=== PATIENT | female | born 1990 | race Caucasian/White ===

== ENCOUNTER 2018-06-21 13:10 | Emergency (ER) | payer SELFPAY ==
[2018-06-21 13:10] VITALS: BP 113/72; PULSE 82; RESP 14; TEMP 36.6; O2SAT 97; BMI 22.8
--- NOTE | 2018-06-21 13:47 | CT_ITS ---
STUDY: CT ABDOMEN AND PELVIS WITH CONTRAST REASON FOR EXAM: Female, 28 years old. Right lower quadrant pain, nausea, and vomiting x1 day RADIATION DOSAGE (If Supplied By Facility): CTDIvol = ( 9.68 ) mGy, DLP = ( 457.50 ) mGycm TECHNIQUE: Transaxial images were obtained from the dome of the diaphragm to the symphysis pubis with oral contrast. 100mL ml of Isovue 300 contrast was administered. Sagittal and coronal images were reconstructed. Individualized dose optimization techniques were used for this CT. COMPARISON: None. FINDINGS: The visualized lung bases are unremarkable. The visualized portions of the heart are within normal limits. There is a subcentimeter low-attenuation focus of the left hepatic lobe most likely representing a cyst. Normal gallbladder and extrahepatic biliary system. Normal spleen. Normal pancreas. Normal bilateral adrenal glands. Normal right kidney. Normal left kidney. Normal visualized stomach. Normal small intestine. Normal colon. The appendix is visualized and appears normal. Normal abdominal aorta. Normal inferior vena cava. Normal retroperitoneum. Normal urinary bladder. There are bilateral ovarian follicular cysts. There is a tiny amount of free fluid in the deep right pelvis. There is a small umbilical hernia containing fat. Normal osseous structures. CT/Abdomen/Pelvis WITH Contrast IMPRESSION: 1. The appendix is normal. 2. There is a tiny amount of free fluid in the deep right pelvis. 3. There is a small fat-containing umbilical hernia. 4. There is a subcentimeter low-attenuation focus of the left hepatic lobe most slightly representing a cyst. Electronically Signed: Claudio Stubbs MD at 16:36 EDT , Service support ,
[2018-06-21] MEDS: 0.9% Normal Saline 1,000 ML 1000 ML IV (14:09)
[2018-06-21 14:14] LABS: Absolute Lymphocyte Count 2.14 X10^3/ul (0.83-4.51); Absolute Neutrophil Count 4.2 X10^3/uL (2.0-7.7); Basophil# 0.02 X10^3/uL; Basophil% 0.3 % (0-1); Eosinophil# 0.05 X10^3/uL; Eosinophils% 0.7 % (0-5); Hematocrit 42.1 % (37-47); Hemoglobin 14.2 g/dl (12.0-15.0); Lymphocyte # 2.14 X10^3/ul (4.0); Lymphocyte % 30.7 % (19-41); Mean Corp Hgb Conc 33.7 g/gl (32-36); Mean Corpuscular Hgb 29.5 pg (27.0-32.0); Mean Corpuscular Volume 87.5 fL (81-99); Mean Platelet Vol. 10.2 fl (6.2-12.0); Monocyte# 0.56 X10^3/uL; Neutrophil # 4.18 X10^3/uL (2.7-7.7); Neutrophil % 60.2 % (47-70); POSITIVE COUNT NO; POSITIVE DIFFERENTIAL NO; POSITIVE MORPHOLOGY NO; Platelet Count 211 K/mm3 (150-450); RBC Distribution Width CV 12.5 % (11.6-14.6); RBC Distribution Width SD 40.5 fl (35.1-43.9); Red Blood Count 4.81 M/mm3 (4.2-5.4)
[2018-06-21 14:24] LABS: Anion Gap 5 (5-15); BUN 10 mg/dL (7-18); BUN/Creat Ratio 14.2 RATIO (10-20); Chloride 106 mmol/L (98-107); EST Glomerular Filtration Rate 106 mL/min (>60); Est Glom Filt Rate - Afr Amer 128 mL/min (>60); Glucose 85 mg/dL (74-106); Potassium 3.9 mmol/L (3.5-5.1); Sodium Level 139 mmol/L (136-145)
[2018-06-21 14:29] LABS: Pregnancy, Serum, hCG Quali. NEGATIVE Negative (0-9 Nonpreg)
[2018-06-21 14:40] LABS: Bacteria 0 SEEN /hpf (None Seen); Red Blood Cells-Urine 0 SEEN /hpf (0-5); White Blood Cells 0 SEEN /hpf (0-5)
[2018-06-21 14:41] LABS: Color, Urine Yellow (Yellow); Glucose, Dipstick Normal (Normal); Ketone-Dipstick Negative (Negative); Leukocyte Esterase-Dipstick Negative /ul (Negative); Nitrite-Dipstick Negative (Negative); Occult Blood-Urine Negative /ul (Negative); Protein-Dipstick Negative (Negative); Specific Gravity, Urine 1.005 (1.002-1.030); Urine Bilirubin Dipstick Negative (Negative); Urine Clarity Clear (Clear); Urine Urobilinogen Normal (Normal)
[2018-06-21 14:46] LABS: Mucous, Urine RARE /hpf (<or=2+); Squamous Epithelial Cells - UA 0-5 SEEN /hpf (5-10)
--- NOTE | 2018-06-21 15:28 | ED.VISSUMM ---
- ER Visit Summary Date of Service: 06/21/18 Chief Complaint: Abdominal pain History of Present Illness: The patient is a [address] [facility] She reports that she has right lower quadrant abdominal pain that began yesterday. It is a sharp pain that is gradually gotten worse. It is 7 out of 10 at worst and 3 out of 10 currently. Is worsened by movement, laying on her stomach, or by position. Is relieved by pushing on it. She has had nausea without vomiting. No diarrhea. Her last bowel was today. No melena or hematochezia. No dysuria or frequency. Last menstrual period was June 01. No vaginal bleeding or discharge. Physical Examination: Vitals: Stable. Afebrile. General: Well-nourished and well-developed. Head: Normocephalic atraumatic. Neck: Supple, no lymphadenopathy. No JVD. Nontender. Cardiovascular: Regular rate and rhythm. No murmurs. Respiratory: No respiratory distress. Clear to auscultation bilaterally. Abdominal: Soft, moderate right lower quadrant tenderness to palpation, nondistended, normal bowel sounds. No guarding, rebound, or peritoneal signs. Back: Nontender. Extremities: Nontender, no edema. Skin: Normal color, no rash. Neurologic: Alert and oriented ?3. Cranial nerves II through XII are intact. Normal strength and sensation. Psych: Normal affect. Test Results: CBC is normal. Chem-7 is normal. UA is negative. test is negative. CT abdomen pelvis with p.o. and IV contrast shows normal appendix. There is a tiny amount of free fluid in the pelvis. Emergency Department Course and Treatment: Patient refused pain or nausea medications. She is resting comfortably. Treatment Plan: Patient will be discharged instructions follow-up her primary care physician 1-2 days if not improving. Return to the emergency department for any worsening symptoms. Disposition: To home in improved and stable condition. Impression: 1. Abdominal pain, uncertain cause. This note was generated with [employer] dictation software. It may contain incorrect words, spelling, and punctuation that were not noted in review of the chart prior to signing ED Disposition - Plan for ED Patient: Chief Complaint: Abd Pain Instructions: ED Abdominal Pain Unkn Cause Referrals: Chuckie Oropeza MD [Primary Care Provider] - 1-2 Days if not improving
[2018-06-21 17:03] VITALS: BP 124/80; PULSE 63; RESP 18; O2SAT 99
== END 2018-06-21 17:04 | disposition home or self-care (01) ==
PROVIDERS: Emergency Provider Emergency Medicine; Family Provider Family Medicine; PCP Family Medicine
DX: R10.31 Right lower quadrant pain (principal); R11.0 Nausea
CPT/HCPCS: 74177; 80048; 81001; 84703; 85025; 99283; J7030; Q9967; A4216

== ENCOUNTER 2018-07-29 17:06 | Emergency (ER) | payer SELFPAY ==
[2018-07-29 17:07] VITALS: BP 119/76; PULSE 92; RESP 14; TEMP 37; O2SAT 99; BMI 22.2
[2018-07-29 18:50] VITALS: PULSE 98; RESP 14
[2018-07-29] MEDS: Ipratropium/Albuterol Sulfate 3 ML AMPUL.NEB INHALATION (18:50)
--- NOTE | 2018-07-29 19:23 | ED.DCSUM_ITS ---
- ER Visit Summary Date of Service: 07/29/18 Chief Complaint: Sore throat and cough History of Present Illness: The patient is a [address] Oropeza. She reports she has sore throat and cough began 5 days ago. Cough is productive yellow sputum without blood. She has had subjective fever and chills. She reports her sore throat is mild now. She has right ear pain. She reports she has substernal chest pain with coughing and deep breaths that is 5 out of 10 now on 410 currently. She reports she has mild shortness of breath, but has not been wheezing. Reports she has had similar symptoms previously bronchitis. She reports the chest pain associated with that then was relieved by an inhaler and that she was not wheezing then either Physical Examination: Vitals: Stable. Afebrile. General: Well-nourished and well-developed. Head: Normocephalic atraumatic. HEENT: Serous effusion on the right. Left TM is normal. Posterior oropharyngeal erythema. No tonsillar enlargement or exudate. No peritonsillar abscess Neck: Supple, no lymphadenopathy. No JVD. Nontender. Cardiovascular: Regular rate and rhythm. No murmurs. Respiratory: No respiratory distress. Clear to auscultation bilaterally. Abdominal: Soft, nontender, nondistended, normal bowel sounds. No guarding, rebound, or peritoneal signs. Back: Nontender. Extremities: Nontender, no edema. Skin: Normal color, no rash. Neurologic: Alert and oriented ?3. Cranial nerves II through XII are intact. Normal strength and sensation. Psych: Normal affect. Test Results: Chest x-ray is normal Emergency Department Course and Treatment: Patient was treated albuterol and Atrovent aerosol. She has had significant relief from this. She states that her chest pain is much better. Treatment Plan: Patient will be discharged on albuterol MDI. Instructed follow- up Dr. Oropeza in 1 week if not improving. Return to the emergency department for any worsening symptoms. Disposition: To home in improved and stable condition. Impression: 1. URI. This note was generated with [employer] dictation software. It may contain incorrect words, spelling, and punctuation that were not noted in review of the chart prior to signing ED Disposition - Plan for ED Patient: Disposition: Home or Assisted Living Chief Complaint: Cough Instructions: ED Upper Resp Infec No Abx Tx Prescriptions: Albuterol Inhaler [Ventolin Hfa] 2 puff INHALATION Q4H PRN PRN #1 inhaler PRN Reason: Wheezing Referrals: Chuckie Oropeza MD [Primary Care Provider] - 1 Week if not improving
[2018-07-29 19:45] VITALS: BP 122/75; PULSE 90; RESP 14; O2SAT 98
== END 2018-07-29 19:55 | disposition home or self-care (01) ==
PROVIDERS: Emergency Provider Emergency Medicine; Family Provider Family Medicine; PCP Family Medicine
DX: J06.9 Acute upper respiratory infection, unspecified (principal); H92.01 Otalgia, right ear
CPT/HCPCS: 71046; 94640; 99282

== ENCOUNTER 2022-12-06 12:07 | Emergency (ER) | payer MEDICAID, SELFPAY ==
[2022-12-06 12:08] VITALS: BP 128/79; PULSE 101; RESP 16; TEMP 36.3; O2SAT 95; BMI 26.5
--- NOTE | 2022-12-06 12:32 | EDS_ITS ---
HPI History of Present Illness Chief Complaint: Dental Detail of Chief Complaint: Dental pain yesterday difficulty opening her mouth today Informant: patient Onset/Context/Timing Onset: Today and Yesterday Context: Sudden Onset Timing: Continuous Quality: Pain, jaw left side Location: Jaw left side Current Severity: Mild (Pain is mild to minimal. Now complains of swelling.) Maximum Severity: Moderate Worsened by: Denies sensitivity to cold or hot liquids Relieved by: NSAIDs and Topicals Associated Symptoms Assocated Symptom - Dental: jaw swelling, face swelling and other; Negative for fever, cold sensitivity or hot sensitivity Narrative Narrative: Patient is a 32-year-old woman with a [id number] and 4-month-old at home. She presents because of dental pain that started yesterday. She localizes pain to the left side of her jaw. She presents today because of difficulty speaking, swallowing and opening and closing her mouth. She complains of pain that she localizes submandibular region. She has not had drooling. She denies throat pain. She denies anterior posterior neck pain. There is no history of medic fever, heart murmur, mitral prolapse or being on immunosuppressive meds. She drove her self to the hospital. She has not noted a rash. Prior similar symptoms: No Recent Illness/Hospitalization: No PFSH PFSH Medical History no medical history no medical history Home Medications albuterol sulfate 90 mcg/actuation aerosol inhaler (Ventolin HFA) 2 puff inhalation Q4H PRN PRN Wheezing ##1 07/29/18 [Rx Last Taken Unknown] ibuprofen 600 mg tablet 600 mg PO Q6H PRN PRN pain #20 TABLETS 12/06/22 [Rx Last Taken Unknown] penicillin V potassium 250 mg tablet 500 mg PO 4X/DAY #28 tabs 12/06/22 [Rx Last Taken Unknown] Allergy/AdvReac Type Severity Reaction Status Date / Time No Known Allergies Allergy Verified 12/06/22 12:10 Social History (Updated 12/06/22 @ 12:[address] Mynor Rivers MD) household members: children Smoking Status: Never smoker substance use type: does not use ROS ROS ED Constitutional Constitutional ED: Denies chills, fever(s), subjective, sweats or weight loss Eyes Eyes: Denies blurry vision or change in vision ENT ENT ED: Reports other Details: Per HPI narrative ; Denies ear pain, rhinorrhea or sore throat Cardiovascular Cardiovascular: Denies chest pain or palpitations Respiratory/Chest Respiratory/Chest: Denies cough, dyspnea or dyspnea on exertion Gastrointestinal Gastrointestinal: Denies nausea or vomiting Musculoskeletal Musculoskeletal: Denies arthralgias, back pain, myalgias or neck pain Integumentary Denies abscess or rash Neurologic Neurologic: Denies headache(s) or paresthesias Hematologic/Lymphatic Hematologic/Lymphatic: Denies easy bleeding or easy bruising EXAM Physical Exam Const Vital Signs: 12/06/22 12:08 Temperature 97.3 F L Temperature Source Temporal Pulse Rate 101 H Respiratory Rate 16 Blood Pressure 128/79 H Blood Pressure Mean 95 Pulse Ox 95 Oxygen Delivery Method Room Air Positive well nourished and well developed General Appearance ED: well developed and NAD HEENT HEENT Narrative: Head is atraumatic normocephalic. Ears normal. Nares patent. Patient has evidence of dental caries. There is trismus. Unable to place my index finger between her incisors. There is tenderness over the left TMJ. There is a submandibular lymph node noted on the left. There is no drooling. The portion of the posterior pharynx that was visualized is normal. Face and Sinus: Negative for sinuses nontender Mouth ED: Yes lips normal, Yes tongue normal, Yes salivary gland normal, No mouth trauma and Yes oral and palatal mucosa abnormal Mouth: lips normal, tongue normal, salivary gland normal, No mouth trauma and oral and palatal mucosa abnormal Teeth and Gingiva: abnormal tooth and associated gingiva and caries; Negative for gingiva abnormal or teeth discoloration Eyes PERRL and EOMs intact bilaterally Eyes Narrative: There is no pain with movement of eyes. General Eye ED: Negative for pale conjunctiva or scleral icterus Neck no lymphadenopathy, supple and no JVD MDM MDM MDM Narrative Medical decision making narrative: Patient has trismus due to dental infection. There is no drooling. There is no inspiratory stridor. There is no concern clinically for Ludewig's angina. White count was obtained is unremarkable. Patient declined opiate analgesics. She was treated with IV Toradol and Unasyn. Patient is able to open her mouth much more than she was. She was reassessed at 1310. This was shortly after she got the pain medicine. She was reassessed at 1321. She states the pain is subsided but still present. She is able to open her mouth slightly more. She was reassessed at 1345. Patient is able to open her mouth and I am able to place 2 fingers between her incisors. Since there is no drooling there is no stridor there is no firmness submental area or floor the mouth we will discharged home with antibiotics and pain medicine. She was given dental sheet for follow-up. She also has did charge with prescription for clindamycin and NSAIDs and she has no contraindication. She is not presently breast-feeding. Lab Data Labs: Laboratory Results - last 24 hr 12/06/22 12:33 WBC 8.7 RBC 5.14 Hgb 14.7 Hct 44.6 MCV 86.8 MCH 28.6 MCHC 33.0 RDW Std Deviation 41.2 RDW Coeff of Lance 13.1 Plt Count 324 MPV 9.9 Immature Gran % (Auto) 0.600 Neut % (Auto) 74.7 H Lymph % (Auto) 18.6 L [place] % (Auto) 5.7 Eos % (Auto) 0.3 Baso % (Auto) 0.1 Absolute Neuts (auto) 6.5 Absolute Lymphs (auto) 1.62 Nucleated RBC % 0 Discharge Plan Triage Chief Complaint: Dental ED Provider: Mynor Rivers Dx/Rx/DC Orders Clinical Impression: Abscess, dental, Trismus, Dental caries extending into dentine Instructions: Dental Abscess Prescriptions: New ibuprofen 600 mg tablet 600 mg PO Q6H PRN PRN (Reason: pain) Qty: 20 0RF penicillin V potassium 250 mg tablet 500 mg PO 4X/DAY Qty: 28 0RF No Action albuterol sulfate [Ventolin HFA] 1 INHALER inhaler 2 puff inhalation Q4H PRN PRN (Reason: Wheezing) Qty: 1 0RF Primary Care Provider: Chuckie Oropeza Referrals: Chuckie Oropeza MD [Primary Care Provider] - Dentist,Your [STAFF PHYSICIAN] - 3-5 Days Activity Restrictions/Additional Instructions: If you have drooling, difficulty breathing return to the emergency department immediately Disposition Disposition: Home, Self Care
[2022-12-06] MEDS: Ketorolac 15 MG/ML Vial IV (12:39)
[2022-12-06 12:42] LABS: Absolute Lymphocyte Count 1.62 X10^3/uL (0.83-4.51); Absolute Neutrophil Count 6.5 X10^3/uL (2.0-7.7); Basophil# 0.01 X10^3/uL; Basophil% 0.1 % (0-1); Eosinophil# 0.03 X10^3/uL; Eosinophils% 0.3 % (0-5); Hematocrit 44.6 % (37-47); Hemoglobin 14.7 g/dL (12.0-15.0); Lymphocyte # 1.62 X10^3/ul (0.83-4.51); Lymphocyte % 18.6 % (19-41); Mean Corpuscular Hgb 28.6 pg (27.0-32.0); Mean Corpuscular Volume 86.8 fL (81-99); Mean Platelet Vol. 9.9 fl (6.2-12.0); Monocyte% 5.7 % (0-10); NRBC Flagged by Analyzer 0 % (0-5); Neutrophil # 6.52 X10^3/uL (2.7-7.7); Neutrophil % 74.7 % (47-70); Platelet Count 324 K/mm3 (150-450); RBC Distribution Width CV 13.1 % (11.6-14.6); RBC Distribution Width SD 41.2 fl (35.1-43.9); Red Blood Count 5.14 M/mm3 (4.2-5.4); White Blood Count 8.7 K/mm3 (4.4-11.0)
[2022-12-06 14:18] VITALS: RESP 14
== END 2022-12-06 14:18 | disposition home or self-care (01) ==
PROVIDERS: Emergency Provider Emergency Medicine; PCP Family Medicine; Visit Provider Emergency Medicine
DX: K04.7 Periapical abscess without sinus (principal); K02.9 Dental caries, unspecified; R68.84 Jaw pain; R47.9 Unspecified speech disturbances; R21 Rash and other nonspecific skin eruption; R25.2 Cramp and spasm
CPT/HCPCS: 85025; 96365; 96375; 99283; A4216; J0295

== ENCOUNTER 2025-03-10 06:12 | Emergency (ER) | payer MEDICAID, SELFPAY ==
[2025-03-10 06:13] VITALS: BP 121/76; PULSE 77; RESP 17; TEMP 36.6; O2SAT 99; BMI 32.0
[2025-03-10 06:33] LABS: Hematocrit 41.3 % (37-47); Mean Corp Hgb Conc 33.9 g/dL (32-36); Mean Corpuscular Hgb 29.7 pg (27.0-32.0); Mean Corpuscular Volume 87.5 fL (81-99); Mean Platelet Vol. 9.8 fl (6.2-12.0); POSITIVE COUNT YES; POSITIVE MORPHOLOGY YES; Platelet Count 299 K/mm3 (150-450); RBC Distribution Width CV 13.3 % (11.6-14.6); RBC Distribution Width SD 42.8 fl (35.1-43.9); Red Blood Count 4.72 M/mm3 (4.2-5.4); White Blood Count 11.2 K/mm3 (4.4-11.0)
[2025-03-10 06:34] LABS: Differential Indicated MANUAL DIFF
[2025-03-10] MEDS: Ketorolac 15 MG/ML Vial IV (06:40)
[2025-03-10 06:49] LABS: Anion Gap 11 (5-15); BUN 16 mg/dL (4-19); BUN/Creat Ratio 17.6 RATIO (10-20); CPK Total, Creatine Kinase 127 U/L (24-195); Calcium,Total 8.4 mg/dL (7.6-11.0); Carbon Dioxide 24.6 mmol/L (21.0-32.0); Chloride 103 mmol/L (98-108); EST Glomerular Filtration Rate 86 (>60); Estimated Creatinine Clearance 92.74 ml/min (50-250); Glucose 114 mg/dL (70-99); Magnesium 2.4 mg/dL (1.5-2.2); Potassium 3.5 mmol/L (3.3-5.1); Sodium Level 139 mmol/L (133-145)
--- NOTE | 2025-03-10 06:53 | EDS_ITS ---
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 Patient states she woke up and was having severe pain in her bilateral legs. She woke up at 3 AM. She states she could not walk and fell because the pain was so bad. She was the left leg is worse than the right. She denies any trauma or injury. She describes the pain as severe and crushing. She states it seems to start in her mid thighs bilaterally and work its way down. She is not sure if she has any swelling of her legs. She denies associated numbness. Denies any bowel or bladder incontinence. She denies any fever or chills. She states she moved to [place] yesterday the family. She is never any like this before. Did not take anything for symptoms prior arrival. No other complaints or concerns at this time. [facility] Medical History Bipolar disorder Gestational diabetes delivery delivered Breast abscess Home Medications ?Medication ?Instructions ?Recorded ?Last Taken ?Type albuterol sulfate 90 mcg/actuation 2 puff inhalation Q 4H PRN PRN 07/29/18 Unknown Rx aerosol inhaler (Ventolin HFA) Wheezing ##1 clonazepam 1 mg tablet 1 mg PO DAILY PRN anxiety Unknown History epinephrine 0.3 mg/0.3 mL ml IM 03/10/25 Unknown Histo ry injection, auto-injector escitalopram oxalate 20 mg tablet 20 mg PO DAILY 03/10 Unknown History famotidine 20 mg tablet 20 mg PO BID 03/10/25 Unknow n History lamotrigine 200 mg tablet 200 mg PO DAILY 03/10/25 Unk nown History risperidone 0.5 mg tablet 0.5 mg PO QHS 03/10/25 Unkno wn History Allergy/AdvReac Type Severity Reaction Status Date / Time cephalexin AdvReac Rash Verified 03/10/25 06:15 clindamycin AdvReac Rash Verified 03/10/25 06:15 doxycycline AdvReac Rash Verified 03/10/25 06:15 vancomycin AdvReac Rash Verified 03/10/25 06:15 Social History household members: children Smoking Status: Never smoker substance use type: does not use ROS ROS ED Constitutional Constitutional ED: Denies chills or fever(s) Respiratory/Chest Respiratory/Chest: Denies cough or dyspnea Gastrointestinal Gastrointestinal: Denies nausea or vomiting Musculoskeletal Musculoskeletal: Reports myalgias and other Details: Bilateral lower leg pain Integumentary Denies rash Neurologic Neurologic: Denies paresthesias or weakness Hematologic/Lymphatic Hematologic/Lymphatic: Denies easy bleeding or easy bruising EXAM Physical Exam Const Vital Signs: 03/10/25 06:13 Temperature 98 F Temperature Source Temporal Pulse Rate 77 Respiratory Rate 17 Blood Pressure 121/76 H Blood Pressure Mean 91 Pulse Ox 99 Oxygen Delivery Method Room Air Positive well nourished and well developed General Appearance ED: well developed and NAD HEENT Reports moist mucous membranes HEENT Narrative: No facial swelling present normocephalic and atraumatic Neck supple Chest Wall inspection of chest normal Resp normal respiratory effort and clear to auscultation bilaterally Cardio regular rate and regular rhythm GI non-tender and non-distended Extremity normal to inspection Extremity Narrative: Patient is no obvious deformity of the extremities. No swelling. 2+ DP pulses present. Able to wiggle her toes. Has difficulty with movement of the legs but states is because it is too painful. No rash appreciated. No palpable cords. No edema. Neuro oriented x3, moves all extremities and no sensory deficits noted Sensorium / Orientation: alert Deep Tendon Reflexes: Rt Patellar (L4): 2+ and Lt Patellar (L4): 1+ Deep Tendon Reflexes Back: Rt Patellar (L4): 2+ and Lt Patellar (L4): 1+ Plantar Reflex: Downgoing: bilateral Psych mental status grossly normal Mood & Affect: anxious Skin no wounds Skin Narrative: Multiple bruises on the upper arms consistent with prior IVs MDM MDM MDM Narrative Medical decision making narrative: Patient evaluated for severe lower extremity pain without any trauma. Her physical exam is relatively benign. She has had multiple frequent ER visits and hospitalizations at [facility] however they have been for allergic reactions (at this point it seems that there is suspicion that this is more chronic idiopathic urticaria and not true allergic reactions). Differential includes muscle skeletal pain, DVT, Electrolyte abnormality, rhabdomyolysis. Patient is given Toradol for pain as she has not take anything prior to arrival. Compartments are soft suspicion for compartment syndrome. She has good distal pulses and suspicion for acute vascular abnormality. She does not claim any associate abdominal pain or back pain. No cauda equina syndromes. She does not have any numbness or weakness low suspicion for Gullian [place] syndrome. On repeat evaluation patient states she still having pain but she does seem a bit more comfortable and is moving her legs more freely after the Toradol. Will give Tylenol. Given that she does not have an obvious cause of her pain I do not think opioids are indicated at this time. Will obtain venous duplex. Anticipate this is normal will ambulation trial the patient to be discharged home. Patiently signed out to oncoming physician pending ultrasound results and final disposition. Lab Data Attestation: I reviewed the patient's lab results. Labs: Laboratory Results - last 24 hr 03/10/25 06:20 WBC 11.2 H RBC 4.72 Hgb 14.0 Hct 41.3 MCV 87.5 MCH 29.7 MCHC 33.9 RDW Std Deviation 42.8 RDW Coeff of Lance 13.3 Plt Count 299 MPV 9.8 Neut % (Auto) Not Reportable Absolute Neuts (auto) 6.4 Absolute Lymphs (auto) 3.92 Total Counted 100 Neutrophils % (Manual) 54 Band Neutrophils % 3 Lymphocytes % (Manual) 35 Monocytes % (Manual) 6 Eosinophils % (Manual) 2 Platelet Estimate ADEQUATE RBC Morphology NORM C+C Sodium 139 Potassium 3.5 Chloride 103 Carbon Dioxide 24.6 Anion Gap 11 BUN 16 Creatinine 0.90 Estim Creat Clear Calc 92.74 Est GFR (MDRD) Non-Af 86 BUN/Creatinine Ratio 17.6 Glucose 114 H Calcium 8.4 Magnesium 2.4 H Total Creatine Kinase 127 Discharge Plan Triage Chief Complaint: Lower Extremity Injury ED Provider: Araseli Pruett Dx/Rx/DC Orders Clinical Impression: Bilateral lower extremity pain Prescriptions: No Action albuterol sulfate [Ventolin HFA] 1 INHALER inhaler 2 puff inhalation Q4H PRN PRN (Reason: Wheezing) Qty: 1 0RF lamotrigine 200 mg tablet 200 mg PO DAILY clonazepam 1 mg tablet 1 mg PO DAILY PRN (Reason: anxiety) famotidine 20 mg tablet 20 mg PO BID epinephrine 0.3 mg/0.3 mL auto-injector IM risperidone 0.5 mg tablet 0.5 mg PO QHS escitalopram oxalate 20 mg tablet 20 mg PO DAILY Primary Care Provider: Care Physician,No Primary Referrals: Care Physician,No Primary [Primary Care Provider] - Print Language: Thai
--- NOTE | 2025-03-10 07:02 | VDLE_ITS ---
Reason For Study Reason For Study: Bilateral leg pain RIGHT LEFT GSV is normal. GSV is normal. CFV is compressible, spontaneous, phasic, competent CFV is compressible, spontaneous, phasic, competent, and demonstrates normal augmentation. and demonstrates normal augmentation. FV is compressible, spontaneous, phasic, competent FV is compressible, spontaneous, phasic, competent and demonstrates normal augmentation. and demonstrates normal augmentation. POP V is compressible, spontaneous, phasic, competent POP V is compressible, spontaneous, phasic, competent and demonstrates normal augmentation. and demonstrates normal augmentation. T/P Trunk is compressible. T/P Trunk is compressible. PTV is compressible. PTV is compressible. RT PerV is compressible. LT PerV is compressible. Procedure This is a venous duplex using B-mode, color flow and spectral Doppler. Exam performed portable in ED. A preliminary report was called and/or faxed to Marisela BRADLEY. VL/Venous Duplex US - Ammon Extrem Interpretation Summary Deep veins of the lower extremities are bilaterally patent and compressible seg mentally. There is no evidence of deep vein thrombosis on either side. Valvular competence appears intact within the p roximal deep venous systems bilaterally. The great saphenous veins appear bilaterally patent and compressible segmentall y. Ordering Physician: Araseli Pruett Performed By: Korina Jain RVT
[2025-03-10 07:10] LABS: Eosinophil 2 % (0-5); Lymphocyte 35 % (19-41); Monocyte 6 % (0-10); Neutrophil-Band 3 % (0-5); Neutrophil-Segmented 54 % (47-70); Total Cells Counted 100 (MANUAL DIFF)
[2025-03-10 07:11] LABS: Absolute Neutrophil Count 6.4 X10^3/uL (2.0-7.7); Platelet Estimate ADEQUATE (ADEQ); Red Cell Morphology NORM C+C NORMAL (NORM C&C)
[2025-03-10 07:12] LABS: Absolute Lymphocyte Count 3.92 X10^3/uL (0.83-4.51)
[2025-03-10] MEDS: Acetaminophen 325 MG Tablet 650 MG PO (07:16)
[2025-03-10 08:13] VITALS: BP 100/50; PULSE 86; RESP 18; O2SAT 99
[2025-03-10 08:14] LABS: Erythrocyte Sedimentation Rate 8 mm/hr (0-30)
[2025-03-10 09:14] LABS: CRP 5.98 mg/L (0.0-3.0)
[2025-03-10 09:31] VITALS: BP 112/64; PULSE 75; RESP 16; TEMP 36.7; O2SAT 98
== END 2025-03-10 09:42 | disposition home or self-care (01) ==
PROVIDERS: Emergency Medicine; Emergency Provider Emergency Medicine; Visit Provider Emergency Medicine
DX: M79.661 Pain in right lower leg (principal); F31.9 Bipolar disorder, unspecified; M79.662 Pain in left lower leg; F41.9 Anxiety disorder, unspecified; Z79.899 Other long term (current) drug therapy
CPT/HCPCS: 80048; 82550; 83735; 85025; 85652; 86140; 93970; 96374; 99282; A4216

== ENCOUNTER 2025-09-27 05:18 | Emergency (ER) | payer MEDICAID, SELFPAY ==
[2025-09-27 05:19] VITALS: BP 137/79; PULSE 79; RESP 18; TEMP 36.4; O2SAT 98; BMI 37.6
--- NOTE | 2025-09-27 05:38 | EX.ED.DYSGE1 ---
HPI History of Present Illness Chief Complaint: Edema Informant: patient Narrative Narrative: Patient is a 35-year-old female with past medical history of bipolar disorder. She states that she went to bed feeling normal and then awoke a few hours prior to arrival with right lower jaw swelling and pain. She denies any recent trauma. She denies any fevers or chills. She denies any change in voice or difficulty with secretions. However with the quick onset of swelling and pain she is concerned for potential infection or progression to closure of her airway so she presents for evaluation [facility] Medical History Bipolar disorder Gestational diabetes delivery delivered Breast abscess Home Medications ?Medication ?Instructions ?Recorded ?Last Taken ?Type epinephrine 0.3 mg/0.3 mL 0.3 ml IM PRN anaphylaxis 03/10/25 Unknown History injection, auto-injector escitalopram oxalate 20 mg tablet 20 mg PO DAILY 03/10/25 Unknown History lamotrigine 200 mg tablet 200 mg PO DAILY 03/10/25 Unknown History risperidone 0.5 mg tablet 0.5 mg PO QHS 03/10/25 Unknown History amoxicillin 875 mg-potassium 1 tab PO BID 7 days #14 tabs 09/27/25 Unknown Rx clavulanate 125 mg tablet divalproex 500 mg tablet,extended 2,000 mg PO QPM 09/27/25 Unknown History release 24 hr oxycodone-acetaminophen 5 mg-325 1 tab PO Q6H PRN pain 3 days #12 09/27/25 Unknown Rx mg tablet (Percocet) tabs Allergy/AdvReac Type Severity Reaction Status Date / Time cephalexin AdvReac Rash Verified 09/27/25 05:23 clindamycin AdvReac Rash Verified 09/27/25 05:23 doxycycline AdvReac Rash Verified 09/27/25 05:23 vancomycin AdvReac Rash Verified 09/27/25 05:23 Social History household members: children Smoking Status: Never smoker substance use type: does not use ROS ROS ED Constitutional Constitutional ED: Denies chills or fever(s) ENT ENT ED: Reports other Details: Positive right sided facial swelling and pain ; Denies sore throat Cardiovascular Cardiovascular: Denies chest pain Respiratory/Chest Respiratory/Chest: Denies cough or dyspnea Gastrointestinal Gastrointestinal: Denies abdominal pain, diarrhea, nausea or vomiting Musculoskeletal Musculoskeletal: Denies myalgias or neck pain Integumentary Denies rash Neurologic Neurologic: Denies headache(s) Psychiatric Psychiatric: Reports anxiety Hematologic/Lymphatic Hematologic/Lymphatic: Denies easy bleeding or easy bruising Allergic/Immunologic Allergic/Immunologic ED: Denies mouth swelling or tongue swelling EXAM Physical Exam Const Vital Signs: 09/27/25 05:19 09/27/25 05:23 09/27/25 05:49 Temperature 97.6 F L 97.8 F Temperature Source Oral Pulse Rate 79 72 Respiratory Rate 18 16 Respiratory Effort Normal Respiratory Pattern Normal Blood Pressure 137/79 H 115/71 Blood Pressure Mean 98 85 Pulse Ox 98 97 Oxygen Delivery Method Room Air Positive well nourished and well developed General Appearance ED: well developed; Negative for pallor HEENT HEENT Narrative: Normocephalic atraumatic There is soft tissue swelling along the right anterior lateral lower jaw near the salivary gland. There is pain with palpation at the site. No overlying erythema or warmth. No active discharge or lymphangitic streaking No tongue or lip swelling noted No trismus change in voice or difficulty with secretions No obvious dental abscess present No signs of ANUG Posterior pharynx reveals no secondary findings to suggest infection Eyes PERRL and EOMs intact bilaterally Neck supple Resp normal respiratory effort and clear to auscultation bilaterally Cardio regular rate and regular rhythm Extremity normal to inspection Neuro oriented x3, CN's II-XII intact bilaterally and no sensory deficits noted Sensorium / Orientation: alert Motor Exam: strength 5/5 throughout Psych mental status grossly normal Skin Skin Narrative: Soft tissue swelling in the right jaw/salivary gland region as documented above General Skin Exam: Negative for jaundice or pallor MDM MDM MDM Narrative Medical decision making narrative: Patient arrived to ER with stable vitals. She reported facial swelling and physical exam localizes it to the right lower jaw which could indicate potential developing abscess or sialoadenitis. She does not have tongue or lip swelling to suggest anaphylaxis or angioedema. Internal oral cavity exam reveals no signs of dental abscess there is no sign of posterior pharynx infection such as peritonsillar abscess or strep throat. She can swallow secretions without difficulty and has no change in voice and I have low concern for epiglottitis. At this time I feel she most likely has developing sialoadenitis there could be potential dental infection as well as she does have scant dental caries. I feel the safest option is to place her on Augmentin as this will cover both infectious sialoadenitis and early dental abscess. She will also be advised to suck on sour tart candies because if there is a stone causing obstruction of Stensen's duct this would cause the inflammation and salivary gland as well and will help resolve this. At this time over as there is no obvious signs of airway compromise or edema I do not feel she warrants a CT of the neck or laboratory studies and is otherwise safe for discharge History & Record Review Discussion w/independent historian: Patient Discharge Plan Triage Chief Complaint: Edema ED Provider: Kam Em Dx/Rx/DC Orders Clinical Impression: Acute sialoadenitis, Bipolar disorder Instructions: ED Salivary Gland Infection, ED Salivary Gland Stones Prescriptions: New amoxicillin-pot clavulanate 875-125 mg tablet 1 tab PO BID 7 Days Qty: 14 0RF oxycodone-acetaminophen [Percocet] 5-325 mg tablet 1 tab PO Q6H PRN (Reason: pain) 3 Days Qty: 12 0RF No Action lamotrigine 200 mg tablet 200 mg PO DAILY epinephrine 0.3 mg/0.3 mL auto-injector 0.3 ml IM PRN (Reason: anaphylaxis) risperidone 0.5 mg tablet 0.5 mg PO QHS escitalopram oxalate 20 mg tablet 20 mg PO DAILY divalproex 500 mg tablet extended release 24 hr 2,000 mg PO QPM Primary Care Provider: Care Physician,No Primary Referrals: Luis Lara MD [Med Staff - Active Staff, Family Practice] Care Physician,No Primary [Primary Care Provider, Medical] Activity Restrictions/Additional Instructions: Your history and exam indicate that your pain and swelling is due to either an infected or blocked salivary gland. Take the prescribed antibiotic as directed to help resolve any potential infection as the cause of your symptoms. Suck on tart sour candies to help remove/dislodge any potential stone causing your symptoms. Use the prescribed pain medication as directed for pain relief. Return to the ER should you have any further concerns or worsening of symptoms Print Language: Yi Disposition Disposition: Home, Self Care Discharge Date/Time: 09/27/25 05:52
[2025-09-27 05:49] VITALS: BP 115/71; PULSE 72; RESP 16; TEMP 36.6; O2SAT 97
== END 2025-09-27 05:52 | disposition home or self-care (01) ==
PROVIDERS: Emergency Provider Emergency Medicine; Visit Provider Emergency Medicine
DX: K11.21 Acute sialoadenitis (principal); F31.9 Bipolar disorder, unspecified; K02.9 Dental caries, unspecified; Z79.899 Other long term (current) drug therapy
CPT/HCPCS: 99283

== ENCOUNTER 2025-10-03 17:59 | Emergency (ER) | payer MEDICAID, SELFPAY ==
[2025-10-03 18:00] VITALS: BP 123/78; PULSE 105; RESP 16; TEMP 36.6; O2SAT 100; BMI 36.6
[2025-10-03 19:33] VITALS: BP 115/80; PULSE 93; RESP 16; TEMP 36.8; O2SAT 98
--- NOTE | 2025-10-03 19:33 | ED.VIS.DENTA ---
HPI History of Present Illness Chief Complaint: Dental Detail of Chief Complaint: Dental pain Informant: patient Narrative Narrative: Patient presents with right lower dental pain that she has had for several days. She was seen in the emergency department recently and started on Augmentin and something for pain. Initially she got better over the 2 days and then ran out of her pain medicine. The swelling that she felt in the back of her mouth returned. She also had vomiting and diarrhea for a couple of days and fever up to 102 at home. Patient has not followed up with a dentist. [facility] Medical History Bipolar disorder Gestational diabetes delivery delivered Breast abscess Home Medications Medication Instructions Recorded Last Taken Type epinephrine 0.3 mg/0.3 mL 0.3 ml IM PRN anaphylaxis 03/10/25 Unknown History injection, auto-injector escitalopram oxalate 20 mg tablet 20 mg PO DAILY 03/10/25 Unknown History lamotrigine 200 mg tablet 200 mg PO DAILY 03/10/25 Unknown History risperidone 0.5 mg tablet 0.5 mg PO QHS 03/10/25 Unknown History amoxicillin 875 mg-potassium 1 tab PO BID 7 days #14 tabs 09/27/25 Unknown Rx clavulanate 125 mg tablet divalproex 500 mg tablet,extended 2,000 mg PO QPM 09/27/25 Unknown History release 24 hr oxycodone-acetaminophen 5 mg-325 1 tab PO Q6H PRN pain 3 days #12 09/27/25 Unknown Rx mg tablet (Percocet) tabs hydrocodone-acetaminophen 5-325mg 1 tab PO Q4H PRN PRN Pain 2 days 10/03/25 Unknown Rx 5mg-325mg #14 TABLETS Allergy/AdvReac Type Severity Reaction Status Date / Time cephalexin AdvReac Rash Verified 10/03/25 18:01 clindamycin AdvReac Rash Verified 10/03/25 18:01 doxycycline AdvReac Rash Verified 10/03/25 18:01 vancomycin AdvReac Rash Verified 10/03/25 18:01 Social History household members: children Smoking Status: Never smoker substance use type: does not use ROS ROS ED Review of Systems ROS Unobtainable: other Constitutional Constitutional ED: Reports lethargy; Denies chills, fever(s), sweats or weight loss Eyes Eyes: Denies blurry vision, change in vision or diplopia ENT ENT ED: Reports other Details: Dental pain ; Denies rhinorrhea or sore throat Cardiovascular Cardiovascular: Denies chest pain, orthopnea or racing heartbeat Respiratory/Chest Respiratory/Chest: Denies cough, dyspnea, dyspnea on exertion, orthopnea or sputum Gastrointestinal Gastrointestinal: Denies abdominal pain, diarrhea, nausea or vomiting Genitourinary Genitourinary ED: Denies dysuria, hematuria or urinary frequency Musculoskeletal Musculoskeletal: Denies arthralgias, back pain, myalgias or neck pain Integumentary Denies abscess, Abrasions or rash Neurologic Neurologic: Denies headache(s) or weakness Psychiatric Psychiatric: Denies anxiety, depression or suicidal thoughts Endocrine Endocrinology: Denies polydipsia, polyphagia or polyuria Hematologic/Lymphatic Hematologic/Lymphatic: Denies easy bleeding, easy bruising or lymphadenopathy Allergic/Immunologic Allergic/Immunologic ED: Denies mouth swelling, tongue swelling or urticaria EXAM Physical Exam Const Vital Signs: 10/03/25 18:00 Temperature 97.8 F Temperature Source Oral Pulse Rate 105 H Respiratory Rate 16 Blood Pressure 123/78 H Blood Pressure Mean 93 Pulse Ox 100 Positive well nourished and well developed General Appearance ED: well developed and NAD HEENT Reports TM's clear and moist mucous membranes HEENT Narrative: Dentition-patient has tenderness palpation to tooth #36. Just beyond the molar there was some soft tissue swelling/inflammation between the upper and lower gingiva. This is not fluctuant and it is somewhat firm to palpation and irritated. I do not think this is an abscess but rather irritated mucosal tissue. No other dental abscess noted. She does have some tenderness to tooth #36. She has no facial cellulitis or trismus normocephalic and atraumatic; Negative for trauma or tenderness Tympanic Membrane ED: Yes TM's clear Eyes PERRL and EOMs intact bilaterally General Eye ED: Negative for pale conjunctiva or scleral icterus Neck no lymphadenopathy, supple and no JVD General: Negative for tenderness Chest Wall inspection of chest normal and palpation of chest normal Chest: Negative for tenderness Resp normal respiratory effort and clear to auscultation bilaterally Effort and Inspection: Negative for respiratory distress or pain with movement Auscultation: Negative for rhonchi, wheezes or diminished lung sounds Cardio regular rate, regular rhythm, S1 normal heart sound, S2 normal heart sound and no murmurs Peripheral Pulses: pulses 2+ throughout GI normal to inspection, nondistended, normoactive bowel sounds, soft to palpation, non-tender, non-distended and no masses Back/Spine no CVA tenderness and no thoracic nor lumbar tenderness Extremity normal to inspection General Extremety ED: Negative for edema General Extremity: Negative for edema Neuro oriented x3, CN's II-XII intact bilaterally, no sensory deficits noted and gait normal Sensorium / Orientation: awake, alert, oriented to person, oriented to place and oriented to time Motor Exam: strength 5/5 throughout and strength abnormal Psych mental status grossly normal Skin no rashes or lesions noted and no wounds MDM MDM MDM Narrative Medical decision making narrative: Patient presents with dental pain. Was concerned about an abscess. I do not appreciate 1 on exam. I recommend she continue with the antibiotic and I will write her prescription for [place] for pain. Advised her to follow-up with dentist for repeat evaluation within next 3 to 5 days. Discharge Plan Triage Chief Complaint: Dental ED Provider: Tamir Leon Dx/Rx/DC Orders Clinical Impression: Pain, dental Instructions: ED Dental Pain Prescriptions: New hydrocodone-acetaminophen 5-325 mg tablet 1 tab PO Q4H PRN PRN (Reason: Pain) 2 Days Qty: 14 0RF No Action lamotrigine 200 mg tablet 200 mg PO DAILY epinephrine 0.3 mg/0.3 mL auto-injector 0.3 ml IM PRN (Reason: anaphylaxis) risperidone 0.5 mg tablet 0.5 mg PO QHS escitalopram oxalate 20 mg tablet 20 mg PO DAILY divalproex 500 mg tablet extended release 24 hr 2,000 mg PO QPM amoxicillin-pot clavulanate 875-125 mg tablet 1 tab PO BID 7 Days Qty: 14 0RF oxycodone-acetaminophen [Percocet] 5-325 mg tablet 1 tab PO Q6H PRN (Reason: pain) 3 Days Qty: 12 0RF Primary Care Provider: Care Physician,No Primary Referrals: Care Physician,No Primary [Primary Care Provider, Medical] Activity Restrictions/Additional Instructions: Follow-up with a dentist within the next 3 to 5 days. Print Language: Telugu Disposition Disposition: Home, Self Care
[2025-10-03 19:43] VITALS: BP 115/80; PULSE 93; RESP 16; TEMP 36.8; O2SAT 98
[2025-10-03] MEDS: HYDROcodone Bitartrate/Apap 5/325 Tablet PO (19:46)
--- OUTSIDE RECORDS SUMMARY | 2025-10-03 19:47 | XMS RPT_ITS | CCD ---
Author Organization [facility] Care Team Providers Care Space Buyer Name Role Phone Required, No Pcp Unavailable Unavailable Rojelio Dao Unavailable Unavailable Primary Care Provider Unavailabl e Unavailable Primary Care Provider Unavailabl e Unavailable Primary Care Provider Unavailabl e Unavailable Primary Care Provider Unavailabl e Maile Beaver MD A Primary Care Provider Unavailable Primary Care Provider Unavailabl e Unavailable Primary Care Provider Unavailabl e Maile Beaver MD A Primary Care Provider [phone] Unavailable Primary Care Provider Unavailabl e Care Physician, No Primary Primary Care Provider Unavailable Dr. Araseli Babb DO Emergency Provider [phone] HANNAH THOMPSONRIA Referring Unavailable LUCAS, YAJAIRA Admitting Unavailable LUCAS, YAJAIRA Attending Unavailable PAVEL VAZQUEZINO Referring Unavailable GWENDOLYN MOHANNAD Admitting Unavailable ABBEY, DURAN Consulting Unavailable DELMI ROSENTHAL Attending Unavailable LEBRON GUDINO Referring Unavailable SIXTO KAPADIA Admitting Unavailable SUAD ANGLIN Attending Unavailable JAMEE, K Consulting Unavailable ADELFO VAZQUEZ Attending Unavailable ADELFO VAZQUEZ Attending Unavailable TRINITY KUMAR Attending Unavailable LOLITA DE DIOS Admitting Unavailable KLEB, CERISE A Primary Care Unavailable SELF Referring Unavailable KLEB, CERISE A Primary Care Unavailable KLEB, CERISE A Primary Care Unavailable DAKOTA GUZMAN Referring Unavailable JAJA MOSS Attending Unavailable KLEB, CERISE A Primary Care Unavailable KLEB, CERISE A Primary Care Unavailable ERICK SMITHIN Admitting Unavailable CRISTEL DOBBINS Attending Unavailabl e EDWARD, YO K Attending Unavailable ARASELI BABB Attending Unavailable CHUCKIE WATT Attending Unavailable SABINA SKINNER Attending UnavailDAKOTA Martinez Referring Unavailable JAJA MOSS Attending Unavailable JOSIE MEADOWS Attending Unavailable ADELFO VAZQUEZ Attending Unavailable SISSY FELTON Attending Unavailable STACY, TRINITY BROWN Referring Unavailable KLEB, CERISE A Primary Care Unavailable KLEB, CERISE A Primary Care Unavailable SELF Referring Unavailable TERENCE JOHNSON Attending Unavailable JOSIE JACK Attending Unavailable KLEB, CERISE A Primary Care Unavailable DAKOTA GUZMAN Referring Unavailable FROIMSON, JAJA Attending Unavailable KLEB, CERISE A Primary Care Unavailable SELF Referring Unavailable FROIMSON, JAJA Referring Unavailable SALAZAR MOSSHER Attending Unavailable TESSA GUERRERO Attending Unavailable EDWARD YO K Referring Unavailable EVERETT CRUZ Attending Unavailable LEON, YO K Referring Unavailable Care Physician, No Primary Primary Care Unava ilable Araseli Babb Attending Unavailable Kam Em Attending Unavailable Care Physician, No Primary Primary Care Unava ilable HERBERTH MONTANA Admitting Unavailable RUBÉNHERBERTH Attending Unavailable RUBÉN, KEVIN Consulting Unavailable Allergies Allergy Classification Reported Allergen(s) Allergy Type Date of Onset Reaction(s) Facility Adhesive Tape (2 sources) Adhesive Tape Substance Allergy 12-28-19 19 Itching, Rash [facility] Work Phone: Caffeine (1 source) Caffeine Drug Allergy 08-26-20 21 Rash [facility] Cetirizine (2 sources) Cetirizine Drug Allergy 02-17-20 19 Mental Status Change [facility] Work Phone: Chocolate (1 source) Chocolate Food Allergy 11-08-20 13 Rash [facility] Work Phone: Melatonin (1 source) Melatonin Drug Allergy 04-05-20 20 SOB [facility] Work Phone: Onion extract (1 source) Onion extract Drug Allergy 05-25-20 22 GI Upset [facility] Promethazine (2 sources) Promethazine Drug Allergy 05-15-20 18 GI Upset [facility] Work Phone: (20 sources) Adhesive Tape; Translations: [ADHESIVE TAPE (ROSINS)] Propensity to adverse reactions to substance 12-28-19 19 Rash, Itching [facility] Work Phone: (20 sources) Caffeine Drug Allergy 09-17-20 20 Rash [facility] (20 sources) Cetirizine; Translations: [CETIRIZINE HCL] Drug Allergy 02-17-20 19 Other: See Comments, Mental Status Change, Hives [facility] Work Phone: (20 sources) Chocolate Food Allergy 11-08-20 13 Rash [facility] Work Phone: [phone] (20 sources) Melatonin Drug Allergy 04-05-20 20 Shortness of Breath, SOB [facility] (20 sources) Promethazine; Translations: [PROMETHAZINE HCL] Drug Allergy 05-15-20 18 GI Upset [facility] Work Phone: (20 sources) Mosquitos; Translations: [MOSQUITOS] Allergy to substance 02-05-20 06 Swelling [facility] Work Phone: (20 sources) Sunscreen; Translations: [SUNSCREEN] Drug Allergy 11-13-20 15 Rash [facility] Work Phone: (20 sources) Onion extract; Translations: [ONION] Drug Allergy 05-25-20 22 GI Upset [facility] (20 sources) Adhesive Tape Propensity to adverse reactions to drug 12-28-19 19 Itching, Rash [facility] Work Phone: (20 sources) Adhesive Tapes Propensity to adverse reactions to drug 12-28-19 19 Itching, Rash [facility] Work Phone: (20 sources) Clindamycin; Translations: [CLINDAMYCIN] Drug Allergy 01-05-20 25 Hives, Rash [facility] Work Phone: (20 sources) Doxycycline; Translations: [DOXYCYCLINE] Drug Allergy 01-06-20 25 Hives, Rash [facility] (20 sources) Fluconazole; Translations: [FLUCONAZOLE] Drug Allergy 01-08-20 25 [facility] (20 sources) Vancomycin; Translations: [VANCOMYCIN] Drug Allergy 01-02-20 25 Itching, Rash [facility] (20 sources) Cephalexin; Translations: [CEPHALEXIN] Drug Allergy 02-28-20 Anaphylaxis, Rash [facility] Work Phone: (20 sources) Sulfamethoxazole / Trimethoprim; Translations: [SULFAMETHOXAZOLE-T RIMETHOPRIM] Drug Allergy 02-29-20 Hives [facility] (11 sources) Promethazine; Translations: [PROMETHAZINE] Drug Allergy 05-15-20 Unknown [facility] (20 sources) DAPTOmycin; Translations: [DAPTOMYCIN] Drug Allergy 05-15-20 Anaphylaxis [facility] Work Phone: (20 sources) meropenem; Translations: [MEROPENEM] Drug Allergy 05-16-20 Rash, Hives, Swelling, Itching, Angioedema [facility] (1 source) Cephalexin Drug Allergy 09-27-20 [facility] (1 source) Clindamycin Drug Allergy 09-27-20 [facility] (1 source) Doxycycline Drug Allergy 09-27-20 [facility] (1 source) Vancomycin Drug Allergy 09-27-20 [facility] Medications Current Medications Medication Drug Class(es) Dates Sig (Normalized) Sig (Original) acetaminophen 500 mg oral tablet (20 sources) Start: 11-09-2024 take 2 tablets by mouth every six hours as needed acetaminophen (TYLENOL) 500 mg tablet Take 2 tablets by mouth four times a day as needed for pain or fever (specify temp.). Do not exceed 8 tablets (4 grams) in a 24 hour period 50 tablet 11/09/2024 Suspended Start: 07-24-2022 End: 04-08-2025 acetaminophen (TYLENOL) 500 mg tablet 07/24/2022 Active Start: 07-24-2022 End: 10-28-2022 take 2 tablets by mouth every six hours as needed acetaminophen (TYLENOL) 500 mg tablet Take 2 tablets by mouth every 6 hours as needed for pain. 30 tablet 0 07/24/2022 10/28/2022 Discontinued End: 11-09-2024 take 2 tablets by mouth every six hours as needed acetaminophen (TYLENOL) 325 mg tablet Take 650 mg by mouth every 6 hours as needed. 11/09/2024 Discontinued (Course of therapy completed) Comment on above: Take 2 tablets by mo [facility] every 6 hours as needed for pain. [id number] actuat albuterol 0.09 mg/actuat metered dose inhaler (2 sources) beta2-Adrenergic Agonist Start: 07-29-2018 Albuterol Sulfate (Ventolin Hfa) 1 INHALER inhaler Active 2 NMA INHALATION EVERY 4 HOURS NEEDED as needed for Wheezing July 29, 2018 12:00am Start: 07-29-2018 take 1 puff(s) by in halation every four hours as needed Albuterol Sulfate (Ventolin Hfa) 1 INHALER inhaler Active 2 PUFF INHALATION EVERY 4 HOURS NEEDED July 28, 2018 11:00pm amoxicillin 875 mg / clavulanate 125 mg oral tablet (2 sources) Penicillin-class Antibacterial Start: 08-11-2024 End: 08-16-2024 take 1 tablet by mouth twice daily amoxicillin-clavulanate potassium (AUGMENTIN) 875-125 mg per tablet Take 1 tablet by mouth two times a day for 5 days. 10 tablet 08/11/2024 08/16/2024 Active Start: 07-01-2023 End: 07-11-2023 take 1 tablet by mouth twice daily amoxicillin-clavulanic acid (AUGMENTIN) 875-125 mg per tablet Indications: Bacterial sinusitis Take 1 tablet by mouth twice daily for 10 days. 20 tablet 0 07/01/2023 07/11/2023 Active Comment on above: Take 1 tablet by [place] twice daily for 10 days. benzoyl peroxide 0.05 mg/mg topical gel (20 sources) Start: 01-14-2025 End: 02-13-2025 benzoyl peroxide 5 % gel Apply to affected area once daily. Patient should start on January 14, 2025. 85 g 01/14/2025 Active Start: 01-13-2025 ACNE MEDICATIO N 5 % 01/13/2025 Active onabotulinumtoxina 200 unt injection (20 sources) Acetylcholine Release Inhibitor Start: 04-04-2024 onabotulinum toxin type A 200 Units injection (BOTOX) Start: 04-03-2024 onabotulinumto xinA (BOTOX) 200 unit solr injection Inject 200 Units into the skin Every 12 Weeks 04/03/2024 Active Start: 01-06-2024 End: 01-06-2024 onabotulinum toxin type A 20 0 Units injection (BOTOX) Start: 10-14-2023 End: 10-14-2023 onabotulinum toxin type A 20 0 Units injection (BOTOX) Start: 07-15-2023 End: 07-15-2023 onabotulinum toxin type A 20 0 Units injection (BOTOX) Comment on above: Inject 200 Units int o the skin Every 12 Weeks clonazePAM 1 mg oral tablet (20 sources) Benzodiazepine Start: End: take 1 tablet by mouth once daily as needed for anxiety clonazePAM (KLONOPIN) 1 mg tablet Indications: Panic attack , Generalized anxiety disorder with panic attacks Take 1 Tablet by mouth once daily as needed for anxiety 30 Tablet 02/20/2025 04/24/2025 Discontinued (Ineffective therapy) Comment on above: Take 1 Tablet by khalida th once daily as needed for anxiety cyproheptadine hydrochloride 4 mg oral tablet (9 sources) Start: take 1 tablet by mouth twice daily as needed cyproheptadine (PERIACTIN) 4 mg tablet Indications: Chronic migraine without aura, intractable, without status migrainosus Take 1 tablet by mouth two times a day as needed (migraine). 30 tablet 2 03/29/2025 Active doxylamine succinate 25 mg oral tablet (1 source) Start: End: take 1 tablet by mouth once daily at bedtime doxylamine (UNISOM, DOXYLAMINE,) 25 mg tab Take 1 tablet by mouth daily at bedtime. 30 tablet 2 12/31/2021 03/31/2022 Active Comment on above: Take 1 tablet by khalida th daily at bedtime. [id number] 0.3 ml EPINEPHrine 1 mg/ml auto-injector (20 sources) alpha-Adrenergic Agonist, beta-Adrenergic Agonist, Catecholamine Start: Epinephrine 0.3 mg/0.3 mL auto-injector Active mL IM March 10, 2025 12:00am Start: 03-03-2025 EPINEPHrine (E PIPEN 2-RICK) 0.3 mg/0.3 mL auto-injector Inject 0.3 mL intramuscularly as needed. 2 each 03/06/2025 Active Start: 2025 EPINEPHrine (E PIPEN) 0.3 mg/0.3 mL pen injector Inject 0.3 mg into the muscle 2025 Active Start: 2025 EPINEPHrine (E PIPEN) 0.3 mg/0.3 mL auto-injector Inject 0.3 mL intramuscularly as needed (for analphylactic reaction). 2 Each 2025 12:05 PM EST 2025 Active Comment on above: Inject 0.3 mg into t he muscle fluconazole 150 mg oral tablet (4 sources) Azole Antifungal Start: 10-24-2024 End: 10-24-2024 fluconazole (DIFLUCAN) 150 mg tablet Indications: Vaginal discharge Take 1 tablet by mouth one time only for 1 dose. Repeat dose in 72 hours if symptoms still exist 2 tablet 10/24/2024 10/24/2024 Active Start: 09-07-2024 End: 09-08-2024 take 1 tablet by mouth once fluconazole (DIFLUCAN) 150 mg tablet Indications: Candidal vaginitis Take 1 tablet by mouth one time only for 1 dose. 1 tablet 09/08/2024 09/08/2024 Active Start: 08-19-2024 End: 08-19-2024 take 1 tablet by mouth once fluconazole (DIFLUCAN) 150 mg tablet Indications: Itching in the vaginal area Take 1 tablet by mouth one time only for 1 dose. 1 tablet 08/19/2024 08/19/2024 Active fluticasone propionate 0.05 mg/actuat metered dose nasal spray (1 source) Corticosteroid Start: 01-06-2023 End: 01-16-2023 take 2 spray(s) nasal route once daily at bedtime fluticasone (FLONASE ALLERGY RELIEF) 50 mcg/actuation nasal spray Indications: Tinnitus of right ear , Hearing difficulty, bilateral , Fluid level behind tympanic membrane of both ears Use 2 Sprays in each nostril daily at bedtime for 10 days. 1 Each 0 01/06/2023 01/16/2023 Active Comment on above: Use 2 Sprays in each nostril daily at bedtime for 10 days. hydrocortisone 10 mg/ml / neomycin 3.5 mg/ml / polymyxin [id number] unt/ml otic suspension (3 sources) Aminoglycoside Antibacterial, Polymyxin-class Antibacterial, Corticosteroid Start: 09-29-2023 End: 10-09-2023 neomycin-polymyxin -HC (CORTISPORIN) 3.5-10,000-1 mg/mL-unit/mL-% otic suspension Place 3 Drops in ear(s) 3 (three) times a day 0 09/29/2023 10/09/2023 Active Comment on above: Use 3 Drops in the r ight ear three times a day for [address] 3 Drops in ear (s) 3 (three) times a day ibuprofen 800 mg oral tablet (20 sources) Nonsteroidal Anti-inflammatory Drug Start: 2025 take 1 tablet by mouth every eight hours as needed ibuprofen (MOTRIN) 800 mg tablet Take 1 tablet by mouth every 8 hours as needed for pain. 10 tablet 2025 12:05 PM EST 2025 Active Start: 09-20-2024 End: 09-20-2024 ibuprofen 600 mg tab(s) (MOT RIN) Start: 09-20-2024 End: 09-20-2024 take 1 dose by mouth once 600 mg, ORAL, ONCE, 1 dose, On Thu09/20/24 at 1600 Start: 12-28-2023 End: 07-04-2024 take 1 tablet by mouth every eight hours as needed ibuprofen (MOTRIN) 800 mg tablet Take 1 tablet by mouth every 8 hours as needed for pain. 10 tablet 2025 12:05 PM EST 2025 Active Start: 12-06-2022 End: 03-10-2025 take 1 tablet by mouth every six hours as needed for pain Ibuprofen 600 mg tablet Discontinued 600 mg PO EVERY 6 HOURS NEEDED as needed for pain December 06, 2022 1:00am March 10, 2025 6:23am Start: 07-24-2022 End: 10-28-2022 take 1 tablet by mouth every six hours as needed ibuprofen (MOTRIN) 600 mg tablet Take 1 tablet by mouth every 6 hours as needed for pain. 30 tablet 0 07/24/2022 10/28/2022 Discontinued Comment on above: Take 1 tablet by khalida th every 6 hours as needed for pain. Take 600 mg by mouth every 6 (six) hours as needed for pain Take 1 tablet by khalida th every 8 hours as needed for pain. Take 800 mg by mouth every 8 (eight) hours as needed ketorolac tromethamine 10 mg oral tablet (2 sources) Nonsteroidal Anti-inflammatory Drug, Cyclooxygenase Inhibitor Start: 06-09-20 End: 06-14-20 take 1 tablet by mouth four times daily at mealtime keTORolac (TORADOL) 10 mg tablet Take 1 tablet by mouth four times daily for 5 days. Take with food 20 tablet 0 06/09/2023 06/14/2023 Active Start: 10-28-2022 End: 11-02-2022 take 1 tablet by mouth four times daily at mealtime keTORolac (TORADOL) 10 mg tablet Take 1 tablet by mouth four times daily for 5 days. Take with food 20 tablet 0 10/28/2022 11/02/2022 Active Comment on above: Take 1 tablet by khalida th four times daily for 5 days. Take with food LORazepam 0.5 mg oral tablet (20 sources) Benzodiazepine Start: take 0.5 mg by mouth once daily as needed for anxiety LORazepam (ATIVAN) 1 mg tablet Indications: Generalized anxiety disorder Take 1 Tablet by mouth 1 (one) time as needed for anxiety for up to 10 doses After 10 doses, resume lorazepam 0.5mg daily as needed for anxiety 10 Tablet 01/09/2025 Active Start: 02-22-2024 take 1 tablet by khalida th every twenty-four hours as needed LORazepam (ATIVAN) 1 mg tablet Take 1 mg by mouth at bedtime as needed (anxiety/panick attacks). 02/22/2024 Active Start: 02-22-2024 take 1 tablet by khalida th once daily as needed for anxiety LORazepam (ATIVAN) 0.5 mg Take 1 Tablet by mouth once daily as needed for anxiety 30 tablet 01/13/2025 Active Comment on above: Take 1 Tablet by khalida th once daily as needed for anxiety Take 1 Tablet by khalida th 1 (one) time as needed for anxiety for up to 10 doses After 10 doses, resume lorazepam 0.5mg daily as needed for anxiety methylPREDNISolone (1 source) Corticosteroid Start: 2023 End: 2023 methylPREDNISolone (MEDROL, RICK,) 4 mg Dose-Pack Take as instructed per package. 21 tablet 08/11/2024 08/17/2024 Active naproxen 500 mg oral tablet (1 source) Nonsteroidal Anti-inflammatory Drug Start: 2023 End: 2024 take 1 tablet by mouth every twelve hours as needed naproxen (NAPROSYN) 500 mg tablet Take 1 tablet by mouth two times a day as needed for pain for up to 14 days. Take with food. 28 tablet 11/09/2024 11/23/2024 Active nitrofurantoin, macrocrystals 25 mg / nitrofurantoin, monohydrate 75 mg oral capsule (8 sources) Nitrofuran Antibacterial Start: 2024 End: 2024 take 1 capsule by mouth twice daily nitrofurantoin, macrocrystal-monohydrat e, (MACROBID) 100 mg capsule Take 100 mg by mouth 2 (two) times daily. 03/28/2025 04/24/2025 Active Start: 09-29-2023 End: 10-04-2023 take 1 capsule by mouth twice daily nitrofurantoin monohydrate and macrocrystal (MACROBID) 100 mg capsule Indications: Recurrent UTI Take 1 capsule by mouth two times a day for 5 days. 10 capsule 0 09/29/2023 10/04/2023 Active Start: 07-14-2023 End: 07-19-2023 take 1 capsule by mouth twice daily nitrofurantoin monohydrate and macrocrystal (MACROBID) 100 mg capsule Indications: Dysuria Take 1 capsule by mouth twice daily for 5 days. 10 capsule 0 07/14/2023 07/19/2023 Active Start: 09-09-2022 End: 09-14-2022 take 1 capsule by mouth twice daily nitrofurantoin monohydrate and macrocrystal (MACROBID) 100 mg capsule Indications: UTI symptoms Take 1 capsule by mouth twice daily for 5 days. 10 capsule 0 09/09/2022 09/14/2022 Active Start: 05-25-2022 End: 06-01-2022 take 1 capsule by mouth twice daily nitrofurantoin monohydrate and macrocrystal (MACROBID) 100 mg capsule Take 1 capsule by mouth twice daily for 7 days. 14 capsule 0 05/25/2022 06/01/2022 Active Comment on above: Take [address] [facility] twice daily for 7 days. Take 1 capsule by mo [facility] twice daily for 5 days. Take 1 capsule by mo [facility] two times a day for 5 days. Take 100 mg by mouth 2 (two) times daily. ofloxacin 3 mg/ml otic solution (1 source) Quinolone Antimicrobial Start: 09-14-2023 End: 09-21-2023 ofloxacin (FLOXIN) 0.3 % otic solution Indications: Acute otitis externa of both ears, unspecified type Use 10 Drops in the right ear once daily for 7 days. 5 mL 0 09/14/2023 09/21/2023 Active Comment on above: Use 10 Drops in the right ear once daily for 7 days. perflutren lipid microspheres 1.3 mL in NaCl (PF) 0.9% 10 mL injection (DEFINITY) (5 sources) Start: 01-01-2021 End: 04-02-2022 perflutren lipid microspheres 1.3 mL in NaCl (PF) 0.9% 10 mL injection (DEFINITY) VITAMIN 27 mg iron- 0.8 mg tab (13 sources) Start: 12-03-2021 End: 04-27-2023 VITAMIN 27 mg iron- 0.8 mg tab Start: 12-03-2021 VITAM IN 27 mg iron- 0.8 mg tab prochlorperazine 10 mg oral tablet (11 sources) Phenothiazine Start: 03-03-2025 take 1 tablet by mouth every six hours as needed prochlorperazine (COMPAZINE) 10 mg tablet Take 1 tablet by mouth every 6 hours as needed for nausea/vomiting. 30 tablet 03/03/2025 12:08 PM EDT 03/03/2025 Active 125 ml sodium chloride 9 mg/ml prefilled syringe (5 sources) Start: 01-01-2021 End: 04-02-2022 sodium chloride 0.9 % (flush) 10 mL (BD POSIFLUSH) sulfamethoxazole 800 mg / trimethoprim 160 mg oral tablet (4 sources) Dihydrofolate Reductase Inhibitor Antibacterial, Sulfonamide Antimicrobial Start: 2025 End: 01-15-2025 take 1 tablet by mouth every twelve hours sulfamethoxazole-tri methoprim (BACTRIM DS) 800-160 mg per tablet Take 1 tablet by mouth every 12 hours for 8 days. 16 tablet 2025 12:05 PM EST 2025 01/15/2025 Active Start: 12-31-2024 End: 01-05-2025 take 1 tablet by mouth twice daily sulfamethoxazole-trimethoprim (BACTRIM D S) 800-160 mg per tablet Take 1 tablet by mouth two times a day for 5 days. 10 tablet 12/31/2024 01/05/2025 Active Start: 09-21-2021 End: 12-31-2021 take 1 tablet by mouth twice daily Bactrim DS 800 mg-160 mg oral tablet ; 1 60 milligram(s) orally 2 times a day Quantity: 20 Refills: 0 Ordered: 21-Sep-2021 Rojelio Dao Start: 21-Sep-2021 End: 31-Dec-2021 Generic Substitution Allowed Comments: Avoid prolonged or excessive exposure to direct and/or artificial sunlight while taking this medication.Finish all this medication unless otherwise directed by prescriber.Medication should be taken with plenty of water. Comment on above: Avoid prolonged or e xcessive exposure to direct and/or artificial sunlight while taking this medication.Finish all this medication unless otherwise directed by prescriber.Medication should be taken with plenty of water. terconazole 8 mg/ml vaginal cream (2 sources) Azole Antifungal Start: End: terconazole vaginal cream (TERAZOL) 0.8 % vaginal cream Indications: Acute vaginitis Use 1 applicator vaginally daily at bedtime for 3 days. 20 g 04/19/2025 04/22/2025 Active vitamin b6 50 mg oral tablet (1 source) Start: End: take 1 tablet by mouth once daily pyridoxine, vitamin B6, (VITAMIN B-6) 50 mg tablet Take 1 tablet by mouth once daily. 30 tablet 2 12/31/2021 03/31/2022 Active Comment on above: Take 1 tablet by khalida once daily. Completed/Discontinued Medications Medication Drug Class(es) Dates Sig (Normalized) Sig (Original) 120 actuat albuterol 0.1 mg/actuat / ipratropium bromide 0.02 mg/actuat inhalation spray (2 sources) Anticholinergic, beta2-Adrenergic Agonist Start: 11-09-2024 End: 12-20-2024 take 20-100 ug by inhalation every six hours as needed ipratropium 20 mcg-albuterol 100 mcg (COMBIVENT RESPIMAT) 20-100 mcg/actuation inhaler Inhale 1 Puff as instructed every 6 hours as needed for wheezing/shortness of breath. 1 Each 11/09/2024 12/20/2024 Discontinued amoxicillin 875 mg oral tablet (20 sources) Penicillin-class Antibacterial Start: 01-03-2023 End: 01-10-2023 take 1 tablet by mouth twice daily amoxicillin (AMOXIL) 875 mg tablet TAKE 1 TABLET BY MOUTH TWICE DAILY FOR 7 DAYS 01/03/2023 Active Comment on above: Take 1 tablet by khalida th twice daily for 7 days. TAKE 1 TABLET BY KHALIDA TH TWICE DAILY FOR 7 DAYS busPIRone hydrochloride 10 mg oral tablet (20 sources) Start: 04-27-2023 End: 11-30-2023 take 1 tablet by mouth twice daily busPIRone (BUSPAR) 10 mg tablet Indications: Generalized anxiety disorder Take 1 Tablet by mouth 2 (two) times daily 60 Tablet 1 08/24/2023 11/30/2023 Discontinued (Therapy completed/Not needed) Start: 04-17-2023 End: 10-14-2023 take 1 tablet by mouth every twelve hours busPIRone (BUSPAR) 5 mg tablet Take 1 tablet by mouth every 12 hours 6am/6pm. 0 04/17/2023 10/14/2023 Discontinued Start: 03-23-2023 End: 04-27-2023 take 1 tablet by mouth twice daily busPIRone (BUSPAR) 5 mg tablet Indications: Generalized anxiety disorder Take 1 Tablet by mouth twice a day 60 Tablet 1 04/27/2023 04/27/2023 Discontinued (Error) Start: 12-15-2022 End: 01-05-2023 take 1 tablet by mouth twice daily busPIRone (BUSPAR) 10 mg tablet Indications: Generalized anxiety disorder Take 1 Tablet by mouth 2 (two) times daily After completing 5 mg tabs 60 Tablet 0 12/15/2022 01/05/2023 Discontinued (Patient preference) Comment on above: Take 1 Tablet by khalida th 2 (two) times daily After completing 5 mg tabs Take 1 Tablet by khalida th twice a day Take 1 Tablet by khalida th 2 (two) times daily Take 1 tablet by khalida th every 12 hours 6am/6pm. cephalexin 500 mg oral capsule (2 sources) Cephalosporin Antibacterial Start: 02-15-20 End: 02-25-20 take 1 capsule by mouth four times daily cephalexin (KEFLEX) 500 mg capsule Take 500 mg by mouth 4 (four) times a day 02/14/2025 02/24/2025 Comment on above: Take 500 mg by mouth 4 (four) times a day cranberry fruit concentrate (CRAN-MAX ORAL) (10 sources) End: 01-01-20 take 2800 mg by mouth once daily cranberry fruit concentrate (CRAN-MAX ORAL) Take 2,800 mg by mouth once daily. 0 01/01/2024 Discontinued (Course of therapy completed) take 2800 mg by mouth once daily cranberry fruit concentrate (CRAN-MAX ORAL) Take 2,800 mg by mouth once daily. 0 Active Comment on above: Take 2,800 mg by khalida once daily. diphenhydrAMINE hydrochloride 50 mg oral capsule (11 sources) Histamine-1 Receptor Antagonist Start: 025 End: take 1 capsule by mouth every six hours as needed diphenhydrAMINE (BENADRYL) 50 mg capsule Take 1 capsule by mouth every 6 hours as needed for itching/rash. 03/06/2025 07/04/2025 Discontinued (Course of therapy completed) docusate sodium 100 mg oral capsule (10 sources) Start: End: take 2 capsules by mouth once daily at bedtime docusate sodium (COLACE) 100 mg capsule Take 2 capsules by mouth daily at bedtime. 30 capsule 0 07/24/2022 09/09/2022 Discontinued Start: 02-04-2022 End: 05-05-2022 take 1 capsule by mouth twice daily docusate sodium (COLACE) 100 mg capsule Take 1 capsule by mouth twice daily. 60 capsule 2 02/04/2022 05/05/2022 Active Comment on above: Take 1 capsule by mo [facility] twice daily. Take 2 capsules by m outh daily at bedtime. escitalopram 20 mg oral tablet (20 sources) Serotonin Reuptake Inhibitor Start: End: take 1 tablet by mouth once daily escitalopram (LEXAPRO) 20 mg tablet Indications: Obsessive-compulsive disorder, unspecified type , Generalized anxiety disorder with panic attacks Take 1 Tablet by mouth once daily. 30 Tablet 1 08/20/2025 Active Start: 01-30-2025 End: 02-27-2025 take 1.5 tablets by mouth once daily escitalopram (LEXAPRO) 10 mg tablet Indications: Generalized anxiety disorder with panic attacks Take 1.5 Tablets by mouth once daily 45 Tablet 1 01/30/2025 02/27/2025 Discontinued (Quantity/Dosage and/or Sig change) Start: 08-17-2024 End: 01-30-2025 take 1 tablet by mouth once daily escitalopram oxalate (LEXAPRO) 10 mg tablet Take 10 mg by mouth once daily. 08/17/2024 Active Start: 08-17-2024 End: 12-05-2024 take 1 tablet by mouth once daily escitalopram oxalate (LEXAPRO) 5 mg tablet Take 1 tablet by mouth once daily. 08/17/2024 Active Start: 08-02-2024 End: 08-19-2024 take 0.5 tablet by mouth once daily escitalopram oxalate (LEXAPRO) 5 mg tablet Take 0.5 tablets by mouth once daily. 08/02/2024 08/19/2024 Discontinued (Changing Therapy/Dosage Form) Start: 06-13-2024 take 0.5 tablet by m outh once daily escitalopram oxalate (LEXAPRO) 5 mg tablet Indications: Generalized anxiety disorder , Mixed obsessional thoughts and acts 1/2 tab po daily 30 Tablet 1 06/13/2024 Active Start: 06-02-2024 End: 06-13-2024 take 1 tablet by mouth once daily escitalopram (LEXAPRO) 10 mg tablet Indications: Generalized anxiety disorder Take 1 Tablet by mouth once daily 30 Tablet 06/02/2024 06/13/2024 Discontinued (Quantity/Dosage and/or Sig change) Start: 04-07-2024 take 1 tablet by khalida th once daily escitalopram oxalate (LEXAPRO) 10 mg tablet Indications: Generalized anxiety disorder Take 1 Tablet by mouth once daily 30 Tablet 1 04/07/2024 Active Start: 03-21-2024 take 1 tablet by khalida th once daily escitalopram oxalate (LEXAPRO) 5 mg tablet Indications: Generalized anxiety disorder Take 1 Tablet by mouth once daily 30 Tablet 1 03/21/2024 Active Comment on above: Take 1 Tablet by khalida th once daily 1/2 tab po daily 1 tab po daily Take 1 Tablet by khalida th once daily Start after taking 7.5 mg lexapro daily x 7 days. Take 1.5 Tablets by mouth once daily Take 1 Tablet by khalida th once daily. famotidine 20 mg oral tablet (12 sources) Histamine-2 Receptor Antagonist Start: 05-17-2025 End: 05-22-2025 take 1 tablet by mouth every twelve hours as needed famotidine (PEPCID) 20 mg tablet Take 1 tablet by mouth two times a day as needed (itching and rash) for up to 5 days. 10 tablet 05/17/2025 05/22/2025 Suspended Start: 03-03-2025 End: 04-19-2025 take 1 tablet by mouth twice daily famotidine (PEPCID) 20 mg tablet Take 1 tablet by mouth two times a day. 03/03/2025 04/19/2025 Discontinued (Course of therapy completed) Start: 2025 End: 01-30-2025 take 1 tablet by mouth twice daily famotidine (PEPCID) 20 mg tablet Take 20 mg by mouth twice a day 2025 01/30/2025 Comment on above: Take 20 mg by mouth twice a day fexofenadine hydrochloride 180 mg oral tablet (6 sources) Histamine-1 Receptor Antagonist Start: End: take 2 tablets by mouth twice daily fexofenadine (ARTHUR) 180 mg tablet Take 2 tablets by mouth two times a day. 03/03/2025 04/19/2025 Discontinued (Course of therapy completed) Start: 01-13-2025 End: 01-27-2025 take 2 tablets by mouth twice daily fexofenadine (ARTHUR) 180 mg tablet Take 2 tablets by mouth two times a day for 14 days. 56 tablet 01/13/2025 01/27/2025 Active hydrocortisone 25 mg/ml topical cream (20 sources) Corticosteroid Start: 01-13-2025 End: 02-12-2025 hydrocortisone 2.5 % cream 01/13/2025 Active hydrOXYzine hydrochloride 25 mg oral tablet (20 sources) Antihistamine Start: 04-24-2025 End: 06-19-2025 take 1 tablet by mouth three times daily as needed for anxiety hydrOXYzine HCL (ATARAX) 25 mg tablet Indications: Generalized anxiety disorder with panic attacks Take 1 Tablet by mouth 3 (three) times daily as needed for anxiety. 90 Tablet 06/19/2025 Active Start: 01-17-2025 End: 03-20-2025 take 1 tablet by mouth three times daily as needed for anxiety hydrOXYzine HCL (ATARAX) 25 mg tablet Indications: Generalized anxiety disorder Take 1 Tablet by mouth 3 (three) times daily as needed for anxiety 90 Tablet 01/17/2025 03/20/2025 Discontinued (Therapy completed/Not needed) Comment on above: Take 1 Tablet by khalida th 3 (three) times daily as needed for anxiety Take 1 Tablet by khalida th 3 (three) times daily as needed for anxiety. isopropyl alcohol 0.7 ml/ml medicated pad (19 sources) Start: 05-13-2022 alcohol swabs Use five times daily as per protocol by [facility] 150 Each 3 05/13/2022 Active Comment on above: Use five times daily as per protocol by [facility] lamoTRIgine 100 mg oral tablet (20 sources) Mood Stabilizer, Anti-epileptic Agent Start: 05-29-2025 End: 06-19-2025 take 0.5 tablet by mouth once daily lamoTRIgine (LAMICTAL) 100 mg tablet Indications: Bipolar disorder, rapid cycling (CMS & HHS-HCC) Take 0.5 Tablets by mouth once daily. 30 Tablet 05/29/2025 06/19/2025 Discontinued (Patient Stopped Taking) Start: 05-01-2025 End: 05-29-2025 take 1 tablet by mouth once daily lamoTRIgine (LAMICTAL) 100 mg tablet Indications: Bipolar disorder, rapid cycling (CMS & HHS-HCC) Take 1 Tablet by mouth once daily. 30 Tablet 05/01/2025 05/29/2025 Discontinued (Reorder (E-Cancel Not Sent)) Start: 03-07-2025 End: 05-01-2025 take 1 tablet by mouth once daily lamoTRIgine (LAMICTAL) 200 mg tablet Indications: Bipolar disorder in full remission, most recent episode unspecified type (HCC-CMS) Take 1 Tablet by mouth once daily. 30 Tablet 1 04/24/2025 05/01/2025 Discontinued (Quantity/Dosage and/or Sig change) Start: 02-14-2025 End: 02-27-2025 take 1 tablet by mouth once daily lamoTRIgine (LAMICTAL) 200 mg tablet Indications: Bipolar disorder in full remission, most recent episode unspecified type (HCC-CMS) Take 1 Tablet by mouth once daily 30 Tablet 02/14/2025 02/27/2025 Discontinued (Reorder (E-Cancel Not Sent)) Start: 02-14-2025 take 1 tablet by khalida th once daily lamoTRIgine (LAMICTAL) 200 mg tablet Indications: Bipolar disorder in full remission, most recent episode unspecified type (HCC-CMS) Take 1 Tablet by mouth once daily 30 Tablet 02/14/2025 Active Start: 02-14-2025 take 1 tablet by khalida th once daily lamoTRIgine (LAMICTAL) 200 mg tablet Indications: Bipolar disorder in full remission, most recent episode unspecified type (HCC-CMS) Take 1 Tablet by mouth once daily 30 Tablet 02/14/2025 Active Start: 02-14-2025 take 1 tablet by khalida th once daily lamoTRIgine (LAMICTAL) 200 mg tablet Indications: Bipolar disorder in full remission, most recent episode unspecified type (HCC-CMS) Take 1 Tablet by mouth once daily 30 Tablet 02/14/2025 Active Start: 02-14-2025 take 1 tablet by khalida th once daily lamoTRIgine (LAMICTAL) 200 mg tablet Indications: Bipolar disorder in full remission, most recent episode unspecified type (HCC-CMS) Take 1 Tablet by mouth once daily 30 Tablet 02/14/2025 Active Start: 08-02-2024 End: 01-30-2025 take 1 tablet by mouth once daily lamoTRIgine (LAMICTAL) 200 mg tablet Take 1 tablet by mouth once daily. 08/02/2024 Active Start: 04-21-2024 End: 06-13-2024 take 1 tablet by mouth once daily lamoTRIgine (LAMICTAL) 200 mg tablet Indications: Bipolar disorder in partial remission, most recent episode unspecified type (HCC-CMS) Take 1 Tablet by mouth once daily 30 Tablet 1 06/13/2024 Active Start: 03-19-2024 End: 03-21-2024 take 1 tablet by mouth once daily lamoTRIgine (LAMICTAL) 200 mg tablet Indications: Bipolar disorder in partial remission, most recent episode unspecified type (HCC-CMS) Take 1 Tablet by mouth once daily 30 Tablet 1 03/21/2024 Active Start: 03-19-2024 take 1 tablet by khalida th once daily lamoTRIgine (LAMICTAL) 200 mg tablet Indications: Bipolar disorder in partial remission, most recent episode unspecified type (HCC-CMS) Take 1 Tablet by mouth once daily 30 Tablet 03/19/2024 Active Start: 03-19-2024 take 1 tablet by khalida th once daily lamoTRIgine (LAMICTAL) 200 mg tablet Indications: Bipolar disorder in partial remission, most recent episode unspecified type (HCC-CMS) Take 1 Tablet by mouth once daily 30 Tablet 03/19/2024 Active Start: 03-19-2024 take 1 tablet by khalida th once daily lamoTRIgine (LAMICTAL) 200 mg tablet Indications: Bipolar disorder in partial remission, most recent episode unspecified type (HCC-CMS) Take 1 Tablet by mouth once daily 30 Tablet 03/19/2024 Active Start: 03-19-2024 take 1 tablet by khalida th once daily lamoTRIgine (LAMICTAL) 200 mg tablet Indications: Bipolar disorder in partial remission, most recent episode unspecified type (HCC-CMS) Take 1 Tablet by mouth once daily 30 Tablet 03/19/2024 Active Start: 02-17-2024 End: 02-22-2024 take 1 tablet by mouth once daily lamoTRIgine (LAMICTAL) 200 mg tablet Indications: Bipolar disorder in partial remission, most recent episode unspecified type (HCC-CMS) Take 1 Tablet by mouth once daily 30 Tablet 02/17/2024 02/22/2024 Discontinued (Reorder) Start: 12-07-2023 take 1 tablet by khalida th once daily lamoTRIgine (LAMICTAL) 200 mg tablet Indications: Bipolar disorder in partial remission, most recent episode unspecified type (HCC-CMS) Take 1 Tablet by mouth once daily 30 Tablet 1 12/07/2023 Active Start: 09-28-2023 End: 11-30-2023 take 1 tablet by mouth once daily lamoTRIgine (LAMICTAL) 200 mg tablet Indications: Bipolar disorder in partial remission, most recent episode unspecified type ([facility]-CMS) Take 1 Tablet by mouth once daily 30 Tablet 1 09/28/2023 11/30/2023 Discontinued (Reorder) Start: 07-24-2022 End: 08-19-2024 take 1 tablet by mouth once daily lamoTRIgine (LAMICTAL) 150 mg tablet Take 1 tablet by mouth once daily. 30 tablet 07/24/2022 08/19/2024 Discontinued (Changing Therapy/Dosage Form) Start: 04-25-2022 take 1 tablet by khalida th once daily lamoTRIgine (LAMICTAL) 150 mg tablet Take 150 mg by mouth once daily. 0 04/25/2022 Active Start: 05-07-2021 End: 06-03-2022 lamoTRIgine (LAMICTAL) 25 mg tablet Take 150 mg by mouth daily at bedtime. 0 05/07/2021 06/03/2022 Discontinued (Course of therapy completed) Comment on above: Take 150 mg by mouth daily at bedtime. Take 150 mg by mouth once daily. Take 1 tablet by khalida th once daily. Take 1 Tablet by khalida th once daily Take 0.5 Tablets by mouth once daily. levonorgestrel 0.256851 mg/hr intrauterine system (1 source) Progestin, Progestin-containing Intrauterine Device Start: 09-05-2022 End: 09-05-2022 levonorgestrel 20 mcg/24 hours (8 yrs) 52 mg 1 Each intrauterine device (MIRENA) Start: 09-05-2022 End: 09-05-2022 levonorgestrel 20 mcg/24 fred rs (8 yrs) 52 mg 1 Each intrauterine device (MIRENA) Lidocaine (1 source) Antiarrhythmic, Amide Local Anesthetic Start: 07-16-2022 End: 07-16-2022 lidocaine 10 mg/mL (1 %) 200 mg injection (XYLOCAINE) lithium carbonate 300 mg oral capsule (1 source) take 1 capsule by mouth twice daily lithium carbonate (ESKALITH) 300 mg capsule Take 300 mg by mouth twice daily. Stopped for 4 days 0 Active Comment on above: Take 300 mg by mouth twice daily. Stopped for 4 days lurasidone hydrochloride 40 mg oral tablet (1 source) Atypical Antipsychotic lurasidone (LATUDA) 40 mg tablet Take 40 mg by mouth. 0 Active Comment on above: Take 40 mg by mouth. methylcellulose 500 mg oral tablet (20 sources) Start: 01-27-2023 take 2 tablets by mouth every eight hours as needed methylcellulose, laxative, (CITRUCEL) 500 mg tab tab Take 1,000 mg by mouth every 8 (eight) hours as needed 01/27/2023 Active Start: 01-27-2023 End: 07-15-2023 take 2 tablets by mouth every eight hours as needed for constipation and constipation Methylcellulose, Laxative, (CITRUCEL) 500 mg tab Indications: Constipation, unspecified constipation type Take 2 tablets by mouth three times daily as needed. 100 tablet 2 01/27/2023 07/15/2023 Discontinued Comment on above: Take 2 tablets by mo [facility] three times daily as needed. Take 1,000 mg by khalida th every 8 (eight) hours as needed metroNIDAZOLE 500 mg oral tablet (10 sources) Nitroimidazole Antimicrobial Start: 04-20-20 End: 05-01-20 take 1 tablet by mouth twice daily metroNIDAZOLE (FLAGYL) 500 mg tablet Take 500 mg by mouth twice a day. 04/20/2025 05/01/2025 Start: 09-08-2024 End: 09-15-2024 take 1 tablet by mouth twice daily metroNIDAZOLE (FLAGYL) 500 mg tablet Indications: BV (bacterial vaginosis) Take 1 tablet by mouth two times a day for 7 days. Take after finished Flagyl. 14 tablet 09/08/2024 09/15/2024 Active Start: 05-27-2022 End: 06-01-2022 metroNIDAZOLE (METROGEL VAGI NAL) 0.75 % Vaginal Gel Use 1 Applicator vaginally daily at bedtime for 5 days. 70 g 0 05/27/2022 06/01/2022 Active Start: 04-17-2022 take 1 tablet by khalida th twice daily metroNIDAZOLE (FLAGYL) 500 mg tablet Take 1 tablet by mouth twice daily. for vaginosis. Do not drink alcohol while taking this medication 14 tablet 0 04/17/2022 Active Comment on above: Take 1 tablet by khalida th twice daily. for vaginosis. Do not drink alcohol while taking this medication Use 1 Applicator vag inally daily at bedtime for 5 days. Take 500 mg by mouth twice a day. omeprazole 20 mg delayed release oral capsule (20 sources) Proton Pump Inhibitor Start: 01-28-20 End: 06-13-20 take 1 capsule by mouth once daily omeprazole (PRILOSEC) [address] capsule Take 20 mg by mouth once daily 01/27/2023 06/13/2024 Discontinued (Therapy completed/Not needed) Comment on above: Take 1 capsule by mo [facility] once daily. Take 20 mg by mouth once daily ondansetron 4 mg disintegrating oral tablet (20 sources) Serotonin-3 Receptor Antagonist Start: 03-28-20 End: 04-04-20 take 1 tablet by mouth every six hours as needed for nausea and vomiting ondansetron ODT (ZOFRAN-ODT) 4 mg disintegrating tablet TAKE 1 TABLET BY MOUTH EVERY 6 HOURS NEEDED FOR NAUSEA AND VOMITING FOR UP TO 7 DAYS 03/28/2025 Active Start: 01-20-2025 End: 02-27-2025 take 1 tablet by mouth every six hours as needed for nausea and vomiting ondansetron ODT (ZOFRAN-ODT) 4 mg disintegrating tablet TAKE 1 TABLET BY MOUTH EVERY 6 HOURS NEEDED FOR NAUSEA AND VOMITING FOR UP TO 7 DAYS 01/20/2025 02/27/2025 Discontinued (Therapy completed/Not needed) Start: 01-15-2025 End: 02-27-2025 ondansetron HCL (ZOFRAN) 4 m g tablet 01/15/2025 02/27/2025 Discontinued (Therapy completed/Not needed) Start: 02-11-2024 End: 02-18-2024 take 1 tablet by mouth every six hours as needed ondansetron orally disintegrating (ZOFRAN ODT) 4 mg disintegrating tablet Take 1 tablet by mouth every 6 hours as needed for nausea/vomiting for up to 7 days. 12 tablet 0 02/11/2024 02/18/2024 Active Comment on above: Take 1 tablet by khalida every 6 hours as needed for nausea/vomiting for up to 7 days. TAKE 1 TABLET BY KHALIDA TH EVERY 6 HOURS NEEDED FOR NAUSEA AND VOMITING FOR UP TO 7 DAYS oxyCODONE hydrochloride 5 mg oral tablet (2 sources) Opioid Agonist Start: 05-17-20 End: 05-18-20 take 1 tablet by mouth every twelve hours oxyCODONE IR (ROXICODONE) 5 mg immediate release tablet Indications: Mastitis without abscess , Mastitis Take 1 tablet by mouth every 12 hours for 1 day. 2 tablet 05/17/2025 05/18/2025 Suspended penicillin v potassium 250 mg oral tablet (20 sources) Start: 12-06-19 End: 03-10-20 penicillin V potassium (VEETID) 250 mg tablet Take 500 mg by mouth 4 (four) times daily 12/06/2022 06/13/2024 Discontinued (Therapy completed/Not needed) Start: 12-06-2022 take 500 mg by mouth four times daily Penicillin V Potassium Active 500 MG PO 4 TIMES DAILY December 06, 2022 12:00am Comment on above: Take 500 mg by mouth 4 (four) times daily phenazopyridine hydrochloride 100 mg oral tablet (4 sources) Start: 05-25-20 End: 06-03-20 take 2 tablets by mouth every twelve hours as needed phenazopyridine (PYRIDIUM) 100 mg tablet Take 2 tablets by mouth twice daily as needed. 6 tablet 0 05/25/2022 06/03/2022 Discontinued (Course of therapy completed) Comment on above: Take [address] [facility] twice daily as needed. polyethylene glycol 3350 93078 mg powder for oral solution (2 sources) Osmotic Laxative Start: 05-18-20 End: 05-21-20 polyethylene glycol 3350 17 gram packet Take 1 packet by mouth once daily for 3 days. Dissolve dose in 4 - 8 ounces of liquid and take as directed. 3 packet 05/18/2025 05/21/2025 Suspended predniSONE 50 mg oral tablet (2 sources) Start: 03-04-20 End: 03-08-20 take 1 tablet by mouth once daily predniSONE (DELTASONE) 50 mg Take 1 tablet by mouth once daily for 4 doses. Patient should start on March 04, 2025. 4 tablet 03/03/2025 12:08 PM EDT 03/04/2025 03/08/2025 Suspended Start: 01-06-2023 End: 01-11-2023 take 2 tablets by mouth once daily predniSONE (DELTASONE) 20 mg tablet Indications: Tinnitus of right ear , Hearing difficulty, bilateral , Fluid level behind tympanic membrane of both ears Take 2 tablets by mouth once daily for 5 days. 10 tablet 0 01/06/2023 01/11/2023 Active Comment on above: Take 2 tablets by mo ut once daily for 5 days. [id number]-Fe- FA tab (20 sources) Start: 12-03-2021 End: 09-09-2022 take 1 tablet by mouth once daily Tfnhbjov-Qe-Rqi-Fe-FA tab Take 1 tablet by mouth once daily. 30 tablet 11 12/03/2021 09/09/2022 Discontinued Start: 12-03-2021 End: 12-03-2022 take 1 tablet by mouth once daily Jlreghyp-Mw-Lcq-Fe-FA tab Take 1 tablet by mouth once daily. 30 tablet 11 12/03/2021 12/03/2022 Active Comment on above: Take 1 tablet by khalida once daily. rimegepant 75 mg disintegrating oral tablet (20 sources) Start: 10-28-20 End: 09-27-20 24 rimegepant (NURTEC ODT) 75 mg TbDi Take 75 mg by mouth 10/28/2022 Active Comment on above: Take 1 tablet by khalida once daily as needed (migraine). Take 75 mg by mouth risperiDONE 3 mg oral tablet (20 sources) Atypical Antipsychotic Start: 05-22-20 End: 08-20-20 25 take 1 tablet by mouth once daily at bedtime risperiDONE (RISPERDAL) 3 mg tablet Indications: Obsessive-compulsiv e disorder, unspecified type Take 1 Tablet by mouth nightly at bedtime. 30 Tablet 1 08/20/2025 Active Start: 04-24-2025 End: 06-19-2025 take 1 tablet by mouth once daily as needed risperiDONE (RISPERDAL) 0.5 mg tablet Indications: Bipolar disorder, in partial remission, most recent episode hypomanic Take 1 Tablet by mouth once daily as needed for other reason (agitation). 30 Tablet 06/19/2025 Active Start: 03-20-2025 End: 05-29-2025 take 1 tablet by mouth twice daily risperiDONE (RISPERDAL) 3 mg tablet Indications: Bipolar disorder in full remission, most recent episode unspecified type (CMS & HHS-HCC) , Obsessive-compulsive disorder, unspecified type Take 1 Tablet by mouth 2 (two) times daily. 30 Tablet 1 04/24/2025 05/29/2025 Discontinued (Reorder (E-Cancel Not Sent)) Start: 03-07-2025 End: 03-20-2025 take 1 tablet by mouth once daily as needed risperiDONE (RISPERDAL) 0.5 mg tablet Indications: Bipolar disorder in full remission, most recent episode unspecified type (HCC-CMS) Take 1 Tablet by mouth once daily as needed for other reason (hypomanic symptoms) 30 Tablet 03/07/2025 03/20/2025 Discontinued (Therapy completed/Not needed) Start: 02-14-2025 End: 02-27-2025 take 1 tablet by mouth once daily as needed risperiDONE (RISPERDAL) 0.5 mg tablet Indications: Bipolar disorder in full remission, most recent episode unspecified type (HCC-CMS) Take 1 Tablet by mouth once daily as needed for other reason (hypomanic symptoms) 30 Tablet 02/14/2025 02/27/2025 Discontinued (Reorder (E-Cancel Not Sent)) Start: 02-14-2025 take 1 tablet by khalida th once daily as needed risperiDONE (RISPERDAL) 0.5 mg tablet Indications: Bipolar disorder in full remission, most recent episode unspecified type (HCC-CMS) Take 1 Tablet by mouth once daily as needed for other reason (hypomanic symptoms) 30 Tablet 02/14/2025 Active Start: 02-14-2025 take 1 tablet by khalida th once daily as needed risperiDONE (RISPERDAL) 0.5 mg tablet Indications: Bipolar disorder in full remission, most recent episode unspecified type (HCC-CMS) Take 1 Tablet by mouth once daily as needed for other reason (hypomanic symptoms) 30 Tablet 02/14/2025 Active Start: 02-14-2025 take 1 tablet by khalida th once daily as needed risperiDONE (RISPERDAL) 0.5 mg tablet Indications: Bipolar disorder in full remission, most recent episode unspecified type (HCC-CMS) Take 1 Tablet by mouth once daily as needed for other reason (hypomanic symptoms) 30 Tablet 02/14/2025 Active Start: 02-14-2025 take 1 tablet by khalida th once daily as needed risperiDONE (RISPERDAL) 0.5 mg tablet Indications: Bipolar disorder in full remission, most recent episode unspecified type (HCC-CMS) Take 1 Tablet by mouth once daily as needed for other reason (hypomanic symptoms) 30 Tablet 02/14/2025 Active Start: 08-02-2024 End: 05-22-2025 take 1 tablet by mouth once daily at bedtime risperiDONE (RISPERDAL) 0.5 mg tablet Take 0.5 mg by mouth daily at bedtime. 08/02/2024 05/22/2025 Discontinued Start: 04-21-2024 End: 05-22-2025 take 1 tablet by mouth once daily at bedtime risperiDONE (RISPERDAL) 2 mg tablet Take 2 mg by mouth daily at bedtime. 06/01/2024 05/22/2025 Discontinued Start: 04-21-2024 End: 06-13-2024 take 1 tablet by mouth once daily as needed risperiDONE (RISPERDAL) 0.5 mg tablet Indications: Bipolar disorder in partial remission, most recent episode unspecified type (HCC-CMS) Take 1 Tablet by mouth once daily as needed for other reason (hypomanic symptoms) 30 Tablet 1 06/13/2024 Active Start: 03-19-2024 take 1 tablet by khalida th once daily at bedtime risperiDONE (RISPERDAL) 2 mg tablet Indications: Bipolar disorder in partial remission, most recent episode unspecified type (HCC-CMS) Take 1 Tablet by mouth nightly at bedtime 30 Tablet 03/19/2024 Active Start: 03-19-2024 take 1 tablet by khalida th once daily at bedtime risperiDONE (RISPERDAL) 2 mg tablet Indications: Bipolar disorder in partial remission, most recent episode unspecified type (HCC-CMS) Take 1 Tablet by mouth nightly at bedtime 30 Tablet 03/19/2024 Active Start: 03-19-2024 take 1 tablet by khalida th once daily at bedtime risperiDONE (RISPERDAL) 2 mg tablet Indications: Bipolar disorder in partial remission, most recent episode unspecified type (HCC-CMS) Take 1 Tablet by mouth nightly at bedtime 30 Tablet 03/19/2024 Active Start: 03-19-2024 End: 03-21-2024 take 1 tablet by mouth once daily at bedtime risperiDONE (RISPERDAL) 0.5 mg tablet Indications: Bipolar disorder in partial remission, most recent episode unspecified type (HCC-CMS) Take 1 Tablet by mouth nightly at bedtime With 2 mg for total 2.5 mg dosage 30 Tablet 1 03/21/2024 Active Start: 03-19-2024 take 1 tablet by khalida th once daily at bedtime risperiDONE (RISPERDAL) 0.5 mg tablet Indications: Bipolar disorder in partial remission, most recent episode unspecified type (HCC-CMS) Take 1 Tablet by mouth nightly at bedtime With 2 mg for total 2.5 mg dosage 30 Tablet 03/19/2024 Active Start: 03-19-2024 take 1 tablet by khalida th once daily at bedtime risperiDONE (RISPERDAL) 0.5 mg tablet Indications: Bipolar disorder in partial remission, most recent episode unspecified type (HCC-CMS) Take 1 Tablet by mouth nightly at bedtime With 2 mg for total 2.5 mg dosage 30 Tablet 03/19/2024 Active Start: 03-19-2024 take 1 tablet by khalida th once daily at bedtime risperiDONE (RISPERDAL) 0.5 mg tablet Indications: Bipolar disorder in partial remission, most recent episode unspecified type (HCC-CMS) Take 1 Tablet by mouth nightly at bedtime With 2 mg for total 2.5 mg dosage 30 Tablet 03/19/2024 Active Start: 03-19-2024 take 1 tablet by khalida th once daily at bedtime risperiDONE (RISPERDAL) 0.5 mg tablet Indications: Bipolar disorder in partial remission, most recent episode unspecified type (HCC-CMS) Take 1 Tablet by mouth nightly at bedtime With 2 mg for total 2.5 mg dosage 30 Tablet 03/19/2024 Active Start: 03-19-2024 End: 03-21-2024 take 1 tablet by mouth once daily at bedtime risperiDONE (RISPERDAL) 2 mg tablet Indications: Bipolar disorder in partial remission, most recent episode unspecified type (HCC-CMS) Take 1 Tablet by mouth nightly at bedtime 30 Tablet 1 03/21/2024 Active Start: 03-19-2024 take 1 tablet by khalida th once daily at bedtime risperiDONE (RISPERDAL) 2 mg tablet Indications: Bipolar disorder in partial remission, most recent episode unspecified type (HCC-CMS) Take 1 Tablet by mouth nightly at bedtime 30 Tablet 03/19/2024 Active Start: 02-17-2024 End: 02-22-2024 take 1 tablet by mouth once daily at bedtime risperiDONE (RISPERDAL) 0.5 mg tablet Indications: Bipolar disorder in partial remission, most recent episode unspecified type (HCC-CMS) Take 1 Tablet by mouth nightly at bedtime With 2 mg for total 2.5 mg dosage 30 Tablet 02/17/2024 02/22/2024 Discontinued (Reorder) Start: 02-17-2024 End: 02-22-2024 take 1 tablet by mouth once daily at bedtime risperiDONE (RISPERDAL) 2 mg tablet Indications: Bipolar disorder in partial remission, most recent episode unspecified type (HCC-CMS) Take 1 Tablet by mouth nightly at bedtime 30 Tablet 02/17/2024 02/22/2024 Discontinued (Reorder) Start: 01-01-2024 take 1 tablet by khalida th once daily at bedtime risperiDONE (RISPERDAL) 0.5 mg tablet Indications: Bipolar disorder in partial remission, most recent episode unspecified type (HCC-CMS) Take 1 Tablet by mouth nightly at bedtime With 2 mg for total 2.5 mg dosage 30 Tablet 1 01/01/2024 Active Start: 12-07-2023 take 1 tablet by khalida th once daily at bedtime risperiDONE (RISPERDAL) 2 mg tablet Indications: Bipolar disorder in partial remission, most recent episode unspecified type (HCC-CMS) Take 1 Tablet by mouth nightly at bedtime 30 Tablet 1 12/07/2023 Active Start: 08-24-2023 End: 11-30-2023 take 1 tablet by mouth once daily at bedtime risperiDONE (RISPERDAL) 2 mg tablet Indications: Bipolar disorder in partial remission, most recent episode unspecified type (HCC-CMS) Take 1 Tablet by mouth nightly at bedtime 30 Tablet 1 09/28/2023 11/30/2023 Discontinued (Reorder) Start: 12-08-2022 End: 08-24-2023 take 1 tablet by mouth once daily at bedtime risperiDONE (RISPERDAL) 0.5 mg tablet Indications: Bipolar disorder in partial remission, most recent episode unspecified type (HCC-CMS) Take 1 Tablet by mouth nightly at bedtime 30 Tablet 1 07/06/2023 08/24/2023 Discontinued (Quantity/Dosage and/or Sig change) Start: 07-24-2022 End: 08-19-2024 take 1 tablet by mouth once daily at bedtime risperiDONE (RISPERDAL) 1 mg tablet Take 1 tablet by mouth daily at bedtime. 30 tablet 07/24/2022 08/19/2024 Discontinued (Changing Therapy/Dosage Form) Start: 01-20-2022 take 1 tablet by khalida th once daily at bedtime risperiDONE (RISPERDAL) 1 mg tablet Take 1 tablet by mouth daily at bedtime. 0 01/20/2022 Active Comment on above: Take 1 tablet by khalida th daily at bedtime. Take 1 Tablet by khalida th nightly at bedtime With a 0.5 mg tablet for total of 1.5 mg daily dose Take 1 Tablet by khalida th every evening Take 1 Tablet by khalida th every evening With 1 mg tablet for total 1.5 mg dose Take 1 Tablet by khalida th nightly at bedtime Take 1 Tablet by khalida th nightly at bedtime With 2 mg for total 2.5 mg dosage Take 1 Tablet by khalida th nightly at bedtime Take together with 0.5 mg for total 2.5 mg daily dosage Take 1 Tablet by khalida th once daily as needed for other reason (hypomanic symptoms) Take 1 Tablet by khalida th 2 (two) times daily Take 1 Tablet by khalida th once daily as needed for other reason (agitation). Take 1 Tablet by khalida th 2 (two) times daily. Take 1 Tablet by khalida th nightly at bedtime. rizatriptan 10 mg oral tablet (9 sources) Serotonin-1b and Serotonin-1d Receptor Agonist Start: 06-21-2025 rizatriptan (MAXALT) 10 mg tablet Take 10 mg by mouth. 06/21/2025 Active Comment on above: Take 10 mg by mouth. sennosides, nursing home 17.2 mg oral tablet (20 sources) Start: 04-17-2022 take 1 tablet by mouth once daily Sennosides (SENOKOT EXTRA STRENGTH) 17.2 mg tab Take 1 tablet by mouth once daily. 20 tablet 3 04/17/2022 Active Comment on above: Take 1 tablet by khalida th once daily. ubrogepant 100 mg oral tablet (20 sources) Start: 09-27-2024 ubrogepant (UBRELVY) 100 mg tab Take 100 mg by mouth 09/27/2024 Active Comment on above: Take 100 mg by mouth 24 hr divalproex sodium 500 mg extended release oral tablet (20 sources) Mood Stabilizer, Anti-epileptic Agent Start: 05-01-2025 End: 08-20-2025 take 3 tablets by mouth once daily in the evening divalproex (DEPAKOTE ER) 500 mg 24 hr tablet Indications: Bipolar disorder, in partial remission, most recent episode hypomanic Take 3 Tablets by mouth every evening. 90 Tablet 1 08/20/2025 Active Comment on above: Take 1 Tablet by khalida th once daily. Take 2 Tablets by mo uth every evening. Take 3 Tablets by mo uth every evening. Problems Active Problems Problem Classification Problem Date Documented Da te Episodic/Chronic Adjustment disorders (20 sources) Adjustment disorder with mixed anxiety and depressed mood; Translations: [Adjustment disorder with mixed anxiety and depressed mood] Onset: 04-29-2021 05-28-2021 Chronic Alcohol-related disorders (1 source) Current drinker; Translations: [Alcohol use] 08-20-2025 Chronic Anxiety disorders (20 sources) Panic disorder without agoraphobia; Translations: [Panic disorder [episodic paroxysmal anxiety]] Onset: 05-28-2021 05-28-2021 Chronic Diseases of mouth; excluding dental (1 source) Acute sialoadenitis; Translations: [Acute sialoadenitis] Onset: 09-27-2025 Episodic Disorders of teeth and jaw (4 sources) Dental caries extending into dentin; Translations: [Dental caries on smooth surface penetrating into dentin] 12-14-2022 Episodic Fracture of upper limb (11 sources) Closed fracture of shaft of fifth metacarpal bone; Translations: [Nondisplaced fracture of shaft of fifth metacarpal bone, left hand, initial encounter for closed fracture] 12-28-2023 Episodic Headache; including migraine (20 sources) Migraine without aura, not refractory ; Translations: [Migraine without aura, not intractable, without status migrainosus] Onset: 07-18-2019 04-16-2021 Chronic Inflammatory diseases of female pelvic organs (3 sources) Bacterial vaginosis; Translations: [Acute vaginitis] Onset: 04-19-2025 09-08-2024 Episodic Miscellaneous mental health disorders (1 source) Globus sensation; Translations: [Globus sensation] Onset: 03-08-2025 Chronic Mood disorders (20 sources) Mild mixed bipolar I disorder; Translations: [Bipolar disorder, current episode mixed, mild] Onset: 08-27-2015 04-16-2021 Chronic Mycoses (1 source) Candidiasis of vagina; Translations: [Candidal vaginitis] 09-08-2024 Episodic Nonspecific chest pain (1 source) Atypical chest pain; Translations: [Other chest pain] Episodic Open wounds of head; neck; and trunk (1 source) Puncture wound without foreign body of unspecified breast, initial encounter; Translations: [Infected pierced nipple] Onset: 05-11-2025 Episodic Other aftercare (4 sources) H/O: high risk medication; Translations: [Other mcc (current) drug therapy] 06-13-2024 Episodic Other and unspecified benign neoplasm (1 source) Benign neoplasm of soft tissue; Translations: [Melanocytic nevi, unspecified] Episodic Other complications of ; puerperium affecting management of mother (1 source) Suspected disorder; Translations: [Maternal care for (suspected) abnormality and damage, unspecified, fetus 1] Episodic Other complications of (1 source) Maternal drug exposure; Translations: [Supervision of other high risk pregnancies, first trimester] Episodic Other connective tissue disease (2 sources) Trismus; Translations: [Cramp and spasm] 12-14-2022 Episodic Other connective tissue disease (2 sources) Pain in left foot; Translations: [Pain in left foot] 04-01-2024 Episodic Other connective tissue disease (1 source) Pain in lower limb; Translations: [Pain in right leg] 03-10-2025 Episodic Other ear and sense organ disorders (1 source) Hearing difficulty; Translations: [Unspecified hearing loss, bilateral] Chronic Other ear and sense organ disorders (1 source) Tinnitus of right ear; Translations: [Tinnitus, right ear] Episodic Other ear and sense organ disorders (1 source) Acute otitis externa of bilateral ears; Translations: [Unspecified acute noninfective otitis externa, bilateral] 09-14-2023 Episodic Other ear and sense organ disorders (1 source) Acute otitis externa of right ear; Translations: [Unspecified acute noninfective otitis externa, right ear] 09-29-2023 Episodic Other ear and sense organ disorders (1 source) Otalgia, left ear; Translations: [Otalgia, unspecified] 07-31-2024 Episodic Other female genital disorders (1 source) Vaginal irritation; Translations: [Other specified noninflammatory disorders of vagina] 09-07-2024 Episodic Other female genital disorders (1 source) Pruritus of vagina; Translations: [Other specified noninflammatory disorders of vagina] 08-19-2024 Episodic Other female genital disorders (1 source) Vaginal discharge; Translations: [Other specified noninflammatory disorders of vagina] 10-24-2024 Episodic Other gastrointestinal disorders (1 source) Constipation; Translations: [Constipation, unspecified] Episodic Other injuries and conditions due to external causes (2 sources) Injury of left hand; Translations: [Unspecified injury of left wrist, hand and finger(s), initial encounter] 12-28-2023 Episodic Other liver diseases (3 sources) Steatosis of liver; Translations: [Fatty (change of) liver, not elsewhere classified] Onset: 05-19-2025 05-19-2025 Chronic Other liver diseases (5 sources) Enzyme level - finding; Translations: [Transaminitis] Onset: 05-12-2025 05-12-2025 Episodic Other nutritional; endocrine; and metabolic disorders (20 sources) Obese class I; Translations: [Obesity, Class I, BMI 30-34.9] Onset: 01-10-2025 01-13-2025 Chronic Other screening for suspected conditions (not mental disorders or infectious disease) (11 sources) Patient encounter status; Translations: [Encounter for other screening follow-up] Onset: 03-06-2025 Episodic Other skin disorders (20 sources) Eruption; Translations: [Rash and other nonspecific skin eruption] Onset: 02-16-2019 Resolved: 09-17-2020 Episodic Other skin disorders (6 sources) Lip swelling; Translations: [Localized swelling, mass and lump, head] Onset: 03-04-2025 03-04-2025 Episodic Other upper respiratory infections (1 source) Bacterial sinusitis; Translations: [Chronic sinusitis, unspecified] 07-01-2023 Chronic Other upper respiratory infections (1 source) Acute maxillary sinusitis; Translations: [Acute maxillary sinusitis, unspecified] 08-11-2024 Episodic Otitis media and related conditions (3 sources) Acute right otitis media; Translations: [Otitis media, unspecified, right ear] Episodic Personality disorders (18 sources) Borderline personality disorder; Translations: [Borderline personality disorder] Onset: 05-24-2025 05-24-2025 Chronic Residual codes; unclassified (1 source) Gestation period, 19 weeks; Translations: [19 weeks gestation of ] Episodic Residual codes; unclassified (1 source) Gestation period, 20 weeks; Translations: [20 weeks gestation of ] Episodic Residual codes; unclassified (1 source) Gestation period, 25 weeks; Translations: [25 weeks gestation of ] Episodic Residual codes; unclassified (1 source) Gestation period, 32 weeks; Translations: [32 weeks gestation of ] Episodic Residual codes; unclassified (1 source) Gestation period, 35 weeks; Translations: [35 weeks gestation of ] Episodic Residual codes; unclassified (1 source) Gestation period, 37 weeks; Translations: [37 weeks gestation of ] Episodic Residual codes; unclassified (1 source) Gestation period, 38 weeks; Translations: [38 weeks gestation of ] Episodic Residual codes; unclassified (2 sources) Pain; Translations: [Pain, unspecified] 01-01-2024 Episodic Residual codes; unclassified (1 source) Family history of breast cancer; Translations: [Family history of malignant neoplasm of breast] 02-01-2025 Episodic Residual codes; unclassified (1 source) Family history of malignant neoplasm of ovary; Translations: [Family history of malignant neoplasm of ovary] 02-01-2025 Episodic Residual codes; unclassified (1 source) Other specified health status; Translations: [Nonsmoker] Onset: 07-04-2025 Episodic Septicemia (except in labor) (1 source) Sepsis, unspecified organism; Translations: [Sepsis, due to unspecified organism, unspecified whether acute organ dysfunction present (HCC)] Onset: 05-18-2025 Episodic Skin and subcutaneous tissue infections (8 sources) Abscess; Translations: [Cellulitis and abscess of unspecified sites] Onset: 05-19-2025 Resolved: 05-22-2025 09-21-2021 Episodic Sprains and strains (4 sources) Sprain of left ankle; Translations: [Sprain of unspecified ligament of left ankle, initial encounter] 03-22-2024 Episodic Substance-related disorders (20 sources) History of drug abuse; Translations: [History of drug use] Onset: 09-17-2020 04-16-2021 Chronic Unclassified (2 sources) WAS JUST SEEN AT ANOTHER ER, MASS ON BUTTOCKS, PAINFUL AND WARM 09-21-2021 Comment on above: WAS JUST SEEN AT [facility] ER, MASS ON BUTTOCKS, PAINFUL AND WARM Unclassified (1 source) Transaminitis; Translations: [Transaminitis] Onset: 05-12-2025 Unclassified (1 source) History of drug use; Translations: [History of drug use] Onset: 04-16-2021 Unclassified (1 source) Right ear pain,chest pain Onset: 11-09-2024 Past or Other Problems Problem Classification Problem Date Documented Da te Episodic/Chronic Allergic reactions (20 sources) Allergy to drug; Translations: [Allergy status to other antibiotic agents status] Onset: 02-16-2019 Resolved: 05-22-2025 2025 Episodic Bacterial infection; unspecified site (18 sources) Microbiologic culture positive; Translations: [Bacteremia] Onset: 01-05-2025 2025 Episodic Conditions associated with dizziness or vertigo (20 sources) Lightheadedness; Translations: [Dizziness and giddiness] Onset: 07-18-2019 Resolved: 09-17-2020 Episodic Diabetes or abnormal glucose tolerance complicating ; childbirth; or the puerperium (20 sources) Gestational diabetes mellitus, class A>1<; Translations: [Gestational diabetes mellitus in , diet controlled] Onset: 05-25-2022 Episodic Diseases of white blood cells (20 sources) Band neutrophil count above reference range; Translations: [Bandemia] Onset: 01-03-2025 Resolved: 01-05-2025 01-05-2025 Chronic E Codes: Adverse effects of medical drugs (17 sources) Anti-infectives adverse reaction; Translations: [Adverse effect of unspecified systemic antibiotic, initial encounter] Onset: 01-09-2025 01-09-2025 Episodic Endometriosis (20 sources) Endometriosis (clinical); Translations: [Endometriosis, unspecified] Onset: 10-26-2014 Resolved: 10-16-2020 10-16-2020 Chronic Fever of unknown origin (20 sources) Fever; Translations: [Fever, unspecified] Onset: 01-03-2025 Resolved: 01-05-2025 01-05-2025 Episodic Genitourinary symptoms and ill-defined conditions (5 sources) Urinary symptoms ; Translations: [Unspecified symptoms and signs involving the genitourinary system] Onset: 03-28-2025 Episodic Headache; including migraine (20 sources) Primary exertional headache; Translations: [Headache] Onset: 12-16-2021 Episodic Immunizations and screening for infectious disease (20 sources) Antibody studies abnormal; Translations: [Other specified abnormal immunological findings in serum] Onset: 02-16-2019 Resolved: 09-17-2020 09-17-2020 Episodic Malposition; malpresentation (20 sources) Breech presentation with problem; Translations: [Maternal care for breech presentation, not applicable or unspecified] Onset: 06-25-2022 Episodic Nausea and vomiting (4 sources) Nausea and vomiting; Translations: [Nausea with vomiting, unspecified] Onset: 01-20-2025 Episodic Nonmalignant breast conditions (20 sources) Cellulitis of breast; Translations: [Mastitis without abscess] Onset: 12-31-2024 Resolved: 05-22-2025 2025 Episodic Nutritional deficiencies (20 sources) Deficiency of macronutrients; Translations: [Unspecified protein-calorie malnutrition] Onset: 04-06-2006 Resolved: 09-17-2020 09-17-2020 Chronic Other complications of ; puerperium affecting management of mother (20 sources) ultrasound scan abnormal; Translations: [Maternal care for other (suspected) abnormality and damage, not applicable or unspecified] Onset: 06-03-2022 Episodic Other complications of (20 sources) Urinary tract infection in ; Translations: [Unspecified infection of urinary tract in , third trimester] Onset: 05-25-2022 05-25-2022 Episodic Other complications of (20 sources) Pain in female pelvis; Translations: [Other specified related conditions, unspecified trimester] Onset: 06-25-2022 Resolved: 09-05-2022 Episodic Other complications of (20 sources) Rubella non-immune; Translations: [Supervision of other high risk pregnancies, unspecified trimester] Onset: 10-16-2020 Resolved: 05-07-2021 05-07-2021 Episodic Other connective tissue disease (1 source) Pain in left hand; Translations: [Left hand pain] Onset: 09-20-2024 Episodic Other disorders of stomach and duodenum (20 sources) Persistent vomiting; Translations: [Cyclical vomiting syndrome unrelated to migraine] Onset: 02-16-2019 Resolved: 09-17-2020 09-17-2020 Episodic Other female genital disorders (11 sources) History of endometriosis; Translations: [Personal history of other diseases of the female genital tract] Onset: 03-04-2025 03-04-2025 Episodic Other gastrointestinal disorders (1 source) Dysphagia, unspecified; Translations: [Dysphagia, unspecified type] Onset: 03-04-2025 Episodic Other inflammatory condition of skin (20 sources) Itching ; Translations: [Pruritus, unspecified] Onset: 02-16-2019 Resolved: 09-17-2020 09-17-2020 Episodic Other inflammatory condition of skin (1 source) Pruritus, unspecified; Translations: [Pruritus] Onset: 02-27-2025 Episodic Other injuries and conditions due to external causes (11 sources) Angioedema; Translations: [Angioneurotic edema, initial encounter] Onset: 03-02-2025 Resolved: 03-03-2025 03-03-2025 Episodic Other injuries and conditions due to external causes (1 source) Angioneurotic edema, subsequent encounter; Translations: [Angioedema, subsequent encounter] Onset: 03-04-2025 Episodic Other injuries and conditions due to external causes (1 source) Angioneurotic edema, initial encounter; Translations: [Angioedema, initial encounter] Onset: 03-03-2025 Episodic Other injuries and conditions due to external causes (1 source) Unspecified injury of unspecified lower leg, initial encounter; Translations: [Unspecified injury of unspecified lower leg, initial encounter] Onset: 03-15-2025 Episodic Other lower respiratory disease (20 sources) Dyspnea on exertion; Translations: [Other forms of dyspnea] Onset: 12-16-2021 12-16-2021 Episodic Other nervous system disorders (3 sources) Metabolic encephalopathy; Translations: [Metabolic encephalopathy] Onset: 05-19-2025 Resolved: 05-22-2025 05-22-2025 Chronic Other and delivery including normal (20 sources) care status; Translations: [Encounter for supervision of normal , unspecified, second trimester] Onset: 09-17-2020 Resolved: 05-07-2021 Episodic Other skin disorders (16 sources) Acute folliculitis; Translations: [Follicular disorder, unspecified] Onset: 01-10-2025 01-13-2025 Episodic Other skin disorders (3 sources) Rash and other nonspecific skin eruption; Translations: [Rash] Onset: 01-20-2025 Episodic Other skin disorders (1 source) Localized swelling, mass and lump, head; Translations: [Lip swelling] Onset: 03-04-2025 Episodic Other skin disorders (1 source) Localized swelling, mass and lump, left upper limb; Translations: [Localized swelling on left hand] Onset: 09-20-2024 Episodic Ovarian cyst (20 sources) Cyst of right ovary; Translations: [Unspecified ovarian cyst, right side] Onset: 12-16-2021 12-16-2021 Episodic Polyhydramnios and other problems of amniotic cavity (20 sources) Premature rupture of membranes; Translations: [Full-term premature rupture of membranes, unspecified as to length of time between rupture and onset of labor] Onset: 04-16-2021 Resolved: 05-07-2021 05-07-2021 Episodic Residual codes; unclassified (20 sources) History of drug abuse; Translations: [Personal history of other specified conditions] Onset: 09-17-2020 04-16-2021 Episodic Residual codes; unclassified (20 sources) Admission statuses; Translations: [Other specified health status] Onset: 04-16-2021 Resolved: 05-07-2021 05-07-2021 Episodic Residual codes; unclassified (12 sources) Other specified personal risk factors, not elsewhere classified; Translations: [Other specified personal history presenting hazards to health] Onset: 03-07-2025 03-07-2025 Episodic Residual codes; unclassified (1 source) Procedure and treatment not carried out because of patient's decision for other reasons; Translations: [Left against medical advice] Onset: 03-20-2025 Episodic Spondylosis; intervertebral disc disorders; other back problems (20 sources) Cervico-occipital neuralgia; Translations: [Occipital neuralgia] Onset: 12-16-2021 Episodic Superficial injury; contusion (1 source) Contusion of right hand, initial encounter; Translations: [Contusion of right hand, initial encounter] Onset: 09-20-2024 Episodic Urinary tract infections (2 sources) Recurrent urinary tract infection; Translations: [Urinary tract infection, site not specified] Onset: 03-28-2025 09-29-2023 Episodic Results Test Name Value Interpretation Reference Range Facility Emergency Department Summary on 09-27-2025 Emergency Department Summary [facility] Medical Records Department [address] [place] [address] Emergency Department Summary 09/27/25 MR#: [id number] Acct: [id number] Name: ROSALVA HUANG Rep #: [id number] : 1990 35 From: Kam Em DO PCP: Care Physician,No Primary Status:DEP ER Location: ED HPI History of Present Illness Chief Complaint: Edema Informant: patient Narrative Narrative: Patient is a 35-year-old female with past medical history of bipolar disorder. She states that she went to bed feeling normal and then awoke a few hours prior to arrival with right lower jaw swelling and pain. She denies any recent trauma. She denies any fevers or chills. She denies any change in voice or difficulty with secretions. However with the quick onset of swelling and pain she is concerned for potential infection or progression to closure of her airway so she presents for evaluation [facility] Medical History Bipolar disorder Gestational diabetes delivery delivered Breast abscess Home Medications ???Medication ???Instructions ???Recorded ???Last Taken ???Type epinephrine 0.3 mg/0.3 mL 0.3 ml IM PRN anaphylaxis 03/10/25 Unknown History injection, auto-injector escitalopram oxalate 20 mg tablet 20 mg PO DAILY 03/10/25 Unknown H istory lamotrigine 200 mg tablet 200 mg PO DAILY 03/10/25 Unknown H istory risperidone 0.5 mg tablet 0.5 mg PO QHS 03/10/25 Unknown His tory amoxicillin 875 mg-potassium 1 tab PO BID 7 days #14 tabs 09/27 Unknown Rx clavulanate 125 mg tablet divalproex 500 mg tablet,extended 2,000 mg PO QPM 09/27/25 Unknown History release 24 hr oxycodone-acetaminophen 5 mg-325 1 tab PO Q6H PRN pain 3 days #12 1 11/27/24 Unknown Rx mg tablet (Percocet) tabs Allergy/AdvReac Type Severity Reaction Status Date / Time cephalexin AdvReac Rash Verified 09/27/25 05:23 clindamycin AdvReac Rash Verified 09/27/25 05:23 doxycycline AdvReac Rash Verified 09/27/25 05:23 vancomycin AdvReac Rash Verified 09/27/25 05:23 Social History household members: children Smoking Status: Never smoker substance use type: does not use ROS ROS ED Constitutional Constitutional ED: Denies chills or fever(s) ENT ENT ED: Reports other Details: Positive right sided facial swelling and pain ; Denies sore throat Cardiovascular Cardiovascular: Denies chest pain Respiratory/Chest Respiratory/Chest: Denies cough or dyspnea Gastrointestinal Gastrointestinal: Denies abdominal pain, diarrhea, nausea or vomiting Musculoskeletal Musculoskeletal: Denies myalgias or neck pain Integumentary Denies rash Neurologic Neurologic: Denies headache(s) Psychiatric Psychiatric: Reports anxiety Hematologic/Lymphatic Hematologic/Lymphatic: Denies easy bleeding or easy bruising Allergic/Immunologic Allergic/Immunologic ED: Denies mouth swelling or tongue swelling EXAM Physical Exam Const Vital Signs: 09/27/25 05:19 09/27/25 05:23 09/27/25 05:49 Temperature 97.6 F L 97.8 F Temperature Source Oral Pulse Rate 79 72 Respiratory Rate 18 16 Respiratory Effort Normal Respiratory Pattern Normal Blood Pressure 137/79 H 115/71 Blood Pressure Mean 98 85 Pulse Ox 98 97 Oxygen Delivery Method Room Air Positive well nourished and well developed General Appearance ED: well developed; Negative for pallor HEENT HEENT Narrative: Normocephalic atraumatic There is soft tissue swelling along the right anterior lateral lower jaw near the salivary gland. There is pain with palpation at the site. No overlying erythema or warmth. No active discharge or lymphangitic streaking No tongue or lip swelling noted No trismus change in voice or difficulty with secretions No obvious dental abscess present No signs of ANUG Posterior pharynx reveals no secondary findings to suggest infection Eyes PERRL and EOMs intact bilaterally Neck supple Resp normal respiratory effort and clear to auscultation bilaterally Cardio regular rate and regular rhythm Extremity normal to inspection Neuro oriented x3, CN's II-XII intact bilaterally and no sensory deficits noted Sensorium / Orientation: alert Motor Exam: strength 5/5 throughout Psych mental status grossly normal Skin Skin Narrative: Soft tissue swelling in the right jaw/salivary gland region as documented above General Skin Exam: Negative for jaundice or pallor MDM MDM MDM Narrative Medical decision making narrative: Patient arrived to ER with stable vitals. She reported facial swelling and physical exam localizes it to the right lower jaw which could indicate potential developing abscess or sialoadenitis. She does (more content not included)... Normal [facility] BETA HCG, QUANTITATIVE FOR E Don 07-04-2025 HCG.beta subunit Qn m[IU]/mL Normal <5.0 [facility] Comment on above: Order Comment: Speci men Type: BLOOD SPECIMENOrdering Facility: [facility] Address: [address] [place] [address] Result Comment: Nega tive Performed By: #### H CGED ####[facility] LWIA [id number] [place] [address] [place] CBC W Auto Differential pane l (Bld)on 07-04-2025 Basophils (Bld) [#/Vol] 0.04 10*3/uL Normal <0.11 [facility] Comment on above: Order Comment: Speci alejandra Type: BLOOD SPECIMENOrdering Facility: [facility] Address: [address] [place] [address] Performed By: #### 5 7021-8 ####[facility] LWCLIA [id number] [place] [address] [place] Basophils/100 WBC (Bld) 0.6 % Normal [facility] Comment on above: Order Comment: Darvini alejandra Type: BLOOD SPECIMENOrdering Facility: [facility] Address: [address] [place] [address] Performed By: #### 5 7021-8 ####[facility] LWCLIA [id number] [address] [place] Differential cell count method Nom (Bld) Auto Normal [facility] Comment on above: Order Comment: Speci men Type: BLOOD SPECIMENOrdering Facility: [facility] Address: [address] [place] [address] Performed By: #### 5 7021-8 ####[facility] LWCLIA [id number] [place] [address] [place] Eosinophils (Bld) [#/Vol] 0.09 10*3/uL Normal <0.46 [facility] Comment on above: Order Comment: Speci men Type: BLOOD SPECIMENOrdering Facility: [facility] Address: [address] [place] [address] Performed By: #### 5 7021-8 ####[facility] LWCLIA [id number] [address] STATES OF [facility] Eosinophils/100 WBC (Bld) 1.3 % Normal [facility] Comment on above: Order Comment: Speci men Type: BLOOD SPECIMENOrdering Facility: [facility] Address: [address] [place] [address] Performed By: #### 5 7021-8 ####[facility] LWCLIA [id number] [address] [facility] Erythrocyte distribution width (RBC) [Ratio] 13.3 % Normal 11.5-15.0 [facility] Comment on above: Order Comment: Speci men Type: BLOOD SPECIMENOrdering Facility: [facility] Address: [address] [place] [address] Performed By: #### 5 7021-8 ####[facility] LWCLIA [id number] [place] [id number] [facility] [place] Hematocrit (Bld) [Volume fraction] 43.4 % Normal 36.0-46.0 [facility] Comment on above: Order Comment: Speci men Type: BLOOD SPECIMENOrdering Facility: [facility] Address: [address] [place] [address] Performed By: #### 5 7021-8 ####[facility] LWCLIA [id number] [place] [id number] [place] Hemoglobin (Bld) [Mass/Vol] 14.3 g/dL Normal 11.5-15.5 [facility] Comment on above: Order Comment: Speci men Type: BLOOD SPECIMENOrdering Facility: [facility] Address: [address] [place] [address] Performed By: #### 5 7021-8 ####[facility] LWCLIA [id number] [place] [id number] [place] Immature granulocytes (Bld) [#/Vol] 0.06 10*3/uL Normal <0.10 [facility] Comment on above: Order Comment: Speci men Type: BLOOD SPECIMENOrdering Facility: [facility] Address: [address] [place] [address] Performed By: #### 5 7021-8 ####[facility] LWIA [id number] [place] [address] [place] Immature granulocytes/100 WBC (Bld) 0.8 % Normal [facility] Comment on above: Order Comment: Speci men Type: BLOOD SPECIMENOrdering Facility: [facility] Address: [address] [place] [address] Performed By: #### 5 7021-8 ####[facility] LWIA [id number] [place] [id number] [place] Lymphocytes (Bld) [#/Vol] 2.10 10*3/uL Normal 1.00-4.00 [facility] Comment on above: Order Comment: Speci men Type: BLOOD SPECIMENOrdering Facility: [facility] Address: [address] [place] [address] Performed By: #### 5 7021-8 ####[facility] LWCLIA [id number] [place] [id number] [place] Lymphocytes/100 WBC (Bld) 29.4 % Normal [facility] Comment on above: Order Comment: Speci men Type: BLOOD SPECIMENOrdering Facility: [facility] Address: [address] [place] [address] Performed By: #### 5 7021-8 ####[facility] LWCLIA [id number] [place] [address] [place] MCH (RBC) [Entitic mass] 30.0 pg Normal 26.0-34.0 [facility] Comment on above: Order Comment: Speci men Type: BLOOD SPECIMENOrdering Facility: [facility] Address: [address] [place] [address] Performed By: #### 5 7021-8 ####[facility] LWIA [id number] [place] [address] [place] MCHC (RBC) [Mass/Vol] 32.9 g/dL Normal 30.5-36.0 [facility] Comment on above: Order Comment: Speci men Type: BLOOD SPECIMENOrdering Facility: [facility] Address: [address] [place] [address] Performed By: #### 5 7021-8 ####[facility] LWIA [id number] [place] [address] [place] MCV (RBC) [Entitic vol] 91.0 fL Normal 80.0-100.0 [facility] Comment on above: Order Comment: Speci men Type: BLOOD SPECIMENOrdering Facility: [facility] Address: [address] [place] [address] Performed By: #### 5 7021-8 ####[facility] LWIA [id number] [place] [address] [place] Monocytes (Bld) [#/Vol] 0.57 10*3/uL Normal <0.87 [facility] Comment on above: Order Comment: Speci men Type: BLOOD SPECIMENOrdering Facility: [facility] Address: [address] [place] [address] Performed By: #### 5 7021-8 ####[facility] LWCLIA [id number] [place] [address] [place] Monocytes/100 WBC (Bld) 8.0 % Normal [facility] Comment on above: Order Comment: Speci men Type: BLOOD SPECIMENOrdering Facility: [facility] Address: [address] [place] [address] Performed By: #### 5 7021-8 ####[facility] LWCLIA [id number] [place] [id number] [place] Neutrophils (Bld) [#/Vol] 4.29 10*3/uL Normal 1.45-7.50 [facility] Comment on above: Order Comment: Speci men Type: BLOOD SPECIMENOrdering Facility: [facility] Address: [address] [place] [address] Performed By: #### 5 7021-8 ####[facility] LWCLIA [id number] [place] [id number] [place] Neutrophils/100 WBC (Bld) 59.9 % Normal [facility] Comment on above: Order Comment: Speci men Type: BLOOD SPECIMENOrdering Facility: [facility] Address: [address] [place] [address] Performed By: #### 5 7021-8 ####[facility] LWCLIA [id number] [place] [id number] [place] Nucleated RBC (Bld) [#/Vol] 10*3/uL Normal <0.01 [facility] Comment on above: Order Comment: Speci men Type: BLOOD SPECIMENOrdering Facility: [facility] Address: [address] [place] [address] Performed By: #### 5 7021-8 ####[facility] LWCLIA [id number] [place] [id number] [place] Nucleated RBC/100 WBC (Bld) [Ratio] 0.0 /100 WBC Normal [facility] Comment on above: Order Comment: Speci men Type: BLOOD SPECIMENOrdering Facility: [facility] Address: [address] [place] [address] Performed By: #### 5 7021-8 ####[facility] LWCLIA [id number] [place] [address] [place] Platelet mean volume (Bld) [Entitic vol] 9.9 fL Normal 9.0-12.7 [facility] Comment on above: Order Comment: Speci men Type: BLOOD SPECIMENOrdering Facility: [facility] Address: [address] [place] [address] Performed By: #### 5 7021-8 ####[facility] LWIA [id number] [place] [id number] [place] Platelets (Bld) [#/Vol] 267 10*3/uL Normal 150-400 [facility] Comment on above: Order Comment: Speci men Type: BLOOD SPECIMENOrdering Facility: [facility] Address: [address] [place] [address] Performed By: #### 5 7021-8 ####[facility] LWCLIA [id number] [place] [id number] [place] RBC (Bld) [#/Vol] 4.77 10*6/uL Normal 3.90-5.20 [facility] Comment on above: Order Comment: Speci men Type: BLOOD SPECIMENOrdering Facility: [facility] Address: [address] [place] [address] Performed By: #### 5 7021-8 ####[facility] LWCLIA [id number] [place] [id number] [place] WBC (Bld) [#/Vol] 7.15 10*3/uL Normal 3.70-11.00 [facility] Comment on above: Order Comment: Speci men Type: BLOOD SPECIMENOrdering Facility: [facility] Address: [address] [place] [address] Performed By: #### 5 7021-8 ####[facility] LWCLIA [id number] [place] [address] [place] Comprehensive metabolic 2000 panelon 07-04-2025 Albumin [Mass/Vol] 4.6 g/dL Normal 3.9-4.[address] [facility] Comment on above: Order Comment: Speci men Type: BLOOD SPECIMENOrdering Facility: [facility] Address: [address] [place] [address] Performed By: #### 1 9123-9, 80261-6 ####[facility] LWCLIA [id number] [place] [address] [place] ALP [Catalytic activity/Vol] 106 U/L Normal 34-123 [facility] Comment on above: Order Comment: Speci men Type: BLOOD SPECIMENOrdering Facility: [facility] Address: [address] [place] [address] Performed By: #### 1 9123-9, 74403-6 ####[facility] LWCLIA [id number] [place] [id number] [place] ALT [Catalytic activity/Vol] 41 U/L High 7-38 [facility] Comment on above: Order Comment: Speci men Type: BLOOD SPECIMENOrdering Facility: [facility] Address: [address] [place] [address] Performed By: #### 1 9123-9, ####[facility] LWCLIA [id number] [place] [id number] [place] Anion gap [Moles/Vol] 14 mmol/L Normal 8-15 [facility] Comment on above: Order Comment: Speci men Type: BLOOD SPECIMENOrdering Facility: [facility] Address: [address] [place] [address] Performed By: #### 1 9123-9, 72988-0 ####[facility] LWCLIA [id number] [place] [id number] [place] AST [Catalytic activity/Vol] 30 U/L Normal 13-35 [facility] Comment on above: Order Comment: Speci men Type: BLOOD SPECIMENOrdering Facility: [facility] Address: [address] [place] [address] Performed By: #### 1 9123-9, ####[facility] LWCLIA [id number] [place] [address] [place] Bilirubin [Mass/Vol] 0.3 mg/dL Normal 0.2-1.3 [facility] Comment on above: Order Comment: Speci men Type: BLOOD SPECIMENOrdering Facility: [facility] Address: [address] [place] [address] Performed By: #### 1 9123-9, ####[facility] LWCLIA [id number] [place] [address] [place] Calcium [Mass/Vol] 9.1 mg/dL Normal 8.5-10.[address] [facility] Comment on above: Order Comment: Speci men Type: BLOOD SPECIMENOrdering Facility: [facility] Address: [address] [place] [address] Performed By: #### 1 9123-9, ####[facility] LWCLIA [id number] [place] [id number] [place] Chloride [Moles/Vol] 103 mmol/L Normal 98-107 [facility] Comment on above: Order Comment: Speci men Type: BLOOD SPECIMENOrdering Facility: [facility] Address: [address] [place], [place] [address] Performed By: #### 1 9123-9, ####[facility] LWCLIA [id number] [place] [id number] [place] CO2 [Moles/Vol] 24 mmol/L Normal 22-30 [facility] Comment on above: Order Comment: Speci men Type: BLOOD SPECIMENOrdering Facility: [facility] Address: [address] [place] [address] Performed By: #### 1 9123-9, 54861-3 ####[facility] LWCLIA [id number] [place] [id number] [place] Creatinine [Mass/Vol] 0.71 mg/dL Normal 0.58-0.96 [facility] Comment on above: Order Comment: Mookie roberts Type: BLOOD SPECIMENOrdering Facility: [facility] Address: [address] [place] [address] Performed By: #### 1 9123-9, 41003-3 ####[facility] LWCLIA [id number] [place] [id number] [place] eGFRcr SerPlBld CKD-EPI 2020 115 mL/min/1.73m??? Normal >=60 [facility] Comment on above: Order Comment: Mookie roberts Type: BLOOD SPECIMENOrdering Facility: [facility] Address: [address] [place] [address] Result Comment: Anne-Marie mated Glomerular Filtration Rate (eGFR) is calculated using the 2020 CKD-EPI creatinine equation. This equation utilizes serum creatinine, sex, and age as parameters. The creatinine assay has traceable calibration to isotope dilution-mass spectrometry. Refer to KDIGO guidelines for clinical interpretation. In patients with unstable renal function, e.g. those with acute kidney injury, the eGFR may not accurately reflect actual GFR. Performed By: #### 1 9123-9, 08669-1 ####[facility] LWCLIA [id number] [place] [id number] [place] Glucose [Mass/Vol] 107 mg/dL High 74-[address] [facility] Comment on above: Order Comment: Mookie roberts Type: BLOOD SPECIMENOrdering Facility: [facility] Address: [address] [place] [address] Result Comment: The [place] [employer] (ADA) provides guidance for cutoff values for fasting glucose and random glucose. The ADA defines fasting as no caloric intake for at least 8 hours. Fasting plasma glucose results between 100 to 125 mg/dL indicate increased risk for diabetes (prediabetes).Fasting plasma glucose results greater than or equal to 126 mg/dL meet the criteria for diagnosis of diabetes. In the absence of unequivocal hyperglycemia, results should be confirmed by repeat testing. In a patient with classic symptoms of hyperglycemia or hyperglycemic crisis, random plasma glucose results greater than or equal to 200 mg/dL meet the criteria for diagnosis of diabetes.Reference: Standards of Medical Care in Diabetes 2016, [place] [employer]. Diabetes Care. 2016.39(Suppl 1). Performed By: #### 1 9123-9, ####[facility] LWCLIA [id number] [place] [id number] [place] Potassium [Moles/Vol] 3.9 mmol/L Normal 3.7-5.1 [facility] Comment on above: Order Comment: Speci men Type: BLOOD SPECIMENOrdering Facility: [facility] Address: [address] [place] [address] Performed By: #### 1 9123-9, ####[facility] LWCLIA [id number] [place] [id number] [place] Protein [Mass/Vol] 7.3 g/dL Normal 6.3-8.[address] [facility] Comment on above: Order Comment: Speci men Type: BLOOD SPECIMENOrdering Facility: [facility] Address: [address] [place] [address] Performed By: #### 1 9123-9, ####[facility] LWCLIA [id number] [place] [id number] [place] Sodium [Moles/Vol] 141 mmol/L Normal 136-[address] [facility] Comment on above: Order Comment: Speci men Type: BLOOD SPECIMENOrdering Facility: [facility] Address: [address] [place] [address] Performed By: #### 1 9123-9, 45406-8 ####[facility] LWCLIA [id number] [place] [address] [place] Urea nitrogen [Mass/Vol] 21 mg/dL Normal 7-21 [facility] Comment on above: Order Comment: Speci men Type: BLOOD SPECIMENOrdering Facility: [facility] Address: [address] [place] [address] Performed By: #### 1 9123-9, 07948-8 ####[facility] LWCLIA [id number] [place] [address] [facility] [place] ED NOTEon 07-04-2025 ED NOTE Normal [facility] ED PROV NOTEon 07-04-2025 ED PROV NOTE Normal [facility] Magnesium SerPl-mCncon 07-04 Magnesium [Mass/Vol] 2.1 mg/dL Normal 1.7-2.3 [facility] Comment on above: Order Comment: Speci men Type: BLOOD SPECIMENOrdering Facility: [facility] Address: [address] [place], [place] [address] Performed By: #### 1 9123-9, 71465-4 ####[facility] LWCLIA [id number] [place] [id number] [place] US CHEST WALL/SOFT TISSUEon 07-04-2025 US CHEST WALL/SOFT TISSUE Normal [facility] COMPREHENSIVE METABOLIC PANE L Routineon 06-24-2025 Albumin [Mass/Vol] 4.6 g/dL 3.9 - 4.9 g/dL Si gncount includes the [facility] Work Phone: ALP [Catalytic activity/Vol] 116 U/L 44 - 121 IU/L [facility] [employer] Work Phone: ALT [Catalytic activity/Vol] 43 U/L High 0 - 32 IU/L [facility] [employer] Work Phone: AST [Catalytic activity/Vol] 25 U/L 0 - 40 IU/L [facility] [employer] Work Phone: Bilirubin [Mass/Vol] 0.3 mg/dL 0.0 - 1 .2 mg/dL [facility] [employer] Work Phone: Calcium [Mass/Vol] 9.4 mg/dL 8.7 - 10. 2 mg/dL [facility] [employer] Work Phone: Chloride [Moles/Vol] 102 mmol/L 96 - 10 6 mmol/L [facility] Work Phone: CO2 [Moles/Vol] 18 mmol/L Low 20 - 29 mmol/L [facility] Work Phone: Creatinine [Mass/Vol] 0.82 mg/dL 0.57 - 1.00 mg/dL [facility] Work Phone: GFR/1.73 sq M.predicted among non-blacks MDRD (S/P/Bld) [Vol rate/Area] 96 mL/min/{1.73_m2} >59 mL/min/1.73 [facility] Work Phone: Globulin (S) [Mass/Vol] 2.6 g/dL 1.5 - 4.5 g/dL [facility] Work Phone: Glucose [Mass/Vol] 148 mg/dL High 70 - 99 mg/dL [facility] Work Phone: Potassium [Moles/Vol] 4.1 mmol/L 3.5 - 5.2 mmol/L [facility] Work Phone: Protein [Mass/Vol] 7.2 g/dL 6.0 - 8.5 g/dL [facility] Work Phone: Sodium [Moles/Vol] 140 mmol/L 134 - 144 mmol/L [facility] Work Phone: Urea nitrogen [Mass/Vol] 10 mg/dL 6 - 20 mg/dL [facility] Work Phone: Urea nitrogen/Creatinine [Mass ratio] 12 mg/mg 9 - 23 [facility] Work Phone: DRUG ASSAY VALPROIC DIPROPYL ACETIC ACID TOTAL Routineon 06-24-2025 Valproate [Mass/Vol] 74 ug/mL 50 - 100 ug/mL [facility] Work Phone: CNOVon 06-21-2025 CNOV Normal [facility] CBC panel Auto (Bld)on 05-22 Erythrocyte distribution width (RBC) [Ratio] 13.1 % Normal 11.5-15.0 [facility] Comment on above: Order Comment: Speci men Type: BLOOD SPECIMENOrdering Facility: [facility] Address: [address] [place] [address] Performed By: #### 5 8410-2 ####[facility]ATORYCLIA [id number] [address] [place] Hematocrit (Bld) [Volume fraction] 39.3 % Normal 36.0-46.0 [facility] Comment on above: Order Comment: Speci men Type: BLOOD SPECIMENOrdering Facility: [facility] Address: [address] [place] [address] Performed By: #### 5 8410-2 ####[facility] LABORATORYCLIA [id number] [place] [address] [place] Hemoglobin (Bld) [Mass/Vol] 13.4 g/dL Normal 11.5-15.5 [facility] Comment on above: Order Comment: Speci men Type: BLOOD SPECIMENOrdering Facility: [facility] Address: [address] [place] [address] Performed By: #### 5 8410-2 ####[facility] LABORATORYCLIA [id number] [address] [place] MCH (RBC) [Entitic mass] 29.6 pg Normal 26.0-34.0 [facility] Comment on above: Order Comment: Speci men Type: BLOOD SPECIMENOrdering Facility: [facility] Address: [address] [place] [address] Performed By: #### 5 8410-2 ####[facility] LABORATORYCLIA [id number] [place] [address] [place] MCHC (RBC) [Mass/Vol] 34.1 g/dL Normal 30.5-36.0 [facility] Comment on above: Order Comment: Speci men Type: BLOOD SPECIMENOrdering Facility: [facility] Address: [address] [place] [address] Performed By: #### 5 8410-2 ####DAVI LABORATORYCLIA [id number] [place] [address] [place] MCV (RBC) [Entitic vol] 86.9 fL Normal 80.0-100.0 [facility] Comment on above: Order Comment: Speci men Type: BLOOD SPECIMENOrdering Facility: [facility] Address: [address] [place] [address] Performed By: #### 5 8410-2 ####[facility] LABORATORYCLIA [id number] [place] [id number] [place] Nucleated RBC (Bld) [#/Vol] 10*3/uL Normal <0.01 [facility] Comment on above: Order Comment: Speci men Type: BLOOD SPECIMENOrdering Facility: [facility] Address: [address] [place] [address] Performed By: #### 5 8410-2 ####[facility] LABORATORYCLIA [id number] [address] [place] Platelet mean volume (Bld) [Entitic vol] 9.6 fL Normal 9.0-12.7 [facility] Comment on above: Order Comment: Speci men Type: BLOOD SPECIMENOrdering Facility: [facility] Address: [address] [place] [address] Performed By: #### 5 8410-2 ####DAVI LABORATORYCLIA [id number] [address] [place] Platelets (Bld) [#/Vol] 263 10*3/uL Normal 150-400 [facility] Comment on above: Order Comment: Speci men Type: BLOOD SPECIMENOrdering Facility: [facility] Address: [address] [place] [address] Performed By: #### 5 8410-2 ####[facility] LABORATORYCLIA [id number] [place] [id number] [place] RBC (Bld) [#/Vol] 4.52 10*6/uL Normal 3.90-5.20 [facility] Comment on above: Order Comment: Speci men Type: BLOOD SPECIMENOrdering Facility: [facility] Address: [address] [place] [address] Performed By: #### 5 8410-2 ####DAVI LABORATORYCLIA [id number] [place] [address] [place] WBC (Bld) [#/Vol] 7.58 10*3/uL Normal 3.70-11.00 [facility] Comment on above: Order Comment: Speci men Type: BLOOD SPECIMENOrdering Facility: [facility] Address: [address] [place] [address] Performed By: #### 5 8410-2 ####D[facility] LABORATORYCLIA [id number] [place] [id number] [place] CNDSon 05-22-2025 CNDS HNO ID: [id number] Author: DELMI ROSENTHAL MD Service: Hospital Medicine Author Type: Physician Type: Discharge Summary Filed: 05/23/2025 15:01 Note Text: DISCHARGE SUMMARY PATIENT NAME: Rosalva Huang ADMISSION DATE: 05/18/2025 DISCHARGE DATE: 05/22/2025 ATTENDING PHYSICIAN: Delmi Rosenthal MD Code Status: Full Code PCP: No primary care provider on file. Highest Readmission Risk Score: 61 The 30 day readmissions risk score is derived from an internally validated risk model which evaluates patient level characteristics, utilization history, medication orders and lab results up until the day of discharge. Patients with a score of 39 or above are considered highest risk for readmission. Specific patient level drivers will be listed at the bottom of the summary. TRANSITIONS OF CARE CRITICAL ISSUES: GUIDO MEDICATION CHANGES: NA LAB MONITORING NEEDED: Test HFP When 1 week FOLLOW UP APPOINTMENTS: needs to scheduled Appointments for Next 60 Days Date Time Provider Location Dept Phone 05/30/2025 2:20 PM ARMEN KENNEDYJULIANE [place] [facility] [phone] 06/21/2025 11:00 AM JAJA MOSSralph [facility] [phone] REASON FOR HOSPITALIZATION/FINAL DIAGNOSIS: Right breast pain and discharge HOSPITAL PROBLEMS: Active Hospital Problems Diagnosis POA Hepatic steatosis Yes Obsessive-compulsive disorder, unspecified Yes At risk for allergic reaction to medication Yes Generalized anxiety disorder with panic attacks Yes Migraine without aura and without status migrainosus, not intractable Yes 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HCC) Yes Resolved Hospital Problems Diagnosis POA Acute mastitis Yes Cellulitis of chest wall Yes Metabolic encephalopathy No Urticaria Yes Exogenous Class 1 Obesity HOSPITAL COURSE: Rosalva Huang is a35 year old female with past medical history of bipolar disorder, multiple antibiotic allergies, who presented to the ED with left nipple discharge in setting of mastitis post nipple piercing. Patient given vancomycin with Benadryl and had mild allergic/itching reaction to it. Hx of anaphylactic allergy to cephalosporin-Keflex, other allergies include clindamycin, doxycycline, Bactrim and severe red man syndrome for vancomycin. Left breast US with no abscess noted. On 05/15 patient have a anaphylactic reaction post daptomycin on day 4, with angioedema and difficulty swelling with lip and throat with difficulty swelling. ON 05/16: patient developed reaction to meropenem as well, she kept on insisting to complete, switched to vancomycin to complete 7 days. On 05/17: patient had a reaction of vancomycin with the prep at the initiation she received solumedrol, Pepcid and Benadryl as well. Dr. Kern, seen the patient, completed her antibiotic course and she was cleared for discharge. The hospitalization complicated by elevated prolactin thought to be in the setting of respridal vs breast inflammation, MRI sella completed and free. Additionally, elevated liver chemistries with negative hepatitis panel, for out patient follow up. OPERATIONS/PROCEDURE DURING THIS HOSPITALIZATION: * No surgery found * None MRI CONSULTS DURING HOSPITALIZATION: Treatment Team: Attending Provider: Delmi Rosenthal MD Consulting: Duran Kern MD Primary Service: 3, [facility] PATIENT CONDITION AT DISCHARGE: Stable DISCHARGE DISPOSITION: Home with Self Care Discharge Physical Exam: VITAL SIGNS: BP 112/72 Pulse 88 Temp 36.7 ?C (98.1 ?F) Resp 17 Ht 162.6 cm (5' 4") Wt 85.7 kg (189 lb) LMP (LMP Unknown) SpO2 98% BMI 32.44 kg/m? Physical Exam Constitutional: General: She is not in acute distress. Appearance: She is not ill-appearing. HENT: Head: Normocephalic and atraumatic. Nose: No congestion. Eyes: Extraocular Movements: Extraocular movements intact. Pupils: Pupils are equal, round, and reactive to light. Cardiovascular: Rate and Rhythm: Normal rate and regular rhythm. Heart sounds: No murmur heard. Pulmonary: Effort: Pulmonary effort is normal. Breath sounds: Normal breath sounds. Abdominal: Palpations: Abdomen is soft. Tenderness: There is no abdominal tenderness. Musculoskeletal: General: Normal range of motion. Cervical back: Normal range of motion and neck supple. Skin: General: Skin is warm. Capillary Refill: Capillary refill takes less than 2 seconds. Comments: No breast redness, mild right breast tenderness. Neurological: General: No focal deficit present. Mental Status: She is oriented to person, place, and time. WOUND/SURGICAL SITE CARE: None SUPPLIES OR EQUIPMENT: None DIET: Resume your pre-hospital diet ACTIVITY AND EXERCISE: Resume pre-hospital activity FOLLOW UP APPOINTMENTS: Future Appointments Date Time Provider Department Center 05/30/2025 2:20 PM [facility] 11:00 AM Jaja Moss APRN.CAGER OPERATOR IADBEC [facility] ALLERGIES Allergen Re (more content not included)... Normal [facility] CONSULTon 05-22-2025 CONSULT HNO ID: [id number] Author: DURAN KERN MD Service: Infectious Disease Author Type: Physician Type: Consults Filed: 05/25/2025 20:55 Note Text: INFECTIOUS DISEASE CONSULT PROGRESS NOTES PATIENT NAME: Rosalva Huang SERVICE DATE: 05/22/2025 ASSESSMENT AND PLAN: Unresolved bilateral mastitis.--POA Unresolved left bilateral nipple infection due to piercing, rings have been removed. ---POA IV vancomycin ---slow infusions over 2 hrs and 50 mg of IV Benadryl with each dose. ( The patient cannot tolerate any other antibiotics unfortunately.) tolerating Methicillin-resistant Staphylococcus aureus screen was negative. HYPERPROLACTENEMIA --PROLACTIN--110.9 ordered mri brain to look for pit adenoma will need endocrinology cons inpt vs outpt . Multiple drug allergies including clindamycin, doxycycline, Keflex, Bactrim, vanco, and meropenem. d/w pt to go to [facility] after d/s for desensitization for pcn atleast pt agrees Bipolar disorder. . Transaminitis. Recent right upper quadrant ultrasound revealed hepatic steatosis and hepatitis screen was negative. . Obsessive-compulsive disorder. d/w pt and n staff interval hpi----breast cellulitis/ mastitis resolved MRI brain neg for pit microadenoma -continues with nipples discharge. prolactin level-110.9 d/w pt , nipple d/s is not infected fluid but is galactorrhea pt will need to follow with psych for meds rev/ change and will need endocrinology cons inpt vs outpt pt is tolerating slow Vancor infusion . (over 2 hrs) with benadryl mastitis has much resolved ok to d/s when otherwise ready . dc iv Vanco on d/s planning today . Multiple drug allergies including clindamycin, doxycycline, Keflex, Bactrim, vanco, and meropenem. d/w pt to go to [facility] after d/s for desensitization for pcn atleast pt agrees MEDICATIONS: Current Facility-Administered Medications Medication Dose Route Frequency clonazePAM 1 mg tab(s) (KlonoPIN) 1 mg ORAL DAILY PRN divalproex ER 1,000 mg tab(s) (DEPAKOTE ER) 1,000 mg ORAL AT BEDTIME escitalopram oxalate 20 mg tab(s) (LEXAPRO) 20 mg ORAL AT BEDTIME lamoTRIgine 100 mg tab(s) (LaMICtal) 100 mg ORAL AT BEDTIME risperiDONE (RisperDAL) tab(s) 3 mg 3 mg ORAL AT BEDTIME NaCl 0.9% iv flush bag 20 mL INTRAVENOUS PRN vancomycin iv piggyback 1.25 g in D5W 250 mL (VANCOCIN) 0.015 g/kg/dose INTRAVENOUS q 12 HR vancomycin dosing and monitoring per pharmacy OTHER As Directed diphenhydrAMINE 50 mg injection (BENADRYL) 50 mg INTRAVENOUS q 6 H PRN polyethylene glycol 3350 17 g packet 17 g ORAL DAILY senna-docusate 8.6-50 mg 1 tablet (SENNA-S) 1 tablet ORAL BID bisacodyl 10 mg suppository (DULCOLAX) 10 mg RECTAL DAILY PRN acetaminophen 1,000 mg tab(s) (TYLENOL) 1,000 mg ORAL q 6 H ibuprofen 600 mg tab(s) (MOTRIN) 600 mg ORAL q 6 H PRN OBJECTIVE PHYSICAL EXAM: BP 117/72 Pulse 95 Temp (Src) 98.1 (Oral) Resp 16 Ht 5' 4" (1.63m) Wt 189 lb (85.7kg) SpO2 97% BMI 32.43 kg/(m2). O2 Therapy: Room Air Skin: There is no evident rash. Neck: Supple. Oropharynx clear. No evidence of thrush. No cervical lymphadenopathy. Chest: Decreased air entry, bilateral bases. Few rales heard. Bilateral breast scratch mun[place] are present. Some cellulitic changes present. No nipple discharge at present. No significant tenderness on palpation of the breast. Abdomen: Soft, nontender. No organomegaly. Bowel sounds present. Extremities: Edema is present. The patient is moving all 4 extremities. Diagnostic tests reviewed for today's visit: Most recent labs and compared Most recent micro/ EKG Most recent imaging and compared Recent Labs 05/22/25 0733 05/21/25 0621 05/20/25 0453 WBC 7.58 6.55 6.95 HB 13.4 12.8 12.9 HCT 39.3 38.6 38.2 PLT 263 248 248 NA 139 140 140 K 4.4 4.2 4.3 CHLOR 105 106 103 CO2 21* 22 23 BUN 13 16 13 CREAT 0.66 0.70 0.75 GLUC 82 124* 89 CA 9.4 8.7 8.5 CRP <0.3 05/19/2025 Duran Kern MD 05/22/2025 4:07 PM Normal [facility] Comprehensive metabolic 2000 panelon 05-22-2025 Albumin [Mass/Vol] 3.9 g/dL Normal 3.9-4.9 [facility] Comment on above: Order Comment: Speci men Type: BLOOD SPECIMENOrdering Facility: [facility] Address: [address] [place] [address] Performed By: #### 2 4323-8 ####D[facility] LABORATORYCLIA [id number] [place] [id number] [place] ALP [Catalytic activity/Vol] 103 U/L Normal 34-123 [facility] Comment on above: Order Comment: Speci men Type: BLOOD SPECIMENOrdering Facility: [facility] Address: [facility] [place] [address] Performed By: #### 2 4323-8 ####DEDHAM LABORATORYCLIA [id number] [place] [id number] [place] ALT [Catalytic activity/Vol] 50 U/L High 7-38 [facility] Comment on above: Order Comment: Speci men Type: BLOOD SPECIMENOrdering Facility: [facility] Address: [address] [place] [address] Performed By: #### 2 4323-8 ####[facility] LABORATORYCLIA [id number] [place] [id number] [place] Anion gap [Moles/Vol] 13 mmol/L Normal 8-15 [facility] Comment on above: Order Comment: Speci men Type: BLOOD SPECIMENOrdering Facility: [facility] Address: [address] [place] [address] Performed By: #### 2 4323-8 ####[facility] LABORATORYCLIA [id number] [place] [address] [place] AST [Catalytic activity/Vol] 20 U/L Normal 13-35 [facility] Comment on above: Order Comment: Speci men Type: BLOOD SPECIMENOrdering Facility: [facility] Address: [address] [place] [address] Performed By: #### 2 4323-8 ####DEDHAM LABORATORYCLIA [id number] [place] [address] [place] Bilirubin [Mass/Vol] 0.3 mg/dL Normal 0.2-1.3 [facility] Comment on above: Order Comment: Speci men Type: BLOOD SPECIMENOrdering Facility: [facility] Address: [address] [place] [address] Performed By: #### 2 4323-8 ####[facility] LABORATORYCLIA [id number] [place] [id number] [place] Calcium [Mass/Vol] 9.4 mg/dL Normal 8.5-10.2 [facility] Comment on above: Order Comment: Speci men Type: BLOOD SPECIMENOrdering Facility: [facility] Address: [address] [place] [address] Performed By: #### 2 4323-8 ####[facility] LABORATORYCLIA [id number] [place] [id number] [place] Chloride [Moles/Vol] 105 mmol/L Normal 98-107 [facility] Comment on above: Order Comment: Speci men Type: BLOOD SPECIMENOrdering Facility: [facility] Address: [address] [place] [address] Performed By: #### 2 4323-8 ####DEDHAM LABORATORYCLIA [id number] [place] [id number] [place] CO2 [Moles/Vol] 21 mmol/L Low 22-30 [facility] Comment on above: Order Comment: Speci men Type: BLOOD SPECIMENOrdering Facility: [facility] Address: [address] [place] [address] Performed By: #### 2 4323-8 ####[facility] LABORATORYCLIA [id number] [place] [id number] [place] Creatinine [Mass/Vol] 0.66 mg/dL Normal 0.58-0.96 [facility] Comment on above: Order Comment: Speci men Type: BLOOD SPECIMENOrdering Facility: [facility] Address: [address] [place] [address] Performed By: #### 2 4323-8 ####DEDHAM LABORATORYCLIA [id number] [address] Creatinine and Glomerular filtration rate.predicted panel (S/P/Bld) 118 mL/min/1.73m??? Normal >=60 [facility] Comment on above: Order Comment: Speci men Type: BLOOD SPECIMENOrdering Facility: [facility] Address: [address] [place] [address] Result Comment: Anne-Marie mated Glomerular Filtration Rate (eGFR) is calculated using the 2020 CKD-EPI creatinine equation. This equation utilizes serum creatinine, sex, and age as parameters. The creatinine assay has traceable calibration to isotope dilution-mass spectrometry. Refer to KDIGO guidelines for clinical interpretation. In patients with unstable renal function, e.g. those with acute kidney injury, the eGFR may not accurately reflect actual GFR. Performed By: #### 2 4323-8 ####[facility] LABORATORYCLIA [id number] [place] [id number] [place] Glucose [Mass/Vol] 82 mg/dL Normal 74-99 [facility] Comment on above: Order Comment: Speci men Type: BLOOD SPECIMENOrdering Facility: [facility] Address: [address] [place] [address] Result Comment: The [place] Diabetes Association (ADA) provides guidance for cutoff values for fasting glucose and random glucose. The ADA defines fasting as no caloric intake for at least 8 hours. Fasting plasma glucose results between 100 to 125 mg/dL indicate increased risk for diabetes (prediabetes). Fasting plasma glucose results greater than or equal to 126 mg/dL meet the criteria for diagnosis of diabetes. In the absence of unequivocal hyperglycemia, results should be confirmed by repeat testing. In a patient with classic symptoms of hyperglycemia or hyperglycemic crisis, random plasma glucose results greater than or equal to 200 mg/dL meet the criteria for diagnosis of diabetes. Reference: Standards of Medical Care in Diabetes 2016, [place] Diabetes Association. Diabetes Care. 2016.39(Suppl 1). Performed By: #### 2 4323-8 ####DAVI LABORATORYCLIA [id number] [place] [address] [place] Potassium [Moles/Vol] 4.4 mmol/L Normal 3.7-5.1 [facility] Comment on above: Order Comment: Darvini alejandra Type: BLOOD SPECIMENOrdering Facility: [facility] Address: [address] [place] [address] Performed By: #### 2 4323-8 ####[facility] LABORATORYCLIA [id number] [place] [id number] [place] Protein [Mass/Vol] 6.6 g/dL Normal 6.3-8.0 [facility] Comment on above: Order Comment: Speci men Type: BLOOD SPECIMENOrdering Facility: [facility] Address: [address] [place] [address] Performed By: #### 2 4323-8 ####[facility] LABORATORYCLIA [id number] [place] [id number] [place] Sodium [Moles/Vol] 139 mmol/L Normal 136-144 [facility] Comment on above: Order Comment: Speci men Type: BLOOD SPECIMENOrdering Facility: [facility] Address: [address] [place] [id number] Performed By: #### 2 4323-8 ####DEDHAM LABORATORYCLIA [id number] [place] [id number] [place] Urea nitrogen [Mass/Vol] 13 mg/dL Normal 7-21 [facility] Comment on above: Order Comment: Speci men Type: BLOOD SPECIMENOrdering Facility: [facility] Address: [address] [place] [address] Performed By: #### 2 4323-8 ####DEDHAM LABORATORYCLIA [id number] [place] [id number] [facility] [place] ALLIED HEALTHon 05-21-2025 ALLIED HEALTH HNO ID: [id number] Author: FREDIS PAULINO RT(Natacha) Service: Radiology Author Type: Technologist Type: Allied Health Filed: 05/21/2025 15:04 Note Text: Radiology Service Progress Note PATIENT NAME: Rosalva Huang DATE OF SERVICE: May 21, 2025 TIME: 3:04 PM PATIENT IDENTITY VERIFICATION COMPLETED USING TWO (2) IDENTIFIERS: Name and Date of confirmed by patient verbally and Name and Date of confirmed by identification band. FALL SCREENING: Has the patient had 2 falls in the last year or 1 fall with injury or currently using an Ambulatory Assistive Device (Walker, Cane, Wheelchair, Crutches, etc.)? Inpatient: Screened on floor PATIENT GENDER DATA: Assigned female at . status: : No status: NO. PATIENT RELEVANT IMPLANT DATA REVIEWED: Yes PATIENT PRESENTS WITH AN IMPLANTABLE OR ATTACHED RECREATIONAL LEADER: No RADIOLOGY DEPARTMENT: MR; Exam(s) Completed: Head: Routine Brain. Aromatherapy Administered: No PERIPHERAL IV DATA: Not applicable SIGNED BY: RT Bubba(R) May 21, 2025 3:04 PM Normal [facility] CBC panel Auto (Bld)on 05-21 Erythrocyte distribution width (RBC) [Ratio] 13.0 % Normal 11.5-15.0 [facility] Comment on above: Order Comment: Speci men Type: BLOOD SPECIMEN [facility] Address: [address] [place] [address] Performed By: #### 4 091-5 #### [facility] CLIA [id number] [address] [place] [address] [place] Hematocrit (Bld) [Volume fraction] 38.6 % Normal 36.0-46.0 [facility] Comment on above: Order Comment: Speci men Type: BLOOD SPECIMEN [facility] Address: [address] [place] [address] Performed By: #### 4 091-5 #### [facility] CLIA [id number] [address] [place] [address] [place] Hemoglobin (Bld) [Mass/Vol] 12.8 g/dL Normal 11.5-15.5 [facility] Comment on above: Order Comment: Speci men Type: BLOOD SPECIMEN [facility] Address: [address] [place] [address] Performed By: #### 4 091-5 #### [facility] CLIA [id number] [address] [place] [address] [place] MCH (RBC) [Entitic mass] 29.2 pg Normal 26.0-34.0 [facility] Comment on above: Order Comment: Speci men Type: BLOOD SPECIMEN [facility] Address: [address] [place] [address] Performed By: #### 4 091-5 #### [facility] CLIA [id number] [address] [place] [address] [place] MCHC (RBC) [Mass/Vol] 33.2 g/dL Normal 30.5-36.0 [facility] Comment on above: Order Comment: Speci men Type: BLOOD SPECIMEN [facility] Address: [address] [place] [address] Performed By: #### 4 091-5 #### [facility] CLIA [id number] [address] [place] [address] MCV (RBC) [Entitic vol] 88.1 fL Normal 80.0-100.0 [facility] Comment on above: Order Comment: Speci men Type: BLOOD SPECIMEN [facility] Address: [address] [place] [address] Performed By: #### 4 091-5 #### [facility] CLIA [id number] [address] [place] [address] [place] Nucleated RBC (Bld) [#/Vol] 10*3/uL Normal <0.01 [facility] Comment on above: Order Comment: Speci men Type: BLOOD SPECIMEN [facility] Address: [address] [place] [address] Performed By: #### 4 091-5 #### [facility] CLIA [id number] [address] [place] [address] [place] Platelet mean volume (Bld) [Entitic vol] 9.7 fL Normal 9.0-12.7 [facility] Comment on above: Order Comment: Speci men Type: BLOOD SPECIMEN [facility] Address: [address] [place] [address] Performed By: #### 4 091-5 #### [facility] CLIA [id number] [address] [place] [address] [place] Platelets (Bld) [#/Vol] 248 10*3/uL Normal 150-400 [facility] Comment on above: Order Comment: Speci men Type: BLOOD SPECIMEN [facility] Address: [address] [place] [address] Performed By: #### 4 091-5 #### [facility] CLIA [id number] [address] [place] [address] [place] RBC (Bld) [#/Vol] 4.38 10*6/uL Normal 3.90-5.20 [facility] Comment on above: Order Comment: Speci men Type: BLOOD SPECIMEN [facility] Address: [address] [place] [address] Performed By: #### 4 091-5 #### [facility] CLIA [id number] [address] [place] [address] [place] WBC (Bld) [#/Vol] 6.55 10*3/uL Normal 3.70-11.00 [facility] Comment on above: Order Comment: Speci men Type: BLOOD SPECIMEN [facility] Address: [address], [place] [address] Performed By: #### 4 091-5 #### [facility] CLIA [id number] [address] [place] [address] [place] CONSULT PROGon 05-21-2025 CONSULT PROG HNO ID: [id number] Author: DURAN KERN MD Service: Infectious Disease Author Type: Physician Type: Consult Progress Note Filed: 05/22/2025 02:06 Note Text: INFECTIOUS DISEASE CONSULT PROGRESS NOTES PATIENT NAME: Rosalva Huang SERVICE DATE: 05/21/2025 ASSESSMENT AND PLAN: Unresolved bilateral mastitis.--POA Unresolved left bilateral nipple infection due to piercing, rings have been removed. ---POA IV vancomycin ---SLOW INFUSION over 2 hrs and 50 mg of IV Benadryl with each dose. ( The patient cannot tolerate any other antibiotics unfortunately.) tolerating Methicillin-resistant Staphylococcus aureus screen was negative. HYPERPROLACTENEMIA --PROLACTIN--110.9 ordered mri brain to look for pit adenoma will need endocrinology cons inpt vs outpt . Multiple drug allergies including clindamycin, doxycycline, Keflex, Bactrim, vanco, and meropenem. d/w pt to go to [facility] after d/s for desensitization for pcn atleast pt agrees Bipolar disorder. . Transaminitis. Recent right upper quadrant ultrasound revealed hepatic steatosis and hepatitis screen was negative. . Obsessive-compulsive disorder. d/w pt and n staff interval hpi--MRI brain neg for pit microadenoma -continues with nipples discharge. prolactin level-110.9 d/w pt , nipple d/s is not infected fluid but is galactorrhea pt will need to follow with psych for meds rev/ change and will need endocrinology cons inpt vs outpt pt is tolerating slow Vancor infusion . (over 2 hrs) with benadryl mastitis has much resolved ok to d/s when otherwise ready . dc iv Vanco on d/s planning .when pt agrees ( pt returned the very next day after last d/s) . Multiple drug allergies including clindamycin, doxycycline, Keflex, Bactrim, vanco, and meropenem. d/w pt to go to [facility] after d/s for desensitization for pcn atleast pt agrees MEDICATIONS: Current Facility-Administered Medications Medication Dose Route Frequency clonazePAM 1 mg tab(s) (KlonoPIN) 1 mg ORAL DAILY PRN divalproex ER 1,000 mg tab(s) (DEPAKOTE ER) 1,000 mg ORAL AT BEDTIME escitalopram oxalate 20 mg tab(s) (LEXAPRO) 20 mg ORAL AT BEDTIME lamoTRIgine 100 mg tab(s) (LaMICtal) 100 mg ORAL AT BEDTIME risperiDONE (RisperDAL) tab(s) 3 mg 3 mg ORAL AT BEDTIME NaCl 0.9% iv flush bag 20 mL INTRAVENOUS PRN vancomycin iv piggyback 1.25 g in D5W 250 mL (VANCOCIN) 0.015 g/kg/dose INTRAVENOUS q 12 HR vancomycin dosing and monitoring per pharmacy OTHER As Directed diphenhydrAMINE 50 mg injection (BENADRYL) 50 mg INTRAVENOUS q 6 H PRN polyethylene glycol 3350 17 g packet 17 g ORAL DAILY senna-docusate 8.6-50 mg 1 tablet (SENNA-S) 1 tablet ORAL BID bisacodyl 10 mg suppository (DULCOLAX) 10 mg RECTAL DAILY PRN acetaminophen 1,000 mg tab(s) (TYLENOL) 1,000 mg ORAL q 6 H OBJECTIVE PHYSICAL EXAM: BP 112/67 Pulse 94 Temp (Src) 98.1 (Oral) Resp 16 Ht 5' 4" (1.63m) Wt 189 lb (85.7kg) SpO2 95% BMI 32.43 kg/(m2). O2 Therapy: Room Air Skin: There is no evident rash. Neck: Supple. Oropharynx clear. No evidence of thrush. No cervical lymphadenopathy. Chest: Decreased air entry, bilateral bases. Few rales heard. Bilateral breast scratch munroe are present. Some cellulitic changes present. No nipple discharge at present. No significant tenderness on palpation of the breast. Abdomen: Soft, nontender. No organomegaly. Bowel sounds present. Extremities: Edema is present. The patient is moving all 4 extremities. Diagnostic tests reviewed for today's visit: Most recent labs and compared Most recent micro/ EKG Most recent imaging and compared Recent Labs 05/21/25 0621 05/20/25 0453 05/19/25 0555 WBC 6.55 6.95 8.73 HB 12.8 12.9 13.0 HCT 38.6 38.2 38.7 PLT 248 248 244 NA 140 140 142 K 4.2 4.3 3.9 CHLOR 106 103 106 CO2 22 23 23 BUN 16 13 16 CREAT 0.70 0.75 0.68 GLUC 124* 89 88 CA 8.7 8.5 8.7 CRP <0.3 05/19/2025 Duran Kern MD 05/21/2025 8:56 PM Normal [facility] Comprehensive metabolic 2000 panelon 05-21-2025 Albumin [Mass/Vol] 3.7 g/dL Low 3.9-4.9 [facility] Comment on above: Order Comment: Speci men Type: BLOOD SPECIMEN Ordering Facility: [facility] Address: [address] [place] [address] Performed By: #### 4 091-5 #### [facility] CLIA [id number] [address] [place] [address] [place] ALP [Catalytic activity/Vol] 99 U/L Normal 34-123 [facility] Comment on above: Order Comment: Speci men Type: BLOOD SPECIMEN Ordering Facility: [facility] Address: [address] [place] [address] Performed By: #### 4 091-5 #### [facility] CLIA [id number] [address] [place] [address] [place] ALT [Catalytic activity/Vol] 52 U/L High 7-38 [facility] Comment on above: Order Comment: Speci men Type: BLOOD SPECIMEN Ordering Facility: [facility] Address: [address] [place] [address] Performed By: #### 4 091-5 #### [facility] CLIA [id number] [address] [place] [address] [place] Anion gap [Moles/Vol] 12 mmol/L Normal 8-15 [facility] Comment on above: Order Comment: Speci men Type: BLOOD SPECIMEN Ordering Facility: [facility] Address: [address] [place] [address] Performed By: #### 4 091-5 #### [facility] CLIA [id number] [address] [place] [address] [place] AST [Catalytic activity/Vol] 21 U/L Normal 13-35 [facility] Comment on above: Order Comment: Speci men Type: BLOOD SPECIMEN Ordering Facility: [facility] Address: [address] [place] [address] Performed By: #### 4 091-5 #### [facility] CLIA [id number] [address] [place] [address] [place] Bilirubin [Mass/Vol] 0.2 mg/dL Normal 0.2-1.3 [facility] Comment on above: Order Comment: Speci men Type: BLOOD SPECIMEN Ordering Facility: [facility] Address: [address] [place] [address] Performed By: #### 4 091-5 #### [facility] CLIA [id number] [address] [place] [address] [place] Calcium [Mass/Vol] 8.7 mg/dL Normal 8.5-10.2 [facility] Comment on above: Order Comment: Speci men Type: BLOOD SPECIMEN Ordering Facility: [facility] Address: [address] [place] [address] Performed By: #### 4 091-5 #### [facility] CLIA [id number] [address] [place] [address] [place] Chloride [Moles/Vol] 106 mmol/L Normal 98-107 [facility] Comment on above: Order Comment: Speci men Type: BLOOD SPECIMEN Ordering Facility: [facility] Address: [address] [place] [address] Performed By: #### 4 091-5 #### [facility] CLIA [id number] [address] [place] [address] [place] CO2 [Moles/Vol] 22 mmol/L Normal 22-30 [facility] Comment on above: Order Comment: Speci men Type: BLOOD SPECIMEN Ordering Facility: [facility] Address: [address] [place] [address] Performed By: #### 4 091-5 #### [facility] CLIA [id number] [address] [place] [address] [place] Creatinine [Mass/Vol] 0.70 mg/dL Normal 0.58-0.96 [facility] Comment on above: Order Comment: Mookie roberts Type: BLOOD SPECIMEN Ordering Facility: [facility] Address: [address] [place] [address] Performed By: #### 4 091-5 #### [facility] CLIA [id number] [place] [address] [place] Creatinine and Glomerular filtration rate.predicted panel (S/P/Bld) 117 mL/min/1.73m??? Normal >=60 [facility] Comment on above: Order Comment: Darvin alejandra Type: BLOOD SPECIMEN Ordering Facility: [facility] Address: [address] [place] [address] Result Comment: Anne-Marie mated Glomerular Filtration Rate (eGFR) is calculated using the 2020 CKD-EPI creatinine equation. This equation utilizes serum creatinine, sex, and age as parameters. The creatinine assay has traceable calibration to isotope dilution-mass spectrometry. Refer to KDIGO guidelines for clinical interpretation. In patients with unstable renal function, e.g. those with acute kidney injury, the eGFR may not accurately reflect actual GFR. Performed By: #### 4 091-5 #### [facility] CLIA [id number] [address] [place] [address] [place] Glucose [Mass/Vol] 124 mg/dL High 74-99 [facility] Comment on above: Order Comment: Mookie roberts Type: BLOOD SPECIMEN Ordering Facility: [facility] Address: [address] [place] [address] Result Comment: The [place] Diabetes Association (ADA) provides guidance for cutoff values for fasting glucose and random glucose. The ADA defines fasting as no caloric intake for at least 8 hours. Fasting plasma glucose results between 100 to 125 mg/dL indicate increased risk for diabetes (prediabetes). Fasting plasma glucose results greater than or equal to 126 mg/dL meet the criteria for diagnosis of diabetes. In the absence of unequivocal hyperglycemia, results should be confirmed by repeat testing. In a patient with classic symptoms of hyperglycemia or hyperglycemic crisis, random plasma glucose results greater than or equal to 200 mg/dL meet the criteria for diagnosis of diabetes. Reference: Standards of Medical Care in Diabetes 2016, [place] [employer] Association. Diabetes Care. 2016.39(Suppl 1). Performed By: #### 4 091-5 #### [facility] CLIA [id number] [address] [place] [address] [place] Potassium [Moles/Vol] 4.2 mmol/L Normal 3.7-5.1 [facility] Comment on above: Order Comment: Speci men Type: BLOOD SPECIMEN Ordering Facility: [facility] Address: [address] [place] [address] Performed By: #### 4 091-5 #### [facility] CLIA [id number] [address] [place] [address] [place] Protein [Mass/Vol] 5.9 g/dL Low 6.3-8.0 [facility] Comment on above: Order Comment: Speci men Type: BLOOD SPECIMEN Ordering Facility: [facility] Address: [address] [place] [address] Performed By: #### 4 091-5 #### [facility] CLIA [id number] [address] [place] [address] [place] Sodium [Moles/Vol] 140 mmol/L Normal 136-144 [facility] Comment on above: Order Comment: Speci men Type: BLOOD SPECIMEN Ordering Facility: [facility] Address: [address] [place] [address] Performed By: #### 4 091-5 #### [facility] CLIA [id number] [address] [place] [address] [place] Urea nitrogen [Mass/Vol] 16 mg/dL Normal 7-21 [facility] Comment on above: Order Comment: Speci men Type: BLOOD SPECIMEN Ordering Facility: [facility] Address: [address] [place] [address] Performed By: #### 4 091-5 #### [facility] CLIA [id number] [address] [place] [address] [place] MRI BRAIN WO IVCONon 025 MRI BRAIN WO IVCON * * *Final Report* * * DATE OF EXAM: May 21 2025 3:36PM [facility]VM 0294 - MRI BRAIN WO IVCON / PROCEDURE REASON: Headache, papilledema * * * * Physician Interpretation * * * * EXAMINATION: MRI BRAIN WO IVCON HISTORY: Headache, papilledema TECHNIQUE: MRI brain routine protocol without contrast. M: [id number] COMPARISON: MRI/MRA brain 01/22/2021 RESULT: Acute Change: No evidence of an acute intracranial process. Hemorrhage: No evidence of prior parenchymal hemorrhage on the susceptibility weighted sequences. Mass Lesion/ Mass Effect: No evidence of an intracranial mass, extra-axial fluid collection, or significant localized mass effect. Chronic Change: The white matter is within normal limits of signal intensity for age. Parenchyma: No significant parenchymal volume loss for age. Ventricles: Normal caliber and morphology. Skull Base: Hypothalamic and pituitary region are grossly normal. Craniocervical junction is normal. No significant marrow replacement process. Vasculature: Major intracranial arteries and dural venous sinuses demonstrate typical flow voids, suggesting patency by spin echo criteria. Other: Symmetric normal caliber of each optic nerve sheath without evidence of optic disc cupping. The paranasal sinuses and mastoid air cells are clear. The extracranial soft tissues are unremarkable. IMPRESSION: Age-appropriate unremarkable brain without acute findings or findings to explain the reported symptoms. [employer] In[employer]: ZACHARY Transcribe Date/Time: May 21 2025 3:38P Dictated by : DWAYNE WALDROP MD This examination was interpreted and the report reviewed and electronically signed by: DWAYNE WALDROP MD on May 21 2025 3:39PM EST [id number] Normal [facility] CBC panel Auto (Bld)on 05-20 Erythrocyte distribution width (RBC) [Ratio] 13.3 % Normal 11.5-15.0 [facility] Comment on above: Order Comment: Speci men Type: BLOOD SPECIMENOrdering Facility: [facility] Address: [address] [place] [address] Performed By: #### 5 8410-2 ####[facility] [id number] [place] [address] [place] Hematocrit (Bld) [Volume fraction] 38.2 % Normal 36.0-46.0 [facility] Comment on above: Order Comment: Speci men Type: BLOOD SPECIMENOrdering Facility: [facility] Address: [address] [place] [address] Performed By: #### 5 8410-2 ####[facility] [id number] [address] [place] Hemoglobin (Bld) [Mass/Vol] 12.9 g/dL Normal 11.5-15.5 [facility] Comment on above: Order Comment: Speci men Type: BLOOD SPECIMENOrdering Facility: [facility] Address: [address] [place] [address] Performed By: #### 5 8410-2 ####[facility]ORYCLIA [id number] [place] [address] [place] MCH (RBC) [Entitic mass] 30.1 pg Normal 26.0-34.0 [facility] Comment on above: Order Comment: Speci men Type: BLOOD SPECIMENOrdering Facility: [facility] Address: [address] [place] [address] Performed By: #### 5 8410-2 ####[facility] [id number] [place] [address] [place] MCHC (RBC) [Mass/Vol] 33.8 g/dL Normal 30.5-36.0 [facility] Comment on above: Order Comment: Speci men Type: BLOOD SPECIMENOrdering Facility: [facility] Address: [address] [place] [address] Performed By: #### 5 8410-2 ####[facility] [id number] [place] [address] [place] MCV (RBC) [Entitic vol] 89.0 fL Normal 80.0-100.0 [facility] Comment on above: Order Comment: Speci men Type: BLOOD SPECIMENOrdering Facility: [facility] Address: [address] [place] [address] Performed By: #### 5 8410-2 ####[facility] [id number] [place] [id number] [place] Nucleated RBC (Bld) [#/Vol] 10*3/uL Normal <0.01 [facility] Comment on above: Order Comment: Speci men Type: BLOOD SPECIMENOrdering Facility: [facility] Address: [address] [place] [address] Performed By: #### 5 8410-2 ####[facility]ORYCLIA [id number] [place] [address] [place] Platelet mean volume (Bld) [Entitic vol] 9.9 fL Normal 9.0-12.7 [facility] Comment on above: Order Comment: Speci men Type: BLOOD SPECIMENOrdering Facility: [facility] Address: [address] [place] [address] Performed By: #### 5 8410-2 ####[facility]ORYCLIA [id number] [place] [id number] [place] Platelets (Bld) [#/Vol] 248 10*3/uL Normal 150-400 [facility] Comment on above: Order Comment: Speci men Type: BLOOD SPECIMENOrdering Facility: [facility] Address: [address] [place] [address] Performed By: #### 5 8410-2 ####[facility] [id number] [place] [address] [place] RBC (Bld) [#/Vol] 4.29 10*6/uL Normal 3.90-5.20 [facility] Comment on above: Order Comment: Speci men Type: BLOOD SPECIMENOrdering Facility: [facility] Address: [address] [place] [address] Performed By: #### 5 8410-2 ####[facility]ORYCLIA [id number] [place] [id number] [place] WBC (Bld) [#/Vol] 6.95 10*3/uL Normal 3.70-11.00 [facility] Comment on above: Order Comment: Speci men Type: BLOOD SPECIMENOrdering Facility: [facility] Address: [address] [place] [address] Performed By: #### 5 8410-2 ####[facility] [id number] [place] [address] [place] CONSULT PROGon 05-20-2025 CONSULT PROG HNO ID: [id number] Author: DURAN KERN MD Service: Infectious Disease Author Type: Physician Type: Consult Progress Note Filed: 05/21/2025 05:53 Note Text: INFECTIOUS DISEASE CONSULT PROGRESS NOTES PATIENT NAME: Rosalva Huang SERVICE DATE: 05/20/2025 ASSESSMENT AND PLAN: Unresolved bilateral mastitis.--POA Unresolved left bilateral nipple infection due to piercing, rings have been removed. ---POA IV vancomycin ---SLOW INFUSION over 2 hrs and 50 mg of IV Benadryl with each dose. The patient cannot tolerate any other antibiotics unfortunately. tolerating Methicillin-resistant Staphylococcus aureus screen was negative. HYPERPROLACTENEMIA --PROLACTIN--110.9 ordered mri brain to look for pit adenoma will need endocrinology cons inpt vs outpt . Multiple drug allergies including clindamycin, doxycycline, Keflex, Bactrim, vanco, and meropenem. d/[facility] after d/s for desensitization for pcn atleast pt agrees Bipolar disorder. . Transaminitis. Recent right upper quadrant ultrasound revealed hepatic steatosis and hepatitis screen was negative. . Obsessive-compulsive disorder. d/w pt and n staff interval hpi---continues with nipples discharged. prolactin level-110.9 ordered mri brain to look for pit adenoma will need endocrinology cons inpt vs outpt pt is tolerating slow Vancor infusion . (over 2 hrs) with benadryl continue . Multiple drug allergies including clindamycin, doxycycline, Keflex, Bactrim, vanco, and meropenem. d/w pt to go to alergist after d/s for desensitization for pcn atleast pt agrees MEDICATIONS: Current Facility-Administered Medications Medication Dose Route Frequency clonazePAM 1 mg tab(s) (KlonoPIN) 1 mg ORAL DAILY PRN divalproex ER 1,000 mg tab(s) (DEPAKOTE ER) 1,000 mg ORAL AT BEDTIME escitalopram oxalate 20 mg tab(s) (LEXAPRO) 20 mg ORAL AT BEDTIME lamoTRIgine 100 mg tab(s) (LaMICtal) 100 mg ORAL AT BEDTIME risperiDONE (RisperDAL) tab(s) 3 mg 3 mg ORAL AT BEDTIME NaCl 0.9% iv flush bag 20 mL INTRAVENOUS PRN vancomycin iv piggyback 1.25 g in D5W 250 mL (VANCOCIN) 0.015 g/kg/dose INTRAVENOUS q 12 HR vancomycin dosing and monitoring per pharmacy OTHER As Directed diphenhydrAMINE 50 mg injection (BENADRYL) 50 mg INTRAVENOUS q 6 H PRN polyethylene glycol 3350 17 g packet 17 g ORAL DAILY senna-docusate 8.6-50 mg 1 tablet (SENNA-S) 1 tablet ORAL BID bisacodyl 10 mg suppository (DULCOLAX) 10 mg RECTAL DAILY PRN oxyCODONE IR 5 mg tab(s) (ROXICODONE) 5 mg ORAL q 6 H PRN keTORolac 15 mg injection (Toradol) 15 mg INTRAVENOUS q 6 H PRN acetaminophen 1,000 mg tab(s) (TYLENOL) 1,000 mg ORAL q 6 H OBJECTIVE PHYSICAL EXAM: BP 116/76 Pulse 77 Temp (Src) 97.7 (Oral) Resp 16 Ht 5' 4" (1.63m) Wt 189 lb (85.7kg) SpO2 95% BMI 32.43 kg/(m2). O2 Therapy: Room Air Skin: There is no evident rash. Neck: Supple. Oropharynx clear. No evidence of thrush. No cervical lymphadenopathy. Chest: Decreased air entry, bilateral bases. Few rales heard. Bilateral breast scratch munroe are present. Some cellulitic changes present. No nipple discharge at present. No significant tenderness on palpation of the breast. Abdomen: Soft, nontender. No organomegaly. Bowel sounds present. Extremities: Edema is present. The patient is moving all 4 extremities. Diagnostic tests reviewed for today's visit: Most recent labs and compared Most recent micro/ EKG Most recent imaging and compared Recent Labs 05/20/25 0453 05/19/25 0555 05/18/25 1540 WBC 6.95 8.73 11.65* HB 12.9 13.0 14.4 HCT 38.2 38.7 43.7 PLT 248 244 261 NA 140 142 140 K 4.3 3.9 3.8 CHLOR 103 106 104 CO2 23 23 24 BUN 13 16 18 CREAT 0.75 0.68 0.74 GLUC 89 88 76 CA 8.5 8.7 9.2 CRP <0.3 05/19/2025 Duran Kern MD 05/20/2025 8:47 PM [facility] CONSULT PROG HNO ID: [id number] Author: LIZETH TIWARI RPh Service: Pharmacy Author Type: Pharmacist Type: Consult Progress Note Filed: 05/20/2025 16:43 Note Text: PHARMACY VANCOMYCIN DOSING NOTE Patient Name: Rosalva Huang Admission Date: 05/18/2025 Date of Consult: 05/20/2025 Time of Consult: 4:42 PM Indication: Skin/soft tissue infection Goal Range: 10-20 mcg/mL RECOMMENDATIONS/PLAN: Pharmacy consulted for vancomycin dosing for Rosalva Huang, a 35 year old female. 1. Patient is currently ordered Vancomycin 1.25 g IV q12h. Today is day 3 of therapy. 2. The most recent vancomycin level was 12.1 mcg/mL drawn at 16:05 on 05/20/2025. This is a 10.5 hour level on the 3rd day of therapy. 3. The present dose of vancomycin is the recommended dosage for this patient at this time. Continue therapy as prescribed. 4. The next vancomycin level will be ordered for 05/23 unless clinically indicated sooner. (Pharmacy will order) We will follow patient renal function, vancomycin levels and doses with you during the course of therapy. Additional recommendations will appear in follow up notes. If you have any questions, [place] [phone]. Age: [age] year old Allergies: ALLERGIES Allergen Reactions Meropenem Rash, Hives, Swelling, Itching, Angioedema Clindamycin Hives Diffuse hives and angioedema of upper lip within 30 minutes of receiving 1st dose. Daptomycin Anaphylaxis Doxycycline Hives Diffuse hives 30 minutes after 1st dose. Diffuse hives and x1 episode of emesis 30 minutes after 2nd dose. Fluconazole Rash Required IV diphenhydramine 01/06/2025 Keflex [Cephalexin] Anaphylaxis 03/13/2025 Tolerated graded dose amoxicillin challenge Diffuse rash with upper lip and tongue swelling 15 minutes after first dose. Onion GI Upset Sulfamethoxazole-Tr* Hives Vancomycin Itching Flushing and pruritus consistent with vancomycin infusion reaction. Please refer to Allergy note from 01/05/2025 for details. Adhesive Tape (Rita* Rash, Itching Patient reports unable to tolerate band-aids after a procedure. She noted redness and itching at site of band aid. Mosquitos Swelling Promethazine Unknown Other Reaction(s): GI Upset Sunscreen Rash Tingle tanning lotion Zyrtec [Cetirizine * Hives, Other: See Comments Hives and palpitations within 30 minutes of 1st dose. Tolerates Benadryl without issue. No contraindication to trying other antihistamines such as Arthur or Claritin. Last 3 Encounter Wt Readings: Date: Wt: 05/18/2025 85.7 kg (189 lb) 05/18/2025 86.1 kg (189 lb 13.1 oz) 05/11/2025 88.5 kg (195 lb) Last 1 Encounter Ht Readings: Date: Ht: 05/18/2025 162.6 cm (5' 4") CrCl: 112 mL/min Temp (24hrs), Av.6 ?C (97.9 ?F), Min:36.5 ?C (97.7 ?F), Max:36.7 ?C (98.1 ?F) - Current Temp: 36.7 ?C (98.1 ?F) Labs BUN (mg/dL) Date Value 05/20/2025 13 05/19/2025 16 05/18/2025 18 Creatinine (mg/dL) Date Value 05/20/2025 0.75 05/19/2025 0.68 05/18/2025 0.74 WBC (k/uL) Date Value 05/20/2025 6.95 05/19/2025 8.73 05/18/2025 11.65 (H) Vancomycin Levels: Vancomycin (ug/mL) Date/Time Value 05/20/2025 1602 12.1 Lizeth Tiwari [facility] Normal [facility] Comprehensive metabolic 2000 panelon 05-20-2025 Albumin [Mass/Vol] 3.6 g/dL Low 3.9-4.9 [facility] Comment on above: Order Comment: Speci men Type: BLOOD SPECIMENOrdering Facility: [facility] Address: [address] [place] [address] Performed By: #### 2 4323-8 ####[facility]ORATORYCLIA [id number] [place] [id number] [place] ALP [Catalytic activity/Vol] 104 U/L Normal 34-123 [facility] Comment on above: Order Comment: Speci men Type: BLOOD SPECIMENOrdering Facility: [facility] Address: [address] [place] [address] Performed By: #### 2 4323-8 ####[facility]ORYCLIA [id number] [place] [id number] [place] ALT [Catalytic activity/Vol] 64 U/L High 7-38 [facility] Comment on above: Order Comment: Speci men Type: BLOOD SPECIMENOrdering Facility: [facility] Address: [address] [place] [address] Performed By: #### 2 4323-8 ####[facility]ATORYCLIA [id number] [place] [address] [place] Anion gap [Moles/Vol] 14 mmol/L Normal 8-15 [facility] Comment on above: Order Comment: Speci men Type: BLOOD SPECIMENOrdering Facility: [facility] Address: [address] [place] [address] Performed By: #### 2 4323-8 ####[facility] LABORATORYCLIA [id number] [place] [address] [place] AST [Catalytic activity/Vol] 32 U/L Normal 13-35 [facility] Comment on above: Order Comment: Speci men Type: BLOOD SPECIMENOrdering Facility: [facility] Address: [address] [place] [address] Performed By: #### 2 4323-8 ####[facility] LABORATORYCLIA [id number] [place] [id number] [place] Bilirubin [Mass/Vol] 0.4 mg/dL Normal 0.2-1.3 [facility] Comment on above: Order Comment: Speci men Type: BLOOD SPECIMENOrdering Facility: [facility] Address: [address] [place] [address] Performed By: #### 2 4323-8 ####[facility] LABORATORYCLIA [id number] [place] [address] [place] Calcium [Mass/Vol] 8.5 mg/dL Normal 8.5-10.2 [facility] Comment on above: Order Comment: Speci men Type: BLOOD SPECIMENOrdering Facility: [facility] Address: [address] [place] [address] Performed By: #### 2 4323-8 ####[facility] LABORATORYCLIA [id number] [place] [id number] [place] Chloride [Moles/Vol] 103 mmol/L Normal 98-107 [facility] Comment on above: Order Comment: Speci men Type: BLOOD SPECIMENOrdering Facility: [facility] Address: [address] [place] [address] Performed By: #### 2 4323-8 ####[facility] LABORATORYCLIA [id number] [place] [id number] [place] CO2 [Moles/Vol] 23 mmol/L Normal 22-30 [facility] Comment on above: Order Comment: Speci men Type: BLOOD SPECIMENOrdering Facility: [facility] Address: [address] [place] [address] Performed By: #### 2 4323-8 ####[facility] LABORATORYCLIA [id number] [place] [id number] [place] Creatinine [Mass/Vol] 0.75 mg/dL Normal 0.58-0.96 [facility] Comment on above: Order Comment: Speci men Type: BLOOD SPECIMENOrdering Facility: [facility] Address: [address] [place] [address] Performed By: #### 2 4323-8 ####[facility] LABORATORYCLIA [id number] [place] [id number] [place] Creatinine and Glomerular filtration rate.predicted panel (S/P/Bld) 107 mL/min/1.73m??? Normal >=60 [facility] Comment on above: Order Comment: Mookie roberts Type: BLOOD SPECIMENOrdering Facility: [facility] Address: [address] [place] [address] Result Comment: Anne-Marie mated Glomerular Filtration Rate (eGFR) is calculated using the 2020 CKD-EPI creatinine equation. This equation utilizes serum creatinine, sex, and age as parameters. The creatinine assay has traceable calibration to isotope dilution-mass spectrometry. Refer to KDIGO guidelines for clinical interpretation. In patients with unstable renal function, e.g. those with acute kidney injury, the eGFR may not accurately reflect actual GFR. Performed By: #### 2 4323-8 ####[facility] LABORATORYCLIA [id number] [place] [id number] [place] Glucose [Mass/Vol] 89 mg/dL Normal 74-99 [facility] Comment on above: Order Comment: Mookie roberts Type: BLOOD SPECIMENOrdering Facility: [facility] Address: [address] [place] [address] Result Comment: The [place] Diabetes Association (ADA) provides guidance for cutoff values for fasting glucose and random glucose. The ADA defines fasting as no caloric intake for at least 8 hours. Fasting plasma glucose results between 100 to 125 mg/dL indicate increased risk for diabetes (prediabetes). Fasting plasma glucose results greater than or equal to 126 mg/dL meet the criteria for diagnosis of diabetes. In the absence of unequivocal hyperglycemia, results should be confirmed by repeat testing. In a patient with classic symptoms of hyperglycemia or hyperglycemic crisis, random plasma glucose results greater than or equal to 200 mg/dL meet the criteria for diagnosis of diabetes. Reference: Standards of Medical Care in Diabetes 2016, [place] Diabetes Association. Diabetes Care. 2016.39(Suppl 1). Performed By: #### 2 4323-8 ####[facility] LABORATORYCLIA [id number] [place] [id number] [place] Potassium [Moles/Vol] 4.3 mmol/L Normal 3.7-5.1 [facility] Comment on above: Order Comment: Mookie roberts Type: BLOOD SPECIMENOrdering Facility: [facility] Address: [address] [place] [address] Performed By: #### 2 4323-8 ####[facility] LABORATORYCLIA [id number] [place] [id number] [place] Protein [Mass/Vol] 6.0 g/dL Low 6.3-8.0 [facility] Comment on above: Order Comment: Speci men Type: BLOOD SPECIMENOrdering Facility: [facility] Address: [address] [place] [address] Performed By: #### 2 4323-8 ####[facility] LABORATORYCLIA [id number] [place] [id number] [place] Sodium [Moles/Vol] 140 mmol/L Normal 136-144 [facility] Comment on above: Order Comment: Speci men Type: BLOOD SPECIMENOrdering Facility: [facility] Address: [address] [place] [address] Performed By: #### 2 4323-8 ####[facility] LABORATORYCLIA [id number] [place] [id number] [place] Urea nitrogen [Mass/Vol] 13 mg/dL Normal 7-21 [facility] Comment on above: Order Comment: Speci men Type: BLOOD SPECIMENOrdering Facility: [facility] Address: [address] [place] [address] Performed By: #### 2 4323-8 ####[facility] LABORATORYCLIA [id number] [place] [id number] [place] HCG Preg Ur Qlon 05-20-2025 HCG ( test) Ql (U) Negative Normal Negative [facility] Comment on above: Order Comment: Speci men Type: URINE SPECIMEN [facility] Address: [address] [place] [address] Result Comment: This test is intended to aid in the early detection of . Very dilute urine samples, as indicated by a low specific gravity, may not contain community health program representative levels of hCG. This test detects intact hCG only. This test does not reliably detect hCG degradation products, including free-beta subunit and beta-core fragment. Therefore, this test may show reduced reactivity in urine after 8 weeks gestation. A number of conditions other than , including trophoblastic disease and certain non-trophoblastic neoplasms cause elevated levels of hCG. As with any assay employing mouse antibodies, the possibility exists for interference by human anti-mouse antibodies (HAMA) in the specimen. The test provides a presumptive diagnosis for . Performed By: #### 2 106-3 #### [facility] CLIA [id number] [place] NURSING PROGon 05-20-2025 NURSING PROG HNO ID: [id number] Author: BETSEY MCKEE, RN Service: PICC Team Author Type: Registered Nurse Type: Nursing Progress Note Filed: 05/20/2025 17:43 Note Text: Called to room by bedside RN for difficult IV access. Placed 22g and 1in catheter in right forearm Pt tolerated well. Brisk blood return and flushed with 10cc of normal saline. RN made aware. Normal [facility] Prolactin SerPl-mCncon 05-20 Prolactin [Mass/Vol] 110.9 ng/mL High 4.4-33.8 [facility] Comment on above: Order Comment: Speci men Type: BLOOD SPECIMEN [facility] Address: [address] [place] [address] Result Comment: Prol actin test is performed using the [employer] Electrochemiluminescence Immunoassay method. Results obtained with different methods or kits cannot be used interchangeably. Performed By: #### 2 842-3 #### [facility] CLIA [id number] [address] [place] [address] [place] Vancomycin Oklee SerPl-mCncon 05-20-2025 Vancomycin random [Mass/Vol] 12.1 ug/mL Normal 10.0-20.0 [facility] Comment on above: Order Comment: Speci men Type: BLOOD SPECIMEN [facility] Address: [address] [place] [address] Result Comment: Refe rence ranges and high/low indicator flags are provided as general guidelines only. The treating physician must determine appropriate target levels/dosing based on the specific clinical situation. Performed By: #### 4 091-5 #### [facility] CLIA [id number] [address] [place] [address] [place] CASE MGT INIT ASSESon 2024 CASE MGT INIT KENISHA HNO ID: [id number] Author: ANABELLE LE, ? Service: Care Management Author Type: Assistive Technology Trainer Type: Care Mgt Initial Assessment Filed: 05/19/2025 11:29 Note Text: CARE MANAGEMENT: ASSESSMENT AND DISCHARGE PLAN SERVICE DATE: May 19, 2025 SERVICE TIME: 11:14 AM PCP: No primary care provider on file. Primary Contact: Extended Emergency Contact Information Primary Emergency Contact: Adri Osorio Mobile Relation: Significant other Secondary Emergency Contact: Zeynep Manzanares Mobile Relation: Aunt Admission Status: Inpatient Insurance Provider: [employer] Discharge Planning requested by: Per Department Practice Potential Transition Plans Home Care, Home Care Pharmacy, To Be Determined Advance Directives Current Advance Directive: Health Care Power of Forestry Contractor In Chart: Yes Up To Date and Valid: Yes Current Living Arrangements and Support Lives with: Family members, Children Type of Residence: Private Residence (House) Does the patient have to climb stairs at home?: Yes, stairs outside the home, stairs within the home Support: Family members, Spouse/significant other How do you manage to accomplish the following: Independent: Ambulation, Bathe/Shower, Dress, Meals/Meal Prep, Going to the bathroom, Medication Management, Transportation to appointments/community Current Services/Equipment Current Post-Acute Service(s): None Discharge Planning Patient Goal(s): General wellness, Be able to go home, Other: See Comment Patient's Other Post-Acute Care Goal(s): Plan to treat infection and medical clearance [place] of Choice Explained: [place] of Choice Given: No Reason Not Given: No placements necessary, Unable to complete with this assessment - revisit Are you interested in bedside delivery of your medications? No Discharge Planning Participant(s): Patient Transport at Discharge: Transportation Arrangements: Car Needs Prior to Discharge: Needs Prior to Discharge: To Be Determined, Discharge Prescriptions, Home Care Order, Facility or Agency Choices, IV Antibiotics Post-Acute Discharge Plan: Pt is a 32-leon-mxg-female, with PMHx bipolar disorder, hepatic steatosis, extensive allergies to multiple antibiotics, NIKKIE, and OCD. She presents with fever and right breast pain, and is admitted with mastitis. Pt readmitted after DC on 05/17/25, reports feeling "better" at this time. Pt displays flat affect, denies feeling depressed, reports that she is "just tired." Pt lives with her aunt, Zeynep, and two minor children, Zeynep is providing care to Pt's children while she is hospitalized. Pt has instructions to follow-up with new PCP upon DC on AVS, and Pt endorsed understanding of this. Pt drives, is not currently employed. Pt uses no DME at baseline and is independent with all ADL's and IADL's. Pt states that she does not anticipate any needs a time of DC. CM will continue to follow, available as needed. SIGNATURE: Anabelle Le PATIENT NAME: Rosalva Huang DATE: May 19, 2025 TIME: 11:14 AM Normal [facility] CBC panel Auto (Bld)on 05-19 Erythrocyte distribution width (RBC) [Ratio] 13.4 % Normal 11.5-15.0 [facility] Comment on above: Order Comment: Speci alejandra Type: BLOOD SPECIMENOrdering Facility: [facility] Address: [address] [place] [address] Performed By: #### 5 8410-2 ####[facility] LABORATORYCLIA [id number] [place] [address] [place] Hematocrit (Bld) [Volume fraction] 38.7 % Normal 36.0-46.0 [facility] Comment on above: Order Comment: Mookie roberts Type: BLOOD SPECIMENOrdering Facility: [facility] Address: [address] [place] [address] Performed By: #### 5 8410-2 ####[facility] LABORATORYCLIA [id number] [place] [id number] [place] Hemoglobin (Bld) [Mass/Vol] 13.0 g/dL Normal 11.5-15.5 [facility] Comment on above: Order Comment: Mookie roberts Type: BLOOD SPECIMENOrdering Facility: [facility] Address: [address] [place] [address] Performed By: #### 5 8410-2 ####[facility] LABORATORYCLIA [id number] [address] [place] MCH (RBC) [Entitic mass] 29.5 pg Normal 26.0-34.0 [facility] Comment on above: Order Comment: Speci men Type: BLOOD SPECIMENOrdering Facility: [facility] Address: [address] [place] [address] Performed By: #### 5 8410-2 ####[facility] LABORATORYCLIA [id number] [address] [facility] MCHC (RBC) [Mass/Vol] 33.6 g/dL Normal 30.5-36.0 [facility] Comment on above: Order Comment: Speci men Type: BLOOD SPECIMENOrdering Facility: [facility] Address: [address] [place] [address] Performed By: #### 5 8410-2 ####[facility] LABORATORYCLIA [id number] [address] [place] MCV (RBC) [Entitic vol] 88.0 fL Normal 80.0-100.0 [facility] Comment on above: Order Comment: Speci men Type: BLOOD SPECIMENOrdering Facility: [facility] Address: [address] [place] [address] Performed By: #### 5 8410-2 ####[facility] LABORATORYCLIA [id number] [address] [place] Nucleated RBC (Bld) [#/Vol] 10*3/uL Normal <0.01 [facility] Comment on above: Order Comment: Speci men Type: BLOOD SPECIMENOrdering Facility: [facility] Address: [address] [place] [address] Performed By: #### 5 8410-2 ####[facility] LABORATORYCLIA [id number] [address] Platelet mean volume (Bld) [Entitic vol] 9.9 fL Normal 9.0-12.7 [facility] Comment on above: Order Comment: Speci men Type: BLOOD SPECIMENOrdering Facility: [facility] Address: [address] [place] [address] Performed By: #### 5 8410-2 ####[facility] LABORATORYCLIA [id number] [place] [id number] [place] Platelets (Bld) [#/Vol] 244 10*3/uL Normal 150-400 [facility] Comment on above: Order Comment: Speci men Type: BLOOD SPECIMENOrdering Facility: [facility] Address: [address] [place] [address] Performed By: #### 5 8410-2 ####[facility] LABORATORYCLIA [id number] [place] [id number] [place] RBC (Bld) [#/Vol] 4.40 10*6/uL Normal 3.90-5.20 [facility] Comment on above: Order Comment: Speci men Type: BLOOD SPECIMENOrdering Facility: [facility] Address: [address] [place] [address] Performed By: #### 5 8410-2 ####[facility] LABORATORYCLIA [id number] [place] [id number] [place] WBC (Bld) [#/Vol] 8.73 10*3/uL Normal 3.70-11.00 [facility] Comment on above: Order Comment: Speci men Type: BLOOD SPECIMENOrdering Facility: [facility] Address: [address] [place] [address] Performed By: #### 5 8410-2 ####[facility] LABORATORYCLIA [id number] [place] [id number] [facility] [place] CONSULT PROGon 05-19-2025 CONSULT PROG HNO ID: [id number] Author: DURAN KERN MD Service: Infectious Disease Author Type: Physician Type: Consult Progress Note Filed: 05/20/2025 03:54 Note Text: INFECTIOUS DISEASE CONSULT PROGRESS NOTES PATIENT NAME: Rosalva Huang SERVICE DATE: 05/19/2025 ASSESSMENT AND PLAN: Unresolved bilateral mastitis.--POA Unresolved left bilateral nipple infection due to piercing, rings have been removed. ---POA IV vancomycin ---SLOW INFUSION over 2 hrs and 50 mg of IV Benadryl with each dose. The patient cannot tolerate any other antibiotics unfortunately. tolerating today Methicillin-resistant Staphylococcus aureus screen was negative. . Multiple drug allergies including clindamycin, doxycycline, Keflex, Bactrim, vanco, and meropenem. d/w pt to go to [facility] after d/s for desensitization for pcn atleast pt agrees Bipolar disorder. . Transaminitis. Recent right upper quadrant ultrasound revealed hepatic steatosis and hepatitis screen was negative. . Obsessive-compulsive disorder. d/w pt and n staff interval hpi---- pt is tolerating slow Vancor infusion . (over 2 hrs) with benadryl continue claims has nipple d/s from rt breast ,. nothing present now to take culture . also check prolactin . Multiple drug allergies including clindamycin, doxycycline, Keflex, Bactrim, vanco, and meropenem. d/w pt to go to [facility] after d/s for desensitization for pcn atleast pt agrees MEDICATIONS: Current Facility-Administered Medications Medication Dose Route Frequency clonazePAM 1 mg tab(s) (KlonoPIN) 1 mg ORAL DAILY PRN divalproex ER 1,000 mg tab(s) (DEPAKOTE ER) 1,000 mg ORAL AT BEDTIME escitalopram oxalate 20 mg tab(s) (LEXAPRO) 20 mg ORAL AT BEDTIME lamoTRIgine 100 mg tab(s) (LaMICtal) 100 mg ORAL AT BEDTIME risperiDONE (RisperDAL) tab(s) 3 mg 3 mg ORAL AT BEDTIME NaCl 0.9% iv flush bag 20 mL INTRAVENOUS PRN vancomycin iv piggyback 1.25 g in D5W 250 mL (VANCOCIN) 0.015 g/kg/dose INTRAVENOUS q 12 HR vancomycin dosing and monitoring per pharmacy OTHER As Directed diphenhydrAMINE 50 mg injection (BENADRYL) 50 mg INTRAVENOUS q 6 H PRN morphine 2 mg injection 2 mg INTRAVENOUS q 4 H PRN oxyCODONE IR 5-10 mg tab(s) (ROXICODONE) 5-10 mg ORAL q 4 H PRN acetaminophen 325-650 mg tab(s) (TYLENOL) 325-650 mg ORAL q 4 H PRN OBJECTIVE PHYSICAL EXAM: BP 126/84 Pulse 67 Temp (Src) 98.1 (Oral) Resp 18 Ht 5' 4" (1.63m) Wt 189 lb (85.7kg) SpO2 99% BMI 32.43 kg/(m2). O2 Therapy: Room Air Skin: There is no evident rash. Neck: Supple. Oropharynx clear. No evidence of thrush. No cervical lymphadenopathy. Chest: Decreased air entry, bilateral bases. Few rales heard. Bilateral breast scratch mun[place] are present. Some cellulitic changes present. No nipple discharge at present. No significant tenderness on palpation of the breast. Abdomen: Soft, nontender. No organomegaly. Bowel sounds present. Extremities: Edema is present. The patient is moving all 4 extremities. Diagnostic tests reviewed for today's visit: Most recent labs and compared Most recent micro/ EKG Most recent imaging and compared Recent Labs 05/19/25 0555 05/18/25 1540 05/17/25 0904 WBC 8.73 11.65* 8.30 HB 13.0 14.4 14.2 HCT 38.7 43.7 41.9 PLT 244 261 270 NA 142 140 137 K 3.9 3.8 4.7 CHLOR 106 104 105 CO2 23 24 19* BUN 16 18 13 CREAT 0.68 0.74 0.52* GLUC 88 76 131* CA 8.7 9.2 9.1 CRP 0.8 03/04/2025 Duran Kern MD 05/19/2025 8:58 PM Normal [facility] CRP SerPl-mCncon 05-19-2025 CRP [Mass/Vol] mg/L Normal <0.9 [facility] Comment on above: Order Comment: Mookie roberts Type: BLOOD SPECIMEN [facility] Address: [address] [place] [address] Performed By: #### 2 4323-8, 1988-03 #### [facility] CLIA [id number] [address] [place] [address] [place] Comprehensive metabolic 2000 panelon 05-19-2025 Albumin [Mass/Vol] 3.8 g/dL Low 3.9-4.9 [facility] Comment on above: Order Comment: Mookie roberts Type: BLOOD SPECIMEN [facility] Address: [address] [place] [address] Performed By: #### 2 4323-06, 1988-03 #### [facility] CLIA [id number] [place] [address] [place] ALP [Catalytic activity/Vol] 100 U/L Normal 34-123 [facility] Comment on above: Order Comment: Speci men Type: BLOOD SPECIMEN [facility] Address: [address] [place] [address] Performed By: #### 2 4323-06, 1988-03 #### [facility] CLIA [id number] [address] [place] [address] [place] ALT [Catalytic activity/Vol] 58 U/L High 7-38 [facility] Comment on above: Order Comment: Speci men Type: BLOOD SPECIMEN [facility] Address: [address] [place] [address] Performed By: #### 2 4323-06, 1988-03 #### [facility] CLIA [id number] [address] [place] [address] [place] Anion gap [Moles/Vol] 13 mmol/L Normal 8-15 [facility] Comment on above: Order Comment: Speci men Type: BLOOD SPECIMEN [facility] Address: [address] [place] [address] Performed By: #### 2 4323-06, 1988-03 #### [facility] CLIA [id number] [address] [place] [address] [place] AST [Catalytic activity/Vol] 27 U/L Normal 13-35 [facility] Comment on above: Order Comment: Speci men Type: BLOOD SPECIMEN [facility] Address: [address] [place] [address] Performed By: #### 2 4323-06, 1988-03 #### [facility] CLIA [id number] [address] [place] [address] [place] Bilirubin [Mass/Vol] 0.3 mg/dL Normal 0.2-1.3 [facility] Comment on above: Order Comment: Speci men Type: BLOOD SPECIMEN [facility] Address: [address] [place] [address], [place] [address] Performed By: #### 2 4323-06, 1988-03 #### [facility] CLIA [id number] [address] [place] [address] [place] Calcium [Mass/Vol] 8.7 mg/dL Normal 8.5-10.2 [facility] Comment on above: Order Comment: Speci men Type: BLOOD SPECIMEN [facility] Address: [address] [facility] [place] [address] Performed By: #### 2 4323-06, 1988-03 #### [facility] CLIA [id number] [address] [place] [address] [place] Chloride [Moles/Vol] 106 mmol/L Normal 98-107 [facility] Comment on above: Order Comment: Speci men Type: BLOOD SPECIMEN [facility] Address: [facility] [place] [address] Performed By: #### 2 4323-06, 1988-03 #### [facility] CLIA [id number] [address] [place] [address] [place] CO2 [Moles/Vol] 23 mmol/L Normal 22-30 [facility] Comment on above: Order Comment: Speci men Type: BLOOD SPECIMEN [facility] Address: [address] [place] [address] Performed By: #### 2 4323-06, 1988-03 #### [facility] CLIA [id number] [address] [place] [address] [place] Creatinine [Mass/Vol] 0.68 mg/dL Normal 0.58-0.96 [facility] Comment on above: Order Comment: Speci men Type: BLOOD SPECIMEN [facility] Address: [address] [place] [id number] Performed By: #### 2 4323-06, 1988-03 #### [facility] CLIA [id number] [address] [place] [address] [place] Creatinine and Glomerular filtration rate.predicted panel (S/P/Bld) 117 mL/min/1.73m??? Normal >=60 [facility] Comment on above: Order Comment: Mookie roberts Type: BLOOD SPECIMEN [facility] Address: [address] [place] [address] Result Comment: Anne-Marie mated Glomerular Filtration Rate (eGFR) is calculated using the 2020 CKD-EPI creatinine equation. This equation utilizes serum creatinine, sex, and age as parameters. The creatinine assay has traceable calibration to isotope dilution-mass spectrometry. Refer to KDIGO guidelines for clinical interpretation. In patients with unstable renal function, e.g. those with acute kidney injury, the eGFR may not accurately reflect actual GFR. Performed By: #### 2 4323-8, 1988-03 #### [facility] CLIA [id number] [place], [place] [address] [place] Glucose [Mass/Vol] 88 mg/dL Normal 74-99 [facility] Comment on above: Order Comment: Mookie roberts Type: BLOOD SPECIMEN [facility] Address: [address] [place] [address] Result Comment: The [place] Diabetes Association (ADA) provides guidance for cutoff values for fasting glucose and random glucose. The ADA defines fasting as no caloric intake for at least 8 hours. Fasting plasma glucose results between 100 to 125 mg/dL indicate increased risk for diabetes (prediabetes). Fasting plasma glucose results greater than or equal to 126 mg/dL meet the criteria for diagnosis of diabetes. In the absence of unequivocal hyperglycemia, results should be confirmed by repeat testing. In a patient with classic symptoms of hyperglycemia or hyperglycemic crisis, random plasma glucose results greater than or equal to 200 mg/dL meet the criteria for diagnosis of diabetes. Reference: Standards of Medical Care in Diabetes 2016, [place] [employer]. Diabetes Care. 2016.39(Suppl 1). Performed By: #### 2 4323-8, 1988-03 #### [facility] CLIA [id number] [address] [place] [id number] [place] Potassium [Moles/Vol] 3.9 mmol/L Normal 3.7-5.1 [facility] Comment on above: Order Comment: Mookie roberts Type: BLOOD SPECIMEN Ordering Facility: [facility] Address: [address] [place] [address] Performed By: #### 2 4328, 1988-03 #### [facility] CLIA [id number] [address] [place] [address] [place] Protein [Mass/Vol] 6.2 g/dL Low 6.3-8.0 [facility] Comment on above: Order Comment: Speci men Type: BLOOD SPECIMEN Ordering Facility: [facility] Address: [address] [place] [address] Performed By: #### 2 4328, 1988-03 #### [facility] CLIA [id number] [address] [place] [address] [place] Sodium [Moles/Vol] 142 mmol/L Normal 136-144 [facility] Comment on above: Order Comment: Speci men Type: BLOOD SPECIMEN Ordering Facility: [facility] Address: [address] [place] [address] Performed By: #### 2 4328, 1988-03 #### [facility] CLIA [id number] [address] [place] [address] [place] Urea nitrogen [Mass/Vol] 16 mg/dL Normal 7-21 [facility] Comment on above: Order Comment: Speci men Type: BLOOD SPECIMEN Ordering Facility: [facility] Address: [address] [place] [address] Performed By: #### 2 4328, 1988-03 #### [facility] CLIA [id number] [address] [place] [address] [place] Gas and Carbon monoxide pane l (BldV)on 05-19-2025 Base excess Calc (BldV) [Moles/Vol] 1 mmol/L Normal 0-2 [facility] Comment on above: Order Comment: Speci men Type: BLOOD SPECIMEN Ordering Facility: [facility] Address: [address] [place] [address] Performed By: #### 4 09-5 #### [facility] CLIA [id number] [address] [place] [address] [place] Body temperature 97.88 [degF] Normal [facility] Comment on above: Order Comment: Speci men Type: BLOOD SPECIMEN Ordering Facility: [facility] Address: [address] [place] [address] Performed By: #### 4 091-5 #### [facility] CLIA [id number] [address] [place] [address] [place] Calcium.ionized (Bld) [Mass/Vol] 1.15 mmol/L Normal 1.08-1.30 [facility] Comment on above: Order Comment: Speci men Type: BLOOD SPECIMEN Ordering Facility: [facility] Address: [address] [place] [address] Performed By: #### 4 091-5 #### [facility] CLIA [id number] [address] [place] [address] [place] Calcium.ionized adjusted to pH 7.4 (BldA) [Moles/Vol] 1.16 mmol/L Normal 1.08-1.30 [facility] Comment on above: Order Comment: Speci men Type: BLOOD SPECIMEN Ordering Facility: [facility] Address: [address] [place] [address] Performed By: #### 4 091-5 #### [facility] CLIA [id number] [address] [place] [address] [place] Carboxyhemoglobin (BldV) [Mass fraction] 1.8 % Normal 0.0-2.0 [facility] Comment on above: Order Comment: Speci men Type: BLOOD SPECIMEN Ordering Facility: [facility] Address: [address] [place] [address] Result Comment: Carb oxyhemoglobin Reference Range for Smokers: 2.0-8.0% Performed By: #### 4 091-5 #### [facility] CLIA [id number] [address] [place] [address] [place] Chloride [Moles/Vol] 108 mmol/L High 97-105 [facility] Comment on above: Order Comment: Speci men Type: BLOOD SPECIMEN Ordering Facility: [facility] Address: [address] [place] [address] Performed By: #### 4 091-5 #### [facility] CLIA [id number] [address] [place], [place] [address] [place] CO2 (BldV) [Partial pressure] 40 mm[Hg] Low 42-55 [facility] Comment on above: Order Comment: Speci men Type: BLOOD SPECIMEN Ordering Facility: [facility] Address: [address] [place] [address] Performed By: #### 4 091-5 #### [facility] CLIA [id number] [address] [place] [address] [place] CO2 adjusted to patient's actual temperature (BldV) [Partial pressure] Normal [facility] Comment on above: Order Comment: Speci men Type: BLOOD SPECIMEN Ordering Facility: [facility] Address: [address] [place] [address] Performed By: #### 4 091-5 #### [facility] CLIA [id number] [address] [place] [address] [place] Glucose [Mass/Vol] 82 mg/dL Normal 60-105 [facility] Comment on above: Order Comment: Speci men Type: BLOOD SPECIMEN Ordering Facility: [facility] Address: [address] [place] [address] Performed By: #### 4 091-5 #### [facility] CLIA [id number] [address] [place] [address] [place] HCO3 (Bld) [Moles/Vol] 25 mmol/L Normal 24-28 [facility] Comment on above: Order Comment: Speci men Type: BLOOD SPECIMEN Ordering Facility: [facility] Address: [address] [place] [address] Performed By: #### 4 091-5 #### [facility] CLIA [id number] [address] [place] [address] [place] Hematocrit (Bld) [Volume fraction] 39.7 % Normal 36.0-46.0 [facility] Comment on above: Order Comment: Speci men Type: BLOOD SPECIMEN Ordering Facility: [facility] Address: [address] [place] [address] Performed By: #### 4 091-5 #### [facility] CLIA [id number] [address] [place], [place] [address] [place] Hemoglobin (Bld) [Mass/Vol] 12.9 g/dL Normal 11.5-15.5 [facility] Comment on above: Order Comment: Speci men Type: BLOOD SPECIMEN Ordering Facility: [facility] Address: [address] [place] [address] Performed By: #### 4 091-5 #### [facility] CLIA [id number] [address] [place] [address] [place] Lactate [Moles/Vol] 1.0 mmol/L Normal 0.5-2.2 [facility] Comment on above: Order Comment: Speci men Type: BLOOD SPECIMEN Ordering Facility: [facility] Address: [address] [place] [address] Performed By: #### 4 091-5 #### [facility] CLIA [id number] [address] [place] [address] [place] Methemoglobin (Bld) [Mass fraction] 0.6 % Normal 0.0-1.5 [facility] Comment on above: Order Comment: Speci men Type: BLOOD SPECIMEN Ordering Facility: [facility] Address: [address] [place] [address] Performed By: #### 4 091-5 #### [facility] CLIA [id number] [address] [place] [address] [place] O2 THERAPY RA=Room Air Normal [facility] Comment on above: Order Comment: Speci men Type: BLOOD SPECIMEN Ordering Facility: [facility] Address: [address] [place] [address] Performed By: #### 4 091-5 #### [facility] CLIA [id number] [address] [place] [address] [place] Oxygen (BldV) [Partial pressure] 193 mm[Hg] High 35-45 [facility] Comment on above: Order Comment: Speci men Type: BLOOD SPECIMEN Ordering Facility: [facility] Address: [address] [place] [address] Performed By: #### 4 091-5 #### [facility] CLIA [id number] [address] [place] [address] [place] Oxygen adjusted to patient's actual temperature (BldV) [Partial pressure] Normal [facility] Comment on above: Order Comment: Speci men Type: BLOOD SPECIMEN Ordering Facility: [facility] Address: [address] [place] [address] Performed By: #### 4 091-5 #### [facility] CLIA [id number] [address] [place] [address] [place] Oxygen saturation in Venous blood 100 % High 60-85 [facility] Comment on above: Order Comment: Speci men Type: BLOOD SPECIMEN Ordering Facility: [facility] Address: [address] [place] [address] Performed By: #### 4 091-5 #### [facility] CLIA [id number] [address] [place] [address] [place] Oxyhemoglobin (BldV) [Mass fraction] 97 % High 60-85 [facility] Comment on above: Order Comment: Speci men Type: BLOOD SPECIMEN Ordering Facility: [facility] Address: [address] [place] [address] Performed By: #### 4 091-5 #### [facility] CLIA [id number] [address] [place] [address] [place] pH (BldV) 7.42 [pH] Normal 7.32-7.42 [facility] Comment on above: Order Comment: Speci men Type: BLOOD SPECIMEN Ordering Facility: [facility] Address: [address] [place] [address] Performed By: #### 4 091-5 #### [facility] CLIA [id number] [address] [place] [address] [place] pH adjusted to patient's actual temperature (BldV) Normal [facility] Comment on above: Order Comment: Speci men Type: BLOOD SPECIMEN Ordering Facility: [facility] Address: [address] [place] [address] Performed By: #### 4 091-5 #### [facility] CLIA [id number] [address] [place] [address] [place] Potassium [Moles/Vol] 3.9 mmol/L Normal 3.5-5.0 [facility] Comment on above: Order Comment: Speci men Type: BLOOD SPECIMEN Ordering Facility: [facility] Address: [address] [place] [address] Performed By: #### 4 091-5 #### [facility] CLIA [id number] [place] [address] [place] Sodium [Moles/Vol] 140 mmol/L Normal 136-144 [facility] Comment on above: Order Comment: Speci men Type: BLOOD SPECIMEN Ordering Facility: [facility] Address: [address] [place] [address] Performed By: #### 4 091-5 #### [facility] CLIA [id number] [address] [place] [address] [place] STAPHYLOCOCCUS AUREUS AND MR SA SCREEN, PCR, NASALon 05-19-2025 S. aureus and MRSA panel LAURA+probe (Nose) Not detected Normal Not Detected [facility] Comment on above: Order Comment: Speci men Type: SWAB Ordering Facility: [facility] Address: [address] [place] [address] Performed By: #### S APCR #### [facility] CLIA [id number] [address] [place], [place] [address] [place] [address] [place] Bacteria Bld Culton 05-18-20 25 Bacteria identified Cx Nom (Bld) CULTURE, BLOOD: No growth 5 days Normal [facility] Comment on above: Performed By: #### 6 00-7 ####[facility] [id number] [facility] [place] [address] [place] CBC W Auto Differential pane l (Bld)on 05-18-2025 Basophils (Bld) [#/Vol] 0.06 10*3/uL Normal <0.11 [facility] Comment on above: Order Comment: Speci men Type: BLOOD SPECIMENOrdering Facility: [facility] Address: [address] [place] [address] Performed By: #### 5 7021-8 ####[facility] LWCLIA [id number] [place] [id number] [place] Basophils/100 WBC (Bld) 0.5 % Normal [facility] Comment on above: Order Comment: Speci men Type: BLOOD SPECIMENOrdering Facility: [facility] Address: [address] [place] [address] Performed By: #### 5 7021-8 ####[facility] LWIA [id number] [place] [id number] [place] Differential cell count method Nom (Bld) Auto Normal [facility] Comment on above: Order Comment: Speci men Type: BLOOD SPECIMENOrdering Facility: [facility] Address: [address] [place] [address] Performed By: #### 5 7021-8 ####[facility] LWCLIA [id number] [place] [address] [place] Eosinophils (Bld) [#/Vol] 0.06 10*3/uL Normal <0.46 [facility] Comment on above: Order Comment: Speci men Type: BLOOD SPECIMENOrdering Facility: [facility] Address: [address] [place] [address] Performed By: #### 5 7021-8 ####[facility] LWCLIA [id number] [place] [id number] [facility] Eosinophils/100 WBC (Bld) 0.5 % Normal [facility] Comment on above: Order Comment: Speci men Type: BLOOD SPECIMENOrdering Facility: [facility] Address: [address] [place] [address] Performed By: #### 5 7021-8 ####[facility] LWCLIA [id number] [place] [id number] [place] Erythrocyte distribution width (RBC) [Ratio] 13.6 % Normal 11.5-15.0 [facility] Comment on above: Order Comment: Speci men Type: BLOOD SPECIMENOrdering Facility: [facility] Address: [address] [place] [address] Performed By: #### 5 7021-8 ####[facility] LWCLIA [id number] [address] Hematocrit (Bld) [Volume fraction] 43.7 % Normal 36.0-46.0 [facility] Comment on above: Order Comment: Speci men Type: BLOOD SPECIMENOrdering Facility: [facility] Address: [address] [place] [address] Performed By: #### 5 7021-8 ####[facility] LWIA [id number] [place] [address] [place] Hemoglobin (Bld) [Mass/Vol] 14.4 g/dL Normal 11.5-15.5 [facility] Comment on above: Order Comment: Speci men Type: BLOOD SPECIMENOrdering Facility: [facility] Address: [address] [place] [address] Performed By: #### 5 7021-8 ####[facility] LWIA [id number] [place] [address] [place] Immature granulocytes (Bld) [#/Vol] 0.24 10*3/uL High <0.10 [facility] Comment on above: Order Comment: Speci men Type: BLOOD SPECIMENOrdering Facility: [facility] Address: [address] [place] [address] Performed By: #### 5 7021-8 ####[facility] LWCLIA [id number] [address] [place] Immature granulocytes/100 WBC (Bld) 2.1 % Normal [facility] Comment on above: Order Comment: Speci men Type: BLOOD SPECIMENOrdering Facility: [facility] Address: [address] [place] [address] Performed By: #### 5 7021-8 ####[facility] LWIA [id number] [place] [address] [place] Lymphocytes (Bld) [#/Vol] 4.45 10*3/uL High 1.00-4.00 [facility] Comment on above: Order Comment: Speci men Type: BLOOD SPECIMENOrdering Facility: [facility] Address: [address] [place] [address] Performed By: #### 5 7021-8 ####[facility] LWCLIA [id number] [address] [place] Lymphocytes/100 WBC (Bld) 38.2 % Normal [facility] Comment on above: Order Comment: Speci men Type: BLOOD SPECIMENOrdering Facility: [facility] Address: [address] [place] [address] Performed By: #### 5 7021-8 ####[facility] LWCLIA [id number] [address] [place] MCH (RBC) [Entitic mass] 29.9 pg Normal 26.0-34.0 [facility] Comment on above: Order Comment: Speci men Type: BLOOD SPECIMENOrdering Facility: [facility] Address: [address] [place] [address] Performed By: #### 5 7021-8 ####[facility] LWCLIA [id number] [address] [place] MCHC (RBC) [Mass/Vol] 33.0 g/dL Normal 30.5-36.0 [facility] Comment on above: Order Comment: Speci men Type: BLOOD SPECIMENOrdering Facility: [facility] Address: [address] [place] [address] Performed By: #### 5 7021-8 ####[facility] LWCLIA [id number] [address] MCV (RBC) [Entitic vol] 90.9 fL Normal 80.0-100.0 [facility] Comment on above: Order Comment: Speci men Type: BLOOD SPECIMENOrdering Facility: [facility] Address: [address] [place] [address] Performed By: #### 5 7021-8 ####[facility] LWCLIA [id number] [place] [id number] [place] Monocytes (Bld) [#/Vol] 0.91 10*3/uL High <0.87 [facility] Comment on above: Order Comment: Speci men Type: BLOOD SPECIMENOrdering Facility: [facility] Address: [address] [place] [address] Performed By: #### 5 7021-8 ####[facility] LWCLIA [id number] [place] [address] [place] Monocytes/100 WBC (Bld) 7.8 % Normal [facility] Comment on above: Order Comment: Speci men Type: BLOOD SPECIMENOrdering Facility: [facility] Address: [address] [place] [address] Performed By: #### 5 7021-8 ####[facility] LWCLIA [id number] [place] [address] [place] Neutrophils (Bld) [#/Vol] 5.93 10*3/uL Normal 1.45-7.50 [facility] Comment on above: Order Comment: Speci men Type: BLOOD SPECIMENOrdering Facility: [facility] Address: [address] [place] [address] Performed By: #### 5 7021-8 ####[facility] LWCLIA [id number] [place] [id number] [place] Neutrophils/100 WBC (Bld) 50.9 % Normal [facility] Comment on above: Order Comment: Speci men Type: BLOOD SPECIMENOrdering Facility: [facility] Address: [address] [place] [address] Performed By: #### 5 7021-8 ####[facility] LWCLIA [id number] [place] [id number] [place] Nucleated RBC (Bld) [#/Vol] 10*3/uL Normal <0.01 [facility] Comment on above: Order Comment: Speci men Type: BLOOD SPECIMENOrdering Facility: [facility] Address: [address] [place] [address] Performed By: #### 5 7021-8 ####[facility] LWCLIA [id number] [place] [id number] [place] Nucleated RBC/100 WBC (Bld) [Ratio] 0.0 /100 WBC Normal [facility] Comment on above: Order Comment: Speci men Type: BLOOD SPECIMENOrdering Facility: [facility] Address: [address] [place] [address] Performed By: #### 5 7021-8 ####[facility] LWCLIA [id number] [place] [address] [place] Platelet mean volume (Bld) [Entitic vol] 9.8 fL Normal 9.0-12.7 [facility] Comment on above: Order Comment: Speci men Type: BLOOD SPECIMENOrdering Facility: [facility] Address: [address] [place] [address] Performed By: #### 5 7021-8 ####[facility] LWCLIA [id number] [place] [id number] [place] Platelets (Bld) [#/Vol] 261 10*3/uL Normal 150-400 [facility] Comment on above: Order Comment: Speci men Type: BLOOD SPECIMENOrdering Facility: [facility] Address: [address] [place] [address] Performed By: #### 5 7021-8 ####[facility] LWCLIA [id number] [place] [id number] [place] RBC (Bld) [#/Vol] 4.81 10*6/uL Normal 3.90-5.20 [facility] Comment on above: Order Comment: Speci men Type: BLOOD SPECIMENOrdering Facility: [facility] Address: [address] [place] [address] Performed By: #### 5 7021-8 ####[facility] LWCLIA [id number] [place] [id number] [place] WBC (Bld) [#/Vol] 11.65 10*3/uL High 3.70-11.00 [facility] Comment on above: Order Comment: Speci men Type: BLOOD SPECIMENOrdering Facility: [facility] Address: [address] [place] [address] Performed By: #### 5 7021-8 ####[facility] LWCLIA [id number] [place] [id number] [facility] CNPDesirae 05-18-2025 CNPN Telephone (FVPRAD) ----- ROSALVA HUANG ([id number]) 1990 F [facility] Date Time Provider Department 05/18/25 BETHANY LEE During your visit today, we recorded the following information about you: Bethany Lee MD 05/18/2025 4:12 PM Signed 35 yo F with PMH NIKKIE, PTSD, OCD, Bipolar I and multiple allergies who presented to the ER with breast concern, per their workup and exam there is concern for mastitis. Being tx for further workup and management. Bethany Lee MD Allergies As of Date: 05/18/2025 Noted Allergy Reaction MEROPENEM 05/16/2025 2 - Rash 4 - Hives 7 - Swelling 9 - Itching 18 - Angioedema CLINDAMYCIN 01/05/2025 4 - Hives Comments: Diffuse hives and angioedema of upper lip within 30 minutes of receiving 1st dose. DAPTOMYCIN 05/15/2025 10 - Anaphylaxis DOXYCYCLINE 01/06/2025 4 - Hives Comments: Diffuse hives 30 minutes after 1st dose. Diffuse hives and x1 episode of emesis 30 minutes after 2nd dose. FLUCONAZOLE 01/08/2025 2 - Rash Comments: Required IV diphenhydramine 01/06/2025 KEFLEX (CEPHALEXIN) 02/27/2025 10 - Anaphylaxis Comments: 03/13/2025 Tolerated graded dose amoxicillin challenge Diffuse rash with upper lip and tongue swelling 15 minutes after first dose. ONION 05/25/2022 8 - GI Upset SULFAMETHOXAZOLE-TRIMETHO PRIM 02/28/2025 4 - Hives VANCOMYCIN 01/02/2025 9 - Itching Comments: Flushing and pruritus consistent with vancomycin infusion reaction. Please refer to Allergy note from 01/05/2025 for details. ADHESIVE TAPE (ROSINS) 12/28/2018 2 - Rash 9 - Itching Comments: Patient reports unable to tolerate band-aids after a procedure. She noted redness and itching at site of band aid. MOSQUITOS 02/04/2006 7 - Swelling PROMETHAZINE 05/15/2018 16 - Unknown Comments: Other Reaction(s): GI Upset SUNSCREEN 11/13/2015 2 - Rash Comments: Tingle tanning lotion ZYRTEC (CETIRIZINE HCL) 02/16/2019 4 - Hives 14 - Other: See Comments Comments: Hives and palpitations within 30 minutes of 1st dose. Tolerates Benadryl without issue. No contraindication to trying other antihistamines such as Arthur or Claritin. Date Reviewed: 05/17/2025 Reviewed by: Loreta Parkinson RN - Fully Assessed Reason for Visit: Hospital To Hospital [[id number]] Prescriptions as of 05/18/2025 - polyethylene glycol 3350 17 gram packet Take 1 packet by mouth once daily for 3 days. Dissolve dose in 4 - 8 ounces of liquid and take as directed. - famotidine (PEPCID) 20 mg tablet Take 1 tablet by mouth two times a day as needed (itching and rash) for up to 5 days. - oxyCODONE IR (ROXICODONE) 5 mg immediate release tablet Take 1 tablet by mouth every 12 hours for 1 day. - divalproex ER (DEPAKOTE ER) 500 mg 24 hr tablet Take 1,000 mg by mouth every evening. - cyproheptadine (PERIACTIN) 4 mg tablet Take 1 tablet by mouth two times a day as needed (migraine). - diphenhydrAMINE (BENADRYL) 50 mg capsule Take 1 capsule by mouth every 6 hours as needed for itching/rash. - EPINEPHrine (EPIPEN 2-RICK) 0.3 mg/0.3 mL auto-injector Inject 0.3 mL intramuscularly as needed. - prochlorperazine (COMPAZINE) 10 mg tablet Take 1 tablet by mouth every 6 hours as needed for nausea/vomiting. - EPINEPHrine (EPIPEN) 0.3 mg/0.3 mL auto-injector Inject 0.3 mL intramuscularly as needed (for analphylactic reaction). - escitalopram oxalate (LEXAPRO) 20 mg tablet Take 20 mg by mouth once daily. - clonazePAM (KLONOPIN) 1 mg tablet Take 1 mg by mouth once daily as needed for anxiety. - lamoTRIgine (LAMICTAL) 200 mg tablet Take 1 tablet by mouth once daily. - risperiDONE (RISPERDAL) 2 mg tablet Take 2 mg by mouth daily at bedtime. - risperiDONE (RISPERDAL) 0.5 mg tablet Take 0.5 mg by mouth daily at bedtime. Facility-Administered Medications as of 05/18/2025 - lactated ringers 1,000 mL iv bolus - vancomycin 1.25 g in D5W 250 mL (VANCOCIN) - diphenhydrAMINE 25 mg injection (BENADRYL) - NaCl 0.9% iv flush bag - onabotulinum toxin type A 200 Units injection (BOTOX) Problem List As Of Date 05/18/2025 Noted Resolved Other protein-calorie malnutrition [E46] 04/06/2006 09/17/2020 Routine gynecological examination [Z01.419] 10/26/2014 09/17/2020 Endometriosis [N80.9] 10/26/2014 10/16/2020 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HCC) [F31.61] 08/27/2015 Centromere antibody positive [R76.8] 02/16/2019 09/17/2020 CHATO positive [R76.8] 02/16/2019 09/17/2020 Itching [L29.9] 02/16/2019 09/17/2020 Drug eruption [L27.0] 02/16/2019 01/13/2025 Vomiting, persistent, in adult [R11.15] 02/16/2019 09/17/2020 Migraine without aura and without status migrai*07/18/2019 Peripheral vertigo [H81.399] 07/18/2019 09/17/2020 Encounter for supervision of normal first pregn*09/17/2020 05/07/2021 History of drug use [F19.91] 09/17/2020 Rubella non-immune status, antepartum [O09.899,*10/16/2020 05/07/2021 Admitted to labor and del (more content not included)... Normal [facility] CONSULTon 05-18-2025 CONSULT HNO ID: [id number] Author: DURAN KERN MD Service: Infectious Disease Author Type: Physician Type: Consults Filed: 05/20/2025 00:58 Note Text: [facility] - Consultation ROSALVA HUANG : 1990 AGE: 35 SEX: F [id number] LOCATION: [facility] ATTENDING PHYSICIAN: DENA SNOW DATE OF SERVICE: 05/18/2025 TIME OF SERVICE: 11:18 PM CONSULTING PHYSICIAN: Duran Kern M.D. REASON FOR CONSULTATION: To evaluate for unresolved infection of bilateral breast with nipple discharge. HISTORY OF PRESENT ILLNESS: This is a 35-year-old female with multiple antibiotic allergies. The patient also has a history of bipolar disorder, hepatic steatosis, OCD. She was recently in hospital from 05/11 until 05/17 when she was treated with IV antibiotics for bilateral mastitis. The patient had anaphylactic like reaction to daptomycin, meropenem, vancomycin therefore, these antibiotics were tried one-by-one, but were discontinued on 05/17. Patient's breast cellulitis and mastitis had significantly improved. Unfortunately, there were no oral antibiotics for discharge. The patient was discharged per primary team. The patient reports she returned back to hospital as she was having fever, chills this morning and started to have some mixed drainage from her right nipple. She has removed the ring from her bilateral nipple. She also suffers from anxiety and does scratch her bilateral breast and does manipulate her nipples to bring out the discharge and reports the pain in the right nipple is more than the left, which she rates as 4/10, localized, no radiation, worse with movement, better with the pain medication and rest in the hospital. The patient had ultrasound of the chest wall is negative for any abscess. Her lactate in ED was 3.4, white cell count of 11.6. COMPLETE REVIEW OF SYSTEMS: No headache. No sinus congestion. No neck pain. No thyroid enlargement. No cervical lymph node. No chest pain. No palpitations. No abdominal pain. No dysuria. No focal motor neurological symptoms. 10 systems reviewed were otherwise negative PAST MEDICAL HISTORY Diagnosis Date Endometriosis 10/26/2014 never had diagnostic lap to confirm, patient did not want surgery NIKKIE (generalized anxiety disorder) Gestational diabetes mellitus (GDM) affecting second (HCC) 05/25/2022 Hepatic steatosis 05/19/2025 Infertility, female Migraine without aura and without status migrainosus, not intractable 07/18/2019 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HCC) 08/27/2015 Panic disorder without agoraphobia PMH - PAST MEDICAL HISTORY OF vascular disease 01/2002 PMH - PAST MEDICAL HISTORY OF wearing glasses and broke ankle at age 3, wrist fracture depression PAST SURGICAL HISTORY Procedure Laterality Date 2D ECHO COMPLETE INP 01/03/2015 EF=67%, WNL SNGL 07/22/2022 Current Facility-Administered Medications Medication Dose Route Frequency Provider Last Rate Last Admin polyethylene glycol 3350 17 g packet 17 g ORAL DAILY Marisa, Cherie Chao MD 17 g at 05/19/25 103 senna-docusate 8.6-50 mg 1 tablet (SENNA-S) 1 tablet ORAL BID Marisa, Cherie Chao MD 1 tablet at 05/19/252044 bisacodyl 10 mg suppository (DULCOLAX) 10 mg RECTAL DAILY PRN Marisa, Cherie Chao MD 10 mg at 05/19/25 1035 oxyCODONE IR 5 mg tab(s) (ROXICODONE) 5 mg ORAL q 6 H PRN Marisa, Cherie Chao MD 5 mg at 05/20/25 0031 keTORolac 15 mg injection (Toradol) 15 mg INTRAVENOUS q 6 H PRN Marisa, Cherie Chao MD 15 mg at 05/19/25 204 acetaminophen 1,000 mg tab(s) (TYLENOL) 1,000 mg ORAL q 6 H Christopher Taylor MD clonazePAM 1 mg tab(s) (KlonoPIN) 1 mg ORAL DAILY PRN Dena Snow MD divalproex ER 1,000 mg tab(s) (DEPAKOTE ER) 1,000 mg ORAL AT BEDTIME Dena Snow MD 1,000 mg at 05/19/252044 escitalopram oxalate 20 mg tab(s) (LEXAPRO) 20 mg ORAL AT BEDTIME Dena Snow MD 20 mg at 05/19/252044 lamoTRIgine 100 mg tab(s) (LaMICtal) 100 mg ORAL AT BEDTIME Dena Snow MD 100 mg at 05/19/252044 risperiDONE (RisperDAL) tab(s) 3 mg 3 mg ORAL AT BEDTIME Dena Snow MD 3 mg at 05/19/252044 NaCl 0.9% iv flush bag 20 mL INTRAVENOUS PRN Dena Snow MD vancomycin iv piggyback 1.25 g in D5W 250 mL (VANCOCIN) 0.015 g/kg/dose INTRAVENOUS q 12 HR Duran Kern MD Stopped at 05/19/25 1849 vancomycin dosing and monitoring per pharmacy OTHER As Directed Duran Kern MD diphenhydrAMINE 50 mg injection (BENADRYL) 50 mg INTRAVENOUS q 6 H PRN Duran Kern MD 50 mg at 05/19/25 1628 Allergies: Meropenem Rash, Hives, Swelling, Itching, Angioedema Clindamycin Hives Comment:Diffuse hives and angioedema of upper lip within 30 minutes of receiving 1st dose. Daptomycin Anaphylaxis Doxycycline Hives Comment:Diffuse hives 30 minutes after 1st dose. Diffuse hives and x1 episode of emesis 30 minutes after 2nd dose. Fluconazole Rash Comment:Required IV diph (more content not included)... Normal [facility] CONSULT PROGon 05-18-2025 CONSULT PROG HNO ID: [id number] Author: TORREY LEMUS RPh Service: Pharmacy Author Type: Pharmacist Type: Consult Progress Note Filed: 05/18/2025 23:32 Note Text: PHARMACY VANCOMYCIN DOSING NOTE Patient Name: Rosalva Huang Admission Date: 05/18/2025 Date of Consult: 05/18/2025 Time of Consult: 11:31 PM Indication: Skin/soft tissue infection Goal Range: 10-20 mcg/mL RECOMMENDATIONS/PLAN: Pharmacy consulted for vancomycin dosing for Rosalva Huang, a 35 year old female. 1. Patient is currently ordered Vancomycin 1.25 g IV q12h. Today is day 1 of therapy. Received initial dose @1600 05/18 from [place] [facility] 2. No vancomycin level has been drawn for this dosing regimen. 3. The present dose of vancomycin is the recommended dosage for this patient at this time. Continue therapy as prescribed. 4. The next vancomycin level will be ordered for 05/20 unless clinically indicated sooner. (Pharmacy will order) We will follow patient renal function, vancomycin levels and doses with you during the course of therapy. Additional recommendations will appear in follow up notes. If you have any questions[place] [phone]. Age: [age] year old Allergies: ALLERGIES Allergen Reactions Meropenem Rash, Hives, Swelling, Itching, Angioedema Clindamycin Hives Diffuse hives and angioedema of upper lip within 30 minutes of receiving 1st dose. Daptomycin Anaphylaxis Doxycycline Hives Diffuse hives 30 minutes after 1st dose. Diffuse hives and x1 episode of emesis 30 minutes after 2nd dose. Fluconazole Rash Required IV diphenhydramine 01/06/2025 Keflex [Cephalexin] Anaphylaxis 03/13/2025 Tolerated graded dose amoxicillin challenge Diffuse rash with upper lip and tongue swelling 15 minutes after first dose. Onion GI Upset Sulfamethoxazole-Tr* Hives Vancomycin Itching Flushing and pruritus consistent with vancomycin infusion reaction. Please refer to Allergy note from 01/05/2025 for details. Adhesive Tape (Rita* Rash, Itching Patient reports unable to tolerate band-aids after a procedure. She noted redness and itching at site of band aid. Mosquitos Swelling Promethazine Unknown Other Reaction(s): GI Upset Sunscreen Rash Tingle tanning lotion Zyrtec [Cetirizine * Hives, Other: See Comments Hives and palpitations within 30 minutes of 1st dose. Tolerates Benadryl without issue. No contraindication to trying other antihistamines such as Arthur or Claritin. Last 3 Encounter Wt Readings: Date: Wt: 05/18/2025 85.7 kg (189 lb) 05/18/2025 86.1 kg (189 lb 13.1 oz) 05/11/2025 88.5 kg (195 lb) Last 1 Encounter Ht Readings: Date: Ht: 05/18/2025 162.6 cm (5' 4") Estimated Creatinine Clearance: 113.5 mL/min (based on SCr of 0.74 mg/dL). Temp (24hrs), Av.7 ?C (98.1 ?F), Min:36.7 ?C (98.1 ?F), Max:36.7 ?C (98.1 ?F) - Current Temp: 36.7 ?C (98.1 ?F) Labs BUN (mg/dL) Date Value 05/18/2025 18 05/17/2025 13 05/16/2025 13 Creatinine (mg/dL) Date Value 05/18/2025 0.74 05/17/2025 0.52 (L) 05/16/2025 0.54 (L) WBC (k/uL) Date Value 05/18/2025 11.65 (H) 05/17/2025 8.30 05/16/2025 9.43 Vancomycin Levels: No results found for: MARY KAY [facility] CONSULT PROG HNO ID: [id number] Author: DURAN KERN MD Service: Infectious Disease Author Type: Physician Type: Consult Progress Note Filed: 05/19/2025 01:53 Note Text: chart reviewed pt known to me. unresolved infection b/al mastitis nipple infection plan-- iv Vancor with benadryl Duran Kern MD 05/18/2025 ph:[phone] [facility] Comprehensive metabolic 2000 panelon 05-18-2025 Albumin [Mass/Vol] 4.4 g/dL Normal 3.9-4.[address] [facility] Comment on above: Order Comment: Speci men Type: BLOOD SPECIMENOrdering Facility: [facility] Address: [address] [place] [address] Performed By: #### 2 4323-8 ####[facility] LWCLIA [id number] [place] [address] [place] ALP [Catalytic activity/Vol] 111 U/L Normal 34-123 [facility] Comment on above: Order Comment: Speci men Type: BLOOD SPECIMENOrdering Facility: [facility] Address: [address] [place] [address] Performed By: #### 2 4323-8 ####[facility] LWCLIA [id number] [place] [address] [place] ALT [Catalytic activity/Vol] 68 U/L High 7-38 [facility] Comment on above: Order Comment: Speci men Type: BLOOD SPECIMENOrdering Facility: [facility] Address: [address] [place] [address] Performed By: #### 2 4323-8 ####[facility] LWCLIA [id number] [place] [address] [place] Anion gap [Moles/Vol] 12 mmol/L Normal 8-15 [facility] Comment on above: Order Comment: Speci men Type: BLOOD SPECIMENOrdering Facility: [facility] Address: [address] [place] [address] Performed By: #### 2 4323-8 ####[facility] LWCLIA [id number] [place] [address] [place] AST [Catalytic activity/Vol] 29 U/L Normal 13-35 [facility] Comment on above: Order Comment: Speci men Type: BLOOD SPECIMENOrdering Facility: [facility] Address: [address] [place] [address] Performed By: #### 2 4323-8 ####[facility] LWCLIA [id number] [place] [id number] [place] Bilirubin [Mass/Vol] 0.2 mg/dL Normal 0.2-1.3 [facility] Comment on above: Order Comment: Speci men Type: BLOOD SPECIMENOrdering Facility: [facility] Address: [address] [place] [address] Performed By: #### 2 4323-8 ####[facility] LWCLIA [id number] [place] [id number] [place] Calcium [Mass/Vol] 9.2 mg/dL Normal 8.5-10.[address] [facility] Comment on above: Order Comment: Speci men Type: BLOOD SPECIMENOrdering Facility: [facility] Address: [address] [place] [address] Performed By: #### 2 4323-8 ####[facility] LWCLIA [id number] [place] [id number] [place] Chloride [Moles/Vol] 104 mmol/L Normal 98-107 [facility] Comment on above: Order Comment: Speci men Type: BLOOD SPECIMENOrdering Facility: [facility] Address: [address] [place] [address] Performed By: #### 2 4323-8 ####[facility] LWCLIA [id number] [place] [id number] [place] CO2 [Moles/Vol] 24 mmol/L Normal 22-30 [facility] Comment on above: Order Comment: Speci men Type: BLOOD SPECIMENOrdering Facility: [facility] Address: [address] [place] [address] Performed By: #### 2 4323-8 ####[facility] LWCLIA [id number] [place] [id number] [place] Creatinine [Mass/Vol] 0.74 mg/dL Normal 0.58-0.96 [facility] Comment on above: Order Comment: Speci men Type: BLOOD SPECIMENOrdering Facility: [facility] Address: [address] [place] [address] Performed By: #### 2 4323-8 ####[facility] LWCLIA [id number] [place] [id number] [facility] Creatinine and Glomerular filtration rate.predicted panel (S/P/Bld) 109 mL/min/1.73m??? Normal >=60 [facility] Comment on above: Order Comment: Speci men Type: BLOOD SPECIMENOrdering Facility: [facility] Address: [address] [place] [address] Result Comment: Anne-Marie mated Glomerular Filtration Rate (eGFR) is calculated using the 2020 CKD-EPI creatinine equation. This equation utilizes serum creatinine, sex, and age as parameters. The creatinine assay has traceable calibration to isotope dilution-mass spectrometry. Refer to KDIGO guidelines for clinical interpretation. In patients with unstable renal function, e.g. those with acute kidney injury, the eGFR may not accurately reflect actual GFR. Performed By: #### 2 4323-8 ####[facility] LWIA [id number] [place] [address] [place] Glucose [Mass/Vol] 76 mg/dL Normal 74-[address] [facility] Comment on above: Order Comment: Mookie roberts Type: BLOOD SPECIMENOrdering Facility: [facility] Address: [address] [place] [address] Result Comment: The [place] Diabetes Association (ADA) provides guidance for cutoff values for fasting glucose and random glucose. The ADA defines fasting as no caloric intake for at least 8 hours. Fasting plasma glucose results between 100 to 125 mg/dL indicate increased risk for diabetes (prediabetes).Fasting plasma glucose results greater than or equal to 126 mg/dL meet the criteria for diagnosis of diabetes. In the absence of unequivocal hyperglycemia, results should be confirmed by repeat testing. In a patient with classic symptoms of hyperglycemia or hyperglycemic crisis, random plasma glucose results greater than or equal to 200 mg/dL meet the criteria for diagnosis of diabetes.Reference: Standards of Medical Care in Diabetes 2016, [place] [employer] Association. Diabetes Care. 2016.39(Suppl 1). Performed By: #### 2 4323-8 ####[facility] LWCLIA [id number] [place] [id number] [place] Potassium [Moles/Vol] 3.8 mmol/L Normal 3.7-5.1 [facility] Comment on above: Order Comment: Mookie roberts Type: BLOOD SPECIMENOrdering Facility: [facility] Address: [address] [place] [address] Performed By: #### 2 4323-8 ####[facility] LWIA [id number] [place] [address] [place] Protein [Mass/Vol] 7.2 g/dL Normal 6.3-8.[address] [facility] Comment on above: Order Comment: Speci men Type: BLOOD SPECIMENOrdering Facility: [facility] Address: [address] [place] [address] Performed By: #### 2 4323-8 ####[facility] LWCLIA [id number] [place] [id number] [place] Sodium [Moles/Vol] 140 mmol/L Normal 136-[address] [facility] Comment on above: Order Comment: Speci men Type: BLOOD SPECIMENOrdering Facility: [facility] Address: [address] [place] [address] Performed By: #### 2 4323-8 ####[facility] LWCLIA [id number] [place] [id number] [place] Urea nitrogen [Mass/Vol] 18 mg/dL Normal 7-21 [facility] Comment on above: Order Comment: Speci men Type: BLOOD SPECIMENOrdering Facility: [facility] Address: [address] [place] [address] Performed By: #### 2 4323-8 ####[facility] LWCLIA [id number] [place] [address] [place] ED NOTEon 05-18-2025 ED NOTE HNO ID: [id number] Author: CHITRA SOLORIO RN Service: Emergency Medicine Author Type: Registered Nurse Type: ED Notes Filed: 05/18/2025 20:44 Note Text: Report given MMT Normal [facility] ED NOTE HNO ID: [id number] Author: CHITRA SOLORIO RN Service: Emergency Medicine Author Type: Registered Nurse Type: ED Notes Filed: 05/18/2025 20:35 Note Text: Report given to MIRNA Cordova [facility] PK1A Normal [facility] ED NOTE HNO ID: [id number] Author: CHITRA SOLORIO RN Service: Emergency Medicine Author Type: Registered Nurse Type: ED Notes Filed: 05/18/2025 20:10 Note Text: Attempted Report to [facility]- PK1A : No answer. Will try again Normal [facility] ED NOTE Normal [facility] ED PROV NOTEon 05-18-2025 ED PROV NOTE Normal [facility] HISTORY PHYSICALon HISTORY PHYSICAL HNO ID: [id number] Author: DENA SNOW MD Service: Hospital Medicine Author Type: Physician Type: H&P Filed: 05/19/2025 00:31 Note Text: DEPARTMENT OF HOSPITAL MEDICINE HISTORY AND PHYSICAL EXAM SERVICE DATE: 05/18/2025 SERVICE TIME: 10:50 PM Primary Care Physician: No primary care provider on file. NIGHT AND WEEKEND COVERAGE: [facility] COVERAGE:Page [phone] Subjective CHIEF COMPLAINT: fever and right breast pain HPI: This is a 89-afe[age]-x[age]-female patient, PMHx bipolar disorder, hepatic steatosis, extensive allergies to multiple antibiotics, NIKKIE, and OCD. She presents with fever and right breast pain. The patient was just here at [facility] from 05/11 till 05/17, meaning she was discharged 1 night ago. She was here in the hospital with bilateral mastitis following nipple piercing. Her stay was complicated by developing allergies against daptomycin "anaphylactic reaction" and meropenem. She also had suspected "red man" syndrome with vancomycin. Her blood cultures remain negative throughout hospitalization, and wound cultures grew only rare gram-positive cocci consistent with a skin nia. Infectious disease were involved in patient's care, and eventually the patient was discharged without oral antibiotics given that she finished 5 days of IV antibiosis. After discharge, the same night, the patient continued to have chills along with episodes of feeling of hotness, maximum documented fever was of 104 F. Today in the morning, the patient noticed that she is getting confused along with generalized weakness. She did feel nauseated and vomited with these symptoms, but denies abdominal pain. The patient also states that today she noticed that her right breast is getting red and painful but without swelling. She also noticed that her right nipple is now draining yellowish material mixed with blood. In regard to the left breast, it's better than before but still has some drainage of pus from the left nipple. The patient is a non-smoker. She also denies drinking alcohol and illicit substance use. ED Course: BP 125/77, HR 85, temperature 36.7 C, and O2 Sat 97% on RA Lactate 2.2 then 3.4, rising CBC remarkable for WBCs 11.65 with lymphocytosis CMP only remarkable for AST 68 (down-trending) Blood cultures collected US of the chest wall: negative for breat abscess formation. 1 L of LR was given. Vancomycin was also given after pre-medicating with diphenhydramine. The patient was then transferred to [facility] and and admitted to [facility] for further evaluation and management. On arrival to [facility], the patient is hemodynamically stable, afebrile, and maintaining O2 Sat at target on RA. She continues to have generalized itching, no difficulty breathing or hoarseness of voice. She's also c/o pain at the upper inner quadrant of the right breast. PAST MEDICAL HISTORY Diagnosis Date Endometriosis 10/26/2014 never had diagnostic lap to confirm, patient did not want surgery NIKKIE (generalized anxiety disorder) Gestational diabetes mellitus (GDM) affecting second ([facility]) 05/25/2022 Infertility, female Migraine without aura and without status migrainosus, not intractable 07/18/2019 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[facility]) 08/27/2015 Panic disorder without agoraphobia PMH - PAST MEDICAL HISTORY OF vascular disease 01/2002 PMH - PAST MEDICAL HISTORY OF wearing glasses and broke ankle at age 3, wrist fracture depression PAST SURGICAL HISTORY Procedure Laterality Date 2D ECHO COMPLETE INP 01/03/2015 EF=67%, WNL SNGL 07/22/2022 FAMILY HISTORY Problem Relation Age of Onset Asthma Mother Psychiatry Mother Bi-Polar Hypertension Maternal Grandmother Heart Maternal Grandfather triple by pass heart diagnosed in Stroke Paternal Grandmother Cancer Paternal Grandmother Breast Cancer Paternal Grandmother Heart Paternal Grandfather heart attack. . Emphysema Paternal Grandfather Diabetes Other maternal side Ovarian cancer Paternal cousin Prostate Cancer Maternal Uncle Social History Tobacco Use Smoking status: Never Passive exposure: Never Smokeless tobacco: Never Tobacco comments: Pt denies Vaping Use Vaping status: Never Used Substance Use Topics Alcohol use: Yes Comment: rare Drug use: No Comment: Pt denies PRIOR TO ADMISSION MEDICATIONS: Prior to Admission Medications Prescriptions Last Dose Informant Patient Reported? Taking? EPINEPHrine (EPIPEN 2-RICK) 0.3 mg/0.3 mL auto-injector No No Sig: Inject 0.3 mL intramuscularly as needed. EPINEPHrine (EPIPEN) 0.3 mg/0.3 mL auto-injector No No Sig: Inject 0.3 mL intramuscularly as needed (for analphylactic reaction). clonazePAM (KLONOPIN) 1 mg tablet 05/17/2025 Yes Yes Sig: Take 1 mg by mouth once daily as needed for anxiety. cyproheptadine (PERIACTIN) 4 mg tablet No No Sig: Take 1 tablet by mouth two times a day a (more content not included)... Normal [facility] SEPSIS LACTATE W/ REFLEX (IN ITIAL)on 05-18-2025 Lactate [Moles/Vol] 2.2 mmol/L High <=2.0 [facility] Comment on above: Order Comment: Speci men Type: BLOOD SPECIMENOrdering Facility: [facility] Address: [address] [place] [address] Performed By: #### S LACTR ####[facility] LWCLIA [id number] [place] [id number] [place] SEPSIS LACTATE W/ REFLEX (SE COND)on 05-18-2025 Lactate [Moles/Vol] 3.4 mmol/L High <=2.0 [facility] Comment on above: Order Comment: Speci men Type: BLOOD SPECIMENOrdering Facility: [facility] Address: [address] [place] [address] Performed By: #### S LACT2 ####[facility] LWCLIA [id number] [place] [id number] [place] US CHEST WALL/SOFT TISSUEon 05-18-2025 US CHEST WALL/SOFT TISSUE Normal [facility] CBC panel Auto (Bld)on 05-17 Erythrocyte distribution width (RBC) [Ratio] 13.2 % Normal 11.5-15.0 [facility] Comment on above: Order Comment: Speci men Type: BLOOD SPECIMEN [facility] Address: [address] [place] [address] Performed By: #### 5 8410-2 #### [facility] CLIA [id number] [address] [place] [address] [place] Hematocrit (Bld) [Volume fraction] 41.9 % Normal 36.0-46.0 [facility] Comment on above: Order Comment: Speci men Type: BLOOD SPECIMEN [facility] Address: [address] [place] [address] Performed By: #### 5 8410-2 #### [facility] CLIA [id number] [address] [place] [address] [place] Hemoglobin (Bld) [Mass/Vol] 14.2 g/dL Normal 11.5-15.5 [facility] Comment on above: Order Comment: Speci men Type: BLOOD SPECIMEN [facility] Address: [address] [place] [address] Performed By: #### 5 8410-2 #### [facility] CLIA [id number] [address] [place] [address] [place] MCH (RBC) [Entitic mass] 29.5 pg Normal 26.0-34.0 [facility] Comment on above: Order Comment: Speci men Type: BLOOD SPECIMEN Ordering Facility: [facility] Address: [address] [place] [address] Performed By: #### 5 8410-2 #### [facility] CLIA [id number] [address] [place] [address] [place] MCHC (RBC) [Mass/Vol] 33.9 g/dL Normal 30.5-36.0 [facility] Comment on above: Order Comment: Speci men Type: BLOOD SPECIMEN Ordering Facility: [facility] Address: [address] [place] [address] Performed By: #### 5 8410-2 #### [facility] CLIA [id number] [address] [place] [address] [place] MCV (RBC) [Entitic vol] 87.1 fL Normal 80.0-100.0 [facility] Comment on above: Order Comment: Speci men Type: BLOOD SPECIMEN Ordering Facility: [facility] Address: [address] [place] [address] Performed By: #### 5 8410-2 #### [facility] CLIA [id number] [address] [place] [address] [place] Nucleated RBC (Bld) [#/Vol] 10*3/uL Normal <0.01 [facility] Comment on above: Order Comment: Speci men Type: BLOOD SPECIMEN Ordering Facility: [facility] Address: [address] [place] [address] Performed By: #### 5 8410-2 #### [facility] CLIA [id number] [address] [place] [address] [place] Platelet mean volume (Bld) [Entitic vol] 9.7 fL Normal 9.0-12.7 [facility] Comment on above: Order Comment: Speci men Type: BLOOD SPECIMEN Ordering Facility: [facility] Address: [address] [place] [address] Performed By: #### 5 8410-2 #### [facility] CLIA [id number] [address] [place] [address] [place] Platelets (Bld) [#/Vol] 270 10*3/uL Normal 150-400 [facility] Comment on above: Order Comment: Speci men Type: BLOOD SPECIMEN Ordering Facility: [facility] Address: [address] [place] [address] Performed By: #### 5 8410-2 #### [facility] CLIA [id number] [address] [place] [address] [place] RBC (Bld) [#/Vol] 4.81 10*6/uL Normal 3.90-5.20 [facility] Comment on above: Order Comment: Speci men Type: BLOOD SPECIMEN Ordering Facility: [facility] Address: [address] [place] [address] Performed By: #### 5 8410-2 #### [facility] CLIA [id number] [address] [place] [address] [place] WBC (Bld) [#/Vol] 8.30 10*3/uL Normal 3.70-11.00 [facility] Comment on above: Order Comment: Mookie roberts Type: BLOOD SPECIMEN Ordering Facility: [facility] Address: [address] [id number] Performed By: #### 5 8410-2 #### [facility] [place] [id number] OF [facility] CONNORDSlucila 05-17-2025 CNDS HNO ID: [id number] Author: SUAD ANGLIN MD Service: Hospital Medicine Author Type: Resident Type: Discharge Summary Filed: 05/18/2025 05:27 Note Text: ----- Attestation signed by Suad Anglin MD at 05/18/2025 5:27 AM Attending Note I evaluated the patient and personally participated in the guido components. I agree with the resident's findings and plan as documented and have discussed the case and management of the patient's care with the resident. Plan of care discussed with resident, RN AND patient. I performed [id number] and all relevant services for > 30 mins. Signature: Suad Anglin MD Staff Physician, [facility] Date: 05/18/2025 Time: 5:26 AM ----- DISCHARGE SUMMARY PATIENT NAME: Rosalva Huang ADMISSION DATE: 05/11/2025 DISCHARGE DATE: 05/17/2025 ATTENDING PHYSICIAN: Suad Anglin MD Code Status: Full Code PCP: No primary care provider on file. Highest Readmission Risk Score: 58 The 30 day readmissions risk score is derived from an internally validated risk model which evaluates patient level characteristics, utilization history, medication orders and lab results up until the day of discharge. Patients with a score of 39 or above are considered highest risk for readmission. Specific patient level drivers will be listed at the bottom of the summary. TRANSITIONS OF CARE CRITICAL ISSUES: GUIDO MEDICATION CHANGES: N/A Follow-Up Appointments: Primary Care Physician - within 1 week Allergy/Immunology - outpatient referral Psychiatry - resume follow-up as scheduled REASON FOR HOSPITALIZATION/FINAL DIAGNOSIS: B/L Mastitis with purulent drainage HOSPITAL PROBLEMS: Active Hospital Problems Diagnosis POA Mastitis Yes Transaminitis Unknown Resolved Hospital Problems No resolved problems to display. HOSPITAL COURSE: Ms Rosalva Huang is a 35-year-old female with a history of bipolar disorder and extensive antibiotic allergies who presented to the ED with left-sided nipple discharge in the setting of mastitis following a nipple piercing. She was noted to have bilateral breast warmth, erythema, proximal streaking, and nipple discharge. Initial ultrasound of the left breast showed no evidence of abscess. Due to the patient?s extensive antibiotic allergy history, antimicrobial selection was challenging. She was initially started on vancomycin, but developed mild pruritus and itching, suspected to be early red man syndrome. Despite pre-medication, vancomycin was discontinued. She was subsequently transitioned to daptomycin, but on hospital day 4 (05/15), she experienced an anaphylactic reaction with angioedema, lip and throat swelling, and difficulty swallowing, requiring emergent management. She was later trialed on meropenem, to which she also developed a hypersensitivity reaction on 05/16. Despite this, the patient insisted on continuing therapy. Ultimately, vancomycin was cautiously restarted with pre-medications (solumedrol, famotidine, and diphenhydramine), but she again experienced symptoms consistent with red man syndrome on 05/17. Blood cultures remained negative throughout hospitalization. Wound cultures grew rare gram-positive cocci consistent with skin nia and no organisms of concern. Infectious Disease was closely involved in management and determined the patient had completed 5 full days of IV antibiotics, which was deemed an acceptable duration given clinical improvement and the absence of systemic signs of infection or abscess. Pain was managed symptomatically during hospitalization, and her symptoms were improving at the time of discharge. OPERATIONS/PROCEDURE DURING THIS HOSPITALIZATION: * No surgery found * CONSULTS DURING HOSPITALIZATION: Treatment Team: Attending Provider: Suad Anglin MD Consulting: Duran Kern MD Primary Service: 3, Fv PATIENT CONDITION AT DISCHARGE: Stable DISCHARGE DISPOSITION: Home with Self Care Discharge Physical Exam: VITAL SIGNS: BP 112/71 Pulse 79 Temp 36.6 ?C (97.9 ?F) (Oral) Resp 16 Ht 162.6 cm (5' 4") Wt 88.5 kg (195 lb) LMP (LMP Unknown) SpO2 95% BMI 33.47 kg/m? GENERAL: Alert, no distress, cooperative SKIN: Skin color, texture, turgor normal. No rashes or lesions. EYES: PERRLA, EOMI OROPHARYNX: Lips, mucosa, and tongue normal. Teeth and gums normal. Oropharynx normal. BACK: Back symmetric, Normal curvature, ROM normal, No CVAT. LUNGS: Lungs clear to auscultation, Good diaphragmatic excursion CARDIAC: Normal S1 and S2; no rubs, murmurs, or gallops ABDOMEN: Abdomen soft, non-tender, BS normal, No masses or organomegaly EXTREMITIES: Extremities normal, no deformities, edema, clubbing or skin discoloration. Good capillary refill., No ulcers NEURO: Gait normal. Reflexes normal and symmetric (more content not included)... Normal [facility] CONSULT PROGon 05-17-2025 CONSULT PROG HNO ID: [id number] Author: DURAN KERN MD Service: Infectious Disease Author Type: Physician Type: Consult Progress Note Filed: 05/21/2025 04:08 Note Text: INFECTIOUS DISEASE CONSULT PROGRESS NOTES PATIENT NAME: Rosalva Huang SERVICE DATE: 05/17/2025 ASSESSMENT AND PLAN: Left nipple infection due to piercing, has ring in place. Advised TO patient- may need ring removal. 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 IV meropenem, and daptomycin-- 05/15---dcd dapto , developed anaphylactic reaction 05/16--developed reaction to meropenem as well . dcd pt WAS very adamant to complete ab course 05/17-- however developed severe reaction to Vancor also clinically MASTITIS has improved d/w prim team--dc all ab . mrsa screen-neg . Left mastitis and cellulitis. iv meropenem Bipolar disorder. Transaminitis. right upper quadrant ultrasound.---hepatic steatosis 05/13--hepatitis screen.----reviewed/ neg . bipolar disorder on meds d/w pt and n staff interval hpi-----PT -developed reaction to meropenem and was dcd also developed severe reaction to Vancor as well d/w prim team- dc all ab ok to d/s advised pt to see immunology/ statistical geneticist for desensitization atleast to pcn . pt agrees . Transaminitis. likely due to ---hepatic steatosis hepatitis screen.---reviewed-neg MEDICATIONS: Current Facility-Administered Medications Medication Dose Route Frequency NaCl 0.9% iv flush bag 20 mL INTRAVENOUS PRN ondansetron 4 mg tab(s) (ZOFRAN) 4 mg ORAL q 6 H PRN Or ondansetron (PF) 4 mg injection (ZOFRAN) 4 mg INTRAVENOUS q 6 H PRN clonazePAM 1 mg tab(s) (KlonoPIN) 1 mg ORAL DAILY PRN divalproex ER 1,000 mg tab(s) (DEPAKOTE ER) 1,000 mg ORAL DAILY escitalopram oxalate 20 mg tab(s) (LEXAPRO) 20 mg ORAL DAILY lamoTRIgine 100 mg tab(s) (LaMICtal) 100 mg ORAL AT BEDTIME risperiDONE (RisperDAL) tab(s) 3 mg 3 mg ORAL AT BEDTIME acetaminophen 650 mg tab(s) (TYLENOL) 650 mg ORAL q 6 H PRN oxyCODONE IR 5 mg tab(s) (ROXICODONE) 5 mg ORAL q 6 H PRN enoxaparin 40 mg injection (LOVENOX) 40 mg SUBCUTANEOUS q 24 HR senna-docusate 8.6-50 mg 1 tablet (SENNA-S) 1 tablet ORAL BID polyethylene glycol 3350 17 g packet 17 g ORAL DAILY PRN famotidine 10 mg injection (PEPCID) 10 mg INTRAVENOUS BID vancomycin dosing and monitoring per pharmacy OTHER As Directed diphenhydrAMINE 50 mg injection (BENADRYL) 50 mg INTRAVENOUS q 6 H PRN diphenhydrAMINE 50 mg injection (BENADRYL) 50 mg INTRAVENOUS q 12 H And vancomycin iv piggyback 1.25 g in D5W 250 mL (VANCOCIN) 0.015 g/kg/dose INTRAVENOUS q 12 HR OBJECTIVE PHYSICAL EXAM: BP 128/64 Pulse 71 Temp (Src) 97.9 (Oral) Resp 16 Ht 5' 4" (1.63m) Wt 195 lb (88.5kg) SpO2 95% BMI 33.46 kg/(m2). Skin: There is no evident rash. Neck: Supple. Oropharynx clear. No evidence of thrush. No cervical lymphadenopathy. Chest: Decreased air entry, bilateral bases. Few rales heard. Cardiovascular: S1, S2 normal. No murmur, no gallop heard. Abdomen: Soft, nontender. No organomegaly. Bilateral Breasts: The patient has rings in bilateral nipples. Left nipple is tender. Drainage is present. Culture has been obtained. The patient has erythema on the left breast, tender consistent with mastitis. No breast fold rash. No fungal rash. Abdomen: Soft, nontender. No organomegaly. Bowel sounds present. Extremities: Trace edema is present. The patient is moving all 4 extremitie Diagnostic tests reviewed for today's visit: Most recent labs and compared Most recent micro/ EKG Most recent imaging and compared Recent Labs 05/17/25 0904 05/16/25 0637 05/15/25 0342 WBC 8.30 9.43 6.35 HB 14.2 13.4 12.5 HCT 41.9 39.7 38.3 PLT 270 265 235 NA 137 136 140 K 4.7 -- 4.4 CHLOR 105 104 103 CO2 19* 19* 26 BUN 13 13 14 CREAT 0.52* 0.54* 0.78 GLUC 131* 120* 99 CA 9.1 9.0 8.8 CRP 0.8 03/04/2025 Duran Kern MD 05/17/2025 5:01 PM [facility] CONSULT PROG HNO ID: [id number] Author: RENEE UGALDE [facility] Service: Pharmacy Author Type: Pharmacist Type: Consult Progress Note Filed: 05/17/2025 10:42 Note Text: PHARMACY VANCOMYCIN DOSING NOTE Patient Name: Rosalva Huang Admission Date: 05/11/2025 Date of Consult: 05/17/2025 Time of Consult: 10:41 AM RECOMMENDATIONS/PLAN: Pharmacy consulted for vancomycin dosing for Rosalva Huang, a 35 year old female. Vancomycin therapy has been discontinued. Vancomycin level(s) have been discontinued: Not Applicable. The pharmacy vancomycin dosing service will sign off. Thank you for allowing us to participate in this patient's care. Please contact pharmacy if there are questions. Renee Ugalde RPh Normal [facility] CONSULT PROG HNO ID: [id number] Author: MICHELLE MARES RPh Service: Pharmacy Author Type: Pharmacist Type: Consult Progress Note Filed: 05/17/2025 03:19 Note Text: PHARMACY VANCOMYCIN DOSING NOTE Patient Name: Rosalva Huang Admission Date: 05/11/2025 Date of Consult: 05/17/2025 Time of Consult: 3:16 AM Indication: Skin/soft tissue infection Goal Range: 10-20 mcg/mL RECOMMENDATIONS/PLAN: Pharmacy consulted for vancomycin dosing for Rosalva Huang, a 35 year old female. 1. Patient is currently ordered Vancomycin 1.25 g IV q12h. Today is day 1 of therapy. 2. No vancomycin level has been drawn for this dosing regimen. 3. The present dose of vancomycin is the recommended dosage for this patient at this time. Continue therapy as prescribed. 4. Based on anticipated duration of therapy and/or clinical course no additional levels are planned to be drawn. We will follow patient renal function, vancomycin levels and doses with you during the course of therapy. Additional recommendations will appear in follow up notes. If you have any questions, please contact Michelle Mares RPh at or [facility] at [phone]. Age: [age] year old Allergies: ALLERGIES Allergen Reactions Meropenem Rash, Hives, Swelling, Itching, Angioedema Clindamycin Hives Diffuse hives and angioedema of upper lip within 30 minutes of receiving 1st dose. Daptomycin Anaphylaxis Doxycycline Hives Diffuse hives 30 minutes after 1st dose. Diffuse hives and x1 episode of emesis 30 minutes after 2nd dose. Fluconazole Rash Required IV diphenhydramine 01/06/2025 Keflex [Cephalexin] Anaphylaxis 03/13/2025 Tolerated graded dose amoxicillin challenge Diffuse rash with upper lip and tongue swelling 15 minutes after first dose. Onion GI Upset Sulfamethoxazole-Tr* Hives Vancomycin Itching Flushing and pruritus consistent with vancomycin infusion reaction. Please refer to Allergy note from 01/05/2025 for details. Adhesive Tape (Rita* Rash, Itching Patient reports unable to tolerate band-aids after a procedure. She noted redness and itching at site of band aid. Mosquitos Swelling Promethazine Unknown Other Reaction(s): GI Upset Sunscreen Rash Tingle tanning lotion Zyrtec [Cetirizine * Hives, Other: See Comments Hives and palpitations within 30 minutes of 1st dose. Tolerates Benadryl without issue. No contraindication to trying other antihistamines such as Arthur or Claritin. Last 3 Encounter Wt Readings: Date: Wt: 05/11/2025 88.5 kg (195 lb) 05/11/2025 85.3 kg (188 lb 0.8 oz) 04/19/2025 86.5 kg (190 lb 11.2 oz) Last 1 Encounter Ht Readings: Date: Ht: 05/11/2025 162.6 cm (5' 4") CrCl: 158 mL/min Temp (24hrs), Av.6 ?C (97.9 ?F), Min:36.4 ?C (97.5 ?F), Max:36.9 ?C (98.4 ?F) - Current Temp: 36.4 ?C (97.5 ?F) Labs BUN (mg/dL) Date Value 05/16/2025 13 05/15/2025 14 05/14/2025 11 Creatinine (mg/dL) Date Value 05/16/2025 0.54 (L) 05/15/2025 0.78 05/14/2025 0.83 WBC (k/uL) Date Value 05/16/2025 9.43 05/15/2025 6.35 05/14/2025 6.94 Vancomycin Levels: No results found for: MARY KAY Mares [facility] Normal [facility] Comprehensive metabolic 2000 panelon 05-17-2025 Albumin [Mass/Vol] 4.2 g/dL Normal 3.9-4.9 [facility] Comment on above: Order Comment: Speci men Type: BLOOD SPECIMEN Ordering Facility: [facility] Address: [address] [place] [address] Performed By: #### 4 091-5 #### [facility] CLIA [id number] [address] [place] [address] [place] ALP [Catalytic activity/Vol] 112 U/L Normal 34-123 [facility] Comment on above: Order Comment: Speci men Type: BLOOD SPECIMEN Ordering Facility: [facility] Address: [address] [place] [address] Performed By: #### 4 091-5 #### [facility] CLIA [id number] [place] [address] [place] ALT [Catalytic activity/Vol] 76 U/L High 7-38 [facility] Comment on above: Order Comment: Speci men Type: BLOOD SPECIMEN Ordering Facility: [facility] Address: [address] [place] [address] Performed By: #### 4 091-5 #### [facility] CLIA [id number] [address] [place] [address] [place] Anion gap [Moles/Vol] 13 mmol/L Normal 8-15 [facility] Comment on above: Order Comment: Speci men Type: BLOOD SPECIMEN Ordering Facility: [facility] Address: [address] [place] [address] Performed By: #### 4 091-5 #### [facility] CLIA [id number] [address] [place] [address] [place] AST [Catalytic activity/Vol] 38 U/L High 13-35 [facility] Comment on above: Order Comment: Speci men Type: BLOOD SPECIMEN Ordering Facility: [facility] Address: [address] [place] [address] Performed By: #### 4 091-5 #### [facility] CLIA [id number] [address] [place] [address] [place] Bilirubin [Mass/Vol] 0.2 mg/dL Normal 0.2-1.3 [facility] Comment on above: Order Comment: Speci men Type: BLOOD SPECIMEN Ordering Facility: [facility] Address: [address] [place] [address] Performed By: #### 4 091-5 #### [facility] CLIA [id number] [address] [place] [address] [place] Calcium [Mass/Vol] 9.1 mg/dL Normal 8.5-10.2 [facility] Comment on above: Order Comment: Speci men Type: BLOOD SPECIMEN Ordering Facility: [facility] Address: [address] [place] [address] Performed By: #### 4 091-5 #### [facility] CLIA [id number] [address] [place] [address] [place] Chloride [Moles/Vol] 105 mmol/L Normal 98-107 [facility] Comment on above: Order Comment: Speci men Type: BLOOD SPECIMEN Ordering Facility: [facility] Address: [address] [place] [address] Performed By: #### 4 091-5 #### [facility] CLIA [id number] [address] [place] [address] [place] CO2 [Moles/Vol] 19 mmol/L Low 22-30 [facility] Comment on above: Order Comment: Speci men Type: BLOOD SPECIMEN Ordering Facility: [facility] Address: [address] [place] [address] Performed By: #### 4 091-5 #### [facility] CLIA [id number] [address] [place] [address] [place] Creatinine [Mass/Vol] 0.52 mg/dL Low 0.58-0.96 [facility] Comment on above: Order Comment: Speci men Type: BLOOD SPECIMEN Ordering Facility: [facility] Address: [address] [place] [address] Performed By: #### 4 091-5 #### [facility] CLIA [id number] [address] [place] [address] [place] Creatinine and Glomerular filtration rate.predicted panel (S/P/Bld) 125 mL/min/1.73m??? Normal >=60 [facility] Comment on above: Order Comment: Speci men Type: BLOOD SPECIMEN Ordering Facility: [facility] Address: [address] [place] [address] Result Comment: Anne-Marie mated Glomerular Filtration Rate (eGFR) is calculated using the 2020 CKD-EPI creatinine equation. This equation utilizes serum creatinine, sex, and age as parameters. The creatinine assay has traceable calibration to isotope dilution-mass spectrometry. Refer to KDIGO guidelines for clinical interpretation. In patients with unstable renal function, e.g. those with acute kidney injury, the eGFR may not accurately reflect actual GFR. Performed By: #### 4 091-5 #### [facility] CLIA [id number] [address] [place] [address] [place] Glucose [Mass/Vol] 131 mg/dL High 74-99 [facility] Comment on above: Order Comment: Mookie roberts Type: BLOOD SPECIMEN Ordering Facility: [facility] Address: [address] [place] [address] Result Comment: The [place] Diabetes Association (ADA) provides guidance for cutoff values for fasting glucose and random glucose. The ADA defines fasting as no caloric intake for at least 8 hours. Fasting plasma glucose results between 100 to 125 mg/dL indicate increased risk for diabetes (prediabetes). Fasting plasma glucose results greater than or equal to 126 mg/dL meet the criteria for diagnosis of diabetes. In the absence of unequivocal hyperglycemia, results should be confirmed by repeat testing. In a patient with classic symptoms of hyperglycemia or hyperglycemic crisis, random plasma glucose results greater than or equal to 200 mg/dL meet the criteria for diagnosis of diabetes. Reference: Standards of Medical Care in Diabetes 2016, [place] Diabetes Association. Diabetes Care. 2016.39(Suppl 1). Performed By: #### 4 091-5 #### [facility] CLIA [id number] [address] [place] [address] [place] Potassium [Moles/Vol] 4.7 mmol/L Normal 3.7-5.1 [facility] Comment on above: Order Comment: Mookie roberts Type: BLOOD SPECIMEN Ordering Facility: [facility] Address: [address] [place] [address] Performed By: #### 4 091-5 #### [facility] CLIA [id number] [address] [place] [address] [place] Protein [Mass/Vol] 7.1 g/dL Normal 6.3-8.0 [facility] Comment on above: Order Comment: Mookie roberts Type: BLOOD SPECIMEN Ordering Facility: [facility] Address: [address] [place] [address] Performed By: #### 4 091-5 #### [facility] CLIA [id number] [address] [place] [address] [place] Sodium [Moles/Vol] 137 mmol/L Normal 136-144 [facility] Comment on above: Order Comment: Speci men Type: BLOOD SPECIMEN Ordering Facility: [facility] Address: [address] [place] [address] Performed By: #### 4 091-5 #### [facility] CLIA [id number] [address] [place] [address] [place] Urea nitrogen [Mass/Vol] 13 mg/dL Normal 7-21 [facility] Comment on above: Order Comment: Speci men Type: BLOOD SPECIMEN Ordering Facility: [facility] Address: [address] [place] [address] Performed By: #### 4 091-5 #### [facility] CLIA [id number] [address] [place] [address] OF [facility] MEDICAL EMERon 05-17-2025 MEDICAL RAQUEL HNO ID: [id number] Author: JOSE FERRERA MD Service: Critical Care Author Type: Resident Type: Chg in Clinical Condition Filed: 05/17/2025 16:38 Note Text: CHANGE IN CLINICAL CONDITION SERVICE DATE: 05/17/2025 ADMISSION DATE: 05/11/2025 SERVICE TIME: 11:04 AM Code Status: Code Status: Full Code CHANGE DETAILS REASON for Call: Allergic reaction AMET / Rapid Response Called: Yes Assessment and Plan: 35-year-old female with a past medical history of bipolar disorder, multiple antibiotic allergies who presented to on 05/11 with concerns for mastitis AMET called for concerns of allergic reaction. On my arrival to bedside, patient resting comfortably on RA saturating 96%, no work of breathing, no stridor on exam. Lung sounds clear bilaterally. Mild angioedema noted around lips. Per RN, patient had just completed her vancomycin infusion when she started to report itching and mild difficulty swallowing but denied chest tightness, shortness of breath. IV solumedrol administered, IV benadryl already administered per primary team prior to AMET call. Vitals remained stable throughout AMET. Given patient is able to protect her own airway with no concern for anaphylaxis, decision was made to call off AMET and closely observe patient over the next hour to ensure no changes. AMET called off, patient in stable condition. PHYSICAL EXAM: BP 115/69 Pulse 90 Temp 36.4 ?C (97.5 ?F) (Oral) Resp 16 Ht 162.6 cm (5' 4") Wt 88.5 kg (195 lb) LMP (LMP Unknown) SpO2 93% BMI 33.47 kg/m? SIGNATURE: Jose Ferrera MD PATIENT NAME: Rosalva Huang DATE: May 17, 2025 TIME: 4:35 PM Normal [facility] NURSING PROGon 05-17-2025 NURSING PROG HNO ID: [id number] Author: LORETA PARKINSON RN Service: Nursing Author Type: Registered Nurse Type: Nursing Progress Note Filed: 05/17/2025 17:20 Note Text: Other: 1032 Checked on pt since this was her first dose of Vancomycin today. She stated "I'm red all over". Slight redness noted on back with some pinpoint rash areas. Small area on chest red. Some redness noted on neck as well. states that it feels difficult to swallow. No resp distress at this time. Dr. Cunningham happened to come into the room at this time and was made aware. He will order solumedrol, benadryl, and pepcid. 1043 Benadryl 50mg IV given. 1046 solumedrol IV given. 1049 Pepcid IV given. 1100 Redness on chest and neck gone.Still c/o throat feeling like it's hard to swallow. Pt requested Klonopin d/t feeling anxious. Medicated with Klonopin. 1105 Amet called d/t pt c/o that her throat felt tight and h/o one called before because of reaction to daptomycin a few days ago and because of reaction yesterday to meropenem. No resp distress. 1111 Examined by team. Amet called off. She will be re-evaluated by them in approximately 1/2hr. 1120 States that the tightness in her throat is decreasing. No resp distress. 1125 States that the tightness is still there but still decreased but also states that it feels hard to swallow her own saliva. No resp distress. 1135 Status unchanged. No resp distress. When asked how she is feeling she stated "I'm fine." 1225 Upon checking up on pt, she stated that "I just don't feel good." She stated that she still feels itchy, that her throat is unchanged and having chills. Will update the medical team. 1230 Dr. Cunningham given update of how pt is feeling. 1245 Checked on pt and she stated that her breasts were red. Upon examination, light redness noted in both breasts in the upper region closer to the chest. 1300 Pt requesting that the physician be asked to come see her. Dr. Cunningham texted paged and updated. 1351 IV Pepcid given per order. Dr. Cunningham will be up to see pt. 1400 Dr. Cunningham here. Pt's breast redness did spread from being mainly by the upper breast/chest area to down the front of both breasts. 1655 Discharge instructions given with good understanding. IV removed-no complications noted at site. Pt trying to arrange for an Uber. 1705 Upon entering pt's room she was not in there. Her discharge papers found on the bedside table. Also found a charging block and a pair of black leggings. These were sent to [facility] in a bag with her name on it. The discharge papers will be sent to her home. [facility] NURSING PROG HNO ID: [id number] Author: PERRI GROVES RN Service: Nursing Author Type: Registered Nurse Type: Nursing Progress Note Filed: 05/17/2025 01:35 Note Text: Other: Nursing Intervention Note 0: Meropenem antibiotic started 2244: Patient called at 5 with complaints of rash and itching. 2246: Primary nurse LS assessed patient at bedside and noted rash around patient's neck, left side lip angioedema, scalp redness, and hives on bilateral arms. Patient complained of severe itching on her scalp. Vitals at 2254 - Temp: 98.2, 102 HR, 16 RR, 111/60, 97% on RA. Provider was paged at 2250. 2259: Provider (Christopher Taylor MD) arrived at bedside to assess patient. 2309: Provider ordered IV solumedrol and given at 2316. 2330: Patient still complaining of itching despite solumedrol. Provider paged. 0000: IV Benadryl ordered by provider and administered at 0011. 0030: Left lip angioedema appears to lessening in swelling and patient reports decrease itching following IV steroid and Benadryl. Rash is significantly reduced on patient's neck. Normal [facility] CBC W Auto Differential pane l (Bld)on 05-16-2025 Basophils (Bld) [#/Vol] 10*3/uL Normal <0.11 [facility] Comment on above: Order Comment: Speci men Type: BLOOD SPECIMEN Ordering Facility: [facility] Address: [address] [place] [address] Performed By: #### 5 7021-8 #### [facility] CLIA [id number] [address] [place] [address] [place] Basophils/100 WBC (Bld) 0.2 % Normal [facility] Comment on above: Order Comment: Speci men Type: BLOOD SPECIMEN Ordering Facility: [facility] Address: [address] [place] [address] Performed By: #### 5 7021-8 #### [facility] CLIA [id number] [address] [place] [address] [place] Differential cell count method Nom (Bld) Auto Normal [facility] Comment on above: Order Comment: Speci men Type: BLOOD SPECIMEN Ordering Facility: [facility] Address: [address] [place] [address] Performed By: #### 5 7021-8 #### [facility] CLIA [id number] [address] [place] [address] [place] Eosinophils (Bld) [#/Vol] 10*3/uL Normal <0.46 [facility] Comment on above: Order Comment: Speci men Type: BLOOD SPECIMEN Ordering Facility: [facility] Address: [address] [place] [address] Performed By: #### 5 7021-8 #### [facility] CLIA [id number] [address] [place] [address] [place] Eosinophils/100 WBC (Bld) 0.0 % Normal [facility] Comment on above: Order Comment: Speci men Type: BLOOD SPECIMEN Ordering Facility: [facility] Address: [address] [place] [address] Performed By: #### 5 7021-8 #### [facility] CLIA [id number] [address] [place] [address] [place] Erythrocyte distribution width (RBC) [Ratio] 13.2 % Normal 11.5-15.0 [facility] Comment on above: Order Comment: Speci men Type: BLOOD SPECIMEN Ordering Facility: [facility] Address: [address] [place] [address] Performed By: #### 5 7021-8 #### [facility] CLIA [id number] [address] [place] [address] [place] Hematocrit (Bld) [Volume fraction] 39.7 % Normal 36.0-46.0 [facility] Comment on above: Order Comment: Speci men Type: BLOOD SPECIMEN Ordering Facility: [facility] Address: [address] [place] [address] Performed By: #### 5 7021-8 #### [facility] CLIA [id number] [address] [place] [address] [place] Hemoglobin (Bld) [Mass/Vol] 13.4 g/dL Normal 11.5-15.5 [facility] Comment on above: Order Comment: Speci men Type: BLOOD SPECIMEN Ordering Facility: [facility] Address: [address] [place] [address] Performed By: #### 5 7021-8 #### [facility] CLIA [id number] [address] [place] [address] [place] Immature granulocytes (Bld) [#/Vol] 0.18 10*3/uL High <0.10 [facility] Comment on above: Order Comment: Speci men Type: BLOOD SPECIMEN Ordering Facility: [facility] Address: [address] [place] [address] Performed By: #### 5 7021-8 #### [facility] CLIA [id number] [address] [place] [address] [place] Immature granulocytes/100 WBC (Bld) 1.9 % Normal [facility] Comment on above: Order Comment: Speci men Type: BLOOD SPECIMEN Ordering Facility: [facility] Address: [address] [place] [address] Performed By: #### 5 7021-8 #### [facility] CLIA [id number] [address] [place] [address] [place] Lymphocytes (Bld) [#/Vol] 1.18 10*3/uL Normal 1.00-4.00 [facility] Comment on above: Order Comment: Speci men Type: BLOOD SPECIMEN Ordering Facility: [facility] Address: [address] [place] [address] Performed By: #### 5 7021-8 #### [facility] CLIA [id number] [address] [place] [address] [place] Lymphocytes/100 WBC (Bld) 12.5 % Normal [facility] Comment on above: Order Comment: Speci men Type: BLOOD SPECIMEN Ordering Facility: [facility] Address: [address] [place] [address] Performed By: #### 5 7021-8 #### [facility] CLIA [id number] [address] [place] [address] [place] MCH (RBC) [Entitic mass] 29.5 pg Normal 26.0-34.0 [facility] Comment on above: Order Comment: Speci men Type: BLOOD SPECIMEN Ordering Facility: [facility] Address: [address] [place] [address] Performed By: #### 5 7021-8 #### [facility] CLIA [id number] [address] [place] [address] [place] MCHC (RBC) [Mass/Vol] 33.8 g/dL Normal 30.5-36.0 [facility] Comment on above: Order Comment: Speci men Type: BLOOD SPECIMEN Ordering Facility: [facility] Address: [address] [place] [address] Performed By: #### 5 7021-8 #### [facility] CLIA [id number] [address] [place] [address] [place] MCV (RBC) [Entitic vol] 87.4 fL Normal 80.0-100.0 [facility] Comment on above: Order Comment: Speci men Type: BLOOD SPECIMEN Ordering Facility: [facility] Address: [address] [place] [address] Performed By: #### 5 7021-8 #### [facility] CLIA [id number] [address] [place] [address] [place] Monocytes (Bld) [#/Vol] 0.72 10*3/uL Normal <0.87 [facility] Comment on above: Order Comment: Speci men Type: BLOOD SPECIMEN Ordering Facility: [facility] Address: [address] [place] [address] Performed By: #### 5 7021-8 #### [facility] CLIA [id number] [address] [place] [address] [place] Monocytes/100 WBC (Bld) 7.6 % Normal [facility] Comment on above: Order Comment: Speci men Type: BLOOD SPECIMEN Ordering Facility: [facility] Address: [address] [place] [address] Performed By: #### 5 7021-8 #### [facility] CLIA [id number] [address] [place] [address] [place] Neutrophils (Bld) [#/Vol] 7.33 10*3/uL Normal 1.45-7.50 [facility] Comment on above: Order Comment: Speci men Type: BLOOD SPECIMEN Ordering Facility: [facility] Address: [address] [place] [address] Performed By: #### 5 7021-8 #### [facility] CLIA [id number] [address] [place] [address] [place] Neutrophils/100 WBC (Bld) 77.8 % Normal [facility] Comment on above: Order Comment: Speci men Type: BLOOD SPECIMEN Ordering Facility: [facility] Address: [address] [place] [address] Performed By: #### 5 7021-8 #### [facility] CLIA [id number] [address] [place] [address] [place] Nucleated RBC (Bld) [#/Vol] 10*3/uL Normal <0.01 [facility] Comment on above: Order Comment: Speci men Type: BLOOD SPECIMEN Ordering Facility: [facility] Address: [address] [place] [address] Performed By: #### 5 7021-8 #### [facility] CLIA [id number] [address] [place] [address] [place] Nucleated RBC/100 WBC (Bld) [Ratio] 0.0 /100 WBC Normal [facility] Comment on above: Order Comment: Speci men Type: BLOOD SPECIMEN Ordering Facility: [facility] Address: [address] [place] [address] Performed By: #### 5 7021-8 #### [facility] CLIA [id number] [address] [place] [address] [place] Platelet mean volume (Bld) [Entitic vol] 9.6 fL Normal 9.0-12.7 [facility] Comment on above: Order Comment: Speci men Type: BLOOD SPECIMEN Ordering Facility: [facility] Address: [address] [place] [address] Performed By: #### 5 7021-8 #### [facility] CLIA [id number] [address] [place] [address] [place] Platelets (Bld) [#/Vol] 265 10*3/uL Normal 150-400 [facility] Comment on above: Order Comment: Speci men Type: BLOOD SPECIMEN Ordering Facility: [facility] Address: [address] [place] [address] Performed By: #### 5 7021-8 #### [facility] CLIA [id number] [address] [place] [address] [place] RBC (Bld) [#/Vol] 4.54 10*6/uL Normal 3.90-5.20 [facility] Comment on above: Order Comment: Speci men Type: BLOOD SPECIMEN Ordering Facility: [facility] Address: [address] [facility] [place] [id number] Performed By: #### 5 7021-8 #### [facility] CLIA [id number] [address] [place] [address] [place] WBC (Bld) [#/Vol] 9.43 10*3/uL Normal 3.70-11.00 [facility] Comment on above: Order Comment: Speci men Type: BLOOD SPECIMEN Ordering Facility: [facility] Address: [address] [place] [address] Performed By: #### 5 7021-8 #### [facility] CLIA [id number] [address] [place] [id number] [facility] [place] CONSULT PROGon 05-16-2025 CONSULT PROG HNO ID: [id number] Author: DURAN KERN MD Service: Infectious Disease Author Type: Physician Type: Consult Progress Note Filed: 05/17/2025 03:04 Note Text: INFECTIOUS DISEASE CONSULT PROGRESS NOTES PATIENT NAME: Rosalva Huang SERVICE DATE: 05/16/2025 ASSESSMENT AND PLAN: Left nipple infection due to piercing, has ring in place. Advised TO patient- may need ring removal. 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 IV meropenem, and daptomycin-- 05/15---dcd dapto , developed anaphylactic reaction 05/16--developed reaction to meropenem as well . dcd pt very adamant to complete 7 days of ab mrsa screen-neg . Left mastitis and cellulitis. iv meropenem Bipolar disorder. Transaminitis. right upper quadrant ultrasound.---hepatic steatosis 05/13--hepatitis screen.----reviewed/ neg . bipolar disorder on meds d/w pt and n staff interval hpi-----PT -developed reaction to meropenem as well . dcd received benadryl and iv solumedrol from prim team pt very adamant to complete 7 days of ab wants to take iv Vanco with 50mgs of iv benadryl x 2 days and then home reports lt breast is improving .pt has removed rings from both nipples -dcd dapto 05/15 after-,pt developed anaphylactic reaction advised pt to see immunology/ statistical geneticist for desensitization atleast to n . pt agrees . Transaminitis. likely due to ---hepatic steatosis hepatitis screen.---reviewed-neg MEDICATIONS: Current Facility-Administered Medications Medication Dose Route Frequency NaCl 0.9% iv flush bag 20 mL INTRAVENOUS PRN ondansetron 4 mg tab(s) (ZOFRAN) 4 mg ORAL q 6 H PRN Or ondansetron (PF) 4 mg injection (ZOFRAN) 4 mg INTRAVENOUS q 6 H PRN clonazePAM 1 mg tab(s) (KlonoPIN) 1 mg ORAL DAILY PRN divalproex ER 1,000 mg tab(s) (DEPAKOTE ER) 1,000 mg ORAL DAILY escitalopram oxalate 20 mg tab(s) (LEXAPRO) 20 mg ORAL DAILY lamoTRIgine 100 mg tab(s) (LaMICtal) 100 mg ORAL AT BEDTIME meropenem 1 g in NaCl 0.9% 100 mL Vial-Bag (MERREM) 1 g INTRAVENOUS q 8 H risperiDONE (RisperDAL) tab(s) 3 mg 3 mg ORAL AT BEDTIME acetaminophen 650 mg tab(s) (TYLENOL) 650 mg ORAL q 6 H PRN oxyCODONE IR 5 mg tab(s) (ROXICODONE) 5 mg ORAL q 6 H PRN enoxaparin 40 mg injection (LOVENOX) 40 mg SUBCUTANEOUS q 24 HR diphenhydrAMINE 50 mg injection (BENADRYL) 50 mg INTRAVENOUS q 6 H PRN OBJECTIVE PHYSICAL EXAM: BP 115/75 Pulse 81 Temp (Src) 97.5 (Oral) Resp 18 Ht 5' 4" (1.63m) Wt 195 lb (88.5kg) SpO2 94% BMI 33.46 kg/(m2). O2 Therapy: Room Air Skin: There is no evident rash. Neck: Supple. Oropharynx clear. No evidence of thrush. No cervical lymphadenopathy. Chest: Decreased air entry, bilateral bases. Few rales heard. Cardiovascular: S1, S2 normal. No murmur, no gallop heard. Abdomen: Soft, nontender. No organomegaly. Bilateral Breasts: The patient has rings in bilateral nipples. Left nipple is tender. Drainage is present. Culture has been obtained. The patient has erythema on the left breast, tender consistent with mastitis. No breast fold rash. No fungal rash. Abdomen: Soft, nontender. No organomegaly. Bowel sounds present. Extremities: Trace edema is present. The patient is moving all 4 extremities. Diagnostic tests reviewed for today's visit: Most recent labs and compared Most recent micro/ EKG Most recent imaging and compared Recent Labs 05/16/25 0637 05/15/25 0342 05/14/25 0510 WBC 9.43 6.35 6.94 HB 13.4 12.5 13.1 HCT 39.7 38.3 38.7 PLT 265 235 231 NA 136 140 140 K -- 4.4 4.0 CHLOR 104 103 104 CO2 19* 26 24 BUN 13 14 11 CREAT 0.54* 0.78 0.83 GLUC 120* 99 92 CA 9.0 8.8 8.7 CRP 0.8 03/04/2025 Duran Kern MD 05/16/2025 10:49 PM Normal [facility] Comprehensive metabolic 2000 panelon 05-16-2025 Albumin [Mass/Vol] 4.0 g/dL Normal 3.9-4.9 [facility] Comment on above: Order Comment: Speci men Type: SWAB Ordering Facility: [facility] Address: [address] [place] [address] Performed By: #### S APCR #### [facility] CLIA [id number] [address] [place] [address] [place] ALP [Catalytic activity/Vol] Normal [facility] Comment on above: Order Comment: Speci men Type: SWAB Ordering Facility: [facility] Address: [address] [place] [address] Result Comment: Unab le to assay due to interference from hemolysis. Suggest reorder as clinically indicated. Performed By: #### S APCR #### [facility] CLIA [id number] [address] [place] [address] [place] ALT [Catalytic activity/Vol] Normal [facility] Comment on above: Order Comment: Speci men Type: SWAB Ordering Facility: [facility] Address: [address] [place] [address] Result Comment: Unab le to assay due to interference from hemolysis. Suggest reorder as clinically indicated. Performed By: #### S APCR #### [facility] CLIA [id number] [address] [place] [address] [place] Anion gap [Moles/Vol] 13 mmol/L Normal 8-15 [facility] Comment on above: Order Comment: Speci men Type: SWAB Ordering Facility: [facility] Address: [address] [place] [address] Performed By: #### S APCR #### [facility] CLIA [id number] [address] [place] [address] [place] AST [Catalytic activity/Vol] Normal [facility] Comment on above: Order Comment: Speci men Type: SWAB Ordering Facility: [facility] Address: [address] [place] [address] Result Comment: Unab le to assay due to interference from hemolysis. Suggest reorder as clinically indicated. Performed By: #### S APCR #### [facility] CLIA [id number] [address] [place] [address] [place] Bilirubin [Mass/Vol] 0.2 mg/dL Normal 0.2-1.3 [facility] Comment on above: Order Comment: Speci men Type: SWAB Ordering Facility: [facility] Address: [address] [place] [address] Performed By: #### S APCR #### [facility] CLIA [id number] [address] [place] [address] [place] Calcium [Mass/Vol] 9.0 mg/dL Normal 8.5-10.2 [facility] Comment on above: Order Comment: Speci men Type: SWAB Ordering Facility: [facility] Address: [address] [place] [address] Performed By: #### S APCR #### [facility] CLIA [id number] [address] [place] [address] [place] Chloride [Moles/Vol] 104 mmol/L Normal 98-107 [facility] Comment on above: Order Comment: Speci men Type: SWAB Ordering Facility: [facility] Address: [address] [place] [address] Performed By: #### S APCR #### [facility] CLIA [id number] [address] [place] [address] [place] CO2 [Moles/Vol] 19 mmol/L Low 22-30 [facility] Comment on above: Order Comment: Speci men Type: SWAB Ordering Facility: [facility] Address: [address] [place] [address] Performed By: #### S APCR #### [facility] CLIA [id number] [address] [place] [address] [place] Creatinine [Mass/Vol] 0.54 mg/dL Low 0.58-0.96 [facility] Comment on above: Order Comment: Speci men Type: SWAB Ordering Facility: [facility] Address: [address] [place] [address] Performed By: #### S APCR #### [facility] CLIA [id number] [address] [place] [address] [place] Creatinine and Glomerular filtration rate.predicted panel (S/P/Bld) 124 mL/min/1.73m??? Normal >=60 [facility] Comment on above: Order Comment: Speci men Type: SWAB Ordering Facility: [facility] Address: [address] [place] [address] Result Comment: Anne-Marie mated Glomerular Filtration Rate (eGFR) is calculated using the 2020 CKD-EPI creatinine equation. This equation utilizes serum creatinine, sex, and age as parameters. The creatinine assay has traceable calibration to isotope dilution-mass spectrometry. Refer to KDIGO guidelines for clinical interpretation. In patients with unstable renal function, e.g. those with acute kidney injury, the eGFR may not accurately reflect actual GFR. Performed By: #### S APCR #### [facility] CLIA [id number] [address] [place] [address] [place] Glucose [Mass/Vol] 120 mg/dL High 74-99 [facility] Comment on above: Order Comment: Speci men Type: SWAB Ordering Facility: [facility] Address: [address] [place] [address] Result Comment: The [place] Diabetes Association (ADA) provides guidance for cutoff values for fasting glucose and random glucose. The ADA defines fasting as no caloric intake for at least 8 hours. Fasting plasma glucose results between 100 to 125 mg/dL indicate increased risk for diabetes (prediabetes). Fasting plasma glucose results greater than or equal to 126 mg/dL meet the criteria for diagnosis of diabetes. In the absence of unequivocal hyperglycemia, results should be confirmed by repeat testing. In a patient with classic symptoms of hyperglycemia or hyperglycemic crisis, random plasma glucose results greater than or equal to 200 mg/dL meet the criteria for diagnosis of diabetes. Reference: Standards of Medical Care in Diabetes 2016, [place] [employer] Association. Diabetes Care. 2016.39(Suppl 1). Performed By: #### S APCR #### [facility] CLIA [id number] [address] [place] [address] [place] Potassium [Moles/Vol] Normal [facility] Comment on above: Order Comment: Speci men Type: SWAB Ordering Facility: [facility] Address: [address] [place] [address] Result Comment: Unab le to assay due to interference from hemolysis. Suggest reorder as clinically indicated. Performed By: #### S APCR #### [facility] CLIA [id number] [address] [place] [address] [place] Protein [Mass/Vol] 6.9 g/dL Normal 6.3-8.0 [facility] Comment on above: Order Comment: Speci men Type: SWAB Ordering Facility: [facility] Address: [address] [place] [address] Performed By: #### S APCR #### [facility] CLIA [id number] [address] [place] [address] [place] Sodium [Moles/Vol] 136 mmol/L Normal 136-144 [facility] Comment on above: Order Comment: Speci men Type: SWAB Ordering Facility: [facility] Address: [address] [place] [address] Performed By: #### S APCR #### [facility] CLIA [id number] [address] [place] [address] [place] Urea nitrogen [Mass/Vol] 13 mg/dL Normal 7-21 [facility] Comment on above: Order Comment: Speci men Type: SWAB Ordering Facility: [facility] Address: [address] [place] [address] Performed By: #### S APCR #### [facility] CLIA [id number] [address] [place] [address] [place] NURSING PROGon 05-16-2025 NURSING PROG HNO ID: [id number] Author: LORETA PARKINSON, RN Service: Nursing Author Type: Registered Nurse Type: Nursing Progress Note Filed: 05/16/2025 16:08 Note Text: Other: 1445 Upon entering room to check on pt, she stated that her head was itching. I checked her over and found that she had a fine pinpoint red rash on her back and her scalp was red.The left side of her mouth was slightly swollen as well. Dr. Anglin messaged with this information. 1452 Pt c/o increased itching in her head and her lips on the left side increased in swelling as well. 1500 Dr Anglin made aware and Benadryl ordered. [address] Monterrosoema up to see pt. Head itching much improved and scalp is no longer red. Pinpoint rash much improved on her back. 1517 IV Pepcid given per order. 1530 Pt remains the same. Lips still swollen on the left side but slightly improved. Normal [facility] CBC panel Auto (Bld)on 05-15 Erythrocyte distribution width (RBC) [Ratio] 13.4 % Normal 11.5-15.0 [facility] Comment on above: Order Comment: Speci men Type: SWAB Ordering Facility: [facility] Address: [address] [place] [address] Performed By: #### S APCR #### [facility] CLIA [id number] [address] [place] [address] [place] Hematocrit (Bld) [Volume fraction] 38.3 % Normal 36.0-46.0 [facility] Comment on above: Order Comment: Speci men Type: SWAB Ordering Facility: [facility] Address: [address] [place] [address] Performed By: #### S APCR #### [facility] CLIA [id number] [address] [place] [address] [place] Hemoglobin (Bld) [Mass/Vol] 12.5 g/dL Normal 11.5-15.5 [facility] Comment on above: Order Comment: Speci men Type: SWAB Ordering Facility: [facility] Address: [address] [place] [address] Performed By: #### S APCR #### [facility] CLIA [id number] [address] [place] [address] [place] MCH (RBC) [Entitic mass] 29.3 pg Normal 26.0-34.0 [facility] Comment on above: Order Comment: Speci men Type: SWAB Ordering Facility: [facility] Address: [address] [place] [address] Performed By: #### S APCR #### [facility] CLIA [id number] [address] [place] [address] [place] MCHC (RBC) [Mass/Vol] 32.6 g/dL Normal 30.5-36.0 [facility] Comment on above: Order Comment: Speci men Type: SWAB Ordering Facility: [facility] Address: [address] [place] [address] Performed By: #### S APCR #### [facility] CLIA [id number] [address] [place] [address] [place] MCV (RBC) [Entitic vol] 89.7 fL Normal 80.0-100.0 [facility] Comment on above: Order Comment: Speci men Type: SWAB Ordering Facility: [facility] Address: [address] [place] [address] Performed By: #### S APCR #### [facility] CLIA [id number] [address] [place] [address] [place] Nucleated RBC (Bld) [#/Vol] 10*3/uL Normal <0.01 [facility] Comment on above: Order Comment: Speci men Type: SWAB Ordering Facility: [facility] Address: [address] [place] [address] Performed By: #### S APCR #### [facility] CLIA [id number] [address] [place] [address] [place] Platelet mean volume (Bld) [Entitic vol] 10.1 fL Normal 9.0-12.7 [facility] Comment on above: Order Comment: Speci men Type: SWAB Ordering Facility: [facility] Address: [address] [place] [address] Performed By: #### S APCR #### [facility] CLIA [id number] [address] [place] [address] [place] Platelets (Bld) [#/Vol] 235 10*3/uL Normal 150-400 [facility] Comment on above: Order Comment: Speci men Type: SWAB Ordering Facility: [facility] Address: [address] [place] [address] Performed By: #### S APCR #### [facility] CLIA [id number] [address] [place] [address] [place] RBC (Bld) [#/Vol] 4.27 10*6/uL Normal 3.90-5.20 [facility] Comment on above: Order Comment: Speci men Type: SWAB Ordering Facility: [facility] Address: [address] [place] [address] Performed By: #### S APCR #### [facility] CLIA [id number] [address] [place] [address] [place] WBC (Bld) [#/Vol] 6.35 10*3/uL Normal 3.70-11.00 [facility] Comment on above: Order Comment: Speci men Type: SWAB Ordering Facility: [facility] Address: [address] [place] [address] Performed By: #### S APCR #### [facility] CLIA [id number] [address] [place] [address] [place] CONSULT PROGon 05-15-2025 CONSULT PROG HNO ID: [id number] Author: DURAN KERN MD Service: Infectious Disease Author Type: Physician Type: Consult Progress Note Filed: 05/16/2025 03:33 Note Text: INFECTIOUS DISEASE CONSULT PROGRESS NOTES PATIENT NAME: Rosalva Huang ASSESSMENT AND PLAN: Left nipple infection due to piercing, has ring in place. Advised TO patient- may need ring removal. 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 IV meropenem, and daptomycin-- 05/15---dcd dapto , developed anaphylactic reaction tolerating merop with benadryl mrsa screen-neg . Left mastitis and cellulitis. iv meropenem Bipolar disorder. Transaminitis. right upper quadrant ultrasound.---hepatic steatosis 05/13--hepatitis screen.----reviewed/ neg . bipolar disorder on meds d/w pt and n staff interval hpi----- reports lt breast is still hurting, pt has removed rings from both nipples -dcd dapto today after-,pt developed anaphylactic reaction tolerating merop with benadryl OK to d/s after completing 7 days of meropenem advised pt to see immunology/ statistical geneticist for desensitization atleast to [facility] . pt agrees . Transaminitis. likely due to ---hepatic steatosis hepatitis screen.---reviewed-neg MEDICATIONS: Current Facility-Administered Medications Medication Dose Route Frequency NaCl 0.9% iv flush bag 20 mL INTRAVENOUS PRN ondansetron 4 mg tab(s) (ZOFRAN) 4 mg ORAL q 6 H PRN Or ondansetron (PF) 4 mg injection (ZOFRAN) 4 mg INTRAVENOUS q 6 H PRN clonazePAM 1 mg tab(s) (KlonoPIN) 1 mg ORAL DAILY PRN divalproex ER 1,000 mg tab(s) (DEPAKOTE ER) 1,000 mg ORAL DAILY escitalopram oxalate 20 mg tab(s) (LEXAPRO) 20 mg ORAL DAILY lamoTRIgine 100 mg tab(s) (LaMICtal) 100 mg ORAL AT BEDTIME meropenem 1 g in NaCl 0.9% 100 mL Vial-Bag (MERREM) 1 g INTRAVENOUS q 8 H risperiDONE (RisperDAL) tab(s) 3 mg 3 mg ORAL AT BEDTIME diphenhydrAMINE 50 mg injection (BENADRYL) 50 mg INTRAVENOUS q 6 H PRN DAPTOmycin 400 mg in NaCl 0.9% 50 mL (CUBICIN) 6 mg/kg/dose (Adjusted) INTRAVENOUS q 24 HR acetaminophen 650 mg tab(s) (TYLENOL) 650 mg ORAL q 6 H PRN oxyCODONE IR 5 mg tab(s) (ROXICODONE) 5 mg ORAL q 6 H PRN enoxaparin 40 mg injection (LOVENOX) 40 mg SUBCUTANEOUS q 24 HR OBJECTIVE PHYSICAL EXAM: BP 100/56 Pulse 77 Temp (Src) 98.1 (Oral) Resp 16 Ht 5' 4" (1.63m) Wt 195 lb (88.5kg) SpO2 93% BMI 33.46 kg/(m2). Skin: There is no evident rash. Neck: Supple. Oropharynx clear. No evidence of thrush. No cervical lymphadenopathy. Chest: Decreased air entry, bilateral bases. Few rales heard. Cardiovascular: S1, S2 normal. No murmur, no gallop heard. Abdomen: Soft, nontender. No organomegaly. Bilateral Breasts: The patient has rings in bilateral nipples. Left nipple is tender. Drainage is present. Culture has been obtained. The patient has erythema on the left breast, tender consistent with mastitis. No breast fold rash. No fungal rash. Abdomen: Soft, nontender. No organomegaly. Bowel sounds present. Extremities: Trace edema is present. The patient is moving all 4 extremities. Diagnostic tests reviewed for today's visit: Most recent labs and compared Most recent micro/ EKG Most recent imaging and compared Recent Labs 05/15/25 0342 05/14/25 0510 05/13/25 0543 WBC 6.35 6.94 8.55 HB 12.5 13.1 12.8 HCT 38.3 38.7 38.1 PLT 235 231 241 NA 140 140 141 K 4.4 4.0 4.7 CHLOR 103 104 109* CO2 26 24 22 BUN 14 11 16 CREAT 0.78 0.83 0.85 GLUC 99 92 84 CA 8.8 8.7 8.6 CRP 0.8 03/04/2025 Duran Kern MD 05/15/2025 8:46 PM Normal [facility] Comprehensive metabolic 2000 panelon 05-15-2025 Albumin [Mass/Vol] 3.7 g/dL Low 3.9-4.9 [facility] Comment on above: Order Comment: Speci men Type: BLOOD SPECIMEN Ordering Facility: [facility] Address: [address] [place] [address] Performed By: #### 4 091-5 #### [facility] CLIA [id number] [address] [place] [address] [place] ALP [Catalytic activity/Vol] 95 U/L Normal 34-123 [facility] Comment on above: Order Comment: Speci men Type: BLOOD SPECIMEN Ordering Facility: [facility] Address: [address] [place] [address] Performed By: #### 4 091-5 #### [facility] CLIA [id number] [address] [place] [address] [place] ALT [Catalytic activity/Vol] 39 U/L High 7-38 [facility] Comment on above: Order Comment: Speci men Type: BLOOD SPECIMEN Ordering Facility: [facility] Address: [address] [place] [address] Performed By: #### 4 091-5 #### [facility] CLIA [id number] [address] [place], [place] [address] [place] Anion gap [Moles/Vol] 11 mmol/L Normal 8-15 [facility] Comment on above: Order Comment: Speci men Type: BLOOD SPECIMEN Ordering Facility: [facility] Address: [address] [place] [address] Performed By: #### 4 091-5 #### [facility] CLIA [id number] [address] [place] [address] [place] AST [Catalytic activity/Vol] 21 U/L Normal 13-35 [facility] Comment on above: Order Comment: Speci men Type: BLOOD SPECIMEN Ordering Facility: [facility] Address: [address] [place] [address] Performed By: #### 4 091-5 #### [facility] CLIA [id number] [address] [place] [address] [place] Bilirubin [Mass/Vol] 0.3 mg/dL Normal 0.2-1.3 [facility] Comment on above: Order Comment: Speci men Type: BLOOD SPECIMEN Ordering Facility: [facility] Address: [address] [place] [address] Performed By: #### 4 091-5 #### [facility] CLIA [id number] [address] [place] [address] [place] Calcium [Mass/Vol] 8.8 mg/dL Normal 8.5-10.2 [facility] Comment on above: Order Comment: Speci men Type: BLOOD SPECIMEN Ordering Facility: [facility] Address: [address] [place] [address] Performed By: #### 4 091-5 #### [facility] CLIA [id number] [address] [place] [address] [place] Chloride [Moles/Vol] 103 mmol/L Normal 98-107 [facility] Comment on above: Order Comment: Speci men Type: BLOOD SPECIMEN Ordering Facility: [facility] Address: [address] [place] [address] Performed By: #### 4 091-5 #### [facility] CLIA [id number] [address] [place], [place] [address] [place] CO2 [Moles/Vol] 26 mmol/L Normal 22-30 [facility] Comment on above: Order Comment: Mookie roberts Type: BLOOD SPECIMEN Ordering Facility: [facility] Address: [address] [place] [address] Performed By: #### 4 091-5 #### [facility] CLIA [id number] [address] [place] [address] [place] Creatinine [Mass/Vol] 0.78 mg/dL Normal 0.58-0.96 [facility] Comment on above: Order Comment: Mookie men Type: BLOOD SPECIMEN Ordering Facility: [facility] Address: [address] [place] [address] Performed By: #### 4 091-5 #### [facility] CLIA [id number] [address] [place] [address] [place] Creatinine and Glomerular filtration rate.predicted panel (S/P/Bld) 102 mL/min/1.73m??? Normal >=60 [facility] Comment on above: Order Comment: Mookie roberts Type: BLOOD SPECIMEN Ordering Facility: [facility] Address: [address] [place] [address] Result Comment: Anne-Marie mated Glomerular Filtration Rate (eGFR) is calculated using the 2020 CKD-EPI creatinine equation. This equation utilizes serum creatinine, sex, and age as parameters. The creatinine assay has traceable calibration to isotope dilution-mass spectrometry. Refer to KDIGO guidelines for clinical interpretation. In patients with unstable renal function, e.g. those with acute kidney injury, the eGFR may not accurately reflect actual GFR. Performed By: #### 4 091-5 #### [facility] CLIA [id number] [address] [place] [address] [place] Glucose [Mass/Vol] 99 mg/dL Normal 74-99 [facility] Comment on above: Order Comment: Mookie alejandra Type: BLOOD SPECIMEN Ordering Facility: [facility] Address: [address] [place] [address] Result Comment: The [place] Diabetes Association (ADA) provides guidance for cutoff values for fasting glucose and random glucose. The ADA defines fasting as no caloric intake for at least 8 hours. Fasting plasma glucose results between 100 to 125 mg/dL indicate increased risk for diabetes (prediabetes). Fasting plasma glucose results greater than or equal to 126 mg/dL meet the criteria for diagnosis of diabetes. In the absence of unequivocal hyperglycemia, results should be confirmed by repeat testing. In a patient with classic symptoms of hyperglycemia or hyperglycemic crisis, random plasma glucose results greater than or equal to 200 mg/dL meet the criteria for diagnosis of diabetes. Reference: Standards of Medical Care in Diabetes 2016, [place] [employer] Association. Diabetes Care. 2016.39(Suppl 1). Performed By: #### 4 091-5 #### [facility] CLIA [id number] [address] [place] [address] [place] Potassium [Moles/Vol] 4.4 mmol/L Normal 3.7-5.1 [facility] Comment on above: Order Comment: Mookie roberts Type: BLOOD SPECIMEN Ordering Facility: [facility] Address: [address] [place] [address] Performed By: #### 4 091-5 #### [facility] CLIA [id number] [address] [place] [address] [place] Protein [Mass/Vol] 6.0 g/dL Low 6.3-8.0 [facility] Comment on above: Order Comment: Mookie roberts Type: BLOOD SPECIMEN Ordering Facility: [facility] Address: [address] [place] [address] Performed By: #### 4 091-5 #### [facility] CLIA [id number] [address] [place] [address] [place] Sodium [Moles/Vol] 140 mmol/L Normal 136-144 [facility] Comment on above: Order Comment: Darvini men Type: BLOOD SPECIMEN Ordering Facility: [facility] Address: [address] [place] [address] Performed By: #### 4 091-5 #### [facility] CLIA [id number] [address] [place] [address] [place] Urea nitrogen [Mass/Vol] 14 mg/dL Normal 7-21 [facility] Comment on above: Order Comment: Speci men Type: BLOOD SPECIMEN Ordering Facility: [facility] Address: [address] [place] [address] Performed By: #### 4 091-5 #### [facility] CLIA [id number] OF [facility] MEDICAL EMERon 05-15-2025 MEDICAL RAQEUL HNO ID: [id number] Author: JOSE FERRERA MD Service: Critical Care Author Type: Resident Type: Chg in Clinical Condition Filed: 05/15/2025 13:59 Note Text: CHANGE IN CLINICAL CONDITION SERVICE DATE: 05/15/2025 ADMISSION DATE: 05/11/2025 SERVICE TIME: 13:20 Code Status: Code Status: Full Code CHANGE DETAILS REASON for Call: Allergic reaction AMET / Rapid Response Called: Yes Assessment and Plan: 35-year-old female with a past medical history of bipolar disorder, multiple antibiotic allergies who presented to on 05/11 with concerns for mastitis AMET called for concerns of allergic reaction. On my arrival to bedside, patient resting comfortably on RA saturating 96%, no work of breathing, no stridor on exam. Lung sounds clear bilaterally. Mild angioedema noted around lips and tongue. Primary team present at bedside. Per RN, patient had just completed her daptomycin infusion when she started to report hives and itching. She also endorsed mild difficulty swallowing but denied chest tightness, shortness of breath. IV solumedrol administered, IV bendaryl, and IM epinephrine. Vitals remained stable throughout her course, mild angioedema noted around her lips and tongue. Discussed with MICU technician terminal and repeater regarding potential transfer to MICU for airway watch who recommended re-assessing the patient in 1 hour to determine need for MICU admission. Primary team updated with plan, RN updated. AMET called off, patient in stable condition. Will re-evaluate the patient in 1 hour to determine need for MICU admission. PHYSICAL EXAM: BP 120/66 Pulse 103 Temp 36.8 ?C (98.2 ?F) (Oral) Resp 16 Ht 162.6 cm (5' 4") Wt 88.5 kg (195 lb) LMP (LMP Unknown) SpO2 95% BMI 33.47 kg/m? SIGNATURE: Jose Ferrera MD PATIENT NAME: Rosalva Huang DATE: May 15, 2025 TIME: 1:53 PM Normal [facility] NURSING PROGon 05-15-2025 NURSING PROG HNO ID: [id number] Author: TAYLOR MONTANA, RN Service: Nursing Author Type: Registered Nurse Type: Nursing Progress Note Filed: 05/15/2025 14:36 Note Text: Event(s) / Intervention Note: PATIENT NAME: Rosalva Huang Patient Location: [place] [address] Room: [place] [address] The patient was observed having the following problems: edema in lips and face, itching arms and chest , rash arms and chest, and throat tightness. The time of the event occurred at: 1305. The following intervention(s) were initiated: Dr. Anglin and Jeremie Cunningham notified and Dr. Anglin coming to bedside. Requested orders for reaction treatment such as pepcid and IV steroid. Pt states these have been successful treatments of her reactions in the past. After the initiated interventions, the following observation(s) were made: p Sx began after daptomycin infusion was near completion. AMET initiated at [address] Anglin at bedside. See AMET documentation. At completion VSS, pt remaining on unit with close monitoring. 1435 VSS and pt expresses resolution of sx. No itching, no difficult swallowing, no feeling of tightness in throat. 96% on room air. Normal [facility] Basic metabolic 2000 panelon 05-14-2025 Anion gap [Moles/Vol] 12 mmol/L Normal 8-15 [facility] Comment on above: Order Comment: Speci men Type: BLOOD SPECIMEN Ordering Facility: [facility] Address: [address] [place] [address] Performed By: #### 4 091-5 #### [facility] CLIA [id number] [address] [place] [address] [place] Calcium [Mass/Vol] 8.7 mg/dL Normal 8.5-10.2 [facility] Comment on above: Order Comment: Speci men Type: BLOOD SPECIMEN Ordering Facility: [facility] Address: [address] [place] [address] Performed By: #### 4 091-5 #### [facility] CLIA [id number] [address] [place] [address] [place] Chloride [Moles/Vol] 104 mmol/L Normal 98-107 [facility] Comment on above: Order Comment: Speci men Type: BLOOD SPECIMEN Ordering Facility: [facility] Address: [address] [place] [address] Performed By: #### 4 091-5 #### [facility] CLIA [id number] [address] [place] [address] [place] CO2 [Moles/Vol] 24 mmol/L Normal 22-30 [facility] Comment on above: Order Comment: Speci men Type: BLOOD SPECIMEN Ordering Facility: [facility] Address: [address] [place] [address] Performed By: #### 4 091-5 #### [facility] CLIA [id number] [address] [place] [address] [place] Creatinine [Mass/Vol] 0.83 mg/dL Normal 0.58-0.96 [facility] Comment on above: Order Comment: Speci men Type: BLOOD SPECIMEN Ordering Facility: [facility] Address: [address] [place] [address] Performed By: #### 4 091-5 #### [facility] CLIA [id number] [address] [place] [address] [place] Creatinine and Glomerular filtration rate.predicted panel (S/P/Bld) 95 mL/min/1.73m??? Normal >=60 [facility] Comment on above: Order Comment: Speci men Type: BLOOD SPECIMEN Ordering Facility: [facility] Address: [address] [place] [address] Result Comment: Anne-Marie mated Glomerular Filtration Rate (eGFR) is calculated using the 2020 CKD-EPI creatinine equation. This equation utilizes serum creatinine, sex, and age as parameters. The creatinine assay has traceable calibration to isotope dilution-mass spectrometry. Refer to KDIGO guidelines for clinical interpretation. In patients with unstable renal function, e.g. those with acute kidney injury, the eGFR may not accurately reflect actual GFR. Performed By: #### 4 091-5 #### [facility] CLIA [id number] [address] [place] [address] [place] Glucose [Mass/Vol] 92 mg/dL Normal 74-99 [facility] Comment on above: Order Comment: Mookie roberts Type: BLOOD SPECIMEN Ordering Facility: [facility] Address: [address] [place] [address] Result Comment: The [place] Diabetes Association (ADA) provides guidance for cutoff values for fasting glucose and random glucose. The ADA defines fasting as no caloric intake for at least 8 hours. Fasting plasma glucose results between 100 to 125 mg/dL indicate increased risk for diabetes (prediabetes). Fasting plasma glucose results greater than or equal to 126 mg/dL meet the criteria for diagnosis of diabetes. In the absence of unequivocal hyperglycemia, results should be confirmed by repeat testing. In a patient with classic symptoms of hyperglycemia or hyperglycemic crisis, random plasma glucose results greater than or equal to 200 mg/dL meet the criteria for diagnosis of diabetes. Reference: Standards of Medical Care in Diabetes 2016, [place] [employer]. Diabetes Care. 2016.39(Suppl 1). Performed By: #### 4 091-5 #### [facility] CLIA [id number] [address] [place] [address] [place] Potassium [Moles/Vol] 4.0 mmol/L Normal 3.7-5.1 [facility] Comment on above: Order Comment: Mookie roberts Type: BLOOD SPECIMEN Ordering Facility: [facility] Address: [address] [place] [address] Performed By: #### 4 091-5 #### [facility] CLIA [id number] [address] [place] [address] [place] Sodium [Moles/Vol] 140 mmol/L Normal 136-144 [facility] Comment on above: Order Comment: Mookie roberts Type: BLOOD SPECIMEN Ordering Facility: [facility] Address: [address] [place] [address] Performed By: #### 4 091-5 #### [facility] CLIA [id number] [address] [place] [address] [place] Urea nitrogen [Mass/Vol] 11 mg/dL Normal 7-21 [facility] Comment on above: Order Comment: Speci men Type: BLOOD SPECIMEN Ordering Facility: [facility] Address: [address] [place] [address] Performed By: #### 4 091-5 #### [facility] CLIA [id number] [address] [place] [address] [place] CBC panel Auto (Bld)on 05-14 Erythrocyte distribution width (RBC) [Ratio] 13.4 % Normal 11.5-15.0 [facility] Comment on above: Order Comment: Speci men Type: SWAB Ordering Facility: [facility] Address: [address] [place] [address] Performed By: #### S APCR #### [facility] CLIA [id number] [address] [place] [address] [place] Hematocrit (Bld) [Volume fraction] 38.7 % Normal 36.0-46.0 [facility] Comment on above: Order Comment: Speci men Type: SWAB Ordering Facility: [facility] Address: [address] [place] [address] Performed By: #### S APCR #### [facility] CLIA [id number] [address] [place] [address] [place] Hemoglobin (Bld) [Mass/Vol] 13.1 g/dL Normal 11.5-15.5 [facility] Comment on above: Order Comment: Speci men Type: SWAB Ordering Facility: [facility] Address: [address] [place] [address] Performed By: #### S APCR #### [facility] CLIA [id number] [address] [place] [address] [place] MCH (RBC) [Entitic mass] 29.8 pg Normal 26.0-34.0 [facility] Comment on above: Order Comment: Speci men Type: SWAB [facility]ing Facility: [facility] Address: [address] [place] [address] Performed By: #### S APCR #### [facility] CLIA [id number] [address] [place] [address] [place] MCHC (RBC) [Mass/Vol] 33.9 g/dL Normal 30.5-36.0 [facility] Comment on above: Order Comment: Speci men Type: SWAB Ordering Facility: [facility] Address: [address] [place] [address] Performed By: #### S APCR #### [facility] CLIA [id number] [address] [place] [address] [place] MCV (RBC) [Entitic vol] 88.2 fL Normal 80.0-100.0 [facility] Comment on above: Order Comment: Speci men Type: SWAB Ordering Facility: [facility] Address: [address] [place] [address] Performed By: #### S APCR #### [facility] CLIA [id number] [address] [place] [address] [place] Nucleated RBC (Bld) [#/Vol] 10*3/uL Normal <0.01 [facility] Comment on above: Order Comment: Speci men Type: SWAB Ordering Facility: [facility] Address: [address] [place] [address] Performed By: #### S APCR #### [facility] CLIA [id number] [address] [place] [address] [place] Platelet mean volume (Bld) [Entitic vol] 9.8 fL Normal 9.0-12.7 [facility] Comment on above: Order Comment: Speci men Type: SWAB Ordering Facility: [facility] Address: [address] [place] [address] Performed By: #### S APCR #### [facility] CLIA [id number] [address] [place] [address] [place] Platelets (Bld) [#/Vol] 231 10*3/uL Normal 150-400 [facility] Comment on above: Order Comment: Speci men Type: SWAB Ordering Facility: [facility] Address: [address] [place] [address] Performed By: #### S APCR #### [facility] CLIA [id number] [address] [place] [address] [place] RBC (Bld) [#/Vol] 4.39 10*6/uL Normal 3.90-5.20 [facility] Comment on above: Order Comment: Speci men Type: SWAB [facility]ing Facility: [facility] Address: [address] [place] [address] Performed By: #### S APCR #### [facility] CLIA [id number] [address] [place] [address] [place] WBC (Bld) [#/Vol] 6.94 10*3/uL Normal 3.70-11.00 [facility] Comment on above: Order Comment: Speci men Type: SWAB Ordering Facility: [facility] Address: [address] [place] [address] Performed By: #### S APCR #### [facility] CLIA [id number] [address] [place] [address] OF [facility] CONSULT PROGon 05-14-2025 CONSULT PROG HNO ID: [id number] Author: DURAN KERN MD Service: Infectious Disease Author Type: Physician Type: Consult Progress Note Filed: 05/15/2025 02:17 Note Text: INFECTIOUS DISEASE CONSULT PROGRESS NOTES PATIENT NAME: Rosalva Huang SERVICE DATE: 05/14/2025 ASSESSMENT AND PLAN: Left nipple infection due to piercing, has ring in place. Advised TO patient- may need ring removal. 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 IV meropenem, and daptomycin--- tolerating so far improving dc iv ab after 5 total days on 05/16 mrsa screen-neg . Left mastitis and cellulitis. IV daptomycin and iv meropenem Bipolar disorder. Transaminitis. right upper quadrant ultrasound.---hepatic steatosis 05/13--hepatitis screen.----reviewed/ neg . bipolar disorder on meds d/w pt and n staff interval hpi---slowly improving afebrile, report left breast is still hurting and cannot take any po antibiotics lt breast cellulitis is improving, mastitis present no abscess by us rec--complete iv ab for 5 days and dc Transaminitis. likely due to ---hepatic steatosis hepatitis screen.---reviewed-neg MEDICATIONS: Current Facility-Administered Medications Medication Dose Route Frequency NaCl 0.9% iv flush bag 20 mL INTRAVENOUS PRN ondansetron 4 mg tab(s) (ZOFRAN) 4 mg ORAL q 6 H PRN Or ondansetron (PF) 4 mg injection (ZOFRAN) 4 mg INTRAVENOUS q 6 H PRN clonazePAM 1 mg tab(s) (KlonoPIN) 1 mg ORAL DAILY PRN divalproex ER 1,000 mg tab(s) (DEPAKOTE ER) 1,000 mg ORAL DAILY escitalopram oxalate 20 mg tab(s) (LEXAPRO) 20 mg ORAL DAILY lamoTRIgine 100 mg tab(s) (LaMICtal) 100 mg ORAL AT BEDTIME meropenem 1 g in NaCl 0.9% 100 mL Vial-Bag (MERREM) 1 g INTRAVENOUS q 8 H risperiDONE (RisperDAL) tab(s) 3 mg 3 mg ORAL AT BEDTIME diphenhydrAMINE 50 mg injection (BENADRYL) 50 mg INTRAVENOUS q 6 H PRN DAPTOmycin 400 mg in NaCl 0.9% 50 mL (CUBICIN) 6 mg/kg/dose (Adjusted) INTRAVENOUS q 24 HR oxyCODONE IR 5 mg tab(s) (ROXICODONE) 5 mg ORAL q 6 H PRN acetaminophen 650 mg tab(s) (TYLENOL) 650 mg ORAL q 6 H PRN oxyCODONE IR 10 mg tab(s) (ROXICODONE) 10 mg ORAL q 6 H PRN metoclopramide HCl 5 mg (REGLAN) 5 mg ORAL q 8 H PRN OBJECTIVE PHYSICAL EXAM: BP 116/60 Pulse 77 Temp (Src) 98.1 (Oral) Resp 16 Ht 5' 4" (1.63m) Wt 195 lb (88.5kg) SpO2 94% BMI 33.46 kg/(m2). O2 Therapy: Room Air Skin: There is no evident rash. Neck: Supple. Oropharynx clear. No evidence of thrush. No cervical lymphadenopathy. Chest: Decreased air entry, bilateral bases. Few rales heard. Cardiovascular: S1, S2 normal. No murmur, no gallop heard. Abdomen: Soft, nontender. No organomegaly. Bilateral Breasts: The patient has rings in bilateral nipples. Left nipple is tender. Drainage is present. Culture has been obtained. The patient has erythema on the left breast, tender consistent with mastitis. No breast fold rash. No fungal rash. Abdomen: Soft, nontender. No organomegaly. Bowel sounds present. Extremities: Trace edema is present. The patient is moving all 4 extremities. Diagnostic tests reviewed for today's visit: Most recent labs and compared Most recent micro/ EKG Most recent imaging and compared CRP 0.8 03/04/2025 Duran Kern MD 05/14/2025 8:55 PM Normal [facility] ECG COMPLETEon 05-14-2025 ECG COMPLETE Ventricular Rate : 7 1 BPM Atrial Rate : 71 BPM P-R Interval : 144 ms QRS Duration : 79 ms Q-T Interval : 385 ms QTC Calculation(Bazett) : 419 ms Calculated P Farwell : 1 degrees Calculated R Farwell : 31 degrees Calculated T Farwell : 35 degrees Sinus rhythm Normal ECG Confirmed by JANESSA STRICKLAND MD ([id number]) on 05/15/2025 11:43:38 AM NAME : ROSALVA HUANG PID : [id number] : 1990 Gender : Female Race : ORD : [id number] Procedure Date : May 14 2025 01:15:33 Edit Date : May 15 2025 11:43:39 Diagnosis: Sinus rhythm Normal ECG Confirmed by JANESSA STRICKLAND MD ([id number]) on 05/15/2025 11:43:38 AM Test Reason : Check QT Location : 400 : FVEKG PK1B Overread By : JANESSA STRICKLAND MD Edited By : JANESSA STRICKLAND MD Referred By : LEBRON GUDINO Acquired by : [id number], Normal [facility] Basic metabolic 2000 panelon 05-13-2025 Anion gap [Moles/Vol] 10 mmol/L Normal 8-15 [facility] Comment on above: Order Comment: Speci men Type: BLOOD SPECIMENOrdering Facility: [facility] Address: [address] [place] [address] Performed By: #### 2 4321-2 ####[facility] [id number] [place] [id number] [place] Calcium [Mass/Vol] 8.6 mg/dL Normal 8.5-10.2 [facility] Comment on above: Order Comment: Speci men Type: BLOOD SPECIMENOrdering Facility: [facility] Address: [address] [place] [address] Performed By: #### 2 4321-2 ####[facility]ORYCLIA [id number] [place] [id number] [place] Chloride [Moles/Vol] 109 mmol/L High 98-107 [facility] Comment on above: Order Comment: Speci men Type: BLOOD SPECIMENOrdering Facility: [facility] Address: [address] [place] [address] Performed By: #### 2 4321-2 ####[facility]ORYCLIA [id number] [place] [id number] [place] CO2 [Moles/Vol] 22 mmol/L Normal 22-30 [facility] Comment on above: Order Comment: Speci men Type: BLOOD SPECIMENOrdering Facility: [facility] Address: [address] [place] [address] Performed By: #### 2 4321-2 ####[facility]ORYCLIA [id number] [place] [id number] [place] Creatinine [Mass/Vol] 0.85 mg/dL Normal 0.58-0.96 [facility] Comment on above: Order Comment: Speci men Type: BLOOD SPECIMENOrdering Facility: [facility] Address: [address] [place] [address] Performed By: #### 2 4321-2 ####[facility] [id number] [place] [id number] [place] Creatinine and Glomerular filtration rate.predicted panel (S/P/Bld) 92 mL/min/1.73m??? Normal >=60 [facility] Comment on above: Order Comment: Mookie roberts Type: BLOOD SPECIMENOrdering Facility: [facility] Address: [address] [place] [address] Result Comment: Anne-Marie mated Glomerular Filtration Rate (eGFR) is calculated using the 2020 CKD-EPI creatinine equation. This equation utilizes serum creatinine, sex, and age as parameters. The creatinine assay has traceable calibration to isotope dilution-mass spectrometry. Refer to KDIGO guidelines for clinical interpretation. In patients with unstable renal function, e.g. those with acute kidney injury, the eGFR may not accurately reflect actual GFR. Performed By: #### 2 4321-2 ####[facility]ORYCLIA [id number] [place] [address] [place] Glucose [Mass/Vol] 84 mg/dL Normal 74-99 [facility] Comment on above: Order Comment: Mookie roberts Type: BLOOD SPECIMENOrdering Facility: [facility] Address: [address] [place] [address] Result Comment: The [place] Diabetes Association (ADA) provides guidance for cutoff values for fasting glucose and random glucose. The ADA defines fasting as no caloric intake for at least 8 hours. Fasting plasma glucose results between 100 to 125 mg/dL indicate increased risk for diabetes (prediabetes). Fasting plasma glucose results greater than or equal to 126 mg/dL meet the criteria for diagnosis of diabetes. In the absence of unequivocal hyperglycemia, results should be confirmed by repeat testing. In a patient with classic symptoms of hyperglycemia or hyperglycemic crisis, random plasma glucose results greater than or equal to 200 mg/dL meet the criteria for diagnosis of diabetes. Reference: Standards of Medical Care in Diabetes 2016, [place] [employer] Association. Diabetes Care. 2016.39(Suppl 1). Performed By: #### 2 4321-2 ####[facility]ORYCLIA [id number] [place] [id number] [place] Potassium [Moles/Vol] 4.7 mmol/L Normal 3.7-5.1 [facility] Comment on above: Order Comment: Mookie roberts Type: BLOOD SPECIMENOrdering Facility: [facility] Address: [address] [place] [address] Performed By: #### 2 4321-2 ####[facility]ATORYCLIA [id number] [place] [id number] [place] Sodium [Moles/Vol] 141 mmol/L Normal 136-144 [facility] Comment on above: Order Comment: Speci men Type: BLOOD SPECIMENOrdering Facility: [facility] Address: [address] [place] [address] Performed By: #### 2 4321-2 ####[facility]ATORYCLIA [id number] [place] [id number] [place] Urea nitrogen [Mass/Vol] 16 mg/dL Normal 7-21 [facility] Comment on above: Order Comment: Speci men Type: BLOOD SPECIMENOrdering Facility: [facility] Address: [address] [place] [address] Performed By: #### 2 4321-2 ####[facility]ORYCLIA [id number] [place] [id number] [place] CBC panel Auto (Bld)on 05-13 Erythrocyte distribution width (RBC) [Ratio] 13.7 % Normal 11.5-15.0 [facility] Comment on above: Order Comment: Speci men Type: BLOOD SPECIMENOrdering Facility: [facility] Address: [address] [place] [address] Performed By: #### 5 8410-2 ####[facility]ORYCLIA [id number] [address] [place] Hematocrit (Bld) [Volume fraction] 38.1 % Normal 36.0-46.0 [facility] Comment on above: Order Comment: Speci men Type: BLOOD SPECIMENOrdering Facility: [facility] Address: [address] [place] [address] Performed By: #### 5 8410-2 ####[facility]ATORYCLIA [id number] [place] [address] [place] Hemoglobin (Bld) [Mass/Vol] 12.8 g/dL Normal 11.5-15.5 [facility] Comment on above: Order Comment: Speci men Type: BLOOD SPECIMENOrdering Facility: [facility] Address: [address] [place] [address] Performed By: #### 5 8410-2 ####[facility]ORYCLIA [id number] [address] MCH (RBC) [Entitic mass] 30.3 pg Normal 26.0-34.0 [facility] Comment on above: Order Comment: Speci men Type: BLOOD SPECIMENOrdering Facility: [facility] Address: [address] [place] [address] Performed By: #### 5 8410-2 ####[facility]ORYCLIA [id number] [address] MCHC (RBC) [Mass/Vol] 33.6 g/dL Normal 30.5-36.0 [facility] Comment on above: Order Comment: Speci men Type: BLOOD SPECIMENOrdering Facility: [facility] Address: [address] [place] [address] Performed By: #### 5 8410-2 ####[facility]ORYCLIA [id number] [address] [place] MCV (RBC) [Entitic vol] 90.1 fL Normal 80.0-100.0 [facility] Comment on above: Order Comment: Speci men Type: BLOOD SPECIMENOrdering Facility: [facility] Address: [address] [place] [address] Performed By: #### 5 8410-2 ####[facility]ORYCLIA [id number] [address] [place] Nucleated RBC (Bld) [#/Vol] 10*3/uL Normal <0.01 [facility] Comment on above: Order Comment: Speci men Type: BLOOD SPECIMENOrdering Facility: [facility] Address: [address] [place] [address] Performed By: #### 5 8410-2 ####[facility]ORYCLIA [id number] [address] [place] Platelet mean volume (Bld) [Entitic vol] 10.4 fL Normal 9.0-12.7 [facility] Comment on above: Order Comment: Speci men Type: BLOOD SPECIMENOrdering Facility: [facility] Address: [address] [place] [address] Performed By: #### 5 8410-2 ####[facility]ORYCLIA [id number] [place] [address] [place] Platelets (Bld) [#/Vol] 241 10*3/uL Normal 150-400 [facility] Comment on above: Order Comment: Speci men Type: BLOOD SPECIMENOrdering Facility: [facility] Address: [address] [place] [address] Performed By: #### 5 8410-2 ####[facility]ORYCLIA [id number] [place] [address] [place] RBC (Bld) [#/Vol] 4.23 10*6/uL Normal 3.90-5.20 [facility] Comment on above: Order Comment: Speci men Type: BLOOD SPECIMENOrdering Facility: [facility] Address: [address] [place] [address] Performed By: #### 5 8410-2 ####[facility]ORYCLIA [id number] [place] [address] [place] WBC (Bld) [#/Vol] 8.55 10*3/uL Normal 3.70-11.00 [facility] Comment on above: Order Comment: Speci men Type: BLOOD SPECIMENOrdering Facility: [facility] Address: [address] [place] [address] Performed By: #### 5 8410-2 ####[facility]ATORYCLIA [id number] [address] CONSULT PROGon 05-13-2025 CONSULT PROG HNO ID: [id number] Author: DURAN KERN MD Service: Infectious Disease Author Type: Physician Type: Consult Progress Note Filed: 05/14/2025 03:51 Note Text: INFECTIOUS DISEASE CONSULT PROGRESS NOTES PATIENT NAME: Rosalva Huang SERVICE DATE: 05/13/2025 ASSESSMENT AND PLAN: Left nipple infection due to piercing, has ring in place. Advised TO patient- may need ring removal. 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 IV meropenem, and daptomycin--- tolerating so far mrsa screen-neg . Left mastitis and cellulitis. IV daptomycin and iv meropenem Bipolar disorder. Transaminitis. right upper quadrant ultrasound.---hepatic steatosis 05/13--hepatitis screen.----reviewed/ neg . bipolar disorder on meds d/w pt and n staff interval hpi---afebrile, report breast is still hurting and cannot take any po antibiotics, follow tomorrow nipple d/s cx- lt breast cellulitis is improving, mastitis present no abscess by us Transaminitis. likely due to ---hepatic steatosis hepatitis screen.---reviewed-neg MEDICATIONS: Current Facility-Administered Medications Medication Dose Route Frequency NaCl 0.9% iv flush bag 20 mL INTRAVENOUS PRN ondansetron 4 mg tab(s) (ZOFRAN) 4 mg ORAL q 6 H PRN Or ondansetron (PF) 4 mg injection (ZOFRAN) 4 mg INTRAVENOUS q 6 H PRN clonazePAM 1 mg tab(s) (KlonoPIN) 1 mg ORAL DAILY PRN divalproex ER 1,000 mg tab(s) (DEPAKOTE ER) 1,000 mg ORAL DAILY escitalopram oxalate 20 mg tab(s) (LEXAPRO) 20 mg ORAL DAILY lamoTRIgine 100 mg tab(s) (LaMICtal) 100 mg ORAL AT BEDTIME meropenem 1 g in NaCl 0.9% 100 mL Vial-Bag (MERREM) 1 g INTRAVENOUS q 8 H risperiDONE (RisperDAL) tab(s) 3 mg 3 mg ORAL AT BEDTIME diphenhydrAMINE 50 mg injection (BENADRYL) 50 mg INTRAVENOUS q 6 H PRN DAPTOmycin 400 mg in NaCl 0.9% 50 mL (CUBICIN) 6 mg/kg/dose (Adjusted) INTRAVENOUS q 24 HR oxyCODONE IR 5 mg tab(s) (ROXICODONE) 5 mg ORAL q 6 H PRN acetaminophen 650 mg tab(s) (TYLENOL) 650 mg ORAL q 6 H PRN oxyCODONE IR 10 mg tab(s) (ROXICODONE) 10 mg ORAL q 6 H PRN OBJECTIVE PHYSICAL EXAM: BP 116/69 Pulse 81 Temp (Src) 97.8 (Oral) Resp 18 Ht 5' 4" (1.63m) Wt 195 lb (88.5kg) SpO2 97% BMI 33.46 kg/(m2). O2 Therapy: Room Air Skin: There is no evident rash. Neck: Supple. Oropharynx clear. No evidence of thrush. No cervical lymphadenopathy. Chest: Decreased air entry, bilateral bases. Few rales heard. Cardiovascular: S1, S2 normal. No murmur, no gallop heard. Abdomen: Soft, nontender. No organomegaly. Bilateral Breasts: The patient has rings in bilateral nipples. Left nipple is tender. Drainage is present. Culture has been obtained. The patient has erythema on the left breast, tender consistent with mastitis. No breast fold rash. No fungal rash. Abdomen: Soft, nontender. No organomegaly. Bowel sounds present. Extremities: Trace edema is present. The patient is moving all 4 extremities. Diagnostic tests reviewed for today's visit: Most recent labs and compared Most recent micro/ EKG Most recent imaging and compared Recent Labs 05/13/25 0543 05/12/25 0431 05/11/25 1606 WBC 8.55 5.90 7.53 HB 12.8 13.9 14.7 HCT 38.1 41.0 44.4 PLT 241 263 281 NA 141 140 137 K 4.7 4.4 3.9 CHLOR 109* 109* 100 CO2 22 20* 24 BUN 16 15 20 CREAT 0.85 0.62 0.80 GLUC 84 170* 90 CA 8.6 8.9 9.2 MG -- -- 2.4* CRP 0.8 03/04/2025 Duran Kern MD 05/13/2025 8:44 PM Normal [facility] NURSING PROGon 05-13-2025 NURSING PROG HNO ID: [id number] Author: CHEVY NUÑEZ RN Service: PICC Team Author Type: Registered Nurse Type: Nursing Progress Note Filed: 05/13/2025 13:07 Note Text: PICC/VASCULAR ACCESS PROGRESS NOTE SERVICE DATE: 05/13/2025 SERVICE TIME: [address] PIV after unsuccessful RN attempt. #22 gauge, 1 inch IV started right forearm on first attempt by MIRNA Alston using ultrasound guidance. Brisk blood return and flushed with 10 ml normal saline. No signs of complication. SIGNATURE: Chevy Nuñez RN PATIENT NAME: Rosalva Huang DATE: May 13, 2025 TIME: 1:06 PM PAGER/CONTACT #: [phone] [facility] 05-12-2025 [facility] HNO ID: [id number] Author: CLYDE ALANIS RT(R) Service: ? Author Type: Benefits Analyst Type: [facility] Filed: 05/12/2025 12:17 Note Text: Radiology Service Progress Note PATIENT NAME: Rosalva Huang DATE OF SERVICE: May 12, 2025 TIME: 12:16 PM PATIENT IDENTITY VERIFICATION COMPLETED USING TWO (2) IDENTIFIERS: Name and Date of confirmed by patient verbally and Name and Date of confirmed by identification band. FALL SCREENING: Has the patient had 2 falls in the last year or 1 fall with injury or currently using an Ambulatory Assistive Device (Walker, Cane, Wheelchair, Crutches, etc.)? Inpatient: Screened on floor PATIENT GENDER DATA: Assigned female at . status: : No status: NO. PATIENT RELEVANT IMPLANT DATA REVIEWED: Not Applicable PATIENT PRESENTS WITH AN IMPLANTABLE OR ATTACHED RECREATIONAL LEADER: No RADIOLOGY DEPARTMENT: Ultrasound PERIPHERAL IV DATA: Not applicable SIGNED BY: RT Nissa(R) May 12, 2025 12:16 PM [facility] HNO ID: [id number] Author: CRISTOPHER AGUIAR RDMS Service: ? Author Type: Technologist Type: [facility] Filed: 05/12/2025 12:09 Note Text: Radiology Service Progress Note PATIENT NAME: Rosalva Huang DATE OF SERVICE: May 12, 2025 TIME: 12:09 PM PATIENT IDENTITY VERIFICATION COMPLETED USING TWO (2) IDENTIFIERS: Name and Date of confirmed by patient verbally and Name and Date of confirmed by identification band. FALL SCREENING: Has the patient had 2 falls in the last year or 1 fall with injury or currently using an Ambulatory Assistive Device (Walker, Cane, Wheelchair, Crutches, etc.)? Inpatient: Screened on floor PATIENT GENDER DATA: Assigned female at . status: : No status: NO. PATIENT RELEVANT IMPLANT DATA REVIEWED: Not Applicable PATIENT PRESENTS WITH AN IMPLANTABLE OR ATTACHED RECREATIONAL LEADER: No RADIOLOGY DEPARTMENT: Ultrasound PERIPHERAL IV DATA: Not applicable SIGNED BY: CRISTOPHER AGUIAR RDMS May 12, 2025 12:09 PM Normal [facility] Bacteria Wnd Culton 05-12-20 25 Bacteria identified Cx Nom (Wound) ORGANISM ID: 1 Rare skin nia GRAM STAIN: No organisms seen No Polymorphonuclear Leukocytes Normal [facility] Comment on above: Performed By: #### 6 462-6 ####[facility] LAB[facility]IA [id number] [place] [address] [place] Basic metabolic 2000 panelon 05-12-2025 Anion gap [Moles/Vol] 11 mmol/L Normal 8-15 [facility] Comment on above: Order Comment: Speci men Type: SWAB [facility] Address: [address] [place] [address] Performed By: #### S APCR #### [facility] CLIA [id number] [address] [place] [address] [place] Calcium [Mass/Vol] 8.9 mg/dL Normal 8.5-10.2 [facility] Comment on above: Order Comment: Speci men Type: SWAB [facility] Address: [address] [place] [address] Performed By: #### S APCR #### [facility] CLIA [id number] [address] [place] [address] [place] Chloride [Moles/Vol] 109 mmol/L High 98-107 [facility] Comment on above: Order Comment: Speci men Type: SWAB [facility] Address: [address] [place] [address] Performed By: #### S APCR #### [facility] CLIA [id number] [address] [place] [address] [place] CO2 [Moles/Vol] 20 mmol/L Low 22-30 [facility] Comment on above: Order Comment: Speci men Type: SWAB [facility] Address: [address] [place] [address] Performed By: #### S APCR #### [facility] CLIA [id number] [address] [place] [address] [place] Creatinine [Mass/Vol] 0.62 mg/dL Normal 0.58-0.96 [facility] Comment on above: Order Comment: Speci men Type: SWAB [facility] Address: [address] [place] [address] Performed By: #### S APCR #### [facility] CLIA [id number] [address] [place] [address] [place] Creatinine and Glomerular filtration rate.predicted panel (S/P/Bld) 120 mL/min/1.73m??? Normal >=60 [facility] Comment on above: Order Comment: Speci men Type: SWAB [facility] [facility] Address: [address] [place] [address] Result Comment: Anne-Marie mated Glomerular Filtration Rate (eGFR) is calculated using the 2020 CKD-EPI creatinine equation. This equation utilizes serum creatinine, sex, and age as parameters. The creatinine assay has traceable calibration to isotope dilution-mass spectrometry. Refer to KDIGO guidelines for clinical interpretation. In patients with unstable renal function, e.g. those with acute kidney injury, the eGFR may not accurately reflect actual GFR. Performed By: #### S APCR #### [facility] CLIA [id number] [address] [place] [address] [place] Glucose [Mass/Vol] 170 mg/dL High 74-99 [facility] Comment on above: Order Comment: Speci men Type: SWAB [facility]ing [facility]: [facility] Address: [address] [place] [address] Result Comment: The [place] Diabetes Association (ADA) provides guidance for cutoff values for fasting glucose and random glucose. The ADA defines fasting as no caloric intake for at least 8 hours. Fasting plasma glucose results between 100 to 125 mg/dL indicate increased risk for diabetes (prediabetes). Fasting plasma glucose results greater than or equal to 126 mg/dL meet the criteria for diagnosis of diabetes. In the absence of unequivocal hyperglycemia, results should be confirmed by repeat testing. In a patient with classic symptoms of hyperglycemia or hyperglycemic crisis, random plasma glucose results greater than or equal to 200 mg/dL meet the criteria for diagnosis of diabetes. Reference: Standards of Medical Care in Diabetes 2016, [place] [employer] Association. Diabetes Care. 2016.39(Suppl 1). Performed By: #### S APCR #### [facility] CLIA [id number] [address] [place] [address] [place] Potassium [Moles/Vol] 4.4 mmol/L Normal 3.7-5.1 [facility] Comment on above: Order Comment: Speci men Type: SWAB [facility]ing Facility: [facility] Address: [address] [place] [address] Performed By: #### S APCR #### [facility] CLIA [id number] [address] [place] [address] [place] Sodium [Moles/Vol] 140 mmol/L Normal 136-144 [facility] Comment on above: Order Comment: Speci men Type: SWAB [facility]ing Facility: [facility] Address: [address] [place] [address] Performed By: #### S APCR #### [facility] CLIA [id number] [address] [place] [address] [place] Urea nitrogen [Mass/Vol] 15 mg/dL Normal 7-21 [facility] Comment on above: Order Comment: Speci men Type: SWAB [facility]ing [facility] Address: [address] [place] [address] Performed By: #### S APCR #### [facility] CLIA [id number] [address] [place] [address] [place] CBC panel Auto (Bld)on 05-12 Erythrocyte distribution width (RBC) [Ratio] 13.2 % Normal 11.5-15.0 [facility] Comment on above: Order Comment: Speci men Type: SWAB [facility]ing Facility: [facility] Address: [address] [place] [address] Performed By: #### S APCR #### [facility] CLIA [id number] [address] [place] [address] [place] Hematocrit (Bld) [Volume fraction] 41.0 % Normal 36.0-46.0 [facility] Comment on above: Order Comment: Speci men Type: SWAB [facility]ing Facility: [facility] Address: [address] [place] [address] Performed By: #### S APCR #### [facility] CLIA [id number] [address] [place] [address] [place] Hemoglobin (Bld) [Mass/Vol] 13.9 g/dL Normal 11.5-15.5 [facility] Comment on above: Order Comment: Speci men Type: SWAB [facility]ing Facility: [facility] Address: [address] [place] [address] Performed By: #### S APCR #### [facility] CLIA [id number] [address] [place] [address] [place] MCH (RBC) [Entitic mass] 29.5 pg Normal 26.0-34.0 [facility] Comment on above: Order Comment: Speci men Type: SWAB [facility]ing [facility]: [facility] Address: [address] [place] [address] Performed By: #### S APCR #### [facility] CLIA [id number] [address] [place] [address] [place] MCHC (RBC) [Mass/Vol] 33.9 g/dL Normal 30.5-36.0 [facility] Comment on above: Order Comment: Speci men Type: SWAB [facility]ing Facility: [facility] Address: [address] [place] [address] Performed By: #### S APCR #### [facility] CLIA [id number] [address] [place] [address] [place] MCV (RBC) [Entitic vol] 87.0 fL Normal 80.0-100.0 [facility] Comment on above: Order Comment: Speci men Type: SWAB [facility]ing [facility]: [facility] Address: [address] [place] [address] Performed By: #### S APCR #### [facility] CLIA [id number] [address] [place] [address] [place] Nucleated RBC (Bld) [#/Vol] 10*3/uL Normal <0.01 [facility] Comment on above: Order Comment: Speci men Type: SWAB [facility]ing Facility: [facility] Address: [address] [place] [address] Performed By: #### S APCR #### [facility] CLIA [id number] [address] [place] [address] [place] Platelet mean volume (Bld) [Entitic vol] 9.7 fL Normal 9.0-12.7 [facility] Comment on above: Order Comment: Speci men Type: SWAB [facility]ing Facility: [facility] Address: [address] [place] [address] Performed By: #### S APCR #### [facility] CLIA [id number] [address] [place] [address] [place] Platelets (Bld) [#/Vol] 263 10*3/uL Normal 150-400 [facility] Comment on above: Order Comment: Speci men Type: SWAB [facility]ing [facility] Address: [address] [place] [address] Performed By: #### S APCR #### [facility] CLIA [id number] [address] [place] [address] [place] RBC (Bld) [#/Vol] 4.71 10*6/uL Normal 3.90-5.20 [facility] Comment on above: Order Comment: Speci men Type: SWAB [facility]ing [facility]: [facility] Address: [address] [place] [address] Performed By: #### S APCR #### [facility] CLIA [id number] [address] [place] [address] [place] WBC (Bld) [#/Vol] 5.90 10*3/uL Normal 3.70-11.00 [facility] Comment on above: Order Comment: Speci men Type: SWAB [facility]ing [facility]: [facility] Address: [address] [place] [address] Performed By: #### S APCR #### [facility] CLIA [id number] [address] [place] [address] [place] CK SerPl-cCncon 05-12-2025 CK [Catalytic activity/Vol] 106 U/L Normal 42-196 [facility] Comment on above: Order Comment: Speci men Type: SWAB [facility]ing [facility]: [facility] Address: [address] [place] [address] Performed By: #### S APCR #### [facility] CLIA [id number] [address] [place] [address] [place] CONSULT PROGon 05-12-2025 CONSULT PROG HNO ID: [id number] Author: DURAN KERN MD Service: Infectious Disease Author Type: Physician Type: Consult Progress Note Filed: 05/13/2025 04:03 Note Text: INFECTIOUS DISEASE CONSULT PROGRESS NOTES PATIENT NAME: Rosalva Huang SERVICE DATE: 05/12/2025 ASSESSMENT AND PLAN: Left nipple infection due to piercing, has ring in place. Advised TO patient- may need ring removal. Discharge is purulent yellow, 05/12--CULTURE---culture-- in progress The patient has multiple drug allergies including severe red man syndrome with vancomycin. IV meropenem, and daptomycin--- tolerating so far mrsa screen-neg . Left mastitis and cellulitis. IV daptomycin and iv meropenem Bipolar disorder. Transaminitis. right upper quadrant ultrasound.---hepatic steatosis hepatitis screen.----in progress . bipolar disorder on meds d/w pt and n staff interval hpi----pt is tolerating present ab nipple d/s cx--in progress lt breast cellulitis is improving, mastitis present no abscess by us today Transaminitis. likely due to ---hepatic steatosis hepatitis screen.----in progress MEDICATIONS: Current Facility-Administered Medications Medication Dose Route Frequency NaCl 0.9% iv flush bag 20 mL INTRAVENOUS PRN ondansetron 4 mg tab(s) (ZOFRAN) 4 mg ORAL q 6 H PRN Or ondansetron (PF) 4 mg injection (ZOFRAN) 4 mg INTRAVENOUS q 6 H PRN acetaminophen 650 mg tab(s) (TYLENOL) 650 mg ORAL q 6 H PRN clonazePAM 1 mg tab(s) (KlonoPIN) 1 mg ORAL DAILY PRN divalproex ER 1,000 mg tab(s) (DEPAKOTE ER) 1,000 mg ORAL DAILY escitalopram oxalate 20 mg tab(s) (LEXAPRO) 20 mg ORAL DAILY lamoTRIgine 100 mg tab(s) (LaMICtal) 100 mg ORAL AT BEDTIME meropenem 1 g in NaCl 0.9% 100 mL Vial-Bag (MERREM) 1 g INTRAVENOUS q 8 H risperiDONE (RisperDAL) tab(s) 3 mg 3 mg ORAL AT BEDTIME diphenhydrAMINE 50 mg injection (BENADRYL) 50 mg INTRAVENOUS q 6 H PRN DAPTOmycin 400 mg in NaCl 0.9% 50 mL (CUBICIN) 6 mg/kg/dose (Adjusted) INTRAVENOUS q 24 HR OBJECTIVE PHYSICAL EXAM: BP 116/66 Pulse 72 Temp (Src) 97.7 (Oral) Resp 17 Ht 5' 4" (1.63m) Wt 195 lb (88.5kg) SpO2 95% BMI 33.46 kg/(m2). O2 Therapy: Room Air Skin: There is no evident rash. Neck: Supple. Oropharynx clear. No evidence of thrush. No cervical lymphadenopathy. Chest: Decreased air entry, bilateral bases. Few rales heard. Cardiovascular: S1, S2 normal. No murmur, no gallop heard. Abdomen: Soft, nontender. No organomegaly. Bilateral Breasts: The patient has rings in bilateral nipples. Left nipple is tender. Drainage is present. Culture has been obtained. The patient has erythema on the left breast, tender consistent with mastitis. No breast fold rash. No fungal rash. Abdomen: Soft, nontender. No organomegaly. Bowel sounds present. Extremities: Trace edema is present. The patient is moving all 4 extremities. Diagnostic tests reviewed for today's visit: Most recent labs and compared Most recent micro/ EKG Most recent imaging and compared Recent Labs 05/12/25 0431 05/11/25 1606 WBC 5.90 7.53 HB 13.9 14.7 HCT 41.0 44.4 PLT 263 281 NA 140 137 K 4.4 3.9 CHLOR 109* 100 CO2 20* 24 BUN 15 20 CREAT 0.62 0.80 GLUC 170* 90 CA 8.9 9.2 MG -- 2.4* CRP 0.8 03/04/2025 Duran Kern MD 05/12/2025 8:45 PM Normal [facility] HAV IgM Ser Qlon 05-12-2025 HAV IgM Ql (S) Negative Normal Negative [facility] Comment on above: Order Comment: Speci men Type: SWAB [facility] Address: [address] [place] [address] Result Comment: No e vidence of recent infection with Hepatitis A virus. Performed By: #### S APCR #### [facility] CLIA [id number] [address] [place] [address] [place] HBV core IgM Ser Qlon 2024 HBV core IgM Ql (S) Negative Normal Negative [facility] Comment on above: Order Comment: Speci men Type: SWAB Ordering [facility]: [facility] Address: [address] [place] [address] Result Comment: No e vidence of recent infection with Hepatitis B virus. Should recent infection be suspected, repeat testing may be considered 3-4 weeks after this draw. Performed By: #### S APCR #### [facility] CLIA [id number] [address] [place] [address] [place] HBV surface Ag Ser Qlon 06-2 HBV surface Ag Ql (S) Negative Normal Negative [facility] Comment on above: Order Comment: Speci men Type: BLOOD SPECIMENOrdering Facility: [facility] Address: [address] [place] [address] Performed By: #### 5 195-3 ####[facility] [id number] [place] [address] [place] HCV RNA LAURA+probe Qnon 05-12 HCV RNA LAURA+probe Ql Not detected Normal Not detected [facility] Comment on above: Order Comment: Speci men Type: BLOOD SPECIMENOrdering Facility: [facility] Address: [address] [place] [address] Performed By: #### 1 1011-4 ####[facility] [id number] [place] [address] [place] Hepatic function 2000 panelo 05-12-2025 Albumin [Mass/Vol] 4.4 g/dL Normal 3.9-4.9 [facility] Comment on above: Order Comment: Speci men Type: SWAB [facility] Address: [address] [place] [address] Performed By: #### S APCR #### [facility] CLIA [id number] [address] [place] [address] [place] ALP [Catalytic activity/Vol] 109 U/L Normal 34-123 [facility] Comment on above: Order Comment: Speci men Type: SWAB [facility] Address: [address] [place] [address] Performed By: #### S APCR #### [facility] CLIA [id number] [address] [place] [address] [place] ALT [Catalytic activity/Vol] 44 U/L High 7-38 [facility] Comment on above: Order Comment: Speci men Type: SWAB [facility] Address: [address] [place] [address] Performed By: #### S APCR #### [facility] CLIA [id number] [address] [place] [address] [place] AST [Catalytic activity/Vol] 31 U/L Normal 13-35 [facility] Comment on above: Order Comment: Speci men Type: SWAB [facility] Address: [address] [place] [address] Performed By: #### S APCR #### [facility] CLIA [id number] [address] [place] [address] [place] Bilirubin [Mass/Vol] 0.3 mg/dL Normal 0.2-1.3 [facility] Comment on above: Order Comment: Speci men Type: SWAB [facility] Address: [address] [place] [address] Performed By: #### S APCR #### [facility] CLIA [id number] [address] [place] [address] [place] Bilirubin.conjugated [Mass/Vol] 0.1 mg/dL Normal <0.3 [facility] Comment on above: Order Comment: Speci men Type: SWAB [facility] Address: [address] [place] [address] Performed By: #### S APCR #### [facility] CLIA [id number] [address] [place] [address] [place] Protein [Mass/Vol] 7.1 g/dL Normal 6.3-8.0 [facility] Comment on above: Order Comment: Speci men Type: SWAB [facility] Address: [address] [place] [address] Performed By: #### S APCR #### [facility] CLIA [id number] [address] [place] [address] [place] STAPHYLOCOCCUS AUREUS AND MR SA SCREEN, PCR, NASALon 05-12-2025 S. aureus and MRSA panel LAURA+probe (Nose) Not detected Normal Not Detected [facility] Comment on above: Order Comment: Speci men Type: BLOOD SPECIMEN [facility] Address: [facility] [place] [address] Performed By: #### 4 091-5 #### [facility] CLIA [id number] [address] [place] [address] [place] US ABD RIGHT UPPER QUADRANTo n 05-12-2025 US ABD RIGHT UPPER QUADRANT * * *Final Report* * * DATE OF EXAM: May 12 2025 12:09PM FVU 1032 - US ABD RIGHT UPPER QUADRANT / PROCEDURE REASON: Abn liver function tests (LFTs) * * * * Physician Interpretation * * * * EXAMINATION: RIGHT UPPER QUADRANT ULTRASOUND CLINICAL HISTORY: Abnormal liver function tests TECHNIQUE: Sonography of the right upper quadrant was performed. Images were obtained and stored in a permanent archive. MQ: [id number] COMPARISON: CT 03/28/2025 RESULT: Pancreas: Normal sonographic appearance. Portions obscured: tail Liver: Echotexture: Normal, homogeneous. Echogenicity: Increased Surface contour: Smooth Lesions: None. Biliary: No intrahepatic biliary duct dilation. CBD: 0.4 cm at the hilum. Gallbladder: Normal caliber -Contents: No cholelithiasis -Wall: Normal -Other: No pericholecystic fluid. Negative sonographic Skinner sign Right Kidney: No hydronephrosis. Ascites: None. IMPRESSION: Hepatic steatosis. No other acute process [employer] Instructor: ZACHARY Transcribe Date/Time: May 12 2025 12:20P Dictated by : CATRACHITA SCHWARTZ MD This examination was interpreted and the report reviewed and electronically signed by: CATRACHITA SCHWARTZ MD on May 12 2025 12:25PM EST [id number] Normal [facility] US CHEST WALL/SOFT TISSUEon 05-12-2025 US CHEST WALL/SOFT TISSUE * * *Final Report* * * DATE OF EXAM: May 12 2025 12:13PM FVU 1047 - US CHEST WALL/SOFT TISSUE / PROCEDURE REASON: Soft tissue mass, chest, superficial * * * * Physician Interpretation * * * * EXAMINATION: US CHEST WALL/SOFT TISSUE CLINICAL HISTORY: Soft tissue mass, chest, superficial Technique: US CHEST WALL/SOFT TISSUE Comparison: Ultrasound 02/14/2025 RESULT: Images obtained in the area of interest of the left breast. No masses or fluid collections visualized. There is mild ductal ectasia in this region which was seen on prior ultrasound. IMPRESSION: 1. No masses or fluid collections in the area of interest in the left breast. 2. There is mild ductal ectasia which was present on prior ultrasound. Nonspecific. Beauty [employer] Instructor: PSCB Transcribe Date/Time: May 12 2025 12:25P Dictated by : CATRACHITA SCHWARTZ MD This examination was interpreted and the report reviewed and electronically signed by: CATRACHITA SCHWARTZ MD on May 12 2025 12:29PM EST [id number] Normal [facility] Bacteria Bld Culton 05-11-20 25 Bacteria identified Cx Nom (Bld) CULTURE, BLOOD: No growth 5 days Normal [facility] Comment on above: Performed By: #### 6 00-7 ####[facility] [id number] [address] [place] Bacteria identified Cx Nom (Bld) CULTURE, BLOOD: No growth 5 days Normal [facility] Comment on above: Performed By: #### 6 00-7 ####[facility] [id number] [place] [id number] [place] Bacteria Wnd Culton 05-11-20 25 Bacteria identified Cx Nom (Wound) ORGANISM ID: 1 Few skin nia GRAM STAIN: Rare Gram positive cocci Rare Polymorphonuclear leukocytes Abnormal [facility] Comment on above: Performed By: #### 6 462-6 ####[facility] [id number] [place] [id number] [place] CBC W Auto Differential pane l (Bld)on 05-11-2025 Basophils (Bld) [#/Vol] 0.05 10*3/uL Normal <0.11 [facility] Comment on above: Order Comment: Speci men Type: BLOOD SPECIMENOrdering Facility: [facility] Address: [address] [place] [address] Performed By: #### 5 7021-8 ####[facility] LWCLIA [id number] [place] [id number] [place] Basophils/100 WBC (Bld) 0.7 % Normal [facility] Comment on above: Order Comment: Speci men Type: BLOOD SPECIMENOrdering Facility: [facility] Address: [address] [place] [address] Performed By: #### 5 7021-8 ####[facility] LWCLIA [id number] [place] [address] [place] Differential cell count method Nom (Bld) Auto Normal [facility] Comment on above: Order Comment: Speci men Type: BLOOD SPECIMENOrdering Facility: [facility] Address: [address] [place] [address] Performed By: #### 5 7021-8 ####[facility] LWCLIA [id number] [place] [address] [place] Eosinophils (Bld) [#/Vol] 0.07 10*3/uL Normal <0.46 [facility] Comment on above: Order Comment: Speci men Type: BLOOD SPECIMENOrdering Facility: [facility] Address: [address] [place] [address] Performed By: #### 5 7021-8 ####[facility] LWCLIA [id number] [place] [id number] [place] Eosinophils/100 WBC (Bld) 0.9 % Normal [facility] Comment on above: Order Comment: Speci men Type: BLOOD SPECIMENOrdering Facility: [facility] Address: [address] [place] [address] Performed By: #### 5 7021-8 ####[facility] LWCLIA [id number] [place] [id number] [place] Erythrocyte distribution width (RBC) [Ratio] 13.5 % Normal 11.5-15.0 [facility] Comment on above: Order Comment: Speci men Type: BLOOD SPECIMENOrdering Facility: [facility] Address: [address] [place] [address] Performed By: #### 5 7021-8 ####[facility] LWCLIA [id number] [place] [id number] [place] Hematocrit (Bld) [Volume fraction] 44.4 % Normal 36.0-46.0 [facility] Comment on above: Order Comment: Speci men Type: BLOOD SPECIMENOrdering Facility: [facility] Address: [address] [place] [address] Performed By: #### 5 7021-8 ####[facility] LWIA [id number] [place] [address] [place] Hemoglobin (Bld) [Mass/Vol] 14.7 g/dL Normal 11.5-15.5 [facility] Comment on above: Order Comment: Speci men Type: BLOOD SPECIMENOrdering Facility: [facility] Address: [address] [place] [address] Performed By: #### 5 7021-8 ####[facility] LWCLIA [id number] [place] [id number] [place] Immature granulocytes (Bld) [#/Vol] 0.08 10*3/uL Normal <0.10 [facility] Comment on above: Order Comment: Speci men Type: BLOOD SPECIMENOrdering Facility: [facility] Address: [address] [place] [address] Performed By: #### 5 7021-8 ####[facility] LWCLIA [id number] [place] [id number] [place] Immature granulocytes/100 WBC (Bld) 1.1 % Normal [facility] Comment on above: Order Comment: Speci men Type: BLOOD SPECIMENOrdering Facility: [facility] Address: [address] [place] [address] Performed By: #### 5 7021-8 ####[facility] LWCLIA [id number] [place] [address] [place] Lymphocytes (Bld) [#/Vol] 2.37 10*3/uL Normal 1.00-4.00 [facility] Comment on above: Order Comment: Speci men Type: BLOOD SPECIMENOrdering Facility: [facility] Address: [address] [place] [address] Performed By: #### 5 7021-8 ####[facility] LWIA [id number] [address] [place] Lymphocytes/100 WBC (Bld) 31.5 % Normal [facility] Comment on above: Order Comment: Speci men Type: BLOOD SPECIMENOrdering Facility: [facility] Address: [address] [place] [address] Performed By: #### 5 7021-8 ####[facility] LWIA [id number] [place] [address] [place] MCH (RBC) [Entitic mass] 29.6 pg Normal 26.0-34.0 [facility] Comment on above: Order Comment: Speci men Type: BLOOD SPECIMENOrdering Facility: [facility] Address: [address] [place] [address] Performed By: #### 5 7021-8 ####[facility] LWCLIA [id number] [place] [id number] [place] MCHC (RBC) [Mass/Vol] 33.1 g/dL Normal 30.5-36.0 [facility] Comment on above: Order Comment: Speci men Type: BLOOD SPECIMENOrdering Facility: [facility] Address: [address] [place] [address] Performed By: #### 5 7021-8 ####[facility] LWCLIA [id number] [place] [id number] [place] MCV (RBC) [Entitic vol] 89.5 fL Normal 80.0-100.0 [facility] Comment on above: Order Comment: Speci men Type: BLOOD SPECIMENOrdering Facility: [facility] Address: [address] [place] [address] Performed By: #### 5 7021-8 ####[facility] LWCLIA [id number] [place] [id number] [place] Monocytes (Bld) [#/Vol] 0.49 10*3/uL Normal <0.87 [facility] Comment on above: Order Comment: Speci men Type: BLOOD SPECIMENOrdering Facility: [facility] Address: [address] [place] [address] Performed By: #### 5 7021-8 ####[facility] LWCLIA [id number] [address] [facility] Monocytes/100 WBC (Bld) 6.5 % Normal [facility] Comment on above: Order Comment: Speci men Type: BLOOD SPECIMENOrdering Facility: [facility] Address: [address] [place] [address] Performed By: #### 5 7021-8 ####[facility] LWCLIA [id number] [place] [address] [place] Neutrophils (Bld) [#/Vol] 4.47 10*3/uL Normal 1.45-7.50 [facility] Comment on above: Order Comment: Speci men Type: BLOOD SPECIMENOrdering Facility: [facility] Address: [address] [place] [address] Performed By: #### 5 7021-8 ####[facility] LWCLIA [id number] [place] [address] [place] Neutrophils/100 WBC (Bld) 59.3 % Normal [facility] Comment on above: Order Comment: Speci men Type: BLOOD SPECIMENOrdering Facility: [facility] Address: [address] [place] [address] Performed By: #### 5 7021-8 ####[facility] LWCLIA [id number] [place] [id number] [place] Nucleated RBC (Bld) [#/Vol] 10*3/uL Normal <0.01 [facility] Comment on above: Order Comment: Speci men Type: BLOOD SPECIMENOrdering Facility: [facility] Address: [address] [place] [address] Performed By: #### 5 7021-8 ####[facility] LWCLIA [id number] [place] [id number] [place] Nucleated RBC/100 WBC (Bld) [Ratio] 0.0 /100 WBC Normal [facility] Comment on above: Order Comment: Speci men Type: BLOOD SPECIMENOrdering Facility: [facility] Address: [address] [place] [address] Performed By: #### 5 7021-8 ####[facility] LWCLIA [id number] [place] [address] [place] Platelet mean volume (Bld) [Entitic vol] 10.1 fL Normal 9.0-12.7 [facility] Comment on above: Order Comment: Speci men Type: BLOOD SPECIMENOrdering Facility: [facility] Address: [address] [place] [address] Performed By: #### 5 7021-8 ####[facility] LWCLIA [id number] [place] [id number] [place] Platelets (Bld) [#/Vol] 281 10*3/uL Normal 150-400 [facility] Comment on above: Order Comment: Speci men Type: BLOOD SPECIMENOrdering Facility: [facility] Address: [address] [place] [address] Performed By: #### 5 7021-8 ####[facility] LWCLIA [id number] [place] [id number] [place] RBC (Bld) [#/Vol] 4.96 10*6/uL Normal 3.90-5.20 [facility] Comment on above: Order Comment: Speci men Type: BLOOD SPECIMENOrdering Facility: [facility] Address: [address] [place], [place] [address], [place] [address] Performed By: #### 5 7021-8 ####[facility] LWCLIA [id number] [place] [id number] [place] WBC (Bld) [#/Vol] 7.53 10*3/uL Normal 3.70-11.00 [facility] Comment on above: Order Comment: Speci men Type: BLOOD SPECIMENOrdering Facility: [facility] Address: [address] [place] [address] Performed By: #### 5 7021-8 ####[facility] LWCLIA [id number] [place] [id number] [facility] CNPNon 05-11-2025 CNPN Telephone (FVPRAD) ----- ROSALVA HUANG ([id number]) 1990 F [facility] Date Time Provider Department 05/11/25 KENDELL RING During your visit today, we recorded the following information about you: Kendell Ring MD 05/11/2025 6:44 PM Signed 35 year-old female with history of significant multiple allergies to many antibiotics presenting to ED with infected breast due to infected nipple piercing. Similar prior admission, now presenting with breast erythma, pain, and fever. Patient had tolerated IV vancomycin with benadryl previously. Admitted for IV antibiotics given extensive list of allergies and for ID consult after arrival. Kendell Ring MD 05/11/2025 6:44 PM Allergies As of Date: 05/11/2025 Noted Allergy Reaction CLINDAMYCIN 01/05/2025 4 - Hives Comments: Diffuse hives and angioedema of upper lip within 30 minutes of receiving 1st dose. DOXYCYCLINE 01/06/2025 4 - Hives Comments: Diffuse hives 30 minutes after 1st dose. Diffuse hives and x1 episode of emesis 30 minutes after 2nd dose. FLUCONAZOLE 01/08/2025 2 - Rash Comments: Required IV diphenhydramine 01/06/2025 KEFLEX (CEPHALEXIN) 02/27/2025 10 - Anaphylaxis Comments: 03/13/2025 Tolerated graded dose amoxicillin challenge Diffuse rash with upper lip and tongue swelling 15 minutes after first dose. ONION 05/25/2022 8 - GI Upset SULFAMETHOXAZOLE-TRIMETHO PRIM 02/28/2025 4 - Hives VANCOMYCIN 01/02/2025 9 - Itching Comments: Flushing and pruritus consistent with vancomycin infusion reaction. Please refer to Allergy note from 01/05/2025 for details. ADHESIVE TAPE (ROSINS) 12/28/2018 2 - Rash 9 - Itching Comments: Patient reports unable to tolerate band-aids after a procedure. She noted redness and itching at site of band aid. MOSQUITOS 02/04/2006 7 - Swelling PROMETHAZINE 05/15/2018 16 - Unknown Comments: Other Reaction(s): GI Upset SUNSCREEN 11/13/2015 2 - Rash Comments: Tingle tanning lotion ZYRTEC (CETIRIZINE HCL) 02/16/2019 4 - Hives 14 - Other: See Comments Comments: Hives and palpitations within 30 minutes of 1st dose. Tolerates Benadryl without issue. No contraindication to trying other antihistamines such as Arthur or Claritin. Date Reviewed: 05/11/2025 Reviewed by: Winnie Ocampo RN - Fully Assessed Prescriptions as of 05/11/2025 - divalproex ER (DEPAKOTE ER) 500 mg 24 hr tablet Take 1,000 mg by mouth every evening. - cyproheptadine (PERIACTIN) 4 mg tablet Take 1 tablet by mouth two times a day as needed (migraine). - diphenhydrAMINE (BENADRYL) 50 mg capsule Take 1 capsule by mouth every 6 hours as needed for itching/rash. - EPINEPHrine (EPIPEN 2-RICK) 0.3 mg/0.3 mL auto-injector Inject 0.3 mL intramuscularly as needed. - prochlorperazine (COMPAZINE) 10 mg tablet Take 1 tablet by mouth every 6 hours as needed for nausea/vomiting. - EPINEPHrine (EPIPEN) 0.3 mg/0.3 mL auto-injector Inject 0.3 mL intramuscularly as needed (for analphylactic reaction). - escitalopram oxalate (LEXAPRO) 20 mg tablet Take 20 mg by mouth once daily. - clonazePAM (KLONOPIN) 1 mg tablet Take 1 mg by mouth once daily as needed for anxiety. - lamoTRIgine (LAMICTAL) 200 mg tablet Take 1 tablet by mouth once daily. - risperiDONE (RISPERDAL) 2 mg tablet Take 2 mg by mouth daily at bedtime. - risperiDONE (RISPERDAL) 0.5 mg tablet Take 0.5 mg by mouth daily at bedtime. Facility-Administered Medications as of 05/11/2025 - vancomycin 1.25 g in D5W 250 mL (VANCOCIN) - NaCl 0.9% iv flush bag - onabotulinum toxin type A 200 Units injection (BOTOX) Problem List As Of Date 05/11/2025 Noted Resolved Other protein-calorie malnutrition [E46] 04/06/2006 09/17/2020 Routine gynecological examination [Z01.419] 10/26/2014 09/17/2020 Endometriosis [N80.9] 10/26/2014 10/16/2020 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HCC) [F31.61] 08/27/2015 Centromere antibody positive [R76.8] 02/16/2019 09/17/2020 CHATO positive [R76.8] 02/16/2019 09/17/2020 Itching [L29.9] 02/16/2019 09/17/2020 Drug eruption [L27.0] 02/16/2019 01/13/2025 Vomiting, persistent, in adult [R11.15] 02/16/2019 09/17/2020 Migraine without aura and without status migrai*07/18/2019 Peripheral vertigo [H81.399] 07/18/2019 09/17/2020 Encounter for supervision of normal first pregn*09/17/2020 05/07/2021 History of drug use [F19.91] 09/17/2020 Rubella non-immune status, antepartum [O09.899,*10/16/2020 05/07/2021 Admitted to labor and delivery [Z78.9] 04/16/2021 05/07/2021 Full-term premature rupture of membranes [O42.9*04/16/2021 05/07/2021 (spontaneous vaginal delivery) [O80] 04/17/2021 05/07/2021 Panic disorder without agoraphobia [F41.0] 05/28/2021 Anxiety state [F41.1] 05/28/2021 Adjustment disorder with mixed anxiety and depr*04/29/2021 UTI (urinary tract infection) during ,*05/25/2022 Gestational diabetes mellitus (more content not included)... Normal [facility] CONSULTon 05-11-2025 CONSULT HNO ID: [id number] Author: DURAN KERN MD Service: Infectious Disease Author Type: Physician Type: Consults Filed: 05/12/2025 04:31 Note Text: [facility] - Consultation REINAROSALVA : 1990 AGE: 35 SEX: F CSN: [id number] [facility] SVC: Medical LOCATION: [facility] ATTENDING PHYSICIAN: GABRIELA BOOTHE DATE OF SERVICE: 05/11/2025 TIME OF SERVICE: 11:22 PM CONSULTING PHYSICIAN: Duran Kern M.D. REASON FOR CONSULTATION: To evaluate for left side acute mastitis.and nipple drainage HISTORY OF PRESENT ILLNESS: This is a 35-year-old female with a history significant for bipolar disorder, multiple antibiotic allergies including clinda, doxy, Keflex, Bactrim, vanco. The patient had her nipple pierced in 09/2024, and report it got complicated with infection in 12/2024 when the ring was removed and she was treated with a course of IV antibiotic in hospital. The patient was sent home with Keflex, but then she developed severe reaction within 15 minutes of dose. The patient reported in January when her previous infection resolved, she had piercings again in the left nipple in 01/2025. She now presents with discharge from nipple on the left side and diffuse cellulitis of the left breast and is tender. The patient reports pain, tenderness of the left breast is 4/10, localized, worse with pressure, better with the pain medication and rest in the hospital. The patient received vancomycin in ED with Benadryl 25 mg, but the itching of the scalp persisted consistent with red man syndrome. The patient is afraid to take vancomycin now. She has a leukocytosis and the patient is admitted. The patient denies any fever or chills. Her discharge from nipple is some yellowish colored drainage. Culture was sent. The patient denies any fever or chills at present. Denies any nausea. No diarrhea. Nipple drainage from 05/11 is showing rare gram-positive cocci. COMPLETE REVIEW OF SYSTEMS: No headache. No sinus congestion. No neck pain. No thyroid enlargement. No cervical lymph node. No chest pain. No palpitations. No deep abdominal pain. No dysuria. No focal motor neurological symptoms. Ten systems reviewed, otherwise were negative. PAST MEDICAL HISTORY Diagnosis Date Endometriosis 10/26/2014 never had diagnostic lap to confirm, patient did not want surgery NIKKIE (generalized anxiety disorder) Gestational diabetes mellitus (GDM) affecting second ([facility]) 05/25/2022 Infertility, female Migraine without aura and without status migrainosus, not intractable 07/18/2019 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[facility]) 08/27/2015 Panic disorder without agoraphobia PMH - PAST MEDICAL HISTORY OF vascular disease 01/2002 PMH - PAST MEDICAL HISTORY OF wearing glasses and broke ankle at age 3, wrist fracture depression PAST SURGICAL HISTORY Procedure Laterality Date 2D ECHO COMPLETE INP 01/03/2015 EF=67%, WNL SNGL 07/22/2022 Current Facility-Administered Medications Medication Dose Route Frequency Provider Last Rate Last Admin DAPTOmycin 400 mg in NaCl 0.9% 50 mL (CUBICIN) 6 mg/kg/dose (Adjusted) INTRAVENOUS q 24 HR Duran Kern MD NaCl 0.9% iv flush bag 20 mL INTRAVENOUS PRN Sixto Kapadia MD ondansetron 4 mg tab(s) (ZOFRAN) 4 mg ORAL q 6 H PRN Sixto Kapadia MD Or ondansetron (PF) 4 mg injection (ZOFRAN) 4 mg INTRAVENOUS q 6 H PRN Sixto Kapadia MD acetaminophen 650 mg tab(s) (TYLENOL) 650 mg ORAL q 6 H PRN Sixto Kapadia MD clonazePAM 1 mg tab(s) (KlonoPIN) 1 mg ORAL DAILY PRN Sixto Kapadia MD divalproex ER 1,000 mg tab(s) (DEPAKOTE ER) 1,000 mg ORAL DAILY Sixto Kapadia MD 1,000 mg at 05/12/2539 escitalopram oxalate 20 mg tab(s) (LEXAPRO) 20 mg ORAL DAILY Sixto Kapadia MD 20 mg at 05/12/2539 lamoTRIgine 100 mg tab(s) (LaMICtal) 100 mg ORAL AT BEDTIME Sixto Kapadia MD 100 mg at 05/12/25118 meropenem 1 g in NaCl 0.9% 100 mL Vial-Bag (MERREM) 1 g INTRAVENOUS q 8 H Duran Kern MD Stopped at 05/12/25109 risperiDONE (RisperDAL) tab(s) 3 mg 3 mg ORAL AT BEDTIME Sixto Kapadia MD 3 mg at 05/12/2539 diphenhydrAMINE 50 mg injection (BENADRYL) 50 mg INTRAVENOUS q 6 H PRN Duran Kern MD 50 mg at 05/12/2539 ALLERGIES: Reviewed. SOCIAL HISTORY: The patient has exposure to passive smoking. Does not smoke herself. No active smoking. Rarely drinks alcohol. Denies any history of drug use. FAMILY HISTORY: Mother has asthma and bipolar disorder. Maternal grandfather with CABG x3. Paternal grandmother with breast cancer. PHYSICAL EXAMINATION: General: The patient is conscious, oriented, lying in bed, in no apparent distress at present. Vital Signs: Temperature of 97.7, pulse of 72, respiratory rate 17, blood pressure 116/66, 95% on room air. Weight is 88.5 kg, height is 5 feet 4 inches, BMI of 33.4. Skin: There is no evident rash. Neck: Supple. Oropharynx clear. No evidence of t (more content not included)... Normal [facility] CONSULT PROGon 05-11-2025 CONSULT PROG HNO ID: [id number] Author: DURAN KERN MD Service: Infectious Disease Author Type: Physician Type: Consult Progress Note Filed: 05/12/2025 02:59 Note Text: chart reviewed/ plan of care h/o nipple piercing done in September which was complicated by infection in December for which she was treated with multiple antibiotics. recurrence of the infection after she put her piercings back in January. multiple allergies reviewed plan -iv meropenem. ist dose with benadryl iv dapto in am x 1 mrsa screen.and follow cultures cul obtained Duran Kern MD 05/11/2025 ph:[phone] Normal [facility] metabolic 2000 panelon 05-11-2025 Albumin [Mass/Vol] 4.7 g/dL Normal 3.9-4.[address] [facility] Comment on above: Order Comment: Speci men Type: BLOOD SPECIMENOrdering Facility: [facility] Address: [address] [place] [address] Performed By: #### 2 432-8, ####[facility] LWIA [id number] [place] [address] [place] ALP [Catalytic activity/Vol] 120 U/L Normal 34-123 [facility] Comment on above: Order Comment: Speci men Type: BLOOD SPECIMENOrdering Facility: [facility] Address: [address] [place] [address] Performed By: #### 2 432-8, ####[facility] LWIA [id number] [place] [address] [place] ALT [Catalytic activity/Vol] 53 U/L High 7-38 [facility] Comment on above: Order Comment: Speci men Type: BLOOD SPECIMENOrdering Facility: [facility] Address: [address] [place] [address] Performed By: #### 2 432-8, ####[facility] LWCLIA [id number] [place] [id number] [place] Anion gap [Moles/Vol] 13 mmol/L Normal 8-15 [facility] Comment on above: Order Comment: Speci men Type: BLOOD SPECIMENOrdering Facility: [facility] Address: [address] [place] [address] Performed By: #### 2 4328, ####[facility] LWCLIA [id number] [place] [address] [place] AST [Catalytic activity/Vol] 37 U/L High 13-35 [facility] Comment on above: Order Comment: Speci men Type: BLOOD SPECIMENOrdering Facility: [facility] Address: [address] [place] [address] Performed By: #### 2 4323-8, ####[facility] LWCLIA [id number] [place] [id number] [place] Bilirubin [Mass/Vol] 0.3 mg/dL Normal 0.2-1.3 [facility] Comment on above: Order Comment: Speci men Type: BLOOD SPECIMENOrdering Facility: [facility] Address: [address] [place] [address] Performed By: #### 2 4323-8, ####[facility] LWCLIA [id number] [place] [id number] [place] Calcium [Mass/Vol] 9.2 mg/dL Normal 8.5-10.[address] [facility] Comment on above: Order Comment: Speci men Type: BLOOD SPECIMENOrdering Facility: [facility] Address: [address] [place] [address] Performed By: #### 2 4323-8, ####[facility] LWCLIA [id number] [place] [id number] [place] Chloride [Moles/Vol] 100 mmol/L Normal 98-107 [facility] Comment on above: Order Comment: Speci men Type: BLOOD SPECIMENOrdering Facility: [facility] Address: [address] [place] [address] Performed By: #### 2 4323-8, ####[facility] LWCLIA [id number] [place] [id number] [place] CO2 [Moles/Vol] 24 mmol/L Normal 22-30 [facility] Comment on above: Order Comment: Speci men Type: BLOOD SPECIMENOrdering Facility: [facility] Address: [address] [place] [address] Performed By: #### 2 4323-8, ####[facility] LWCLIA [id number] [place] [id number] [place] Creatinine [Mass/Vol] 0.80 mg/dL Normal 0.58-0.96 [facility] Comment on above: Order Comment: Speci men Type: BLOOD SPECIMENOrdering Facility: [facility] Address: [address] [place] [address] Performed By: #### 2 4323-8, ####[facility] LWCLIA [id number] [address] [place] Creatinine and Glomerular filtration rate.predicted panel (S/P/Bld) 99 mL/min/1.73m??? Normal >=60 [facility] Comment on above: Order Comment: Speci men Type: BLOOD SPECIMENOrdering Facility: [facility] Address: [address] [place] [address] Result Comment: Anne-Marie mated Glomerular Filtration Rate (eGFR) is calculated using the 2020 CKD-EPI creatinine equation. This equation utilizes serum creatinine, sex, and age as parameters. The creatinine assay has traceable calibration to isotope dilution-mass spectrometry. Refer to KDIGO guidelines for clinical interpretation. In patients with unstable renal function, e.g. those with acute kidney injury, the eGFR may not accurately reflect actual GFR. Performed By: #### 2 4323-8, ####[facility] LWCLIA [id number] [place] [id number] [place] Glucose [Mass/Vol] 90 mg/dL Normal 74-[address] [facility] Comment on above: Order Comment: Speci men Type: BLOOD SPECIMENOrdering Facility: [facility] Address: [address] [place] [address] Result Comment: The [place] Diabetes Association (ADA) provides guidance for cutoff values for fasting glucose and random glucose. The ADA defines fasting as no caloric intake for at least 8 hours. Fasting plasma glucose results between 100 to 125 mg/dL indicate increased risk for diabetes (prediabetes).Fasting plasma glucose results greater than or equal to 126 mg/dL meet the criteria for diagnosis of diabetes. In the absence of unequivocal hyperglycemia, results should be confirmed by repeat testing. In a patient with classic symptoms of hyperglycemia or hyperglycemic crisis, random plasma glucose results greater than or equal to 200 mg/dL meet the criteria for diagnosis of diabetes.Reference: Standards of Medical Care in Diabetes 2016, [place] [employer]. Diabetes Care. 2016.39(Suppl 1). Performed By: #### 2 4323-8, ####[facility] LWCLIA [id number] [place] [id number] [place] Potassium [Moles/Vol] 3.9 mmol/L Normal 3.7-5.1 [facility] Comment on above: Order Comment: Speci men Type: BLOOD SPECIMENOrdering Facility: [facility] Address: [address] [place] [address] Performed By: #### 2 43201-28, ####[facility] LWCLIA [id number] [place] [id number] [place] Protein [Mass/Vol] 7.6 g/dL Normal 6.3-8.[address] [facility] Comment on above: Order Comment: Speci men Type: BLOOD SPECIMENOrdering Facility: [facility] Address: [address] [place] [address] Performed By: #### 2 43201-28, ####[facility] LWCLIA [id number] [place] [address] [place] Sodium [Moles/Vol] 137 mmol/L Normal 136-[address] [facility] Comment on above: Order Comment: Speci men Type: BLOOD SPECIMENOrdering Facility: [facility] Address: [address] [place] [address] Performed By: #### 2 43238, ####[facility] LWCLIA [id number] [place] [address] [place] Urea nitrogen [Mass/Vol] 20 mg/dL Normal 7-21 [facility] Comment on above: Order Comment: Speci men Type: BLOOD SPECIMENOrdering Facility: [facility] Address: [address] [place] [address] Performed By: #### 2 4323-8, 36487-9 ####[facility] LWCLIA [id number] [place] [id number] [facility] ED NOTEon 05-11-2025 ED NOTE HNO ID: [id number] Author: JAJA NOE RN Service: ? Author Type: Registered Nurse Type: ED Notes Filed: 05/11/2025 21:58 Note Text: Report to MMT at bedside, pt transferred to [facility] with belongings in stable condition. Normal [facility] ED NOTE HNO ID: [id number] Author: JAJA NOE RN Service: ? Author Type: Registered Nurse Type: ED Notes Filed: 05/11/2025 21:31 Note Text: Report taken from Lebron BRADLEY. Pt waiting for transport. Normal [facility] ED NOTE HNO ID: [id number] Author: ABE ALCALA RN Service: Nursing Author Type: Registered Nurse Type: ED Notes Filed: 05/11/2025 21:17 Note Text: Report given to Brandon BRADLEY at [facility]. Pt awaiting MMT. Normal [facility] ED NOTE HNO ID: [id number] Author: ABE ALCALA RN Service: Nursing Author Type: Registered Nurse Type: ED Notes Filed: 05/11/2025 20:53 Note Text: Pt called staff to notify of red rash now on right breast. Normal [facility] ED NOTE Normal [facility] ED NOTE HNO ID: [id number] Author: ABE ALCALA RN Service: Nursing Author Type: Registered Nurse Type: ED Notes Filed: 05/11/2025 19:25 Note Text: Pt reports "slight itching to head." Provider notified. Normal [facility] ED PROV NOTEon 05-11-2025 ED PROV NOTE Normal [facility] HISTORY PHYSICALon 5 HISTORY PHYSICAL HNO ID: [id number] Author: SIXTO KAPADIA MD Service: Hospital Medicine Author Type: Physician Type: H&P Filed: 05/11/2025 23:22 Note Text: HOSPITAL MEDICINE HISTORY AND PHYSICAL EXAM PATIENT NAME: Rosalva Huang SERVICE DATE: 05/11/2025 SERVICE TIME: 11:16 PM Primary Care Physician: No primary care provider on file. NIGHT COVERAGE [id number] ASSESSMENT AND PLAN This is a 35 year old female with past medical history of bipolar disorder, multiple antibiotic allergies, who presented to the ED with left nipple discharge. Acute mastitis: Patient given vancomycin with Benadryl and had mild allergic/itching reaction to it. Patient has anaphylactic allergy to cephalosporin-Keflex, other allergies include clindamycin, doxycycline, Bactrim. Plan Will hold off antibiotics until ID consultation Follow-up on ultrasound left breast to rule out any underlying abscess Transaminitis: Mild could be due to fatty liver disease Patient denies any history of alcohol use Follow-up on ultrasound right upper quadrant Bipolar depression-continue with home educations including Depakote, Lexapro, Lamictal and risperidone. Active Hospital Problems Diagnosis Mastitis SUBJECTIVE CHIEF COMPLAINT: Mastitis HPI: This is a 35 year old female with past medical history of bipolar disorder, multiple antibiotic allergies, who presented to the ED with left nipple discharge. Patient symptoms started about 3 days ago when she noticed some yellowish discharge from the left nipple, yesterday she started having red streaking over the upper part of the breast. She had nipple piercing done in September which was complicated by infection in December for which she was treated with multiple antibiotics. After resolution of the infection patient again put her piercings back in January. She denies any associated fever, chills, nausea, vomiting or diarrhea. She is allergic to multiple antibiotics as listed above, she received IV vancomycin with Benadryl, but she had some mild itching on her scalp but no evidence of "red man" syndrome. She has no leukocytosis on labs. Mild transaminitis noted otherwise lab work is unremarkable. PAST MEDICAL HISTORY: PAST MEDICAL HISTORY Diagnosis Date Endometriosis 10/26/2014 never had diagnostic lap to confirm, patient did not want surgery NIKKIE (generalized anxiety disorder) Gestational diabetes mellitus (GDM) affecting second (HCC) 05/25/2022 Infertility, female Migraine without aura and without status migrainosus, not intractable 07/18/2019 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[facility]) 08/27/2015 Panic disorder without agoraphobia PMH - PAST MEDICAL HISTORY OF vascular disease 01/2002 PMH - PAST MEDICAL HISTORY OF wearing glasses and broke ankle at age 3, wrist fracture depression PAST SURGICAL HISTORY: PAST SURGICAL HISTORY Procedure Laterality Date 2D ECHO COMPLETE INP 01/03/2015 EF=67%, WNL SNGL 07/22/2022 FAMILY HISTORY: FAMILY HISTORY Problem Relation Age of Onset Asthma Mother Psychiatry Mother Bi-Polar Hypertension Maternal Grandmother Heart Maternal Grandfather triple by pass heart diagnosed in Stroke Paternal Grandmother Cancer Paternal Grandmother Breast Cancer Paternal Grandmother Heart Paternal Grandfather heart attack. . Emphysema Paternal Grandfather Diabetes Other maternal side Ovarian cancer Paternal cousin Prostate Cancer Maternal Uncle SOCIAL HISTORY: Social History Tobacco Use Smoking status: Never Passive exposure: Never Smokeless tobacco: Never Tobacco comments: Pt denies Vaping Use Vaping status: Never Used Substance Use Topics Alcohol use: Yes Comment: rare Drug use: No Comment: Pt denies MEDICATIONS: Reviewed ALLERGIES: ALLERGIES Allergen Reactions Clindamycin Hives Diffuse hives and angioedema of upper lip within 30 minutes of receiving 1st dose. Doxycycline Hives Diffuse hives 30 minutes after 1st dose. Diffuse hives and x1 episode of emesis 30 minutes after 2nd dose. Fluconazole Rash Required IV diphenhydramine 01/06/2025 Keflex [Cephalexin] Anaphylaxis 03/13/2025 Tolerated graded dose amoxicillin challenge Diffuse rash with upper lip and tongue swelling 15 minutes after first dose. Onion GI Upset Sulfamethoxazole-Tr* Hives Vancomycin Itching Flushing and pruritus consistent with vancomycin infusion reaction. Please refer to Allergy note from 01/05/2025 for details. Adhesive Tape (Rita* Rash, Itching Patient reports unable to tolerate band-aids after a procedure. She noted redness and itching at site of band aid. Mosquitos Swelling Promethazine Unknown Other Reaction(s): GI Upset Sunscreen Rash Tingle tanning lotion Zyrtec [Cetirizine * Hives, Other: See Comments Hives and palpitations within 30 minutes of 1st dose. Tolerates Benadryl without issue. No contraindication to trying other a (more content not included)... Normal [facility] Magnesium SerPl-mCncon 05-11 Magnesium [Mass/Vol] 2.4 mg/dL High 1.7-2.3 [facility] Comment on above: Order Comment: Speci men Type: BLOOD SPECIMENOrdering Facility: [facility] Address: [address] [place] [address] Performed By: #### 2 4323-8, 90944-7 ####FRENCH CREEKHENRY [facility] [id number] [place] [address] [place] SEPSIS LACTATE W/ REFLEX (IN ITIAL)on 05-11-2025 Lactate [Moles/Vol] 0.9 mmol/L Normal <=2.0 [facility] Comment on above: Order Comment: Speci men Type: BLOOD SPECIMENOrdering Facility: [facility] Address: [address] [place] [address] Performed By: #### S LACTR ####[facility] [id number] [place] [address] [place] TRYPTASE BLOODon 05-11-2025 Tryptase [Mass/Vol] 3.0 ug/L Normal <8.4 [facility] Comment on above: Order Comment: Speci men Type: BLOOD SPECIMENOrdering Facility: [facility] Address: [address] [place] [address] Performed By: #### T RYPT ####[facility] LABCLIA [id number] [place] [address] [place] BACTERIAL VAGINOSIS NAATon 0 04-19-2025 Lactobacillus crispatus+gasseri+analia senii + Gardnerella vaginalis + Atopobium vaginae rRNA LAURA+probe Ql (Vag fld) Detected Abnormal Not detected [facility] Comment on above: Order Comment: Speci men Type: SWABOrdering Facility: [facility] Address: [address] [place] [address] Performed By: #### B VAMP, CVTV ####[facility] LABCLIA [id number] [place] [address] [place] Bacteria Ur Culton Bacteria identified Cx Nom (U) Abnormal [facility] Comment on above: Performed By: #### 6 30-4 ####[facility] LABCLIA [id number] [place] [address] [place] ALESSANDRA/TRICHOMONAS NAATon 0 04-19-2025 C. glabrata RNA LAURA+probe Ql (Vag fld) Not detected Normal Not detected [facility] Comment on above: Order Comment: Speci men Type: SWABOrdering Facility: [facility] Address: [address] [place] [address] Performed By: #### B VAMP, CVTV ####[facility] LABCLIA [id number] [address] [place] Alessandra sp DNA LAURA+probe Ql (Vag fld) Detected Abnormal Not detected [facility] Comment on above: Order Comment: Speci men Type: SWABOrdering Facility: [facility] Address: [address] [place] [address] Result Comment: The Alessandra species group target includes C. albicans, C. tropicalis, C. parapsilosis, and C. dubliniensis. Performed By: #### B VAMP, CVTV ####[facility] LABCLIA [id number] [address] [place] T. vaginalis DNA LAURA+probe Ql (Unsp spec) Not detected Normal Not detected [facility] Comment on above: Order Comment: Speci men Type: SWABOrdering Facility: [facility] Address: [address] [place] [address] Performed By: #### B VAMP, CVTV ####[facility] LABCLIA [id number] [facility] [place] [address] [place] CNOVon 04-19-2025 CNOV Normal [facility] UA DIP, URINE (POC)on 2024 BILIRUBIN UA (POCT) Negative Negative [facility] CLARITY UA (POCT) Slightly Cloudy Cl [facility] COLOR UA (POCT) Yellow [facility] GLUCOSE UA (POCT) Negative Negative mg/dL [facility] Hemoglobin Ql (U) Trace-lysed Abnormal Negative [facility] Interpretation and review of laboratory results Abnormal [facility] KETONE UA (POCT) Negative Negative mg/dL [facility] LEUKOCYTES UA (POCT) Large Abnormal Negative [facility] NITRITE UA (POCT) Negative Negative [facility] PH UA (POCT) 6 4.5 - 8.0 [facility] Protein Ql (U) Negative Negative mg/dL [facility] SPECIFIC GRAVITY UA (POCT) 1.02 1.005 - 1.030 [facility] UROBILINOGEN UA (POCT) 0.2 Normal E.U./dL [facility] Location:[place], [facility] [place], [address] [facility] POINT [facility] CARE [facility] CNOVon 03-29-2025 CNOV Normal [facility] Bacteria Ur Culton Bacteria identified Cx Nom (U) Normal [facility] Comment on above: Performed By: #### 2 4356-8 ####[facility] LWCLIA [id number] [place] [address] [place]#### 630-4 ####[facility] LABCLIA [id number] [address] [place] CBC W Auto Differential pane l (Bld)on 03-28-2025 Basophils (Bld) [#/Vol] 0.04 10*3/uL Normal <0.11 [facility] Comment on above: Order Comment: Speci men Type: BLOOD SPECIMENOrdering Facility: [facility] Address: [address] [place] [address] Performed By: #### 5 7021-8 ####[facility] LWCLIA [id number] [address] [place] Basophils/100 WBC (Bld) 0.4 % Normal [facility] Comment on above: Order Comment: Speci men Type: BLOOD SPECIMENOrdering Facility: [facility] Address: [address] [place] [address] Performed By: #### 5 7021-8 ####[facility] LWCLIA [id number] [place] [address] [place] Differential cell count method Nom (Bld) Auto Normal [facility] Comment on above: Order Comment: Speci men Type: BLOOD SPECIMENOrdering Facility: [facility] Address: [address] [place] [address] Performed By: #### 5 7021-8 ####[facility] LWCLIA [id number] [place] [address] [place] Eosinophils (Bld) [#/Vol] 0.25 10*3/uL Normal <0.46 [facility] Comment on above: Order Comment: Speci men Type: BLOOD SPECIMENOrdering Facility: [facility] Address: [address] [place] [address] Performed By: #### 5 7021-8 ####[facility] LWCLIA [id number] [address] STATES OF [facility] Eosinophils/100 WBC (Bld) 2.8 % Normal [facility] Comment on above: Order Comment: Speci men Type: BLOOD SPECIMENOrdering Facility: [facility] Address: [address] [place] [address] Performed By: #### 5 7021-8 ####[facility] LWCLIA [id number] [place] [address] [place] Erythrocyte distribution width (RBC) [Ratio] 13.8 % Normal 11.5-15.0 [facility] Comment on above: Order Comment: Speci men Type: BLOOD SPECIMENOrdering Facility: [facility] Address: [address] [place] [address] Performed By: #### 5 7021-8 ####[facility] LWCLIA [id number] [place] [id number] [place] Hematocrit (Bld) [Volume fraction] 42.9 % Normal 36.0-46.0 [facility] Comment on above: Order Comment: Speci men Type: BLOOD SPECIMENOrdering Facility: [facility] Address: [address] [place] [address] Performed By: #### 5 7021-8 ####[facility] LWCLIA [id number] [place] [address] [place] Hemoglobin (Bld) [Mass/Vol] 14.1 g/dL Normal 11.5-15.5 [facility] Comment on above: Order Comment: Speci men Type: BLOOD SPECIMENOrdering Facility: [facility] Address: [address] [place] [address] Performed By: #### 5 7021-8 ####[facility] LWCLIA [id number] [place] [address] [place] Immature granulocytes (Bld) [#/Vol] 0.15 10*3/uL High <0.10 [facility] Comment on above: Order Comment: Speci men Type: BLOOD SPECIMENOrdering Facility: [facility] Address: [address] [place] [address] Performed By: #### 5 7021-8 ####[facility] LWCLIA [id number] [place] [id number] [place] Immature granulocytes/100 WBC (Bld) 1.7 % Normal [facility] Comment on above: Order Comment: Speci men Type: BLOOD SPECIMENOrdering Facility: [facility] Address: [address] [place] [address] Performed By: #### 5 7021-8 ####[facility] LWCLIA [id number] [place] [id number] [place] Lymphocytes (Bld) [#/Vol] 2.55 10*3/uL Normal 1.00-4.00 [facility] Comment on above: Order Comment: Speci men Type: BLOOD SPECIMENOrdering Facility: [facility] Address: [address] [place] [address] Performed By: #### 5 7021-8 ####[facility] LWCLIA [id number] [address] [facility] Lymphocytes/100 WBC (Bld) 28.1 % Normal [facility] Comment on above: Order Comment: Speci men Type: BLOOD SPECIMENOrdering Facility: [facility] Address: [address] [place] [address] Performed By: #### 5 7021-8 ####[facility] LWIA [id number] [place] [address] [place] MCH (RBC) [Entitic mass] 29.6 pg Normal 26.0-34.0 [facility] Comment on above: Order Comment: Speci men Type: BLOOD SPECIMENOrdering Facility: [facility] Address: [address] [place] [address] Performed By: #### 5 7021-8 ####[facility] LWCLIA [id number] [place] [address] [place] MCHC (RBC) [Mass/Vol] 32.9 g/dL Normal 30.5-36.0 [facility] Comment on above: Order Comment: Speci men Type: BLOOD SPECIMENOrdering Facility: [facility] Address: [address] [place] [address] Performed By: #### 5 7021-8 ####[facility] LWCLIA [id number] [place] [id number] [place] MCV (RBC) [Entitic vol] 90.1 fL Normal 80.0-100.0 [facility] Comment on above: Order Comment: Speci men Type: BLOOD SPECIMENOrdering Facility: [facility] Address: [address] [place] [address] Performed By: #### 5 7021-8 ####[facility] LWCLIA [id number] [place] [id number] [place] Monocytes (Bld) [#/Vol] 0.76 10*3/uL Normal <0.87 [facility] Comment on above: Order Comment: Speci men Type: BLOOD SPECIMENOrdering Facility: [facility] Address: [address] [place] [address] Performed By: #### 5 7021-8 ####[facility] LWCLIA [id number] [place] [id number] [place] Monocytes/100 WBC (Bld) 8.4 % Normal [facility] Comment on above: Order Comment: Speci men Type: BLOOD SPECIMENOrdering Facility: [facility] Address: [address] [place] [address] Performed By: #### 5 7021-8 ####[facility] LWCLIA [id number] [place] [address] [place] Neutrophils (Bld) [#/Vol] 5.31 10*3/uL Normal 1.45-7.50 [facility] Comment on above: Order Comment: Speci men Type: BLOOD SPECIMENOrdering Facility: [facility] Address: [address] [place] [address] Performed By: #### 5 7021-8 ####[facility] LWCLIA [id number] [place] [id number] [place] Neutrophils/100 WBC (Bld) 58.6 % Normal [facility] Comment on above: Order Comment: Speci men Type: BLOOD SPECIMENOrdering Facility: [facility] Address: [address] [place] [address] Performed By: #### 5 7021-8 ####[facility] LWCLIA [id number] [place] [id number] [place] Nucleated RBC (Bld) [#/Vol] 10*3/uL Normal <0.01 [facility] Comment on above: Order Comment: Speci men Type: BLOOD SPECIMENOrdering Facility: [facility] Address: [address] [place] [address] Performed By: #### 5 7021-8 ####[facility] LWCLIA [id number] [place] [id number] [facility] Nucleated RBC/100 WBC (Bld) [Ratio] 0.0 /100 WBC Normal [facility] Comment on above: Order Comment: Speci men Type: BLOOD SPECIMENOrdering Facility: [facility] Address: [address] [place] [address] Performed By: #### 5 7021-8 ####[facility] LWCLIA [id number] [place] [address] [place] Platelet mean volume (Bld) [Entitic vol] 9.9 fL Normal 9.0-12.7 [facility] Comment on above: Order Comment: Speci men Type: BLOOD SPECIMENOrdering Facility: [facility] Address: [address] [place] [address] Performed By: #### 5 7021-8 ####[facility] LWCLIA [id number] [place] [address] [place] Platelets (Bld) [#/Vol] 273 10*3/uL Normal 150-400 [facility] Comment on above: Order Comment: Speci men Type: BLOOD SPECIMENOrdering Facility: [facility] Address: [address] [place] [address] Performed By: #### 5 7021-8 ####[facility] LWCLIA [id number] [place] [id number] [place] RBC (Bld) [#/Vol] 4.76 10*6/uL Normal 3.90-5.20 [facility] Comment on above: Order Comment: Speci men Type: BLOOD SPECIMENOrdering Facility: [facility] Address: [address] [place] [address] Performed By: #### 5 7021-8 ####[facility] LWCLIA [id number] [place] [address] [place] WBC (Bld) [#/Vol] 9.06 10*3/uL Normal 3.70-11.00 [facility] Comment on above: Order Comment: Speci men Type: BLOOD SPECIMENOrdering Facility: [facility] Address: [address] [place] [address] Performed By: #### 5 7021-8 ####[facility] LWCLIA [id number] [place] [address] [place] CT ABD/PEL W IVCONon 025 CT ABD/PEL W IVCON Normal [facility] Comprehensive metabolic 2000 panelon 03-28-2025 Albumin [Mass/Vol] 4.5 g/dL Normal 3.9-4.[address] [facility] Comment on above: Order Comment: Speci men Type: BLOOD SPECIMENOrdering Facility: [facility] Address: [address] [place] [address] Performed By: #### 2 4323-8, ####[facility] LWCLIA [id number] [place] [id number] [place] [facility] ALP [Catalytic activity/Vol] 127 U/L High 34-123 [facility] Comment on above: Order Comment: Speci men Type: BLOOD SPECIMENOrdering Facility: [facility] Address: [address] [place] [address] Performed By: #### 2 4323-8, ####[facility] LWCLIA [id number] [place] [id number] [place] ALT [Catalytic activity/Vol] 49 U/L High 7-38 [facility] Comment on above: Order Comment: Speci men Type: BLOOD SPECIMENOrdering Facility: [facility] Address: [address] [place] [address] Performed By: #### 2 4323-8, ####[facility] LWCLIA [id number] [place] [address] [place] Anion gap [Moles/Vol] 11 mmol/L Normal 8-15 [facility] Comment on above: Order Comment: Speci men Type: BLOOD SPECIMENOrdering Facility: [facility] Address: [address] [place] [address] Performed By: #### 2 4323-8, ####[facility] LWCLIA [id number] [place] [id number] [place] AST [Catalytic activity/Vol] 27 U/L Normal 13-35 [facility] Comment on above: Order Comment: Speci men Type: BLOOD SPECIMENOrdering Facility: [facility] Address: [address] [place] [address] Performed By: #### 2 432-8, ####[facility] LWCLIA [id number] [place] [address] [place] Bilirubin [Mass/Vol] 0.4 mg/dL Normal 0.2-1.3 [facility] Comment on above: Order Comment: Speci men Type: BLOOD SPECIMENOrdering Facility: [facility] Address: [address] [place] [address] Performed By: #### 2 4323-8, ####[facility] LWCLIA [id number] [place] [address] [place] Calcium [Mass/Vol] 9.0 mg/dL Normal 8.5-10.[address] [facility] Comment on above: Order Comment: Speci men Type: BLOOD SPECIMENOrdering Facility: [facility] Address: [address] [place] [address] Performed By: #### 2 4323-8, ####FRENCH CREEKHENRY [facility] LWCLIA [id number] [place] [id number] [place] Chloride [Moles/Vol] 102 mmol/L Normal 98-107 [facility] Comment on above: Order Comment: Speci men Type: BLOOD SPECIMENOrdering Facility: [facility] Address: [address] [place], [place] [address] Performed By: #### 2 4323-8, ####[facility] LWCLIA [id number] [place] [id number] [place] CO2 [Moles/Vol] 26 mmol/L Normal 22-30 [facility] Comment on above: Order Comment: Speci men Type: BLOOD SPECIMENOrdering Facility: [facility] Address: [address] [place] [address] Performed By: #### 2 4323-8, ####[facility] LWCLIA [id number] [place] [id number] [place] Creatinine [Mass/Vol] 0.84 mg/dL Normal 0.58-0.96 [facility] Comment on above: Order Comment: Speci men Type: BLOOD SPECIMENOrdering Facility: [facility] Address: [address] [place] [address] Performed By: #### 2 4323-8, ####[facility] LWCLIA [id number] [place] [id number] [place] Creatinine and Glomerular filtration rate.predicted panel (S/P/Bld) 94 mL/min/1.73m??? Normal >=60 [facility] Comment on above: Order Comment: Speci men Type: BLOOD SPECIMENOrdering Facility: [facility] Address: [address] [place] [address] Result Comment: Anne-Marie mated Glomerular Filtration Rate (eGFR) is calculated using the 2020 CKD-EPI creatinine equation. This equation utilizes serum creatinine, sex, and age as parameters. The creatinine assay has traceable calibration to isotope dilution-mass spectrometry. Refer to KDIGO guidelines for clinical interpretation. In patients with unstable renal function, e.g. those with acute kidney injury, the eGFR may not accurately reflect actual GFR. Performed By: #### 2 4323-8, ####[facility] LWCLIA [id number] [place] [id number] [place] Glucose [Mass/Vol] 89 mg/dL Normal 74-[address] [facility] Comment on above: Order Comment: Speci men Type: BLOOD SPECIMENOrdering Facility: [facility] Address: [address] [place], [place] [id number] Result Comment: The [place] Diabetes [employer] (ADA) provides guidance for cutoff values for fasting glucose and random glucose. The ADA defines fasting as no caloric intake for at least 8 hours. Fasting plasma glucose results between 100 to 125 mg/dL indicate increased risk for diabetes (prediabetes).Fasting plasma glucose results greater than or equal to 126 mg/dL meet the criteria for diagnosis of diabetes. In the absence of unequivocal hyperglycemia, results should be confirmed by repeat testing. In a patient with classic symptoms of hyperglycemia or hyperglycemic crisis, random plasma glucose results greater than or equal to 200 mg/dL meet the criteria for diagnosis of diabetes.Reference: Standards of Medical Care in Diabetes 2016, [place] [employer]. Diabetes Care. 2016.39(Suppl 1). Performed By: #### 2 4323-8, ####[facility] LWCLIA [id number] [place] [id number] [place] Potassium [Moles/Vol] 4.0 mmol/L Normal 3.7-5.1 [facility] Comment on above: Order Comment: Darvini men Type: BLOOD SPECIMENOrdering Facility: [facility] Address: [address] [place] [address] Performed By: #### 2 4323-8, ####[facility] LWCLIA [id number] [place] [id number] [place] Protein [Mass/Vol] 7.2 g/dL Normal 6.3-8.[address] [facility] Comment on above: Order Comment: Speci men Type: BLOOD SPECIMENOrdering Facility: [facility] Address: [address] [place] [address] Performed By: #### 2 4323-8, ####[facility] LWCLIA [id number] [place] [address] [place] Sodium [Moles/Vol] 139 mmol/L Normal 136-[address] [facility] Comment on above: Order Comment: Speci men Type: BLOOD SPECIMENOrdering Facility: [facility] Address: [address] [place] [address] Performed By: #### 2 4323-8, ####[facility] LWCLIA [id number] [place] [id number] [place] [facility] Urea nitrogen [Mass/Vol] 14 mg/dL Normal 7-21 [facility] Comment on above: Order Comment: Speci men Type: BLOOD SPECIMENOrdering Facility: [facility] Address: [address] [place] [address] Performed By: #### 2 4323-8, ####[facility] LWCLIA [id number] [address] OF [facility] ED NOTEon 03-28-2025 ED NOTE Normal [facility] ED NOTE HNO ID: [id number] Author: AINSLEY ROBERTS RN Service: Nursing Author Type: Registered Nurse Type: ED Notes Filed: 03/28/2025 16:03 Note Text: Patient requesting IV Aant jade NP and Dr. Skinner aware. Normal [facility] ED PROV NOTEon 03-28-2025 ED PROV NOTE Normal [facility] Magnesium SerPl-mCncon 03-28 Magnesium [Mass/Vol] 2.3 mg/dL Normal 1.7-2.3 [facility] Comment on above: Order Comment: Speci men Type: BLOOD SPECIMENOrdering Facility: [facility] Address: [address] [place] [address] Performed By: #### 2 4323-8, ####[facility] LWCLIA [id number] [place] [id number] [facility] Urinalysis complete panel (U )on 03-28-2025 Bacteria LM.HPF (Urine sed) [#/Area] Moderate Abnormal None Seen [facility] Comment on above: Order Comment: Speci men Type: URINE SPECIMENOrdering Facility: [facility] Address: [address] [place] [address] Performed By: #### 2 4356-8 ####[facility] LWCLIA [id number] [place] [address] [place]#### 630-4 ####[facility] LABCLIA [id number] [place] [address] [place] Bilirubin Ql (U) Negative Normal Negative [facility] Comment on above: Order Comment: Speci men Type: URINE SPECIMENOrdering Facility: [facility] Address: [address] [place] [address] Performed By: #### 2 4356-8 ####[facility] LWCLIA [id number] [place] [address] [place]#### 630-4 ####[facility] LABCLIA [id number] [place] [address] [place] Clarity (Unsp spec) Cloudy Abnormal Clear [facility] Comment on above: Order Comment: Speci men Type: URINE SPECIMENOrdering Facility: [facility] Address: [address] [place] [address] Performed By: #### 2 4356-8 ####[facility] LWCLIA [id number] [place] [address] [place]#### 630-4 ####[facility] LABCLIA [id number] [place] [address] [place] Color (U) Yellow Normal Yellow [facility] Comment on above: Order Comment: Speci men Type: URINE SPECIMENOrdering Facility: [facility] Address: [address] [place] [address] Performed By: #### 2 4356-8 ####[facility] LWCLIA [id number] [place] [address] [place]#### 630-4 ####[facility] LABCLIA [id number] [place] [address] [place] Epithelial cells LM.HPF (Urine sed) [#/Area] Few Normal [facility] Comment on above: Order Comment: Speci men Type: URINE SPECIMENOrdering Facility: [facility] Address: [address] [place] [address] Performed By: #### 2 4356-8 ####[facility] LWCLIA [id number] [place] [address] [place]#### 630-4 ####[facility] LABCLIA [id number] [place] [address] [place] Glucose Test strip (U) [Mass/Vol] Negative Normal Negative [facility] Comment on above: Order Comment: Speci men Type: URINE SPECIMENOrdering Facility: [facility] Address: [address] [place] [address] Performed By: #### 2 4356-8 ####[facility] LWCLIA [id number] [place] [address] [place]#### 630-4 ####[facility] LABCLIA [id number] [place] [address] [place] Hemoglobin Ql (U) 3+ Abnormal Negative [facility] Comment on above: Order Comment: Speci men Type: URINE SPECIMENOrdering Facility: [facility] Address: [address] [place] [address] Performed By: #### 2 4356-8 ####[facility] LWCLIA [id number] [place] [address] [place]#### 630-4 ####[facility] LABCLIA [id number] [place] [id number] [place] Ketones Ql (U) Negative Normal Negative [facility] Comment on above: Order Comment: Speci men Type: URINE SPECIMENOrdering Facility: [facility] Address: [address] [place] [address] Performed By: #### 2 4356-8 ####[facility] LWCLIA [id number] [place] [address] [place] [facility]#### 630-4 ####[facility] LABCLIA [id number] [address] [place] Leukocyte esterase Test strip Ql (U) 1+ Abnormal Negative [facility] Comment on above: Order Comment: Speci men Type: URINE SPECIMENOrdering Facility: [facility] Address: [address] [place] [address] Performed By: #### 2 4356-8 ####[facility] LWCLIA [id number] [place] [address] [place] [facility]#### 630-4 ####[facility] LABCLIA [id number] [address] [place] Nitrite Ql (U) Negative Normal Negative [facility] Comment on above: Order Comment: Speci men Type: URINE SPECIMENOrdering Facility: [facility] Address: [address] [place] [address] Performed By: #### 2 4356-8 ####[facility] LWCLIA [id number] [place] [address] [place]#### 630-4 ####[facility] LABCLIA [id number] [place] [id number] [place] pH (U) 6.0 [pH] Normal 5.0-8.0 [facility] Comment on above: Order Comment: Speci men Type: URINE SPECIMENOrdering Facility: [facility] Address: [address] [place] [address] Performed By: #### 2 4356-8 ####[facility] LWCLIA [id number] [place] [address] [place]#### 630-4 ####[facility] LABCLIA [id number] [place] [address] [place] Protein (U) [Mass/Vol] 2+ Abnormal Negative [facility] Comment on above: Order Comment: Speci men Type: URINE SPECIMENOrdering Facility: [facility] Address: [address] [place] [address] Performed By: #### 2 4356-8 ####[facility] LWCLIA [id number] [place] [address] [place]#### 630-4 ####[facility] LABCLIA [id number] [place] [address] [place] RBC LM.HPF (Urine sed) [#/Area] /[HPF] Abnormal 0-3 /HPF [facility] Comment on above: Order Comment: Speci men Type: URINE SPECIMENOrdering Facility: [facility] Address: [address] [place] [address] Performed By: #### 2 4356-8 ####[facility] LWCLIA [id number] [place] [address] [place]#### 630-4 ####[facility] LABCLIA [id number] [place] [address] [place] Specific gravity (U) [Rel density] 1.025 Normal 1.005-1.030 [facility] Comment on above: Order Comment: Speci men Type: URINE SPECIMENOrdering Facility: [facility] Address: [address] [place] [address] Performed By: #### 2 4356-8 ####[facility] LWCLIA [id number] [place] [address] [place]#### 630-4 ####[facility] LABCLIA [id number] [place] [address] [place] Urobilinogen Ql (U) 0.2 EU/dL Normal 0.2-1.0 EU/dL Cl [facility] Comment on above: Order Comment: Speci men Type: URINE SPECIMENOrdering Facility: [facility] Address: [address] [place] [address] Performed By: #### 2 4356-8 ####[facility] LWIA [id number] [place] [address] [place]#### 630-4 ####[facility] LABCLIA [id number] [place] [address] [place] WBC LM.HPF (Urine sed) [#/Area] /[HPF] Abnormal 0-5 /HPF [facility] Comment on above: Order Comment: Speci men Type: URINE SPECIMENOrdering Facility: [facility] Address: [address] [place] [address] Performed By: #### 2 4356-8 ####[facility] LWCLIA [id number] [place] [address] [place]#### 630-4 ####[facility] LABCLIA [id number] [address] [place] ED NOTEon 03-20-2025 ED NOTE HNO ID: [id number] Author: JAJA NOE RN Service: ? Author Type: Registered Nurse Type: ED Notes Filed: 03/20/2025 20:20 Note Text: Normal [facility] ED NOTE Normal [facility] ED NOTE HNO ID: [id number] Author: JAJA NOE RN Service: ? Author Type: Registered Nurse Type: ED Notes Filed: 03/20/2025 20:18 Note Text: Normal [facility] ED NOTE Normal [facility] ED NOTE Normal [facility] ED PROV NOTEon 03-20-2025 ED PROV NOTE Normal [facility] CNPNon 03-17-2025 CNPN Telephone ([facility]) ----- ROSALVA HUANG ([id number]) 1990 F [facility] Date Time Provider Department 03/17/25 JÚNIOR PRICE During your visit today, we recorded the following information about you: Rosa Issa 03/17/2025 11:32 AM Signed [email or web address] No-Show Documentation Rosalva A Reina no showed for an appointment on 03/17/2025 with Júnior Price MD. at 10:00. The patient was was scheduled for a [facility] follow up. I called and spoke with the patient regarding missed appointment. Yes The patient stated the reason that they missed the appointment was because forgot about appointment . Resources discussed/offered to patient: Yes No show determined to be fault of patient: Yes This is the patients first no show in the last 12 months. Patient was rescheduled for 03/23/2025. Letter mailed regular mail AND certified : No regular mail only Is this the Third or Fourth "No Show"? Ledy Issa March 17, 2025 11:31 AM Allergies As of Date: 03/17/2025 Noted Allergy Reaction CLINDAMYCIN 01/05/2025 4 - Hives Comments: Diffuse hives and angioedema of upper lip within 30 minutes of receiving 1st dose. DOXYCYCLINE 01/06/2025 4 - Hives Comments: Diffuse hives 30 minutes after 1st dose. Diffuse hives and x1 episode of emesis 30 minutes after 2nd dose. FLUCONAZOLE 01/08/2025 2 - Rash Comments: Required IV diphenhydramine 01/06/2025 KEFLEX (CEPHALEXIN) 02/27/2025 10 - Anaphylaxis Comments: 03/13/2025 Tolerated graded dose amoxicillin challenge Diffuse rash with upper lip and tongue swelling 15 minutes after first dose. ONION 05/25/2022 8 - GI Upset SULFAMETHOXAZOLE-TRIMETHO PRIM 02/28/2025 4 - Hives VANCOMYCIN 01/02/2025 9 - Itching Comments: Flushing and pruritus consistent with vancomycin infusion reaction. Please refer to Allergy note from 01/05/2025 for details. ADHESIVE TAPE (ROSINS) 12/28/2018 2 - Rash 9 - Itching Comments: Patient reports unable to tolerate band-aids after a procedure. She noted redness and itching at site of band aid. MOSQUITOS 02/04/2006 7 - Swelling SUNSCREEN 11/13/2015 2 - Rash Comments: Tingle tanning lotion ZYRTEC (CETIRIZINE HCL) 02/16/2019 4 - Hives 14 - Other: See Comments Comments: Hives and palpitations within 30 minutes of 1st dose. Tolerates Benadryl without issue. No contraindication to trying other antihistamines such as Arthur or Claritin. Date Reviewed: 03/13/2025 Reviewed by: Sissy Felton APRN.[employer] - Fully Assessed Prescriptions as of 03/17/2025 - acetaminophen (TYLENOL) 500 mg tablet Take 1 tablet by mouth every 6 hours as needed for pain. - diphenhydrAMINE (BENADRYL) 50 mg capsule Take 1 capsule by mouth every 6 hours as needed for itching/rash. - EPINEPHrine (EPIPEN 2-RICK) 0.3 mg/0.3 mL auto-injector Inject 0.3 mL intramuscularly as needed. - famotidine (PEPCID) 20 mg tablet Take 1 tablet by mouth two times a day. - fexofenadine (ARTHUR) 180 mg tablet Take 2 tablets by mouth two times a day. - prochlorperazine (COMPAZINE) 10 mg tablet Take 1 tablet by mouth every 6 hours as needed for nausea/vomiting. - EPINEPHrine (EPIPEN) 0.3 mg/0.3 mL auto-injector Inject 0.3 mL intramuscularly as needed (for analphylactic reaction). - escitalopram oxalate (LEXAPRO) 20 mg tablet Take 20 mg by mouth once daily. - clonazePAM (KLONOPIN) 1 mg tablet Take 1 mg by mouth once daily as needed for anxiety. - lamoTRIgine (LAMICTAL) 200 mg tablet Take 1 tablet by mouth once daily. - risperiDONE (RISPERDAL) 2 mg tablet Take 2 mg by mouth daily at bedtime. - risperiDONE (RISPERDAL) 0.5 mg tablet Take 0.5 mg by mouth daily at bedtime. Facility-Administered Medications as of 03/17/2025 - onabotulinum toxin type A 200 Units injection (BOTOX) Problem List As Of Date 03/17/2025 Noted Resolved Other protein-calorie malnutrition [E46] 04/06/2006 09/17/2020 Routine gynecological examination [Z01.419] 10/26/2014 09/17/2020 Endometriosis [N80.9] 10/26/2014 10/16/2020 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HCC) [F31.61] 08/27/2015 Centromere antibody positive [R76.8] 02/16/2019 09/17/2020 CHATO positive [R76.8] 02/16/2019 09/17/2020 Itching [L29.9] 02/16/2019 09/17/2020 Drug eruption [L27.0] 02/16/2019 01/13/2025 Vomiting, persistent, in adult [R11.15] 02/16/2019 09/17/2020 Migraine without aura and without status migrai*07/18/2019 Peripheral vertigo [H81.399] 07/18/2019 09/17/2020 Encounter for supervision of normal first pregn*09/17/2020 05/07/2021 History of drug use [F19.91] 09/17/2020 Rubella non-immune status, antepartum [O09.899,*10/16/2020 05/07/2021 Admitted to labor and delivery [Z78.9] 04/16/2021 05/07/2021 Full-term premature rupture of membranes [O42.9*04/16/2021 05/07/2021 (spontaneous vaginal delivery) [O80] 04/17/2021 05/07/2021 Panic disorder without agoraphobia [F41.0] 05/28/2021 Anxiety state [F41.1] 05/28/2021 Adjustment disorder with (more content not included)... Normal [facility] CNOVon 03-13-2025 CNOV Normal [facility] Absolute neutrophil countOrd ered By: Araseli Babb on 03-10-2025 Neutrophils (Bld) [#/Vol] 6.4 10*3/uL 2.0-7.7 [facility] Anion gap in Serum or Plasma Ordered By: Araseli Babb on 03-10-2025 Anion gap [Moles/Vol] 11 mmol/L 5- [facility] BUN/creatinine ratioOrdered By: Araseli Babb on 03-10-2025 Urea nitrogen/Creatinine [Mass ratio] 17.6 mg/mg - [facility] Basic Metabolic Profile (BMP )on 03-10-2025 BUN/CRE 17.6 RATIO Normal - [facility] Comment on above: Performed By: #### L 500.2500, L100.0100, L501.5200, L501.3620 #### [facility] [address] [place], [address] Calcium [Mass/Vol] 8.4 mg/dL Normal 7.6-11.0 [facility] Comment on above: Performed By: #### L 500.2500, L100.0100, L501.5200, L501.3620 #### [facility] [address] [place], [address] Chloride [Moles/Vol] 103 mmol/L Normal 98-108 [facility] Comment on above: Performed By: #### L 500.2500, L100.0100, L501.5200, L501.3620 #### [facility] [address] [place], [address] CO2 [Moles/Vol] 24.6 mmol/L Normal 21.0-32.0 [facility] Comment on above: Performed By: #### L 500.2500, L100.0100, L501.5200, L501.3620 #### [facility] [address] [place], [address] Creatinine [Mass/Vol] 0.90 mg/dL Normal 0.70-1.20 [facility] Comment on above: Performed By: #### L 500.2500, L100.0100, L501.5200, L501.3620 #### [facility] [address] [place], [address] ECRCL 92.74 ml/min Normal 50-250 [facility] Comment on above: Performed By: #### L 500.2500, L100.0100, L501.5200, L501.3620 #### [facility] [address] [place], [address] GAP 11 Normal 5-15 [facility] Comment on above: Performed By: #### L 500.2500, L100.0100, L501.5200, L501.3620 #### [facility] [address] [place], [address] GFR/1.73 sq M.predicted among non-blacks MDRD (S/P/Bld) [Vol rate/Area] 86 mL/min/{1.73_m2} Normal >60 [facility] Comment on above: Result Comment: mL/m in/1.73m2 CKD-EPI Creatinine Equation (2020) Performed By: #### L 500.2500, L100.0100, L501.5200, L501.3620 #### [facility] [address] [place], [address] Glucose [Mass/Vol] 114 mg/dL High 70-99 [facility] Comment on above: Performed By: #### L 500.2500, L100.0100, L501.5200, L501.3620 #### [facility] [address] [place], [address] Potassium [Moles/Vol] 3.5 mmol/L Normal 3.3-5.1 [facility] Comment on above: Performed By: #### L 500.2500, L100.0100, L501.5200, L501.3620 #### [facility] [address] [place], [address] Sodium [Moles/Vol] 139 mmol/L Normal 133-145 [facility] Comment on above: Performed By: #### L 500.2500, L100.0100, L501.5200, L501.3620 #### [facility] [address] [place], [address] Urea nitrogen [Mass/Vol] 16 mg/dL Normal 4-19 [facility] Comment on above: Performed By: #### L 500.2500, L100.0100, L501.5200, L501.3620 #### [facility] [address] [place], [address] Blood band neutrophil count as percentage of total leukocytesOrdered By: Araseli Babb on 03-10-2025 Band form neutrophils/100 WBC (Bld) 3 % 0-5 [facility] Blood eosinophils/100 leukoc ytesOrdered By: Araseli Babb on 03-10-2025 Eosinophils/100 WBC (Bld) 2 % 0-5 [facility] Blood lymphocytes/100 leukoc ytesOrdered By: Araseli Babb on 03-10-2025 Lymphocytes/100 WBC (Bld) 35 % 19-41 [facility] Blood monocytes/100 leukocyt esOrdered By: Araseli Babb on 03-10-2025 Monocytes/100 WBC (Bld) 6 % 0-10 [facility] CBC W/Diff, Automatedon 02-21 Absolute Lymph 3.92 X10 3/uL Normal 0.83-4.51 [facility] Comment on above: Performed By: #### L 500.2500, L100.0100, L501.5200, L501.3620 #### [facility] [address] [place], [address] Absolute Neut 6.4 X10 3/uL Normal 2.0-7.7 [facility] Comment on above: Performed By: #### L 500.2500, L100.0100, L501.5200, L501.3620 #### [facility] [address] [place], [address] PLT EST ADEQUATE Normal ADEQ [facility] Comment on above: Performed By: #### L 500.2500, L100.0100, L501.5200, L501.3620 #### [facility] [address] [place], [address] RED CELL MORPH NORM C+C Normal NORM C C [facility] Comment on above: Performed By: #### L 500.2500, L100.0100, L501.5200, L501.3620 #### [facility] [address] [place], [address] BAND 3 Normal 0-5 [facility] Comment on above: Performed By: #### L 500.2500, L100.0100, L501.5200, L501.3620 #### [facility] [address] [place], [address] Eosinophils/100 WBC (Bld) 2 % Normal 0-5 [facility] Comment on above: Performed By: #### L 500.2500, L100.0100, L501.5200, L501.3620 #### [facility] [address] [place], [address] Lymphocytes (Bld) [#/Vol] 35 10*3/uL Normal 19-41 [facility] Comment on above: Performed By: #### L 500.2500, L100.0100, L501.5200, L501.3620 #### [facility] [address] [place], [address] MONOCYTE 6 Normal 0-10 [facility] Comment on above: Performed By: #### L 500.2500, L100.0100, L501.5200, L501.3620 #### [facility] [address] [place], [address] SEGS 54 Normal 47-70 [facility] Comment on above: Performed By: #### L 500.2500, L100.0100, L501.5200, L501.3620 #### [facility] [address] [place], [address] TOTAL CELLS 100 Normal MANUAL DIFF [facility] Comment on above: Performed By: #### L 500.2500, L100.0100, L501.5200, L501.3620 #### [facility] [address] [place], [address] CPK Total, Creatine Kinaseon 03-10-2025 CPK TOTAL 127 U/L Normal 24-195 [facility] Comment on above: Performed By: #### L 500.2500, L100.0100, L501.5200, L501.3620 #### [facility] [address] [place], [address] CRPon 03-10-2025 C-REACTIVE PROT 5.98 mg/L High 0.0-3.0 [facility] Comment on above: Performed By: #### L 501.6710, L101.9900 #### [facility] [address] [place], [address] CRP [Mass/Vol]Ordered By: Stephen Zuniga on 03-10-2025 C-Reactive Protein Extended Range 5.98 mg/L High 0.0-3.0 [facility] Carbon dioxide, total [Moles /volume] in Central venous bloodOrdered By: Araseli Babb on 03-10-2025 CO2 [Moles/Vol] 24.6 mmol/L 21.0-32.0 [facility] Cells counted Molgen (Bld/Ti ss) [#]Ordered By: Araseli Babb on 03-10-2025 Differential Total Cells Counted 100 MANUAL DIFF [facility] Chloride assayOrdered By: Eamon Babb on 03-10-2025 Chloride [Moles/Vol] 103 mmol/L 98-108 [facility] Emergency Department Summary on 03-10-2025 Emergency Department Summary [facility] Medical Records Department [address] [place] [address] Emergency Department Summary 03/10/25 MR#: [id number] Acct: [id number] Name: ROSALVA HUANG Rep #: [id number] : 1990 35 From: Araseli Babb DO PCP: Care Physician,No Primary Status:REG ER Location: ED HPI History of Present Illness Chief Complaint: Lower Extremity Injury Informant: patient Narrative Narrative: Patient is a 35-year-old female with 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 Patient states she woke up and was having severe pain in her bilateral legs. She woke up at 3 AM. She states she could not walk and fell because the pain was so bad. She was the left leg is worse than the right. She denies any trauma or injury. She describes the pain as severe and crushing. She states it seems to start in her mid thighs bilaterally and work its way down. She is not sure if she has any swelling of her legs. She denies associated numbness. Denies any bowel or bladder incontinence. She denies any fever or chills. She states she moved to [place] yesterday the family. She is never any like this before. Did not take anything for symptoms prior arrival. No other complaints or concerns at this time. [facility] Medical History Bipolar disorder Gestational diabetes delivery delivered Breast abscess Home Medications ???Medication ???Instructions ???Recorded ???Last Taken ???Type albuterol sulfate 90 mcg/actuation 2 puff inhalation Q4H PRN PRN Unknown Rx aerosol inhaler (Ventolin HFA) Wheezing ##1 clonazepam 1 mg tablet 1 mg PO DAILY PRN anxiety 03/10/25 Unknown History epinephrine 0.3 mg/0.3 mL ml IM 03/10/25 Unknown History injection, auto-injector escitalopram oxalate 20 mg tablet 20 mg PO DAILY 03/10/25 Unknown H istory famotidine 20 mg tablet 20 mg PO BID 03/10/25 Unknown Hist ory lamotrigine 200 mg tablet 200 mg PO DAILY 04/18/25 Unknown H istory risperidone 0.5 mg tablet 0.5 mg PO QHS 03/10/25 Unknown His tory Allergy/AdvReac Type Severity Reaction Status Date / Time cephalexin AdvReac Rash Verified 03/10/25 06:15 clindamycin AdvReac Rash Verified 03/10/25 06:15 doxycycline AdvReac Rash Verified 03/10/25 06:15 vancomycin AdvReac Rash Verified 03/10/25 06:15 Social History household members: children Smoking Status: Never smoker substance use type: does not use ROS ROS ED Constitutional Constitutional ED: Denies chills or fever(s) Respiratory/Chest Respiratory/Chest: Denies cough or dyspnea Gastrointestinal Gastrointestinal: Denies nausea or vomiting Musculoskeletal Musculoskeletal: Reports myalgias and other Details: Bilateral lower leg pain Integumentary Denies rash Neurologic Neurologic: Denies paresthesias or weakness Hematologic/Lymphatic Hematologic/Lymphatic: Denies easy bleeding or easy bruising EXAM Physical Exam Const Vital Signs: 03/10/25 06:13 Temperature 98 F Temperature Source Temporal Pulse Rate 77 Respiratory Rate 17 Blood Pressure 121/76 H Blood Pressure Mean 91 Pulse Ox 99 Oxygen Delivery Method Room Air Positive well nourished and well developed General Appearance ED: well developed and NAD HEENT Reports moist mucous membranes HEENT Narrative: No facial swelling present normocephalic and atraumatic Neck supple Chest Wall inspection of chest normal Resp normal respiratory effort and clear to auscultation bilaterally Cardio regular rate and regular rhythm GI non-tender and non-distended Extremity normal to inspection Extremity Narrative: Patient is no obvious deformity of the extremities. No swelling. 2+ DP pulses present. Able to wiggle her toes. Has difficulty with movement of the legs but states is because it is too painful. No rash appreciated. No palpable cords. No edema. Neuro oriented x3, moves all extremities and no sensory deficits noted Sensorium / Orientation: alert Deep Tendon Reflexes: Rt Patellar (L4): 2+ and Lt Patellar (L4): 1+ Deep Tendon Reflexes Back: Rt Patellar (L4): 2+ and Lt Patellar (L4): 1+ Plantar Reflex: Downgoing: bilateral Psych mental status grossly normal Mood Affect: anxious Skin no wounds Skin Narrative: Multiple bruises on the upper arms consistent with prior IVs MDM MDM MDM Narrative Medical decision making narrative: Patient evaluated for severe lower extremity pain without any trauma. Her physical exam is relatively benign. She has had multiple frequent ER visits and hospitalizations at [facility] however they have been for allergi (more content not included)... Normal [facility] Erythrocyte Sed Rateon 03-10 SED RATE 8 mm/hr Normal 0-30 [facility] Comment on above: Performed By: #### L 501.6710, L101.9900 #### [facility] [address] [place], [address] Erythrocyte distribution wid th (RBC) [Ratio]Ordered By: Araseli Babb on 03-10-2025 Erythrocyte distribution width (RBC) [Entitic vol] 42.8 fL 35.1-43.9 [facility] Erythrocyte distribution wid th ratioOrdered By: Araseli Babb on 03-10-2025 Erythrocyte distribution width (RBC) [Ratio] 13.3 % 11.6-14.6 [facility] Erythrocyte sedimentation ra teOrdered By: Delano Zuniga on 03-10-2025 ESR (Bld) [Velocity] 8 mm/h 0-30 [facility] Estimation of creatinine tavo aranceOrdered By: Araseli Babb on 03-10-2025 Estimated Creatinine Clearance Calc 92.74 ml/min 50-250 [facility] GFR/1.73 sq M.predicted boyd g non-blacks MDRD (S/P/Bld) [Vol rate/Area]Ordered By: Araseli Babb on 03-10-2025 Estimated GFR (MDRD) Non-Af Amer 86 >60 [facility] Comment on above: mL/min/1.73m2 CKD-EP I Creatinine Equation (2020) Hematocrit Auto (Bld) [Volum e fraction]Ordered By: Araseli Babb on 03-10-2025 Hematocrit (Bld) [Volume fraction] 41.3 % 37-47 [facility] Hemoglobin measurementOrdere d By: Araseli Babb on 03-10-2025 Hemoglobin (Bld) [Mass/Vol] 14.0 g/dL 12.0-15.0 [facility] Lymphocytes Auto (Unsp spec) [#/Vol]Ordered By: Araseli Babb on 03-10-2025 Lymphocytes (Bld) [#/Vol] 3.92 10*3/uL 0.83-4.51 [facility] MCV (mean corpuscular volume ) determinationOrdered By: Araseli Babb on 03-10-2025 MCV (RBC) [Entitic vol] 87.5 fL 81-99 [facility] Magnesiumon 03-10-2025 Magnesium [Mass/Vol] 2.4 mg/dL High 1.5-2.2 [facility] Comment on above: Performed By: #### L 500.2500, L100.0100, L501.5200, L501.3620 #### [facility] [address] [place], [address] Magnesium (Unsp spec) [Mass/ Vol]Ordered By: Araseli Babb on 03-10-2025 Magnesium [Mass/Vol] 2.4 mg/dL High 1.5-2.2 [facility] Mean corpuscular hemoglobin (MCH) determinationOrdered By: Araseli Babb on 03-10-2025 MCH (RBC) [Entitic mass] 29.7 pg 27.0-32.0 [facility] Mean corpuscular hemoglobin concentration (MCHC) determinationOrdered By: Araseli Babb on 03-10-2025 MCHC (RBC) [Mass/Vol] 33.9 g/dL 32-36 [facility] Mean platelet volume determi nationOrdered By: Araseli Babb on 03-10-2025 Platelet mean volume (Bld) [Entitic vol] 9.8 fL 6.2-12.0 [facility] Neutrophil percentageOrdered By: Araseli Babb on 03-10-2025 Neutrophils (%) (Auto) Not Reportable [facility] Platelet countOrdered By: Eamon Babb on 03-10-2025 Platelets (Bld) [#/Vol] 299 10*3/uL 150-450 [facility] Platelets LM Ql (Bld)Ordered By: Araseli Babb on 03-10-2025 Platelet Estimate ADEQUATE ADEQ [facility] Potassium (Unsp spec) [Mass/ Vol]Ordered By: Araseli Babb on 03-10-2025 Potassium [Moles/Vol] 3.5 mmol/L 3.3-5.1 [facility] RBC Auto (Bld) [#/Vol]Ordere d By: Araseli Babb on 03-10-2025 RBC (Bld) [#/Vol] 4.72 10*6/uL 4.2-5.4 [facility] RBC morphology finding Nom ( Bld)Ordered By: Araseli Babb on 03-10-2025 Red Blood Cell Morphology NORM C+C NORMAL NORM C&C [facility] Segmented neutrophils/100 WB C (Bld)Ordered By: Araseli Babb on 03-10-2025 Neutrophils/100 WBC (Bld) 54 % 47-70 [facility] Serum creatinine measurement (mass/volume)Ordered By: Araseli Babb on 03-10-2025 Creatinine [Mass/Vol] 0.90 mg/dL 0.70-1.20 [facility] Serum glucose measurement (m ass/volume)Ordered By: Araseli Babb on 03-10-2025 Glucose [Mass/Vol] 114 mg/dL High 70-99 [facility] Serum or plasma calcium donte urement (mass/volume)Ordered By: Araseli Babb on 03-10-2025 Calcium [Mass/Vol] 8.4 mg/dL 7.6-11.0 [facility] Serum or plasma creatine kin ase activityOrdered By: Araseli Babb 03-10-2025 CK [Catalytic activity/Vol] 127 U/L 24-195 [facility] Serum or plasma urea nitroge n measurement (mass/volume)Ordered By: Araseli Babb on 03-10-2025 Urea nitrogen [Mass/Vol] 16 mg/dL 4-19 [facility] Sodium levelOrdered By: Zaire Babb on 03-10-2025 Sodium [Moles/Vol] 139 mmol/L 133-145 [facility] Venous Duplex US - Ammon Extre mon 03-10-2025 Venous Duplex US - Ammon Extrem [facility] [address] [place] [address] Venous Duplex US - Ammon Extrem 03/10/25 0808 MR#: [id number] Acct: [id number] Name: ROSALVA HUANG Rep #: [id number] : 1990 35 From: Melvin Ruiz MD Attending Dr: Status: DEP ER Ordering Dr: Araseli Babb DO Date: 03/10/25 Location: ED Sex: F C Admitted: Reason For Study Reason For Study: Bilateral leg pain RIGHT LEFT GSV is normal. GSV is normal. CFV is compressible, spontaneous, phasic, competent CFV is compressible, spontaneous, phasic, competent, and demonstrates normal augmentation. and demonstrates normal augmentation. FV is compressible, spontaneous, phasic, competent FV is compressible, spontaneous, phasic, competent and demonstrates normal augmentation. and demonstrates normal augmentation. POP V is compressible, spontaneous, phasic, competent POP V is compressible, spontaneous, phasic, competent and demonstrates normal augmentation. and demonstrates normal augmentation. T/P Trunk is compressible. T/P Trunk is compressible. PTV is compressible. PTV is compressible. RT PerV is compressible. LT PerV is compressible. Procedure This is a venous duplex using B-mode, color flow and spectral Doppler. Exam performed portable in ED. A preliminary report was called and/or faxed to Marisela BRADLEY. VL/Venous Duplex US - Ammon Extrem Interpretation Summary Deep veins of the lower extremities are bilaterally patent and compressible segmentally. There is no evidence of deep vein thrombosis on either side. Valvular competence appears intact within the proximal deep venous systems bilaterally. The great saphenous veins appear bilaterally patent and compressible segmentally. ___ Ordering Physician: Araseil Babb Performed By: Korina Jain RVT 03/10/252009 Date Melvin Ruiz MD CC: Dr. Araseli Babb, DO; No Primary Care Physician Date Dictated: 03/10/25807 Date Transcribed: 03/10/252009 [employer] Instructor: Signed Normal [facility] White blood cell (WBC) count Ordered By: rAaseli Babb on 03-10-2025 WBC (Bld) [#/Vol] 11.2 10*3/uL High 4.4-11.0 [facility] ED PROV NOTEon 03-09-2025 ED PROV NOTE Normal [facility] ED PROV NOTE Normal [facility] CNDSon 03-08-2025 CNDS HNO ID: [id number] Author: ANTONY SALTER MD Service: Hospital Medicine Author Type: Resident Type: Discharge Summary Filed: 03/08/2025 15:07 Note Text: ----- Attestation signed by Yajaira Mcclain MD at 03/08/2025 8:43 PM Patient was seen and examined, labs vitals were reviewed. I agree with the resident's findings and plan as documented and have discussed the case and management of the patient's care with the resident. Portions of this note including HPI, ROS, Assessment/plan and examination may been copied forward as to provide important historical information essential in contributing to medical decision making of today. Documentation has been reviewed and edited to support clinical decision making of today's encounter. I have performed the [id number] and relevant services for a total of < 30 minutes. Yajaira Mcclain MD ----- DISCHARGE SUMMARY PATIENT NAME: Rosalva Huang ADMISSION DATE: 03/07/2025 DISCHARGE DATE: 03/08/2025 ATTENDING PHYSICIAN: Yajaira Mcclain MD Code Status: Full Code PCP: No primary care provider on file. Highest Readmission Risk Score: 55 The 30 day readmissions risk score is derived from an internally validated risk model which evaluates patient level characteristics, utilization history, medication orders and lab results up until the day of discharge. Patients with a score of 39 or above are considered highest risk for readmission. Specific patient level drivers will be listed at the bottom of the summary. TRANSITIONS OF CARE CRITICAL ISSUES: GUIDO MEDICATION CHANGES: Prednisone for 3 more days and PRN Benadryl (home regimen) FOLLOW UP APPOINTMENTS: PCP and Allergy/immunology REASON FOR HOSPITALIZATION/PRINCIPAL DIAGNOSES: Allergic reaction HOSPITAL PROBLEMS: Principal Problem: At risk for allergic reaction to medication (POA: Yes) Resolved Problems: * No resolved hospital problems. * HOSPITAL COURSE: 35 years old female patient with past medical history of endometriosis, migraine headaches and anxiety who presents with concerns for allergic skin reaction after taking Keflex. Patient was given pepcid, started on Prednisone and PRN PO benadryl. Today, patient was doing well, symptoms improved. She was discharged back home on prednisone, pepcid and benadryl OPERATIONS/PROCEDURE DURING THIS HOSPITALIZATION: * No surgery found * None EKG CONSULTS DURING HOSPITALIZATION: Treatment Team: Attending Provider: Yajaira Mcclain MD Primary Service: 4, [facility] PATIENT CONDITION AT DISCHARGE: Stable DISCHARGE DISPOSITION: Home with Self Care Discharge Physical Exam: VITAL SIGNS: BP 139/83 Pulse 71 Temp 36.7 ?C (98.1 ?F) (Oral) Resp 16 Ht 162.6 cm (5' 4") Wt 81.7 kg (180 lb 1.9 oz) LMP (LMP Unknown) SpO2 96% BMI 30.92 kg/m? GENERAL: Alert, no distress, cooperative LUNGS: Lungs clear to auscultation, Good diaphragmatic excursion CARDIAC: Normal S1 and S2; no rubs, murmurs, or gallops ABDOMEN: Soft, nontender EXTREMITIES: Extremities normal, no deformities, edema, clubbing or skin discoloration. Good capillary refill., No ulcers NEURO: Grossly normal cognition, motor function, and cranial nerves III-XII PULSES: 2+ radial, 2+ carotid WOUND/SURGICAL SITE CARE: None SUPPLIES OR EQUIPMENT: None DIET: Resume pre-hospital diet ACTIVITY AND EXERCISE: Resume pre-hospital activity FOLLOW UP APPOINTMENTS: Future Appointments Date Time Provider Department Center 03/13/2025 10:00 AM Sissy Felton APRN.[employer] 7 [employer] TEACHER [facility] [place] [facility] 03/17/2025 10:00 AM Júnior Price MD [facility] J 03/17/2025 2:30 PM Jaja Moss APRN.CAGER OPERATOR [facility] ALLERGIES Allergen Reactions Clindamycin Hives Diffuse hives and angioedema of upper lip within 30 minutes of receiving 1st dose. Doxycycline Hives Diffuse hives 30 minutes after 1st dose. Diffuse hives and x1 episode of emesis 30 minutes after 2nd dose. Fluconazole Rash Required IV diphenhydramine 01/06/2025 Keflex [Cephalexin] Anaphylaxis Diffuse rash with upper lip and tongue swelling 15 minutes after first dose. Onion GI Upset Sulfamethoxazole-Tr* Hives Vancomycin Itching Flushing and pruritus consistent with vancomycin infusion reaction. Please refer to Allergy note from 01/05/2025 for details. Adhesive Tape (Rita* Rash, Itching Patient reports unable to tolerate band-aids after a procedure. She noted redness and itching at site of band aid. Mosquitos Swelling Sunscreen Rash Tingle tanning lotion Zyrtec [Cetirizine * Hives, Other: See Comments Hives and palpitations within 30 minutes of 1st dose. Tolerates Benadryl without issue. No contraindication to trying other antihistamines such as Arthur or Claritin. DISCHARGE MEDICATION: Medication List CONTINUE taking these medications (more content not included)... Normal [facility] ED NOTEon 03-08-2025 ED NOTE HNO ID: [id number] Author: KIM ESCOBAR CT Service: ? Author Type: Clinical Benefits Analyst Type: ED Notes Filed: 03/08/2025 21:40 Note Text: Pt declined updating vs Normal [facility] ED NOTE Normal [facility] ED NOTE Normal [facility] ED NOTE HNO ID: [id number] Author: SEUN WAITE RN Service: ? Author Type: Registered Nurse Type: ED Notes Filed: 03/08/2025 17:57 Note Text: AAOx3. Equal/Even resp rate.AMA Discharge instructions hi-lighted and reviewed with pt. Pt verbalized understanding. LIP Dr. Vazquez spoke with pt and educated pt on risks and reasoning for the care plan proposed. Will follow-up with physician as instructed. No questions/concerns at time of discharge. Ambulated at discharge without difficulty. Normal [facility] ED NOTE HNO ID: [id number] Author: JOSSELIN OSORIO RN Service: ? Author Type: Registered Nurse Type: ED Notes Filed: 03/08/2025 17:37 Note Text: Bed: 23-ED Expected date: Expected time: Means of arrival: [facility] (42) Comments: 35F allergic reaction Benadryl 50 mcg given 116/72, 102, 96% Normal [facility] ED PROV NOTEon 03-08-2025 ED PROV NOTE HNO ID: [id number] Author: ADELFO VAZQUEZ MD Service: ? Author Type: Physician Type: ED Provider Notes Filed: 03/08/2025 22:42 Note Text: Patient brought in by EMS ED Provider Note Patient Name: Rosalva Huang : 1990 SERVICE DATE: 03/08/25 History Patient presents with: Allergic Reaction: Pt recently admitted for allergic rx to keflex, was d/c today , was given steroid cream. Rash and itching on arm, 50 benadryl in squad. Epi pen around 1700. Patient brought in by EMS for concerns of an allergic reaction. No identifiable trigger. States that she throughout the recent offending Keflex prescription. Triage documentation states that she gave an EpiPen around 1700. EMS reportedly gave the patient 50 of IM Benadryl, as an IV cannot be obtained. On arrival, the patient is in no acute distress. She has the same erythematous rash over her chest and left arm that I appreciated during her last ER visit. No urticarial lesions. She is breathing comfortably on room air. Her lungs are clear to auscultation bilaterally. There is no obvious facial swelling. There is no obvious tongue swelling. There is no obvious edema in the posterior pharynx based on the limited view the patient will give me of her posterior oropharynx. Her clinical picture looks identical to when I saw her in the emergency department the other day. Patient notes a discomfort in her throat. She states that she still able to breathe comfortably. She also notes the rash. She essentially tells me that this has not gone away. Confirms that she did not take any Keflex today. I was very upfront with the patient told her that I would not be giving her any IV Benadryl. She asked if there is another provider present or if she can leave the emergency department. History provided by: Patient and EMS personnel park interpreter used: No PAST MEDICAL HISTORY Diagnosis Date Endometriosis 10/26/2014 never had diagnostic lap to confirm, patient did not want surgery NIKKIE (generalized anxiety disorder) Gestational diabetes mellitus (GDM) affecting second ([facility]) 05/25/2022 Infertility, female Migraine without aura and without status migrainosus, not intractable 07/18/2019 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HCC) 08/27/2015 Panic disorder without agoraphobia PMH - PAST MEDICAL HISTORY OF vascular disease 01/2002 PMH - PAST MEDICAL HISTORY OF wearing glasses and broke ankle at age 3, wrist fracture depression PAST SURGICAL HISTORY Procedure Laterality Date 2D ECHO COMPLETE INP 01/03/2015 EF=67%, WNL SNGL 07/22/2022 FAMILY HISTORY Problem Relation Age of Onset Asthma Mother Psychiatry Mother Bi-Polar Hypertension Maternal Grandmother Heart Maternal Grandfather triple by pass heart diagnosed in Stroke Paternal Grandmother Cancer Paternal Grandmother Breast Cancer Paternal Grandmother Heart Paternal Grandfather heart attack. . Emphysema Paternal Grandfather Diabetes Other maternal side Ovarian cancer Paternal cousin Prostate Cancer Maternal Uncle Social History Tobacco Use Smoking status: Never Passive exposure: Never Smokeless tobacco: Never Tobacco comments: Pt denies Vaping Use Vaping status: Never Used Substance and Sexual Activity Alcohol use: Yes Comment: rare Drug use: No Comment: Pt denies Sexual activity: Not Currently Partners: Male control/protection: Not used ALLERGIES Allergen Reactions Clindamycin Hives Diffuse hives and angioedema of upper lip within 30 minutes of receiving 1st dose. Doxycycline Hives Diffuse hives 30 minutes after 1st dose. Diffuse hives and x1 episode of emesis 30 minutes after 2nd dose. Fluconazole Rash Required IV diphenhydramine 01/06/2025 Keflex [Cephalexin] Anaphylaxis Diffuse rash with upper lip and tongue swelling 15 minutes after first dose. Onion GI Upset Sulfamethoxazole-Tr* Hives Vancomycin Itching Flushing and pruritus consistent with vancomycin infusion reaction. Please refer to Allergy note from 01/05/2025 for details. Adhesive Tape (Rita* Rash, Itching Patient reports unable to tolerate band-aids after a procedure. She noted redness and itching at site of band aid. Mosquitos Swelling Sunscreen Rash Tingle tanning lotion Zyrtec [Cetirizine * Hives, Other: See Comments Hives and palpitations within 30 minutes of 1st dose. Tolerates Benadryl without issue. No contraindication to trying other antihistamines such as Arthur or Claritin. Review of Systems Physical Exam Vitals [03/08/25 1738] BP Pulse Temp Temp src Resp SpO2 Weight Height 136/74 (!) 94 36.6 ?C (97.8 ?F) Oral 18 96 % 81.6 kg (180 lb) -- Physical Exam Vitals and nursing note reviewed. HENT: Head: Atraumatic. Mouth/Throat: Mouth: Mucous membranes are moist. Comments: Lips are maybe mildly edematous, and appear unchanged when I saw her sever (more content not included)... Normal [facility] ED Triage Noteon 03-08-2025 ED Triage Note Normal [facility] CBC panel Auto (Bld)on 03-07 Erythrocyte distribution width (RBC) [Ratio] 13.6 % Normal 11.5-15.0 [facility] Comment on above: Order Comment: Mookie roberts Type: BLOOD SPECIMEN Ordering Facility: [facility] Address: [address] [place] [address] Performed By: #### 4 091-5 #### [facility] CLIA [id number] [place] [address] [place] Hematocrit (Bld) [Volume fraction] 44.3 % Normal 36.0-46.0 [facility] Comment on above: Order Comment: Mookie roberts Type: BLOOD SPECIMEN Ordering Facility: [facility] Address: [address] [place] [address] Performed By: #### 4 091-5 #### [facility] CLIA [id number] [address] [place] [address] [place] Hemoglobin (Bld) [Mass/Vol] 14.8 g/dL Normal 11.5-15.5 [facility] Comment on above: Order Comment: Speci men Type: BLOOD SPECIMEN Ordering Facility: [facility] Address: [address] [place] [address] Performed By: #### 4 091-5 #### [facility] CLIA [id number] [address] [place] [address] [place] MCH (RBC) [Entitic mass] 29.2 pg Normal 26.0-34.0 [facility] Comment on above: Order Comment: Speci men Type: BLOOD SPECIMEN Ordering Facility: [facility] Address: [address] [place] [address] Performed By: #### 4 091-5 #### [facility] CLIA [id number] [address] [place] [address] [place] MCHC (RBC) [Mass/Vol] 33.4 g/dL Normal 30.5-36.0 [facility] Comment on above: Order Comment: Speci men Type: BLOOD SPECIMEN Ordering Facility: [facility] Address: [address] [place] [address] Performed By: #### 4 091-5 #### [facility] CLIA [id number] [address] [place] [address] [place] MCV (RBC) [Entitic vol] 87.4 fL Normal 80.0-100.0 [facility] Comment on above: Order Comment: Speci men Type: BLOOD SPECIMEN Ordering Facility: [facility] Address: [address] [place] [address] Performed By: #### 4 091-5 #### [facility] CLIA [id number] [address] [place] [address] [place] Nucleated RBC (Bld) [#/Vol] 10*3/uL Normal <0.01 [facility] Comment on above: Order Comment: Speci men Type: BLOOD SPECIMEN Ordering Facility: [facility] Address: [address] [place] [address] Performed By: #### 4 091-5 #### [facility] CLIA [id number] [address] [place] [address] [place] Platelet mean volume (Bld) [Entitic vol] 9.9 fL Normal 9.0-12.7 [facility] Comment on above: Order Comment: Speci men Type: BLOOD SPECIMEN Ordering Facility: [facility] Address: [address] [place] [address] Performed By: #### 4 091-5 #### [facility] CLIA [id number] [place] [address] [place] Platelets (Bld) [#/Vol] 346 10*3/uL Normal 150-400 [facility] Comment on above: Order Comment: Speci men Type: BLOOD SPECIMEN Ordering Facility: [facility] Address: [address] [place] [address] Performed By: #### 4 091-5 #### [facility] CLIA [id number] [address] [place] [address] [place] RBC (Bld) [#/Vol] 5.07 10*6/uL Normal 3.90-5.20 [facility] Comment on above: Order Comment: Speci men Type: BLOOD SPECIMEN Ordering Facility: [facility] Address: [address] [place] [address] Performed By: #### 4 091-5 #### [facility] CLIA [id number] [address] [place] [address] [place] WBC (Bld) [#/Vol] 14.01 10*3/uL High 3.70-11.00 [facility] Comment on above: Order Comment: Speci men Type: BLOOD SPECIMEN Ordering Facility: [facility] Address: [address] [place] [address] Performed By: #### 4 091-5 #### [facility] CLIA [id number] [place] [address] [place] Negin 03-07-2025 TIKI Telephone (FVPRAD) ----- REINAROSALVA ([id number]) 1990 F Date Time Provider Department 03/07/25 SHELLY ROTH FVPRACathie During your visit today, we recorded the following information about you: Shelly Roth 03/07/2025 7:30 AM Signed Accepted transfer from [place] ED to [facility]: Briefly, 35 years old female with prior Hx of anaphylaxis with recurrent angioedema (recent admission at [facility]) who presented to [place] ED for evaluation of an allergic reaction concerning for anaphylaxis after taking Keflex (Hx of allergy) at home by mistake per patient. She was seen earlier at [facility] and received EpiPen and Pepcid. However, she left AMA after she was not given IV Benadryl. She then presented to [place] ED for evaluation of similar symptoms including rash, lip swelling and oropharyngeal discomfort. Patient was assessed by ED provider and had no concerns for airway compromise or hemodynamic instability. She was given EpiPen, antihistamines and steroids with some improvement. Given recent admission and concerns for allergic reaction, ED provider requested admission to [facility] for observation. Case was discussed with CDU and they deferred the transfer to hospital medicine service. Patient has been accepted to [facility] for observation and further management. Per ED provider, there is also a concern for secondary gain and falsifying symptoms as patient is making frequent requests for IV Benadryl. Please see hands of section for further signout. Shelly Roth MD [facility] Medicine Allergies As of Date: 03/07/2025 Noted Allergy Reaction CLINDAMYCIN 01/05/2025 4 - Hives Comments: Diffuse hives and angioedema of upper lip within 30 minutes of receiving 1st dose. DOXYCYCLINE 01/06/2025 4 - Hives Comments: Diffuse hives 30 minutes after 1st dose. Diffuse hives and x1 episode of emesis 30 minutes after 2nd dose. FLUCONAZOLE 01/08/2025 2 - Rash Comments: Required IV diphenhydramine 01/06/2025 KEFLEX (CEPHALEXIN) 02/27/2025 10 - Anaphylaxis Comments: Diffuse rash with upper lip and tongue swelling 15 minutes after first dose. ONION 05/25/2022 8 - GI Upset SULFAMETHOXAZOLE-TRIMETHO PRIM 02/28/2025 4 - Hives VANCOMYCIN 01/02/2025 9 - Itching Comments: Flushing and pruritus consistent with vancomycin infusion reaction. Please refer to Allergy note from 01/05/2025 for details. ADHESIVE TAPE (ROSINS) 12/28/2018 2 - Rash 9 - Itching Comments: Patient reports unable to tolerate band-aids after a procedure. She noted redness and itching at site of band aid. MOSQUITOS 02/04/2006 7 - Swelling PHENERGAN (PROMETHAZINE HCL) 05/15/2018 8 - GI Upset SUNSCREEN 11/13/2015 2 - Rash Comments: Tingle tanning lotion ZYRTEC (CETIRIZINE HCL) 02/16/2019 4 - Hives 14 - Other: See Comments Comments: Hives and palpitations within 30 minutes of 1st dose. Tolerates Benadryl without issue. No contraindication to trying other antihistamines such as Arthur or Claritin. Date Reviewed: 03/07/2025 Reviewed by: Lisa Preciado, MIRNA - Fully Assessed Prescriptions as of 03/07/2025 - diphenhydrAMINE (BENADRYL) 50 mg capsule Take 1 capsule by mouth every 6 hours as needed for itching/rash. - EPINEPHrine (EPIPEN 2-RICK) 0.3 mg/0.3 mL auto-injector Inject 0.3 mL intramuscularly as needed. - famotidine (PEPCID) 20 mg tablet Take 1 tablet by mouth two times a day. - fexofenadine (ARTHUR) 180 mg tablet Take 2 tablets by mouth two times a day. - predniSONE (DELTASONE) 50 mg Take 1 tablet by mouth once daily for 4 doses. Patient should start on March 04, 2025. - prochlorperazine (COMPAZINE) 10 mg tablet Take 1 tablet by mouth every 6 hours as needed for nausea/vomiting. - EPINEPHrine (EPIPEN) 0.3 mg/0.3 mL auto-injector Inject 0.3 mL intramuscularly as needed (for analphylactic reaction). - escitalopram oxalate (LEXAPRO) 20 mg tablet Take 20 mg by mouth once daily. - clonazePAM (KLONOPIN) 1 mg tablet Take 1 mg by mouth once daily as needed for anxiety. - acetaminophen (TYLENOL) 500 mg tablet Take 2 tablets by mouth four times a day as needed for pain or fever (specify temp.). Do not exceed 8 tablets (4 grams) in a 24 hour period - lamoTRIgine (LAMICTAL) 200 mg tablet Take 1 tablet by mouth once daily. - risperiDONE (RISPERDAL) 2 mg tablet Take 2 mg by mouth daily at bedtime. - risperiDONE (RISPERDAL) 0.5 mg tablet Take 0.5 mg by mouth at bedtime as needed. Facility-Administered Medications as of 03/07/2025 - NaCl 0.9% iv flush bag - onabotulinum toxin type A 200 Units injection (BOTOX) Problem List As Of Date 03/07/2025 Noted Resolved Other protein-calorie malnutrition [E46] 04/06/2006 09/17/2020 Routine gynecological examination [Z01.419] 10/26/2014 09/17/2020 Endometriosis [N80.9] 10/26/2014 10/16/2020 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HCC) [F31.61] (more content not included)... Normal [facility] Comprehensive metabolic 2000 panelon 03-07-2025 Albumin [Mass/Vol] 4.6 g/dL Normal 3.9-4.9 [facility] Comment on above: Order Comment: Speci men Type: SWAB Ordering Facility: [facility] Address: [address] [place] [address] Performed By: #### S APCR #### [facility] CLIA [id number] [address] [place] [address] [place] ALP [Catalytic activity/Vol] 146 U/L High 34-123 [facility] Comment on above: Order Comment: Speci men Type: SWAB Ordering Facility: [facility] Address: [address] [place] [address] Performed By: #### S APCR #### [facility] CLIA [id number] [address] [id number] [address] [place] ALT [Catalytic activity/Vol] 43 U/L High 7-38 [facility] Comment on above: Order Comment: Speci men Type: SWAB Ordering Facility: [facility] Address: [address] [place] [address] Performed By: #### S APCR #### [facility] CLIA [id number] [address] [place] [address] [place] Anion gap [Moles/Vol] 12 mmol/L Normal 8-15 [facility] Comment on above: Order Comment: Speci men Type: SWAB Ordering Facility: [facility] Address: [address] [place] [address] Performed By: #### S APCR #### [facility] CLIA [id number] [address] [place] [address] [place] AST [Catalytic activity/Vol] 18 U/L Normal 13-35 [facility] Comment on above: Order Comment: Speci men Type: SWAB Ordering Facility: [facility] Address: [address] [place] [address] Performed By: #### S APCR #### [facility] CLIA [id number] [address] [place] [address] [place] Bilirubin [Mass/Vol] 0.3 mg/dL Normal 0.2-1.3 [facility] Comment on above: Order Comment: Speci men Type: SWAB Ordering Facility: [facility] Address: [address] [place] [address] Performed By: #### S APCR #### [facility] CLIA [id number] [address] [place] [address] [place] Calcium [Mass/Vol] 9.2 mg/dL Normal 8.5-10.2 [facility] Comment on above: Order Comment: Speci men Type: SWAB Ordering Facility: [facility] Address: [address] [place] [address] Performed By: #### S APCR #### [facility] CLIA [id number] [address] [place] [address] [place] Chloride [Moles/Vol] 104 mmol/L Normal 98-107 [facility] Comment on above: Order Comment: Speci men Type: SWAB Ordering Facility: [facility] Address: [address] [place] [address] Performed By: #### S APCR #### [facility] CLIA [id number] [address] [place] [address] [place] CO2 [Moles/Vol] 22 mmol/L Normal 22-30 [facility] Comment on above: Order Comment: Speci men Type: SWAB Ordering Facility: [facility] Address: [address] [place] [address] Performed By: #### S APCR #### [facility] CLIA [id number] [address] [place] [address] [place] Creatinine [Mass/Vol] 0.57 mg/dL Low 0.58-0.96 [facility] Comment on above: Order Comment: Speci men Type: SWAB Ordering Facility: [facility] Address: [address] [place] [address] Performed By: #### S APCR #### [facility] CLIA [id number] [address] [place] [address] [place] Creatinine and Glomerular filtration rate.predicted panel (S/P/Bld) 122 mL/min/1.73m??? Normal >=60 [facility] Comment on above: Order Comment: Speci men Type: SWAB Ordering Facility: [facility] Address: [address] [place] [address] Result Comment: Anne-Marie mated Glomerular Filtration Rate (eGFR) is calculated using the 2020 CKD-EPI creatinine equation. This equation utilizes serum creatinine, sex, and age as parameters. The creatinine assay has traceable calibration to isotope dilution-mass spectrometry. Refer to KDIGO guidelines for clinical interpretation. In patients with unstable renal function, e.g. those with acute kidney injury, the eGFR may not accurately reflect actual GFR. Performed By: #### S APCR #### [facility] CLIA [id number] [address] [place] [address] [place] Glucose [Mass/Vol] 94 mg/dL Normal 74-99 [facility] Comment on above: Order Comment: Speci men Type: SWAB Ordering Facility: [facility] Address: [address] [place] [address] Result Comment: The [place] Diabetes Association (ADA) provides guidance for cutoff values for fasting glucose and random glucose. The ADA defines fasting as no caloric intake for at least 8 hours. Fasting plasma glucose results between 100 to 125 mg/dL indicate increased risk for diabetes (prediabetes). Fasting plasma glucose results greater than or equal to 126 mg/dL meet the criteria for diagnosis of diabetes. In the absence of unequivocal hyperglycemia, results should be confirmed by repeat testing. In a patient with classic symptoms of hyperglycemia or hyperglycemic crisis, random plasma glucose results greater than or equal to 200 mg/dL meet the criteria for diagnosis of diabetes. Reference: Standards of Medical Care in Diabetes 2016, [place] Diabetes Association. Diabetes Care. 2016.39(Suppl 1). Performed By: #### S APCR #### [facility] CLIA [id number] [address] [place] [address] [place] Potassium [Moles/Vol] 4.1 mmol/L Normal 3.7-5.1 [facility] Comment on above: Order Comment: Speci men Type: SWAB Ordering Facility: [facility] Address: [address] [place] [address] Performed By: #### S APCR #### [facility] CLIA [id number] [address] [place] [address] [place] Protein [Mass/Vol] 8.0 g/dL Normal 6.3-8.0 [facility] Comment on above: Order Comment: Speci men Type: SWAB Ordering Facility: [facility] Address: [address] [place] [address] Performed By: #### S APCR #### [facility] CLIA [id number] [address] [place] [address] [place] Sodium [Moles/Vol] 138 mmol/L Normal 136-144 [facility] Comment on above: Order Comment: Speci men Type: SWAB Ordering Facility: [facility] Address: [address] [place] [address] Performed By: #### S APCR #### [facility] CLIA [id number] [address] [place] [address] [place] Urea nitrogen [Mass/Vol] 13 mg/dL Normal 7-21 [facility] Comment on above: Order Comment: Speci men Type: SWAB Ordering Facility: [facility] Address: [address] [place] [address] Performed By: #### S APCR #### [facility] CLIA [id number] [address] [place] [address] [place] ECG COMPLETEon 03-07-2025 ECG COMPLETE Ventricular Rate : 7 5 BPM Atrial Rate : 75 BPM P-R Interval : 143 ms QRS Duration : 78 ms Q-T Interval : 379 ms QTC Calculation(Bazett) : 424 ms Calculated P Farwell : 3 degrees Calculated R Farwell : 29 degrees Calculated T Farwell : 3 degrees Sinus rhythm Normal ECG Confirmed by LARISSA HUNG MD ([id number]) on 03/08/2025 12:59:32 PM NAME : ROSALVA HUANG PID : [id number] : 1990 Gender : Female Race : ORD : [id number] Procedure Date : Mar 07 2025 13:24:33 Edit Date : Mar 08 2025 12:59:32 Diagnosis: Sinus rhythm Normal ECG Confirmed by LARISSA HUNG MD ([id number]) on 03/08/2025 12:59:32 PM Test Reason : Chest Pain Location : 400 : FVEKG 0508 Overread By : LARISSA HUNG MD Edited By : LARISSA HUNG MD Referred By : EM THOMPSON Acquired by : MICHELLE LOZADA [facility] ED NOTEon 03-07-2025 ED NOTE Normal [facility] ED NOTE Normal [facility] ED NOTE HNO ID: [id number] Author: RICHARD MATAMOROS RN Service: Nursing Author Type: Registered Nurse Type: ED Notes Filed: 03/07/2025 08:12 Note Text: Pt report received from MIRNA Dennison. PT is in stable condition. Pt assessed. No s/s distress. Normal [facility] ED NOTE HNO ID: [id number] Author: TINO BARBOSA RN Service: ? Author Type: Registered Nurse Type: ED Notes Filed: 03/07/2025 03:38 Note Text: LIP at bedside Normal [facility] ED NOTE Normal [facility] ED PROV NOTEon 03-07-2025 ED PROV NOTE Normal [facility] ED PROV NOTE Normal [facility] HISTORY PHYSICALon HISTORY PHYSICAL HNO ID: [id number] Author: YAJAIRA MCCLAIN MD Service: Hospital Medicine Author Type: Resident Type: H&P Filed: 03/07/2025 17:01 Note Text: ----- Attestation with edits by Yajaira Mcclain MD at 03/07/2025 5:01 PM Patient was seen and examined, labs vitals were reviewed. I agree with the resident's findings and plan as documented and have discussed the case and management of the patient's care with the resident. Portions of this note including HPI, ROS, Assessment/plan and examination may been copied forward as to provide important historical information essential in contributing to medical decision making of today. Documentation has been reviewed and edited to support clinical decision making of today's encounter. Yajaira Mcclain MD ----- [facility] MEDICINE HISTORY AND PHYSICAL EXAM SERVICE DATE: 03/07/2025 SERVICE TIME: 2:45 PM Primary Care Physician: No primary care provider on file. NIGHT AND WEEKEND COVERAGE: [facility]:TEAM 4-7: Days [phone] please secure chat or page Antony Salter MD for patient issues. Nights [phone] please page [phone]. Subjective Rosalva Huang is a 35 year old female with past medical history significant for endometriosis, migraine headaches, bipolar disorder and anxiety who presented initially to [place] emergency department for concerns of allergic reaction. Patient has a known allergy to Keflex that causes " diffuse rash and lip swelling". She has been on it previously for breast infection. Patient states that yesterday, she accidentally took Keflex instead of Clonazepam (as both pills have the same color). She then started to feel uncomfortable and has some itching thus she went to the emergency department for evaluation Patient was recently admitted to [facility] on 03/04/2025 to 03/06/2025 for concerns of allergic reaction and angioedema. Patient was given 2 doses of epinephrine prophylaxis does, a dose of Solu-Medrol IV, Pepcid and frequent doses of Benadryl in addition to a liter of fluids. She had a flexible fiberoptic laryngoscopy done that showed no masses, lesions or bleeding sources. No pooling of secretions or edema were noted. Patient had no signs of angioedema on examination. She was admitted under internal medicine for further management and work up. Dermatology were consulted at that time and recommended to optimize antihistamine regimen and outpatient follow-up with allergy/immunology. Patient was discharged on stable conditions with PCP and allergy follow-up appointments. Following discharge yesterday, patient went to the emergency department again for urticarial rash on her chest. Patient was given Pepcid and IM epinephrine, but stated that these medications may not work and she needs IV Benadryl but was discharged home. As per notes, patient was found previously by nursing staff placing suction from a bottle around her lips to induce swelling. Prior ED notes were reviewed as well and patient was repeatedly asking for IV Benadryl. This morning patient went to [place] ED for the same concern. As per ED notes, patient was found scratching herself to create the appearance of her edema and asked for more Benadryl. Patient was offered p.o. Benadryl and Atarax on multiple occasion however she declined. Patient was given multiple doses of epinephrine. ED staff mention that there is a concern for secondary gain at this point given multiple admissions and requesting IV Benadryl. Patient was then transferred to [facility] for further evaluation. Upon transfer, patient was vitally stable, A and O x 3. She was noted to have some itching in her upper extremities and upper chest. Patient was given prednisone, Pepcid and offered as needed p.o. Benadryl however she refused and stated that she wants IV Benadryl instead. Hospital medicine staff met with the patient at bedside and explained that there is no superior benefit for IV over PO Benadryl. Lab tests and telemetry were ordered however patient refused before she takes IV Benadryl. PAST MEDICAL HISTORY: PAST MEDICAL HISTORY Diagnosis Date Endometriosis 10/26/2014 never had diagnostic lap to confirm, patient did not want surgery NIKKIE (generalized anxiety disorder) Gestational diabetes mellitus (GDM) affecting second (HCC) 05/25/2022 Infertility, female Migraine without aura and without status migrainosus, not intractable 07/18/2019 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HCC) 08/27/2015 Panic disorder without agoraphobia PMH - PAST MEDICAL HISTORY OF vascular disease 01/2002 PMH - PAST MEDICAL HISTORY OF wearing glasses and broke ankle at age 3, wrist fracture depression PAST SURGICAL HISTORY: PAST SURGICAL HISTORY Procedure Laterality Date 2D ECHO COMPLETE INP (more content not included)... Normal [facility] Normal [facility] CNDSon 03-06-2025 CNDS Normal [facility] ED NOTEon 03-06-2025 ED NOTE Normal [facility] ED NOTE HNO ID: [id number] Author: JOSIE PERAZA RN Service: ? Author Type: Registered Nurse Type: ED Notes Filed: 03/06/2025 21:58 Note Text: Pt disputed the recommendation to receive PO benadryl. Pt requesting IV benadryl. When educated on reasons for PO benadryl as opposed to IV, pt became angry and requested to leave AMA. Pt stated "I'm going to leave and go to a hospital that will actually treat me and give me what I want." Pt signed AMA form prior to discharge. Risks of leaving AMA provided to patient. Patient understands risks. IV removed prior to departure. Pt left with steady gait. Normal [facility] ED NOTE HNO ID: [id number] Author: JOSSELIN OSORIO RN Service: ? Author Type: Registered Nurse Type: ED Notes Filed: 03/06/2025 19:51 Note Text: Bed: 15-ED Expected date: Expected time: Means of arrival: [facility] (34) Comments: 35F allergic reaction Seen at [facility] 2 days ago for same Used own epi pen +hives to chest Benadryl 50 mcg given by ems 124/82, 104, 24, 100%, BGL 151 Normal [facility] ED PROV NOTEon 03-06-2025 ED PROV NOTE HNO ID: [id number] Author: ADELFO VAZQUEZ MD Service: ? Author Type: Physician Type: ED Provider Notes Filed: 03/06/2025 22:22 Note Text: ED Provider Note Patient Name: Rosalva Huang : 1990 SERVICE DATE: 03/06/25 History Patient presents with: Allergic Reaction: Pt arrives via EMS after allergic reaction to antibiotic, pt used epi pen at home and received 50 mg IV benadryl prior to arrival, pt c/o chest tightness, difficulty swallowing, hives to chest, redness and rash to bilateral arms, +itchiness, no fever/chills Past medical history significant for endometriosis, migraines, bipolar disorder, anxiety, with recent admissions for concerns for allergic reactions presents with concerns for an allergic reaction. Per chart review, she was discharge from [facility] today for possible allergic reaction. States she went home and took what she thought was her home Klonopin, but was instead the antibiotic that caused her to have an allergic reaction. When I ask her what antibiotic she took, she states "the blue one." States that she took her EpiPen at home. For EMS, she was given 50 mg of IV Benadryl. EMS reports that she had "urticarial rash" on her chest that reportedly improved. On my evaluation, patient states she feels a throat tightness sensation. She states that the rash is persisting. States she feels no better after IV epinephrine. She is requesting more IV Benadryl. She is in no acute distress. She is tolerating her secretions. No wheezes on auscultation. No classic urticarial rash on the chest, arms, back, or legs. There is some erythema over the chest that blanches with palpation. Told the patient that we would proceed with IV Pepcid as well as IM epinephrine. She states that these medications may not work and that she needs Benadryl. History provided by: Patient park interpreter used: No PAST MEDICAL HISTORY Diagnosis Date Endometriosis 10/26/2014 never had diagnostic lap to confirm, patient did not want surgery NIKKIE (generalized anxiety disorder) Gestational diabetes mellitus (GDM) affecting second 05/25/2022 Infertility, female Migraine without aura and without status migrainosus, not intractable 07/18/2019 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HCC) 08/27/2015 Panic disorder without agoraphobia PMH - PAST MEDICAL HISTORY OF vascular disease 01/2002 PMH - PAST MEDICAL HISTORY OF wearing glasses and broke ankle at age 3, wrist fracture depression PAST SURGICAL HISTORY Procedure Laterality Date 2D ECHO COMPLETE INP 01/03/2015 EF=67%, WNL SNGL 07/22/2022 FAMILY HISTORY Problem Relation Age of Onset Asthma Mother Psychiatry Mother Bi-Polar Hypertension Maternal Grandmother Heart Maternal Grandfather triple by pass heart diagnosed in Stroke Paternal Grandmother Cancer Paternal Grandmother Breast Cancer Paternal Grandmother Heart Paternal Grandfather heart attack. . Emphysema Paternal Grandfather Diabetes Other maternal side Ovarian cancer Paternal cousin Prostate Cancer Maternal Uncle Social History Tobacco Use Smoking status: Never Passive exposure: Never Smokeless tobacco: Never Tobacco comments: Pt denies Vaping Use Vaping status: Never Used Substance and Sexual Activity Alcohol use: Yes Comment: rare Drug use: No Comment: Pt denies Sexual activity: Not Currently Partners: Male control/protection: Not used ALLERGIES Allergen Reactions Clindamycin Hives Diffuse hives and angioedema of upper lip within 30 minutes of receiving 1st dose. Doxycycline Hives Diffuse hives 30 minutes after 1st dose. Diffuse hives and x1 episode of emesis 30 minutes after 2nd dose. Fluconazole Rash Required IV diphenhydramine 01/06/2025 Keflex [Cephalexin] Anaphylaxis Diffuse rash with upper lip and tongue swelling 15 minutes after first dose. Onion GI Upset Sulfamethoxazole-Tr* Hives Vancomycin Itching Flushing and pruritus consistent with vancomycin infusion reaction. Please refer to Allergy note from 01/05/2025 for details. Adhesive Tape (Rita* Rash, Itching Patient reports unable to tolerate band-aids after a procedure. She noted redness and itching at site of band aid. Mosquitos Swelling Phenergan [Prometha* GI Upset Sunscreen Rash Tingle tanning lotion Zyrtec [Cetirizine * Hives, Other: See Comments Hives and palpitations within 30 minutes of 1st dose. Tolerates Benadryl without issue. No contraindication to trying other antihistamines such as Arthru or Claritin. Review of Systems Physical Exam Vitals [03/06/252002] BP Pulse Temp Temp src Resp SpO2 Weight Height 126/76 (!) 103 36.3 ?C (97.4 ?F) Oral 19 95 % 82.6 kg (182 lb) 1.626 m (5' 4") Physical Exam Vitals and nursing note reviewed. HENT: Head: Atraumatic. Mouth/Throat: Mouth: Mucous membranes are moist. Comments: No obvious ezio (more content not included)... Normal [facility] EKGon 03-06-2025 Electrocardiogram Ventricular Rate : 1 00 BPM Atrial Rate : 100 BPM P-R Interval : 140 ms QRS Duration : 72 ms Q-T Interval : 320 ms QTC Calculation(Bazett) : 413 ms Calculated P Farwell : 23 degrees Calculated R Farwell : 88 degrees Calculated T Farwell : -1 degrees Sinus tachycardia Low voltage, precordial leads Borderline T abnormalities, anterior leads No Stemi Confirmed by ADELFO VAZQUEZ MD ([id number]) on 03/06/2025 8:48:33 PM NAME : ROSALVA HUANG PID : [id number] : 1990 Gender : Female Race : ORD : Procedure Date : Mar 06 2025 20:46:04 Edit Date : Mar 06 2025 20:48:34 Diagnosis: Sinus tachycardia Low voltage, precordial leads Borderline T abnormalities, anterior leads No Stemi Confirmed by ADELFO VAZQUEZ MD ([id number]) on 03/06/2025 8:48:33 PM Test Reason : Location : 402 : FVED fved15 Overread By : ADELFO VAZQUEZ MD Edited By : ADELFO VAZQUEZ MD Referred By : , Acquired by : [id number], Normal [facility] Electrocardiogram Ventricular Rate : 1 01 BPM Atrial Rate : 101 BPM P-R Interval : 135 ms QRS Duration : 71 ms Q-T Interval : 350 ms QTC Calculation(Bazett) : 454 ms Calculated P Farwell : 27 degrees Calculated R Farwell : 90 degrees Calculated T Farwell : -9 degrees Sinus tachycardia Borderline right axis deviation Borderline T abnormalities, diffuse leads No Stemi Confirmed by ADELFO VAZQUEZ MD ([id number]) on 03/06/2025 8:27:08 PM NAME : ROSALVA HUANG PID : [id number] : 1990 Gender : Female Race : ORD : Procedure Date : Mar 06 2025 20:05:57 Edit Date : Mar 06 2025 20:27:10 Diagnosis: Sinus tachycardia Borderline right axis deviation Borderline T abnormalities, diffuse leads No Stemi Confirmed by ADELFO VAZQUEZ MD ([id number]) on 03/06/2025 8:27:08 PM Test Reason : Location : 402 : FVED fved15 Overread By : ADELFO VAZQUEZ MD Edited By : ADELFO VAZQUEZ MD Referred By : , Acquired by : [id number], Normal [facility] NUTRITIONon 03-06-2025 NUTRITION Normal [facility] US ARM VEIN DVT [facility]MON VAS LABo n 03-06-2025 US ARM VEIN DVT [facility] Normal [facility] B-HCG SerPl-aCncon 5 HCG.beta subunit Qn m[IU]/mL Normal <5.0 [facility] Comment on above: Order Comment: Speci men Type: BLOOD SPECIMENOrdering Facility: [facility] Address: [address] [place] [address] Result Comment: Nega tive Performed By: #### 2 1198-7 ####[facility] LABCLIA [id number] [place] [address] [place] CBC W Auto Differential pane l (Bld)on 03-05-2025 Basophils (Bld) [#/Vol] 0.04 10*3/uL Normal <0.11 [facility] Comment on above: Order Comment: Speci men Type: BLOOD SPECIMENOrdering Facility: [facility] Address: [address] [place] [address] Performed By: #### 5 7021-8, 4536-7 ####[facility] LABCLIA [id number] [place] [address] [place] Basophils/100 WBC (Bld) 0.3 % Normal [facility] Comment on above: Order Comment: Speci men Type: BLOOD SPECIMENOrdering Facility: [facility] Address: [address] [place] [address] Performed By: #### 5 7021-8, 4536-7 ####[facility] LABCLIA [id number] [place] [address] [place] Differential cell count method Nom (Bld) Auto Normal [facility] Comment on above: Order Comment: Speci men Type: BLOOD SPECIMENOrdering Facility: [facility] Address: [address] [place] [address] Performed By: #### 5 7021-8, 7 ####[facility] LABCLIA [id number] [place] [address] [place] Eosinophils (Bld) [#/Vol] 10*3/uL Normal <0.46 [facility] Comment on above: Order Comment: Speci men Type: BLOOD SPECIMENOrdering Facility: [facility] Address: [address] [place] [address] Performed By: #### 5 7021-8, 7 ####[facility] LABCLIA [id number] [place] [id number] [place] Eosinophils/100 WBC (Bld) 0.0 % Normal [facility] Comment on above: Order Comment: Speci men Type: BLOOD SPECIMENOrdering Facility: [facility] Address: [address] [place] [address] Performed By: #### 5 7021-8, 4536-7 ####[facility] LABCLIA [id number] [place] [address] [place] Erythrocyte distribution width (RBC) [Ratio] 13.5 % Normal 11.5-15.0 [facility] Comment on above: Order Comment: Speci men Type: BLOOD SPECIMENOrdering Facility: [facility] Address: [address] [place] [address] Performed By: #### 5 7021-8, 7-7 ####[facility] LABIA [id number] [place] [address] [place] Hematocrit (Bld) [Volume fraction] 41.3 % Normal 36.0-46.0 [facility] Comment on above: Order Comment: Speci men Type: BLOOD SPECIMENOrdering Facility: [facility] Address: [address] [place] [address] Performed By: #### 5 7021-8, 4536-7 ####[facility] LABIA [id number] [place] [address] [place] Hemoglobin (Bld) [Mass/Vol] 13.4 g/dL Normal 11.5-15.5 [facility] Comment on above: Order Comment: Speci men Type: BLOOD SPECIMENOrdering Facility: [facility] Address: [address] [place] [address] Performed By: #### 5 7021-8, 7-7 ####[facility] LABIA [id number] [place] [address] [place] Immature granulocytes (Bld) [#/Vol] 0.42 10*3/uL High <0.10 [facility] Comment on above: Order Comment: Speci men Type: BLOOD SPECIMENOrdering Facility: [facility] Address: [address] [place] [address] Performed By: #### 5 7021-8, 7-7 ####[facility] LABIA [id number] [place] [address] [place] Immature granulocytes/100 WBC (Bld) 2.8 % Normal [facility] Comment on above: Order Comment: Speci men Type: BLOOD SPECIMENOrdering Facility: [facility] Address: [address] [place] [address] Performed By: #### 5 7021-8, 4536-7 ####[facility] LABCLIA [id number] [place] [address] [place] Lymphocytes (Bld) [#/Vol] 1.27 10*3/uL Normal 1.00-4.00 [facility] Comment on above: Order Comment: Speci men Type: BLOOD SPECIMENOrdering Facility: [facility] Address: [address] [place] [address] Performed By: #### 5 7021-8, 7 ####[facility] LABCLIA [id number] [place] [address] [place] Lymphocytes/100 WBC (Bld) 8.5 % Normal [facility] Comment on above: Order Comment: Speci men Type: BLOOD SPECIMENOrdering Facility: [facility] Address: [address] [place] [address] Performed By: #### 5 7021-8, 7 ####[facility] LABCLIA [id number] [place] [address] [place] MCH (RBC) [Entitic mass] 29.2 pg Normal 26.0-34.0 [facility] Comment on above: Order Comment: Speci men Type: BLOOD SPECIMENOrdering Facility: [facility] Address: [address] [place] [address] Performed By: #### 5 7021-8, 7 ####[facility] LABCLIA [id number] [place] [address] [place] MCHC (RBC) [Mass/Vol] 32.4 g/dL Normal 30.5-36.0 [facility] Comment on above: Order Comment: Speci men Type: BLOOD SPECIMENOrdering Facility: [facility] Address: [address] [place] [address] Performed By: #### 5 7021-8, 4536-7 ####[facility] LABCLIA [id number] [place] [address] [place] MCV (RBC) [Entitic vol] 90.0 fL Normal 80.0-100.0 [facility] Comment on above: Order Comment: Speci men Type: BLOOD SPECIMENOrdering Facility: [facility] Address: [address] [place] [address] Performed By: #### 5 7021-8, 4536-7 ####[facility] LABCLIA [id number] [place] [address] [place] Monocytes (Bld) [#/Vol] 0.24 10*3/uL Normal <0.87 [facility] Comment on above: Order Comment: Speci men Type: BLOOD SPECIMENOrdering Facility: [facility] Address: [address] [place] [address] Performed By: #### 5 7021-8, 4536-7 ####[facility] LABCLIA [id number] [place] [address] [place] Monocytes/100 WBC (Bld) 1.6 % Normal [facility] Comment on above: Order Comment: Speci men Type: BLOOD SPECIMENOrdering Facility: [facility] Address: [address] [place] [address] Performed By: #### 5 7021-8, 4536-7 ####[facility] LABCLIA [id number] [place] [address] [place] Neutrophils (Bld) [#/Vol] 13.04 10*3/uL High 1.45-7.50 [facility] Comment on above: Order Comment: Speci men Type: BLOOD SPECIMENOrdering Facility: [facility] Address: [address] [place] [address] Performed By: #### 5 7021-8, 7-7 ####[facility] LABCLIA [id number] [address] [place] Neutrophils/100 WBC (Bld) 86.8 % Normal [facility] Comment on above: Order Comment: Speci men Type: BLOOD SPECIMENOrdering Facility: [facility] Address: [address] [place] [address] Performed By: #### 5 7021-8, 4536-7 ####[facility] LABCLIA [id number] [place] [address] [place] Nucleated RBC (Bld) [#/Vol] 10*3/uL Normal <0.01 [facility] Comment on above: Order Comment: Speci men Type: BLOOD SPECIMENOrdering Facility: [facility] Address: [address] [place] [address] Performed By: #### 5 7021-8, 4536-7 ####[facility] LABCLIA [id number] [place] [address] [place] Nucleated RBC/100 WBC (Bld) [Ratio] 0.0 /100 WBC Normal [facility] Comment on above: Order Comment: Speci men Type: BLOOD SPECIMENOrdering Facility: [facility] Address: [address] [place] [address] Performed By: #### 5 7021-8, 4536-7 ####[facility] LABCLIA [id number] [place] [address] [place] Platelet mean volume (Bld) [Entitic vol] 9.9 fL Normal 9.0-12.7 [facility] Comment on above: Order Comment: Speci men Type: BLOOD SPECIMENOrdering Facility: [facility] Address: [address] [place] [address] Performed By: #### 5 7021-8, 7-7 ####[facility] LABCLIA [id number] [place] [id number] [place] Platelets (Bld) [#/Vol] 302 10*3/uL Normal 150-400 [facility] Comment on above: Order Comment: Speci men Type: BLOOD SPECIMENOrdering Facility: [facility] Address: [address] [place] [address] Performed By: #### 5 7021-8, 4537-7 ####[facility] LABIA [id number] [place] [id number] [place] RBC (Bld) [#/Vol] 4.59 10*6/uL Normal 3.90-5.20 [facility] Comment on above: Order Comment: Speci men Type: BLOOD SPECIMENOrdering Facility: [facility] Address: [address] [place] [address] Performed By: #### 5 7021-8, 4537-7 ####[facility] [id number] [place] [address] [place] WBC (Bld) [#/Vol] 15.01 10*3/uL High 3.70-11.00 [facility] Comment on above: Order Comment: Speci men Type: BLOOD SPECIMENOrdering Facility: [facility] Address: [address] [place] [address] Performed By: #### 5 7021-8, 4537-7 ####[facility] LABIA [id number] [place] [id number] [place] CONSULTon 03-05-2025 CONSULT Normal [facility] ESR Westergren method (Bld) [Velocity]on 03-05-2025 ESR (Bld) [Velocity] 8 mm/h Normal 0-20 [facility] Comment on above: Order Comment: Speci men Type: BLOOD SPECIMENOrdering Facility: [facility] Address: [address] [place] [address] Performed By: #### 5 7021-8, 4537-7 ####[facility] [id number] [place] [address] [place] HCG Preg Ur Qlon 03-05-2025 HCG ( test) Ql (U) Negative Normal Negative [facility] Comment on above: Order Comment: Speci men Type: URINE SPECIMENOrdering Facility: [facility] Address: [address] [place] [address] Result Comment: This test is intended to aid in the early detection of . Very dilute urine samples, as indicated by a low specific gravity, may not contain community health program representative levels of hCG. This test detects intact hCG only. This test does not reliably detect hCG degradation products, including free-beta subunit and beta-core fragment. Therefore, this test may show reduced reactivity in urine after 8 weeks gestation. A number of conditions other than , including trophoblastic disease and certain non-trophoblastic neoplasms cause elevated levels of hCG. As with any assay employing mouse antibodies, the possibility exists for interference by human anti-mouse antibodies (HAMA) in the specimen. The test provides a presumptive diagnosis for . Performed By: #### 2 106-3 ####[facility] [id number] [place] [address] [place] Heteroph Ab Ser Ql LAon 02-21 Heterophile Ab LA Ql (S) Negative Normal Negative [facility] Comment on above: Order Comment: Speci men Type: BLOOD SPECIMENOrdering Facility: [facility] Address: [address] [place] [address] Result Comment: Infe ctious Mononucleosis rapid test is used as an aid in diagnosis of acute infection with Miriam-Oro virus (EBV). The antibody levels may occasionally remain elevated up to several months after a primary EBV infection. Final interpretation should be done in conjunction with EBV-specific serology and clinical correlation. False positive results may occasionally be seen with other infectious agents such as Cytomegalovirus, Toxoplasma, and HIV among others as well as non-infectious conditions such as lymphoma. Clinical correlation is required. Performed By: #### 5 213-4 ####[facility] LABIA [id number] [address] [place] NURSING PROGon 03-05-2025 NURSING PROG Normal [facility] Resp path 12b Pnl Spec LAURA+p robeon 03-05-2025 Respiratory pathogens DNA and RNA 12b panel LAURA+probe (Unsp spec) Normal [facility] Comment on above: Performed By: #### 6 0566-7 ####[facility] LABCLIA [id number] [place] [id number] [place] C4 SerPl-mCncon 03-04-2025 Complement C4 [Mass/Vol] 17 mg/dL Normal 13-46 [facility] Comment on above: Order Comment: Speci men Type: BLOOD SPECIMENOrdering Facility: [facility] Address: [address] [place] [address] Performed By: #### 2 4362-6, 4498-2, 2157-6, 1987-5, 31431-2 ####[facility] LABCLIA [id number] [place] [address] [place] CBC Pnl Bld Autoon Erythrocyte distribution width (RBC) [Ratio] 13.3 % Normal 11.5-15.0 [facility] Comment on above: Order Comment: Speci men Type: BLOOD SPECIMENOrdering Facility: [facility] Address: [address] [place] [address] Performed By: #### 5 8410-2, 61313-3 ####[facility] LABCLIA [id number] [address] [place] Hematocrit (Bld) [Volume fraction] 40.0 % Normal 36.0-46.0 [facility] Comment on above: Order Comment: Speci men Type: BLOOD SPECIMENOrdering Facility: [facility] Address: [address] [place] [address] Performed By: #### 5 8410-2, 88117-3 ####[facility] LABCLIA [id number] [place] [id number] [place] Hemoglobin (Bld) [Mass/Vol] 13.6 g/dL Normal 11.5-15.5 [facility] Comment on above: Order Comment: Speci men Type: BLOOD SPECIMENOrdering Facility: [facility] Address: [address] [place] [address] Performed By: #### 5 8410-2, 92086-7 ####[facility] LABIA [id number] [place] [address] [place] MCH (RBC) [Entitic mass] 29.4 pg Normal 26.0-34.0 [facility] Comment on above: Order Comment: Speci men Type: BLOOD SPECIMENOrdering Facility: [facility] Address: [address] [place] [address] Performed By: #### 5 8410-2, 68589-5 ####[facility] LABIA [id number] [address] [place] MCHC (RBC) [Mass/Vol] 34.0 g/dL Normal 30.5-36.0 [facility] Comment on above: Order Comment: Speci men Type: BLOOD SPECIMENOrdering Facility: [facility] Address: [address] [place] [address] Performed By: #### 5 8410-2, 24279-2 ####[facility] [id number] [place] [address] [place] MCV (RBC) [Entitic vol] 86.6 fL Normal 80.0-100.0 [facility] Comment on above: Order Comment: Speci men Type: BLOOD SPECIMENOrdering Facility: [facility] Address: [address] [place] [address] Performed By: #### 5 8410-2, 40945-6 ####[facility] LABIA [id number] [place] [address] [place] Nucleated RBC (Bld) [#/Vol] 10*3/uL Normal <0.01 [facility] Comment on above: Order Comment: Speci men Type: BLOOD SPECIMENOrdering Facility: [facility] Address: [address] [place] [address] Performed By: #### 5 8410-2, 44876-2 ####[facility] LABCLIA [id number] [address] [address] [place] Platelet mean volume (Bld) [Entitic vol] 9.9 fL Normal 9.0-12.7 [facility] Comment on above: Order Comment: Speci men Type: BLOOD SPECIMENOrdering Facility: [facility] Address: [address] [place] [address] Performed By: #### 5 8410-2, 03646-8 ####[facility] LABCLIA [id number] [place] [address] [place] Platelets (Bld) [#/Vol] 310 10*3/uL Normal 150-400 [facility] Comment on above: Order Comment: Speci men Type: BLOOD SPECIMENOrdering Facility: [facility] Address: [address] [place] [address] Performed By: #### 5 8410-2, 55188-9 ####[facility] LABIA [id number] [place] [address] [place] RBC (Bld) [#/Vol] 4.62 10*6/uL Normal 3.90-5.20 [facility] Comment on above: Order Comment: Speci men Type: BLOOD SPECIMENOrdering Facility: [facility] Address: [address] [place] [address] Performed By: #### 5 8410-2, 48599-7 ####[facility] LABCLIA [id number] [address] [address] [place] WBC (Bld) [#/Vol] 16.93 10*3/uL High 3.70-11.00 [facility] Comment on above: Order Comment: Speci men Type: BLOOD SPECIMENOrdering Facility: [facility] Address: [address] [place] [address] Performed By: #### 5 8410-2, 31755-7 ####[facility] LABCLIA [id number] [place] [address] [place] CBC W Auto Differential pane l (Bld)on 03-04-2025 Basophils (Bld) [#/Vol] 0.06 10*3/uL Normal <0.11 [facility] Comment on above: Order Comment: Speci men Type: BLOOD SPECIMENOrdering Facility: [facility] Address: [address] [place] [address] Performed By: #### 5 8410-2, 43280-3 ####[facility] LABCLIA [id number] [place] [address] [place] Basophils/100 WBC (Bld) 0.3 % Normal [facility] Comment on above: Order Comment: Speci men Type: BLOOD SPECIMENOrdering Facility: [facility] Address: [address] [place] [address] Performed By: #### 5 8410-2, 95008-4 ####[facility] LABCLIA [id number] [place] [address] [place] Differential cell count method Nom (Bld) Auto Normal [facility] Comment on above: Order Comment: Speci men Type: BLOOD SPECIMENOrdering Facility: [facility] Address: [address] [place] [address] Performed By: #### 5 8410-2, 69822-1 ####[facility] LABCLIA [id number] [place] [address] [place] Eosinophils (Bld) [#/Vol] 0.12 10*3/uL Normal <0.46 [facility] Comment on above: Order Comment: Speci men Type: BLOOD SPECIMENOrdering Facility: [facility] Address: [address] [place] [address] Performed By: #### 5 8410-2, 19242-4 ####[facility] LABCLIA [id number] [place] [address] [place] Eosinophils/100 WBC (Bld) 0.7 % Normal [facility] Comment on above: Order Comment: Speci men Type: BLOOD SPECIMENOrdering Facility: [facility] Address: [address] [place] [address] Performed By: #### 5 8410-2, 50518-9 ####[facility] LABCLIA [id number] [place] [address] [place] Immature granulocytes (Bld) [#/Vol] 0.45 10*3/uL High <0.10 [facility] Comment on above: Order Comment: Speci men Type: BLOOD SPECIMENOrdering Facility: [facility] Address: [address] [place] [address] Performed By: #### 5 8410-2, 11037-7 ####[facility] LABIA [id number] [place] [address] [place] Immature granulocytes/100 WBC (Bld) 2.6 % Normal [facility] Comment on above: Order Comment: Speci men Type: BLOOD SPECIMENOrdering Facility: [facility] Address: [address] [place] [address] Performed By: #### 5 8410-2, 94260-5 ####[facility] LABCLIA [id number] [place] [address] [place] Lymphocytes (Bld) [#/Vol] 3.44 10*3/uL Normal 1.00-4.00 [facility] Comment on above: Order Comment: Speci men Type: BLOOD SPECIMENOrdering Facility: [facility] Address: [address] [place] [address] Performed By: #### 5 8410-2, 19436-0 ####[facility] LABCLIA [id number] [address] [place] [address] [place] Lymphocytes/100 WBC (Bld) 19.9 % Normal [facility] Comment on above: Order Comment: Speci men Type: BLOOD SPECIMENOrdering Facility: [facility] Address: [address] [place] [address] Performed By: #### 5 8410-2, 06555-4 ####[facility] LABCLIA [id number] [address], [facility]95 [place] Monocytes (Bld) [#/Vol] 1.16 10*3/uL High <0.87 [facility] Comment on above: Order Comment: Speci men Type: BLOOD SPECIMENOrdering Facility: [facility] Address: [address] [place] [address] Performed By: #### 5 8410-2, 94976-6 ####[facility] LABCLIA [id number] [place] [address] [place] Monocytes/100 WBC (Bld) 6.7 % Normal [facility] Comment on above: Order Comment: Speci men Type: BLOOD SPECIMENOrdering Facility: [facility] Address: [address] [place] [address] Performed By: #### 5 8410-2, 95779-5 ####[facility] LABCLIA [id number] [place] [address] [place] Neutrophils (Bld) [#/Vol] 12.04 10*3/uL High 1.45-7.50 [facility] Comment on above: Order Comment: Speci men Type: BLOOD SPECIMENOrdering Facility: [facility] Address: [address] [place] [address] Performed By: #### 5 8410-2, 31574-3 ####[facility] LABCLIA [id number] [address], [facility]95 [place] Neutrophils/100 WBC (Bld) 69.8 % Normal [facility] Comment on above: Order Comment: Speci men Type: BLOOD SPECIMENOrdering Facility: [facility] Address: [address] [place] [address] Performed By: #### 5 8410-2, 09340-5 ####[facility] LABCLIA [id number] [place] [address] [place] Nucleated RBC/100 WBC (Bld) [Ratio] 0.0 /100 WBC Normal [facility] Comment on above: Order Comment: Speci men Type: BLOOD SPECIMENOrdering Facility: [facility] Address: [address] [place] [address] Performed By: #### 5 8410-2, 55579-3 ####[facility] LABCLIA [id number] [place] [address] [place] CK SerPl-cCncon 03-04-2025 CK [Catalytic activity/Vol] 103 U/L Normal 42-196 [facility] Comment on above: Order Comment: Speci men Type: BLOOD SPECIMENOrdering Facility: [facility] Address: [address] [place] [address] Performed By: #### 2 4362-6, 8-2, 2157-04, 1988-03, ####[facility] LABCLIA [id number] [place] [address] [place] CONSULTon 03-04-2025 CONSULT Normal [facility] CRP SerPl-mCncon 03-04-2025 CRP [Mass/Vol] 0.8 mg/dL Normal <0.9 [facility] Comment on above: Order Comment: Speci men Type: BLOOD SPECIMENOrdering Facility: [facility] Address: [address] [place] [address] Performed By: #### 2 4362-6, 4498-2, 6, 1988-03, ####[facility] LABCLIA [id number] [address] [address] [place] ED NOTEon 03-04-2025 ED NOTE Normal [facility] ED NOTE HNO ID: [id number] Author: JAILENE MCKEON RN Service: Emergency Medicine Author Type: Registered Nurse Type: ED Notes Filed: 03/04/2025 19:09 Note Text: Assumed care of pt at this time Normal [facility] ED PROV NOTEon 03-04-2025 ED PROV NOTE Normal [facility] ED PROV NOTE Normal [facility] HISTORY PHYSICALon HISTORY PHYSICAL Normal [facility] IgE SerPl-aCncon 03-04-2025 IgE Qn 4.9 kU/l Normal <114.0 [facility] Comment on above: Order Comment: Speci men Type: BLOOD SPECIMENOrdering Facility: [facility] Address: [address] [place], [place] [address] Performed By: #### 2 4362-6, 4498-2, 2157-04, 1988-03, 10917-7 ####[facility] LABIA [id number] [address] [address] [place] Renal function 2000 panelon 03-04-2025 Albumin [Mass/Vol] 4.4 g/dL Normal 3.9-4.[address] [facility] Comment on above: Order Comment: Speci men Type: BLOOD SPECIMENOrdering Facility: [facility] Address: [address] [place], [place] [address] Performed By: #### 2 4362-6, 4498-2, 2157-04, 1988-03, ####[facility] LABIA [id number] [address] [address] [place] Anion gap [Moles/Vol] 12 mmol/L Normal 8-15 [facility] Comment on above: Order Comment: Speci men Type: BLOOD SPECIMENOrdering Facility: [facility] Address: [address] [place], [place] [address] Performed By: #### 2 4362-6, 4497-2, 2157-04, 1988-03, ####[facility] LABCLIA [id number] [address] [address] [place] Calcium [Mass/Vol] 9.2 mg/dL Normal 8.5-10.[address] [facility] Comment on above: Order Comment: Speci men Type: BLOOD SPECIMENOrdering Facility: [facility] Address: [address] [place] [address] Performed By: #### 2 4362-6, 4498-2, 2157-04, 1988-03, ####[facility] LABIA [id number] [address] [address] [place] Chloride [Moles/Vol] 104 mmol/L Normal 98-107 [facility] Comment on above: Order Comment: Speci men Type: BLOOD SPECIMENOrdering Facility: [facility] Address: [address] [place], [place] [address] Performed By: #### 2 4362-6, 4498-2, 2157-04, 1988-03, ####[facility] [id number] [address] [address] [place] CO2 [Moles/Vol] 23 mmol/L Normal 22-30 [facility] Comment on above: Order Comment: Speci men Type: BLOOD SPECIMENOrdering Facility: [facility] Address: [address] [place], [place] [address] Performed By: #### 2 4362-6, 4498-2, 2157-04, 1988-03, ####[facility] LABIA [id number] [address] [address] [place] Creatinine [Mass/Vol] 0.70 mg/dL Normal 0.58-0.96 [facility] Comment on above: Order Comment: Speci men Type: BLOOD SPECIMENOrdering Facility: [facility] Address: [address] [place], [place] [address] Performed By: #### 2 4362-6, 4498-2, 2156-6, 1988-03, 45723-8 ####[facility] LABIA [id number] [place] [address] [place] Creatinine and Glomerular filtration rate.predicted panel (S/P/Bld) 117 mL/min/1.73m??? Normal >=60 [facility] Comment on above: Order Comment: Mookie roberts Type: BLOOD SPECIMENOrdering Facility: [facility] Address: [address] [place] [address] Result Comment: Anne-Marie mated Glomerular Filtration Rate (eGFR) is calculated using the 2020 CKD-EPI creatinine equation. This equation utilizes serum creatinine, sex, and age as parameters. The creatinine assay has traceable calibration to isotope dilution-mass spectrometry. Refer to KDIGO guidelines for clinical interpretation. In patients with unstable renal function, e.g. those with acute kidney injury, the eGFR may not accurately reflect actual GFR. Performed By: #### 2 4362-6, 4498-2, 2157-04, 1988-03, 64887-3 ####[facility] LABIA [id number] [place] [address] [place] Glucose [Mass/Vol] 117 mg/dL High 74-[address] [facility] Comment on above: Order Comment: Mookie roberts Type: BLOOD SPECIMENOrdering Facility: [facility] Address: [address] [place] [address] Result Comment: The [place] [employer] (ADA) provides guidance for cutoff values for fasting glucose and random glucose. The ADA defines fasting as no caloric intake for at least 8 hours. Fasting plasma glucose results between 100 to 125 mg/dL indicate increased risk for diabetes (prediabetes).Fasting plasma glucose results greater than or equal to 126 mg/dL meet the criteria for diagnosis of diabetes. In the absence of unequivocal hyperglycemia, results should be confirmed by repeat testing. In a patient with classic symptoms of hyperglycemia or hyperglycemic crisis, random plasma glucose results greater than or equal to 200 mg/dL meet the criteria for diagnosis of diabetes.Reference: Standards of Medical Care in Diabetes 2016, [place] [employer]. Diabetes Care. 2016.39(Suppl 1). Performed By: #### 2 4362-6, 4498-2, 2157-04, 1988-03, ####[facility] LABCLIA [id number] [facility] [address] [place] [address] [place] Phosphate [Mass/Vol] 2.9 mg/dL Normal 2.7-4.8 [facility] Comment on above: Order Comment: Speci men Type: BLOOD SPECIMENOrdering Facility: [facility] Address: [address] [place] [address] Performed By: #### 2 4362-6, 4498-2, 2157-04, 1988-03, ####[facility] LABCLIA [id number] [address] [place] [address] [place] Potassium [Moles/Vol] 3.8 mmol/L Normal 3.7-5.1 [facility] Comment on above: Order Comment: Speci men Type: BLOOD SPECIMENOrdering Facility: [facility] Address: [address] [place] [address] Performed By: #### 2 4362-6, 4498-2, 2157-04, 1988-03, ####[facility] LABIA [id number] [address] [place] [address] [place] Sodium [Moles/Vol] 139 mmol/L Normal 136-[address] [facility] Comment on above: Order Comment: Speci men Type: BLOOD SPECIMENOrdering Facility: [facility] Address: [address] [place] [address] Performed By: #### 2 4362-6, 4498-2, 2157-04, 1988-03, ####[facility] LABCLIA [id number] [address] [place] [address] [place] Urea nitrogen [Mass/Vol] 16 mg/dL Normal 7-21 [facility] Comment on above: Order Comment: Speci men Type: BLOOD SPECIMENOrdering Facility: [facility] Address: [address] [place] [address] Performed By: #### 2 4362-6, 4498-2, 2157-6, 1987-5, 24620-2 ####[facility] LABCLIA [id number] [place] [address] [place] S pyo DNA Throat Ql ALURA+prob eloise 03-04-2025 S. pyogenes DNA LAURA+probe Ql (Throat) Not detected Normal Not detected [facility] Comment on above: Order Comment: Speci men Type: SWABOrdering Facility: [facility] Address: [address] [place] [address] Performed By: #### 6 0489-2 ####[facility] LABCLIA [id number] [place] [address] [place] TOXICOLOGY SCREEN, ROUTINE U RINEon 03-04-2025 Amphetamines Confirm (U) [Mass/Vol] Negative Normal Negative [facility] Comment on above: Order Comment: Speci men Type: URINE SPECIMENOrdering Facility: [facility] Address: [address] [place] [address] Result Comment: Cuto ff threshold at 1000 ng/mL. Performed By: #### U TOX2 ####[facility] LABCLIA [id number] [place] [address] [place] BARBITURATES, URINE Negative Normal Negative [facility] Comment on above: Order Comment: Speci men Type: URINE SPECIMENOrdering Facility: [facility] Address: [address] [place] [address] Result Comment: Cuto ff threshold at 200 ng/mL. Performed By: #### U TOX2 ####[facility] LABCLIA [id number] [place] [id number] [place] BENZODIAZEPINES, UR Positive Abnormal Negative [facility] Comment on above: Order Comment: Speci men Type: URINE SPECIMENOrdering Facility: [facility] Address: [address] [place] [address] Result Comment: Cuto ff threshold at 200 ng/mL. Performed By: #### U TOX2 ####[facility] LABCLIA [id number] [place] [address] [place] Cannabinoids Screen Ql (U) Negative Normal Negative [facility] Comment on above: Order Comment: Speci men Type: URINE SPECIMENOrdering Facility: [facility] Address: [address] [place] [address] Result Comment: Cuto ff threshold at 50 ng/mL. Performed By: #### U TOX2 ####[facility] LABIA [id number] [place] [address] [place] Cocaine Ql (U) Negative Normal Negative [facility] Comment on above: Order Comment: Speci men Type: URINE SPECIMENOrdering Facility: [facility] Address: [address] [place] [address] Result Comment: Cuto ff threshold at 300 ng/mL. Performed By: #### U TOX2 ####[facility] LABIA [id number] [place] [address] [place] Ethanol (U) [Mass/Vol] <11 Normal <11 [facility] Comment on above: Order Comment: Speci men Type: URINE SPECIMENOrdering Facility: [facility] Address: [address] [place] [address] Performed By: #### U TOX2 ####[facility] LABCLIA [id number] [place] [address] [place] Opiates Screen Ql (U) Negative Normal Negative [facility] Comment on above: Order Comment: Speci men Type: URINE SPECIMENOrdering Facility: [facility] Address: [address] [place] [address] Result Comment: Cuto ff threshold at 300 ng/mL. Performed By: #### U TOX2 ####[facility] LABCLIA [id number] [place] [address] [place] oxyCODONE cutoff Screen (U) [Mass/Vol] Negative Normal Negative [facility] Comment on above: Order Comment: Speci men Type: URINE SPECIMENOrdering Facility: [facility] Address: [address] [place] [address] Result Comment: Cuto ff threshold at 100 ng/mL. Performed By: #### U TOX2 ####[facility] [id number] [place] [address] [place] Phencyclidine Ql (U) Negative Normal Negative [facility] Comment on above: Order Comment: Speci men Type: URINE SPECIMENOrdering Facility: [facility] Address: [address] [place] [address] Result Comment: Cuto ff threshold at 25 ng/mL. Performed By: #### U TOX2 ####[facility] [id number] [place] [address] [place] TRYPTASE BLOODon 03-04-2025 Tryptase [Mass/Vol] 2.5 ug/L Normal <8.4 [facility] Comment on above: Order Comment: Speci men Type: BLOOD SPECIMENOrdering Facility: [facility] Address: [address] [place] [address] Performed By: #### T RYPT ####[facility] [id number] [place] [address] [place] CNDSon 03-03-2025 CNDS Normal [facility] CASE MANAGEMon 03-02-2025 CASE MANAGEM Normal [facility] CONSULTon 03-02-2025 CONSULT Normal [facility] CHATO BY IFA WITH REFLEXon Nuclear Ab pattern (S) [Interp] Nuclear homogeneous Normal [facility] Comment on above: Order Comment: Speci men Type: BLOOD SPECIMENOrdering Facility: [facility] Address: [address] [place] [address] Performed By: #### A ELSI, 77799-6, 05081-7, 53076-2, 11456-1, 11047-6, 49908-1, 84942-8, 10170-4, 17221-9 ####[facility] LABCLIA [id number] [place] [id number] [place] Nuclear Ab Ql (S) Positive Abnormal Negative [facility] Comment on above: Order Comment: Speci men Type: BLOOD SPECIMENOrdering Facility: [facility] Address: [address] [place] [address] Result Comment: Anti -nuclear antibody test is used as an aid in diagnosis of systemic autoimmune diseases. Where positive and clinically warranted, follow-up using disease-specific testing is recommended. Low positive titers are not uncommon with advanced age, certain chronic infections, and malignancies among others.Test methodology: Indirect fluorescence immunoassay (IFA) using HEp-2 cells.1:80 Performed By: #### A NAIFR, 49641-4, 13018-4, 88022-5, 64914-3, 71881-4, 32777-0, 76544-0, 21470-9, 13510-4 ####[facility] LABCLIA [id number] [place] [address] [place] CASE MGT INIT ASSESon 2024 CASE MGT INIT ASSES Normal [facility] CONSULT PROGon 03-01-2025 CONSULT PROG Normal [facility] Centromere Ab IF Ql (S)on Centromere Ab Qn (S) 0.7 AI Normal <1.0 [facility] Comment on above: Order Comment: Speci men Type: BLOOD SPECIMENOrdering Facility: [facility] Address: [address] [place] [address] Result Comment: Anti -centromere antibody is used as in aid in diagnosis of systemic sclerosis. Clinical correlation is required.Test Methodology: Multiplex flow immunoassay. Performed By: #### A NAIFR, 75645-7, 89251-1, 57249-5, 14805-2, 66501-3, 18154-5, 06853-9, 24189-4, 64142-2 ####[facility] LABCLIA [id number] [place] [address] [place] CENTROMERE AB QUAL Negative Normal Negative [facility] Comment on above: Order Comment: Speci men Type: BLOOD SPECIMENOrdering Facility: [facility] Address: [address] [place] [address] Performed By: #### A NAIFR, 19060-1, 39241-4, 57512-6, 99162-9, 26570-5, 06980-5, 59131-5, 38429-4, 70792-2 ####[facility] LABCLIA [id number] [place] [address] [place] Chromatin Ab Qnon 03-01-2025 CHROMATIN AB QUAL Negative Normal Negative [facility] Comment on above: Order Comment: Speci men Type: BLOOD SPECIMENOrdering Facility: [facility] Address: [address] [place] [address] Performed By: #### A NAIFR, 15015-9, 57759-6, 36921-4, 09617-6, 57844-4, 34101-1, 72019-5, 70734-1, 43349-4 ####[facility] LABCLIA [id number] [place] [address] [place] Chromatin Ab SerPl-aCncon Chromatin Ab Qn 0.3 AI Normal <1.0 [facility] Comment on above: Order Comment: Speci men Type: BLOOD SPECIMENOrdering Facility: [facility] Address: [address] [place] [address] Result Comment: Test Methodology: Multiplex flow immunoassay. Performed By: #### A NAIFR, 63094-6, 55036-8, 55401-4, 46662-1, 44358-3, 37831-9, 75475-7, 68342-1, 88068-6 ####[facility] LABCLIA [id number] [place] [address] [place] DNA double strand Ab IA Qn ( S)on 03-01-2025 DNA ANTIBODY 5 IU/mL Normal <=200 [facility] Comment on above: Order Comment: Speci men Type: BLOOD SPECIMENOrdering Facility: [facility] Address: [address] [place] [address] Result Comment: Nega tive: <200 IU/mLEquivocal: 201-300 IU/mLModerate Positive: 301-800 IU/mLStrong Positive: >801 IU/mL Performed By: #### A NAIFR, 86166-5, 93131-6, 57864-9, 23152-4, 44282-0, 02601-3, 21491-0, 45293-0, 84288-8 ####[facility] LABCLIA [id number] [place] [address] [place] DNA ANTIBODY QUALITATIVE INTERPRETATION Negative Normal Negative [facility] Comment on above: Order Comment: Speci men Type: BLOOD SPECIMENOrdering Facility: [facility] Address: [address] [place] [address] Performed By: #### A NAIFR, 97510-1, 01223-3, 43518-9, 78017-9, 21771-3, 93532-9, 81159-5, 45691-7, 57435-9 ####[facility] LABCLIA [id number] [place] [address] [place] JUICE Jo1 Ab Ser-aCncon 2024 Marisela-1 extractable nuclear Ab Qn (S) <0.2 Normal <1.0 [facility] Comment on above: Order Comment: Speci men Type: BLOOD SPECIMENOrdering Facility: [facility] Address: [address] [place] [address] Performed By: #### A NAIFR, 56452-2, 54790-1, 18375-0, 37335-3, 36459-5, 50120-7, 45508-3, 15972-7, 90980-5 ####[facility] LABIA [id number] [address] [place] JUICE RADIAL DRILL PRESS SET UP OPERATOR Ab Ser-aCncon 2024 Ribonucleoprotein extractable nuclear Ab Qn (S) <0.2 Normal <1.0 [facility] Comment on above: Order Comment: Speci men Type: BLOOD SPECIMENOrdering Facility: [facility] Address: [address] [place] [address] Performed By: #### A NAIFR, 24206-3, 47315-3, 95938-6, 36168-1, 60231-0, 72544-3, 40299-4, 23207-8, 79095-8 ####[facility] [id number] [address] [place] JUICE SM IgG Ser-aCncon 2024 Hawthorne extractable nuclear IgG Qn (S) <0.2 Normal <1.0 [facility] Comment on above: Order Comment: Speci men Type: BLOOD SPECIMENOrdering Facility: [facility] Address: [address] [place] [address] Performed By: #### A NAIFR, 90845-3, 53173-9, 84184-3, 02944-3, 61321-7, 97350-8, 38480-3, 92146-2, 91373-1 ####[facility] [id number] [place] [address] [place] JUICE SS-A Ab Ser-aCncon 03-01 Sjogrens syndrome-A extractable nuclear Ab Qn (S) <0.2 Normal <1.0 [facility] Comment on above: Order Comment: Speci men Type: BLOOD SPECIMENOrdering Facility: [facility] Address: [address] [place] [address] Result Comment: Test Methodology: Multiplex flow immunoassay. Performed By: #### A NAIFR, 60948-8, 95564-4, 48636-5, 99955-3, 35861-8, 87018-4, 79646-3, 06390-9, 56472-6 ####[facility] LABCLIA [id number] [place] [address] [place] JUICE SS-B Ab Ser-aCncon 03-01 Sjogrens syndrome-B extractable nuclear Ab Qn (S) <0.2 Normal <1.0 [facility] Comment on above: Order Comment: Speci men Type: BLOOD SPECIMENOrdering Facility: [facility] Address: [address] [place] [address] Result Comment: Anti -SSB (anti-La) antibody is used as an aid in diagnosis of a variety of systemic autoimmune diseases, especially for Sjogren's syndrome and systemic lupus erythematosus. Clinical correlation is required.Test Methodology: Multiplex flow immunoassay. Performed By: #### A NAIFR, 98979-2, 95534-1, 76626-3, 98332-2, 09864-6, 69833-6, 53922-3, 29345-8, 85134-5 ####[facility] [id number] [place] [address] [place] Marisela-1 extractable nuclear Ab Qn (S)on 03-01-2025 MARISELA 1 ANTIBODY QUAL Negative Normal Negative [facility] Comment on above: Order Comment: Speci men Type: BLOOD SPECIMENOrdering Facility: [facility] Address: [address] [place] [address] Result Comment: Anti -MARISELA-1 antibody is used as an aid in diagnosis of polymyositis and dermatomyositis especially with pulmonary involvement. A negative result cannot rule out polymyositis or dermatomyositis. Clinical correlation is required.Test Methodology: Multiplex flow immunoassay. Performed By: #### A NAIFR, 86414-1, 68896-5, 40138-6, 18445-3, 70647-7, 21083-4, 96967-0, 84592-8, 30702-8 ####[facility] LABCLIA [id number] [address] [address] [place] JUDITH US BREAST LTD RTon 03-01 JUDITH US BREAST LTD RT Normal [facility] MEDICAL EMERon 03-01-2025 MEDICAL RAQUEL Normal [facility] NURSING PROGon 03-01-2025 NURSING PROG Normal [facility] Ribonucleoprotein extractabl e nuclear Ab Qn (S)on 03-01-2025 ANTI-RADIAL DRILL PRESS SET UP OPERATOR QUAL Negative Normal Negative [facility] Comment on above: Order Comment: Speci men Type: BLOOD SPECIMENOrdering Facility: [facility] Address: [address] [place] [address] Performed By: #### A NAIFR, 46996-8, 39317-4, 30953-7, 71035-5, 80647-7, 95612-0, 57666-7, 83577-0, 18434-1 ####[facility] LABCLIA [id number] [place] [address] [place] RIBOSOMAL RADIAL DRILL PRESS SET UP OPERATOR QUAL Negative Normal Negative [facility] Comment on above: Order Comment: Speci men Type: BLOOD SPECIMENOrdering Facility: [facility] Address: [address] [place] [address] Result Comment: Anti -Ribosomal RNA (Ribosomal P) antibody is used as an aid in diagnosis of systemic autoimmune diseases especially systemic lupus erythematosus and mixed connective tissue disease. Cross-reactivity with Anti-hawthorne antibody is not uncommon. Clinical correlation is required.Test Methodology: Multiplex flow immunoassay. Performed By: #### A NAIFR, 33759-1, 21625-2, 56979-6, 92781-3, 02789-6, 35945-4, 18693-0, 55254-1, 82184-1 ####[facility] LABCLIA [id number] [place] [address] [place] SCL-70 extractable nuclear I gG IA Qn (S)on 03-01-2025 SCLERODERMA AB QUAL Negative Normal Negative [facility] Comment on above: Order Comment: Speci men Type: BLOOD SPECIMENOrdering Facility: [facility] Address: [address] [place] [address] Performed By: #### A NAIFR, 77513-6, 58429-8, 13444-7, 83742-9, 38019-0, 47533-3, 42268-4, 47301-3, 90655-9 ####[facility] LABCLIA [id number] [address] [address] [place] SCLERODERMA IGG AB <0.2 Normal <1.[address] [facility] Comment on above: Order Comment: Speci men Type: BLOOD SPECIMENOrdering Facility: [facility] Address: [address] [place] [address] Result Comment: Scl- 70/Scleroderma antibody test is used as an aid in diagnosis of systemic sclerosis especially the diffuse cutaneous form. A negative result cannot rule out systemic sclerosis. The final interpretation should consider clinical picture and other test results such as anti-centromere antibody. Test Methodology: Multiplex flow immunoassay. Performed By: #### A NAIFR, 13677-4, 72861-9, 74760-6, 50607-4, 28008-0, 00613-8, 02923-7, 66509-3, 78745-4 ####[facility] LABIA [id number] [address] [address] [place] Sjogrens syndrome-A extracta ble nuclear Ab Qn (S)on 03-01-2025 SSA ANTIBODY QUAL Negative Normal Negative [facility] Comment on above: Order Comment: Speci men Type: BLOOD SPECIMENOrdering Facility: [facility] Address: [address] [place] [address] Performed By: #### A NAIFR, 04316-0, 94883-5, 51137-7, 63850-3, 20886-6, 18809-4, 13194-3, 19886-7, 14098-2 ####[facility] LABIA [id number] [address] [address] [place] Sjogrens syndrome-B extracta ble nuclear Ab Qn (S)on 03-01-2025 SSB ANTIBODY QUAL Negative Normal Negative [facility] Comment on above: Order Comment: Speci men Type: BLOOD SPECIMENOrdering Facility: [facility] Address: [address] [place] [address] Performed By: #### A NAIFR, 12618-7, 96225-0, 89824-2, 83236-0, 74739-8, 63791-3, 22430-0, 23700-6, 24399-5 ####[facility] LABCLIA [id number] [place] [address] [place] Hawthorne extractable nuclear Ig G Qn (S)on 03-01-2025 SM ANTIBODY QUAL Negative Normal Negative [facility] Comment on above: Order Comment: Speci men Type: BLOOD SPECIMENOrdering Facility: [facility] Address: [address] [place] [address] Result Comment: Anti -Sm (Hawthorne) antibody is used as an aid in diagnosis of systemic lupus erythematosus and its presence is associated with renal disease. A negative result cannot rule out systemic lupus erythematosus. Clinical correlation is required.Test Methodology: Multiplex flow immunoassay. Performed By: #### A NAIFR, 23470-1, 72345-8, 35715-1, 05865-4, 29173-0, 44432-9, 52105-0, 19015-2, 19488-1 ####[facility] LABIA [id number] [place] [address] [place] TRYPTASE BLOODon 03-01-2025 Tryptase [Mass/Vol] 2.3 ug/L Normal <8.4 [facility] Comment on above: Order Comment: Speci men Type: BLOOD SPECIMENOrdering Facility: [facility] Address: [address] [place] [address] Performed By: #### T RYPT ####[facility] LABCLIA [id number] [address] [address] [place] Tryptase [Mass/Vol] 2.1 ug/L Normal <8.4 [facility] Comment on above: Order Comment: Speci men Type: BLOOD SPECIMENOrdering Facility: [facility] Address: [address] [place] [address] Performed By: #### T RYPT ####[facility] LABCLIA [id number] [facility] [address] [address] [place] CONSULTon 02-28-2025 CONSULT Normal [facility] CONSULT Normal [facility] Basic metabolic 2000 panelon 02-27-2025 Anion gap [Moles/Vol] 12 mmol/L Normal 8-15 [facility] Comment on above: Order Comment: Speci men Type: BLOOD SPECIMENOrdering Facility: [facility] Address: [address] [place] [address] Performed By: #### 2 4321-2 ####[facility] LABCLIA [id number] [place] [id number] [place] Calcium [Mass/Vol] 8.8 mg/dL Normal 8.5-10.[address] [facility] Comment on above: Order Comment: Speci men Type: BLOOD SPECIMENOrdering Facility: [facility] Address: [address] [place] [address] Performed By: #### 2 4321-2 ####[facility] LABCLIA [id number] [place] [address] [place] Chloride [Moles/Vol] 105 mmol/L Normal 98-107 [facility] Comment on above: Order Comment: Speci men Type: BLOOD SPECIMENOrdering Facility: [facility] Address: [address] [place], [place] [address] Performed By: #### 2 4321-2 ####[facility] LABCLIA [id number] [place] [id number] [place] CO2 [Moles/Vol] 22 mmol/L Normal 22-30 [facility] Comment on above: Order Comment: Speci men Type: BLOOD SPECIMENOrdering Facility: [facility] Address: [address] [place] [address] Performed By: #### 2 4321-2 ####[facility] LABIA [id number] [place] [id number] [place] [facility] Creatinine [Mass/Vol] 0.72 mg/dL Normal 0.58-0.96 [facility] Comment on above: Order Comment: Speci men Type: BLOOD SPECIMENOrdering Facility: [facility] Address: [address] [place] [address] Performed By: #### 2 4321-2 ####[facility] LABIA [id number] [address] OF [facility] Creatinine and Glomerular filtration rate.predicted panel (S/P/Bld) 113 mL/min/1.73m??? Normal >=60 [facility] Comment on above: Order Comment: Speci men Type: BLOOD SPECIMENOrdering Facility: [facility] Address: [address] [place] [address] Result Comment: Anne-Marie mated Glomerular Filtration Rate (eGFR) is calculated using the 2020 CKD-EPI creatinine equation. This equation utilizes serum creatinine, sex, and age as parameters. The creatinine assay has traceable calibration to isotope dilution-mass spectrometry. Refer to KDIGO guidelines for clinical interpretation. In patients with unstable renal function, e.g. those with acute kidney injury, the eGFR may not accurately reflect actual GFR. Performed By: #### 2 4321-2 ####[facility] LABIA [id number] [place] [address] [place] Glucose [Mass/Vol] 115 mg/dL High 74-[address] [facility] Comment on above: Order Comment: Speci men Type: BLOOD SPECIMENOrdering Facility: [facility] Address: [address] [place] [address] Result Comment: The [place] Diabetes [employer] (ADA) provides guidance for cutoff values for fasting glucose and random glucose. The ADA defines fasting as no caloric intake for at least 8 hours. Fasting plasma glucose results between 100 to 125 mg/dL indicate increased risk for diabetes (prediabetes).Fasting plasma glucose results greater than or equal to 126 mg/dL meet the criteria for diagnosis of diabetes. In the absence of unequivocal hyperglycemia, results should be confirmed by repeat testing. In a patient with classic symptoms of hyperglycemia or hyperglycemic crisis, random plasma glucose results greater than or equal to 200 mg/dL meet the criteria for diagnosis of diabetes.Reference: Standards of Medical Care in Diabetes 2016, [place] [employer]. Diabetes Care. 2016.39(Suppl 1). Performed By: #### 2 4321-2 ####[facility] LABIA [id number] [place] [address] [place] Potassium [Moles/Vol] 3.6 mmol/L Low 3.7-5.1 [facility] Comment on above: Order Comment: Speci men Type: BLOOD SPECIMENOrdering Facility: [facility] Address: [address] [place] [address] Performed By: #### 2 4321-2 ####[facility] [id number] [place] [address] [place] Sodium [Moles/Vol] 139 mmol/L Normal 136-[address] [facility] Comment on above: Order Comment: Darvini men Type: BLOOD SPECIMENOrdering Facility: [facility] Address: [address] [place] [address] Performed By: #### 2 4321-2 ####[facility] [id number] [place] [address] [place] Urea nitrogen [Mass/Vol] 11 mg/dL Normal 7-21 [facility] Comment on above: Order Comment: Speci men Type: BLOOD SPECIMENOrdering Facility: [facility] Address: [address] [place] [address] Performed By: #### 2 4321-2 ####[facility] [id number] [place] [address] [place] CBC W Auto Differential pane l (Bld)on 02-27-2025 Basophils (Bld) [#/Vol] 0.03 10*3/uL Normal <0.11 [facility] Comment on above: Order Comment: Speci men Type: BLOOD SPECIMENOrdering Facility: [facility] Address: [address] [place] [address] Performed By: #### 5 7021-8 ####[facility] LABCLIA [id number] [address] [place] [address] [place] Basophils/100 WBC (Bld) 0.4 % Normal [facility] Comment on above: Order Comment: Speci men Type: BLOOD SPECIMENOrdering Facility: [facility] Address: [address] [place] [address] Performed By: #### 5 7021-8 ####[facility] LABCLIA [id number] [address], [place] [address] [place] Differential cell count method Nom (Bld) Auto Normal [facility] Comment on above: Order Comment: Speci men Type: BLOOD SPECIMENOrdering Facility: [facility] Address: [address] [place] [address] Performed By: #### 5 7021-8 ####[facility] LABCLIA [id number] [address], [facility]95 [place] Eosinophils (Bld) [#/Vol] 0.13 10*3/uL Normal <0.46 [facility] Comment on above: Order Comment: Speci men Type: BLOOD SPECIMENOrdering Facility: [facility] Address: [address] [place] [address] Performed By: #### 5 7021-8 ####[facility] LABCLIA [id number] [address], [facility]95 [place] Eosinophils/100 WBC (Bld) 1.7 % Normal [facility] Comment on above: Order Comment: Speci men Type: BLOOD SPECIMENOrdering Facility: [facility] Address: [address] [place] [address] Performed By: #### 5 7021-8 ####[facility] LABCLIA [id number] [place] [address] [place] Erythrocyte distribution width (RBC) [Ratio] 13.6 % Normal 11.5-15.0 [facility] Comment on above: Order Comment: Speci men Type: BLOOD SPECIMENOrdering Facility: [facility] Address: [address] [place] [address] Performed By: #### 5 7021-8 ####[facility] LABCLIA [id number] [place] [address] [place] Hematocrit (Bld) [Volume fraction] 38.5 % Normal 36.0-46.0 [facility] Comment on above: Order Comment: Speci men Type: BLOOD SPECIMENOrdering Facility: [facility] Address: [address] [place] [address] Performed By: #### 5 7021-8 ####[facility] LABIA [id number] [place] [address] [place] Hemoglobin (Bld) [Mass/Vol] 12.9 g/dL Normal 11.5-15.5 [facility] Comment on above: Order Comment: Speci men Type: BLOOD SPECIMENOrdering Facility: [facility] Address: [address] [place] [address] Performed By: #### 5 7021-8 ####[facility] LABIA [id number] [place] [address] [place] Immature granulocytes (Bld) [#/Vol] 0.07 10*3/uL Normal <0.10 [facility] Comment on above: Order Comment: Speci men Type: BLOOD SPECIMENOrdering Facility: [facility] Address: [address] [place] [address] Performed By: #### 5 7021-8 ####[facility] LABIA [id number] [place] [address] [place] Immature granulocytes/100 WBC (Bld) 0.9 % Normal [facility] Comment on above: Order Comment: Speci men Type: BLOOD SPECIMENOrdering Facility: [facility] Address: [address] [place] [address] Performed By: #### 5 7021-8 ####[facility] LABCLIA [id number] [place] [address] [place] Lymphocytes (Bld) [#/Vol] 2.34 10*3/uL Normal 1.00-4.00 [facility] Comment on above: Order Comment: Speci men Type: BLOOD SPECIMENOrdering Facility: [facility] Address: [address] [place] [address] Performed By: #### 5 7021-8 ####[facility] LABCLIA [id number] [place] [address] [place] Lymphocytes/100 WBC (Bld) 30.1 % Normal [facility] Comment on above: Order Comment: Speci men Type: BLOOD SPECIMENOrdering Facility: [facility] Address: [address] [place] [address] Performed By: #### 5 7021-8 ####[facility] LABCLIA [id number] [place] [address] [place] MCH (RBC) [Entitic mass] 29.1 pg Normal 26.0-34.0 [facility] Comment on above: Order Comment: Speci men Type: BLOOD SPECIMENOrdering Facility: [facility] Address: [address] [place] [address] Performed By: #### 5 7021-8 ####[facility] LABCLIA [id number] [place] [address] [place] MCHC (RBC) [Mass/Vol] 33.5 g/dL Normal 30.5-36.0 [facility] Comment on above: Order Comment: Speci men Type: BLOOD SPECIMENOrdering Facility: [facility] Address: [address] [place] [address] Performed By: #### 5 7021-8 ####[facility] LABCLIA [id number] [place] [address] [place] MCV (RBC) [Entitic vol] 86.7 fL Normal 80.0-100.0 [facility] Comment on above: Order Comment: Speci men Type: BLOOD SPECIMENOrdering Facility: [facility] Address: [address] [place] [address] Performed By: #### 5 7021-8 ####[facility] LABCLIA [id number] [place] [address] [place] Monocytes (Bld) [#/Vol] 0.37 10*3/uL Normal <0.87 [facility] Comment on above: Order Comment: Speci men Type: BLOOD SPECIMENOrdering Facility: [facility] Address: [address] [place] [address] Performed By: #### 5 7021-8 ####[facility] LABIA [id number] [place] [address] [place] Monocytes/100 WBC (Bld) 4.8 % Normal [facility] Comment on above: Order Comment: Speci men Type: BLOOD SPECIMENOrdering Facility: [facility] Address: [address] [place] [address] Performed By: #### 5 7021-8 ####[facility] LABCLIA [id number] [place] [address] [place] Neutrophils (Bld) [#/Vol] 4.83 10*3/uL Normal 1.45-7.50 [facility] Comment on above: Order Comment: Speci men Type: BLOOD SPECIMENOrdering Facility: [facility] Address: [address] [place] [address] Performed By: #### 5 7021-8 ####[facility] LABIA [id number] [place] [address] [place] Neutrophils/100 WBC (Bld) 62.1 % Normal [facility] Comment on above: Order Comment: Speci men Type: BLOOD SPECIMENOrdering Facility: [facility] Address: [address] [place] [address] Performed By: #### 5 7021-8 ####[facility] LABCLIA [id number] [facility] [address], [facility] [place] Nucleated RBC (Bld) [#/Vol] 10*3/uL Normal <0.01 [facility] Comment on above: Order Comment: Speci men Type: BLOOD SPECIMENOrdering Facility: [facility] Address: [address] [place] [address] Performed By: #### 5 7021-8 ####[facility] LABCLIA [id number] [facility] [address], [place] [address] [place] Nucleated RBC/100 WBC (Bld) [Ratio] 0.0 /100 WBC Normal [facility] Comment on above: Order Comment: Speci men Type: BLOOD SPECIMENOrdering Facility: [facility] Address: [address] [place] [address] Performed By: #### 5 7021-8 ####[facility] LABCLIA [id number] [address], [place] [address] [place] Platelet mean volume (Bld) [Entitic vol] 9.9 fL Normal 9.0-12.7 [facility] Comment on above: Order Comment: Speci men Type: BLOOD SPECIMENOrdering Facility: [facility] Address: [address] [place] [address] Performed By: #### 5 7021-8 ####[facility] LABCLIA [id number] [place] [id number] [place] Platelets (Bld) [#/Vol] 259 10*3/uL Normal 150-400 [facility] Comment on above: Order Comment: Speci men Type: BLOOD SPECIMENOrdering Facility: [facility] Address: [address] [place] [address] Performed By: #### 5 7021-8 ####[facility] LABCLIA [id number] [place] [address] [place] RBC (Bld) [#/Vol] 4.44 10*6/uL Normal 3.90-5.20 [facility] Comment on above: Order Comment: Speci men Type: BLOOD SPECIMENOrdering Facility: [facility] Address: [address] [place] [address] Performed By: #### 5 7021-8 ####[facility] LABCLIA [id number] [place] [address] [place] WBC (Bld) [#/Vol] 7.77 10*3/uL Normal 3.70-11.00 [facility] Comment on above: Order Comment: Speci men Type: BLOOD SPECIMENOrdering Facility: [facility] Address: [address] [place] [address] Performed By: #### 5 7021-8 ####[facility] LABIA [id number] [place] [address] [place] CONSULTon 02-27-2025 CONSULT Normal [facility] ED NOTEon 02-27-2025 ED NOTE HNO ID: [id number] Author: CARMEN DARDEN RN Service: ? Author Type: Registered Nurse Type: ED Notes Filed: 02/27/2025 16:44 Note Text: Bed: E18-11 Expected date: Expected time: Means of arrival: Comments: ems Normal [facility] ED PROV NOTEon 02-27-2025 ED PROV NOTE Normal [facility] ED Triage Noteon 02-27-2025 ED Triage Note Normal [facility] HISTORY PHYSICALon HISTORY PHYSICAL Normal [facility] CNPNon 02-15-2025 CNPN Normal [facility] Bacteria Bld Culton 02-15-20 Bacteria identified Cx Nom (Bld) CULTURE, BLOOD: No growth 5 days Normal [facility] Comment on above: Performed By: #### 6 00-7 ####[facility] LABCLIA [id number] [address] [place] [address] [place] Bacteria identified Cx Nom (Bld) CULTURE, BLOOD: No growth 5 days Normal [facility] Comment on above: Performed By: #### 6 00-7 ####[facility] LABCLIA [id number] [address] [address] [place] Bacteria Wnd Culton 02-15-20 Bacteria identified Cx Nom (Wound) CULTURE, WOUND: No growth GRAM STAIN: No organisms seen No Polymorphonuclear Leukocytes Normal [facility] Comment on above: Performed By: #### 6 462-6 ####[facility] LABCLIA [id number] [address], [place] [address] [place] CBC W Auto Differential pane l (Bld)on 02-14-2025 Basophils (Bld) [#/Vol] 0.04 10*3/uL Normal <0.11 [facility] Comment on above: Order Comment: Speci men Type: BLOOD SPECIMENOrdering Facility: [facility] Address: [address] [place] [address] Performed By: #### 5 7021-8 ####[facility] LWCLIA [id number] [place] [address] [place] Basophils/100 WBC (Bld) 0.4 % Normal [facility] Comment on above: Order Comment: Speci men Type: BLOOD SPECIMENOrdering Facility: [facility] Address: [address] [place] [address] Performed By: #### 5 7021-8 ####[facility] LWCLIA [id number] [place] [address] [place] Differential cell count method Nom (Bld) Auto Normal [facility] Comment on above: Order Comment: Speci men Type: BLOOD SPECIMENOrdering Facility: [facility] Address: [address] [place] [address] Performed By: #### 5 7021-8 ####[facility] LWCLIA [id number] [place] [id number] [place] Eosinophils (Bld) [#/Vol] 0.14 10*3/uL Normal <0.46 [facility] Comment on above: Order Comment: Speci men Type: BLOOD SPECIMENOrdering Facility: [facility] Address: [address] [place] [address] Performed By: #### 5 7021-8 ####[facility] LWCLIA [id number] [place] [address] [place] Eosinophils/100 WBC (Bld) 1.6 % Normal [facility] Comment on above: Order Comment: Speci men Type: BLOOD SPECIMENOrdering Facility: [facility] Address: [address] [place] [address] Performed By: #### 5 7021-8 ####[facility] LWCLIA [id number] [place] [address] [place] Erythrocyte distribution width (RBC) [Ratio] 13.4 % Normal 11.5-15.0 [facility] Comment on above: Order Comment: Speci men Type: BLOOD SPECIMENOrdering Facility: [facility] Address: [address] [place] [address] Performed By: #### 5 7021-8 ####[facility] LWCLIA [id number] [place] [id number] [place] Hematocrit (Bld) [Volume fraction] 42.3 % Normal 36.0-46.0 [facility] Comment on above: Order Comment: Speci men Type: BLOOD SPECIMENOrdering Facility: [facility] Address: [address] [place] [address] Performed By: #### 5 7021-8 ####[facility] LWCLIA [id number] [place] [id number] [place] Hemoglobin (Bld) [Mass/Vol] 14.1 g/dL Normal 11.5-15.5 [facility] Comment on above: Order Comment: Speci men Type: BLOOD SPECIMENOrdering Facility: [facility] Address: [address] [place] [address] Performed By: #### 5 7021-8 ####[facility] LWCLIA [id number] [place] [id number] [place] Immature granulocytes (Bld) [#/Vol] 0.10 10*3/uL High <0.10 [facility] Comment on above: Order Comment: Speci men Type: BLOOD SPECIMENOrdering Facility: [facility] Address: [address] [place] [address] Performed By: #### 5 7021-8 ####[facility] LWCLIA [id number] [place] [address] [place] Immature granulocytes/100 WBC (Bld) 1.1 % Normal [facility] Comment on above: Order Comment: Speci men Type: BLOOD SPECIMENOrdering Facility: [facility] Address: [address] [place] [address] Performed By: #### 5 7021-8 ####[facility] LWCLIA [id number] [place] [address] [place] Lymphocytes (Bld) [#/Vol] 3.63 10*3/uL Normal 1.00-4.00 [facility] Comment on above: Order Comment: Speci men Type: BLOOD SPECIMENOrdering Facility: [facility] Address: [address] [place] [address] Performed By: #### 5 7021-8 ####[facility] LWCLIA [id number] [place] [id number] [place] Lymphocytes/100 WBC (Bld) 40.2 % Normal [facility] Comment on above: Order Comment: Speci men Type: BLOOD SPECIMENOrdering Facility: [facility] Address: [address] [place] [address] Performed By: #### 5 7021-8 ####[facility] LWCLIA [id number] [address] MCH (RBC) [Entitic mass] 29.3 pg Normal 26.0-34.0 [facility] Comment on above: Order Comment: Speci men Type: BLOOD SPECIMENOrdering Facility: [facility] Address: [address] [place] [address] Performed By: #### 5 7021-8 ####[facility] LWIA [id number] [address] MCHC (RBC) [Mass/Vol] 33.3 g/dL Normal 30.5-36.0 [facility] Comment on above: Order Comment: Speci men Type: BLOOD SPECIMENOrdering Facility: [facility] Address: [address] [place] [address] Performed By: #### 5 7021-8 ####[id number] [address] MCV (RBC) [Entitic vol] 87.8 fL Normal 80.0-100.0 [facility] Comment on above: Order Comment: Speci men Type: BLOOD SPECIMENOrdering Facility: [facility] Address: [address] [place] [address] Performed By: #### 5 7021-8 ####[facility] LWCLIA [id number] [address] [place] Monocytes (Bld) [#/Vol] 0.57 10*3/uL Normal <0.87 [facility] Comment on above: Order Comment: Speci men Type: BLOOD SPECIMENOrdering Facility: [facility] Address: [address] [place] [address] Performed By: #### 5 7021-8 ####[facility] LWIA [id number] [place] [id number] [facility] Monocytes/100 WBC (Bld) 6.3 % Normal [facility] Comment on above: Order Comment: Speci men Type: BLOOD SPECIMENOrdering Facility: [facility] Address: [address] [place] [address] Performed By: #### 5 7021-8 ####[facility] LWCLIA [id number] [place] [id number] [facility] [place] Neutrophils (Bld) [#/Vol] 4.55 10*3/uL Normal 1.45-7.50 [facility] Comment on above: Order Comment: Speci men Type: BLOOD SPECIMENOrdering Facility: [facility] Address: [address] [place] [address] Performed By: #### 5 7021-8 ####[facility] LWCLIA [id number] [place] [id number] [facility] Neutrophils/100 WBC (Bld) 50.4 % Normal [facility] Comment on above: Order Comment: Speci men Type: BLOOD SPECIMENOrdering Facility: [facility] Address: [address] [place] [address] Performed By: #### 5 7021-8 ####[facility] LWCLIA [id number] [place] [address] [place] Nucleated RBC (Bld) [#/Vol] 10*3/uL Normal <0.01 [facility] Comment on above: Order Comment: Speci men Type: BLOOD SPECIMENOrdering Facility: [facility] Address: [address] [place] [address] Performed By: #### 5 7021-8 ####[facility] LWCLIA [id number] [place] [id number] [facility] Nucleated RBC/100 WBC (Bld) [Ratio] 0.0 /100 WBC Normal [facility] Comment on above: Order Comment: Speci men Type: BLOOD SPECIMENOrdering Facility: [facility] Address: [address] [place] [address] Performed By: #### 5 7021-8 ####[facility] LWCLIA [id number] [place] [id number] [place] Platelet mean volume (Bld) [Entitic vol] 10.1 fL Normal 9.0-12.7 [facility] Comment on above: Order Comment: Speci men Type: BLOOD SPECIMENOrdering Facility: [facility] Address: [address] [place] [address] Performed By: #### 5 7021-8 ####[facility] LWCLIA [id number] [place] [id number] [place] Platelets (Bld) [#/Vol] 299 10*3/uL Normal 150-400 [facility] Comment on above: Order Comment: Speci men Type: BLOOD SPECIMENOrdering Facility: [facility] Address: [address] [place] [address] Performed By: #### 5 7021-8 ####[facility] LWCLIA [id number] [place] [id number] [place] RBC (Bld) [#/Vol] 4.82 10*6/uL Normal 3.90-5.20 [facility] Comment on above: Order Comment: Speci men Type: BLOOD SPECIMENOrdering Facility: [facility] Address: [address] [place] [address] Performed By: #### 5 7021-8 ####[facility] LWCLIA [id number] [place] [id number] [place] WBC (Bld) [#/Vol] 9.03 10*3/uL Normal 3.70-11.00 [facility] Comment on above: Order Comment: Speci men Type: BLOOD SPECIMENOrdering Facility: [facility] Address: [address] [place] [address] Performed By: #### 5 7021-8 ####[facility] LWCLIA [id number] [place] [id number] [place] CNPNon 02-14-2025 CNPN Normal [facility] Comprehensive metabolic 2000 panelon 02-14-2025 Albumin [Mass/Vol] 4.7 g/dL Normal 3.9-4.[address] [facility] Comment on above: Order Comment: Speci men Type: BLOOD SPECIMENOrdering Facility: [facility] Address: [address] [place] [address] Performed By: #### 2 4323-8 ####[facility] LWCLIA [id number] [place] [address] [place] ALP [Catalytic activity/Vol] 133 U/L High 34-123 [facility] Comment on above: Order Comment: Speci men Type: BLOOD SPECIMENOrdering Facility: [facility] Address: [address] [place] [address] Performed By: #### 2 4323-8 ####[facility] LWCLIA [id number] [place] [address] [place] ALT [Catalytic activity/Vol] 40 U/L High 7-38 [facility] Comment on above: Order Comment: Speci men Type: BLOOD SPECIMENOrdering Facility: [facility] Address: [address] [place] [address] Performed By: #### 2 4323-8 ####[facility] LWCLIA [id number] [place] [address] [place] Anion gap [Moles/Vol] 12 mmol/L Normal 8-15 [facility] Comment on above: Order Comment: Speci men Type: BLOOD SPECIMENOrdering Facility: [facility] Address: [address] [place] [address] Performed By: #### 2 4323-8 ####[facility] LWCLIA [id number] [place] [id number] [place] AST [Catalytic activity/Vol] 22 U/L Normal 13-35 [facility] Comment on above: Order Comment: Speci men Type: BLOOD SPECIMENOrdering Facility: [facility] Address: [address] [place] [address] Performed By: #### 2 4323-8 ####[facility] LWCLIA [id number] [place] [address] [place] Bilirubin [Mass/Vol] 0.2 mg/dL Normal 0.2-1.3 [facility] Comment on above: Order Comment: Speci men Type: BLOOD SPECIMENOrdering Facility: [facility] Address: [address] [place] [address] Performed By: #### 2 4323-8 ####[facility] LWCLIA [id number] [place] [id number] [place] Calcium [Mass/Vol] 9.5 mg/dL Normal 8.5-10.[address] [facility] Comment on above: Order Comment: Speci men Type: BLOOD SPECIMENOrdering Facility: [facility] Address: [address] [place] [address] Performed By: #### 2 4323-8 ####[facility] LWCLIA [id number] [place] [address] [place] Chloride [Moles/Vol] 102 mmol/L Normal 98-107 [facility] Comment on above: Order Comment: Speci men Type: BLOOD SPECIMENOrdering Facility: [facility] Address: [address] [place] [address] Performed By: #### 2 4323-8 ####[facility] LWCLIA [id number] [place] [address] [place] CO2 [Moles/Vol] 26 mmol/L Normal 22-30 [facility] Comment on above: Order Comment: Speci men Type: BLOOD SPECIMENOrdering Facility: [facility] Address: [address] [place] [address] Performed By: #### 2 4323-8 ####[facility] LWCLIA [id number] [place] [address] [place] Creatinine [Mass/Vol] 0.75 mg/dL Normal 0.58-0.96 [facility] Comment on above: Order Comment: Speci men Type: BLOOD SPECIMENOrdering Facility: [facility] Address: [address] [place] [address] Performed By: #### 2 4323-8 ####[facility] LWCLIA [id number] [address] Creatinine and Glomerular filtration rate.predicted panel (S/P/Bld) 107 mL/min/1.73m??? Normal >=60 [facility] Comment on above: Order Comment: Mookie roberts Type: BLOOD SPECIMENOrdering Facility: [facility] Address: [address] [place] [address] Result Comment: Anne-Marie mated Glomerular Filtration Rate (eGFR) is calculated using the 2020 CKD-EPI creatinine equation. This equation utilizes serum creatinine, sex, and age as parameters. The creatinine assay has traceable calibration to isotope dilution-mass spectrometry. Refer to KDIGO guidelines for clinical interpretation. In patients with unstable renal function, e.g. those with acute kidney injury, the eGFR may not accurately reflect actual GFR. Performed By: #### 2 4323-8 ####[facility] LWCLIA [id number] [place] [address] [place] Glucose [Mass/Vol] 92 mg/dL Normal 74-[address] [facility] Comment on above: Order Comment: Mookie roberts Type: BLOOD SPECIMENOrdering Facility: [facility] Address: [address] [place] [address] Result Comment: The [place] [employer] (ADA) provides guidance for cutoff values for fasting glucose and random glucose. The ADA defines fasting as no caloric intake for at least 8 hours. Fasting plasma glucose results between 100 to 125 mg/dL indicate increased risk for diabetes (prediabetes).Fasting plasma glucose results greater than or equal to 126 mg/dL meet the criteria for diagnosis of diabetes. In the absence of unequivocal hyperglycemia, results should be confirmed by repeat testing. In a patient with classic symptoms of hyperglycemia or hyperglycemic crisis, random plasma glucose results greater than or equal to 200 mg/dL meet the criteria for diagnosis of diabetes.Reference: Standards of Medical Care in Diabetes 2016, [place] [employer]. Diabetes Care. 2016.39(Suppl 1). Performed By: #### 2 4323-8 ####[facility] LWCLIA [id number] [place] [id number] [place] Potassium [Moles/Vol] 4.0 mmol/L Normal 3.7-5.1 [facility] Comment on above: Order Comment: Speci men Type: BLOOD SPECIMENOrdering Facility: [facility] Address: [address] [place] [address] Performed By: #### 2 4323-8 ####[facility] LWCLIA [id number] [place] [id number] [place] Protein [Mass/Vol] 7.3 g/dL Normal 6.3-8.[address] [facility] Comment on above: Order Comment: Speci men Type: BLOOD SPECIMENOrdering Facility: [facility] Address: [address] [place] [address] Performed By: #### 2 4323-8 ####[facility] LWCLIA [id number] [place] [id number] [place] Sodium [Moles/Vol] 140 mmol/L Normal 136-[address] [facility] Comment on above: Order Comment: Speci men Type: BLOOD SPECIMENOrdering Facility: [facility] Address: [address] [place] [address] Performed By: #### 2 4323-8 ####[facility] LWCLIA [id number] [place] [id number] [place] Urea nitrogen [Mass/Vol] 15 mg/dL Normal 7-21 [facility] Comment on above: Order Comment: Speci men Type: BLOOD SPECIMENOrdering Facility: [facility] Address: [address] [place] [address] Performed By: #### 2 4323-8 ####[facility] LWCLIA [id number] [place] [id number] [place] ED NOTEon 02-14-2025 ED NOTE Normal [facility] ED NOTE Normal [facility] ED NOTE HNO ID: [id number] Author: TINO BARBOSA RN Service: ? Author Type: Registered Nurse Type: ED Notes Filed: 02/14/2025 20:54 Note Text: US at bedside Normal [facility] ED NOTE Normal [facility] ED PROV NOTEon 02-14-2025 ED PROV NOTE Normal [facility] ED Triage Noteon 02-14-2025 ED Triage Note Normal [facility] US CHEST WALL/SOFT TISSUEon 02-14-2025 US CHEST WALL/SOFT TISSUE Invalid Interpretation Code [facility] CNOVon 02-01-2025 CNOV Normal [facility] DBT Breast - bilateral diagn ostic for implanton 02-01-2025 IMPRESSION: Finding 1: Mass in the left breast at 8 o'clock, 3 cm from the nipple is benign. This is consistent with an oil cyst. Finding 2: Duct ectasias in both breasts are benign. Finding 3: Masses in the left breast at 9 o'clock are benign. This is consistent with multiple oil cysts. There is no suspicious imaging finding to correspond with the area of clinical concern. Clinical correlation and follow-up is recommended. BI-RADS Category 2: Benign RISK: Based on the Tyrer-Cuzick (TC) risk assessment model, this patient has a 20.3% lifetime risk of developing breast cancer, meaning they are at high risk for developing breast cancer. However, this is only an estimate based on available history provided on the patient's questionnaire. Because patients with a lifetime risk of 20% or greater may benefit from additional supplemental screening, we encourage a full breast clinical evaluation and comprehensive breast cancer risk assessment to guide further decision making. For more information regarding the management of high-risk patients, the following is a link to the [facility] care path [email or web address] m/dotNet/documents/?docid =87066. Additionally, a referral to the [facility] is also appropriate. Interpreting Radiologist: James Daniel M.D. Resident/Fellow: Ken Sandoval D.O. Electronically signed on: 02/01/2025 Beauty School Instructor: MILLA Transcribe Date/Time: Feb 01 2025 10:58A Dictated by : KEN SANDOVAL, DO This examination was interpreted and the report reviewed and electronically signed by: JAMES DANIEL MD on Feb 01 2025 12:40PM [facility] DIVISION OF RADIOLOGY * * *Final Report* * * Comments: FINDINGS/RESULT: Targeted ultrasound of medial left breast mul Diagnosis: Breast lesion [facility] - Page: 1 Name: ROSALVA HUANG MR#: [id number] Printed: 02/01/2025 12:45:34 * * *Final Report* * * DATE OF EXAM: Feb 01 2025 11:29AM W 0627 - JUDITH DIAG W TORIN AMMON / PROCEDURE REASON: Breast lesion * * * * Physician Interpretation * * * * RESULT: [address] [place] [address] #[id number] - JUDITH DIAG W TORIN AMMON #[id number] - [facility] [employer] BREAST LTD RT #[id number] - [facility] BREAST LTD LT HISTORY: 35 year-old patient seen for diagnostic evaluation of non-bloody discharge in both breasts and the finding(s) described on prior ultrasound in the left breast. Patient states no personal history of breast cancer. The patient has a family history of breast cancer. COMPARISON STUDIES: This is a baseline study. MAMMOGRAM TECHNIQUE: The study was acquired using full field digital technology and interpreted from soft copy. Digital Breast Tomosynthesis (DBT) images were obtained and used to assist in the interpretation of this examination. Computer-aided detection was utilized by the radiologist in the interpretation of this examination. MAMMOGRAM FINDINGS: The breasts are heterogeneously dense, which may obscure small masses. Finding 1: There is a fat-containing round asymmetry in the lower inner quadrant of the left breast, anterior depth. Round asymmetry correlates to the area of palpable concern in the left breast. Finding 2: There are duct ectasias in both breasts. Findings correlate to the non-bloody nipple discharge in both breasts. Finding 3: There are two fat-containing masses in the upper outer quadrant of the left breast, middle depth. ULTRASOUND TECHNIQUE: Targeted ultrasound of the indicated area was performed. Goodman scale images were saved. ULTRASOUND FINDINGS: Finding 1: Ultrasound demonstrates a round mass with circumscribed margins measuring 1.1 cm in the left breast at 8 o'clock, 3 cm from the nipple. Finding correlates to the area of palpable concern in the left breast. This is consistent with an oil cyst. Finding 3: Ultrasound demonstrates multiple oval masses in the left breast at 9 o'clock. This is consistent with multiple oil cysts. In the right breast, there is no evidence of any solid mass or other abnormality. DIVISION OF RADIOLOGY [facility]/01/[facility]25 * * *Final Report* * * Comments: FINDINGS/RESULT: Targeted ultrasound of medial left breast mul Diagnosis: Breast lesion [facility] Page: 1 Name: ROSALVA HUANG MR#: [id number] Printed: 02/01/2025 12:45:34 * * *Final Report* * * DATE OF EXAM: Feb 01 2025 11:29AM W 0627 - JUDITH DIAG W TORIN AMMON / PROCEDURE REASON: Breast lesion * * * * Physician Interpretation * * * * RESULT: [address] [place] [address] #[id number] - JUDITH DIAG W TORIN AMMON #[id number] - [employer] US BREAST LTD RT #[id number] - [facility] US BREAST LTD LT HISTORY: 35 year-old patient seen for diagnostic evaluation of non-bloody discharge in both breasts and the finding(s) described on prior ultrasound in the left breast. Patient states no personal history of breast cancer. The patient has a family history of breast cancer. COMPARISON STUDIES: This is a baseline study. MAMMOGRAM TECHNIQUE: The study was acquired using full field digital technology and interpreted from soft copy. Digital Breast Tomosynthesis (DBT) images were obtained and used to assist in the interpretation of this examination. Computer-aided detection was utilized by the radiologist in the interpretation of this examination. MAMMOGRAM FINDINGS: The breasts are heterogeneously dense, which may obscure small masses. Finding 1: There is a fat-containing round asymmetry in the lower inner quadrant of the left breast, anterior depth. Round asymmetry correlates to the area of palpable concern in the left breast. Finding 2: There are duct ectasias in both breasts. Findings correlate to the non-bloody nipple discharge in both breasts. Finding 3: There are two fat-containing masses in the upper outer quadrant of the left breast, middle depth. ULTRASOUND TECHNIQUE: Targeted ultrasound of the indicated area was performed. Goodman scale images were saved. ULTRASOUND FINDINGS: Finding 1: Ultrasound demonstrates a round mass with circumscribed margins measuring 1.1 cm in the left breast at 8 o'clock, 3 cm from the nipple. Finding correlates to the area of palpable concern in the left breast. This is consistent with an oil cyst. Finding 3: Ultrasound demonstrates multiple oval masses in the left breast at 9 o'clock. This is consistent with multiple oil cysts. In the right breast, there is no evidence of any solid mass or other abnormality. IMPRESSION IMPRESSION: Finding 1: Mass in the left breast at 8 o'clock, 3 cm from the nipple is benign. This is consistent with an oil cyst. Finding 2: Duct ectasias in both breasts are benign. Finding 3: Masses in the left breast at 9 o'clock are benign. This is consistent with multiple oil cysts. There is no suspicious imaging finding to correspond with the area of clinical concern. Clinical correlation and follow-up is recommended. BI-RADS Category 2: Benign RISK: Based on the Tyrer-Cuzick (TC) risk assessment model, this patient has a 20.3% lifetime risk of developing breast cancer, meaning they are at high risk for developing breast cancer. However, this is only an estimate based on available history provided on the patient's questionnaire. Because patients with a lifetime risk of 20% or greater may benefit from additional supplemental screening, we encourage a full breast clinical evaluation and comprehensive breast cancer risk assessment to guide further decision making. For more information regarding the management of high-risk patients, the following is a link to the [facility] care path [email or web address]/documents/?docid =55004. Additionally, a referral to the [facility] is also appropriate. Interpreting Radiologist: James Daniel M.D. Resident/Fellow: Ken Sandoval D.O. Electronically signed on: 02/01/2025 Beauty School Instructor: MILLA Transcrierich Date/Time: Feb 01 2025 10:58A Dictated by : KEN SANDOVAL, DO This examination was interpreted and the report reviewed and electronically signed by: JAMES DANIEL MD on Feb 01 2025 12:40PM [facility] [place] 2024 JUDITH DIAG W TORIN AMMON Normal [facility] JUDITH US BREAST LTD LTon 02-01 JUDITH US BREAST LTD LT Normal [facility] JUDITH US BREAST LTD RTon 02-01 JUDITH US BREAST LTD RT Normal [facility] No Panel InformationOrdered By: [facility] Provider on 02-01-2025 [facility] No Panel Informationon 02-01 Radiology Study observation (narrative) [facility] US Breast - left limitedon 0 02-01-2025 IMPRESSION: Finding 1: Mass in the left breast at 8 o'clock, 3 cm from the nipple is benign. This is consistent with an oil cyst. Finding 2: Duct ectasias in both breasts are benign. Finding 3: Masses in the left breast at 9 o'clock are benign. This is consistent with multiple oil cysts. There is no suspicious imaging finding to correspond with the area of clinical concern. Clinical correlation and follow-up is recommended. BI-RADS Category 2: Benign RISK: Based on the Tyrer-Cuzick (TC) risk assessment model, this patient has a 20.3% lifetime risk of developing breast cancer, meaning they are at high risk for developing breast cancer. However, this is only an estimate based on available history provided on the patient's questionnaire. Because patients with a lifetime risk of 20% or greater may benefit from additional supplemental screening, we encourage a full breast clinical evaluation and comprehensive breast cancer risk assessment to guide further decision making. For more information regarding the management of high-risk patients, the following is a link to the [facility] care path [email or web address]/[email or web address]/documents/?docid =72309. Additionally, a referral to the [facility] is also appropriate. Interpreting Radiologist: James Daniel M.D. Resident/Fellow: Ken Sandoval D.O. Electronically signed on: 02/01/2025 Beauty School Instructor: MILLA Khanrierich Date/Time: Feb 01 2025 12:03P Dictated by : KEN SANDOVAL, DO This examination was interpreted and the report reviewed and electronically signed by: JAMES DANIEL MD on Feb 01 2025 12:40PM [facility] DIVISION OF RADIOLOGY * * *Final Report* * * DATE OF EXAM: Feb 01 2025 12:06PM [facility] [id number] - [facility] US BREAST LTD LT / PROCEDURE REASON: Breast lesion * * * * Physician Interpretation * * * * RESULT: [address] [place] [id number] #[id number] - [facility] [place] [facility] AMMON #[id number] - [facility] US BREAST LTD RT #[id number] - [facility] US BREAST LTD LT HISTORY: 35 year-old patient seen for diagnostic evaluation of non-bloody discharge in both breasts and the finding(s) described on prior ultrasound in the left breast. Patient states no personal history of breast cancer. The patient has a family history of breast cancer. COMPARISON STUDIES: This is a baseline study. MAMMOGRAM TECHNIQUE: The study was acquired using full field digital technology and interpreted from soft copy. Digital Breast Tomosynthesis (DBT) images were obtained and used to assist in the interpretation of this examination. Computer-aided detection was utilized by the radiologist in the interpretation of this examination. MAMMOGRAM FINDINGS: The breasts are heterogeneously dense, which may obscure small masses. Finding 1: There is a fat-containing round asymmetry in the lower inner quadrant of the left breast, anterior depth. Round asymmetry correlates to the area of palpable concern in the left breast. Finding 2: There are duct ectasias in both breasts. Findings correlate to the non-bloody nipple discharge in both breasts. Finding 3: There are two fat-containing masses in the upper outer quadrant of the left breast, middle depth. ULTRASOUND TECHNIQUE: Targeted ultrasound of the indicated area was performed. Goodman scale images were saved. ULTRASOUND FINDINGS: Finding 1: Ultrasound demonstrates a round mass with circumscribed margins measuring 1.1 cm in the left breast at 8 o'clock, 3 cm from the nipple. Finding correlates to the area of palpable concern in the left breast. This is consistent with an oil cyst. Finding 3: Ultrasound demonstrates multiple oval masses in the left breast at 9 o'clock. This is consistent with multiple oil cysts. In the right breast, there is no evidence of any solid mass or other abnormality. DIVISION OF RADIOLOGY [facility]01/[facility]25 * * *Final Report* * * DATE OF EXAM: Feb 01 2025 12:06PM W 0593 - [facility] US BREAST LTD LT / PROCEDURE REASON: Breast lesion * * * * Physician Interpretation * * * * RESULT: [address] [place] [address] #[id number] - [facility] LAMONT HARKINS AMMON #[id number] - [facility] US BREAST LTD RT #[id number] - [facility] US BREAST LTD LT HISTORY: 35 year-old patient seen for diagnostic evaluation of non-bloody discharge in both breasts and the finding(s) described on prior ultrasound in the left breast. Patient states no personal history of breast cancer. The patient has a family history of breast cancer. COMPARISON STUDIES: This is a baseline study. MAMMOGRAM TECHNIQUE: The study was acquired using full field digital technology and interpreted from soft copy. Digital Breast Tomosynthesis (DBT) images were obtained and used to assist in the interpretation of this examination. Computer-aided detection was utilized by the radiologist in the interpretation of this examination. MAMMOGRAM FINDINGS: The breasts are heterogeneously dense, which may obscure small masses. Finding 1: There is a fat-containing round asymmetry in the lower inner quadrant of the left breast, anterior depth. Round asymmetry correlates to the area of palpable concern in the left breast. Finding 2: There are duct ectasias in both breasts. Findings correlate to the non-bloody nipple discharge in both breasts. Finding 3: There are two fat-containing masses in the upper outer quadrant of the left breast, middle depth. ULTRASOUND TECHNIQUE: Targeted ultrasound of the indicated area was performed. Goodman scale images were saved. ULTRASOUND FINDINGS: Finding 1: Ultrasound demonstrates a round mass with circumscribed margins measuring 1.1 cm in the left breast at 8 o'clock, 3 cm from the nipple. Finding correlates to the area of palpable concern in the left breast. This is consistent with an oil cyst. Finding 3: Ultrasound demonstrates multiple oval masses in the left breast at 9 o'clock. This is consistent with multiple oil cysts. In the right breast, there is no evidence of any solid mass or other abnormality. IMPRESSION IMPRESSION: Finding 1: Mass in the left breast at 8 o'clock, 3 cm from the nipple is benign. This is consistent with an oil cyst. Finding 2: Duct ectasias in both breasts are benign. Finding 3: Masses in the left breast at 9 o'clock are benign. This is consistent with multiple oil cysts. There is no suspicious imaging finding to correspond with the area of clinical concern. Clinical correlation and follow-up is recommended. BI-RADS Category 2: Benign RISK: Based on the Tyrer-Cuzick (TC) risk assessment model, this patient has a 20.3% lifetime risk of developing breast cancer, meaning they are at high risk for developing breast cancer. However, this is only an estimate based on available history provided on the patient's questionnaire. Because patients with a lifetime risk of 20% or greater may benefit from additional supplemental screening, we encourage a full breast clinical evaluation and comprehensive breast cancer risk assessment to guide further decision making. For more information regarding the management of high-risk patients, the following is a link to the [facility] care path [email or web address]/documents/?docid =28786. Additionally, a referral to the [facility] Breast Clinic is also appropriate. Interpreting Radiologist: James Daniel M.D. Resident/Fellow: Ken Sandoval D.O. Electronically signed on: 02/01/2025 Beauty School Instructor: MILLA Transcribe Date/Time: Feb 01 2025 12:03P Dictated by : KEN SANDOVAL DO This examination was interpreted and the report reviewed and electronically signed by: JAMES DANIEL MD on Feb 01 2025 12:40PM EST [facility] US Breast - right limitedon 02-01-2025 IMPRESSION: Finding 1: Mass in the left breast at 8 o'clock, 3 cm from the nipple is benign. This is consistent with an oil cyst. Finding 2: Duct ectasias in both breasts are benign. Finding 3: Masses in the left breast at 9 o'clock are benign. This is consistent with multiple oil cysts. There is no suspicious imaging finding to correspond with the area of clinical concern. Clinical correlation and follow-up is recommended. BI-RADS Category 2: Benign RISK: Based on the Tyrer-Cuzick (TC) risk assessment model, this patient has a 20.3% lifetime risk of developing breast cancer, meaning they are at high risk for developing breast cancer. However, this is only an estimate based on available history provided on the patient's questionnaire. Because patients with a lifetime risk of 20% or greater may benefit from additional supplemental screening, we encourage a full breast clinical evaluation and comprehensive breast cancer risk assessment to guide further decision making. For more information regarding the management of high-risk patients, the following is a link to the [facility] care path [email or web address]/documents/?docid =83054. Additionally, a referral to the [facility] Breast Clinic is also appropriate. Interpreting Radiologist: James Daniel M.D. Resident/Fellow: Ken Sandoval D.O. Electronically signed on: 02/01/2025 Beauty School Instructor: MILLA Transcribe Date/Time: Feb 01 2025 12:06P Dictated by : KEN SANDOVAL DO This examination was interpreted and the report reviewed and electronically signed by: JAMES DANIEL MD on Feb 01 2025 12:40PM [facility] DIVISION OF RADIOLOGY * * *Final Report* * * DATE OF EXAM: Feb 01 2025 12:06PM [facility] 0594 - [facility] [employer] BREAST LTD RT / PROCEDURE REASON: Breast lesion * * * * Physician Interpretation * * * * RESULT: [place] [address] #[id number] - JUDITH LAMONT HARKINS AMMON #[id number] - [facility] US BREAST LTD RT #[id number] - [facility] US BREAST LTD LT HISTORY: 35 year-old patient seen for diagnostic evaluation of non-bloody discharge in both breasts and the finding(s) described on prior ultrasound in the left breast. Patient states no personal history of breast cancer. The patient has a family history of breast cancer. COMPARISON STUDIES: This is a baseline study. MAMMOGRAM TECHNIQUE: The study was acquired using full field digital technology and interpreted from soft copy. Digital Breast Tomosynthesis (DBT) images were obtained and used to assist in the interpretation of this examination. Computer-aided detection was utilized by the radiologist in the interpretation of this examination. MAMMOGRAM FINDINGS: The breasts are heterogeneously dense, which may obscure small masses. Finding 1: There is a fat-containing round asymmetry in the lower inner quadrant of the left breast, anterior depth. Round asymmetry correlates to the area of palpable concern in the left breast. Finding 2: There are duct ectasias in both breasts. Findings correlate to the non-bloody nipple discharge in both breasts. Finding 3: There are two fat-containing masses in the upper outer quadrant of the left breast, middle depth. ULTRASOUND TECHNIQUE: Targeted ultrasound of the indicated area was performed. Goodman scale images were saved. ULTRASOUND FINDINGS: Finding 1: Ultrasound demonstrates a round mass with circumscribed margins measuring 1.1 cm in the left breast at 8 o'clock, 3 cm from the nipple. Finding correlates to the area of palpable concern in the left breast. This is consistent with an oil cyst. Finding 3: Ultrasound demonstrates multiple oval masses in the left breast at 9 o'clock. This is consistent with multiple oil cysts. In the right breast, there is no evidence of any solid mass or other abnormality. DIVISION OF RADIOLOGY Provider, [facility] - 02/01/2025 * * *Final Report* * * DATE OF EXAM: Feb 01 2025 12:06PM [facility] 0594 - [facility] [employer] BREAST ZipZap RT / PROCEDURE REASON: Breast lesion * * * * Physician Interpretation * * * * RESULT: [place] [address] #[id number] - [facility] LAMONT HARKINS AMMON #[id number] - [facility] [employer] BREAST ZipZap RT #[id number] - [facility] [employer] BREAST LTD LT HISTORY: 35 year-old patient seen for diagnostic evaluation of non-bloody discharge in both breasts and the finding(s) described on prior ultrasound in the left breast. Patient states no personal history of breast cancer. The patient has a family history of breast cancer. COMPARISON STUDIES: This is a baseline study. MAMMOGRAM TECHNIQUE: The study was acquired using full field digital technology and interpreted from soft copy. Digital Breast Tomosynthesis (DBT) images were obtained and used to assist in the interpretation of this examination. Computer-aided detection was utilized by the radiologist in the interpretation of this examination. MAMMOGRAM FINDINGS: The breasts are heterogeneously dense, which may obscure small masses. Finding 1: There is a fat-containing round asymmetry in the lower inner quadrant of the left breast, anterior depth. Round asymmetry correlates to the area of palpable concern in the left breast. Finding 2: There are duct ectasias in both breasts. Findings correlate to the non-bloody nipple discharge in both breasts. Finding 3: There are two fat-containing masses in the upper outer quadrant of the left breast, middle depth. ULTRASOUND TECHNIQUE: Targeted ultrasound of the indicated area was performed. Goodman scale images were saved. ULTRASOUND FINDINGS: Finding 1: Ultrasound demonstrates a round mass with circumscribed margins measuring 1.1 cm in the left breast at 8 o'clock, 3 cm from the nipple. Finding correlates to the area of palpable concern in the left breast. This is consistent with an oil cyst. Finding 3: Ultrasound demonstrates multiple oval masses in the left breast at 9 o'clock. This is consistent with multiple oil cysts. In the right breast, there is no evidence of any solid mass or other abnormality. IMPRESSION IMPRESSION: Finding 1: Mass in the left breast at 8 o'clock, 3 cm from the nipple is benign. This is consistent with an oil cyst. Finding 2: Duct ectasias in both breasts are benign. Finding 3: Masses in the left breast at 9 o'clock are benign. This is consistent with multiple oil cysts. There is no suspicious imaging finding to correspond with the area of clinical concern. Clinical correlation and follow-up is recommended. BI-RADS Category 2: Benign RISK: Based on the Tyrer-Cuzick (TC) risk assessment model, this patient has a 20.3% lifetime risk of developing breast cancer, meaning they are at high risk for developing breast cancer. However, this is only an estimate based on available history provided on the patient's questionnaire. Because patients with a lifetime risk of 20% or greater may benefit from additional supplemental screening, we encourage a full breast clinical evaluation and comprehensive breast cancer risk assessment to guide further decision making. For more information regarding the management of high-risk patients, the following is a link to the [facility] care path [email or web address]/dotNet/documents/?docid =18399. Additionally, a referral to the [facility] Clinic is also appropriate. Interpreting Radiologist: James Daniel M.D. Resident/Fellow: Ken Sandoval D.O. Electronically signed on: 02/01/2025 Beauty School Instructor: MILLA Transcribe Date/Time: Feb 01 2025 12:06P Dictated by : KEN SANDOVAL DO This examination was interpreted and the report reviewed and electronically signed by: JAMES DANIEL MD on Feb 01 2025 12:40PM EST [facility] Radiology Study observation (narrative) [facility] Basic metabolic 2000 panelon 01-20-2025 Anion gap [Moles/Vol] 11 mmol/L Normal 8-15 [facility] Comment on above: Order Comment: Speci men Type: BLOOD SPECIMENOrdering Facility: [facility] Address: [address] [place] [address] Performed By: #### 2 4320-2, ####[facility] LWCLIA [id number] [place] [id number] [place] Calcium [Mass/Vol] 9.2 mg/dL Normal 8.5-10.[address] [facility] Comment on above: Order Comment: Speci men Type: BLOOD SPECIMENOrdering Facility: [facility] Address: [address] [place] [address] Performed By: #### 2 4320-12, ####[facility] LWCLIA [id number] [place] [address] [place] Chloride [Moles/Vol] 106 mmol/L Normal 98-107 [facility] Comment on above: Order Comment: Speci men Type: BLOOD SPECIMENOrdering Facility: [facility] Address: [address] [place] [address] Performed By: #### 2 4320-12, ####[facility] LWCLIA [id number] [place] [id number] [place] CO2 [Moles/Vol] 23 mmol/L Normal 22-30 [facility] Comment on above: Order Comment: Speci men Type: BLOOD SPECIMENOrdering Facility: [facility] Address: [address] [place] [address] Performed By: #### 2 2, ####[facility] LWCLIA [id number] [address] [place] Creatinine [Mass/Vol] 0.76 mg/dL Normal 0.58-0.96 [facility] Comment on above: Order Comment: Mookie roberts Type: BLOOD SPECIMENOrdering Facility: [facility] Address: [address] [place] [address] Performed By: #### 2 4321-2, ####[facility] LWCLIA [id number] [place] [id number] [place] Creatinine and Glomerular filtration rate.predicted panel (S/P/Bld) 106 mL/min/1.73m??? Normal >=60 [facility] Comment on above: Order Comment: Mookie roberts Type: BLOOD SPECIMENOrdering Facility: [facility] Address: [address] [place] [address] Result Comment: Anne-Marie mated Glomerular Filtration Rate (eGFR) is calculated using the 2020 CKD-EPI creatinine equation. This equation utilizes serum creatinine, sex, and age as parameters. The creatinine assay has traceable calibration to isotope dilution-mass spectrometry. Refer to KDIGO guidelines for clinical interpretation. In patients with unstable renal function, e.g. those with acute kidney injury, the eGFR may not accurately reflect actual GFR. Performed By: #### 2 4321-2, ####[facility] LWCLIA [id number] [place] [id number] [place] Glucose [Mass/Vol] 100 mg/dL High 74-[address] [facility] Comment on above: Order Comment: Mookie roberts Type: BLOOD SPECIMENOrdering Facility: [facility] Address: [address] [place] [address] Result Comment: The [place] Diabetes Association (ADA) provides guidance for cutoff values for fasting glucose and random glucose. The ADA defines fasting as no caloric intake for at least 8 hours. Fasting plasma glucose results between 100 to 125 mg/dL indicate increased risk for diabetes (prediabetes).Fasting plasma glucose results greater than or equal to 126 mg/dL meet the criteria for diagnosis of diabetes. In the absence of unequivocal hyperglycemia, results should be confirmed by repeat testing. In a patient with classic symptoms of hyperglycemia or hyperglycemic crisis, random plasma glucose results greater than or equal to 200 mg/dL meet the criteria for diagnosis of diabetes.Reference: Standards of Medical Care in Diabetes 2016, [place] [employer] Association. Diabetes Care. 2016.39(Suppl 1). Performed By: #### 2 432-2, ####[facility] LWCLIA [id number] [place] [address] [place] Potassium [Moles/Vol] 4.2 mmol/L Normal 3.7-5.1 [facility] Comment on above: Order Comment: Speci men Type: BLOOD SPECIMENOrdering Facility: [facility] Address: [address] [place] [address] Performed By: #### 2 43211-24, ####[facility] LWCLIA [id number] [place] [id number] [place] Sodium [Moles/Vol] 140 mmol/L Normal 136-[address] [facility] Comment on above: Order Comment: Speci men Type: BLOOD SPECIMENOrdering Facility: [facility] Address: [address] [place] [address] Performed By: #### 2 4320-12, ####[facility] LWCLIA [id number] [place] [id number] [place] Urea nitrogen [Mass/Vol] 11 mg/dL Normal 7-21 [facility] Comment on above: Order Comment: Speci men Type: BLOOD SPECIMENOrdering Facility: [facility] Address: [address] [place] [address] Performed By: #### 2 4320-12, ####[facility] LWCLIA [id number] [place] [id number] [place] CBC W Auto Differential pane l (Bld)on 01-20-2025 Basophils (Bld) [#/Vol] 0.05 10*3/uL Normal <0.11 [facility] Comment on above: Order Comment: Speci men Type: BLOOD SPECIMENOrdering Facility: [facility] Address: [address] [place] [address] Performed By: #### 5 7021-8 ####[facility] LWCLIA [id number] [place] [id number] [place] Basophils/100 WBC (Bld) 0.5 % Normal [facility] Comment on above: Order Comment: Speci men Type: BLOOD SPECIMENOrdering Facility: [facility] Address: [address] [place] [address] Performed By: #### 5 7021-8 ####[facility] LWCLIA [id number] [place] [address] [place] Differential cell count method Nom (Bld) Auto Normal [facility] Comment on above: Order Comment: Speci men Type: BLOOD SPECIMENOrdering Facility: [facility] Address: [address] [place] [address] Performed By: #### 5 7021-8 ####[facility] LWCLIA [id number] [place] [address] [place] Eosinophils (Bld) [#/Vol] 0.17 10*3/uL Normal <0.46 [facility] Comment on above: Order Comment: Speci men Type: BLOOD SPECIMENOrdering Facility: [facility] Address: [address] [place] [address] Performed By: #### 5 7021-8 ####[facility] LWCLIA [id number] [place] [id number] [facility] Eosinophils/100 WBC (Bld) 1.9 % Normal [facility] Comment on above: Order Comment: Speci men Type: BLOOD SPECIMENOrdering Facility: [facility] Address: [address] [place] [address] Performed By: #### 5 7021-8 ####[facility] LWCLIA [id number] [place] [id number] [place] Erythrocyte distribution width (RBC) [Ratio] 13.5 % Normal 11.5-15.0 [facility] Comment on above: Order Comment: Speci men Type: BLOOD SPECIMENOrdering Facility: [facility] Address: [address] [place] [address] Performed By: #### 5 7021-8 ####[facility] LWCLIA [id number] [place] [id number] [place] Hematocrit (Bld) [Volume fraction] 39.7 % Normal 36.0-46.0 [facility] Comment on above: Order Comment: Speci men Type: BLOOD SPECIMENOrdering Facility: [facility] Address: [address] [place] [address] Performed By: #### 5 7021-8 ####[facility] [id number] [place] [address] [place] Hemoglobin (Bld) [Mass/Vol] 13.0 g/dL Normal 11.5-15.5 [facility] Comment on above: Order Comment: Speci men Type: BLOOD SPECIMENOrdering Facility: [facility] Address: [address] [place] [address] Performed By: #### 5 7021-8 ####[facility] LWCLIA [id number] [place] [address] [place] Immature granulocytes (Bld) [#/Vol] 0.20 10*3/uL High <0.10 [facility] Comment on above: Order Comment: Speci men Type: BLOOD SPECIMENOrdering Facility: [facility] Address: [address] [place] [address] Performed By: #### 5 7021-8 ####[facility] LWCLIA [id number] [place] [id number] [facility] [place] Immature granulocytes/100 WBC (Bld) 2.2 % Normal [facility] Comment on above: Order Comment: Speci men Type: BLOOD SPECIMENOrdering Facility: [facility] Address: [address] [place] [address] Performed By: #### 5 7021-8 ####[facility] LWCLIA [id number] [place] [id number] [place] Lymphocytes (Bld) [#/Vol] 2.68 10*3/uL Normal 1.00-4.00 [facility] Comment on above: Order Comment: Speci men Type: BLOOD SPECIMENOrdering Facility: [facility] Address: [address] [place] [address] Performed By: #### 5 7021-8 ####[facility] LWIA [id number] [place] [id number] [place] Lymphocytes/100 WBC (Bld) 29.2 % Normal [facility] Comment on above: Order Comment: Speci men Type: BLOOD SPECIMENOrdering Facility: [facility] Address: [address] [place] [address] Performed By: #### 5 7021-8 ####[facility] LWIA [id number] [place] [address] [place] MCH (RBC) [Entitic mass] 29.1 pg Normal 26.0-34.0 [facility] Comment on above: Order Comment: Speci men Type: BLOOD SPECIMENOrdering Facility: [facility] Address: [address] [place] [address] Performed By: #### 5 7021-8 ####[facility] LWCLIA [id number] [place] [id number] [place] MCHC (RBC) [Mass/Vol] 32.7 g/dL Normal 30.5-36.0 [facility] Comment on above: Order Comment: Speci men Type: BLOOD SPECIMENOrdering Facility: [facility] Address: [address] [place] [address] Performed By: #### 5 7021-8 ####[facility] LWCLIA [id number] [place] [id number] [place] [facility] (RBC) [Entitic vol] 88.8 fL Normal 80.0-100.0 [facility] Comment on above: Order Comment: Speci men Type: BLOOD SPECIMENOrdering Facility: [facility] Address: [address] [place] [address] Performed By: #### 5 7021-8 ####[facility] LWCLIA [id number] [place] [address] [place] Monocytes (Bld) [#/Vol] 0.52 10*3/uL Normal <0.87 [facility] Comment on above: Order Comment: Speci men Type: BLOOD SPECIMENOrdering Facility: [facility] Address: [address] [place] [address] Performed By: #### 5 7021-8 ####[facility] LWCLIA [id number] [place] [address] [place] Monocytes/100 WBC (Bld) 5.7 % Normal [facility] Comment on above: Order Comment: Speci men Type: BLOOD SPECIMENOrdering Facility: [facility] Address: [address] [place] [address] Performed By: #### 5 7021-8 ####[facility] LWCLIA [id number] [place] [address] [place] Neutrophils (Bld) [#/Vol] 5.55 10*3/uL Normal 1.45-7.50 [facility] Comment on above: Order Comment: Speci men Type: BLOOD SPECIMENOrdering Facility: [facility] Address: [address] [place] [address] Performed By: #### 5 7021-8 ####[facility] LWCLIA [id number] [place] [id number] [place] Neutrophils/100 WBC (Bld) 60.5 % Normal [facility] Comment on above: Order Comment: Speci men Type: BLOOD SPECIMENOrdering Facility: [facility] Address: [address] [place] [address] Performed By: #### 5 7021-8 ####[facility] LWCLIA [id number] [place] [address] [place] Nucleated RBC (Bld) [#/Vol] 10*3/uL Normal <0.01 [facility] Comment on above: Order Comment: Speci men Type: BLOOD SPECIMENOrdering Facility: [facility] Address: [address] [place] [address] Performed By: #### 5 7021-8 ####[facility] LWCLIA [id number] [place] [id number] [place] Nucleated RBC/100 WBC (Bld) [Ratio] 0.0 /100 WBC Normal [facility] Comment on above: Order Comment: Speci men Type: BLOOD SPECIMENOrdering Facility: [facility] Address: [address] [place] [address] Performed By: #### 5 7021-8 ####[facility] LWCLIA [id number] [place] [address] [place] Platelet mean volume (Bld) [Entitic vol] 9.8 fL Normal 9.0-12.7 [facility] Comment on above: Order Comment: Speci men Type: BLOOD SPECIMENOrdering Facility: [facility] Address: [address] [place] [address] Performed By: #### 5 7021-8 ####[facility] LWCLIA [id number] [place] [id number] [place] Platelets (Bld) [#/Vol] 289 10*3/uL Normal 150-400 [facility] Comment on above: Order Comment: Speci men Type: BLOOD SPECIMENOrdering Facility: [facility] Address: [address] [place] [address] Performed By: #### 5 7021-8 ####[facility] LWCLIA [id number] [place] [id number] [place] RBC (Bld) [#/Vol] 4.47 10*6/uL Normal 3.90-5.20 [facility] Comment on above: Order Comment: Speci men Type: BLOOD SPECIMENOrdering Facility: [facility] Address: [address] [place], [place] [address] Performed By: #### 5 7021-8 ####[facility] LWCLIA [id number] [place] [id number] [facility] WBC (Bld) [#/Vol] 9.17 10*3/uL Normal 3.70-11.00 [facility] Comment on above: Order Comment: Speci men Type: BLOOD SPECIMENOrdering Facility: [facility] Address: [address] [place] [address] Performed By: #### 5 7021-8 ####[facility] LWCLIA [id number] [place] [id number] [facility] ED NOTEon 01-20-2025 ED NOTE Normal [facility] ED NOTE HNO ID: [id number] Author: RICHELLE RANGEL RN Service: Nursing Author Type: Registered Nurse Type: ED Notes Filed: 01/20/2025 14:46 Note Text: Patient able to tolerate oral challenge. IV fluids almost done. Normal [facility] ED NOTE HNO ID: [id number] Author: RICHELLE RANGEL RN Service: Nursing Author Type: Registered Nurse Type: ED Notes Filed: 01/20/2025 14:19 Note Text: Oral challenge for patient. Apple juice and pretzels provided. Normal [facility] ED NOTE Normal [facility] ED NOTE Normal [facility] ED PROV NOTEon 01-20-2025 ED PROV NOTE Normal [facility] Magnesium SerPl-mCncon 01-20 Magnesium [Mass/Vol] 2.1 mg/dL Normal 1.7-2.3 [facility] Comment on above: Order Comment: Speci men Type: BLOOD SPECIMENOrdering Facility: [facility] Address: [address] [place] [address] Performed By: #### 2 4321-2, 93807-1 ####[facility] LWCLIA [id number] [place] [id number] [facility] ALLIED HEALTHon 01-13-2025 ALLIED HEALTH Normal [facility] Basic metabolic 2000 panelon 01-13-2025 Anion gap [Moles/Vol] 14 mmol/L Normal 8-15 [facility] Comment on above: Order Comment: Speci men Type: BLOOD SPECIMENOrdering Facility: [facility] Address: [address] [place] [address] Performed By: #### 2 4321-2 ####[facility] LABCLIA [id number] [place] [address] [place] Calcium [Mass/Vol] 9.2 mg/dL Normal 8.5-10.[address] [facility] Comment on above: Order Comment: Speci men Type: BLOOD SPECIMENOrdering Facility: [facility] Address: [address] [place] [address] Performed By: #### 2 4321-2 ####[facility] LABCLIA [id number] [place] [address] [place] Chloride [Moles/Vol] 106 mmol/L Normal 98-107 [facility] Comment on above: Order Comment: Speci men Type: BLOOD SPECIMENOrdering Facility: [facility] Address: [address] [place] [address] Performed By: #### 2 4321-2 ####[facility] LABCLIA [id number] [place] [address] [place] CO2 [Moles/Vol] 21 mmol/L Low 22-30 [facility] Comment on above: Order Comment: Speci men Type: BLOOD SPECIMENOrdering Facility: [facility] Address: [address] [place], [place] [address] Performed By: #### 2 4321-2 ####[facility] LABCLIA [id number] [place] [address] [place] Creatinine [Mass/Vol] 0.71 mg/dL Normal 0.58-0.96 [facility] Comment on above: Order Comment: Speci men Type: BLOOD SPECIMENOrdering Facility: [facility] Address: [address] [place] [address] Performed By: #### 2 4321-2 ####[facility] LABIA [id number] [place] [address] [place] Creatinine and Glomerular filtration rate.predicted panel (S/P/Bld) 115 mL/min/1.73m??? Normal >=60 [facility] Comment on above: Order Comment: Mookie roberts Type: BLOOD SPECIMENOrdering Facility: [facility] Address: [address] [place] [address] Result Comment: Anne-Marie mated Glomerular Filtration Rate (eGFR) is calculated using the 2020 CKD-EPI creatinine equation. This equation utilizes serum creatinine, sex, and age as parameters. The creatinine assay has traceable calibration to isotope dilution-mass spectrometry. Refer to KDIGO guidelines for clinical interpretation. In patients with unstable renal function, e.g. those with acute kidney injury, the eGFR may not accurately reflect actual GFR. Performed By: #### 2 4321-2 ####[facility] LABIA [id number] [place] [address] [place] Glucose [Mass/Vol] 98 mg/dL Normal 74-[address] [facility] Comment on above: Order Comment: Mookie alejandra Type: BLOOD SPECIMENOrdering Facility: [facility] Address: [address] [place] [address] Result Comment: The [place] [employer] (ADA) provides guidance for cutoff values for fasting glucose and random glucose. The ADA defines fasting as no caloric intake for at least 8 hours. Fasting plasma glucose results between 100 to 125 mg/dL indicate increased risk for diabetes (prediabetes).Fasting plasma glucose results greater than or equal to 126 mg/dL meet the criteria for diagnosis of diabetes. In the absence of unequivocal hyperglycemia, results should be confirmed by repeat testing. In a patient with classic symptoms of hyperglycemia or hyperglycemic crisis, random plasma glucose results greater than or equal to 200 mg/dL meet the criteria for diagnosis of diabetes.Reference: Standards of Medical Care in Diabetes 2016, [place] [employer]. Diabetes Care. 2016.39(Suppl 1). Performed By: #### 2 4321-2 ####[facility] LABCLIA [id number] [place] [address] [place] Potassium [Moles/Vol] 4.6 mmol/L Normal 3.7-5.1 [facility] Comment on above: Order Comment: Speci men Type: BLOOD SPECIMENOrdering Facility: [facility] Address: [address] [place] [address] Performed By: #### 2 4321-2 ####[facility] LABIA [id number] [place] [address] [place] Sodium [Moles/Vol] 141 mmol/L Normal 136-[address] [facility] Comment on above: Order Comment: Speci men Type: BLOOD SPECIMENOrdering Facility: [facility] Address: [address] [place] [address] Performed By: #### 2 4321-2 ####[facility] LABIA [id number] [place] [address] [place] Urea nitrogen [Mass/Vol] 19 mg/dL Normal 7-21 [facility] Comment on above: Order Comment: Speci men Type: BLOOD SPECIMENOrdering Facility: [facility] Address: [address] [place] [address] Performed By: #### 2 4321-2 ####[facility] LABIA [id number] [place] [id number] [place] CNDSon 01-13-2025 CNDS Normal [facility] CONSULT PROGon 01-13-2025 CONSULT PROG Normal [facility] CONSULT PROG Normal [facility] Basic metabolic 2000 panelon 01-12-2025 Anion gap [Moles/Vol] 10 mmol/L Normal 8-15 [facility] Comment on above: Order Comment: Speci men Type: BLOOD SPECIMENOrdering Facility: [facility] Address: [address] [place] [address] Performed By: #### 2 4321-2 ####[facility] LABCLIA [id number] [address] [address] [place] Calcium [Mass/Vol] 9.1 mg/dL Normal 8.5-10.[address] [facility] Comment on above: Order Comment: Speci men Type: BLOOD SPECIMENOrdering Facility: [facility] Address: [address] [place] [address] Performed By: #### 2 4321-2 ####[facility] LABCLIA [id number] [place] [address] [place] Chloride [Moles/Vol] 106 mmol/L Normal 98-107 [facility] Comment on above: Order Comment: Speci men Type: BLOOD SPECIMENOrdering Facility: [facility] Address: [address] [place] [address] Performed By: #### 2 4321-2 ####[facility] LABCLIA [id number] [place] [address] [place] CO2 [Moles/Vol] 24 mmol/L Normal 22-30 [facility] Comment on above: Order Comment: Speci men Type: BLOOD SPECIMENOrdering Facility: [facility] Address: [address] [place] [address] Performed By: #### 2 4321-2 ####[facility] LABCLIA [id number] [place] [address] [place] Creatinine [Mass/Vol] 0.76 mg/dL Normal 0.58-0.96 [facility] Comment on above: Order Comment: Speci men Type: BLOOD SPECIMENOrdering Facility: [facility] Address: [address] [place] [address] Performed By: #### 2 4321-2 ####[facility] LABCLIA [id number] [place] [address] [place] Creatinine and Glomerular filtration rate.predicted panel (S/P/Bld) 106 mL/min/1.73m??? Normal >=60 [facility] Comment on above: Order Comment: Mookie roberts Type: BLOOD SPECIMENOrdering Facility: [facility] Address: [address] [place] [address] Result Comment: Anne-Marie mated Glomerular Filtration Rate (eGFR) is calculated using the 2020 CKD-EPI creatinine equation. This equation utilizes serum creatinine, sex, and age as parameters. The creatinine assay has traceable calibration to isotope dilution-mass spectrometry. Refer to KDIGO guidelines for clinical interpretation. In patients with unstable renal function, e.g. those with acute kidney injury, the eGFR may not accurately reflect actual GFR. Performed By: #### 2 4321-2 ####[facility] [id number] [place] [address] [place] Glucose [Mass/Vol] 91 mg/dL Normal 74-[address] [facility] Comment on above: Order Comment: Mookie roberts Type: BLOOD SPECIMENOrdering Facility: [facility] Address: [address] [place] [address] Result Comment: The [place] Diabetes Association (ADA) provides guidance for cutoff values for fasting glucose and random glucose. The ADA defines fasting as no caloric intake for at least 8 hours. Fasting plasma glucose results between 100 to 125 mg/dL indicate increased risk for diabetes (prediabetes).Fasting plasma glucose results greater than or equal to 126 mg/dL meet the criteria for diagnosis of diabetes. In the absence of unequivocal hyperglycemia, results should be confirmed by repeat testing. In a patient with classic symptoms of hyperglycemia or hyperglycemic crisis, random plasma glucose results greater than or equal to 200 mg/dL meet the criteria for diagnosis of diabetes.Reference: Standards of Medical Care in Diabetes 2016, [place] [employer]. Diabetes Care. 2016.39(Suppl 1). Performed By: #### 2 4321-2 ####[facility] [id number] [place] [address] [place] Potassium [Moles/Vol] 4.1 mmol/L Normal 3.7-5.1 [facility] Comment on above: Order Comment: Mookie roberts Type: BLOOD SPECIMENOrdering Facility: [facility] Address: [address] [place] [address] Performed By: #### 2 4321-2 ####[facility] LABCLIA [id number] [place] [address] [place] Sodium [Moles/Vol] 140 mmol/L Normal 136-[address] [facility] Comment on above: Order Comment: Speci men Type: BLOOD SPECIMENOrdering Facility: [facility] Address: [address] [place] [address] Performed By: #### 2 4321-2 ####[facility] LABCLIA [id number] [place] [address] [place] Urea nitrogen [Mass/Vol] 20 mg/dL Normal 7-21 [facility] Comment on above: Order Comment: Speci men Type: BLOOD SPECIMENOrdering Facility: [facility] Address: [address] [place] [address] Performed By: #### 2 4321-2 ####[facility] LABCLIA [id number] [place] [address] [place] CONSULT PROGon 01-12-2025 CONSULT PROG Normal [facility] Basic metabolic 2000 panelon 01-11-2025 Anion gap [Moles/Vol] 3 mmol/L Low 8-15 [facility] Comment on above: Order Comment: Speci men Type: BLOOD SPECIMENOrdering Facility: [facility] Address: [address] [place] [address] Result Comment: Siddharth ected result: Previously reported as 8 mmol/L on 01/11/2025 at 9:38 AM EST. Performed By: #### 2 4321-2 ####[facility] LABCLIA [id number] [place] [address] [place] Calcium [Mass/Vol] 8.4 mg/dL Low 8.5-10.[address] [facility] Comment on above: Order Comment: Speci men Type: BLOOD SPECIMENOrdering Facility: [facility] Address: [address] [place] [address] Performed By: #### 2 4321-2 ####[facility] LABCLIA [id number] [place] [address] [place] Chloride [Moles/Vol] 109 mmol/L High 98-107 [facility] Comment on above: Order Comment: Speci men Type: BLOOD SPECIMENOrdering Facility: [facility] Address: [address] [place] [address] Performed By: #### 2 4321-2 ####[facility] LABCLIA [id number] [place] [address] [place] CO2 [Moles/Vol] 28 mmol/L Normal 22-30 [facility] Comment on above: Order Comment: Speci men Type: BLOOD SPECIMENOrdering Facility: [facility] Address: [address] [place] [address] Performed By: #### 2 4321-2 ####[facility] LABCLIA [id number] [place] [address] [place] Creatinine [Mass/Vol] 0.90 mg/dL Normal 0.58-0.96 [facility] Comment on above: Order Comment: Speci men Type: BLOOD SPECIMENOrdering Facility: [facility] Address: [address] [place] [address] Performed By: #### 2 4321-2 ####[facility] LABIA [id number] [place] [address] [place] Creatinine and Glomerular filtration rate.predicted panel (S/P/Bld) 86 mL/min/1.73m??? Normal >=60 [facility] Comment on above: Order Comment: Speci men Type: BLOOD SPECIMENOrdering Facility: [facility] Address: [address] [place] [address] Result Comment: Anne-Marie mated Glomerular Filtration Rate (eGFR) is calculated using the 2020 CKD-EPI creatinine equation. This equation utilizes serum creatinine, sex, and age as parameters. The creatinine assay has traceable calibration to isotope dilution-mass spectrometry. Refer to KDIGO guidelines for clinical interpretation. In patients with unstable renal function, e.g. those with acute kidney injury, the eGFR may not accurately reflect actual GFR. Performed By: #### 2 4321-2 ####[facility] LABCLIA [id number] [place] [address] [place] Glucose [Mass/Vol] 80 mg/dL Normal 74-[address] [facility] Comment on above: Order Comment: Speci men Type: BLOOD SPECIMENOrdering Facility: [facility] Address: [address] [place] [address] Result Comment: The [place] Diabetes [employer] (ADA) provides guidance for cutoff values for fasting glucose and random glucose. The ADA defines fasting as no caloric intake for at least 8 hours. Fasting plasma glucose results between 100 to 125 mg/dL indicate increased risk for diabetes (prediabetes).Fasting plasma glucose results greater than or equal to 126 mg/dL meet the criteria for diagnosis of diabetes. In the absence of unequivocal hyperglycemia, results should be confirmed by repeat testing. In a patient with classic symptoms of hyperglycemia or hyperglycemic crisis, random plasma glucose results greater than or equal to 200 mg/dL meet the criteria for diagnosis of diabetes.Reference: Standards of Medical Care in Diabetes 2016, [place] [employer]. Diabetes Care. 2016.39(Suppl 1). Performed By: #### 2 4321-2 ####[facility] LABCLIA [id number] [place] [id number] [place] Potassium [Moles/Vol] 4.5 mmol/L Normal 3.7-5.1 [facility] Comment on above: Order Comment: Mookie roberts Type: BLOOD SPECIMENOrdering Facility: [facility] Address: [address] [place] [address] Performed By: #### 2 4321-2 ####[facility] LABCLIA [id number] [facility] [address] [address] [place] Sodium [Moles/Vol] 140 mmol/L Normal 136-[address] [facility] Comment on above: Order Comment: Speci men Type: BLOOD SPECIMENOrdering Facility: [facility] Address: [address] [place] [address] Result Comment: Siddharth ected result: Previously reported as 145 mmol/L on 01/11/2025 at 9:38 AM EST. Performed By: #### 2 4321-2 ####[facility] LABCLIA [id number] [place] [address] [place] Urea nitrogen [Mass/Vol] 21 mg/dL Normal 7-21 [facility] Comment on above: Order Comment: Speci men Type: BLOOD SPECIMENOrdering Facility: [facility] Address: [address] [place] [address] Performed By: #### 2 4321-2 ####[facility] LABCLIA [id number] [place] [address] [place] CASE MANAGEMon 01-11-2025 CASE MANAGEM Normal [facility] CASE MGT INIT ASSESon 2024 CASE MGT INIT ASSES Normal [facility] CBC panel Auto (Bld)on 01-11 Erythrocyte distribution width (RBC) [Ratio] 14.0 % Normal 11.5-15.0 [facility] Comment on above: Order Comment: Speci men Type: BLOOD SPECIMENOrdering Facility: [facility] Address: [address] [place] [address] Performed By: #### 5 8410-2 ####[facility] LABCLIA [id number] [address] [place] Hematocrit (Bld) [Volume fraction] 40.7 % Normal 36.0-46.0 [facility] Comment on above: Order Comment: Speci men Type: BLOOD SPECIMENOrdering Facility: [facility] Address: [address] [place] [address] Performed By: #### 5 8410-2 ####[facility] LABCLIA [id number] [address] [place] Hemoglobin (Bld) [Mass/Vol] 13.2 g/dL Normal 11.5-15.5 [facility] Comment on above: Order Comment: Speci men Type: BLOOD SPECIMENOrdering Facility: [facility] Address: [address] [place] [address] Performed By: #### 5 8410-2 ####[facility] LABCLIA [id number] [place] [address] [place] MCH (RBC) [Entitic mass] 29.2 pg Normal 26.0-34.0 [facility] Comment on above: Order Comment: Speci men Type: BLOOD SPECIMENOrdering Facility: [facility] Address: [address] [place] [address] Performed By: #### 5 8410-2 ####[facility] LABIA [id number] [address] [place] MCHC (RBC) [Mass/Vol] 32.4 g/dL Normal 30.5-36.0 [facility] Comment on above: Order Comment: Speci men Type: BLOOD SPECIMENOrdering Facility: [facility] Address: [address] [place] [address] Performed By: #### 5 8410-2 ####[facility] LABIA [id number] [place] [address] [place] MCV (RBC) [Entitic vol] 90.0 fL Normal 80.0-100.0 [facility] Comment on above: Order Comment: Speci men Type: BLOOD SPECIMENOrdering Facility: [facility] Address: [address] [place] [address] Performed By: #### 5 8410-2 ####[facility] LABIA [id number] [place] [address] [place] Nucleated RBC (Bld) [#/Vol] 10*3/uL Normal <0.01 [facility] Comment on above: Order Comment: Speci men Type: BLOOD SPECIMENOrdering Facility: [facility] Address: [address] [place] [address] Performed By: #### 5 8410-2 ####[facility] LABCLIA [id number] [place] [address] [place] Platelet mean volume (Bld) [Entitic vol] 9.6 fL Normal 9.0-12.7 [facility] Comment on above: Order Comment: Speci men Type: BLOOD SPECIMENOrdering Facility: [facility] Address: [address] [place] [address] Performed By: #### 5 8410-2 ####[facility] LABIA [id number] [place] [address] [place] Platelets (Bld) [#/Vol] 281 10*3/uL Normal 150-400 [facility] Comment on above: Order Comment: Speci men Type: BLOOD SPECIMENOrdering Facility: [facility] Address: [address] [place] [address] Performed By: #### 5 8410-2 ####[facility] [facility] [id number] [place] [address] [place] RBC (Bld) [#/Vol] 4.52 10*6/uL Normal 3.90-5.20 [facility] Comment on above: Order Comment: Speci men Type: BLOOD SPECIMENOrdering Facility: [facility] Address: [address] [place] [address] Performed By: #### 5 8410-2 ####[facility] LABCLIA [id number] [place] [address] [place] WBC (Bld) [#/Vol] 9.09 10*3/uL Normal 3.70-11.00 [facility] Comment on above: Order Comment: Speci men Type: BLOOD SPECIMENOrdering Facility: [facility] Address: [address] [place] [address] Performed By: #### 5 8410-2 ####[facility] LABCLIA [id number] [address] [address] [place] CONSULT PROGon 01-11-2025 CONSULT PROG Normal [facility] NURSING PROGon 01-11-2025 NURSING PROG Normal [facility] PT EDon 01-11-2025 PT ED Normal [facility] Basic metabolic 2000 panelon 01-10-2025 Anion gap [Moles/Vol] 11 mmol/L Normal 8-15 [facility] Comment on above: Order Comment: Speci men Type: BLOOD SPECIMENOrdering Facility: [facility] Address: [address] [place] [address] Performed By: #### 2 4321-2 ####[facility] LABIA [id number] [place] [address] [place] Calcium [Mass/Vol] 9.3 mg/dL Normal 8.5-10.[address] [facility] Comment on above: Order Comment: Speci men Type: BLOOD SPECIMENOrdering Facility: [facility] Address: [address] [place], [place] [address] Performed By: #### 2 4321-2 ####[facility] LABIA [id number] [place] [address] [place] Chloride [Moles/Vol] 102 mmol/L Normal 98-107 [facility] Comment on above: Order Comment: Speci men Type: BLOOD SPECIMENOrdering Facility: [facility] Address: [address] [place] [address] Performed By: #### 2 4321-2 ####[facility] LABIA [id number] [place] [address] [place] CO2 [Moles/Vol] 23 mmol/L Normal 22-30 [facility] Comment on above: Order Comment: Speci men Type: BLOOD SPECIMENOrdering Facility: [facility] Address: [address] [place] [address] Performed By: #### 2 4321-2 ####[facility] LABCLIA [id number] [place] [address] [place] Creatinine [Mass/Vol] 0.59 mg/dL Normal 0.58-0.96 [facility] Comment on above: Order Comment: Speci men Type: BLOOD SPECIMENOrdering Facility: [facility] Address: [address] [place] [address] Performed By: #### 2 4321-2 ####[facility] LABIA [id number] [place] [address] [place] Creatinine and Glomerular filtration rate.predicted panel (S/P/Bld) 121 mL/min/1.73m??? Normal >=60 [facility] Comment on above: Order Comment: Speci men Type: BLOOD SPECIMENOrdering Facility: [facility] Address: [address] [place] [address] Result Comment: Anne-Marie mated Glomerular Filtration Rate (eGFR) is calculated using the 2020 CKD-EPI creatinine equation. This equation utilizes serum creatinine, sex, and age as parameters. The creatinine assay has traceable calibration to isotope dilution-mass spectrometry. Refer to KDIGO guidelines for clinical interpretation. In patients with unstable renal function, e.g. those with acute kidney injury, the eGFR may not accurately reflect actual GFR. Performed By: #### 2 4321-2 ####[facility] LABIA [id number] [place] [address] [place] Glucose [Mass/Vol] 143 mg/dL High 74-[address] [facility] Comment on above: Order Comment: Speci men Type: BLOOD SPECIMENOrdering Facility: [facility] Address: [address] [place] [address] Result Comment: The [place] [employer] (ADA) provides guidance for cutoff values for fasting glucose and random glucose. The ADA defines fasting as no caloric intake for at least 8 hours. Fasting plasma glucose results between 100 to 125 mg/dL indicate increased risk for diabetes (prediabetes).Fasting plasma glucose results greater than or equal to 126 mg/dL meet the criteria for diagnosis of diabetes. In the absence of unequivocal hyperglycemia, results should be confirmed by repeat testing. In a patient with classic symptoms of hyperglycemia or hyperglycemic crisis, random plasma glucose results greater than or equal to 200 mg/dL meet the criteria for diagnosis of diabetes.Reference: Standards of Medical Care in Diabetes 2016, [place] [employer]. Diabetes Care. 2016.39(Suppl 1). Performed By: #### 2 4321-2 ####[facility] LABCLIA [id number] [place] [address] [place] Potassium [Moles/Vol] 4.4 mmol/L Normal 3.7-5.1 [facility] Comment on above: Order Comment: Mookie roberts Type: BLOOD SPECIMENOrdering Facility: [facility] Address: [address] [place] [address] Performed By: #### 2 4321-2 ####[facility] LABIA [id number] [place] [address] [place] Sodium [Moles/Vol] 136 mmol/L Normal 136-[address] [facility] Comment on above: Order Comment: Mookie roberts Type: BLOOD SPECIMENOrdering Facility: [facility] Address: [address] [place] [address] Performed By: #### 2 4321-2 ####[facility] LABIA [id number] [place] [address] [place] Urea nitrogen [Mass/Vol] 11 mg/dL Normal 7-21 [facility] Comment on above: Order Comment: Speci men Type: BLOOD SPECIMENOrdering Facility: [facility] Address: [address] [place] [address] Performed By: #### 2 4321-2 ####[facility] LABIA [id number] [place] [address] [place] CBC panel Auto (Bld)on 01-10 Erythrocyte distribution width (RBC) [Ratio] 13.6 % Normal 11.5-15.0 [facility] Comment on above: Order Comment: Speci men Type: BLOOD SPECIMENOrdering Facility: [facility] Address: [address] [place] [address] Performed By: #### 5 8410-2 ####[facility] LABIA [id number] [place] [address] [place] Hematocrit (Bld) [Volume fraction] 38.9 % Normal 36.0-46.0 [facility] Comment on above: Order Comment: Speci men Type: BLOOD SPECIMENOrdering Facility: [facility] Address: [address] [place] [address] Performed By: #### 5 8410-2 ####[facility] LABIA [id number] [place] [address] [place] Hemoglobin (Bld) [Mass/Vol] 13.1 g/dL Normal 11.5-15.5 [facility] Comment on above: Order Comment: Speci men Type: BLOOD SPECIMENOrdering Facility: [facility] Address: [address] [place] [address] Performed By: #### 5 8410-2 ####[facility] LABIA [id number] [place] [address] [place] MCH (RBC) [Entitic mass] 29.0 pg Normal 26.0-34.0 [facility] Comment on above: Order Comment: Speci men Type: BLOOD SPECIMENOrdering Facility: [facility] Address: [address] [place] [address] Performed By: #### 5 8410-2 ####[facility] LABIA [id number] [place] [address] [place] MCHC (RBC) [Mass/Vol] 33.7 g/dL Normal 30.5-36.0 [facility] Comment on above: Order Comment: Speci men Type: BLOOD SPECIMENOrdering Facility: [facility] Address: [address] [place] [address] Performed By: #### 5 8410-2 ####[facility] LABIA [id number] [place] [address] [place] MCV (RBC) [Entitic vol] 86.1 fL Normal 80.0-100.0 [facility] Comment on above: Order Comment: Speci men Type: BLOOD SPECIMENOrdering Facility: [facility] Address: [address] [place] [address] Performed By: #### 5 8410-2 ####[facility] LABIA [id number] [place] [address] [place] Nucleated RBC (Bld) [#/Vol] 10*3/uL Normal <0.01 [facility] Comment on above: Order Comment: Speci men Type: BLOOD SPECIMENOrdering Facility: [facility] Address: [address] [place] [address] Performed By: #### 5 8410-2 ####[facility] LABIA [id number] [place] [address] [place] Platelet mean volume (Bld) [Entitic vol] 9.6 fL Normal 9.0-12.7 [facility] Comment on above: Order Comment: Speci men Type: BLOOD SPECIMENOrdering Facility: [facility] Address: [address] [place] [address] Performed By: #### 5 8410-2 ####[facility] LABIA [id number] [place] [address] [place] Platelets (Bld) [#/Vol] 306 10*3/uL Normal 150-400 [facility] Comment on above: Order Comment: Speci men Type: BLOOD SPECIMENOrdering Facility: [facility] Address: [address] [place] [address] Performed By: #### 5 8410-2 ####[facility] LABIA [id number] [address] [place] [address] [place] RBC (Bld) [#/Vol] 4.52 10*6/uL Normal 3.90-5.20 [facility] Comment on above: Order Comment: Speci men Type: BLOOD SPECIMENOrdering Facility: [facility] Address: [address] [place] [address] Performed By: #### 5 8410-2 ####[facility] LABCLIA [id number] [place] [address] [place] WBC (Bld) [#/Vol] 10.68 10*3/uL Normal 3.70-11.00 [facility] Comment on above: Order Comment: Speci men Type: BLOOD SPECIMENOrdering Facility: [facility] Address: [address] [place] [address] Performed By: #### 5 8410-2 ####[facility] LABCLIA [id number] [place] [address] [place] CONSULTon 01-10-2025 CONSULT Normal [facility] CONSULT Normal [facility] CONSULT PROGon 01-10-2025 CONSULT PROG Normal [facility] HISTORY PHYSICALon HISTORY PHYSICAL Normal [facility] Bacteria Bld Culton 01-09-20 25 Bacteria identified Cx Nom (Bld) CULTURE, BLOOD: No growth 5 days Normal [facility] Comment on above: Performed By: #### 6 00-7 ####[facility] LABCLIA [id number] [place] [address] [place] Bacteria identified Cx Nom (Bld) CULTURE, BLOOD: No growth 5 days Normal [facility] Comment on above: Performed By: #### 6 00-7 ####[facility] LABCLIA [id number] [place] [address] [place] Basic metabolic 2000 panelon 01-09-2025 Anion gap [Moles/Vol] 12 mmol/L Normal 8-15 [facility] Comment on above: Order Comment: Speci men Type: BLOOD SPECIMENOrdering Facility: [facility] Address: [address] [place] [address] Performed By: #### 2 4320-12, 1988-03 ####[facility] LABCLIA [id number] [address] [address] [place] Calcium [Mass/Vol] 8.9 mg/dL Normal 8.5-10.[address] [facility] Comment on above: Order Comment: Speci men Type: BLOOD SPECIMENOrdering Facility: [facility] Address: [address] [place], [place] [address] Performed By: #### 2 4320-12, 1988-03 ####[facility] LABCLIA [id number] [place] [id number] [place] Chloride [Moles/Vol] 105 mmol/L Normal 98-107 [facility] Comment on above: Order Comment: Speci men Type: BLOOD SPECIMENOrdering Facility: [facility] Address: [address] [place], [place] [address] Performed By: #### 2 4320-12, 1988-03 ####[facility] LABCLIA [id number] [place] [address] [place] CO2 [Moles/Vol] 23 mmol/L Normal 22-30 [facility] Comment on above: Order Comment: Speci men Type: BLOOD SPECIMENOrdering Facility: [facility] Address: [address] [place], [place] [address] Performed By: #### 2 4320-12, 1988-03 ####[facility] LABCLIA [id number] [place] [id number] [place] Creatinine [Mass/Vol] 0.78 mg/dL Normal 0.58-0.96 [facility] Comment on above: Order Comment: Speci men Type: BLOOD SPECIMENOrdering Facility: [facility] Address: [address] [place] [address] Performed By: #### 2 1988-03 ####[facility] LABCLIA [id number] [place] [address] [place] Creatinine and Glomerular filtration rate.predicted panel (S/P/Bld) 102 mL/min/1.73m??? Normal >=60 [facility] Comment on above: Order Comment: Mookie roberts Type: BLOOD SPECIMENOrdering Facility: [facility] Address: [address] [place] [address] Result Comment: Anne-Marie mated Glomerular Filtration Rate (eGFR) is calculated using the 2020 CKD-EPI creatinine equation. This equation utilizes serum creatinine, sex, and age as parameters. The creatinine assay has traceable calibration to isotope dilution-mass spectrometry. Refer to KDIGO guidelines for clinical interpretation. In patients with unstable renal function, e.g. those with acute kidney injury, the eGFR may not accurately reflect actual GFR. Performed By: #### 2 4320-12, 1988-03 ####[facility] LABIA [id number] [place] [address] [place] Glucose [Mass/Vol] 104 mg/dL High 74-[address] [facility] Comment on above: Order Comment: Mokoie roberts Type: BLOOD SPECIMENOrdering Facility: [facility] Address: [address] [place] [address] Result Comment: The [place] Diabetes [employer] (ADA) provides guidance for cutoff values for fasting glucose and random glucose. The ADA defines fasting as no caloric intake for at least 8 hours. Fasting plasma glucose results between 100 to 125 mg/dL indicate increased risk for diabetes (prediabetes).Fasting plasma glucose results greater than or equal to 126 mg/dL meet the criteria for diagnosis of diabetes. In the absence of unequivocal hyperglycemia, results should be confirmed by repeat testing. In a patient with classic symptoms of hyperglycemia or hyperglycemic crisis, random plasma glucose results greater than or equal to 200 mg/dL meet the criteria for diagnosis of diabetes.Reference: Standards of Medical Care in Diabetes 2016, [place] [employer]. Diabetes Care. 2016.39(Suppl 1). Performed By: #### 2 4320-12, 1988-03 ####[facility] LABCLIA [id number] [place] [address] [place] Potassium [Moles/Vol] 4.5 mmol/L Normal 3.7-5.1 [facility] Comment on above: Order Comment: Speci men Type: BLOOD SPECIMENOrdering Facility: [facility] Address: [address] [place] [address] Performed By: #### 2 43211-24, 1988-03 ####[facility] LABCLIA [id number] [place] [address] [place] Sodium [Moles/Vol] 140 mmol/L Normal 136-[address] [facility] Comment on above: Order Comment: Speci men Type: BLOOD SPECIMENOrdering Facility: [facility] Address: [address] [place] [address] Performed By: #### 2 43211-24, 1988-03 ####[facility] LABCLIA [id number] [place] [address] [place] Urea nitrogen [Mass/Vol] 17 mg/dL Normal 7-21 [facility] Comment on above: Order Comment: Speci men Type: BLOOD SPECIMENOrdering Facility: [facility] Address: [address] [place] [address] Performed By: #### 2 43211-24, 1988-03 ####[facility] LABIA [id number] [place] [address] [place] CBC W Auto Differential pane l (Bld)on 01-09-2025 Basophils (Bld) [#/Vol] 0.08 10*3/uL Normal <0.11 [facility] Comment on above: Order Comment: Speci men Type: BLOOD SPECIMENOrdering Facility: [facility] Address: [address] [place] [address] Performed By: #### 5 7021-8, 4537-7 ####[facility] LABCLIA [id number] [place] [address] [place] Basophils/100 WBC (Bld) 0.8 % Normal [facility] Comment on above: Order Comment: Speci men Type: BLOOD SPECIMENOrdering Facility: [facility] Address: [facility] [place] [address] Performed By: #### 5 7021-8, 7-7 ####[facility] LABCLIA [id number] [place] [address] [place] Differential cell count method Nom (Bld) Auto Normal [facility] Comment on above: Order Comment: Speci men Type: BLOOD SPECIMENOrdering Facility: [facility] Address: [address] [place] [address] Performed By: #### 5 7021-8, 4536-7 ####[facility] LABCLIA [id number] [place] [address] [place] Eosinophils (Bld) [#/Vol] 0.13 10*3/uL Normal <0.46 [facility] Comment on above: Order Comment: Speci men Type: BLOOD SPECIMENOrdering Facility: [facility] Address: [address] [place] [address] Performed By: #### 5 7021-8, 4536-7 ####[facility] LABCLIA [id number] [place] [address] [place] Eosinophils/100 WBC (Bld) 1.2 % Normal [facility] Comment on above: Order Comment: Speci men Type: BLOOD SPECIMENOrdering Facility: [facility] Address: [address] [place] [address] Performed By: #### 5 7021-8, 4536-7 ####[facility] LABCLIA [id number] [place] [address] [place] Erythrocyte distribution width (RBC) [Ratio] 13.6 % Normal 11.5-15.0 [facility] Comment on above: Order Comment: Speci men Type: BLOOD SPECIMENOrdering Facility: [facility] Address: [address] [place] [address] Performed By: #### 5 7021-8, 4536-7 ####[facility] LABIA [id number] [place] [address] [place] Hematocrit (Bld) [Volume fraction] 41.6 % Normal 36.0-46.0 [facility] Comment on above: Order Comment: Speci men Type: BLOOD SPECIMENOrdering Facility: [facility] Address: [address] [place] [address] Performed By: #### 5 7021-8, 4536-7 ####[facility] [id number] [place] [address] [place] Hemoglobin (Bld) [Mass/Vol] 13.9 g/dL Normal 11.5-15.5 [facility] Comment on above: Order Comment: Speci men Type: BLOOD SPECIMENOrdering Facility: [facility] Address: [address] [place] [address] Performed By: #### 5 7021-8, 4536-7 ####[facility] [id number] [place] [address] [place] Immature granulocytes (Bld) [#/Vol] 0.31 10*3/uL High <0.10 [facility] Comment on above: Order Comment: Speci men Type: BLOOD SPECIMENOrdering Facility: [facility] Address: [address] [place] [address] Performed By: #### 5 7021-8, 7 ####[facility] LABIA [id number] [place] [address] [place] Immature granulocytes/100 WBC (Bld) 3.0 % Normal [facility] Comment on above: Order Comment: Speci men Type: BLOOD SPECIMENOrdering Facility: [facility] Address: [address] [place] [address] Performed By: #### 5 7021-8, 4536-7 ####[facility] LABCLIA [id number] [place] [address] [place] Lymphocytes (Bld) [#/Vol] 3.66 10*3/uL Normal 1.00-4.00 [facility] Comment on above: Order Comment: Speci men Type: BLOOD SPECIMENOrdering Facility: [facility] Address: [address] [place] [address] Performed By: #### 5 7021-8, 4537-7 ####[facility] LABCLIA [id number] [place] [address] [place] Lymphocytes/100 WBC (Bld) 35.1 % Normal [facility] Comment on above: Order Comment: Speci men Type: BLOOD SPECIMENOrdering Facility: [facility] Address: [address] [place] [address] Performed By: #### 5 7021-8, 4537-7 ####[facility] LABIA [id number] [place] [address] [place] MCH (RBC) [Entitic mass] 28.8 pg Normal 26.0-34.0 [facility] Comment on above: Order Comment: Speci men Type: BLOOD SPECIMENOrdering Facility: [facility] Address: [address] [place] [address] Performed By: #### 5 7021-8, 4537-7 ####[facility] LABIA [id number] [place] [address] [place] MCHC (RBC) [Mass/Vol] 33.4 g/dL Normal 30.5-36.0 [facility] Comment on above: Order Comment: Speci men Type: BLOOD SPECIMENOrdering Facility: [facility] Address: [address] [place] [address] Performed By: #### 5 7021-8, 4537-7 ####[facility] LABCLIA [id number] [place] [address] [place] MCV (RBC) [Entitic vol] 86.3 fL Normal 80.0-100.0 [facility] Comment on above: Order Comment: Speci men Type: BLOOD SPECIMENOrdering Facility: [facility] Address: [address] [place] [address] Performed By: #### 5 7021-8, 4536-7 ####[facility] LABCLIA [id number] [place] [address] [place] Monocytes (Bld) [#/Vol] 0.70 10*3/uL Normal <0.87 [facility] Comment on above: Order Comment: Speci men Type: BLOOD SPECIMENOrdering Facility: [facility] Address: [address] [place] [address] Performed By: #### 5 7021-8, 4536-7 ####[facility] LABCLIA [id number] [place] [address] [place] Monocytes/100 WBC (Bld) 6.7 % Normal [facility] Comment on above: Order Comment: Speci men Type: BLOOD SPECIMENOrdering Facility: [facility] Address: [address] [place] [address] Performed By: #### 5 7021-8, 7 ####[facility] LABCLIA [id number] [place] [address] [place] Neutrophils (Bld) [#/Vol] 5.56 10*3/uL Normal 1.45-7.50 [facility] Comment on above: Order Comment: Speci men Type: BLOOD SPECIMENOrdering Facility: [facility] Address: [address] [place] [address] Performed By: #### 5 7021-8, 4536-7 ####[facility] LABCLIA [id number] [place] [address] [place] Neutrophils/100 WBC (Bld) 53.2 % Normal [facility] Comment on above: Order Comment: Speci men Type: BLOOD SPECIMENOrdering Facility: [facility] Address: [address] [place] [address] Performed By: #### 5 7021-8, 4537-7 ####[facility] LABIA [id number] [place] [address] [place] Nucleated RBC (Bld) [#/Vol] 10*3/uL Normal <0.01 [facility] Comment on above: Order Comment: Speci men Type: BLOOD SPECIMENOrdering Facility: [facility] Address: [address] [place] [address] Performed By: #### 5 7021-8, 4537-7 ####[facility] LABIA [id number] [place] [address] [place] Nucleated RBC/100 WBC (Bld) [Ratio] 0.0 /100 WBC Normal [facility] Comment on above: Order Comment: Speci men Type: BLOOD SPECIMENOrdering Facility: [facility] Address: [address] [place] [address] Performed By: #### 5 7021-8, 7-7 ####[facility] LABIA [id number] [place] [address] [place] Platelet mean volume (Bld) [Entitic vol] 9.6 fL Normal 9.0-12.7 [facility] Comment on above: Order Comment: Speci men Type: BLOOD SPECIMENOrdering Facility: [facility] Address: [address] [place] [address] Performed By: #### 5 7021-8, 4537-7 ####[facility] LABIA [id number] [place] [address] [place] Platelets (Bld) [#/Vol] 331 10*3/uL Normal 150-400 [facility] Comment on above: Order Comment: Speci men Type: BLOOD SPECIMENOrdering Facility: [facility] Address: [address] [place], [place] [id number] Performed By: #### 5 7021-8, 4537-7 ####[facility] LABCLIA [id number] [place] [id number] [place] RBC (Bld) [#/Vol] 4.82 10*6/uL Normal 3.90-5.20 [facility] Comment on above: Order Comment: Speci men Type: BLOOD SPECIMENOrdering Facility: [facility] Address: [address] [place] [address] Performed By: #### 5 7021-8, 4537-7 ####[facility] LABCLIA [id number] [place] [address] [place] WBC (Bld) [#/Vol] 10.44 10*3/uL Normal 3.70-11.00 [facility] Comment on above: Order Comment: Speci men Type: BLOOD SPECIMENOrdering Facility: [facility] Address: [address] [place] [address] Performed By: #### 5 7021-8, 4537-7 ####[facility] LABCLIA [id number] [place] [address] [place] CRP SerPl-mCncon 01-09-2025 CRP [Mass/Vol] 0.4 mg/dL Normal <0.9 [facility] Comment on above: Order Comment: Speci men Type: BLOOD SPECIMENOrdering Facility: [facility] Address: [address] [place] [address] Performed By: #### 2 4321-2, 1988-03 ####[facility] LABCLIA [id number] [place] [id number] [place] ED NOTEon 01-09-2025 ED NOTE Normal [facility] ED PROV NOTEon 01-09-2025 ED PROV NOTE Normal [facility] ED Triage Noteon 01-09-2025 ED Triage Note Normal [facility] ESR Westergren method (Bld) [Velocity]on 01-09-2025 ESR (Bld) [Velocity] 12 mm/h Normal 0-20 [facility] Comment on above: Order Comment: Speci men Type: BLOOD SPECIMENOrdering Facility: [facility] Address: [address] [place] [address] Performed By: #### 5 7021-8, 4537-7 ####[facility] LABCLIA [id number] [place] [address] [place] NURSING PROGon 01-09-2025 NURSING PROG Normal [facility] CNDSon 2025 CNDS Normal [facility] CONSULT PROGon 2025 CONSULT PROG Normal [facility] NURSING PROGon 2025 NURSING PROG Normal [facility] Basic metabolic 2000 panelon 01-06-2025 Anion gap [Moles/Vol] 10 mmol/L Normal 8-15 [facility] Comment on above: Order Comment: Speci men Type: BLOOD SPECIMENOrdering Facility: [facility] Address: [address] [place] [address] Performed By: #### 2 4321-2 ####[facility] LABIA [id number] [place] [address] [place] Calcium [Mass/Vol] 9.0 mg/dL Normal 8.5-10.[address] [facility] Comment on above: Order Comment: Speci men Type: BLOOD SPECIMENOrdering Facility: [facility] Address: [address] [place] [address] Performed By: #### 2 4321-2 ####[facility] LABCLIA [id number] [place] [address] [place] Chloride [Moles/Vol] 107 mmol/L Normal 98-107 [facility] Comment on above: Order Comment: Speci men Type: BLOOD SPECIMENOrdering Facility: [facility] Address: [address] [place] [address] Performed By: #### 2 4321-2 ####[facility] LABCLIA [id number] [place] [address] [place] CO2 [Moles/Vol] 24 mmol/L Normal 22-30 [facility] Comment on above: Order Comment: Speci men Type: BLOOD SPECIMENOrdering Facility: [facility] Address: [address] [place] [address] Performed By: #### 2 4321-2 ####[facility] LABIA [id number] [place] [address] [place] Creatinine [Mass/Vol] 0.66 mg/dL Normal 0.58-0.96 [facility] Comment on above: Order Comment: Speci men Type: BLOOD SPECIMENOrdering Facility: [facility] Address: [address] [place] [address] Performed By: #### 2 4321-2 ####[facility] LABIA [id number] [place] [address] [place] Creatinine and Glomerular filtration rate.predicted panel (S/P/Bld) 119 mL/min/1.73m??? Normal >=60 [facility] Comment on above: Order Comment: Speci men Type: BLOOD SPECIMENOrdering Facility: [facility] Address: [address] [place] [address] Result Comment: Anne-Marie mated Glomerular Filtration Rate (eGFR) is calculated using the 2020 CKD-EPI creatinine equation. This equation utilizes serum creatinine, sex, and age as parameters. The creatinine assay has traceable calibration to isotope dilution-mass spectrometry. Refer to KDIGO guidelines for clinical interpretation. In patients with unstable renal function, e.g. those with acute kidney injury, the eGFR may not accurately reflect actual GFR. Performed By: #### 2 4321-2 ####[facility] LABCLIA [id number] [place] [address] [place] Glucose [Mass/Vol] 98 mg/dL Normal 74-[address] [facility] Comment on above: Order Comment: Speci men Type: BLOOD SPECIMENOrdering Facility: [facility] Address: [address] [place] [id number] Result Comment: The [place] [employer] (ADA) provides guidance for cutoff values for fasting glucose and random glucose. The ADA defines fasting as no caloric intake for at least 8 hours. Fasting plasma glucose results between 100 to 125 mg/dL indicate increased risk for diabetes (prediabetes).Fasting plasma glucose results greater than or equal to 126 mg/dL meet the criteria for diagnosis of diabetes. In the absence of unequivocal hyperglycemia, results should be confirmed by repeat testing. In a patient with classic symptoms of hyperglycemia or hyperglycemic crisis, random plasma glucose results greater than or equal to 200 mg/dL meet the criteria for diagnosis of diabetes.Reference: Standards of Medical Care in Diabetes 2016, [place] [employer]. Diabetes Care. 2016.39(Suppl 1). Performed By: #### 2 4321-2 ####[facility] LABCLIA [id number] [place] [address] [place] Potassium [Moles/Vol] 4.3 mmol/L Normal 3.7-5.1 [facility] Comment on above: Order Comment: Darvini men Type: BLOOD SPECIMENOrdering Facility: [facility] Address: [address] [place], [place] [address] Performed By: #### 2 4321-2 ####[facility] LABCLIA [id number] [place] [address] [place] Sodium [Moles/Vol] 141 mmol/L Normal 136-[address] [facility] Comment on above: Order Comment: Speci men Type: BLOOD SPECIMENOrdering Facility: [facility] Address: [address] [place] [address] Performed By: #### 2 4321-2 ####[facility] LABCLIA [id number] [place] [address] [place] Urea nitrogen [Mass/Vol] 14 mg/dL Normal 7-21 [facility] Comment on above: Order Comment: Speci men Type: BLOOD SPECIMENOrdering Facility: [facility] Address: [address] [place] [address] Performed By: #### 2 4321-2 ####[facility] LABCLIA [id number] [place] [address] [place] CBC W Auto Differential pane l (Bld)on 01-06-2025 Basophils (Bld) [#/Vol] 0.06 10*3/uL Normal <0.11 [facility] Comment on above: Order Comment: Speci men Type: BLOOD SPECIMENOrdering Facility: [facility] Address: [address] [place] [address] Performed By: #### 5 7021-8 ####[facility] LABCLIA [id number] [place] [address] [place] Basophils/100 WBC (Bld) 0.4 % Normal [facility] Comment on above: Order Comment: Speci men Type: BLOOD SPECIMENOrdering Facility: [facility] Address: [address] [place] [address] Performed By: #### 5 7021-8 ####[facility] LABCLIA [id number] [place] [address] [place] Differential cell count method Nom (Bld) Auto Normal [facility] Comment on above: Order Comment: Speci men Type: BLOOD SPECIMENOrdering Facility: [facility] Address: [address] [place] [address] Performed By: #### 5 7021-8 ####[facility] LABCLIA [id number] [place] [address] [place] Eosinophils (Bld) [#/Vol] 10*3/uL Normal <0.46 [facility] Comment on above: Order Comment: Speci men Type: BLOOD SPECIMENOrdering Facility: [facility] Address: [address] [place] [address] Performed By: #### 5 7021-8 ####[facility] LABCLIA [id number] [place] [address] [place] Eosinophils/100 WBC (Bld) 0.0 % Normal [facility] Comment on above: Order Comment: Speci men Type: BLOOD SPECIMENOrdering Facility: [facility] Address: [address] [place] [address] Performed By: #### 5 7021-8 ####[facility] LABCLIA [id number] [place] [address] [place] Erythrocyte distribution width (RBC) [Ratio] 13.5 % Normal 11.5-15.0 [facility] Comment on above: Order Comment: Speci men Type: BLOOD SPECIMENOrdering Facility: [facility] Address: [address] [place] [address] Performed By: #### 5 7021-8 ####[facility] LABCLIA [id number] [place] [address] [place] Hematocrit (Bld) [Volume fraction] 39.3 % Normal 36.0-46.0 [facility] Comment on above: Order Comment: Speci men Type: BLOOD SPECIMENOrdering Facility: [facility] Address: [address] [place] [address] Performed By: #### 5 7021-8 ####[facility] LABCLIA [id number] [place] [address] [place] Hemoglobin (Bld) [Mass/Vol] 12.7 g/dL Normal 11.5-15.5 [facility] Comment on above: Order Comment: Speci men Type: BLOOD SPECIMENOrdering Facility: [facility] Address: [address] [place] [address] Performed By: #### 5 7021-8 ####[facility] LABCLIA [id number] [place] [address] [place] Immature granulocytes (Bld) [#/Vol] 0.44 10*3/uL High <0.10 [facility] Comment on above: Order Comment: Speci men Type: BLOOD SPECIMENOrdering Facility: [facility] Address: [address] [place] [address] Performed By: #### 5 7021-8 ####[facility] LABCLIA [id number] [place] [address] [place] Immature granulocytes/100 WBC (Bld) 3.2 % Normal [facility] Comment on above: Order Comment: Speci men Type: BLOOD SPECIMENOrdering Facility: [facility] Address: [address] [place] [address] Performed By: #### 5 7021-8 ####[facility] LABCLIA [id number] [place] [address] [place] Lymphocytes (Bld) [#/Vol] 1.87 10*3/uL Normal 1.00-4.00 [facility] Comment on above: Order Comment: Speci men Type: BLOOD SPECIMENOrdering Facility: [facility] Address: [address] [place] [address] Performed By: #### 5 7021-8 ####[facility] LABCLIA [id number] [place] [address] [place] Lymphocytes/100 WBC (Bld) 13.5 % Normal [facility] Comment on above: Order Comment: Speci men Type: BLOOD SPECIMENOrdering Facility: [facility] Address: [address] [place] [address] Performed By: #### 5 7021-8 ####[facility] LABCLIA [id number] [place] [address] [place] MCH (RBC) [Entitic mass] 28.6 pg Normal 26.0-34.0 [facility] Comment on above: Order Comment: Speci men Type: BLOOD SPECIMENOrdering Facility: [facility] Address: [address] [place] [address] Performed By: #### 5 7021-8 ####[facility] LABCLIA [id number] [place] [address] [place] MCHC (RBC) [Mass/Vol] 32.3 g/dL Normal 30.5-36.0 [facility] Comment on above: Order Comment: Speci men Type: BLOOD SPECIMENOrdering Facility: [facility] Address: [address] [place] [address] Performed By: #### 5 7021-8 ####[facility] LABCLIA [id number] [place] [address] [place] MCV (RBC) [Entitic vol] 88.5 fL Normal 80.0-100.0 [facility] Comment on above: Order Comment: Speci men Type: BLOOD SPECIMENOrdering Facility: [facility] Address: [address] [place] [address] Performed By: #### 5 7021-8 ####[facility] LABCLIA [id number] [place] [address] [place] Monocytes (Bld) [#/Vol] 0.45 10*3/uL Normal <0.87 [facility] Comment on above: Order Comment: Speci men Type: BLOOD SPECIMENOrdering Facility: [facility] Address: [address] [place] [address] Performed By: #### 5 7021-8 ####[facility] LABCLIA [id number] [place] [address] [place] Monocytes/100 WBC (Bld) 3.3 % Normal [facility] Comment on above: Order Comment: Speci men Type: BLOOD SPECIMENOrdering Facility: [facility] Address: [address] [place] [address] Performed By: #### 5 7021-8 ####[facility] LABCLIA [id number] [place] [address] [place] Neutrophils (Bld) [#/Vol] 11.02 10*3/uL High 1.45-7.50 [facility] Comment on above: Order Comment: Speci men Type: BLOOD SPECIMENOrdering Facility: [facility] Address: [address] [place] [address] Performed By: #### 5 7021-8 ####[facility] LABCLIA [id number] [place] [address] [place] Neutrophils/100 WBC (Bld) 79.6 % Normal [facility] Comment on above: Order Comment: Speci men Type: BLOOD SPECIMENOrdering Facility: [facility] Address: [address] [place] [address] Performed By: #### 5 7021-8 ####[facility] LABCLIA [id number] [place] [address] [place] Nucleated RBC (Bld) [#/Vol] 10*3/uL Normal <0.01 [facility] Comment on above: Order Comment: Speci men Type: BLOOD SPECIMENOrdering Facility: [facility] Address: [address] [place] [address] Performed By: #### 5 7021-8 ####[facility] LABCLIA [id number] [place] [address] [place] Nucleated RBC/100 WBC (Bld) [Ratio] 0.0 /100 WBC Normal [facility] Comment on above: Order Comment: Speci men Type: BLOOD SPECIMENOrdering Facility: [facility] Address: [address] [place] [address] Performed By: #### 5 7021-8 ####[facility] LABCLIA [id number] [place] [address] [place] Platelet mean volume (Bld) [Entitic vol] 10.0 fL Normal 9.0-12.7 [facility] Comment on above: Order Comment: Speci men Type: BLOOD SPECIMENOrdering Facility: [facility] Address: [address] [place] [address] Performed By: #### 5 7021-8 ####[facility] LABCLIA [id number] [address] [address] [place] Platelets (Bld) [#/Vol] 302 10*3/uL Normal 150-400 [facility] Comment on above: Order Comment: Speci men Type: BLOOD SPECIMENOrdering Facility: [facility] Address: [address] [place] [address] Performed By: #### 5 7021-8 ####[facility] [id number] [place] [address] [place] RBC (Bld) [#/Vol] 4.44 10*6/uL Normal 3.90-5.20 [facility] Comment on above: Order Comment: Speci men Type: BLOOD SPECIMENOrdering Facility: [facility] Address: [address] [place] [address] Performed By: #### 5 7021-8 ####[facility] [id number] [place] [address] [place] WBC (Bld) [#/Vol] 13.84 10*3/uL High 3.70-11.00 [facility] Comment on above: Order Comment: Speci men Type: BLOOD SPECIMENOrdering Facility: [facility] Address: [address] [place] [address] Performed By: #### 5 7021-8 ####[facility] [id number] [place] [address] [place] CONSULT PROGon 01-06-2025 CONSULT PROG Normal [facility] CONSULT PROG Normal [facility] NURSING PROGon 01-06-2025 NURSING PROG Normal [facility] Basic metabolic 2000 panelon 01-05-2025 Anion gap [Moles/Vol] 15 mmol/L Normal 8-15 [facility] Comment on above: Order Comment: Speci men Type: BLOOD SPECIMENOrdering Facility: [facility] Address: [address] [place] [address] Performed By: #### 2 4321-2 ####[facility] LABCLIA [id number] [place] [address] [place] Calcium [Mass/Vol] 9.1 mg/dL Normal 8.5-10.[address] [facility] Comment on above: Order Comment: Speci men Type: BLOOD SPECIMENOrdering Facility: [facility] Address: [address] [place] [address] Performed By: #### 2 4321-2 ####[facility] LABCLIA [id number] [place] [address] [place] Chloride [Moles/Vol] 105 mmol/L Normal 98-107 [facility] Comment on above: Order Comment: Speci men Type: BLOOD SPECIMENOrdering Facility: [facility] Address: [address] [place] [address] Performed By: #### 2 4321-2 ####[facility] LABCLIA [id number] [place] [address] [place] CO2 [Moles/Vol] 20 mmol/L Low 22-30 [facility] Comment on above: Order Comment: Speci men Type: BLOOD SPECIMENOrdering Facility: [facility] Address: [address] [place] [address] Performed By: #### 2 4321-2 ####[facility] LABCLIA [id number] [place] [address] [place] Creatinine [Mass/Vol] 0.81 mg/dL Normal 0.58-0.96 [facility] Comment on above: Order Comment: Speci men Type: BLOOD SPECIMENOrdering Facility: [facility] Address: [address] [place] [address] Performed By: #### 2 4321-2 ####[facility] LABCLIA [id number] [place] [address] [place] Creatinine and Glomerular filtration rate.predicted panel (S/P/Bld) 98 mL/min/1.73m??? Normal >=60 [facility] Comment on above: Order Comment: Mookie roberts Type: BLOOD SPECIMENOrdering Facility: [facility] Address: [address] [place] [address] Result Comment: Anne-Marie mated Glomerular Filtration Rate (eGFR) is calculated using the 2020 CKD-EPI creatinine equation. This equation utilizes serum creatinine, sex, and age as parameters. The creatinine assay has traceable calibration to isotope dilution-mass spectrometry. Refer to KDIGO guidelines for clinical interpretation. In patients with unstable renal function, e.g. those with acute kidney injury, the eGFR may not accurately reflect actual GFR. Performed By: #### 2 4321-2 ####[facility] LABIA [id number] [place] [address] [place] Glucose [Mass/Vol] 117 mg/dL High 74-[address] [facility] Comment on above: Order Comment: Mookie roberts Type: BLOOD SPECIMENOrdering Facility: [facility] Address: [address] [place] [address] Result Comment: The [place] Diabetes [employer] (ADA) provides guidance for cutoff values for fasting glucose and random glucose. The ADA defines fasting as no caloric intake for at least 8 hours. Fasting plasma glucose results between 100 to 125 mg/dL indicate increased risk for diabetes (prediabetes).Fasting plasma glucose results greater than or equal to 126 mg/dL meet the criteria for diagnosis of diabetes. In the absence of unequivocal hyperglycemia, results should be confirmed by repeat testing. In a patient with classic symptoms of hyperglycemia or hyperglycemic crisis, random plasma glucose results greater than or equal to 200 mg/dL meet the criteria for diagnosis of diabetes.Reference: Standards of Medical Care in Diabetes 2016, [place] [employer]. Diabetes Care. 2016.39(Suppl 1). Performed By: #### 2 4321-2 ####[facility] LABIA [id number] [place] [address] [place] Potassium [Moles/Vol] 4.1 mmol/L Normal 3.7-5.1 [facility] Comment on above: Order Comment: Speci men Type: BLOOD SPECIMENOrdering Facility: [facility] Address: [address] [place] [address] Performed By: #### 2 4321-2 ####[facility] LABCLIA [id number] [place] [id number] [place] Sodium [Moles/Vol] 140 mmol/L Normal 136-[address] [facility] Comment on above: Order Comment: Speci men Type: BLOOD SPECIMENOrdering Facility: [facility] Address: [address] [place] [address] Performed By: #### 2 4321-2 ####[facility] LABIA [id number] [place] [address] [place] Urea nitrogen [Mass/Vol] 15 mg/dL Normal 7-21 [facility] Comment on above: Order Comment: Speci men Type: BLOOD SPECIMENOrdering Facility: [facility] Address: [address] [place] [address] Performed By: #### 2 4321-2 ####[facility] LABIA [id number] [place] [address] [place] CASE MANAGEMon 01-05-2025 CASE MANAGEM Normal [facility] CBC W Auto Differential pane l (Bld)on 01-05-2025 Basophils (Bld) [#/Vol] 0.04 10*3/uL Normal <0.11 [facility] Comment on above: Order Comment: Speci men Type: BLOOD SPECIMENOrdering Facility: [facility] Address: [address] [place] [address] Performed By: #### 5 7021-8 ####[facility] LABIA [id number] [place] [address] [place] Basophils/100 WBC (Bld) 0.3 % Normal [facility] Comment on above: Order Comment: Speci men Type: BLOOD SPECIMENOrdering Facility: [facility] Address: [address] [place] [address] Performed By: #### 5 7021-8 ####[facility] LABCLIA [id number] [place] [address] [place] Differential cell count method Nom (Bld) Auto Normal [facility] Comment on above: Order Comment: Speci men Type: BLOOD SPECIMENOrdering Facility: [facility] Address: [address] [place] [address] Performed By: #### 5 7021-8 ####[facility] LABCLIA [id number] [place] [address] [place] Eosinophils (Bld) [#/Vol] 10*3/uL Normal <0.46 [facility] Comment on above: Order Comment: Speci men Type: BLOOD SPECIMENOrdering Facility: [facility] Address: [address] [place] [address] Performed By: #### 5 7021-8 ####[facility] LABCLIA [id number] [place] [address] [place] Eosinophils/100 WBC (Bld) 0.2 % Normal [facility] Comment on above: Order Comment: Speci men Type: BLOOD SPECIMENOrdering Facility: [facility] Address: [address] [place] [address] Performed By: #### 5 7021-8 ####[facility] LABCLIA [id number] [place] [address] [place] Erythrocyte distribution width (RBC) [Ratio] 13.2 % Normal 11.5-15.0 [facility] Comment on above: Order Comment: Speci men Type: BLOOD SPECIMENOrdering Facility: [facility] Address: [address] [place] [address] Performed By: #### 5 7021-8 ####[facility] LABCLIA [id number] [place] [address] [place] Hematocrit (Bld) [Volume fraction] 38.7 % Normal 36.0-46.0 [facility] Comment on above: Order Comment: Speci men Type: BLOOD SPECIMENOrdering Facility: [facility] Address: [address] [place] [address] Performed By: #### 5 7021-8 ####[facility] LABCLIA [id number] [place] [address] [place] Hemoglobin (Bld) [Mass/Vol] 13.0 g/dL Normal 11.5-15.5 [facility] Comment on above: Order Comment: Speci men Type: BLOOD SPECIMENOrdering Facility: [facility] Address: [address] [place] [address] Performed By: #### 5 7021-8 ####[facility] LABCLIA [id number] [place] [address] [place] Immature granulocytes (Bld) [#/Vol] 0.25 10*3/uL High <0.10 [facility] Comment on above: Order Comment: Speci men Type: BLOOD SPECIMENOrdering Facility: [facility] Address: [address] [place] [address] Performed By: #### 5 7021-8 ####[facility] LABCLIA [id number] [place] [address] [place] Immature granulocytes/100 WBC (Bld) 2.1 % Normal [facility] Comment on above: Order Comment: Speci men Type: BLOOD SPECIMENOrdering Facility: [facility] Address: [address] [place] [address] Performed By: #### 5 7021-8 ####[facility] LABCLIA [id number] [place] [address] [place] Lymphocytes (Bld) [#/Vol] 1.44 10*3/uL Normal 1.00-4.00 [facility] Comment on above: Order Comment: Speci men Type: BLOOD SPECIMENOrdering Facility: [facility] Address: [address] [place] [address] Performed By: #### 5 7021-8 ####[facility] LABCLIA [id number] [place] [address] [place] Lymphocytes/100 WBC (Bld) 12.2 % Normal [facility] Comment on above: Order Comment: Speci men Type: BLOOD SPECIMENOrdering Facility: [facility] Address: [address] [place] [address] Performed By: #### 5 7021-8 ####[facility] LABIA [id number] [place] [address] [place] MCH (RBC) [Entitic mass] 29.3 pg Normal 26.0-34.0 [facility] Comment on above: Order Comment: Speci men Type: BLOOD SPECIMENOrdering Facility: [facility] Address: [address] [place] [address] Performed By: #### 5 7021-8 ####[facility] LABIA [id number] [place] [address] [place] MCHC (RBC) [Mass/Vol] 33.6 g/dL Normal 30.5-36.0 [facility] Comment on above: Order Comment: Speci men Type: BLOOD SPECIMENOrdering Facility: [facility] Address: [address] [place] [address] Performed By: #### 5 7021-8 ####[facility] LABIA [id number] [place] [address] [place] MCV (RBC) [Entitic vol] 87.2 fL Normal 80.0-100.0 [facility] Comment on above: Order Comment: Speci men Type: BLOOD SPECIMENOrdering Facility: [facility] Address: [address] [place] [address] Performed By: #### 5 7021-8 ####[facility] LABIA [id number] [place] [address] [place] Monocytes (Bld) [#/Vol] 0.66 10*3/uL Normal <0.87 [facility] Comment on above: Order Comment: Speci men Type: BLOOD SPECIMENOrdering Facility: [facility] Address: [address] [place] [address] Performed By: #### 5 7021-8 ####[facility] LABCLIA [id number] [place] [address] [place] Monocytes/100 WBC (Bld) 5.6 % Normal [facility] Comment on above: Order Comment: Speci men Type: BLOOD SPECIMENOrdering Facility: [facility] Address: [address] [place] [address] Performed By: #### 5 7021-8 ####[facility] LABCLIA [id number] [place] [address] [place] Neutrophils (Bld) [#/Vol] 9.36 10*3/uL High 1.45-7.50 [facility] Comment on above: Order Comment: Speci men Type: BLOOD SPECIMENOrdering Facility: [facility] Address: [address] [place] [address] Performed By: #### 5 7021-8 ####[facility] LABCLIA [id number] [place] [address] [place] Neutrophils/100 WBC (Bld) 79.6 % Normal [facility] Comment on above: Order Comment: Speci men Type: BLOOD SPECIMENOrdering Facility: [facility] Address: [address] [place] [address] Performed By: #### 5 7021-8 ####[facility] LABCLIA [id number] [place] [address] [place] Nucleated RBC (Bld) [#/Vol] 10*3/uL Normal <0.01 [facility] Comment on above: Order Comment: Speci men Type: BLOOD SPECIMENOrdering Facility: [facility] Address: [address] [place] [address] Performed By: #### 5 7021-8 ####[facility] LABCLIA [id number] [place] [address] [place] Nucleated RBC/100 WBC (Bld) [Ratio] 0.0 /100 WBC Normal [facility] Comment on above: Order Comment: Speci men Type: BLOOD SPECIMENOrdering Facility: [facility] Address: [address] [place] [address] Performed By: #### 5 7021-8 ####[facility] LABCLIA [id number] [place] [address] [place] Platelet mean volume (Bld) [Entitic vol] 10.3 fL Normal 9.0-12.7 [facility] Comment on above: Order Comment: Speci men Type: BLOOD SPECIMENOrdering Facility: [facility] Address: [address] [place] [address] Performed By: #### 5 7021-8 ####[facility] LABIA [id number] [place] [address] [place] Platelets (Bld) [#/Vol] 322 10*3/uL Normal 150-400 [facility] Comment on above: Order Comment: Speci men Type: BLOOD SPECIMENOrdering Facility: [facility] Address: [address] [place] [address] Performed By: #### 5 7021-8 ####[facility] LABCLIA [id number] [place] [address] [place] RBC (Bld) [#/Vol] 4.44 10*6/uL Normal 3.90-5.20 [facility] Comment on above: Order Comment: Speci men Type: BLOOD SPECIMENOrdering Facility: [facility] Address: [address] [place] [address] Performed By: #### 5 7021-8 ####[facility] LABIA [id number] [place] [address] [place] WBC (Bld) [#/Vol] 11.77 10*3/uL High 3.70-11.00 [facility] Comment on above: Order Comment: Speci men Type: BLOOD SPECIMENOrdering Facility: [facility] Address: [address] [place] [address] Performed By: #### 5 7021-8 ####[facility] LABCLIA [id number] [place] [address] [place] CONSULTon 01-05-2025 CONSULT Normal [facility] CONSULT PROGon 01-05-2025 CONSULT PROG Normal [facility] CONSULT PROG Normal [facility] MEDICAL EMERon 01-05-2025 MEDICAL RAQUEL Normal [facility] NURSING PROGon 01-05-2025 NURSING PROG Normal [facility] TRYPTASE BLOODon 01-05-2025 Tryptase [Mass/Vol] 3.6 ug/L Normal <8.4 [facility] Comment on above: Order Comment: Speci men Type: BLOOD SPECIMENOrdering Facility: [facility] Address: [address] [place] [address] Performed By: #### T RYPT ####[facility] LABIA [id number] [place] [address] [place] Basic metabolic 2000 panelon 01-04-2025 Anion gap [Moles/Vol] 12 mmol/L Normal 8-15 [facility] Comment on above: Order Comment: Speci men Type: BLOOD SPECIMENOrdering Facility: [facility] Address: [address] [place] [address] Performed By: #### 2 4321-2, 1988-03 ####[facility] LABCLIA [id number] [place] [address] [place] Calcium [Mass/Vol] 9.0 mg/dL Normal 8.5-10.[address] [facility] Comment on above: Order Comment: Speci men Type: BLOOD SPECIMENOrdering Facility: [facility] Address: [address] [place] [id number] Performed By: #### 2 4320-12, 1988-03 ####[facility] LABCLIA [id number] [address] [address] [place] Chloride [Moles/Vol] 104 mmol/L Normal 98-107 [facility] Comment on above: Order Comment: Speci men Type: BLOOD SPECIMENOrdering Facility: [facility] Address: [address] [place] [address] Performed By: #### 2 4320-12, 1988-03 ####[facility] LABCLIA [id number] [place] [address] [place] CO2 [Moles/Vol] 23 mmol/L Normal 22-30 [facility] Comment on above: Order Comment: Speci men Type: BLOOD SPECIMENOrdering Facility: [facility] Address: [address] [place] [address] Performed By: #### 2 4320-12, 1988-03 ####[facility] LABCLIA [id number] [place] [address] [place] Creatinine [Mass/Vol] 0.80 mg/dL Normal 0.58-0.96 [facility] Comment on above: Order Comment: Speci men Type: BLOOD SPECIMENOrdering Facility: [facility] Address: [address] [place] [address] Performed By: #### 2 4320-12, 1988-03 ####[facility] LABCLIA [id number] [place] [id number] [place] Creatinine and Glomerular filtration rate.predicted panel (S/P/Bld) 100 mL/min/1.73m??? Normal >=60 [facility] Comment on above: Order Comment: Speci men Type: BLOOD SPECIMENOrdering Facility: [facility] Address: [address] [place] [address] Result Comment: Anne-Marie mated Glomerular Filtration Rate (eGFR) is calculated using the 2020 CKD-EPI creatinine equation. This equation utilizes serum creatinine, sex, and age as parameters. The creatinine assay has traceable calibration to isotope dilution-mass spectrometry. Refer to KDIGO guidelines for clinical interpretation. In patients with unstable renal function, e.g. those with acute kidney injury, the eGFR may not accurately reflect actual GFR. Performed By: #### 2 4320-12, 1988-03 ####[facility] LABCLIA [id number] [place] [address] [place] Glucose [Mass/Vol] 84 mg/dL Normal 74-[address] [facility] Comment on above: Order Comment: Speci men Type: BLOOD SPECIMENOrdering Facility: [facility] Address: [address] [place] [address] Result Comment: The [place] [employer] (ADA) provides guidance for cutoff values for fasting glucose and random glucose. The ADA defines fasting as no caloric intake for at least 8 hours. Fasting plasma glucose results between 100 to 125 mg/dL indicate increased risk for diabetes (prediabetes).Fasting plasma glucose results greater than or equal to 126 mg/dL meet the criteria for diagnosis of diabetes. In the absence of unequivocal hyperglycemia, results should be confirmed by repeat testing. In a patient with classic symptoms of hyperglycemia or hyperglycemic crisis, random plasma glucose results greater than or equal to 200 mg/dL meet the criteria for diagnosis of diabetes.Reference: Standards of Medical Care in Diabetes 2016, [place] [employer]. Diabetes Care. 2016.39(Suppl 1). Performed By: #### 2 4320-12, 1988-03 ####[facility] LABIA [id number] [place] [id number] [place] Potassium [Moles/Vol] 4.5 mmol/L Normal 3.7-5.1 [facility] Comment on above: Order Comment: Speci men Type: BLOOD SPECIMENOrdering Facility: [facility] Address: [address] [place] [address] Performed By: #### 2 4320-12, 1988-03 ####[facility] LABIA [id number] [place] [id number] [place] Sodium [Moles/Vol] 139 mmol/L Normal 136-[address] [facility] Comment on above: Order Comment: Speci men Type: BLOOD SPECIMENOrdering Facility: [facility] Address: [address] [place] [address] Performed By: #### 2 43211-24, 1988-03 ####[facility] LABCLIA [id number] [place] [address] [place] Urea nitrogen [Mass/Vol] 16 mg/dL Normal 7-21 [facility] Comment on above: Order Comment: Speci men Type: BLOOD SPECIMENOrdering Facility: [facility] Address: [address] [place] [address] Performed By: #### 2 43211-24, 1988-03 ####[facility] LABCLIA [id number] [place] [address] [place] CBC W Auto Differential pane l (Bld)on 01-04-2025 Basophils (Bld) [#/Vol] 0.05 10*3/uL Normal <0.11 [facility] Comment on above: Order Comment: Speci men Type: BLOOD SPECIMENOrdering Facility: [facility] Address: [address] [place] [address] Performed By: #### 5 7021-8 ####[facility] LABCLIA [id number] [place] [address] [place] Basophils/100 WBC (Bld) 0.7 % Normal [facility] Comment on above: Order Comment: Speci men Type: BLOOD SPECIMENOrdering Facility: [facility] Address: [address] [place] [address] Performed By: #### 5 7021-8 ####[facility] LABCLIA [id number] [place] [address] [place] Differential cell count method Nom (Bld) Auto Normal [facility] Comment on above: Order Comment: Speci men Type: BLOOD SPECIMENOrdering Facility: [facility] Address: [address] [place] [address] Performed By: #### 5 7021-8 ####[facility] LABCLIA [id number] [place] [address] [place] Eosinophils (Bld) [#/Vol] 0.15 10*3/uL Normal <0.46 [facility] Comment on above: Order Comment: Speci men Type: BLOOD SPECIMENOrdering Facility: [facility] Address: [address] [place] [address] Performed By: #### 5 7021-8 ####[facility] LABCLIA [id number] [place] [address] [place] Eosinophils/100 WBC (Bld) 2.1 % Normal [facility] Comment on above: Order Comment: Speci men Type: BLOOD SPECIMENOrdering Facility: [facility] Address: [address] [place] [address] Performed By: #### 5 7021-8 ####[facility] LABCLIA [id number] [place] [address] [place] Erythrocyte distribution width (RBC) [Ratio] 13.3 % Normal 11.5-15.0 [facility] Comment on above: Order Comment: Speci men Type: BLOOD SPECIMENOrdering Facility: [facility] Address: [address] [place] [address] Performed By: #### 5 7021-8 ####[facility] LABCLIA [id number] [place] [address] [place] Hematocrit (Bld) [Volume fraction] 38.3 % Normal 36.0-46.0 [facility] Comment on above: Order Comment: Speci men Type: BLOOD SPECIMENOrdering Facility: [facility] Address: [address] [place] [address] Performed By: #### 5 7021-8 ####[facility] LABCLIA [id number] [place] [address] [place] Hemoglobin (Bld) [Mass/Vol] 12.7 g/dL Normal 11.5-15.5 [facility] Comment on above: Order Comment: Speci men Type: BLOOD SPECIMENOrdering Facility: [facility] Address: [address] [place] [address] Performed By: #### 5 7021-8 ####[facility] LABCLIA [id number] [place] [address] [place] Immature granulocytes (Bld) [#/Vol] 0.15 10*3/uL High <0.10 [facility] Comment on above: Order Comment: Speci men Type: BLOOD SPECIMENOrdering Facility: [facility] Address: [address] [place] [address] Performed By: #### 5 7021-8 ####[facility] LABCLIA [id number] [place] [address] [place] Immature granulocytes/100 WBC (Bld) 2.1 % Normal [facility] Comment on above: Order Comment: Speci men Type: BLOOD SPECIMENOrdering Facility: [facility] Address: [address] [place] [address] Performed By: #### 5 7021-8 ####[facility] LABCLIA [id number] [place] [address] [place] Lymphocytes (Bld) [#/Vol] 3.70 10*3/uL Normal 1.00-4.00 [facility] Comment on above: Order Comment: Speci men Type: BLOOD SPECIMENOrdering Facility: [facility] Address: [address] [place] [address] Performed By: #### 5 7021-8 ####[facility] LABCLIA [id number] [place] [address] [place] Lymphocytes/100 WBC (Bld) 52.9 % Normal [facility] Comment on above: Order Comment: Speci men Type: BLOOD SPECIMENOrdering Facility: [facility] Address: [address] [place] [address] Performed By: #### 5 7021-8 ####[facility] [id number] [place] [address] [place] MCH (RBC) [Entitic mass] 29.4 pg Normal 26.0-34.0 [facility] Comment on above: Order Comment: Speci men Type: BLOOD SPECIMENOrdering Facility: [facility] Address: [address] [place] [address] Performed By: #### 5 7021-8 ####[facility] [id number] [place] [address] [place] MCHC (RBC) [Mass/Vol] 33.2 g/dL Normal 30.5-36.0 [facility] Comment on above: Order Comment: Speci men Type: BLOOD SPECIMENOrdering Facility: [facility] Address: [address] [place] [address] Performed By: #### 5 7021-8 ####[facility] [id number] [place] [address] [place] MCV (RBC) [Entitic vol] 88.7 fL Normal 80.0-100.0 [facility] Comment on above: Order Comment: Speci men Type: BLOOD SPECIMENOrdering Facility: [facility] Address: [address] [place] [address] Performed By: #### 5 7021-8 ####[facility] [id number] [place] [address] [place] Monocytes (Bld) [#/Vol] 0.48 10*3/uL Normal <0.87 [facility] Comment on above: Order Comment: Speci men Type: BLOOD SPECIMENOrdering Facility: [facility] Address: [address] [place] [address] Performed By: #### 5 7021-8 ####[facility] LABCLIA [id number] [place] [address] [place] Monocytes/100 WBC (Bld) 6.9 % Normal [facility] Comment on above: Order Comment: Speci men Type: BLOOD SPECIMENOrdering Facility: [facility] Address: [address] [place] [address] Performed By: #### 5 7021-8 ####[facility] LABCLIA [id number] [place] [address] [place] Neutrophils (Bld) [#/Vol] 2.47 10*3/uL Normal 1.45-7.50 [facility] Comment on above: Order Comment: Speci men Type: BLOOD SPECIMENOrdering Facility: [facility] Address: [address] [place] [address] Performed By: #### 5 7021-8 ####[facility] LABCLIA [id number] [place] [address] [place] Neutrophils/100 WBC (Bld) 35.3 % Normal [facility] Comment on above: Order Comment: Speci men Type: BLOOD SPECIMENOrdering Facility: [facility] Address: [address] [place] [address] Performed By: #### 5 7021-8 ####[facility] LABCLIA [id number] [place] [address] [place] Nucleated RBC (Bld) [#/Vol] 10*3/uL Normal <0.01 [facility] Comment on above: Order Comment: Speci men Type: BLOOD SPECIMENOrdering Facility: [facility] Address: [address] [place] [address] Performed By: #### 5 7021-8 ####[facility] LABCLIA [id number] [place] [address] [place] Nucleated RBC/100 WBC (Bld) [Ratio] 0.0 /100 WBC Normal [facility] Comment on above: Order Comment: Speci men Type: BLOOD SPECIMENOrdering Facility: [facility] Address: [address] [place] [address] Performed By: #### 5 7021-8 ####[facility] LABCLIA [id number] [place] [address] [place] Platelet mean volume (Bld) [Entitic vol] 9.8 fL Normal 9.0-12.7 [facility] Comment on above: Order Comment: Speci men Type: BLOOD SPECIMENOrdering Facility: [facility] Address: [address] [place] [address] Performed By: #### 5 7021-8 ####[facility] LABIA [id number] [place] [address] [place] Platelets (Bld) [#/Vol] 260 10*3/uL Normal 150-400 [facility] Comment on above: Order Comment: Speci men Type: BLOOD SPECIMENOrdering Facility: [facility] Address: [address] [place] [address] Performed By: #### 5 7021-8 ####[facility] LABIA [id number] [place] [address] [place] RBC (Bld) [#/Vol] 4.32 10*6/uL Normal 3.90-5.20 [facility] Comment on above: Order Comment: Speci men Type: BLOOD SPECIMENOrdering Facility: [facility] Address: [address] [place] [address] Performed By: #### 5 7021-8 ####[facility] LABIA [id number] [place] [address] [place] WBC (Bld) [#/Vol] 7.00 10*3/uL Normal 3.70-11.00 [facility] Comment on above: Order Comment: Speci men Type: BLOOD SPECIMENOrdering Facility: [facility] Address: [address] [place] [address] Performed By: #### 5 7021-8 ####[facility] LABCLIA [id number] [place] [id number] [place] CONSULTon 01-04-2025 CONSULT Normal [facility] CONSULT PROGon 01-04-2025 CONSULT PROG Normal [facility] CONSULT PROG Normal [facility] CRP SerPl-mCncon 01-04-2025 CRP [Mass/Vol] 1.3 mg/dL High <0.9 [facility] Comment on above: Order Comment: Speci men Type: BLOOD SPECIMENOrdering Facility: [facility] Address: [address] [place] [address] Performed By: #### 2 4321-2, 1988-03 ####[facility] LABCLIA [id number] [place] [id number] [place] [id number] 01-04-2025 ECG01 Normal [facility] Basic metabolic 2000 panelon 01-03-2025 Anion gap [Moles/Vol] 9 mmol/L Normal 8-15 [facility] Comment on above: Order Comment: Speci men Type: BLOOD SPECIMENOrdering Facility: [facility] Address: [address] [place] [address] Performed By: #### 1 988-5, 34798-6 ####[facility] LABCLIA [id number] [place] [id number] [place] Calcium [Mass/Vol] 9.3 mg/dL Normal 8.5-10.[address] [facility] Comment on above: Order Comment: Speci men Type: BLOOD SPECIMENOrdering Facility: [facility] Address: [address] [place] [address] Performed By: #### 1 988-5, 70240-6 ####[facility] LABCLIA [id number] [place] [id number] [place] Chloride [Moles/Vol] 106 mmol/L Normal 98-107 [facility] Comment on above: Order Comment: Speci men Type: BLOOD SPECIMENOrdering Facility: [facility] Address: [address] [place] [address] Performed By: #### 1 988-5, 57982-9 ####[facility] LABIA [id number] [place] [id number] [place] CO2 [Moles/Vol] 27 mmol/L Normal 22-30 [facility] Comment on above: Order Comment: Speci men Type: BLOOD SPECIMENOrdering Facility: [facility] Address: [address] [place] [address] Performed By: #### 1 988-5, ####[facility] LABIA [id number] [place] [address] [place] Creatinine [Mass/Vol] 0.88 mg/dL Normal 0.58-0.96 [facility] Comment on above: Order Comment: Speci men Type: BLOOD SPECIMENOrdering Facility: [facility] Address: [address] [place] [address] Performed By: #### 1 988-5, ####[facility] LABIA [id number] [address] [place] Creatinine and Glomerular filtration rate.predicted panel (S/P/Bld) 89 mL/min/1.73m??? Normal >=60 [facility] Comment on above: Order Comment: Speci men Type: BLOOD SPECIMENOrdering Facility: [facility] Address: [address] [place] [address] Result Comment: Anne-Marie mated Glomerular Filtration Rate (eGFR) is calculated using the 2020 CKD-EPI creatinine equation. This equation utilizes serum creatinine, sex, and age as parameters. The creatinine assay has traceable calibration to isotope dilution-mass spectrometry. Refer to KDIGO guidelines for clinical interpretation. In patients with unstable renal function, e.g. those with acute kidney injury, the eGFR may not accurately reflect actual GFR. Performed By: #### 1 988-5, ####[facility] LABCLIA [id number] [place] [address] [place] Glucose [Mass/Vol] 96 mg/dL Normal 74-[address] [facility] Comment on above: Order Comment: Speci men Type: BLOOD SPECIMENOrdering Facility: [facility] Address: [address] [place] [address] Result Comment: The [place] [employer] (ADA) provides guidance for cutoff values for fasting glucose and random glucose. The ADA defines fasting as no caloric intake for at least 8 hours. Fasting plasma glucose results between 100 to 125 mg/dL indicate increased risk for diabetes (prediabetes).Fasting plasma glucose results greater than or equal to 126 mg/dL meet the criteria for diagnosis of diabetes. In the absence of unequivocal hyperglycemia, results should be confirmed by repeat testing. In a patient with classic symptoms of hyperglycemia or hyperglycemic crisis, random plasma glucose results greater than or equal to 200 mg/dL meet the criteria for diagnosis of diabetes.Reference: Standards of Medical Care in Diabetes 2016, [place] [employer]. Diabetes Care. 2016.39(Suppl 1). Performed By: #### 1 988-5, ####[facility]IA [id number] [place] [address] [place] Potassium [Moles/Vol] 4.0 mmol/L Normal 3.7-5.1 [facility] Comment on above: Order Comment: Speci men Type: BLOOD SPECIMENOrdering Facility: [facility] Address: [address] [place] [address] Performed By: #### 1 988-5, ####[facility] LABIA [id number] [place] [address] [place] Sodium [Moles/Vol] 142 mmol/L Normal 136-[address] [facility] Comment on above: Order Comment: Speci men Type: BLOOD SPECIMENOrdering Facility: [facility] Address: [address] [place] [address] Performed By: #### 1 988-5, 05855-8 ####[facility] LABCLIA [id number] [place] [address] [place] Urea nitrogen [Mass/Vol] 19 mg/dL Normal 7-21 [facility] Comment on above: Order Comment: Speci men Type: BLOOD SPECIMENOrdering Facility: [facility] Address: [address] [place] [address] Performed By: #### 1 988-5, 01719-1 ####[facility] LABCLIA [id number] [place] [address] [place] CASE MGT INIT ASSESon 2024 CASE MGT INIT ASSES Normal [facility] CBC W Auto Differential pane l (Bld)on 01-03-2025 Basophils (Bld) [#/Vol] 0.04 10*3/uL Normal <0.11 [facility] Comment on above: Order Comment: Speci men Type: BLOOD SPECIMENOrdering Facility: [facility] Address: [address] [place] [address] Performed By: #### 5 7021-8 ####[facility] LABCLIA [id number] [place] [address] [place] Basophils/100 WBC (Bld) 0.6 % Normal [facility] Comment on above: Order Comment: Speci men Type: BLOOD SPECIMENOrdering Facility: [facility] Address: [address] [place] [address] Performed By: #### 5 7021-8 ####[facility] LABCLIA [id number] [place] [address] [place] Differential cell count method Nom (Bld) Auto Normal [facility] Comment on above: Order Comment: Speci men Type: BLOOD SPECIMENOrdering Facility: [facility] Address: [address] [place] [address] Performed By: #### 5 7021-8 ####[facility] LABCLIA [id number] [place] [address] [place] Eosinophils (Bld) [#/Vol] 0.13 10*3/uL Normal <0.46 [facility] Comment on above: Order Comment: Speci men Type: BLOOD SPECIMENOrdering Facility: [facility] Address: [address] [place] [address] Performed By: #### 5 7021-8 ####[facility] LABCLIA [id number] [place] [address] [place] Eosinophils/100 WBC (Bld) 2.0 % Normal [facility] Comment on above: Order Comment: Speci men Type: BLOOD SPECIMENOrdering Facility: [facility] Address: [address] [place] [address] Performed By: #### 5 7021-8 ####[facility] LABCLIA [id number] [place] [address] [place] Erythrocyte distribution width (RBC) [Ratio] 13.6 % Normal 11.5-15.0 [facility] Comment on above: Order Comment: Speci men Type: BLOOD SPECIMENOrdering Facility: [facility] Address: [address] [place] [address] Performed By: #### 5 7021-8 ####[facility] LABCLIA [id number] [place] [address] [place] Hematocrit (Bld) [Volume fraction] 39.0 % Normal 36.0-46.0 [facility] Comment on above: Order Comment: Speci men Type: BLOOD SPECIMENOrdering Facility: [facility] Address: [address] [place] [address] Performed By: #### 5 7021-8 ####[facility] LABCLIA [id number] [place] [address] [place] Hemoglobin (Bld) [Mass/Vol] 12.6 g/dL Normal 11.5-15.5 [facility] Comment on above: Order Comment: Speci men Type: BLOOD SPECIMENOrdering Facility: [facility] Address: [address] [place] [address] Performed By: #### 5 7021-8 ####[facility] LABCLIA [id number] [place] [address] [place] Immature granulocytes (Bld) [#/Vol] 0.08 10*3/uL Normal <0.10 [facility] Comment on above: Order Comment: Speci men Type: BLOOD SPECIMENOrdering Facility: [facility] Address: [address] [place] [address] Performed By: #### 5 7021-8 ####[facility] LABCLIA [id number] [place] [address] [place] Immature granulocytes/100 WBC (Bld) 1.3 % Normal [facility] Comment on above: Order Comment: Speci men Type: BLOOD SPECIMENOrdering Facility: [facility] Address: [address] [place] [address] Performed By: #### 5 7021-8 ####[facility] LABCLIA [id number] [place] [address] [place] Lymphocytes (Bld) [#/Vol] 3.30 10*3/uL Normal 1.00-4.00 [facility] Comment on above: Order Comment: Speci men Type: BLOOD SPECIMENOrdering Facility: [facility] Address: [address] [place] [address] Performed By: #### 5 7021-8 ####[facility] LABCLIA [id number] [place] [address] [place] Lymphocytes/100 WBC (Bld) 51.9 % Normal [facility] Comment on above: Order Comment: Speci men Type: BLOOD SPECIMENOrdering Facility: [facility] Address: [address] [place] [address] Performed By: #### 5 7021-8 ####[facility] LABCLIA [id number] [place] [address] [place] MCH (RBC) [Entitic mass] 29.2 pg Normal 26.0-34.0 [facility] Comment on above: Order Comment: Speci men Type: BLOOD SPECIMENOrdering Facility: [facility] Address: [address] [place] [address] Performed By: #### 5 7021-8 ####[facility] LABIA [id number] [place] [address] [place] MCHC (RBC) [Mass/Vol] 32.3 g/dL Normal 30.5-36.0 [facility] Comment on above: Order Comment: Speci men Type: BLOOD SPECIMENOrdering Facility: [facility] Address: [address] [place] [address] Performed By: #### 5 7021-8 ####[facility]IA [id number] [place] [address] [place] MCV (RBC) [Entitic vol] 90.5 fL Normal 80.0-100.0 [facility] Comment on above: Order Comment: Speci men Type: BLOOD SPECIMENOrdering Facility: [facility] Address: [address] [place] [address] Performed By: #### 5 7021-8 ####[facility] [id number] [place] [address] [place] Monocytes (Bld) [#/Vol] 0.46 10*3/uL Normal <0.87 [facility] Comment on above: Order Comment: Speci men Type: BLOOD SPECIMENOrdering Facility: [facility] Address: [address] [place] [address] Performed By: #### 5 7021-8 ####[facility] LABIA [id number] [place] [address] [place] Monocytes/100 WBC (Bld) 7.2 % Normal [facility] Comment on above: Order Comment: Speci men Type: BLOOD SPECIMENOrdering Facility: [facility] Address: [address] [place] [address] Performed By: #### 5 7021-8 ####[facility] LABCLIA [id number] [place] [address] [place] Neutrophils (Bld) [#/Vol] 2.35 10*3/uL Normal 1.45-7.50 [facility] Comment on above: Order Comment: Speci men Type: BLOOD SPECIMENOrdering Facility: [facility] Address: [address] [place] [address] Performed By: #### 5 7021-8 ####[facility] LABCLIA [id number] [place] [address] [place] Neutrophils/100 WBC (Bld) 37.0 % Normal [facility] Comment on above: Order Comment: Speci men Type: BLOOD SPECIMENOrdering Facility: [facility] Address: [address] [place] [address] Performed By: #### 5 7021-8 ####[facility] LABCLIA [id number] [place] [address] [place] Nucleated RBC (Bld) [#/Vol] 10*3/uL Normal <0.01 [facility] Comment on above: Order Comment: Speci men Type: BLOOD SPECIMENOrdering Facility: [facility] Address: [address] [place] [address] Performed By: #### 5 7021-8 ####[facility] LABCLIA [id number] [place] [address] [place] Nucleated RBC/100 WBC (Bld) [Ratio] 0.0 /100 WBC Normal [facility] Comment on above: Order Comment: Speci men Type: BLOOD SPECIMENOrdering Facility: [facility] Address: [address] [place] [address] Performed By: #### 5 7021-8 ####[facility] LABCLIA [id number] [address] [address] [place] Platelet mean volume (Bld) [Entitic vol] 10.3 fL Normal 9.0-12.7 [facility] Comment on above: Order Comment: Speci men Type: BLOOD SPECIMENOrdering Facility: [facility] Address: [address] [place] [address] Performed By: #### 5 7021-8 ####[facility] LABCLIA [id number] [place] [address] [place] Platelets (Bld) [#/Vol] 273 10*3/uL Normal 150-400 [facility] Comment on above: Order Comment: Speci men Type: BLOOD SPECIMENOrdering Facility: [facility] Address: [address] [place] [address] Performed By: #### 5 7021-8 ####[facility]IA [id number] [place] [address] [place] RBC (Bld) [#/Vol] 4.31 10*6/uL Normal 3.90-5.20 [facility] Comment on above: Order Comment: Speci men Type: BLOOD SPECIMENOrdering Facility: [facility] Address: [address] [place] [address] Performed By: #### 5 7021-8 ####[facility]IA [id number] [place] [address] [place] WBC (Bld) [#/Vol] 6.36 10*3/uL Normal 3.70-11.00 [facility] Comment on above: Order Comment: Speci men Type: BLOOD SPECIMENOrdering Facility: [facility] Address: [address] [place] [address] Performed By: #### 5 7021-8 ####[facility] [id number] [place] [address] [place] CONSULT PROGon 01-03-2025 CONSULT PROG Normal [facility] CRP SerPl-mCncon 01-03-2025 CRP [Mass/Vol] 2.5 mg/dL High <0.9 [facility] Comment on above: Order Comment: Speci men Type: BLOOD SPECIMENOrdering Facility: [facility] Address: [address] [place] [address] Performed By: #### 1 988-5, 03534-1 ####[facility] LABCLIA [id number] [place] [address] [place] Bacteria Bld Culton 01-02-20 25 Bacteria identified Cx Nom (Bld) CULTURE, BLOOD: No growth 5 days Normal [facility] Comment on above: Performed By: #### 6 00-7 ####[facility] LABCLIA [id number] [place] [address] [place] Bacteria identified Cx Nom (Bld) Normal [facility] Comment on above: Performed By: #### I DBCGP, 600-7 ####[facility] LABCLIA [id number] [place] [address] [place] Bacteria Wnd Culton 01-02-20 25 Bacteria identified Cx Nom (Wound) Abnormal [facility] Comment on above: Performed By: #### 6 462-6 ####[facility] LABCLIA [id number] [place] [address] [place] CONSULTon 01-02-2025 CONSULT Normal [facility] CONSULT PROGon 01-02-2025 CONSULT PROG Normal [facility] CT CHEST W IVCONon CT CHEST W IVCON Invalid Interpretation Code [facility] ED NOTEon 01-02-2025 ED NOTE HNO ID: [id number] Author: KILLIAN RUIZ,, RN Service: Nursing Author Type: Registered Nurse Type: ED Notes Filed: 01/02/2025 12:42 Note Text: Infectious disease consult MD at bedside. Obtaining culture from L breast. Normal [facility] ED NOTE Normal [facility] ED NOTE Normal [facility] ED NOTE Normal [facility] GRAM POSITIVE ORGANISM ID BY MICROARRAY (VERIGENE)on 01-02-2025 GRAM POSITIVE ORGANISM ID BY MICROARRAY (VERIGENE) Abnormal [facility] Comment on above: Performed By: #### I DBCGP, 600-7 ####[facility] LABCLIA [id number] [place] [address] [place] HISTORY PHYSICALon HISTORY PHYSICAL Normal [facility] STAPHYLOCOCCUS AUREUS AND MR SA SCREEN, PCR, NASALon 01-02-2025 S. aureus and MRSA panel LAURA+probe (Nose) Not detected Normal Not Detected [facility] Comment on above: Order Comment: Speci men Type: SWABOrdering Facility: [facility] Address: [address] [place] [address] Performed By: #### S APCR ####[facility] LABCLIA [id number] [place] [address] [place] CBC W Auto Differential pane l (Bld)on 01-01-2025 Basophils (Bld) [#/Vol] 0.05 10*3/uL Normal <0.11 [facility] Comment on above: Order Comment: Speci men Type: BLOOD SPECIMENOrdering Facility: [facility] Address: [address] [place] [address] Performed By: #### 5 7021-8, 4537-7 ####[facility] LABCLIA [id number] [place] [address] [place] Basophils/100 WBC (Bld) 0.6 % Normal [facility] Comment on above: Order Comment: Speci men Type: BLOOD SPECIMENOrdering Facility: [facility] Address: [address] [place] [address] Performed By: #### 5 7021-8, 4537-7 ####[facility] LABCLIA [id number] [place] [address] [place] Differential cell count method Nom (Bld) Auto Normal [facility] Comment on above: Order Comment: Speci men Type: BLOOD SPECIMENOrdering Facility: [facility] Address: [address] [place] [address] Performed By: #### 5 7021-8, 7-7 ####[facility] LABCLIA [id number] [place] [address] [place] Eosinophils (Bld) [#/Vol] 0.14 10*3/uL Normal <0.46 [facility] Comment on above: Order Comment: Speci men Type: BLOOD SPECIMENOrdering Facility: [facility] Address: [address] [place] [address] Performed By: #### 5 7021-8, 7-7 ####[facility] LABCLIA [id number] [place] [address] [place] Eosinophils/100 WBC (Bld) 1.7 % Normal [facility] Comment on above: Order Comment: Speci men Type: BLOOD SPECIMENOrdering Facility: [facility] Address: [address] [place] [address] Performed By: #### 5 7021-8, 4536-7 ####[facility] LABCLIA [id number] [place] [address] [place] Erythrocyte distribution width (RBC) [Ratio] 13.6 % Normal 11.5-15.0 [facility] Comment on above: Order Comment: Speci men Type: BLOOD SPECIMENOrdering Facility: [facility] Address: [address] [place] [address] Performed By: #### 5 7021-8, 4536-7 ####[facility] LABCLIA [id number] [place] [address] [place] Hematocrit (Bld) [Volume fraction] 38.0 % Normal 36.0-46.0 [facility] Comment on above: Order Comment: Speci men Type: BLOOD SPECIMENOrdering Facility: [facility] Address: [address] [place] [address] Performed By: #### 5 7021-8, 4537-7 ####[facility] LABCLIA [id number] [place] [address] [place] Hemoglobin (Bld) [Mass/Vol] 13.1 g/dL Normal 11.5-15.5 [facility] Comment on above: Order Comment: Speci men Type: BLOOD SPECIMENOrdering Facility: [facility] Address: [address] [place] [address] Performed By: #### 5 7021-8, 453-7 ####[facility] LABCLIA [id number] [place] [address] [place] Immature granulocytes (Bld) [#/Vol] 0.07 10*3/uL Normal <0.10 [facility] Comment on above: Order Comment: Speci men Type: BLOOD SPECIMENOrdering Facility: [facility] Address: [address] [place] [address] Performed By: #### 5 7021-8, 4536-7 ####[facility] LABCLIA [id number] [place] [address] [place] Immature granulocytes/100 WBC (Bld) 0.8 % Normal [facility] Comment on above: Order Comment: Speci men Type: BLOOD SPECIMENOrdering Facility: [facility] Address: [address] [place] [address] Performed By: #### 5 7021-8, 4536-7 ####[facility] LABCLIA [id number] [place] [address] [place] Lymphocytes (Bld) [#/Vol] 3.25 10*3/uL Normal 1.00-4.00 [facility] Comment on above: Order Comment: Speci men Type: BLOOD SPECIMENOrdering Facility: [facility] Address: [address] [place] [address] Performed By: #### 5 7021-8, 4536-7 ####[facility]IA [id number] [place] [address] [place] Lymphocytes/100 WBC (Bld) 38.3 % Normal [facility] Comment on above: Order Comment: Speci men Type: BLOOD SPECIMENOrdering Facility: [facility] Address: [address] [place] [address] Performed By: #### 5 7021-8, 7 ####[facility] LABIA [id number] [place] [address] [place] MCH (RBC) [Entitic mass] 29.6 pg Normal 26.0-34.0 [facility] Comment on above: Order Comment: Speci men Type: BLOOD SPECIMENOrdering Facility: [facility] Address: [address] [place] [address] Performed By: #### 5 7021-8, 7 ####[facility]IA [id number] [place] [address] [place] MCHC (RBC) [Mass/Vol] 34.5 g/dL Normal 30.5-36.0 [facility] Comment on above: Order Comment: Speci men Type: BLOOD SPECIMENOrdering Facility: [facility] Address: [address] [place] [address] Performed By: #### 5 7021-8, 7 ####[facility] [id number] [place] [address] [place] MCV (RBC) [Entitic vol] 86.0 fL Normal 80.0-100.0 [facility] Comment on above: Order Comment: Speci men Type: BLOOD SPECIMENOrdering Facility: [facility] Address: [address] [place] [address] Performed By: #### 5 7021-8, 4537-05 ####[facility] LABCLIA [id number] [place] [address] [place] Monocytes (Bld) [#/Vol] 0.55 10*3/uL Normal <0.87 [facility] Comment on above: Order Comment: Speci men Type: BLOOD SPECIMENOrdering Facility: [facility] Address: [address] [place] [address] Performed By: #### 5 7021-8, 4537-05 ####[facility] LABCLIA [id number] [place] [address] [place] Monocytes/100 WBC (Bld) 6.5 % Normal [facility] Comment on above: Order Comment: Speci men Type: BLOOD SPECIMENOrdering Facility: [facility] Address: [address] [place] [address] Performed By: #### 5 7021-8, 4537-05 ####[facility] [id number] [place] [address] [place] Neutrophils (Bld) [#/Vol] 4.42 10*3/uL Normal 1.45-7.50 [facility] Comment on above: Order Comment: Speci men Type: BLOOD SPECIMENOrdering Facility: [facility] Address: [address] [place] [address] Performed By: #### 5 7021-8, 4537-05 ####[facility] LABCLIA [id number] [place] [address] [place] Neutrophils/100 WBC (Bld) 52.1 % Normal [facility] Comment on above: Order Comment: Speci men Type: BLOOD SPECIMENOrdering Facility: [facility] Address: [address] [place] [address] Performed By: #### 5 7021-8, 4536-7 ####[facility] LABCLIA [id number] [place] [id number] [address] [place] Nucleated RBC (Bld) [#/Vol] 10*3/uL Normal <0.01 [facility] Comment on above: Order Comment: Speci men Type: BLOOD SPECIMENOrdering Facility: [facility] Address: [address] [place] [address] Performed By: #### 5 7021-8, 4536-7 ####[facility] LABCLIA [id number] [place] [address] [place] Nucleated RBC/100 WBC (Bld) [Ratio] 0.0 /100 WBC Normal [facility] Comment on above: Order Comment: Speci men Type: BLOOD SPECIMENOrdering Facility: [facility] Address: [address] [place] [address] Performed By: #### 5 7021-8, 4536-7 ####[facility] LABCLIA [id number] [place] [address] [place] Platelet mean volume (Bld) [Entitic vol] 10.0 fL Normal 9.0-12.7 [facility] Comment on above: Order Comment: Speci men Type: BLOOD SPECIMENOrdering Facility: [facility] Address: [address] [place] [address] Performed By: #### 5 7021-8, 4536-7 ####[facility] [id number] [place] [address] [place] Platelets (Bld) [#/Vol] 252 10*3/uL Normal 150-400 [facility] Comment on above: Order Comment: Speci men Type: BLOOD SPECIMENOrdering Facility: [facility] Address: [address] [place] [address] Performed By: #### 5 7021-8, 4536-7 ####[facility] LABCLIA [id number] [facility] [place] [address] [place] RBC (Bld) [#/Vol] 4.42 10*6/uL Normal 3.90-5.20 [facility] Comment on above: Order Comment: Speci men Type: BLOOD SPECIMENOrdering Facility: [facility] Address: [address] [place] [address] Performed By: #### 5 7021-8, 4537-7 ####[facility] LABCLIA [id number] [place] [address] [place] WBC (Bld) [#/Vol] 8.48 10*3/uL Normal 3.70-11.00 [facility] Comment on above: Order Comment: Speci men Type: BLOOD SPECIMENOrdering Facility: [facility] Address: [address] [place] [address] Performed By: #### 5 7021-8, 4537-7 ####[facility] LABCLIA [id number] [place] [address] [place] CONSULT PROGon 01-01-2025 CONSULT PROG Normal [facility] CRP SerPl-mCncon 01-01-2025 CRP [Mass/Vol] 5.9 mg/dL High <0.9 [facility] Comment on above: Order Comment: Speci men Type: BLOOD SPECIMENOrdering Facility: [facility] Address: [address] [place] [address] Performed By: #### 2 4323-8, 1988-03, , 52164-0 ####[facility] LABCLIA [id number] [place] [address] [place] Comprehensive metabolic 2000 panelon 01-01-2025 Albumin [Mass/Vol] 4.3 g/dL Normal 3.9-4.[address] [facility] Comment on above: Order Comment: Speci men Type: BLOOD SPECIMENOrdering Facility: [facility] Address: [address] [place] [address] Performed By: #### 2 4323-8, 1988-03, , 95948-3 ####[facility] LABCLIA [id number] [place] [address] [place] ALP [Catalytic activity/Vol] 129 U/L High 34-123 [facility] Comment on above: Order Comment: Speci men Type: BLOOD SPECIMENOrdering Facility: [facility] Address: [address] [place] [address] Performed By: #### 2 4323-8, 1988-03, , ####[facility] LABCLIA [id number] [place] [address] [place] ALT [Catalytic activity/Vol] 28 U/L Normal 7-38 [facility] Comment on above: Order Comment: Speci men Type: BLOOD SPECIMENOrdering Facility: [facility] Address: [address] [place] [address] Performed By: #### 2 4323-8, 1988-03, , ####[facility] LABCLIA [id number] [place] [address] [place] Anion gap [Moles/Vol] 13 mmol/L Normal 8-15 [facility] Comment on above: Order Comment: Speci men Type: BLOOD SPECIMENOrdering Facility: [facility] Address: [address] [place] [address] Performed By: #### 2 4323-8, 1988-03, , ####[facility] LABCLIA [id number] [place] [address] [place] AST [Catalytic activity/Vol] 21 U/L Normal 13-35 [facility] Comment on above: Order Comment: Speci men Type: BLOOD SPECIMENOrdering Facility: [facility] Address: [address] [place] [address] Performed By: #### 2 4323-8, 1988-03, , ####[facility] LABCLIA [id number] [place] [id number] [place] Bilirubin [Mass/Vol] 0.3 mg/dL Normal 0.2-1.3 [facility] Comment on above: Order Comment: Speci men Type: BLOOD SPECIMENOrdering Facility: [facility] Address: [address] [place] [address] Performed By: #### 2 4323-8, 1988-03, , ####[facility] LABCLIA [id number] [place] [address] [place] Calcium [Mass/Vol] 9.4 mg/dL Normal 8.5-10.[address] [facility] Comment on above: Order Comment: Speci men Type: BLOOD SPECIMENOrdering Facility: [facility] Address: [address] [place] [address] Performed By: #### 2 4323-8, 1988-03, , ####[facility] LABCLIA [id number] [place] [address] [place] Chloride [Moles/Vol] 105 mmol/L Normal 98-107 [facility] Comment on above: Order Comment: Speci men Type: BLOOD SPECIMENOrdering Facility: [facility] Address: [address] [place] [address] Performed By: #### 2 4323-8, 1988-03, , ####[facility] LABCLIA [id number] [place] [id number] [place] CO2 [Moles/Vol] 22 mmol/L Normal 22-30 [facility] Comment on above: Order Comment: Speci men Type: BLOOD SPECIMENOrdering Facility: [facility] Address: [address] [place] [address] Performed By: #### 2 4323-8, 1988-03, , ####[facility] LABCLIA [id number] [facility] [place] [id number] [place] Creatinine [Mass/Vol] 0.82 mg/dL Normal 0.58-0.96 [facility] Comment on above: Order Comment: Mookie roberts Type: BLOOD SPECIMENOrdering Facility: [facility] Address: [address] [place] [id number] Performed By: #### 2 4323-8, 1988-03, , ####[facility] LABCLIA [id number] [place] [phone] [place] [facility] Creatinine and Glomerular filtration rate.predicted panel (S/P/Bld) 97 mL/min/1.73m??? Normal >=60 [facility] Comment on above: Order Comment: Mookie roberts Type: BLOOD SPECIMENOrdering Facility: [facility] Address: [address] [place] [address] Result Comment: Anne-Marie mated Glomerular Filtration Rate (eGFR) is calculated using the 2020 CKD-EPI creatinine equation. This equation utilizes serum creatinine, sex, and age as parameters. The creatinine assay has traceable calibration to isotope dilution-mass spectrometry. Refer to KDIGO guidelines for clinical interpretation. In patients with unstable renal function, e.g. those with acute kidney injury, the eGFR may not accurately reflect actual GFR. Performed By: #### 2 4323-8, 1988-03, , ####[facility] LABCLIA [id number] [place] [id number] [place] Glucose [Mass/Vol] 94 mg/dL Normal 74-[address] [facility] Comment on above: Order Comment: Mookie roberts Type: BLOOD SPECIMENOrdering Facility: [facility] Address: [address] [place] [address] Result Comment: The [place] Diabetes Association (ADA) provides guidance for cutoff values for fasting glucose and random glucose. The ADA defines fasting as no caloric intake for at least 8 hours. Fasting plasma glucose results between 100 to 125 mg/dL indicate increased risk for diabetes (prediabetes).Fasting plasma glucose results greater than or equal to 126 mg/dL meet the criteria for diagnosis of diabetes. In the absence of unequivocal hyperglycemia, results should be confirmed by repeat testing. In a patient with classic symptoms of hyperglycemia or hyperglycemic crisis, random plasma glucose results greater than or equal to 200 mg/dL meet the criteria for diagnosis of diabetes.Reference: Standards of Medical Care in Diabetes 2016, [place] [employer]. Diabetes Care. 2016.39(Suppl 1). Performed By: #### 2 4328, 1988-03, , ####[facility] LABCLIA [id number] [address] [address] [place] Potassium [Moles/Vol] 3.8 mmol/L Normal 3.7-5.1 [facility] Comment on above: Order Comment: Speci men Type: BLOOD SPECIMENOrdering Facility: [facility] Address: [address] [place] [address] Performed By: #### 2 4328, , ####[facility] LABIA [id number] [place] [id number] [place] Protein [Mass/Vol] 6.9 g/dL Normal 6.3-8.[address] [facility] Comment on above: Order Comment: Speci men Type: BLOOD SPECIMENOrdering Facility: [facility] Address: [address] [place] [address] Performed By: #### 2 4328, , ####[facility] LABIA [id number] [place] [phone] [place] Sodium [Moles/Vol] 140 mmol/L Normal 136-[address] [facility] Comment on above: Order Comment: Speci men Type: BLOOD SPECIMENOrdering Facility: [facility] Address: [address] [place] [address] Performed By: #### 2 4328, , ####[facility] LABCLIA [id number] [address] [address] [place] Urea nitrogen [Mass/Vol] 11 mg/dL Normal 7-21 [facility] Comment on above: Order Comment: Speci men Type: BLOOD SPECIMENOrdering Facility: [facility] Address: [address] [place], [place] [address] Performed By: #### 2 4323-8, 1988-03, , ####[facility] LABCLIA [id number] [place] [phone] [place] ED NOTEon 01-01-2025 ED NOTE HNO ID: [id number] Author: KIM ESCOBAR CT Service: Emergency Medicine Author Type: Clinical Benefits Analyst Type: ED Notes Filed: 01/01/2025 21:49 Note Text: Taking pt vs allergy band placed on pt wrist Normal [facility] ED PROV NOTEon 01-01-2025 ED PROV NOTE Normal [facility] ED Triage Noteon 01-01-2025 ED Triage Note Normal [facility] ESR Westergren method (Bld) [Velocity]on 01-01-2025 ESR (Bld) [Velocity] 25 mm/h High 0-20 [facility] Comment on above: Order Comment: Speci men Type: BLOOD SPECIMENOrdering Facility: [facility] Address: [address] [place] [address] Performed By: #### 5 7021-8, 4537-7 ####[facility] LABCLIA [id number] [place] [id number] [place] Magnesium SerPl-mCncon 01-01 Magnesium [Mass/Vol] 2.3 mg/dL Normal 1.7-2.3 [facility] Comment on above: Order Comment: Speci men Type: BLOOD SPECIMENOrdering Facility: [facility] Address: [address] [place] [address] Performed By: #### 2 4323-8, 1988-03, , 01951-0 ####[facility] LABCLIA [id number] [place] [id number] [place] Procalcitonin SerPl-mCncon 0 01-01-2025 Procalcitonin [Mass/Vol] ng/mL Normal <0.09 [facility] Comment on above: Order Comment: Speci men Type: BLOOD SPECIMENOrdering Facility: [facility] Address: [address] [place] [address] Result Comment: For a guided interpretation of test results, please visit the Change in Procalcitonin Calculator, [email or web address]. Performed By: #### 2 4323-8, 1987-5, 38025-8, 47013-8 ####[facility] LABCLIA [id number] [place] [address] [place] SEPSIS LACTATE W/ REFLEX (IN ITIAL)on 01-01-2025 Lactate [Moles/Vol] 1.0 mmol/L Normal <=2.0 [facility] Comment on above: Order Comment: Speci men Type: BLOOD SPECIMENOrdering Facility: [facility] Address: [address] [place] [address] Performed By: #### S LACTR ####[facility] LABCLIA [id number] [place] [address] [place] CBC W Auto Differential pane l (Bld)on 12-31-2024 Basophils (Bld) [#/Vol] 0.03 10*3/uL Normal <0.11 [facility] Comment on above: Order Comment: Speci men Type: BLOOD SPECIMENOrdering Facility: [facility] Address: [address] [place] [address] Performed By: #### 5 7021-8 ####[facility] LWCLIA [id number] [place] [address] [place] Basophils/100 WBC (Bld) 0.2 % Normal [facility] Comment on above: Order Comment: Speci men Type: BLOOD SPECIMENOrdering Facility: [facility] Address: [address] [place] [address] Performed By: #### 5 7021-8 ####[facility] LWCLIA [id number] [place] [id number] [place] [facility] Differential cell count method Nom (Bld) Auto Normal [facility] Comment on above: Order Comment: Speci men Type: BLOOD SPECIMENOrdering Facility: [facility] Address: [address] [place] [address] Performed By: #### 5 7021-8 ####[facility] LWCLIA [id number] [place] [address] [place] Eosinophils (Bld) [#/Vol] 0.07 10*3/uL Normal <0.46 [facility] Comment on above: Order Comment: Speci men Type: BLOOD SPECIMENOrdering Facility: [facility] Address: [address] [place] [address] Performed By: #### 5 7021-8 ####[facility] LWCLIA [id number] [address] Eosinophils/100 WBC (Bld) 0.5 % Normal [facility] Comment on above: Order Comment: Speci men Type: BLOOD SPECIMENOrdering Facility: [facility] Address: [address] [place] [address] Performed By: #### 5 7021-8 ####[facility] LWCLIA [id number] [address] Erythrocyte distribution width (RBC) [Ratio] 13.8 % Normal 11.5-15.0 [facility] Comment on above: Order Comment: Speci men Type: BLOOD SPECIMENOrdering Facility: [facility] Address: [address] [place] [address] Performed By: #### 5 7021-8 ####[facility] LWCLIA [id number] [place] [id number] [place] Hematocrit (Bld) [Volume fraction] 39.6 % Normal 36.0-46.0 [facility] Comment on above: Order Comment: Speci men Type: BLOOD SPECIMENOrdering Facility: [facility] Address: [address] [place] [address] Performed By: #### 5 7021-8 ####[facility] LWCLIA [id number] [place] [phone] [place] Hemoglobin (Bld) [Mass/Vol] 13.3 g/dL Normal 11.5-15.5 [facility] Comment on above: Order Comment: Speci men Type: BLOOD SPECIMENOrdering Facility: [facility] Address: [address] [place] [address] Performed By: #### 5 7021-8 ####[facility] LWCLIA [id number] [place] [address] [place] Immature granulocytes (Bld) [#/Vol] 0.09 10*3/uL Normal <0.10 [facility] Comment on above: Order Comment: Speci men Type: BLOOD SPECIMENOrdering Facility: [facility] Address: [address] [place] [address] Performed By: #### 5 7021-8 ####[facility] LWCLIA [id number] [place] [id number] [place] Immature granulocytes/100 WBC (Bld) 0.7 % Normal [facility] Comment on above: Order Comment: Speci men Type: BLOOD SPECIMENOrdering Facility: [facility] Address: [address] [place] [address] Performed By: #### 5 7021-8 ####[facility] LWCLIA [id number] [place] [id number] [place] Lymphocytes (Bld) [#/Vol] 3.17 10*3/uL Normal 1.00-4.00 [facility] Comment on above: Order Comment: Speci men Type: BLOOD SPECIMENOrdering Facility: [facility] Address: [address] [place] [address] Performed By: #### 5 7021-8 ####[facility] LWIA [id number] [address] [place] Lymphocytes/100 WBC (Bld) 24.7 % Normal [facility] Comment on above: Order Comment: Speci men Type: BLOOD SPECIMENOrdering Facility: [facility] Address: [address] [place] [address] Performed By: #### 5 7021-8 ####[facility] LWCLIA [id number] [place] [address] [facility] MCH (RBC) [Entitic mass] 29.8 pg Normal 26.0-34.0 [facility] Comment on above: Order Comment: Speci men Type: BLOOD SPECIMENOrdering Facility: [facility] Address: [address] [place] [address] Performed By: #### 5 7021-8 ####[facility] LWCLIA [id number] [address] [facility] MCHC (RBC) [Mass/Vol] 33.6 g/dL Normal 30.5-36.0 [facility] Comment on above: Order Comment: Speci men Type: BLOOD SPECIMENOrdering Facility: [facility] Address: [address] [place] [address] Performed By: #### 5 7021-8 ####[facility] LWCLIA [id number] [place] [address] [place] MCV (RBC) [Entitic vol] 88.6 fL Normal 80.0-100.0 [facility] Comment on above: Order Comment: Speci men Type: BLOOD SPECIMENOrdering Facility: [facility] Address: [address] [place], [place] [address] Performed By: #### 5 7021-8 ####[facility] LWCLIA [id number] [place] [id number] [facility] Monocytes (Bld) [#/Vol] 0.76 10*3/uL Normal <0.87 [facility] Comment on above: Order Comment: Speci men Type: BLOOD SPECIMENOrdering Facility: [facility] Address: [address] [place] [address] Performed By: #### 5 7021-8 ####[facility] LWCLIA [id number] [place] [id number] [place] Monocytes/100 WBC (Bld) 5.9 % Normal [facility] Comment on above: Order Comment: Speci men Type: BLOOD SPECIMENOrdering Facility: [facility] Address: [address] [place] [address] Performed By: #### 5 7021-8 ####[facility] LWCLIA [id number] [place] [address] [place] Neutrophils (Bld) [#/Vol] 8.72 10*3/uL High 1.45-7.50 [facility] Comment on above: Order Comment: Speci men Type: BLOOD SPECIMENOrdering Facility: [facility] Address: [address] [place] [address] Performed By: #### 5 7021-8 ####[facility] LWCLIA [id number] [place] [id number] [place] Neutrophils/100 WBC (Bld) 68.0 % Normal [facility] Comment on above: Order Comment: Speci men Type: BLOOD SPECIMENOrdering Facility: [facility] Address: [address] [place] [address] Performed By: #### 5 7021-8 ####[facility] LWCLIA [id number] [place] [id number] [place] Nucleated RBC (Bld) [#/Vol] 10*3/uL Normal <0.01 [facility] Comment on above: Order Comment: Speci men Type: BLOOD SPECIMENOrdering Facility: [facility] Address: [address] [place] [address] Performed By: #### 5 7021-8 ####[facility] LWCLIA [id number] [place] [phone] [place] Nucleated RBC/100 WBC (Bld) [Ratio] 0.0 /100 WBC Normal [facility] Comment on above: Order Comment: Speci men Type: BLOOD SPECIMENOrdering Facility: [facility] Address: [address] [place] [address] Performed By: #### 5 7021-8 ####[facility] LWCLIA [id number] [place] [id number] [place] Platelet mean volume (Bld) [Entitic vol] 9.7 fL Normal 9.0-12.7 [facility] Comment on above: Order Comment: Speci men Type: BLOOD SPECIMENOrdering Facility: [facility] Address: [address] [place] [address] Performed By: #### 5 7021-8 ####[facility] LWCLIA [id number] [place] [address] [place] Platelets (Bld) [#/Vol] 259 10*3/uL Normal 150-400 [facility] Comment on above: Order Comment: Speci men Type: BLOOD SPECIMENOrdering Facility: [facility] Address: [address] [place] [address] Performed By: #### 5 7021-8 ####[facility] LWCLIA [id number] [place] [id number] [place] RBC (Bld) [#/Vol] 4.47 10*6/uL Normal 3.90-5.20 [facility] Comment on above: Order Comment: Speci men Type: BLOOD SPECIMENOrdering Facility: [facility] Address: [address] [place] [address] Performed By: #### 5 7021-8 ####[facility] LWCLIA [id number] [place] [id number] [place] WBC (Bld) [#/Vol] 12.84 10*3/uL High 3.70-11.00 [facility] Comment on above: Order Comment: Speci men Type: BLOOD SPECIMENOrdering Facility: [facility] Address: [address] [id number] Performed By: #### 5 7021-8 ####[facility] LWCLIA [id number] [place] [address] [place] [facility] Comprehensive metabolic 2000 panelon 12-31-2024 Albumin [Mass/Vol] 4.4 g/dL Normal 3.9-4.[address] [facility] Comment on above: Order Comment: Speci men Type: BLOOD SPECIMENOrdering Facility: [facility] Address: [address] [place] [address] Performed By: #### 2 4323-8, ####[facility] LWCLIA [id number] [place] [address] [place] ALP [Catalytic activity/Vol] 145 U/L High 34-123 [facility] Comment on above: Order Comment: Speci men Type: BLOOD SPECIMENOrdering Facility: [facility] Address: [address] [place] [address] Performed By: #### 2 4323-8, ####[facility] LWCLIA [id number] [place] [phone] [place] ALT [Catalytic activity/Vol] 27 U/L Normal 7-38 [facility] Comment on above: Order Comment: Speci men Type: BLOOD SPECIMENOrdering Facility: [facility] Address: [address] [place] [address] Performed By: #### 2 4323-8, ####[facility] LWCLIA [id number] [place] [address] [place] Anion gap [Moles/Vol] 13 mmol/L Normal 8-15 [facility] Comment on above: Order Comment: Speci men Type: BLOOD SPECIMENOrdering Facility: [facility] Address: [address] [place], [place] [address] Performed By: #### 2 4323-8, ####[facility] LWCLIA [id number] [place] [address] [place] AST [Catalytic activity/Vol] 18 U/L Normal 13-35 [facility] Comment on above: Order Comment: Speci men Type: BLOOD SPECIMENOrdering Facility: [facility] Address: [address] [place] [address] Performed By: #### 2 4323-8, ####[facility] LWCLIA [id number] [place] [id number] [place] Bilirubin [Mass/Vol] 0.5 mg/dL Normal 0.2-1.3 [facility] Comment on above: Order Comment: Speci men Type: BLOOD SPECIMENOrdering Facility: [facility] Address: [address] [place] [address] Performed By: #### 2 4323-8, ####[facility] LWCLIA [id number] [place] [phone] [place] Calcium [Mass/Vol] 9.2 mg/dL Normal 8.5-10.[address] [facility] Comment on above: Order Comment: Speci men Type: BLOOD SPECIMENOrdering Facility: [facility] Address: [address] [place] [address] Performed By: #### 2 4323-8, ####[facility] LWCLIA [id number] [place] [phone] [place] Chloride [Moles/Vol] 99 mmol/L Normal 98-107 [facility] Comment on above: Order Comment: Speci men Type: BLOOD SPECIMENOrdering Facility: [facility] Address: [address] [place] [address] Performed By: #### 2 4323-8, ####[facility] LWCLIA [id number] [place] [phone] [place] CO2 [Moles/Vol] 26 mmol/L Normal 22-30 [facility] Comment on above: Order Comment: Speci men Type: BLOOD SPECIMENOrdering Facility: [facility] Address: [address] [place] [address] Performed By: #### 2 4323-8, ####[facility] LWCLIA [id number] [place] [id number] [place] [facility] Creatinine [Mass/Vol] 0.86 mg/dL Normal 0.58-0.96 [facility] Comment on above: Order Comment: Speci men Type: BLOOD SPECIMENOrdering Facility: [facility] Address: [address] [place] [address] Performed By: #### 2 4323-8, ####[facility] LWCLIA [id number] [address] Creatinine and Glomerular filtration rate.predicted panel (S/P/Bld) 92 mL/min/1.73m??? Normal >=60 [facility] Comment on above: Order Comment: Speci men Type: BLOOD SPECIMENOrdering Facility: [facility] Address: [address] [place] [address] Result Comment: Anne-Marie mated Glomerular Filtration Rate (eGFR) is calculated using the 2020 CKD-EPI creatinine equation. This equation utilizes serum creatinine, sex, and age as parameters. The creatinine assay has traceable calibration to isotope dilution-mass spectrometry. Refer to KDIGO guidelines for clinical interpretation. In patients with unstable renal function, e.g. those with acute kidney injury, the eGFR may not accurately reflect actual GFR. Performed By: #### 2 4323-8, ####[facility] LWCLIA [id number] [place] [id number] [place] Glucose [Mass/Vol] 116 mg/dL High 74-[address] [facility] Comment on above: Order Comment: Speci men Type: BLOOD SPECIMENOrdering Facility: [facility] Address: [address] [place] [address] Result Comment: The [place] Diabetes Association (ADA) provides guidance for cutoff values for fasting glucose and random glucose. The ADA defines fasting as no caloric intake for at least 8 hours. Fasting plasma glucose results between 100 to 125 mg/dL indicate increased risk for diabetes (prediabetes).Fasting plasma glucose results greater than or equal to 126 mg/dL meet the criteria for diagnosis of diabetes. In the absence of unequivocal hyperglycemia, results should be confirmed by repeat testing. In a patient with classic symptoms of hyperglycemia or hyperglycemic crisis, random plasma glucose results greater than or equal to 200 mg/dL meet the criteria for diagnosis of diabetes.Reference: Standards of Medical Care in Diabetes 2016, [place] [employer] Association. Diabetes Care. 2016.39(Suppl 1). Performed By: #### 2 432-8, ####[facility] LWCLIA [id number] [place] [address] [place] Potassium [Moles/Vol] 3.8 mmol/L Normal 3.7-5.1 [facility] Comment on above: Order Comment: Speci men Type: BLOOD SPECIMENOrdering Facility: [facility] Address: [address] [place] [address] Performed By: #### 2 43201-28, ####[facility] LWCLIA [id number] [place] [id number] [place] Protein [Mass/Vol] 7.2 g/dL Normal 6.3-8.[address] [facility] Comment on above: Order Comment: Speci men Type: BLOOD SPECIMENOrdering Facility: [facility] Address: [address] [place] [address] Performed By: #### 2 4323-06, ####[facility] LWCLIA [id number] [place] [address] [place] Sodium [Moles/Vol] 138 mmol/L Normal 136-[address] [facility] Comment on above: Order Comment: Speci men Type: BLOOD SPECIMENOrdering Facility: [facility] Address: [address] [place] [address] Performed By: #### 2 43238, ####[facility] LWCLIA [id number] [place] [address] [place] Urea nitrogen [Mass/Vol] 10 mg/dL Normal 7-21 [facility] Comment on above: Order Comment: Speci men Type: BLOOD SPECIMENOrdering Facility: [facility] Address: [address] [place] [address] Performed By: #### 2 4323-8, ####[facility] LWCLIA [id number] [place] [address] [facility] ED NOTEon 12-31-2024 ED NOTE HNO ID: [id number] Author: PILO FREGOSO, RN Service: Emergency Medicine Author Type: Registered Nurse Type: ED Notes Filed: 12/31/2024 19:45 Note Text: Ultrasound at bedside. Normal [facility] ED PROV NOTEon 12-31-2024 ED PROV NOTE Normal [facility] Magnesium SerPl-mCncon 12-31 Magnesium [Mass/Vol] 2.3 mg/dL Normal 1.7-2.3 [facility] Comment on above: Order Comment: Speci men Type: BLOOD SPECIMENOrdering Facility: [facility] Address: [address] [place] [address] Performed By: #### 2 4323-8, ####[facility] LWCLIA [id number] [place] [address] [facility] US CHEST WALL/SOFT TISSUEon 12-31-2024 US CHEST WALL/SOFT TISSUE Invalid Interpretation Code [facility] CNOVon 12-20-2024 CNOV Normal [facility] ED NOTEon 11-30-2024 ED NOTE Normal [facility] ED Triage Noteon 11-30-2024 ED Triage Note Normal [facility] CBC W Auto Differential pane l (Bld)on 11-09-2024 Basophils (Bld) [#/Vol] 0.03 10*3/uL Normal <0.11 [facility] Comment on above: Order Comment: Speci men Type: BLOOD SPECIMENOrdering Facility: [facility] Address: [address] [place] [address] Performed By: #### 5 7021-8 ####[facility] LWCLIA [id number] [place] [id number] [place] Basophils/100 WBC (Bld) 0.4 % Normal [facility] Comment on above: Order Comment: Speci men Type: BLOOD SPECIMENOrdering Facility: [facility] Address: [address] [place] [address] Performed By: #### 5 7021-8 ####[facility] LWCLIA [id number] [place] [id number] [place] Differential cell count method Nom (Bld) Auto Normal [facility] Comment on above: Order Comment: Speci men Type: BLOOD SPECIMENOrdering Facility: [facility] Address: [address] [place] [address] Performed By: #### 5 7021-8 ####[facility] LWCLIA [id number] [place] [address] [place] Eosinophils (Bld) [#/Vol] 0.11 10*3/uL Normal <0.46 [facility] Comment on above: Order Comment: Speci men Type: BLOOD SPECIMENOrdering Facility: [facility] Address: [address] [place] [address] Performed By: #### 5 7021-8 ####[facility] LWCLIA [id number] [place] [id number] [place] Eosinophils/100 WBC (Bld) 1.6 % Normal [facility] Comment on above: Order Comment: Speci men Type: BLOOD SPECIMENOrdering Facility: [facility] Address: [address] [place] [address] Performed By: #### 5 7021-8 ####[facility] LWCLIA [id number] [place] [id number] [place] Erythrocyte distribution width (RBC) [Ratio] 13.3 % Normal 11.5-15.0 [facility] Comment on above: Order Comment: Speci men Type: BLOOD SPECIMENOrdering Facility: [facility] Address: [address] [place] [address] Performed By: #### 5 7021-8 ####[facility] LWIA [id number] [place] [id number] [facility] Hematocrit (Bld) [Volume fraction] 42.5 % Normal 36.0-46.0 [facility] Comment on above: Order Comment: Speci men Type: BLOOD SPECIMENOrdering Facility: [facility] Address: [address] [place] [address] Performed By: #### 5 7021-8 ####[facility] LWIA [id number] [address] [place] Hemoglobin (Bld) [Mass/Vol] 14.1 g/dL Normal 11.5-15.5 [facility] Comment on above: Order Comment: Speci men Type: BLOOD SPECIMENOrdering Facility: [facility] Address: [address] [place] [address] Performed By: #### 5 7021-8 ####[facility] LWIA [id number] [address] Immature granulocytes (Bld) [#/Vol] 0.05 10*3/uL Normal <0.10 [facility] Comment on above: Order Comment: Speci men Type: BLOOD SPECIMENOrdering Facility: [facility] Address: [address] [place] [address] Performed By: #### 5 7021-8 ####[facility] LWCLIA [id number] [address] Immature granulocytes/100 WBC (Bld) 0.7 % Normal [facility] Comment on above: Order Comment: Speci men Type: BLOOD SPECIMENOrdering Facility: [facility] Address: [address] [place] [address] Performed By: #### 5 7021-8 ####[facility] LWCLIA [id number] [place] [id number] [place] [facility] Lymphocytes (Bld) [#/Vol] 2.61 10*3/uL Normal 1.00-4.00 [facility] Comment on above: Order Comment: Speci men Type: BLOOD SPECIMENOrdering Facility: [facility] Address: [address] [place] [address] Performed By: #### 5 7021-8 ####[facility] LWCLIA [id number] [place] [address] [place] Lymphocytes/100 WBC (Bld) 37.3 % Normal [facility] Comment on above: Order Comment: Speci men Type: BLOOD SPECIMENOrdering Facility: [facility] Address: [address] [place] [address] Performed By: #### 5 7021-8 ####[facility] LWCLIA [id number] [address] [place] MCH (RBC) [Entitic mass] 28.7 pg Normal 26.0-34.0 [facility] Comment on above: Order Comment: Speci men Type: BLOOD SPECIMENOrdering Facility: [facility] Address: [address] [place] [address] Performed By: #### 5 7021-8 ####[facility] LWCLIA [id number] [address] [place] MCHC (RBC) [Mass/Vol] 33.2 g/dL Normal 30.5-36.0 [facility] Comment on above: Order Comment: Speci men Type: BLOOD SPECIMENOrdering Facility: [facility] Address: [address] [place] [address] Performed By: #### 5 7021-8 ####[facility] LWIA [id number] [address] [facility] MCV (RBC) [Entitic vol] 86.6 fL Normal 80.0-100.0 [facility] Comment on above: Order Comment: Speci men Type: BLOOD SPECIMENOrdering Facility: [facility] Address: [address] [place] [address] Performed By: #### 5 7021-8 ####[facility] LWCLIA [id number] [place] [id number] [place] Monocytes (Bld) [#/Vol] 0.58 10*3/uL Normal <0.87 [facility] Comment on above: Order Comment: Speci men Type: BLOOD SPECIMENOrdering Facility: [facility] Address: [address] [place] [address] Performed By: #### 5 7021-8 ####[facility] LWIA [id number] [place] [address] [place] Monocytes/100 WBC (Bld) 8.3 % Normal [facility] Comment on above: Order Comment: Speci men Type: BLOOD SPECIMENOrdering Facility: [facility] Address: [address] [place] [address] Performed By: #### 5 7021-8 ####[facility] LWCLIA [id number] [place] [address] [place] Neutrophils (Bld) [#/Vol] 3.62 10*3/uL Normal 1.45-7.50 [facility] Comment on above: Order Comment: Speci men Type: BLOOD SPECIMENOrdering Facility: [facility] Address: [address] [place] [address] Performed By: #### 5 7021-8 ####[facility] LWCLIA [id number] [place] [id number] [place] Neutrophils/100 WBC (Bld) 51.7 % Normal [facility] Comment on above: Order Comment: Speci men Type: BLOOD SPECIMENOrdering Facility: [facility] Address: [address] [place] [address] Performed By: #### 5 7021-8 ####[facility] LWCLIA [id number] [place] [id number] [place] Nucleated RBC (Bld) [#/Vol] 10*3/uL Normal <0.01 [facility] Comment on above: Order Comment: Speci men Type: BLOOD SPECIMENOrdering Facility: [facility] Address: [address] [place] [address] Performed By: #### 5 7021-8 ####[facility] LWCLIA [id number] [place] [id number] [place] Nucleated RBC/100 WBC (Bld) [Ratio] 0.0 /100 WBC Normal [facility] Comment on above: Order Comment: Speci men Type: BLOOD SPECIMENOrdering Facility: [facility] Address: [address] [place] [address] Performed By: #### 5 7021-8 ####[facility] LWCLIA [id number] [place] [address] [place] Platelet mean volume (Bld) [Entitic vol] 9.9 fL Normal 9.0-12.7 [facility] Comment on above: Order Comment: Speci men Type: BLOOD SPECIMENOrdering Facility: [facility] Address: [address] [place] [address] Performed By: #### 5 7021-8 ####[facility] LWCLIA [id number] [place] [id number] [place] Platelets (Bld) [#/Vol] 257 10*3/uL Normal 150-400 [facility] Comment on above: Order Comment: Speci men Type: BLOOD SPECIMENOrdering Facility: [facility] Address: [address] [place] [address] Performed By: #### 5 7021-8 ####[facility] LWCLIA [id number] [place] [id number] [place] RBC (Bld) [#/Vol] 4.91 10*6/uL Normal 3.90-5.20 [facility] Comment on above: Order Comment: Speci men Type: BLOOD SPECIMENOrdering Facility: [facility] Address: [address] [place] [address] Performed By: #### 5 7021-8 ####[facility] LWCLIA [id number] [place] [id number] [facility] [place] WBC (Bld) [#/Vol] 7.00 10*3/uL Normal 3.70-11.00 [facility] Comment on above: Order Comment: Speci men Type: BLOOD SPECIMENOrdering Facility: [facility] Address: [address] [place] [address] Performed By: #### 5 7021-8 ####[facility] LWCLIA [id number] [place] [address] [place] [facility] Comprehensive metabolic 2000 panelon 11-09-2024 Albumin [Mass/Vol] 4.4 g/dL Normal 3.9-4.[address] [facility] Comment on above: Order Comment: Speci men Type: BLOOD SPECIMENOrdering Facility: [facility] Address: [address] [place] [address] Performed By: #### L [id number], , ####[facility] LWCLIA [id number] [place] [address] [place] ALP [Catalytic activity/Vol] 132 U/L High 34-123 [facility] Comment on above: Order Comment: Speci men Type: BLOOD SPECIMENOrdering Facility: [facility] Address: [address] [place] [address] Performed By: #### L [id number], , ####[facility] LWCLIA [id number] [place] [id number] [facility] ALT [Catalytic activity/Vol] 34 U/L Normal 7-38 [facility] Comment on above: Order Comment: Speci men Type: BLOOD SPECIMENOrdering Facility: [facility] Address: [address] [place] [address] Performed By: #### L [id number], , ####[facility] LWCLIA [id number] [place] [address] [place] Anion gap [Moles/Vol] 11 mmol/L Normal 8-15 [facility] Comment on above: Order Comment: Speci men Type: BLOOD SPECIMENOrdering Facility: [facility] Address: [address] [place] [address] Performed By: #### L [id number], , ####[facility] LWCLIA [id number] [place] [address] [place] AST [Catalytic activity/Vol] 21 U/L Normal 13-35 [facility] Comment on above: Order Comment: Speci men Type: BLOOD SPECIMENOrdering Facility: [facility] Address: [address] [place] [address] Performed By: #### L [id number], , ####[facility] LWCLIA [id number] [place] [address] [place] Bilirubin [Mass/Vol] 0.3 mg/dL Normal 0.2-1.3 [facility] Comment on above: Order Comment: Speci men Type: BLOOD SPECIMENOrdering Facility: [facility] Address: [address] [place] [address] Performed By: #### L [id number], , ####[facility] LWCLIA [id number] [place] [id number] [place] Calcium [Mass/Vol] 9.5 mg/dL Normal 8.5-10.[address] [facility] Comment on above: Order Comment: Speci men Type: BLOOD SPECIMENOrdering Facility: [facility] Address: [address] [place] [address] Performed By: #### L [id number], , ####[facility] LWCLIA [id number] [place] [id number] [place] Chloride [Moles/Vol] 106 mmol/L Normal 98-107 [facility] Comment on above: Order Comment: Speci men Type: BLOOD SPECIMENOrdering Facility: [facility] Address: [address] [place] [address] Performed By: #### L [id number], , ####[facility] LWCLIA [id number] [place] [id number] [place] CO2 [Moles/Vol] 22 mmol/L Normal 22-30 [facility] Comment on above: Order Comment: Speci men Type: BLOOD SPECIMENOrdering Facility: [facility] Address: [address] [place] [address] Performed By: #### L [id number], , ####[facility] LWCLIA [id number] [address] [place] [facility] Creatinine [Mass/Vol] 0.64 mg/dL Normal 0.58-0.96 [facility] Comment on above: Order Comment: Speci men Type: BLOOD SPECIMENOrdering Facility: [facility] Address: [address] [place] [address] Performed By: #### L [id number], , ####[facility] LWCLIA [id number] [address] Creatinine and Glomerular filtration rate.predicted panel (S/P/Bld) 120 mL/min/1.73m??? Normal >=60 [facility] Comment on above: Order Comment: Speci men Type: BLOOD SPECIMENOrdering Facility: [facility] Address: [address] [place] [address] Result Comment: Anne-Marie mated Glomerular Filtration Rate (eGFR) is calculated using the 2020 CKD-EPI creatinine equation. This equation utilizes serum creatinine, sex, and age as parameters. The creatinine assay has traceable calibration to isotope dilution-mass spectrometry. Refer to KDIGO guidelines for clinical interpretation. In patients with unstable renal function, e.g. those with acute kidney injury, the eGFR may not accurately reflect actual GFR. Performed By: #### L [id number], 07528-9, ####[facility] LWCLIA [id number] [place] [id number] [place] Glucose [Mass/Vol] 87 mg/dL Normal 74-[address] [facility] Comment on above: Order Comment: Speci men Type: BLOOD SPECIMENOrdering Facility: [facility] Address: [address] [place] [address] Result Comment: The [place] Diabetes [employer] (ADA) provides guidance for cutoff values for fasting glucose and random glucose. The ADA defines fasting as no caloric intake for at least 8 hours. Fasting plasma glucose results between 100 to 125 mg/dL indicate increased risk for diabetes (prediabetes).Fasting plasma glucose results greater than or equal to 126 mg/dL meet the criteria for diagnosis of diabetes. In the absence of unequivocal hyperglycemia, results should be confirmed by repeat testing. In a patient with classic symptoms of hyperglycemia or hyperglycemic crisis, random plasma glucose results greater than or equal to 200 mg/dL meet the criteria for diagnosis of diabetes.Reference: Standards of Medical Care in Diabetes 2016, [place] [employer]. Diabetes Care. 2016.39(Suppl 1). Performed By: #### L [id number], 51262-1, ####[facility] LWCLIA [id number] [place] [id number] [place] Potassium [Moles/Vol] 4.2 mmol/L Normal 3.7-5.1 [facility] Comment on above: Order Comment: Speci men Type: BLOOD SPECIMENOrdering Facility: [facility] Address: [address] [place] [address] Performed By: #### L [id number], 31517-5, ####[facility] LWCLIA [id number] [place] [id number] [place] Protein [Mass/Vol] 7.5 g/dL Normal 6.3-8.[address] [facility] Comment on above: Order Comment: Speci men Type: BLOOD SPECIMENOrdering Facility: [facility] Address: [address] [place] [address] Performed By: #### L [id number], , ####[facility] LWCLIA [id number] [place] [id number] [place] Sodium [Moles/Vol] 139 mmol/L Normal 136-[address] [facility] Comment on above: Order Comment: Speci men Type: BLOOD SPECIMENOrdering Facility: [facility] Address: [address] [place] [address] Performed By: #### L [id number], , ####[facility] LWCLIA [id number] [place] [address] [place] Urea nitrogen [Mass/Vol] 10 mg/dL Normal 7-21 [facility] Comment on above: Order Comment: Speci men Type: BLOOD SPECIMENOrdering Facility: [facility] Address: [address] [place] [address] Performed By: #### L [id number], , ####[facility] LWCLIA [id number] [place] [id number] [place] [id number] 11-09-2024 ECG01 Normal [facility] ED NOTEon 11-09-2024 ED NOTE Normal [facility] ED NOTE HNO ID: [id number] Author: RICHARD MATAMOROS RN Service: Nursing Author Type: Registered Nurse Type: ED Notes Filed: 11/09/2024 13:43 Note Text: Normal [facility] ED NOTE Normal [facility] ED PROV NOTEon 11-09-2024 ED PROV NOTE Normal [facility] HIGH SENSITIVITY TROPONIN T (INITIAL)on 11-09-2024 Troponin T.cardiac High sensitivity method [Mass/Vol] <6 Normal <12 [facility] Comment on above: Order Comment: Speci men Type: BLOOD SPECIMENOrdering Facility: [facility] Address: [address] [place] [address] Performed By: #### L [id number], , ####[facility] LWCLIA [id number] [place] [id number] [place] HIGH SENSITIVITY TROPONIN T (SECOND)on 11-09-2024 Troponin T.cardiac High sensitivity method [Mass/Vol] <6 Normal <12 [facility] Comment on above: Order Comment: Speci men Type: BLOOD SPECIMENOrdering Facility: [facility] Address: [address] [place] [address] Performed By: #### L [id number] ####[facility] [id number] [place] [id number] [place] Magnesium SerPl-mCncon 11-09 Magnesium [Mass/Vol] 2.2 mg/dL Normal 1.7-2.3 [facility] Comment on above: Order Comment: Speci men Type: BLOOD SPECIMENOrdering Facility: [facility] Address: [address] [place] [address] Performed By: #### L [id number], 61064-7, 60182-2 ####[facility] [id number] [place] [address] [place] XR CHEST 1V FRONTAL PORTon 1 01-10-2024 XR CHEST 1V FRONTAL PORT Normal [facility] BACTERIAL VAGINOSIS NAATon 1 12-25-2023 Lactobacillus crispatus+gasseri+analia senii + Gardnerella vaginalis + Atopobium vaginae rRNA LAURA+probe Ql (Vag fld) Not detected Normal Not detected [facility] Comment on above: Order Comment: Speci men Type: SWABOrdering Facility: [facility] Address: [address] [place] [address] Performed By: #### B VAMP, 24643-8 ####[facility] LABIA [id number] [place] [address] [place] C. trachomatis+N. gonorrhoea e DNA LAURA+probe Ql (Unsp spec)on 10-24-2024 C. trachomatis rRNA LAURA+probe Ql (Unsp spec) Not detected Normal Not detected [facility] Comment on above: Order Comment: Speci men Type: SWABOrdering Facility: [facility] Address: [address] [place] [address] Performed By: #### B VAMP, 22231-4 ####[facility] LABCLIA [id number] [place] [address] [place] N. gonorrhoeae rRNA LAURA+probe Ql (Unsp spec) Not detected Normal Not detected [facility] Comment on above: Order Comment: Speci men Type: SWABOrdering Facility: [facility] Address: [address] [place] [address] Performed By: #### B VAMP, 25878-4 ####[facility] LABCLIA [id number] [place] [address] [place] ALESSANDRA/TRICHOMONAS NAATon 1 12-25-2023 C. glabrata RNA LAURA+probe Ql (Vag fld) Not detected Normal Not detected [facility] Comment on above: Order Comment: Speci men Type: SWABOrdering Facility: [facility] Address: [address] [place] [address] Performed By: #### C VTV ####[facility] LABCLIA [id number] [place] [address] [place] Alessandra sp DNA LAURA+probe Ql (Vag fld) Detected Abnormal Not detected [facility] Comment on above: Order Comment: Speci men Type: SWABOrdering Facility: [facility] Address: [address] [place] [address] Result Comment: The Alessandra species group target includes C. albicans, C. tropicalis, C. parapsilosis, and C. dubliniensis. Performed By: #### C VTV ####[facility] LABCLIA [id number] [place] [address] [place] T. vaginalis DNA LAURA+probe Ql (Unsp spec) Not detected Normal Not detected [facility] Comment on above: Order Comment: Speci men Type: SWABOrdering Facility: [facility] Address: [address] [place] [address] Performed By: #### C VTV ####[facility] LABIA [id number] [place] [address] [place] CNOVon 10-24-2024 CNOV Normal [facility] CNPNon 10-03-2024 CNPN Normal [facility] CNOVon 09-27-2024 CNOV Normal [facility] CNOVon 09-20-2024 CNOV Normal [facility] ED NOTEon 09-20-2024 ED NOTE Normal [facility] ED NOTE Normal [facility] ED PROV NOTEon 09-20-2024 ED PROV NOTE Normal [facility] XR HAND 3V PA/LAT/OBL LTon 1 XR HAND 3V PA/LAT/OBL LT Normal [facility] XR WRIST 4V PA/LAT/OBL/SCAPH LTon 09-20-2024 XR WRIST 4V PA/LAT/OBL/SCAPH LT Normal [facility] CNPNon 09-08-2024 CNPN Normal [facility] BACTERIAL VAGINOSIS NAATon 1 Lactobacillus crispatus+gasseri+analia senii + Gardnerella vaginalis + Atopobium vaginae rRNA LAURA+probe Ql (Vag fld) Positive Abnormal Negative for bacterial vaginosis [facility] Comment on above: Order Comment: Speci men Type: SWABOrdering Facility: [facility] Address: [address] [place] [address] Performed By: #### C VTV, BVAMP ####[facility] LABIA [id number] [place] [address] [place] ALESSANDRA/TRICHOMONAS NAATon 1 C. glabrata RNA LAURA+probe Ql (Vag fld) Negative Normal Negative for Alessandra glabrata [facility] Comment on above: Order Comment: Speci men Type: SWABOrdering Facility: [facility] Address: [address] [place] [address] Performed By: #### C VTV, BVAMP ####[facility] LABCLIA [id number] [place] [address] [place] Alessandra sp DNA LAURA+probe Ql (Vag fld) Positive Abnormal Negative for Alessandra species [facility] Comment on above: Order Comment: Speci men Type: SWABOrdering Facility: [facility] Address: [address] [place] [address] Performed By: #### C VTV, BVAMP ####[facility] LABCLIA [id number] [place] [address] [place] T. vaginalis DNA LAURA+probe Ql (Unsp spec) Negative Normal Negative for Trichomonas vaginalis by amplification [facility] Comment on above: Order Comment: Speci men Type: SWABOrdering Facility: [facility] Address: [address] [place] [address] Performed By: #### C VTV, BVAMP ####[facility] LABCLIA [id number] [place] [address] [place] CNOVon 09-07-2024 CNOV Normal [facility] CNOVon 08-19-2024 CNOV Normal [facility] CNOVon 08-11-2024 CNOV Normal [facility] CNOVon 07-31-2024 CNOV Normal [facility] HEMOGLOBIN GLYCOSYLATED A1Co n 06-14-2024 HbA1c (Bld) [Mass fraction] 5.4 % 4.8 - 5.6 % [facility] Work Phone: LIPID PANEL WITH REFLEXon Cholesterol [Mass/Vol] 207 mg/dL High 100 - 199 mg/dL [facility] Work Phone: Cholesterol in HDL [Mass/Vol] 48 mg/dL >39 mg/dL [facility] Work Phone: Cholesterol in LDL [Mass/Vol] 135 mg/dL High 0 - 99 mg/dL [facility] Work Phone: Cholesterol in VLDL [Mass/Vol] 24 mg/dL 5 - 40 mg/dL [facility] Work Phone: Triglyceride [Mass/Vol] 135 mg/dL 0 - 149 mg/dL [facility] [employer] Work Phone: XR Ankle - left AP and Later al and obliqueon 04-08-2024 IMPRESSION: No acute fractures seen [employer] Instructor: ZACHARY Transcribe Date/Time: Apr 08 2024 10:00A Dictated by : KINSEY CAVANAUGH MD This examination was interpreted and the report reviewed and electronically signed by: KINSEY CAVANAUGH MD on Apr 08 2024 10:01AM [facility] DIVISION OF RADIOLOGY * * *Final Report* * * DATE OF EXAM: Apr 04 2024 12:56PM [id number] - XR ANKLE 3V AP/LAT/OBL LT / PROCEDURE REASON: Sprain of left ankle, unspecified ligament, initial encounter * * * * Physician Interpretation * * * * XR ANKLE 3V AP/LAT/OBL LT PROVIDED HISTORY: Sprain of left ankle, unspecified ligament, initial encounter COMPARISON: 03/21/2024 TECHNIQUE: 3 views left ankle RESULT: Lateral soft tissue swelling. Bony mineralization appears within normal limits. Osseous alignment appears intact. No acute fractures seen. No radiopaque foreign bodies are visualized. DIVISION OF RADIOLOGY Provider, [facility] - 04/08/2024 * * *Final Report* * * DATE OF EXAM: Apr 04 2024 12:56PM [id number] - XR ANKLE 3V AP/LAT/OBL LT / PROCEDURE REASON: Sprain of left ankle, unspecified ligament, initial encounter * * * * Physician Interpretation * * * * XR ANKLE 3V AP/LAT/OBL LT PROVIDED HISTORY: Sprain of left ankle, unspecified ligament, initial encounter COMPARISON: 03/21/2024 TECHNIQUE: 3 views left ankle RESULT: Lateral soft tissue swelling. Bony mineralization appears within normal limits. Osseous alignment appears intact. No acute fractures seen. No radiopaque foreign bodies are visualized. IMPRESSION IMPRESSION: No acute fractures seen [employer] Instructor: ZACHARY Transcribe Date/Time: Apr 08 2024 10:00A Dictated by : KINSEY CAVANAUGH MD This examination was interpreted and the report reviewed and electronically signed by: KINSEY CAVANAUGH MD on Apr 08 2024 10:01AM [facility] XR Ankle - left AP and Later al and obliqueOrdered By: Ccf Provider on 04-08-2024 [facility] XR Foot - left AP and Latera l and obliqueon 04-08-2024 IMPRESSION: No acute fractures seen [employer] Instructor: ZACHARY Transcribe Date/Time: Apr 08 2024 10:03A Dictated by : KINSEY CAVANAUGH MD This examination was interpreted and the report reviewed and electronically signed by: KINSEY CAVANAUGH MD on Apr 08 2024 10:03AM EST DIVISION OF RADIOLOGY * * *Final Report* * * DATE OF EXAM: Apr 04 2024 12:56PM [id number] - XR FOOT 3V AP/LAT/OBL LT / PROCEDURE REASON: Pain in left foot * * * * Physician Interpretation * * * * XR FOOT 3V AP/LAT/OBL LT PROVIDED HISTORY: Pain in left foot COMPARISON: 09/14/2018 TECHNIQUE: 3 views of left foot RESULT: Bony mineralization within normal limits. Mild interphalangeal degenerative change. Osseous alignment appears intact. No acute fractures seen. DIVISION OF RADIOLOGY Provider, [facility] - 04/08/2024 * * *Final Report* * * DATE OF EXAM: Apr 04 2024 12:56PM [id number] - XR FOOT 3V AP/LAT/OBL LT / PROCEDURE REASON: Pain in left foot * * * * Physician Interpretation * * * * XR FOOT 3V AP/LAT/OBL LT PROVIDED HISTORY: Pain in left foot COMPARISON: 09/14/2018 TECHNIQUE: 3 views of left foot RESULT: Bony mineralization within normal limits. Mild interphalangeal degenerative change. Osseous alignment appears intact. No acute fractures seen. IMPRESSION IMPRESSION: No acute fractures seen [employer] Instructor: ZACHARY Transcribe Date/Time: Apr 08 2024 10:03A Dictated by : KINSEY CAVANAUGH MD This examination was interpreted and the report reviewed and electronically signed by: KINSEY CAVANAUGH MD on Apr 08 2024 10:03AM EST [facility] No Panel Informationon 04-04 Radiology Study observation (narrative) [facility] XR Hand - left PA and Latera l and Obliqueon 02-08-2024 Radiology Study observation (narrative) [facility] IMPRESSION: Healing small finger metacarpal fracture with unchanged alignment. [employer] Instructor: ZACHARY Transcribe Date/Time: Feb 08 2024 12:58P Dictated by : YOSELIN WOODARD MD This examination was interpreted and the report reviewed and electronically signed by: YOSELIN WOODARD MD on Feb 08 2024 12:58PM [facility] DIVISION OF RADIOLOGY * * *Final Report* * * DATE OF EXAM: Feb 08 2024 12:57PM [id number] - XR HAND 3V PA/LAT/OBL LT / PROCEDURE REASON: Closed nondisplaced fracture of shaft of fifth metacarpal bone of left hand with * * * * Physician Interpretation * * * * EXAMINATION / TECHNIQUE: XR HAND 3V PA/LAT/OBL LT HISTORY: F/U FX Closed nondisplaced fracture of shaft of fifth metacarpal bone of left hand with routine healing, subsequent encounter COMPARISON: 01/28/2024. FINDINGS: There is a healing small finger metacarpal fracture with unchanged alignment. No new acute bony abnormality is identified. DIVISION OF RADIOLOGY Provider, [facility] - 02/08/2024 * * *Final Report* * * DATE OF EXAM: Feb 08 2024 12:57PM [id number] - XR HAND 3V PA/LAT/OBL LT / PROCEDURE REASON: Closed nondisplaced fracture of shaft of fifth metacarpal bone of left hand with * * * * Physician Interpretation * * * * EXAMINATION / TECHNIQUE: XR HAND 3V PA/LAT/OBL LT HISTORY: F/U FX Closed nondisplaced fracture of shaft of fifth metacarpal bone of left hand with routine healing, subsequent encounter COMPARISON: 01/28/2024. FINDINGS: There is a healing small finger metacarpal fracture with unchanged alignment. No new acute bony abnormality is identified. IMPRESSION IMPRESSION: Healing small finger metacarpal fracture with unchanged alignment. Beauty [employer] Instructor: ZACHARY Transcribe Date/Time: Feb 08 2024 12:58P Dictated by : YOSELIN WOODARD MD This examination was interpreted and the report reviewed and electronically signed by: YOSELIN WOODARD MD on Feb 08 2024 12:58PM EST [facility] XR Hand - left PA and Latera l and ObliqueOrdered By: Ccf Provider on 02-08-2024 [facility] XR Hand - left PA and Latera l and Obliqueon 01-28-2024 [facility] XR Hand - left PA and Latera l and Obliqueon 01-01-2024 [facility] No Panel Informationon 12-28 [facility] URINE CULTUREon 09-30-2023 Bacteria identified Cx Nom (U) 10,000 -<50,000 CFU/ml Normal urogenital nia [facility] UA DIP, URINE (POC)on 2022 BILIRUBIN UA (POCT) Negative Negative [facility] CLARITY UA (POCT) Cloudy [facility] COLOR UA (POCT) Yellow [facility] GLUCOSE UA (POCT) Negative Negative mg/dL [facility] Hemoglobin Ql (U) Negative Negative [facility] KETONE UA (POCT) Negative Negative mg/dL [facility] LEUKOCYTES UA (POCT) Moderate Abnormal Negative [facility] NITRITE UA (POCT) Negative Negative [facility] PH UA (POCT) 6.5 4.5 - 8.0 [facility] Protein Ql (U) Negative Negative mg/dL [facility] SPECIFIC GRAVITY UA (POCT) 1.015 1.005 - 1.030 [facility] UROBILINOGEN UA (POCT) 0.2 E.U./dL Normal E.U./dL [facility] UA DIP, URINE (POC)on 2022 BILIRUBIN UA (POCT) Negative Negative [facility] CLARITY UA (POCT) Clear [facility] COLOR UA (POCT) Yellow [facility] GLUCOSE UA (POCT) Negative Negative mg/dL [facility] Hemoglobin Ql (U) Moderate Abnormal Negative [facility] KETONE UA (POCT) Negative Negative mg/dL [facility] LEUKOCYTES UA (POCT) Small Abnormal Negative [facility] NITRITE UA (POCT) Negative Negative [facility] PH UA (POCT) 7.0 4.5 - 8.0 [facility] Protein Ql (U) Negative Negative mg/dL [facility] SPECIFIC GRAVITY UA (POCT) 1.010 1.005 - 1.030 [facility] UROBILINOGEN UA (POCT) 0.2 E.U./dL Normal E.U./dL [facility] Absolute lymphocyte counton 12-06-2022 Lymphocytes Auto (Unsp spec) [#/Vol] 1.62 10*3/uL 0.83-4.51 [facility] Work Phone: Basophil percentageon 2022 Basophils/100 WBC (Bld) 0.1 % 0-1 [facility] Work Phone: Eosinophils/100 WBC (Bld) 0.3 % 0-5 [facility] Work Phone: Neutrophils (Bld) [#/Vol] 6.5 10*3/uL 2.0-7.7 [facility] Work Phone: Neutrophils/100 WBC (Bld) 74.7 % 47-70 [facility] Work Phone: WBC (Bld) [#/Vol] 8.7 10*3/uL 4.4-11.0 [facility] Work Phone: Blood erythrocytes count (nu mber/volume)on 12-06-2022 RBC (Bld) [#/Vol] 5.14 10*6/uL 4.2-5.4 [facility] Work Phone: Blood hemoglobin measurement (mass/volume)on 12-06-2022 Hemoglobin (Bld) [Mass/Vol] 14.7 g/dL 12.0-15.0 [facility] Work Phone: Blood lymphocytes/100 leukoc yteson 12-06-2022 Lymphocytes/100 WBC (Bld) 18.6 % 19-41 [facility] Work Phone: Blood monocytes/100 leukocyt eson 12-06-2022 Monocytes/100 WBC (Bld) 5.7 % 0-10 [facility] Work Phone: Blood platelet mean volumeon 12-06-2022 Platelet mean volume (Bld) [Entitic vol] 9.9 fL 6.2-12.0 [facility] Work Phone: [phone] Determination of erythrocyte mean corpuscular volume (MCV)on 12-06-2022 MCV (RBC) [Entitic vol] 86.8 fL 81-99 [facility] Work Phone: Hematocrit Auto (Bld) [Volum e fraction]on 12-06-2022 Hematocrit (Bld) [Volume fraction] 44.6 % 37-47 [facility] Work Phone: [phone] Laboratory - Hematology and Cell countson 12-06-2022 Erythrocyte distribution width (RBC) [Entitic vol] 41.2 fL 35.1-43.9 [facility] Work Phone: [phone] Erythrocyte distribution width (RBC) [Ratio] 13.1 % 11.6-14.6 [facility] Work Phone: [phone] Immature granulocytes/100 WBC (Bld) 0.600 % 0.0-0.9 [facility] Work Phone: Comment on above: IG% - Immature Granu locytes (promyelocytes, myelocytes and metamyelocytes) > 1% indicates that a LEFT SHIFT is Present. MCH (RBC) [Entitic mass] 28.6 pg 27.0-32.0 [facility] Work Phone: [phone] Nucleated RBC/100 WBC (Bld) [Ratio] 0 % 0-5 [facility] Work Phone: [phone] MCHC Auto (RBC) [Mass/Vol]on 12-06-2022 MCHC (RBC) [Mass/Vol] 33.0 g/dL 32-36 [facility] Work Phone: Platelets bldon 12-06-2022 Platelets (Bld) [#/Vol] 324 10*3/uL 150-450 [facility] Work Phone: UA DIP, URINE (POC)on 2021 BILIRUBIN UA (POCT) Negative Negative [facility] CLARITY UA (POCT) Clear [facility] COLOR UA (POCT) Yellow [facility] GLUCOSE UA (POCT) Negative Negative mg/dL [facility] HEMOGLOBIN/BLOOD UA (POCT) Large Abnormal Negative [facility] KETONE UA (POCT) Negative Negative mg/dL [facility] LEUKOCYTES UA (POCT) Small Abnormal Negative [facility] NITRITE UA (POCT) Negative Negative [facility] PH UA (POCT) 6.0 4.5 - 8.0 [facility] Protein Ql (U) 30 mg/dL Abnormal Negative mg/dL [facility] SPECIFIC GRAVITY UA (POCT) >=1.030 1.005 - 1.030 [facility] UROBILINOGEN UA (POCT) 0.2 E.U./dL Normal E.U./dL [facility] URINE OB DIP B/Oon 2 Glucose Ql (U) Negative Neg mg/dL [facility] Protein.monoclonal (U) [Mass/Vol] trace Neg mg/dL [facility] OBSTETRIC ULTRASOUND WHIon 0 06-24-2022 [facility] HEMOGLOBIN A1C (POC)on 06-03 HbA1c (Bld) [Mass fraction] 5.2 % 4.2 - 5.6 % [facility] URINE OB DIP B/Oon 2 Glucose Ql (U) 100 mg/dL Neg mg/dL [facility] Protein.monoclonal (U) [Mass/Vol] trace Neg mg/dL [facility] GC + CHLAMYDIA BY AMPLIFIED DETECTIONon 04-22-2022 CHLAMYDIA TRACH.,AMPLIFIED Negative Normal Negative [facility] Comment on above: Result Comment: The APTIMA Combo 2 assay is FDA-approved for Chlamydia trachomatis and Neisseria gonorrhoeae testing on female endocervical and vaginal swabs, ThinPrep liquid pap samples, male urine samples and urethral swabs. Performance characteristics for Chlamydia trachomatis and Neisseria gonorrhoeae testing on specific swj-RPB-uugjzhue sample types (female urine samples) have been validated by [facility]. This laboratory is certified by CLIA to perform high complexity testing. Samples from all other sites are not validated for this method. Performed By: #### G [facility] #### [facility] [id number] [place] [address] N.GONORRHEA,AMPLIFIED Negative Normal Negative [facility] Comment on above: Result Comment: The APTIMA Combo 2 assay is FDA-approved for Chlamydia trachomatis and Neisseria gonorrhoeae testing on female endocervical and vaginal swabs, ThinPrep liquid pap samples, male urine samples and urethral swabs. Performance characteristics for Chlamydia trachomatis and Neisseria gonorrhoeae testing on specific fwf-KXF-qabeetet sample types (female urine samples) have been validated by [facility]. This laboratory is certified by CLIA to perform high complexity testing. Samples from all other sites are not validated for this method. Performed By: #### G CCHA #### [facility] [id number] [place] [address] TRICHOMONAS,NUCLEIC ACID DET ECTIONon 04-22-2022 TRICHOMONAS VAGINALIS Negative Normal Negative [facility] Comment on above: Result Comment: The APTIMA Trichomonas vaginalis assay is FDA-approved for testing on female endocervical swabs, vaginal swabs, and ThinPrep liquid pap samples. Performance characteristics for Trichomonas vaginalis on specific ivo-HDD-aycadgbh sample types (female and male urine and male urethral swabs) have been validated by [facility]. This laboratory is certified by CLIA to perform high complexity testing. Samples from all other sites are not validated for this method. Performance characteristics for Trichomonas Vaginalis testing on urine samples has been validated by [facility]. Testing on this sample type is not FDA-approved, but such approval is not necessary. This laboratory is certified by CLIA to perform high complexity testing. Performed By: #### T SURYA #### [facility] [address] [place] [address] Daily Progress Note - OB-Tri ageon 04-21-2022 Daily Progress Note - OB-Triage Current Stage: Stage: Triage Subjective Data: Antepartum: Vaginal Bleeding: No Contractions/Abdominal Pain: No Discharge/Loss of Fluid: No Movement: Good Fevers/Chills: No Preeclampsia Symptoms: No Antepartum: Patient presents with a two days history of burning with urination, compounded by hesitancy today. Patient is a at 26 weeks. No history of PTL. No vaginal bleeding or contractions noted. Objective Information: Objective Information: T PRBPMAPSpO2 [id number]% Date/Time04/21 16: 16: 16: 16: 16:56 Range (82 - 85 ) (17 - 17 ) (116 - 116 )/ (67 - 67 ) (86 - 86 ) (93% - 95% ) Pain reported at 04/21 16:56: 3 = Mild; burning with urination T PRBPMAPSpO2 [id number]/258878% Date/Time04/21 16: 17: 16: 17: 17: 17:37 Range(36.8C - 36.8C ) (82 - 85 ) (17 - 17 ) (103 - 116 )/ (65 - 67 ) (77 - 86 ) (93% - 95% ) Physical Exam: Constitutional: alert, oriented Respiratory/Thorax: normal effort Cardiovascular: normal rate Genitourinary: no CVAT, no suprapubic tenderness Extremities: no calf tenderness, reflexes 2+ Psychological: appropriate affect Recent Lab Results: Results: I have reviewed these laboratory results: Urinalysis 21-Apr-2022 17:02:00 ResultValue Color, Urine YELLOW Reference Range: STRAW,YELLOW Appearance, Urine HAZY Specific Spencer, Urine 1.019 pH, Urine 7.0 Protein, Urine NEGATIVE Glucose, Urine 50(TRACE) A Blood, Urine SMALL(1+) A Ketones, Urine NEGATIVE Bilirubin, Urine NEGATIVE Urobilinogen, Urine <2.0 Nitrite, Urine NEGATIVE Leukocyte Esterase, Urine MODERATE(2+) A Urinalysis, Microscopic 21-Apr-2022 17:02:00 ResultValue White Cells 21-50 A Red Blood Cells 21-50 A Epithelial Cells, Squamous 3 Assessment and Plan: Impression 1: UTI Plan for Impression 1: Keflex given PTL precautions given F/U with her OB next week Electronic Signatures: Jaya Kaur) (Signed 21-Apr-2022 17:54) Authored: Current Stage, Subjective Data, Objective Data, Assessment and Plan, Note Completion Last Updated: 21-Apr-2022 17:54 by Jaya Kaur) Normal [facility] Discharge [id number] Discharge Profile2 Discharge Orders: DNAR: Code Status at Discharge: Full Code Antepartum: Activity: Return to normal activity as tolerated. Pelvic Rest: DO NOT place anything in vagina until cleared by OB Provider. Assess movements daily. Call Provider If: New onset of vaginal bleeding.. Temperature greater than 100.4 degrees Fahrenheit. Signs of Depression. Examples include: 1. Persistent sadness 2. Frequent crying 3. Sleep problems 4. Excessive worrying 5. Feeling unable to cope. Any noticeable change in baby kicks or movement. Any leakage of fluid. Diet: Regular. Follow-Up - OB Provider: Call to Schedule in1 week Provider FINAL REVIEW of Orders: Final Review: Final Review of Medication Reconciliation and Orders Completedby Physician Reviewing ProviderSderrell Kaur MD at 21-Apr-2022 17:03:57 Electronic Signatures: Jaya Kaur) (Signed 21-Apr-2022 17:03) Authored: Discharge Orders, Antepartum, Provider FINAL REVIEW of Orders, Gold Form - Vamp Stitcher Summary Last Updated: 21-Apr-2022 17:03 by Jaya Kaur) Normal [facility] Order Reconciliationon 04-21 Order Reconciliation Page 1 Discharge Reconciliation Document Reconciliation Type: Discharge requested on behalf of Jaya Kaur (Physician) done by Jaya Kaur () Discharge - Reconciliation: 21-Apr-2022 17:01 by: Jaya Kaur) Home Medications EnteredHOME MEDICATIONS AT DISCHARGE DateReconciliation Comment/ Additional Information Bactrim DS 800 mg-160 mg oral tablet 160 milligram(s) orally 2 times a day 21-Sep-2021 16:59 Discontinued; Discontinue from ORM Bactrim DS 800 mg-160 mg oral tablet is not required Colace 50 mg oral capsule 1 cap(s) orally 2 times a day 21-Apr-2022 16:54 Colace 50 mg oral capsule 1 cap(s) orally 2 times a day 21-Apr-2022 16:54 Colace 50 mg oral capsule is continued as Colace 50 mg oral capsule LaMICtal 150 mg oral tablet 150 milligram(s) orally once a day 17-Mar-2022 13:54 LaMICtal 150 mg oral tablet 150 milligram(s) orally once a day 17-Mar-2022 13:54 LaMICtal 150 mg oral tablet is continued as LaMICtal 150 mg oral tablet lamoTRIgine 150 mg oral tablet 1 tab(s) orally once (at bedtime) 21-Apr-2022 16:55 Discontinued; Discontinue from ORM lamoTRIgine 150 mg oral tablet is not required metroNIDAZOLE 500 mg oral tablet 1 tab(s) orally 2 times a day 21-Apr-2022 16:54 metroNIDAZOLE 500 mg oral tablet 1 tab(s) orally 2 times a day 21-Apr-2022 16:54 metroNIDAZOLE 500 mg oral tablet is continued as metroNIDAZOLE 500 mg oral tablet RisperDAL 1 mg oral tablet 1 milligram(s) orally once a day 17-Mar-2022 13:53 RisperDAL 1 mg oral tablet 1 milligram(s) orally once a day 17-Mar-2022 13:53 RisperDAL 1 mg oral tablet is continued as RisperDAL 1 mg oral tablet Current OrdersDateHOME MEDICATIONS AT DISCHARGE DateReconciliation Comment/ Additional Information Cephalexin Capsule (KEFLEX)DOSE = 500 mg Oral Every 12 Hours 21-Apr-2022 17:01 cephalexin 500 mg oral capsule 1 cap(s) orally every 12 hours 21-Apr-2022 17:01 Prescription is created for cephalexin 500 mg oral capsule hydrALAZINE (APRESOLINE) Injectable DOSE = 5 mg IntraVenous Push Once, PRN Acute-onset, severe HTN w/out known, suspected CADClinician Notes: Consult provider prior to administration. Push over more than 2 minutes. Systolic greater than or equal to 16 21-Apr-2022 17:01 hydrALAZINE (APRESOLINE) Injectable is not required Labetalol Injectable (TRANDATE)DOSE = 20 mg IntraVenous Push Once, PRN Acute-onset, sev HTN w/o active asthma/ carlos<60Clinician Notes: Consult provider prior to administration. Push over more than 2 minutes. Systolic greater than or equal to 160 OR 21-Apr-2022 17:01 Labetalol Injectable is not required NIFEdipine (PROCARDIA) Immediate Release CapsuleDOSE = 10 mg Oral Once, PRN Acute-onset, severe HTN w/out IV access/ pref oralClinician Notes: Consult provider prior to administration. Systolic greater than or equal to 160 OR Diastolic greater than or 21-Apr-2022 17:01 NIFEdipine (PROCARDIA) Immediate Release is not required All Active Home Medications at time of Discharge Reconciliation: 21-Apr-2022 17:01 cephalexin 500 mg oral capsule 1 cap(s) orally every 12 hours Colace 50 mg oral capsule 1 cap(s) orally 2 times a day LaMICtal 150 mg oral tablet 150 milligram(s) orally once a day metroNIDAZOLE 500 mg oral tablet 1 tab(s) orally 2 times a day RisperDAL 1 mg oral tablet 1 milligram(s) orally once a day Normal [facility] Risk Screen - OB Triageon Risk Screen - OB Triage Allergies: Allergies: Allergies: Zyrtec: Anaphylaxis Phenergan: Rash melatonin: Rash Caffeine: Rash Intolerances: Zyrtec: Unknown Phenergan: Unknown Patient Verification: Patient Verification: New W ID Band Applied in my Departmentyes Patient Identity Verified Bypatient ID Band FULL Name, include Middle, spelling matches patient's ID used for verificationyes ID Band Matches Patient ID used for Verficationyes ID Band MRN Matches EMR MRNyes Travel History: Travel History: COVID-19 Screening Completedno exposure or symptoms Travel or Exposure Past 30 DaysNO travel to International locations in the past 30 days Advance Directives: Advance Directive: Advance Directive/DNRno Advance Directive Information Givenpatient/family declined Falls Risk: Evans Fall Screen: History of falling (immediate or previous)no (0) Secondary Diagnosisno (0) Intravenous Therapy/ Heparin/Saline Lockno (0) Gait/Transferringnormal/b edrest/wheelchair (0) Ambulatory Aidsnone/bedrest/nurse assist (0) Mental Statusoriented to own ability (0) Score: Low risk (<25). Moderate risk (25-44). High risk (>44).0 Evans InterventionsLOW INTERVENTIONS: *patient oriented to surroundings and call system, * patient/family falls education completed and documented, *patients fall status communicated during bedside handoff, *whiteboard updated, *mode of toileting discussed with patient, *bed in low position with brakes locked, *call light in reach, * non-skid footwear Learning Assessment (Patient): Learning Assessment (Patient): Patient is Able to be Assessed for Learningyes Factors Influencing Readiness to Learnmotivation to learn Factors that Impact Ability to Learnnone Devices/Methods Used to Communicatenone Learning Preferencesverbal instruction Cultural Considerationsnone Developmental Considerationsnone Spiritism Considerationsnone Learning Assessment (Other Learner): Other learner availableno Depression/Suicide: Depression Screen: During the past month, have you often been bothered by feeling down, depressed or hopelessno During the past month, have you often had little interest or pleasure in doing thingsno Have you had any thoughts of harming anyone elseno [place] Suicide: Risk Screen Not Applicable/Able to Answerable to be screened In the Past Month: Have you wished you were or could go to sleep and not wake upno In the Past Month: Have you had any actual thoughts of killing yourselfno Lifetime: Have you ever done, started to do, or prepared to do anything to end your lifeno [place] Suicide Risknegative Family Violence: Abuse Screen: Are you or have you been threatened or abused physically, emotionally, or sexually by anyoneno Do you feel UNSAFE going back to the place where you are livingno Clinical assessment: Are there any apparent signs of injuries/behaviors that could be related to abuse/neglectno Electronic Signatures: Johana Murphy (RN) (Signed 21-Apr-2022 16:47) Authored: Allergies, Patient Verification, Travel History, Advance Directives, Evans Fall Screen, Learning Assessment (Patient), Learning Assessment (Other Learner), Depression/Suicide, Family Violence Last Updated: 21-Apr-2022 16:47 by Johana Murphy (MIRNA) Normal [facility] TRICHOMONAS,NUCLEIC ACID DET ECTIONon 04-21-2022 Lab Specimen Source Urine Normal [facility] Comment on above: Performed By: #### T SURYA #### [facility] [address] [place] [id number] Performed By: #### G CCHA #### [facility] [address] [place] [address] Triage Note - OB v4on 2021 Triage Note - OB v4 Triage: General Info: Time of Arrival on [id number] 16:35 [facility] Acuity Level3 Time Acuity Level [id number] 16:48 Modified Acuity Level5 Time Modified Acuity Level [id number] 16:55 Chief Complaintpain on urination Spoken Language PreferredEnglish (1) Source of Informationpatient Weight in kg70 kilogram(s) Weight in bxa930.3 pound(s) Weight Methodactual (measured) Scale Typestanding Height in feet5 feet Height in inches3.98 inch(es) Height in cm162.5 centimeter(s) Height Methodstated BMI (kg/m2)26.508 square meter Blood Avoidance/Restrictionsnon e(1) Previous Transfusion Reactionno(1) Patient Belongingsremains with patient Patient Belongings Remaining with Patientcell phone/electronics; clothing Home Meds have been Reviewed and Verified with Patient/Familyno Info: Gravida2 Term Deliveries1 Deliveries0 Abortions0 Living Children1 Patient stated [id number] Calculation of EGA based on patient stated EDD26 Substance: Smoking Statusnever smoker Alcohol Usedenies Drug Usedenies Drug 2 Usedenies Disposition/Disch: Dispositiondischarged from facility, home with own care Discharge/Transfer Summary NotePatient d/c with self care. Orders to follow up with provider and to take antibiotics as prescribed for uti. No questions at this time. Patient Meets Criteria for Home Blood Pressure Monitorno Admission/Observation/Dis charge/Transfer Date/[id number] 17:45 Discharge Modeambulatory Transportation Methodprivate car Travel History: Travel or ExposureNO travel to International locations in the past 30 days Additional Information: Information Review: Allergies have been Reviewed and Verified with Patient/Familyyes Allergy, Intolerance, Adverse Event: Allergies: Zyrtec: Drug, Anaphylaxis, Active Phenergan: Drug, Rash, Active melatonin: Drug, Rash, Active Caffeine: Drug, Rash, Active Intolerances: Zyrtec: Drug, Unknown, Active Phenergan: Drug, Unknown, Active Electronic Signatures: Johana Murphy (MIRNA) (Signed 21-Apr-2022 17:46) Authored: General Info, Info, Substance, Disposition/Disch, Travel History, Additional Information Last Updated: 21-Apr-2022 17:46 by Johana Murphy (MIRNA) References: 1. Data Referenced From Triage Note - OB v4 17-Mar-2022 13:39 Normal [facility] UA MICROSCOPICon 04-21-2022 RBC 21-50 Abnormal 0-5 [facility] Comment on above: Performed By: #### U AMIC #### [address] [place] [address] SQUAMOUS EPITH. CELLS 3 /HPF Normal [facility] Comment on above: Performed By: #### U AMIC #### [address] [place] [address] WBC 21-50 Abnormal 0-5 [facility] Comment on above: Performed By: #### U AMIC #### [address] [place] [address] URINALYSISon 04-21-2022 Appearance (U) HAZY Normal CLEAR [facility] Comment on above: Performed By: #### U A #### [address] [place] [address] Bilirubin Ql (U) Negative Normal NEGATIVE [facility] Comment on above: Performed By: #### U A #### [address] [place] [address] Color (U) YELLOW Normal STRAW,YELLOW [facility] Comment on above: Performed By: #### U A #### [address] [place] [address] Glucose Ql (U) 50(TRACE) Abnormal NEGATIVE [facility] Comment on above: Performed By: #### U A #### [address] [place] [address] Hemoglobin Ql (U) SMALL(1+) Abnormal NEGATIVE [facility] Comment on above: Performed By: #### U A #### [address] [place] [address] Ketones Ql (U) Negative Normal NEGATIVE [facility] Comment on above: Performed By: #### U A #### [address] [place] [address] Leukocyte esterase Test strip Ql (U) MODERATE(2+) Abnormal NEGATIVE [facility] Comment on above: Performed By: #### U A #### [address] [place] [address] Nitrite Ql (U) Negative Normal NEGATIVE [facility] Comment on above: Performed By: #### U A #### [address] [address] pH (U) 7.0 [pH] Normal 5.0 - 8.0 [facility] Comment on above: Performed By: #### U A #### [address] [place] [address] Protein Ql (U) Negative Normal NEGATIVE [facility] Comment on above: Performed By: #### U A #### [place] [id number] [place] [address] Specific gravity (U) [Rel density] 1.019 Normal 1.005 - 1.035 [facility] Comment on above: Performed By: #### U A #### [place] [id number] [place] [address] Urobilinogen (U) [Mass/Vol] mg/dL Normal 0.0 - 1.9 [facility] Comment on above: Performed By: #### U A #### [address] [place] [address] URINE OB DIP B/Oon 2 Glucose Ql (U) 250 mg/dL Neg mg/dL [facility] Protein.monoclonal (U) [Mass/Vol] Negative Neg mg/dL [facility] OBSTETRIC ULTRASOUND WHIon 0 03-11-2022 [facility] URINE OB DIP B/Oon 2 Glucose Ql (U) Negative Neg mg/dL [facility] Protein.monoclonal (U) [Mass/Vol] Negative Neg mg/dL [facility] Provider Note - ED v2on 10-3 Provider Note - ED v2 Provider Note - ED v2: Chart Review: ED NOTES ED NOTES: Patient is a 31-year-old female presents the emergency department via private vehicle with chief complaint of pain and swelling in her left gluteus. Patient states for the past 3 days, she has had a painful spot located on her left lower gluteus. States that she attempted to drain it herself and did get some purulent discharge drained yesterday. The area of induration and swelling increased in size today and the patient became worried. Patient states she came to the emergency department after reading on [employer] that this could be a severe infection. Patient is denying any fevers, chills, chest pain, shortness of breath. She does admit to occasional lightheadedness which is not uncommon for her. She has been nauseous, no episodes of emesis. Past medical history: Bipolar disorder Surgical history: Denies Social history: Denies alcohol, tobacco and drug ROS: All systems reviewed and are negative except as noted or marked PE: vital Signs reviewed and noted to be within normal limits. the patient is not hypoxic. General: Alert, no acute distress, patient resting comfortably Skin: warm, intact. There is 0.5 cm area of induration with surrounding erythema approximately 4 cm in diameter. No active draining at this time. This is located on the left lower gluteus. It is not perirectal. Head: Normocephalic, atraumatic Eye: Normal conjunctiva Cardiac: Normal peripheral perfusion Respiratory: No acute distress Musculoskeletal: No deformity, full ROM. Neurological: alert and oriented, normal sensory and motor observed. Psychiatric: Cooperative MDM: Patient is seen and examined. Nurse to [facility] is present as a maintenance team leader. Appears to be an abscess, however no fluctuance is appreciated. Bedside ultrasound was performed and there is no drainable fluid collection. Patient is denying fevers. She states that she is anxious being in the emergency department is slightly tachycardic. Patient is given a dose of Bactrim. She will be discharged with prescription for Bactrim and advised to utilize warm compresses. Patient is advised to follow-up with her primary care physician. She is given return precautions. Patient understands and agrees with discharge plan HISTORY OF PRESENTING ILLNESS ROSALVA is a 31 year old Female and was seen by me at 21-Sep-2021 16:35 for a chief complaint of wound check (Left buttock) . Triage Information: Most recent Vital Sign Value Date Temp (F): 98.7 09-21-2021 16:21 Temp (C): 37.1 09-21-2021 16:21 Heart Rate (beats/min): 112 09-21-2021 16:21 Respirations (breaths/min): 18 09-21-2021 16:21 SpO2 (%): 98 09-21-2021 16:21 BP Systolic (mm Hg): 110 09-21-2021 16:21 BP Diastolic (mm Hg): 66 09-21-2021 16:21 PAST MEDICAL HISTORY ATTESTATION: I have reviewed and confirmed nurse's/medic's notes for patient's medications, allergies, and medical, surgical, family and social history ALLERGIES/INTOLERANCES: Intolerance Allergen: Zyrtec Type: Drug Reaction: Unknown Allergen: Phenergan Type: Drug Reaction: Unknown HEALTH HISTORY: No documented data. OUTPATIENT MEDICATIONS: Home Medications Review Status for Reconciliation: N/A Med Status: N/A No documented data. SIGNIFICANT EVENTS: No documented data. HAND HEEL SEAT FITTER: Is : no(1) Is : no(1) CLINICAL IMPRESSION Diagnosis/Annotation: ED Dx Name:Abscess Code:L02.91 Name:Cellulitis Code:L03.90 Disposition: discharged ATTESTATION Comments/Additional Findings: Did you see this patient with a resident ( x ) No ( ) Yes. I personally saw and examined the patient. I have reviewed and agree with the residents findings, including all diagnostic interpretations and treatment plans as written unless documented otherwise in my personal note. I was present for the guido portions of any procedures performed and the inclusive time noted for any critical care statement. CRITICAL CARE TIME Is this a critically ill patient: no Electronic Signatures: Rojelio Dao () (Signed 21-Sep-2021 16:58) Authored: ED Notes, HPI, PMH, Clinical Impression, Attestation, Chart Review, Scores Last Updated: 21-Sep-2021 16:58 by Rojelio Dao () References: 1. Data Referenced From "Triage - ED" 21-Sep-2021 16:21 Normal [facility] Risk Screen - Adult Emergenc yon 09-21-2021 Risk Screen - Adult Emergency Preferred Language: Preferred Language: Preferred Language for Discussing Health Care (patient/designee)Citizen Of [place] Advanced Directives: Advance Directive/DNRno Family Violence Adult: Abuse Screen: Are you or have you been threatened or abused physically, emotionally, or sexually by anyoneno Learning Assessment (Patient): Learning Assessment (Patient): Patient is Able to be Assessed for Learningyes Factors Influencing Readiness to Learnacuteness of illness Factors that Impact Ability to Learnnone Devices/Methods Used to Communicatenone Learning Preferencesindividual instruction Cultural Considerationsnone Developmental Considerationsnone Spiritism Considerationsnone Learning Assessment (Other Learner): Learning Assessment (Other Learner): Other learner availableno Pressure Injury/TB/Substance: Pressure Injury: Do you have a coughno Smoking Statusnever smoker Admission Risk Screen: Significant IndicatorsComplete CAGE: CAGE: Is this an injured patient at a Trauma Center ([facility]/[place]/ [place]): no Electronic Signatures: Sharda Celeste (RN) (Signed 21-Sep-2021 16:35) Authored: Preferred Language, Advanced Directives, Family Violence Adult, Learning Assessment (Patient), Learning Assessment (Other Learner), Pressure Injury/TB/Substance, Pressure Injury, CAGE Last Updated: 21-Sep-2021 16:35 by Sharda Celeste (MIRNA) Normal [facility] Triage - EDon 09-21-2021 Triage - ED Quick Triage: Are You no Have You Given In The Last 6 Weeksno Are You Currently Breastfeedingno Chart Review: PRIMARY ASSESSMENT REINA CASTRO's primary assessment is Within Defined Limits. The airway is open and patent. Breathing spontaneous and unlabored with clear breath sounds bilaterally. Circulation is normal with good peripheral pulses. Skin is warm and dry and color is normal for race. 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 Triage Date/Time: 21-Sep-2021 16:21 ANISH: 3 Vital Signs: Temperature: 98.7F ( 37.1C) taken temporal Blood Pressure: 110/66 Mean: Heart Rate: 112 Respiratory Rate: 18 Pulse Oximetry: 98% on room air, no respiratory support. Height: 5 feet 2.00 inches. 157.4 CM Weight: 133.1 pounds. Calculated 60.4 kg. Calculated BMI (kg/m2): 24.379 Calculated BSA (m2) 1.63 Siobhan Coma Scale: Best Eye Response: (E4) spontaneous Best Motor Response: (M6) obeys commands Best Verbal Response: (V5) oriented [place] Score: 15 Cough lasting greater than 3 weeks: no Allergies: yes Mask applied: yes Patient has homicidal thoughts: no Symptom Notes: . Symptoms Are POSITIVE For: pain (describe), rash and redness. Risk Screens Suicide Risk Screen In the Past Month: Have you wished you were or wished you could go to sleep and not wake up no In the Past Month: Have you had any actual thoughts of killing yourself no In Your Lifetime: Have you ever done anything, started to do anything, or prepared to do anything to end your life no Evans Fall Scale Screening Has the patient fallen before (or is the patient in the ED as a result of a fall) has not had a fall Does the patient have an impaired gait does not have impaired gait Is the patient cognitively impaired not cognitively impaired Interventions: Evans Fall Interventions: LOW INTERVENTIONS: *patient oriented to surroundings and call system, * patient/family falls education completed and documented, *patients fall status communicated during bedside handoff, *whiteboard updated, *mode of toileting discussed with patient, *bed in low position with brakes locked, *call light in reach, * non-skid footwear TRAVEL HISTORY Travel History Coronavirus Screening: no exposure or symptoms Travel Exposure History: NO travel to International locations in the past 30 days PAIN Pain Scale Used: DEEPAK Past Medical History: Past Medical History Reviewedyes Electronic Signatures: Richard Melgoza (RN) (Signed 21-Sep-2021 16:25) Entered: Risk Screens, Pain, Arrival, ABCD, Travel History, Chart Review, Scores, Past Medical History Authored: Quick Triage, Risk Screens, Pain, Arrival, ABCD, Travel History, Chart Review, Scores, Past Medical History Last Updated: 21-Sep-2021 16:25 by Richard Melgoza (RN) Normal [facility] ED NOTEon 04-24-2021 ED NOTE HNO ID: [id number] Author: Salma Hager RN Service: ? Author Type: Registered Nurse Type: ED Notes Filed: 04/24/2021 4:27 PM Note Text: Patient is being sent in by OBGYN for c/o post depression. She delivered a week ago and called the office crying uncontrollably stating she was having horrible thoughts and was going to drop the baby. She is also off her bipolar medications. [facility] APTTon 11-03-2020 aPTT Coag (Bld) [Time] 24.5 s Normal 23.0-32.4 [facility] Comment on above: Result Comment: Unfr actionated Heparin Therapeutic Ranges: Standard Heparin Nomogram: 53 to 78 seconds (anti-Xa level of 0.3 to 0.7 U/ml) Low Dose/ACS Nomogram: 49 to 67 seconds (anti-Xa level of 0.2 to 0.5 U/ml) Stroke Treatment Nomogram: 49 to 67 seconds (anti-Xa level of 0.2 to 0.5 U/ml) Note: The APTT therapeutic range has been determined for the current lot of laboratory APTT reagent in use throughout the [facility]. Performed By: #### P T, PTT, LIPA, CMP, MG1, CBCDIF #### [facility] [address] [place] [address] CBC and Differentialon 11-03 Abs Baso 0.03 k/uL Normal <0.11 [facility] Comment on above: Performed By: #### P T, PTT, LIPA, CMP, MG1, CBCDIF #### [facility] [address] [place] [address] Abs Vilas 0.55 k/uL Normal <0.87 [facility] Comment on above: Performed By: #### P T, PTT, LIPA, CMP, MG1, CBCDIF #### [facility] [address] [place] [address] Abs Neut 9.67 k/uL High 1.45-7.50 [facility] Comment on above: Performed By: #### P T, PTT, LIPA, CMP, MG1, CBCDIF #### [facility] [address] [place] [address] Absolute nRBC <0.01 Normal <0.01 [facility] Comment on above: Performed By: #### P T, PTT, LIPA, CMP, MG1, CBCDIF #### [facility] [address] [place] [address] Basophils/100 WBC (Bld) 0.3 % Normal [facility] Comment on above: Performed By: #### P T, PTT, LIPA, CMP, MG1, CBCDIF #### [facility] [address] [place] [address] DTYPE Auto Diff Normal [facility] Comment on above: Performed By: #### P T, PTT, LIPA, CMP, MG1, CBCDIF #### [facility] [address] [place] [address] Eosinophils (Bld) [#/Vol] 10*3/uL Normal <0.46 [facility] Comment on above: Performed By: #### P T, PTT, LIPA, CMP, MG1, CBCDIF #### [facility] [address] [facility] [phone] Eosinophils/100 WBC (Bld) 0.2 % Normal [facility] Comment on above: Performed By: #### P T, PTT, LIPA, CMP, MG1, CBCDIF #### [facility] [address] [place], [place] [id number] Erythrocyte distribution width (RBC) [Ratio] 12.7 % Normal 11.5-15.0 [facility] Comment on above: Performed By: #### P T, PTT, LIPA, CMP, MG1, CBCDIF #### [facility] [address] [place] [address] Hematocrit (Bld) [Volume fraction] 39.9 % Normal 36.0-46.0 [facility] Comment on above: Performed By: #### P T, PTT, LIPA, CMP, MG1, CBCDIF #### [facility] [address] [place], [place] [address] Hemoglobin (Bld) [Mass/Vol] 13.4 g/dL Normal 11.5-15.5 [facility] Comment on above: Performed By: #### P T, PTT, LIPA, CMP, MG1, CBCDIF #### [facility] [address] [place], [place] [address] Lymphocytes (Bld) [#/Vol] 1.56 10*3/uL Normal 1.00-4.00 [facility] Comment on above: Performed By: #### P T, PTT, LIPA, CMP, MG1, CBCDIF #### [facility] [address] [place], [place] [address] Lymphocytes/100 WBC (Bld) 13.2 % Normal [facility] Comment on above: Performed By: #### P T, PTT, LIPA, CMP, MG1, CBCDIF #### [facility] [address] [place], [place] [id number] MCH (RBC) [Entitic mass] 29.7 pG Normal 26.0-34.0 [facility] Comment on above: Performed By: #### P T, PTT, LIPA, CMP, MG1, CBCDIF #### [facility] [address] MCHC (RBC) [Mass/Vol] 33.6 g/dL Normal 30.5-36.0 [facility] Comment on above: Performed By: #### P T, PTT, LIPA, CMP, MG1, CBCDIF #### [facility] [address] [place] [address] MCV (RBC) [Entitic vol] 88.5 fL Normal 80.0-100.0 [facility] Comment on above: Performed By: #### P T, PTT, LIPA, CMP, MG1, CBCDIF #### [facility] [address] [place] [address] Monocytes/100 WBC (Bld) 4.6 % Normal [facility] Comment on above: Performed By: #### P T, PTT, LIPA, CMP, MG1, CBCDIF #### [facility] [address] [place], [place] [id number] Neutrophils/100 WBC (Bld) 81.7 % Normal [facility] Comment on above: Performed By: #### P T, PTT, LIPA, CMP, MG1, CBCDIF #### [facility] [address] [place] [address] NRBCs 0.0 /100 WBC Normal 0 [facility] Comment on above: Performed By: #### P T, PTT, LIPA, CMP, MG1, CBCDIF #### [facility] [address] [place], [place] [address] Platelet mean volume (Bld) [Entitic vol] 10.6 fL Normal 9.0-12.7 [facility] Comment on above: Performed By: #### P T, PTT, LIPA, CMP, MG1, CBCDIF #### [facility] [address] [place], [place] [phone] Platelets (Bld) [#/Vol] 223 10*3/uL Normal 150-400 [facility] Comment on above: Performed By: #### P T, PTT, LIPA, CMP, MG1, CBCDIF #### [facility] [address] [address] RBC (Bld) [#/Vol] 4.51 10*6/uL Normal 3.90-5.20 [facility] Comment on above: Performed By: #### P T, PTT, LIPA, CMP, MG1, CBCDIF #### [facility] [address] [address] WBC (Bld) [#/Vol] 11.83 10*3/uL High 3.70-11.00 [facility] Comment on above: Performed By: #### P T, PTT, LIPA, CMP, MG1, CBCDIF #### [facility] [address] [address] Comp Metabolic Panelon 11-03 Albumin [Mass/Vol] 4.0 g/dL Normal 3.9-4.9 [facility] Comment on above: Performed By: #### P T, PTT, LIPA, CMP, MG1, CBCDIF #### [facility] [address] [place] [address] ALP [Catalytic activity/Vol] 66 U/L Normal 34-123 [facility] Comment on above: Performed By: #### P T, PTT, LIPA, CMP, MG1, CBCDIF #### [facility] [address] [place] [address] ALT [Catalytic activity/Vol] 27 U/L Normal 7-38 [facility] Comment on above: Performed By: #### P T, PTT, LIPA, CMP, MG1, CBCDIF #### [facility] [address] [place] [address] Anion gap [Moles/Vol] 10 mmol/L Normal 9-18 [facility] Comment on above: Performed By: #### P T, PTT, LIPA, CMP, MG1, CBCDIF #### [facility] [address] [place] [address] AST [Catalytic activity/Vol] 23 U/L Normal 13-35 [facility] Comment on above: Performed By: #### P T, PTT, LIPA, CMP, MG1, CBCDIF #### [facility] [address] [phone] Bilirubin [Mass/Vol] 0.3 mg/dL Normal 0.2-1.3 [facility] Comment on above: Performed By: #### P T, PTT, LIPA, CMP, MG1, CBCDIF #### [facility] [address] [facility] [phone] Calcium [Mass/Vol] 9.0 mg/dL Normal 8.5-10.2 [facility] Comment on above: Performed By: #### P T, PTT, LIPA, CMP, MG1, CBCDIF #### [facility] [address] [phone] Chloride [Moles/Vol] 103 mmol/L Normal 97-105 [facility] Comment on above: Performed By: #### P T, PTT, LIPA, CMP, MG1, CBCDIF #### [facility] [address] [facility] [phone] CO2 [Moles/Vol] 23 mmol/L Normal 22-30 [facility] Comment on above: Performed By: #### P T, PTT, LIPA, CMP, MG1, CBCDIF #### [facility] [address] [facility] [phone] Creatinine [Mass/Vol] 0.53 mg/dL Low 0.58-0.96 [facility] Comment on above: Performed By: #### P T, PTT, LIPA, CMP, MG1, CBCDIF #### [facility] [address] [phone] eGFR- Amer. >60 Normal [facility] Comment on above: Performed By: #### P T, PTT, LIPA, CMP, MG1, CBCDIF #### [facility] [address] [facility] [phone] GFR/1.73 sq M predicted among non-blacks MDRD (S/P/Bld) [Vol rate/Area] mL/min/{1.73_m2} Normal [facility] Comment on above: Result Comment: eGFR (Estimated GFR) Units of measure: mL/min/1.73 meters squared eGFR is derived from the reexpressed MDRD Study equation using the following parameters: serum creatinine, age, gender and race. The creatinine assay has been calibrated to be traceable to IDMS. An eGFR <60 mL/min/1.73m2 for >3 months is consistent with chronic kidney disease. Refer to KDOQI guidelines for clinical interpretation. In patients with unstable renal function, e.g. those with acute kidney injury, the eGFR may not accurately reflect actual GFR. Performed By: #### P T, PTT, LIPA, CMP, MG1, CBCDIF #### [facility] [address] [facility] [phone] Glucose [Mass/Vol] 81 mg/dL Normal 74-99 [facility] Comment on above: Result Comment: The [place] [employer] (ADA) provides guidance for cutoff values for fasting glucose and random glucose. The ADA defines fasting as no caloric intake for at least 8 hours. Fasting plasma glucose results between 100 to 125 mg/dL indicate increased risk for diabetes (prediabetes). Fasting plasma glucose results greater than or equal to 126 mg/dL meet the criteria for diagnosis of diabetes. In the absence of unequivocal hyperglycemia, results should be confirmed by repeat testing. In a patient with classic symptoms of hyperglycemia or hyperglycemic crisis, random plasma glucose results greater than or equal to 200 mg/dL meet the criteria for diagnosis of diabetes. Reference: Standards of Medical Care in Diabetes 2016, [place] [employer]. Diabetes Care. 2016.39(Suppl 1). Performed By: #### P T, PTT, LIPA, CMP, MG1, CBCDIF #### [facility] [address] [place] [address] Potassium [Moles/Vol] 4.4 mmol/L Normal 3.7-5.1 [facility] Comment on above: Performed By: #### P T, PTT, LIPA, CMP, MG1, CBCDIF #### [facility] [address] [facility] [phone] Protein [Mass/Vol] 7.0 g/dL Normal 6.3-8.0 [facility] Comment on above: Performed By: #### P T, PTT, LIPA, CMP, MG1, CBCDIF #### [facility] [address] [facility] [phone] Sodium [Moles/Vol] 136 mmol/L Normal 136-144 [facility] Comment on above: Performed By: #### P T, PTT, LIPA, CMP, MG1, CBCDIF #### [facility] [address] [facility] [phone] Urea nitrogen [Mass/Vol] 7 mg/dL Normal 7-21 [facility] Comment on above: Performed By: #### P T, PTT, LIPA, CMP, MG1, CBCDIF #### [facility] [address] [facility] [phone] ED NOTEon 11-03-2020 ED NOTE HNO ID: [id number] Author: Ainsley GaytanRn) MIRNA Asif Service: ? Author Type: Registered Nurse Type: ED Notes Filed: 11/03/2020 5:33 PM Note Text: Discharge instructions reviewed with patient via teachback. Pt awake and alert, respirations regular and unlabored. Pt verbalizes understanding. No further questions for this RN. [facility] ED NOTE HNO ID: [id number] Author: Ainsley GaytanRn) MIRNA Asif Service: ? Author Type: Registered Nurse Type: ED Notes Filed: 11/03/2020 3:56 PM Note Text: Dr. Asif at bedside to speak with pt. Pt states she does not like how she feels after the IV benadryl and she does not want the Reglan. [facility] ED NOTE HNO ID: [id number] Author: Essence GaytanRn) MIRNA Talbert Service: Nursing Author Type: Registered Nurse Type: ED Notes Filed: 11/03/2020 3:14 PM Note Text: Pt presents to ED with c/o syncopal episode and vomiting. Pt states she was with her aunt and passed out. She woke up and has been constantly vomiting. States she doesn't feel well. She is 15-16 weeks [facility] ED PROV NOTEon 11-03-2020 ED PROV NOTE HNO ID: [id number] Author: Claudio Asif MD Service: ? Author Type: Physician Type: ED Provider Notes Filed: 11/03/2020 5:28 PM Note Text: ED Provider Note Patient Name: Rosalva Huang SERVICE DATE: 11/03/20 History Patient presents with: Syncope Vomiting HPI Ms. Huang is a 30 yo F @ 15 wk 4 d by first semester ultrasound, has had issues with near syncope and even syncope at times before during vagal stimulations, such as getting bladder being with her dog at the [facility], over the years, somewhat more lightheaded in the context of nausea with her , now presenting after she actually passed out. She was a little lightheaded before. She has not had any focal chest pain, though her nipples and breasts are starting to become more sensitive and bothering her a bit during the . She has had the sensation that her stomach is becoming bigger, but no focal abdominal discomfort. She has not had new dysuria or urinary frequency or hematuria. No new vaginal bleeding or discharge. She has not had high fevers or chills or cough. She has not had chest pain or trouble breathing. She is following with Dr. Josselin Culver out of [facility]. 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 . - Emphysema Paternal Grandfather - Diabetes Other maternal side Social History Tobacco Use - Smoking status: Never Smoker - Smokeless tobacco: Never Used - Tobacco comment: Pt denies Substance and Sexual Activity - Alcohol use: No - Drug use: No Comment: Pt denies - Sexual activity: Yes Partners: Male control/protection: None ALLERGIES Allergen Reactions - Chocolate Rash - Caffeine Rash - Melatonin Shortness of Breath - Adhesive Tape (Rita* Rash, Itching Patient reports unable to tolerate band-aids after a procedure. She noted redness and itching at site of band aid. - Mosquitos Swelling - Phenergan [Prometha* GI Upset - Sunscreen Rash Tingle tanning lotion - Zyrtec [Cetirizine * Other: See Comments Made her very drowsy, Review of Systems Constitutional: Positive for fatigue. Negative for chills and fever. HENT: Negative for ear pain, rhinorrhea and sore throat. Respiratory: Negative for cough and shortness of breath. Cardiovascular: Negative for chest pain and leg swelling. Gastrointestinal: Positive for nausea and vomiting. Negative for abdominal pain and diarrhea. Genitourinary: Negative for dysuria, flank pain, frequency, hematuria, vaginal bleeding and vaginal discharge. Musculoskeletal: Negative for back pain. Skin: Negative for rash. Neurological: Positive for syncope and light-headedness. Negative for speech difficulty, weakness, numbness and headaches. Psychiatric/Behavioral: Negative for hallucinations and suicidal ideas. Physical Exam BP 110/64 Pulse 79 Temp (Src) 98.7 (Oral) Resp 24 Wt 124 lb 8 oz (56.5kg) SpO2 100% LMP 07/19/2020 O2 Therapy: Room Air Physical Exam Vitals and nursing note reviewed. Constitutional: General: She is not in acute distress. Appearance: She is well-developed. HENT: Head: Normocephalic and atraumatic. Eyes: Pupils: Pupils are equal, round, and reactive to light. Neck: Trachea: No tracheal deviation. Cardiovascular: Rate and Rhythm: Normal rate. Heart sounds: No murmur. No friction rub. No gallop. Pulmonary: Effort: Pulmonary effort is normal. No respiratory distress. Breath sounds: Normal breath sounds. No wheezing or rales. Abdominal: General: Bowel sounds are normal. There is no distension. Palpations: Abdomen is soft. Tenderness: There is no abdominal tenderness. There is no guarding or rebound. Comments: No focal tenderness, gravid w/ uterus below umbilicus Musculoskeletal: General: Normal range of motion. Cervical back: Normal range of motion and neck supple. Lymphadenopathy: Cervical: No cervical adenopathy. Skin: General: Skin is warm and dry. Findings: No erythema. Neurological: Mental Status: She is alert and oriented to person, place, and time. Cranial Nerves: No cranial nerve deficit. Motor: No abnormal muscle tone. Comments: AANDOx4, CN intact, VF's intact, no dysmetria upper extremities, gait intact, no unilateral weakness/numbness/aphasia /dysarthria Psychiatric: Behavior: Behavior normal. Thought Content: Thought content normal. Judgment: Judgment normal. Diagnostic Testing ED Labs Ordered and Reviewed COMP METABOLIC PANEL MAGNESIUM BLD LIPASE BLD CBC + DIFF PROTHROMBIN TIME/PT ACTIVATED PTT TROPONIN T NT PRO BNP URINALYSIS Procedures ED Course / Clinical Impression ED Course as of Nov 03 1727 Claudio Asif's Documentation Sat Nov 03, 2020 1521 ECG NSR @ 75 bpm no STEMI Clinical Impressions as of Nov 03 1727 , excessive vomiting Dehydration Syncope and collapse MDM / Disposition / Plan MDM Course: Vital signs were reviewed. Triage records were reviewed. Medical records were reviewed. Nursing notes were reviewed and incorporated. Intravenous fluids were given. The following medications were administered: Benadryl (declined Reglan) Patient placed on monitor ECG reviewed and interpreted as above - also no WPW or Brugada or long QT. Labs reviewed and interpreted as below. Medical Decision Making: Differential diagnosis: Vasovagal or hypovolemic syncope, clinically unlikely PE with 100% room air oxygen saturation and lack of focal chest discomfort or trouble breathing or respiratory focal symptoms, clinically less likely dissection, clinically unlikely subarachnoid hemorrhage, clinically unlikely dissection, possible UTI, though unlikely, checking given , electrolyte disarray, anemia, certainly having some nausea with her , does not sound like outside of the appropriate/usual range. Assessment and plan: Ms. Huang is a 30-year-old female at 15 weeks and 4 days now presenting with syncope and ongoing nausea. We will give fluids and do a brief work-up and likely ask her to follow-up closely with Dr. Culver. UA 3+ ketonuria, WBC 11.8 likely physiologic in , otherwise reassuring. She feels great at this point, would like to go home. I think reasonable, asked her to return if worse, f/u eva otherwise. The attending who evaluated and managed this patient was Claudio Asif . Plan: The patient was discharged home with verbal and written instructions. They were instructed to return as needed for persistent or worsening symptoms or any new concerns. Consent: A procedure or transfusion was performed - No Claudio Asif MD SIGNATURE: MD Claudio Shah MD 11/03/20 1728 Normal [facility] Lipaseon 11-03-2020 Lipase [Catalytic activity/Vol] 29 U/L Normal 16-61 [facility] Comment on above: Performed By: #### P T, PTT, LIPA, CMP, MG1, CBCDIF #### [facility] [address] [phone] Magnesiumon 11-03-2020 Magnesium [Mass/Vol] 2.0 mg/dL Normal 1.7-2.3 [facility] Comment on above: Performed By: #### P T, PTT, LIPA, CMP, MG1, CBCDIF #### [facility] [address] NT Pro BNPon 11-03-2020 PRO B Natr Peptide 39 pg/mL Normal <125 [facility] Comment on above: Performed By: #### N TBNP ####[facility] [address] [place], [place] [phone] Protimeon 11-03-2020 PT Coag (PPP) [Time] 10.1 s Normal 9.7-13.0 [facility] Comment on above: Performed By: #### P T, PTT, LIPA, CMP, MG1, CBCDIF #### [facility] [address] [place] [phone] PT Coag (PPP) [Time] 1.0 s Normal 0.9-1.3 [facility] Comment on above: Result Comment: Em min K Antagonist (VKA) Therapeutic Range: INR 2 to 3 (Target INR of 2.5) Note: For patients treated with VKA drugs, such as warfarin, the [place] [employer] 2012 Guideline recommends a therapeutic INR range of 2 to 3 (target INR of 2.5). This recommendation includes high-risk patients with antiphospholipid syndrome with previous arterial or venous thromboembolism, current-generation mechanical or bioprosthetic aortic heart valve replacement. Note: Patients with mechanical aortic valve replacement and additional risk factors for thromboembolic events (atrial fibrillation, previous thromboembolism, LV dysfunction, hypercoagulable conditions) or an older generation mechanical AVR (i.e., ball in-Cage) or any mechanical MVR should have a INR therapeutic range of 2.5 to 3.5 (target INR of 3). Anthony GH, et al. Chest 2012, 141:7S-47S Tomer RA, et al. [facility] 2017, 70: 252-289 Performed By: #### P T, PTT, LIPA, CMP, MG1, CBCDIF #### [facility] [address] [address] Troponin Ton 11-03-2020 Troponin T.cardiac [Mass/Vol] ug/L Normal 0.000-0.029 [facility] Comment on above: Performed By: #### T NT #### [facility] [address] [address] Urinalysison 11-03-2020 Bilirubin, Urine Negative Normal Negative [facility] Comment on above: Performed By: #### U A #### [facility] [address] [address] Clarity (U) Clear Normal Clear [facility] Comment on above: Performed By: #### U A #### [facility] [address] [place] [address] Color (U) Yellow Normal Yellow [facility] Comment on above: Performed By: #### U A #### [facility] [address] [place] [address] Glucose Ql (U) Negative Normal Negative [facility] Comment on above: Performed By: #### U A #### [facility] [address] [place] [address] Hemoglobin/Blood,Ur Negative Normal Negative [facility] Comment on above: Performed By: #### U A #### [facility] [address] [place] [address] Ketones Ql (U) 3+ Critically abnormal Negative [facility] Comment on above: Performed By: #### U A #### [facility] [address] [place] [address] Leukest Negative Normal Negative [facility] Comment on above: Performed By: #### U A #### [facility] [address] [place] [address] Nitrite Ql (U) Negative Normal Negative [facility] Comment on above: Performed By: #### U A #### [facility] [address] [place] [address] pH (Bld) 6.0 Normal 5.0-8.0 [facility] Comment on above: Performed By: #### U A #### [facility] [address] [place] [address] Protein (U) [Mass/Vol] Negative Normal Negative [facility] Comment on above: Performed By: #### U A #### [facility] [address] [facility] [phone] Specific Spencer, Ur 1.020 Normal 1.005-1.030 [facility] Comment on above: Performed By: #### U A #### [facility] [address] [facility] [phone] Urobilinogen Qn (U) 0.2 E.U./dL Normal 0.2-1.0 [facility] Comment on above: Performed By: #### U A #### [facility] [address] [facility] [phone] C URINEon 06-12-2020 C URINE [facility] [address] [place] [phone] Name: ROSALVA HUANG : 1990 Admitting Provider: Gender: Female [facility] [id number] Number: Location: [facility]; IN06; 1 Admit 06/10/2020 Date: Discharge 06/10/2020 Date: Microbiology PROCEDURE: C URINE SOURCE: CLEAN CATCH BODY SITE: COLLECTED DATE/TIME: 06/10/2020 17:22 EDT RECEIVED DATE/TIME: 06/11/2020 07:12 EDT START DATE/TIME: 06/11/2020 07:12 EDT FREE TEXT SOURCE: ORDERING PHYSICIAN: DEVONTE CROWLEY MD FINAL REPORTS Final Report [] Verified Date/Time: 06/12/2020 09:05 EDT No growth after 24 hours. L=Low, H= High, *= Abnormal, C=Critical, f=Footnote, c=Corrected, i=Interp Data Name: ROSALVA HUANG Print Date06/12/2020 09:05 EDT Time: Normal [facility] Comment on above: Performed By: #### 1 [id number] #### [facility] [address] [place] [address] [employer] Head: Zach Jung MD GP CHLAMon 06-11-2020 Genprobe Chlamydia Negative Normal [facility] Comment on above: Result Comment: This Chlamydia assay is being performed via a second generation NAAT that utilizes target capture, workshop manager mediated amplification and dual kenetic assay technologies. Performed By: #### 1 [id number] #### [facility] [address] [place] [address] [employer] Head: Zach Jung MD GP GCon 06-11-2020 Genprobe GC Negative Normal [facility] Comment on above: Result Comment: This Gonorrhoea assay is being performed via a second generation NAAT that utilizes target capture, workshop manager mediated amplification and dual kenetic assay technologies. Performed By: #### 1 [id number], [id number] #### [facility] [address] [place] [address] [employer] Head: Zach Jung MD ED Physician Reporton 2019 ED Physician Report Patient: JAKE HUANG Age: 30 years Sex: Female : 1990 Associated Diagnoses: Vaginal discharge; Dysuria; Acute UTI Author: DEVONTE CROWLEY MD Basic Information History source: Patient. Arrival mode: Per nursing note. Time Seen: DEVONTE CROWLEY MD / 06/10/2020 17:54 History of Present Illness . Patient is a 30-year-old female with no reported medical history who presents the emergency department with chief complaint of dysuria. Patient reports she has been experiencing painful urination for the last week. She reports that she saw her operations research group manager at the onset of her symptoms and had a normal pelvic exam. She reports that she was started on an unknown clear antibiotic for 3 days without improvement. She was notified that she tested negative for gonorrhea and chlamydia, but was positive for bacterial vaginosis for which she was started on Flagyl gel. Patient reports that her symptoms have persisted and she saw in emergency department 2 days ago where she was started on ketorolac. Patient reports persistent symptoms so she seeks reevaluation. Patient is reporting a fever T-max 102 at home. Patient is also reporting some clear discharge from the vagina. No vaginal bleeding.. Review of Systems Constitutional symptoms: Negative except as documented in HPI. Skin symptoms: Negative except as documented in HPI. Eye symptoms: Negative except as documented in HPI. ENMT symptoms: Negative except as documented in HPI. Respiratory symptoms: Negative except as documented in HPI. Cardiovascular symptoms: Negative except as documented in HPI. Gastrointestinal symptoms: Negative except as documented in HPI. Genitourinary symptoms: Negative except as documented in HPI. Musculoskeletal symptoms: Negative except as documented in HPI. Neurologic symptoms Negative except as documented in HPI. Additional review of systems information: 09/05 Review of Systems completed and is negative except as stated in HPI.. Health Status Allergies: Allergic Reactions (All) No Known Allergies. Medications: Per nurse's notes. Immunizations: Per nurse's notes. Nursing Note: I have reviewed the relevant nursing notes that were available at the time of this entry. Portions of the Family and Social history, as well as medications and allergies, may have been entered into my documentation by nursing or other ancillary staff; I have confirmed and may have supplemented that information to the best of my ability at the time the note was reviewed. There are some disagreements between the nursing notes and my evaluation at times. Some of the above referenced nursing documentation appears in my note after completion of my review. Past Medical/ Family/ Social History Medical history: No active or resolved past medical history items have been selected or recorded.. Surgical history: No active procedure history items have been selected or recorded.. Family history: No family history items have been selected or recorded.. Social history: Alcohol use, Tobacco use, Drug use. Problem list: Active Problems (1) Bacterial vaginosis . Physical Examination Vital Signs Genitourinary: RN nelson Pickett present throughout exam, External genitalia: Normal, Speculum exam: Discharge white, no tenderness, Bimanual exam: Normal. Physical Exam: General/Const General/Const Awake, Alert, No acute distress, Not toxic appearing Eyes Eyes PERRL, EOMI MS Neck Neck Full range of motion, Non-tender Resp/Chest Respiratory/Chest Breath sounds NL, Breath sounds = bilat, No respiratory distress Cardiovascular Cardiovascular Heart rate NL, Regular rhythm, Heart sounds NL, Peripheral circulation NL Abdomen/GI Abdomen/GI Non-tender, Soft, No guarding, No rebound MS Back Back Inspection NL, No CVA tenderness MS Lower Extrem Lower Ext/Pelvis/MS No swelling, Non-tender Skin Skin Warm, Dry Neurologic Neurologic Oriented X3, Speech NL, No focal motor or sensory deficit, CN II-XII grossly intact Peripheral Pulse Rate: 105 bpm High (06/10/20 16:38:00) Respiratory Rate: 16 br/min (06/10/20 16:38:00) Systolic Blood Pressure: 118 mmHg (06/10/20 16:38:00) Diastolic Blood Pressure: 73 mmHg (06/10/20 16:38:00) Medical Decision Making Electrocardiogram: Last 24 Hours Urine Analysis Color, U Yasmin 06/10/20 Appearance, U Clear 06/10/20 Specific Spencer, U 1.026 06/10/20 pH, U 5.0 06/10/20 Protein, U 30 mg/dl 06/10/20 Glucose Qual, U Negative 06/10/20 Ketones, U Trace 06/10/20 Bilirubin, U Negative 06/10/20 Blood, U Negative 06/10/20 Urobilinogen Qual, U 4.0 mg/dl 06/10/20 Nitrite, U Positive 06/10/20 Leukocyte Esterase, U Negative 06/10/20 RBC/HPF, U 6 #/HPF 06/10/20 WBC/HPF, U 11 #/HPF 06/10/20 Squamous Epithelial Cells, U 1 #/HPF 06/10/20 Bacteria, U Few 06/10/20 Mucous, U Many 06/10/20 Test, U Negative 06/10/20 No qualifying data available. MDM- Previously healthy 30-year-old female presenting with dysuria and vaginal discharge over the last week. Patient has to date completed a antibiotic course for UTI prescribed by her operations research group manager and is applying metronidazole gel for bacterial vaginosis. She was prescribed Pyridium and ketorolac from an outside emergency department as well but reports persistent symptoms. Patient with moderate white discharge on pelvic exam. Offered empiric sexually-transmitted disease treatment given her persistent symptoms despite multiple treatments and she agrees. She was ordered IM Rocephin, p.o. azithromycin, and p.o. Flagyl. UA demonstrates findings consistent with persistent UTI. Will discharge with prescription for Bactrim. Patient is advised to follow-up with her operations research group manager to ensure resolution. She is advised to return to the emergency department if she develops any new or worsening symptoms. She agrees with this plan. Reexamination/ Reevaluation Course: improving. Notes: The patient was reassesed prior to dispostion and is stable. . Impression and Plan Diagnosis Vaginal discharge (IQZ70-EK N89.8, Working, Medical) Dysuria (YLS97-EK R30.0, Working, Medical) Acute UTI (LQV54-VQ N39.0, Working, Medical) Plan Condition: Improved, Stable. Disposition: Discharged: Time 06/10/2020 19:14:00, to home. Prescriptions: Launch prescriptions Pharmacy: [facility] 800 mg-160 mg oral tablet (Prescribe): 1 tabs, ORAL, [id number], for 10 days, Dosage expressed as trimethoprim, 20 tabs, 0 Refill(s). Patient was given the following educational materials: Urinary Tract Infection, Adult, Urinary Tract Infection, Adult. Follow up with: ; Your SPECIAL EDUCATION COORDINATOR Within 3 to 5 days. Counseled: Patient, Family, Regarding diagnosis, Regarding diagnostic results, Regarding treatment plan, Regarding prescription, Patient/family understood. Addendum Scribe Attestation- In the case in which a scribe was involved with the documentation of this case, I personally performed the services described in that documentation, I reviewed and edited the documentation which was dictated to the scribe in my presence, and it accurately records my words and actions. Normal [facility] ED Progress Noteon 0 ED Progress Note Pt to ED c/o worseni ng symptoms of painful urination, fever, chills, and clear vaginal discharge. Pt sts she was treated for bacterial vaginosis a few days ago, but it is not getting any better, but instead sts it is getting worse. 2019 Discharge instructions and prescriptions reviewed with pt. NO questions or concerns noted at this time. Pt discharged Normal [facility] U TESTon 0 Test, U Negative Normal [facility] Comment on above: Performed By: #### 1 [id number] #### [facility] [address] [place] [id number] [employer] Head: Zach Jung MD U Preg Internal QC Present Normal [facility] Comment on above: Performed By: #### 1 [id number] #### [facility] [address] [place] [address] 47793 [employer] Head: Zach Jung MD UAon 06-10-2020 U MICRO Indicated Normal [facility] Comment on above: Performed By: #### 1 [id number] #### [facility] [address] [place] [address] 10163 [employer] Head: Zach Jung MD Appearance, U Clear Normal [facility] Comment on above: Performed By: #### 1 [id number] #### [facility] [address] [place] [address] 19720 [employer] Head: Zach Jung MD Bacteria, U Few Normal [facility] Comment on above: Performed By: #### 1 [id number] #### [facility] [address] [place] [address] 25969 [employer] Head: Zach Jung MD Bilirubin, U Negative Normal Negative [facility] Comment on above: Performed By: #### 1 [id number] #### [facility] [address] [place] [address] 31395 [employer] Head: Zach Jung MD Blood, U Negative Normal Negative [facility] Comment on above: Performed By: #### 1 [id number] #### [facility] [address] [place] [address] 65243 [employer] Head: Zach Jung MD Color, U Yasmin Normal [facility] Comment on above: Performed By: #### 1 [id number] #### [facility] [address] [place] [address] 21295 [employer] Head: Zach Jung MD Glucose Qual, U Negative Normal Negative [facility] Comment on above: Performed By: #### 1 [id number] #### [facility] [address] [place] [address] 64881 [employer] Head: Zach Jung MD Ketones, U Trace Abnormal Negative [facility] Comment on above: Performed By: #### 1 [id number] #### [facility] [address] [place] [address] 16593 [employer] Head: Zach Jung MD Leukocyte Esterase, U Negative Normal Negative [facility] Comment on above: Performed By: #### 1 [id number] #### [facility] [address] [place] [address] 38485 [employer] Head: Zach Jung MD Mucous, U Many Normal [facility] Comment on above: Performed By: #### 1 [id number] #### [facility] [address] [place] [address] 71361 [employer] Head: Zach Jung MD Nitrite, U Positive Abnormal Negative [facility] Comment on above: Performed By: #### 1 [id number] #### [facility] [address] [place] [address] 84874 [employer] Head: Zach Jung MD pH, U 5.0 Normal 4.5-8.0 [facility] Comment on above: Performed By: #### 1 [id number] #### [facility] [address] [place] [address] 34778 [employer] Head: Zach Jung MD Protein, U 30 mg/dl Abnormal Negative [facility] Comment on above: Performed By: #### 1 [id number] #### [facility] [address] [place] [address] 32211 [employer] Head: Zach Jung MD RBC/HPF, U 6 #/HPF High 0-3 [facility] Comment on above: Performed By: #### 1 59165 #### [facility] [address] [place] [address] 44881 [employer] Head: Zach Jung MD Specific Spencer, U 1.026 Normal 1.001-1.035 [facility] Comment on above: Performed By: #### 1 04877 #### [facility] [address] [place] [address] 72441 [employer] Head: Zach Jung MD Squamous Epithelial Cells, U 1 #/HPF Normal [facility] Comment on above: Performed By: #### 1 51512 #### [facility] [address] [place] [address] 58873 [employer] Head: Zach Jung MD Urobilinogen Qual, U 4.0 mg/dl Abnormal <2.0 mg/dl [facility] Comment on above: Result Comment: EU/d l and mg/dl are equivalent units. Performed By: #### 1 [id number] #### [facility] [address] [place] [address] 36369 [employer] Head: Zach Jung MD WBC/HPF, U 11 #/HPF High 0-5 [facility] Comment on above: Performed By: #### 1 [id number] #### [facility] [address] [place] [address] 60746 [employer] Head: Zach Jung MD [facility] 06-08-2020 [facility] HNO ID: [id number] Author: Sophie Juares (Rt) Service: Radiology Author Type: Benefits Analyst Type: Allied Health Filed: 06/08/2020 3:34 PM Note Text: Radiology Service Progress Note PATIENT NAME: Rosalva Huang DATE OF SERVICE: June 08, 2020 TIME: 3:33 PM PATIENT IDENTITY VERIFICATION COMPLETED USING TWO (2) IDENTIFIERS: Name and Date of confirmed by patient verbally. FALL SCREENING: Has the patient had 2 falls in the last year or 1 fall with injury or currently using an Ambulatory Assistive Device (Walker, Cane, Wheelchair, Crutches, etc.)? Inpatient: Screened on floor PATIENT GENDER DATA: Female. status: : No status: NO. PATIENT RELEVANT IMPLANT DATA REVIEWED: Not Applicable RADIOLOGY DEPARTMENT: Ultrasound PERIPHERAL IV DATA: Not applicable SIGNED BY: Sophie Juares RDMS June 08, 2020 3:33 PM Normal [facility] CBC and Differentialon 06-08 Abs Baso <0.03 Normal <0.11 [facility] Comment on above: Performed By: #### C BCDIF, CMP #### [place] [address] Abs Vilas 0.58 k/uL Normal <0.87 [facility] Comment on above: Performed By: #### C BCDIF, CMP #### [place] [address] Abs Neut 2.61 k/uL Normal 1.45-7.50 [facility] Comment on above: Performed By: #### C BCDIF, CMP #### [place] [address] Absolute nRBC <0.01 Normal <0.01 [facility] Comment on above: Performed By: #### C BCDIF, CMP #### [place] [address] Basophils/100 WBC (Bld) 0.5 % [facility] Comment on above: Performed By: #### C BCDIF, CMP #### [place] [address] DTYPE Auto Diff [facility] Comment on above: Performed By: #### C BCDIF, CMP #### [place] [address] Eosinophils (Bld) [#/Vol] 10*3/uL Normal <0.46 [facility] Comment on above: Performed By: #### C BCDIF, CMP #### [place] [address] Eosinophils/100 WBC (Bld) 0.5 % [facility] Comment on above: Performed By: #### C BCDIF, CMP #### [place] [address] Erythrocyte distribution width (RBC) [Ratio] 12.9 % Normal 11.5-15.0 [facility] Comment on above: Performed By: #### C PATTI CMP #### [place] [address] Hematocrit (Bld) [Volume fraction] 44.5 % Normal 36.0-46.0 [facility] Comment on above: Performed By: #### C PATTI, CMP #### [place] [address] Hemoglobin (Bld) [Mass/Vol] 14.8 g/dL Normal 11.5-15.5 [facility] Comment on above: Performed By: #### C PTATI, CMP #### [place] [address] Lymphocytes (Bld) [#/Vol] 1.07 10*3/uL Normal 1.00-4.00 [facility] Comment on above: Performed By: #### C BCSTEPHANIE, CMP #### [place] [address] Lymphocytes/100 WBC (Bld) 24.8 % Normal [facility] Comment on above: Performed By: #### C PATTI, CMP #### [place] [address] MCH (RBC) [Entitic mass] 30.3 pG Normal 26.0-34.0 [facility] Comment on above: Performed By: #### C BCSTEPHANIE, CMP #### [place] [address] MCHC (RBC) [Mass/Vol] 33.3 g/dL Normal 30.5-36.0 [facility] Comment on above: Performed By: #### C BCSTEPHANIE, CMP #### [place] [address] MCV (RBC) [Entitic vol] 91.0 fL Normal 80.0-100.0 [facility] Comment on above: Performed By: #### C BCSTEPHANIE, CMP #### [place] [address] Monocytes/100 WBC (Bld) 13.4 % Normal [facility] Comment on above: Performed By: #### C BCMARY ANNEF, CMP #### [place] [address] Neutrophils/100 WBC (Bld) 60.8 % Normal [facility] Comment on above: Performed By: #### C BCMARY ANNEF, CMP #### [place] [address] NRBCs 0.0 /100 WBC Normal 0 [facility] Comment on above: Performed By: #### C BCSTEPHANIE, CMP #### [place] [address] Platelet mean volume (Bld) [Entitic vol] 10.4 fL Normal 9.0-12.7 [facility] Comment on above: Performed By: #### C BCMARY ANNEF, CMP #### [place] [address] Platelets (Bld) [#/Vol] 219 10*3/uL Normal 150-400 [facility] Comment on above: Performed By: #### C BCMARY ANNEF, CMP #### [place] [address] RBC (Bld) [#/Vol] 4.89 10*6/uL Normal 3.90-5.20 [facility] Comment on above: Performed By: #### C BCDIF, CMP #### [place] [address] WBC (Bld) [#/Vol] 4.32 10*3/uL Normal 3.70-11.00 [facility] Comment on above: Performed By: #### C BCDIF, CMP #### [place] [address] Comp Metabolic Panelon 06-08 Albumin [Mass/Vol] 4.5 g/dL Normal 3.9-4.9 [facility] Comment on above: Performed By: #### C BCDIF, CMP #### [place] [address] ALP [Catalytic activity/Vol] 73 U/L Normal 34-123 [facility] Comment on above: Performed By: #### C BCDIF, CMP #### [place] [address] ALT [Catalytic activity/Vol] 19 U/L Normal 7-38 [facility] Comment on above: Performed By: #### C BCDIF, CMP #### [place] [address] Anion gap [Moles/Vol] 11 mmol/L Normal 9-18 [facility] Comment on above: Performed By: #### C BCDIF, CMP #### [place] [address] AST [Catalytic activity/Vol] 24 U/L Normal 13-35 [facility] Comment on above: Performed By: #### C BCDIF, CMP #### [place] [address] Bilirubin [Mass/Vol] 0.2 mg/dL Normal 0.2-1.3 [facility] Comment on above: Performed By: #### C BCDIF, CMP #### [place] [address] Calcium [Mass/Vol] 9.1 mg/dL Normal 8.5-10.2 [facility] Comment on above: Performed By: #### C BCDIF, CMP #### [place] [address] Chloride [Moles/Vol] 102 mmol/L Normal 97-105 [facility] Comment on above: Performed By: #### C BCDIF, CMP #### [place] [address] CO2 [Moles/Vol] 23 mmol/L Normal 22-30 [facility] Comment on above: Performed By: #### C BCDIF, CMP #### [place] [address] Creatinine [Mass/Vol] 0.98 mg/dL High 0.58-0.96 [facility] Comment on above: Performed By: #### C BCDIF, CMP #### [place] [address] eGFR- Amer. >60 Normal >60 [facility] Comment on above: Performed By: #### C BCDIF, CMP #### [place] [address] GFR/1.73 sq M predicted among non-blacks MDRD (S/P/Bld) [Vol rate/Area] mL/min/{1.73_m2} Normal >60 [facility] Comment on above: Result Comment: eGFR (Estimated GFR) Units of measure: mL/min/1.73 meters squared eGFR is derived from the reexpressed MDRD Study equation using the following parameters: serum creatinine, age, gender and race. The creatinine assay has been calibrated to be traceable to IDMS. An eGFR <60 mL/min/1.73m2 for >3 months is consistent with chronic kidney disease. Refer to KDOQI guidelines for clinical interpretation. In patients with unstable renal function, e.g. those with acute kidney injury, the eGFR may not accurately reflect actual GFR. Performed By: #### C BCDIF, CMP #### [place] [address] Glucose [Mass/Vol] 85 mg/dL Normal 74-99 [facility] Comment on above: Performed By: #### C BCDIF, CMP #### [place] [address] Potassium [Moles/Vol] 3.8 mmol/L Normal 3.7-5.1 [facility] Comment on above: Performed By: #### C BCDIF, CMP #### [place] [address] Protein [Mass/Vol] 7.4 g/dL Normal 6.3-8.0 [facility] Comment on above: Performed By: #### C BCDIF, CMP #### [place] [address] Sodium [Moles/Vol] 136 mmol/L Normal 136-144 [facility] Comment on above: Performed By: #### C BCDIF, CMP #### [place] [address] Urea nitrogen [Mass/Vol] 12 mg/dL Normal 7-21 [facility] Comment on above: Performed By: #### C BCDIF, CMP #### [place] [address] ED NOTEon 06-08-2020 ED NOTE HNO ID: [id number] Author: Cassi GaytanRn) MIRNA Nguyen Service: Nursing Author Type: Registered Nurse Type: ED Notes Filed: 06/08/2020 4:18 PM Note Text: Reviewed all discharge instructions with patient including medications and the need for follow up. Pt verbalized understanding. [facility] ED NOTE HNO ID: [id number] Author: Wong GaytanRn) MIRNA Mendez Service: ? Author Type: Registered Nurse Type: ED Notes Filed: 06/08/2020 3:31 PM Note Text: Patient resting in bed, rise and fall of chest observed. Safety maintained and will continue to monitor [facility] ED NOTE HNO ID: [id number] Author: Dallas GaytanRn) MIRNA Engle Service: ? Author Type: Registered Nurse Type: ED Notes Filed: 06/08/2020 1:30 PM Note Text: Pt to ED for c/o Urinary issues. Pt states she was seen at her PCP on June 06 for same issue. Pt was tested for STD's and UA. Pt was prescribed Antibiotics for UTI and a Cream for BV. Pt states she is completing her ATB today, but feels worse. [facility] ED PROV NOTEon 06-08-2020 ED PROV NOTE HNO ID: [id number] Author: Josie Rossi MD Service: Emergency Medicine Author Type: Physician Type: ED Provider Notes Filed: 06/08/2020 3:57 PM Note Text: ED Provider Note Patient Name: Rosalva Huang SERVICE DATE: 06/08/20 History No chief complaint on file. HPI Pt is 30 year old female presenting to the emergency department with complaint of dysuria, lower abdominal and back discomfort. Symptoms have been present for 4 days. Patient complains of pelvic discomfort that is fairly severe, worse with attempting to urinate. She states she is not able to urinate because of the discomfort. She saw her HAND HEEL SEAT FITTER physician on 06/06, tested negative for GC/chlamydia, urine culture was ultimately negative. She did test positive for BV at that visit. Has been taking Bactrim with no improvement. Was just called and topical treatment for her BV today but came to the ED because she states she is feeling worse. 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 . - Emphysema Paternal Grandfather - Diabetes Other maternal side Social History Tobacco Use - Smoking status: Never Smoker - Smokeless tobacco: Never Used - Tobacco comment: Pt denies Substance and Sexual Activity - Alcohol use: No - Drug use: No Comment: Pt denies - Sexual activity: Yes Partners: Male control/protection: None ALLERGIES Allergen Reactions - Chocolate Rash - Melatonin Shortness of Breath - Adhesive Tape (Rita* Rash, Itching Patient reports unable to tolerate band-aids after a procedure. She noted redness and itching at site of band aid. - Mosquitos Swelling - Phenergan [Prometha* GI Upset - Sunscreen Rash Tingle tanning lotion - Zyrtec [Cetirizine * Other: See Comments Made her very drowsy, Review of Systems Constitutional: Negative. HENT: Negative. Eyes: Negative. Respiratory: Negative. Cardiovascular: Negative. Gastrointestinal: Negative. Genitourinary: See hpi Musculoskeletal: Negative. Skin: Negative. Neurological: Negative. Psychiatric/Behavioral: Negative. Physical Exam BP 125/82 Pulse 101 Temp (Src) 97.9 (Oral) Resp 18 SpO2 97% LMP 03/18/2020 O2 Therapy: Room Air Physical Exam Vitals signs and nursing note reviewed. Constitutional: Appearance: She is well-developed. HENT: Head: Normocephalic and atraumatic. Eyes: Pupils: Pupils are equal, round, and reactive to light. Neck: Musculoskeletal: Normal range of motion and neck supple. Cardiovascular: Rate and Rhythm: Normal rate and regular rhythm. Pulmonary: Effort: No respiratory distress. Breath sounds: No wheezing or rales. Abdominal: General: There is no distension. Palpations: Abdomen is soft. Tenderness: There is abdominal tenderness (mild, suprapubic). Musculoskeletal: General: No tenderness. Skin: General: Skin is warm and dry. Neurological: Mental Status: She is alert and oriented to person, place, and time. Cranial Nerves: No cranial nerve deficit. Motor: No abnormal muscle tone. Psychiatric: Behavior: Behavior normal. Diagnostic Testing ED Labs Ordered and Reviewed URINALYSIS WITH MICROSCOPIC (AK,AV,EU,FV,HL,MONSE,MM,SP) - Abnormal; Notable for the following components: Result Value Ref Range Bilirubin, Urine 1+ (*) Negative Hemoglobin/Blood,Ur Trace (*) Negative Protein, Urine Trace (*) Negative RBC, Urine 3-5 (*) 0 - 3 /HPF All other components within normal limits COMPREHENSIVE METABOLIC PANEL (AK,AV,EU,FV,HL,MONSE,MM,SP) - Abnormal; Notable for the following components: Creatinine 0.98 (*) 0.58 - 0.96 mg/dL All other components within normal limits HCG QUALITATIVE URINE (AK,AV,EU,FV,HL,MONSE,MM,SP) CBC + AUTO DIFF (AK,AV,EU,FV,HL,MONSE,MM,SP) US FEMALE PELVIS TRANSABD LTD Final Result IMPRESSION: No findings to indicate ovarian torsion. Benign 2.3 cm unilocular right ovarian cyst. Small amount of fluid in the endocervical canal. Beauty School Instructor: [facility] Transcribe Date/Time: Jun 08 2020 3:35P Dictated by : Diana STEARNS MD This examination was interpreted and the report reviewed and electronically signed by: Diana STEARNS MD on Jun 08 2020 3:46PM EST US FEMALE PELVIS TRANSVAG Final Result IMPRESSION: No findings to indicate ovarian torsion. Benign 2.3 cm unilocular right ovarian cyst. Small amount of fluid in the endocervical canal. Beauty School Instructor: [facility] Transcribe Date/Time: Jun 08 2020 3:35P Dictated by : Diana STEARNS MD This examination was interpreted and the report reviewed and electronically signed by: Diana STEARNS MD on Jun 08 2020 3:46PM EST US DOPPLER COMPLETE Final Result IMPRESSION: No findings to indicate ovarian torsion. Benign 2.3 cm unilocular right ovarian cyst. Small amount of fluid in the endocervical canal. Beauty School Instructor: [facility] Transcribe Date/Time: Jun 08 2020 3:35P Dictated by : Diana STEARNS MD This examination was interpreted and the report reviewed and electronically signed by: Diana STEARNS MD on Jun 08 2020 3:46PM EST Medications ketorolac 15 mg injection (TORADOL) (15 mg INTRAVENOUS Not Given 06/08/20 1430) NaCl 0.9% 1,000 mL iv bolus (1,000 mL INTRAVENOUS New Bag/Syringe/Bottle 06/08/20 1418) Procedures ED Course / Clinical Impression Clinical Impressions as of Jun 08 155 Cyst of right ovary Bacterial vaginosis MDM / Disposition / Plan MDM 30 year old female presenting to the emergency department with dysuria and back pain She is completing her course of Bactrim that was given empirically, urine culture negative She did test positive for Gardnerella, has prescription for topical metronidazole waiting for her at the pharmacy ED workup as above, she does have a 2.3 cm ovarian cyst on the right, with her history of endometriosis as may be contributing to her pain Rx Toradol, Pyridium Follow-up with HAND HEEL SEAT FITTER SIGNATURE: MD Josie Bautista MD 06/08/20 4997 Normal [facility] HCG Qual, Urineon 06-08-2020 Beta HCG ( test) Ql (U) Negative Normal Negative [facility] Comment on above: Performed By: #### U HCG, UAWMIC #### [facility] [address] [id number] US DOPPLER COMPLETEon 2019 US DOPPLER COMPLETE * * *Final Report* * * DATE OF EXAM: Jun 08 2020 3:32PM SUZETTE 1033 - US DOPPLER COMPLETE / PROCEDURE REASON: Torsion of ovary and ovarian pedicle * * * * Physician Interpretation * * * * EXAMINATION: TRANSVAGINAL AND LIMITED TRANSABDOMINAL PELVIC ULTRASOUND CLINICAL HISTORY: Torsion of ovary and ovarian pedicle. LMP 05/24/2020. TECHNIQUE: Sonography of the pelvis was performed by transvaginal and transabdominal (limited) techniques. Images were obtained and stored in a permanent archive. MQ: UFP_1 COMPARISON: 11/09/2013 RESULT: Uterus size: 8.3 x 3.3 x 4.1 cm -Orientation: Anteverted -Myometrium: Normal sonographic appearance. -Endometrial echo complex: 0.8 cm trilaminar -Cervix: Small amount of anechoic fluid in the endocervical canal Right ovary: 3.4 x 2.6 x 3.0 cm 2.3 cm unilocular cyst. Arterial and venous flow is present throughout the ovary on color Doppler imaging with normal spectral waveforms. Left ovary: 3.8 x 2.0 x 2.4 cm Normal sonographic appearance with physiologic follicles. Arterial and venous flow is present throughout the left ovary on color Doppler imaging with normal spectral waveforms. Pelvis free fluid: None. IMPRESSION: No findings to indicate ovarian torsion. Benign 2.3 cm unilocular right ovarian cyst. Small amount of fluid in the endocervical canal. Beauty School Instructor: PSCB Transcribe Date/Time: Jun 08 2020 3:35P Dictated by : Diana STEARNS MD This examination was interpreted and the report reviewed and electronically signed by: Diana STEARNS MD on Jun 08 2020 3:46PM EST [id number] [facility] US FEMALE PELVIS TRANSABD LT Don 06-08-2020 US FEMALE PELVIS TRANSABD LTD * * *Final Report* * * DATE OF EXAM: Jun 08 2020 3:32PM SUZETTE 1059 - US FEMALE PELVIS TRANSABD LTD / PROCEDURE REASON: Torsion of ovary and ovarian pedicle * * * * Physician Interpretation * * * * EXAMINATION: TRANSVAGINAL AND LIMITED TRANSABDOMINAL PELVIC ULTRASOUND CLINICAL HISTORY: Torsion of ovary and ovarian pedicle. LMP 05/24/2020. TECHNIQUE: Sonography of the pelvis was performed by transvaginal and transabdominal (limited) techniques. Images were obtained and stored in a permanent archive. MQ: UFP_1 COMPARISON: 11/09/2013 RESULT: Uterus size: 8.3 x 3.3 x 4.1 cm -Orientation: Anteverted -Myometrium: Normal sonographic appearance. -Endometrial echo complex: 0.8 cm trilaminar -Cervix: Small amount of anechoic fluid in the endocervical canal Right ovary: 3.4 x 2.6 x 3.0 cm 2.3 cm unilocular cyst. Arterial and venous flow is present throughout the ovary on color Doppler imaging with normal spectral waveforms. Left ovary: 3.8 x 2.0 x 2.4 cm Normal sonographic appearance with physiologic follicles. Arterial and venous flow is present throughout the left ovary on color Doppler imaging with normal spectral waveforms. Pelvis free fluid: None. IMPRESSION: No findings to indicate ovarian torsion. Benign 2.3 cm unilocular right ovarian cyst. Small amount of fluid in the endocervical canal. Beauty School Instructor: PSCB Transcribe Date/Time: Jun 08 2020 3:35P Dictated by : Diana STEARNS MD This examination was interpreted and the report reviewed and electronically signed by: Diana STEARNS MD on Jun 08 2020 3:46PM EST [id number] [facility] US FEMALE PELVIS TRANSVAGon 06-08-2020 US FEMALE PELVIS TRANSVAG * * *Final Report* * * DATE OF EXAM: Jun 08 2020 3:32PM SUZETTE 1060 - US FEMALE PELVIS TRANSVAG / PROCEDURE REASON: Torsion of ovary and ovarian pedicle * * * * Physician Interpretation * * * * EXAMINATION: TRANSVAGINAL AND LIMITED TRANSABDOMINAL PELVIC ULTRASOUND CLINICAL HISTORY: Torsion of ovary and ovarian pedicle. LMP 05/24/2020. TECHNIQUE: Sonography of the pelvis was performed by transvaginal and transabdominal (limited) techniques. Images were obtained and stored in a permanent archive. MQ: UFP_1 COMPARISON: 11/09/2013 RESULT: Uterus size: 8.3 x 3.3 x 4.1 cm -Orientation: Anteverted -Myometrium: Normal sonographic appearance. -Endometrial echo complex: 0.8 cm trilaminar -Cervix: Small amount of anechoic fluid in the endocervical canal Right ovary: 3.4 x 2.6 x 3.0 cm 2.3 cm unilocular cyst. Arterial and venous flow is present throughout the ovary on color Doppler imaging with normal spectral waveforms. Left ovary: 3.8 x 2.0 x 2.4 cm Normal sonographic appearance with physiologic follicles. Arterial and venous flow is present throughout the left ovary on color Doppler imaging with normal spectral waveforms. Pelvis free fluid: None. IMPRESSION: No findings to indicate ovarian torsion. Benign 2.3 cm unilocular right ovarian cyst. Small amount of fluid in the endocervical canal. Beauty School Instructor: ZACHARY Transcribe Date/Time: Jun 08 2020 3:35P Dictated by : Diana STEARNS MD This examination was interpreted and the report reviewed and electronically signed by: Diana STEARNS MD on Jun 08 2020 3:46PM EST [id number] Normal [facility] Urinalysis with Microscopico n 06-08-2020 Bilirubin, Urine 1+ Critically abnormal Negative [facility] Comment on above: Result Comment: Sugg est correlation with clinical findings and serum bilirubin if clinically indicated. Performed By: #### U HCG, UAWMIC #### [place] [address] Cast SEE COMMENT Normal 0 [facility] Comment on above: Result Comment: 0 Performed By: #### U HCG, UAWMIC #### [place] [address] Clarity (U) Clear Normal Clear [facility] Comment on above: Performed By: #### U HCG, UAWMIC #### [place] [address] Color (U) Yellow Normal Yellow [facility] Comment on above: Performed By: #### U HCG, UAWMIC #### [place] [address] Epithelial cells LM.HPF (Urine sed) [#/Area] SEE COMMENT Normal [facility] Comment on above: Result Comment: 5-10 Squamous Performed By: #### U HCG, UAWMIC #### [place] [address] Glucose Ql (U) Negative Normal Negative [facility] Comment on above: Performed By: #### U HCG, UAWMIC #### [place] [address] Hemoglobin/Blood,Ur Trace Critically abnormal Negative [facility] Comment on above: Performed By: #### U HCG, UAWMIC #### [place] [address] Ketones Ql (U) Negative Normal [facility] Comment on above: Performed By: #### U HCG, UAWMIC #### [place] [address] Leukest Negative Normal [facility] Comment on above: Performed By: #### U HCG, UAWMIC #### [place] [address] Nitrite Ql (U) Negative Normal [facility] Comment on above: Performed By: #### U HCG, UAWMIC #### [place] [address] pH (Bld) 6.0 Normal 5.0-8.0 [facility] Comment on above: Performed By: #### U HCG, UAWMIC #### [place] [address] Protein (U) [Mass/Vol] Trace Critically abnormal Negative [facility] Comment on above: Performed By: #### U HCG, UAWMIC #### [place] [address] RBC (U) [#/Vol] 3-5 Critically abnormal 0-3 [facility] Comment on above: Performed By: #### U HCG, UAWMIC #### [place] [address] Specific Spencer, Ur >=1.030 Normal 1.005-1.030 [facility] Comment on above: Performed By: #### U HCG, UAWMIC #### [address] [address] Urobilinogen Qn (U) 0.2 E.U./dL Normal 0.2-1.0 [facility] Comment on above: Performed By: #### U HCG, UAWMIC #### [address] [address] WBC (Bld) [#/Vol] 0-5 Normal 0-5 [facility] Comment on above: Performed By: #### U HCG, UAWMIC #### [address] [address] ED NOTEon 09-30-2019 ED NOTE HNO ID: [id number] Author: Sara GaytanRn) MIRNA Barney Service: Emergency Medicine Author Type: Registered Nurse Type: ED Notes Filed: 09/30/2019 2:29 AM Note Text: Pt here with R eye pain burning, and pressure x 1 day. Pt put refresh eye gtts in with no relief. Normal [facility] ED PROV NOTEon 09-30-2019 ED PROV NOTE HNO ID: [id number] Author: Albert Dailge MD Service: Emergency Medicine Author Type: Physician Type: ED Provider Notes Filed: 09/30/2019 3:21 AM Note Text: ED Provider Note Patient Name: Rosalva Huang SERVICE DATE: 09/30/19 History Patient presents with: Eye Complaint The patient is a 29 year old female with a significant past medical history of dry eyes, who presents to the ED for evaluation of right eye pain for the past day. The patient describes the pain as pressure and burning. Associated symptoms include clear discharge. The patient tried her eye drops without significant improvement. The patient does not wear contact lenses. Significant other had viral conjunctivitis 1 week ago. The patient denies fever, chills, nausea, vomiting, chest pain, dyspnea, foreign body sensation, or additional complaints. PAST MEDICAL HISTORY Diagnosis Date - Panic disorder without agoraphobia - PMH - PAST MEDICAL HISTORY OF color vision normal - PMH - PAST MEDICAL HISTORY OF vascular disease 01/2002 - PMH - PAST MEDICAL HISTORY OF wearing glasses and broke ankle at age 3, wrist fracture PAST SURGICAL HISTORY Procedure Laterality Date - 2D ECHO COMPLETE INP 01/03/2015 EF=67%, WNL - NONE FAMILY HISTORY Problem Relation Age of Onset - Asthma Mother - Psychiatry Mother Bi-Polar - Hypertension Maternal Grandmother - Heart Maternal Grandfather triple by pass heart diagnosed in 30's - Stroke Paternal Grandmother - Cancer Paternal Grandmother - Heart Paternal Grandfather heart attack. . - Emphysema Paternal Grandfather - Diabetes Other maternal side Social History Tobacco Use - Smoking status: Never Smoker - Smokeless tobacco: Never Used - Tobacco comment: Pt denies Substance and Sexual Activity - Alcohol use: No - Drug use: No Comment: Pt denies - Sexual activity: Yes Partners: Male control/protection: None ALLERGIES Allergen Reactions - Chocolate Rash - Adhesive Tape (Rita* Rash, Itching Patient reports unable to tolerate band-aids after a procedure. She noted redness and itching at site of band aid. - Mosquitos Swelling - Phenergan [Prometha* GI Upset - Sunscreen Rash Tingle tanning lotion - Zyrtec [Cetirizine * Other: See Comments Made her very drowsy, Review of Systems Constitutional: Negative for chills and fever. Eyes: Positive for pain and discharge. Respiratory: Negative for cough and shortness of breath. Cardiovascular: Negative for chest pain. Gastrointestinal: Negative for abdominal pain, diarrhea, nausea and vomiting. Musculoskeletal: Negative for neck pain and neck stiffness. Skin: Negative for rash and wound. Neurological: Negative for dizziness, facial asymmetry, weakness, light-headedness, numbness and headaches. Physical Exam BP 123/71 Pulse 99 Temp (Src) 98.4 (Temporal) Resp 16 Ht 5' 1" (1.55m) Wt 135 lb (61.2kg) SpO2 99% BMI 25.52 kg/(m2). O2 Therapy: Room Air Physical Exam Constitutional: She is oriented to person, place, and time. She appears well-developed and well-nourished. No distress. HENT: Head: Normocephalic and atraumatic. Right Ear: External ear normal. Left Ear: External ear normal. Eyes: Pupils are equal, round, and reactive to light. EOM are normal. Minimal right-sided conjunctival injection, minimal swelling to the right upper eyelid, no significant pain with extraocular movements Neck: Normal range of motion. Cardiovascular: Normal rate, regular rhythm and normal heart sounds. Pulmonary/Chest: Effort normal and breath sounds normal. No respiratory distress. She has no wheezes. She has no rales. Abdominal: Soft. Bowel sounds are normal. She exhibits no distension. There is no tenderness. There is no guarding. Musculoskeletal: Normal range of motion. She exhibits no edema, tenderness or deformity. Neurological: She is alert and oriented to person, place, and time. No cranial nerve deficit. Skin: Skin is warm and dry. No rash noted. She is not diaphoretic. No erythema. No pallor. Nursing note and vitals reviewed. Diagnostic Testing ED Labs Ordered and Reviewed - No data to display Procedures ED Course / Clinical Impression Clinical Impressions as of Sep 30 316 Preseptal cellulitis of right upper eyelid MDM / Disposition / Plan The patient is a 29 year old female with a significant past medical history of dry eyes, who presents to the ED for evaluation of right eye pain for the past day. The patient presents hemodynamically stable but tachycardic secondary to pain. The patient appears to be uncomfortable but nontoxic. Physical exam consistent with early preseptal cellulitis versus conjunctivitis versus corneal abrasion. The patient does not appear toxic nor does she has significant pain with extraocular movements concerning for an orbital cellulitis. The patient does not have ciliary injection concerning for iritis. History is not concerning for a retinal attachment. I do not believe the patient requires laboratory studies or imaging at this time. The patient was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 97.3 [degF] Tia Bowen MACHINE WOODWORKING SANDER.CAGER OPERATOR Work Phone: [facility] 12-28-2023 18:53-0500 Diastolic blood pressure 53 mm[Hg] Tia Bowen MACHINE WOODWORKING SANDER.CAGER OPERATOR Work Phone: [facility] 12-28-2023 18:53-0500 Heart rate 72 /min Tia Bowen MACHINE WOODWORKING SANDER.CAGER OPERATOR Work Phone: [facility] 12-28-2023 18:53-0500 Respiratory rate 18 /min Tia Bowen MACHINE WOODWORKING SANDER.CAGER OPERATOR Work Phone: [facility] 12-28-2023 18:53-0500 SaO2% (BldA) [Mass fraction] 98 % Tia Bowen MACHINE WOODWORKING SANDER.CAGER OPERATOR Work Phone: [facility] 12-28-2023 18:53-0500 Systolic blood pressure 105 mm[Hg] Tia Bowen MACHINE WOODWORKING SANDER.CAGER OPERATOR Work Phone: [facility] 10-14-2023 10:50-0500 Diastolic blood pressure 60 mm[Hg] Jaja Froimson MACHINE WOODWORKING SANDER.CAGER OPERATOR Work Phone: [facility] 10-14-2023 10:50-0500 Heart rate 87 /min Jaja Fromaxwellon MACHINE WOODWORKING SANDER.CAGER OPERATOR Work Phone: [facility] 10-14-2023 10:50-0500 Systolic blood pressure 108 mm[Hg] Jaja Froimson MACHINE WOODWORKING SANDER.CAGER OPERATOR Work Phone: [facility] 09-29-2023 18:42-0500 Body temperature 98.2 [degF] Robert Lord PA-C Work Phone: [facility] 09-29-2023 18:42-0500 Body weight 77.56 kg Robert Lord PA-C Work Phone: [facility] 09-29-2023 18:42-0500 Diastolic blood pressure 66 mm[Hg] Robert Lord PA-C Work Phone: [facility] 09-29-2023 18:42-0500 Heart rate 78 /min Robert Lord PA-C Work Phone: [facility] 09-29-2023 18:42-0500 Respiratory rate 18 /min Robert Lord PA-C Work Phone: [facility] 09-29-2023 18:42-0500 SaO2% (BldA) [Mass fraction] 99 % Robert Lord PA-C Work Phone: [facility] 09-29-2023 18:42-0500 Systolic blood pressure 114 mm[Hg] Robert Lord PA-C Work Phone: [facility] 09-14-2023 16:45-0400 Body temperature 97.59 [degF] Janay Anglin MACHINE WOODWORKING SANDER.CAGER OPERATOR Work Phone: [facility] 09-14-2023 16:45-0400 Body weight 76.3 kg Janay Anglin MACHINE WOODWORKING SANDER.CAGER OPERATOR Work Phone: [facility] 09-14-2023 16:45-0400 Diastolic blood pressure 64 mm[Hg] Janay Anglin MACHINE WOODWORKING SANDER.CAGER OPERATOR Work Phone: [facility] 09-14-2023 16:45-0400 Heart rate 88 /min Janay Anglin MACHINE WOODWORKING SANDER.CAGER OPERATOR Work Phone: [facility] 09-14-2023 16:45-0400 Respiratory rate 18 /min Janay Anglin MACHINE WOODWORKING SANDER.CAGER OPERATOR Work Phone: [facility] 09-14-2023 16:45-0400 SaO2% (BldA) [Mass fraction] 96 % Janay Anglin MACHINE WOODWORKING SANDER.CAGER OPERATOR Work Phone: [facility] 09-14-2023 16:45-0400 Systolic blood pressure 116 mm[Hg] Janay Anglin MACHINE WOODWORKING SANDER.CAGER OPERATOR Work Phone: [facility] 07-15-2023 13:35-0400 Diastolic blood pressure 61 mm[Hg] Jaja Moss MACHINE WOODWORKING SANDER.CAGER OPERATOR Work Phone: [facility] 07-15-2023 13:35-0400 Heart rate 79 /min Jaja Froimson MACHINE WOODWORKING SANDER.CAGER OPERATOR Work Phone: [facility] 07-15-2023 13:35-0400 Systolic blood pressure 100 mm[Hg] Jaja Froimson MACHINE WOODWORKING SANDER.CAGER OPERATOR Work Phone: [facility] 07-14-2023 10:18-0400 Body temperature 97.11 [degF] Huan Schwanger MACHINE WOODWORKING SANDER.CAGER OPERATOR Work Phone: [facility] 07-14-2023 10:18-0400 Diastolic blood pressure 78 mm[Hg] Huan Schwanger MACHINE WOODWORKING SANDER.CAGER OPERATOR Work Phone: [facility] 07-14-2023 10:18-0400 Heart rate 86 /min Huan Schwanger MACHINE WOODWORKING SANDER.CAGER OPERATOR Work Phone: [facility] 07-14-2023 10:18-0400 Respiratory rate 18 /min Huan Schwanger MACHINE WOODWORKING SANDER.CAGER OPERATOR Work Phone: [facility] 07-14-2023 10:18-0400 SaO2% (BldA) [Mass fraction] 95 % Huan Schwanger MACHINE WOODWORKING SANDER.CAGER OPERATOR Work Phone: [facility] 07-14-2023 10:18-0400 Systolic blood pressure 128 mm[Hg] Huan Schwanger MACHINE WOODWORKING SANDER.CAGER OPERATOR Work Phone: [facility] 06-09-2023 12:50-0400 Body temperature 96.8 [degF] Jaja Froimson MACHINE WOODWORKING SANDER.CAGER OPERATOR Work Phone: [facility] 06-09-2023 12:50-0400 Diastolic blood pressure 70 mm[Hg] Jaja Froimson MACHINE WOODWORKING SANDER.CAGER OPERATOR Work Phone: [facility] 06-09-2023 12:50-0400 Heart rate 73 /min Jaja Froimson MACHINE WOODWORKING SANDER.CAGER OPERATOR Work Phone: [facility] 06-09-2023 12:50-0400 Systolic blood pressure 117 mm[Hg] Jaja Froimson MACHINE WOODWORKING SANDER.CAGER OPERATOR Work Phone: [facility] 01-27-2023 13:06-0500 Body weight 70.31 kg Maile Beaver MD Work Phone: [facility] 01-27-2023 13:06-0500 Diastolic blood pressure 63 mm[Hg] Maile Beaver MD Work Phone: [facility] 01-27-2023 13:06-0500 Heart rate 72 /min Maile Beaver MD Work Phone: [facility] 01-27-2023 13:06-0500 Respiratory rate 18 /min Maile Beaver MD Work Phone: [facility] 01-27-2023 13:06-0500 SaO2% (BldA) [Mass fraction] 96 % Maile Beaver MD Work Phone: [facility] 01-27-2023 13:06-0500 Systolic blood pressure 102 mm[Hg] Maile Beaver MD Work Phone: [facility] 01-06-2023 14:36-0500 Body temperature 98.1 [degF] Korina Kus MACHINE WOODWORKING SANDER.CAGER OPERATOR Work Phone: [facility] 01-06-2023 14:36-0500 Body weight 69.85 kg Korina Kus MACHINE WOODWORKING SANDER.CAGER OPERATOR Work Phone: [facility] 01-06-2023 14:36-0500 Diastolic blood pressure 58 mm[Hg] Korina Kus MACHINE WOODWORKING SANDER.CAGER OPERATOR Work Phone: [facility] 01-06-2023 14:36-0500 Heart rate 69 /min Korina Kus MACHINE WOODWORKING SANDER.CAGER OPERATOR Work Phone: [facility] 01-06-2023 14:36-0500 Respiratory rate 16 /min Korina Kus MACHINE WOODWORKING SANDER.CAGER OPERATOR Work Phone: [facility] 01-06-2023 14:36-0500 SaO2% (BldA) [Mass fraction] 98 % Korina Kus MACHINE WOODWORKING SANDER.CAGER OPERATOR Work Phone: [facility] 01-06-2023 14:36-0500 Systolic blood pressure 97 mm[Hg] Korina Nina CAGER OPERATOR Work Phone: [facility] 01-03-2023 12:20-0500 Body temperature 97.5 [degF] Angelic Torsney PA-C Work Phone: [facility] 01-03-2023 12:20-0500 Body weight 68.04 kg Angelic Torsney PA-C Work Phone: [facility] 01-03-2023 12:20-0500 Diastolic blood pressure 53 mm[Hg] Angelic Torsney PA-C Work Phone: [facility] 01-03-2023 12:20-0500 Heart rate 82 /min Angelic Torsney PA-C Work Phone: [facility] 01-03-2023 12:20-0500 Respiratory rate 18 /min Angelic Torsney PA-C Work Phone: [facility] 01-03-2023 12:20-0500 SaO2% (BldA) [Mass fraction] 98 % Angelic Torsney PA-C Work Phone: [facility] 01-03-2023 12:20-0500 Systolic blood pressure 114 mm[Hg] Angelic Torsney PA-C Work Phone: [facility] 12-06-2022 14:18-0500 Respiratory rate 14 /min [facility] Work Phone: 12-06-2022 12:08-0500 Body height 157.48 cm [facility] Work Phone: 12-06-2022 12:08-0500 Body mass index (BMI) [Ratio] 26.5 kg/m2 [facility] Work Phone: 12-06-2022 12:08-0500 Body temperature 97.3 [degF] [facility] Work Phone: 12-06-2022 12:08-0500 Body weight 65.77 kg [facility] Work Phone: 12-06-2022 12:08-0500 Diastolic blood pressure 79 mm[Hg] [facility] Work Phone: 12-06-2022 12:08-0500 Heart rate 101 /min [facility] Work Phone: 12-06-2022 12:08-0500 SaO2% (BldA) [Mass fraction] 95 % [facility] Work Phone: 12-06-2022 12:08-0500 Systolic blood pressure 128 mm[Hg] [facility] Work Phone: 10-28-2022 14:28-0500 Body height 157.5 cm Jaja Froimson MACHINE WOODWORKING SANDER.CAGER OPERATOR Work Phone: [facility] 10-28-2022 14:28-0500 Body weight 70.17 kg Jaja Froimson MACHINE WOODWORKING SANDER.CAGER OPERATOR Work Phone: [facility] 10-28-2022 14:28-0500 Diastolic blood pressure 66 mm[Hg] Jaja Froimson MACHINE WOODWORKING SANDER.CAGER OPERATOR Work Phone: [facility] 10-28-2022 14:28-0500 Heart rate 75 /min Jaja Fromaxwellon MACHINE WOODWORKING SANDER.CAGER OPERATOR Work Phone: [facility] 10-28-2022 14:28-0500 Systolic blood pressure 104 mm[Hg] Jaja Froimson MACHINE WOODWORKING SANDER.CAGER OPERATOR Work Phone: [facility] 09-09-2022 15:45-0400 Body temperature 98.01 [degF] Chuckie Hall MACHINE WOODWORKING SANDER.CAGER OPERATOR Work Phone: [facility] 09-09-2022 15:45-0400 Diastolic blood pressure 74 mm[Hg] Chuckie Hall MACHINE WOODWORKING SANDER.CAGER OPERATOR Work Phone: [facility] 09-09-2022 15:45-0400 Heart rate 81 /min Chuckie Hall MACHINE WOODWORKING SANDER.CAGER OPERATOR Work Phone: [facility] 09-09-2022 15:45-0400 Respiratory rate 20 /min Chuckie Hall MACHINE WOODWORKING SANDER.CAGER OPERATOR Work Phone: [facility] 09-09-2022 15:45-0400 SaO2% (BldA) [Mass fraction] 98 % Chuckie Hall MACHINE WOODWORKING SANDER.CAGER OPERATOR Work Phone: [facility] 09-09-2022 15:45-0400 Systolic blood pressure 110 mm[Hg] Chuckie Hall MACHINE WOODWORKING SANDER.CAGER OPERATOR Work Phone: [facility] 09-05-2022 15:28-0400 Body height 157.5 cm Shalonda Krause MACHINE WOODWORKING SANDER.CNM Work Phone: [facility] 09-05-2022 15:28-0400 Body weight 65.32 kg Shalonda Krause MACHINE WOODWORKING SANDER.CNM Work Phone: [facility] 09-05-2022 15:28-0400 Diastolic blood pressure 66 mm[Hg] Shalonda Krause MACHINE WOODWORKING SANDER.CNM Work Phone: [facility] 09-05-2022 15:28-0400 Systolic blood pressure 104 mm[Hg] Shalonda Krause MACHINE WOODWORKING SANDER.CNM Work Phone: [facility] 07-16-2022 12:56-0400 Body height 157.5 cm Jaja Froimson MACHINE WOODWORKING SANDER.CAGER OPERATOR Work Phone: [facility] 07-16-2022 12:56-0400 Body weight 72.58 kg Jaja Froimson MACHINE WOODWORKING SANDER.CAGER OPERATOR Work Phone: [facility] 07-16-2022 12:56-0400 Diastolic blood pressure 74 mm[Hg] Jaja Froimson MACHINE WOODWORKING SANDER.CAGER OPERATOR Work Phone: [facility] 07-16-2022 12:56-0400 Heart rate 97 /min Jaja Froimson MACHINE WOODWORKING SANDER.CAGER OPERATOR Work Phone: [facility] 07-16-2022 12:56-0400 Respiratory rate 22 /min Jaja Froimson MACHINE WOODWORKING SANDER.CAGER OPERATOR Work Phone: [facility] 07-16-2022 12:56-0400 Systolic blood pressure 121 mm[Hg] Jaja Moss MACHINE WOODWORKING SANDER.CAGER OPERATOR Work Phone: [facility] 07-10-2022 11:48-0400 Body weight 71.67 kg Shalonda Krause MACHINE WOODWORKING SANDER.CNM Work Phone: [facility] 07-10-2022 11:48-0400 Diastolic blood pressure 60 mm[Hg] Shalonda Krause MACHINE WOODWORKING SANDER.CNM Work Phone: [facility] 07-10-2022 11:48-0400 Heart rate 88 /min Shalonda Krause MACHINE WOODWORKING SANDER.CNM Work Phone: [facility] 07-10-2022 11:48-0400 Systolic blood pressure 100 mm[Hg] Shalonda Krause MACHINE WOODWORKING SANDER.CNM Work Phone: [facility] 06-25-2022 13:23-0400 Body weight 72.69 kg Shalonda Krause MACHINE WOODWORKING SANDER.CNM Work Phone: [facility] 06-25-2022 13:23-0400 Diastolic blood pressure 60 mm[Hg] Shalonda Krause MACHINE WOODWORKING SANDER.CNM Work Phone: [facility] 06-25-2022 13:23-0400 Systolic blood pressure 100 mm[Hg] Shalonda Krause MACHINE WOODWORKING SANDER.CNM Work Phone: [facility] 06-24-2022 13:53-0400 Body weight 72.12 kg Gregorio Connelly MD Work Phone: [facility] 06-24-2022 13:53-0400 Diastolic blood pressure 60 mm[Hg] Gregorio Connelly MD Work Phone: [facility] 06-24-2022 13:53-0400 Systolic blood pressure 104 mm[Hg] Gregorio Connelly MD Work Phone: [facility] 06-03-2022 14:43-0400 Body weight 69.97 kg Shalonda Krause MACHINE WOODWORKING SANDER.CNM Work Phone: [facility] 06-03-2022 14:43-0400 Diastolic blood pressure 60 mm[Hg] Shalonda Krause MACHINE WOODWORKING SANDER.CNM Work Phone: [facility] 06-03-2022 14:43-0400 Heart rate 92 /min Shalonda Krause MACHINE WOODWORKING SANDER.CNM Work Phone: [facility] 06-03-2022 14:43-0400 Systolic blood pressure 100 mm[Hg] Shalonda Krause MACHINE WOODWORKING SANDER.CNM Work Phone: [facility] 06-03-2022 09:53-0400 Body weight 69.81 kg Vincent Terrence DO Work Phone: [facility] 06-03-2022 09:53-0400 Diastolic blood pressure 67 mm[Hg] Vincent Terrence DO Work Phone: [facility] 06-03-2022 09:53-0400 Heart rate 91 /min Vincent Terrence DO Work Phone: [facility] 06-03-2022 09:53-0400 Systolic blood pressure 100 mm[Hg] Vincent Terrence DO Work Phone: [facility] 05-06-2022 14:33-0400 Body height 160 cm Shalonda Krause MACHINE WOODWORKING SANDER.CNM Work Phone: [facility] 05-06-2022 14:33-0400 Body weight 70.76 kg Shalonda Krause MACHINE WOODWORKING SANDER.CNM Work Phone: [facility] 05-06-2022 14:33-0400 Diastolic blood pressure 58 mm[Hg] Shalonda Krause MACHINE WOODWORKING SANDER.CNM Work Phone: [facility] 05-06-2022 14:33-0400 Systolic blood pressure 94 mm[Hg] Shalonda Krause MACHINE WOODWORKING SANDER.CNM Work Phone: [facility] 04-17-2022 18:11-0400 Body weight 69.17 kg Shalonda Krause MACHINE WOODWORKING SANDER.CNM Work Phone: [facility] 05-26-2022 18:11-0400 Diastolic blood pressure 62 mm[Hg] Shalonda Krause MACHINE WOODWORKING SANDER.CNM Work Phone: [facility] 04-17-2022 18:11-0400 Heart rate 76 /min Shalonda Krause MACHINE WOODWORKING SANDER.CNM Work Phone: [facility] 04-17-2022 18:11-0400 Systolic blood pressure 102 mm[Hg] Shalonda Krause MACHINE WOODWORKING SANDER.CNM Work Phone: [facility] 03-06-2022 10:09-0400 Body weight 64.52 kg Shalonda Krause MACHINE WOODWORKING SANDER.CNM Work Phone: [facility] 03-06-2022 10:09-0400 Diastolic blood pressure 60 mm[Hg] Shalonda Krause MACHINE WOODWORKING SANDER.CNM Work Phone: [facility] 03-06-2022 10:09-0400 Heart rate 88 /min Shalonda Krause MACHINE WOODWORKING SANDER.CNM Work Phone: [facility] 03-06-2022 10:09-0400 Systolic blood pressure 104 mm[Hg] Shalonda Krause MACHINE WOODWORKING SANDER.CNM Work Phone: [facility] 09-21-2021 18:21-0400 Body height 157.4 cm No Pcp Required [facility] 09-21-2021 18:21-0400 Body temperature 98.78 [degF] No Pcp Required [facility] 09-21-2021 18:21-0400 Body weight 60.4 kg No Pcp Required [facility] 09-21-2021 18:21-0400 Diastolic blood pressure 66 mm[Hg] No [place]cp [place] [facility] [place]21-2021 18:21-0400 Heart rate 112 /min No Pcp Required [facility] 09-21-2021 18:21-0400 Respiratory rate 18 /min No Pcp Required [facility] 09-21-2021 18:21-0400 SaO2% (BldA) [Mass fraction] 98 % No Pcp [place] [facility] 09-21-2021 18:21-0400 Systolic blood pressure 110 mm[Hg] No Pcp [place] [facility] En[place] Encounter Date Encounter Type Care Provider Facility Start: 09-27-2025 End: 09-27-2025 Emergency department patient visit [place] [facility] Facility:[facility] Start: 09-14-2025 End: 09-14-2025 Telephone encounter Angela OVALLE Work Phone: [facility] Start: 08-21-2025 End: 08-21-2025 ambulatory Sivakumar Diaz [facility] Work Phone: [facility] Start: 08-21-2025 End: 08-21-2025 Chart abstracting Sivakumar Diaz [facility] Work Phone: [facility] Start: 08-14-2025 End: 08-14-2025 Office outpatient visit 25 minutes Herberth Montana DO Work Phone: [facility] Start: 07-10-2025 End: 07-10-2025 ambulatory Tessa Dill RN Work Phone: [facility] Start: 07-10-2025 End: 07-10-2025 Chart abstracting Tessa Dill RN Work Phone: [facility] Start: 07-04-2025 End: 07-04-2025 Emergency department patient visit CHUCKIE ALYSA Facility:[facility] Start: 07-04-2025 End: 07-04-2025 ambulatory Angela OVALLE Work Phone: [facility] Comment on above: Radiology US Start: 07-04-2025 End: 07-04-2025 Chart abstracting Angela Allegra VASQUEZ Work Phone: [facility] Start: 07-04-2025 End: 07-04-2025 Patient encounter procedure Kathy Perdomo RDMS Radiology Start: 06-21-2025 End: 06-21-2025 Patient encounter procedure Jaja Moss MACHINE WOODWORKING SANDER.CAGER OPERATOR Work Phone: Neurology Comment on above: Chronic migraine wit hout aura, intractable, without status migrainosus (Primary Dx) Start: 06-21-2025 End: 06-21-2025 ambulatory JAJA MOSS Facility:[facility] Start: 06-19-2025 End: 06-19-2025 Office outpatient visit 25 minutes Kevin Rubén DO Work Phone: [facility] Start: 05-29-2025 End: 05-29-2025 Office outpatient visit 25 minutes Kevin Rubén DO Work Phone: [facility] Comment on above: Arrived Start: 05-18-2025 End: 05-22-2025 Evaluation and management of inpatient ADELFOBROOKE VAZQUEZ Facility:[facility] Start: 05-18-2025 End: 05-18-2025 [facility] Start: 05-18-2025 End: 05-18-2025 ambulatory Kathy Parchem RDMS Radiology Comment on above: Radiology US Start: 05-18-2025 End: 05-18-2025 Patient encounter procedure Kathy Parchem RDMS Radiology Start: 05-18-2025 End: 05-18-2025 Telephone encounter Bethany Lee MD Work Phone: Provider Adult Comment on above: Hospital To Hospital Start: 05-17-2025 End: 05-18-2025 Telephone encounter Sivakumar Diaz [facility] Work Phone: [facility] Start: 05-15-2025 End: 05-15-2025 ambulatory Tessa Dill RN Work Phone: [facility] Start: 05-15-2025 End: 05-15-2025 Chart abstracting Tessa Dill RN Work Phone: [facility] Start: 05-11-2025 End: 05-17-2025 Evaluation and management of inpatient LEBRON GUDINO Facility:[facility] Start: 05-11-2025 End: 05-11-2025 Emergency department patient visit JOSIE MEADOWS Facility:[facility] Start: 05-11-2025 End: 05-11-2025 Telephone encounter Kendell Ring MD Work Phone: [facility] Provider Adult Start: 05-11-2025 End: 05-11-2025 Patient encounter procedure Tessa Dill RN Work Phone: [facility] Comment on above: Bipolar disorder, ra pid cycling (HCC-CMS) (Primary Dx) Bipolar disorder, ra pid cycling (HCC-CMS) (Primary Dx); Long-term use of high-risk medication; Therapeutic drug monitoring Start: 05-02-2025 End: 05-02-2025 Telephone encounter Angela OVALLE Work Phone: [facility] Start: 05-01-2025 End: 05-01-2025 Office outpatient visit 25 minutes Kevin Rubén DO Work Phone: [facility] Start: 04-24-2025 End: 04-24-2025 Office outpatient visit 25 minutes Kevin Rubén DO Work Phone: [facility] Comment on above: Generalized anxiety disorder with panic attacks (Primary Dx); Bipolar disorder in full remission, most recent episode unspecified type (HCC-CMS); Therapeutic drug monitoring; Screening for endocrine, metabolic and immunity disorder; Long-term use of high-risk medication; Obsessive-compulsive disorder, unspecified type; Encounter for observation for other suspected diseases and conditions ruled out Start: 04-24-2025 End: 12-04-2025 ambulatory [facility] Start: 04-20-2025 End: 04-20-2025 Follow-up encounter Hollie Islas PA-C Work Phone: [facility] Comment on above: Results Start: 04-19-2025 End: 04-19-2025 Office outpatient visit 25 minutes Tessa Guerrero MACHINE WOODWORKING SANDER.CAGER OPERATOR Work Phone: [facility] Comment on above: Dysuria (Primary Dx) ; Acute vaginitis Start: 04-19-2025 End: 04-19-2025 ambulatory TESSA GUERRERO Facility:[facility] Start: 04-06-2025 End: 05-18-2025 Telephone encounter Sivakumar Diaz [facility]/CMS Work Phone: [facility] Start: 03-29-2025 End: 03-29-2025 Patient encounter procedure Jaja Patylucila MACHINE WOODWORKING SANDER.CAGER OPERATOR Work Phone: Neurology Comment on above: Chronic migraine wit hout aura, intractable, without status migrainosus (Primary Dx) Start: 03-29-2025 End: 05-29-2025 Follow-up encounter [facility] Start: 03-29-2025 End: 03-29-2025 ambulatory DAKOTA GUZMAN Facility:[facility] Start: 03-28-2025 End: 03-28-2025 Emergency department patient visit SABINA SKINNER Facility:[facility] Start: 03-20-2025 End: 03-20-2025 Emergency department patient visit TRINITY STACY Facility:[facility] Start: 03-20-2025 End: 03-20-2025 ambulatory Speedy White RN NURSE TRUST CLERK Comment on above: Difficulty Swallowin g Start: 03-20-2025 End: 03-20-2025 Office outpatient visit 25 minutes Herberth Montana DO Work Phone: [facility] Comment on above: Generalized anxiety disorder with panic attacks (Primary Dx); Bipolar disorder in full remission, most recent episode unspecified type ([facility]-CMS); Obsessive-compulsive disorder, unspecified type Start: 03-13-2025 End: 03-13-2025 Chart abstracting Tessa Dill RN Work Phone: [facility] Start: 03-13-2025 End: 03-13-2025 ambulatory Tessa Dill RN Work Phone: [facility] Start: 03-10-2025 End: 03-10-2025 Emergency department patient visit No Primary Care Physician -Emergency Department Work Phone: Start: 03-08-2025 End: 03-09-2025 Emergency department patient visit JOSIE JACK Facility:[facility] Start: 03-08-2025 End: 03-08-2025 Emergency department patient visit ADELFO VAZQUEZ Facility:[facility] Start: 03-07-2025 End: 05-18-2025 Telephone encounter Shelly Roth Work Phone: Provider Adult Start: 03-07-2025 End: 03-08-2025 ambulatory EM THOMPSON Facility:[facility] Start: 03-07-2025 End: 03-07-2025 Emergency department patient visit TERENCE JOHNSON Facility:[facility] Start: 03-06-2025 End: 03-07-2025 Emergency department patient visit TRINITY KUMAR Facility:[facility] Start: 03-06-2025 End: 03-06-2025 Emergency department patient visit ADELFO VAZQUEZ Facility:[facility] Start: 03-04-2025 End: 03-06-2025 Evaluation and management of inpatient VINCENT SMITH Facility:[facility] Start: 03-03-2025 End: 03-03-2025 BH/MH Visits Sivakumar Diaz [facility] Work Phone: [facility] Comment on above: Generalized anxiety disorder with panic attacks (Primary Dx) Start: 02-27-2025 End: 03-03-2025 Evaluation and management of inpatient TRINITY KUMAR Facility:[facility] Start: 02-27-2025 End: 02-27-2025 Office outpatient visit 25 minutes Kevin Rubén DO Work Phone: [facility] Comment on above: Bipolar disorder in full remission, most recent episode unspecified type (HCC-CMS) (Primary Dx); Generalized anxiety disorder with panic attacks Start: 02-20-2025 End: 02-20-2025 Office outpatient visit 25 minutes Kevin Rubén DO Work Phone: [facility] Comment on above: Bipolar disorder in full remission, most recent episode unspecified type (HCC-CMS) (Primary Dx); Panic attack; Generalized anxiety disorder with panic attacks; Mixed obsessional thoughts and acts Start: 02-15-2025 End: 02-15-2025 Telephone encounter Danica Lou RN Work Phone: [facility] Comment on above: Student Support Counselor - O ther Start: 02-14-2025 End: 02-14-2025 Emergency department patient visit ARASELI BABB Facility:[facility] Start: 02-14-2025 End: 02-14-2025 Emergency department patient visit TRINITY KUMAR Facility:[facility] Start: 02-14-2025 End: 02-14-2025 ambulatory Kathy Parchem RDMS Radiology Comment on above: Radiology US Start: 02-14-2025 End: 02-14-2025 Patient encounter procedure Kathy Parchem RDMS Radiology Start: 02-14-2025 End: 02-14-2025 Telephone encounter Everett Cruz MD Work Phone: [facility] Comment on above: Breast Problem Start: 02-13-2025 End: 02-13-2025 ambulatory Tessa Dill RN Work Phone: [facility] Start: 02-13-2025 End: 02-13-2025 Chart abstracting Tessa Dill RN Work Phone: [facility] Start: 02-08-2025 End: 02-11-2025 BH/ Visits Sivakumar Diaz [facility]/CMS Work Phone: [facility] Comment on above: Bipolar disorder in full remission, most recent episode unspecified type (HCC-CMS) (Primary Dx) Start: 02-01-2025 End: 02-01-2025 Orders Only Everett Cruz MD Work Phone: [facility] Comment on above: Nipple discharge (Pr imary Dx); Family history of breast cancer; Family history of ovarian cancer Cellulitis of breast (Primary Dx) Breast lesion [N64.9 ] Start: 01-31-2025 End: 01-31-2025 Orders Only Everett Cruz MD Work Phone: Hematology/Oncology Comment on above: Breast lesion (Prima ry Dx); Breast abscess Breast lesion (Prima ry Dx) Start: 01-30-2025 End: 01-30-2025 Office outpatient visit 25 minutes Kevinjaylyn Shethir DO Work Phone: [facility] Comment on above: Bipolar disorder in full remission, most recent episode unspecified type (HCC-CMS) (Primary Dx); Generalized anxiety disorder with panic attacks Start: 01-26-2025 End: 01-26-2025 ambulatory Sivakumar Emily [facility] Work Phone: [facility] Start: 01-26-2025 End: 01-26-2025 Chart abstracting Sivakumar Azullucio [facility] Work Phone: [place] Start: 01-22-2025 End: 01-22-2025 ambulatory Bekah Aguilera RN NURSE TRUST CLERK Comment on above: Breast Problem Start: 01-20-2025 End: 01-20-2025 Emergency department patient visit TRINITY KUMAR Facility:[facility] Start: 01-15-2025 End: 01-15-2025 Orders Only Bere Roque MD Work Phone: Infectious Disease Comment on above: Nausea Start: 01-09-2025 Emergency department patient visit TRINITY KUMAR Facility:[facility] Start: 01-09-2025 End: 01-09-2025 ambulatory Katie Powell RN NURSE TRUST CLERK Comment on above: Breast Problem Start: 01-08-2025 End: 01-08-2025 ambulatory Lulu Omalley RN NURSE TRUST CLERK Comment on above: Rash Start: 01-01-2025 Emergency department patient visit TRINITY KUMAR Facility:[facility] Start: 01-01-2025 End: 01-01-2025 ambulatory Nicole Santiago RN NURSE TRUST CLERK Comment on above: Cellulitis Start: 12-31-2024 End: 12-31-2024 Emergency department patient visit YO LEON Facility:[facility] Start: 12-31-2024 End: 12-31-2024 ambulatory Gabriella Batres RN NURSE TRUST CLERK Comment on above: Mass Breast Problem Start: 12-30-2024 End: 12-30-2024 Office outpatient visit 5 minutes Tessa Dill RN Work Phone: [facility] Comment on above: Bipolar disorder in full remission, most recent episode unspecified type ([facility]) (Primary Dx) Start: 12-20-2024 End: 12-20-2024 ambulatory DAKOTA GUZMAN Facility:[facility] Start: 12-20-2024 End: 12-20-2024 Patient encounter procedure Jaja Patylucila ERIC.CAGER OPERATOR Work Phone: Neurology Comment on above: Chronic migraine wit hout aura, intractable, without status migrainosus (Primary Dx) Start: 12-05-2024 End: 12-05-2024 Office outpatient visit 25 minutes Herberth Montana DO Work Phone: [facility] Comment on above: Bipolar disorder in full remission, most recent episode unspecified type ([facility]-CMS) (Primary Dx); Generalized anxiety disorder; Other obsessive-compulsive disorders Start: 11-28-2024 End: 11-28-2024 ambulatory Tessa Dill RN Work Phone: [facility] Start: 11-28-2024 End: 11-28-2024 Chart abstracting Tessa Dill RN Work Phone: [facility] Start: 11-11-2024 End: 11-11-2024 ambulatory Janneth Barrientos RN NURSE TRUST CLERK Start: 11-11-2024 End: 11-11-2024 Follow-up encounter Janneth Barrientos RN NURSE TRUST CLERK Comment on above: ED Follow-up Start: 11-09-2024 End: 11-09-2024 ambulatory Josie Stokes RT(R) Radiology Comment on above: Radiology XR Start: 11-09-2024 End: 11-09-2024 Patient encounter procedure Josie Stokes RT(R) Radiology Start: 11-09-2024 Emergency department patient visit CERISE A KLEB Facility:[facility] Start: 10-24-2024 End: 10-24-2024 ambulatory CERISE A KLEB Facility:[facility] Start: 10-24-2024 End: 10-24-2024 Patient encounter procedure Chuckie Hall MACHINE WOODWORKING SANDER.CAGER OPERATOR Work Phone: [facility] Comment on above: Vaginal discharge (P rimary Dx) Start: 10-11-2024 End: 10-11-2024 Telephone encounter Angela OVALLE Work Phone: [facility] Start: 10-06-2024 End: 10-06-2024 Telephone encounter Angela OVALLE Work Phone: [facility] Start: 10-03-2024 End: 10-03-2024 Telephone encounter Mecca Harris [facility] Comment on above: Insurance Authorizat ion (Ubrelvy 100MG tablets); Ubrelvy 100MG tablets Start: 10-03-2024 End: 10-03-2024 Office outpatient visit 25 minutes Herberth Montana DO Work Phone: [facility] Comment on above: Bipolar disorder in partial remission, most recent episode unspecified type ([facility]) (Primary Dx); Generalized anxiety disorder Start: 09-27-2024 End: 09-27-2024 ambulatory CERISE A KLEB Facility:[facility] Start: 09-27-2024 End: 09-27-2024 Patient encounter procedure Jaja Moss APRN.CAGER OPERATOR Work Phone: Neurology Comment on above: Chronic migraine wit hout aura, intractable, without status migrainosus (Primary Dx) Start: 09-26-2024 End: 09-26-2024 ambulatory Tessa Dill RN Work Phone: [facility] Start: 09-26-2024 End: 09-26-2024 Chart abstracting Tessa Dill RN Work Phone: [facility] Start: 09-20-2024 End: 09-20-2024 Emergency department patient visit CERISE A KLEB Facility:[facility] Start: 09-20-2024 End: 09-20-2024 [facility] Start: 09-20-2024 End: 09-20-2024 Patient encounter procedure Alize Alonso APRN.CAGER OPERATOR Work Phone: [facility] Comment on above: Hand injury, left, i nitial encounter (Primary Dx) Start: 09-08-2024 End: 09-08-2024 Telephone encounter Sol Santos APRN.CAGER OPERATOR Work Phone: [facility] Comment on above: Results Start: 09-07-2024 End: 09-07-2024 ambulatory CERISE A KLEB Facility:[facility] Start: 09-07-2024 End: 09-07-2024 Office outpatient visit 25 minutes Sirisha Bulat MACHINE WOODWORKING SANDER.CAGER OPERATOR Work Phone: [facility] Comment on above: Vaginal irritation ( Primary Dx) Start: 08-19-2024 End: 08-19-2024 ambulatory CERISE A KLEB Facility:[facility] Start: 08-19-2024 End: 08-19-2024 Patient encounter procedure Sol Santos MACHINE WOODWORKING SANDER.CAGER OPERATOR Work Phone: [facility] Comment on above: Itching in the vagin al area (Primary Dx) Start: 08-11-2024 End: 08-11-2024 ambulatory SELF Facility:[facility] Start: 08-11-2024 End: 08-11-2024 Office outpatient visit 15 minutes Sirisha Bulat MACHINE WOODWORKING SANDER.CAGER OPERATOR Work Phone: [facility] Comment on above: Acute maxillary sinu sitis, recurrence not specified (Primary Dx) Start: 07-31-2024 End: 07-31-2024 ambulatory CERISE A KLEB Facility:[facility] Start: 07-31-2024 End: 07-31-2024 Patient encounter procedure Kiara Ibarra MACHINE WOODWORKING SANDER.CAGER OPERATOR Work Phone: [facility] Comment on above: Migraine without aur a and without status migrainosus, not intractable (Primary Dx); Left ear pain; Eustachian tube disorder, left Start: 07-04-2024 End: 07-04-2024 Patient encounter procedure Jaja Moss MACHINE WOODWORKING SANDER.CAGER OPERATOR Work Phone: Neurology Comment on above: Chronic migraine wit hout aura, intractable, without status migrainosus (Primary Dx) Start: 06-21-2024 End: 06-21-2024 Telephone encounter Angela OVALLE Work Phone: [facility] Start: 06-13-2024 End: 06-13-2024 Office outpatient visit 25 minutes Herberth Montana DO Work Phone: [facility] Comment on above: Bipolar disorder in partial remission, most recent episode unspecified type (HCC-CMS) (Primary Dx); Generalized anxiety disorder; Mixed obsessional thoughts and acts; Long-term use of high-risk medication; Screening for endocrine, metabolic and immunity disorder Start: 06-01-2024 End: 06-01-2024 Telephone encounter Angela OVALLE Work Phone: [facility] Start: 05-18-2024 ambulatory No Pcp MACHINE WOODWORKING SANDER [facility] Start: 05-18-2024 Patient encounter procedure No Pcp MACHINE WOODWORKING SANDER Appointment Center Start: 04-22-2024 End: 04-22-2024 Office outpatient visit 5 minutes Tessa Dill RN Work Phone: [facility] Comment on above: Bipolar disorder, in partial remission, most recent episode depressed (HCC-CMS) (Primary Dx); Generalized anxiety disorder Start: 04-07-2024 End: 04-07-2024 Office outpatient visit 5 minutes Tessa Dill RN Work Phone: [facility] Comment on above: Bipolar disorder, in partial remission, most recent episode depressed (HCC-CMS) (Primary Dx); Generalized anxiety disorder Start: 04-04-2024 ambulatory Chitra Anthony RT(R) R adiology Comment on above: Radiology XR Start: 04-04-2024 End: 04-04-2024 Patient encounter procedure Dakota Guzman MACHINE WOODWORKING SANDER.CAGER OPERATOR Work Phone: Neurology Comment on above: Chronic migraine wit hout aura, intractable, without status migrainosus (Primary Dx) Start: 04-04-2024 Telephone encounter Dakota Dowling MACHINE WOODWORKING SANDER.CAGER OPERATOR Work Phone: Neurology Comment on above: Referral Request Start: 04-04-2024 End: 04-04-2024 Office outpatient visit 15 minutes Serene Higginbotham MD Work Phone: Orthopaedics Comment on above: Sprain of left ankle , unspecified ligament, subsequent encounter (Primary Dx) Start: 04-04-2024 End: 04-04-2024 Subsequent hospital visit by physician Xr [facility] Work Phone: Radiology Comment on above: Sprain of left ankle , unspecified ligament, initial encounter [S93.402A] Start: 04-01-2024 E-mail encounter fro m caregiver Serene Higginbotham MD Work Phone: Orthopaedics Start: 04-01-2024 Patient encounter procedure Serene Higginbotham MD Work Phone: Orthopaedics Comment on above: appointment 04/04/24 Sprain of left ankle , unspecified ligament, initial encounter (Primary Dx); Pain in left foot Start: 03-22-2024 End: 03-22-2024 Office outpatient new 30 minutes Serene Higginbotham MD Work Phone: Orthopaedics Comment on above: Sprain of left ankle , unspecified ligament, initial encounter (Primary Dx) Start: 03-21-2024 End: 03-21-2024 Office outpatient visit [address] [employer] Work Phone: [facility] Comment on above: Bipolar disorder, in partial remission, most recent episode depressed (HCC-CMS) (Primary Dx); Generalized anxiety disorder; Bipolar disorder in partial remission, most recent episode unspecified type (HCC-CMS) Start: 03-16-2024 End: 03-16-2024 ambulatory Tessa Dill RN Work Phone: [facility] Start: 03-16-2024 End: 03-16-2024 Chart abstracting Tessa Dill RN Work Phone: [facility] Start: 03-11-2024 End: 03-11-2024 Office outpatient visit 5 minutes Tessa Dill RN Work Phone: [facility] Comment on above: Bipolar disorder, in partial remission, most recent episode depressed (HCC-CMS) (Primary Dx) Start: 02-22-2024 End: 02-22-2024 Office outpatient visit 25 minutes Kevin Rubén DO Work Phone: [facility] Comment on above: Bipolar disorder, in partial remission, most recent episode depressed (HCC-CMS) (Primary Dx); Bipolar disorder in partial remission, most recent episode unspecified type ([facility]-CMS); Generalized anxiety disorder Start: 02-17-2024 Telephone encounter Jaja anglin APRN.CNP Work Phone: Neurology Comment on above: Insurance Authorizat yanet; [place] [employer]/[facility] Start: 02-08-2024 End: 02-08-2024 Patient encounter procedure Gabriela Andrade PA-C Work Phone: Orthopedics Comment on above: Closed nondisplaced fracture of shaft of fifth metacarpal bone of left hand with routine healing, subsequent encounter (Primary Dx) Start: 02-08-2024 End: 02-08-2024 Subsequent hospital visit by physician Yoandy [address] [facility] Work Phone: Radiology Comment on above: Closed nondisplaced fracture of shaft of fifth metacarpal bone of left hand with routine healing, subsequent encounter [S62.357D] Start: 01-31-2024 ambulatory Nicole lewis RN NURSE TRUST CLERK Comment on above: Opened In Error Start: 01-29-2024 End: 01-29-2024 Office outpatient visit 5 minutes Tessa Dill RN Work Phone: [facility] Comment on above: Bipolar disorder, in partial remission, most recent episode depressed ([facility]-CMS) (Primary Dx) Start: 01-28-2024 End: 01-28-2024 Patient encounter procedure [employer] [place] Work Phone: Orthopaedics Comment on above: Closed nondisplaced fracture of shaft of fifth metacarpal bone of left hand with routine healing, subsequent encounter (Primary Dx) Start: 01-28-2024 End: 01-28-2024 Subsequent hospital visit by physician Yoandy Cadet [facility] Work Phone: Radiology Comment on above: Pain [R52] Start: 01-15-2024 ambulatory Tessa Hayden Work Phone: [facility] Comment on above: Closed nondisplaced fracture of shaft of fifth metacarpal bone of left hand, initial encounter (Primary Dx) Start: 01-15-2024 Chart abstracting Tessa Dill RN Work Phone: [facility] Start: 01-11-2024 End: 01-11-2024 Patient encounter procedure [employer] [place] Work Phone: Orthopaedics Comment on above: Closed nondisplaced fracture of shaft of fifth metacarpal bone of left hand, initial encounter (Primary Dx) Start: 01-08-2024 End: 01-08-2024 Office outpatient visit 5 minutes Tessa Dill RN Work Phone: [facility] Comment on above: Bipolar disorder, in partial remission, most recent episode depressed (HCC-CMS) (Primary Dx) Start: 01-06-2024 End: 01-06-2024 Orders Only Gabriela OLEARY-C Work Phone: Orthopaedics Comment on above: Closed nondisplaced fracture of shaft of fifth metacarpal bone of left hand, initial encounter (Primary Dx) Intractable chronic migraine without aura and without status migrainosus (Primary Dx) Start: 01-01-2024 End: 01-01-2024 Subsequent hospital visit by physician Xr [facility] Work Phone: Radiology Comment on above: Closed nondisplaced fracture of shaft of fifth metacarpal bone of left hand, initial encounter [S62.357A] Start: 01-01-2024 End: 01-01-2024 Patient encounter procedure Gabriela OLEARY-Hans Work Phone: Orthopaedics Comment on above: Closed nondisplaced fracture of shaft of fifth metacarpal bone of left hand, initial encounter Closed nondisplaced fracture of shaft of fifth metacarpal bone of left hand, initial encounter (Primary Dx) Pain (Primary Dx) Start: 01-01-2024 End: 01-01-2024 Office outpatient visit 5 minutes Tessa Dill RN Work Phone: [facility] Comment on above: Bipolar disorder, in partial remission, most recent episode depressed (HCC-CMS) (Primary Dx) Start: 12-28-2023 End: 12-28-2023 ambulatory [facility] Comment on above: Radiology XR Start: 12-28-2023 End: 12-28-2023 Patient encounter procedure Xr [place] [facility] Comment on above: Injury of left hand, initial encounter (Primary Dx); Closed nondisplaced fracture of shaft of fifth metacarpal bone of left hand, initial encounter Start: 12-11-2023 End: 12-11-2023 Office outpatient visit 5 minutes Tessa Dill RN Work Phone: [facility] Comment on above: Bipolar disorder, in partial remission, most recent episode depressed (HCC-CMS) (Primary Dx) Start: 11-30-2023 End: 11-30-2023 Office outpatient visit [address] [employer] DO Work Phone: [facility] Comment on above: Bipolar disorder in partial remission, most recent episode unspecified type (HCC-CMS) (Primary Dx); Generalized anxiety disorder; Mixed obsessional thoughts and acts; Bipolar disorder, in partial remission, most recent episode depressed (HCC-CMS) Start: 10-23-2023 ambulatory [facility] Comment on above: Population Health Na vigation Outreach (Maile Beaver MD offboarding/) Start: 10-14-2023 End: 10-14-2023 Patient encounter procedure Jaja Moss APRN.CAGER OPERATOR Work Phone: Neurology Comment on above: Intractable chronic migraine without aura and without status migrainosus (Primary Dx) Start: 10-09-2023 End: 10-09-2023 Office outpatient visit 5 minutes Tessa Dill RN Work Phone: [facility] Comment on above: Generalized anxiety disorder (Primary Dx) Start: 10-01-2023 Telephone encounter Sol mcgovern APRN.CAGER OPERATOR Work Phone: [facility] Comment on above: Results Start: 09-29-2023 End: 09-29-2023 Patient encounter procedure Robert Lord PA-C Work Phone: [facility] Comment on above: Recurrent UTI (Prima ry Dx); Acute otitis externa of right ear, unspecified type Start: 09-28-2023 End: 09-28-2023 Office outpatient visit 25 minutes Kevin Rubén DO Work Phone: [facility] Comment on above: Bipolar disorder, cu rrent episode mixed, severe, without psychotic features (HCC-CMS) (Primary Dx); Bipolar disorder in partial remission, most recent episode unspecified type (HCC-CMS); Generalized anxiety disorder Start: 09-24-2023 Telephone encounter Crystal Angel Luis OVALLE Work Phone: [facility] Start: 09-14-2023 End: 09-14-2023 Patient encounter procedure Janay Anglin APRN.CAGER OPERATOR Work Phone: [facility] Comment on above: Acute otitis externa of both ears, unspecified type (Primary Dx) Start: 09-04-2023 End: 09-04-2023 Office outpatient visit 5 minutes Tessa Dill RN Work Phone: [facility] Comment on above: Bipolar disorder, cu rrent episode mixed, severe, without psychotic features (HCC-CMS) (Primary Dx); Generalized anxiety disorder Start: 08-24-2023 End: 08-24-2023 Office outpatient visit 25 minutes [employer] DO Work Phone: [facility] Comment on above: Bipolar disorder, cu rrent episode mixed, severe, without psychotic features (HCC-CMS) (Primary Dx); Generalized anxiety disorder; Bipolar disorder in partial remission, most recent episode unspecified type (HCC-CMS) Start: 07-15-2023 End: 07-15-2023 Patient encounter procedure Jaja Moss APRN.CAGER OPERATOR Work Phone: Neurology Comment on above: Intractable chronic migraine without aura and without status migrainosus (Primary Dx) Start: 07-14-2023 End: 07-14-2023 Office outpatient visit 15 minutes Huan Liu MACHINE WOODWORKING SANDER.CAGER OPERATOR Work Phone: [facility] Comment on above: Dysuria (Primary Dx) Start: 07-06-2023 End: 07-06-2023 Office outpatient visit 25 minutes [employer] DO Work Phone: [facility] Comment on above: Generalized anxiety disorder; Bipolar disorder in partial remission, most recent episode unspecified type (HCC-CMS) Start: 07-06-2023 End: 07-06-2023 Patient encounter procedure Chitra Villaltavalentino LIZAMA Work Phone: [facility] Comment on above: Generalized anxiety disorder (Primary Dx); Bipolar disorder, current episode mixed, mild (HCC-CMS); Obsessive-compulsive disorder, unspecified type Start: 07-01-2023 End: 07-01-2023 ambulatory Sabina Barrientos MD Work Phone: [facility] Comment on above: Bacterial sinusitis (Primary Dx) Start: 07-01-2023 End: 07-01-2023 Telemedicine consultation with patient Sabina Barrientos MD Work Phone: [facility] Start: 06-09-2023 End: 06-09-2023 Patient encounter procedure Jaja Newmanon MACHINE WOODWORKING SANDER.CAGER OPERATOR Work Phone: Neurology Comment on above: Intractable chronic migraine without aura and without status migrainosus (Primary Dx) Start: 05-29-2023 End: 05-29-2023 Office outpatient visit 5 minutes Tessa Dill RN Work Phone: [facility] Comment on above: Bipolar disorder, cu rrent episode mixed, severe, without psychotic features (HCC-CMS) (Primary Dx); Generalized anxiety disorder Start: 05-23-2023 Refill Jaja Paty on MACHINE WOODWORKING SANDER.CAGER OPERATOR Work Phone: Neurology Comment on above: Refill Request Start: 05-18-2023 End: 05-18-2023 Office outpatient visit 25 minutes Herberth Montana DO Work Phone: [facility] Comment on above: Generalized anxiety disorder; Bipolar disorder in partial remission, most recent episode unspecified type (HCC-CMS) Start: 05-18-2023 End: 05-18-2023 Patient encounter procedure Mayda May RN Work Phone: [facility] Comment on above: Bipolar disorder, cu rrent episode mixed, severe, without psychotic features (HCC-CMS) (Primary Dx) Start: 04-27-2023 End: 04-27-2023 Office outpatient visit 5 minutes Tessa Dill RN Work Phone: [facility] Comment on above: Bipolar disorder, cu rrent episode mixed, severe, without psychotic features (HCC-CMS) (Primary Dx); Generalized anxiety disorder Start: 04-03-2023 End: 04-03-2023 Office outpatient visit 5 minutes Tessa Dill RN Work Phone: [facility] Comment on above: Bipolar disorder, cu rrent episode mixed, severe, without psychotic features (HCC-CMS) (Primary Dx); Generalized anxiety disorder Start: 03-23-2023 End: 03-23-2023 Office outpatient visit 25 minutes [employer] DO Work Phone: [facility] Comment on above: Bipolar disorder in partial remission, most recent episode unspecified type (HCC-CMS) (Primary Dx); Generalized anxiety disorder Start: 02-27-2023 End: 02-27-2023 Office outpatient visit 5 minutes Tessa Dill RN Work Phone: [facility] Comment on above: Bipolar disorder, cu rrent episode mixed, severe, without psychotic features (HCC-CMS) (Primary Dx) Start: 02-20-2023 End: 02-20-2023 Office outpatient visit 5 minutes Tessa Dill RN Work Phone: [facility] Comment on above: Bipolar disorder, cu rrent episode mixed, severe, without psychotic features (HCC-CMS) (Primary Dx); Generalized anxiety disorder Start: 02-19-2023 Telephone encounter Angela GU Work Phone: [facility] Start: 02-02-2023 End: 02-02-2023 Office outpatient visit 25 minutes [employer] DO Work Phone: [facility] Comment on above: Bipolar disorder in partial remission, most recent episode unspecified type (HCC-CMS) (Primary Dx) Start: 02-02-2023 End: 02-02-2023 Patient encounter doe Kirkland RN Work Phone: [facility] Comment on above: Bipolar disorder, cu rrent episode mixed, severe, without psychotic features (HCC-CMS) (Primary Dx) Start: 01-27-2023 End: 01-27-2023 Patient encounter procedure Maile Beaver MD Work Phone: Internal Medicine Comment on above: Wellness examination (Primary Dx); Rash of foot; Nevus; Constipation, unspecified constipation type; Atypical chest pain Start: 01-27-2023 End: 01-27-2023 Patient encounter status Maile Beaver MD Work Phone: Internal Medicine Start: 01-06-2023 End: 01-06-2023 Office outpatient visit 15 minutes Korina Nina APRN.CNP Work Phone: [facility] Comment on above: Fluid level behind t ympanic membrane of both ears (Primary Dx); Tinnitus of right ear; Hearing difficulty, bilateral Start: 01-05-2023 End: 01-05-2023 Office outpatient visit 25 minutes Herberth Montana DO Work Phone: [facility] Comment on above: Bipolar disorder in partial remission, most recent episode unspecified type (HCC-CMS) Start: 01-05-2023 E-mail encounter fro m caregiver Maile Beaver MD Work Phone: [facility] Start: 01-05-2023 End: 01-05-2023 Patient encounter procedure Chucho Jones RN Work Phone: [facility] Comment on above: Bipolar disorder, cu rrent episode mixed, severe, without psychotic features (HCC-CMS) (Primary Dx) Appointment Time Brooklynn villagran Start: 01-03-2023 End: 01-03-2023 Patient encounter procedure Angelic Gan PA-C Work Phone: [facility] Comment on above: Acute otitis media, right (Primary Dx); Nausea and vomiting, unspecified vomiting type Start: 01-01-2023 End: 01-01-2023 Office outpatient visit 5 minutes Tessa Dill RN Work Phone: [facility] Comment on above: Bipolar disorder, cu rrent episode mixed, severe, without psychotic features (HCC-CMS) (Primary Dx); Generalized anxiety disorder Start: 12-06-2022 End: 12-06-2022 Emergency department patient visit [facility] Start: 11-27-2022 Refill Jaja Froims on MACHINE WOODWORKING SANDER.CAGER OPERATOR Work Phone: Neurology Comment on above: Refill Request Start: 10-28-2022 End: 10-28-2022 Patient encounter procedure Jaja Froimson MACHINE WOODWORKING SANDER.CAGER OPERATOR Work Phone: Neurology Comment on above: Intractable migraine without aura and without status migrainosus (Primary Dx); Lightheadedness; Exertional headache Start: 10-27-2022 ambulatory Jaja Froims on MACHINE WOODWORKING SANDER.CAGER OPERATOR Work Phone: Neurology Comment on above: Migraine Start: 09-19-2022 ambulatory Shalonda OJEDA RN.CN Work Phone: OB/Gynecology Comment on above: Bleeding Start: 09-09-2022 End: 09-09-2022 Patient encounter procedure Chuckie Hall MACHINE WOODWORKING SANDER.CAGER OPERATOR Work Phone: [facility] Comment on above: UTI symptoms (Primar y Dx) Start: 09-05-2022 End: 09-05-2022 Patient encounter procedure Shalonda Krause MACHINE WOODWORKING SANDER.CNM Work Phone: OB/Gynecology Comment on above: Encounter for insert ion of mirena IUD (Primary Dx); History of gestational diabetes; care and examination [Z39.2 (ICD-10-CM)]; care and examination Start: 08-13-2022 ambulatory Jaja Froims on MACHINE WOODWORKING SANDER.CAGER OPERATOR Work Phone: [facility] Start: 08-13-2022 Patient encounter procedure Jaja Froimson MACHINE WOODWORKING SANDER.CAGER OPERATOR Work Phone: Neurology Comment on above: Appointment Start: 07-16-2022 End: 07-16-2022 Patient encounter procedure Jaja Froimson MACHINE WOODWORKING SANDER.CAGER OPERATOR Work Phone: Neurology Comment on above: Bilateral occipital neuralgia (Primary Dx); Migraine without aura and without status migrainosus, not intractable; 38 weeks gestation of Start: 07-15-2022 ambulatory Vincent Ocampo DO Work Phone: Endocrinology Comment on above: High sugars Start: 07-10-2022 End: 07-10-2022 Patient encounter procedure Shalonda Krause APRN.CNCaleb Work Phone: OB/Gynecology Comment on above: care in thi rd trimester (Primary Dx); 37 weeks gestation of Start: 07-03-2022 Telephone encounter Shalonda zhang APRN.CNM Work Phone: OB/Gynecology Comment on above: Appointment Start: 07-02-2022 ambulatory Vincent Ocampo DO Work Phone: Endocrinology Comment on above: Lancets Start: 06-30-2022 End: 06-30-2022 ambulatory Vincent Ocampo DO Work Phone: Endocrinology Comment on above: Diet controlled gest ational diabetes mellitus (GDM) in third trimester (Primary Dx) Start: 06-30-2022 End: 06-30-2022 Telemedicine consultation with patient Vincent Ocampo DO Work Phone: [facility] Start: 06-26-2022 Telephone encounter Shalonda zhang APRN.CNM Work Phone: OB/Gynecology Comment on above: Results Start: 06-25-2022 ambulatory Shalonda OJEDA RN.CNM Work Phone: OB/Gynecology Comment on above: Blood Sugar Start: 06-25-2022 End: 06-25-2022 Patient encounter procedure Shalonda Krause APRN.CNM Work Phone: OB/Gynecology Comment on above: care in thi rd trimester (Primary Dx); Gestational diabetes mellitus (GDM) affecting second ; Pyelectasis of fetus on ultrasound; Anxiety state; Pelvic pressure in ; Breech presentation with problem, single or unspecified fetus Start: 06-24-2022 End: 06-24-2022 Patient encounter procedure Gregorio Connelly MD Work Phone: Maternal Medicine Comment on above: Suspected problem wi th growth not found (Primary Dx); 35 weeks gestation of ; Pyelectasis of fetus on ultrasound; Gestational diabetes mellitus, class A1 Start: 06-20-2022 Telephone encounter Shalonda zhang APRN.CNM Work Phone: OB/Gynecology Comment on above: vag pain Start: 06-11-2022 End: 06-11-2022 ambulatory Lebron Mor BENJAMIN Work Phone: [facility] Comment on above: Blood Sugar Numbers Start: 06-11-2022 End: 06-11-2022 Nutrition therapy Lebron Juares BENJAMIN Work Phone: Endocrinology Comment on above: Medical Nutrition Th erapy (GDM) Start: 06-03-2022 End: 06-03-2022 Patient encounter procedure Shalonda Krause APRN.CNM Work Phone: OB/Gynecology Comment on above: care in thi rd trimester (Primary Dx); 32 weeks gestation of ; Gestational diabetes mellitus (GDM) affecting second ; Pyelectasis of fetus on ultrasound Start: 06-03-2022 End: 06-03-2022 Patient encounter procedure Vincent Ocampo DO Work Phone: Endocrinology Comment on above: Diet controlled gest ational diabetes mellitus (GDM) in third trimester (Primary Dx); Gestational diabetes mellitus (GDM) affecting second Start: 06-02-2022 ambulatory Shalonda OJEDA RN.CNM Work Phone: OB/Gynecology Comment on above: Blood Sugar Numbers Start: 05-27-2022 ambulatory Shalonda OJEDA RN.NATACHA Work Phone: OB/Gynecology Comment on above: Bv Start: 05-15-2022 End: 05-15-2022 Nursing evaluation of patient and report Ham Ozuna RN Work Phone: Endocrinology Comment on above: Gestational diabetes mellitus, class A1 Start: 05-13-2022 Telephone encounter Shalonda zhang APRN.CNM Work Phone: OB/Gynecology Comment on above: Results Start: 05-07-2022 Telephone encounter Shalonda zhang APRN.CNM Work Phone: OB/Gynecology Comment on above: Results Start: 05-06-2022 End: 05-06-2022 Patient encounter procedure Shalonda Krause APRN.CNM Work Phone: OB/Gynecology Comment on above: care, subse quent , third trimester (Primary Dx); Encounter for long-term (current) use of medications Start: 04-17-2022 End: 04-17-2022 Patient encounter procedure Shalonda Krause APRN.CONNORM Work Phone: OB/Gynecology Comment on above: care in sec ond trimester (Primary Dx); 25 weeks gestation of Start: 04-09-2022 End: 04-09-2022 ambulatory Kelsey Giraldo MD Work Phone: Pediatric Cardiology Start: 04-09-2022 End: 04-09-2022 Patient encounter procedure Kelsey Giraldo MD Work Phone: [facility] Start: 03-17-2022 Telephone encounter Shalonda zhang APRN.CONNORM Work Phone: OB/Gynecology Comment on above: Pain, Back Start: 03-16-2022 Telephone encounter Jimmy tucker MD Work Phone: [facility] Comment on above: Returning Patient's Call Start: 03-11-2022 End: 03-11-2022 Patient encounter procedure Ana Beard MD Work Phone: Maternal Medicine Comment on above: Encounter for follow -up ultrasound of anatomy (Primary Dx); Medication exposure during first trimester of ; 20 weeks gestation of Start: 03-06-2022 End: 03-06-2022 Patient encounter procedure Shalonda Krause APRN.CNM Work Phone: OB/Gynecology Comment on above: care in sec ond trimester (Primary Dx); 19 weeks gestation of ; 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HCC); Migraine without aura and without status migrainosus, not intractable; Panic disorder without agoraphobia; History of drug use; Adjustment disorder with mixed anxiety and depressed mood Start: 02-21-2022 Telephone encounter Shalonda zhang APRN.CNM Work Phone: OB/Gynecology Comment on above: pain of concern Start: 09-21-2021 End: 09-21-2021 Emergency department patient visit Rojelio Dao [facility] Start: 10-26-2014 End: 09-17-2020 Patient encounter status Serene Higginbotham MD Work Phone: [facility] Procedures Date Procedure Procedure Detail Performing Clinician Start: 09-22-2025 End: 09-22-2025 Psychotherapy w/patient 30 minutes Obsessive-compulsive disorder, unspecified type Crystal Allegra TRUST CLERK Work Phone: Comment on above: Arrived Start: 09-05-2025 End: 09-05-2025 Psychotherapy w/patient 45 minutes Generalized anxiety disorder with panic attacks Crystal Allegra MCKEEW Work Phone: Comment on above: Arrived Start: 08-28-2025 End: 08-28-2025 Psychotherapy w/patient 30 minutes Bipolar disorder, in partial remission, most recent episode hypomanic Crystal Allegra TRUST CLERK Work Phone: Start: 08-22-2025 End: 08-22-2025 Psychotherapy w/patient 45 minutes Bipolar disorder, in partial remission, most recent episode hypomanic Crystal Allegra TRUST CLERK Work Phone: Start: 08-11-2025 End: 08-11-2025 Psychotherapy w/patient 30 minutes Post traumatic stress disorder Crystal Allegra TRUST CLERK Work Phone: Comment on above: Arrived Start: 08-04-2025 End: 08-04-2025 Psychotherapy w/patient 45 minutes Obsessive-compulsive disorder, unspecified type Crystal Allegra TRUST CLERK Work Phone: Comment on above: Arrived Start: 07-28-2025 End: 07-28-2025 Psychotherapy w/patient 45 minutes Obsessive-compulsive disorder, unspecified type Crystal Allegra TRUST CLERK Work Phone: Comment on above: Arrived Start: 07-13-2025 End: 07-13-2025 Psychotherapy w/patient 30 minutes Bipolar disorder, in partial remission, most recent episode hypomanic ([facility]HCC) Angela OVALLE Work Phone: Start: 06-22-2025 End: 06-22-2025 Psychotherapy w/patient 45 minutes Bipolar disorder, in partial remission, most recent episode hypomanic ([facility]) Angela OVALLE Work Phone: Start: 05-23-2025 End: 05-23-2025 Psychotherapy w/patient 45 minutes Borderline personality disorder ([facility]) Angela OVALLE Work Phone: Comment on above: Arrived Start: 05-08-2025 End: 05-08-2025 Psychotherapy w/patient 45 minutes Bipolar disorder in full remission, most recent episode unspecified type (HCC-CMS) Angela OVALLE Work Phone: Comment on above: Bipolar disorder in full remission, most recent episode unspecified type ([facility]-CMS) (Primary Dx) Start: 04-24-2025 Lipid 1996 panel - S farhan or Plasma Angela OVALLE Work Phone: Start: 04-19-2025 Urnls dip stick/tabl et rgnt auto w/o microscopy Tessa R Kiki MACHINE WOODWORKING SANDER.CAGER OPERATOR Work Phone: Start: 03-24-2025 End: 03-24-2025 Psychotherapy w/patient 45 minutes Generalized anxiety disorder with panic attacks Angela OVALLE Work Phone: Comment on above: Generalized anxiety disorder with panic attacks (Primary Dx) Start: 03-13-2025 End: 03-13-2025 Psychotherapy w/patient 30 minutes Mixed obsessional thoughts and acts Angela OVALLE Work Phone: Comment on above: Mixed obsessional th oughts and acts (Primary Dx) Start: 03-02-2025 End: 03-02-2025 Psychotherapy w/patient 45 minutes Post traumatic stress disorder Angela OVALLE Work Phone: Comment on above: Post traumatic stres s disorder (Primary Dx) Start: 02-20-2025 End: 02-20-2025 Psychotherapy w/patient 45 minutes Generalized anxiety disorder with panic attacks Angela OVALLE Work Phone: Comment on above: Generalized anxiety disorder with panic attacks (Primary Dx) Start: 02-13-2025 End: 02-13-2025 Psychotherapy w/patient 45 minutes Mixed obsessional thoughts and acts Angela OVALLE Work Phone: Comment on above: Mixed obsessional th oughts and acts (Primary Dx) Start: 02-07-2025 End: 02-07-2025 Psychotherapy w/patient 45 minutes Post traumatic stress disorder Angela OVALLE Work Phone: Comment on above: Post traumatic stres s disorder (Primary Dx) Start: 02-01-2025 Us breast uni real t noelle with image limited Everett Cruz MD Work Phone: Start: 02-01-2025 Digital breast tomosynthesis bilateral Everett Cruz MD Work Phone: Start: 01-17-2025 End: 01-17-2025 Psychotherapy w/patient 45 minutes Generalized anxiety disorder Angela OVALLE Work Phone: Comment on above: Generalized anxiety disorder (Primary Dx) Start: 01-12-2025 End: 01-12-2025 Psychotherapy w/patient 45 minutes Generalized anxiety disorder Angela OVALLE Work Phone: Comment on above: Generalized anxiety disorder (Primary Dx) Start: 01-03-2025 End: 01-06-2025 Psychotherapy w/patient 30 minutes Generalized anxiety disorder Angela OVALLE Work Phone: Comment on above: Generalized anxiety disorder (Primary Dx); Mixed obsessional thoughts and acts Start: 12-30-2024 End: 12-30-2024 Psychotherapy w/patient 60 minutes Generalized anxiety disorder Angela OVALLE Work Phone: Comment on above: Generalized anxiety disorder (Primary Dx); Bipolar disorder in full remission, most recent episode unspecified type ([facility]) Start: 11-25-2024 End: 11-25-2024 Psychotherapy w/patient 45 minutes Generalized anxiety disorder Angela OVALLE Work Phone: Comment on above: Generalized anxiety disorder (Primary Dx) Start: 10-28-2024 End: 10-28-2024 Psychotherapy w/patient 60 minutes Mixed obsessional thoughts and acts Angela OVALLE Work Phone: Comment on above: Mixed obsessional th oughts and acts (Primary Dx) Start: 10-11-2024 End: 10-14-2024 Psychotherapy w/patient 30 minutes Mixed obsessional thoughts and acts Angela OVALLE Work Phone: Comment on above: Mixed obsessional th oughts and acts (Primary Dx) Start: 09-08-2024 End: 09-08-2024 Psychotherapy w/patient 45 minutes Generalized anxiety disorder Angela OVALLE Work Phone: Comment on above: Generalized anxiety disorder (Primary Dx) Start: 08-09-2024 End: 08-09-2024 Psychotherapy w/patient 45 minutes Generalized anxiety disorder Angela OVALLE Work Phone: Comment on above: Generalized anxiety disorder (Primary Dx) Start: 07-28-2024 End: 07-28-2024 Psychotherapy w/patient 45 minutes Mixed obsessional thoughts and acts Angela OVALLE Work Phone: Comment on above: Mixed obsessional th oughts and acts (Primary Dx) Start: 07-19-2024 End: 07-19-2024 Psychotherapy w/patient 60 minutes Bipolar disorder, in partial remission, most recent episode depressed (HCC-CMS) Angela OVALLE Work Phone: Comment on above: Bipolar disorder, in partial remission, most recent episode depressed (HCC-CMS) (Primary Dx); Mixed obsessional thoughts and acts Start: 06-13-2024 Lipid 1996 panel - S farhan or Plasma Herberth Shethir DO Work Phone: Start: 05-10-2024 End: 05-10-2024 Psychotherapy w/patient 45 minutes Mixed obsessional thoughts and acts Angela OVALLE Work Phone: Comment on above: Mixed obsessional th oughts and acts (Primary Dx) Start: 05-03-2024 End: 05-03-2024 Psychotherapy w/patient 45 minutes Bipolar disorder, in partial remission, most recent episode depressed (HCC-CMS) Angela OVALLE Work Phone: Comment on above: Bipolar disorder, in partial remission, most recent episode depressed (HCC-CMS) (Primary Dx) Start: 04-22-2024 End: 04-22-2024 Psychotherapy w/patient 45 minutes Mixed obsessional thoughts and acts Angela OVALLE Work Phone: Comment on above: Mixed obsessional th oughts and acts (Primary Dx) Start: 04-14-2024 End: 04-14-2024 Psychotherapy w/patient 60 minutes Mixed obsessional thoughts and acts Angela OVALLE Work Phone: Comment on above: Mixed obsessional th oughts and acts (Primary Dx) Start: 04-04-2024 Radex ankle complete minimum 3 views Serene Higginbotham MD Work Phone: Start: 04-01-2024 End: 04-01-2024 Psychotherapy w/patient 30 minutes Generalized anxiety disorder Angela OVALLE Work Phone: Comment on above: Generalized anxiety disorder (Primary Dx) Start: 03-08-2024 End: 03-08-2024 Psychotherapy w/patient 60 minutes Generalized anxiety disorder Angela OVALLE Work Phone: Comment on above: Generalized anxiety disorder (Primary Dx) Start: 02-16-2024 End: 02-16-2024 Psychotherapy w/patient 30 minutes Generalized anxiety disorder Angela OVALLE Work Phone: Comment on above: Generalized anxiety disorder (Primary Dx) Start: 02-08-2024 Radex hand minimum 3 views Gabriela Andrade PA-C Work Phone: Start: 02-05-2024 End: 02-05-2024 Psychotherapy w/patient 60 minutes Bipolar disorder, in partial remission, most recent episode depressed (HCC-CMS) Angela OVALLE Work Phone: Comment on above: Bipolar disorder, in partial remission, most recent episode depressed (HCC-CMS) (Primary Dx); Generalized anxiety disorder Start: 01-28-2024 Radex hand minimum 3 views Gabriela Stills PA-C Work Phone: Start: 01-28-2024 End: 01-28-2024 Psychotherapy w/patient 45 minutes Generalized anxiety disorder Angela OVALLE Work Phone: Comment on above: Generalized anxiety disorder (Primary Dx); Mixed obsessional thoughts and acts Start: 01-22-2024 End: 01-22-2024 Psychotherapy w/patient 45 minutes Generalized anxiety disorder Angela OVALLE Work Phone: Comment on above: Generalized anxiety disorder (Primary Dx); Mixed obsessional thoughts and acts Start: 01-13-2024 End: 01-13-2024 Psychotherapy w/patient 45 minutes Mixed obsessional thoughts and acts Angela OVALLE Work Phone: Comment on above: Mixed obsessional th oughts and acts (Primary Dx); Generalized anxiety disorder Start: 01-01-2024 Radex hand minimum 3 views Gabriela Stills PA-C Work Phone: Start: 12-28-2023 Radex hand minimum 3 views Tia Bowen APRN.CAGER OPERATOR Work Phone: Start: 12-24-2023 End: 12-24-2023 Psychotherapy w/patient 60 minutes Generalized anxiety disorder Angela OVALLE Work Phone: Comment on above: Generalized anxiety disorder (Primary Dx); Mixed obsessional thoughts and acts Start: 12-17-2023 End: 12-17-2023 Psychotherapy w/patient 45 minutes Mixed obsessional thoughts and acts Angela OVALLE Work Phone: Comment on above: Mixed obsessional th oughts and acts (Primary Dx) Start: 12-10-2023 End: 12-10-2023 Psychotherapy w/patient 60 minutes Generalized anxiety disorder Angela OVALLE Work Phone: Comment on above: Generalized anxiety disorder (Primary Dx) Start: 11-13-2023 End: 11-13-2023 Psychotherapy w/patient 60 minutes Mixed obsessional thoughts and acts Angela OVALLE Work Phone: Comment on above: Mixed obsessional th oughts and acts (Primary Dx) Start: 10-30-2023 End: 10-30-2023 Psychotherapy w/patient 60 minutes Mixed obsessional thoughts and acts Angela OVALLE Work Phone: Comment on above: Mixed obsessional th oughts and acts (Primary Dx); Generalized anxiety disorder Start: 09-29-2023 Culture bacterial quanttative colony count urine Jcarlos Murguia MACHINE WOODWORKING SANDER.CAGER OPERATOR Work Phone: Start: 09-29-2023 Urnls dip stick/tabl et rgnt auto w/o microscopy Jcarlos Murguia MACHINE WOODWORKING SANDER.CAGER OPERATOR Work Phone: Start: 08-14-2023 End: 08-14-2023 Psychotherapy w/patient 45 minutes Generalized anxiety disorder Angela OVALLE Work Phone: Comment on above: Generalized anxiety disorder (Primary Dx); Obsessive-compulsive disorder, unspecified type Start: 08-07-2023 End: 08-07-2023 Psychotherapy w/patient 60 minutes Obsessive-compulsive disorder, unspecified type Angela OVALLE Work Phone: Comment on above: Obsessive-compulsive disorder, unspecified type (Primary Dx); Generalized anxiety disorder Start: 07-15-2023 End: 07-15-2023 Psychotherapy w/patient 60 minutes Generalized anxiety disorder Angela GU Work Phone: Comment on above: Generalized anxiety disorder (Primary Dx); Obsessive-compulsive disorder, unspecified type Start: 07-14-2023 Urnls dip stick/tabl et rgnt auto w/o microscopy Huan Schwhazel MACHINE WOODWORKING SANDER.CAGER OPERATOR Work Phone: Start: 07-10-2023 End: 07-10-2023 Psychotherapy w/patient 60 minutes Post traumatic stress disorder Angela GU Work Phone: Comment on above: Post traumatic stres s disorder (Primary Dx); Generalized anxiety disorder Start: 07-02-2023 End: 07-02-2023 Psychotherapy w/patient 60 minutes Obsessive-compulsive disorder, unspecified type Angela GU Work Phone: Comment on above: Obsessive-compulsive disorder, unspecified type (Primary Dx); Post traumatic stress disorder Start: 06-25-2023 End: 06-25-2023 Psychotherapy w/patient 60 minutes Generalized anxiety disorder Angela SOTOW Work Phone: Comment on above: Generalized anxiety disorder (Primary Dx); Obsessive-compulsive disorder, unspecified type Start: 06-02-2023 End: 06-02-2023 Psychotherapy w/patient 30 minutes Bipolar disorder, current episode mixed, severe, without psychotic features ([facility]-CMS) Angela Dinh MANAGER OF PROGRAM Work Phone: Comment on above: Bipolar disorder, cu rrent episode mixed, severe, without psychotic features (HCC-CMS) (Primary Dx) Start: 05-29-2023 End: 05-29-2023 Psychotherapy w/patient 30 minutes Bipolar II disorder ([facility]-CMS) Angela SOTOW Work Phone: Comment on above: Bipolar II disorder (HCC-CMS) (Primary Dx) Start: 05-15-2023 End: 05-15-2023 Psychotherapy w/patient 60 minutes Generalized anxiety disorder Angela SOTOW Work Phone: Comment on above: Generalized anxiety disorder (Primary Dx); Post traumatic stress disorder Start: 04-23-2023 End: 04-23-2023 Psychotherapy w/patient 60 minutes Generalized anxiety disorder Angela SOTOW Work Phone: Comment on above: Generalized anxiety disorder (Primary Dx); Post traumatic stress disorder Start: 09-09-2022 Urnls dip stick/tabl et rgnt auto w/o microscopy [facility] Start: 09-05-2022 Insertion intrauteri ne device iud Shalonda Krause APRN.[facility] Work Phone: Start: 07-10-2022 URINE OB DIP B/O Shalonda goldman APRN.[facility] Work Phone: Start: 06-24-2022 Us preg uterus after 1st trimest 11/23 gestation Chitra Nava MD Work Phone: Start: 06-03-2022 URINE OB DIP B/O Shalonda P earce MACHINE WOODWORKING SANDER.CNM Work Phone: Start: 06-03-2022 Hemoglobin A1c/Hemoglobin.total in Blood Vincent Ocampo DO Work Phone: Start: 04-17-2022 URINE OB DIP B/O Shalonda P earce MACHINE WOODWORKING SANDER.CNM Work Phone: Start: 03-11-2022 Us preg uterus after 1st trimest 11/23 gestation Ana Beard MD Work Phone: Start: 03-06-2022 URINE OB DIP B/O Shalonda P earce MACHINE WOODWORKING SANDER.CNM Work Phone: Start: 12-03-2020 Adult depression screening assessment Shalonda Krause MACHINE WOODWORKING SANDER.CNM Work Phone: Plan of Treatment Date Care Activity Detail Author Start: 06-03-2032 Tetanus vaccination Imm-DTaP/Tdap/Td (9 - Td or Tdap) [facility] Start: 06-03-2032 Urine microalbumin profile [facility] Start: 02-18-2031 Urine microalbumin profile DTAP,TDAP,TD (8 - Td or Tdap) [facility] Start: 08-14-2026 Tobacco Screening Tobacco Screening [facility] Start: 07-04-2026 Diabetes mellitus screening Diabetes Screening [facility] Start: 06-23-2026 Diabetes mellitus screening Diabetes Screening [facility] Start: 06-19-2026 Tobacco Screening Tobacco Screening [facility] Start: 05-24-2026 Diabetes mellitus screening Diabetes Screening [facility] Start: 05-22-2026 Diabetes mellitus screening Diabetes Screening [facility] Start: 05-15-2026 Diabetes mellitus screening Diabetes Screening [facility] Start: 05-11-2026 Tobacco Screening Tobacco Screening [facility] Start: 05-01-2026 Tobacco Screening Tobacco Screening [facility] Start: 04-24-2026 Diabetes mellitus screening Diabetes Screening [facility] Start: 04-24-2026 Hypertension screening Hypertension Screening (#1) [facility] Start: 04-24-2026 Lipid panel Lipid Screening [facility] Start: 04-24-2026 Tobacco Screening Tobacco Screening [facility] Start: 03-28-2026 Diabetes mellitus screening Diabetes Screening [facility] Start: 03-20-2026 Tobacco Screening Tobacco Screening [facility] Start: 03-07-2026 Diabetes mellitus screening Diabetes Screening [facility] Start: 02-27-2026 Diabetes mellitus screening Diabetes Screening [facility] Start: 02-27-2026 Tobacco Screening Tobacco Screening [facility] Start: 02-20-2026 Tobacco Screening Tobacco Screening [facility] Start: 02-14-2026 Diabetes mellitus screening Diabetes Screening [facility] Start: 01-20-2026 Diabetes mellitus screening Diabetes Screening [facility] Start: 01-13-2026 Diabetes mellitus screening Diabetes Screening [facility] Start: 01-12-2026 Diabetes mellitus screening Diabetes Screening [facility] Start: 12-30-2025 Tobacco Screening Tobacco Screening [facility] Start: 12-05-2025 Tobacco Screening Tobacco Screening [facility] Start: 10-03-2025 Tobacco Screening Tobacco Screening [facility] Start: 09-17-2025 PAP TESTING PAP TESTING [facility] Start: 09-17-2025 Screening for malignant neoplasm of cervix Pap Testing [facility] Start: 07-24-2025 [id number] ( season) [id number] () [facility] Start: 07-24-2025 [id number] ( season) Caw-[id number]-16 () [facility] Start: 07-24-2025 Influenza vaccination [facility] Start: 07-17-2025 End: 07-17-2025 Patient encounter procedure 07/17/2025 2:15 PM EDT Office Visit Gastroenterology [place] [address] [facility] [place] [phone] Bekah Ashley PA-C [address] [facility] [place] [address] elevated liver enzymes [facility] [place] Comment on above: elevated liver enzymes Start: 06-21-2025 End: 06-21-2025 Patient encounter procedure 06/21/2025 11:00 AM EDT Office Visit Neurology [address] [facility] [address], [place] [address] Jaja Moss APRN.CAGER OPERATOR [address] [place] [address] Botox Neurology Comment on above: Botox Start: 06-13-2025 Diabetes mellitus screening Diabetes Screening [facility] Start: 06-13-2025 Hypertension screening Hypertension Screening (#1) [facility] Start: 06-13-2025 Lipid panel Lipid Screening [facility] Start: 06-13-2025 Tobacco Screening Tobacco Screening [facility] Start: 05-30-2025 End: 05-30-2025 Patient encounter procedure 05/30/2025 2:20 PM EDT Office Visit Internal Medicine [place] [address] [place] [address] [place] [address] [place] [address] Hospital Discharge follow UP [facility] [place] Comment on above: Hospital Discharge follow UP Start: 05-01-2025 End: 10-21-2025 Hemoglobin glycosylated a1c HEMOGLOBIN GLYCOSYLATED A1C Routine Lab Routine Screening for endocrine, metabolic and immunity disorder Long-term use of high-risk medication Expected: 05/01/2025, Expires: 10/21/2025 [employer] Phone: Comment on above: Expected: 05/01/2025, Expires: Start: 05-01-2025 End: 10-24-2025 Lipid panel LIPID PANEL WITH REFLEX Routine Lab Routine Screening for endocrine, metabolic and immunity disorder Long-term use of high-risk medication Expected: 05/01/2025, Expires: 10/24/2025 [employer] Phone: Comment on above: Expected: 05/01/2025, Expires: 5 Start: 04-26-2025 End: 04-26-2025 Patient encounter procedure 04/26/2025 1:45 PM EDT Office Visit OB/Gynecology [address] [place], [place] [id number] Ese Toledo APRN.CAGER OPERATOR [address] [place] [address] Possibly uti OB/Gynecology Comment on above: Possibly uti Start: 04-22-2025 Tobacco Screening Tobacco Screening [facility] Start: 04-07-2025 Tobacco Screening Tobacco Screening [facility] Start: 03-29-2025 End: 03-29-2025 Patient encounter procedure 03/29/2025 2:30 PM EDT Office Visit Neurology [address] [place] [address] Jaja Moss APRN.CAGER OPERATOR [address] [place] [address] Botox Neurology Comment on above: Botox Start: 03-23-2025 End: 03-23-2025 Patient encounter procedure 03/23/2025 8:00 AM EDT Office Visit [facility] [address] [facility] [address] [place] [address] Júnior Price MD [address] [place] [address] Hospital Follow up [facility] Comment on above: Hospital Follow up Start: 03-21-2025 Tobacco Screening Tobacco Screening [facility] Start: 03-17-2025 End: 03-17-2025 Patient encounter procedure Neurology Comment on above: 12w botox hospital follow up Start: 03-13-2025 End: 03-13-2025 Patient encounter procedure 03/13/2025 10:00 AM EDT Office Visit Allergy [address] [place] [address] Sissy Felton, MACHINE WOODWORKING SANDER.[employer] TEACHER [address] [place] [address] ?NONE/hospital follow up, antibiotic allergy Allergy Comment on above: ?NONE/hospital follow up, antibiotic all ergy Start: 03-11-2025 Tobacco Screening Tobacco Screening [facility] Start: 03-10-2025 [facility] Start: 02-21-2025 Tobacco Screening Tobacco Screening [facility] Start: 02-03-2025 End: 02-03-2025 Patient encounter procedure 02/03/2025 10:00 AM EDT Office Visit Allergy [address] [address] David Gustafson DO [address] [place] [address] NEW Allergy appt w/[facility] for 1mo or earlier Allergy Comment on above: NEW Allergy appt w/[facility] for 1mo or ea rlier Start: 02-01-2025 End: 05-03-2025 [facility] INVITAE HEREDITARY DIAGNOSTIC CANCER PANEL [facility] HEREDITARY DIAGNOSTIC CANCER PANEL Lab Routine Nipple discharge Family history of breast cancer Family history of ovarian cancer Expected: 02/01/2025, Expires: 05/03/2025 [facility] Work Phone: Comment on above: Expected: 02/01/2025, Expires: Start: 02-01-2025 End: 02-01-2025 Patient encounter procedure Mammography Comment on above: breast abscess, lesion imaging 1st// breast abscess, lesion Start: 01-28-2025 Tobacco Screening Tobacco Screening [facility] Start: 01-18-2025 End: 01-18-2025 Patient encounter procedure 01/18/2025 2:20 PM EST Office Visit Internal Medicine [place] [address] [place] [phone] [place] [address] [facility] [place] [address] [address] hospital follow up at [facility] for left breast cellulitis. [facility] [place] Comment on above: Needs hospital follow up at [facility] for left breast cellulitis. Start: 01-12-2025 End: 01-12-2025 ambulatory 01/12/2025 3:00 PM EST [facility] Infectious Disease [address] [id number] Nargis Nelson MD [address] [place] [address] hospital f/u Cellulitis of left breast Infectious Disease Comment on above: vv hospital f/u Cellulitis of left breas t Start: 01-08-2025 Tobacco Screening Tobacco Screening [facility] Start: 01-01-2025 Tobacco Screening Tobacco Screening [facility] Start: 12-20-2024 End: 12-20-2024 Patient encounter procedure 12/20/2024 9:30 AM EST Office Visit Neurology [id number] [place] [address] Jaja Moss, MACHINE WOODWORKING SANDER.CAGER OPERATOR [address] [place] [address] [facility] Comment on above: Botox Start: 12-11-2024 Tobacco Screening Tobacco Screening [facility] Start: 11-23-2024 Depression screening Depression Annual Screen [facility] Start: 11-23-2024 Screening for substance abuse Alcohol and Drug Screen [facility] Start: 11-17-2024 End: 11-17-2024 ambulatory 11/17/2024 8:20 AM [facility] [address] [id number] [place] [address] [id number] Bronchitis, ear pain Family Medicine Comment on above: Bronchitis, ear pain Start: 10-09-2024 Tobacco Screening Tobacco Screening [facility] Start: 09-27-2024 End: 09-27-2024 Patient encounter procedure 09/27/2024 10:00 AM EST Office Visit Neurology [address] [place] [address] Jaja Moss, MACHINE WOODWORKING SANDER.CAGER OPERATOR [address] [place] [address] [facility] Comment on above: Botox Start: 09-20-2024 End: 10-20-2025 XR Hand - left PA and Lateral and Oblique XR HAND GENERAL 3V PA/LAT/OBL LEFT Radiology STAT Hand injury, left, initial encounter Expected: 09/20/2024, Expires: 10/20/2025 [facility] Work Phone: Comment on above: Expected: 09/20/2024, Expires: Start: 09-04-2024 Tobacco Screening Tobacco Screening [facility] Start: 08-22-2024 End: 08-22-2024 Patient encounter procedure 08/22/2024 11:30 AM EDT Office Visit [facility] [address] [address] Karla Espinoza, MACHINE WOODWORKING SANDER.CAGER OPERATOR [address] [place] [address] Vaginl itcing burning and pain [facility] Comment on above: Vaginl itcing burning and pain Start: 07-24-2024 Covid-19 Vaccine ( season) Covid-19 Vaccine ( season) [facility] Start: 07-24-2024 Covid-19 Vaccine ( season) Covid-19 Vaccine () [facility] Start: 07-24-2024 [id number]-84 ( season) Ibr-UHAKQ-07 ( season) [facility] Start: 07-24-2024 Flz-VIHAT-98 ( season) Wym-[id number]-28 ( season) [facility] Start: 07-24-2024 Influenza vaccination [facility] Start: 07-06-2024 Tobacco Screening Tobacco Screening [facility] Start: 07-04-2024 End: 07-04-2024 Patient encounter procedure 07/04/2024 10:00 AM EDT Office Visit Neurology [address] [place] [address] Jaja Moss, ERIC.CAGER OPERATOR [address] [place] [address] [facility] Comment on above: Botox Start: 04-04-2024 End: 04-04-2024 Patient encounter procedure Neurology Comment on above: Botox 200u (06/10/2024) 03/21 SC 10 days follow-up/ L eft Tibia Fibula Pain left ankle and foot, AP/LAT, weight bearing w/ gravity stress view of ankle. Start: 01-28-2024 COVID-19 VACCINE (#1) COVID-19 VACCINE (#1) [facility] Comment on above: Postponed from 1991 (Declined at t his time) Start: 12-20-2023 Diabetes mellitus screening Diabetes Screening [facility] Start: 11-23-2023 Behavioral Health Screening Behavioral Health Screening [facility] Start: 11-23-2023 Depression Assessment Depression Assessment [facility] Start: 11-23-2023 Depression screening Depression Annual Screen [facility] Start: 11-23-2023 Screening for substance abuse Alcohol and Drug Screen [facility] Start: 09-23-2023 Diabetes mellitus screening Diabetes Screening [facility] Start: 09-17-2023 Screening for malignant neoplasm of cervix Cervical Cancer Screening [facility] Start: 07-24-2023 Covid-19 Vaccine ( season) Covid-19 Vaccine () [facility] Start: 07-24-2023 [id number]-23 ( season) Aya-[id number]-49 ( season) [facility] Start: 07-24-2023 Influenza vaccination [facility] Start: 06-03-2023 Diabetes mellitus screening Diabetes Screening [facility] Start: 05-06-2023 Serologic test for syphilis Syphilis Screening [facility] Start: 11-23-2022 DEPRESSION ASSESSMENT DEPRESSION ASSESSMENT [facility] Start: 11-23-2022 Depression screening Depression Annual Screen [facility] Start: 11-23-2022 Screening for substance abuse Alcohol and Drug Screen [facility] Start: 10-01-2022 End: 12-01-2022 GLUC HALLE, 2-HR NON-GEST, 75 GM, FASTING GLUC HALLE, 2-HR NON-GEST, 75 GM, FASTING Lab Routine Diet controlled gestational diabetes mellitus (GDM) in third trimester Expected: 10/01/2022 (Approximate), Expires: 12/01/2022 [facility] Work Phone: Comment on above: Expected: 10/01/2022 (Approximate), Expi res: 12/01/2022 Start: 09-05-2022 End: 11-05-2022 GLUC HALLE, 2-HR NON-GEST, 75 GM, FASTING GLUC HALLE, 2-HR NON-GEST, 75 GM, FASTING Lab Routine History of gestational diabetes Expected: 09/05/2022, Expires: 11/05/2022 [facility] Work Phone: Comment on above: Expected: 09/05/2022, Expires: 2 Start: 07-24-2022 Influenza vaccination [facility] Start: 07-21-2022 End: 09-20-2022 CBC panel - Blood by Automated count CBC Lab Routine 37 weeks gestation of Expected: 07/21/2022, Expires: 09/20/2022 [facility] Work Phone: Comment on above: Expected: 07/21/2022, Expires: 2 Start: 07-21-2022 End: 09-20-2022 TYPE + SCREEN TYPE + SCREEN Blood Bank Routine 37 weeks gestation of Expected: 07/21/2022, Expires: 09/20/2022 [facility] Work Phone: Comment on above: Expected: 07/21/2022, Expires: 2 Start: 04-17-2022 End: 06-17-2022 CBC panel - Blood by Automated count CBC Lab Routine 25 weeks gestation of Expected: 04/17/2022, Expires: 06/17/2022 [facility] Work Phone: Comment on above: Expected: 04/17/2022, Expires: 2 Start: 04-17-2022 End: 06-17-2022 GEST GLUC SCREEN, 1-HR, 50 GM, NON-FASTING GEST GLUC SCREEN, 1-HR, 50 GM, NON-FASTING Lab Routine 25 weeks gestation of Expected: 04/17/2022, Expires: 06/17/2022 [facility] Work Phone: Comment on above: Expected: 04/17/2022, Expires: 2 Start: 04-17-2022 End: 06-17-2022 SYPHILIS TOTAL W/REFLEX SYPHILIS TOTAL W/REFLEX Lab Routine 25 weeks gestation of Expected: 04/17/2022, Expires: 06/17/2022 [facility] Work Phone: Comment on above: Expected: 04/17/2022, Expires: 2 Start: 12-03-2021 Adult depression screening assessment DEPRESSION SCREENING [facility] Start: 11-23-2021 DEPRESSION ASSESSMENT DEPRESSION ASSESSMENT [facility] Start: 2021 HPV TESTING HPV TESTING [facility] Start: 2021 Screening for malignant neoplasm of cervix HPV Testing [facility] Start: 2012 Screening for malignant neoplasm of cervix [facility] Start: 2009 Annual Preventive Care Visit Annual Preventive Care Visit [facility] Start: 2009 Depression Screening Depression Screening [facility] Start: 2009 Hypertension screening Hypertension Screening (#1) [facility] Start: 03-25-2008 HPV VACCINE (3 - 3-dose series) HPV VACCINE (3 - 3-dose series) [facility] Start: 02-17-2008 HPV Vaccine (3 - 3-dose series) HPV Vaccine (3 - 3-dose series) [facility] Start: 02-17-2008 Vaccination for human papillomavirus Imm-HPV (3 - 3-dose series) [facility] Start: 09-15-2007 HEPATITIS B (3 of 3 - 3-dose series) HEPATITIS B (3 of 3 - 3-dose series) [facility] Start: 09-15-2007 Hepatitis B vaccination Imm-Hepatitis B (3 of 3 - 3-dose series) [facility] Start: 2006 Relationship Safety Screening Relationship Safety Screening [facility] Start: 2006 Relationship Safety Screening/Counseling Relationship Safety Screening/Counseling [facility] Start: 01-08-2005 Serologic test for syphilis Syphilis Screening [facility] Start: 2005 Serologic test for syphilis Syphilis Screening [facility] Start: 2003 Depression screening Depression Annual Screen (#1) [facility] Start: 1996 COVID-19 VACCINE (#1) COVID-19 VACCINE (#1) [facility] Start: 1996 COVID-19 VACCINE (1) COVID-19 VACCINE (1) [facility] Start: 1991 COVID-19 VACCINE (#1) COVID-19 VACCINE (#1) [facility] Start: 1991 Lik-[id number]-18 (#1) [id number]-26 (#1) [facility] Start: 1991 Advanced Care Planning Advanced Care Planning [facility] Start: 1991 Anxiety Screening Anxiety Screening [facility] Start: 1991 Hepatitis C screening Hepatitis C Screening [facility] Start: 1991 Lipid panel Lipid Screening [facility] Start: 1991 Screening for malignant neoplasm of cervix [facility] Start: 1991 Tobacco Screening Tobacco Screening [facility] Bacteria identified in Urine by Culture URINE CULTURE Microbiology Routine UTI symptoms Ordered: 09/09/2022 [facility] Work Phone: Comment on above: Ordered: 09/09/2022 Bacteria identified in Urine by Culture URINE CULTURE Microbiology Routine Dysuria 07/14/2023 10:31 AM EDT [facility] Work Phone: Bacteria identified in Urine by Culture BACTERIAL CULTURE, URINE Microbiology Routine Dysuria 04/19/2025 12:21 PM EDT [facility] BACTERIAL VAGINOSIS NAAT BACTERIAL VAGINOSIS NAAT Lab Routine Vaginal irritation Ordered: 09/07/2024 [facility] Comment on above: Ordered: 09/07/2024 BACTERIAL VAGINOSIS NAAT BACTERIAL VAGINOSIS NAAT Lab Routine Vaginal discharge Ordered: 10/24/2024 [facility] Comment on above: Ordered: 10/24/2024 BACTERIAL VAGINOSIS NAAT BACTERIAL VAGINOSIS NAAT Lab Routine Acute vaginitis 04/19/2025 12:21 PM EDT [facility] Work Phone: ALESSANDRA/TRICHOMONAS NAAT ALESSANDRA/TRICHOMONAS NAAT Lab Routine Vaginal irritation Ordered: 09/07/2024 [facility] Work Phone: Comment on above: Ordered: 09/07/2024 ALESSANDRA/TRICHOMONAS NAAT ALESSANDRA/TRICHOMONAS NAAT Lab Routine Vaginal discharge Ordered: 10/24/2024 [facility] Work Phone: Comment on above: Ordered: 10/24/2024 ALESSANDRA/TRICHOMONAS NAAT ALESSANDRA/TRICHOMONAS NAAT Lab Routine Acute vaginitis 04/19/2025 12:21 PM EDT [facility] Chlamydia trachomatis+Neisseria gonorrhoeae DNA [Presence] in Unspecified specimen by LAURA with probe detection GONORRHEA/CHLAMYDIA NAAT Lab Routine Vaginal discharge Ordered: 10/24/2024 [facility] Comment on above: Ordered: 10/24/2024 End: 11-10-2025 Comprehensive metabolic panel COMPREHENSIVE METABOLIC PANEL Routine Lab Routine Long-term use of high-risk medication 1 Occurrences starting 05/11/2025 until 11/10/2025 [employer] Phone: Comment on above: 1 Occurrences starting 05/11/2025 until 11/10/2025 End: 11-10-2025 Drug assay valproic dipropylacetic acid total DRUG ASSAY VALPROIC DIPROPYLACETIC ACID TOTAL Routine Lab Routine Long-term use of high-risk medication 1 Occurrences starting 05/11/2025 until 11/10/2025 [employer] Phone: Comment on above: 1 Occurrences starting 05/11/2025 until 11/10/2025 End: 03-02-2026 MG Breast - bilateral Diagnostic JUDITH DIAGNOSTIC BILATERAL Radiology Routine Breast lesion 1 Occurrences starting 01/31/2025 until 03/02/2026 [facility] Work Phone: Comment on above: 1 Occurrences starting 01/31/2025 until 03/02/2026 NEURO CARDIO AUTONOM IC REFLEX W/WO TILT NEURO CARDIO AUTONOMIC REFLEX W/WO TILT Procedures Routine Lightheadedness Ordered: 10/28/2022 [facility] Work Phone: Comment on above: Ordered: 10/28/2022 OBSTETRIC ULTRASOUND WHI OBSTETRIC ULTRASOUND WHI Anc Imaging Routine Encounter for long-term (current) use of medications Ordered: 05/06/2022 [facility] Work Phone: Comment on above: Ordered: 05/06/2022 Patient Education Dental Abscess [facility] Work Phone: Patient referral [facility] Work Phone: ROUTINE, GROUP B STREP PCR ROUTINE, GROUP B STREP PCR Microbiology Routine care in third trimester 06/25/2022 1:46 PM EDT [facility] Work Phone: ROUTINE, GROUP B STREP PCR ROUTINE, GROUP B STREP PCR Microbiology Routine 37 weeks gestation of Ordered: 07/10/2022 [facility] Work Phone: Comment on above: Ordered: 07/10/2022 SARS-CoV-2 (COVID-19 ) RNA [Presence] in Respiratory specimen by LAURA with probe detection SELF CHECK COVID Microbiology Routine 37 weeks gestation of Ordered: 07/10/2022 [facility] Work Phone: Comment on above: Ordered: 07/10/2022 End: 10-24-2025 URINE DRUG PANEL Urine Routine URINE DRUG PANEL Urine Routine Lab Routine Encounter for observation for other suspected diseases and conditions ruled out 1 Occurrences starting 04/24/2025 until 10/24/2025 [facility] Work Phone: Comment on above: 1 Occurrences starting 04/24/2025 until 10/24/2025 URINE OB DIP B/O URINE OB DIP B/ O Lab Routine care, subsequent , third trimester Ordered: 05/06/2022 [facility] Work Phone: Comment on above: Ordered: 05/06/2022 End: 03-02-2026 US Breast - left limited US BREAST LTD LEFT Radiology Routine Breast lesion 1 Occurrences starting 01/31/2025 until 03/02/2026 [facility] Work Phone: Comment on above: 1 Occurrences starting 01/31/2025 until 03/02/2026 End: 05-01-2025 XR Ankle - left AP and Lateral and oblique XR ANKLE GENERAL 3V AP/LAT/OBL LEFT Radiology Routine Sprain of left ankle, unspecified ligament, initial encounter 1 Occurrences starting 04/03/2024 until 05/01/2025 [facility] Work Phone: Comment on above: 1 Occurrences starting 04/03/2024 until 05/01/2025 End: 05-01-2025 XR Foot - left AP and Lateral and oblique XR FOOT GENERAL 3V AP/LAT/OBL LEFT Radiology Routine Pain in left foot 1 Occurrences starting 04/03/2024 until 05/01/2025 [facility] Comment on above: 1 Occurrences starting 04/03/2024 until 05/01/2025 End: 01-30-2025 XR Hand - left PA and Lateral and Oblique XR HAND GENERAL 3V PA/LAT/OBL LEFT Radiology Routine Pain 1 Occurrences starting 01/01/2024 until 01/30/2025 [facility] Work Phone: Comment on above: 1 Occurrences starting 01/01/2024 until 01/30/2025 End: 02-26-2025 XR Hand - left PA and Lateral and Oblique XR HAND GENERAL 3V PA/LAT/OBL LEFT Radiology Routine Closed nondisplaced fracture of shaft of fifth metacarpal bone of left hand with routine healing, subsequent encounter 1 Occurrences starting 01/28/2024 until 02/26/2025 [facility] Work Phone: Comment on above: 1 Occurrences starting 01/28/2024 until 02/26/2025 [facility] Immunizations Immunization Date Immunization Notes Care Provider Fa cili 01-27-2023 hepatitis B vaccine, adult dosage Maile Beaver MD Work Phone: [facility] 07-24-2022 measles, mumps and rubella virus vaccine Jaja Froimson MACHINE WOODWORKING SANDER.CAGER OPERATOR Work Phone: [facility] 06-03-2022 tetanus toxoid, reduced diphtheria toxoid, and acellular pertussis vaccine, adsorbed Shalonda Krause MACHINE WOODWORKING SANDER.CNM Work Phone: [facility] 02-18-2021 tetanus toxoid, reduced diphtheria toxoid, and acellular pertussis vaccine, adsorbed Shalonda Krause MACHINE WOODWORKING SANDER.CNM Work Phone: [facility] 03-07-2018 tetanus toxoid, reduced diphtheria toxoid, and acellular pertussis vaccine, adsorbed Shalonda Krause MACHINE WOODWORKING SANDER.CNM Work Phone: [facility] Work Phone: 11-25-2007 human papilloma viru s vaccine, quadrivalent Shalonda Krause MACHINE WOODWORKING SANDER.CNM Work Phone: [facility] Work Phone: 07-21-2007 hepatitis B vaccine, pediatric or pediatric/adolescent dosage Shalonda Krause APRN.CNM Work Phone: [facility] Work Phone: 07-21-2007 human papilloma viru s vaccine, quadrivalent Shalonda Krause APRN.CNM Work Phone: [facility] Work Phone: 07-21-2007 Meningococcal, MCV4, unspecified conjugate formulation(groups A, C, Y and W-135) Shalonda Krause APRN.CNM Work Phone: [facility] Work Phone: 07-21-2007 tetanus toxoid, reduced diphtheria toxoid, and acellular pertussis vaccine, adsorbed Shalonda Krause APRN.CNM Work Phone: [facility] Work Phone: 07-21-2007 hepatitis B vaccine, unspecified formulation Vincent Ocampo Work Phone: [facility] 10-30-2006 hepatitis B vaccine, pediatric or pediatric/adolescent dosage Shalonda Krause APRN.CNM Work Phone: [facility] 08-09-1992 diphtheria, tetanus toxoids and pertussis vaccine Shalonda Krause APRN.CNM Work Phone: [facility] Work Phone: 08-09-1992 trivalent poliovirus vaccine, live, oral Shalonda Krause APRN.CNM Work Phone: [facility] Work Phone: 06-07-1992 haemophilus influenz ae type b vaccine, HbOC conjugate Shalonda Krause APRN.CNM Work Phone: [facility] Work Phone: 06-07-1992 measles, mumps and rubella virus vaccine Shalonda Krause APRN.CNM Work Phone: [facility] Work Phone: 02-14-1992 diphtheria, tetanus toxoids and pertussis vaccine Shalonda Krause MACHINE WOODWORKING SANDER.CNM Work Phone: [facility] Work Phone: 02-14-1992 haemophilus influenz ae type b vaccine, HbOC conjugate Shalonda Krause MACHINE WOODWORKING SANDER.CNM Work Phone: [facility] Work Phone: 1991 diphtheria, tetanus toxoids and pertussis vaccine Shalonda Krause MACHINE WOODWORKING SANDER.CNM Work Phone: [facility] Work Phone: 1991 haemophilus influenz ae type b vaccine, HbOC conjugate Shalonda Krause MACHINE WOODWORKING SANDER.CNM Work Phone: [facility] Work Phone: 1991 trivalent poliovirus vaccine, live, oral Shalonda Krause MACHINE WOODWORKING SANDER.CNM Work Phone: [facility] Work Phone: 1991 diphtheria, tetanus toxoids and pertussis vaccine Shalonda Krause MACHINE WOODWORKING SANDER.CNM Work Phone: [facility] Work Phone: 1991 haemophilus influenz ae type b vaccine, HbOC conjugate Shalonda Krause MACHINE WOODWORKING SANDER.CNM Work Phone: [facility] Work Phone: 1991 trivalent poliovirus vaccine, live, oral Shalonda Krause MACHINE WOODWORKING SANDER.CNM Work Phone: [facility] Work Phone: NEGATED: Highlighted row has not occurred!04-19-2021 measles, mumps and rubella virus vaccine Shalonda Krause MACHINE WOODWORKING SANDER.CNM Work Phone: [facility] Comment on above: Deferred: Patient Re fused - VIS given, patient declined vaccine. Payers Date Payer Category Payer Self-pay [id number] 2021 Medicaid [employer] [employer] [place] [employer] [id number] 2021-Present [phone] [facility] [address] [place] [address] Medicaid [id number] 2021 Medicaid [id number] 2021 Unknown [id number] 1991 Unknown [id number] Unknown Unknown [id number] Unknown [id number] Unknown [id number] Social History Date Type Detail Facility [facility] Start: 12-06-2022 Tobacco sm[place] [facility] [place]: 11-08-2013 End: 03-27-2023 Tobacco smoking status NHIS Never smoked tobacco [facility] Start: 02-04-2022 End: 10-24-2024 Alcohol intake Current non-drinker of alcohol (finding) [facility] Start: 07-05-2008 End: 07-16-2022 Tobacco Comment Pt denies [facility] Start: 11-04-2021 [facility] Start: 1990 Sex Assigned At Female C [facility] Start: 02-01-2022 End: 07-15-2023 Exposure to SARS-CoV-2 (event) Not sure [facility] Start: 11-08-2013 End: 03-27-2023 Tobacco use and exposure Smokeless tobacco non-user [facility] Work Phone: Start: 01-01-2023 End: 06-19-2025 Alcohol intake Ex-drinker (finding) [facility] Work Phone: Start: 04-26-2021 Alcohol Comment has not drank since she was 18 [facility] Work Phone: Start: 04-25-2021 End: 08-05-2024 History of Social function [facility] Start: 04-25-2021 End: 08-05-2024 Social Connections [facility] Start: 10-24-2012 Social Connections a nd Isolation 0 [facility] Start: 09-28-2019 Gender identity Identifies as female gender (finding) [facility] Work Phone: Start: 09-28-2019 Sexual orientation Heterosexual (fin ding) [facility] Work Phone: The thought of [place] myself has occurred to me Never [facility] Do you belong to any clubs or organizations such as gnosticism groups, unions, fraternal or athletic groups, or school groups? Yes [facility] Are you now , , , , never or living with a partner? [facility] Do you feel stress - tense, restless, nervous, or anxious, or unable to sleep at night because your mind is troubled all the time - these days [OSQ] Only a little [facility] (I/We) worried wheth er (my/our) food would run out before (I/we) got money to buy more. Never true [facility] In the past 12 month s, was there a time when you were not able to pay the mortgage or rent on time? No [facility] Start: 11-09-2024 End: 08-14-2025 Alcoholic beverage intake Current drinker of alcohol (finding) [facility] Start: 11-09-2024 Alcohol Comment rare Clevelmaría [facility] Start: 12-30-2024 Alcohol Comment Started matthew ang again daily in August [facility] Work Phone: Start: 01-30-2025 Alcohol Comment hasn't had any thing to drink in a couple months. [facility] Work Phone: Start: 04-25-2021 End: 03-10-2025 Sex Female (finding) [facility] Start: 03-20-2025 Alcohol Comment 2 months ago [facility] Work Phone: Start: 08-14-2025 Alcohol Comment drinking every day for a month, last drank yesterday [facility] Work Phone: NEGATED: Highlighted rowStart: NINF History of tobacco use Passive smoker [facility] Medical Equipment Procedure Code Equipment Code Equipment Original Text Equipment Identifier Dates Start: 05-13-2022 End: 03-20-2025 Comment on above: Use five times a day as ACOG guidelines for gestational daibetes Use five times daily as recommended by ACOG for gestational diabetes Goals Date Patient Goal Desired Activity /State Personal health goal Personal health goal Comment on above: Formatting of this n ote might be different from the original. By Care Plan review date, Rosalva will be able to identify at least 2 patterns of thinking that worsen anxiety, and be able to use at least 2 ways to challenge and balance anxious thoughts. Personal health goal Personal health goal Comment on above: Formatting of this n ote might be different from the original. Functional Status Date Assessment Result Facility 05-22-2025 Are you deaf, or do you have serious difficulty hearing No 05/22/2025 3:12 PM Tessa Flores, MIRNA No [facility] 05-22-2025 Are you blind, or do you have serious difficulty seeing, even when wearing glasses No 05/22/2025 3:12 PM Tessa Flores, MIRNA No [facility] 05-22-2025 Do you have serious difficulty walking or climbing stairs No 05/22/2025 3:12 PM Tessa Flores, MIRNA No [facility] 05-22-2025 Do you have difficul ty dressing or bathing No 05/22/2025 3:12 PM Tessa Flores, MIRNA No [facility] 05-22-2025 Because of a physica l, mental, or emotional condition, do you have difficulty doing errands alone such as visiting a physician's office or shopping No 05/22/2025 3:12 PM Tessa Flores, MIRNA [facility] 03-08-2025 Are you deaf, or do you have serious difficulty hearing No 03/08/2025 2:25 PM Elida Robles RN No [facility] 03-08-2025 Are you blind, or do you have serious difficulty seeing, even when wearing glasses No 03/08/2025 2:25 PM Elida Robles RN No [facility] 03-08-2025 Do you have serious difficulty walking or climbing stairs No 03/08/2025 2:25 PM Elida Robles RN No [facility] 03-08-2025 Do you have difficul ty dressing or bathing No 03/08/2025 2:25 PM Elida Robles RN No [facility] 03-08-2025 Because of a physica l, mental, or emotional condition, do you have difficulty doing errands alone such as visiting a physician's office or shopping No 03/08/2025 2:25 PM Elida Robles RN No [facility] 03-06-2025 Are you deaf, or do you have serious difficulty hearing No 03/06/2025 4:48 PM Denise Valdez RN No [facility] 03-06-2025 Are you blind, or do you have serious difficulty seeing, even when wearing glasses No 03/06/2025 4:48 PM Denise Valdez RN No [facility] 03-06-2025 Do you have serious difficulty walking or climbing stairs No 03/06/2025 4:48 PM Denise Valdez RN No [facility] 03-06-2025 Do you have difficul ty dressing or bathing No 03/06/2025 4:48 PM Denise Valdez RN No [facility] 03-06-2025 Because of a physica l, mental, or emotional condition, do you have difficulty doing errands alone such as visiting a physician's office or shopping No 03/06/2025 4:48 PM Denise Valdez RN No [facility] 01-13-2025 Are you deaf, or do you have serious difficulty hearing No 01/13/2025 11:38 AM Sneha Potts RN No [facility] 01-13-2025 Are you blind, or do you have serious difficulty seeing, even when wearing glasses No 01/13/2025 11:38 AM Sneha Potts RN No [facility] 01-13-2025 Do you have serious difficulty walking or climbing stairs No 01/13/2025 11:38 AM Sneha Potts RN No [facility] 01-13-2025 Do you have difficul ty dressing or bathing No 01/13/2025 11:38 AM Sneha Potts RN No [facility] 01-13-2025 Because of a physica l, mental, or emotional condition, do you have difficulty doing errands alone such as visiting a physician's office or shopping No 01/13/2025 11:38 AM Sneha Potts RN No [facility] 2025 Are you deaf, or do you have serious difficulty hearing No 2025 2:07 PM Babs Ross RN No [facility] 2025 Are you blind, or do you have serious difficulty seeing, even when wearing glasses No 2025 2:07 PM Babs Ross RN No [facility] 2025 Do you have serious difficulty walking or climbing stairs No 2025 2:07 PM Babs Ross RN No [facility] 2025 Do you have difficul ty dressing or bathing No 2025 2:07 PM Babs Ross RN No [facility] 2025 Because of a physica l, mental, or emotional condition, do you have difficulty doing errands alone such as visiting a physician's office or shopping No 2025 2:07 PM Babs Ross RN No [facility] 07-25-2022 Are you deaf, or do you have serious difficulty hearing No 07/25/2022 12:20 PM Josselin West RN No [facility] 07-25-2022 Are you blind, or do you have serious difficulty seeing, even when wearing glasses No 07/25/2022 12:20 PM Josselin West RN No [facility] 07-25-2022 Do you have serious difficulty walking or climbing stairs No 07/25/2022 12:20 PM EDT Josselin Goldman, MIRNA No [facility] 07-25-2022 Because of a physica l, mental, or emotional condition, do you have difficulty doing errands alone such as visiting a physician's office or shopping No 07/25/2022 12:20 PM EDT Josselin Goldman, MIRNA No [facility] 07-25-2022 Do you have difficul ty dressing or bathing No 07/25/2022 8:30 AM EDT Danielle Garcia, MIRNA No [facility] Mental Status Date Assessment Result Facility 05-22-2025 Because of a physica l, mental, or emotional condition, do you have serious difficulty concentrating, remembering, or making decisions No 05/22/2025 3:12 PM EDT Tessa Up, MIRNA No [facility] 03-08-2025 Because of a physica l, mental, or emotional condition, do you have serious difficulty concentrating, remembering, or making decisions No 03/08/2025 2:25 PM EDT Elida Villegas RN No [facility] 03-06-2025 Because of a physica l, mental, or emotional condition, do you have serious difficulty concentrating, remembering, or making decisions No 03/06/2025 4:48 PM EDT Denise Carreno RN No [facility] 01-13-2025 Because of a physica l, mental, or emotional condition, do you have serious difficulty concentrating, remembering, or making decisions No 01/13/2025 11:38 AM Sneha Potts, MIRNA No [facility] 2025 Because of a physica l, mental, or emotional condition, do you have serious difficulty concentrating, remembering, or making decisions No 2025 2:07 PM Babs Ross RN No [facility] 07-25-2022 Because of a physica l, mental, or emotional condition, do you have serious difficulty concentrating, remembering, or making decisions No 07/25/2022 12:20 PM EDT Josselin Goldman, MIRNA No [facility] Clinical Notes 04-17-2021 to 09-22-2025 VASQUEZ Whaley - 09/22/2025 11:00 AM MARCIEVASQUEZ Macias - 09/14/2025 11:52 AM CiroVASQUEZ Sauer - 09/05/2025 12:59 PM MARLYVASQUEZ Ross - 08/28/2025 9:09 AM EDT Note Date & Type Note Facility 09-22-2025 History of Present illness Narrative Reason for Visit: Individual Counseling Video conference visit (). Patient identity confirmed via name and date of . Potential risks and benefits discussed with patient/guardian, who verbalized consent for telehealth encounter. Patient location: other: CL is at Aunt's. Problem: CL reports meeting someone new and having a connection and stated, "we have a ton in common, we both want one more kid, both bipolar and both have traumatic past and looking for a relationship". CL reports starting a new job at [employer] following week. CL reports since being back to Aunt's house having no anxiety but having difficult time getting to bed. CL expressed having some concern due to children's father threats of wanting full custody. F42.9 Obsessive-compulsive disorder, unspecified type (primary encounter diagnosis) Mental Status Exam: Within normal limits. Intervention: The following goals were addressed today: "To manage my anxiety and intrusive thoughts better" Next Care Plan Review Date: 07/28/2026 Provider addressed Rosalva's concerns related to the presenting problem above through the following therapeutic interventions: Active and reflective listening, Enhancing coping skills, Facilitating exploration and naming of emotions, and Symptom management, skill building. Acute risk for harm to self/others: Low C-SSRS Screen Response/Impression: Rosalva demonstrated minimal improvement in session today as evidenced by feeling excited about new relationship and starting steady job. Overall impression of treatment demonstrates minimal improvement as evidenced by self reports of overall improvements with managing anxiety and recognizing triggers with children's father. TH and cl explored how to make healthy boundaries wile co-parenting. TH asked open ended questions about new relationship to gain more insight about goals. TH offered support and encouragement. BASIS-24 Clinical Severity - Most Recent Administration Date Administered: 07/28/2025 Domain Subscore & Severity Depression/Functioning 0.86 - Low Interpersonal Relationships 0.3 - Low Self-Harm 0 - Low Emotional Lability 0.22 - Low Psychosis 0 - Low Alcohol/Drug Use 1.02 - Moderate BASIS-24 Overall Score 0.57 - Low Reference: BASIS-24 Behavior and Symptom Identification Scale: Clinical Cut Scores. Jama Patel (2018). BASIS-24 results were reviewed. Plan: Rosalva's follow-up/homework: CL will start incorporating somatic exercises prior to bed to help have better sleep hygiene. Provider's follow-up/referrals/action items: N/A Next appointment with this provider: 09/29/2025 VASQUEZ Whaley documented in this encounter [facility] Work Phone: 09-14-2025 Nurse Note CL was outreached regarding appt change and left message. CL was asked to call if needing sooner appt than scheduled. documented in this encounter [employer] Phone: 09-05-2025 History of Present illness Narrative Reason for Visit: Individual Counseling Video conference visit (Leia.). Patient identity confirmed via name and date of . Potential risks and benefits discussed with patient/guardian, who verbalized consent for telehealth encounter. Patient location: other: CL stated was at children's father house during time of call but does not disclose address. Problem: CL stated having job interview following day and is hopeful to get job. CL reports having trouble sleeping but with unknown triggers. CL reports no depression or manic feelings with limited anxiey. CL reports being at children's fathers house to help out. F41.1,F41.0 Generalized anxiety disorder with panic attacks (primary encounter diagnosis) Mental Status Exam: Within normal limits. Intervention: The following goals were addressed today: "To manage my anxiety and intrusive thoughts better" Next Care Plan Review Date: 07/28/2026 Provider addressed Rosalva's concerns related to the presenting problem above through the following therapeutic interventions: Active and reflective listening and Enhancing coping skills. Acute risk for harm to self/others: Low C-SSRS Screen Response/Impression: Rosalva demonstrated minimal improvement in session today as evidenced by going to job interviews and working on personal goals. Overall impression of treatment demonstrates minimal improvement as evidenced by reports of advocating for self within relationship dynamics. TH asked open ended questions about TH explore nightime routine and discussed willingness to use coping skills to help fall asleep.TH normalized anxious feelings while parenting about risks associated within environment and offered insight on how to manage anxiety while being able to enjoy time with kids out in public. BASIS-24 Clinical Severity - Most Recent Administration Date Administered: 07/28/2025 Domain Subscore & Severity Depression/Functioning 0.86 - Low Interpersonal Relationships 0.3 - Low Self-Harm 0 - Low Emotional Lability 0.22 - Low Psychosis 0 - Low Alcohol/Drug Use 1.02 - Moderate BASIS-24 Overall Score 0.57 - Low Reference: BASIS-24 Behavior and Symptom Identification Scale: Clinical Cut Scores. Jama Patel (2018). BASIS-24 results were reviewed. Plan: Rosalva's follow-up/homework: CL will try reading and incorporating somatic exercises prior to bed to help relax prior to bed. Provider's follow-up/referrals/action items: N/A Next appointment with this provider: 09/15/25 documented in this encounter [facility] Work Phone: 08-28-2025 History of Present illness Narrative Reason for Visit: Individual Counseling Video conference visit (Leia.). Patient identity confirmed via name and date of . Potential risks and benefits discussed with patient/guardian, who verbalized consent for telehealth encounter. Patient location: other: CL was at mother's home in [place] with unknown address during time of call . Problem: CL informed of still living at Aunt's house but has been staying at Mom's for sleep overs. CL expressed still feeling manipulated when dropping kids off and stated, "I made him coffee because it was just easier". CL reports increased texts and calls since moving out that have been affecting mental health negatively. CL expressed wanting to go back to school but children's father is pushing to do home school for oldest daughter and not allow enough time to go. CL reports only one use of alcohol since last appt. F31.71 Bipolar disorder, in partial remission, most recent episode hypomanic (primary encounter diagnosis) Mental Status Exam:Within normal limits. Intervention: The following goals were addressed today: "To manage my anxiety and intrusive thoughts better" Next Care Plan Review Date: 07/28/2026 Provider addressed Rosalva's concerns related to the presenting problem above through the following therapeutic interventions: Active and reflective listening, Assist in problem solving, Empathetic validation and support, Motivational interviewing, and Symptom management, skill building. Acute risk for harm to self/others: Low C-SSRS Screen Response/Impression: Rosalva demonstrated moderate improvement in session today as evidenced by reports of feeling peaceful and feeling significantly reduced stressors since moving out. Overall impression of treatment demonstrates minimal improvement as evidenced by stating goals but minimal progress in action phase towards goals. TH validated CL feelings and offered support. TH asked CL to use reframing when feeling guilty after talking with children's father and educated about what manipulation can look like. TH encouraged CL to work on personal goals. BASIS-24 Clinical Severity - Most Recent Administration Date Administered: 07/28/2025 Domain Subscore & Severity Depression/Functioning 0.86 - Low Interpersonal Relationships 0.3 - Low Self-Harm 0 - Low Emotional Lability 0.22 - Low Psychosis 0 - Low Alcohol/Drug Use 1.02 - Moderate BASIS-24 Overall Score 0.57 - Low Reference: BASIS-24 Behavior and Symptom Identification Scale: Clinical Cut Scores. Jama Patel (2018). BASIS-24 results were reviewed. Plan: Rosalva's follow-up/homework: CL was encouraged to continue to apply boundaries within relationship with children's father to reduce stressors. Provider's follow-up/referrals/action items: N/A Next appointment with this provider: 09/05/2025 documented in this encounter [facility] Work Phone: 08-22-2025 History of Present illness Narrative Reason for Visit: Individual Counseling Video conference visit (Leia.). Patient identity confirmed via name and date of . Potential risks and benefits discussed with patient/guardian, who verbalized consent for telehealth encounter. Patient location: other: Cl was at Mother's home. Problem: CL reports moving out of home due to name calling and verbal abusive behavior. CL reports feeling "calm". CL stated would be staying at Aunt's house for a few days then dropping kids off for three [address] order. CL informed of going to court months ago but forgot to disclosing prior. CL reports staying at Mom's house currently, for "girl's night". CL expressed having significant guilt about moving out and "feeling bad for babies". CL reports children's withheld medication and would not allow client to take any of personal belongings or clothes for self/children. F31.71 Bipolar disorder, in partial remission, most recent episode hypomanic ([facility]) (primary encounter diagnosis) Mental Status Exam: Within normal limits. Intervention: The following goals were addressed today: "To manage my anxiety and intrusive thoughts better" Next Care Plan Review Date: 07/28/2026 Provider addressed Rosalva's concerns related to the presenting problem above through the following therapeutic interventions: Active and reflective listening, Assist in problem solving, Empathetic validation and support, Empowerment and choice, Enhancing coping skills, and Facilitating exploration and naming of emotions. Acute risk for harm to self/others: Low C-SSRS Screen Response/Impression: Rosalva demonstrated minimal improvement in session today as evidenced by having improved mood since moving out and being able to list new goals. Overall impression of treatment demonstrates minimal improvement as evidenced by advocating for self by leaving toxic relationship. TH validated CL feelings and offered support. TH offered insight about resources and encouraged CL to reach out to police for escort into home for items needed. BASIS-24 Clinical Severity - Most Recent Administration Date Administered: 07/28/2025 Domain Subscore & Severity Depression/Functioning 0.86 - Low Interpersonal Relationships 0.3 - Low Self-Harm 0 - Low Emotional Lability 0.22 - Low Psychosis 0 - Low Alcohol/Drug Use 1.02 - Moderate BASIS-24 Overall Score 0.57 - Low Reference: BASIS-24 Behavior and Symptom Identification Scale: Clinical Cut Scores. Jama Patel (2018). BASIS-24 results were not reviewed. Plan: Rosalva's follow-up/homework: CL will connect with police to get items from home. Provider's follow-up/referrals/action items: N/A Next appointment with this provider: 08/28/2025 documented in this encounter [facility] Work Phone: 08-20-2025 History of Present illness Narrative Associated Problem(s): Bipolar disorder, in partial remission, most recent episode hypomanic ([facility]) Stable;continue current med regimen Orders: RN NURSING PER 15 MIN [[id number]] divalproex (DEPAKOTE ER) 500 mg 24 hr tablet; Take 3 Tablets by mouth every evening. Associated Problem(s): Obsessive-compulsive disorder, unspecified Stable/obsessive and pt reports obsessive/intrusive thoughts are significantly improved; continue current medication regimen Orders: risperiDONE (RISPERDAL) 3 mg tablet; Take 1 Tablet by mouth nightly at bedtime. escitalopram (LEXAPRO) 20 mg tablet; Take 1 Tablet by mouth once daily. Associated Problem(s): Generalized anxiety disorder with panic attacks Orders: escitalopram (LEXAPRO) 20 mg tablet; Take 1 Tablet by mouth once daily. Subjective Video conference visit (Leia.). Patient identity confirmed via name and date of . Potential risks and benefits discussed with patient/guardian, who verbalized consent for telehealth encounter. Patient location: home. Chief Complaint: Psychiatric Med Management HPI Rosalva Huang is a 35 year old female with h/o bipolar disorder and NIKKIE, presenting for f/u visit. 08/14/25: Pt states her mood has been stable in recent days. Intrusive thoughts OCD-type symptoms are also improved with SSRI and risperdal combo. Current med combo appears to be effective in managing mood stability. No recent manic symptoms and no recent panic attacks. However, she has recently started drinking 5-10 alcoholic beverages per day. This apparently started following her drinking with a friend earlier this month. Pt wishes to stop but does not want to go into treatment. Has done this on her own before and states she is optimistic she can do it again without needing formal treatment. She Is aware of the signs/symptoms of alcohol withdrawal. States she will plan to cut back and stop on her own. Says no one in the household drinks alcohol except for her so she is not worried about being exposed to alcohol unless she decides to purchase it. Does not want to go to an inpatient or residential treatment facility for medically supervised detox. Pt denies any recent or current manic/mixed or depressive symptoms. Denies psychotic symptoms. Denies SI/HI. Med adherent and denies side-effects. Interim substance use history: Social History Substance and Sexual Activity Drug Use Not Currently Types: Opioids, Marijuana Comment: When she was 17 she had a problem with marijuana and prescription drug abuse (snorted Xanax and abused pain pills) and she got in trouble at 17 and at 18 she stopped Tobacco History Tobacco Use Smoking Status Never Smokeless Tobacco Never Social History Substance and Sexual Activity Alcohol Use Yes Comment: drinking every day for a month, last drank yesterday 01/30/25: Copied forward from [facility] (Dec admission): ALLERGIES Allergen Reactions Clindamycin Hives Diffuse hives and angioedema of upper lip within 30 minutes of receiving 1st dose. Doxycycline Hives Diffuse hives 30 minutes after 1st dose. Diffuse hives and x1 episode of emesis 30 minutes after 2nd dose. Fluconazole Rash Required IV diphenhydramine 01/06/2025 Onion GI Upset Vancomycin Itching Flushing and pruritus consistent with vancomycin infusion reaction. Please refer to Allergy note from 01/05/2025 for details. Adhesive Tape (Rita* Rash, Itching Patient reports unable to tolerate band-aids after a procedure. She noted redness and itching at site of band aid. Mosquitos Swelling Phenergan [Prometha* GI Upset Sunscreen Rash Tingle tanning lotion Zyrtec [Cetirizine * Hives, Other: See Comments Hives and palpitations within 30 minutes of 1st dose. Tolerates Benadryl without issue. No contraindication to trying other antihistamines such as Arthur or Claritin Meds: Outpatient Medications Prior to Visit Medication Sig Dispense Refill rizatriptan (MAXALT) 10 mg tablet Take 10 mg by mouth. hydrOXYzine HCL (ATARAX) 25 mg tablet Take 1 Tablet by mouth 3 (three) times daily as needed for anxiety. 90 Tablet 0 risperiDONE (RISPERDAL) 0.5 mg tablet Take 1 Tablet by mouth once daily as needed for other reason (agitation). 30 Tablet 0 divalproex (DEPAKOTE ER) 500 mg 24 hr tablet Take 3 Tablets by mouth every evening. 90 Tablet 1 escitalopram (LEXAPRO) 20 mg tablet Take 1 Tablet by mouth once daily. 30 Tablet 1 risperiDONE (RISPERDAL) 3 mg tablet Take 1 Tablet by mouth nightly at bedtime. 30 Tablet 1 ondansetron ODT (ZOFRAN-ODT) 4 mg disintegrating tablet TAKE 1 TABLET BY MOUTH EVERY 6 HOURS NEEDED FOR NAUSEA AND VOMITING FOR UP TO 7 DAYS ACNE MEDICATION 5 % EPINEPHrine (EPIPEN) 0.3 mg/0.3 mL pen injector Inject 0.3 mg into the muscle hydrocortisone 2.5 % cream ubrogepant (UBRELVY) 100 mg tab Take 100 mg by mouth onabotulinumtoxinA (BOTOX) 200 unit solr injection Inject 200 Units into the skin Every 12 Weeks methylcellulose, laxative, (CITRUCEL) 500 mg tab tab Take 1,000 mg by mouth every 8 (eight) hours as needed rimegepant (NURTEC ODT) 75 mg TbDi Take 75 mg by mouth acetaminophen (TYLENOL) 500 mg tablet No facility-administered medications prior to visit. Objective 04/24/2025 9:36 AM BP 118/76 Pulse 99 Weight 191 lb (86.6 kg) % Change in weight 20.9 Height 5' 4" (162.6 cm) Estimated body mass index is 32.79 kg/m as calculated from the following: Height as of 04/24/25: 5' 4" (1.626 m). Weight as of 04/24/25: 191 lb (86.6 kg). Mental Status Exam Appearance is appropriate for circumstance and neat. as able to visualize on videoconference General Health is generally good. as able to visualize on videoconference Eye Contact is good. as able to visualize on video Motor Activity is unremarkable. as able to visualize on video Speech is unremarkable. Affect is full range and mood-congruent. Reported Mood is neutral/euthymic. Thought Content has obsessions does not have suicidal ideations and does not have homicidal ideations. intrusive/obsessions are greatly reduced Thought Process is unremarkable, is goal-directed and is linear. Perception is unremarkable. Attention is alert. Demeanor is appropriate for situation and cooperative. Insight is appropriate. Judgement is appropriate. Orientation is fully oriented. Memory is grossly intact and not formally tested. Data Reviewed (labs, BASIS-24, AIMS, outside records, etc): Reviewed labs from February and Mar, 2025 in Care Everywhere (CMP, CBC most notably). Lab Results Component Value Date CHOL 203 (H) 04/24/2025 LDL 117 (H) 04/24/2025 HDL 72 04/24/2025 TRIGLYC 81 04/24/2025 HGBA1C 5.1 04/24/2025 CREATININE 0.82 06/23/2025 EGFR 96 06/23/2025 Lab Results Component Value Date VALPROIC 74 06/23/2025 BASIS-24 Clinical Severity - Most Recent Administration Date Administered: 07/28/2025 Domain Subscore & Severity Depression/Functioning 0.86 - Low Interpersonal Relationships 0.3 - Low Self-Harm 0 - Low Emotional Lability 0.22 - Low Psychosis 0 - Low Alcohol/Drug Use 1.02 - Moderate BASIS-24 Overall Score 0.57 - Low Reference: BASIS-24 Behavior and Symptom Identification Scale: Clinical Cut Scores. Jama Patel (2018). Last Menstrual Period: Assessment Safety Risk Assessment: Acute risk for harm to self/others: Low Chronic risk for harm to self/others: Low No SI/intent/plan. No thoughts of hurting others/HI. No access to weapons. Assessment & Plan Bipolar disorder, in partial remission, most recent episode hypomanic (CMS & HHS-HCC) Stable;continue current med regimen Orders: RN NURSING PER 15 MIN [[id number]] divalproex (DEPAKOTE ER) 500 mg 24 hr tablet; Take 3 Tablets by mouth every evening. Obsessive-compulsive disorder, unspecified type Stable/obsessive and pt reports obsessive/intrusive thoughts are significantly improved; continue current medication regimen Orders: risperiDONE (RISPERDAL) 3 mg tablet; Take 1 Tablet by mouth nightly at bedtime. escitalopram (LEXAPRO) 20 mg tablet; Take 1 Tablet by mouth once daily. Generalized anxiety disorder with panic attacks Orders: escitalopram (LEXAPRO) 20 mg tablet; Take 1 Tablet by mouth once daily. Alcohol use Continue motivational interviewing by this provider (and nurse Fuentes) and counselor. Pt declines further intervention at this time. Continue to encourage efforts to cut down and/or quit. Plan Risks, benefits, and alternatives were discussed. Patient/guardian understood and agreed with the plan. Reviewed Safety Plan: Call 911 or go to ED if in crisis. Advised of availability of after hours RN by calling main number for [facility]. Follow-up: No follow-ups on file. Upcoming Appointments: Appointments for the next 13 months 08/25/2025 10:00 AM COUNSELING STANDARD [facility] VASQUEZ Whaley 45 min 09/01/2025 10:00 AM COUNSELING STANDARD [facility] 45 min 09/08/2025 11:00 AM COUNSELING STANDARD [facility] Whaley 45 min 09/29/2025 10:40 AM NEW PATIENT [facility] Everett Weiss MD 20 min 10/02/2025 3:20 PM MEDICATION MANAGEMENT [facility] [id number] NURSE LUCI MONTANA 20 min 10/02/2025 3:40 PM MEDICATION MANAGEMENT [facility] Herberth Montana DO 20 min Reason for visit: Psychiatric Med Rachele Castro presents prior to their psychiatry provider visit to evaluate medication effectiveness, update medical history, and review overall treatment status. Video conference visit ([email or web address]). Patient identity confirmed via name and date of . Potential risks and benefits discussed with patient/guardian, who verbalized consent for telehealth encounter. Patient location: home. Subjective Interval history and patient concerns: Client reports about a month ago started drinking every day. Drinking Truly or Smirnoffs. Drinking 5-10 drinks per day. Denies blacking out. [place] drunk. Friend came over and she drank then, that seems to have started the ongoing drinking again.Last drank yesterday. Denies depression symptoms. Reports some abigail. Not sleeping well at night, hard to fall asleep. Denies thoughts of self harm or harming others. Denies hallucinations or delusional thoughts. Reports she wants to stop drinking again. Reports her aunt is not helping at all. Reports she is staying at [employer] [facility]. Daughter goes to preschool Thursday thru , 12:15-2:45. Son will go to preschool next year. Reports she feels overwhelmed. Has 8 puppies (14 weeks) at home too. Feels that she is managing things. Struggling with the alcohol now. Will contact counselor for extra support. Current Outpatient Medications Medication Sig Dispense Refill rizatriptan (MAXALT) 10 mg tablet Take 10 mg by mouth. divalproex (DEPAKOTE ER) 500 mg 24 hr tablet Take 3 Tablets by mouth every evening. 90 Tablet 1 escitalopram (LEXAPRO) 20 mg tablet Take 1 Tablet by mouth once daily. 30 Tablet 1 hydrOXYzine HCL (ATARAX) 25 mg tablet Take 1 Tablet by mouth 3 (three) times daily as needed for anxiety. 90 Tablet 0 risperiDONE (RISPERDAL) 0.5 mg tablet Take 1 Tablet by mouth once daily as needed for other reason (agitation). 30 Tablet 0 risperiDONE (RISPERDAL) 3 mg tablet Take 1 Tablet by mouth nightly at bedtime. 30 Tablet 1 ondansetron ODT (ZOFRAN-ODT) 4 mg disintegrating tablet TAKE 1 TABLET BY MOUTH EVERY 6 HOURS NEEDED FOR NAUSEA AND VOMITING FOR UP TO 7 DAYS ACNE MEDICATION 5 % EPINEPHrine (EPIPEN) 0.3 mg/0.3 mL pen injector Inject 0.3 mg into the muscle hydrocortisone 2.5 % cream ubrogepant (UBRELVY) 100 mg tab Take 100 mg by mouth onabotulinumtoxinA (BOTOX) 200 unit solr injection Inject 200 Units into the skin Every 12 Weeks methylcellulose, laxative, (CITRUCEL) 500 mg tab tab Take 1,000 mg by mouth every 8 (eight) hours as needed rimegepant (NURTEC ODT) 75 mg TbDi Take 75 mg by mouth acetaminophen (TYLENOL) 500 mg tablet No current facility-administered medications for this visit. Reported medication adherence: yes Reported medication side effects: weight gain 30-40 pounds. New medical problems or history: denies Objective Vitals not currently . Mental Status Exam: Behavior: generally relaxed and engaged, cooperative Speech: unremarkable Mood: neutral Affect: appropriate for circumstance Thought content: unremarkable Perception: unremarkable Additional objective data: BASIS-24 Clinical Severity - Most Recent Administration Date Administered: 07/28/2025 Domain Subscore & Severity Depression/Functioning 0.86 - Low Interpersonal Relationships 0.3 - Low Self-Harm 0 - Low Emotional Lability 0.22 - Low Psychosis 0 - Low Alcohol/Drug Use 1.02 - Moderate BASIS-24 Overall Score 0.57 - Low Reference: BASIS-24 Behavior and Symptom Identification Scale: Clinical Cut Scores. Jama Patel (2018). BASIS-24 results were not reviewed. Assessment Provider diagnosis and treatment plan reviewed. F31.71 Bipolar disorder, in partial remission, most recent episode hypomanic ([facility]) (primary encounter diagnosis) Comment: Risk Assessment: Acute risk for harm to self/others: Low Plan Verified patient medications and allergies; updated patient medical history in medical record. Provided report to Dr. Montana regarding patient concerns and status. Follow up as scheduled Reach out to counselor for extra support. Upcoming appointments: Appointments for the next 13 months 08/25/2025 10:00 AM COUNSELING STANDARD [facility] Wh[facility] 45 min 09/01/2025 10:00 AM COUNSELING STANDARD [facility] Whaley 45 min 09/08/2025 11:00 AM COUNSELING STANDARD [facility] Whaley 45 min 09/29/2025 10:40 AM NEW PATIENT [facility] Everett Weiss MD 20 min documented in this encounter [facility] Work Phone: 08-11-2025 History of Present illness Narrative Reason for Visit: Individual Counseling Video conference visit (Leia.). Patient identity confirmed via name and date of . Potential risks and benefits discussed with patient/guardian, who verbalized consent for telehealth encounter. Patient location: home. Problem: CL called in to leia after appt was initially cancelled and called. CL stated phone was not working and appt was added back to schedule. CL expressed feeling hurt about comments made from partner and reports partner stated, "your too fat and not a real women". Cl reports no changes in alcohol use and stated, "I want to be sedated when I have to deal with him". 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 F43.10 Post traumatic stress disorder (primary encounter diagnosis) Mental Status Exam: Within normal limits. Intervention: The following goals were addressed today: "To manage my anxiety and intrusive thoughts better" Next Care Plan Review Date: 07/28/2026 Provider addressed Rosalva's concerns related to the presenting problem above through the following therapeutic interventions: Active and reflective listening, Empathetic validation and support, Empowerment and choice, Enhancing coping skills, Facilitating exploration and naming of emotions, Risk assessment and safety planning, and Symptom management, skill building. Acute risk for harm to self/others: Low C-SSRS Screen Response/Impression: Rosalva demonstrated no change in session today as evidenced by negative self reflection and pre-contemplative thinking patterns for use and being able to apply positive coping skills. Overall impression of treatment demonstrates no change as evidenced by repeated cycles of reported behaviors in home impacting self image and mental health. TH discussed cycle of trauma and impact on family. TH explored options of moving out and possible employment opportunities. TH assessed client self reports of continued alcohol use and recommended client discuss at upcoming psych appt. TH explored using positive coping skills when feeling triggered or feeling comfortable to "take breaks" to reduce stressors. TH will continue to monitor client symptoms at upcoming appts. BASIS-24 Clinical Severity - Most Recent Administration Date Administered: 07/28/2025 Domain Subscore & Severity Depression/Functioning 0.86 - Low Interpersonal Relationships 0.3 - Low Self-Harm 0 - Low Emotional Lability 0.22 - Low Psychosis 0 - Low Alcohol/Drug Use 1.02 - Moderate BASIS-24 Overall Score 0.57 - Low Reference: BASIS-24 Behavior and Symptom Identification Scale: Clinical Cut Scores. Jama Patel (2018). BASIS-24 results were not reviewed. Plan: Rosalva's follow-up/homework: CL will be mindful about alcohol use and reaching out to support system Provider's follow-up/referrals/action items: CL will discuss alcohol use at upcoming psych appt Next appointment with this provider: 08/25/25 documented in this encounter [facility] Work Phone: 08-04-2025 History of Present illness Narrative Reason for Visit: Individual Counseling Video conference visit (Leia.). Patient identity confirmed via name and date of . Potential risks and benefits discussed with patient/guardian, who verbalized consent for telehealth encounter. Patient location: home. Problem: CL stated nothing new has gone on and feeling ok. Cl stated, "I'm getting out of hand with my drinking". CL reports drinking more and feeling too stressed with two babies and eight dogs. CL reports drinking 8-10 drinks every night. CL stated, "I am not good at using coping skills". CL expressed feeling "euphoric and manic" after drinking. F42.9 Obsessive-compulsive disorder, unspecified type (primary encounter diagnosis) Mental Status Exam: Within normal limits. Intervention: The following goals were addressed today: "To manage my anxiety and intrusive thoughts better" Next Care Plan Review Date: 07/28/2026 Provider addressed Rosalva's concerns related to the presenting problem above through the following therapeutic interventions: Active and reflective listening, Enhancing coping skills, Motivational interviewing, and Symptom management, skill building. Acute risk for harm to self/others: Low C-SSRS Screen Response/Impression: Rosalva demonstrated deterioration in session today as evidenced by not being able to identify any positive skills and pre-contemplative thinking, Overall impression of treatment demonstrates deterioration as evidenced by self reports of increase alcohol use used as coping skill for stressor. TH explored behaviors with alcohol use and impulse shopping. TH eduacted CL about connection between impulsive behaviors and addictive behaviors. TH and CL explored unhealthy coping mechanisms and asked client to list positive coping skills to use. CL declined use of coping skills at this time. TH use DC to assess client's readiness and willingness to make changes. TH will continue to monitor behaviors. BASIS-24 Clinical Severity - Most Recent Administration Date Administered: 07/28/2025 Domain Subscore & Severity Depression/Functioning 0.86 - Low Interpersonal Relationships 0.3 - Low Self-Harm 0 - Low Emotional Lability 0.22 - Low Psychosis 0 - Low Alcohol/Drug Use 1.02 - Moderate BASIS-24 Overall Score 0.57 - Low Reference: BASIS-24 Behavior and Symptom Identification Scale: Clinical Cut Scores. Jama Patel (2018). BASIS-24 results were not reviewed. Plan: Rosalva's follow-up/homework: CL was asked to make list of wanted changes, willing changes and identify a positive coping skill Provider's follow-up/referrals/action items: N/A Next appointment with this provider: 08/11/2025 documented in this encounter [facility] Work Phone: 07-28-2025 History of Present illness Narrative Reason for Visit: Individual Counseling Video conference visit (Leia.). Patient identity confirmed via name and date of . Potential risks and benefits discussed with patient/guardian, who verbalized consent for telehealth encounter. Patient location: home. Problem: CL expressed feeling "ok" since last appt and having no significant symptoms. CL informed of having friend over to house and having some alcohols drinks week prior. CL reports since having drinks having cravings to drink more frequently. F42.9 Obsessive-compulsive disorder, unspecified type (primary encounter diagnosis) Mental Status Exam: Within normal limits. Intervention: The following goals were addressed today: "To manage my anxiety and intrusive thoughts better" Next Care Plan Review Date: 07/28/2026 Provider addressed Rosalva's concerns related to the presenting problem above through the following therapeutic interventions: Active and reflective listening, Enhancing coping skills, Symptom management, skill building, and Treatment planning. Acute risk for harm to self/others: Low C-SSRS Screen Response/Impression: Rosalva demonstrated minimal improvement in session today as evidenced by recognizing cravings and openly exploring history of addiction and being open to getting additional support. Overall impression of treatment demonstrates minimal improvement as evidenced by self reports of no current stressors and managing symptoms. TH and CL updated care plan ans BASIS-24. TH asked open ended questions about answers on BASIS-24 and recent increase in triggers for anxiety. TH discussed available support systems and provided resources. BASIS-24 Clinical Severity - Most Recent Administration Date Administered: 07/28/2025 Domain Subscore & Severity Depression/Functioning 0.86 - Low Interpersonal Relationships 0.3 - Low Self-Harm 0 - Low Emotional Lability 0.22 - Low Psychosis 0 - Low Alcohol/Drug Use 1.02 - Moderate BASIS-24 Overall Score 0.57 - Low Reference: BASIS-24 Behavior and Symptom Identification Scale: Clinical Cut Scores. Jama Patel (2018). BASIS-24 results were reviewed with the patient. Plan: Rosalva's follow-up/homework: CL will attend an AA and research attending an in-person book club Provider's follow-up/referrals/action items: N/A Next appointment with this provider: 08/04/2025 Service Plan Date Created: 07/28/2025 SNAP: Strengths as defined by individual (including those identified by both the individual and clinician to address): Determined Resilient Needs: Make healthier habits with food Utilize coping skills Abilities: Bring a Mom Studying/student Preferences: CL has no preferences How will you use your strengths and abilities to reach your treatment plan goals? "I won't give up" Assessed Needs / LOC Level of Service: Outpatient Active Individual Counseling To manage my anxiety and intrusive thoughts better" Start: 07/28/25 Expected End: 07/28/26 By the next Care Plan review date, the patient will attempt to reach their goal by identifying positive coping skills to use when feeling symptomatic and continue to use healthy relationships skills to address their symptoms related to PTSD, Generalized anxiety, Bipolar disorder, OCD, and BPD. Individual Counseling Intervention Start: 07/28/25 Provider will implement the following interventions to support the patient in achieving their goal: Active and reflective listening, Assisting in problem solving, Empathetic validation and support, Empowerment and choice, Enhancing coping skills, Facilitating exploration and naming of emotions, Motivational interviewing, Reframing and positive focus, Strengthening relationship-building skills, and Symptom management, skill building [facility] PSYCHIATRIC MEDICATION MANAGEMENT GOAL: "I want to take my medication everday and monitoring symptoms" Start: 07/19/24 Expected End: 07/28/26 Objective: I will understand my mental health diagnoses and symptoms that could benefit from medication treatment. Expected End: 07/28/26 Care Space Buyer will complete a psychiatric evaluation to identify and/or clarify psychiatric diagnoses as well as symptoms that are appropriate targets for medication treatment. Services: Psychiatry Frequency: PRN Care Space Buyer will assess my general health, including risk factors or conditions that may impact my mental health and vice versa, and refer me to primary care if I do not already have an established primary care provider. Services: Psychiatry Frequency: PRN Objective: I will become knowledgeable about each of the psychiatric medications I am prescribed, including how to take them safely, side effects, and the reason each are prescribed. Expected End: 07/28/26 Care Space Buyer will provide education on each prescribed psychiatric medication, including potential interactions with other medications or drugs/alcohol. Services: Psychiatry Frequency: PRN Objective: I will participate in regular follow-up visits for monitoring my condition s response to psychiatric medication. Expected End: 07/28/26 Care Space Buyer will assess response to medication, including impact on functioning and quality of life, at each follow-up visit. Services: Psychiatry Frequency: PRN Care Space Buyer will administer necessary standardized assessment tools or laboratory monitoring to monitor medication response. Services: Psychiatry Frequency: PRN Care Space Buyer will assess for medication side effects at each follow-up visit. Services: Psychiatry Frequency: PRN Service Conclusion Criteria/Transition/Discharge: What progress have you made towards achieving your goal so far?: "I feel like talking about things helps to manage anxiety and having an unbiased person" What have you achieved as a result of participating in services?: "My mental health as gotten better and feel more stable due to medication and counseling" What will you need to continue your recovery and maintain your health? "I would like more support with the babies and to continue attending counseling and taking meds" If applicable, are you taking your medication as prescribed?: Cl reports medication compliance Referral information (internal and external): NA What will you do if you start to experience a recurrence in symptoms?: "I'm gonna call Paulina" Participants for Today s Plan: Patient acknowledges participating, agrees with plan. Participant/guardian/caregiver acknowledges participating, agrees with plan. Copies Provided Today To: [employer] / ADMINISTRATIVE: Administrative Information: Document Type: Update Next Review: 07/28/2026 Freq: Yearly documented in this encounter [facility] Work Phone: 07-13-2025 History of Present illness Narrative Reason for Visit: Individual Counseling Video conference visit (Leia.). Patient identity confirmed via name and date of . Potential risks and benefits discussed with patient/guardian, who verbalized consent for telehealth encounter. Patient location: home. Problem: Mya reports having another breast infection and having to go to ED but was able to be discharged without any hospital stay. CL reports feeling sick and is contributing to daughter coming home with "germs". CL stated feeling that Depakote is working and feeling less symptomatic with anxiety, depression or manic feelings. CL expressed no use of coping skills and is contributing reduced symptoms to medication. CL expressed feeling really busy and with in home tasks after having a migraine for two days. F31.71 Bipolar disorder, in partial remission, most recent episode hypomanic ([facility]) (primary encounter diagnosis) Mental Status Exam: Within normal limits. Intervention: The following goals were addressed today: GOAL: I will identify and balance thoughts that trigger my anxiety (see measurable component below): and GOAL: "I want to take my medication everday and monitoring symptoms" Next Care Plan Review Date: 07/19/2025 Provider addressed Rosalva's concerns related to the presenting problem above through the following therapeutic interventions: Active and reflective listening, Enhancing coping skills, and Symptom management, skill building. Acute risk for harm to self/others: Low C-SSRS Screen Response/Impression: Rosalva demonstrated minimal improvement in session today as evidenced by reduce presence of frustration with children and animals during appt. TH explored using emotion regulation techniques and coping skills to help to continue with improvement. MYA was in disagreement about use of coping skills and would like to continue to use medication as primary source of regulation. TH discussed positives of being able to see primary care and connect when having physical concerns. CL was receptive to having PCP referral. Overall impression of treatment demonstrates minimal improvement as evidenced by self reports of reduced stressors and improved self care after going out for girls night. BASIS-24 Clinical Severity - Most Recent Administration Date Administered: 04/24/2025 Domain Subscore & Severity Depression/Functioning 0.48 - Low Interpersonal Relationships 2.68 - High Self-Harm 0 - Low Emotional Lability 1 - Moderate Psychosis 0 - Low Alcohol/Drug Use 0 - Low BASIS-24 Overall Score 0.75 - Low Reference: BASIS-24 Behavior and Symptom Identification Scale: Clinical Cut Scores. Jama Patel (2018). BASIS-24 results were reviewed. Plan: Rosalva's follow-up/homework: CL was encouraged to try using coping skills in addition to medication to help manage symptoms. Provider's follow-up/referrals/action items: N/A Next appointment with this provider: 07/28/25 documented in this encounter [employer] Phone: 07-10-2025 History of Present illness Narrative Missed scheduled RN visit. No response to texts x2. documented in this encounter [employer] Phone: 07-05-2025 History of Present illness Narrative Associated Problem(s): Obsessive-compulsive disorder, unspecified Stable/obsessive and pt reports obsessive/intrusive thoughts are significantly improved; continue current medication regimen Orders: risperiDONE (RISPERDAL) 3 mg tablet; Take 1 Tablet by mouth nightly at bedtime. escitalopram (LEXAPRO) 20 mg tablet; Take 1 Tablet by mouth once daily. Associated Problem(s): Generalized anxiety disorder with panic attacks Stable/improved; continue lexapro Orders: escitalopram (LEXAPRO) 20 mg tablet; Take 1 Tablet by mouth once daily. hydrOXYzine HCL (ATARAX) 25 mg tablet; Take 1 Tablet by mouth 3 (three) times daily as needed for anxiety. Associated Problem(s): Bipolar disorder, in partial remission, most recent episode hypomanic (CMS & [facility]) Educated pt on current symptoms being consistent with hypomanic mood state rather than "abigail" per se. Repeat depakote level. Continue to monitor mood and consider increasing depakote dosage if trough level is in subtherapeutic range. Pt declined to continue lamotrigine. Orders: RN NURSING PER 15 MIN [[id number]] risperiDONE (RISPERDAL) 0.5 mg tablet; Take 1 Tablet by mouth once daily as needed for other reason (agitation). divalproex (DEPAKOTE ER) 500 mg 24 hr tablet; Take 3 Tablets by mouth every evening. Subjective Video conference visit (Leia.). Patient identity confirmed via name and date of . Potential risks and benefits discussed with patient/guardian, who verbalized consent for telehealth encounter. Patient location: home. Chief Complaint: Psychiatric Med Management HPI Rosalva Huang is a 35 year old female with h/o bipolar disorder and NIKKIE, presenting for f/u visit. 06/19/25: Reports she is no longer "rapid-cycling," but feels she is "manic"- described symptoms include difficulty falling asleep, feeling hyperactive, cleaning the house. Still getting 7 hours of sleep every night. Denies grandiosity or risk-taking behaviors, no flight of ideas. "I just basically feel hyper." Pt stopped taking the lamotrigine about a week ago. Hasn't noticed any change in mood state since stopping it. Does not think it increased her mood cycling nor contributed to some of her recent hyperactivity/hypomania. Pt denies depressed mood, denies mixed mood symptoms, and as described above endorses some hypomania but no full-blown manic symptoms. No endorsement of nor evidence of delusional thoughts, no AVH endorsed. Denies SI/HI. Reports med compliance and denies side-effects from her meds. Per record review, pt has had numerous visits to ED and hospitalizations for treatment of mastitis. She states today no si/sx of any active infections and she is not planning to get nipples pierced again, as this was the source for her past infections. 05/29/25: Pt continues to c/o "rapid cycling" with mood states lasting a few days at a time, even after starting tx with depakote. She states she was depressed for several days until about 3 days ago. Now feeling a bit hypomanic. Cleaning a lot and not sleeping as much. She was hospitalized for 14 days (was admitted and then readmitted for sepsis) - she was told she had delirium d/t sepsis for a day but this resolved after her infection started to clear. Denies any psychotic symptoms. 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 Finds that taking a break for a cup of coffee and letting her aunt watch the kids helps. Pt reports her mom is taking Depakote and says she loves it but is on "really high" dose together with lithium. Pt reports taking the additional risperdal dosage a few days a week. Seems to help her mood and agitation. Lexapro has helped significantly with intrusive thoughts. Not sure if the lamotrigine has been effective. Was starting to experience rapid-cycling even prior to starting the depakote. 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 Interim substance use history: Social History Substance and Sexual Activity Drug Use Not Currently Types: Opioids, Marijuana Comment: When she was 17 she had a problem with marijuana and prescription drug abuse (snorted Xanax and abused pain pills) and she got in trouble at 17 and at 18 she stopped Tobacco History Tobacco Use Smoking Status Never Smokeless Tobacco Never Social History Substance and Sexual Activity Alcohol Use Not Currently Comment: 2 months ago 01/30/25: Copied forward from [facility] (Dec admission): ALLERGIES Allergen Reactions Clindamycin Hives Diffuse hives and angioedema of upper lip within 30 minutes of receiving 1st dose. Doxycycline Hives Diffuse hives 30 minutes after 1st dose. Diffuse hives and x1 episode of emesis 30 minutes after 2nd dose. Fluconazole Rash Required IV diphenhydramine 01/06/2025 Onion GI Upset Vancomycin Itching Flushing and pruritus consistent with vancomycin infusion reaction. Please refer to Allergy note from 01/05/2025 for details. Adhesive Tape (Rita* Rash, Itching Patient reports unable to tolerate band-aids after a procedure. She noted redness and itching at site of band aid. Mosquitos Swelling Phenergan [Prometha* GI Upset Sunscreen Rash Tingle tanning lotion Zyrtec [Cetirizine * Hives, Other: See Comments Hives and palpitations within 30 minutes of 1st dose. Tolerates Benadryl without issue. No contraindication to trying other antihistamines such as Arthur or Claritin Meds: Outpatient Medications Prior to Visit Medication Sig Dispense Refill divalproex (DEPAKOTE ER) 500 mg 24 hr tablet Take 3 Tablets by mouth every evening. 90 Tablet 0 escitalopram (LEXAPRO) 20 mg tablet Take 1 Tablet by mouth once daily. 30 Tablet 0 lamoTRIgine (LAMICTAL) 100 mg tablet Take 0.5 Tablets by mouth once daily. 30 Tablet 0 risperiDONE (RISPERDAL) 0.5 mg tablet Take 1 Tablet by mouth once daily as needed for other reason (agitation). 30 Tablet 0 risperiDONE (RISPERDAL) 3 mg tablet Take 1 Tablet by mouth nightly at bedtime. 30 Tablet 0 ondansetron ODT (ZOFRAN-ODT) 4 mg disintegrating tablet TAKE 1 TABLET BY MOUTH EVERY 6 HOURS NEEDED FOR NAUSEA AND VOMITING FOR UP TO 7 DAYS hydrOXYzine HCL (ATARAX) 25 mg tablet Take 1 Tablet by mouth 3 (three) times daily as needed for anxiety. 90 Tablet 0 ACNE MEDICATION 5 % EPINEPHrine (EPIPEN) 0.3 mg/0.3 mL pen injector Inject 0.3 mg into the muscle hydrocortisone 2.5 % cream ubrogepant (UBRELVY) 100 mg tab Take 100 mg by mouth onabotulinumtoxinA (BOTOX) 200 unit solr injection Inject 200 Units into the skin Every 12 Weeks methylcellulose, laxative, (CITRUCEL) 500 mg tab tab Take 1,000 mg by mouth every 8 (eight) hours as needed rimegepant (NURTEC ODT) 75 mg TbDi Take 75 mg by mouth acetaminophen (TYLENOL) 500 mg tablet No facility-administered medications prior to visit. Objective 04/24/2025 9:36 AM BP 118/76 Pulse 99 Weight 191 lb (86.6 kg) % Change in weight 20.9 Height 5' 4" (162.6 cm) Estimated body mass index is 32.79 kg/m as calculated from the following: Height as of 04/24/25: 5' 4" (1.626 m). Weight as of 04/24/25: 191 lb (86.6 kg). Mental Status Exam Appearance is appropriate for circumstance and neat. as able to visualize on videoconference General Health is generally good. as able to visualize on videoconference Eye Contact is good. as able to visualize on video Motor Activity is unremarkable. as able to visualize on video Speech is unremarkable. Affect is full range and mood-congruent. Reported Mood is neutral/euthymic. Thought Content has obsessions does not have suicidal ideations and does not have homicidal ideations. intrusive/obsessions are greatly reduced Thought Process is unremarkable, is goal-directed and is linear. Perception is unremarkable. Attention is alert. Demeanor is appropriate for situation and cooperative. Insight is appropriate. Judgement is appropriate. Orientation is fully oriented. Memory is grossly intact and not formally tested. Data Reviewed (labs, BASIS-24, AIMS, outside records, etc): Reviewed labs from February and Mar, 2025 in Care Everywhere (CMP, CBC most notably). Lab Results Component Value Date CHOL 203 (H) 04/24/2025 LDL 117 (H) 04/24/2025 HDL 72 04/24/2025 TRIGLYC 81 04/24/2025 HGBA1C 5.1 04/24/2025 CREATININE 0.82 06/23/2025 EGFR 96 06/23/2025 Lab Results Component Value Date VALPROIC 74 06/23/2025 BASIS-24 Clinical Severity - Most Recent Administration Date Administered: 04/24/2025 Domain Subscore & Severity Depression/Functioning 0.48 - Low Interpersonal Relationships 2.68 - High Self-Harm 0 - Low Emotional Lability 1 - Moderate Psychosis 0 - Low Alcohol/Drug Use 0 - Low BASIS-24 Overall Score 0.75 - Low Reference: BASIS-24 Behavior and Symptom Identification Scale: Clinical Cut Scores. Jama Patel (2018). Last Menstrual Period: Assessment Safety Risk Assessment: Acute risk for harm to self/others: Low Chronic risk for harm to self/others: Low No SI/intent/plan. No thoughts of hurting others/HI. No access to weapons. Assessment & Plan Obsessive-compulsive disorder, unspecified type Stable/obsessive and pt reports obsessive/intrusive thoughts are significantly improved; continue current medication regimen Orders: risperiDONE (RISPERDAL) 3 mg tablet; Take 1 Tablet by mouth nightly at bedtime. escitalopram (LEXAPRO) 20 mg tablet; Take 1 Tablet by mouth once daily. Generalized anxiety disorder with panic attacks Stable/improved; continue lexapro Orders: escitalopram (LEXAPRO) 20 mg tablet; Take 1 Tablet by mouth once daily. hydrOXYzine HCL (ATARAX) 25 mg tablet; Take 1 Tablet by mouth 3 (three) times daily as needed for anxiety. Bipolar disorder, in partial remission, most recent episode hypomanic (CMS & [facility]-HCC) Educated pt on current symptoms being consistent with hypomanic mood state rather than "abigail" per se. Repeat depakote level. Continue to monitor mood and consider increasing depakote dosage if trough level is in subtherapeutic range. Pt declined to continue lamotrigine. Orders: RN NURSING PER 15 MIN [[id number]] risperiDONE (RISPERDAL) 0.5 mg tablet; Take 1 Tablet by mouth once daily as needed for other reason (agitation). divalproex (DEPAKOTE ER) 500 mg 24 hr tablet; Take 3 Tablets by mouth every evening. Screening for endocrine, metabolic and immunity disorder VPA level Orders: DRUG ASSAY VALPROIC DIPROPYLACETIC ACID TOTAL Routine; Future COMPREHENSIVE METABOLIC PANEL Routine; Future Long-term use of high-risk medication VPA level and cmp. Pt agrees to come in for labs in the near future. Orders: DRUG ASSAY VALPROIC DIPROPYLACETIC ACID TOTAL Routine; Future COMPREHENSIVE METABOLIC PANEL Routine; Future Plan Risks, benefits, and alternatives were discussed. Patient/guardian understood and agreed with the plan. Reviewed Safety Plan: Call 911 or go to ED if in crisis. Advised of availability of after hours RN by calling main number for [facility]. Follow-up: No follow-ups on file. Upcoming Appointments: Appointments for the next 13 months 07/10/2025 8:00 AM NURSE VISIT SHORT [facility] Tessa Dill RN 20 min 07/13/2025 12:00 PM COUNSELING STANDARD [facility] VASQUEZ Whaley 45 min 07/31/2025 1:00 PM MEDICATION MANAGEMENT [facility] [id number] NURSE RUBÉN 20 min 07/31/2025 1:20 PM MEDICATION MANAGEMENT [facility] Herberth Montana DO 20 min Reason for visit: Psychiatric Med Management Rosalva presents prior to their psychiatry provider visit to evaluate medication effectiveness, update medical history, and review overall treatment status. Video conference visit (Leia.). Patient identity confirmed via name and date of . Potential risks and benefits discussed with patient/guardian, who verbalized consent for telehealth encounter. Patient location: home. Subjective Interval history and patient concerns: Client reports the depakote is not helping her abigail. Feels she is manic on most days. Feels it is a lower manic. Denies thoughts of self harm or harming others. No hallucinations or delusional thoughts. Denies depression symptoms. Reports anxiety is "pretty bad." Reports having panic attacks every day. No mood swings. Not rapid cycling. Sleeping 6-8 hrs per night. Feels hyper. Reports she is cleaning a lot. Feels like the abigail is able to be dealt with, cleaning. No spending sprees. No impulsiveness. Managing the kids. Staying at her aunts currently and she helps with the kids. Current Outpatient Medications Medication Sig Dispense Refill divalproex (DEPAKOTE ER) 500 mg 24 hr tablet Take 3 Tablets by mouth every evening. 90 Tablet 0 escitalopram (LEXAPRO) 20 mg tablet Take 1 Tablet by mouth once daily. 30 Tablet 0 lamoTRIgine (LAMICTAL) 100 mg tablet Take 0.5 Tablets by mouth once daily. 30 Tablet 0 risperiDONE (RISPERDAL) 0.5 mg tablet Take 1 Tablet by mouth once daily as needed for other reason (agitation). 30 Tablet 0 risperiDONE (RISPERDAL) 3 mg tablet Take 1 Tablet by mouth nightly at bedtime. 30 Tablet 0 hydrOXYzine HCL (ATARAX) 25 mg tablet Take 1 Tablet by mouth 3 (three) times daily as needed for anxiety. 90 Tablet 0 ondansetron ODT (ZOFRAN-ODT) 4 mg disintegrating tablet TAKE 1 TABLET BY MOUTH EVERY 6 HOURS NEEDED FOR NAUSEA AND VOMITING FOR UP TO 7 DAYS ACNE MEDICATION 5 % EPINEPHrine (EPIPEN) 0.3 mg/0.3 mL pen injector Inject 0.3 mg into the muscle hydrocortisone 2.5 % cream ubrogepant (UBRELVY) 100 mg tab Take 100 mg by mouth onabotulinumtoxinA (BOTOX) 200 unit solr injection Inject 200 Units into the skin Every 12 Weeks methylcellulose, laxative, (CITRUCEL) 500 mg tab tab Take 1,000 mg by mouth every 8 (eight) hours as needed rimegepant (NURTEC ODT) 75 mg TbDi Take 75 mg by mouth acetaminophen (TYLENOL) 500 mg tablet No current facility-administered medications for this visit. Reported medication adherence: yes Reported medication side effects: denies New medical problems or history: denies Objective Vitals not currently . Mental Status Exam: Behavior: generally relaxed and engaged, cooperative Speech: unremarkable Mood: neutral Affect: appropriate for circumstance Thought content: unremarkable Perception: unremarkable Additional objective data: BASIS-24 Clinical Severity - Most Recent Administration Date Administered: 04/24/2025 Domain Subscore & Severity Depression/Functioning 0.48 - Low Interpersonal Relationships 2.68 - High Self-Harm 0 - Low Emotional Lability 1 - Moderate Psychosis 0 - Low Alcohol/Drug Use 0 - Low BASIS-24 Overall Score 0.75 - Low Reference: BASIS-24 Behavior and Symptom Identification Scale: Clinical Cut Scores. Jama Patel (2018). BASIS-24 results were not reviewed. Assessment Provider diagnosis and treatment plan reviewed. F31.70 Bipolar disorder in full remission, most recent episode unspecified type ([facility]) (primary encounter diagnosis) Comment: Risk Assessment: Acute risk for harm to self/others: Low Plan Verified patient medications and allergies; updated patient medical history in medical record. Provided report to Dr. Montana regarding patient concerns and status. Follow up as scheduled Upcoming appointments: Appointments for the next 13 months 06/19/2025 3:40 PM MEDICATION MANAGEMENT [facility] Herberth Montana DO 20 min 06/22/2025 12:30 PM COUNSELING STANDARD [facility] VASQUEZ Whaley 45 min documented in this encounter [facility] Phone: 07-04-2025 History of Present illness Narrative CL called into office and asked for assistance to reach Tessa Dill due to not having access to mychart at hospital and having problem with medication at hospital. TH outreached to provider and asked if client could be outreached. Provider was able to contact client. documented in this encounter [facility] [employer] [facility] Phone: 07-04-2025 Note [facility] 07-04-2025 History of Present illness Narrative Radiology Service Progress Note PATIENT NAME: Rosalva Huagn DATE OF SERVICE: July 04, 2025 TIME: 4:01 PM PATIENT IDENTITY VERIFICATION COMPLETED USING TWO (2) IDENTIFIERS: Name and Date of confirmed by patient verbally. FALL SCREENING: Has the patient had 2 falls in the last year or 1 fall with injury or currently using an Ambulatory Assistive Device (Walker, Cane, Wheelchair, Crutches, etc.)? Emergency Room Patient: Screened in ED PATIENT GENDER DATA: Assigned female at . status: : No status: N/A PATIENT RELEVANT IMPLANT DATA REVIEWED: Not Applicable PATIENT PRESENTS WITH AN IMPLANTABLE OR ATTACHED RECREATIONAL LEADER: N/A RADIOLOGY DEPARTMENT: Ultrasound PERIPHERAL IV DATA: Not applicable SIGNED BY: Kathy Perdomo RDMS, RVBhavana July 04, 2025 4:01 PM documented in this encounter [facility] 06-22-2025 History of Present illness Narrative Reason for Visit: Individual Counseling Video conference visit (Leia.). Patient identity confirmed via name and date of . Potential risks and benefits discussed with patient/guardian, who verbalized consent for telehealth encounter. Patient location: home. Problem: CL reports feeling upset about weight gain and feeling unhealthy. CL stated medications cause weight gain and stated, getting ready to start better me". CL reports no changes in feeling overwhelmed and "kids are a lot". CL stated, "I'm not good at relationships because I'm not emotional or affectionate". F31.71 Bipolar disorder, in partial remission, most recent episode hypomanic (CMS & [facility]-HCC) (primary encounter diagnosis) Mental Status Exam: Within normal limits. Intervention: The following goals were addressed today: GOAL: "I know it will never go away but I want to get better coping skills to manage" Next Care Plan Review Date: 07/19/2025 Provider addressed Rosalva's concerns related to the presenting problem above through the following therapeutic interventions: Active and reflective listening, Enhancing coping skills, and Motivational interviewing. Acute risk for harm to self/others: Low C-SSRS Screen Response/Impression: Rosalva demonstrated no change in session today as evidenced by pre-contemplative about wanting to make changes. Overall impression of treatment demonstrates no change as evidenced by self reports of continued intrafamilial stressors and feeling overwhelmed. TH used DC to help identify problem solving solutions to reduce strain in home. TH educated CL about developmental stages for children and normalized behaviors. CL presented avoidant of discussion about address and housing. BASIS-24 Clinical Severity - Most Recent Administration Date Administered: 04/24/2025 Domain Subscore & Severity Depression/Functioning 0.48 - Low Interpersonal Relationships 2.68 - High Self-Harm 0 - Low Emotional Lability 1 - Moderate Psychosis 0 - Low Alcohol/Drug Use 0 - Low BASIS-24 Overall Score 0.75 - Low Reference: BASIS-24 Behavior and Symptom Identification Scale: Clinical Cut Scores. Jama Patel (2018). BASIS-24 results were reviewed. Plan: Rosalva's follow-up/homework: CL was recommended to engage in self care activity. Provider's follow-up/referrals/action items: N/A Next appointment with this provider: 07/04/25 documented in this encounter [facility] Work Phone: 06-21-2025 Note [facility] 06-21-2025 Procedure note Images from the original note were not included. Headache Center Follow-up Visit Current Preventive: botox Change needed for current preventive? No Current Abortive: NA - would like to restart rizatriptan which was previously effective as a rescue. Miscellaneous Patient Concerns: Currently adjusting bipolar medication - will plan for /IUD removal after. Doing well with headaches overall, but does not have a good rescue. Would like to have rizatriptan again which worked before. Migraines are lasting multiple days - 2 migraines only but lasted 4 days. Impression: Chronic migraine without aura, intractable, without status migrainosus (primary encounter diagnosis) Plan: - will try rizatriptan 10 mg: take 1 at onset of migraine, may repeat in 2 hours if necessary. No more than 2 pills in 24 hours or 2 days/week - Botox today (see procedure note below) Follow-Up Onabotulinum Toxin A (BotoxTM) for Migraine Indication: Chronic Intractable Migraine Treatment #: 7 Referral Expiration: 06/14/2026 Prior to the initiation of the FIRST treatment with Onabotulinum Toxin A, the patient reported the following average headache frequency over the past 3 MONTHS: Number of moderate-severe migraine days/month: 25 Number of mild migraine days/month: 0 Number of headache free days/month: 5 (120 headache-free hours) After treatment with Onabotulinum Toxin A: Number of moderate-severe migraine days/month: 2 Number of mild migraine days/month: 0 Number of headache free days/month: 28 (672 headache-free hours) Patient reduction in overall migraine days: Yes Patient reduction in moderate-severe migraine days: Yes Patient reduction of headache hours by 100 hours or more: Yes (reduction of 552 hours) Individual has obtained clinical benefit deemed significant by individual or prescriber (Y/N): Yes Patient's quality of life and ability to perform ADLs has improved (Y/N): Yes Side effects: none Wearing off: Yes - 11 weeks after treatment The patient has been assessed for disorders which could contribute to breathing or swallowing difficulty, and there is no contraindication with PREEMPT Botox. There is no documented allergic reaction/hypersensitivity to any botulinum toxin and there is no active infection at proposed injection site. HEADACHE SCORES: 12/03/2020 04/04/2024 Headache Questions ER visits since last office visit: 0 Hospital stays since last office visit 0 Limited ADLs in the last month: 2 Days missed from work or school in the last month: 0 Days headache pain free in the last month: 28 Days per month with ALL of the following symptoms - decreased productivity, light sensitivity and nausea: 2 Initial improvement of headache after botox injection at last visit: Not applicable, I did not have a botox injection at my last visit Very much improved PRN medication usage in the last month: 0 5 Patient impression of improvement since last visit: Not applicable, this is my first visit Very much improved 12/03/2020 04/04/2024 07/04/2024 HIT-6 HIT-6 63 (Severe impact) 60 (Severe impact) 63 (Severe impact) 12/03/2020 04/04/2024 07/04/2024 NIKKIE - 2/7 SCORES NIKKIE-2 Score 1 2 6 NIKKIE-7 Score 21 04/04/2024 07/04/2024 Migraine Specific QOL - Higher scores indicate better HRQL Role Function-Restrictive Transformed Score (range: 0-100) 60 60 Role Function-Preventive Transformed Score (range: 0-100) 60 60 Emotional Function Transformed Score (range: 0-100) 60 60 12/03/2020 04/04/2024 07/04/2024 PHQ-9 Score 4 1 5 BP 120/81 (BP Site: Right Arm, BP Position: Sitting, BP Cuff Size: Regular Adult) Pulse 81 LMP (LMP Unknown) Patient name: Rosalva Huang : 1990 ALLERGIES Allergen Reactions Meropenem Rash, Hives, Swelling, Itching, Angioedema Clindamycin Hives Diffuse hives and angioedema of upper lip within 30 minutes of receiving 1st dose. Daptomycin Anaphylaxis Doxycycline Hives Diffuse hives 30 minutes after 1st dose. Diffuse hives and x1 episode of emesis 30 minutes after 2nd dose. Fluconazole Rash Required IV diphenhydramine 01/06/2025 Keflex [Cephalexin] Anaphylaxis 03/13/2025 Tolerated graded dose amoxicillin challenge Diffuse rash with upper lip and tongue swelling 15 minutes after first dose. Onion GI Upset Sulfamethoxazole-Tr* Hives Vancomycin Itching Flushing and pruritus consistent with vancomycin infusion reaction. Please refer to Allergy note from 01/05/2025 for details. Adhesive Tape (Rita* Rash, Itching Patient reports unable to tolerate band-aids after a procedure. She noted redness and itching at site of band aid. Mosquitos Swelling Promethazine Unknown Other Reaction(s): GI Upset Sunscreen Rash Tingle tanning lotion Zyrtec [Cetirizine * Hives, Other: See Comments Hives and palpitations within 30 minutes of 1st dose. Tolerates Benadryl without issue. No contraindication to trying other antihistamines such as Arthur or Claritin. UNIVERSAL PROTOCOL / SAFETY CHECKLIST Procedure: Onabotulinum toxin A for migraine Informed Consent Consent Obtained: Written [place] Protocol A moment to CARE was completed SIGN IN Personnel directly involved with the procedure wore the appropriate PPE Special Equipment: N/A Patient/Surrogate Stated/Verified: Patient name, Date of , Relevant allergies and Intended procedure TIME OUT No relevant labs, photos, and/or imaging studies were applicable for review. Consent documented and matches the intended procedure No correct side/site applicable for marking and visibility. Medications required for procedure verified. No fire risk assessment and interventions applicable. No implant(s) inserted. SIGN OUT No specimen collected. Written Consent Obtained: Written LOT #: [id number] Expiration Date: Month: 10 Year: 2026 Injection Sites Left (Units) Left (Sites) Right (Units) Right (Sites) TOTAL (Units) Manager Mall 5 1 5 1 10 Procerus Units: 5 Sites: 1 5 Frontalis 10 2 10 2 20 Temporalis optional follow the pain 20 15 4 3 20 10 4 2 65 Occipitalis optional follow the pain 15 10 3 2 15 10 3 2 50 Cervical PSP 10 2 10 2 20 Trapezius 15 3 15 3 30 Total Units used: 200 Total Units wasted: 0 Prior Therapies Duration of Use Dose Side effect Other Therapies Nerve blocks Analgesic Diclofenac (Voltaren, Cataflam, Cambia) Hydrocodone/Acetaminophen (Vicodin, [employer]) Anti-Anxiety Alprazolam (Xanax, Niravam) Diazepam (Valium) Anti-Convulsant Lamotrigine (Lamictal) Topiramate (Topamax, Trokendi XL, Qudexy) Anti-Depressant and Antipsychotic Quetiapine (Seroquel) Antiemetics Ondansetron Promethazine Anti-Migraine Rizatriptan (Maxalt) Sumatriptan (Imitrex, Sumavel) GEPANTS Ubrogepant (Ubrelvy) Rimegepant (Nurtec) Supplements CoQ10 Magnesium Riboflavin Other Medications Dexamethasone (Decadron) Methylprednisolone (Medrol) Prednisone Over the Counter Medications Acetaminophen (Tylenol) Ibuprofen (Advil, Motrin) Jaja Moss APRN.CAGER OPERATOR [facility] 06-21-2025 Instructions Jaja Moss APRN.CAGER OPERATOR - 06/21/2025 11:05 AM EDT Images from the original note were not included. Headache and Facial Pain [facility] Frequently Asked Questions about Botox Treatment for Chronic Migraine What is Botox and how does it work for chronic migraine? Botox (short for OnabotulinumtoxinA) is a medication that works by blocking pain signals. When injected into muscles, botox travels along the nerves connected to those muscles and towards the brainstem to reduce the release of pain inducing chemicals in the central nervous system. Botox helps block pain signals at the level of the brain. For chronic migraines, Botox is injected into 7 specific muscles in the head and neck using very small needles. By calming overactive nerve activity and blocking pain signals, Botox can help prevent migraines and can significantly lower the number of headaches you might experience. Botox may reduce migraine frequency and severity significantly for 50-70% of chronic migraine patients. Where are the injections? Botox injections, for chronic migraine, involve a series of 31 injections into 7 different muscles using very small needles. These injections occur around the forehead, temples, back of the head, the neck, and shoulder area. What are the possible side-effects? Botox has very minimal side effects: the most common may be pain at the injection sites, mild bruising and a small amount of bleeding at the injection sites, mild headache or neck pain after treatment, You may experience flu-like symptoms after the injections, but this should be transient and will only last a few days. Muscle weakness around the injection site can occur. Temporary drooping eyelids (ptosis) is a rare but possible side-effect Does it hurt? The needles used in the procedure are extremely small and most patients tolerate the procedure with minimal discomfort. Some patients report mild pinching or stinging. How long does the procedure take? Botox is an outpatient procedure: no sedation is given, and you can drive yourself to/from your appointment - you will leave the same day! The duration of the procedure for the injections, once started, is typically 15-20 minutes. How long will it take until the medication takes effect and I feel better? The Botox medication starts to kick into effect after about 1-2 weeks, it is not immediate. The first or second round of Botox injections may not provide much relief, but it is recommended to continue for at least a total of 2-3 rounds of injections, occurring every 12 weeks, to assess the benefit, prior to stopping the injections. After completion of 3 rounds of injections, you should make an appointment with your primary provider to discuss how well Botox works for you, and develop a long-term treatment plan. Insurance also requires this documentation for Botox renewals. Please be sure to keep a headache diary to discuss with your provider How long does the medication last? The effects of Botox for chronic migraines usually last around 10 to 12 weeks. After this time, you may start to notice that your migraines return or become more frequent. Many people get Botox injections every 12 weeks (84 -91 days) to maintain its effectiveness in preventing migraines, based on what insurance allows. What about my other medications? At the start of Botox therapy, you will continue the medication plan as discussed with your provider. Please plan to make a follow-up appointment after the 3rd round of Botox to discuss long-term planning of your preventive medications. Is it approved by insurance? Many insurance companies will cover Botox treatment if a patient meets criteria for chronic migraine headache and has already tried other preventative options. It is important to share all previously tried medications, including durations of trials and why you stopped taking the medication, with your provider, to help with this documentation. Please be aware that an approval or notification that no pre-certification is required is not equivalent to 100% coverage of payment by your insurance. We encourage you to check with your insurance company for specific benefit details before starting Botox to understand your coverage and any [id number]-[id number] costs. Botox injections are scheduled every 12-13 weeks, per insurance. How long will it take to hear back about insurance approval? Once your provider has referred you for Botox treatment, our team will start the authorization process and contact you within 3-5 business days to schedule a Botox appointment in about 4 weeks while awaiting a decision from insurance. If you haven t heard from a mill order scheduler within 1-2 weeks, please call our office at [phone] (select option 1 for Botox schedulers). Feel free to contact us with any other questions or concerns about Botox: Charter Driver [phone] or [email or web address] Once my appointment is scheduled, how should I prepare? Botox treatments are quick, but you may want to plan for a few quiet hours or even a day or two of rest after the treatment to see how you individually response. Some people feel sore or tired, especially after the first treatments. Stock up on your acute rescue migraine treatments; though it is rare, migraines can flare in the few days immediately after administration of the treatment Please do not apply any makeup prior to your appointment Wear comfortable clothing: Since the injections are given in your head, neck and upper shoulder area, wear something that allows easy access to these areas. If you are also considering or also already undergoing cosmetic Botox (such as for wrinkles), it s important to let your provider know so you can discuss ideal timing of the Botox injections. We encourage you to check with your insurance company for specific benefit details before starting Botox to understand your coverage and any [id number] costs. Do I need a speedboat driver? No; however, if it is the first time you are receiving Botox, it is encouraged to have someone with you for support. What to avoid after the procedure? Lying down: For the first 4 hours after your treatment, we recommend you do not lie down or put pressure on your head, neck, or the areas where you had the Botox injections. This helps prevent the Botox from moving to other areas. Massaging the treated areas: Avoid rubbing or massaging your face, head, neck, or the areas where you had the Botox injections for 24 hours. This helps prevent the Botox from spreading to other areas. Washing the treated areas: Avoid rubbing or applying pressure to your head, neck, face or the areas where you had the Botox injections for 24 hours. This helps prevent the Botox from spreading to other areas. Strenuous exercise: Avoid intense physical activities like running, heavy lifting, or anything that causes you to sweat heavily for at least 24 hours. Hair treatments or dyes: Avoid getting any hair treatments, including coloring or chemical treatments, for 24 hours before or after your Botox injections. The chemicals from these treatments can affect the Botox. When should I call my healthcare provider with concerns after receiving Botox? In general, side-effects are rare. Please call your provider s office if you experience any side-effects that are bothersome to you or persistent: Severe headache that doesn t go away or gets worse. Vision changes: such as blurry vision or difficulty seeing clearly. Drooping eyelid or muscle weakness that doesn t improve or becomes worse. Trouble swallowing or breathing difficulties. Severe pain or swelling at the injection sites that doesn t go away. Signs of an allergic reaction, such as rash, itching, or difficulty breathing Will I need Botox my whole life? Botox for chronic migraines is a long-term treatment, but it is not necessarily something you will need to use for the rest of your life. Many people use Botox treatments for several years to help prevent migraines. Over time, you and your provider may find that the treatment helps so much that you can space out the timing of injections or stop them altogether as your migraine condition calms down. Your provider will regularly check how well the Botox is working for you, and together you can decide how often you need treatments. Can I receive cosmetic Botox while getting Botox for my migraines? Please discuss these details with your primary provider. To prevent the development of antibodies against onabotulinumtoxinA and potential overdose, careful coordination for timing of the procedures close together is necessary, to avoid potential complications and maximize benefit. Can I get Botox while or ? Botox for migraine is not FDA approved for use in and there is limited available data for the analysis of the use of onabotulinum toxin A for the treatment of chronic migraine in . Please discuss the details with your primary provider regarding treatment if you are planning to conceive, currently , or . documented in this encounter [facility] 06-21-2025 Procedure note Images from the original note were not included. Headache Center Follow-up Visit Current Preventive: botox Change needed for current preventive? No Current Abortive: NA - would like to restart rizatriptan which was previously effective as a rescue. Miscellaneous Patient Concerns: Currently adjusting bipolar medication - will plan for /IUD removal after. Doing well with headaches overall, but does not have a good rescue. Would like to have rizatriptan again which worked before. Migraines are lasting multiple days - 2 migraines only but lasted 4 days. Impression: Chronic migraine without aura, intractable, without status migrainosus (primary encounter diagnosis) Plan: - will try rizatriptan 10 mg: take 1 at onset of migraine, may repeat in 2 hours if necessary. No more than 2 pills in 24 hours or 2 days/week - Botox today (see procedure note below) Follow-Up Onabotulinum Toxin A (BotoxTM) for Migraine Indication: Chronic Intractable Migraine Treatment #: 7 Referral Expiration: 06/14/2026 Prior to the initiation of the FIRST treatment with Onabotulinum Toxin A, the patient reported the following average headache frequency over the past 3 MONTHS: Number of moderate-severe migraine days/month: 25 Number of mild migraine days/month: 0 Number of headache free days/month: 5 (120 headache-free hours) After treatment with Onabotulinum Toxin A: Number of moderate-severe migraine days/month: 2 Number of mild migraine days/month: 0 Number of headache free days/month: 28 (672 headache-free hours) Patient reduction in overall migraine days: Yes Patient reduction in moderate-severe migraine days: Yes Patient reduction of headache hours by 100 hours or more: Yes (reduction of 552 hours) Individual has obtained clinical benefit deemed significant by individual or prescriber (Y/N): Yes Patient's quality of life and ability to perform ADLs has improved (Y/N): Yes Side effects: none Wearing off: Yes - 11 weeks after treatment The patient has been assessed for disorders which could contribute to breathing or swallowing difficulty, and there is no contraindication with PREEMPT Botox. There is no documented allergic reaction/hypersensitivity to any botulinum toxin and there is no active infection at proposed injection site. HEADACHE SCORES: 12/03/2020 04/04/2024 Headache Questions ER visits since last office visit: 0 Hospital stays since last office visit 0 Limited ADLs in the last month: 2 Days missed from work or school in the last month: 0 Days headache pain free in the last month: 28 Days per month with ALL of the following symptoms - decreased productivity, light sensitivity and nausea: 2 Initial improvement of headache after botox injection at last visit: Not applicable, I did not have a botox injection at my last visit Very much improved PRN medication usage in the last month: 0 5 Patient impression of improvement since last visit: Not applicable, this is my first visit Very much improved 12/03/2020 04/04/2024 07/04/2024 HIT-6 HIT-6 63 (Severe impact) 60 (Severe impact) 63 (Severe impact) 12/03/2020 04/04/2024 07/04/2024 NIKKIE - 2/7 SCORES NIKKIE-2 Score 1 2 6 NIKKIE-7 Score 21 04/04/2024 07/04/2024 Migraine Specific QOL - Higher scores indicate better HRQL Role Function-Restrictive Transformed Score (range: 0-100) 60 60 Role Function-Preventive Transformed Score (range: 0-100) 60 60 Emotional Function Transformed Score (range: 0-100) 60 60 12/03/2020 04/04/2024 07/04/2024 PHQ-9 Score 4 1 5 BP 120/81 (BP Site: Right Arm, BP Position: Sitting, BP Cuff Size: Regular Adult) Pulse 81 LMP (LMP Unknown) Patient name: Rosalva Huang : 1990 ALLERGIES Allergen Reactions Meropenem Rash, Hives, Swelling, Itching, Angioedema Clindamycin Hives Diffuse hives and angioedema of upper lip within 30 minutes of receiving 1st dose. Daptomycin Anaphylaxis Doxycycline Hives Diffuse hives 30 minutes after 1st dose. Diffuse hives and x1 episode of emesis 30 minutes after 2nd dose. Fluconazole Rash Required IV diphenhydramine 01/06/2025 Keflex [Cephalexin] Anaphylaxis 03/13/2025 Tolerated graded dose amoxicillin challenge Diffuse rash with upper lip and tongue swelling 15 minutes after first dose. Onion GI Upset Sulfamethoxazole-Tr* Hives Vancomycin Itching Flushing and pruritus consistent with vancomycin infusion reaction. Please refer to Allergy note from 01/05/2025 for details. Adhesive Tape (Rita* Rash, Itching Patient reports unable to tolerate band-aids after a procedure. She noted redness and itching at site of band aid. Mosquitos Swelling Promethazine Unknown Other Reaction(s): GI Upset Sunscreen Rash Tingle tanning lotion Zyrtec [Cetirizine * Hives, Other: See Comments Hives and palpitations within 30 minutes of 1st dose. Tolerates Benadryl without issue. No contraindication to trying other antihistamines such as Arthur or Claritin. UNIVERSAL PROTOCOL / SAFETY CHECKLIST Procedure: Onabotulinum toxin A for migraine Informed Consent Consent Obtained: Written [place] Protocol A moment to CARE was completed SIGN IN Personnel directly involved with the procedure wore the appropriate PPE Special Equipment: N/A Patient/Surrogate Stated/Verified: Patient name, Date of , Relevant allergies and Intended procedure TIME OUT No relevant labs, photos, and/or imaging studies were applicable for review. Consent documented and matches the intended procedure No correct side/site applicable for marking and visibility. Medications required for procedure verified. No fire risk assessment and interventions applicable. No implant(s) inserted. SIGN OUT No specimen collected. Written Consent Obtained: Written LOT #: [id number] Expiration Date: Month: Year: 2026 Injection Sites Left (Units) Left (Sites) Right (Units) Right (Sites) TOTAL (Units) Manager Mall 5 1 5 1 10 Procerus Units: 5 Sites: 1 5 Frontalis 10 2 10 2 20 Temporalis optional follow the pain 20 15 4 3 20 10 4 2 65 Occipitalis optional follow the pain 15 10 3 2 15 10 3 2 50 Cervical PSP 10 2 10 2 20 Trapezius 15 3 15 3 30 Total Units used: 200 Total Units wasted: 0 Prior Therapies Duration of Use Dose Side effect Other Therapies Nerve blocks Analgesic Diclofenac (Voltaren, Cataflam, [place]) Hydrocodone/Acetaminophen (Vicodin, [employer]) Anti-Anxiety Alprazolam (Xanax, Niravam) Diazepam (Valium) Anti-Convulsant Lamotrigine (Lamictal) Topiramate (Topamax, Trokendi XL, Qudexy) Anti-Depressant and Antipsychotic Quetiapine (Seroquel) Antiemetics Ondansetron Promethazine Anti-Migraine Rizatriptan (Maxalt) Sumatriptan (Imitrex, Sumavel) GEPANTS Ubrogepant (Ubrelvy) Rimegepant (Nurtec) Supplements CoQ10 Magnesium Riboflavin Other Medications Dexamethasone (Decadron) Methylprednisolone (Medrol) Prednisone Over the Counter Medications Acetaminophen (Tylenol) Ibuprofen (Advil, Motrin) Jaja Moss APRN.[place] documented in this encounter [facility] 05-29-2025 History of Present illness Narrative Associated Problem(s): Generalized anxiety disorder with panic attacks Stable; continue lexapro Orders: escitalopram (LEXAPRO) 20 mg tablet; Take 1 Tablet by mouth once daily. Associated Problem(s): Obsessive-compulsive disorder, unspecified Stable/obsessive and intrusive thoughts are significantly improved; continue current medication regimen Orders: risperiDONE (RISPERDAL) 3 mg tablet; Take 1 Tablet by mouth nightly at bedtime. escitalopram (LEXAPRO) 20 mg tablet; Take 1 Tablet by mouth once daily. Associated Problem(s): Bipolar disorder, rapid cycling ([facility]) Increase depakote to 1500 mg po qhs (last level was low) for rapid-cycling/mood stability and reduce lamotrigine to 50 mg po daily (as a precaution given that lamotrigine can result in higher levels of depakote, consider stopping vs increasing dosage gradually with monitoring levels for combination therapy with both meds, depending on response to higher dose of depakote). Orders: RN NURSING PER 15 MIN [HQ0668] lamoTRIgine (LAMICTAL) 100 mg tablet; Take 0.5 Tablets by mouth once daily. divalproex (DEPAKOTE ER) 500 mg 24 hr tablet; Take 3 Tablets by mouth every evening. Subjective Video conference visit (Leia.). Patient identity confirmed via name and date of . Potential risks and benefits discussed with patient/guardian, who verbalized consent for telehealth encounter. Patient location: home. Chief Complaint: Psychiatric Med Management HPI Rosalva Huang is a 35 year old female with h/o bipolar disorder and NIKKIE, presenting for f/u visit. 05/29/25: Pt continues to c/o "rapid cycling" with mood states lasting a few days at a time, even after starting tx with depakote. She states she was depressed for several days until about 3 days ago. Now feeling a bit hypomanic. Cleaning a lot and not sleeping as much. She was hospitalized for 14 days (was admitted and then readmitted for sepsis) - she was told she had delirium d/t sepsis for a day but this resolved after her infection started to clear. Denies any psychotic symptoms. 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 Finds that taking a break for a cup of coffee and letting her aunt watch the kids helps. Pt reports her mom is taking Depakote and says she loves it but is on "really high" dose together with lithium. Pt reports taking the additional risperdal dosage a few days a week. Seems to help her mood and agitation. Lexapro has helped significantly with intrusive thoughts. Not sure if the lamotrigine has been effective. Was starting to experience rapid-cycling even prior to starting the depakote. 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 Interim substance use history: Social History Substance and Sexual Activity Drug Use Not Currently Types: Opioids, Marijuana Comment: When she was 17 she had a problem with marijuana and prescription drug abuse (snorted Xanax and abused pain pills) and she got in trouble at 17 and at 18 she stopped Tobacco History Tobacco Use Smoking Status Never Smokeless Tobacco Never Social History Substance and Sexual Activity Alcohol Use Not Currently Comment: 2 months ago 01/30/25: Copied forward from [facility] (Dec admission): ALLERGIES Allergen Reactions Clindamycin Hives Diffuse hives and angioedema of upper lip within 30 minutes of receiving 1st dose. Doxycycline Hives Diffuse hives 30 minutes after 1st dose. Diffuse hives and x1 episode of emesis 30 minutes after 2nd dose. Fluconazole Rash Required IV diphenhydramine 01/06/2025 Onion GI Upset Vancomycin Itching Flushing and pruritus consistent with vancomycin infusion reaction. Please refer to Allergy note from 01/05/2025 for details. Adhesive Tape (Rita* Rash, Itching Patient reports unable to tolerate band-aids after a procedure. She noted redness and itching at site of band aid. Mosquitos Swelling Phenergan [Prometha* GI Upset Sunscreen Rash Tingle tanning lotion Zyrtec [Cetirizine * Hives, Other: See Comments Hives and palpitations within 30 minutes of 1st dose. Tolerates Benadryl without issue. No contraindication to trying other antihistamines such as Arthur or Claritin Meds: Outpatient Medications Prior to Visit Medication Sig Dispense Refill divalproex (DEPAKOTE ER) 500 mg 24 hr tablet Take 2 Tablets by mouth every evening. 30 Tablet 0 lamoTRIgine (LAMICTAL) 100 mg tablet Take 1 Tablet by mouth once daily. 30 Tablet 0 hydrOXYzine HCL (ATARAX) 25 mg tablet Take 1 Tablet by mouth 3 (three) times daily as needed for anxiety. 90 Tablet 0 ondansetron ODT (ZOFRAN-ODT) 4 mg disintegrating tablet TAKE 1 TABLET BY MOUTH EVERY 6 HOURS NEEDED FOR NAUSEA AND VOMITING FOR UP TO 7 DAYS escitalopram (LEXAPRO) 20 mg tablet Take 1 Tablet by mouth once daily. 30 Tablet 1 risperiDONE (RISPERDAL) 0.5 mg tablet Take 1 Tablet by mouth once daily as needed for other reason (agitation). 30 Tablet 1 risperiDONE (RISPERDAL) 3 mg tablet Take 1 Tablet by mouth 2 (two) times daily. 30 Tablet 1 ACNE MEDICATION 5 % EPINEPHrine (EPIPEN) 0.3 mg/0.3 mL pen injector Inject 0.3 mg into the muscle hydrocortisone 2.5 % cream ubrogepant (UBRELVY) 100 mg tab Take 100 mg by mouth onabotulinumtoxinA (BOTOX) 200 unit solr injection Inject 200 Units into the skin Every 12 Weeks methylcellulose, laxative, (CITRUCEL) 500 mg tab tab Take 1,000 mg by mouth every 8 (eight) hours as needed rimegepant (NURTEC ODT) 75 mg TbDi Take 75 mg by mouth acetaminophen (TYLENOL) 500 mg tablet No facility-administered medications prior to visit. Objective 04/24/2025 9:36 AM BP 118/76 Pulse 99 Weight 191 lb (86.6 kg) % Change in weight 20.9 Height 5' 4" (162.6 cm) Estimated body mass index is 32.79 kg/m as calculated from the following: Height as of 04/24/25: 5' 4" (1.626 m). Weight as of 04/24/25: 191 lb (86.6 kg). Mental Status Exam Appearance is appropriate for circumstance and neat. as able to visualize on videoconference General Health is generally good. as able to visualize on videoconference Eye Contact is good. as able to visualize on video Motor Activity is unremarkable. as able to visualize on video Speech is unremarkable. Affect is full range and mood-congruent. Reported Mood is neutral/euthymic. Thought Content has obsessions does not have suicidal ideations and does not have homicidal ideations. intrusive/obsessions are greatly reduced Thought Process is unremarkable, is goal-directed and is linear. Perception is unremarkable. Attention is alert. Demeanor is appropriate for situation and cooperative. Insight is appropriate. Judgement is appropriate. Orientation is fully oriented. Memory is grossly intact and not formally tested. Data Reviewed (labs, BASIS-24, AIMS, outside records, etc): Reviewed labs from February and Mar, 2025 in Care Everywhere (CMP, CBC most notably). Lab Results Component Value Date CHOL 203 (H) 04/24/2025 LDL 117 (H) 04/24/2025 HDL 72 04/24/2025 TRIGLYC 81 04/24/2025 HGBA1C 5.1 04/24/2025 CREATININE 0.85 05/24/2025 EGFR 92 05/24/2025 Lab Results Component Value Date VALPROIC 46 (L) 05/24/2025 BASIS-24 Clinical Severity - Most Recent Administration Date Administered: 04/24/2025 Domain Subscore & Severity Depression/Functioning 0.48 - Low Interpersonal Relationships 2.68 - High Self-Harm 0 - Low Emotional Lability 1 - Moderate Psychosis 0 - Low Alcohol/Drug Use 0 - Low BASIS-24 Overall Score 0.75 - Low Reference: BASIS-24 Behavior and Symptom Identification Scale: Clinical Cut Scores. Jama Patel (2018). Last Menstrual Period: Assessment Safety Risk Assessment: Acute risk for harm to self/others: Low Chronic risk for harm to self/others: Low No SI/intent/plan. No thoughts of hurting others/HI. No access to weapons. Assessment & Plan Obsessive-compulsive disorder, unspecified type Stable/obsessive and intrusive thoughts are significantly improved; continue current medication regimen Orders: risperiDONE (RISPERDAL) 3 mg tablet; Take 1 Tablet by mouth nightly at bedtime. escitalopram (LEXAPRO) 20 mg tablet; Take 1 Tablet by mouth once daily. Bipolar disorder, rapid cycling ([facility]) Increase depakote to 1500 mg po qhs (last level was low) for rapid-cycling/mood stability and reduce lamotrigine to 50 mg po daily (as a precaution given that lamotrigine can result in higher levels of depakote, consider stopping vs increasing dosage gradually with monitoring levels for combination therapy with both meds, depending on response to higher dose of depakote). Orders: RN NURSING PER 15 MIN [NV1111] lamoTRIgine (LAMICTAL) 100 mg tablet; Take 0.5 Tablets by mouth once daily. divalproex (DEPAKOTE ER) 500 mg 24 hr tablet; Take 3 Tablets by mouth every evening. Generalized anxiety disorder with panic attacks Stable; continue lexapro Orders: escitalopram (LEXAPRO) 20 mg tablet; Take 1 Tablet by mouth once daily. Plan Risks, benefits, and alternatives were discussed. Patient/guardian understood and agreed with the plan. Reviewed Safety Plan: Call 911 or go to ED if in crisis. Advised of availability of after hours RN by calling main number for [facility]. Follow-up: No follow-ups on file. Upcoming Appointments: Appointments for the next 13 months 06/14/2025 8:30 AM COUNSELING STANDARD [facility] VASQUEZ Whaley 45 min 06/19/2025 3:20 PM MEDICATION MANAGEMENT [facility] [id number] BW NURSE LUCI MONTANA 20 min 06/19/2025 3:40 PM MEDICATION MANAGEMENT [facility] Herberth Montana DO 20 min Reason for visit: Psychiatric Med Management Rosalva presents prior to their psychiatry provider visit to evaluate medication effectiveness, update medical history, and review overall treatment status. Video conference visit (Leia.). Patient identity confirmed via name and date of . Potential risks and benefits discussed with patient/guardian, who verbalized consent for telehealth encounter. Patient location: home. Subjective Interval history and patient concerns: Client reports she is still rapid cycling. Intrusive thoughts are fine, not bothering her. Denies thoughts of self harm or harming others. Mood is "a little manic." Feels she is hyper for the past 3 days. Reports hard to sleep at night. Averaging 6-8 hrs of sleep at night. Takes a while to fall asleep. Denies hallucinations or delusional thoughts. Reports she had sepsis while she was in the hospital and she became confused. Feels a lot better now. Reports her infection is under control. Reports her sepsis numbers came down to normal when she was discharged from the hospital. Some depression symptoms. Anxiety is "pretty bad." States she is managing the kids fine and has a routine with them. Currently staying at her aunt Nicholas house, stating a few weeks to a month, she has been staying there. States she was int he hosptial for 14 days. Current Outpatient Medications Medication Sig Dispense Refill divalproex (DEPAKOTE ER) 500 mg 24 hr tablet Take 2 Tablets by mouth every evening. 30 Tablet 0 lamoTRIgine (LAMICTAL) 100 mg tablet Take 1 Tablet by mouth once daily. 30 Tablet 0 escitalopram (LEXAPRO) 20 mg tablet Take 1 Tablet by mouth once daily. 30 Tablet 1 hydrOXYzine HCL (ATARAX) 25 mg tablet Take 1 Tablet by mouth 3 (three) times daily as needed for anxiety. 90 Tablet 0 ondansetron ODT (ZOFRAN-ODT) 4 mg disintegrating tablet TAKE 1 TABLET BY MOUTH EVERY 6 HOURS NEEDED FOR NAUSEA AND VOMITING FOR UP TO 7 DAYS risperiDONE (RISPERDAL) 0.5 mg tablet Take 1 Tablet by mouth once daily as needed for other reason (agitation). 30 Tablet 1 risperiDONE (RISPERDAL) 3 mg tablet Take 1 Tablet by mouth 2 (two) times daily. 30 Tablet 1 ACNE MEDICATION 5 % EPINEPHrine (EPIPEN) 0.3 mg/0.3 mL pen injector Inject 0.3 mg into the muscle hydrocortisone 2.5 % cream ubrogepant (UBRELVY) 100 mg tab Take 100 mg by mouth onabotulinumtoxinA (BOTOX) 200 unit solr injection Inject 200 Units into the skin Every 12 Weeks methylcellulose, laxative, (CITRUCEL) 500 mg tab tab Take 1,000 mg by mouth every 8 (eight) hours as needed rimegepant (NURTEC ODT) 75 mg TbDi Take 75 mg by mouth acetaminophen (TYLENOL) 500 mg tablet No current facility-administered medications for this visit. Reported medication adherence: yes Reported medication side effects: denies New medical problems or history: denies Objective Vitals not currently . Mental Status Exam: Behavior: generally relaxed and engaged, cooperative Speech: unremarkable Mood: neutral Affect: appropriate for circumstance Thought content: unremarkable Perception: unremarkable Additional objective data: BASIS-24 Clinical Severity - Most Recent Administration Date Administered: 04/24/2025 Domain Subscore & Severity Depression/Functioning 0.48 - Low Interpersonal Relationships 2.68 - High Self-Harm 0 - Low Emotional Lability 1 - Moderate Psychosis 0 - Low Alcohol/Drug Use 0 - Low BASIS-24 Overall Score 0.75 - Low Reference: BASIS-24 Behavior and Symptom Identification Scale: Clinical Cut Scores. Jama Patel (2018). BASIS-24 results were not reviewed. Assessment Provider diagnosis and treatment plan reviewed. F31.70 Bipolar disorder in full remission, most recent episode unspecified type ([facility]) (primary encounter diagnosis) Comment: Risk Assessment: Acute risk for harm to self/others: Low Plan Verified patient medications and allergies; updated patient medical history in medical record. Provided report to Dr. Montana regarding patient concerns and status. Follow up as scheduled Upcoming appointments: Appointments for the next 13 months 05/29/2025 12:40 PM MEDICATION MANAGEMENT [facility] Herberth Montana DO 20 min 06/14/2025 8:30 AM COUNSELING STANDARD [facility] VASQUEZ Whaley 45 min documented in this encounter [facility] Work Phone: 05-23-2025 History of Present illness Narrative Reason for Visit: Individual Counseling Video conference visit (Leia.). Patient identity confirmed via name and date of . Potential risks and benefits discussed with patient/guardian, who verbalized consent for telehealth encounter. Patient location: home. Problem: CL stated after getting discharged from hospital had to go back due to sepsis in other breast. CL reported having deathly levels and having to do breathing treatments and get checked every three weeks for up to six months. CL stated,"I feel really shitty and have a lot of side effects". CL expressed feeling very overwhelmed with children and stated, "I hate this age, I can't wait for them to be older and do things themselves". CL reported having no support in home, no support from Aunt and is expected to clean, cook, and take care kids and dogs. CL stated, "I just need to do better". F60.3 Borderline personality disorder ([facility]) (primary encounter diagnosis) Mental Status Exam: Within normal limits. Intervention: The following goals were addressed today: GOAL: I will learn and use 1-3 skills to manage thoughts, feelings, and urges brought on by encounters with trauma-related situations. and GOAL: Identify and discuss unresolved life conflicts (see measurable component below): Next Care Plan Review Date: 07/19/2025 Provider addressed Rosalva's concerns related to the presenting problem above through the following therapeutic interventions: Active and reflective listening, Enhancing coping skills, and Symptom management, skill building. Acute risk for harm to self/others: Low C-SSRS Screen Response/Impression: Rosalva demonstrated no change in session today as evidenced by presenting with splitting and avoidant behaviors. TH offered interventions to reduce stressors and help improve feelings of being overwhelmed. Cl was defensive about ideas and avoidant of suggestions. Overall impression of treatment demonstrates deterioration as evidenced by continued hospitalizations with conflicting self reports and hospital notes. CL was asked what changes would client be willing to make but no clarity or goals were provided. TH explored motivation for continuing to look for housing or employment and get outside support. CL stated was unsure at this time of housing but concerned about losing benefits if gaining employment and expressed knowing that children's father would not pay child support. CL was encouraged to incorporate self care into schedule to help manage symptoms. CL meets criteria for diagnosis of Borderline Personality disorder after symptom monitoring and symptom history. CL is meeting criteria that reflect in behaviors of instability in interpersonal relationships, impulsivity and self image by being avoidant in real or imagined abandonment, unstable interpersonal relationships, unstable self image, impulsivity, instability in mood, and difficulty with anger. TH will discuss diagnosis in more detail at next appt with client. BASIS-24 Clinical Severity - Most Recent Administration Date Administered: 04/24/2025 Domain Subscore & Severity Depression/Functioning 0.48 - Low Interpersonal Relationships 2.68 - High Self-Harm 0 - Low Emotional Lability 1 - Moderate Psychosis 0 - Low Alcohol/Drug Use 0 - Low BASIS-24 Overall Score 0.75 - Low Reference: BASIS-24 Behavior and Symptom Identification Scale: Clinical Cut Scores. Jama Patel (2018). BASIS-24 results were not reviewed. Plan: Rosalva's follow-up/homework: CL was recommended to engage in self care Provider's follow-up/referrals/action items: N/A Next appointment with this provider: 06/14/25 documented in this encounter [facility] Work Phone: 05-22-2025 Note HNO ID: [id number] Author: VANESSA CLEMENTS RN Service: Care Management Author Type: Registered Nurse Type: Care Mgt Progress Note Filed: 05/22/2025 14:33 Note Text: Summary: high risk readmission CARE MANAGEMENT DISCHARGE NOTE SERVICE DATE: May 22, 2025 SERVICE TIME: 2:25 PM Admission Date: 05/18/2025 LOS: 4 days Discharge Arrangement Discharge Arrangement: Home with Self Care Services Arranged Provider Name: on file Phone: see below Caregiver Assessment Caregiver is ready, willing and able to meet the patient's needs as recommended by the inter-professional team: No Caregiver needed Transportation Arrangements Transportation Arrangements: Car Destination: home Handoff Communication: Additional Information: DC today-home with no skilled needs-PCP visit scheduled Friday May 30, 2025 2:20 PM Nidhi Kennedy MD [facility] [place] [facility]) HIGH RISK READMISSION NOTE: HAS PATIENT BEEN READMITTED WITHIN THE PAST 7 DAYS?: yes 30-DAY READMISSION RISK (%) of 40 OR ABOVE?: yes READMISSION SCORE: 61 SDOH QUESTIONS REVIEWED WITH PATIENT?: yes DATE OF LAST ADMISSION: 05/11/2025 PT STATED REASON FOR ADMISSION: rt breast mastitis -discharge from nipples PATIENT GOALS:heal-none goals per pt INTERVENTIONS IMPLEMENTED TO PREVENT READMISSION: PCP f/w visit scheduled, IV ATB vancomycin administered PCP OR F/U VISIT ARRANGED ? IF YES, DATE AND PROVIDER: yes-Friday May 30, 2025 2:20 PM Office Visit with Nidhi Kennedy MD DISCHARGE PLAN:home with family-f/w appts scheduled SIGNATURE: Vanessa Clements RN PATIENT NAME: Rosalva Huang DATE: May 22, 2025 TIME: 2:24 PM [facility] 05-21-2025 Note HNO ID: [id number] Author: DELMI ROSENTHAL MD Service: Hospital Medicine Author Type: Physician Type: Progress Notes Filed: 05/21/2025 12:53 Note Text: [facility] Internal Medicine Inpatient PROGRESS NOTE PATIENT NAME: Rosalva Huang SERVICE DATE: 05/21/2025 SERVICE TIME: 12:43 PM HOSPITAL DAY: 3 PRIMARY CARE PHYSICIAN: No primary care provider on file. CODE STATUS: Code Status: Full Code Days: [phone], please page Delmi Rosenthal MD for patient issues either through mypaging or OfficialVirtualDJ/3scale. Nights: [phone], please page [facility] night coverage pager [phone] for Team 1,2 AND3. Impression: Rosalva Huang is a35 year old female with past medical history of bipolar disorder, multiple antibiotic allergies, who presented to the ED with left nipple discharge in setting of mastitis post nipple piercing. INTERVAL HPI / Subjective: Today is day # 3, patient - Overnight Events: No issues overnight, she had her dose of vancomycin this morning after which she was complaining of itching. No fever or chills. Physical Exam / Objective: BP 112/76 Pulse 75 Temp 36.7 ?C (98.1 ?F) (Oral) Resp 16 Ht 162.6 cm (5' 4") Wt 85.7 kg (189 lb) LMP (LMP Unknown) SpO2 95% BMI 32.44 kg/m? General Appearance: Well developed and Well nourished HEENT: PERRLA and EOM's intact Lungs: Clear Heart: Regular rate AND rhythm, No heaves, No lifts, and No thrills Abdomen: Soft, Firm, Round, and Non-tender Skin: Warm, Breast exam in presence of After School Counselor Nurse purulent drainage from right breast. Musculoskeletal: No deformities Neurologic/Psychiatric: Oriented to time, place AND person Intake/Output Summary (Last 24 hours) at 05/21/2025 1243 Last data filed at 05/21/2025 0845 Gross per 24 hour Intake 120 ml Output -- Net 120 ml Labs/Data: CBC: Recent Labs 05/21/25 0621 05/20/25 0453 05/19/25 0555 05/18/25 1540 05/17/25 0904 05/16/25 0637 05/15/25 0342 WBC 6.55 6.95 8.73 11.65* 8.30 9.43 6.35 HB 12.8 12.9 13.0 14.4 14.2 13.4 12.5 PLT 248 248 244 261 270 265 235 MCV 88.1 89.0 88.0 90.9 87.1 87.4 89.7 RDWCV 13.0 13.3 13.4 13.6 13.2 13.2 13.4 NEUTP -- -- -- 50.9 -- 77.8 -- ABSNEUT -- -- -- 5.93 -- 7.33 -- LYMPHP -- -- -- 38.2 -- 12.5 -- MONOP -- -- -- 7.8 -- 7.6 -- EODINP -- -- -- 0.5 -- 0.0 -- COAG: No results for input(s): "APTT", "INR" in the last 168 hours. BMP: Recent Labs 05/21/25 0605/20/25 0453 05/19/25 0555 05/18/25 1540 05/17/25 0904 05/16/25 0637 05/15/25 0342 GLUC 124* 89 88 76 131* 120* 99 NA 140 140 142 140 137 136 140 K 4.2 4.3 3.9 3.8 4.7 -- 4.4 CHLOR 106 103 106 104 105 104 103 CO2 22 23 23 24 19* 19* 26 ANION 12 14 13 12 13 13 11 BUN 16 13 16 18 13 13 14 CREAT 0.70 0.75 0.68 0.74 0.52* 0.54* 0.78 CHEM: Recent Labs 05/21/2562005/20/253 05/19/25 0555 05/18/25 1540 05/17/25 0904 05/16/25 0637 05/15/25 0342 ALB 3.7* 3.6* 3.8* 4.4 4.2 4.0 3.7* TPROT 5.9* 6.0* 6.2* 7.2 7.1 6.9 6.0* CA 8.7 8.5 8.7 9.2 9.1 9.0 8.8 HEPATIC: Recent Labs 05/21/2562005/20/25 0453 05/19/25 0555 05/18/25 1540 05/17/25 0904 05/16/25 0637 05/15/25 0342 ALKPHOS 99 104 100 111 112 -- 95 ALT 52* 64* 58* 68* 76* -- 39* AST 21 32 27 29 38* -- 21 TBILI 0.2 0.4 0.3 0.2 0.2 0.2 0.3 CARDIAC: No results for input(s): "CKTEST", "CKMB", "CKMBP", "TROPT", "PBNP" in the last 168 hours. URINALYSIS:No results for input(s): "PH", "SPGR", "UGLUC", "UBILI", "UKET", "UHB", "UPROT", "UROBIL", "UWBC", "SSA" in the last 168 hours. Invalid input(s): "NITR" Estimated Creatinine Clearance: 120 mL/min (based on SCr of 0.7 mg/dL). Medications: Current Facility-Administered Medications Medication Dose Route Frequency clonazePAM 1 mg tab(s) (KlonoPIN) 1 mg ORAL DAILY PRN divalproex ER 1,000 mg tab(s) (DEPAKOTE ER) 1,000 mg ORAL AT BEDTIME escitalopram oxalate 20 mg tab(s) (LEXAPRO) 20 mg ORAL AT BEDTIME lamoTRIgine 100 mg tab(s) (LaMICtal) 100 mg ORAL AT BEDTIME risperiDONE (RisperDAL) tab(s) 3 mg 3 mg ORAL AT BEDTIME NaCl 0.9% iv flush bag 20 mL INTRAVENOUS PRN vancomycin iv piggyback 1.25 g in D5W 250 mL (VANCOCIN) 0.015 g/kg/dose INTRAVENOUS q 12 HR vancomycin dosing and monitoring per pharmacy OTHER As Directed diphenhydrAMINE 50 mg injection (BENADRYL) 50 mg INTRAVENOUS q 6 H PRN polyethylene glycol 3350 17 g packet 17 g ORAL DAILY senna-docusate 8.6-50 mg 1 tablet (SENNA-S) 1 tablet ORAL BID bisacodyl 10 mg suppository (DULCOLAX) 10 mg RECTAL DAILY PRN acetaminophen 1,000 mg tab(s) (TYLENOL) 1,000 mg ORAL q 6 H Assessment and Plan: Active Hospital Problems Diagnosis Date Noted Acute mastitis 05/18/2025 Hepatic steatosis 05/19/2025 Cellulitis of chest wall 05/19/2025 Metabolic encephalopathy 05/19/2025 Obsessive-compulsive disorder, unspecified 05/18/2025 At risk for allergic reaction to medication 03/07/2025 Urticaria 03/02/2025 Generalized anxiety disorder with (more content not included)... [facility] 05-20-2025 Note HNO ID: [id number] Author: DELMI ROSENTHAL MD Service: Hospital Medicine Author Type: Physician Type: Progress Notes Filed: 05/21/2025 13:00 Note Text: [facility] Internal Medicine Inpatient PROGRESS NOTE PATIENT NAME: Rosalva Huang SERVICE DATE: 05/20/2025 SERVICE TIME: 1:53 PM HOSPITAL DAY: 2 PRIMARY CARE PHYSICIAN: No primary care provider on file. CODE STATUS: Code Status: Full Code Days: [phone], please page Delmi Rosenthal MD for patient issues either through [employer] or Official[employer]DJ/3scale. Nights: [phone], please page [facility] night coverage pager [phone] for Team 1,2 AND3. Impression: Rosalva Huang is a35 year old female with past medical history of bipolar disorder, multiple antibiotic allergies, who presented to the ED with left nipple discharge in setting of mastitis post nipple piercing. INTERVAL HPI / Subjective: Today is day # 2, patient - Overnight Events: No fever or chills, no rash, hemodynamically stable, continue to complain of breasts pain. Physical Exam / Objective: BP 120/68 Pulse 89 Temp 36.7 ?C (98.1 ?F) (Oral) Resp 16 Ht 162.6 cm (5' 4") Wt 85.7 kg (189 lb) LMP (LMP Unknown) SpO2 93% BMI 32.44 kg/m? General Appearance: Well developed and Well nourished HEENT: PERRLA and EOM's intact Lungs: Clear Heart: Regular rate AND rhythm, No heaves, No lifts, and No thrills Abdomen: Soft, Firm, Round, and Non-tender Skin: Warm, Breast exam in presence of After School Counselor Nurse purulent drainage from right breast. Musculoskeletal: No deformities Neurologic/Psychiatric: Oriented to time, place AND person Intake/Output Summary (Last 24 hours) at 05/20/2025 1343 Last data filed at 05/19/2025 1557 Gross per 24 hour Intake 500 ml Output -- Net 500 ml Labs/Data: CBC: Recent Labs 05/20/25 0453 05/19/25 0555 05/18/25 1540 05/17/25 0904 05/16/25 0637 05/15/25 0342 05/14/25 0510 WBC 6.95 8.73 11.65* 8.30 9.43 6.35 6.94 HB 12.9 13.0 14.4 14.2 13.4 12.5 13.1 PLT 248 244 261 270 265 235 231 MCV 89.0 88.0 90.9 87.1 87.4 89.7 88.2 RDWCV 13.3 13.4 13.6 13.2 13.2 13.4 13.4 NEUTP -- -- 50.9 -- 77.8 -- -- ABSNEUT -- -- 5.93 -- 7.33 -- -- LYMPHP -- -- 38.2 -- 12.5 -- -- MONOP -- -- 7.8 -- 7.6 -- -- EODINP -- -- 0.5 -- 0.0 -- -- COAG: No results for input(s): "APTT", "INR" in the last 168 hours. BMP: Recent Labs 05/20/25 0453 05/19/25 0555 05/18/25 1540 05/17/25 0904 05/16/25 0637 05/15/25 0342 05/14/25 0510 GLUC 89 88 76 131* 120* 99 92 NA 140 142 140 137 136 140 140 K 4.3 3.9 3.8 4.7 -- 4.4 4.0 CHLOR 103 106 104 105 104 103 104 CO2 23 23 24 19* 19* 26 24 ANION 14 13 12 13 13 11 12 BUN 13 16 18 13 13 14 11 CREAT 0.75 0.68 0.74 0.52* 0.54* 0.78 0.83 CHEM: Recent Labs 05/20/25 0453 05/19/25 0555 05/18/25 1540 05/17/25 0904 05/16/25 0637 05/15/25 0342 05/14/25 0510 ALB 3.6* 3.8* 4.4 4.2 4.0 3.7* -- TPROT 6.0* 6.2* 7.2 7.1 6.9 6.0* -- CA 8.5 8.7 9.2 9.1 9.0 8.8 8.7 HEPATIC: Recent Labs 05/20/25 0453 05/19/25 0555 05/18/25 1540 05/17/25 0904 05/16/25 0637 05/15/25 0342 ALKPHOS 104 100 111 112 -- 95 ALT 64* 58* 68* 76* -- 39* AST 32 27 29 38* -- 21 TBILI 0.4 0.3 0.2 0.2 0.2 0.3 CARDIAC: No results for input(s): "CKTEST", "CKMB", "CKMBP", "TROPT", "PBNP" in the last 168 hours. URINALYSIS:No results for input(s): "PH", "SPGR", "UGLUC", "UBILI", "UKET", "UHB", "UPROT", "UROBIL", "UWBC", "SSA" in the last 168 hours. Invalid input(s): "NITR" Estimated Creatinine Clearance: 112 mL/min (based on SCr of 0.75 mg/dL). Medications: Current Facility-Administered Medications Medication Dose Route Frequency clonazePAM 1 mg tab(s) (KlonoPIN) 1 mg ORAL DAILY PRN divalproex ER 1,000 mg tab(s) (DEPAKOTE ER) 1,000 mg ORAL AT BEDTIME escitalopram oxalate 20 mg tab(s) (LEXAPRO) 20 mg ORAL AT BEDTIME lamoTRIgine 100 mg tab(s) (LaMICtal) 100 mg ORAL AT BEDTIME risperiDONE (RisperDAL) tab(s) 3 mg 3 mg ORAL AT BEDTIME NaCl 0.9% iv flush bag 20 mL INTRAVENOUS PRN vancomycin iv piggyback 1.25 g in D5W 250 mL (VANCOCIN) 0.015 g/kg/dose INTRAVENOUS q 12 HR vancomycin dosing and monitoring per pharmacy OTHER As Directed diphenhydrAMINE 50 mg injection (BENADRYL) 50 mg INTRAVENOUS q 6 H PRN polyethylene glycol 3350 17 g packet 17 g ORAL DAILY senna-docusate 8.6-50 mg 1 tablet (SENNA-S) 1 tablet ORAL BID bisacodyl 10 mg suppository (DULCOLAX) 10 mg RECTAL DAILY PRN keTORolac 15 mg injection (Toradol) 15 mg INTRAVENOUS q 6 H PRN acetaminophen 1,000 mg tab(s) (TYLENOL) 1,000 mg ORAL q 6 H Assessment and Plan: Active Hospital Problems Diagnosis Date Noted Acute mastitis 05/18/2025 Hepatic steatosis 05/19/2025 Cellulitis of chest wall 05/19/2025 Metabolic encephalopathy 05/19/2025 Obsessive-compulsive disorder, unspecified 05/18/2025 At risk for allergic reaction to medication 03/07/2025 Urticaria 03/02/2025 Generalized anxiety disorder with panic at (more content not included)... [facility] 05-20-2025 Note HNO ID: [id number] Author: DELMI ROSENTHAL MD Service: Hospital Medicine Author Type: Physician Type: Progress Notes Filed: 05/21/2025 12:42 Note Text: [facility] Internal Medicine Inpatient PROGRESS NOTE PATIENT NAME: Rosalva Huang SERVICE DATE: 05/19/2025 SERVICE TIME: 2:55 PM HOSPITAL DAY: 2 PRIMARY CARE PHYSICIAN: No primary care provider on file. CODE STATUS: Code Status: Full Code Days: [phone], please page Cherie Cunningham MD for patient issues either through [employer] or [employer]. Nights: [phone], please page [facility] night coverage pager [phone] for Team 1,2 AND3. Impression: Rosalva Huang is a35 year old female with past medical history of bipolar disorder, multiple antibiotic allergies, who presented to the ED with left nipple discharge in setting of mastitis post nipple piercing. INTERVAL HPI / Subjective: Today is day # 2, patient - Overnight Events: Admitted overnight - remains HDS still have purulent drainage from the nipple Physical Exam / Objective: BP 114/72 Pulse 77 Temp 36.5 ?C (97.7 ?F) (Oral) Resp 16 Ht 162.6 cm (5' 4") Wt 85.7 kg (189 lb) LMP (LMP Unknown) SpO2 97% BMI 32.44 kg/m? General Appearance: Well developed and Well nourished HEENT: PERRLA and EOM's intact Lungs: Clear Heart: Regular rate AND rhythm, No heaves, No lifts, and No thrills Abdomen: Soft, Firm, Round, and Non-tender Skin: Warm, Breast exam in presence of After School Counselor Nurse purulent drainage from right breast. Musculoskeletal: No deformities Neurologic/Psychiatric: Oriented to time, place AND person Intake/Output Summary (Last 24 hours) at 05/20/2025 0909 Last data filed at 05/19/2025 1557 Gross per 24 hour Intake 500 ml Output -- Net 500 ml Labs/Data: CBC: Recent Labs 05/20/25 0453 05/19/25 0555 05/18/25 1540 05/17/25 0904 05/16/25 0637 05/15/25 0342 05/14/25 0510 WBC 6.95 8.73 11.65* 8.30 9.43 6.35 6.94 HB 12.9 13.0 14.4 14.2 13.4 12.5 13.1 PLT 248 244 261 270 265 235 231 MCV 89.0 88.0 90.9 87.1 87.4 89.7 88.2 RDWCV 13.3 13.4 13.6 13.2 13.2 13.4 13.4 NEUTP -- -- 50.9 -- 77.8 -- -- ABSNEUT -- -- 5.93 -- 7.33 -- -- LYMPHP -- -- 38.2 -- 12.5 -- -- MONOP -- -- 7.8 -- 7.6 -- -- EODINP -- -- 0.5 -- 0.0 -- -- COAG: No results for input(s): "APTT", "INR" in the last 168 hours. BMP: Recent Labs 05/20/25 0453 05/19/25 0555 05/18/25 1540 05/17/25 0904 05/16/25 0637 05/15/25 0342 05/14/25 0510 GLUC 89 88 76 131* 120* 99 92 NA 140 142 140 137 136 140 140 K 4.3 3.9 3.8 4.7 -- 4.4 4.0 CHLOR 103 106 104 105 104 103 104 CO2 23 23 24 19* 19* 26 24 ANION 14 13 12 13 13 11 12 BUN 13 16 18 13 13 14 11 CREAT 0.75 0.68 0.74 0.52* 0.54* 0.78 0.83 CHEM: Recent Labs 05/20/25 0453 05/19/25 0555 05/18/25 1540 05/17/25 0904 05/16/25 0637 05/15/25 0342 05/14/25 0510 ALB 3.6* 3.8* 4.4 4.2 4.0 3.7* -- TPROT 6.0* 6.2* 7.2 7.1 6.9 6.0* -- CA 8.5 8.7 9.2 9.1 9.0 8.8 8.7 HEPATIC: Recent Labs 05/20/25 0453 05/19/25 0555 05/18/25 1540 05/17/25 0904 05/16/25 0637 05/15/25 0342 ALKPHOS 104 100 111 112 -- 95 ALT 64* 58* 68* 76* -- 39* AST 32 27 29 38* -- 21 TBILI 0.4 0.3 0.2 0.2 0.2 0.3 CARDIAC: No results for input(s): "CKTEST", "CKMB", "CKMBP", "TROPT", "PBNP" in the last 168 hours. URINALYSIS:No results for input(s): "PH", "SPGR", "UGLUC", "UBILI", "UKET", "UHB", "UPROT", "UROBIL", "UWBC", "SSA" in the last 168 hours. Invalid input(s): "NITR" Estimated Creatinine Clearance: 112 mL/min (based on SCr of 0.75 mg/dL). Medications: Current Facility-Administered Medications Medication Dose Route Frequency clonazePAM 1 mg tab(s) (KlonoPIN) 1 mg ORAL DAILY PRN divalproex ER 1,000 mg tab(s) (DEPAKOTE ER) 1,000 mg ORAL AT BEDTIME escitalopram oxalate 20 mg tab(s) (LEXAPRO) 20 mg ORAL AT BEDTIME lamoTRIgine 100 mg tab(s) (LaMICtal) 100 mg ORAL AT BEDTIME risperiDONE (RisperDAL) tab(s) 3 mg 3 mg ORAL AT BEDTIME NaCl 0.9% iv flush bag 20 mL INTRAVENOUS PRN vancomycin iv piggyback 1.25 g in D5W 250 mL (VANCOCIN) 0.015 g/kg/dose INTRAVENOUS q 12 HR vancomycin dosing and monitoring per pharmacy OTHER As Directed diphenhydrAMINE 50 mg injection (BENADRYL) 50 mg INTRAVENOUS q 6 H PRN polyethylene glycol 3350 17 g packet 17 g ORAL DAILY senna-docusate 8.6-50 mg 1 tablet (SENNA-S) 1 tablet ORAL BID bisacodyl 10 mg suppository (DULCOLAX) 10 mg RECTAL DAILY PRN oxyCODONE IR 5 mg tab(s) (ROXICODONE) 5 mg ORAL q 6 H PRN keTORolac 15 mg injection (Toradol) 15 mg INTRAVENOUS q 6 H PRN acetaminophen 1,000 mg tab(s) (TYLENOL) 1,000 mg ORAL q 6 H diphenhydrAMINE 50 mg injection (BENADRYL) 50 mg INTRAVENOUS ONCE Assessment and Plan: Active Hospital Problems Diagnosis Date Noted Acute mastitis 05/18/2025 Hepatic steatosis 05/19/2025 Cellulitis of chest wall 05/19/2025 Metabolic encephalopathy 05/19/2025 Obsessive-compulsive disorder, unspecified 05/18/2025 At (more content not included)... [facility] 05-19-2025 Note HNO ID: [id number] Author: SUAD ANGLIN MD Service: Hospital Medicine Author Type: Resident Type: Progress Notes Filed: 05/19/2025 16:26 Note Text: Attestation signed by Suad Anglin MD at 05/19/2025 4:26 PM Attending Note I evaluated the patient and personally participated in the guido components. I agree with the resident's findings and plan as documented and have discussed the case and management of the patient's care with the resident. Signature: Suad Anglin MD Staff Physician, [facility] Date: 05/19/2025 Time: 4:26 PM [facility] Internal Medicine Inpatient PROGRESS NOTE PATIENT NAME: Rosalva Huang SERVICE DATE: 05/19/2025 SERVICE TIME: 2:55 PM HOSPITAL DAY: 1 PRIMARY CARE PHYSICIAN: No primary care provider on file. CODE STATUS: Code Status: Full Code Days: [phone], please page Cherie Cunningham MD for patient issues either through [employer] or [employer]. Nights: [phone], please page [facility] night coverage pager [phone] for Team 1,2 AND3. Impression: Rosalva Huang is a35 year old female with past medical history of bipolar disorder, multiple antibiotic allergies, who presented to the ED with left nipple discharge in setting of mastitis post nipple piercing. INTERVAL HPI / Subjective: Today is day # 1, patient - Overnight Events: Admitted overnight - remains HDS still have purulent drainage from the nipple Physical Exam / Objective: BP 103/57 Pulse 73 Temp 36.4 ?C (97.5 ?F) (Oral) Resp 16 Ht 162.6 cm (5' 4") Wt 85.7 kg (189 lb) LMP (LMP Unknown) SpO2 98% BMI 32.44 kg/m? General Appearance: Well developed and Well nourished HEENT: PERRLA and EOM's intact Lungs: Clear Heart: Regular rate AND rhythm, No heaves, No lifts, and No thrills Abdomen: Soft, Firm, Round, and Non-tender Skin: Warm, Breast exam in presence of After School Counselor Nurse purulent drainage from right breast. Musculoskeletal: No deformities Neurologic/Psychiatric: Oriented to time, place AND person Intake/Output Summary (Last 24 hours) at 05/19/2025 1455 Last data filed at 05/19/2025 0904 Gross per 24 hour Intake 400 ml Output -- Net 400 ml Labs/Data: CBC: Recent Labs 05/19/25 0555 05/18/25 1540 05/17/25 0904 05/16/25 0637 05/15/25 0342 05/14/25 0510 05/13/25 0543 WBC 8.73 11.65* 8.30 9.43 6.35 6.94 8.55 HB 13.0 14.4 14.2 13.4 12.5 13.1 12.8 PLT 244 261 270 265 235 231 241 MCV 88.0 90.9 87.1 87.4 89.7 88.2 90.1 RDWCV 13.4 13.6 13.2 13.2 13.4 13.4 13.7 NEUTP -- 50.9 -- 77.8 -- -- -- ABSNEUT -- 5.93 -- 7.33 -- -- -- LYMPHP -- 38.2 -- 12.5 -- -- -- MONOP -- 7.8 -- 7.6 -- -- -- EODINP -- 0.5 -- 0.0 -- -- -- COAG: No results for input(s): "APTT", "INR" in the last 168 hours. BMP: Recent Labs 05/19/25 0555 05/18/25 1540 05/17/25 0904 05/16/25 0637 05/15/25 0342 05/14/25 0510 05/13/25 0543 GLUC 88 76 131* 120* 99 92 84 NA 142 140 137 136 140 140 141 K 3.9 3.8 4.7 -- 4.4 4.0 4.7 CHLOR 106 104 105 104 103 104 109* CO2 23 24 19* 19* 26 24 22 ANION 13 12 13 13 11 12 10 BUN 16 18 13 13 14 11 16 CREAT 0.68 0.74 0.52* 0.54* 0.78 0.83 0.85 CHEM: Recent Labs 05/19/25 0555 05/18/25 1540 05/17/25 0904 05/16/25 0637 05/15/25 0342 05/14/25 0510 05/13/25 0543 ALB 3.8* 4.4 4.2 4.0 3.7* -- -- TPROT 6.2* 7.2 7.1 6.9 6.0* -- -- CA 8.7 9.2 9.1 9.0 8.8 8.7 8.6 HEPATIC: Recent Labs 05/19/25 0555 05/18/25 1540 05/17/25 0904 05/16/25 0637 05/15/25 0342 ALKPHOS 100 111 112 -- 95 ALT 58* 68* 76* -- 39* AST 27 29 38* -- 21 TBILI 0.3 0.2 0.2 0.2 0.3 CARDIAC: No results for input(s): "CKTEST", "CKMB", "CKMBP", "TROPT", "PBNP" in the last 168 hours. URINALYSIS:No results for input(s): "PH", "SPGR", "UGLUC", "UBILI", "UKET", "UHB", "UPROT", "UROBIL", "UWBC", "SSA" in the last 168 hours. Invalid input(s): "NITR" Estimated Creatinine Clearance: 123.5 mL/min (based on SCr of 0.68 mg/dL). Medications: Current Facility-Administered Medications Medication Dose Route Frequency clonazePAM 1 mg tab(s) (KlonoPIN) 1 mg ORAL DAILY PRN divalproex ER 1,000 mg tab(s) (DEPAKOTE ER) 1,000 mg ORAL AT BEDTIME escitalopram oxalate 20 mg tab(s) (LEXAPRO) 20 mg ORAL AT BEDTIME lamoTRIgine 100 mg tab(s) (LaMICtal) 100 mg ORAL AT BEDTIME risperiDONE (RisperDAL) tab(s) 3 mg 3 mg ORAL AT BEDTIME NaCl 0.9% iv flush bag 20 mL INTRAVENOUS PRN vancomycin iv piggyback 1.25 g in D5W 250 mL (VANCOCIN) 0.015 g/kg/dose INTRAVENOUS q 12 HR vancomycin dosing and monitoring per pharmacy OTHER As Directed diphenhydrAMINE 50 mg injection (BENADRYL) 50 mg INTRAVENOUS q 6 H PRN polyethylene glycol 3350 17 g packet 17 g ORAL DAILY senna-docusate 8.6-50 mg 1 tablet (SENNA-S) 1 tablet ORAL BID bisacodyl 10 mg suppository (DULCOLAX) 10 mg RECTAL DAILY (more content not included)... [facility] 05-18-2025 Note [facility] 05-18-2025 History of Present illness Narrative Radiology Service Progress Note PATIENT NAME: Rosalva Huang DATE OF SERVICE: May 18, 2025 TIME: 4:12 PM PATIENT IDENTITY VERIFICATION COMPLETED USING TWO (2) IDENTIFIERS: Name and Date of confirmed by patient verbally. FALL SCREENING: Has the patient had 2 falls in the last year or 1 fall with injury or currently using an Ambulatory Assistive Device (Walker, Cane, Wheelchair, Crutches, etc.)? Emergency Room Patient: Screened in ED PATIENT GENDER DATA: Assigned female at . status: : No status: N/A PATIENT RELEVANT IMPLANT DATA REVIEWED: Not Applicable PATIENT PRESENTS WITH AN IMPLANTABLE OR ATTACHED RECREATIONAL LEADER: N/A RADIOLOGY DEPARTMENT: Ultrasound PERIPHERAL IV DATA: Not applicable SIGNED BY: Kathy Perdomo RDMS, RVBhavana May 18, 2025 4:12 PM documented in this encounter [facility] 05-18-2025 Telephone encounter Note 35 yo F with PMH NIKKIE, PTSD, OCD, Bipolar I and multiple allergies who presented to the ER with breast concern, per their workup and exam there is concern for mastitis. Being tx for further workup and management. Bethany Lee MD [facility] 05-18-2025 Miscellaneous Notes 35 yo F with PMH NIKKIE, PTSD, OCD, Bipolar I and multiple allergies who presented to the ER with breast concern, per their workup and exam there is concern for mastitis. Being tx for further workup and management. Bethany Lee MD documented in this encounter [facility] 05-18-2025 Nurse Note Manager Endoscopy left message for call back. Electronically signed by Sivakumar Diaz [facility] at 05/18/2025 6:50 AM PDT documented in this encounter [employer] Phone: 05-18-2025 Nurse Note Manager Endoscopy reached out to Rosalva to set up appointment and she stated that she is in the hospital. Manager Endoscopy mentioned to call magnetic tape typewriter operator when out to schedule in person appointment. Electronically signed by Sivakumar Diaz [facility] at 05/18/2025 6:48 AM PDT documented in this encounter [employer] Phone: 05-18-2025 Nurse Note Manager Endoscopy left voice message for call back. documented in this encounter [employer] Phone: 05-17-2025 Note HNO ID: [id number] Author: WANDA HAWTHORNE RN Service: Care Management Author Type: Registered Nurse Type: Care Mgt Progress Note Filed: 05/18/2025 07:52 Note Text: Summary: High Risk Readmission CARE MANAGEMENT DISCHARGE NOTE SERVICE DATE: May 18, 2025 SERVICE TIME: 7:43 AM Admission Date: 05/11/2025 LOS: 4 days Discharge Arrangement Discharge Arrangement: Home with Relative, Home with Self Care Services Arranged Medical Services: Other: See Comment (Home self care) Provider Name: Pt to [facility] with [facility] on 05/30/2025 Caregiver Assessment Caregiver is ready, willing and able to meet the patient's needs as recommended by the inter-professional team: No Caregiver needed Transportation Arrangements Transportation Arrangements: Other: See Comment (pt left after CM left, per nursing progress note pt was seen making arrangements for an Uber after DC instructions provied, when she re entered the roopm pt was gone, left AVS on bedside table as well as phone hogshead salvage and black leggings.) Date of Trip: 05/17/25 Destination: [place] Handoff Communication: Handoff to: Other Caregiver Other Caregiver Name/Phone: MUSE to care team (Pt to [facility] with PCP) Pt DC on 05/17 after this CM had left for the day. She was medically cleared to DC home. She had no skilled needs for DC. An appt was set up with her to establish with [facility] on 05/30/2025. An order was also placed in [facility] for her to follow up with allergic after DC. She arranged her transportation home. Per nursing note, she was given her DC instructions and verbalized understanding, when RN re entered her room she had left, AVS on bedside table and also noted to have left a phone hogshead salvage and black leggings. The AVS was being mailed to her home address. HIGH RISK READMISSION NOTE: HAS PATIENT BEEN READMITTED WITHIN THE PAST 7 DAYS?: No 30-DAY READMISSION RISK (%) of 40 OR ABOVE?: Yes READMISSION SCORE: 56 SDOH QUESTIONS REVIEWED WITH PATIENT?: Yes DATE OF LAST ADMISSION: 03/07- PT STATED REASON FOR ADMISSION: drainage from breast PATIENT GOALS:get rid of infection INTERVENTIONS IMPLEMENTED TO PREVENT READMISSION: Pt completed IV ATB course with close follow up with ID. Pt had an appt scheduled to establish with PCP DC follow up with statistical geneticist order was placed in [facility] PCP OR F/U VISIT ARRANGED ? IF YES, DATE AND PROVIDER: Yes Friday May 30, 2025 2:20 PM Office Visit with Nidhi Kennedy MD [facility] [place] Order placed in [facility] to follow up with statistical geneticist; POS team to assist DISCHARGE PLAN:Home with family and children, no skilled needs at DC SIGNATURE: Wanda Hawthorne, RN PATIENT NAME: Rosalva Huang DATE: May 18, 2025 TIME: 7:43 AM [facility] 05-17-2025 Note HNO ID: [id number] Author: WANDA HAWTHORNE RN Service: Care Management Author Type: Registered Nurse Type: Care Mgt Progress Note Filed: 05/17/2025 11:12 Note Text: CARE MANAGEMENT PROGRESS NOTE SERVICE DATE: 05/17/2025 SERVICE TIME: 11:05 AM LOS: 4 days Needs Prior to Discharge: To Be Determined, Discharge Prescriptions, Other: See Comment (Medical clearance) Discharge Plan: Home with no skilled needs Needs: Script as per medical team/ID and None DME: None Tests/Procedures: None Transportation: Car Other Concerns: Reviewed epic. Pt has ATB allergies, most recently had reaction to meropenum, has since been DC'd. Received vancomycin today, had rash reaction, received benadryl, pepcid and solumedrol. ID following closely. Pt is independent in her room, on RA. Pt has no skilled needs for DC. She has been scheduled: Friday May 30, 2025 2:20 PM Office Visit with Nidhi Kennedy MD [facility] [place] ID recommends pt follow up with can doffer/statistical geneticist after DC, will need order placed in epic. SIGNATURE: Wanda Hawthorne RN PATIENT NAME: Rosalva Huang DATE: May 17, 2025 TIME: 11:05 AM [facility] 05-16-2025 History of Present illness Narrative Associated Problem(s): Obsessive-compulsive disorder, unspecified Good response to lexapro in combination with Risperdal. Continue both at current doses. Has refills to last until next appt so not orderedt tana. Associated Problem(s): Generalized anxiety disorder with panic attacks Continue hydroxyzine for now but may alternate with Benadryl. Do not exceed 100 mg daily dose of Benadryl and DO NOT take concurrently with hydroxyzine. No refills ordered today since meds were just prescribed last week. Associated Problem(s): Bipolar disorder, rapid cycling ([facility]) Reduce lamotrigine (d/t reduced clearance when used concurrently with depakote) to 100 mg daily and add depakote ER 500 mg po qhs for mood stability/rapid cycling. Plan to check VPA level in 10-14 days. Orders: RN NURSING PER 15 MIN [[id number]] lamoTRIgine (LAMICTAL) 100 mg tablet; Take 1 Tablet by mouth once daily. Subjective Chief Complaint: Psychiatric Med Management HPI Rosalva Huang is a 35 year old female with h/o bipolar disorder and NIKKIE, presenting for f/u visit. 05/01/25: (today): Pt endorses symptoms of feeling increased energy/hyper and irritable. Hydroxyzine didn't help with panic attacks after she tried taking the higher dose the first time. She tolerated it without adverse effect, however. Discussed pt's report of having a lot more mood swings lately. Sometimes will have mood swings with mood states that last one day at a time, sometimes moods change throughout the course of a day and sometimes moods last several days. When she is feeling "manic" notices she talks a lot and is able to clean the house and do several tasks at the same time. She reports mood will be elevated at those times and she seem to have less panic attacks. Reviewed symptoms with pt and she agrees symptoms are consistent with hypomania. No grandiosity/risk-taking behaviors but does feel invinceable and like she can take on multiple things without feeling fatigued, talks faster than usual, etc. 04/24/25: Pt reports she has been more anxious. Having panic attacks daily. She gets breathless and heart races. More anxious and reports some increased irritability. She has been more short-tempered lately with the kids screaming all the time. She understands that they are adjusting to the change with her and being separate. She finds that taking a low dose of Risperdal has been helpful for mood stability and when she has taken it for agitation. Lexapro has helped with intrusive thoughts/obsessions quite a bit, together with the Risperdal. Pt reports klonopin does nothing and had a similar lack of response to Ativan. Both worked initially for a couple of occasions but then no effect after that. Would like to revisit trial of hydroxyzine since she states she wasn't on the lexapro (or at least not on current dosage) when she last tried it and would like to avoid medication that can be habit-forming. Having trouble sleeping at night sometimes. Denies depressed mood, denies manic/mixed mood symptoms, denies psychotic symptoms and denies SI/HI. Reports medication compliance and denies side effects though she has gained weight in the past few months. She lives with her aunt Zeynep. Weekend she brings kids for visits with ex-partner, they are still but no recent conflicts noted. She hasn't been drinking alcohol as often recently. She had two glasses of wine with a friend on two different occasions. 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 She reports no current desire to drink excessively, and denies misuse of prescription klonopin. States she still has most of the bottle left since she stopped taking it after it was ineffective the last 2 times she tried it. Recently was seen at urgent care and dx'd with BV. On Flagyl course and is taking PRN benadryl (denies using in high quantities) for any hives/itching given her recent h/o antibiotic allergic reactions. Interim substance use history: Social History Substance and Sexual Activity Drug Use Not Currently Types: Opioids, Marijuana Comment: When she was 17 she had a problem with marijuana and prescription drug abuse (snorted Xanax and abused pain pills) and she got in trouble at 17 and at 18 she stopped Tobacco History Tobacco Use Smoking Status Never Smokeless Tobacco Never Social History Substance and Sexual Activity Alcohol Use Not Currently Comment: 2 months ago 01/30/25: Copied forward from [facility] (Dec admission): ALLERGIES Allergen Reactions Clindamycin Hives Diffuse hives and angioedema of upper lip within 30 minutes of receiving 1st dose. Doxycycline Hives Diffuse hives 30 minutes after 1st dose. Diffuse hives and x1 episode of emesis 30 minutes after 2nd dose. Fluconazole Rash Required IV diphenhydramine 01/06/2025 Onion GI Upset Vancomycin Itching Flushing and pruritus consistent with vancomycin infusion reaction. Please refer to Allergy note from 01/05/2025 for details. Adhesive Tape (Rita* Rash, Itching Patient reports unable to tolerate band-aids after a procedure. She noted redness and itching at site of band aid. Mosquitos Swelling Phenergan [Prometha* GI Upset Sunscreen Rash Tingle tanning lotion Zyrtec [Cetirizine * Hives, Other: See Comments Hives and palpitations within 30 minutes of 1st dose. Tolerates Benadryl without issue. No contraindication to trying other antihistamines such as Arthur or Claritin Meds: Outpatient Medications Prior to Visit Medication Sig Dispense Refill escitalopram (LEXAPRO) 20 mg tablet Take 1 Tablet by mouth once daily. 30 Tablet 1 hydrOXYzine HCL (ATARAX) 25 mg tablet Take 1 Tablet by mouth 3 (three) times daily as needed for anxiety. 90 Tablet 0 metroNIDAZOLE (FLAGYL) 500 mg tablet Take 500 mg by mouth twice a day. ondansetron ODT (ZOFRAN-ODT) 4 mg disintegrating tablet TAKE 1 TABLET BY MOUTH EVERY 6 HOURS NEEDED FOR NAUSEA AND VOMITING FOR UP TO 7 DAYS risperiDONE (RISPERDAL) 0.5 mg tablet Take 1 Tablet by mouth once daily as needed for other reason (agitation). 30 Tablet 1 risperiDONE (RISPERDAL) 3 mg tablet Take 1 Tablet by mouth 2 (two) times daily. 30 Tablet 1 lamoTRIgine (LAMICTAL) 200 mg tablet Take 1 Tablet by mouth once daily. 30 Tablet 1 ACNE MEDICATION 5 % EPINEPHrine (EPIPEN) 0.3 mg/0.3 mL pen injector Inject 0.3 mg into the muscle hydrocortisone 2.5 % cream ubrogepant (UBRELVY) 100 mg tab Take 100 mg by mouth onabotulinumtoxinA (BOTOX) 200 unit solr injection Inject 200 Units into the skin Every 12 Weeks methylcellulose, laxative, (CITRUCEL) 500 mg tab tab Take 1,000 mg by mouth every 8 (eight) hours as needed rimegepant (NURTEC ODT) 75 mg TbDi Take 75 mg by mouth acetaminophen (TYLENOL) 500 mg tablet No facility-administered medications prior to visit. Objective 04/24/2025 9:36 AM BP 118/76 Pulse 99 Weight 191 lb (86.6 kg) % Change in weight 20.9 Height 5' 4" (162.6 cm) Estimated body mass index is 32.79 kg/m as calculated from the following: Height as of 04/24/25: 5' 4" (1.626 m). Weight as of 04/24/25: 191 lb (86.6 kg). Mental Status Exam Appearance is appropriate for circumstance and neat. as able to visualize on videoconference General Health is generally good. as able to visualize on videoconference Eye Contact is good. as able to visualize on video Motor Activity is unremarkable. as able to visualize on video Speech is unremarkable. Affect is full range and mood-congruent. Reported Mood is neutral/euthymic. Thought Content has obsessions does not have suicidal ideations and does not have homicidal ideations. intrusive/obsessions are greatly reduced Thought Process is unremarkable, is goal-directed and is linear. Perception is unremarkable. Attention is alert. Demeanor is appropriate for situation and cooperative. Insight is appropriate. Judgement is appropriate. Orientation is fully oriented. Memory is grossly intact and not formally tested. Data Reviewed (labs, BASIS-24, AIMS, outside records, etc): Reviewed labs from February and Mar, 2025 in Care Everywhere (CMP, CBC most notably). Lab Results Component Value Date CHOL 203 (H) 04/24/2025 LDL 117 (H) 04/24/2025 HDL 72 04/24/2025 TRIGLYC 81 04/24/2025 HGBA1C 5.1 04/24/2025 CREATININE 0.83 05/14/2025 EGFR 95 05/14/2025 No results found for: "VALPROIC" BASIS-24 Clinical Severity - Most Recent Administration Date Administered: 04/24/2025 Domain Subscore & Severity Depression/Functioning 0.48 - Low Interpersonal Relationships 2.68 - High Self-Harm 0 - Low Emotional Lability 1 - Moderate Psychosis 0 - Low Alcohol/Drug Use 0 - Low BASIS-24 Overall Score 0.75 - Low Reference: BASIS-24 Behavior and Symptom Identification Scale: Clinical Cut Scores. Jama Patel (2018). Last Menstrual Period: Assessment Safety Risk Assessment: Acute risk for harm to self/others: Low Chronic risk for harm to self/others: Low No SI/intent/plan. No thoughts of hurting others/HI. No access to weapons. Assessment & Plan Bipolar disorder, rapid cycling ([facility]) Reduce lamotrigine (d/t reduced clearance when used concurrently with depakote) to 100 mg daily and add depakote ER 500 mg po qhs for mood stability/rapid cycling. Plan to check VPA level in 10-14 days. Orders: RN NURSING PER 15 MIN [[id number]] lamoTRIgine (LAMICTAL) 100 mg tablet; Take 1 Tablet by mouth once daily. Obsessive-compulsive disorder, unspecified type Good response to lexapro in combination with Risperdal. Continue both at current doses. Has refills to last until next appt so not orderedt tana. Generalized anxiety disorder with panic attacks Continue hydroxyzine for now but may alternate with Benadryl. Do not exceed 100 mg daily dose of Benadryl and DO NOT take concurrently with hydroxyzine. No refills ordered today since meds were just prescribed last week. Plan Risks, benefits, and alternatives were discussed. Patient/guardian understood and agreed with the plan. Reviewed Safety Plan: Call 911 or go to ED if in crisis. Advised of availability of after hours RN by calling main number for [facility]. Follow-up: No follow-ups on file. Upcoming Appointments: Appointments for the next 13 months 05/23/2025 1:00 PM COUNSELING STANDARD [facility] VASQUEZ Whaley 45 min 05/29/2025 12:20 PM MEDICATION MANAGEMENT [facility] Tessa Dill RN 20 min 05/29/2025 12:40 PM MEDICATION MANAGEMENT [facility] Herberth Montana DO 20 min Reason for visit: Psychiatric Med Management Rosalva presents prior to their psychiatry provider visit to evaluate medication effectiveness, update medical history, and review overall treatment status. Video conference visit ([email or web address]). Patient identity confirmed via name and date of . Potential risks and benefits discussed with patient/guardian, who verbalized consent for telehealth encounter. Patient location: home. Subjective Interval history and patient concerns: Client reports she has been rapid cycling since last week. Currently hypomanic. Reports she took 2 benadryls to go to sleep. Denies thoughts of self harm or harming others. Reports she felt depressed yesterday. Intrusive thoughts are fine, and not having them. Sleep is variable. Denies hallucinations or delusional thoughts. Hydroxyzine not helping anxiety anymore. Anxiety is high. Current Outpatient Medications Medication Instructions acetaminophen (TYLENOL) 500 mg tablet No dose, route, or frequency recorded. ACNE MEDICATION 5 % CitruceL 1,000 mg, Every 8 hours PRN EPINEPHrine (EPIPEN) 0.3 mg escitalopram (LEXAPRO) 20 mg, oral, Daily hydrocortisone 2.5 % cream hydrOXYzine HCL (ATARAX) 25 mg, oral, 3 times daily PRN lamoTRIgine (LAMICTAL) 200 mg, oral, Daily metroNIDAZOLE (FLAGYL) 500 mg, 2 times daily Nurtec ODT 75 mg onabotulinumtoxinA (BOTOX) 200 Units, EVERY 12 Weeks ondansetron ODT (ZOFRAN-ODT) 4 mg disintegrating tablet TAKE 1 TABLET BY MOUTH EVERY 6 HOURS NEEDED FOR NAUSEA AND VOMITING FOR UP TO 7 DAYS risperiDONE (RISPERDAL) 0.5 mg, oral, Daily PRN risperiDONE (RISPERDAL) 3 mg, oral, 2 times daily Ubrelvy 100 mg Reported medication adherence: yes Reported medication side effects: weight gain New medical problems or history: denies Objective Vitals not currently . Mental Status Exam: Behavior: generally relaxed and engaged, cooperative Speech: unremarkable Mood: neutral Affect: appropriate for circumstance Thought content: unremarkable Perception: unremarkable Additional objective data: BASIS-24 Clinical Severity - Most Recent Administration Date Administered: 04/24/2025 Domain Subscore & Severity Depression/Functioning 0.48 - Low Interpersonal Relationships 2.68 - High Self-Harm 0 - Low Emotional Lability 1 - Moderate Psychosis 0 - Low Alcohol/Drug Use 0 - Low BASIS-24 Overall Score 0.75 - Low Reference: BASIS-24 Behavior and Symptom Identification Scale: Clinical Cut Scores. Jama Patel (2018). BASIS-24 results were not reviewed. Assessment Provider diagnosis and treatment plan reviewed. F31.70 Bipolar disorder in full remission, most recent episode unspecified type ([facility]) (primary encounter diagnosis) Comment: Risk Assessment: Acute risk for harm to self/others: Low Plan Verified patient medications and allergies; updated patient medical history in medical record. Provided report to Dr. Montana regarding patient concerns and status. Follow up as scheduled Upcoming appointments: Appointments for the next 13 months 05/01/2025 9:00 AM MEDICATION MANAGEMENT [facility] Herberth Montana DO 20 min 05/11/2025 10:20 AM NURSE VISIT SHORT [facility] Tessa Dill RN 20 min 05/29/2025 12:20 PM MEDICATION MANAGEMENT [facility] Tessa Dill RN 20 min 05/29/2025 12:40 PM MEDICATION MANAGEMENT [facility] Herberth Montana DO 20 min documented in this encounter [facility] Work Phone: 05-16-2025 Note HNO ID: [id number] Author: SUAD ANGLIN MD Service: Hospital Medicine Author Type: Resident Type: Progress Notes Filed: 05/16/2025 15:53 Note Text: Attestation signed by Suad Anglin MD at 05/16/2025 3:53 PM Attending Note I evaluated the patient and personally participated in the guido components. I agree with the resident's findings and plan as documented and have discussed the case and management of the patient's care with the resident. Signature: Suad Anglin MD Staff Physician, [facility] Date: 05/16/2025 Time: 3:53 PM DEPARTMENT OF [facility] MEDICINE PROGRESS NOTE SERVICE DATE: 05/16/2025 SERVICE TIME: 8:38 AM Hospital Medicine/Primary Attending: Suad Anglin MD NIGHT AND WEEKEND COVERAGE: [place] COVERAGE:TEAM 1-3: [id number], please secure chat or page Suad Anglin MD For patient issues. Nights [phone], please page [facility] Night Coverage pager ([phone]). Subjective INTERVAL HPI: No major overnight events. HDS sat 94% on RA No fever overnight, with no anitpyretics Bcx NG x 4 Morning labs unremarkable Patient still c/o of bilateral breast pain and purulent discharge. Patient examined with Yuval, RN present at bedside. On 05/15 patient have a anaphylactic reaction post daptomycin on day 4, with angioedema and difficulty swelling with lip and throat with difficulty swelling MEDICATIONS: Reviewed Objective PHYSICAL EXAM: BP 113/63 Pulse 80 Temp (Src) 97.7 (Oral) Resp 16 Ht 5' 4" (1.63m) Wt 195 lb (88.5kg) SpO2 95% BMI 33.46 kg/(m2). O2 Therapy: Room Air Physical Exam Performed GENERAL: Alert, no distress, cooperative HEAD/SINUSES: No significant findings OROPHARYNX: Lips, mucosa, and tongue normal. Teeth and gums normal. Oropharynx normal. LUNGS: Lungs clear to auscultation, Good diaphragmatic excursion CARDIAC: Normal S1 and S2; no rubs, murmurs, or gallops ABDOMEN: Abdomen soft, non-tender, BS normal, No masses or organomegaly EXTREMITIES: Extremities normal, no deformities, edema, clubbing or skin discoloration. Good capillary refill. NEURO: Grossly normal cognition, motor function, and cranial nerves III-XII PULSES: 2+ radial Lines, Drains, and Airways Line Duration Peripheral 05/13/21 2335 [facility] Long Left Forearm 22 Gauge 1463 days DATA: Diagnostic tests reviewed for today's visit: Most recent labs and imaging results. Assessment/Plan Rosalva Huang is a35 year old female with past medical history of bipolar disorder, multiple antibiotic allergies, who presented to the ED with left nipple discharge in setting of mastitis post nipple piercing. # Acute mastitis and Cellulitis: Patient with bilateral warmth, erythema, proximal streaking and nipple discharge to both breasts Patient given vancomycin with Benadryl and had mild allergic/itching reaction to it. Hx of anaphylactic allergy to cephalosporin-Keflex, other allergies include clindamycin, doxycycline, Bactrim and severe red man syndrome for vancomycin Left breast US with no abscess noted On 05/15 patient have a anaphylactic reaction post daptomycin on day 4, with angioedema and difficulty swelling with lip and throat with difficulty swelling ID following - will hold Daptomycin and meropenem for today for further ID assessment BCx NG till date Wound cultures: Rare Gram positive cocci, with skin nia Pain management OK to d/s after completing 7 days of meropenem (day 5 today) # Transaminitis: Pt asymptomatic and without hx of etoh use RUQ US noted hepatic steatosis Hep panel negative Continue to monitor Can be due to metabolic syndrome leading to hepatic steatosis outpatient follow-up with PCP metabolic syndrome education # Bipolar depression Continue with home medications including Depakote, Lexapro, Lamictal and risperidone. DVT Ppx: Lovenox Diet: regular Exogenous Class 1 Obesity Medication and Non-Pharmacologic VTE Prophylaxis/Anticoagulants Anticoagulant AND Antiplatelet Medications (From admission, onward) Start Dose Route Frequency Last Action Ordered Stop 05/14/25 193 enoxaparin 40 mg injection (LOVENOX) (enoxaparin injection (LOVENOX)) 40 mg SQ EVERY 24 HOURS Given, 05/15 181105/14/25 190 -- 05/13/25 0915 pneumatic compression sleeve(s) ([place], [place]) 05/11/25 2230 activity - mobilize patient ([place], [place]) VTE Prophylaxis: VTE prophylaxis appropriate Disposition: To be determined Plan of care discussed with: Provider, RN, Patient SIGNATURE: Cherie Cunningham MD PATIENT NAME: Rosalva Huang DATE: May 16, 2025 TIME: 8:40 AM etx [id number] [facility] 05-15-2025 Note HNO ID: [id number] Author: WANDA HAWTHORNE RN Service: Care Management Author Type: Registered Nurse Type: Care Mgt Progress Note Filed: 05/15/2025 10:56 Note Text: CARE MANAGEMENT PROGRESS NOTE SERVICE DATE: 05/15/2025 SERVICE TIME: 10:52 AM LOS: 2 days Needs Prior to Discharge: Discharge Prescriptions, To Be Determined Discharge Plan: Home with no skilled needs Needs: None DME: None Tests/Procedures: None Transportation: Car Other Concerns: Reviewed epic. Updated by bedside RN. Met with pt at bedside for CM follow up. ID following>to complete IV ATB course on 05/16. Pt updated that DC follow up PCP order has been placed in [facility] to assist her in establishing with a PCP upon DC. She is agreeable to [facility] [provider or [facility]. Plan: Anticipate home with no skilled needs at DC. Pt will have transport home at DC. SIGNATURE: Wanda Hawthorne RN PATIENT NAME: Rosalva Huang DATE: May 15, 2025 TIME: 10:52 AM [facility] 05-15-2025 History of Present illness Narrative Missed scheduled RN visit. Client hospitalized for mastitis. and My Chart message sent documented in this encounter [facility] [employer] [facility] [employer] Work Phone: 05-15-2025 Note HNO ID: [id number] Author: SUAD ANGLIN MD Service: Hospital Medicine Author Type: Resident Type: Progress Notes Filed: 05/15/2025 17:30 Note Text: Attestation signed by Suad Anglin MD at 05/15/2025 5:30 PM Attending Note I evaluated the patient and personally participated in the guido components. I agree with the resident's findings and plan as documented and have discussed the case and management of the patient's care with the resident. Signature: Suad Anlgin MD Staff Physician, [facility] Date: 05/15/2025 Time: 5:30 PM DEPARTMENT OF HOSPITAL MEDICINE PROGRESS NOTE SERVICE DATE: 05/15/2025 SERVICE TIME: 8:38 AM Hospital Medicine/Primary Attending: Suad Anglin MD NIGHT AND WEEKEND COVERAGE: [place] COVERAGE:TEAM 1-3: [phone], please secure chat or page Suad Anglin MD For patient issues. Nights [phone], please page [facility] Night Coverage pager ([phone]). Subjective INTERVAL HPI: No major overnight events. HDS sat 94% on RA No fever overnight, with no anitpyretics Bcx NG x 3 Morning labs unremarkable Patient still c/o of bilateral breast pain and purulent discharge. Patient examined with MIRNA Barakat present at bedside. MEDICATIONS: Reviewed Objective PHYSICAL EXAM: BP 100/62 Pulse 72 Temp (Src) 97.9 (Oral) Resp 16 Ht 5' 4" (1.63m) Wt 195 lb (88.5kg) SpO2 94% BMI 33.46 kg/(m2). O2 Therapy: Room Air Physical Exam Performed GENERAL: Alert, no distress, cooperative HEAD/SINUSES: No significant findings OROPHARYNX: Lips, mucosa, and tongue normal. Teeth and gums normal. Oropharynx normal. LUNGS: Lungs clear to auscultation, Good diaphragmatic excursion CARDIAC: Normal S1 and S2; no rubs, murmurs, or gallops ABDOMEN: Abdomen soft, non-tender, BS normal, No masses or organomegaly EXTREMITIES: Extremities normal, no deformities, edema, clubbing or skin discoloration. Good capillary refill. NEURO: Grossly normal cognition, motor function, and cranial nerves III-XII PULSES: 2+ radial Lines, Drains, and Airways Line Duration Peripheral 05/13/21 2335 [facility] Long Left Forearm 22 Gauge 1462 days DATA: Diagnostic tests reviewed for today's visit: Most recent labs and imaging results. Assessment/Plan Rosalva Huang is a35 year old female with past medical history of bipolar disorder, multiple antibiotic allergies, who presented to the ED with left nipple discharge in setting of mastitis post nipple piercing. # Acute mastitis and Cellulitis: Patient with bilateral warmth, erythema, proximal streaking and nipple discharge to both breasts Patient given vancomycin with Benadryl and had mild allergic/itching reaction to it. Hx of anaphylactic allergy to cephalosporin-Keflex, other allergies include clindamycin, doxycycline, Bactrim and severe red man syndrome for vancomycin Left breast US with no abscess noted On 05/15 patient have a anaphylactic reaction post daptomycin on day 4, with angioedema and difficulty swelling with lip and throat with difficulty swelling ID following - will hold Daptomycin and meropenem for today for further ID assessment BCx NG till date Wound cultures: Rare Gram positive cocci, with skin nia Pain management # Transaminitis: Pt asymptomatic and without hx of etoh use RUQ US noted hepatic steatosis Hep panel negative Continue to monitor Can be due to metabolic syndrome leading to hepatic steatosis outpatient follow-up with PCP metabolic syndrome education # Bipolar depression Continue with home medications including Depakote, Lexapro, Lamictal and risperidone. DVT Ppx: Lovenox Diet: regular Exogenous Class 1 Obesity Medication and Non-Pharmacologic VTE Prophylaxis/Anticoagulants Anticoagulant AND Antiplatelet Medications (From admission, onward) Start Dose Route Frequency Last Action Ordered Stop 05/14/25 1930 enoxaparin 40 mg injection (LOVENOX) (enoxaparin injection (LOVENOX)) 40 mg SQ EVERY 24 HOURS Ordered 05/14/25 1901 -- 05/13/25 0915 pneumatic compression sleeve(s) ([place]) 05/11/25 2230 activity - mobilize patient ([place], [place]) VTE Prophylaxis: VTE prophylaxis appropriate Disposition: To be determined Plan of care discussed with: Provider, RN, Patient SIGNATURE: Cherie Cunningham MD PATIENT NAME: Rosalva Huang DATE: May 15, 2025 TIME: 8:40 AM etx [id number] [facility] 05-14-2025 Note HNO ID: [id number] Author: SUAD ANGLIN MD Service: Hospital Medicine Author Type: Physician Type: Progress Notes Filed: 05/14/2025 19:02 Note Text: DEPARTMENT OF HOSPITAL MEDICINE PROGRESS NOTE SERVICE DATE: 05/14/2025 SERVICE TIME: 8:40 AM Hospital Medicine/Primary Attending: Suad Anglin MD NIGHT AND WEEKEND COVERAGE: [place] COVERAGE:TEAM 1-3: [id number], please secure chat or page Suad Anglin MD For patient issues. Nights [phone], please page [facility] Night Coverage pager ([phone]). Subjective INTERVAL HPI: No major overnight events. Patient still c/o of bilateral breast pain and purulent discharge. Patient examined with Nolan Chaves RN present at bedside. MEDICATIONS: Reviewed Objective PHYSICAL EXAM: BP 107/63 Pulse 78 Temp (Src) 97.9 (Oral) Resp 16 Ht 5' 4" (1.63m) Wt 195 lb (88.5kg) SpO2 93% BMI 33.46 kg/(m2). O2 Therapy: Room Air Physical Exam Performed GENERAL: Alert, no distress, cooperative HEAD/SINUSES: No significant findings OROPHARYNX: Lips, mucosa, and tongue normal. Teeth and gums normal. Oropharynx normal. LUNGS: Lungs clear to auscultation, Good diaphragmatic excursion CARDIAC: Normal S1 and S2; no rubs, murmurs, or gallops ABDOMEN: Abdomen soft, non-tender, BS normal, No masses or organomegaly EXTREMITIES: Extremities normal, no deformities, edema, clubbing or skin discoloration. Good capillary refill. NEURO: Grossly normal cognition, motor function, and cranial nerves III-XII PULSES: 2+ radial Lines, Drains, and Airways Line Duration Peripheral 05/13/21 2335 [facility] Long Left Forearm 22 Gauge 1461 days DATA: Diagnostic tests reviewed for today's visit: Most recent labs and imaging results. Assessment/Plan Rosalva Huang is a35 year old female with past medical history of bipolar disorder, multiple antibiotic allergies, who presented to the ED with left nipple discharge in setting of mastitis post nipple piercing. # Acute mastitis and Cellulitis: Patient with bilateral warmth, erythema, proximal streaking and nipple discharge to both breasts Patient given vancomycin with Benadryl and had mild allergic/itching reaction to it. Hx of anaphylactic allergy to cephalosporin-Keflex, other allergies include clindamycin, doxycycline, Bactrim and severe red man syndrome for vancomycin Left breast US with no abscess noted ID following - IV Dapto/Virgen for now Awaiting wound cultures Pain management # Transaminitis: Pt asymptomatic and without hx of etoh use RUQ US noted hepatic steatosis Hep panel negative Continue to monitor Can be due to metabolic syndrome leading to hepatic steatosis outpatient follow-up with PCP metabolic syndrome education # Bipolar depression continue with home medications including Depakote, Lexapro, Lamictal and risperidone. DVT Ppx: Lovenox Diet: regular Exogenous Class 1 Obesity Medication and Non-Pharmacologic VTE Prophylaxis/Anticoagulants 05/13/25 0915 pneumatic compression sleeve(s) ([place], [place]) 05/11/25 2230 activity - mobilize patient ([place]) VTE Prophylaxis: VTE prophylaxis appropriate Disposition: To be determined Plan of care discussed with: Provider, RN, Patient SIGNATURE: Suad Anglin MD PATIENT NAME: Rosalva Huang DATE: May 14, 2025 TIME: 8:40 AM etx [id number] [facility] 05-13-2025 Note HNO ID: [id number] Author: SUAD ANGLIN MD Service: Hospital Medicine Author Type: Resident Type: Progress Notes Filed: 05/13/2025 19:01 Note Text: Attestation signed by Suad Anglin MD at 05/13/2025 7:01 PM Attending Note I evaluated the patient and personally participated in the guido components. I agree with the resident's findings and plan as documented and have discussed the case and management of the patient's care with the resident. Signature: Suad Anglin MD Staff Physician, [facility] Date: 05/13/2025 Time: 7:00 PM [facility] Internal Medicine Inpatient PROGRESS NOTE PATIENT NAME: Rosalva Huang SERVICE DATE: 05/13/2025 SERVICE TIME: 8:53 AM HOSPITAL DAY: 0 PRIMARY CARE PHYSICIAN: No primary care provider on file. CODE STATUS: Code Status: Full Code Days: [phone], please page Cherie Cunningham MD for patient issues either through [employer] or [employer]. Nights: [phone], please page [facility] night coverage pager [phone] for Team 1,2 AND3. Impression: Rosalva Huang is a35 year old female with past medical history of bipolar disorder, multiple antibiotic allergies, who presented to the ED with left nipple discharge in setting of mastitis post nipple piercing. h/o nipple piercing done in September which was complicated by infection in December for which she was treated with multiple antibiotics. INTERVAL HPI / Subjective: Today is day # 0, patient - Overnight Events: NAEO - Heme hemodynamically stable saturating 96% on room air - No fever overnight received Tylenol - Wound cultures in process - Blood cultures no growth day 1, hepatic panel unremarkable -Morning labs both CBC and BMP unremarkable Physical Exam / Objective: BP 110/65 Pulse 65 Temp 36.4 ?C (97.5 ?F) (Oral) Resp 16 Ht 162.6 cm (5' 4") Wt 88.5 kg (195 lb) LMP (LMP Unknown) SpO2 96% BMI 33.47 kg/m? General Appearance: Well developed and Obese HEENT: PERRLA and Sclera Lungs: Clear and Decreased breath sounds Heart: Regular rate AND rhythm, No heaves, No lifts, and No thrills Abdomen: Soft, Round, and Non-tender Skin: Warm Musculoskeletal: Breast exam remarkable for purulent bloody drainage from BL nipples with piercing removed piercing by Dr Anglin at bedside with nurse Neurologic/Psychiatric: Oriented to time, place AND person and No gross focal neurologic deficits Intake/Output Summary (Last 24 hours) at 05/13/2025 0853 Last data filed at 05/12/2025 1730 Gross per 24 hour Intake 1420 ml Output -- Net 1420 ml Labs/Data: CBC: Recent Labs 05/13/2554205/12/2543005/11/25 1606 WBC 8.55 5.90 7.53 HB 12.8 13.9 14.7 PLT 241 263 281 MCV 90.1 87.0 89.5 RDWCV 13.7 13.2 13.5 NEUTP -- -- 59.3 ABSNEUT -- -- 4.47 LYMPHP -- -- 31.5 MONOP -- -- 6.5 EODINP -- -- 0.9 COAG: No results for input(s): "APTT", "INR" in the last 168 hours. BMP: Recent Labs 05/13/25 0505/12/25 04305/11/25 1606 GLUC 84 170* 90 NA 141 140 137 K 4.7 4.4 3.9 CHLOR 109* 109* 100 CO2 22 20* 24 ANION 10 11 13 BUN 16 15 20 CREAT 0.85 0.62 0.80 CHEM: Recent Labs 05/13/2554205/12/2543005/11/25 1606 ALB -- 4.4 4.7 TPROT -- 7.1 7.6 CA 8.6 8.9 9.2 MG -- -- 2.4* HEPATIC: Recent Labs 05/12/25 0431 05/11/25 1606 ALKPHOS 109 120 ALT 44* 53* AST 31 37* TBILI 0.3 0.3 CARDIAC: No results for input(s): "CKTEST", "CKMB", "CKMBP", "TROPT", "PBNP" in the last 168 hours. URINALYSIS:No results for input(s): "PH", "SPGR", "UGLUC", "UBILI", "UKET", "UHB", "UPROT", "UROBIL", "UWBC", "SSA" in the last 168 hours. Invalid input(s): "NITR" Estimated Creatinine Clearance: 100.4 mL/min (based on SCr of 0.85 mg/dL). Medications: Current Facility-Administered Medications Medication Dose Route Frequency NaCl 0.9% iv flush bag 20 mL INTRAVENOUS PRN ondansetron 4 mg tab(s) (ZOFRAN) 4 mg ORAL q 6 H PRN Or ondansetron (PF) 4 mg injection (ZOFRAN) 4 mg INTRAVENOUS q 6 H PRN clonazePAM 1 mg tab(s) (KlonoPIN) 1 mg ORAL DAILY PRN divalproex ER 1,000 mg tab(s) (DEPAKOTE ER) 1,000 mg ORAL DAILY escitalopram oxalate 20 mg tab(s) (LEXAPRO) 20 mg ORAL DAILY lamoTRIgine 100 mg tab(s) (LaMICtal) 100 mg ORAL AT BEDTIME meropenem 1 g in NaCl 0.9% 100 mL Vial-Bag (MERREM) 1 g INTRAVENOUS q 8 H risperiDONE (RisperDAL) tab(s) 3 mg 3 mg ORAL AT BEDTIME diphenhydrAMINE 50 mg injection (BENADRYL) 50 mg INTRAVENOUS q 6 H PRN DAPTOmycin 400 mg in NaCl 0.9% 50 mL (CUBICIN) 6 mg/kg/dose (Adjusted) INTRAVENOUS q 24 HR oxyCODONE IR 5 mg tab(s) (ROXICODONE) 5 mg ORAL q 6 H PRN acetaminophen 650 mg tab(s) (TYLENOL) 650 mg ORAL q 6 H PRN oxyCODONE IR 10 mg tab(s) (ROXICODONE) 10 mg ORAL q 6 H PRN Assessment and Plan: Active Hospital Problems Diagnosis Date Noted (more content not included)... [facility] 05-12-2025 Note HNO ID: [id number] Author: RENETTA WAGNER DO Service: Hospital Medicine Author Type: Physician Type: Progress Notes Filed: 05/12/2025 17:28 Note Text: Hospital Medicine Daily Progress Note PRIMARY SERVICE: HOSPITAL MEDICINE Days: Page or epic chat me directly Evenings: Page hospital medicine pager Today's Date: May 12, 2025 Admit Date: 05/11/2025 10:09 PM ASSESSMENT/PLAN: This is a 35 year old female with past medical history of bipolar disorder, multiple antibiotic allergies, who presented to the ED with left nipple discharge. Acute mastitis: Patient with bilateral warmth, erythema, proximal streaking and nipple discharge to both breasts Patient given vancomycin with Benadryl and had mild allergic/itching reaction to it. Hx of anaphylactic allergy to cephalosporin-Keflex, other allergies include clindamycin, doxycycline, Bactrim. Left breast US with no abscess noted ID following - IV Dapto/Virgen for now Awaiting wound cultures Pain management Transaminitis: Pt asymptomatic and without hx of etoh use RUQ US noted hepatic steatosis Hep panel negative Continue to monitor Bipolar depression continue with home educations including Depakote, Lexapro, Lamictal and risperidone. SUBJECTIVE: Patient states pain warmth and redness have worsened and have spread since admission OBJECTIVE: 05/11/25 2246 05/12/25 0509 05/12/25 0719 05/12/25 1516 BP: 116/66 117/63 107/58 113/50 Pulse: 72 71 74 78 Resp: 17 16 16 Temp: 36.5 ?C (97.7 ?F) 36.5 ?C (97.7 ?F) 36.4 ?C (97.5 ?F) 36.5 ?C (97.7 ?F) TempSrc: Oral Oral Oral Oral SpO2: 95% 96% 95% 97% Weight: Height: Physical Exam: General appearance: alert, cooperative, pleasant, in no acute distress Head: Atraumatic, normocephalic Eyes: EOMI, PERRLA, Sclera anicteric ENT: External ears normal, nose normal with septum midline, MMM, Oropharynx without lesions Breast: erythema warmth and proximal streaking to bilateral breasts, L > R, Heart: regular rate and rhythm Lungs: Lungs clear to auscultation, No wheezing, rales or rhonchi Abdomen: soft, nondistended, nontender Ext: no edema in LE bilaterally Skin: No evidence of petechia, purpura, bruising or rash. Warm and pink. See breast exam Neuro: Awake, alert and oriented x 3, Cranial nerves II-XII grossly intact, and No involuntary motions. Labs: Recent Labs 05/12/25 0431 05/11/25 1606 WBC 5.90 7.53 HB 13.9 14.7 HCT 41.0 44.4 PLT 263 281 NA 140 137 K 4.4 3.9 CHLOR 109* 100 CO2 20* 24 BUN 15 20 CREAT 0.62 0.80 GLUC 170* 90 CA 8.9 9.2 MG -- 2.4* Imaging: Plan of care discussed with: patient, RN and Patient understands plan of care, r/b/a, and is agreeable to current plan. SIGNATURE: Renetta Wagner DO PATIENT NAME: Rosalva Huang DATE: May 12, 2025 TIME: 5:23 PM [facility] 05-12-2025 Note HNO ID: [id number] Author: WANDA HAWTHORNE RN Service: Care Management Author Type: Registered Nurse Type: Care Mgt Initial Assessment Filed: 05/12/2025 16:22 Note Text: Summary: High Risk Readmnission CARE MANAGEMENT: ASSESSMENT AND DISCHARGE PLAN SERVICE DATE: May 12, 2025 SERVICE TIME: 3:59 PM PCP: No primary care provider on file. Primary Contact: Extended Emergency Contact Information Primary Emergency Contact: Adri Osorio Mobile Relation: Significant other Secondary Emergency Contact: Zeynep Manzanares Mobile Relation: Aunt Admission Status: Observation Insurance Provider: [employer] Discharge Planning requested by: Per Department Practice Potential Transition Plans Home Advance Directives Current Advance Directive: Health Care Power of Forestry Contractor In Chart: Yes Up To Date and Valid: Yes Yes HCPOA paperwok on file within [facility] and verified to be current as of date/time of this note Legal Next of Kin Hierarchy per [place] Revised Code: Healthcare Power of Forestry Contractor Zeynep AGUILAR Adrielle Rea 1st alternate (SO) minorsParents Majority of Adult Siblings (consensus if possible) Nearest Blood Relative Zeynep Manzanares (aunt) Wanda Hawthorne RN May 12, 2025 Current Living Arrangements and Support Lives with: Children, Family members (aunt Zeynep Manzanares) Type of Residence: Private Residence (House) Does the patient have to climb stairs at home?: Yes Support: Family members, Spouse/significant other How do you manage to accomplish the following: Independent: Ambulation, Bathe/Shower, Dress, Meals/Meal Prep, Going to the bathroom, Medication Management, Transportation to appointments/community Current Services/Equipment Current Post-Acute Service(s): None Discharge Planning Patient Goal(s): Heal wounds, Be able to go home, General wellness [place] of Choice Explained: [place] of Choice Given: No Reason Not Given: No placements necessary Are you interested in bedside delivery of your medications? Yes Discharge Planning Participant(s): Patient Patient/Family Comments: Caregiver Assessment: Caregiver is ready, willing and able to meet the patient's needs as recommended by the inter-professional team: No Caregiver needed Transport at Discharge: Transportation Arrangements: Car Date of Trip: (TBD) Destination: home with her aunt Needs Prior to Discharge: Needs Prior to Discharge: To Be Determined, Discharge Prescriptions, IV Antibiotics, Wound Care, Other: See Comment (medical clearance) Post-Acute Discharge Plan: Met with pt at bedside and explained CM role in her care. Agreeable to CM assessment. Admitted with left breast pain and swelling. Concern for mastitis, infection of nipple piercing site. Pt has many allergies to ATB and ID was consulted for recommendations. She is currently on IV ATB. Wound cx, and BC are pending. Pt lives with her aunt Mookie in a home in [place] [address]. They recently moved from the home that her aunt also owns in [place], [place] about 1 month ago. her two small children also live with her and her aunt. They are currently with her aunt while she is admitted. She is IPTA, unemployed and able to drive. She is not active with any HHC, has no DME in the home and uses no AD for mobility. She has no income, states her aunt assists her financially. She does get SNAP assist. She denies safety concerns around her SO or family. She denies need for financial assist. She denies need for mental health resources. She does follow with for mental health counseling with a TRUST CLERK. She does not have a PCP, is agreeable to establish with CCP provide or NFP. Requested Real Estate Direct order from attending for DC follow up PCP order. Her aunt will provide her DC transportation home. Plan: Anticipate home with no skilled needs. Aunt will provide her DC transport home. Weekend CM: See weekend CM assignment,. can be reached by [employer] or [employer]. HIGH RISK READMISSION NOTE: HAS PATIENT BEEN READMITTED WITHIN THE PAST 7 DAYS?: No 30-DAY READMISSION RISK (%) of 40 OR ABOVE?: Yes READMISSION SCORE: 56 SDOH QUESTIONS REVIEWED WITH PATIENT?: Yes DATE OF LAST ADMISSION: 03/07-02/26/2025 PT STATED REASON FOR ADMISSION: left breast pain PATIENT GOALS:heal infection INTERVENTIONS IMPLEMENTED TO PREVENT READMISSION: Awaiting ID recommendation, pt has multiple drug allergies PCP OR F/U VISIT ARRANGED ? IF YES, DATE AND PROVIDER: No Requested DC PCP follow up order from attending via [employer]. DISCHARGE PLAN: TBD, anticipate home with no skilled needs but await ID recommendations SIGNATURE: Wanda Hawthorne RN PATIENT NAME: Rosalva Huang DATE: May 12, 2025 (more content not included)... [facility] 05-11-2025 Telephone encounter Note 35 year-old female with history of significant multiple allergies to many antibiotics presenting to ED with infected breast due to infected nipple piercing. Similar prior admission, now presenting with breast erythma, pain, and fever. Patient had tolerated IV vancomycin with benadryl previously. Admitted for IV antibiotics given extensive list of allergies and for ID consult after arrival. Kendell Ring MD 05/11/2025 6:44 PM [facility] Work Phone: 05-11-2025 Miscellaneous Notes 35 year-old female with history of significant multiple allergies to many antibiotics presenting to ED with infected breast due to infected nipple piercing. Similar prior admission, now presenting with breast erythma, pain, and fever. Patient had tolerated IV vancomycin with benadryl previously. Admitted for IV antibiotics given extensive list of allergies and for ID consult after arrival. Kendell Ring MD 05/11/2025 6:44 PM documented in this encounter [facility] 05-11-2025 History of Present illness Narrative Addended by: HERBERTH MONTANA on: 05/11/2025 11:26 AM Modules accepted: Orders Provider note: Reviewed update with RN and will increase depakote ER to 1000 mg po qhs, RN to follow up with pt in one week following dose increase and pt to go to lab for VPA level 5-7 days after increasing dose. .Given that valproate can increase lamotrigine levels, dose of lamotrigine was already reduced by 50% at her last appt. Monitor for side effects from either depakote or lamotrigine after dose increase - RN to follow up with pt in one week. If trough VPA level is very low (keeping in mind that lowered levels may be expected in first 3 wks following coadministration), consider increasing depakote dosage and also consider reducing lamotrigine dosage further by 25% if any concerns for lamotrigine excess. RN to continue to follow pt in interim between now and next psych f/u appt. Appointments for the next 13 months 05/16/2025 3:00 PM [facility] VASQUEZ Whaley 45 min 05/23/2025 1:00 PM [facility] Whaley 45 min 05/29/2025 12:20 PM [facility]NAGEMENT [facility] Tessa Dill RN 20 min 05/29/2025 12:40 PM [facility]ICATION MANAGEMENT [facility] Herberth Montana DO 20 min Video conference visit (Leia.). Patient identity confirmed via name and date of . Potential risks and benefits discussed with patient/guardian, who verbalized consent for telehealth encounter. Patient location: home. Registered Nurse Visit 05/11/2025 10:00 AM Reason For Visit Health maintenance ("care gap") screening, assessment, education, and referral. Interval History and Patient Concerns Rosalva reports she notices no difference with the depakote. "It feels like a sugar pill." Denies any side effects. Reports she is rapid cycling. On the days she is manic she is up at night and can't sleep. On the days she is depressed she sleeps all night. Client asked if valium could be an option for her anxiety. Reports intrusive thoughts are under control. Anxiety is "high." Denies thoughts of self harm or harming others. Reports she has no help with child care director at all. Reports Adri is upstairs working all the time. Reports she isn't able to leave the house and have him watch the kids. Reports she has 3 dogs and 6 eight week old puppies. She is planning to sell the puppies. Medication Adherence Good Side Effects Reported No New Medical Problems or History denies Vitals Taken? No COWS Completed? No AIMS Completed? No Nursing Specialty Psychiatry Patient has Narcan? No Reported Mood Euthymic Reported Sleep variable Reported Appetite good Hallucinations or Delusions None Reported General Alert;Cooperative Appearance Appropriate Behavior Irritable Insight Fair Judgment Appropriate Title X Services Was a Title X service provided? No. Assessment and Plan Risk Assessment Acute risk for harm to self/others: Low 1. Bipolar disorder, rapid cycling ([facility]) (Primary) Care Planning Additional Plan: Patient education provided this visit: medication, symptoms, side effects, coping Routed encounter note to Dr. Montana Follow up as scheduled Call sooner if needed Reviewed upcoming appointments: Appointments for the next 13 months 05/16/2025 3:00 PM [facility] Whaley 45 min 05/23/2025 1:00 PM [facility] hWaley 45 min 05/29/2025 12:20 PM MEDICATION MANAGEMENT [facility] Tessa Dill RN 20 min 05/29/2025 12:40 PM MEDICATION MANAGEMENT [facility] Herberth Montana DO 20 min documented in this encounter [employer] Phone: 05-11-2025 Miscellaneous Notes documented in this encounter [employer] Phone: 05-11-2025 Miscellaneous Notes documented in this encounter [employer] Phone: 05-11-2025 History of Present illness Narrative Video conference visit ([email or web address]). Patient identity confirmed via name and date of . Potential risks and benefits discussed with patient/guardian, who verbalized consent for telehealth encounter. Patient location: home. Registered Nurse Visit 05/11/2025 10:00 AM Reason For Visit Health maintenance ("care gap") screening, assessment, education, and referral. Interval History and Patient Concerns Rosalva reports she notices no difference with the depakote. "It feels like a sugar pill." Denies any side effects. Reports she is rapid cycling. On the days she is manic she is up at night and can't sleep. On the days she is depressed she sleeps all night. Client asked if valium could be an option for her anxiety. Reports intrusive thoughts are under control. Anxiety is "high." Denies thoughts of self harm or harming others. Reports she has no help with child care director at all. Reports Adri is upstairs working all the time. Reports she isn't able to leave the house and have him watch the kids. Reports she has 3 dogs and 6 eight week old puppies. She is planning to sell the puppies. Medication Adherence Good Side Effects Reported No New Medical Problems or History denies Vitals Taken? No COWS Completed? No AIMS Completed? No Nursing Specialty Psychiatry Patient has Narcan? No Reported Mood Euthymic Reported Sleep variable Reported Appetite good Hallucinations or Delusions None Reported General Alert;Cooperative Appearance Appropriate Behavior Irritable Insight Fair Judgment Appropriate Title X Services Was a Title X service provided? No. Assessment and Plan Risk Assessment Acute risk for harm to self/others: Low 1. Bipolar disorder, rapid cycling ([facility]) (Primary) Care Planning Additional Plan: Patient education provided this visit: medication, symptoms, side effects, coping Routed encounter note to Dr. Montana Follow up as scheduled Call sooner if needed Reviewed upcoming appointments: Appointments for the next 13 months 05/16/2025 3:00 PM [facility] Whaley 45 min 05/23/2025 1:00 PM [facility] Whaley 45 min 05/29/2025 12:20 PM MEDICATION MANAGEMENT [facility] Tessa Dill RN 20 min 05/29/2025 12:40 PM MEDICATION MANAGEMENT [facility] Herberth Montana DO 20 min documented in this encounter [employer] Phone: 05-08-2025 History of Present illness Narrative Reason for Visit: Individual Counseling Video conference visit ([email or web address]). Patient identity confirmed via name and date of . Potential risks and benefits discussed with patient/guardian, who verbalized consent for telehealth encounter. Patient location: home. Problem: CL reports increase in "rapid cycling" and medicine isn't working. CL reports feeling "really manic" for days then depression will get really overwhelming. CL reports feeling OCD and intrusive thoughts are manageable. CL reports feeling very overwhelmed and recent loss of Aunt. CL stated children's father Pure chaos all day long CL informed of feeing good about children's Dad hiring a personal lines account manager to help meal prep and goals to lose weight. F31.70 Bipolar disorder in full remission, most recent episode unspecified type ([facility]) (primary encounter diagnosis) Mental Status Exam: Appearance: appropriate Behavior: irritable, hyperactive Speech: loud Mood: nervous, anxious, angry Affect: labile Thought content: unremarkable Perception: unremarkable Insight: limited - CL recognizes stressors but is pre-contemplative about applying coping skills or making changes. Judgement: appropriate Intervention: The following goals were addressed today: GOAL: "I know it will never go away but I want to get better coping skills to manage" and GOAL: Identify and discuss unresolved life conflicts (see measurable component below): Next Care Plan Review Date: 07/19/2025 Provider addressed Rosalva's concerns related to the presenting problem above through the following therapeutic interventions: Active and reflective listening, Enhancing coping skills, Facilitating exploration and naming of emotions, Motivational interviewing, and Symptom management, skill building. Acute risk for harm to self/others: Low C-SSRS Screen Response/Impression: Rosalva demonstrated no change in session today as evidenced by declining coping skills and using black/white thinking. Overall impression of treatment demonstrates no change as evidenced by self reports of feeling overwhelmed and increased rapid cycling symptoms. TH explored what symptoms of abigail and depression look like. TH discussed being able to apply coping skills when feeling symptomatic and being able to understand that medicine does not work alone in making progress. TH asked open ended questions about current symptoms and how having children has helped with motivation by "forcing to get up and not lay around when feeling depressed". TH asked open ended questions about current living dynamics and being able to to make healthy boundaries with children's father regarding roles. BASIS-24 Clinical Severity - Most Recent Administration Date Administered: 04/24/2025 Domain Subscore & Severity Depression/Functioning 0.48 - Low Interpersonal Relationships 2.68 - High Self-Harm 0 - Low Emotional Lability 1 - Moderate Psychosis 0 - Low Alcohol/Drug Use 0 - Low BASIS-24 Overall Score 0.75 - Low Reference: BASIS-24 Behavior and Symptom Identification Scale: Clinical Cut Scores. Jama Patel (2018). BASIS-24 results were not reviewed. Plan: Rosalva's follow-up/homework: CL was recommended to make small changes in home like moving cat food to higher location and putting locks on tops of doors to prevent children from going into unattended rooms to help reduce feeling overwhelmed. Provider's follow-up/referrals/action items: N/A Next appointment with this provider: 05/16/25 documented in this encounter [facility] Work Phone: 05-02-2025 Nurse Note TH returned cleint call and left with provided number to call back and schedule follow up appt documented in this encounter [facility] Work Phone: 04-24-2025 History of Present illness Narrative Associated Problem(s): Generalized anxiety disorder with panic attacks Panic attacks persist despite being on higher dose of lexapro. Since lexapro has helped with OCD symptoms, she doesn't want to change it and has had mood swings on buspirone in past. Will rechallenge with hydroxyzine today. 25 mg po tid prn acute anxiety (may take up to 50 mg at a time but do not exceed 75 mg total per day). Stop klonopin d/t lack of efficacy. Orders: RN NURSING PER 15 MIN [[id number]] hydrOXYzine HCL (ATARAX) 25 mg tablet; Take 1 Tablet by mouth 3 (three) times daily as needed for anxiety. escitalopram (LEXAPRO) 20 mg tablet; Take 1 Tablet by mouth once daily. Associated Problem(s): Bipolar disorder in full remission ([facility]) Add risperdal 0.5 mg po daily PRN for agitation in addition to standing dose of risperdal 3 mg po qhs for mood stability and off label for intrusive thoughts. Continue lamotrigine for mood stabliity. Orders: risperiDONE (RISPERDAL) 0.5 mg tablet; Take 1 Tablet by mouth once daily as needed for other reason (agitation). lamoTRIgine (LAMICTAL) 200 mg tablet; Take 1 Tablet by mouth once daily. risperiDONE (RISPERDAL) 3 mg tablet; Take 1 Tablet by mouth 2 (two) times daily. Associated Problem(s): Obsessive-compulsive disorder, unspecified Improved/stable; continue risperdal and lexapro combination. Orders: risperiDONE (RISPERDAL) 3 mg tablet; Take 1 Tablet by mouth 2 (two) times daily. escitalopram (LEXAPRO) 20 mg tablet; Take 1 Tablet by mouth once daily. Reason for visit: Psychiatric Med Management Rosalva presents prior to their psychiatry provider visit to evaluate medication effectiveness, update medical history, and review overall treatment status. In Person visit. Patient identity confirmed via name and date of . Patient location: clinic/office Subjective Interval history and patient concerns: Client reports her mood is good but she gets frustrated when the kids act out. Denies acting out towards kids or harming them. Reports she takes an extra 0.5mg of Risperidal and it takes the edge off. Reports that she takes a breath and leaves the room to regroup. Denies hallucinations or delusional thoughts. Denies depression symptoms. Anxiety is high. Reports she has it most of the time. Reports panic attacks daily. Denies thoughts of harming self or others. Intrusive thoughts of bad things happening are "pretty much non existent." Current Outpatient Medications Medication Instructions acetaminophen (TYLENOL) 500 mg tablet No dose, route, or frequency recorded. ACNE MEDICATION 5 % CitruceL 1,000 mg, Every 8 hours PRN clonazePAM (KLONOPIN) 1 mg, oral, Daily PRN EPINEPHrine (EPIPEN) 0.3 mg escitalopram (LEXAPRO) 20 mg, oral, Daily hydrocortisone 2.5 % cream lamoTRIgine (LAMICTAL) 200 mg, oral, Daily metroNIDAZOLE (FLAGYL) 500 mg, 2 times daily nitrofurantoin, macrocrystal-monohydrate, (MACROBID) 100 mg capsule 100 mg, 2 times daily Nurtec ODT 75 mg onabotulinumtoxinA (BOTOX) 200 Units, EVERY 12 Weeks ondansetron ODT (ZOFRAN-ODT) 4 mg disintegrating tablet TAKE 1 TABLET BY MOUTH EVERY 6 HOURS NEEDED FOR NAUSEA AND VOMITING FOR UP TO 7 DAYS risperiDONE (RISPERDAL) 3 mg, oral, 2 times daily Ubrelvy 100 mg Reported medication adherence: yes Reported medication side effects: weight gain New medical problems or history: kidney infection Objective Vitals Blood pressure 118/76, pulse 99, height 5' 4" (1.626 m), weight 191 lb (86.6 kg), not currently . Mental Status Exam: Behavior: generally relaxed and engaged Speech: unremarkable Mood: neutral Affect: appropriate for circumstance Thought content: unremarkable Perception: unremarkable Additional objective data: BASIS-24 Clinical Severity - Most Recent Administration Date Administered: 04/24/2025 Domain Subscore & Severity Depression/Functioning 0.48 - Low Interpersonal Relationships 2.68 - High Self-Harm 0 - Low Emotional Lability 1 - Moderate Psychosis 0 - Low Alcohol/Drug Use 0 - Low BASIS-24 Overall Score 0.75 - Low Reference: BASIS-24 Behavior and Symptom Identification Scale: Clinical Cut Scores. Jama Patel (2018). BASIS-24 results were not reviewed. Assessment Provider diagnosis and treatment plan reviewed. F41.1,F41.0 Generalized anxiety disorder with panic attacks (primary encounter diagnosis) F31.70 Bipolar disorder in full remission, most recent episode unspecified type ([facility]) Z51.81 Therapeutic drug monitoring Comment: Risk Assessment: Acute risk for harm to self/others: Low Plan Verified patient medications and allergies; updated patient medical history in medical record. Provided report to Dr. Montana regarding patient concerns and status. Follow up as scheduled Upcoming appointments: Appointments for the next 13 months 04/25/2025 12:00 PM [facility] Whaley 45 min Subjective In person Chief Complaint: Psychiatric Med Management HPI Rosalva Huang is a 35 year old female with h/o bipolar disorder and NIKKIE, presenting for f/u visit. 04/24/25 (today): Pt reports she has been more anxious. Having panic attacks daily. She gets breathless and heart races. More anxious and reports some increased irritability. She has been more short-tempered lately with the kids screaming all the time. She understands that they are adjusting to the change with her and being separate. She finds that taking a low dose of Risperdal has been helpful for mood stability and when she has taken it for agitation. Lexapro has helped with intrusive thoughts/obsessions quite a bit, together with the Risperdal. Pt reports klonopin does nothing and had a similar lack of response to Ativan. Both worked initially for a couple of occasions but then no effect after that. Would like to revisit trial of hydroxyzine since she states she wasn't on the lexapro (or at least not on current dosage) when she last tried it and would like to avoid medication that can be habit-forming. Having trouble sleeping at night sometimes. Denies depressed mood, denies manic/mixed mood symptoms, denies psychotic symptoms and denies SI/HI. Reports medication compliance and denies side effects though she has gained weight in the past few months. She lives with her aunt Zeynep. Weekend she brings kids for visits with ex-partner, they are still but no recent conflicts noted. She hasn't been drinking alcohol as often recently. She had two glasses of wine with a friend on two different occasions. 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 She reports no current desire to drink excessively, and denies misuse of prescription klonopin. States she still has most of the bottle left since she stopped taking it after it was ineffective the last 2 times she tried it. Recently was seen at urgent care and dx'd with BV. On Flagyl course and is taking PRN benadryl (denies using in high quantities) for any hives/itching given her recent h/o antibiotic allergic reactions. 03/20/25: Pt reports that the klonopin is no longer effective. Says it worked for a couple weeks but then no longer. Having 3 panic attacks per week lately. Happens more in the evening after the kids go to bed. Since lexapro dosage was increased has very little intrusive or obsessive thoughts. Pt reports she is coping well with the anxiety for the most part. She notes that after taking Risperdal she has felt calmer and inquires about possible dose increase today. Starts her new job at [employer] on March 27. 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 Thinking of attending nursing school since the clinic has a program where they will pay for it. Feels supported by her aunt, with whom she lives on the weekdays. States she and the kids return to her ex-'s place on weekends. This arrangement has been working out fairly well per pt. No recent issues or discord reported. Pt was seen several times in ED since her last appt. Reporting si/sx of allergic reactions. Per pt she is no longer on antibiotics and has not had any recurrence of allergy symptoms in the past week or so. Denies any current si/sx of infection nor any of an allergic reaction currently. Interim substance use history: Social History Substance and Sexual Activity Drug Use Not Currently Types: Opioids, Marijuana Comment: When she was 17 she had a problem with marijuana and prescription drug abuse (snorted Xanax and abused pain pills) and she got in trouble at 17 and at 18 she stopped Tobacco History Tobacco Use Smoking Status Never Smokeless Tobacco Never Social History Substance and Sexual Activity Alcohol Use Not Currently Comment: 2 months ago 01/30/25: Copied forward from [facility] (Dec admission): ALLERGIES Allergen Reactions Clindamycin Hives Diffuse hives and angioedema of upper lip within 30 minutes of receiving 1st dose. Doxycycline Hives Diffuse hives 30 minutes after 1st dose. Diffuse hives and x1 episode of emesis 30 minutes after 2nd dose. Fluconazole Rash Required IV diphenhydramine 01/06/2025 Onion GI Upset Vancomycin Itching Flushing and pruritus consistent with vancomycin infusion reaction. Please refer to Allergy note from 01/05/2025 for details. Adhesive Tape (Rita* Rash, Itching Patient reports unable to tolerate band-aids after a procedure. She noted redness and itching at site of band aid. Mosquitos Swelling Phenergan [Prometha* GI Upset Sunscreen Rash Tingle tanning lotion Zyrtec [Cetirizine * Hives, Other: See Comments Hives and palpitations within 30 minutes of 1st dose. Tolerates Benadryl without issue. No contraindication to trying other antihistamines such as Arthur or Claritin Meds: Outpatient Medications Prior to Visit Medication Sig Dispense Refill metroNIDAZOLE (FLAGYL) 500 mg tablet Take 500 mg by mouth twice a day. nitrofurantoin, macrocrystal-monohydrate, (MACROBID) 100 mg capsule Take 100 mg by mouth 2 (two) times daily. ondansetron ODT (ZOFRAN-ODT) 4 mg disintegrating tablet TAKE 1 TABLET BY MOUTH EVERY 6 HOURS NEEDED FOR NAUSEA AND VOMITING FOR UP TO 7 DAYS escitalopram (LEXAPRO) 20 mg tablet Take 1 Tablet by mouth once daily 30 Tablet 1 lamoTRIgine (LAMICTAL) 200 mg tablet Take 1 Tablet by mouth once daily 30 Tablet 1 risperiDONE (RISPERDAL) 3 mg tablet Take 1 Tablet by mouth 2 (two) times daily 30 Tablet 1 clonazePAM (KLONOPIN) 1 mg tablet Take 1 Tablet by mouth once daily as needed for anxiety 30 Tablet 0 ACNE MEDICATION 5 % EPINEPHrine (EPIPEN) 0.3 mg/0.3 mL pen injector Inject 0.3 mg into the muscle hydrocortisone 2.5 % cream ubrogepant (UBRELVY) 100 mg tab Take 100 mg by mouth onabotulinumtoxinA (BOTOX) 200 unit solr injection Inject 200 Units into the skin Every 12 Weeks methylcellulose, laxative, (CITRUCEL) 500 mg tab tab Take 1,000 mg by mouth every 8 (eight) hours as needed rimegepant (NURTEC ODT) 75 mg TbDi Take 75 mg by mouth acetaminophen (TYLENOL) 500 mg tablet No facility-administered medications prior to visit. Objective 04/24/2025 9:36 AM BP 118/76 Pulse 99 Weight 191 lb (86.6 kg) % Change in weight 20.9 Height 5' 4" (162.6 cm) Estimated body mass index is 32.79 kg/m as calculated from the following: Height as of this encounter: 5' 4" (1.626 m). Weight as of this encounter: 191 lb (86.6 kg). Mental Status Exam Appearance is appropriate for circumstance and neat. as able to visualize on videoconference General Health is generally good. as able to visualize on videoconference Eye Contact is good. as able to visualize on video Motor Activity is unremarkable. as able to visualize on video Speech is unremarkable. Affect is full range and mood-congruent. Reported Mood is neutral/euthymic. Thought Content has obsessions does not have suicidal ideations and does not have homicidal ideations. intrusive/obsessions are greatly reduced Thought Process is unremarkable, is goal-directed and is linear. Perception is unremarkable does not have hallucinations. Attention is alert. Demeanor is appropriate for situation and cooperative. Insight is appropriate. Judgement is appropriate. Orientation is fully oriented. Memory is grossly intact and not formally tested. Data Reviewed (labs, BASIS-24, AIMS, outside records, etc): Reviewed labs from February and Mar, 2025 in Care Everywhere (CMP, CBC most notably). AIMS TOTAL (1-7): 0 (04/24/25 0934) Lab Results Component Value Date CHOL 207 (H) 06/13/2024 LDL 135 (H) 06/13/2024 HDL 48 06/13/2024 TRIGLYC 135 06/13/2024 HGBA1C 5.4 06/13/2024 CREATININE 0.72 02/27/2025 EGFR 113 02/27/2025 OARRS Reviewed: Herberth Montana DO on 04/24/2025 10:26 AM BASIS-24 Clinical Severity - Most Recent Administration Date Administered: 04/24/2025 Domain Subscore & Severity Depression/Functioning 0.48 - Low Interpersonal Relationships 2.68 - High Self-Harm 0 - Low Emotional Lability 1 - Moderate Psychosis 0 - Low Alcohol/Drug Use 0 - Low BASIS-24 Overall Score 0.75 - Low Reference: BASIS-24 Behavior and Symptom Identification Scale: Clinical Cut Scores. Jama Patel (2018). Last Menstrual Period: Assessment Safety Risk Assessment: Acute risk for harm to self/others: Low Chronic risk for harm to self/others: Low No SI/intent/plan. No thoughts of hurting others/HI. No access to weapons. Assessment & Plan Generalized anxiety disorder with panic attacks Panic attacks persist despite being on higher dose of lexapro. Since lexapro has helped with OCD symptoms, she doesn't want to change it and has had mood swings on buspirone in past. Will rechallenge with hydroxyzine today. 25 mg po tid prn acute anxiety (may take up to 50 mg at a time but do not exceed 75 mg total per day). Stop klonopin d/t lack of efficacy. Orders: RN NURSING PER 15 MIN [[id number]] hydrOXYzine HCL (ATARAX) 25 mg tablet; Take 1 Tablet by mouth 3 (three) times daily as needed for anxiety. escitalopram (LEXAPRO) 20 mg tablet; Take 1 Tablet by mouth once daily. Bipolar disorder in full remission, most recent episode unspecified type ([facility]) Add risperdal 0.5 mg po daily PRN for agitation in addition to standing dose of risperdal 3 mg po qhs for mood stability and off label for intrusive thoughts. Continue lamotrigine for mood stabliity. Orders: risperiDONE (RISPERDAL) 0.5 mg tablet; Take 1 Tablet by mouth once daily as needed for other reason (agitation). lamoTRIgine (LAMICTAL) 200 mg tablet; Take 1 Tablet by mouth once daily. risperiDONE (RISPERDAL) 3 mg tablet; Take 1 Tablet by mouth 2 (two) times daily. Therapeutic drug monitoring Urine Drug Screen today Screening for endocrine, metabolic and immunity disorder Non-fasting metabolic labs d/t tx with Rispderal/atypical antipsychotic medication. Orders: LIPID PANEL WITH REFLEX Routine; Future HEMOGLOBIN GLYCOSYLATED A1C Routine; Future Long-term use of high-risk medication Non-fasting metabolic labs d/t tx with Rispderal/atypical antipsychotic medication. Orders: LIPID PANEL WITH REFLEX Routine; Future HEMOGLOBIN GLYCOSYLATED A1C Routine; Future Obsessive-compulsive disorder, unspecified type Improved/stable; continue risperdal and lexapro combination. Orders: risperiDONE (RISPERDAL) 3 mg tablet; Take 1 Tablet by mouth 2 (two) times daily. escitalopram (LEXAPRO) 20 mg tablet; Take 1 Tablet by mouth once daily. Encounter for observation for other suspected diseases and conditions ruled out Due to rx for benzodiazepine, pt signed controlled med agreement and will get UDS today. For now, she is stopping the klonopin but may resume in future vs addition of a different benzodiazepine if hydroxyzine is ineffective and benefit is determined to exceed risks. Orders: URINE DRUG PANEL Urine Routine; Future Plan Risks, benefits, and alternatives were discussed. Patient/guardian understood and agreed with the plan. Reviewed Safety Plan: Call 911 or go to ED if in crisis. Advised of availability of after hours RN by calling main number for [facility]. Follow-up: No follow-ups on file. Upcoming Appointments: Appointments for the next 13 months 04/25/2025 12:00 PM COUNSELING STANDARD [facility]ICO VASQUEZ Wh[place] 45 min 05/29/2025 12:20 PM MEDICATION MANAGEMENT [facility] [id number] NURSE LUCI MONTANA 20 min 05/29/2025 12:40 PM MEDICATION MANAGEMENT [facility] Herberth Montana DO 20 min documented in this encounter [facility] Work Phone: 04-20-2025 Telephone encounter Note Contacted patient, identified by Name and Birthday. Relayed message with verbal understanding. No further questions at this time. Patient stated that she would like the pills for 7 days. Verified pharmacy as [facility] 04-20-2025 Miscellaneous Notes Contacted patient, identified by Name and Birthday. Relayed message with verbal understanding. No further questions at this time. Patient stated that she would like the pills for 7 days. Verified pharmacy as [facility] Left message for patient on voicemail. She was positive for Alessandra but she already was given a prescription for terconazole cream yesterday. She is positive for bacterial vaginosis. I wanted to know what kind of treatment she preferred either by mouth Flagyl, that would be 1 twice a day for a week, but she cannot drink alcohol with it, or does she want MetroGel vaginal once at bedtime for 5 nights. Please verify which when she would like when she calls back. And verify pharmacy.Thanks documented in this encounter [facility] 04-20-2025 Telephone encounter Note Left message for patient on voicemail. She was positive for Alessandra but she already was given a prescription for terconazole cream yesterday. She is positive for bacterial vaginosis. I wanted to know what kind of treatment she preferred either by mouth Flagyl, that would be 1 twice a day for a week, but she cannot drink alcohol with it, or does she want MetroGel vaginal once at bedtime for 5 nights. Please verify which when she would like when she calls back. And verify pharmacy.Thanks [facility] 04-19-2025 Instructions Tessa Guerrero, MACHINE WOODWORKING SANDER.CAGER OPERATOR - 04/19/2025 12:08 PM EDT 1. Dysuria - ICD9: 788.1, ICD10: R30.0 (primary diagnosis) acute - Send urine for culture - Patient education for prevention given - UA DIP, URINE (POC) All results will go to [facility]. We will notify you there if there is a change to treatment required based on results. Increase fluid intake (WATER) Avoid bladder irritants, such as caffeine, coffee, chocolate, and caffeinated teas Empty bladder at least every 3 hours Do not take bubble baths or douche Wear cotton underwear Urinate BEFORE and AFTER sexual activity Refrain from sexual activity until all of your symptoms have fully resolved Encouraged a daily probiotic or yogurt with live cultures for gut health- do not take within 1-2 hours of antibiotic Take antibiotic to completion and as prescribed Take antibiotic with food If you experience recurrent UTIs, you can try using D-Mannose (over the counter) for prevention If you experience urethral or vaginal burning, you can try using REPLENS over the counter - If you are a diabetic, be sure to closely monitor your blood sugar levels and follow up with your pharmacy intake coordinator/PCP, if they remain elevated - Follow up with your PCP and/or SPECIAL EDUCATION COORDINATOR if you continue to experience symptoms, worsening of symptoms, or if they return shortly after treatment - Encouraged follow up with Urology ([phone]) if you continue to experience recurrent UTIs or if you see blood in your urine - Go to the ER with any severe abdominal or lower back pain, fevers, malaise/lethargy, confusion or nausea/vomiting with UTI symptoms, urinating yvrose blood - Follow up if you have no improvement in symptoms on antibiotic after 48 hours 2. Acute vaginitis - ICD9: 616.10, ICD10: N76.0 - TERCONAZOLE 0.8 % VAGINAL CREAM - do not douche - recommend seeing SPECIAL EDUCATION COORDINATOR for recurrent BV - no sexual activity until results have come back and you have completed any treatments and you are symptom-free documented in this encounter [facility] 04-19-2025 Note [facility] 04-19-2025 History of Present illness Narrative [facility] Subjective Rosalva Huang is a 35 year old female. Patient presents with: UTI: Dysuria, vaginal itching and discharge, hematuria x4 days, BV/yeast The patient is a 35-year-old female with a history of recurrent UTIs, BV, and yeast infections, presenting with dysuria, vaginal itching, and dyspareunia. HPI Dysuria and Vaginal Itching: - Onset of symptoms 4 days ago. - Reports burning sensation during urination and significant vaginal itching. - Noted a small amount of blood in urine on a few occasions. - Describes two types of vaginal discharge: white and clear, the latter being constant. - Denies fever, chills, nausea, or emesis. - Denies concerns for STDs; has had the same sexual partner for almost 6 years. - Has an IUD and does not experience regular menstrual periods. - Recent history of UTI treated with Macrobid. - States she may have passed a kidney stone, though recent CT abdomen/pelvis showed no evidence of stones. Dyspareunia: - Vaginal pain during attempted intercourse prompted recognition of current symptoms. - Denies abdominal or pelvic pain outside of intercourse. Recurrent UTIs and BV: - Increased frequency of UTIs and BV since childbirth 4 years ago. - Managed with medications prescribed by SPECIAL EDUCATION COORDINATOR. - Symptoms of UTIs and BV often similar, causing confusion in identifying the specific condition. Yeast Infections: - History of recurrent yeast infections. - Reports current symptoms consistent with past yeast infections. - Previous treatment with Diflucan resulted in a mild rash, managed with Benadryl. - Has used Terazol cream in the past with limited effectiveness. Review of Systems Constitutional: Negative for chills, fatigue and fever. Gastrointestinal: Negative for abdominal pain, nausea and vomiting. Genitourinary: Positive for dyspareunia, dysuria, frequency, hematuria, urgency, vaginal discharge (whitish and clear discharge) and vaginal pain. Negative for genital sores, pelvic pain and vaginal bleeding. Vaginal itching Objective BP 122/78 Pulse 80 Temp 36.7 C (98 F) (Temporal) Resp 16 Wt 86.5 kg (190 lb 11.2 oz) LMP (LMP Unknown) SpO2 98% BMI 32.73 kg/m Physical Exam Vitals and nursing note reviewed. Constitutional: General: She is not in acute distress. Appearance: She is not ill-appearing, toxic-appearing or diaphoretic. Cardiovascular: Rate and Rhythm: Normal rate and regular rhythm. Heart sounds: S1 normal and S2 normal. Heart sounds not distant. Pulmonary: Effort: Pulmonary effort is normal. Breath sounds: No stridor or decreased air movement. No decreased breath sounds, wheezing, rhonchi or rales. Abdominal: General: Bowel sounds are normal. Palpations: Abdomen is soft. Tenderness: There is no abdominal tenderness. There is no right CVA tenderness or left CVA tenderness. Genitourinary: Comments: Deferred, pt prefers to self swab. Skin: Coloration: Skin is not cyanotic, jaundiced or pale. Neurological: Mental Status: She is alert. Patient states today she is certain that she has a yeast infection. She has had numerous UTIs as well as BV in the past. She is not sure which one she is having currently. Patient states she reacts to oral Diflucan with a mild red rash on her skin which she has previously managed with oral Benadryl. She states she has Pepcid and an EpiPen at home should she need it. She states she has taken Diflucan in the past for yeast infections numerous times and the reaction has not worsened. She denies any signs or symptoms of anaphylaxis with taking Diflucan. Patient is also on Lexapro 20 mg. Discussed with patient I strongly to prefer to try the topical cream versus Diflucan due to interactions which include possible heart arrhythmia. Patient states that the cream does not seem to work as well for her but she is open to trying it. Patient was able to schedule an appointment with SPECIAL EDUCATION COORDINATOR on April 26. Patient is allergic to Keflex and sulfa. She was in the ER earlier this month with a UTI. She was sent home on Macrobid and states that her symptoms resolved. She states she tolerates Macrobid and Flagyl well. In shared decision making with the patient she prefers to wait to start an antibiotic for BV or UTI until tests have resulted. {ASSESSMENT/PLAN: 1. Dysuria - ICD9: 788.1, ICD10: R30.0 (primary diagnosis) acute - Send urine for culture - Patient education for prevention given - UA DIP, URINE (POC) All results will go to [facility]. We will notify you there if there is a change to treatment required based on results. Increase fluid intake (WATER) Avoid bladder irritants, such as caffeine, coffee, chocolate, and caffeinated teas Empty bladder at least every 3 hours Do not take bubble baths or douche Wear cotton underwear Urinate BEFORE and AFTER sexual activity Refrain from sexual activity until all of your symptoms have fully resolved Encouraged a daily probiotic or yogurt with live cultures for gut health- do not take within 1-2 hours of antibiotic Take antibiotic to completion and as prescribed Take antibiotic with food If you experience recurrent UTIs, you can try using D-Mannose (over the counter) for prevention If you experience urethral or vaginal burning, you can try using REPLENS over the counter - If you are a diabetic, be sure to closely monitor your blood sugar levels and follow up with your pharmacy intake coordinator/PCP, if they remain elevated - Follow up with your PCP and/or SPECIAL EDUCATION COORDINATOR if you continue to experience symptoms, worsening of symptoms, or if they return shortly after treatment - Encouraged follow up with Urology ([phone]) if you continue to experience recurrent UTIs or if you see blood in your urine - Go to the ER with any severe abdominal or lower back pain, fevers, malaise/lethargy, confusion or nausea/vomiting with UTI symptoms, urinating yvrose blood - Follow up if you have no improvement in symptoms on antibiotic after 48 hours 2. Acute vaginitis - ICD9: 616.10, ICD10: N76.0 - TERCONAZOLE 0.8 % VAGINAL CREAM - do not douche - may use Tylenol or motrin for discomfort - recommend seeing SPECIAL EDUCATION COORDINATOR for recurrent BV - no sexual activity until results have come back and you have completed any treatments and you are symptom-free Tessa Guerrero APRN.CAGER OPERATOR History and Record Review External record(s) reviewed: prior outpatient record and prior labs/imaging. Findings from review of outpatient records: ER visit Findings from review of prior labs/imaging: CT scan, no kidney stones Differential Diagnoses - UTI is more likely for the following reason(s): suggested by H&P - vaginitis is more likely for the following reason(s): suggested by H&P Additional Tests or Interventions The following medication(s) were considered but not ordered: Flagyl, macrobid Disposition The patient was discharged. OTC Medications were advised: Analgesia PRN Addendum: Recording using [employer] software for draft documentation of the visit was discussed with the patient/authorized community health program representative; all questions welcomed and answered. Patient/authorized community health program representative agreed to proceed Tessa Guerrero APRN.[place] Procedures documented in this encounter [facility] 03-29-2025 Note [facility] 03-29-2025 Procedure note Images from the original note were not included. [facility] Follow-up Visit Current Preventive: botox Change needed for current preventive? No Current Abortive: ubrelvy - not effective Miscellaneous Patient Concerns: Plans to have her IUD removed soon and try for . Needs a new rescue medication but does no know what to take since she may be trying to conceive. Discussion of Botox in : Extensive risk-benefit analysis took place as part of informed consent and Botox for migraine is NOT FDA approved for use in . We discussed the limited available data for the use of onabotulinum toxin A for the treatment of chronic migraine in and that no well controlled human studies have been done. We discussed that after intramuscular or subcutenous injection, the toxin is not expected to appear in the systemic circulation. Therefore it is unlikely to cross the placenta to the fetus. We also reviewed the small but growing number of published reports about the use of Botox in (cited below). Overall the literature does not show an increased risk of defects or poor maternal or outcomes, however the number of cases is still too small to identify an increase in rare but potentially serious events and the majority of literature reports exposure prior to or in the first trimester only. Additionally, these reports are not solely on patients receiving Botox per PREEMPT protocol and included patients with exposure for other indications. Patient wishes to proceed with Botox PREEMPT protocol and informed consent signed in the chart. Selected studies (this is not a comprehensive list): Leidy MF, Russell RS, Umang A, Deb GARZON, Michael L, Jose I, Eron H. outcomes following exposure to onabotulinumtoxinA. Pharmacoepidemiol Drug Saf. 2016.? Holden HT, Darian M, Rosy F. OnabotulinumtoxinA for chronic migraine during : a real world experience on 45 patients. J Headache Pain. 2020;21(1):129. This study reviews the largest cohort of people with migraine documented who received botox during to date.? Ck AY, Harry PM. OnabotulinumtoxinA successfully used as migraine prophylaxis during : a case report. Mil Med. 2014;179(6):e703-4. Longest reported follow-up period for a child whose mother received BoNTA during . Impression: Chronic migraine without aura, intractable, without status migrainosus (primary encounter diagnosis) Plan: - try periactin 4 - 8 mg as needed for migraine - Botox today (see procedure note below) Follow-Up Onabotulinum Toxin A (BotoxTM) for Migraine Indication: Chronic Intractable Migraine Treatment #: 6 Referral Expiration: 06/07/2025 Prior to the initiation of the FIRST treatment with Onabotulinum Toxin A, the patient reported the following average headache frequency over the past 3 MONTHS: Number of moderate-severe migraine days/month: 25 Number of mild migraine days/month: 0 Number of headache free days/month: 5 (120 headache-free hours) After treatment with Onabotulinum Toxin A: Number of moderate-severe migraine days/month: 3 Number of mild migraine days/month: 0 Number of headache free days/month: 27 (648 headache-free hours) Patient reduction in overall migraine days: Yes Patient reduction in moderate-severe migraine days: Yes Patient reduction of headache hours by 100 hours or more: Yes (reduction of 528 hours) Individual has obtained clinical benefit deemed significant by individual or prescriber (Y/N): Yes Patient's quality of life and ability to perform ADLs has improved (Y/N): Yes Side effects: none Wearing off: Yes - 11 weeks after treatment The patient has been assessed for disorders which could contribute to breathing or swallowing difficulty, and there is no contraindication with PREEMPT Botox. There is no documented allergic reaction/hypersensitivity to any botulinum toxin and there is no active infection at proposed injection site. HEADACHE SCORES: 12/03/2020 04/04/2024 Headache Questions ER visits since last office visit: 0 Hospital stays since last office visit 0 Limited ADLs in the last month: 2 Days missed from work or school in the last month: 0 Days headache pain free in the last month: 28 Days per month with ALL of the following symptoms - decreased productivity, light sensitivity and nausea: 2 Initial improvement of headache after botox injection at last visit: Not applicable, I did not have a botox injection at my last visit Very much improved PRN medication usage in the last month: 0 5 Patient impression of improvement since last visit: Not applicable, this is my first visit Very much improved 12/03/2020 04/04/2024 07/04/2024 HIT-6 HIT-6 63 (Severe impact) 60 (Severe impact) 63 (Severe impact) 12/03/2020 04/04/2024 07/04/2024 NIKKIE - 2/7 SCORES NIKKIE-2 Score 1 2 6 NIKKIE-7 Score 21 04/04/2024 07/04/2024 Migraine Specific QOL - Higher scores indicate better HRQL Role Function-Restrictive Transformed Score (range: 0-100) 60 60 Role Function-Preventive Transformed Score (range: 0-100) 60 60 Emotional Function Transformed Score (range: 0-100) 60 60 12/03/2020 04/04/2024 07/04/2024 PHQ-9 Score 4 1 5 BP 115/74 Pulse 76 Wt 84.1 kg (185 lb 6.5 oz) LMP (LMP Unknown) SpO2 95% BMI 31.83 kg/m Patient name: Rosalva Huang : 1990 ALLERGIES Allergen Reactions Clindamycin Hives Diffuse hives and angioedema of upper lip within 30 minutes of receiving 1st dose. Doxycycline Hives Diffuse hives 30 minutes after 1st dose. Diffuse hives and x1 episode of emesis 30 minutes after 2nd dose. Fluconazole Rash Required IV diphenhydramine 01/06/2025 Keflex [Cephalexin] Anaphylaxis 03/13/2025 Tolerated graded dose amoxicillin challenge Diffuse rash with upper lip and tongue swelling 15 minutes after first dose. Onion GI Upset Sulfamethoxazole-Tr* Hives Vancomycin Itching Flushing and pruritus consistent with vancomycin infusion reaction. Please refer to Allergy note from 01/05/2025 for details. Adhesive Tape (Rita* Rash, Itching Patient reports unable to tolerate band-aids after a procedure. She noted redness and itching at site of band aid. Mosquitos Swelling Promethazine Unknown Other Reaction(s): GI Upset Sunscreen Rash Tingle tanning lotion Zyrtec [Cetirizine * Hives, Other: See Comments Hives and palpitations within 30 minutes of 1st dose. Tolerates Benadryl without issue. No contraindication to trying other antihistamines such as Arthur or Claritin. UNIVERSAL PROTOCOL / SAFETY CHECKLIST Procedure: Onabotulinum toxin A for migraine Informed Consent Consent Obtained: Written [place] Protocol A moment to CARE was completed SIGN IN Personnel directly involved with the procedure wore the appropriate PPE Special Equipment: N/A Patient/Surrogate Stated/Verified: Patient name, Date of , Relevant allergies and Intended procedure TIME OUT No relevant labs, photos, and/or imaging studies were applicable for review. Consent documented and matches the intended procedure No correct side/site applicable for marking and visibility. Medications required for procedure verified. No fire risk assessment and interventions applicable. No implant(s) inserted. SIGN OUT No specimen collected. Written Consent Obtained: Written LOT #: [id number] Expiration Date: Month: 10 Year: 2026 Injection Sites Left (Units) Left (Sites) Right (Units) Right (Sites) TOTAL (Units) Manager Mall 5 1 5 1 10 Procerus Units: 5 Sites: 1 5 Frontalis 10 2 10 2 20 Temporalis optional follow the pain 20 15 4 3 20 10 4 2 65 Occipitalis optional follow the pain 15 10 3 2 15 10 3 2 50 Cervical PSP 10 2 10 2 20 Trapezius 15 3 15 3 30 Total Units used: 200 Total Units wasted: 0 Prior Therapies Duration of Use Dose Side effect Other Therapies Nerve blocks Analgesic Diclofenac (Voltaren, Cataflam, Cambia) Hydrocodone/Acetaminophen (Vicodin, [employer]) Anti-Anxiety Alprazolam (Xanax, Niravam) Diazepam (Valium) Anti-Convulsant Lamotrigine (Lamictal) Topiramate (Topamax, Trokendi XL, Qudexy) Anti-Depressant and Antipsychotic Quetiapine (Seroquel) Antiemetics Ondansetron Promethazine Anti-Migraine Rizatriptan (Maxalt) Sumatriptan (Imitrex, Sumavel) GEPANTS Rimegepant (Nurtec) Supplements CoQ10 Magnesium Riboflavin Other Medications Dexamethasone (Decadron) Methylprednisolone (Medrol) Prednisone Over the Counter Medications Acetaminophen (Tylenol) Ibuprofen (Advil, Motrin) Jaja Moss APRN.CAGER OPERATOR [facility] 03-29-2025 Procedure note Images from the original note were not included. Headache Center Follow-up Visit Current Preventive: botox Change needed for current preventive? No Current Abortive: ubrelvy - not effective Miscellaneous Patient Concerns: Plans to have her IUD removed soon and try for . Needs a new rescue medication but does no know what to take since she may be trying to conceive. Discussion of Botox in : Extensive risk-benefit analysis took place as part of informed consent and Botox for migraine is NOT FDA approved for use in . We discussed the limited available data for the use of onabotulinum toxin A for the treatment of chronic migraine in and that no well controlled human studies have been done. We discussed that after intramuscular or subcutenous injection, the toxin is not expected to appear in the systemic circulation. Therefore it is unlikely to cross the placenta to the fetus. We also reviewed the small but growing number of published reports about the use of Botox in (cited below). Overall the literature does not show an increased risk of defects or poor maternal or outcomes, however the number of cases is still too small to identify an increase in rare but potentially serious events and the majority of literature reports exposure prior to or in the first trimester only. Additionally, these reports are not solely on patients receiving Botox per PREEMPT protocol and included patients with exposure for other indications. Patient wishes to proceed with Botox PREEMPT protocol and informed consent signed in the chart. Selected studies (this is not a comprehensive list): Leidy HURTADO, Russell RS, Umang A, Deb GARZON, Michael L, Jose I, Eron H. outcomes following exposure to onabotulinumtoxinA. Pharmacoepidemiol Drug Saf. 2016.? Holden HT, Darian M, Rosy F. OnabotulinumtoxinA for chronic migraine during : a real world experience on 45 patients. J Headache Pain. 2020;21(1):129. This study reviews the largest cohort of people with migraine documented who received botox during to date.? Ck CLINE, Harry PM. OnabotulinumtoxinA successfully used as migraine prophylaxis during : a case report. [facility] ExpertBeacon. 2014;179(6):e703-4. Longest reported follow-up period for a child whose mother received BoNTA during . Impression: Chronic migraine without aura, intractable, without status migrainosus (primary encounter diagnosis) Plan: - try periactin 4 - 8 mg as needed for migraine - Botox today (see procedure note below) Follow-Up Onabotulinum Toxin A (BotoxTM) for Migraine Indication: Chronic Intractable Migraine Treatment #: 6 Referral Expiration: 06/07/2025 Prior to the initiation of the FIRST treatment with Onabotulinum Toxin A, the patient reported the following average headache frequency over the past 3 MONTHS: Number of moderate-severe migraine days/month: 25 Number of mild migraine days/month: 0 Number of headache free days/month: 5 (120 headache-free hours) After treatment with Onabotulinum Toxin A: Number of moderate-severe migraine days/month: 3 Number of mild migraine days/month: 0 Number of headache free days/month: 27 (648 headache-free hours) Patient reduction in overall migraine days: Yes Patient reduction in moderate-severe migraine days: Yes Patient reduction of headache hours by 100 hours or more: Yes (reduction of 528 hours) Individual has obtained clinical benefit deemed significant by individual or prescriber (Y/N): Yes Patient's quality of life and ability to perform ADLs has improved (Y/N): Yes Side effects: none Wearing off: Yes - 11 weeks after treatment The patient has been assessed for disorders which could contribute to breathing or swallowing difficulty, and there is no contraindication with PREEMPT Botox. There is no documented allergic reaction/hypersensitivity to any botulinum toxin and there is no active infection at proposed injection site. HEADACHE SCORES: 12/03/2020 04/04/2024 Headache Questions ER visits since last office visit: 0 Hospital stays since last office visit 0 Limited ADLs in the last month: 2 Days missed from work or school in the last month: 0 Days headache pain free in the last month: 28 Days per month with ALL of the following symptoms - decreased productivity, light sensitivity and nausea: 2 Initial improvement of headache after botox injection at last visit: Not applicable, I did not have a botox injection at my last visit Very much improved PRN medication usage in the last month: 0 5 Patient impression of improvement since last visit: Not applicable, this is my first visit Very much improved 12/03/2020 04/04/2024 07/04/2024 HIT-6 HIT-6 63 (Severe impact) 60 (Severe impact) 63 (Severe impact) 12/03/2020 04/04/2024 07/04/2024 NIKKIE - 2/7 SCORES NIKKIE-2 Score 1 2 6 NIKKIE-7 Score 21 04/04/2024 07/04/2024 Migraine Specific QOL - Higher scores indicate better HRQL Role Function-Restrictive Transformed Score (range: 0-100) 60 60 Role Function-Preventive Transformed Score (range: 0-100) 60 60 Emotional Function Transformed Score (range: 0-100) 60 60 12/03/2020 04/04/2024 07/04/2024 PHQ-9 Score 4 1 5 BP 115/74 Pulse 76 Wt 84.1 kg (185 lb 6.5 oz) LMP (LMP Unknown) SpO2 95% BMI 31.83 kg/m Patient name: Rosalva Huang : 1990 ALLERGIES Allergen Reactions Clindamycin Hives Diffuse hives and angioedema of upper lip within 30 minutes of receiving 1st dose. Doxycycline Hives Diffuse hives 30 minutes after 1st dose. Diffuse hives and x1 episode of emesis 30 minutes after 2nd dose. Fluconazole Rash Required IV diphenhydramine 01/06/2025 Keflex [Cephalexin] Anaphylaxis 03/13/2025 Tolerated graded dose amoxicillin challenge Diffuse rash with upper lip and tongue swelling 15 minutes after first dose. Onion GI Upset Sulfamethoxazole-Tr* Hives Vancomycin Itching Flushing and pruritus consistent with vancomycin infusion reaction. Please refer to Allergy note from 01/05/2025 for details. Adhesive Tape (Rita* Rash, Itching Patient reports unable to tolerate band-aids after a procedure. She noted redness and itching at site of band aid. Mosquitos Swelling Promethazine Unknown Other Reaction(s): GI Upset Sunscreen Rash Tingle tanning lotion Zyrtec [Cetirizine * Hives, Other: See Comments Hives and palpitations within 30 minutes of 1st dose. Tolerates Benadryl without issue. No contraindication to trying other antihistamines such as Arthur or Claritin. UNIVERSAL PROTOCOL / SAFETY CHECKLIST Procedure: Onabotulinum toxin A for migraine Informed Consent Consent Obtained: Written [place] Protocol A moment to CARE was completed SIGN IN Personnel directly involved with the procedure wore the appropriate PPE Special Equipment: N/A Patient/Surrogate Stated/Verified: Patient name, Date of , Relevant allergies and Intended procedure TIME OUT No relevant labs, photos, and/or imaging studies were applicable for review. Consent documented and matches the intended procedure No correct side/site applicable for marking and visibility. Medications required for procedure verified. No fire risk assessment and interventions applicable. No implant(s) inserted. SIGN OUT No specimen collected. Written Consent Obtained: Written LOT #: [id number] Expiration Date: Month: 10 Year: 2026 Injection Sites Left (Units) Left (Sites) Right (Units) Right (Sites) TOTAL (Units) Manager Mall 5 1 5 1 10 Procerus Units: 5 Sites: 1 5 Frontalis 10 2 10 2 20 Temporalis optional follow the pain 20 15 4 3 20 10 4 2 65 Occipitalis optional follow the pain 15 10 3 2 15 10 3 2 50 Cervical PSP 10 2 10 2 20 Trapezius 15 3 15 3 30 Total Units used: 200 Total Units wasted: 0 Prior Therapies Duration of Use Dose Side effect Other Therapies Nerve blocks Analgesic Diclofenac (Voltaren, Cataflam, [place]ia) Hydrocodone/Acetaminophen (Vicodin, [employer]) Anti-Anxiety Alprazolam (Xanax, Niravam) Diazepam (Valium) Anti-Convulsant Lamotrigine (Lamictal) Topiramate (Topamax, Trokendi XL, Qudexy) Anti-Depressant and Antipsychotic Quetiapine (Seroquel) Antiemetics Ondansetron Promethazine Anti-Migraine Rizatriptan (Maxalt) Sumatriptan (Imitrex, Sumavel) GEPANTS Rimegepant (Nurtec) Supplements CoQ10 Magnesium Riboflavin Other Medications Dexamethasone (Decadron) Methylprednisolone (Medrol) Prednisone Over the Counter Medications Acetaminophen (Tylenol) Ibuprofen (Advil, Motrin) Jaja Moss APRN.CAGER OPERATOR documented in this encounter [facility] 03-29-2025 Instructions Jaja Moss APRN.CAGER OPERATOR - 03/29/2025 2:16 PM EDT Images from the original note were not included. Headache [facility] Facial [facility] Frequently Asked Questions about Botox Treatment for Chronic Migraine What is Botox and how does it work for chronic migraine? Botox (short for OnabotulinumtoxinA) is a medication that works by blocking pain signals. When injected into muscles, botox travels along the nerves connected to those muscles and towards the brainstem to reduce the release of pain inducing chemicals in the central nervous system. Botox helps block pain signals at the level of the brain. For chronic migraines, Botox is injected into 7 specific muscles in the head and neck using very small needles. By calming overactive nerve activity and blocking pain signals, Botox can help prevent migraines and can significantly lower the number of headaches you might experience. Botox may reduce migraine frequency and severity significantly for 50-70% of chronic migraine patients. Where are the injections? Botox injections, for chronic migraine, involve a series of 31 injections into 7 different muscles using very small needles. These injections occur around the forehead, temples, back of the head, the neck, and shoulder area. What are the possible side-effects? Botox has very minimal side effects: the most common may be pain at the injection sites, mild bruising and a small amount of bleeding at the injection sites, mild headache or neck pain after treatment, You may experience flu-like symptoms after the injections, but this should be transient and will only last a few days. Muscle weakness around the injection site can occur. Temporary drooping eyelids (ptosis) is a rare but possible side-effect Does it hurt? The needles used in the procedure are extremely small and most patients tolerate the procedure with minimal discomfort. Some patients report mild pinching or stinging. How long does the procedure take? Botox is an outpatient procedure: no sedation is given, and you can drive yourself to/from your appointment - you will leave the same day! The duration of the procedure for the injections, once started, is typically 15-20 minutes. How long will it take until the medication takes effect and I feel better? The Botox medication starts to kick into effect after about 1-2 weeks, it is not immediate. The first or second round of Botox injections may not provide much relief, but it is recommended to continue for at least a total of 2-3 rounds of injections, occurring every 12 weeks, to assess the benefit, prior to stopping the injections. After completion of 3 rounds of injections, you should make an appointment with your primary provider to discuss how well Botox works for you, and develop a long-term treatment plan. Insurance also requires this documentation for Botox renewals. Please be sure to keep a headache diary to discuss with your provider How long does the medication last? The effects of Botox for chronic migraines usually last around 10 to 12 weeks. After this time, you may start to notice that your migraines return or become more frequent. Many people get Botox injections every 12 weeks (84 -91 days) to maintain its effectiveness in preventing migraines, based on what insurance allows. What about my other medications? At the start of Botox therapy, you will continue the medication plan as discussed with your provider. Please plan to make a follow-up appointment after the 3rd round of Botox to discuss long-term planning of your preventive medications. Is it approved by insurance? Many insurance companies will cover Botox treatment if a patient meets criteria for chronic migraine headache and has already tried other preventative options. It is important to share all previously tried medications, including durations of trials and why you stopped taking the medication, with your provider, to help with this documentation. Please be aware that an approval or notification that no pre-certification is required is not equivalent to 100% coverage of payment by your insurance. We encourage you to check with your insurance company for specific benefit details before starting Botox to understand your coverage and any [id number] costs. Botox injections are scheduled every 12-13 weeks, per insurance. How long will it take to hear back about insurance approval? Once your provider has referred you for Botox treatment, our team will start the authorization process and contact you within 3-5 business days to schedule a Botox appointment in about 4 weeks while awaiting a decision from insurance. If you haven t heard from a mill order scheduler within 1-2 weeks, please call our office at [phone] (select option 1 for Botox schedulers). Feel free to contact us with any other questions or concerns about Botox: [employer] [phone] or [email or web address] Once my appointment is scheduled, how should I prepare? Botox treatments are quick, but you may want to plan for a few quiet hours or even a day or two of rest after the treatment to see how you individually response. Some people feel sore or tired, especially after the first treatments. Stock up on your acute rescue migraine treatments; though it is rare, migraines can flare in the few days immediately after administration of the treatment Please do not apply any makeup prior to your appointment Wear comfortable clothing: Since the injections are given in your head, neck and upper shoulder area, wear something that allows easy access to these areas. If you are also considering or also already undergoing cosmetic Botox (such as for wrinkles), it s important to let your provider know so you can discuss ideal timing of the Botox injections. We encourage you to check with your insurance company for specific benefit details before starting Botox to understand your coverage and any [id number] costs. Do I need a speedboat driver? No; however, if it is the first time you are receiving Botox, it is encouraged to have someone with you for support. What to avoid after the procedure? Lying down: For the first 4 hours after your treatment, we recommend you do not lie down or put pressure on your head, neck, or the areas where you had the Botox injections. This helps prevent the Botox from moving to other areas. Massaging the treated areas: Avoid rubbing or massaging your face, head, neck, or the areas where you had the Botox injections for 24 hours. This helps prevent the Botox from spreading to other areas. Washing the treated areas: Avoid rubbing or applying pressure to your head, neck, face or the areas where you had the Botox injections for 24 hours. This helps prevent the Botox from spreading to other areas. Strenuous exercise: Avoid intense physical activities like running, heavy lifting, or anything that causes you to sweat heavily for at least 24 hours. Hair treatments or dyes: Avoid getting any hair treatments, including coloring or chemical treatments, for 24 hours before or after your Botox injections. The chemicals from these treatments can affect the Botox. When should I call my healthcare provider with concerns after receiving Botox? In general, side-effects are rare. Please call your provider s office if you experience any side-effects that are bothersome to you or persistent: Severe headache that doesn t go away or gets worse. Vision changes: such as blurry vision or difficulty seeing clearly. Drooping eyelid or muscle weakness that doesn t improve or becomes worse. Trouble swallowing or breathing difficulties. Severe pain or swelling at the injection sites that doesn t go away. Signs of an allergic reaction, such as rash, itching, or difficulty breathing Will I need Botox my whole life? Botox for chronic migraines is a long-term treatment, but it is not necessarily something you will need to use for the rest of your life. Many people use Botox treatments for several years to help prevent migraines. Over time, you and your provider may find that the treatment helps so much that you can space out the timing of injections or stop them altogether as your migraine condition calms down. Your provider will regularly check how well the Botox is working for you, and together you can decide how often you need treatments. Can I receive cosmetic Botox while getting Botox for my migraines? Please discuss these details with your primary provider. To prevent the development of antibodies against onabotulinumtoxinA and potential overdose, careful coordination for timing of the procedures close together is necessary, to avoid potential complications and maximize benefit. Can I get Botox while or ? Botox for migraine is not FDA approved for use in and there is limited available data for the analysis of the use of onabotulinum toxin A for the treatment of chronic migraine in . Please discuss the details with your primary provider regarding treatment if you are planning to conceive, currently , or . documented in this encounter [facility] 03-28-2025 Note [facility] 03-24-2025 History of Present illness Narrative Reason for Visit: Individual Counseling Video conference visit (Leia.). Patient identity confirmed via name and date of . Potential risks and benefits discussed with patient/guardian, who verbalized consent for telehealth encounter. Patient location: home. 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 CL reports feeling anxious about starting new job March 27 and working for two weeks from 8-5. CL reports limited use of alcohol since last appt. F41.1,F41.0 Generalized anxiety disorder with panic attacks (primary encounter diagnosis) Mental Status Exam: Within normal limits. Intervention: The following goals were addressed today: GOAL: "I want better ccping skills when I have intrusive thoughts and reduce panic" and GOAL: Identify and discuss unresolved life conflicts (see measurable component below): Next Care Plan Review Date: 07/19/2025 Provider addressed Rosalva's concerns related to the presenting problem above through the following therapeutic interventions: Active and reflective listening, Assist in problem solving, Communication skills, and Symptom management, skill building. Acute risk for harm to self/others: Low C-SSRS Screen Response/Impression: Rosalva demonstrated minimal improvement in session today as evidenced by listing professional goals for self and plans to start to start work following week. Overall impression of treatment demonstrates minimal improvement as evidenced by mindfulness use of alcohol. CL became frustrated within appt after kids were fighting and presented overwhelmed by yelling and self reports TH asked open ended questions about co-parenting and communication while staying at children's Dad's house to gaim better insight about in-home dynamics. BASIS-24 Clinical Severity - Most Recent Administration Date Administered: 01/12/2025 Domain Subscore & Severity Depression/Functioning 1.15 - Moderate Interpersonal Relationships 1.08 - Moderate Self-Harm 0 - Low Emotional Lability 0.22 - Low Psychosis 0 - Low Alcohol/Drug Use 0.47 - Moderate BASIS-24 Overall Score 0.75 - Low Reference: BASIS-24 Behavior and Symptom Identification Scale: Clinical Cut Scores. Jama Patel (2018). BASIS-24 results were reviewed. Plan: Rosalva's follow-up/homework: cL will coordinate for any changes to schedule and connect to support system if needed. Provider's follow-up/referrals/action items: N/A Next appointment with this provider: 04/11/25 documented in this encounter [facility] Phone: 03-20-2025 Telephone encounter Note Reason for Call: Patient calling to report difficulty swallowing, and "bright red" color to neck/chest. Patient has a history of anaphylaxis, prescribed epi-pens. Patient reports onset of symptoms 15 minutes prior to call, and states that she took a Klonopin approx 20 minutes prior to call (has taken this medication previously without any concern). Patient also reports having a glass of wine 5 hours prior to call. Outcome: Advised patient to call 911 now for immediate medical attention. Advised patient to have epi-pen available for administration as needed. Patient verbalized understanding, states that she will call 911 for ambulance transport to [place] [facility]. Reason for Disposition Difficulty swallowing, drooling or slurred speech Protocols used: [id number] [facility] 03-20-2025 Miscellaneous Notes Reason for Call: Patient calling to report difficulty swallowing, and "bright red" color to neck/chest. Patient has a history of anaphylaxis, prescribed epi-pens. Patient reports onset of symptoms 15 minutes prior to call, and states that she took a Klonopin approx 20 minutes prior to call (has taken this medication previously without any concern). Patient also reports having a glass of wine 5 hours prior to call. Outcome: Advised patient to call 911 now for immediate medical attention. Advised patient to have epi-pen available for administration as needed. Patient verbalized understanding, states that she will call 911 for ambulance transport to [place] [facility]. Reason for Disposition Difficulty swallowing, drooling or slurred speech Protocols used: [id number] documented in this encounter [facility] 03-20-2025 History of Present illness Narrative Associated Problem(s): Generalized anxiety disorder with panic attacks Pt reports symptoms are improved generally with continued panic attacks 3x/wk. Reports klonopin stopped working. She hasn't taken it recently for this reason, but will try it in future if panic attack is severe. Not using hydroxyzine at all currently. Orders: RN NURSING PER 15 MIN escitalopram (LEXAPRO) 20 mg tablet; Take 1 Tablet by mouth once daily Associated Problem(s): Bipolar disorder in full remission ([facility]) Will increase risperdal to 3 mg for mood stability and off label for intrusive thoughts associated with OCD. Orders: risperiDONE (RISPERDAL) 3 mg tablet; Take 1 Tablet by mouth 2 (two) times daily lamoTRIgine (LAMICTAL) 200 mg tablet; Take 1 Tablet by mouth once daily Associated Problem(s): Obsessive-compulsive disorder, unspecified Pt reports she has had less obsessive and intrusive thoughts since increasing dosage of lexapro. Continue lexapro and increase Rispderal today as described above. Orders: risperiDONE (RISPERDAL) 3 mg tablet; Take 1 Tablet by mouth 2 (two) times daily escitalopram (LEXAPRO) 20 mg tablet; Take 1 Tablet by mouth once daily Subjective Video conference visit (Leia.). Patient identity confirmed via name and date of . Potential risks and benefits discussed with patient/guardian, who verbalized consent for telehealth encounter. Patient location: home. Chief Complaint: Psychiatric Med Management HPI 02/27/25: Rosalva Huang is a 35 year old female with h/o bipolar disorder and NIKKIE, presenting for f/u visit. Pt reports that the klonopin is no longer effective. Says it worked for a couple weeks but then no longer. Having 3 panic attacks per week lately. Happens more in the evening after the kids go to bed. Since lexapro dosage was increased has very little intrusive or obsessive thoughts. Pt reports she is coping well with the anxiety for the most part. She notes that after taking Risperdal she has felt calmer and inquires about possible dose increase today. Starts her new job at [employer] on March 27. 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 Thinking of attending nursing school since the clinic has a program where they will pay for it. Feels supported by her aunt, with whom she lives on the weekdays. States she and the kids return to her ex-'s place on weekends. This arrangement has been working out fairly well per pt. No recent issues or discord reported. Pt was seen several times in ED since her last appt. Reporting si/sx of allergic reactions. Per pt she is no longer on antibiotics and has not had any recurrence of allergy symptoms in the past week or so. Denies any current si/sx of infection nor any of an allergic reaction currently. Interim substance use history: Social History Substance and Sexual Activity Drug Use Not Currently Types: Opioids, Marijuana Comment: When she was 17 she had a problem with marijuana and prescription drug abuse (snorted Xanax and abused pain pills) and she got in trouble at 17 and at 18 she stopped Tobacco History Tobacco Use Smoking Status Never Smokeless Tobacco Never Social History Substance and Sexual Activity Alcohol Use Not Currently Comment: 2 months ago 01/30/25: Copied forward from [facility] (Dec admission): ALLERGIES Allergen Reactions Clindamycin Hives Diffuse hives and angioedema of upper lip within 30 minutes of receiving 1st dose. Doxycycline Hives Diffuse hives 30 minutes after 1st dose. Diffuse hives and x1 episode of emesis 30 minutes after 2nd dose. Fluconazole Rash Required IV diphenhydramine 01/06/2025 Onion GI Upset Vancomycin Itching Flushing and pruritus consistent with vancomycin infusion reaction. Please refer to Allergy note from 01/05/2025 for details. Adhesive Tape (Rita* Rash, Itching Patient reports unable to tolerate band-aids after a procedure. She noted redness and itching at site of band aid. Mosquitos Swelling Phenergan [Prometha* GI Upset Sunscreen Rash Tingle tanning lotion Zyrtec [Cetirizine * Hives, Other: See Comments Hives and palpitations within 30 minutes of 1st dose. Tolerates Benadryl without issue. No contraindication to trying other antihistamines such as Arthur or Claritin Meds: Outpatient Medications Prior to Visit Medication Sig Dispense Refill escitalopram (LEXAPRO) 20 mg tablet Take 1 Tablet by mouth once daily 30 Tablet 0 lamoTRIgine (LAMICTAL) 200 mg tablet Take 1 Tablet by mouth once daily 30 Tablet 0 risperiDONE (RISPERDAL) 0.5 mg tablet Take 1 Tablet by mouth once daily as needed for other reason (hypomanic symptoms) 30 Tablet 0 risperiDONE (RISPERDAL) 2 mg tablet Take 1 Tablet by mouth nightly at bedtime Take together with 0.5 mg for total 2.5 mg daily dosage 30 Tablet 0 clonazePAM (KLONOPIN) 1 mg tablet Take 1 Tablet by mouth once daily as needed for anxiety 30 Tablet 0 ACNE MEDICATION 5 % EPINEPHrine (EPIPEN) 0.3 mg/0.3 mL pen injector Inject 0.3 mg into the muscle hydrocortisone 2.5 % cream hydrOXYzine HCL (ATARAX) 25 mg tablet Take 1 Tablet by mouth 3 (three) times daily as needed for anxiety 90 Tablet 0 ubrogepant (UBRELVY) 100 mg tab Take 100 mg by mouth onabotulinumtoxinA (BOTOX) 200 unit solr injection Inject 200 Units into the skin Every 12 Weeks methylcellulose, laxative, (CITRUCEL) 500 mg tab tab Take 1,000 mg by mouth every 8 (eight) hours as needed rimegepant (NURTEC ODT) 75 mg TbDi Take 75 mg by mouth acetaminophen (TYLENOL) 500 mg tablet ONETOUCH VERIO TEST STRIPS strips No facility-administered medications prior to visit. Objective 06/13/2024 1:59 PM BP 106/78 BP Site Left Arm BP Position Sitting Pulse 85 Weight 158 lb (71.7 kg) % Change in weight NA Height 5' 2" (157.5 cm) Estimated body mass index is 28.9 kg/m as calculated from the following: Height as of 06/13/24: 5' 2" (1.575 m). Weight as of 06/13/24: 158 lb (71.7 kg). Mental Status Exam Appearance is appropriate for circumstance and neat. as able to visualize on videoconference General Health is generally good. as able to visualize on videoconference Eye Contact is good. as able to visualize on video Motor Activity is unremarkable. as able to visualize on video Speech is unremarkable. Affect is full range and mood-congruent. Reported Mood is neutral/euthymic. Thought Content is unremarkable does not have suicidal ideations, does not have homicidal ideations and does not have delusions. Thought Process is unremarkable. Perception is unremarkable does not have hallucinations. Attention is alert. Demeanor is appropriate for situation and cooperative. Insight is appropriate. Judgement is appropriate. Orientation is fully oriented. Memory is grossly intact. MSE Comments: Videoconferencing limited full visualization of facial expressions. Unable to assess gait as pt was seated for session. Data Reviewed (labs, BASIS-24, AIMS, outside records, etc): Reviewed records from most recent hospitalization(s). Lab Results Component Value Date CHOL 207 (H) 06/13/2024 LDL 135 (H) 06/13/2024 HDL 48 06/13/2024 TRIGLYC 135 06/13/2024 HGBA1C 5.4 06/13/2024 CREATININE 0.72 02/27/2025 EGFR 113 02/27/2025 BASIS-24 Clinical Severity - Most Recent Administration Date Administered: 01/12/2025 Domain Subscore & Severity Depression/Functioning 1.15 - Moderate Interpersonal Relationships 1.08 - Moderate Self-Harm 0 - Low Emotional Lability 0.22 - Low Psychosis 0 - Low Alcohol/Drug Use 0.47 - Moderate BASIS-24 Overall Score 0.75 - Low Reference: BASIS-24 Behavior and Symptom Identification Scale: Clinical Cut Scores. Jama Patel (2018). Last Menstrual Period: Assessment Safety Risk Assessment: Acute risk for harm to self/others: Low Chronic risk for harm to self/others: Low No SI/intent/plan. No thoughts of hurting others/HI. No access to weapons. Assessment & Plan Generalized anxiety disorder with panic attacks Pt reports symptoms are improved generally with continued panic attacks 3x/wk. Reports klonopin stopped working. She hasn't taken it recently for this reason, but will try it in future if panic attack is severe. Not using hydroxyzine at all currently. Orders: RN NURSING PER 15 MIN escitalopram (LEXAPRO) 20 mg tablet; Take 1 Tablet by mouth once daily Bipolar disorder in full remission, most recent episode unspecified type ([facility]) Will increase risperdal to 3 mg for mood stability and off label for intrusive thoughts associated with OCD. Orders: risperiDONE (RISPERDAL) 3 mg tablet; Take 1 Tablet by mouth 2 (two) times daily lamoTRIgine (LAMICTAL) 200 mg tablet; Take 1 Tablet by mouth once daily Obsessive-compulsive disorder, unspecified type Pt reports she has had less obsessive and intrusive thoughts since increasing dosage of lexapro. Continue lexapro and increase Rispderal today as described above. Orders: risperiDONE (RISPERDAL) 3 mg tablet; Take 1 Tablet by mouth 2 (two) times daily escitalopram (LEXAPRO) 20 mg tablet; Take 1 Tablet by mouth once daily Plan Risks, benefits, and alternatives were discussed. Patient/guardian understood and agreed with the plan. Reviewed Safety Plan: Call 911 or go to ED if in crisis. Advised of availability of after hours RN by calling main number for [facility]. Reminded pt she is overdue for annual in-person visit. She agrees to come to the office for her next appt and will plan to obtain metabolic screening labs and UDS at that time. Follow-up: No follow-ups on file. Upcoming Appointments: Appointments for the next 13 months 03/24/2025 11:00 AM COUNSELING STANDARD [facility] VASQUEZ Whaley 45 min 04/24/2025 9:20 AM MEDICATION MANAGEMENT [facility] [id number] NURSE LUCI MONTANA 20 min 04/24/2025 9:40 AM MEDICATION MANAGEMENT [facility] Herberth Montana DO 20 min Reason for visit: Psychiatric Med Management Rosalva presents prior to their psychiatry provider visit to evaluate medication effectiveness, update medical history, and review overall treatment status. Video conference visit (Leia.). Patient identity confirmed via name and date of . Potential risks and benefits discussed with patient/guardian, who verbalized consent for telehealth encounter. Patient location: home. Subjective Interval history and patient concerns: Client reports all her allergy symptoms went away. She is no longer taking benadryl or arthur. Reports she is currently living with her aunt and the kids. Reports things are going well with Adri. Reports the anxiety has been bad and reports the klonopin does nothing. Risperdal keeping the intrusive thoughts under control. Reports she would like klonopin discontinued. No manic episodes. Denies depression symptoms. Sleep is good. Denies thoughts of self harm or harming others. Appetite is good. Managing kids fine. Reports she has a car she is able to drive now. Starts job on March 27. No hallucinations or delusional thoughts. Current Outpatient Medications Medication Instructions acetaminophen (TYLENOL) 500 mg tablet No dose, route, or frequency recorded. ACNE MEDICATION 5 % CitruceL 1,000 mg, Every 8 hours PRN clonazePAM (KLONOPIN) 1 mg, oral, Daily PRN EPINEPHrine (EPIPEN) 0.3 mg escitalopram (LEXAPRO) 20 mg, oral, Daily hydrocortisone 2.5 % cream hydrOXYzine HCL (ATARAX) 25 mg, oral, 3 times daily PRN lamoTRIgine (LAMICTAL) 200 mg, oral, Daily Nurtec ODT 75 mg onabotulinumtoxinA (BOTOX) 200 Units, EVERY 12 Weeks ONETOUCH VERIO TEST STRIPS strips No dose, route, or frequency recorded. risperiDONE (RISPERDAL) 0.5 mg, oral, Daily PRN risperiDONE (RISPERDAL) 2 mg, oral, NIGHTLY, Take together with 0.5 mg for total 2.5 mg daily dosage Ubrelvy 100 mg Reported medication adherence: yes Reported medication side effects: denies New medical problems or history: denies Objective Vitals not currently . Mental Status Exam: Behavior: generally relaxed and engaged, cooperative Speech: unremarkable Mood: neutral Affect: appropriate for circumstance Thought content: unremarkable Perception: unremarkable Additional objective data: BASIS-24 Clinical Severity - Most Recent Administration Date Administered: 01/12/2025 Domain Subscore & Severity Depression/Functioning 1.15 - Moderate Interpersonal Relationships 1.08 - Moderate Self-Harm 0 - Low Emotional Lability 0.22 - Low Psychosis 0 - Low Alcohol/Drug Use 0.47 - Moderate BASIS-24 Overall Score 0.75 - Low Reference: BASIS-24 Behavior and Symptom Identification Scale: Clinical Cut Scores. Jama Patel (2018). BASIS-24 results were not reviewed. Assessment Provider diagnosis and treatment plan reviewed. F41.1,F41.0 Generalized anxiety disorder with panic attacks (primary encounter diagnosis) F31.70 Bipolar disorder in full remission, most recent episode unspecified type ([facility]) F42.2 Mixed obsessional thoughts and acts Comment: Risk Assessment: Acute risk for harm to self/others: Low Plan Verified patient medications and allergies; updated patient medical history in medical record. Provided report to Dr. Montana regarding patient concerns and status. Follow up as scheduled Upcoming appointments: Appointments for the next 13 months 03/24/2025 11:00 AM COUNSELING STANDARD [facility] Whaley 45 min 04/24/2025 9:20 AM MEDICATION MANAGEMENT [facility] [id number] NURSE RUBÉN 20 min 04/24/2025 9:40 AM MEDICATION MANAGEMENT [facility] Herberth Montana DO 20 min documented in this encounter [facility] [employer] Phone: 03-13-2025 History of Present illness Narrative Client missed scheduled follow up with Dr. Montana. Client sent My Chart that she was having video issues. Asked for a phone call. Called x2 but client did not answer and vm was full. Client rescheduled for 03/20/25. My Chart message sent. documented in this encounter [facility] [employer] Phone: 03-13-2025 Note [facility] 03-13-2025 History of Present illness Narrative Associated Problem(s): Bipolar disorder in full remission ([facility]) Patient reports mood is stable. Continue current med regimen. Orders: RN NURSING PER 15 MIN lamoTRIgine (LAMICTAL) 200 mg tablet; Take 1 Tablet by mouth once daily risperiDONE (RISPERDAL) 0.5 mg tablet; Take 1 Tablet by mouth once daily as needed for other reason (hypomanic symptoms) risperiDONE (RISPERDAL) 2 mg tablet; Take 1 Tablet by mouth nightly at bedtime Take together with 0.5 mg for total 2.5 mg daily dosage Associated Problem(s): Generalized anxiety disorder with panic attacks Panic attacks have persisted and don't respond to ativan nor hydroxyzine. Pt was encouraged to fill klonopin rx and will f/u with RN to assess med response. Orders: escitalopram (LEXAPRO) 20 mg tablet; Take 1 Tablet by mouth once daily Subjective Video conference visit (Leia.). Patient identity confirmed via name and date of . Potential risks and benefits discussed with patient/guardian, who verbalized consent for telehealth encounter. Patient location: home. Chief Complaint: Psychiatric Med Management HPI 02/27/25: Rosalva Huang is a 35 year old female with h/o bipolar disorder and NIKKIE, presenting for f/u visit. Pt seen for add on appt after she reported needing refill on lexapro d/t taking higher dosage and that she took an extra Risperdal. Pt was just seen last week and at that time, klonopin was added d/t pt having severe anxiety/panic symptoms. Pt reports her pharmacy had to order it b/c they didn't have it in stock. Per our last visit, pt went ahead and increased dosage to 20 mg. She recently had a severe panic attack and took a 0.5 mg Risperdal out of desperation and felt much calmer for the rest of the day. She tried hydroxyzine a few times, but it didn't help. 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 Panic attacks frequently come on at night, sometimes triggered by intrusive thoughts about her pills. Does endorse racing thoughts and excessive worrying. Pt denies any symptoms of depression and denies manic/mixed mood symptoms. Sleeping well at night. Does not endorse any si/sx of psychosis. Intrusive/obsessive thoughts have reduced significantly on current med regimen. Denies SI/HI. Pt reports she has been having increased migraines for the past 2 months. Botox had been helpful. Ubrelvy was not helping so she stopped it. Has f/u with Migraine doctor in the next week or two. 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 She will start the training in March for 2 weeks and will be placed on the med/surg floor. She is going to have her aunt watch the kids while she works. Plans to work 36 hrs/wk. They have a program for tuition payment. Interim substance use history: Social History Substance and Sexual Activity Drug Use Not Currently Types: Opioids, Marijuana Comment: When she was 17 she had a problem with marijuana and prescription drug abuse (snorted Xanax and abused pain pills) and she got in trouble at 17 and at 18 she stopped Tobacco History Tobacco Use Smoking Status Never Smokeless Tobacco Never Social History Substance and Sexual Activity Alcohol Use Not Currently Comment: hasn't had anything to drink in a couple months. 01/30/25: Copied forward from [facility] (Dec admission): ALLERGIES Allergen Reactions Clindamycin Hives Diffuse hives and angioedema of upper lip within 30 minutes of receiving 1st dose. Doxycycline Hives Diffuse hives 30 minutes after 1st dose. Diffuse hives and x1 episode of emesis 30 minutes after 2nd dose. Fluconazole Rash Required IV diphenhydramine 01/06/2025 Onion GI Upset Vancomycin Itching Flushing and pruritus consistent with vancomycin infusion reaction. Please refer to Allergy note from 01/05/2025 for details. Adhesive Tape (Rita* Rash, Itching Patient reports unable to tolerate band-aids after a procedure. She noted redness and itching at site of band aid. Mosquitos Swelling Phenergan [Prometha* GI Upset Sunscreen Rash Tingle tanning lotion Zyrtec [Cetirizine * Hives, Other: See Comments Hives and palpitations within 30 minutes of 1st dose. Tolerates Benadryl without issue. No contraindication to trying other antihistamines such as Arthur or Claritin Meds: Outpatient Medications Prior to Visit Medication Sig Dispense Refill clonazePAM (KLONOPIN) 1 mg tablet Take 1 Tablet by mouth once daily as needed for anxiety 30 Tablet 0 escitalopram (LEXAPRO) 10 mg tablet Take 1.5 Tablets by mouth once daily 45 Tablet 1 lamoTRIgine (LAMICTAL) 200 mg tablet Take 1 Tablet by mouth once daily 30 Tablet 0 ondansetron ODT (ZOFRAN-ODT) 4 mg disintegrating tablet TAKE 1 TABLET BY MOUTH EVERY 6 HOURS NEEDED FOR NAUSEA AND VOMITING FOR UP TO 7 DAYS risperiDONE (RISPERDAL) 0.5 mg tablet Take 1 Tablet by mouth once daily as needed for other reason (hypomanic symptoms) 30 Tablet 0 risperiDONE (RISPERDAL) 2 mg tablet Take 1 Tablet by mouth nightly at bedtime Take together with 0.5 mg for total 2.5 mg daily dosage 30 Tablet 0 ACNE MEDICATION 5 % EPINEPHrine (EPIPEN) 0.3 mg/0.3 mL pen injector Inject 0.3 mg into the muscle hydrocortisone 2.5 % cream hydrOXYzine HCL (ATARAX) 25 mg tablet Take 1 Tablet by mouth 3 (three) times daily as needed for anxiety 90 Tablet 0 ondansetron HCL (ZOFRAN) 4 mg tablet ubrogepant (UBRELVY) 100 mg tab Take 100 mg by mouth onabotulinumtoxinA (BOTOX) 200 unit solr injection Inject 200 Units into the skin Every 12 Weeks methylcellulose, laxative, (CITRUCEL) 500 mg tab tab Take 1,000 mg by mouth every 8 (eight) hours as needed rimegepant (NURTEC ODT) 75 mg TbDi Take 75 mg by mouth acetaminophen (TYLENOL) 500 mg tablet ONETOUCH VERIO TEST STRIPS strips No facility-administered medications prior to visit. Objective 06/13/2024 1:59 PM BP 106/78 BP Site Left Arm BP Position Sitting Pulse 85 Weight 158 lb (71.7 kg) % Change in weight NA Height 5' 2" (157.5 cm) Estimated body mass index is 28.9 kg/m as calculated from the following: Height as of 06/13/24: 5' 2" (1.575 m). Weight as of 06/13/24: 158 lb (71.7 kg). Mental Status Exam Appearance is appropriate for circumstance and neat. as able to visualize on videoconference General Health is generally good. as able to visualize on videoconference Eye Contact is good. as able to visualize on video Motor Activity is unremarkable. as able to visualize on video Speech is unremarkable. Affect is full range and mood-congruent. Reported Mood is neutral/euthymic. Thought Content is unremarkable does not have suicidal ideations, does not have homicidal ideations and does not have delusions. Thought Process is unremarkable. Perception is unremarkable does not have hallucinations. Attention is alert. Demeanor is appropriate for situation and cooperative. Insight is appropriate. Judgement is appropriate. Orientation is fully oriented. Memory is grossly intact. MSE Comments: Videoconferencing limited full visualization of facial expressions. Unable to assess gait as pt was seated for session. Data Reviewed (labs, BASIS-24, AIMS, outside records, etc): Reviewed records from most recent hospitalization(s). Lab Results Component Value Date CHOL 207 (H) 06/13/2024 LDL 135 (H) 06/13/2024 HDL 48 06/13/2024 TRIGLYC 135 06/13/2024 HGBA1C 5.4 06/13/2024 CREATININE 0.72 02/27/2025 EGFR 113 02/27/2025 BASIS-24 Clinical Severity - Most Recent Administration Date Administered: 01/12/2025 Domain Subscore & Severity Depression/Functioning 1.15 - Moderate Interpersonal Relationships 1.08 - Moderate Self-Harm 0 - Low Emotional Lability 0.22 - Low Psychosis 0 - Low Alcohol/Drug Use 0.47 - Moderate BASIS-24 Overall Score 0.75 - Low Reference: BASIS-24 Behavior and Symptom Identification Scale: Clinical Cut Scores. Jama Patel (2018). Last Menstrual Period: Assessment Safety Risk Assessment: Acute risk for harm to self/others: Low Chronic risk for harm to self/others: Low No SI/intent/plan. No thoughts of hurting others/HI. No access to weapons. Assessment & Plan Bipolar disorder in full remission, most recent episode unspecified type ([facility]) Patient reports mood is stable. Continue current med regimen. Orders: RN NURSING PER 15 MIN lamoTRIgine (LAMICTAL) 200 mg tablet; Take 1 Tablet by mouth once daily risperiDONE (RISPERDAL) 0.5 mg tablet; Take 1 Tablet by mouth once daily as needed for other reason (hypomanic symptoms) risperiDONE (RISPERDAL) 2 mg tablet; Take 1 Tablet by mouth nightly at bedtime Take together with 0.5 mg for total 2.5 mg daily dosage Generalized anxiety disorder with panic attacks Panic attacks have persisted and don't respond to ativan nor hydroxyzine. Pt was encouraged to fill klonopin rx and will f/u with RN to assess med response. Orders: escitalopram (LEXAPRO) 20 mg tablet; Take 1 Tablet by mouth once daily Plan Risks, benefits, and alternatives were discussed. Patient/guardian understood and agreed with the plan. Reviewed Safety Plan: Call 911 or go to ED if in crisis. Advised of availability of after hours RN by calling main number for [facility]. Follow-up: No follow-ups on file. Upcoming Appointments: Appointments for the next 13 months 03/13/2025 3:00 PM MEDICATION MANAGEMENT [place] Tessa Dill RN 20 min 03/13/2025 3:20 PM MEDICATION MANAGEMENT [facility] Herberth Montana DO 20 min 03/24/2025 11:00 AM COUNSELING STANDARD [facility] VASQUEZ Whaley 45 min Reason for visit: Psychiatric Med Management Rosalva presents prior to their psychiatry provider visit to evaluate medication effectiveness, update medical history, and review overall treatment status. Telephone visit. Patient identity confirmed via name and date of . Potential risks and benefits discussed with patient/guardian, who verbalized consent for telehealth encounter. Reason for telephone: Patient unable to access technology/internet to facilitate video appointment Patient location: home Subjective Interval history and patient concerns: Client reports she is now taking 20mg of Lexapro. No side effects. Reports she took an extra 0.5mg risperdal for anxiety instead of klonopin and that seemed to work. Reports she did get a little drowsy. No thoughts of self harm or harming others. Intrusive thoughts are minimal and not bothering her since increasing lexapro. Denies hallucinations or delusional thoughts. Racing thoughts at night. No depression. No manic episodes. Current Outpatient Medications Medication Instructions acetaminophen (TYLENOL) 500 mg tablet No dose, route, or frequency recorded. ACNE MEDICATION 5 % CitruceL 1,000 mg, Every 8 hours PRN clonazePAM (KLONOPIN) 1 mg, oral, Daily PRN EPINEPHrine (EPIPEN) 0.3 mg escitalopram (LEXAPRO) 15 mg, oral, Daily hydrocortisone 2.5 % cream hydrOXYzine HCL (ATARAX) 25 mg, oral, 3 times daily PRN lamoTRIgine (LAMICTAL) 200 mg, oral, Daily Nurtec ODT 75 mg onabotulinumtoxinA (BOTOX) 200 Units, EVERY 12 Weeks ondansetron HCL (ZOFRAN) 4 mg tablet ondansetron ODT (ZOFRAN-ODT) 4 mg disintegrating tablet TAKE 1 TABLET BY MOUTH EVERY 6 HOURS NEEDED FOR NAUSEA AND VOMITING FOR UP TO 7 DAYS ONETOUCH VERIO TEST STRIPS strips No dose, route, or frequency recorded. risperiDONE (RISPERDAL) 0.5 mg, oral, Daily PRN risperiDONE (RISPERDAL) 2 mg, oral, NIGHTLY, Take together with 0.5 mg for total 2.5 mg daily dosage Ubrelvy 100 mg Reported medication adherence: yes Reported medication side effects: denies New medical problems or history: breast infection with discharge, has follow up Objective Vitals not currently . Mental Status Exam: Behavior: generally relaxed and engaged, cooperative Speech: unremarkable Mood: neutral Affect: appropriate for circumstance Thought content: unremarkable Perception: unremarkable Additional objective data: BASIS-24 Clinical Severity - Most Recent Administration Date Administered: 01/12/2025 Domain Subscore & Severity Depression/Functioning 1.15 - Moderate Interpersonal Relationships 1.08 - Moderate Self-Harm 0 - Low Emotional Lability 0.22 - Low Psychosis 0 - Low Alcohol/Drug Use 0.47 - Moderate BASIS-24 Overall Score 0.75 - Low Reference: BASIS-24 Behavior and Symptom Identification Scale: Clinical Cut Scores. Jama Patel (2018). BASIS-24 results were not reviewed. Assessment Provider diagnosis and treatment plan reviewed. F31.70 Bipolar disorder in full remission, most recent episode unspecified type ([facility]) (primary encounter diagnosis) F41.1,F41.0 Generalized anxiety disorder with panic attacks Comment: Risk Assessment: Acute risk for harm to self/others: Low Plan Verified patient medications and allergies; updated patient medical history in medical record. Provided report to Dr. Montana regarding patient concerns and status. Follow up as scheduled Upcoming appointments: Appointments for the next 13 months 02/27/2025 11:00 AM MEDICATION MANAGEMENT [facility] Herberth Montana DO 20 min 03/02/2025 12:00 PM COUNSELING STANDARD [facility] VASQUEZ Whaley 45 min 03/03/2025 9:00 AM CASE MANAGEMENT VISIT [facility] Sivakumar Diaz [facility] 90 min 03/06/2025 1:20 PM MEDICATION MANAGEMENT [facility] Tessa Dill RN 20 min 03/06/2025 1:40 PM MEDICATION MANAGEMENT [facility] Herberth Montana DO 20 min documented in this encounter [facility] Work Phone: 03-13-2025 Note [facility] 03-13-2025 History of Present illness Narrative Reason for Visit: Individual Counseling Video conference visit (Leia.). Patient identity confirmed via name and date of . Potential risks and benefits discussed with patient/guardian, who verbalized consent for telehealth encounter. Patient location: home. Problem: CL stated leaving children's father and moving to Aunt's house after being discharged from hospital. Cl informed of having another allergic reaction to medications. CL stated kids went to Dad's house over weekend and stated going to freind's house and getting drunk with friend at [employer] and having me time" CL reports decreased anxiety since moving and feeling good.CL stated feeling very peaceful and "at ease" since moving. F42.2 Mixed obsessional thoughts and acts (primary encounter diagnosis) Mental Status Exam: Within normal limits. Intervention: The following goals were addressed today: GOAL: "I know it will never go away but I want to get better coping skills to manage" Next Care Plan Review Date: 07/19/2025 Provider addressed Rosalva's concerns related to the presenting problem above through the following therapeutic interventions: Active and reflective listening, Motivational interviewing, and Reality testing enhancement. Acute risk for harm to self/others: Low C-SSRS Screen Response/Impression: Rosalva demonstrated minimal improvement in session today as evidenced by reports of feeling less stress and anxiety since moving. 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 CL reports "once off for girls night". TH challenged client self reports of moving to [place] due to conflicting history of self reports of living there since starting services. CL stated had been living in [place] prior and has since moved to [place]. TH asked open ended questions to help gain insight about conflicting history of events. BASIS-24 Clinical Severity - Most Recent Administration Date Administered: 01/12/2025 Domain Subscore & Severity Depression/Functioning 1.15 - Moderate Interpersonal Relationships 1.08 - Moderate Self-Harm 0 - Low Emotional Lability 0.22 - Low Psychosis 0 - Low Alcohol/Drug Use 0.47 - Moderate BASIS-24 Overall Score 0.75 - Low Reference: BASIS-24 Behavior and Symptom Identification Scale: Clinical Cut Scores. Jama Patel (2018). BASIS-24 results were reviewed. Plan: Rosalva's follow-up/homework: CL will work on getting kids rooms set up and getting resources. Provider's follow-up/referrals/action items: N/A Next appointment with this provider: 03/24/25 documented in this encounter [facility] Work Phone: 03-10-2025 Discharge summary [facility] 03-08-2025 Note HNO ID: [id number] Author: KATELYN SHIN LSW Service: Care Management Author Type: Assistive Technology Trainer Type: Care Mgt Progress Note Filed: 03/08/2025 14:07 Note Text: CARE MANAGEMENT PROGRESS NOTE SERVICE DATE: 03/08/2025 SERVICE TIME: 1402 LOS: 1 day Met with pt this am . Obtained permission to speak with Her significant other Adri and her Aunt Zeynep (who was pts group home mom) Yesterday, Nursing received call from SO; Adri who is concerned that pts multiple admissions is due to possible drug use or interaction. (Pts tox screen Neg besides benzos and pt does see psych and cattle care worker) He is concerned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 time it is not either" 6. OTHER SYMPTOMS: - breast pain 7. -: - Denies - Has an IUD Protocols used: Breast Ndrtmxic-SDYJY-AZ documented in this encounter [facility] 01-17-2025 History of Presen t illness Narrative Reason for Visit: Individual Counseling Video conference visit (Leia.). Patient identity confirmed via name and date of . Potential risks and benefits discussed with patient/guardian, who verbalized consent for telehealth encounter. Patient location: home. Problem: CL reports having high anxiety about lump in breast. CL stated sleep has been affected and waking up with panic attacks and "feeling exhausted all the time with horrible anxiety". CL expressed having difficult time managing parental role at home and feeling unsupported. CL informed of not being able to make upcoming appt for breat scan due to not having child car or transportation. CL stated wanting to have stronger meds to manage anxiety. F41.1 Generalized anxiety disorder (primary encounter diagnosis) Mental Status Exam: Appearance: appropriate Behavior: cooperative, irritable, anxious Speech: rapid Mood: nervous, anxious Affect: labile Thought content: unremarkable Perception: unremarkable Insight: limited - CL recognizes needs but is pre-contemplative about making changes to improve overall health. Judgement: appropriate Intervention: The following goals were addressed today: GOAL: I will practice self-care daily to decrease and prevent anxiety. and GOAL: "I want better ccping skills when I have intrusive thoughts and reduce panic" Next Care Plan Review Date: 07/19/2025 Provider addressed Rosalva's concerns related to the presenting problem above through the following therapeutic interventions: Empathetic validation and support, Enhancing coping skills, and Symptom management, skill building. Acute risk for harm to self/others: Low C-SSRS Screen Response/Impression: Rosalva demonstrated deterioration in session today as evidenced by presence of negative thinking patterns, low motivation and high irritability. . Overall impression of treatment demonstrates deterioration as evidenced by self reports of increased symptoms. TH validated CL feelings and offered support. TH challenged CL about being able to apply coping skills and explored defensiveness with making healthy boundaries. TH encouraged CL to have discussion with support system about importance of attending doctor appointments and suggested reach out to insurance provider about available resources for transportation. BASIS-24 Clinical Severity - Most Recent Administration Date Administered: 01/12/2025 Domain Subscore & Severity Depression/Functioning 1.15 - Moderate Interpersonal Relationships 1.08 - Moderate Self-Harm 0 - Low Emotional Lability 0.22 - Low Psychosis 0 - Low Alcohol/Drug Use 0.47 - Moderate BASIS-24 Overall Score 0.75 - Low Reference: BASIS-24 Behavior and Symptom Identification Scale: Clinical Cut Scores. Jama Patel (2018). BASIS-24 results were not reviewed. Plan: Rosalva's follow-up/homework: CL will reach out to insurance to discuss options to attend upcoming appt. Provider's follow-up/referrals/action items: N/A Next appointment with this provider: 01/23/25 documented in this encounter [facility] Work Phone: 01-15-2025 Note [facility] 01-15-2025 History of Presen t illness Narrative Received page: "FW: [phone] rosalva huang, armando [birth year], pt. of dr. nelson. pt. was hospitalized for an infection in breast. pt. has since been released from clinic but still vomiting. pt. would like a prescription for anti nausea medication. pls advise. Tem" Spoke with patient, states she is unable to keep even water down. She feels nauseous. Does not have a PCP yet but is in the process of finding one as her [facility] PCP recently left. Prescribed Zofran 4 mg p.o. for 5 days. Checked drug interactions with pharmacy team and QTc is normal. Discussed that patient should reach out to her new PCP for further management of nausea. Bere Roque PGY-4 Infectious Disease documented in this encounter [facility] 01-13-2025 Note [facility] 01-12-2025 Note [facility] 01-12-2025 History of Presen t illness Narrative Reason for Visit: Individual Counseling Video conference visit (). Patient identity confirmed via name and date of . Potential risks and benefits discussed with patient/guardian, who verbalized consent for telehealth encounter. Patient location: other: CL was at [facility]. Problem: CL stated having to come back to hospital after having strong reaction to medication and being admitted. CL stated feeling ok. CL reflected on relationship dynamics and stated wanitng to make changes but feeling anxious about how to make them. F41.1 Generalized anxiety disorder (primary encounter diagnosis) Mental Status Exam: Within normal limits. Intervention: The following goals were addressed today: GOAL: I will practice self-care daily to decrease and prevent anxiety. and GOAL: Identify and discuss unresolved life conflicts (see measurable component below): Next Care Plan Review Date: 07/19/2025 Provider addressed Rosalva's concerns related to the presenting problem above through the following therapeutic interventions: Assist in problem solving and Empathetic validation and support. Acute risk for harm to self/others: Low C-SSRS Screen Response/Impression: Rosalva demonstrated minimal improvement in session today as evidenced by high anxiety due to having to be readmitted back to hospital . Overall impression of treatment demonstrates minimal improvement as evidenced by advocating for own needs and wanting to make happiness a priority. TH and CL explored relationship within home and what healthy relationships look like. TH validated CL feelings and offered support. TH asked client to reframe thoughts of "not feeling smart" and highlighted strengths. BASIS-24 Clinical Severity - Most Recent Administration Date Administered: 01/12/2025 Domain Subscore & Severity Depression/Functioning 1.15 - Moderate Interpersonal Relationships 1.08 - Moderate Self-Harm 0 - Low Emotional Lability 0.22 - Low Psychosis 0 - Low Alcohol/Drug Use 0.47 - Moderate BASIS-24 Overall Score 0.75 - Low Reference: BASIS-24 Behavior and Symptom Identification Scale: Clinical Cut Scores. Jama Patel (2018). BASIS-24 results were reviewed. Plan: Rosalva's follow-up/homework: Cl will use compassionate thinking and positve self talk Provider's follow-up/referrals/action items: N/A 01/17/25 Next appointment with this provider: 01/17/25 documented in this encounter [facility] Work Phone: 01-12-2025 Note [facility] 01-11-2025 Note [facility] 01-11-2025 Note [facility] 01-11-2025 Note [facility] 01-10-2025 Note [facility] 01-10-2025 Note [facility] 01-09-2025 Telephone encounter Note Call back to patient to give give alternate options of Express Care online visit, go to Express or Urgent care or return to the Emergency Room, patient verbalized understanding. [facility] 01-09-2025 Miscellaneous Notes Call back to patient to give give alternate options of Express Care online visit, go to Express or Urgent care or return to the Emergency Room, patient verbalized understanding. Reason for Call: Left breast pain Outcome: See PCP within 24 hours, Patient was conferenced to [facility] in Appointment Center for PCP scheduling. Reason for Disposition [1] Breast looks infected (spreading redness, feels hot or painful to touch) AND [2] no fever Answer Assessment - Initial Assessment Questions 1. SYMPTOM: Breast pain 2. LOCATION: Left breast 3. ONSET: 12/31/24 4. PRIOR HISTORY: Patient was seen at [facility] ED on 01/01/25 for breast infection due to nipple ring 5. CAUSE: Breast infection 6. OTHER SYMPTOMS: Redness and warm 7. -: Not Pain? Location of pain? Left breast Description of pain? N/A Duration of pain? 10 days and taking benadryl due to having a rash Pain relief methods/effectiveness? Not helping Protocols used: Breast Oexpajvl-CUJUR-MD documented in this encounter [facility] 01-09-2025 Telephone encounter Note Reason for Call: Left breast pain Outcome: See PCP within 24 hours, Patient was conferenced to [facility] in Appointment Center for PCP scheduling. Reason for Disposition [1] Breast looks infected (spreading redness, feels hot or painful to touch) AND [2] no fever Answer Assessment - Initial Assessment Questions 1. SYMPTOM: Breast pain 2. LOCATION: Left breast 3. ONSET: 12/31/24 4. PRIOR HISTORY: Patient was seen at [facility] ED on 01/01/25 for breast infection due to nipple ring 5. CAUSE: Breast infection 6. OTHER SYMPTOMS: Redness and warm 7. -: Not Pain? Location of pain? Left breast Description of pain? N/A Duration of pain? 10 days and taking benadryl due to having a rash Pain relief methods/effectiveness? Not helping Protocols used: Breast Vyfuukui-EJXHO-TF [facility] 01-08-2025 Telephone encounter Note Reason for Call: rash; just released from hospital related to care of left breast cellulitis; arms, neck and chest; top lip is swollen Outcome: Recommendation to return to the hospital for antibiotics, patient verbalized understanding of recommendations Reason for Disposition [1] Widespread hives AND [2] onset < 2 hours of exposure to 1st dose of drug Protocols used: Rash - Widespread On Gxwwr-JONBE-UT [facility] 01-08-2025 Miscellaneous Notes Reason for Call: rash; just released from hospital related to care of left breast cellulitis; arms, neck and chest; top lip is swollen Outcome: Recommendation to return to the hospital for antibiotics, patient verbalized understanding of recommendations Reason for Disposition [1] Widespread hives AND [2] onset < 2 hours of exposure to 1st dose of drug Protocols used: Rash - Widespread On [id number]-[id number] documented in this encounter [facility] 2025 Note [facility] 2025 Note [facility] 2025 Note HNO ID: [id number] Author: YEN OJEDA RN Service: Nursing Author Type: Registered Nurse Type: Progress Notes Filed: 2025 06:07 Note Text: Patient refused am vitals [facility] 01-06-2025 History of Presen t illness Narrative Reason for Visit: Individual Counseling Telephone visit. Patient identity confirmed via name and date of . Potential risks and benefits discussed with patient/guardian, who verbalized consent for telehealth encounter. Reason for Telephone: Other: returned CL call. Patient location: other: CL was at [facility] . Problem: Cl expressed having increased anxiety after being admitted to hospital. CL stated having breat infection that resulted in stay in the hospital and multiple allergic reactions to antibiotics. CL expressed feeling scared after multiple tests came back negative and finding two masses in breast. F41.1 Generalized anxiety disorder (primary encounter diagnosis) Mental Status Exam: Appearance: unable to assess Behavior: anxious Speech: unremarkable Mood: nervous, anxious Affect: appropriate for circumstance Thought content: unremarkable Perception: unremarkable Insight: appropriate Judgement: appropriate Intervention: The following goals were addressed today: GOAL: "I want better ccping skills when I have intrusive thoughts and reduce panic" Next Care Plan Review Date: 07/19/2025 Provider addressed Rosalva's concerns related to the presenting problem above through the following therapeutic interventions: Empathetic validation and support, Enhancing coping skills, and Symptom management, skill building. Acute risk for harm to self/others: Low C-SSRS Screen Response/Impression: Rosalva demonstrated minimal improvement in session today as evidenced by willing to use refraining when negative thinking is present and utilize time at hospital to for self care . Overall impression of treatment demonstrates deterioration as evidenced by self reports of increased anxiety, intursive thoughts and negative thinking due to unknown with on-going medical concerns. TH validated CL feelings and offered support. TH encouraged CL to stop using social media and internet sources to self diagnose and assess symptoms. BASIS-24 Clinical Severity - Most Recent Administration Date Administered: 06/13/2024 Domain Subscore & Severity Depression/Functioning 0.88 - Low Interpersonal Relationships 3.39 - High Self-Harm 0 - Low Emotional Lability 2.22 - High Psychosis 0 - Low Alcohol/Drug Use 0 - Low BASIS-24 Overall Score 1.29 - Moderate Reference: BASIS-24 Behavior and Symptom Identification Scale: Clinical Cut Scores. Jama Patel (2018). BASIS-24 results were not reviewed. Plan: Rosalva's follow-up/homework: CL will focus on being the present and reduce anxious thoughts by limiting what-if thinking. Provider's follow-up/referrals/action items: N/A Next appointment with this provider: 01/06/25 documented in this encounter [employer] Work Phone: 01-06-2025 Note [facility] 01-05-2025 Note [facility] 01-05-2025 Note [facility] 01-05-2025 Note [facility] 01-04-2025 Note [facility] 01-03-2025 Note [facility] 01-02-2025 Note [facility] 01-02-2025 Note [facility] 01-01-2025 Telephone encounter Note Patient calling regarding redness spreading, seen at [facility] yesterday, 12/31/24.. Conferenced to MIRNA Vazquez at [facility] at [phone] for assistance. Advised GO TO THE EMERGENCY ROOM OR CALL 911 IF: * You develop any new symptoms * Your condition worsens * You are concerned or anxious about your condition for any other reason. [facility] 01-01-2025 Miscellaneous Notes Patient calling regarding redness spreading, seen at [facility] yesterday, 12/31/24.. Conferenced to MIRNA Vazquez at [facility] at [phone] for assistance. Advised GO TO THE EMERGENCY ROOM OR CALL 911 IF: * You develop any new symptoms * Your condition worsens * You are concerned or anxious about your condition for any other reason. documented in this encounter [facility] 12-31-2024 Note [facility] 12-31-2024 Miscellaneous Notes Reason for Call: New fever with painful lump in breast, redness spreading, and nipple discharge Outcome: Advised to see HCP within 4 hours. Patient verbalized understanding and is agreeable to the plan. Will try to call for a ride to the ED. Advised patient to call back if unable to be seen within 4 hours. Reason for Disposition [1] Breast looks infected (spreading redness, feels hot or painful to touch) AND [2] fever Answer Assessment - Initial Assessment Questions 1. SYMPTOM: Left breast Painful lump, redness spreading across chest, discharge from nipple 2. LOCATION: Left breast, right side next to nipple lump is located. Redness starts next to nipple and is spreading into middle of chest 3. ONSET: Lump started 3-4 days ago with swelling, pus and blood 2 days ago, fever started today, redness spreading today 4. PRIOR HISTORY: 13 years old, lump removed from right breast 5. CAUSE: Got nipples pierced 2 months ago 6. OTHER SYMPTOMS: Fever of 101 F, nipple discharge, redness spreading 7. -: Denies- has IUD Protocols used: Breast [id number] documented in this encounter [facility] 12-31-2024 Telephone encounter Note Reason for Call: New fever with painful lump in breast, redness spreading, and nipple discharge Outcome: Advised to see HCP within 4 hours. Patient verbalized understanding and is agreeable to the plan. Will try to call for a ride to the ED. Advised patient to call back if unable to be seen within 4 hours. Reason for Disposition [1] Breast looks infected (spreading redness, feels hot or painful to touch) AND [2] fever Answer Assessment - Initial Assessment Questions 1. SYMPTOM: Left breast Painful lump, redness spreading across chest, discharge from nipple 2. LOCATION: Left breast, right side next to nipple lump is located. Redness starts next to nipple and is spreading into middle of chest 3. ONSET: Lump started 3-4 days ago with swelling, pus and blood 2 days ago, fever started today, redness spreading today 4. PRIOR HISTORY: 13 years old, lump removed from right breast 5. CAUSE: Got nipples pierced 2 months ago 6. OTHER SYMPTOMS: Fever of 101 F, nipple discharge, redness spreading 7. -: Denies- has IUD Protocols used: Breast Ifbishyb-OSIUI-DF [facility] 12-31-2024 Telephone encounter Note Reason for Call: Left breast lump, tender to touch, redness and swelling. No fever. Outcome: Advised to be seen within 24 hours. Patient verbalized understanding and is agreeable to the plan. Reviewed Express Care/Urgent Care Options. Gabriella Batres RN Reason for Disposition [1] Breast looks infected (spreading redness, feels hot or painful to touch) AND [2] no fever Left breast lump, tender to touch, redness and swelling. No fever. Answer Assessment - Initial Assessment Questions 1. SYMPTOM: Left breast - lump - red and tender to touch Recently got nipple pierced; 2 months ago ; discharge present - white with blood present 2. LOCATION: Left breast 3. ONSET: Noticed a couple days ago; worse today 4. PRIOR HISTORY: Lump that was removed previously - was not cancerous (right breast) 5. CAUSE: Unsure 6. OTHER SYMPTOMS: Nipple discharge, red and rash, pain and tender to touch 7. -: Denies Protocols used: Breast Pdmdrcck-HVDSY-VW [facility] 12-31-2024 Miscellaneous Notes Reason for Call: Left breast lump, tender to touch, redness and swelling. No fever. Outcome: Advised to be seen within 24 hours. Patient verbalized understanding and is agreeable to the plan. Reviewed Express Care/Urgent Care Options. Gabriella Batres RN Reason for Disposition [1] Breast looks infected (spreading redness, feels hot or painful to touch) AND [2] no fever Left breast lump, tender to touch, redness and swelling. No fever. Answer Assessment - Initial Assessment Questions 1. SYMPTOM: Left breast - lump - red and tender to touch Recently got nipple pierced; 2 months ago ; discharge present - white with blood present 2. LOCATION: Left breast 3. ONSET: Noticed a couple days ago; worse today 4. PRIOR HISTORY: Lump that was removed previously - was not cancerous (right breast) 5. CAUSE: Unsure 6. OTHER SYMPTOMS: Nipple discharge, red and rash, pain and tender to touch 7. -: Denies Protocols used: Breast [id number] documented in this encounter [facility] 12-30-2024 History of Presen t illness Narrative Telephone visit. Patient identity confirmed via name and date of . Potential risks and benefits discussed with patient/guardian, who verbalized consent for telehealth encounter. Reason for telephone: Patient unable to access technology/internet to facilitate video appointment Patient location: home Registered Nurse Visit 12/30/2024 12:00 PM Reason For Visit Health maintenance ("care gap") screening, assessment, education, and referral. Interval History and Patient Concerns Client reached out to report she is drinking daily since August. She is drinking [employer] [place], approx 6-8 cans, after the kids are in bed. Denies drug use or tobacco. Denies thoughts of self harm or harming others. Reports her intrusive thoughts are better since med increase. She said they pop in and out of her head and cause her no stress. Denies depression symptoms. Anxiety is better. Took ativan one day when stress was high. Denies hallucinations or delusional thoughts. Manic symptoms are managed. She is sleeping 8-9 hours at night. Appetite is good. Asking for more support due to the drinking. Medication Adherence Good Side Effects Reported No New Medical Problems or History denies Vitals Taken? No COWS Completed? No AIMS Completed? No Nursing Specialty Psychiatry Patient has Narcan? No Reported Mood Euthymic Reported Sleep good, 8-9 hours Reported Appetite good Hallucinations or Delusions None Reported General Alert;Cooperative Behavior Cooperative;Relaxed and engaged Insight Appropriate Judgment Fair Title X Services Was a Title X service provided? No. Assessment and Plan Risk Assessment Acute risk for harm to self/others: Low 1. Bipolar disorder in full remission, most recent episode unspecified type ([facility]) (Primary) Overview: Stable on current medication regimen Care Planning Additional Plan: Patient education provided this visit: medication, symptoms, coping, resources (AA) Routed encounter note to Dr. [place] Follow up in 1 week with RN Increase counseling sessions Attend AA Remove alcohol from home and refrain from using [employer] Reviewed upcoming appointments: Appointments for the next 13 months 01/06/2025 12:00 PM COUNSELING STANDARD [facility] VASQUEZ Whaley 45 min 01/30/2025 9:20 AM MEDICATION MANAGEMENT [facility] Tessa Dill RN 20 min 01/30/2025 9:40 AM MEDICATION MANAGEMENT [facility] Herberth Montana DO 20 min documented in this encounter [facility] Work Phone: 12-30-2024 History of Presen t illness Narrative Reason for Visit: Individual Counseling Video conference visit ([email or web address]). Patient identity confirmed via name and date of . Potential risks and benefits discussed with patient/guardian, who verbalized consent for telehealth encounter. Patient location: home. Problem: CL reports no anxiety and depression. CL stated, "I have had a problem with drinking lately" and reports drinking 3-4 drinks every night and using as a coping skill when feeling "stressed from the babies". CL stated, "I don't get too drunk but just feel good". CL expressed wanting to stop but having difficult time due to limited supports. F41.1 Generalized anxiety disorder (primary encounter diagnosis) F31.70 Bipolar disorder in full remission, most recent episode unspecified type ([facility]) Mental Status Exam: Within normal limits. Intervention: The following goals were addressed today: GOAL: I will practice self-care daily to decrease and prevent anxiety. and GOAL: "I want to take my medication everday and monitoring symptoms" Next Care Plan Review Date: 07/19/2025 Provider addressed Rosalva's concerns related to the presenting problem above through the following therapeutic interventions: Enhancing coping skills, Increasing awareness related to risks associated with alcohol use, Motivational interviewing, Risk assessment and safety planning, and Symptom management, skill building. Acute risk for harm to self/others: Low. CL was encouraged to reach out to psych care team regarding increase in use and interactions with medications o reduce any risks.. CL agreed to reach out after visit. C-SSRS Screen Response/Impression: Rosalva demonstrated minimal improvement in session today as evidenced by agreeable to go to AA meeting and reach out to psychiatry about risks of alcohol use and medication. Overall impression of treatment demonstrates deterioration as evidenced by increased use of alcohol used as coping skill when feeling triggered. TH explored use of alcohol as coping skills and asked to identify healthier coping mechanisms. CL was avoidant about identifying alternative coping skills. TH asked client to explore risks associated with taking medication and discussed history of prior addiction. TH educated CL about mandated reporting due to ambivalence about discussing new problems. TH provided client with resources to connect to when feeling triggered or having increased cravings. BASIS-24 Clinical Severity - Most Recent Administration Date Administered: 06/13/2024 Domain Subscore & Severity Depression/Functioning 0.88 - Low Interpersonal Relationships 3.39 - High Self-Harm 0 - Low Emotional Lability 2.22 - High Psychosis 0 - Low Alcohol/Drug Use 0 - Low BASIS-24 Overall Score 1.29 - Moderate Reference: BASIS-24 Behavior and Symptom Identification Scale: Clinical Cut Scores. Jama Patel (2018). BASIS-24 results were reviewed with the patient. Plan: Rosalva's follow-up/homework: CL was encouraged to talk to psych about medication interaction with increased drinking and risks of addiction. CL was provided resources to connect to if cravig and triggers are increased. Provider's follow-up/referrals/action items: N/A Next appointment with this provider: 01/06/25 documented in this encounter [facility] Work Phone: 12-20-2024 Note [facility] 12-20-2024 Procedure note Images from the original note were not included. Headache Center Follow-up Visit Current Preventive: botox Change needed for current preventive? No Current Abortive: ubrelvy - only took x 2 but did not find beneficial, will give this 1 more chance and if no benefit try another medication Miscellaneous Patient Concerns: Started drinking in September, was drinking daily and stopped drinking 2 days ago. Used pain meds/marijuana at the age of 17 and stopped at 18. Has a counselor who is aware of drinking. Joined AA group on [employer]. Did very well with the last round of Botox - only had 2 migraines! Impression: Chronic migraine without aura, intractable, without status migrainosus (primary encounter diagnosis) Plan: - try ubrelvy for at least 1 more time, if no benefit will consider zavzpret - patient counseled if she notes any signs of alcohol withdrawal to go to the ED immediately - botox today (see procedure note below) Follow-Up Onabotulinum Toxin A (BotoxTM) for Migraine Indication: Chronic Intractable Migraine Treatment #: 5 Referral Expiration: 06/07/2025 Prior to the initiation of the FIRST treatment with Onabotulinum Toxin A, the patient reported the following average headache frequency over the past 3 MONTHS: Number of moderate-severe migraine days/month: 25 Number of mild migraine days/month: 0 Number of headache free days/month: 5 (120 headache-free hours) After treatment with Onabotulinum Toxin A: Number of moderate-severe migraine days/month: 1 Number of mild migraine days/month: 0 Number of headache free days/month: 29 (696 headache-free hours) Patient reduction in overall migraine days: Yes Patient reduction in moderate-severe migraine days: Yes Patient reduction of headache hours by 100 hours or more: Yes (reduction of 576 hours) Individual has obtained clinical benefit deemed significant by individual or prescriber (Y/N): Yes Patient's quality of life and ability to perform ADLs has improved (Y/N): Yes Side effects: none Wearing off: Yes - 11 weeks after treatment The patient has been assessed for disorders which could contribute to breathing or swallowing difficulty, and there is no contraindication with PREEMPT Botox. There is no documented allergic reaction/hypersensitivity to any botulinum toxin and there is no active infection at proposed injection site. HEADACHE SCORES: 12/03/2020 04/04/2024 Headache Questions ER visits since last office visit: 0 Hospital stays since last office visit 0 Limited ADLs in the last month: 2 Days missed from work or school in the last month: 0 Days headache pain free in the last month: 28 Days per month with ALL of the following symptoms - decreased productivity, light sensitivity and nausea: 2 Initial improvement of headache after botox injection at last visit: Not applicable, I did not have a botox injection at my last visit Very much improved PRN medication usage in the last month: 0 5 Patient impression of improvement since last visit: Not applicable, this is my first visit Very much improved 12/03/2020 04/04/2024 07/04/2024 HIT-6 HIT-6 63 (Severe impact) 60 (Severe impact) 63 (Severe impact) 12/03/2020 04/04/2024 07/04/2024 NIKKIE - 2/7 SCORES NIKKIE-2 Score 1 2 6 NIKKIE-7 Score 21 04/04/2024 07/04/2024 Migraine Specific QOL - Higher scores indicate better HRQL Role Function-Restrictive Transformed Score (range: 0-100) 60 60 Role Function-Preventive Transformed Score (range: 0-100) 60 60 Emotional Function Transformed Score (range: 0-100) 60 60 12/03/2020 04/04/2024 07/04/2024 PHQ-9 Score 4 1 5 BP 133/62 (BP Site: Right Arm, BP Position: Sitting, BP Cuff Size: Regular Adult) Pulse 95 Temp 36.3 C (97.3 F) (Skin) LMP (LMP Unknown) Patient name: Rosalva Huang : 1990 ALLERGIES Allergen Reactions Onion GI Upset Adhesive Tape (Rita* Rash, Itching Patient reports unable to tolerate band-aids after a procedure. She noted redness and itching at site of band aid. Mosquitos Swelling Phenergan [Prometha* GI Upset Sunscreen Rash Tingle tanning lotion Zyrtec [Cetirizine * Mental Status Change Made her very drowsy, UNIVERSAL PROTOCOL / SAFETY CHECKLIST Procedure: Onabotulinum toxin A for migraine Informed Consent Consent Obtained: Written [place] Protocol A moment to CARE was completed SIGN IN Personnel directly involved with the procedure wore the appropriate PPE Special Equipment: N/A Patient/Surrogate Stated/Verified: Patient name, Date of , Relevant allergies and Intended procedure TIME OUT Intended patient and procedure match the source document(s) Consent documented and matches the intended procedure No relevant labs, photos, and/or imaging studies were applicable for review. No correct side/site applicable for marking and visibility. Medications required for procedure verified. No fire risk assessment and interventions applicable. No implant(s) inserted. SIGN OUT No specimen collected. No instruments, equipment or retained foreign bodies applicable. Post-procedure follow-up management communicated and Plan of Care Visit completed when applicable Written Consent Obtained: Written LOT #: [id number] Expiration Date: Month: 3 Year: 2026 Injection Sites Left (Units) Left (Sites) Right (Units) Right (Sites) TOTAL (Units) Manager Mall 5 1 5 1 10 Procerus Units: 5 Sites: 1 5 Frontalis 10 2 10 2 20 Temporalis optional follow the pain 20 15 4 3 20 10 4 2 65 Occipitalis optional follow the pain 15 10 3 2 15 10 3 2 50 Cervical PSP 10 2 10 2 20 Trapezius 15 3 15 3 30 Total Units used: 200 Total Units wasted: 0 Prior Therapies Duration of Use Dose Side effect Other Therapies Nerve blocks Analgesic Diclofenac (Voltaren, Cataflam, Camb[place]) Hydrocodone/Acetaminophen (Vicodin, [employer]) Anti-Anxiety Alprazolam (Xanax, Niravam) Diazepam (Valium) Anti-Convulsant Lamotrigine (Lamictal) Topiramate (Topamax, Trokendi XL, Qudexy) Anti-Depressant and Antipsychotic Quetiapine (Seroquel) Antiemetics Ondansetron Promethazine Anti-Migraine Rizatriptan (Maxalt) Sumatriptan (Imitrex, Sumavel) GEPANTS Rimegepant (Nurtec) Supplements CoQ10 Magnesium Riboflavin Other Medications Dexamethasone (Decadron) Methylprednisolone (Medrol) Prednisone Over the Counter Medications Acetaminophen (Tylenol) Ibuprofen (Advil, Motrin) Jaja Moss APRN.CAGER OPERATOR [facility] 12-20-2024 Procedure note Images from the original note were not included. Headache Center Follow-up Visit Current Preventive: botox Change needed for current preventive? No Current Abortive: ubrelvy - only took x 2 but did not find beneficial, will give this 1 more chance and if no benefit try another medication Miscellaneous Patient Concerns: Started drinking in September, was drinking daily and stopped drinking 2 days ago. Used pain meds/marijuana at the age of 17 and stopped at 18. Has a counselor who is aware of drinking. Joined AA group on [employer]. Did very well with the last round of Botox - only had 2 migraines! Impression: Chronic migraine without aura, intractable, without status migrainosus (primary encounter diagnosis) Plan: - try ubrelvy for at least 1 more time, if no benefit will consider zavzpret - patient counseled if she notes any signs of alcohol withdrawal to go to the ED immediately - botox today (see procedure note below) Follow-Up Onabotulinum Toxin A (BotoxTM) for Migraine Indication: Chronic Intractable Migraine Treatment #: 5 Referral Expiration: 06/07/2025 Prior to the initiation of the FIRST treatment with Onabotulinum Toxin A, the patient reported the following average headache frequency over the past 3 MONTHS: Number of moderate-severe migraine days/month: 25 Number of mild migraine days/month: 0 Number of headache free days/month: 5 (120 headache-free hours) After treatment with Onabotulinum Toxin A: Number of moderate-severe migraine days/month: 1 Number of mild migraine days/month: 0 Number of headache free days/month: 29 (696 headache-free hours) Patient reduction in overall migraine days: Yes Patient reduction in moderate-severe migraine days: Yes Patient reduction of headache hours by 100 hours or more: Yes (reduction of 576 hours) Individual has obtained clinical benefit deemed significant by individual or prescriber (Y/N): Yes Patient's quality of life and ability to perform ADLs has improved (Y/N): Yes Side effects: none Wearing off: Yes - 11 weeks after treatment The patient has been assessed for disorders which could contribute to breathing or swallowing difficulty, and there is no contraindication with PREEMPT Botox. There is no documented allergic reaction/hypersensitivity to any botulinum toxin and there is no active infection at proposed injection site. HEADACHE SCORES: 12/03/2020 04/04/2024 Headache Questions ER visits since last office visit: 0 Hospital stays since last office visit 0 Limited ADLs in the last month: 2 Days missed from work or school in the last month: 0 Days headache pain free in the last month: 28 Days per month with ALL of the following symptoms - decreased productivity, light sensitivity and nausea: 2 Initial improvement of headache after botox injection at last visit: Not applicable, I did not have a botox injection at my last visit Very much improved PRN medication usage in the last month: 0 5 Patient impression of improvement since last visit: Not applicable, this is my first visit Very much improved 12/03/2020 04/04/2024 07/04/2024 HIT-6 HIT-6 63 (Severe impact) 60 (Severe impact) 63 (Severe impact) 12/03/2020 04/04/2024 07/04/2024 NIKKIE - 2/7 SCORES NIKKIE-2 Score 1 2 6 NIKKIE-7 Score 21 04/04/2024 07/04/2024 Migraine Specific QOL - Higher scores indicate better HRQL Role Function-Restrictive Transformed Score (range: 0-100) 60 60 Role Function-Preventive Transformed Score (range: 0-100) 60 60 Emotional Function Transformed Score (range: 0-100) 60 60 12/03/2020 04/04/2024 07/04/2024 PHQ-9 Score 4 1 5 BP 133/62 (BP Site: Right Arm, BP Position: Sitting, BP Cuff Size: Regular Adult) Pulse 95 Temp 36.3 C (97.3 F) (Skin) LMP (LMP Unknown) Patient name: Rosalva Huang : 1990 ALLERGIES Allergen Reactions Onion GI Upset Adhesive Tape (Rita* Rash, Itching Patient reports unable to tolerate band-aids after a procedure. She noted redness and itching at site of band aid. Mosquitos Swelling Phenergan [Prometha* GI Upset Sunscreen Rash Tingle tanning lotion Zyrtec [Cetirizine * Mental Status Change Made her very drowsy, UNIVERSAL PROTOCOL / SAFETY CHECKLIST Procedure: Onabotulinum toxin A for migraine Informed Consent Consent Obtained: Written [place] Protocol A moment to CARE was completed SIGN IN Personnel directly involved with the procedure wore the appropriate PPE Special Equipment: N/A Patient/Surrogate Stated/Verified: Patient name, Date of , Relevant allergies and Intended procedure TIME OUT Intended patient and procedure match the source document(s) Consent documented and matches the intended procedure No relevant labs, photos, and/or imaging studies were applicable for review. No correct side/site applicable for marking and visibility. Medications required for procedure verified. No fire risk assessment and interventions applicable. No implant(s) inserted. SIGN OUT No specimen collected. No instruments, equipment or retained foreign bodies applicable. Post-procedure follow-up management communicated and Plan of Care Visit completed when applicable Written Consent Obtained: Written LOT #: [id number] Expiration Date: Month: 3 Year: 2026 Injection Sites Left (Units) Left (Sites) Right (Units) Right (Sites) TOTAL (Units) Manager Mall 5 1 5 1 10 Procerus Units: 5 Sites: 1 5 Frontalis 10 2 10 2 20 Temporalis optional follow the pain 20 15 4 3 20 10 4 2 65 Occipitalis optional follow the pain 15 10 3 2 15 10 3 2 50 Cervical PSP 10 2 10 2 20 Trapezius 15 3 15 3 30 Total Units used: 200 Total Units wasted: 0 Prior Therapies Duration of Use Dose Side effect Other Therapies Nerve blocks Analgesic Diclofenac (Voltaren, Cataflam, Cambia) Hydrocodone/Acetaminophen (Vicodin, [employer]) Anti-Anxiety Alprazolam (Xanax, Niravam) Diazepam (Valium) Anti-Convulsant Lamotrigine (Lamictal) Topiramate (Topamax, Trokendi XL, Qudexy) Anti-Depressant and Antipsychotic Quetiapine (Seroquel) Antiemetics Ondansetron Promethazine Anti-Migraine Rizatriptan (Maxalt) Sumatriptan (Imitrex, Sumavel) GEPANTS Rimegepant (Nurtec) Supplements CoQ10 Magnesium Riboflavin Other Medications Dexamethasone (Decadron) Methylprednisolone (Medrol) Prednisone Over the Counter Medications Acetaminophen (Tylenol) Ibuprofen (Advil, Motrin) Jaja Moss APRN.LOUIS documented in this encounter [facility] 12-20-2024 Instructions Jaja Moss APRN.CNP - 12/20/2024 9:25 AM EST Instruction after Botox injection: - If you have any pain or swelling use ice, 20 min on and 20 min off. Do not rub or massage the area for 24 hrs. - If you have any neck stiffness, you may use heat and do stretching exercises. - This should improve over the next 5 days. - If it does not, call our office at [phone] for further instructions. documented in this encounter [facility] 12-05-2024 History of Presen t illness Narrative Associated Problem(s): Obsessive-compulsive disorder, unspecified Continue lexapro and Risperdal at current doses Associated Problem(s): Generalized anxiety disorder Continue lexapro 10 mg daily and prn use of ativan for severe panic attacks. No refills on ativan today as pt has plenty to last until her next appt. Associated Problem(s): Bipolar disorder in full remission ([facility]) Continue Lamotrigine and Risperdal for mood stabilization Subjective Video conference visit (Leia.). Patient identity confirmed via name and date of . Potential risks and benefits discussed with patient/guardian, who verbalized consent for telehealth encounter. Patient location: home. Chief Complaint: Psychiatric Med Management HPI 12/05/24: Rosalva Huang is a 34 year old female with h/o bipolar disorder and NIKKIE, presenting for f/u visit. She repots mood has been stable since her last appt. Denies any recent or current manic/hypomanic/mixed mood symptoms. Denies depressed mood. Notes her appetite has been lower lately but does not endorse any other depressive symptoms. She lost about 10 lbs over the last 3 weeks.Anxiety level has improved significantly with lexapro and pt notes that she has only needed to use ativan on one occasion since filling the prescription for a panic attack. She notes that it caused sedation so she will probably only use it for severe panic attacks at night. Intrusive thoughts have lessened significantly, so that now they are only fleeting and do not cause her any distress. Pt denies any psychotic symptoms. Denies SI/HI. Med adherent and denies side effects. No AVH nor delusions noted. Pt denies any SI/HI. 10/03/24: Rosalva Huang is a 34 year old female with h/o bipolar disorder and NIKKIE. Pt reports she has been stable with respect to mood. No recent manic/mixed or depressive mood symptoms endorsed. She has noticed that the lexapro has been helping a lot with anxiety and intrusive thoughts. Still having panic attacks a few times a week. Only takes ativan when she doesn't have to drive/leave the house since it makes her drowsy, but it helps with panic symptoms. She is willing to try increasing he dose of lexapro to see if this will help more with her anxiety. Previously had some mood switching briefly after starting lexapro ("felt hyper"), with some noted depressive and hypomanic symptoms briefly, which resolved after about 2 weeks. Currently reports mood has been very stable. Tolerating medications and is adherent. No new side effects noted. Denies issues with sleep, energy, concentration. No SI/HI endorsed. Interim substance use history: Social History Substance and Sexual Activity Drug Use Not Currently Types: Opioids, Marijuana Comment: When she was 17 she had a problem with marijuana and prescription drug abuse (snorted Xanax and abused pain pills) and she got in trouble at 17 and at 18 she stopped Tobacco History Tobacco Use Smoking Status Never Smokeless Tobacco Never Social History Substance and Sexual Activity Alcohol Use Not Currently Comment: has not drank since she was 18 Meds: Outpatient Medications Prior to Visit Medication Sig Dispense Refill ubrogepant (UBRELVY) 100 mg tab Take 100 mg by mouth escitalopram (LEXAPRO) 10 mg tablet Take 1 Tablet by mouth once daily Start after taking 7.5 mg lexapro daily x 7 days. 30 Tablet 2 lamoTRIgine (LAMICTAL) 200 mg tablet Take 1 Tablet by mouth once daily 30 Tablet 2 risperiDONE (RISPERDAL) 0.5 mg tablet Take 1 Tablet by mouth once daily as needed for other reason (hypomanic symptoms) 30 Tablet 2 risperiDONE (RISPERDAL) 2 mg tablet Take 1 Tablet by mouth nightly at bedtime Take together with 0.5 mg for total 2.5 mg daily dosage 30 Tablet 2 LORazepam (ATIVAN) 0.5 mg tablet Take 1 Tablet by mouth once daily as needed for anxiety 30 Tablet 0 escitalopram oxalate (LEXAPRO) 5 mg tablet 1 tab po daily 30 Tablet 1 onabotulinumtoxinA (BOTOX) 200 unit solr injection Inject 200 Units into the skin Every 12 Weeks ibuprofen 800 mg tablet Take 800 mg by mouth every 8 (eight) hours as needed methylcellulose, laxative, (CITRUCEL) 500 mg tab tab Take 1,000 mg by mouth every 8 (eight) hours as needed amoxicillin (AMOXIL) 875 mg tablet TAKE 1 TABLET BY MOUTH TWICE DAILY FOR 7 DAYS rimegepant (NURTEC ODT) 75 mg TbDi Take 75 mg by mouth acetaminophen (TYLENOL) 500 mg tablet ONETOUCH VERIO TEST STRIPS strips No facility-administered medications prior to visit. Objective 06/13/2024 1:59 PM BP 106/78 BP Site Left Arm BP Position Sitting Pulse 85 Weight 158 lb (71.7 kg) % Change in weight NA Height 5' 2" (157.5 cm) Estimated body mass index is 28.9 kg/m as calculated from the following: Height as of 06/13/24: 5' 2" (1.575 m). Weight as of 06/13/24: 158 lb (71.7 kg). Mental Status Exam Appearance is appropriate for circumstance and neat. as able to visualize on videoconference General Health is generally good. as able to visualize on videoconference Eye Contact is good. as able to visualize on video Motor Activity is unremarkable. as able to visualize on video Speech is unremarkable. Affect is full range and mood-congruent. Reported Mood is neutral/euthymic. Thought Content is unremarkable does not have suicidal ideations, does not have homicidal ideations and does not have delusions. Thought Process is unremarkable. Perception is unremarkable does not have hallucinations. Attention is alert. Demeanor is appropriate for situation and cooperative. Insight is appropriate. Judgement is appropriate. Orientation is fully oriented. Memory is grossly intact. MSE Comments: Videoconferencing limited full visualization of facial expressions. Unable to assess gait as pt was seated for session. Data Reviewed (labs, BASIS-24, AIMS, outside records, etc): Lab Results Component Value Date CHOL 207 (H) 06/13/2024 LDL 135 (H) 06/13/2024 HDL 48 06/13/2024 TRIGLYC 135 06/13/2024 HGBA1C 5.4 06/13/2024 BASIS-24 Clinical Severity - Most Recent Administration Date Administered: 06/13/2024 Domain Subscore & Severity Depression/Functioning 0.88 - Low Interpersonal Relationships 3.39 - High Self-Harm 0 - Low Emotional Lability 2.22 - High Psychosis 0 - Low Alcohol/Drug Use 0 - Low BASIS-24 Overall Score 1.29 - Moderate Reference: BASIS-24 Behavior and Symptom Identification Scale: Clinical Cut Scores. Jama Patel (2018). Last Menstrual Period: Assessment Safety Risk Assessment: Acute risk for harm to self/others: Low Chronic risk for harm to self/others: Low No SI/intent/plan. No thoughts of hurting others/HI. No access to weapons. Plan Risks, benefits, and alternatives were discussed. Patient/guardian understood and agreed with the plan. Reviewed Safety Plan: Call 911 or go to ED if in crisis. Advised of availability of after hours RN by calling main number for [facility]. 1. Bipolar disorder in full remission, most recent episode unspecified type ([facility]) (Primary) Overview: Stable on current medication regimen Assessment & Plan: Continue Lamotrigine and Risperdal for mood stabilization Orders: - RN NURSING PER 15 MIN - lamoTRIgine (LAMICTAL) 200 mg tablet; Take 1 Tablet by mouth once daily, Disp-30 Tablet, R-1 e-Prescribing, Long-term Dispense: 30 Tablet; Refill: 1 - risperiDONE (RISPERDAL) 2 mg tablet; Take 1 Tablet by mouth nightly at bedtime Take together with 0.5 mg for total 2.5 mg daily dosage, Disp-30 Tablet, R-1 e-Prescribing, Long-term Dispense: 30 Tablet; Refill: 1 - risperiDONE (RISPERDAL) 0.5 mg tablet; Take 1 Tablet by mouth once daily as needed for other reason (hypomanic symptoms), Disp-30 Tablet, R-1 e-Prescribing, Long-term Dispense: 30 Tablet; Refill: 1 2. Generalized anxiety disorder Overview: Symptoms have responded well to SSRI in combination with mood stabilizing medication to prevent mood cycling/abigail/hypomania Assessment & Plan: Continue lexapro 10 mg daily and prn use of ativan for severe panic attacks. No refills on ativan today as pt has plenty to last until her next appt. Orders: - escitalopram (LEXAPRO) 10 mg tablet; Take 1 Tablet by mouth once daily, Disp-30 Tablet, R-1 e-Prescribing, Long-term Dispense: 30 Tablet; Refill: 1 3. Other obsessive-compulsive disorders Comments: primarily obsessive type Overview: Intrusive/obsessive thoughts have resolved with current medication regimen. Assessment & Plan: Continue lexapro and Risperdal at current doses Follow-up: No follow-ups on file. Upcoming Appointments: Appointments for the next 13 months 12/30/2024 11:00 AM COUNSELING STANDARD [facility] VASQUEZ Whaley 45 min 01/30/2025 9:20 AM MEDICATION MANAGEMENT [facility] [id number] BW NURSE LUCI MONTANA 20 min 01/30/2025 9:40 AM MEDICATION MANAGEMENT [facility] Herberth Montana DO 20 min Reason for visit: Psychiatric Med Management Rosalva presents prior to their psychiatry provider visit to evaluate medication effectiveness, update medical history, and review overall treatment status. Video conference visit (Leia.). Patient identity confirmed via name and date of . Potential risks and benefits discussed with patient/guardian, who verbalized consent for telehealth encounter. Patient location: home. Subjective Interval history and patient concerns: Client reports things have been going good. Mood is good. No major mood swings. Denies depression symptoms. Denies thoughts of self harm or harming others. Some occasional intrusive thoughts but reports they are "way better" with the lexapro. Denies any problems with medication. Anxiety is a lot better. Denies manic symptoms. Sleep is good. Appetite is decreased lately. Eating less. Denies hallucinations or delusional thoughts. Kids are doing well. Denies any problems at home. Current Outpatient Medications Medication Instructions acetaminophen (TYLENOL) 500 mg tablet No dose, route, or frequency recorded. amoxicillin (AMOXIL) 875 mg tablet TAKE 1 TABLET BY MOUTH TWICE DAILY FOR 7 DAYS CitruceL 1,000 mg, Every 8 hours PRN escitalopram (LEXAPRO) 10 mg, oral, Daily, Start after taking 7.5 mg lexapro daily x 7 days. escitalopram oxalate (LEXAPRO) 5 mg tablet 1 tab po daily ibuprofen 800 mg, Every 8 hours PRN lamoTRIgine (LAMICTAL) 200 mg, oral, Daily LORazepam (ATIVAN) 0.5 mg, oral, Daily PRN Nurtec ODT 75 mg onabotulinumtoxinA (BOTOX) 200 Units, EVERY 12 Weeks ONETOUCH VERIO TEST STRIPS strips No dose, route, or frequency recorded. risperiDONE (RISPERDAL) 0.5 mg, oral, Daily PRN risperiDONE (RISPERDAL) 2 mg, oral, NIGHTLY, Take together with 0.5 mg for total 2.5 mg daily dosage Ubrelvy 100 mg Reported medication adherence: yes Reported medication side effects: denies New medical problems or history: recent respiratory infection/pneumonia. Objective Vitals not currently . Mental Status Exam: Behavior: generally relaxed and engaged, cooperative Speech: unremarkable Mood: neutral Affect: appropriate for circumstance Thought content: unremarkable Perception: unremarkable Additional objective data: BASIS-24 Clinical Severity - Most Recent Administration Date Administered: 06/13/2024 Domain Subscore & Severity Depression/Functioning 0.88 - Low Interpersonal Relationships 3.39 - High Self-Harm 0 - Low Emotional Lability 2.22 - High Psychosis 0 - Low Alcohol/Drug Use 0 - Low BASIS-24 Overall Score 1.29 - Moderate Reference: BASIS-24 Behavior and Symptom Identification Scale: Clinical Cut Scores. Jama Patel (2018). BASIS-24 results were not reviewed. Assessment Provider diagnosis and treatment plan reviewed. F31.75 Bipolar disorder, in partial remission, most recent episode depressed ([facility]) (primary encounter diagnosis) Z29.9 Preventive measure Comment: Risk Assessment: Acute risk for harm to self/others: Low Plan Verified patient medications and allergies; updated patient medical history in medical record. Provided report to Dr. Montana regarding patient concerns and status. Follow up as scheduled Upcoming appointments: Appointments for the next 13 months 12/05/2024 9:00 AM MEDICATION MANAGEMENT [facility] Kevin DO Rubén 20 min 12/16/2024 10:30 AM COUNSELING STANDARD [facility] VASQUEZ Whaley 45 min documented in this encounter [facility] Work Phone: 11-28-2024 History of Presen t illness Narrative Missed 11/28/24 follow up documented in this encounter [facility] Work Phone: 11-25-2024 History of Presen t illness Narrative Reason for Visit: Individual Counseling Video conference visit (Leia.). Patient identity confirmed via name and date of . Potential risks and benefits discussed with patient/guardian, who verbalized consent for telehealth encounter. Patient location: home. 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 CL stated having plans of having friends over and making drinks. cL reports having anxiety occasionallly but mood and intrusive thoughts have has signifignat improvement since change in Lexapro. CL expressed feeling excited about getting nose peirced over weekend. CL stated cutting foot outside and having hard time walking but not wanting to go to doctor. F41.1 Generalized anxiety disorder (primary encounter diagnosis) Mental Status Exam: Within normal limits. Intervention: Provider addressed Rosalva's concerns related to the presenting problem above through the following therapeutic interventions: Active and reflective listening and Empowerment and choice. Acute risk for harm to self/others: Low C-SSRS Screen Response/Impression: Rosalva demonstrated moderate improvement in session today as evidenced by listing self care activities and feeling excited about upcoming plans for piercing. Overall impression of treatment demonstrates moderate improvement as evidenced by self reports of improvements in both physical and mental health. TH and CL explored feeling comfortable with making own choices about body piercings and having a drink a social drink after Aunts judgements due to lutheran beliefs BASIS-24 Clinical Severity - Most Recent Administration Date Administered: 06/13/2024 Domain Subscore & Severity Depression/Functioning 0.88 - Low Interpersonal Relationships 3.39 - High Self-Harm 0 - Low Emotional Lability 2.22 - High Psychosis 0 - Low Alcohol/Drug Use 0 - Low BASIS-24 Overall Score 1.29 - Moderate Reference: BASIS-24 Behavior and Symptom Identification Scale: Clinical Cut Scores. Jama Patel (2018). BASIS-24 results were reviewed. Plan: Rosalva's follow-up/homework: CL will watch injured foot for infection and reach out to doctor if need before upcoming appt following week. Provider's follow-up/referrals/action items: N/A Next appointment with this provider:12/16/24 documented in this encounter [facility] Work Phone: 11-11-2024 Telephone encounter Note Reason for Call: feels like heart is racing Outcome: Based on symptoms and assessment findings at this time, Patient advised to go the Emergency Room now. Patient does not prefer the ER. Patient plans to go to [facility]. Patient encouraged to call back after she is seen for an appointment to establish care with a pcp. Reason for Disposition Feeling weak or lightheaded (e.g., woozy, feeling like they might faint) NURSING JUDGMENT: feels like heart is racing; feels worse than when seen in ER two days ago; denies chest pain, denies cough; reports she feels shaky, light headed, and like her heart is racing; HR 76 Protocols used: Heart Rate and Heartbeat [id number] [facility] 11-11-2024 Miscellaneous Notes Reason for Call: feels like heart is racing Outcome: Based on symptoms and assessment findings at this time, Patient advised to go the Emergency Room now. Patient does not prefer the ER. Patient plans to go to [facility]. Patient encouraged to call back after she is seen for an appointment to establish care with a pcp. Reason for Disposition Feeling weak or lightheaded (e.g., woozy, feeling like they might faint) NURSING JUDGMENT: feels like heart is racing; feels worse than when seen in ER two days ago; denies chest pain, denies cough; reports she feels shaky, light headed, and like her heart is racing; HR 76 Protocols used: Heart Rate and Heartbeat [id number] documented in this encounter [facility] 11-09-2024 Note [facility] 11-09-2024 History of Presen t illness Narrative Radiology Service Progress Note PATIENT NAME: Rosalva Huang DATE OF SERVICE: November 09, 2024 TIME: 1:19 PM PATIENT IDENTITY VERIFICATION COMPLETED USING TWO (2) IDENTIFIERS: Name and Date of confirmed by patient verbally. FALL SCREENING: Has the patient had 2 falls in the last year or 1 fall with injury or currently using an Ambulatory Assistive Device (Walker, Cane, Wheelchair, Crutches, etc.)? No PATIENT GENDER DATA: Female. status: : No status: NO. PATIENT RELEVANT IMPLANT DATA REVIEWED: Not Applicable PATIENT PRESENTS WITH AN IMPLANTABLE OR ATTACHED RECREATIONAL LEADER: No RADIOLOGY DEPARTMENT: General X-ray: Exam(s) Completed: Chest X-Ray PERIPHERAL IV DATA: Not applicable SIGNED BY: RT Anette(R) November 09, 2024 1:19 PM documented in this encounter [facility] 11-09-2024 Note SARS-COV-2 (AGENT OF COVID-19) RNA: Not detected INFLUENZA A RNA: Not detected INFLUENZA B RNA: Not detected RESPIRATORY SYNCYTIAL VIRUS (RSV) RNA: Not detected [facility] Comment on above: Performed By: #### [id number] ####[facility] LWCLIA [id number] [address] [place] 10-28-2024 History of Presen t illness Narrative Reason for Visit: Individual Counseling Problem: CL expressed feeling concerned after daughter having swollen eye and not getting answers from doctors about problem. CL informed of re-homing two dogs through facebook and feeling less stressed in home. CL stated still having two dogs and after rescuing another cat, two cats. CL stated, "I've been doing some soul searching". 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 CL stated, "I need a challenging job and everything else I've done has been too easy". CL stated feeling great since stating meds and doubling dose of Lexapro. CL stated having minimal intrusive thoughts. CL reports having a few drinks over holidays. F42.2 Mixed obsessional thoughts and acts (primary encounter diagnosis) Mental Status Exam: Within normal limits. Intervention: Provider addressed Rosalva's concerns related to the presenting problem above through the following therapeutic interventions: Active and reflective listening and Motivational interviewing. Acute risk for harm to self/others: Low C-SSRS Screen Response/Impression: Rosalva demonstrated minimal improvement in session today as evidenced by self reports of feeling physically better and having manageable stressors. Overall impression of treatment demonstrates minimal improvement as evidenced by being able to make choices about re-homing two dos without having intense guilt. TH and CL explored what schooling would like for manager it security and what types of qualifications would be needed for wanted jobs. TH asked open ended questions about reports of using alcohol. TH educated CL about social drinking versus addictive drinking. TH and cL explored past addictions with pills during adolescence and being mindful of recognizing behaviors. BASIS-24 Clinical Severity - Most Recent Administration Date Administered: 06/13/2024 Domain Subscore & Severity Depression/Functioning 0.88 - Low Interpersonal Relationships 3.39 - High Self-Harm 0 - Low Emotional Lability 2.22 - High Psychosis 0 - Low Alcohol/Drug Use 0 - Low BASIS-24 Overall Score 1.29 - Moderate Reference: BASIS-24 Behavior and Symptom Identification Scale: Clinical Cut Scores. Jama Patel (2018). BASIS-24 results were not reviewed. Plan: Rosalva's follow-up/homework: CL will continue to self assess to make decisions for future schooling. Provider's follow-up/referrals/action items: N/A Next appointment with this provider: 11/11/24 documented in this encounter [facility] Work Phone: 10-24-2024 Instructions Chuckie Hall APRN.LOUIS - 10/24/2024 2:52 PM EST ASSESSMENT/PLAN: 1. Vaginal discharge - ICD9: 623.5, ICD10: N89.8 - ALESSANDRA/TRICHOMONAS NAAT - BACTERIAL VAGINOSIS NAAT - GONORRHEA/CHLAMYDIA NAAT - FLUCONAZOLE 150 MG TABLET - Follow up with PCP/SPECIAL EDUCATION COORDINATOR service or return to [facility] if symptoms persists or worsens - All questions answered Chuckie Hall CNP [facility] PATIENT INFO VAGINAL YEAST INFECTION INTRODUCTION Vaginal yeast infections are a common problem in women. Vaginal yeast infections are also called yeast vaginitis or vaginal candidiasis. The most common symptoms of a yeast infection are itching and irritation of the vulva and around the opening of the vagina. Yeast infections occur mainly in women who are menstruating (having monthly periods). They are less common in postmenopausal women who do not take estrogen and in girls who have not yet started menstruating. VAGINAL YEAST INFECTION SYMPTOMS The most common symptoms of a yeast infection include: Itching or irritation of the vulva and around the vaginal opening. Pain with urination, vulvar soreness or irritation, Pain with intercourse Reddened and swollen vulvar and vaginal tissues. Some women have no abnormal vaginal discharge. Others have white clumpy (curd-like) or watery vaginal discharge. Symptoms of a yeast infection are similar to a number of other conditions, including bacterial vaginosis (a bacterial infection of the vagina), trichomoniasis (a sexually transmitted infection), and dermatitis (irritated skin). It is often not possible to know if itching is caused by yeast or other causes. VAGINAL YEAST INFECTION CAUSE The fungus that causes yeast infections (named Alessandra) normally lives in the gastrointestinal tract and sometimes the vagina. Normally, Alessandra causes no symptoms. However, when there are changes in the normal nia of the gastrointestinal tract and vagina (caused by medicines, injury, or stress to the immune system), Alessandra can overgrow and cause the symptoms described above. VAGINAL YEAST INFECTION RISK FACTORS In most women, there is no underlying health problem that leads to a yeast infection. There are several risk factors that may increase the chances of developing an infection, including: Antibiotics -- Most antibiotics kill a wide variety of bacteria, including those that normally live in the vagina. These bacteria protect the vagina from the overgrowth of yeast. Some women are prone to yeast infections while taking antibiotics. Hormonal contraceptives (eg, control pills, patch, and vaginal ring) -- The risk of yeast infections may be higher in women who use control methods containing estrogen. Contraceptive devices -- Vaginal sponges, diaphragms, and intrauterine devices (IUDs) may increase the risk of yeast infections. Spermicides do not usually cause yeast infections, although they can cause you to have vaginal or vulvar irritation. Weakened immune system -- Yeast infections are more common in people who have a weakened immune system due to HIV or use of certain medications (steroids, chemotherapy, post-organ transplant medications). -- Vaginal discharge becomes more noticeable during , although yeast infection is not always the cause. Diabetes -- Women with diabetes are at higher risk for yeast infections, especially if blood sugar levels are often higher than normal. Sexual activity -- Vaginal yeast infections are not a sexually transmitted infection. They can occur in women who have never been sexually active, but are more common in women who are sexually active. VAGINAL YEAST INFECTION DIAGNOSIS Yeast infections can be diagnosed with an exam. During the exam, your doctor or nurse will examine your vulva and vagina and swab the vagina to get a sample of discharge. Do not begin treatment at home before being examined. Self-diagnosis -- Women with vulvar itching or vaginal discharge often assume that their symptoms are caused by a yeast infection and then use a non-prescription treatment. However, in one study, only 11 percent of women accurately diagnosed their infection; women with a previous yeast infection were only slightly more accurate (35 percent correct). Diagnosing and treating yourself: Wastes money (on non-prescription treatment) Wastes time; you will not feel better until you use the right treatment Can make you more itchy and irritated VAGINAL YEAST INFECTION TREATMENT Treatment of a vaginal yeast infection may include a pill that you take by mouth or a vaginal treatment. Vaginal treatment -- Treatment for a vaginal yeast infection often includes a vaginal cream or tablet. You apply the cream or tablet inside the vagina at bedtime with an applicator. There are prescription and non-prescription treatments, so ask your doctor or nurse which to use. One, three, and seven-day treatments are equally effective. Oral treatment -- A prescription pill called fluconazole (Diflucan ) is another option for treating yeast infections. Most women only need one dose, although women with more complicated infections (such as those with underlying medical problems, recurrent yeast infections, or severe signs and symptoms) may require a second dose 72 hours (3 days) after the first dose. Side effects of fluconazole are mild and infrequent, but may include stomach upset, headache, and rash. Fluconazole interacts with a number of medications; ask your doctor, nurse, or pharmacist if you have concerns. Fluconazole is not usually recommended during the first trimester of due to the potential risk of harm to the fetus. When will I feel better? -- Most yeast infections go away within a few days after starting treatment. However, you may continue to feel itchy and irritated, even after the infection is gone. If you do not get better within a few days after finishing treatment, call your doctor or nurse for advice. RECURRENT VAGINAL YEAST INFECTIONS Between 5 and 8 percent of women have recurrent yeast infections, defined as more than four infections per year. There is no evidence that eating yogurt or other products containing live Lactobacillus acidophilus, or applying these products to the vagina is of any benefit in women with recurrent vaginal yeast infections. Diagnosis -- As with initial yeast infections, it is important to correctly diagnose recurrent yeast infections. A woman who has frequent signs and symptoms of vulvar or vaginal irritation or itching should be seen by a healthcare provider to ensure that her symptoms are caused by yeast rather than other common problems (eg, other vaginal infections, allergic reaction or sensitivity, eczema). As with initial infections, self-diagnosis is not accurate enough to recommend treatment. Treatment -- Women with recurrent infections are usually given a longer course of treatment for infections, between 7 and 14 days for a topical (cream or suppository) medication or fluconazole 150 mg by mouth with a second and third dose 3 and 6 days later. Preventive treatment may be recommended after the infection has resolved; this may include fluconazole (150 mg orally once per week) or clotrimazole (500 mg vaginal suppositories administered once per week). Treatment of a sexual partner -- Vaginal yeast infections are not a sexually transmitted infection, although the infection may rarely be passed from one partner to another. Most experts do not recommend treatment of a sexual partner. SUMMARY Vaginal yeast infections are a common problem in women. Itching is the most common symptom of a vaginal yeast infection. Women may also note pain with urination, soreness or irritation, pain with intercourse, or reddened and swollen vulvar and vaginal tissues. There is often little or no vaginal discharge; if present, discharge is typically white and clumpy (curd-like) or thin and watery. Symptoms of a yeast infection are similar to a number of other conditions. A physical examination is needed to determine the cause of symptoms. There are several risk factors that may increase the chances of developing a yeast infection, including use of antibiotics, control, diabetes, , and a weakened immune system (due to chemotherapy, HIV, or certain medications). To diagnose a vaginal yeast infection, a healthcare provider will do an examination. It is important to be seen when symptoms are bothersome and before any treatment is used. Do not begin treatment for a yeast infection before being examined. Treatment of vaginal yeast infection may include a vaginal cream or tablet or a pill taken by mouth. documented in this encounter [facility] 10-24-2024 Note [facility] 10-24-2024 History of Presen t illness Narrative cc - vaginal discharge HPI - Rosalva Huang is an 34 year old woman who presents with vaginitis. Symptoms include discharge described as odorless, white, local irritation, and vulvar itching. Onset of symptoms 3 day(s) ago, constant since. Dysuria: No Increase in frequency of urination: No Urgency: No Sense of incomplete void: No Fevers: No Chills: No Sweats: No Vomiting: No Diarrhea: No Abdominal pain: No: Blood visible in urine: No New onset of back pain: No Any self-treatment attempted? 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 PAST MEDICAL HISTORY Diagnosis Date Endometriosis 10/26/2014 never had diagnostic lap to confirm, patient did not want surgery Gestational diabetes mellitus (GDM) affecting second 05/25/2022 Infertility, female Migraine without aura and without status migrainosus, not intractable 07/18/2019 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HCC) 08/27/2015 Panic disorder without agoraphobia PMH - PAST MEDICAL HISTORY OF color vision normal PMH - PAST MEDICAL HISTORY OF "vascular disease" 01/2002 PMH - PAST MEDICAL HISTORY OF wearing glasses and broke ankle at age 3, wrist fracture depression PAST SURGICAL HISTORY Procedure Laterality Date 2D ECHO COMPLETE INP 01/03/2015 EF=67%, WNL SNGL 07/22/2022 FAMILY HISTORY Problem Relation Age of Onset Asthma Mother Psychiatry Mother Bi-Polar Hypertension Maternal Grandmother Heart Maternal Grandfather triple by pass heart diagnosed in Stroke Paternal Grandmother Cancer Paternal Grandmother Heart Paternal Grandfather heart attack. . Emphysema Paternal Grandfather Diabetes Other maternal side Social History Tobacco Use Smoking status: Never Passive exposure: Never Smokeless tobacco: Never Tobacco comments: Pt denies Vaping Use Vaping status: Never Used Substance Use Topics Alcohol use: No Drug use: No Comment: Pt denies Current Outpatient Medications Medication Sig escitalopram oxalate (LEXAPRO) 5 mg tablet Take 1 tablet by mouth once daily. lamoTRIgine (LAMICTAL) 200 mg tablet Take 1 tablet by mouth once daily. risperiDONE (RISPERDAL) 2 mg tablet Take 2 mg by mouth daily at bedtime. risperiDONE (RISPERDAL) 0.5 mg tablet Take 0.5 mg by mouth at bedtime as needed. acetaminophen (TYLENOL) 325 mg tablet Take 650 mg by mouth every 6 hours as needed. ubrogepant (UBRELVY) 100 mg tablet Take 1 tablet by mouth as needed (migraine). take 1 at onset of migraine, may repeat in 2 hours if necessary. No more than 2 pills in 24 hours. LORazepam (ATIVAN) 0.5 mg Take 0.5 mg by mouth at bedtime as needed. Current Facility-Administered Medications Medication Dose Route Frequency onabotulinum toxin type A 200 Units injection (BOTOX) 200 Units INTRADERMAL every 12 weeks ALLERGIES Allergen Reactions Onion GI Upset Adhesive Tape (Rita* Rash, Itching Patient reports unable to tolerate band-aids after a procedure. She noted redness and itching at site of band aid. Mosquitos Swelling Phenergan [Prometha* GI Upset Sunscreen Rash Tingle tanning lotion Zyrtec [Cetirizine * Mental Status Change Made her very drowsy, PHYSICAL EXAMINATION: BP 106/66 (BP Site: Right Arm, BP Position: Sitting, BP Cuff Size: Regular Adult) Pulse 70 Temp 36.7 C (98.1 F) (Oral) Resp 20 Wt 76.8 kg (169 lb 5 oz) LMP (LMP Unknown) SpO2 98% BMI 29.99 kg/m General Appearance: age-appropriate female ABDOMEN: Soft,non-tender neg flank pain bilat Vaginal discharge - deferred; she swabbed self ASSESSMENT/PLAN: 1. Vaginal discharge - ICD9: 623.5, ICD10: N89.8 - ALESSANDRA/TRICHOMONAS NAAT - BACTERIAL VAGINOSIS NAAT - GONORRHEA/CHLAMYDIA NAAT - FLUCONAZOLE 150 MG TABLET - Follow up with PCP/SPECIAL EDUCATION COORDINATOR service or return to [facility] if symptoms persists or worsens - All questions answered Chuckie Hall CNP documented in this encounter [facility] 10-11-2024 History of Presen t illness Narrative Reason for Visit: Individual Counseling Telephone visit. Patient identity confirmed via name and date of . Potential risks and benefits discussed with patient/guardian, who verbalized consent for telehealth encounter. Reason for Telephone: Other: TH returned CL call request and completed on the fly encounter. Patient location: home. Problem: TH returned client call and was able to and discuss any current needs and complete an encounter on the fly. CL reported having pneumonia for past three weeks and having on-going cycle of being sick within home. CL stated besides physical symptoms for not feeling well mental health has been good.CL reports since having in increase in [place] anxiety has significantly decreased anxiety. CL expressed feeling a little nervous about taking an exam for insurance. CL informed once passed can start working for an [employer]. F42.2 Mixed obsessional thoughts and acts (primary encounter diagnosis) Mental Status Exam: Appearance: unable to assess Behavior: cooperative Speech: unremarkable Mood: neutral Affect: appropriate for circumstance Thought content: unremarkable Perception: unremarkable Insight: appropriate Judgement: appropriate Intervention: Provider addressed Rosalva's concerns related to the presenting problem above through the following therapeutic interventions: Active and reflective listening. Acute risk for harm to self/others: Low C-SSRS Screen Response/Impression: Rosalva demonstrated minimal improvement in session today as evidenced by self reports. Overall impression of treatment demonstrates minimal improvement as evidenced by self reports of overall reduced symptoms for anxiety since change in meds and progressing with working on professional goal for self. BASIS-24 Clinical Severity - Most Recent Administration Date Administered: 06/13/2024 Domain Subscore & Severity Depression/Functioning 0.88 - Low Interpersonal Relationships 3.39 - High Self-Harm 0 - Low Emotional Lability 2.22 - High Psychosis 0 - Low Alcohol/Drug Use 0 - Low BASIS-24 Overall Score 1.29 - Moderate Reference: BASIS-24 Behavior and Symptom Identification Scale: Clinical Cut Scores. Jama Patel (2018). BASIS-24 results were not reviewed. Plan: Rosalva's follow-up/homework: CL will make conscious effort to get enough sleep, hydrate and monitor physical symptoms. Provider's follow-up/referrals/action items: N/A Next appointment with this provider: 10/28/2024 documented in this encounter [facility] Work Phone: 10-11-2024 Nurse Note TH outreached to client and left VM requesting a call back with provided number documented in this encounter [facility] Work Phone: 10-06-2024 Nurse Note TH outreachedto CL regardig missed appt. CL children answered phone. Due to age of children therapist was unable to to connect with client after saying hello multiple time. TH will provide follow up call next week. documented in this encounter [facility] Work Phone: 10-03-2024 Telephone encounter Note Patient informed via [employer]. [facility] 10-03-2024 Miscellaneous Notes Patient informed via [employer]hart. Ambulatory Pharmacy Prior Authorization Note Provider Intervention Required?: No- Pharmacy completed on your behalf. Rx Plan: Medicaid [facility] (Aruna) Drug: Ubrelvy 100MG tablets Cover My Meds Guido: [id number] Determination: Approved Prior Authorization/Case #: [id number] Prior Authorization Expiration: 03/27/2025 Time to PA Submission in CMM: 15 min Time to PA Determination in CMM: Same day Additional Information: PLEASE NOTE: Pt will need follow up office visit to review/document efficacy and tolerability of treatment before prior auth expiration. Please ensure a future follow up appt is scheduled with your patient. This will ensure no interruption in patient's ability to obtain medication refills. Prescriptions will now be processed through [facility] for determination of next steps. For questions relating to this submission, please contact [facility] at [phone] documented in this encounter [facility] 10-03-2024 History of Presen t illness Narrative Subjective Video conference visit (Doxy.me). Patient identity confirmed via name and date of . Potential risks and benefits discussed with patient/guardian, who verbalized consent for telehealth encounter. Patient location: home. Chief Complaint: Psychiatric Med Management [facility] 10/03/24: Rosalva Huang is a 34 year old female with h/o bipolar disorder and NIKKIE. Pt reports she has been stable with respect to mood. No recent manic/mixed or depressive mood symptoms endorsed. She has noticed that the lexapro has been helping a lot with anxiety and intrusive thoughts. Still having panic attacks a few times a week. Only takes ativan when she doesn't have to drive/leave the house since it makes her drowsy, but it helps with panic symptoms. She is willing to try increasing he dose of lexapro to see if this will help more with her anxiety. Previously had some mood switching briefly after starting lexapro ("felt hyper"), with some noted depressive and hypomanic symptoms briefly, which resolved after about 2 weeks. Currently reports mood has been very stable. Tolerating medications and is adherent. No new side effects noted. Denies issues with sleep, energy, concentration. No SI/HI endorsed. 06/13/24: Recently developed hypomanic symptoms and feeling so revved up (though denies decreased sleep). She felt it was getting worse (even with the risperdal and lamotrigine on board) so stopped taking the lexapro. Denies impulsivity or risk-taking behaviors. C/o flight of ideas, feeling hyperactive and irritability/rage. Has required 2-3 extra doses of risperdal 0.5 mg when she feels "manicky" - she is also sleep deprived. Notes that these symptoms improved after stopping lexapro, but anxiety is also increased. Willing to try a lower dose and slower rate of increasing the lexapro so long as she can take PRN doses of risperdal if she feels too revved up. Denies depressive symptoms. Denies AVH. Denies SI/HI. Boyfriend thinks she may have autism. Sometimes will say things that are perceived as rude or wrong. People get offended by her in social situations. She also has trouble making eye contact with people since she was younger. Interim substance use history: Social History Substance and Sexual Activity Drug Use Not Currently Types: Opioids, Marijuana Comment: When she was 17 she had a problem with marijuana and prescription drug abuse (snorted Xanax and abused pain pills) and she got in trouble at 17 and at 18 she stopped Tobacco History Tobacco Use Smoking Status Never Smokeless Tobacco Never Social History Substance and Sexual Activity Alcohol Use Not Currently Comment: has not drank since she was 18 Meds: Outpatient Medications Prior to Visit Medication Sig Dispense Refill ubrogepant (UBRELVY) 100 mg tab Take 100 mg by mouth LORazepam (ATIVAN) 0.5 mg tablet Take 1 Tablet by mouth once daily as needed for anxiety 30 Tablet 0 escitalopram oxalate (LEXAPRO) 5 mg tablet 1 tab po daily 30 Tablet 1 lamoTRIgine (LAMICTAL) 200 mg tablet Take 1 Tablet by mouth once daily 30 Tablet 1 risperiDONE (RISPERDAL) 0.5 mg tablet Take 1 Tablet by mouth nightly at bedtime With 2 mg for total 2.5 mg dosage 30 Tablet 1 risperiDONE (RISPERDAL) 0.5 mg tablet Take 1 Tablet by mouth once daily as needed for other reason (hypomanic symptoms) 30 Tablet 1 risperiDONE (RISPERDAL) 2 mg tablet Take 1 Tablet by mouth nightly at bedtime Take together with 0.5 mg for total 2.5 mg daily dosage 30 Tablet 1 onabotulinumtoxinA (BOTOX) 200 unit solr injection Inject 200 Units into the skin Every 12 Weeks ibuprofen 800 mg tablet Take 800 mg by mouth every 8 (eight) hours as needed methylcellulose, laxative, (CITRUCEL) 500 mg tab tab Take 1,000 mg by mouth every 8 (eight) hours as needed amoxicillin (AMOXIL) 875 mg tablet TAKE 1 TABLET BY MOUTH TWICE DAILY FOR 7 DAYS rimegepant (NURTEC ODT) 75 mg TbDi Take 75 mg by mouth acetaminophen (TYLENOL) 500 mg tablet ONETOUCH VERIO TEST STRIPS strips No facility-administered medications prior to visit. Objective 06/13/2024 1:59 PM BP 106/78 BP Site Left Arm BP Position Sitting Pulse 85 Weight 158 lb (71.7 kg) % Change in weight NA Height 5' 2" (157.5 cm) Estimated body mass index is 28.9 kg/m as calculated from the following: Height as of 06/13/24: 5' 2" (1.575 m). Weight as of 06/13/24: 158 lb (71.7 kg). Mental Status Exam Appearance is appropriate for circumstance and neat. as able to visualize on videoconference General Health is generally good. as able to visualize on videoconference Eye Contact is good. as able to visualize on video Motor Activity is unremarkable. as able to visualize on video Speech is unremarkable. Affect is full range and mood-congruent. Reported Mood is neutral/euthymic. Thought Content is unremarkable does not have suicidal ideations, does not have homicidal ideations and does not have delusions. Thought Process is unremarkable. Perception is unremarkable does not have hallucinations. Attention is alert. Demeanor is appropriate for situation. Insight is appropriate. Judgement is appropriate. Orientation is fully oriented. Memory is grossly intact. MSE Comments: Videoconferencing limited full visualization of facial expressions. Unable to assess gait as pt was seated for session. Data Reviewed (labs, BASIS-24, AIMS, outside records, etc): Lab Results Component Value Date CHOL 207 (H) 06/13/2024 LDL 135 (H) 06/13/2024 HDL 48 06/13/2024 TRIGLYC 135 06/13/2024 HGBA1C 5.4 06/13/2024 BASIS-24 Clinical Severity - Most Recent Administration Date Administered: 06/13/2024 Domain Subscore & Severity Depression/Functioning 0.88 - Low Interpersonal Relationships 3.39 - High Self-Harm 0 - Low Emotional Lability 2.22 - High Psychosis 0 - Low Alcohol/Drug Use 0 - Low BASIS-24 Overall Score 1.29 - Moderate Reference: BASIS-24 Behavior and Symptom Identification Scale: Clinical Cut Scores. Jama Patel (2018). Last Menstrual Period: Assessment Safety Risk Assessment: Acute risk for harm to self/others: Low Chronic risk for harm to self/others: Moderate Plan Risks, benefits, and alternatives were discussed. Patient/guardian understood and agreed with the plan. Reviewed Safety Plan: Call 911 or go to ED if in crisis. Advised of availability of after hours RN by calling main number for [facility]. 1. Bipolar disorder in partial remission, most recent episode unspecified type ([facility]) (Primary) - RN NURSING PER 15 MIN - lamoTRIgine (LAMICTAL) 200 mg tablet; Take 1 Tablet by mouth once daily, Disp-30 Tablet, R-2 e-Prescribing, Long-term Dispense: 30 Tablet; Refill: 2 - risperiDONE (RISPERDAL) 0.5 mg tablet; Take 1 Tablet by mouth once daily as needed for other reason (hypomanic symptoms), Disp-30 Tablet, R-2 e-Prescribing, Long-term Dispense: 30 Tablet; Refill: 2 - risperiDONE (RISPERDAL) 2 mg tablet; Take 1 Tablet by mouth nightly at bedtime Take together with 0.5 mg for total 2.5 mg daily dosage, Disp-30 Tablet, R-2 e-Prescribing, Long-term Dispense: 30 Tablet; Refill: 2 2. Generalized anxiety disorder - escitalopram (LEXAPRO) 10 mg tablet; Take 1 Tablet by mouth once daily Start after taking 7.5 mg lexapro daily x 7 days., Disp-30 Tablet, R-2 e-Prescribing, Long-term Dispense: 30 Tablet; Refill: 2 Continue ativan prn for panic attacks- no new rx ordered today. Pt will call if refill is needed prior to next appt. Follow-up: No follow-ups on file. Upcoming Appointments: Appointments for the next 13 months 10/27/2024 10:40 AM NURSE VISIT SHORT [facility] Tessa Dill RN 20 min 11/28/2024 3:20 PM MEDICATION MANAGEMENT [facility] [id number] NURSE LUCI [place] 20 min 11/28/2024 3:40 PM MEDICATION MANAGEMENT [facility] Herberth Montana DO 20 min Reason for visit: Psychiatric Med Management Rosalva presents prior to their psychiatry provider visit to evaluate medication effectiveness, update medical history, and review overall treatment status. Video conference visit (Leia.). Patient identity confirmed via name and date of . Potential risks and benefits discussed with patient/guardian, who verbalized consent for telehealth encounter. Patient location: home. Subjective Interval history and patient concerns: Anxiety high request to increase Lexapro to not take ativan, Better mood,abigail stable, intrusive thoughts,are better,appetite Current Outpatient Medications Medication Instructions acetaminophen (TYLENOL) 500 mg tablet No dose, route, or frequency recorded. amoxicillin (AMOXIL) 875 mg tablet TAKE 1 TABLET BY MOUTH TWICE DAILY FOR 7 DAYS CitruceL 1,000 mg, oral, Every 8 hours PRN escitalopram oxalate (LEXAPRO) 5 mg tablet 1 tab po daily ibuprofen 800 mg, oral, Every 8 hours PRN lamoTRIgine (LAMICTAL) 200 mg, oral, Daily LORazepam (ATIVAN) 0.5 mg, oral, Daily PRN Nurtec ODT 75 mg, oral onabotulinumtoxinA (BOTOX) 200 Units, intradermal, EVERY 12 Weeks ONETOUCH VERIO TEST STRIPS strips No dose, route, or frequency recorded. risperiDONE (RISPERDAL) 0.5 mg, oral, NIGHTLY, With 2 mg for total 2.5 mg dosage risperiDONE (RISPERDAL) 0.5 mg, oral, Daily PRN risperiDONE (RISPERDAL) 2 mg, oral, NIGHTLY, Take together with 0.5 mg for total 2.5 mg daily dosage Ubrelvy 100 mg, oral Reported medication adherence: compliant with medications Reported medication side effects: Denies New medical problems or history: Denies Objective Vitals not currently . Mental Status Exam: Behavior: generally relaxed and engaged Speech: unremarkable Mood: neutral Affect: appropriate for circumstance Thought content: unremarkable Perception: unremarkable BASIS-24 Clinical Severity - Most Recent Administration Date Administered: 06/13/2024 Domain Subscore & Severity Depression/Functioning 0.88 - Low Interpersonal Relationships 3.39 - High Self-Harm 0 - Low Emotional Lability 2.22 - High Psychosis 0 - Low Alcohol/Drug Use 0 - Low BASIS-24 Overall Score 1.29 - Moderate Reference: BASIS-24 Behavior and Symptom Identification Scale: Clinical Cut Scores. Jama Patel (2018). BASIS-24 results were not reviewed. Assessment Provider diagnosis and treatment plan reviewed. F31.75 Bipolar disorder, in partial remission, most recent episode depressed ([facility]) (primary encounter diagnosis) Comment: Risk Assessment: Acute risk for harm to self/others: Low Plan Verified patient medications and allergies; updated patient medical history in medical record. Provided report to Dr. Montana regarding patient concerns and status. Follow up scheduled Upcoming appointments: Appointments for the next 13 months 10/03/2024 9:40 AM MEDICATION MANAGEMENT [facility] Herberth Montana, DO 20 min documented in this encounter [facility] Work Phone: 10-03-2024 Telephone encounter Note Ambulatory Pharmacy Prior Authorization Note Provider Intervention Required?: No- Pharmacy completed on your behalf. Rx Plan: Medicaid [facility] ([facility]) Drug: Ubrelvy 100MG tablets Cover My Meds Guido: [id number] Determination: Approved Prior Authorization/Case #: [id number] Prior Authorization Expiration: 03/27/2025 Time to PA Submission in CMM: 15 min Time to PA Determination in CMM: Same day Additional Information: PLEASE NOTE: Pt will need follow up office visit to review/document efficacy and tolerability of treatment before prior auth expiration. Please ensure a future follow up appt is scheduled with your patient. This will ensure no interruption in patient's ability to obtain medication refills. Prescriptions will now be processed through [facility] for determination of next steps. For questions relating to this submission, please contact [facility] at [phone] [facility] 09-27-2024 Instructions Jaja Moss APRN.LOUIS - 09/27/2024 10:02 AM EST Instruction after Botox injection: - If you have any pain or swelling use ice, 20 min on and 20 min off. Do not rub or massage the area for 24 hrs. - If you have any neck stiffness, you may use heat and do stretching exercises. - This should improve over the next 5 days. - If it does not, call our office at [phone] for further instructions. Ubrelvy is a calcitonin gene-related peptide receptor antagonist indicated for the use of acute migraine treatment. Ubrelvy can be taken as needed to treat an acute migraine. If no relief from symptoms within 2 hours, Ubrelvy can be repeated. Ubrelvy should be taken at the first sign of a migraine attack. documented in this encounter [facility] 09-27-2024 Note [facility] 09-27-2024 Procedure note Images from the original note were not included. Headache Center Follow-up Visit Current Preventive: botox Change needed for current preventive? No Current Abortive: nurtec Change needed for current abortive? Yes - Specify: Has not been effective Miscellaneous Patient Concerns: She has had a migraine for 2 days, but otherwise had 4 migraines for the full 3 months! Has not been able to break her headache. Impression: Chronic migraine without aura, intractable, without status migrainosus (primary encounter diagnosis) We will request a precertification for a Calcitonin Gene-Related Peptide Receptor Antagonist (GEPANT) Ubrogepant for the prevention of chronic migraine . This patient meets ICHD-3 criteria for treatment of migraine with a small molecule CGRP antagonist GEPANT. The FDA has approved GEPANTS for the treatment of migraine. Specifically, the patient has 2 headaches per month, lasting 4 or more hours/day associated with photophobia, phonophobia for three or more months. Medication overuse headache has been ruled out.Patient will not use with another GEPANT. The patient has tried and failed the following : The following preventative medications have been tried without benefit: Anti-Convulsant Lamotrigine (Lamictal) Topiramate (Topamax, Trokendi XL, Qudexy) Anti-Depressant and Antipsychotic Quetiapine (Seroquel) Supplements CoQ10 Magnesium Riboflavin The following abortive medications have been tried but require high frequency use which can lead to Medication Overuse Headache: Analgesic Diclofenac (Voltaren, Cataflam, Cambia) Hydrocodone/Acetaminophen (Vicodin, [employer]) Anti-Anxiety Alprazolam (Xanax, Niravam) Diazepam (Valium) Anti-Migraine Rizatriptan (Maxalt) Sumatriptan (Imitrex, Sumavel) GEPANTS Rimegepant (Nurtec) Over the Counter Medications Acetaminophen (Tylenol) Ibuprofen (Advil, Motrin) Plan: - stop nurtec due to lack of efficacy - start ubrelvy 100 mg: take 1 at onset of migraine, may repeat in 2 hours if necessary. No more than 2 pills in 24 hours or 2 days/week - Botox today (see procedure note below) Follow-Up Onabotulinum Toxin A (BotoxTM) for Migraine Indication: Chronic Intractable Migraine Treatment #: 4 Referral Expiration: 06/07/2025 Prior to the initiation of the FIRST treatment with Onabotulinum Toxin A, the patient reported the following average headache frequency over the past 3 MONTHS: Number of moderate-severe migraine days/month: 25 Number of mild migraine days/month: 0 Number of headache free days/month: 5 (120 headache-free hours) After treatment with Onabotulinum Toxin A: Number of moderate-severe migraine days/month: 2 Number of mild migraine days/month: 0 Number of headache free days/month: 28 (672 headache-free hours) Patient reduction in overall migraine days: Yes Patient reduction in moderate-severe migraine days: Yes Patient reduction of headache hours by 100 hours or more: Yes (reduction of 552 hours) Individual has obtained clinical benefit deemed significant by individual or prescriber (Y/N): Yes Patient's quality of life and ability to perform ADLs has improved (Y/N): Yes Side effects: none Wearing off: Yes - 11 weeks after treatment The patient has been assessed for disorders which could contribute to breathing or swallowing difficulty, and there is no contraindication with PREEMPT Botox. There is no documented allergic reaction/hypersensitivity to any botulinum toxin and there is no active infection at proposed injection site. HEADACHE SCORES: 12/03/2020 04/04/2024 Headache Questions ER visits since last office visit: 0 Hospital stays since last office visit 0 Limited ADLs in the last month: 2 Days missed from work or school in the last month: 0 Days headache pain free in the last month: 28 Days per month with ALL of the following symptoms - decreased productivity, light sensitivity and nausea: 2 Initial improvement of headache after botox injection at last visit: Not applicable, I did not have a botox injection at my last visit Very much improved PRN medication usage in the last month: 0 5 Patient impression of improvement since last visit: Not applicable, this is my first visit Very much improved 12/03/2020 04/04/2024 07/04/2024 HIT-6 HIT-6 63 (Severe impact) 60 (Severe impact) 63 (Severe impact) 12/03/2020 04/04/2024 07/04/2024 NIKKIE - 2/7 SCORES NIKKIE-2 Score 1 2 6 NIKKIE-7 Score 21 04/04/2024 07/04/2024 Migraine Specific QOL - Higher scores indicate better HRQL Role Function-Restrictive Transformed Score (range: 0-100) 60 60 Role Function-Preventive Transformed Score (range: 0-100) 60 60 Emotional Function Transformed Score (range: 0-100) 60 60 12/03/2020 04/04/2024 07/04/2024 PHQ-9 Score 4 1 5 BP 116/77 (BP Site: Right Arm, BP Position: Sitting, BP Cuff Size: Regular Adult) Pulse 88 Temp 36.3 C (97.3 F) (Temporal) Wt 76.8 kg (169 lb 5 oz) LMP (LMP Unknown) BMI 29.99 kg/m Patient name: Rosalva Huang : 1990 ALLERGIES Allergen Reactions Onion GI Upset Adhesive Tape (Rita* Rash, Itching Patient reports unable to tolerate band-aids after a procedure. She noted redness and itching at site of band aid. Mosquitos Swelling Phenergan [Prometha* GI Upset Sunscreen Rash Tingle tanning lotion Zyrtec [Cetirizine * Mental Status Change Made her very drowsy, UNIVERSAL PROTOCOL / SAFETY CHECKLIST Procedure: Onabotulinum toxin A for migraine Informed Consent Consent Obtained: Written [place] Protocol A moment to CARE was completed SIGN IN Personnel directly involved with the procedure wore the appropriate PPE Special Equipment: N/A Patient/Surrogate Stated/Verified: Patient name, Date of , Relevant allergies and Intended procedure TIME OUT Intended patient and procedure match the source document(s) Consent documented and matches the intended procedure No relevant labs, photos, and/or imaging studies were applicable for review. No correct side/site applicable for marking and visibility. Medications required for procedure verified. No fire risk assessment and interventions applicable. No implant(s) inserted. SIGN OUT No specimen collected. No instruments, equipment or retained foreign bodies applicable. Post-procedure follow-up management communicated and Plan of Care Visit completed when applicable Written Consent Obtained: Written LOT #: [id number] Expiration Date: Month: 12 Year: 2025 Injection Sites Left (Units) Left (Sites) Right (Units) Right (Sites) TOTAL (Units) Manager Mall 5 1 5 1 10 Procerus Units: 5 Sites: 1 5 Frontalis 10 2 10 2 20 Temporalis optional follow the pain 20 15 4 3 20 10 4 2 65 Occipitalis optional follow the pain 15 10 3 2 15 10 3 2 50 Cervical PSP 10 2 10 2 20 Trapezius 15 3 15 3 30 Total Units used: 200 Total Units wasted: 0 Prior Therapies Duration of Use Dose Side effect Other Therapies Nerve blocks Analgesic Diclofenac (Voltaren, Cataflam, [place]) Hydrocodone/Acetaminophen (Vicodin, [employer]) Anti-Anxiety Alprazolam (Xanax, Niravam) Diazepam (Valium) Anti-Convulsant Lamotrigine (Lamictal) Topiramate (Topamax, Trokendi XL, Qudexy) Anti-Depressant and Antipsychotic Quetiapine (Seroquel) Antiemetics Ondansetron Promethazine Anti-Migraine Rizatriptan (Maxalt) Sumatriptan (Imitrex, Sumavel) GEPANTS Rimegepant (Nurtec) Supplements CoQ10 Magnesium Riboflavin Other Medications Dexamethasone (Decadron) Methylprednisolone (Medrol) Prednisone Over the Counter Medications Acetaminophen (Tylenol) Ibuprofen (Advil, Motrin) Jaja Moss APRN.CAGER OPERATOR [facility] 09-27-2024 Procedure note Images from the original note were not included. Headache Center Follow-up Visit Current Preventive: botox Change needed for current preventive? No Current Abortive: nurtec Change needed for current abortive? Yes - Specify: Has not been effective Miscellaneous Patient Concerns: She has had a migraine for 2 days, but otherwise had 4 migraines for the full 3 months! Has not been able to break her headache. Impression: Chronic migraine without aura, intractable, without status migrainosus (primary encounter diagnosis) We will request a precertification for a Calcitonin Gene-Related Peptide Receptor Antagonist (GEPANT) Ubrogepant for the prevention of chronic migraine . This patient meets ICHD-3 criteria for treatment of migraine with a small molecule CGRP antagonist GEPANT. The FDA has approved GEPANTS for the treatment of migraine. Specifically, the patient has 2 headaches per month, lasting 4 or more hours/day associated with photophobia, phonophobia for three or more months. Medication overuse headache has been ruled out.Patient will not use with another GEPANT. The patient has tried and failed the following : The following preventative medications have been tried without benefit: Anti-Convulsant Lamotrigine (Lamictal) Topiramate (Topamax, Trokendi XL, Qudexy) Anti-Depressant and Antipsychotic Quetiapine (Seroquel) Supplements CoQ10 Magnesium Riboflavin The following abortive medications have been tried but require high frequency use which can lead to Medication Overuse Headache: Analgesic Diclofenac (Voltaren, Cataflam, [place]) Hydrocodone/Acetaminophen (Vicodin, [employer]) Anti-Anxiety Alprazolam (Xanax, Niravam) Diazepam (Valium) Anti-Migraine Rizatriptan (Maxalt) Sumatriptan (Imitrex, Sumavel) GEPANTS Rimegepant (Nurtec) Over the Counter Medications Acetaminophen (Tylenol) Ibuprofen (Advil, Motrin) Plan: - stop nurtec due to lack of efficacy - start ubrelvy 100 mg: take 1 at onset of migraine, may repeat in 2 hours if necessary. No more than 2 pills in 24 hours or 2 days/week - Botox today (see procedure note below) Follow-Up Onabotulinum Toxin A (BotoxTM) for Migraine Indication: Chronic Intractable Migraine Treatment #: 4 Referral Expiration: 06/07/2025 Prior to the initiation of the FIRST treatment with Onabotulinum Toxin A, the patient reported the following average headache frequency over the past 3 MONTHS: Number of moderate-severe migraine days/month: 25 Number of mild migraine days/month: 0 Number of headache free days/month: 5 (120 headache-free hours) After treatment with Onabotulinum Toxin A: Number of moderate-severe migraine days/month: 2 Number of mild migraine days/month: 0 Number of headache free days/month: 28 (672 headache-free hours) Patient reduction in overall migraine days: Yes Patient reduction in moderate-severe migraine days: Yes Patient reduction of headache hours by 100 hours or more: Yes (reduction of 552 hours) Individual has obtained clinical benefit deemed significant by individual or prescriber (Y/N): Yes Patient's quality of life and ability to perform ADLs has improved (Y/N): Yes Side effects: none Wearing off: Yes - 11 weeks after treatment The patient has been assessed for disorders which could contribute to breathing or swallowing difficulty, and there is no contraindication with PREEMPT Botox. There is no documented allergic reaction/hypersensitivity to any botulinum toxin and there is no active infection at proposed injection site. HEADACHE SCORES: 12/03/2020 04/04/2024 Headache Questions ER visits since last office visit: 0 Hospital stays since last office visit 0 Limited ADLs in the last month: 2 Days missed from work or school in the last month: 0 Days headache pain free in the last month: 28 Days per month with ALL of the following symptoms - decreased productivity, light sensitivity and nausea: 2 Initial improvement of headache after botox injection at last visit: Not applicable, I did not have a botox injection at my last visit Very much improved PRN medication usage in the last month: 0 5 Patient impression of improvement since last visit: Not applicable, this is my first visit Very much improved 12/03/2020 04/04/2024 07/04/2024 HIT-6 HIT-6 63 (Severe impact) 60 (Severe impact) 63 (Severe impact) 12/03/2020 04/04/2024 07/04/2024 NIKKIE - 2/7 SCORES NIKKIE-2 Score 1 2 6 NIKKIE-7 Score 21 04/04/2024 07/04/2024 Migraine Specific QOL - Higher scores indicate better HRQL Role Function-Restrictive Transformed Score (range: 0-100) 60 60 Role Function-Preventive Transformed Score (range: 0-100) 60 60 Emotional Function Transformed Score (range: 0-100) 60 60 12/03/2020 04/04/2024 07/04/2024 PHQ-9 Score 4 1 5 BP 116/77 (BP Site: Right Arm, BP Position: Sitting, BP Cuff Size: Regular Adult) Pulse 88 Temp 36.3 C (97.3 F) (Temporal) Wt 76.8 kg (169 lb 5 oz) LMP (LMP Unknown) BMI 29.99 kg/m Patient name: Rosalva Huang : 1990 ALLERGIES Allergen Reactions Onion GI Upset Adhesive Tape (Rita* Rash, Itching Patient reports unable to tolerate band-aids after a procedure. She noted redness and itching at site of band aid. Mosquitos Swelling Phenergan [Prometha* GI Upset Sunscreen Rash Tingle tanning lotion Zyrtec [Cetirizine * Mental Status Change Made her very drowsy, UNIVERSAL PROTOCOL / SAFETY CHECKLIST Procedure: Onabotulinum toxin A for migraine Informed Consent Consent Obtained: Written [place] Protocol A moment to CARE was completed SIGN IN Personnel directly involved with the procedure wore the appropriate PPE Special Equipment: N/A Patient/Surrogate Stated/Verified: Patient name, Date of , Relevant allergies and Intended procedure TIME OUT Intended patient and procedure match the source document(s) Consent documented and matches the intended procedure No relevant labs, photos, and/or imaging studies were applicable for review. No correct side/site applicable for marking and visibility. Medications required for procedure verified. No fire risk assessment and interventions applicable. No implant(s) inserted. SIGN OUT No specimen collected. No instruments, equipment or retained foreign bodies applicable. Post-procedure follow-up management communicated and Plan of Care Visit completed when applicable Written Consent Obtained: Written LOT #: [id number] Expiration Date: Month: 12 Year: 2025 Injection Sites Left (Units) Left (Sites) Right (Units) Right (Sites) TOTAL (Units) Manager Mall 5 1 5 1 10 Procerus Units: 5 Sites: 1 5 Frontalis 10 2 10 2 20 Temporalis optional follow the pain 20 15 4 3 20 10 4 2 65 Occipitalis optional follow the pain 15 10 3 2 15 10 3 2 50 Cervical PSP 10 2 10 2 20 Trapezius 15 3 15 3 30 Total Units used: 200 Total Units wasted: 0 Prior Therapies Duration of Use Dose Side effect Other Therapies Nerve blocks Analgesic Diclofenac (Voltaren, Cataflam, [place]ia) Hydrocodone/Acetaminophen (Vicodin, [employer]) Anti-Anxiety Alprazolam (Xanax, Niravam) Diazepam (Valium) Anti-Convulsant Lamotrigine (Lamictal) Topiramate (Topamax, Trokendi XL, Qudexy) Anti-Depressant and Antipsychotic Quetiapine (Seroquel) Antiemetics Ondansetron Promethazine Anti-Migraine Rizatriptan (Maxalt) Sumatriptan (Imitrex, Sumavel) GEPANTS Rimegepant (Nurtec) Supplements CoQ10 Magnesium Riboflavin Other Medications Dexamethasone (Decadron) Methylprednisolone (Medrol) Prednisone Over the Counter Medications Acetaminophen (Tylenol) Ibuprofen (Advil, Motrin) Jaja Moss APRN.CAGER OPERATOR documented in this encounter [facility] 09-26-2024 History of Presen t illness Narrative No show for appt. documented in this encounter [facility] Work Phone: 09-20-2024 Note [facility] 09-20-2024 History of Presen t illness Narrative This note was created using [employer]. Srinivasan Rosalva Huang is a 34 year old female. HPI 34 year old female [facility] with complaints of left hand injury. Reports that she was getting her child into the car today and the wind shut the car door onto her left hand. She endorses tingling, pain and some swelling to the mid hand. Is right hand dominant. Denies any other injuries. Review of Systems Respiratory: Negative for shortness of breath. Cardiovascular: Negative for chest pain. Musculoskeletal: Negative for joint swelling. Skin: Negative for wound. Neurological: Positive for numbness. Objective BP 111/66 Pulse 78 Temp 36.5 C (97.7 F) (Oral) Resp 18 Wt 77.2 kg (170 lb 3.1 oz) LMP (LMP Unknown) SpO2 96% BMI 30.15 kg/m Physical Exam Vitals reviewed. Constitutional: Appearance: She is not ill-appearing. HENT: Head: Normocephalic and atraumatic. Cardiovascular: Rate and Rhythm: Normal rate. Pulmonary: Effort: Pulmonary effort is normal. Musculoskeletal: General: Swelling and tenderness present. No deformity. Comments: Full ROM to left wrist without swelling, tenderness or erythema Some swelling and tenderness noted to distal 2nd and 3rd metacarpal. Superficial abrasion. Limited ROM secondary to pain. +2 radial pulses Skin: General: Skin is warm and dry. Findings: No bruising or erythema. Neurological: Mental Status: She is alert. Sensory: No sensory deficit. Assessment and Plan ASSESSMENT/PLAN: 1. Hand injury, left, initial encounter - ICD9: 959.4, ICD10: S69.92XA -Left hand injury s/p slammed in car door today -XR ordered for further evaluation- will be notified with results -Was given Ibuprofen in clinic -Derek bandage provided - XR HAND GENERAL 3V PA/LAT/OBL LEFT Alize Alonso APRN.CNP documented in this encounter [facility] 09-20-2024 Instructions Alize Alonso APRN.CNP - 09/20/2024 3:40 PM EDT ASSESSMENT/PLAN: 1. Hand injury, left, initial encounter - ICD9: 959.4, ICD10: S69.92XA -Left hand injury s/p slammed in car door today -XR ordered for further evaluation- will be notified with results -Was given Ibuprofen in clinic -Derek bandage provided - XR HAND GENERAL 3V PA/LAT/OBL LEFT Alize Alonso APRN.CAGER OPERATOR documented in this encounter [facility] 09-08-2024 History of Presen t illness Narrative Reason for Visit: Individual Counseling Problem: CL expressed feeling manic the past few weeks but feeling that meds have started working better now. CL reports having ear infection, sinus infection and yeast infection that has been resilient to treatment. CL reports having decreased sex drive but feeling improvement since recent med change. F41.1 Generalized anxiety disorder (primary encounter diagnosis) Mental Status Exam: Within normal limits. Intervention: The following goals were addressed today: "I want better ccping skills when I have intrusive thoughts and reduce panic" Next Care Plan Review Date: 07/19/2025 Provider addressed Rosalva's concerns related to the presenting problem above through the following therapeutic interventions: Empathetic validation and support and Symptom management, skill building. Acute risk for harm to self/others: Low C-SSRS Screen Response/Impression: Rosalva demonstrated no change in session today as evidenced by limited use of coping skills due to not feeling well. Overall impression of treatment demonstrates no change as evidenced by no progress with goals and use of avoidance when asking direct open ended questions. . NAN asked open ended questions about recent and current symptoms to gain more insight. CL presented slightly manic evidenced by pacing through house, rapid talking, and changing of topic quiclly within session. BASIS-24 Clinical Severity - Most Recent Administration Date Administered: 06/13/2024 Domain Subscore & Severity Depression/Functioning 0.88 - Low Interpersonal Relationships 3.39 - High Self-Harm 0 - Low Emotional Lability 2.22 - High Psychosis 0 - Low Alcohol/Drug Use 0 - Low BASIS-24 Overall Score 1.29 - Moderate Reference: BASIS-24 Behavior and Symptom Identification Scale: Clinical Cut Scores. Jama Patel (2018). BASIS-24 results were not reviewed. Plan: Rosalva's follow-up/homework: CL will stay connected with providers and openly share feeling about symptoms. Provider's follow-up/referrals/action items: N/A Next appointment with this provider: 09/23/24 documented in this encounter [facility] Work Phone: 09-08-2024 Telephone encounter Note Patient verified by name and Relayed message from provider Sol Santos APRN.CNP on 09/08/2024 at 9:34 am. Patient stated that "the provider had already prescribed 2 Diflucan which one was already taken and the 2nd one was to be taken on Thursday and does the provider still want her to take the 2nd diflucan on Thursday?" This nurse clarified with the provider that patient is not to take 2nd Diflucan on Thursday to wait until she completes the Flagyl then take the 2nd Diflucan and do not picking crew supervisor diflucan prescription. Relayed clarification to patient. Patient verbalized understanding. Danielle Price LPN [facility] 09-08-2024 Miscellaneous Notes Patient verified by name and Relayed message from provider Sol Santos APRN.CNP on 09/08/2024 at 9:34 am. Patient stated that "the provider had already prescribed 2 Diflucan which one was already taken and the 2nd one was to be taken on Thursday and does the provider still want her to take the 2nd diflucan on Thursday?" This nurse clarified with the provider that patient is not to take 2nd Diflucan on Thursday to wait until she completes the Flagyl then take the 2nd Diflucan and do not picking crew supervisor diflucan prescription. Relayed clarification to patient. Patient verbalized understanding. Danielle Price LPN Addended by: SOL SANTOS on: 09/08/2024 09:28 AM Modules accepted: Orders Please advise patient that vaginal culture is positive for BV and yeast. Flagyl will treat BV, start it and finish it, avoid alcohol with this medicine. One more Diflucan sent in to pharmacy, to take after she finishes Flagyl. Thank you. documented in this encounter [facility] 09-08-2024 Note Addended by: SOL SANTOS on: 09/08/2024 09:28 AM Modules accepted: Orders [facility] 09-08-2024 Telephone encounter Note Please advise patient that vaginal culture is positive for BV and yeast. Flagyl will treat BV, start it and finish it, avoid alcohol with this medicine. One more Diflucan sent in to pharmacy, to take after she finishes Flagyl. Thank you. [facility] 09-07-2024 Note [facility] 09-07-2024 History of Presen t illness Narrative This note was created using [employer]. Subjective Rosalva Huang is a 34 year old female. Patient presents for concern for ongoing yeast infection. Patient states she was recently treated for sinusitis and then a subsequent yeast infection confirmed by culture with singular Diflucan. Patient notes improvement of symptoms x 3 days with subsequent resurgence. Denies any new or worsening abdominal pain, flank pain, fever or chills. Denies any urianry symptoms. No concern for STI. The history is provided by the patient. No sign language instructor was used. Vaginal Problem This is a new problem. The current episode started in the past 7 days. The problem occurs constantly. The problem has been gradually worsening. Pertinent negatives include no abdominal pain, chest pain, chills, fatigue, fever, headaches or urinary symptoms. Review of Systems Constitutional: Negative for chills, fatigue and fever. HENT: Negative. Eyes: Negative. Respiratory: Negative for shortness of breath. Cardiovascular: Negative for chest pain. Gastrointestinal: Negative for abdominal pain. Genitourinary: Positive for vaginal discharge. Musculoskeletal: Negative. Neurological: Negative for dizziness and headaches. All other systems reviewed and are negative. Objective BP 109/75 Pulse 66 Temp 36.6 C (97.8 F) (Temporal) Resp 18 Wt 76.8 kg (169 lb 5 oz) LMP (LMP Unknown) SpO2 98% BMI 29.99 kg/m Physical Exam Vitals and nursing note reviewed. HENT: Head: Normocephalic. Cardiovascular: Rate and Rhythm: Normal rate and regular rhythm. Heart sounds: Normal heart sounds. Pulmonary: Effort: Pulmonary effort is normal. Breath sounds: Normal breath sounds. Abdominal: Tenderness: There is no right CVA tenderness or left CVA tenderness. Skin: General: Skin is warm and dry. Neurological: Mental Status: She is alert and oriented to person, place, and time. Assessment and Plan ASSESSMENT/PLAN: 1. Vaginal irritation - ICD9: 623.9, ICD10: N89.8 - Several days of vaginal irritation in the setting of recent antibiotic use and singular Diflucan - Patient declined pelvic exam opting to self swab - Physical exam unremarkable; negative CVA tenderness bilaterally. Abdomen soft and non-tender - Patient education for prevention given - Follow cultures - 2 dose regimen of Diflucan provided - FLUCONAZOLE 150 MG TABLET - ALESSANDRA/TRICHOMONAS NAAT - BACTERIAL VAGINOSIS NAAT Sirisha Shelley APRN.CAGER OPERATOR documented in this encounter [facility] 08-19-2024 History of Presen t illness Narrative This note was created using [employer]. Subjective Rosalva Huang is a 34 year old female. The history is provided by the patient. Vaginal Problem This is a new problem. Episode onset: 2 days of vaginal itching, irritation, feels swollen, white vaginal d/c, no odor, finished abx for sinuses recently. Review of Systems Genitourinary: Positive for vaginal discharge (and itching). Negative for dysuria, flank pain, frequency and hematuria. Objective BP 110/70 Pulse 78 Temp 36.5 C (97.7 F) (Temporal) Resp 18 Wt 77.9 kg (171 lb 11.8 oz) LMP (LMP Unknown) SpO2 98% BMI 30.42 kg/m Physical Exam Vitals and nursing note reviewed. Constitutional: General: She is not in acute distress. Appearance: She is not diaphoretic. Pulmonary: Effort: Pulmonary effort is normal. No respiratory distress. Skin: General: Skin is warm and dry. Neurological: Mental Status: She is alert and oriented to person, place, and time. Psychiatric: Judgment: Judgment normal. Assessment and Plan BP 110/70 Pulse 78 Temp 36.5 C (97.7 F) (Temporal) Resp 18 Wt 77.9 kg (171 lb 11.8 oz) LMP (LMP Unknown) SpO2 98% BMI 30.42 kg/m -I have reviewed and updated with the patient: allergies, VS, current medications, Past Medical History,Past Surgical History,Past Family Medical History, Past Social History. - Patient education provided today. - Discussed with patient medications that are indicated and how to use the medications and what the potential side effects are. - Follow up with PCP in 2-3 days if symptoms progress - Warning signs of worsening condition explained to patient - Patient left in stable condition after questions answered and patient verbalizes understanding - Report to ED with any worsening symptoms or life-threatening concerns - Patient also advised to visit [facility] for AVS, educational material, and test results ASSESSMENT/PLAN: 1. Itching in the vaginal area - ICD9: 698.1, ICD10: N89.8 - FLUCONAZOLE 150 MG TABLET Sol Santos APRN.CAGER OPERATOR documented in this encounter [facility] 08-19-2024 Note [facility] 08-11-2024 Note [facility] 08-11-2024 History of Presen t illness Narrative This note was created using [employer]. Srinivasan Huang is a 34 year old female. Patient presents with concern for sinus pain/pressure, nasal congestion, cough and ocassional light headedness/dizziness x 1 week. Patient denies fever or chills. Patient notes that symptoms are worse on the right side. Previously had a cough, but is now resolved. Has been taking Tylenol without relief. The history is provided by the patient. No sign language instructor was used. Sinus Problem This is a new problem. The current episode started in the past 7 days. The problem has been gradually worsening. Associated symptoms include congestion and headaches. Pertinent negatives include no chest pain, chills, coughing, fever or sore throat. Review of Systems Constitutional: Negative for chills and fever. HENT: Positive for congestion, sinus pressure and sinus pain. Negative for dental problem, ear pain and sore throat. Eyes: Negative. Respiratory: Negative for cough and shortness of breath. Cardiovascular: Negative for chest pain. Musculoskeletal: Negative. Neurological: Positive for headaches. Negative for dizziness. All other systems reviewed and are negative. Objective BP 115/79 (BP Site: Right Arm, BP Position: Sitting) Pulse 74 Temp 36.6 C (97.8 F) (Temporal) Resp 16 Wt 77.2 kg (170 lb 3.1 oz) LMP (LMP Unknown) SpO2 98% BMI 30.15 kg/m Physical Exam Vitals and nursing note reviewed. HENT: Head: Normocephalic. Right Ear: Tympanic membrane normal. Left Ear: Tympanic membrane normal. Nose: Congestion present. Right Sinus: Maxillary sinus tenderness and frontal sinus tenderness present. Mouth/Throat: Mouth: Mucous membranes are moist. Pharynx: Oropharynx is clear. Eyes: Pupils: Pupils are equal, round, and reactive to light. Cardiovascular: Rate and Rhythm: Normal rate and regular rhythm. Heart sounds: Normal heart sounds. Pulmonary: Effort: Pulmonary effort is normal. Breath sounds: Normal breath sounds. Musculoskeletal: Cervical back: Neck supple. No tenderness. Skin: General: Skin is warm and dry. Neurological: Mental Status: She is alert and oriented to person, place, and time. Assessment and Plan ASSESSMENT/PLAN: 1. Acute maxillary sinusitis, recurrence not specified - ICD9: 461.0, ICD10: J01.00 - 1 week of sinus pain/pressure, nasal congestion, cough and ocassional light headedness/dizziness - Physical exam reveals nasal congestion, mildy erythematous right ear canal and right sided frontal and maxillary sinus tenderness - Lungs clear, no evidence of erythema to right side of face. Mucous membranes moist and clear, no evidence of posterior pharynx erythema, bilateral TM pearly and goodman - Will begin treatment with as per antibiotic and Medrol dose pack as written, see orders - The patient should also be given nasal saline gtts and suction prn for the first 5-7 days of treatment. - Supportive care with plenty of fluids, rest, and analgesia prn. - Follow up in 3-5 days if symptoms persist or worsen. Sirisha Shelley APRN.CNP documented in this encounter [facility] 08-11-2024 Instructions Sirisha Shelley APRN.CNP - 08/11/2024 6:32 PM EDT Images from the original note were not included. Increase fluid intake (WATER) and REST, as much as possible Can take acetaminophen and/or ibuprofen, as directed, for pain or fever. Avoid NSAIDs (ie: ibuprofen/Advil/Aleve/motrin) with any history of ulcers or gastric surgery May use over the counter cough medications. Recommend guaifenesin (ie: Mucinex) to help with mucous (drink a lot of water). Use a cool-mist vaporizer or humidifier Vicks Vaporub may be helpful Can use over the counter cough lozenges with menthol- use as directed on the package. Encouraged use of Flonase (nasal steroid to help decrease inflammation). Remember, you must be consistent with use to allow the steroid to build-up adequately in your nasal tissue. Insert nozzle into each nostril, angle towards outside of your nose, take very small "sniff". Encouraged to use nightly before going to bed. Saline nasal spray can be used for nasal congestion, as needed. Consider taking a daily antihistamine if you have a lot of drainage/runny nose, such as Claritin/Zyrtec/Xyzal/Arthur, etc. Take antibiotics as prescribed - to completion- and with food. Encouraged probiotic or yogurt with live cultures (not within 1-2 hours of antibiotics) If you have high blood pressure, AVOID decongestants. If you are a diabetic, make sure you are closely monitoring your blood sugar levels as they can become unstable with illness. - Follow up with your PCP if you continue to experience symptoms, if they return shortly after treatment, or if they worsen - If symptoms are ongoing and/or recurrent, you may need to follow up with an statistical geneticist and/or ENT - Go to the ER if you begin to experience any severe symptoms, such as facial, eye, or cheek swelling on one side of your face, labored breathing/difficulty breathing, shortness of breath or chest pain, stiffness in neck, difficulty waking up or lethargy, severe headaches, or a rash that looks like a bruise documented in this encounter [facility] 08-09-2024 History of Presen t illness Narrative Reason for Visit: Individual Counseling Video conference visit (Leia.). Patient identity confirmed via name and date of . Potential risks and benefits discussed with patient/guardian, who verbalized consent for telehealth encounter. Patient location: home. Problem: cL answered doxy and stated everyone has been sick. CL informed of daughter starting school and feeling more comfortable with daughter being in class. CL expressed feeling sad after two of dogs got into fight and may have to re-home one of the dogs. Cl expressed cat has still been helping with manage anxiety and feeling cat is "therapy animal". F41.1 Generalized anxiety disorder (primary encounter diagnosis) Mental Status Exam: Within normal limits. Intervention: The following goals were addressed today: Identify and discuss unresolved life conflicts (see measurable component below): Next Care Plan Review Date: 07/19/2025 Provider addressed Rosalva's concerns related to the presenting problem above through the following therapeutic interventions: Active and reflective listening and Symptom management, skill building. Acute risk for harm to self/others: Low C-SSRS Screen Response/Impression: Rosalva demonstrated no change in session today as evidenced through self report and no progress towards current goals. Overall impression of treatment demonstrates no change as evidenced by no progress with goals due to family being sick and not working on healthier lifestyle goals. TH and CL explored feeling about possibly getting rid of a dog and feeling more comfortable with re-homing after assessing risks for other animals and children. TH discussed how to increase motivation and get back on track with healthier lifestyle goals by identifying mini goals to use. BASIS-24 Clinical Severity - Most Recent Administration Date Administered: 06/13/2024 Domain Subscore & Severity Depression/Functioning 0.88 - Low Interpersonal Relationships 3.39 - High Self-Harm 0 - Low Emotional Lability 2.22 - High Psychosis 0 - Low Alcohol/Drug Use 0 - Low BASIS-24 Overall Score 1.29 - Moderate Reference: BASIS-24 Behavior and Symptom Identification Scale: Clinical Cut Scores. Jama Patel (2018). Did you review the patient's BASIS-24 results? Yes Plan: Rosalva's follow-up/homework: Cl will re-enagge with healthier lifestyle goals after feeling better. Provider's follow-up/referrals/action items: N/A Next appointment with this provider: 08/23/24 documented in this encounter [facility] Work Phone: 07-31-2024 Instructions Kiara Ibarra APRN.CAGER OPERATOR - 07/31/2024 9:13 AM EDT Continue tylenol as needed Try flonase and claritin Return to PCP or see ENT if worsening not improving documented in this encounter [facility] 07-31-2024 Note [facility] 07-31-2024 History of Presen t illness Narrative Rosalva Huang is a 34 year old female presenting for left ear pain x 2 days Thinks it could be from a migraine took tylenol last night and it helped No change in hearing Denies sinus symptoms no fever no cough Does have small kids at home No ringing dull ache tylenol did help PAST MEDICAL HISTORY 10/26/2014: Endometriosis Comment: never had diagnostic lap to confirm, patient did not want surgery 05/25/2022: Gestational diabetes mellitus (GDM) affecting second No date: Infertility, female 07/18/2019: Migraine without aura and without status migrainosus, not intractable 08/27/2015: 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HCC) No date: Panic disorder without agoraphobia No date: PMH - PAST MEDICAL HISTORY OF Comment: color vision normal No date: PMH - PAST MEDICAL HISTORY OF Comment: "vascular disease" 01/2002 No date: PMH - PAST MEDICAL HISTORY OF Comment: wearing glasses and broke ankle at age 3, wrist fracture No date: depression ACTIVE PROBLEM LIST Mild Mixed Bipolar I Disorder (Hcc) Migraine Without Aura and Without Status Migrainosus, Not Intractable History of Drug Use Panic 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 8 tablet 3 lamoTRIgine (LAMICTAL) 150 mg tablet Take 1 tablet by mouth once daily. 30 tablet 0 risperiDONE (RISPERDAL) 1 mg tablet Take 1 tablet by mouth daily at bedtime. 30 tablet 0 Current Facility-Administered Medications Medication Dose Route Frequency Provider Last Rate Last Admin onabotulinum toxin type A 200 Units injection (BOTOX) 200 Units INTRADERMAL every 12 weeks Dakota Guzman, ERIC.CAGER OPERATOR 200 Units at 07/04/24 1016 ROS: Negative except for as listed above EXAM: Blood pressure 119/74, pulse 85, temperature 36.6 C (97.8 F), temperature source Oral, resp. rate 18, weight 77 kg (169 lb 12.1 oz), SpO2 98%. APPEARANCE Well appearing, alert, in no acute distress, well-hydrated, well nourished. EYES PERRLA, conjunctiva and sclera normal. EARS External ears normal, canals clear NOSE/SINUS Nares normal. Septum midline. Mucosa normal. No drainage or sinus tenderness. MOUTH No oral / pharyngel lesions/ exudate THROAT normal, no erythema NECK Supple, no adenopathy; thyroid symmetric, normal size, no bruits ASSESSMENT/PLAN (G43.009) Migraine without aura and without status migrainosus, not intractable (primary encounter diagnosis) Tylenol as needed (H92.02) Left ear pain Tylenol as needed (H69.92) Eustachian tube disorder, left Try flonase and claritin F/u with PCP or ENT if worsening not improving Red flag symptoms reviewed. Kiara Ibarra APRN.CAGER OPERATOR documented in this encounter [facility] 07-28-2024 History of Presen t illness Narrative Reason for Visit: Individual Counseling Video conference visit (Leia.). Patient identity confirmed via name and date of . Potential risks and benefits discussed with patient/guardian, who verbalized consent for telehealth encounter. Patient location: home. Problem: CL reports no current stressors and no increased symptoms. CL informed of getting new puppy and wanting to breed with other dog. F42.2 Mixed obsessional thoughts and acts (primary encounter diagnosis) Mental Status Exam: Within normal limits. Intervention: The following goals were addressed today: "I know it will never go away but I want to get better coping skills to manage" Next Care Plan Review Date: 07/19/2025 Provider addressed Rosalva's concerns related to the presenting problem above through the following therapeutic interventions: Active and reflective listening. Acute risk for harm to self/others: Low C-SSRS Screen Response/Impression: Rosalva demonstrated no change in session today as evidenced by avoidant behaviors and defensiveness when asked open ended questions and challenges about adding additional stressors with animals. Overall impression of treatment demonstrates no change as evidenced by listing stressors at home but making no changes to help improvements. TH challenged client about adding to stressors by getting another puppy and wanting to breed dogs. TH asked open ended questions about choosing not to enroll son in speech classes. BASIS-24 Clinical Severity - Most Recent Administration Date Administered: 06/13/2024 Domain Subscore & Severity Depression/Functioning 0.88 - Low Interpersonal Relationships 3.39 - High Self-Harm 0 - Low Emotional Lability 2.22 - High Psychosis 0 - Low Alcohol/Drug Use 0 - Low BASIS-24 Overall Score 1.29 - Moderate Reference: BASIS-24 Behavior and Symptom Identification Scale: Clinical Cut Scores. Jama Patel (2018). Did you review the patient's BASIS-24 results? No Plan: Rosalva's follow-up/homework: CL was encouraged to assess night time routine with kids to help more sturctured bedtime and allow for reduced time spent "getting to bed". Provider's follow-up/referrals/action items: N/A Next appointment with this provider: 08/09/24 documented in this encounter [facility] Work Phone: 07-19-2024 History of Presen t illness Narrative Service Plan Date Created: 07/19/24 SNAP: Strengths as defined by individual (including those identified by both the individual and clinician to address): Resiliency Problem solving skills Empathetic Adapting Needs: Managing anxiety Prioritize self care time Managing frustration Binge eating Abilities: Parental role Cook Resourceful Academics Preferences: Cl prefers tele-health due to children's schedule How will you use your strengths and abilities to reach your treatment plan goals? "I am not going to give up since I am very resilient" Assessed Needs / LOC Level of Service: Outpatient Service Plan: Integrated Care Plan (SA209) Problem/Assessed Need: ANXIETY Goal: "I know it will never go away but I want to get better coping skills to manage" Start Date: 07/19/2024 Expected End Date: 07/19/2025 Recent Progress: On track Task: Careteam will help build upon and teach additional strategies to cope with moods Priority: High Note: Services: Individual counseling Frequency:Weekly Goal: I will identify and balance thoughts that trigger my anxiety (see measurable component below): Start Date: 07/19/2024 Expected End Date: 07/19/2025 Recent Progress: On track Note: By Care Plan review date, Rosalva will be able to identify at least 2 patterns of thinking that worsen anxiety, and be able to use at least 2 ways to challenge and balance anxious thoughts. Task: Care Space Buyer will explore self-talk, challenge biases, and assist patient in replacing distorted messages with reality-based alternatives and positive self-talk. Priority: High Note: Services: Individual counseling Frequency:Weekly Goal: I will practice self-care daily to decrease and prevent anxiety. Start Date: 07/19/2024 Expected End Date: 07/19/2025 Recent Progress: On track Task: Care Space Buyer will teach and implement relapse prevention strategies for managing possible future anxiety symptoms. Priority: High Note: Services: Individual counseling Frequency:Weekly Task: Care Space Buyer will support the patient in following through with work, family and social activities. Priority: High Note: Services: Individual counseling Frequency:Weekly Problem/Assessed Need: PSYCHIATRIC MEDICATION MANAGEMENT Goal: "I want to take my medication everday and monitoring symptoms" Start Date: 07/19/2024 Expected End Date: 07/19/2025 Recent Progress: On track Objective: I will understand my mental health diagnoses and symptoms that could benefit from medication treatment. Task: Care Space Buyer will complete a psychiatric evaluation to identify and/or clarify psychiatric diagnoses as well as symptoms that are appropriate targets for medication treatment. Note: Services: Psychiatry Frequency: PRN Task: Care Space Buyer will assess my general health, including risk factors or conditions that may impact my mental health and vice versa, and refer me to primary care if I do not already have an established primary care provider. Note: Services: Psychiatry Frequency: PRN Objective: I will become knowledgeable about each of the psychiatric medications I am prescribed, including how to take them safely, side effects, and the reason each are prescribed. Task: Care Space Buyer will provide education on each prescribed psychiatric medication, including potential interactions with other medications or drugs/alcohol. Note: Services: Psychiatry Frequency: PRN Objective: I will participate in regular follow-up visits for monitoring my condition s response to psychiatric medication. Task: Care Space Buyer will assess response to medication, including impact on functioning and quality of life, at each follow-up visit. Note: Services: Psychiatry Frequency: PRN Task: Care Space Buyer will administer necessary standardized assessment tools or laboratory monitoring to monitor medication response. Note: Services: Psychiatry Frequency: PRN Task: Care Space Buyer will assess for medication side effects at each follow-up visit. Note: Services: Psychiatry Frequency: PRN Problem/Assessed Need: TRAUMA/STRESSOR DISORDER Goal: "I want to resolve my own trauma and not project my feelings" Start Date: 07/19/2024 Expected End Date: 07/19/2025 Recent Progress: On track Task: Careteam will help client identify past traumas in order to reduce severity and frequency of PTSD symptoms Priority: Medium Note: Services: Individual counseling Frequency:Weekly Goal: I will learn and use 1-3 skills to manage thoughts, feelings, and urges brought on by encounters with trauma-related situations. Start Date: 07/19/2024 Expected End Date: 07/19/2025 Recent Progress: On track Task: Care Space Buyer will teach the patient a guided self-dialogue in which they learn to recognize and challenge maladaptive self-talk, cope with feelings, and overcome avoidance. Priority: Medium Note: Services: Individual counseling Frequency:Weekly Task: Care Space Buyer will help the patient identify and change self-attacking and personal shaming resulting from the trauma. Due Date: 05/15/2023 Priority: Medium Note: Services: Individual counseling Frequency:Weekly Service Conclusion Criteria/Transition/Discharge: What progress have you made towards achieving your goal so far?: "I have learned mindful techniques and using medication to control symptoms". What have you achieved as a result of participating in services?: "It feels nice to talk about past and feelings" What will you need to continue your recovery and maintain your health? "Continue coming to appts" If applicable, are you taking your medication as prescribed?: CL reports being med compliant Referral information (internal and external): NA What will you do if you start to experience a recurrence in symptoms?: Call crisis center or connect to support system Participants for Today s Plan: Patient acknowledges participating, agrees with plan. Particpant/guardian/caregiver acknowledges participating, agrees with plan. Copies Provided Today To: Via [facility] / ADMINISTRATIVE: Administrative Information: Document Type: Update Next Review: 07/19/2025 Freq: Yearly Submitted for materials management supervisor signature to YEN Stevens Reason for Visit: No chief complaint on file. Video conference visit ([email or web address]). Patient identity confirmed via name and date of . Potential risks and benefits discussed with patient/guardian, who verbalized consent for telehealth encounter. Patient location: home. Problem: CL expressed things have been ok and finding a connection with cat and feeling therapeutic. CL informed of daughter starting pre-school following week and feeling anxious that "she may cry". No diagnosis found. Mental Status Exam: Within normal limits. Intervention: The following goals were addressed today: "I know it will never go away but I want to get better coping skills to manage" Next Care Plan Review Date: Provider addressed Rosalva's concerns related to the presenting problem above through the following therapeutic interventions: Active and reflective listening. Acute risk for harm to self/others: Low C-SSRS Screen Response/Impression: Rosalva demonstrated moderate improvement in session today as evidenced by sharing feelings and being able to define goals. Overall impression of treatment demonstrates minimal improvement as evidenced by bieng able to state clear goals but pre-contemplative about being able to apply changes. TH normalized clients feelings about daughter going to school and feeling anxious about changes. TH had to redirect client back to session multiple times due to children's behaviors interrupting through session. TH and client reviewed care/service plan and updated. BASIS-24 Clinical Severity - Most Recent Administration Date Administered: 06/13/2024 Domain Subscore & Severity Depression/Functioning 0.88 - Low Interpersonal Relationships 3.39 - High Self-Harm 0 - Low Emotional Lability 2.22 - High Psychosis 0 - Low Alcohol/Drug Use 0 - Low BASIS-24 Overall Score 1.29 - Moderate Reference: BASIS-24 Behavior and Symptom Identification Scale: Clinical Cut Scores. Jama Patel (2018). Plan: Rosalva's follow-up/homework: CL will utilize self care and take "breaks" when needed Provider's follow-up/referrals/action items: N/A Next appointment with this provider: 07/28/24 documented in this encounter [facility] Work Phone: 07-04-2024 Instructions Jaja Moss APRN.LOUIS - 07/04/2024 10:17 AM EDT Instruction after Botox injection: - If you have any pain or swelling use ice, 20 min on and 20 min off. Do not rub or massage the area for 24 hrs. - If you have any neck stiffness, you may use heat and do stretching exercises. - This should improve over the next 5 days. - If it does not, call our office at [phone] for further instructions. documented in this encounter [facility] 07-04-2024 Procedure note Images from the original note were not included. Headache Center Follow-up Visit Current Preventive: botox Change needed for current preventive? No Current Abortive: nurtec - worked before Botox wore off Change needed for current abortive? No Miscellaneous Patient Concerns: Last month headaches have been horrible. Got a hairless cat - has been helping with anxiety so far. Impression: Chronic migraine without aura, intractable, without status migrainosus (primary encounter diagnosis) Rosalva Daniel Reina has been previously approved for an Oral Calcitonin Gene-Related Peptide Receptor Antagonist (GEPANT) Rimegepant for the treatment of abortive use. The patient has demonstrated the following: Provider attests patient has had a positive clinical response: Yes Patient will not use with another Oral Calcitonin Gene-Related Peptide Receptor Antagonist (GEPANT): Yes Patient's quality of life and ability to perform ADLs has improved: Yes We suggest the patient continue treatment with GEPANT Rimegepant. The following preventative medications have been tried for three or more months without benefit: Anti-Convulsant Lamotrigine (Lamictal) Topiramate (Topamax, Trokendi XL, Qudexy) Anti-Depressant and Antipsychotic Quetiapine (Seroquel) Supplements CoQ10 Magnesium Riboflavin The following abortive medications have been tried but require high frequency use which can lead to Medication Overuse Headache: Analgesic Diclofenac (Voltaren, Cataflam, Cambia) Hydrocodone/Acetaminophen (Vicodin, [employer]) Anti-Anxiety Alprazolam (Xanax, Niravam) Diazepam (Valium) Anti-Migraine Rizatriptan (Maxalt) Sumatriptan (Imitrex, Sumavel) GEPANTS Rimegepant (Nurtec) Over the Counter Medications Acetaminophen (Tylenol) Ibuprofen (Advil, Motrin) Plan: - Botox today (see procedure note below), will increase to 200 units today - continue nurtec as needed Follow-Up Onabotulinum Toxin A (BotoxTM) for Migraine Indication: Chronic Intractable Migraine Treatment #: 4 Referral Expiration: 06/07/2025 Prior to the initiation of the FIRST treatment with Onabotulinum Toxin A, the patient reported the following average headache frequency over the past 3 MONTHS: Number of moderate-severe migraine days/month: 25 Number of mild migraine days/month: 0 Number of headache free days/month: 5 (120 headache-free hours) After treatment with Onabotulinum Toxin A: Number of moderate-severe migraine days/month: 2 Number of mild migraine days/month: 0 Number of headache free days/month: 28 (672 headache-free hours) Patient reduction in overall migraine days: Yes Patient reduction in moderate-severe migraine days: Yes Patient reduction of headache hours by 100 hours or more: Yes (reduction of 552 hours) Individual has obtained clinical benefit deemed significant by individual or prescriber (Y/N): Yes Patient's quality of life and ability to perform ADLs has improved (Y/N): Yes - the last month has been having a migraine every other day Side effects: none Wearing off: Yes - 8 weeks after treatment The patient has been assessed for disorders which could contribute to breathing or swallowing difficulty, and there is no contraindication with PREEMPT Botox. There is no documented allergic reaction/hypersensitivity to any botulinum toxin and there is no active infection at proposed injection site. HEADACHE SCORES: 12/03/2020 04/04/2024 Headache Questions ER visits since last office visit: 0 Hospital stays since last office visit 0 Limited ADLs in the last month: 2 Days missed from work or school in the last month: 0 Days headache pain free in the last month: 28 Days per month with ALL of the following symptoms - decreased productivity, light sensitivity and nausea: 2 Initial improvement of headache after botox injection at last visit: Not applicable, I did not have a botox injection at my last visit Very much improved PRN medication usage in the last month: 0 5 Patient impression of improvement since last visit: Not applicable, this is my first visit Very much improved 12/03/2020 04/04/2024 07/04/2024 HIT-6 HIT-6 63 (Severe impact) 60 (Severe impact) 63 (Severe impact) 12/03/2020 04/04/2024 07/04/2024 NIKKIE - 2/7 SCORES NIKKIE-2 Score 1 2 6 NIKKIE-7 Score 21 04/04/2024 07/04/2024 Migraine Specific QOL - Higher scores indicate better HRQL Role Function-Restrictive Transformed Score (range: 0-100) 60 60 Role Function-Preventive Transformed Score (range: 0-100) 60 60 Emotional Function Transformed Score (range: 0-100) 60 60 12/03/2020 04/04/2024 07/04/2024 PHQ-9 Score 4 1 5 BP 115/73 Pulse 98 LMP (LMP Unknown) SpO2 95% Patient name: Rosalva Huang : 1990 ALLERGIES Allergen Reactions Onion GI Upset Adhesive Tape (Rita* Rash, Itching Patient reports unable to tolerate band-aids after a procedure. She noted redness and itching at site of band aid. Mosquitos Swelling Phenergan [Prometha* GI Upset Sunscreen Rash Tingle tanning lotion Zyrtec [Cetirizine * Mental Status Change Made her very drowsy, UNIVERSAL PROTOCOL / SAFETY CHECKLIST Procedure: Onabotulinum toxin A for migraine Informed Consent Consent Obtained: Written [place] Protocol A moment to CARE was completed SIGN IN Personnel directly involved with the procedure wore the appropriate PPE Special Equipment: N/A Patient/Surrogate Stated/Verified: Patient name, Date of , Relevant allergies and Intended procedure TIME OUT Intended patient and procedure match the source document(s) Consent documented and matches the intended procedure No relevant labs, photos, and/or imaging studies were applicable for review. No correct side/site applicable for marking and visibility. Medications required for procedure verified. No fire risk assessment and interventions applicable. No implant(s) inserted. SIGN OUT No specimen collected. No instruments, equipment or retained foreign bodies applicable. Post-procedure follow-up management communicated and Plan of Care Visit completed when applicable Written Consent Obtained: Written LOT #: [id number] Expiration Date: Month: 11 Year: 2025 Injection Sites Left (Units) Left (Sites) Right (Units) Right (Sites) TOTAL (Units) Manager Mall 5 1 5 1 10 Procerus Units: 5 Sites: 1 5 Frontalis 10 2 10 2 20 Temporalis optional follow the pain 20 15 4 3 20 10 4 2 65 Occipitalis optional follow the pain 15 10 3 2 15 10 3 2 50 Cervical PSP 10 2 10 2 20 Trapezius 15 3 15 3 30 Total Units used: 200 Total Units wasted: 0 Prior Therapies Duration of Use Dose Side effect Other Therapies Nerve blocks Analgesic Diclofenac (Voltaren, Cataflam, [place]) Hydrocodone/Acetaminophen (Vicodin, [employer]) Anti-Anxiety Alprazolam (Xanax, Niravam) Diazepam (Valium) Anti-Convulsant Lamotrigine (Lamictal) Topiramate (Topamax, Trokendi XL, Qudexy) Anti-Depressant and Antipsychotic Quetiapine (Seroquel) Antiemetics Ondansetron Promethazine Anti-Migraine Rizatriptan (Maxalt) Sumatriptan (Imitrex, Sumavel) GEPANTS Rimegepant (Nurtec) Supplements CoQ10 Magnesium Riboflavin Other Medications Dexamethasone (Decadron) Methylprednisolone (Medrol) Prednisone Over the Counter Medications Acetaminophen (Tylenol) Ibuprofen (Advil, Motrin) Patient laid down after her procedure. Had orange juice and ice pack and felt better. Jaaj Moss APRN.CAGER OPERATOR [facility] 07-04-2024 Procedure note Images from the original note were not included. Headache Center Follow-up Visit Current Preventive: botox Change needed for current preventive? No Current Abortive: nurtec - worked before Botox wore off Change needed for current abortive? No Miscellaneous Patient Concerns: Last month headaches have been horrible. Got a hairless cat - has been helping with anxiety so far. Impression: Chronic migraine without aura, intractable, without status migrainosus (primary encounter diagnosis) Rosalva A Reina has been previously approved for an Oral Calcitonin Gene-Related Peptide Receptor Antagonist (GEPANT) Rimegepant for the treatment of abortive use. The patient has demonstrated the following: Provider attests patient has had a positive clinical response: Yes Patient will not use with another Oral Calcitonin Gene-Related Peptide Receptor Antagonist (GEPANT): Yes Patient's quality of life and ability to perform ADLs has improved: Yes We suggest the patient continue treatment with GEPANT Rimegepant. The following preventative medications have been tried for three or more months without benefit: Anti-Convulsant Lamotrigine (Lamictal) Topiramate (Topamax, Trokendi XL, Qudexy) Anti-Depressant and Antipsychotic Quetiapine (Seroquel) Supplements CoQ10 Magnesium Riboflavin The following abortive medications have been tried but require high frequency use which can lead to Medication Overuse Headache: Analgesic Diclofenac (Voltaren, Cataflam, [place]ia) Hydrocodone/Acetaminophen (Vicodin, [employer]) Anti-Anxiety Alprazolam (Xanax, Niravam) Diazepam (Valium) Anti-Migraine Rizatriptan (Maxalt) Sumatriptan (Imitrex, Sumavel) GEPANTS Rimegepant (Nurtec) Over the Counter Medications Acetaminophen (Tylenol) Ibuprofen (Advil, Motrin) Plan: - Botox today (see procedure note below), will increase to 200 units today - continue nurtec as needed Follow-Up Onabotulinum Toxin A (BotoxTM) for Migraine Indication: Chronic Intractable Migraine Treatment #: 4 Referral Expiration: 06/07/2025 Prior to the initiation of the FIRST treatment with Onabotulinum Toxin A, the patient reported the following average headache frequency over the past 3 MONTHS: Number of moderate-severe migraine days/month: 25 Number of mild migraine days/month: 0 Number of headache free days/month: 5 (120 headache-free hours) After treatment with Onabotulinum Toxin A: Number of moderate-severe migraine days/month: 2 Number of mild migraine days/month: 0 Number of headache free days/month: 28 (672 headache-free hours) Patient reduction in overall migraine days: Yes Patient reduction in moderate-severe migraine days: Yes Patient reduction of headache hours by 100 hours or more: Yes (reduction of 552 hours) Individual has obtained clinical benefit deemed significant by individual or prescriber (Y/N): Yes Patient's quality of life and ability to perform ADLs has improved (Y/N): Yes - the last month has been having a migraine every other day Side effects: none Wearing off: Yes - 8 weeks after treatment The patient has been assessed for disorders which could contribute to breathing or swallowing difficulty, and there is no contraindication with PREEMPT Botox. There is no documented allergic reaction/hypersensitivity to any botulinum toxin and there is no active infection at proposed injection site. HEADACHE SCORES: 12/03/2020 04/04/2024 Headache Questions ER visits since last office visit: 0 Hospital stays since last office visit 0 Limited ADLs in the last month: 2 Days missed from work or school in the last month: 0 Days headache pain free in the last month: 28 Days per month with ALL of the following symptoms - decreased productivity, light sensitivity and nausea: 2 Initial improvement of headache after botox injection at last visit: Not applicable, I did not have a botox injection at my last visit Very much improved PRN medication usage in the last month: 0 5 Patient impression of improvement since last visit: Not applicable, this is my first visit Very much improved 12/03/2020 04/04/2024 07/04/2024 HIT-6 HIT-6 63 (Severe impact) 60 (Severe impact) 63 (Severe impact) 12/03/2020 04/04/2024 07/04/2024 NIKKIE - 2/7 SCORES NIKKIE-2 Score 1 2 6 NIKKIE-7 Score 21 04/04/2024 07/04/2024 Migraine Specific QOL - Higher scores indicate better HRQL Role Function-Restrictive Transformed Score (range: 0-100) 60 60 Role Function-Preventive Transformed Score (range: 0-100) 60 60 Emotional Function Transformed Score (range: 0-100) 60 60 12/03/2020 04/04/2024 07/04/2024 PHQ-9 Score 4 1 5 BP 115/73 Pulse 98 LMP (LMP Unknown) SpO2 95% Patient name: Rosalva Huang : 1990 ALLERGIES Allergen Reactions Onion GI Upset Adhesive Tape (Rita* Rash, Itching Patient reports unable to tolerate band-aids after a procedure. She noted redness and itching at site of band aid. Mosquitos Swelling Phenergan [Prometha* GI Upset Sunscreen Rash Tingle tanning lotion Zyrtec [Cetirizine * Mental Status Change Made her very drowsy, UNIVERSAL PROTOCOL / SAFETY CHECKLIST Procedure: Onabotulinum toxin A for migraine Informed Consent Consent Obtained: Written [place] Protocol A moment to CARE was completed SIGN IN Personnel directly involved with the procedure wore the appropriate PPE Special Equipment: N/A Patient/Surrogate Stated/Verified: Patient name, Date of , Relevant allergies and Intended procedure TIME OUT Intended patient and procedure match the source document(s) Consent documented and matches the intended procedure No relevant labs, photos, and/or imaging studies were applicable for review. No correct side/site applicable for marking and visibility. Medications required for procedure verified. No fire risk assessment and interventions applicable. No implant(s) inserted. SIGN OUT No specimen collected. No instruments, equipment or retained foreign bodies applicable. Post-procedure follow-up management communicated and Plan of Care Visit completed when applicable Written Consent Obtained: Written LOT #: [id number] Expiration Date: Month: 11 Year: 2025 Injection Sites Left (Units) Left (Sites) Right (Units) Right (Sites) TOTAL (Units) Manager Mall 5 1 5 1 10 Procerus Units: 5 Sites: 1 5 Frontalis 10 2 10 2 20 Temporalis optional follow the pain 20 15 4 3 20 10 4 2 65 Occipitalis optional follow the pain 15 10 3 2 15 10 3 2 50 Cervical PSP 10 2 10 2 20 Trapezius 15 3 15 3 30 Total Units used: 200 Total Units wasted: 0 Prior Therapies Duration of Use Dose Side effect Other Therapies Nerve blocks Analgesic Diclofenac (Voltaren, Cataflam, [place]) Hydrocodone/Acetaminophen (Vicodin, [employer]) Anti-Anxiety Alprazolam (Xanax, Niravam) Diazepam (Valium) Anti-Convulsant Lamotrigine (Lamictal) Topiramate (Topamax, Trokendi XL, Qudexy) Anti-Depressant and Antipsychotic Quetiapine (Seroquel) Antiemetics Ondansetron Promethazine Anti-Migraine Rizatriptan (Maxalt) Sumatriptan (Imitrex, Sumavel) GEPANTS Rimegepant (Nurtec) Supplements CoQ10 Magnesium Riboflavin Other Medications Dexamethasone (Decadron) Methylprednisolone (Medrol) Prednisone Over the Counter Medications Acetaminophen (Tylenol) Ibuprofen (Advil, Motrin) Patient laid down after her procedure. Had orange juice and ice pack and felt better. Jaja Moss APRN.[place] documented in this encounter [facility] 06-13-2024 History of Presen t illness Narrative Associated Problem(s): Obsessive-compulsive disorder, unspecified Restart lexapro 2.5 mg daily x 2 weeks, if tolerated with no breakthrough hypomanic symptoms, may increase to 5 mg daily thereafter. F/u with RN to monitor symptoms in 1-2 weeks. Associated Problem(s): Generalized anxiety disorder Restart lexapro 2.5 mg daily x 2 weeks, if tolerated with no breakthrough hypomanic symptoms, may increase to 5 mg daily thereafter. F/u with RN to monitor symptoms in 1-2 weeks. Subjective Video conference visit (Leia.). Patient identity confirmed via name and date of . Potential risks and benefits discussed with patient/guardian, who verbalized consent for telehealth encounter. Patient location: home. Chief Complaint: Medication Management HPI 06/13/24: Rosalva Huang is a 34 year old female with h/o bipolar disorder and NIKKIE. Recently developed hypomanic symptoms and feeling so revved up (though denies decreased sleep). She felt it was getting worse (even with the risperdal and lamotrigine on board) so stopped taking the lexapro. Denies impulsivity or risk-taking behaviors. C/o flight of ideas, feeling hyperactive and irritability/rage. Has required 2-3 extra doses of risperdal 0.5 mg when she feels "manicky" - she is also sleep deprived. Notes that these symptoms improved after stopping lexapro, but anxiety is also increased. Willing to try a lower dose and slower rate of increasing the lexapro so long as she can take PRN doses of risperdal if she feels too revved up. Denies depressive symptoms. Denies AVH. Denies SI/HI. Boyfriend thinks she may have autism. Sometimes will say things that are perceived as rude or wrong. People get offended by her in social situations. She also has trouble making eye contact with people since she was younger. 03/21/24: Pt notes her intrusive thoughts are getting worse. Panic attacks have subsided but she has a high level of baseline anxiety. +restlessness. Worries excessively about the kids and feels tense a lot. She feels overwhelmed caring for two young kids without any support. Her aunt lives a distance away so hasn't been able to help care for the kids much lately. Denies any depressed mood. No recent manic or hypomanic symptoms. This is the most normal I've ever been in my life." Denies racing thoughts or flight of ideas. Concentration is reported to be pretty good. Sleeping well at night. Denies paranoia per se, just the fleeting intrusive nights. Hasn't tried ativan yet b/c panic attacks resolved when her son left the hospital. She denies depressed mood, hopelessness or SI/HI. Interim substance use history: Social History Substance and Sexual Activity Drug Use Not Currently Types: Opioids, Marijuana Comment: When she was 17 she had a problem with marijuana and prescription drug abuse (snorted Xanax and abused pain pills) and she got in trouble at 17 and at 18 she stopped Tobacco History Tobacco Use Smoking Status Never Smokeless Tobacco Never Social History Substance and Sexual Activity Alcohol Use Not Currently Comment: has not drank since she was 18 Meds: Outpatient Medications Prior to Visit Medication Sig Dispense Refill escitalopram (LEXAPRO) 10 mg tablet Take 1 Tablet by mouth once daily (Patient not taking: Reported on 06/13/2024) 30 Tablet 0 lamoTRIgine (LAMICTAL) 200 mg tablet Take 1 Tablet by mouth once daily 30 Tablet 0 risperiDONE (RISPERDAL) 0.5 mg tablet Take 1 Tablet by mouth nightly at bedtime With 2 mg for total 2.5 mg dosage 30 Tablet 0 risperiDONE (RISPERDAL) 2 mg tablet Take 1 Tablet by mouth nightly at bedtime 30 Tablet 0 onabotulinumtoxinA (BOTOX) 200 unit solr injection Inject 200 Units into the skin Every 12 Weeks LORazepam (ATIVAN) 0.5 mg tablet Take 1 Tablet by mouth once daily as needed for anxiety 30 Tablet 0 ibuprofen 800 mg tablet Take 800 mg by mouth every 8 (eight) hours as needed methylcellulose, laxative, (CITRUCEL) 500 mg tab tab Take 1,000 mg by mouth every 8 (eight) hours as needed omeprazole (PRILOSEC) [address] capsule Take 20 mg by mouth once daily (Patient not taking: Reported on 06/13/2024) amoxicillin (AMOXIL) 875 mg tablet TAKE 1 TABLET BY MOUTH TWICE DAILY FOR 7 DAYS rimegepant (NURTEC ODT) 75 mg TbDi Take 75 mg by mouth ibuprofen 600 mg tablet Take 600 mg by mouth every 6 (six) hours as needed for pain (Patient not taking: Reported on 06/13/2024) penicillin V potassium (VEETID) 250 mg tablet Take 500 mg by mouth 4 (four) times daily (Patient not taking: Reported on 06/13/2024) acetaminophen (TYLENOL) 500 mg tablet [employer] VERXLerant TEST STRIPS strips No facility-administered medications prior to visit. Objective 06/13/2024 1:59 PM BP 106/78 BP Site Left Arm BP Position Sitting Pulse 85 Weight 158 lb (71.7 kg) % Change in weight NA Height 5' 2" (157.5 cm) Estimated body mass index is 28.9 kg/m as calculated from the following: Height as of this encounter: 5' 2" (1.575 m). Weight as of this encounter: 158 lb (71.7 kg). Mental Status Exam Appearance is appropriate for circumstance and neat. as able to visualize on videoconference General Health is generally good. as able to visualize on videoconference Eye Contact is good. as able to visualize on video Motor Activity is unremarkable. as able to visualize on video Speech is unremarkable. Affect is full range and mood-congruent. Reported Mood is neutral/euthymic. Thought Content is unremarkable does not have suicidal ideations, does not have homicidal ideations and does not have delusions. Thought Process is unremarkable. Perception is unremarkable does not have hallucinations. Attention is alert. Demeanor is appropriate for situation. Insight is appropriate. Judgement is appropriate. Orientation is fully oriented. Memory is grossly intact. MSE Comments: Videoconferencing limited full visualization of facial expressions. Unable to assess gait as pt was seated for session. Data Reviewed (labs, BASIS-24, AIMS, outside records, etc): Lab Results Component Value Date CHOL 207 (H) 06/13/2024 LDL 135 (H) 06/13/2024 HDL 48 06/13/2024 TRIGLYC 135 06/13/2024 HGBA1C 5.4 06/13/2024 BASIS-24 Clinical Severity - Most Recent Administration Date Administered: 06/13/2024 Domain Subscore & Severity Depression/Functioning 0.88 - Low Interpersonal Relationships 3.39 - High Self-Harm 0 - Low Emotional Lability 2.22 - High Psychosis 0 - Low Alcohol/Drug Use 0 - Low BASIS-24 Overall Score 1.29 - Moderate Reference: BASIS-24 Behavior and Symptom Identification Scale: Clinical Cut Scores. Jama Patel (2018). Last Menstrual Period: Assessment Safety Risk Assessment: Acute risk for harm to self/others: Low Chronic risk for harm to self/others: Moderate Plan Risks, benefits, and alternatives were discussed. Patient/guardian understood and agreed with the plan. Reviewed Safety Plan: Call 911 or go to ED if in crisis. Advised of availability of after hours RN by calling main number for [facility]. Provided education re: ASDs and neuroatypicality/neurodivergent traits vs autistic disorder. Will continue to monitor symptoms and discuss, but at this time symptoms appear to be too mild to meet criteria for a diagnosis of autistic disorder per DSM-V TR criteria. 1. Bipolar disorder in partial remission, most recent episode unspecified type ([facility]) (Primary) - lamoTRIgine (LAMICTAL) 200 mg tablet; Take 1 Tablet by mouth once daily, Disp-30 Tablet, R-1 e-Prescribing, Long-term Dispense: 30 Tablet; Refill: 1 - risperiDONE (RISPERDAL) 0.5 mg tablet; Take 1 Tablet by mouth nightly at bedtime With 2 mg for total 2.5 mg dosage, Disp-30 Tablet, R-1 e-Prescribing, Long-term Dispense: 30 Tablet; Refill: 1 - risperiDONE (RISPERDAL) 2 mg tablet; Take 1 Tablet by mouth nightly at bedtime Take together with 0.5 mg for total 2.5 mg daily dosage, Disp-30 Tablet, R-1 e-Prescribing, Long-term Dispense: 30 Tablet; Refill: 1 - risperiDONE (RISPERDAL) 0.5 mg tablet; Take 1 Tablet by mouth once daily as needed for other reason (hypomanic symptoms), Disp-30 Tablet, R-1 e-Prescribing, Long-term Dispense: 30 Tablet; Refill: 1 2. Generalized anxiety disorder Assessment & Plan: Restart lexapro 2.5 mg daily x 2 weeks, if tolerated with no breakthrough hypomanic symptoms, may increase to 5 mg daily thereafter. F/u with RN to monitor symptoms in 1-2 weeks. Orders: - escitalopram oxalate (LEXAPRO) 5 mg tablet; 1/2 tab po daily, Disp-30 Tablet, R-1 e-Prescribing, Long-term Dispense: 30 Tablet; Refill: 1 3. Mixed obsessional thoughts and acts Assessment & Plan: Restart lexapro 2.5 mg daily x 2 weeks, if tolerated with no breakthrough hypomanic symptoms, may increase to 5 mg daily thereafter. F/u with RN to monitor symptoms in 1-2 weeks. Orders: - escitalopram oxalate (LEXAPRO) 5 mg tablet; 1/2 tab po daily, Disp-30 Tablet, R-1 e-Prescribing, Long-term Dispense: 30 Tablet; Refill: 1 4. Long-term use of high-risk medication - LIPID PANEL WITH REFLEX; Future - HEMOGLOBIN GLYCOSYLATED A1C; Future 5. Screening for endocrine, metabolic and immunity disorder - LIPID PANEL WITH REFLEX; Future - HEMOGLOBIN GLYCOSYLATED A1C; Future Follow-up: No follow-ups on file. Upcoming Appointments: Appointments for the next 13 months 08/01/2024 2:20 PM MEDICATION MANAGEMENT [facility] [id number] NURSE LUCI MONTANA 20 min 08/01/2024 2:40 PM MEDICATION MANAGEMENT [facility] Herberth Montana DO 20 min Reason for visit: Davian Castro presents prior to their psychiatry provider visit to evaluate medication effectiveness, update medical history, and review overall treatment status. Subjective Interval history and patient concerns: Main concern stated to be addressed for today's appointment is medication management / refills. Depression at a 0 /10 anxiety is at 8/10, reports having bad social anxiety. States she wants to also be assessed for potential autism or being on the spectrum. Sleep has been weird lately due to her sons sleeping issues and waking up often , Daily energy levels are low , but drinking a lot of coffee to compensate, but says she feels its good cause it means she isn't getting Manic . Appetite has been high and has been binge eating randomly over the last few months , focus and concentration reported to be off . She states her boyfriend mentioned he thought maybe she has autism. Current Outpatient Medications Medication Instructions acetaminophen (TYLENOL) 500 mg tablet No dose, route, or frequency recorded. amoxicillin (AMOXIL) 875 mg tablet TAKE 1 TABLET BY MOUTH TWICE DAILY FOR 7 DAYS CitruceL 1,000 mg, oral, Every 8 hours PRN escitalopram (LEXAPRO) 10 mg, oral, Daily ibuprofen 600 mg, oral, Every 6 hours PRN, for pain ibuprofen 800 mg, oral, Every 8 hours PRN lamoTRIgine (LAMICTAL) 200 mg, oral, Daily LORazepam (ATIVAN) 0.5 mg, oral, Daily PRN Nurtec ODT 75 mg, oral omeprazole (PRILOSEC) 20 mg, oral, Daily onabotulinumtoxinA (BOTOX) 200 Units, intradermal, EVERY 12 Weeks ONETOUCH VERIO TEST STRIPS strips No dose, route, or frequency recorded. penicillin V (VEETID) 500 mg, oral, 4 times daily risperiDONE (RISPERDAL) 0.5 mg, oral, NIGHTLY, With 2 mg for total 2.5 mg dosage risperiDONE (RISPERDAL) 2 mg, oral, NIGHTLY Reported medication adherence: Reported to be taking medications as prescribed by Provider. Reported medication side effects: Denies any current side effects present with current medication use. New medical problems or history: Denies any new medical issues or recent changes. Objective Vitals Blood pressure 106/78, pulse 85, height 5' 2" (1.575 m), weight 158 lb (71.7 kg), not currently . Mental Status Exam: Behavior: cooperative engaged and responsive Speech: unremarkable Is able to answer questions appropriately from Nurse. Mood: Feels blah or neutral Affect: appropriate for circumstance Thought content: unremarkable Denies any issues or concerns being present. Perception: unremarkable Denies any issues or concerns being present. ? BASIS-24 Clinical Severity - Most Recent Administration Date Administered: 06/13/2024 Domain Subscore & Severity Depression/Functioning 0.88 - Low Interpersonal Relationships 3.39 - High Self-Harm 0 - Low Emotional Lability 2.22 - High Psychosis 0 - Low Alcohol/Drug Use 0 - Low BASIS-24 Overall Score 1.29 - Moderate Reference: BASIS-24 Behavior and Symptom Identification Scale: Clinical Cut Scores. Jama Patel (2018). Assessment Provider diagnosis and treatment plan reviewed. F31.75 Bipolar disorder, in partial remission, most recent episode depressed ([facility]) (primary encounter diagnosis) F41.1 Generalized anxiety disorder F42.2 Mixed obsessional thoughts and acts F43.10 Post traumatic stress disorder Comment: Medications reported to be working well for symptom management. Risk Assessment: Acute risk for harm to self/others: Low States she has random intrusive thoughts of harming herself and others but its always just passive and never feels need to act on it . Plan Verified patient medications and allergies; updated patient medical history in medical record. Provided report to Dr Montana regarding patient concerns and status. Continue all current therapies and take medications as prescribed. Call this office at # [phone] if need arises for assistance before next scheduled appointment. Upcoming appointments: Appointments for the next 13 months None documented in this encounter [facility] [employer] Work Phone: 06-01-2024 Nurse Note TH returned call to client regarding scheduling appt and requested call back. documented in this encounter [facility] Work Phone: 05-18-2024 History of Presen t illness Narrative POPULATION HEALTH NAVIGATION OUTREACH Action/FYI RP Patient Outreach: Spoke with patient to schedule new Physical/Occupational Therapy Consult for Rehab and Sports Therapy. Patient declined RST Consult at this time. She will call back to schedule. Reason for Outreach Care Gap/HCC or Scheduling Wellness Visits Care Gaps due: N/A Patient Contacted: Spoke to patient/parent/or legal guardian Patient identified by name and : Yes Care Gap/HCC/Scheduling Wellness actions taken: Patient declined: Patient will call back later to schedule or asks for a call back Navigation [facility]: Anjali Ordonez May 18, 2024 1:13 PM documented in this encounter [facility] 05-10-2024 History of Presen t illness Narrative Reason for Visit: Individual Counseling Video conference visit (Leia.). Patient identity confirmed via name and date of . Potential risks and benefits discussed with patient/guardian, who verbalized consent for telehealth encounter. Patient location: home. 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 CL expressed feeling frustrated with Aunt after being told could watch kids two days a week but has changed plans and having to readjust plans for future. F42.2 Mixed obsessional thoughts and acts (primary encounter diagnosis) Mental Status Exam: Within normal limits. Intervention: The following goals were addressed today: I will identify and balance thoughts that trigger my anxiety (see measurable component below): and I will practice self-care daily to decrease and prevent anxiety. Next Care Plan Review Date: 05/15/2024 Provider addressed Rosalva's concerns related to the presenting problem above through the following therapeutic interventions: Active and reflective listening and Assist in problem solving. Acute risk for harm to self/others: Low C-SSRS Screen Response/Impression: Rosalva demonstrated minimal improvement in session today as evidenced by stating new goals and being able to identify plans for future. Overall impression of treatment demonstrates moderate improvement as evidenced by using flexible thinking and looking at alternative plans for self employment. CL was defensive and presented angry about Aunt's decision to not drive to home twice a week.TH explored being able to respect decisions from Aunt and having boundaries regarding decision making and affirmed client choice to look at alternative plans, BASIS-24 Clinical Severity - Most Recent Administration Date Administered: 07/15/2023 Domain Subscore & Severity Depression/Functioning 1.33 - Moderate Interpersonal Relationships 1.38 - Moderate Self-Harm 0 - Low Emotional Lability 1.5 - Moderate Psychosis 0 - Low Alcohol/Drug Use 0 - Low BASIS-24 Overall Score 1.07 - Moderate Reference: BASIS-24 Behavior and Symptom Identification Scale: Clinical Cut Scores. Jama Patel (2018). Plan: Rosalva's follow-up/homework: CL will write outline for conversation to have with Aunt to reduce any future strain. Provider's follow-up/referrals/action items: N/A Next appointment with this provider: 05/19/24 documented in this encounter [facility] Work Phone: 05-03-2024 History of Presen t illness Narrative Reason for Visit: Individual Counseling Video conference visit (Leia.). Patient identity confirmed via name and date of . Potential risks and benefits discussed with patient/guardian, who verbalized consent for telehealth encounter. Patient location: home. Problem: CL reports having increased depression due to not having meds for about six days. CL reports having increased suicidal thoughts but no plan of action for self harm. CL informed of having baseline intrusive thoughts. 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 F31.75 Bipolar disorder, in partial remission, most recent episode depressed ([facility]) (primary encounter diagnosis) Mental Status Exam: Appearance: appropriate Behavior: cooperative, anxious Speech: unremarkable Mood: neutral Affect: appropriate for circumstance Thought content: depressive cognitions Perception: unremarkable Insight: appropriate Judgement: appropriate Intervention: The following goals were addressed today: "I know it will never go away but I want to get better coping skills to manage" Next Care Plan Review Date: 05/15/2024 Provider addressed Rosalva's concerns related to the presenting problem above through the following therapeutic interventions: Active and reflective listening, Enhancing coping skills, and Symptom management, skill building. 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 Overall impression of treatment demonstrates moderate improvement as evidenced by use of coping skills when feeling symptomatic and identifying how to control thoughts. TH asked open ended questions about recent smyptoms and management for intrusive thoughts. TH assessed client safety and ability to manage thoughts by using coping skills of redirection and staying busy with "Mom duties". TH asked open ended questions about Lash studio to gain more insight about goals and future outlook. Mya was late to appt due to breaking dish in kitchen and having to clean up before logging on. BASIS-24 Clinical Severity - Most Recent Administration Date Administered: 07/15/2023 Domain Subscore & Severity Depression/Functioning 1.33 - Moderate Interpersonal Relationships 1.38 - Moderate Self-Harm 0 - Low Emotional Lability 1.5 - Moderate Psychosis 0 - Low Alcohol/Drug Use 0 - Low BASIS-24 Overall Score 1.07 - Moderate Reference: BASIS-24 Behavior and Symptom Identification Scale: Clinical Cut Scores. Jama Patel (2018). Plan: Rosalva's follow-up/homework: CL wasrecommended to follow up with [facility] regarding lash studio to prevent any citations. Provider's follow-up/referrals/action items: N/A Next appointment with this provider: 05/10/24 documented in this encounter [facility] Work Phone: 04-22-2024 History of Presen t illness Narrative Reason for Visit: Individual Counseling Video conference visit (Leia.). Patient identity confirmed via name and date of . Potential risks and benefits discussed with patient/guardian, who verbalized consent for telehealth encounter. Patient location: home. Problem: CL expressed since starting new meds feeling "super manic". CL stated, "I feel exhausted today after feeling manic". CL stated talking to partner and doctors about having another baby but not feeling aligned with partner about best time to try. CL expressed feeling that having children closer in age would be "easier" and having them too far apart will create strain with difference due to developmental growth stages. CL stated wanting to move but feeling unsure about moving [place] "the country" or [place] [facility] CL reflected on birthday republican for daughter and being able to make friends after inviting mom's from [employer]'s group. 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 F42.2 Mixed obsessional thoughts and acts (primary encounter diagnosis) Mental Status Exam: Within normal limits. Intervention: The following goals were addressed today: I will identify and balance thoughts that trigger my anxiety (see measurable component below): and I will participate in regular follow-up visits for monitoring my condition s response to psychiatric medication. Next Care Plan Review Date: 05/15/2024 Provider addressed Rosalva's concerns related to the presenting problem above through the following therapeutic interventions: Active and reflective listening and Symptom management, skill building. Acute risk for harm to self/others: Low C-SSRS Screen Response/Impression: Rosalva demonstrated minimal improvement in session today as evidenced by having self awareness of symptoms and reaching out to provider regarding symptoms and feeling more managed. Overall impression of treatment demonstrates moderate improvement as evidenced by staying goal focused for creating a healthier lifestyle and reports of losing ten pounds.CL reports being able to have open conversation with partner and expressing need for self care and scheduling activities for self. TH and CL explored how to continue to use mindfulness about eating behaviors to stay goal focused. CL declined any incorporation of exercise but is waiting for treadmill and other exercise equipment to arrive to help assist with goals. Th explored pro/con for moving to either location discussed. BASIS-24 Clinical Severity - Most Recent Administration Date Administered: 07/15/2023 Domain Subscore & Severity Depression/Functioning 1.33 - Moderate Interpersonal Relationships 1.38 - Moderate Self-Harm 0 - Low Emotional Lability 1.5 - Moderate Psychosis 0 - Low Alcohol/Drug Use 0 - Low BASIS-24 Overall Score 1.07 - Moderate Reference: BASIS-24 Behavior and Symptom Identification Scale: Clinical Cut Scores. Jama Patel (2018). Plan: Rosalva's follow-up/homework: CL will continue to monitor symptoms and connect to providers if symptoms increase. Provider's follow-up/referrals/action items: N/A Next appointment with this provider: 05/03/24 documented in this encounter [facility] Work Phone: 04-22-2024 History of Presen t illness Narrative Telephone visit. Patient identity confirmed via name and date of . Potential risks and benefits discussed with patient/guardian, who verbalized consent for telehealth encounter. Reason for Telephone: Technology/connectivity failure during appointment . Patient location: home. Registered Nurse Visit 04/22/2024 10:00 AM Reason For Visit Health maintenance ("care gap") screening, assessment, education, and referral. Interval History and Patient Concerns Rosalva reports she began to feel manic on the lexapro. Stopped it for few days and abigail improved. Then tried another dose of lexapro and immediately became manic again. So she discontinued it. Reports she was not sleeping, increased yelling, raging, and was "speed cleaning" and hyper. Since stopping the lexapro, the abigail has decreased somewhat. She is still "doing a lot of stuff" and is having a hard time focusing. She increased her Risperdal to 3 mg nightly. She is sleeping better. No depression. ANxiety is better. Intrusive thoughts better. No psychotic symptoms. Is considering getting again in June and is wanting to breastfeed. Will discuss medication options at next appt with Dr. Montana and wants to know what dose of risperdal would be safer. Medication Adherence Good Side Effects Reported Yes Yes (Comment) abigail from lexapro New Medical Problems or History denies Vitals Taken? No COWS Completed? No AIMS Completed? No Nursing Specialty Psychiatry Patient has Narcan? No Reported Mood Euthymic Reported Sleep improved Reported Appetite good Hallucinations or Delusions None Reported General Alert;Cooperative Behavior Cooperative;Relaxed and engaged Insight Appropriate Judgment Appropriate ? Title X Services Was a Title X service provided? No. Assessment and Plan Risk Assessment Acute risk for harm to self/others: Low 1. Bipolar disorder, in partial remission, most recent episode depressed ([facility]) (Primary) 2. Generalized anxiety disorder Care Planning Additional Plan: Patient education provided this visit: medication, symptoms, coping, side effects Routed encounter note to Dr. Montana Client to My Chart next week to update symptoms Reach out sooner if needed To discuss medication options in regards to and at next follow up Reviewed upcoming appointments: Appointments for the next 13 months 04/22/2024 11:00 AM COUNSELING EXTENDED [facility] VASQUEZ Whaley 60 min 06/13/2024 1:40 PM MEDICATION MANAGEMENT [facility] Tessa Dill RN 20 min 06/13/2024 2:00 PM MEDICATION MANAGEMENT [facility] Herberth Montana DO 40 min documented in this encounter [employer] Phone: 04-14-2024 History of Presen t illness Narrative Reason for Visit: No chief complaint on file. Video conference visit ([email or web address]). Patient identity confirmed via name and date of . Potential risks and benefits discussed with patient/guardian, who verbalized consent for telehealth encounter. Patient location: home. Problem: CL expressed really wanting a baby lately and feeling urge to get again. CL stated trying to force thoughts out of mind and thinking that there is nothing that helps and stated, "I know I can do it". CL stated, "I want to have my babies before 35 so I can be a young grandma and be there for my grandbabies". CL expressed having material things and money is more important than having a partner to help co-parent and get support. CL refected on childhood and stated, "I hated growing up frugal". F42.2 Mixed obsessional thoughts and acts (primary encounter diagnosis) Mental Status Exam: Within normal limits. Intervention: The following goals were addressed today: "I know it will never go away but I want to get better coping skills to manage" Next Care Plan Review Date: 05/15/2024 Provider addressed Rosalva's concerns related to the presenting problem above through the following therapeutic interventions: Active and reflective listening and Identifying and exploring core beliefs. Acute risk for harm to self/others: Low C-SSRS Screen Response/Impression: Rosalva demonstrated minimal improvement in session today as evidenced by willingness to explore feelings associated with wanting a baby and feeling obsessive about thoughts. Overall impression of treatment demonstrates no change as evidenced by avoidant behaviors when challenged about how core beliefs can affect adulthood. TH explored attachment theory and reflection of own childhood. Cl was avoidant of direct questions and defensive when challenged. BASIS-24 Clinical Severity - Most Recent Administration Date Administered: 07/15/2023 Domain Subscore & Severity Depression/Functioning 1.33 - Moderate Interpersonal Relationships 1.38 - Moderate Self-Harm 0 - Low Emotional Lability 1.5 - Moderate Psychosis 0 - Low Alcohol/Drug Use 0 - Low BASIS-24 Overall Score 1.07 - Moderate Reference: BASIS-24 Behavior and Symptom Identification Scale: Clinical Cut Scores. Jama Patel (2018). Plan: Rosalva's follow-up/homework: Cl will assess values and talk with partner more about . Provider's follow-up/referrals/action items: N/A Next appointment with this provider: 04/22/24 documented in this encounter [facility] Work Phone: 04-07-2024 History of Presen t illness Narrative Telephone visit. Patient identity confirmed via name and date of . Potential risks and benefits discussed with patient/guardian, who verbalized consent for telehealth encounter. Reason for Telephone: Technology/connectivity failure during appointment . Patient location: home. Registered Nurse Visit 04/07/2024 10:00 AM Reason For Visit Health maintenance ("care gap") screening, assessment, education, and referral. Interval History and Patient Concerns Rosalva reports she has been on Lexapro 5 mg for a couple weeks now. She denies any side effects or problems with med. Reports she does not notice much difference yet, and would like to increase dose. Reports her intrusive thoughts of something bad might happen come and go. Denies feeling manic. Denies feeling depressed. Notices she is no longer biting her lips from anxiety. Also notices she is not binge eating any longer. Denies thoughts of self harm or harming others. Denies hallucinations or delusional thoughts. Sleep is good now that her baby is sleeping through the night. Medication Adherence Good Side Effects Reported No New Medical Problems or History cold symptoms x 3 days Vitals Taken? No COWS Completed? No AIMS Completed? No Nursing Specialty Psychiatry Patient has Narcan? No Reported Mood Euthymic Reported Sleep good Reported Appetite good Hallucinations or Delusions None Reported General Alert;Cooperative Behavior Cooperative;Relaxed and engaged Insight Appropriate Judgment Appropriate ? Title X Services Was a Title X service provided? No. Assessment and Plan Risk Assessment Acute risk for harm to self/others: Low 1. Bipolar disorder, in partial remission, most recent episode depressed ([facility]) (Primary) 2. Generalized anxiety disorder Care Planning Additional Plan: Patient education provided this visit: symptoms, side effects, coping, medication Routed encounter note to Dr. Montana Call client back after discussing lexapro dose with Dr. Montana Follow up as scheduled Call/ My Chart as needed Reviewed upcoming appointments: Appointments for the next 13 months 04/08/2024 12:00 PM COUNSELING EXTENDED [facility] VASQUEZ Whaley 60 min 05/09/2024 11:00 AM MEDICATION MANAGEMENT [facility] [id number] BW NURSE LUCI MONTANA 20 min 05/09/2024 11:20 AM MEDICATION MANAGEMENT [facility] Herberth Montana DO 40 min documented in this encounter [facility] Work Phone: 04-05-2024 History of Presen t illness Narrative Associated Problem(s): Bipolar disorder, in partial remission, most recent episode depressed ([facility]) Continue lamotrigine and risperdal for now Subjective Video conference visit (Leia.). Patient identity confirmed via name and date of . Potential risks and benefits discussed with patient/guardian, who verbalized consent for telehealth encounter. Patient location: home. Chief Complaint: Psychiatric Med Management HPI 03/21/24: Pt notes her intrusive thoughts are getting worse. Panic attacks have subsided but she has a high level of baseline anxiety. +restlessness. Worries excessively about the kids and feels tense a lot. She feels overwhelmed caring for two young kids without any support. Her aunt lives a distance away so hasn't been able to help care for the kids much lately. Denies any depressed mood. No recent manic or hypomanic symptoms. This is the most normal I've ever been in my life." Denies racing thoughts or flight of ideas. Concentration is reported to be pretty good. Sleeping well at night. Denies paranoia per se, just the fleeting intrusive nights. Hasn't tried ativan yet b/c panic attacks resolved when her son left the hospital. She denies depressed mood, hopelessness or SI/HI. 02/22/24: Pt reports anxiety has been pretty high. Son is very ill, has been in hospital for past 7 days. They cannot get iv access in him d/t extensive venous scarring, so they are considering putting in a central line. She has been at the hospital night and day and not getting consistent sleep. Has had several panic attacks where she feels like she is going to pass out/faint. They typically come on suddenly and do not last longer than an hour. She does not want anything to make her too sedated but is interested today for a short-term option since she thinks most of her panic attacks are related to Alexandre's health issues. [place] the buspar made her manic and that is why she stopped taking it, so she remains apprehensive about trying an SSRI/SNRI at this time but agreeable to short-term tx with anxiolytic and then if baseline anxiety level remains elevated and/or panic symptoms worsen or do not improve, will revisit. With respect to mood, she denies depressive/manic/hypomanic symptoms. Recent increase in risperdal has resulted in best mood stability she has had in awhile. Tolerating lamotrigine as well. Denies psychotic symptoms, denies SI/HI. Interim substance use history: Social History Substance and Sexual Activity Drug Use Not Currently Types: Opioids, Marijuana Comment: When she was 17 she had a problem with marijuana and prescription drug abuse (snorted Xanax and abused pain pills) and she got in trouble at 17 and at 18 she stopped History Smoking Status Never Smokeless Tobacco Never Social History Substance and Sexual Activity Alcohol Use Not Currently Comment: has not drank since she was 18 Meds: Outpatient Medications Prior to Visit Medication Sig Dispense Refill LORazepam (ATIVAN) 0.5 mg tablet Take 1 Tablet by mouth once daily as needed for anxiety 30 Tablet 0 lamoTRIgine (LAMICTAL) 200 mg tablet Take 1 Tablet by mouth once daily 30 Tablet 0 risperiDONE (RISPERDAL) 0.5 mg tablet Take 1 Tablet by mouth nightly at bedtime With 2 mg for total 2.5 mg dosage 30 Tablet 0 risperiDONE (RISPERDAL) 2 mg tablet Take 1 Tablet by mouth nightly at bedtime 30 Tablet 0 ibuprofen 800 mg tablet Take 800 mg by mouth every 8 (eight) hours as needed methylcellulose, laxative, (CITRUCEL) 500 mg tab tab Take 1,000 mg by mouth every 8 (eight) hours as needed omeprazole (PRILOSEC) [address] capsule Take 20 mg by mouth once daily amoxicillin (AMOXIL) 875 mg tablet TAKE 1 TABLET BY MOUTH TWICE DAILY FOR 7 DAYS rimegepant (NURTEC ODT) 75 mg TbDi Take 75 mg by mouth ibuprofen 600 mg tablet Take 600 mg by mouth every 6 (six) hours as needed for pain penicillin V potassium (VEETID) 250 mg tablet Take 500 mg by mouth 4 (four) times daily acetaminophen (TYLENOL) 500 mg tablet ONETOUCH VERIO TEST STRIPS strips No facility-administered medications prior to visit. Objective 05/07/2021 11:05 AM Height 5' 2" (157.5 cm) Mental Status Exam Appearance is appropriate for circumstance and neat. as able to visualize on videoconference General Health is generally good. as able to visualize on videoconference Eye Contact is good. as able to visualize on video Motor Activity is unremarkable. as able to visualize on video Speech is unremarkable. Affect is full range and mood-congruent. Reported Mood is neutral/euthymic. Thought Content is unremarkable does not have suicidal ideations, does not have homicidal ideations and does not have delusions. Thought Process is unremarkable. Perception is unremarkable does not have hallucinations. Attention is alert. Demeanor is appropriate for situation. Insight is appropriate. Judgement is appropriate. Orientation is fully oriented. Memory is grossly intact. MSE Comments: Videoconferencing limited full visualization of facial expressions. Unable to assess gait as pt was seated for session. Data Reviewed (labs, BASIS-24, AIMS, outside records, etc): Lab Results Component Value Date HGBA1C 5.2 06/03/2022 BASIS-24 Clinical Severity - Most Recent Administration Date Administered: 07/15/2023 Domain Subscore & Severity Depression/Functioning 1.33 - Moderate Interpersonal Relationships 1.38 - Moderate Self-Harm 0 - Low Emotional Lability 1.5 - Moderate Psychosis 0 - Low Alcohol/Drug Use 0 - Low BASIS-24 Overall Score 1.07 - Moderate Reference: BASIS-24 Behavior and Symptom Identification Scale: Clinical Cut Scores. Jama Patel (2018). Last Menstrual Period: Assessment Safety Risk Assessment: Acute risk for harm to self/others: Low Chronic risk for harm to self/others: Moderate Plan Risks, benefits, and alternatives were discussed. Patient/guardian understood and agreed with the plan. Reviewed Safety Plan: Call 911 or go to ED if in crisis. Advised of availability of after hours RN by calling main number for [facility]. 1. Bipolar disorder, in partial remission, most recent episode depressed ([facility] (Primary) Assessment & Plan: Continue lamotrigine and risperdal for now Orders: - RN NURSING PER 15 MIN 2. Generalized anxiety disorder - escitalopram oxalate (LEXAPRO) 5 mg tablet; Take 1 Tablet by mouth once daily, Disp-30 Tablet, R-1 e-Prescribing, Long-term Dispense: 30 Tablet; Refill: 1 3. Bipolar disorder in partial remission, most recent episode unspecified type ([facility]) - lamoTRIgine (LAMICTAL) 200 mg tablet; Take 1 Tablet by mouth once daily, Disp-30 Tablet, R-1 e-Prescribing, Long-term Dispense: 30 Tablet; Refill: 1 - risperiDONE (RISPERDAL) 0.5 mg tablet; Take 1 Tablet by mouth nightly at bedtime With 2 mg for total 2.5 mg dosage, Disp-30 Tablet, R-1 e-Prescribing, Long-term Dispense: 30 Tablet; Refill: 1 - risperiDONE (RISPERDAL) 2 mg tablet; Take 1 Tablet by mouth nightly at bedtime, Disp-30 Tablet, R-1 e-Prescribing, Long-term Dispense: 30 Tablet; Refill: 1 Follow-up: No follow-ups on file. Upcoming Appointments: Appointments for the next 13 months 04/07/2024 10:00 AM NURSE VISIT SHORT [facility] Tessa Dill RN 20 min 04/08/2024 12:00 PM COUNSELING EXTENDED [facility] VASQUEZ Whaley 60 min 05/09/2024 11:00 AM MEDICATION MANAGEMENT [facility] SA[address] BW NURSE RUBÉN 20 min 05/09/2024 11:20 AM MEDICATION MANAGEMENT [facility] Herberth Montana DO 40 min Reason for visit: Psychiatric Med Management Rosalva presents via video Subjective Interval history and patient concerns: Reports things have been rough. Irritability. No down time with the kids, adds to stress. Baby is on her all day long. Intrusive thoughts worse lately, negative thinking. Barely leaves the house. Denies thoughts of self harm or harming others. Denies hallucinations or delusional thoughts. No depression. Abigail is stable, no symptoms. Sleeping better. Current Outpatient Medications Medication Instructions acetaminophen (TYLENOL) 500 mg tablet No dose, route, or frequency recorded. amoxicillin (AMOXIL) 875 mg tablet TAKE 1 TABLET BY MOUTH TWICE DAILY FOR 7 DAYS CitruceL 1,000 mg, oral, Every 8 hours PRN ibuprofen 600 mg, oral, Every 6 hours PRN, for pain ibuprofen 800 mg, oral, Every 8 hours PRN lamoTRIgine (LAMICTAL) 200 mg, oral, Daily LORazepam (ATIVAN) 0.5 mg, oral, Daily PRN Nurtec ODT 75 mg, oral omeprazole (PRILOSEC) 20 mg, oral, Daily ONETOUCH VERIO TEST STRIPS strips No dose, route, or frequency recorded. penicillin V (VEETID) 500 mg, oral, 4 times daily risperiDONE (RISPERDAL) 0.5 mg, oral, NIGHTLY, With 2 mg for total 2.5 mg dosage risperiDONE (RISPERDAL) 2 mg, oral, NIGHTLY Reported medication adherence: yes Reported medication side effects: denies New medical problems or history: denies Objective Vitals not currently . Mental Status Exam: Behavior: generally relaxed and engaged Speech: unremarkable Mood: neutral Affect: appropriate for circumstance Thought content: unremarkable Perception: unremarkable Additional objective data: ? Assessment Provider diagnosis and treatment plan reviewed. F31.75 Bipolar disorder, in partial remission, most recent episode depressed ([facility]) (primary encounter diagnosis) Comment: Risk Assessment: Acute risk for harm to self/others: Low Plan Verified patient medications and allergies; updated patient medical history in medical record. Provided report to Dr. Montana regarding patient concerns and status. Follow up as scheduled Upcoming appointments: Appointments for the next 13 months 03/22/2024 12:00 PM COUNSELING EXTENDED [place] VASQUEZ Whaley 60 min documented in this encounter [facility] Work Phone: 04-04-2024 Instructions Serene Higginbotham MD - 04/04/2024 1:19 PM EDT Images from the original note were not included. ANKLE SPRAIN What is it? Ankle sprains are some of the most common sports injuries. An ankle sprain is an injury to the ligaments (bands of tissue that connect bones) that help to keep the ankle stable. Causes: If there is a sudden twist or roll to the ankle, ligaments on the sides of the ankle can stretch or tear. Most ankle sprains occur when a sudden inward and downward movement of the foot stretches the ligaments on the outside of the ankle. Risk Factors: Patients involved in sports requiring quick changes in direction are at higher risk of developing ankle sprains. Cutting and pivoting patients, such as those involved in soccer, football, tennis, volleyball, and basketball are especially high risk. Patients who have had ankle sprains before are also at higher risk. Some patients who return too quickly to their sport after a sprain are more likely to re-injure their ankle. Symptoms: When the ankle twists, there may be a loud snap or crack and sudden pain. Swelling and bruising can develop very quickly. Depending on how severe the sprain is it may be difficult to walk. Treatment: A simple ankle sprain is generally treated with ice, anti-inflammatory medicine and support for the ankle with a wrap, ankle brace or walking boot. Crutches may be needed to avoid putting any weight through on injured area. Certain exercises to work on moving the joint, strengthening the ankle and rebuilding balance are a very important part of the treatment of ankle sprains. As the ankle feels better, exercises that mimic everyday activities (called functional exercises ) can be started and can help to prevent future problems with the ankle. ABCs: Towel grabs: Soft tissue injuries can take 8-10 weeks to heal and high grade sprains. High ankle sprains may take even longer. It will take some time to resume all previous activities without pain. However, additional rest will prevent re-injury and chronic ankle problems. Injury Prevention: A patient who has had an ankle sprain is more likely to injure it again, especially for about 6-12 months after the injury. However, there are several ways to protect against injuring the ankle. Supporting the ankle while playing sports by wearing an ankle brace or athletic tape is a good way to help protect it. Exercise training focusing on balance and good muscle control is also helpful. Return to Play: Patients return to play once they can do the functional exercises for their sport (like running, jumping, cutting) without pain during or after the workout. documented in this encounter [facility] 04-04-2024 History of Presen t illness Narrative Rosalva Huang is a patient of Maile Beaver MD. CHIEF COMPLAINT: Rosalva Huang is a 34 year old female who presents today for follow up. HISTORY OF PRESENT ILLNESS: PAIN EVALUATION 04/04/2024 0939 Pain Level: 6 Pain Location: Ankle-Left Description: Pressure Frequency: Continuous Intervention/Comfort measure: Medication;Reposition;Relaxation Comments: Pt is here for left ankle follow up. Swelling noted but has subsided some. She is taking Tylenol and Ibuprofen for pain control. Injury? Yes, 03/21/[address], heard a crack and had significant pain Not able to ambulate afterwards Went to ED same day, left without being seen but did get xrays Can't wear boot while driving so isn't wearing it Pain and swelling has improved, not limping today But still has pain along the lateral ankle and leg ALLERGIES: ALLERGIES Allergen Reactions Onion GI Upset Adhesive Tape (Rita* Rash, Itching Patient reports unable to tolerate band-aids after a procedure. She noted redness and itching at site of band aid. Mosquitos Swelling Phenergan [Prometha* GI Upset Sunscreen Rash Tingle tanning lotion Zyrtec [Cetirizine * Mental Status Change Made her very drowsy, PAST MEDICAL HISTORY: PAST MEDICAL HISTORY Diagnosis Date Endometriosis 10/26/2014 never had diagnostic lap to confirm, patient did not want surgery Gestational diabetes mellitus (GDM) affecting second 05/25/2022 Infertility, female Migraine without aura and without status migrainosus, not intractable 07/18/2019 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HCC) 08/27/2015 Panic disorder without agoraphobia PMH - PAST MEDICAL HISTORY OF color vision normal PMH - PAST MEDICAL HISTORY OF "vascular disease" 01/2002 PMH - PAST MEDICAL HISTORY OF wearing glasses and broke ankle at age 3, wrist fracture depression SOCIAL HISTORY: Tobacco Use: Never PHYSICAL EXAMINATION: Vitals: There were no vitals taken for this visit. Body Habitus:well nourished and no acute distress Orientation: Normal: Oriented to person, place and time Psych: normal and appropriate Sensation: sensation to light touch is grossly normal bilaterally Skin: Color, texture, turgor normal. No rashes or lesions Swelling: swelling noted of the lateral ankle, improved from previous Stance: Normal alignment Gait: Normal, the patient did not have trouble getting onto the exam table. FOOT & ANKLE EXAM Dorsiflexion: Limited ROM secondary tightness, improved from previous Plantar flexion: Limited ROM secondary tightness, improved from previous Inversion: Limited ROM secondary tightness, improved from previous Eversion: Limited ROM secondary tightness, improved from previous Talar Tilt Test: no ligamentous laxity noted bilaterally Anterior Drawer Test: no ligamentous laxity noted bilaterally Squeeze test:no tenderness IMAGING: AP weight-bearing, lateral weight-bearing, and mortise views of the Left ankle were performed today and viewed by me. The ankle mortise and talar dome are intact. Syndesmosis is normal. The subtalar joint is normal. No other soft tissue or bony abnormalities are noted. AP weight-bearing, lateral weight-bearing, and oblique views of the Left foot were performed today and viewed by me. The midfoot alignment is normal. The talar dome is normal. The subtalar joint is normal. No other soft tissue or bony abnormalities are noted. LABS: Hemoglobin A1C (POCT) (%) Date Value 06/03/2022 5.2 Creatinine Date Value Ref Range Status 02/11/2024 0.92 0.58 - 0.96 mg/dL Final 12/20/2022 0.91 0.58 - 0.96 mg/dL Final 04/24/2021 0.68 (L) 0.70 - 1.40 mg/dL Final 11/03/2020 0.53 (L) 0.58 - 0.96 mg/dL Final CLINICAL IMPRESSION / ASSESSMENT: (S93.402D) Sprain of left ankle, unspecified ligament, subsequent encounter (primary encounter diagnosis) RECOMMENDATION / PLAN: -Discussed with the patient the nature of ankle sprains. -Discussed xray imaging results with patient. -Discussed treatment modalities including RICE, WBAT, protection from repeat injury, PT/rehab. -Use lace-up ankle brace as needed. -RTP allowable when has full ROM, strength, proprioception vs contralateral side and can run & cut full speed. -Questions answered. -Written patient information provided in the AVS. -Follow up in 2 weeks to re-evaluate. -PT prescribed. Follow up: two weeks Films prior to visit: No additional imaging warranted. Pertinent previous records and images reviewed. Verbal health education was given to patient. Patient verbalizes understanding and agrees with the treatment plan as detailed above. Serene Higginbotham MD documented in this encounter [facility] 04-04-2024 History of Presen t illness Narrative Radiology Service Progress Note PATIENT NAME: Rosalva Huang DATE OF SERVICE: April 04, 2024 TIME: 12:57 PM PATIENT IDENTITY VERIFICATION COMPLETED USING TWO (2) IDENTIFIERS: Name and Date of confirmed by patient verbally. FALL SCREENING: Has the patient had 2 falls in the last year or 1 fall with injury or currently using an Ambulatory Assistive Device (Walker, Cane, Wheelchair, Crutches, etc.)? No PATIENT GENDER DATA: Female. status: : No status: NO. PATIENT RELEVANT IMPLANT DATA REVIEWED: Not Applicable PATIENT PRESENTS WITH AN IMPLANTABLE OR ATTACHED RECREATIONAL LEADER: No RADIOLOGY DEPARTMENT: General X-ray: Exam(s) Completed: Lower Extremity X-Ray(s): Ankle, Left and Wt. Bearing and Foot, Left and Wt. Bearing GRAVITY STRESS OBLIQUE ANKLE XRAY PERIPHERAL IV DATA: Not applicable SIGNED BY: RT Maycol(R) April 04, 2024 12:57 PM documented in this encounter [facility] 04-04-2024 History of Presen t illness Narrative Images from the original note were not included. Headache Center Follow-up Visit Current Preventive: botox Change needed for current preventive? No Current Abortive: nurtec- helping better overall Change needed for current abortive? No Miscellaneous Patient Concerns: Nurtec is effective, did well this last session Impression: Chronic migraine without aura, intractable, without status migrainosus (primary encounter diagnosis) Rosalva Huang has been previously approved for an Oral Calcitonin Gene-Related Peptide Receptor Antagonist (GEPANT) Rimegepant for the treatment of abortive use. The patient has demonstrated the following: Provider attests patient has had a positive clinical response: Yes Patient will not use with another Oral Calcitonin Gene-Related Peptide Receptor Antagonist (GEPANT): Yes Patient's quality of life and ability to perform ADLs has improved: Yes We suggest the patient continue treatment with GEPANT Rimegepant. The following preventative medications have been tried for three or more months without benefit: Anti-Convulsant Lamotrigine (Lamictal) Topiramate (Topamax, Trokendi XL, Qudexy) Anti-Depressant and Antipsychotic Quetiapine (Seroquel) Supplements CoQ10 Magnesium Riboflavin The following abortive medications have been tried but require high frequency use which can lead to Medication Overuse Headache: Analgesic Diclofenac (Voltaren, Cataflam, Cambia) Hydrocodone/Acetaminophen (Vicodin, [employer]) Anti-Anxiety Alprazolam (Xanax, Niravam) Diazepam (Valium) Anti-Migraine Rizatriptan (Maxalt) Sumatriptan (Imitrex, Sumavel) GEPANTS Rimegepant (Nurtec) Over the Counter Medications Acetaminophen (Tylenol) Ibuprofen (Advil, Motrin) Plan: - continue nurtec as needed - Botox today (see procedure note below) Follow-Up Onabotulinum Toxin A (BotoxTM) for Migraine Indication: Chronic Intractable Migraine Treatment #: 3 Referral Expiration: 06/10/2024 Prior to the initiation of the FIRST treatment with Onabotulinum Toxin A, the patient reported the following average headache frequency over the past 3 MONTHS: Number of moderate-severe migraine days/month: 25 Number of mild migraine days/month: 0 Number of headache free days/month: 5 (120 headache-free hours) After treatment with Onabotulinum Toxin A: Number of moderate-severe migraine days/month: 2 Number of mild migraine days/month: 0 Number of headache free days/month: 28 (672 headache-free hours) Patient reduction in overall migraine days: Yes Patient reduction in moderate-severe migraine days: Yes Patient reduction of headache hours by 100 hours or more: Yes (reduction of 552 hours) Individual has obtained clinical benefit deemed significant by individual or prescriber (Y/N): Yes Patient's quality of life and ability to perform ADLs has improved (Y/N): Yes Side effects: none Wearing off: No The patient has been assessed for disorders which could contribute to breathing or swallowing difficulty, and there is no contraindication with PREEMPT Botox. There is no documented allergic reaction/hypersensitivity to any botulinum toxin and there is no active infection at proposed injection site. HEADACHE SCORES: 12/03/2020 Headache Questions Initial improvement of headache after botox injection at last visit: Not applicable, I did not have a botox injection at my last visit PRN medication usage in the last month: 0 Patient impression of improvement since last visit: Not applicable, this is my first visit 12/03/2020 HIT-6 HIT-6 63 (Severe impact) 12/03/2020 NIKKIE - 2/7 SCORES NIKKIE-2 Score 1 12/03/2020 PHQ-9 Score 4 LMP (LMP Unknown) BP 113/67 Pulse 81 Ht 160 cm (5' 3") Wt 76.7 kg (169 lb) LMP (LMP Unknown) BMI 29.94 kg/m Patient name: Rosalva Huang : 1990 ALLERGIES Allergen Reactions Onion GI Upset Adhesive Tape (Rita* Rash, Itching Patient reports unable to tolerate band-aids after a procedure. She noted redness and itching at site of band aid. Mosquitos Swelling Phenergan [Prometha* GI Upset Sunscreen Rash Tingle tanning lotion Zyrtec [Cetirizine * Mental Status Change Made her very drowsy, UNIVERSAL PROTOCOL / SAFETY CHECKLIST Procedure: Onabotulinum toxin A for migraine Informed Consent Consent Obtained: Written [place] Protocol A moment to CARE was completed SIGN IN Personnel directly involved with the procedure wore the appropriate PPE Special Equipment: N/A Patient/Surrogate Stated/Verified: Patient name, Date of , Relevant allergies and Intended procedure TIME OUT Intended patient and procedure match the source document(s) Consent documented and matches the intended procedure No relevant labs, photos, and/or imaging studies were applicable for review. No correct side/site applicable for marking and visibility. Medications required for procedure verified. No fire risk assessment and interventions applicable. No implant(s) inserted. SIGN OUT No specimen collected. No instruments, equipment or retained foreign bodies applicable. Post-procedure follow-up management communicated and Plan of Care Visit completed when applicable Written Consent Obtained: Written LOT #: [id number] Expiration Date: Month: 6 Year: 2025 Injection Sites Left (Units) Left (Sites) Right (Units) Right (Sites) TOTAL (Units) Manager Mall 5 1 5 1 10 Procerus Units: 5 Sites: 1 5 Frontalis 10 2 10 2 20 Temporalis 20 4 20 4 40 Occipitalis 15 3 15 3 30 Cervical PSP 10 2 10 2 20 Trapezius 15 3 15 3 30 Total Units used: 155 Total Units wasted: 45 Prior Therapies Duration of Use Dose Side effect Other Therapies Nerve blocks Analgesic Diclofenac (Voltaren, Cataflam, Cambia) Hydrocodone/Acetaminophen (Vicodin, [employer]) Anti-Anxiety Alprazolam (Xanax, Niravam) Diazepam (Valium) Anti-Convulsant Lamotrigine (Lamictal) Topiramate (Topamax, Trokendi XL, Qudexy) Anti-Depressant and Antipsychotic Quetiapine (Seroquel) Antiemetics Ondansetron Promethazine Anti-Migraine Rizatriptan (Maxalt) Sumatriptan (Imitrex, Sumavel) GEPANTS Rimegepant (Nurtec) Supplements CoQ10 Magnesium Riboflavin Other Medications Dexamethasone (Decadron) Methylprednisolone (Medrol) Prednisone Over the Counter Medications Acetaminophen (Tylenol) Ibuprofen (Advil, Motrin) Jaja Moss APRN.CAGER OPERATOR Answers submitted by the patient for this visit: Headache Questionnaire (Submitted on 04/04/2024) How many days of work or school have you missed due to headaches in the last month? : 0 In the last month, how many headache days did you experience ALL of the following symptoms: decreased productivity, light sensitivity and nausea?: 2 How many days have you been completely free of headache pain in the last month? : 28 documented in this encounter [facility] 04-04-2024 Telephone encounter Note Botox referral sent to pharmacy Tamela Walden LPN April 04, 2024 7:39 AM [facility] 04-04-2024 Miscellaneous Notes Botox referral sent to pharmacy Tamela Walden LPN April 04, 2024 7:39 AM documented in this encounter [facility] 04-01-2024 History of Presen t illness Narrative Reason for Visit: Individual Counseling Video conference visit (Leia.). Patient identity confirmed via name and date of . Potential risks and benefits discussed with patient/guardian, who verbalized consent for telehealth encounter. Patient location: home. Problem: CL expressed feeling overwhelmed after breaking ankle/leg week prior and then having dog get hit by car and having a $5500 vet bill. CL expressed feelig "really unhappy" with body image and wanting to lose 15 pounds to improve self image. CL was late to appt and had to have appt shortened in length. F41.1 Generalized anxiety disorder (primary encounter diagnosis) Mental Status Exam: Within normal limits. Intervention: The following goals were addressed today: "I know it will never go away but I want to get better coping skills to manage" Next Care Plan Review Date: 05/15/2024 Provider addressed Rosalva's concerns related to the presenting problem above through the following therapeutic interventions: Active and reflective listening and Empathetic validation and support. Acute risk for harm to self/others: Low C-SSRS Screen Response/Impression: Rosalva demonstrated minimal improvement in session today as evidenced by asking for help from b/f after breaking leg and having to seek medical treatment but still feeling guilty about leaving kids and having to disrupt work schedule to go to hospital to address own physcial needs. Overall impression of treatment demonstrates no change as evidenced by treating physical symptoms but still feeling guilty and pre-contemplative about making changes in areas of life like asking for support from b/f and getting help with childcare since sustaining injury. BASIS-24 Clinical Severity - Most Recent Administration Date Administered: 07/15/2023 Domain Subscore & Severity Depression/Functioning 1.33 - Moderate Interpersonal Relationships 1.38 - Moderate Self-Harm 0 - Low Emotional Lability 1.5 - Moderate Psychosis 0 - Low Alcohol/Drug Use 0 - Low BASIS-24 Overall Score 1.07 - Moderate Reference: BASIS-24 Behavior and Symptom Identification Scale: Clinical Cut Scores. Jama Patel (2018). Plan: Rosalva's follow-up/homework: MYA is recommended to ask for support when needed and relax due to recent injuries and focus on healing process. Provider's follow-up/referrals/action items: N/A Next appointment with this provider: 04/08/24 documented in this encounter [facility] Work Phone: 03-22-2024 Nurse Note Patient received a tall boot in office today for the left foot. Boot fit in office. Care instructions given. Signature obtained. No further questions. [facility] Work Phone: 03-22-2024 Nurse Note Patient received a tall boot in office today for the left foot. Boot fit in office. Care instructions given. Signature obtained. No further questions. documented in this encounter [facility] 03-22-2024 Instructions Serene Higginbotham MD - 03/22/2024 11:23 AM EDT Images from the original note were not included. ANKLE SPRAIN What is it? Ankle sprains are some of the most common sports injuries. An ankle sprain is an injury to the ligaments (bands of tissue that connect bones) that help to keep the ankle stable. Causes: If there is a sudden twist or roll to the ankle, ligaments on the sides of the ankle can stretch or tear. Most ankle sprains occur when a sudden inward and downward movement of the foot stretches the ligaments on the outside of the ankle. Risk Factors: Patients involved in sports requiring quick changes in direction are at higher risk of developing ankle sprains. Cutting and pivoting patients, such as those involved in soccer, football, tennis, volleyball, and basketball are especially high risk. Patients who have had ankle sprains before are also at higher risk. Some patients who return too quickly to their sport after a sprain are more likely to re-injure their ankle. Symptoms: When the ankle twists, there may be a loud snap or crack and sudden pain. Swelling and bruising can develop very quickly. Depending on how severe the sprain is it may be difficult to walk. Treatment: A simple ankle sprain is generally treated with ice, anti-inflammatory medicine and support for the ankle with a wrap, ankle brace or walking boot. Crutches may be needed to avoid putting any weight through on injured area. Certain exercises to work on moving the joint, strengthening the ankle and rebuilding balance are a very important part of the treatment of ankle sprains. As the ankle feels better, exercises that mimic everyday activities (called functional exercises ) can be started and can help to prevent future problems with the ankle. ABCs: Towel grabs: Soft tissue injuries can take 8-10 weeks to heal and high grade sprains. High ankle sprains may take even longer. It will take some time to resume all previous activities without pain. However, additional rest will prevent re-injury and chronic ankle problems. Injury Prevention: A patient who has had an ankle sprain is more likely to injure it again, especially for about 6-12 months after the injury. However, there are several ways to protect against injuring the ankle. Supporting the ankle while playing sports by wearing an ankle brace or athletic tape is a good way to help protect it. Exercise training focusing on balance and good muscle control is also helpful. Return to Play: Patients return to play once they can do the functional exercises for their sport (like running, jumping, cutting) without pain during or after the workout. documented in this encounter [facility] 03-22-2024 History of Presen t illness Narrative Images from the original note were not included. Rosalva Huang is a patient of Maile Beaver MD. CHIEF COMPLAINT: Rosalva Huang is a 34 year old female who presents today for new evaluation. HISTORY OF PRESENT ILLNESS: PAIN EVALUATION 03/22/2024 1051 Pain Level: 7 Pain Location: Ankle-Left left lower leg Description: Crushing feels like someone is breaking my leg and ankle area" Duration Amount of Time: 2 Duration Units: Days Frequency: Continuous Intervention/Comfort measure: Medication;Reposition;Relaxation Comments: Pt is here for left lower leg and ankle pain. Pt reports she stepped down at the gas station off of a step and fell. She reports she went to [facility] ER and waited for 8 hours without treatment. Swelling noted to the left ankle today. Pt reports constant pain. She is taking ibuprofen for pain control. She does not have a brace at this time. Went to the ED 03/21/24 Injury? Yes, 03/21/[address], heard a crack and had significant pain Not able to ambulate afterwards Went to ED, left without being seen but did get xrays Feels very painful today Difficulty with ambulation Foot feels tingly Notes pain with ALLERGIES: ALLERGIES Allergen Reactions Onion GI Upset Adhesive Tape (Rita* Rash, Itching Patient reports unable to tolerate band-aids after a procedure. She noted redness and itching at site of band aid. Mosquitos Swelling Phenergan [Prometha* GI Upset Sunscreen Rash Tingle tanning lotion Zyrtec [Cetirizine * Mental Status Change Made her very drowsy, PAST MEDICAL HISTORY: PAST MEDICAL HISTORY Diagnosis Date Endometriosis 10/26/2014 never had diagnostic lap to confirm, patient did not want surgery Gestational diabetes mellitus (GDM) affecting second 05/25/2022 Infertility, female Migraine without aura and without status migrainosus, not intractable 07/18/2019 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HCC) 08/27/2015 Panic disorder without agoraphobia PMH - PAST MEDICAL HISTORY OF color vision normal PMH - PAST MEDICAL HISTORY OF "vascular disease" 01/2002 PMH - PAST MEDICAL HISTORY OF wearing glasses and broke ankle at age 3, wrist fracture depression SOCIAL HISTORY: Tobacco Use: Never PHYSICAL EXAMINATION: Body Habitus:well nourished and no acute distress Orientation: Normal: Oriented to person, place and time Psych: normal and appropriate Sensation: sensation to light touch is grossly normal bilaterally Skin: Color, texture, turgor normal. No rashes or lesions Swelling: swelling noted of the ankle joint, lateral > medial Stance: Normal alignment Gait: Antalgic to the left Dorsiflexion: Limited ROM secondary to pain Plantar flexion: Limited ROM secondary to pain Inversion: Limited ROM secondary to pain Eversion: Limited ROM secondary to pain Talar Tilt Test: no ligamentous laxity noted bilaterally Anterior Drawer Test: no ligamentous laxity noted bilaterally Calcaneal squeeze:no tenderness Achilles gutter: no swelling noted Achilles tendon: no pain elicited on examination today Metatarsal palpation: mild pain when examined There is no warmth, erythema, swelling or pain noted on examination of the bilateral calf areas. IMAGING: Final results and radiologist's interpretation, available in the [facility] health record. Images were reviewed with the patient/family members in the office today. My personal interpretation of the performed imaging: Obtained 03/21/24 in ED. No acute abnormality of ankle or tibia/fibula. LABS: Hemoglobin A1C (POCT) (%) Date Value 06/03/2022 5.2 Creatinine Date Value Ref Range Status 02/11/2024 0.92 0.58 - 0.96 mg/dL Final 12/20/2022 0.91 0.58 - 0.96 mg/dL Final 04/24/2021 0.68 (L) 0.70 - 1.40 mg/dL Final 11/03/2020 0.53 (L) 0.58 - 0.96 mg/dL Final CLINICAL IMPRESSION / ASSESSMENT: No diagnosis found. RECOMMENDATION / PLAN: -Discussed with the patient the nature of ankle sprains. Malleolus tenderness. Will repeat xrays in 10 days to r/o occult fracture. -Discussed xray imaging results with patient. -Discussed treatment modalities including RICE, WBAT, protection from repeat injury, PT/rehab. -Provided boot. Use crutches if pain with weight bearing in boot. -Start gentle ROM, instruction in AVS. -Questions answered. -Written patient information provided in the AVS. -Follow up in 10 days to re-evaluate. Imaging at next visit: repeat xrays of ankle and foot, AP/LAT, weight bearing w/ gravity stress view of ankle. Verbal health education was given to patient. Patient verbalizes understanding and agrees with the treatment plan as detailed above. Serene Higginbotham MD documented in this encounter [facility] 03-16-2024 History of Presen t illness Narrative Missed scheduled video appt today. Text link sent. No answer for phone call. My Chart message sent to client. documented in this encounter [facility] Work Phone: 03-11-2024 History of Presen t illness Narrative Telephone visit. Patient identity confirmed via name and date of . Potential risks and benefits discussed with patient/guardian, who verbalized consent for telehealth encounter. Reason for Telephone: Technology/connectivity failure during appointment . Patient location: home. Registered Nurse Visit 03/11/2024 11:00 AM Reason For Visit Health maintenance ("care gap") screening, assessment, education, and referral. Interval History and Patient Concerns Rosalva reports things have been stressful since her son had a 2 week hospitalization including surgery. 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 Anxiety is high. Reports just recently the intrusive negative thoughts of bad things happening have increased Unsure if it is related to higher stress and anxiety. Denies thoughts of self harm or harming others. Denies hallucinations or delusional thoughts. She has not been sleeping well since both kids are currently sick and not sleeping well either. 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 Reports she does better staying busy and a job outside the home 2 days a week would be good. Reports her aunt will watch kids in order for her to work. Mood is stable. Medication Adherence Good Side Effects Reported No New Medical Problems or History denies Vitals Taken? No COWS Completed? No AIMS Completed? No Nursing Specialty Psychiatry Patient has Narcan? No Reported Mood Euthymic Reported Sleep broken while kids are sick Reported Appetite ok Hallucinations or Delusions None Reported General Alert;Cooperative Behavior Cooperative;Relaxed and engaged Insight Appropriate Judgment Appropriate ? Title X Services Was a Title X service provided? No. Assessment and Plan Risk Assessment Acute risk for harm to self/others: Low 1. Bipolar disorder, in partial remission, most recent episode depressed ([facility]) (Primary) Care Planning Additional Plan: Patient education provided this visit: symptoms, coping, medication, side effects Routed encounter note to Dr. [place] Client to picking crew supervisor ativan today Monitor intrusive thoughts and correlation with anxiety Recheck 03/16 Reach out sooner if needed Reviewed upcoming appointments: Appointments for the next 13 months 03/16/2024 11:00 AM NURSE VISIT [place] Tessa Dill RN 20 min 03/21/2024 1:20 PM MEDICATION MANAGEMENT [place] Tessa Dill RN 20 min 03/21/2024 1:40 PM MEDICATION MANAGEMENT [facility] Herberth Montana DO 40 min 03/22/2024 12:00 PM COUNSELING EXTENDED [place] VASQUEZ Whaley 60 min documented in this encounter [facility] Work Phone: 03-08-2024 History of Presen t illness Narrative Reason for visit: Individual Counseling Video conference visit (Leia.). Patient identity confirmed via name and date of . Potential risks and benefits discussed with patient/guardian, who verbalized consent for telehealth encounter. Patient location: home. Subjective CL expressed feeling good to be home and feeling hopeful after having son's surgery. CL expressed things were very difficult at first after coming home from hospital and having to take care of physical needs and recovery. CL reports starting new dietary regime and wanting incorporate whole family into new routine. Objective Cl was engaged and alert. Mental Status Exam: Appearance: appropriate Behavior: generally relaxed and engaged, cooperative Speech: unremarkable Mood: neutral Affect: appropriate for circumstance Thought content: unremarkable Perception: unremarkable Insight: appropriate Judgment: appropriate Assessment TH asked CL about current responsibiliities for care with son and outlook for recovery to gain better insight for current stressors. TH validated cL feelings ad provided support through reflective listening. TH and CL explored parenting style and feeling comfortable about making boundaires with children. TH educated CL about healthy boundaries and creating healthy attachments. TH asked CL to reframe thinking about dogs and instead of feeling guilty about wanting to re-home dogs focus on positives of dogs having a more appropriate home to thrive in, TH monitored CL feelings and attachments within session. The following goals were addressed today: "I know it will never go away but I want to get better coping skills to manage" Next Care Plan Review Date: 05/15/2024 F41.1 Generalized anxiety disorder (primary encounter diagnosis) Functional Status: Minimal Improvement Therapeutic Intervention(s) Applied: Reflective listening and reassurance Acute risk for harm to self/others: Low C-SSRS Plan Cl was encouraged to have incorporate self care and coping skills when needed. Next appointment with this provider: 03/22/2024 BASIS-24 Clinical Severity - Most Recent Administration Date Administered: 07/15/2023 Domain Subscore & Severity Depression/Functioning 1.33 - Moderate Interpersonal Relationships 1.38 - Moderate Self-Harm 0 - Low Emotional Lability 1.5 - Moderate Psychosis 0 - Low Alcohol/Drug Use 0 - Low BASIS-24 Overall Score 1.07 - Moderate Reference: BASIS-24 Behavior and Symptom Identification Scale: Clinical Cut Scores. Jama Patel (2018). documented in this encounter [facility] Work Phone: 02-22-2024 History of Presen t illness Narrative Associated Problem(s): Generalized anxiety disorder Anxiety has worsened with severe panic attacks. Is hesitant to try SSRI/SNRI given h/o mood cycling and perceived manic induction on buspar, so will hold off on this for now and revisit at next appt. Add ativan 0.25-0.5 mg po daily prn for panic attacks. Reassess symptoms via RN visit in 2 wks. Associated Problem(s): Bipolar disorder, in partial remission, most recent episode depressed ([facility]) Mood has been stable. Continue lamotrigine and Risperdal at current doses. Subjective Video conference visit ([email or web address]). Patient identity confirmed via name and date of . Potential risks and benefits discussed with patient/guardian, who verbalized consent for telehealth encounter. Patient location: home. Chief Complaint: Psychiatric Med Management HPI 02/22/24: Pt reports anxiety has been pretty high. Son is very ill, has been in hospital for past 7 days. They cannot get iv access in him d/t extensive venous scarring, so they are considering putting in a central line. She has been at the hospital night and day and not getting consistent sleep. Has had several panic attacks where she feels like she is going to pass out/faint. They typically come on suddenly and do not last longer than an hour. She does not want anything to make her too sedated but is interested today for a short-term option since she thinks most of her panic attacks are related to Alexandre's health issues. [place] the buspar made her manic and that is why she stopped taking it, so she remains apprehensive about trying an SSRI/SNRI at this time but agreeable to short-term tx with anxiolytic and then if baseline anxiety level remains elevated and/or panic symptoms worsen or do not improve, will revisit. With respect to mood, she denies depressive/manic/hypomanic symptoms. Recent increase in risperdal has resulted in best mood stability she has had in awhile. Tolerating lamotrigine as well. Denies psychotic symptoms, denies SI/HI. 11/30/23: pt reports she had been feeling pretty depressed recently with more severe symptoms that lasted about 3 days. During that time, she experienced some SI but no intent/ plan. Has been super busy and overwhelmed and sleep-deprived without any support form her aunt. 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 She reports mood has been much better and closer to baseline for past few days. She is in a bipolar mom support group. She finds it to be helpful to have their support. She notes that being a mom is what helps her get through the tough times. Denies any thoughts of harming self/kids currently. She denies any intrusive thoughts recently. Says she and counselor are going to meet more frequently in the near future. She reports coping with stressors has been a struggle. 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 Denies manic or mixed mood symptoms. Denies AVH. She is sleeping well at night. Denies SI/HI. Interim substance use history: Social History Substance and Sexual Activity Drug Use Not Currently Types: Opioids, Marijuana Comment: When she was 17 she had a problem with marijuana and prescription drug abuse (snorted Xanax and abused pain pills) and she got in trouble at 17 and at 18 she stopped History Smoking Status Never Smokeless Tobacco Never Social History Substance and Sexual Activity Alcohol Use Not Currently Comment: has not drank since she was 18 Meds: Outpatient Medications Prior to Visit Medication Sig Dispense Refill lamoTRIgine (LAMICTAL) 200 mg tablet Take 1 Tablet by mouth once daily 30 Tablet 0 risperiDONE (RISPERDAL) 0.5 mg tablet Take 1 Tablet by mouth nightly at bedtime With 2 mg for total 2.5 mg dosage 30 Tablet 0 risperiDONE (RISPERDAL) 2 mg tablet Take 1 Tablet by mouth nightly at bedtime 30 Tablet 0 ibuprofen 800 mg tablet Take 800 mg by mouth every 8 (eight) hours as needed methylcellulose, laxative, (CITRUCEL) 500 mg tab tab Take 1,000 mg by mouth every 8 (eight) hours as needed omeprazole (PRILOSEC) [address] capsule Take 20 mg by mouth once daily amoxicillin (AMOXIL) 875 mg tablet TAKE 1 TABLET BY MOUTH TWICE DAILY FOR 7 DAYS rimegepant (NURTEC ODT) 75 mg TbDi Take 75 mg by mouth ibuprofen 600 mg tablet Take 600 mg by mouth every 6 (six) hours as needed for pain penicillin V potassium (VEETID) 250 mg tablet Take 500 mg by mouth 4 (four) times daily acetaminophen (TYLENOL) 500 mg tablet ONETOUCH VERIO TEST STRIPS strips No facility-administered medications prior to visit. Objective 05/07/2021 11:05 AM Height 5' 2" (157.5 cm) Mental Status Exam Appearance is appropriate for circumstance and neat. as able to visualize on videoconference General Health is generally good. as able to visualize on videoconference Eye Contact is good. as able to visualize on video Motor Activity is unremarkable. as able to visualize on video Speech is unremarkable. Affect is full range and mood-congruent. Reported Mood is neutral/euthymic. Thought Content is unremarkable does not have suicidal ideations, does not have homicidal ideations and does not have delusions. Thought Process is unremarkable. Perception is unremarkable does not have hallucinations. Attention is alert. Demeanor is appropriate for situation. Insight is appropriate. Judgement is appropriate. Orientation is fully oriented. Memory is grossly intact. MSE Comments: Videoconferencing limited full visualization of facial expressions. Unable to assess gait as pt was seated for session. Data Reviewed (labs, BASIS-24, AIMS, outside records, etc): Lab Results Component Value Date HGBA1C 5.2 06/03/2022 BASIS-24 Clinical Severity - Most Recent Administration Date Administered: 07/15/2023 Domain Subscore & Severity Depression/Functioning 1.33 - Moderate Interpersonal Relationships 1.38 - Moderate Self-Harm 0 - Low Emotional Lability 1.5 - Moderate Psychosis 0 - Low Alcohol/Drug Use 0 - Low BASIS-24 Overall Score 1.07 - Moderate Reference: BASIS-24 Behavior and Symptom Identification Scale: Clinical Cut Scores. Jama Patel (2018). Last Menstrual Period: Assessment Safety Risk Assessment: Acute risk for harm to self/others: Low Chronic risk for harm to self/others: Moderate Plan Risks, benefits, and alternatives were discussed. Patient/guardian understood and agreed with the plan. Reviewed Safety Plan: Call 911 or go to ED if in crisis. Advised of availability of after hours RN by calling main number for [facility]. 1. Bipolar disorder, in partial remission, most recent episode depressed [facility] (Primary) Assessment & Plan: Mood has been stable. Continue lamotrigine and Risperdal at current doses. Orders: - RN NURSING PER 15 MIN - REFERRAL TO CLINICAL PHARMACY 2. Bipolar disorder in partial remission, most recent episode unspecified type ([facility]) - lamoTRIgine (LAMICTAL) 200 mg tablet; Take 1 Tablet by mouth once daily, Disp-30 Tablet, R-0 e-Prescribing, Long-term Dispense: 30 Tablet; Refill: 0 - risperiDONE (RISPERDAL) 0.5 mg tablet; Take 1 Tablet by mouth nightly at bedtime With 2 mg for total 2.5 mg dosage, Disp-30 Tablet, R-0 e-Prescribing, Long-term Dispense: 30 Tablet; Refill: 0 - risperiDONE (RISPERDAL) 2 mg tablet; Take 1 Tablet by mouth nightly at bedtime, Disp-30 Tablet, R-0 e-Prescribing, Long-term Dispense: 30 Tablet; Refill: 0 3. Generalized anxiety disorder Assessment & Plan: Anxiety has worsened with severe panic attacks. Is hesitant to try SSRI/SNRI given h/o mood cycling and perceived manic induction on buspar, so will hold off on this for now and revisit at next appt. Add ativan 0.25-0.5 mg po daily prn for panic attacks. Reassess symptoms via RN visit in 2 wks. Orders: - LORazepam (ATIVAN) 0.5 mg tablet; Take 1 Tablet by mouth once daily as needed for anxiety, Disp-30 Tablet, R-0 e-Prescribing Dispense: 30 Tablet; Refill: 0 Follow-up: No follow-ups on file. Upcoming Appointments: Appointments for the next 13 months 02/23/2024 11:00 AM COUNSELING EXTENDED [facility] VASQUEZ Whaley 60 min 03/11/2024 10:20 AM NURSE VISIT SHORT [facility] Tessa Dill RN 20 min 03/18/2024 12:00 PM COUNSELING EXTENDED [facility] VASQUEZ Whaley 60 min 03/21/2024 1:20 PM MEDICATION MANAGEMENT [facility] [id number] NURSE RUBÉN 20 min 03/21/2024 1:40 PM MEDICATION MANAGEMENT [facility] Herberth Montana DO 40 min 03/22/2024 12:00 PM COUNSELING EXTENDED [facility] VASQUEZ Whaley 60 min Reason for visit: Psychiatric Med Management Rosalva presents via video Subjective Interval history and patient concerns: Reports her mood has been good. No manic episodes. Denies depression. Anxiety related to son being in hospital. Some panic attacks. Sleep is hard because she is staying in hospital with her son. Appetite is ok. Denies thoughts of self harm or harming others. Intrusive thoughts are a lot better. Denies hallucinations or delusional thoughts. Current Outpatient Medications Medication Instructions acetaminophen (TYLENOL) 500 mg tablet No dose, route, or frequency recorded. amoxicillin (AMOXIL) 875 mg tablet TAKE 1 TABLET BY MOUTH TWICE DAILY FOR 7 DAYS CitruceL 1,000 mg, oral, Every 8 hours PRN ibuprofen 600 mg, oral, Every 6 hours PRN, for pain ibuprofen 800 mg, oral, Every 8 hours PRN lamoTRIgine (LAMICTAL) 200 mg, oral, Daily Nurtec ODT 75 mg, oral omeprazole (PRILOSEC) 20 mg, oral, Daily ONETOUCH VERIO TEST STRIPS strips No dose, route, or frequency recorded. penicillin V (VEETID) 500 mg, oral, 4 times daily risperiDONE (RISPERDAL) 0.5 mg, oral, NIGHTLY, With 2 mg for total 2.5 mg dosage risperiDONE (RISPERDAL) 2 mg, oral, NIGHTLY Reported medication adherence: yes Reported medication side effects: drowsiness New medical problems or history: denies Objective Vitals not currently . Mental Status Exam: Behavior: generally relaxed and engaged, cooperative Speech: unremarkable Mood: neutral Affect: appropriate for circumstance Thought content: unremarkable Perception: unremarkable Additional objective data: ? Assessment Provider diagnosis and treatment plan reviewed. F31.75 Bipolar disorder, in partial remission, most recent episode depressed ([facility]) (primary encounter diagnosis) Comment: Risk Assessment: Acute risk for harm to self/others: Low Plan Verified patient medications and allergies; updated patient medical history in medical record. Provided report to Dr. Montana regarding patient concerns and status. Follow up as scheduled. Upcoming appointments: Appointments for the next 13 months 02/22/2024 1:20 PM MEDICATION MANAGEMENT [facility] Herberth Montana DO 20 min 02/23/2024 11:00 AM COUNSELING EXTENDED [facility] RAFI WhaleyW 60 min 03/18/2024 12:00 PM COUNSELING EXTENDED [facility] Angela Dinh TRUST CLERK 60 min 03/22/2024 12:00 PM COUNSELING EXTENDED [facility] Angela Dinh TRUST CLERK 60 min documented in this encounter [employer] Phone: 02-17-2024 Miscellaneous Notes Prior authorization has been submitted via CoverMeds. Included clinical notes from 01/06/24. Medication: Nurtec (rimegepant) Dosage/frequency: 75 MG Insurance Name: [employer] Guido (if available): [id number] Was authorization approved, denied, or still pending? PENDING If approved, effective dates: n/a documented in this encounter [facility] 02-16-2024 History of Presen t illness Narrative Reason for visit: Individual Counseling Video conference visit (Leia.). Patient identity confirmed via name and date of . Potential risks and benefits discussed with patient/guardian, who verbalized consent for telehealth encounter. Patient location: other: CL was at [facility] . Subjective CL expressed feeling significant anxiety and was in hospital with young son during time of appt. CL stated son had high fever and another kidney infection and will be admitted for a minimum of 14 days, CL expressed feeling guilty about being away from toddler daughter for long period of time, Objective CL was engaged and alert. CL presented calm even though self reports of having high anxiety. TH had limited session due to being in hospital with son and confidentiality. Mental Status Exam: Appearance: appropriate Behavior: generally relaxed and engaged, cooperative Speech: unremarkable Mood: neutral Affect: appropriate for circumstance Thought content: unremarkable Perception: unremarkable Insight: appropriate Judgment: appropriate Assessment TH validated and provided support through empathetic listening.,TH asked client to use reframing and recognize that it was not choice to be in hospital for 14 days to help reduce guilt associated with not being bale to see daughter. TH explored using facetime and having daughter come to hospital to visit. TH reminded myaietn of importance of taking care of self by eating and sleeping when available to reduce controllable stressors. The following goals were addressed today: I will identify and balance thoughts that trigger my anxiety (see measurable component below): Next Care Plan Review Date: 05/15/2024 F41.1 Generalized anxiety disorder (primary encounter diagnosis) Functional Status: Deterioration (comment): CL reports having increase in anxiety since son being admitting to hospital Therapeutic Intervention(s) Applied: Symptom management, skill building and Reflective listening and reassurance Acute risk for harm to self/others: Low C-SSRS Plan CL will use reframing and positive self talk when negative thinking is present. Next appointment with this provider: 02/23/2024 BASIS-24 Clinical Severity - Most Recent Administration Date Administered: 07/15/2023 Domain Subscore & Severity Depression/Functioning 1.33 - Moderate Interpersonal Relationships 1.38 - Moderate Self-Harm 0 - Low Emotional Lability 1.5 - Moderate Psychosis 0 - Low Alcohol/Drug Use 0 - Low BASIS-24 Overall Score 1.07 - Moderate Reference: BASIS-24 Behavior and Symptom Identification Scale: Clinical Cut Scores. Jama Patel (2018). documented in this encounter [facility] Work Phone: 02-08-2024 History of Presen t illness Narrative Rosalva Huang is a patient of Maile Beaver MD. CHIEF COMPLAINT: Rosalva Huang is a 34 year old female who presents today for follow up of 5TH METACARPAL FRACTURE. HISTORY OF PRESENT ILLNESS: PAIN EVALUATION 02/08/2024 1336 Pain Level: 4 Pain Location: Hand-Left Description: Shooting Duration Amount of Time: 5 Duration Units: Weeks Frequency: Intermittent Interval history: Rosalva Huang is a sxcto-slzh-ctdphkuk 33-year-old jzxr-fu-yvnu mother who comes in for an injury that occurred on 12/28/2023. The patient states that she fell down the stairs. She was seen at urgent care where x-rays show a nondisplaced fifth metacarpal fracture. At her last visit the patient was placed in a ulnar gutter Exos. She is here for follow-up. REVIEW OF SYMPTOMS: Constitutional: Fever/chills: No Cardiovascular: Chest Pain: No Musculoskeletal: as noted in the HPI Neurologic: as noted in the HPI SOCIAL HISTORY: Tobacco user? No PHYSICAL EXAMINATION: Vitals: There were no vitals taken for this visit. Body Habitus:well nourished and no acute distress Orientation: Normal: Oriented to person, place and time Psych: normal Skin: Color, texture, turgor normal. No rashes or lesions Sensation: sensation to light touch is grossly normal bilaterally Specific MSK Exam Patient is able to make a full fist. She has no pain on palpation over the fracture. There is no swelling or bruising present. She is able pronate and supinate without pain. Skin is intact. Pulses are strong and capillary refill is less than 2 seconds. IMAGING: Final results and radiologist's interpretation, available in the [facility] health record. Images were reviewed with the patient/family members in the office today. My personal interpretation of the performed imaging is healing 5th metacarpal fracture CLINICAL IMPRESSION / ASSESSMENT: (X24.090D) Closed nondisplaced fracture of shaft of fifth metacarpal bone of left hand with routine healing, subsequent encounter (primary encounter diagnosis) PLAN: I would like the patient to continue in the brace for at least 1 more week. After that she may begin to return to her normal activities as tolerated. She will follow-up as needed. Gabriela Andrade PA-C This document has been created with the use of voice recognition technology. It may contain inaccuracies: misspellings, inaccurate syntax or word sense that escaped review. documented in this encounter [facility] 02-08-2024 History of Presen t illness Narrative Radiology Service Progress Note PATIENT NAME: Rosalva Huang DATE OF SERVICE: February 08, 2024 TIME: 12:56 PM PATIENT IDENTITY VERIFICATION COMPLETED USING TWO (2) IDENTIFIERS: Name and Date of confirmed by patient verbally. FALL SCREENING: Has the patient had 2 falls in the last year or 1 fall with injury or currently using an Ambulatory Assistive Device (Walker, Cane, Wheelchair, Crutches, etc.)? No PATIENT GENDER DATA: Female. status: : No status: NO. PATIENT RELEVANT IMPLANT DATA REVIEWED: Not Applicable PATIENT PRESENTS WITH AN IMPLANTABLE OR ATTACHED RECREATIONAL LEADER: No RADIOLOGY DEPARTMENT: General X-ray: Exam(s) Completed: Upper Extremity X-Ray(s): Hand, left PERIPHERAL IV DATA: Not applicable SIGNED BY: RT Savana(R) February 08, 2024 12:56 PM documented in this encounter [facility] 02-05-2024 History of Presen t illness Narrative Reason for visit: No chief complaint on file. Video conference visit ([email or web address]). Patient identity confirmed via name and date of . Potential risks and benefits discussed with patient/guardian, who verbalized consent for telehealth encounter. Patient location: home. Subjective CL expressed feeling frustrated with dogs and being able to keep house clean due to weather. CL stated, "I feel like my kids control my life and I can't do anything". CL reports kids throw temper tantrums all the time and feeling overwhelmed about children's behaviors. CL reports feeling exhausted and having no energy.CL expressed not wanting to discuss feelings with friends due to after feeling worse about future outlook for parenting. CL stated still having to wear brace on hand due to not healing properly due to continued use and possibly having to have surgery if not corrected naturally. Objective CL was engaged and orientated. CL mood shifted from flat to more positive by end of session evidenced through laughter and feeling hopeful about parental outlook. Mental Status Exam: Appearance: appropriate Behavior: cooperative, irritable Speech: unremarkable Mood: nervous, anxious Affect: appropriate for circumstance Thought content: depressive cognitions Perception: unremarkable Insight: appropriate Judgment: appropriate Assessment TH validated CL feelings and provided support. TH asked open ended questions about use of coping skills and being able to make realistic goals using mini goals that are acheiveable. TH asked client to list daily tasks and develop a routine that is attainable to help promote motivation. TH encouraged CL to follow dr orders for hand and ask for support from children's father to reduce risk of long term care phlebotomist injury. The following goals were addressed today: "I know it will never go away but I want to get better coping skills to manage" and I will learn and use 1-3 skills to manage thoughts, feelings, and urges brought on by encounters with trauma-related situations. Next Care Plan Review Date: 05/15/2024 F31.75 Bipolar disorder, in partial remission, most recent episode depressed ([facility]) (primary encounter diagnosis) F41.1 Generalized anxiety disorder Functional Status: No Change Therapeutic Intervention(s) Applied: Symptom management, skill building, Assist in problem solving, Enhancing coping skills, and Reflective listening and reassurance Acute risk for harm to self/others: Low C-SSRS Plan CL will improve coping skills by taking time daily or using one night per week for self to help manage symptoms. Next appointment with this provider: 02/16/24 BASIS-24 Clinical Severity - Most Recent Administration Date Administered: 07/15/2023 Domain Subscore & Severity Depression/Functioning 1.33 - Moderate Interpersonal Relationships 1.38 - Moderate Self-Harm 0 - Low Emotional Lability 1.5 - Moderate Psychosis 0 - Low Alcohol/Drug Use 0 - Low BASIS-24 Overall Score 1.07 - Moderate Reference: BASIS-24 Behavior and Symptom Identification Scale: Clinical Cut Scores. Jama Patel (2018). documented in this encounter [facility] Work Phone: 01-31-2024 Miscellaneous Notes Opened in error documented in this encounter [facility] 01-29-2024 History of Presen t illness Narrative Telephone visit. Patient identity confirmed via name and date of . Potential risks and benefits discussed with patient/guardian, who verbalized consent for telehealth encounter. Reason for Telephone: Technology/connectivity failure during appointment . Patient location: home. Registered Nurse Visit 01/29/2024 9:00 AM Reason For Visit Health maintenance ("care gap") screening, assessment, education, and referral. Interval History and Patient Concerns Rosalva reports that since she increased Risperdal to 2.5mg, her abigail is gone away, she feels much more stable, she is able to handle stress better. Her rage has decreased. She is able to ignore/move past the intrusive thoughts without reacting to them. She takes 2mg Risperdal at night and 0.5mg during the day. Reports some drowsiness with the increase in dose. Sleeping all night from about 9pm until 6. Son Alexandre continues with ongoing kidney issues, will have surgery March 29. Medication Adherence Good Side Effects Reported Yes Yes (Comment) drowsiness New Medical Problems or History denies Vitals Taken? No COWS Completed? No AIMS Completed? No Nursing Specialty Psychiatry Patient has Narcan? No Reported Mood Euthymic Reported Sleep good Reported Appetite good Hallucinations or Delusions None Reported General Alert;Cooperative Behavior Cooperative;Relaxed and engaged Insight Appropriate Judgment Appropriate ? Title X Services Was a Title X service provided? No. Assessment and Plan Risk Assessment Acute risk for harm to self/others: Moderate 1. Bipolar disorder, in partial remission, most recent episode depressed ([facility]) (Primary) Overview: Has responded well to risperdal and lamotrigine, with some intermittent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 Marijuana Comment: When she was 17 she had a problem with marijuana and prescription drug abuse (snorted Xanax and abused pain pills) and she got in trouble at 17 and at 18 she stopped History Smoking Status Never Smokeless Tobacco Never Social History Substance and Sexual Activity Alcohol Use Not Currently Comment: has not drank since she was 18 Meds: Outpatient Medications Prior to Visit Medication Sig Dispense Refill lamoTRIgine (LAMICTAL) 200 mg tablet Take 1 Tablet by mouth once daily 30 Tablet 1 risperiDONE (RISPERDAL) 2 mg tablet Take 1 Tablet by mouth nightly at bedtime 30 Tablet 1 busPIRone (BUSPAR) 10 mg tablet Take 1 Tablet by mouth 2 (two) times daily (Patient not taking: Reported on 09/04/2023) 60 Tablet 1 methylcellulose, laxative, (CITRUCEL) 500 mg tab tab Take 1,000 mg by mouth every 8 (eight) hours as needed omeprazole (PRILOSEC) [address] capsule Take 20 mg by mouth once daily amoxicillin (AMOXIL) 875 mg tablet TAKE 1 TABLET BY MOUTH TWICE DAILY FOR 7 DAYS rimegepant (NURTEC ODT) 75 mg TbDi Take 75 mg by mouth ibuprofen 600 mg tablet Take 600 mg by mouth every 6 (six) hours as needed for pain penicillin V potassium (VEETID) 250 mg tablet Take 500 mg by mouth 4 (four) times daily acetaminophen (TYLENOL) 500 mg tablet ONETOUCH VERIO TEST STRIPS strips No facility-administered medications prior to visit. Objective 05/07/2021 11:05 AM Height 5' 2" (157.5 cm) Mental Status Exam Appearance is appropriate for circumstance and neat. as able to visualize on videoconference General Health is generally good. as able to visualize on videoconference Eye Contact is good. as able to visualize on video Motor Activity is unremarkable. as able to visualize on video Speech is unremarkable. Affect is full range and mood-congruent. Reported Mood is neutral/euthymic. Thought Content is unremarkable does not have suicidal ideations, does not have homicidal ideations and does not have delusions. Thought Process is unremarkable. Perception is unremarkable does not have hallucinations. Attention is alert. Demeanor is appropriate for situation. Insight is appropriate. Judgement is appropriate. Orientation is fully oriented. Memory is grossly intact. MSE Comments: Videoconferencing limited full visualization of facial expressions. Unable to assess gait as pt was seated for session. Data Reviewed (labs, BASIS-24, AIMS, outside records, etc): Lab Results Component Value Date HGBA1C 5.2 06/03/2022 BASIS-24 Clinical Severity - Most Recent Administration Date Administered: 07/15/2023 Domain Subscore & Severity Depression/Functioning 1.33 - Moderate Interpersonal Relationships 1.38 - Moderate Self-Harm 0 - Low Emotional Lability 1.5 - Moderate Psychosis 0 - Low Alcohol/Drug Use 0 - Low BASIS-24 Overall Score 1.07 - Moderate Reference: BASIS-24 Behavior and Symptom Identification Scale: Clinical Cut Scores. Jama Patel (2018). Last Menstrual Period: Assessment Safety Risk Assessment: Acute risk for harm to self/others: Low Chronic risk for harm to self/others: Moderate Plan Risks, benefits, and alternatives were discussed. Patient/guardian understood and agreed with the plan. Reviewed Safety Plan: Call 911 or go to ED if in crisis. Advised of availability of after hours RN by calling main number for [facility]. 1. Bipolar disorder in partial remission, most recent episode unspecified type ([facility]) (Primary) - lamoTRIgine (LAMICTAL) 200 mg tablet; Take 1 Tablet by mouth once daily, Disp-30 Tablet, R-1 e-Prescribing, Long-term Dispense: 30 Tablet; Refill: 1 - risperiDONE (RISPERDAL) 2 mg tablet; Take 1 Tablet by mouth nightly at bedtime, Disp-30 Tablet, R-1 e-Prescribing, Long-term Dispense: 30 Tablet; Refill: 1 2. Generalized anxiety disorder Assessment & Plan: Pt stopped taking buspirone d/t side effects, so will not renew this medication today. Consider addition of SSRI for both NIKKIE and OCD symptoms should they worsen/not improve. 3. Mixed obsessional thoughts and acts Assessment & Plan: Intrusive thoughts have improved with Risperdal. Consider addition of SSRI (would need to monitor for si/sx of increased mood cycling and/or manic switch. 4. Bipolar disorder, in partial remission, most recent episode depressed ([facility]) Overview: Has responded well to risperdal and lamotrigine, with some intermittent cycling between mild depressive/euthymic and hypomanic states. Assessment & Plan: Depressive symptoms were present for a few days but have since improved. Pt will be seenby RN between appts with this provider to monitor mood cycling. Continue current medications. Follow-up: No follow-ups on file. Upcoming Appointments: Appointments for the next 13 months 12/17/2023 12:00 PM COUNSELING EXTENDED [facility] Whaley 60 min 12/24/2023 12:00 PM COUNSELING EXTENDED [facility] Whaley 60 min 01/01/2024 8:40 AM NURSE VISIT SHORT [facility] Tessa Dill RN 20 min 01/25/2024 1:20 PM MEDICATION MANAGEMENT [facility] [id number] BW NURSE RUBÉN 20 min 01/25/2024 1:40 PM MEDICATION MANAGEMENT [facility] Herberth Montana DO 40 min documented in this encounter [facility] Work Phone: 11-13-2023 History of Presen t illness Narrative Reason for visit: Individual Counseling Video conference visit (Leia.). Patient identity confirmed via name and date of . Potential risks and benefits discussed with patient/guardian, who verbalized consent for telehealth encounter. Patient location: home. Subjective CL expressed having a lot going on and having to take son to ER again. CL reported daughter falling down and cracking two front teeth. CL informed of re-engaging with mother but not feeling comfortable with mother coming for holidays due to active use. Cl reports wanting to have healthier lifestyle and unhappy with current weight. CL expressed being unsuccessful with yo-yo dieting and reports increased binge eating. Objective CL was alert but difficult to engage due to young children crying and fighting with eachother. CL was avoidant when asked about having Dad watch kids during session to help focus on being present and actively work on goals. Mental Status Exam: Appearance: appropriate Behavior: generally relaxed and engaged, cooperative Speech: unremarkable Mood: neutral Affect: appropriate for circumstance Thought content: unremarkable Perception: unremarkable Insight: appropriate Judgment: appropriate Assessment TH and CL explored recent stressors with children's medical concerns. TH normalized children's behaviors and educated about developmental stages of young children. TH and CL explored history of substance use and how mother's use affected childhood and current relationship with grandchildren. TH and CL explored recent increase in binge eating and how to get eating under control. TH and CL explored using meal prepping and portion controlling snacks to help regain control. TH encourgaed CL to make realistic goals for self by using mini goals to achieve success. The following goals were addressed today: "I know it will never go away but I want to get better coping skills to manage" and I will learn and use 1-3 skills to manage thoughts, feelings, and urges brought on by encounters with trauma-related situations. Next Care Plan Review Date: 05/15/2024 F42.2 Mixed obsessional thoughts and acts (primary encounter diagnosis) Functional Status: Minimal Improvement Therapeutic Intervention(s) Applied: Symptom management, skill building, Assist in problem solving, and Reflective listening and reassurance Acute risk for harm to self/others: Low C-SSRS Plan CL will start researhing meal prepping ideas to work on creating healthier lifestyle goals. Next appointment with this provider: 11/27/2023 BASIS-24 Clinical Severity - Most Recent Administration Date Administered: 07/15/2023 Domain Subscore & Severity Depression/Functioning 1.33 - Moderate Interpersonal Relationships 1.38 - Moderate Self-Harm 0 - Low Emotional Lability 1.5 - Moderate Psychosis 0 - Low Alcohol/Drug Use 0 - Low BASIS-24 Overall Score 1.07 - Moderate Reference: BASIS-24 Behavior and Symptom Identification Scale: Clinical Cut Scores. Jama Patel (2018). documented in this encounter [facility] Work Phone: 10-30-2023 History of Presen t illness Narrative Reason for visit: Individual Counseling Video conference visit (Leia.). Patient identity confirmed via name and date of . Potential risks and benefits discussed with patient/guardian, who verbalized consent for telehealth encounter. Patient location: home. Subjective CL expressed things have been better since son had surgery to put tubes in his ear and having reduced pain and infections. . Cl reports son has been sleeping through the night which has improved overall mood. CL reports Mom getting arrested and going to alf for narcotics. CL expressed having a really hard time processing the situation and feeling more concerned than prior times. CL reports cooking Thanksgiving diner for the first time and having the whole family enjoy themselves. Objective CL was alert in session. CL children's father was in background and client reports him being home for winter. TH asked client if father wanted to watch children to reduce distractions and fully engage but client declined and stated, "it's ok". Mental Status Exam: Appearance: appropriate Behavior: generally relaxed and engaged, cooperative Speech: unremarkable Mood: neutral Affect: appropriate for circumstance Thought content: unremarkable Perception: unremarkable Insight: appropriate Judgment: appropriate Assessment TH and CL explored feelings about having other surgery pushed back and feeling concerned. TH asked open ended questions about history with Mom to gain more insight about past experiences. TH explored client feelings about Mom being incarcerated and having concerns for brother who is special needs. TH challenged client thinking about socially exceptable norms for development and being mindful about judgements and comparing to own parenting. TH educated Cl about different programs and how to connect to resources that can provide insight or calling APS if care is neglected. The following goals were addressed today: "I know it will never go away but I want to get better coping skills to manage" Next Care Plan Review Date: 05/15/2024 F42.2 Mixed obsessional thoughts and acts (primary encounter diagnosis) F41.1 Generalized anxiety disorder Functional Status: Minimal Improvement Therapeutic Intervention(s) Applied: Assist in problem solving and Reflective listening and reassurance Acute risk for harm to self/others: Low C-SSRS Plan CL will engage in self care and enjoy getting hair done following week without kids. Next appointment with this provider: 11/06/2023 BASIS-24 Clinical Severity - Most Recent Administration Date Administered: 07/15/2023 Domain Subscore & Severity Depression/Functioning 1.33 - Moderate Interpersonal Relationships 1.38 - Moderate Self-Harm 0 - Low Emotional Lability 1.5 - Moderate Psychosis 0 - Low Alcohol/Drug Use 0 - Low BASIS-24 Overall Score 1.07 - Moderate Reference: BASIS-24 Behavior and Symptom Identification Scale: Clinical Cut Scores. Jama Patel (2018). documented in this encounter [facility] Work Phone: 10-23-2023 History of Presen t illness Narrative POPULATION HEALTH NAVIGATION OUTREACH Action/OFELIA Beaver MD offboarding Call made to patient and she declined any scheduling at this time Patient Identified by Name and : YES, via phone Outreach Outcome/Action Spoke to patient / parent / legal guardian: Patient declined. Not interested in scheduling Did you use a PCP flex slot to schedule this appointment? N/A Reason for Outreach Attribution: Provider Off-boarding Payer: Payor: [employer] / Plan: [facility] MEDICAID / Product Type: Medicaid / Care Gap Reviewed:: Annual Wellness visit Flu Vaccine Reminder: Reminder note to check Health Maintenance for items below Health Maintenance items due: HPV Vaccine(3 - 3-dose series) due on 03/25/2008 HPV Testing Never done Depression Assessment Never done Influenza Vaccine(1) Never done Navigation Signature: Peri Osman October 23, 2023 11:41 AM documented in this encounter [facility] 10-14-2023 Instructions Jaja Moss APRN.CNP - 10/14/2023 11:16 AM EST Instruction after Botox injection: - If you have any pain or swelling use ice, 20 min on and 20 min off. Do not rub or massage the area for 24 hrs. - If you have any neck stiffness, you may use heat and do stretching exercises. - This should improve over the next 5 days. - If it does not, call our office at [phone] for further instructions. documented in this encounter [facility] 10-14-2023 Procedure note Headache Center Follow-up Visit Current Preventive: botox Change needed for current preventive? No Current Abortive: [employer] - not working as well now Miscellaneous Patient Concerns: Rima: 2 headaches. [employer] worked for 1 migraine October: 20 headaches (had an increase in stress). Migraines would last 3 - 4 days, during the month of August [employer] ws not working as well November: 2 headaches - [employer] worked for 1 migraine Impression: Intractable chronic migraine without aura and without status migrainosus (primary encounter diagnosis) Rosalva María Reina has been previously approved for an Oral Calcitonin Gene-Related Peptide Receptor Antagonist (GEPANT) Rimegepant for the treatment of acute migraine. The patient has demonstrated the following: Provider attests patient has had a positive clinical response: Yes Patient will not use with another Oral Calcitonin Gene-Related Peptide Receptor Antagonist (GEPANT): Yes Patient's quality of life and ability to perform ADLs has improved: Yes We suggest the patient continue treatment with GEPANT Rimegepant. The following preventative medications have been tried for three or more months without benefit: Anti-Convulsant Lamotrigine (Lamictal) Topiramate (Topamax, Trokendi XL, Qudexy) Anti-Depressant and Antipsychotic Quetiapine (Seroquel) Supplements CoQ10 Magnesium Riboflavin The following abortive medications have been tried but require high frequency use which can lead to Medication Overuse Headache: Analgesic Diclofenac (Voltaren, Cataflam, Cambia) Hydrocodone/Acetaminophen (Vicodin, [employer]) Anti-Anxiety Alprazolam (Xanax, Niravam) Diazepam (Valium) Anti-Migraine Rizatriptan (Maxalt) Sumatriptan (Imitrex, Sumavel) GEPANTS Rimegepant (Nurtec) Over the Counter Medications Acetaminophen (Tylenol) Ibuprofen (Advil, Motrin) Follow-Up Onabotulinum Toxin A (BotoxTM) for Migraine Indication: Chronic Intractable Migraine Treatment #: 2 Referral Expiration: 06/10/2024 Prior to the initiation of the FIRST treatment with Onabotulinum Toxin A, the patient reported the following average headache frequency over the past 3 MONTHS: Number of moderate-severe migraine days/month: 25 Number of mild migraine days/month: 0 Number of headache free days/month: 5 (120 headache-free hours) After treatment with Onabotulinum Toxin A: Number of moderate-severe migraine days/month: 3 Number of mild migraine days/month: 0 Number of headache free days/month: 27 (648 headache-free hours) Patient reduction in overall migraine days: Yes Patient reduction in moderate-severe migraine days: Yes Patient reduction of headache hours by 100 hours or more: Yes (reduction of 528 hours) Individual has obtained clinical benefit deemed significant by individual or prescriber (Y/N): Yes Patient's quality of life and ability to perform ADLs has improved (Y/N): Yes Side effects: none Wearing off: Yes - 11 weeks after treatment The patient has been assessed for disorders which could contribute to breathing or swallowing difficulty, and there is no contraindication with PREEMPT Botox. There is no documented allergic reaction/hypersensitivity to any botulinum toxin and there is no active infection at proposed injection site. HEADACHE SCORES: Headache Questions 12/03/2020 Initial improvement of headache after botox injection at last visit: Not applicable, I did not have a botox injection at my last visit PRN medication usage in the last month: 0 Patient impression of improvement since last visit: Not applicable, this is my first visit HIT-6 12/03/2020 HIT-6 63 (Severe impact) NIKKIE - 2/7 SCORES 12/03/2020 NIKKIE-2 Score 1 PHQ-9 12/03/2020 Score 4 BP 108/60 Pulse 87 LMP (LMP Unknown) Patient name: Rosalva Huang : 1990 ALLERGIES Allergen Reactions Onion GI Upset Adhesive Tape (Rita* Rash, Itching Patient reports unable to tolerate band-aids after a procedure. She noted redness and itching at site of band aid. Mosquitos Swelling Phenergan [Prometha* GI Upset Sunscreen Rash Tingle tanning lotion Zyrtec [Cetirizine * Mental Status Change Made her very drowsy, UNIVERSAL PROTOCOL / SAFETY CHECKLIST Procedure: Onabotulinum toxin A for migraine Informed Consent Consent Obtained: Written [place] Protocol A moment to CARE was completed SIGN IN Personnel directly involved with the procedure wore the appropriate PPE Special Equipment: N/A Patient/Surrogate Stated/Verified: Patient name, Date of , Relevant allergies and Intended procedure TIME OUT Intended patient and procedure match the source document(s) Consent documented and matches the intended procedure No relevant labs, photos, and/or imaging studies were applicable for review. No correct side/site applicable for marking and visibility. Medications required for procedure verified. No fire risk assessment and interventions applicable. No implant(s) inserted. SIGN OUT No specimen collected. No instruments, equipment or retained foreign bodies applicable. Post-procedure follow-up management communicated and Plan of Care Visit completed when applicable Written Consent Obtained: Written LOT #: [id number] Expiration Date: Month: 2 Year: 2025 Injection Sites Left (Units) Left (Sites) Right (Units) Right (Sites) TOTAL (Units) Manager Mall 5 1 5 1 10 Procerus Units: 5 Sites: 1 5 Frontalis 10 2 10 2 20 Temporalis 20 4 20 4 40 Occipitalis 15 3 15 3 30 Cervical PSP 10 2 10 2 20 Trapezius 15 3 15 3 30 Total Units used: 155 Total Units wasted: 45 Prior Therapies Duration of Use Dose Side effect Other Therapies Nerve blocks Analgesic Diclofenac (Voltaren, Cataflam, [place]ia) Hydrocodone/Acetaminophen (Vicodin, [employer]) Anti-Anxiety Alprazolam (Xanax, Niravam) Diazepam (Valium) Anti-Convulsant Lamotrigine (Lamictal) Topiramate (Topamax, Trokendi XL, Qudexy) Anti-Depressant and Antipsychotic Quetiapine (Seroquel) Antiemetics Ondansetron Promethazine Anti-Migraine Rizatriptan (Maxalt) Sumatriptan (Imitrex, Sumavel) GEPANTS Rimegepant (Nurtec) Supplements CoQ10 Magnesium Riboflavin Other Medications Dexamethasone (Decadron) Methylprednisolone (Medrol) Prednisone Over the Counter Medications Acetaminophen (Tylenol) Ibuprofen (Advil, Motrin) Jaja Moss APRN.CAGER OPERATOR documented in this encounter [facility] 10-09-2023 History of Presen t illness Narrative Registered Nurse Visit 10/09/2023 10:00 AM Reason For Visit Health maintenance ("care gap") screening, assessment, education, and referral. Interval History and Patient Concerns Client reports she just started the lamictal 200mg yesterday. Her risperdal did not come, message sent to pharmacy. Client reports she has struggled with lack of sleep because Alexandre has had back to back ear infections and RSV. He is scheduled for ear tubes this month so she has some anxiety related to that. She is looking into a gnosticism nearby that has a nursery program to give her some extra support. Denies thoughts of self harm or harming others. Reports she had some depression symptoms x3 day sbut has improved. No hallucinations or delusional thoughts. 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 Doing well with counseling. Medication Adherence Good Side Effects Reported No New Medical Problems or History ear infection currently Vitals Taken? No COWS Completed? No AIMS Completed? No Nursing Specialty Psychiatry Patient has Narcan? No Reported Mood Euthymic Reported Sleep broken, decreased due to son being awake Reported Appetite ok Hallucinations or Delusions None Reported General Alert;Cooperative Behavior Cooperative;Relaxed and engaged Insight Appropriate Judgment Appropriate Title X Services Was a Title X service provided? No. Assessment and Plan Risk Assessment Acute risk for harm to self/others: Low 1. Generalized anxiety disorder (Primary) Overview: The intrusive thoughts and obsessions appear to be more consistent with anxiety/OCD presentation than Bipolar Disorder but will continue to monitor these overlapping symptoms and response to medication changes. Given h/o mood switching/poor rxn to SSRI, will plan to maximize mood stabilizing dose of Risperdal if decision is made for trial of SSRI. Care Planning Additional Plan: Patient education provided this visit: coping, improving support system, when to reach out, symptoms Routed encounter note to Dr. [place]. Follow up as scheduled Reach out as needed Continue counseling Reviewed upcoming appointments: Appointments for the next 13 months 10/09/2023 12:00 PM COUNSELING [facility] Angela Dinh TRUST CLERK 60 min 10/23/2023 12:00 PM COUNSELING [facility] Angela Dinh TRUST CLERK 60 min 11/30/2023 1:00 PM MEDICATION MANAGEMENT [facility] [id number] NURSE RUBÉN 20 min 11/30/2023 1:20 PM MEDICATION MANAGEMENT [facility] Herberth [place], 20 min documented in this encounter [employer] Phone: 10-01-2023 Miscellaneous Notes Patient verified by name and Relayed message from provider Sol Santos APRN.LOUIS on 10/01/2023 at 8:18 am. Patient verbalized understanding. Danielle Price LPN Please advise patient that urine culture has no bacteria growing, she may stop the abx. If her sx persist, advise her to f/u with SPECIAL EDUCATION COORDINATOR or PCP. Thank you. documented in this encounter [facility] 09-29-2023 History of Presen t illness Narrative This note was created using NoteWriter. Subjective Rosalva Huang is a 33 year old female who presents with concerns of: UTI (Bloody urine, burning x 12 hrs) and Ear Pain (Right ear, here 09/14 drops didn't help) The history is provided by the patient. UTI This is a new problem. The current episode started 6 to 12 hours ago. The problem occurs every urination. The problem has not changed since onset.The quality of the pain is described as burning. There has been no fever. Associated symptoms include hematuria. Pertinent negatives include no chills, no nausea, no vomiting, no frequency, no urgency and no flank pain. She has tried nothing for the symptoms. Ear Pain This is a new problem. Episode onset: 2 weeks. The problem occurs constantly. The problem has been unchanged. Pertinent negatives include no abdominal pain, arthralgias, chest pain, chills, diaphoresis, fever, myalgias, nausea or vomiting. Treatments tried: Rx drops. Review of Systems Constitutional: Negative for chills, diaphoresis and fever. HENT: Positive for ear pain. Negative for ear discharge, hearing loss and tinnitus. Respiratory: Negative for shortness of breath. Cardiovascular: Negative for chest pain and palpitations. Gastrointestinal: Negative for abdominal pain, nausea and vomiting. Genitourinary: Positive for dysuria and hematuria. Negative for flank pain, frequency, genital sores and urgency. Musculoskeletal: Negative for arthralgias and myalgias. Skin: Negative. PAST MEDICAL HISTORY Diagnosis Date Endometriosis 10/26/2014 never had diagnostic lap to confirm, patient did not want surgery Gestational diabetes mellitus (GDM) affecting second 05/25/2022 Infertility, female Migraine without aura and without status migrainosus, not intractable 07/18/2019 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HCC) 08/27/2015 Panic disorder without agoraphobia PMH - PAST MEDICAL HISTORY OF color vision normal PMH - PAST MEDICAL HISTORY OF "vascular disease" 01/2002 PMH - PAST MEDICAL HISTORY OF wearing glasses and broke ankle at age 3, wrist fracture depression Objective BP 114/66 Pulse 78 Temp 36.8 C (98.2 F) (Temporal) Resp 18 Wt 77.6 kg (171 lb) LMP (LMP Unknown) SpO2 99% No BMI 31.28 kg/m Physical Exam Vitals and nursing note reviewed. Constitutional: General: She is not in acute distress. Appearance: Normal appearance. She is well-developed and well-groomed. She is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 assess gait as pt was seated for session. Data Reviewed (labs, BASIS-24, AIMS, outside records, etc): Lab Results Component Value Date HGBA1C 5.2 06/03/2022 BASIS-24 Clinical Severity - Most Recent Administration Date Administered: 07/15/2023 Domain Subscore & Severity Depression/Functioning 1.33 - Moderate Interpersonal Relationships 1.38 - Moderate Self-Harm 0 - Low Emotional Lability 1.5 - Moderate Psychosis 0 - Low Alcohol/Drug Use 0 - Low BASIS-24 Overall Score 1.07 - Moderate Reference: BASIS-24 Behavior and Symptom Identification Scale: Clinical Cut Scores. Jama Patel (2018). Last Menstrual Period: Other: n/a Assessment Safety Risk Assessment: Acute risk for harm to self/others: Low Chronic risk for harm to self/others: Moderate Plan Risks, benefits, and alternatives were discussed. Patient/guardian understood and agreed with the plan. Reviewed Safety Plan: Call 911 or go to ED if in crisis. Advised of availability of after hours RN by calling main number for [facility]. 1. Bipolar disorder, current episode mixed, severe, without psychotic features ([facility]) (Primary) Overview: Has responded well to risperdal and lamotrigine, with some intermittent cycling between mild depressive/euthymic and hypomanic states. Assessment & Plan: Increase risperdal to 2 mg po qhs for increased mood stability. Orders: - RN NURSING PER 15 MIN 2. Generalized anxiety disorder Overview: The intrusive thoughts and obsessions appear to be more consistent with anxiety/OCD presentation than Bipolar Disorder but will continue to monitor these overlapping symptoms and response to medication changes. Given h/o mood switching/poor rxn to SSRI, will plan to maximize mood stabilizing dose of Risperdal if decision is made for trial of SSRI. Orders: - busPIRone (BUSPAR) 10 mg tablet; Take 1 Tablet by mouth 2 (two) times daily, Disp-60 Tablet, R-1 e-Prescribing, Long-term (Patient not taking: Reported on 09/04/2023) Dispense: 60 Tablet; Refill: 1 3. Bipolar disorder in partial remission, most recent episode unspecified type ([facility]) - lamoTRIgine (LAMICTAL) 150 mg tablet; Take 1 Tablet by mouth once daily, Disp-30 Tablet, R-1 e-Prescribing, Long-term Dispense: 30 Tablet; Refill: 1 - risperiDONE (RISPERDAL) 2 mg tablet; Take 1 Tablet by mouth nightly at bedtime, Disp-30 Tablet, R-1 e-Prescribing, Long-term Dispense: 30 Tablet; Refill: 1 Follow-up: No follow-ups on file. Upcoming Appointments: Appointments for the next 13 months 09/11/2023 12:00 PM COUNSELING STANDARD [facility] [place] 45 min 09/18/2023 12:00 PM COUNSELING EXTENDED [facility] [place] 60 min 09/25/2023 12:30 PM COUNSELING EXTENDED [facility] [place] 60 min 09/28/2023 3:20 PM MEDICATION MANAGEMENT [facility] [id number] NURSE LUCI [place] 20 min 09/28/2023 3:40 PM MEDICATION MANAGEMENT [facility] Herberth [place] DO 20 min Reason for visit: Psychiatric Med Management Rosalva presents before Provider appointment Video conference visit (Doxy.). Patient identity confirmed via name and date of . Potential risks and benefits discussed with patient/guardian, who verbalized consent for telehealth encounter. Patient location: home. Subjective Interval history and patient concerns: "I had a traumatic event happen where my child was missing but then she was found, but it scared me and now I am having intrusive thoughts again and panic attacks and nightmares". Reports high anxiety,OCD,intrusive thoughts,panic attacks, no S/I. Denies AVH,paranoia or delusions. Current Outpatient Medications Medication Instructions acetaminophen (TYLENOL) 500 mg tablet No dose, route, or frequency recorded. amoxicillin (AMOXIL) 875 mg tablet TAKE 1 TABLET BY MOUTH TWICE DAILY FOR 7 DAYS busPIRone (BUSPAR) 10 mg, oral, 2 TIMES DAILY CitruceL 1,000 mg, oral, Every 8 hours PRN ibuprofen 600 mg, oral, Every 6 hours PRN, for pain lamoTRIgine (LAMICTAL) 150 mg, oral, Daily Nurtec ODT 75 mg, oral omeprazole (PRILOSEC) 20 mg, oral, Daily ONETOUCH VERIO TEST STRIPS strips No dose, route, or frequency recorded. penicillin V (VEETID) 500 mg, oral, 4 times daily risperiDONE (RISPERDAL) 0.5 mg, oral, NIGHTLY risperiDONE (RISPERDAL) 1 mg, oral, NIGHTLY Reported medication adherence: compliant Reported medication side effects: none reported to RN today New medical problems or history: Migraines Objective Vitals not currently . Mental Status Exam: Behavior: cooperative, anxious Speech: unremarkable Mood: nervous, anxious Affect: appropriate for circumstance Thought content: obsessions - intrusive thoughts Perception: unremarkable Additional objective data: none Assessment Provider diagnosis and treatment plan reviewed. F31.63 Bipolar disorder, current episode mixed, severe, without psychotic features ([facility]) (primary encounter diagnosis) Comment: none Risk Assessment: Acute risk for harm to self/others: Plan Verified patient medications and allergies; updated patient medical history in medical record. Provided report to Provider regarding patient concerns and status. Safety plan: can call office Nurse business hours, or call 911/go to ER Upcoming appointments: Appointments for the next 13 months 08/24/2023 3:20 PM MEDICATION MANAGEMENT [facility] Herberth Montana DO 20 min 08/28/2023 12:00 PM COUNSELING STANDARD [facility] VASQUEZ Whaley 45 min 09/04/2023 12:00 PM COUNSELING STANDARD [facility] VASQUEZ Whaley 45 min 09/11/2023 12:00 PM COUNSELING STANDARD [facility] VASQUEZ Whaley 45 min documented in this encounter [facility] Work Phone: 09-04-2023 History of Presen t illness Narrative Telephone visit. Patient identity confirmed via name and date of . Potential risks and benefits discussed with patient/guardian, who verbalized consent for telehealth encounter. Reason for Telephone: Other: client missed video appt, called office back for phone appt. Patient location: home. Registered Nurse Visit 09/04/2023 10:00 AM Reason For Visit Health maintenance ("care gap") screening, assessment, education, and referral. Interval History and Patient Concerns Client reports she stopped the buspar completely because it was making her dizzy. Since increasing the risperdal, she notices good improvement in OCD symptoms. Her mood is much more stable. Denies depression symptoms. Intrusive thoughts improved. Denies thoughts of self harm or harming others. Denies hallucinations or delusional thoughts. Manic episodes are much less severe and not very often, reporting mild manic symptoms 3-4 times in past 8 months. Anxiety was triggered by episode where Rosita ran off. She is worried that it could happen again. She is also trying to stay off social media where violent posts have been triggering for her. Reports counseling is helping. Sleep disrupted currently due to her cold symptoms and also the kids are both sick. Medication Adherence Good Side Effects Reported Yes Yes (Comment) dizziness from buspar New Medical Problems or History cold symptoms Vitals Taken? No COWS Completed? No AIMS Completed? No Nursing Specialty Psychiatry Patient has Narcan? No Reported Mood Euthymic Reported Sleep disrupted due to cold Reported Appetite ok Hallucinations or Delusions None Reported General Alert;Cooperative Behavior Cooperative;Relaxed and engaged Insight Appropriate Judgment Appropriate Title X Services Was a Title X service provided? No. Assessment and Plan Risk Assessment Acute risk for harm to self/others: Low 1. Bipolar disorder, current episode mixed, severe, without psychotic features (HCC-CMS) (Primary) 2. Generalized anxiety disorder Overview: The intrusive thoughts and obsessions appear to be more consistent with anxiety/OCD presentation than Bipolar Disorder but will continue to monitor these overlapping symptoms and response to medication changes. Given h/o mood switching/poor rxn to SSRI, will plan to maximize mood stabilizing dose of Risperdal if decision is made for trial of SSRI. Care Planning Additional Plan: Patient education provided this visit: medication, symptoms, side effects, coping, triggers Routed encounter note to Dr. Montana. Continue counseling Call if concerns Limit social media scrolling Follow up as scheduled Reviewed upcoming appointments: Appointments for the next 13 months 09/11/2023 12:00 PM COUNSELING STANDARD [facility] Angela Dinh, TRUST CLERK 45 min 09/18/2023 12:00 PM COUNSELING EXTENDED [facility] Angela Dinh, TRUST CLERK 60 min 09/25/2023 12:30 PM COUNSELING EXTENDED [facility] Angela Dinh, TRUST CLERK 60 min 09/28/2023 3:20 PM MEDICATION MANAGEMENT [facility] [id number] NURSE RUBÉN 20 min 09/28/2023 3:40 PM MEDICATION MANAGEMENT [facility] Herberth Montana DO 20 min documented in this encounter [facility] Work Phone: 08-14-2023 History of Presen t illness Narrative Reason for visit: Individual Counseling Video conference visit ([email or web address]). Patient identity confirmed via name and date of . Potential risks and benefits discussed with patient/guardian, who verbalized consent for telehealth encounter. Patient location: home. Subjective CL stated having decreased sleep due to young son having UTI and up crying all night. CL expressed feeling excited for kids to go to school Objective CL was engaged and alert. Mental Status Exam: Appearance: appropriate Behavior: generally relaxed and engaged, cooperative Speech: unremarkable Mood: neutral Affect: appropriate for circumstance Thought content: unremarkable Perception: unremarkable Insight: appropriate Judgment: appropriate Assessment TH and CL explored stressors within parenting role and trying to navigate through feelings when triggered. TH validated CL feelings and normalized stressful times within parenthood. TH challenged CL to use thought stopping techniques when asking what-if questions and obsessing about future events. TH explored importance of having more than role of being Mom. TH discussed being able to have self awareness for own identity and recognize co-dependent behaviors. The following goals were addressed today: "I know it will never go away but I want to get better coping skills to manage" Next Care Plan Review Date: 05/15/2024 F41.1 Generalized anxiety disorder (primary encounter diagnosis) Functional Status: Minimal Improvement Therapeutic Intervention(s) Applied: Reflective listening and reassurance Acute risk for harm to self/others: Low C-SSRS Plan CL will explore churches/spiritual center within [facility] and youth programs to engage in. Next appointment with this provider: 08/21/2023 BASIS-24 Clinical Severity - Most Recent Administration Date Administered: 07/15/2023 Domain Subscore & Severity Depression/Functioning 1.33 - Moderate Interpersonal Relationships 1.38 - Moderate Self-Harm 0 - Low Emotional Lability 1.5 - Moderate Psychosis 0 - Low Alcohol/Drug Use 0 - Low BASIS-24 Overall Score 1.07 - Moderate Reference: BASIS-24 Behavior and Symptom Identification Scale: Clinical Cut Scores. Jama Patel (2018). documented in this encounter [facility] Work Phone: 08-07-2023 History of Presen t illness Narrative Reason for visit: Individual Counseling Video conference visit (Leia.). Patient identity confirmed via name and date of . Potential risks and benefits discussed with patient/guardian, who verbalized consent for telehealth encounter. Patient location: home. Subjective CL stated working on healthier lifestyle choices by making better food choices. CL reports feeling frustrated and angry within home with children's behaviors. CL stated wanting to get out of house with kids more but feeling too stressed. CL stated looking into a pre-school but feeling apprehensive about having someone else watch kids. CL stated not knowing how to give space and create balance. CL stated not wanting Dad to watch kids because "they aren't use to him" and "not wanting to cause trauma" from crying too much or getting upset. Objective CL was engaged and alert. Mental Status Exam: Appearance: appropriate Behavior: generally relaxed and engaged, cooperative Speech: unremarkable Mood: neutral Affect: appropriate for circumstance2 Thought content: unremarkable Perception: unremarkable Insight: appropriate Judgment: appropriate Assessment TH asked open ended questions about in home dynamics and being able to get supports when needed to reduce stressors. TH asked cl to assess own needs and being able to apply boundaries with self. TH explored what unhealthy co-dependent behaviors look like and reframing ideas of hurting babies feeling and explore being able to create boundaries. TH and CL explored pro/con for home schooling or going to school in person. TH encouraged CL to explored options and encouraged cl to research schools and state statistics. TH used reality testing questions to challenge client and be mindful of transference. The following goals were addressed today: "I know it will never go away but I want to get better coping skills to manage" and I will practice self-care daily to decrease and prevent anxiety. Next Care Plan Review Date: 05/15/2024 F42.9 Obsessive-compulsive disorder, unspecified type (primary encounter diagnosis) F41.1 Generalized anxiety disorder Functional Status: No Change Therapeutic Intervention(s) Applied: Symptom management, skill building, Reframing and positive focus, and Reflective listening and reassurance Acute risk for harm to self/others: Low C-SSRS Plan CL will explore Ericksons stages of development and provide feedback at next session. CL will reach out to provided resources for [facility] and local school districts. Next appointment with this provider: 08/14/2023 BASIS-24 Clinical Severity - Most Recent Administration Date Administered: 07/15/2023 Domain Subscore & Severity Depression/Functioning 1.33 - Moderate Interpersonal Relationships 1.38 - Moderate Self-Harm 0 - Low Emotional Lability 1.5 - Moderate Psychosis 0 - Low Alcohol/Drug Use 0 - Low BASIS-24 Overall Score 1.07 - Moderate Reference: BASIS-24 Behavior and Symptom Identification Scale: Clinical Cut Scores. Jama Patel (2018). documented in this encounter [facility] Work Phone: 07-15-2023 Instructions Jaja Moss APRN.CAGER OPERATOR - 07/15/2023 1:58 PM EDT AFTER VISIT CARE BOTOX INJECTION While these procedures can be extremely helpful as part of your headache treatment plan, they can irritate the muscles and tissues in your head, neck and shoulders. Proper follow-up care is important to avoid muscle spasms and temporary pain increase within the following 3-5 days after your clinic visit. Here are some tips to help decrease side-effects that may occur and maximize the effectiveness of your pain relief -HYDRATION Hydration is important to help flush out toxins and nourish your muscles and tissues. Drink 60-80 oz of non caffeinated fluid at least for 3 days after your visit. -REST Rest will help avoid further irritation of muscle and tissues. Remember that you need to give your body time to adjust. NO strenuous activity for at least the first 3 days after your visit. Gentle stretching, yoga, meditation or even swimming is OK and encouraged. -ICE/HEAT Since these procedures irritate muscles, there can be some swelling. Alternating ice and heat every 3-5 times per day may help decrease this, while also optimizing pain relief Use cool gel packs for ice for 10 min. Use a warm moist towel covered with a dry towel on neck and shoulders. Alternate stretching each side of the neck. -STRETCHING Slow, gentle stretching of the neck and shoulders once every hour is helpful to avoid muscle spasms and help release toxins. -TREAT MUSCLE SPASMS If you are already prescribed a muscle relaxer such as baclofen, tizanidine or flexoril, use as directed. If you do not have one, talk to your provider to find out if this would be safe for you to use. documented in this encounter [facility] 07-15-2023 Procedure note New Onabotulinum Toxin A (BotoxTM) for Migraine Indication: Chronic Intractable Migraine Treatment #: 1 Referral Expiration: 06/10/2024 Number of moderate-severe migraine days/month: 25 Number of mild migraine days/month: 0 Number of headache free days/month: 5 (120 headache-free hours) The patient has been assessed for disorders which could contribute to breathing or swallowing difficulty, and there is no contraindication with PREEMPT Botox. There is no documented allergic reaction/hypersensitivity to any botulinum toxin and there is no active infection at proposed injection site. Denies chance of - current has an IUD. HEADACHE SCORES: Headache Questions 12/03/2020 Initial improvement of headache after botox injection at last visit: Not applicable, I did not have a botox injection at my last visit PRN medication usage in the last month: 0 Patient impression of improvement since last visit: Not applicable, this is my first visit HIT-6 12/03/2020 HIT-6 63 (Severe impact) NIKKIE - 2/7 SCORES 12/03/2020 NIKKIE-2 Score 1 PHQ-9 12/03/2020 Score 4 BP 100/61 Pulse 79 LMP (LMP Unknown) Patient name: Rosalva Huang : 1990 ALLERGIES Allergen Reactions Onion GI Upset Adhesive Tape (Rita* Rash, Itching Patient reports unable to tolerate band-aids after a procedure. She noted redness and itching at site of band aid. Mosquitos Swelling Phenergan [Prometha* GI Upset Sunscreen Rash Tingle tanning lotion Zyrtec [Cetirizine * Mental Status Change Made her very drowsy, UNIVERSAL PROTOCOL / SAFETY CHECKLIST Procedure: Onabotulinum toxin A for migraine Informed Consent Consent Obtained: Written [place] Protocol A moment to CARE was completed SIGN IN Personnel directly involved with the procedure wore the appropriate PPE Special Equipment: N/A Patient/Surrogate Stated/Verified: Patient name, Date of , Relevant allergies and Intended procedure TIME OUT Intended patient and procedure match the source document(s) Consent documented and matches the intended procedure No relevant labs, photos, and/or imaging studies were applicable for review. No correct side/site applicable for marking and visibility. Medications required for procedure verified. No fire risk assessment and interventions applicable. No implant(s) inserted. SIGN OUT No specimen collected. No instruments, equipment or retained foreign bodies applicable. Post-procedure follow-up management communicated and Plan of Care Visit completed when applicable Written Consent Obtained: Written LOT #: [id number] Expiration Date: Month: 2 Year: 2025 Injection Sites Left (Units) Left (Sites) Right (Units) Right (Sites) TOTAL (Units) Manager Mall 5 1 5 1 10 Procerus Units: 5 Sites: 1 5 Frontalis 10 2 10 2 20 Temporalis 20 4 20 4 40 Occipitalis 15 3 15 3 30 Cervical PSP 10 2 10 2 20 Trapezius 15 3 15 3 30 Total Units used: 155 Total Units wasted: 45 Prior Therapies Duration of Use Dose Side effect Other Therapies Nerve blocks Analgesic Diclofenac (Voltaren, Cataflam, Cambia) Hydrocodone/Acetaminophen (Vicodin, [employer]) Anti-Anxiety Alprazolam (Xanax, Niravam) Diazepam (Valium) Anti-Convulsant Lamotrigine (Lamictal) Topiramate (Topamax, Trokendi XL, Qudexy) Anti-Depressant and Antipsychotic Quetiapine (Seroquel) Antiemetics Ondansetron Promethazine Anti-Migraine Rizatriptan (Maxalt) Sumatriptan (Imitrex, Sumavel) GEPANTS Rimegepant (Nurtec) Supplements CoQ10 Magnesium Riboflavin Other Medications Dexamethasone (Decadron) Methylprednisolone (Medrol) Prednisone Over the Counter Medications Acetaminophen (Tylenol) Ibuprofen (Advil, Motrin) Jaja Moss APRN.CAGER OPERATOR documented in this encounter [facility] 07-15-2023 History of Presen t illness Narrative Reason for visit: Individual Counseling Subjective CL expressed feeling frustrated and overwhelmed at times when not being able to have break from parental role. CL reflected on history of relationships and repeated patterns of behaviors. CL reflected on struggles and barriers with trying to conceive and finding life partner. CL expressed having no concept of value of money and having difficult time with money management. Objective Cl was orientated 4x. CL shared history of Mental Status Exam: Appearance: appropriate Behavior: generally relaxed and engaged, cooperative Speech: unremarkable Mood: neutral Affect: appropriate for circumstance Thought content: unremarkable Perception: unremarkable Insight: appropriate Judgment: appropriate Assessment TH validated CL feelings and provided support. TH and CL explored pattern of relationships and being able to recognize unhealthy behaviors and be mindful of repeated traits. TH explored role of chrome tanning drum operator in relationships and correlation with core values and attachment. TH educated CL about attachment theory and normalizing behaviors that were present in childhood. The following goals were addressed today: "I know it will never go away but I want to get better coping skills to manage" Next Care Plan Review Date: 05/15/2024 F41.1 Generalized anxiety disorder (primary encounter diagnosis) F42.9 Obsessive-compulsive disorder, unspecified type Functional Status: Moderate Improvement Therapeutic Intervention(s) Applied: Relationship building skills and Reflective listening and reassurance Acute risk for harm to self/others: Low C-SSRS Plan CL will focus on improving self care activities to reduce stressors and reduced feeling of being overwhelmed. CL will work on "own your own thoughts" and attachment style Next appointment with this provider: 07/24/2023 documented in this encounter [facility] Work Phone: 07-14-2023 Instructions Huan Liu APRN.CNP - 07/14/2023 10:37 AM EDT ASSESSMENT/PLAN: 1. Dysuria - ICD9: 788.1, ICD10: R30.0 acute - UA positive for an esterase and hematuria - Send urine for culture - Begin treatment with Macrobid 100 mg BID for 5 days - Patient education for prevention given - UA DIP, URINE (POC) - URINE CULTURE - NITROFURANTOIN MONOHYDRATE & MACROCRYSTAL 100 MG ORAL CAP Huan Liu APRN.CAGER OPERATOR -I have reviewed and updated with the patient: allergies, VS, current medications, Past Medical History,Past Surgical History,Past Family Medical History, Past Social History. - Patient education provided today - Discussed with patient medications that are indicated and how to use the medications and what the potential side effects are. - Warning signs of worsening condition explained to patient -Instructed to follow up with PCP if symptoms not improving in next 2-3 days - Patient left in stable condition after questions answered and patient verbalizes understanding - Instructed to go to Emergency Department right away with any severe worsening chest pain, shortness of breath, headache, dizziness, weakness, numbness,leg swelling , tingling, problems walking or speaking or any other concerning symptoms UTI Instructions WHAT YOU NEED TO KNOW: A urinary tract infection (UTI) is caused by bacteria that get inside your urinary tract. Most bacteria that enter your urinary tract come out when you urinate. If the bacteria stay in your urinary tract, you may get an infection. Your urinary tract includes your kidneys, ureters, bladder, and urethra. Urine is made in your kidneys, and it flows from the ureters to the bladder. Urine leaves the bladder through the urethra. A UTI is more common in your lower urinary tract, which includes your bladder and urethra. DISCHARGE INSTRUCTIONS: GO to the emergency department if: You are urinating very little or not at all. You have a high fever with shaking chills. You have side or back pain that gets worse. Call your doctor if: You have a fever. You do not feel better after 2 days of taking antibiotics. You are vomiting. You have questions or concerns about your condition or care. Medicines: Antibiotics help fight a bacterial infection. If you have UTIs often (called recurrent UTIs), you may be given antibiotics to take regularly. You will be given directions for when and how to use antibiotics. The goal is to prevent UTIs but not cause antibiotic resistance by using antibiotics too often. Medicines may be given to decrease pain and burning when you urinate. They will also help decrease the feeling that you need to urinate often. These medicines will make your urine orange or red. You can buy a version of this over the counter called AZO urinary tract pain relief. Please ask your pharmacist for assistance. Take your medicine as directed. Contact your healthcare provider if you think your medicine is not helping or if you have side effects. Tell him or her if you are allergic to any medicine. Keep a list of the medicines, vitamins, and herbs you take. Include the amounts, and when and why you take them. Bring the list or the pill bottles to follow-up visits. Carry your medicine list with you in case of an emergency. Prevent another UTI: Empty your bladder often. Urinate and empty your bladder as soon as you feel the need. Do not hold your urine for long periods of time. Wipe from front to back after you urinate or have a bowel movement. This will help prevent germs from getting into your urinary tract through your urethra. Drink liquids as directed. Ask how much liquid to drink each day and which liquids are best for you. You may need to drink more liquids than usual to help flush out the bacteria. Do not drink alcohol, caffeine, or citrus juices. These can irritate your bladder and increase your symptoms. Your healthcare provider may recommend cranberry juice to help prevent a UTI. Urinate after you have sex. This can help flush out bacteria passed during sex. Do not douche or use feminine deodorants. These can change the chemical balance in your vagina. Change sanitary pads or tampons often. This will help prevent germs from getting into your urinary tract. Talk to your healthcare provider about your control method. You may need to change your method if it is increasing your risk for UTIs. Wear cotton underwear and clothes that are loose. Tight pants and nylon underwear can trap moisture and cause bacteria to grow. Vaginal estrogen may be recommended. This medicine helps prevent UTIs in women who have gone through menopause or are in miriam-menopause. Do pelvic muscle exercises often. Pelvic muscle exercises may help you start and stop urinating. Strong pelvic muscles may help you empty your bladder easier. Squeeze these muscles tightly for 5 seconds like you are trying to hold back urine. Then relax for 5 seconds. Gradually work up to squeezing for 10 seconds. Do 3 sets of 15 repetitions a day, or as directed. documented in this encounter [facility] 07-14-2023 History of Presen t illness Narrative This note was created using [employer] [employer]. Subjective Rosalva Huang is a 33 year old female. UTI (Hurts and stearns while urinating x 1 day ) The history is provided by the patient. UTI This is a new problem. The current episode started yesterday. The problem occurs every urination. The problem has not changed since onset.The quality of the pain is described as burning. The pain is moderate. There has been no fever. Associated symptoms include frequency and urgency. Pertinent negatives include no chills and no flank pain. Review of Systems Constitutional: Negative for chills, fatigue and fever. Respiratory: Negative for cough and shortness of breath. Genitourinary: Positive for dysuria, frequency and urgency. Negative for flank pain. Objective BP 128/78 Pulse 86 Temp 36.2 C (97.1 F) (Temporal) Resp 18 LMP (LMP Unknown) SpO2 95% Physical Exam Vitals and nursing note reviewed. Constitutional: Appearance: Normal appearance. Pulmonary: Effort: Pulmonary effort is normal. Abdominal: Tenderness: There is no abdominal tenderness. There is no right CVA tenderness or left CVA tenderness. Neurological: Mental Status: She is alert. Assessment and Plan ASSESSMENT/PLAN: 1. Dysuria - ICD9: 788.1, ICD10: R30.0 acute - UA positive for an esterase and hematuria - Send urine for culture - Begin treatment with Macrobid 100 mg BID for 5 days - Patient education for prevention given - UA DIP, URINE (POC) - URINE CULTURE - NITROFURANTOIN MONOHYDRATE & MACROCRYSTAL 100 MG ORAL CAP Huan Liu APRN.LOUIS -I have reviewed and updated with the patient: allergies, VS, current medications, Past Medical History,Past Surgical History,Past Family Medical History, Past Social History. - Patient education provided today - Discussed with patient medications that are indicated and how to use the medications and what the potential side effects are. - Warning signs of worsening condition explained to patient -Instructed to follow up with PCP if symptoms not improving in next 2-3 days - Patient left in stable condition after questions answered and patient verbalizes understanding - Instructed to go to Emergency Department right away with any severe worsening chest pain, shortness of breath, headache, dizziness, weakness, numbness,leg swelling , tingling, problems walking or speaking or any other concerning symptoms documented in this encounter [facility] 07-10-2023 History of Presen t illness Narrative Reason for visit: Individual Counseling Video conference visit (Leia.). Patient identity confirmed via name and date of . Potential risks and benefits discussed with patient/guardian, who verbalized consent for telehealth encounter. Patient location: home. Subjective CL started conversation with "I've done something bad" and posted on social media about prior trauma. CL stated feeling liberated about being able to express feelings but having negative thoughts after getting response confirming trauma. CL expressed having mixed feelings due to other person minimizing trauma and condoning behaviors in situation. CL reports parents did not recognize trauma and felt invalidated. CL reports binge eating Objective CL was engaged and alert. Mental Status Exam: Appearance: appropriate Behavior: generally relaxed and engaged, cooperative Speech: unremarkable Mood: neutral Affect: appropriate for circumstance Thought content: unremarkable Perception: unremarkable Insight: appropriate Judgment: appropriate Assessment TH validated CL feelings and provided support. TH and CL explored relationship with Mother and not feeling supported. TH educated CL about laws for abuse and neglect for persons who are cognitively impaired and provided resources to call in an make a report if needed. TH and CL discussed eating disorders and using mindfulness about portion size or replacing unhealthy foods with more healthier options. The following goals were addressed today: "I know it will never go away but I want to get better coping skills to manage" and "I want to resolve my own trauma and not project my feelings" Next Care Plan Review Date: 05/15/2024 F43.10 Post traumatic stress disorder (primary encounter diagnosis) Functional Status: Moderate Improvement Therapeutic Intervention(s) Applied: Symptom management, skill building and Reflective listening and reassurance Acute risk for harm to self/others: Low C-SSRS Plan CL will use mindfulness to monitor eating behaviors and use thought stopping techniques before engaging in unhealthy eating behaviors. Next appointment with this provider: 07/17/2023 documented in this encounter [facility] Work Phone: 07-06-2023 History of Presen t illness Narrative Associated Problem(s): Obsessive-compulsive disorder, unspecified Has been able to manage intrusive thoughts better lately. Subjective Video conference visit (Leia.). Patient identity confirmed via name and date of . Potential risks and benefits discussed with patient/guardian, who verbalized consent for telehealth encounter. Patient location: home. Chief Complaint: Bipolar Disorder, Anxiety, and Follow Up HPI 07/06/23: Pt reports mood has been stable since her last appt. Has been more anxious in context of her son's fevers of undetermined origin in recent past. Wasn't able to tolerate 10 mg dose of buspar d/t nausea. She is able to tolerate 5 mg twice daily, so has remained at that dosage, but states she may try taking full 10 mg dose at least one time a day to see if she tolerates that. No current manic/mixed symptoms endorsed. No psychotic symptoms endorsed and denies SI/HI. Got a book on overcoming intrusive thoughts from [employer]. Has been finding this helpful in self-management of OCD/chronic obsessive and intrusive thoughts. 6/26/23: Pt was seen by RN since last appt and at that time, pt was agreeable to increasing dose of buspar for anxiety. She has not yet increased dose and intends to do so this week. Pt reports she has been stable lately, with less intrusive thoughts. No depression and no recent si/sx of abigail or hypomania. Has been able to manage caring for her two little ones with minimal support and is coping well with her infant's severe health issues which require hospitalization frequently. No evidence of impulsive/risk-taking behaviors. Sleep has been adequate lately. No mixed mood symptoms and pt feels that even though her anxiety level is pretty high, she has been managing to cope pretty well. Med adherent and denies side-effects. Denies SI/HI. Thinking about having another baby in a couple of years. Wants to breastfeed with the next one. Wants to begin to plan her medication tx in anticipation of this, so will make this a focus of discussion in future visits. Interim substance use history: Social History Substance and Sexual Activity Drug Use Not Currently Types: opioids, marijuana Comment: When she was 17 she had a problem with marijuana and prescription drug abuse (snorted Xanax and abused pain pills) and she got in trouble at 17 and at 18 she stopped History Smoking Status Never Smokeless Tobacco Never Social History Substance and Sexual Activity Drug Use Not Currently Types: opioids, marijuana Comment: When she was 17 she had a problem with marijuana and prescription drug abuse (snorted Xanax and abused pain pills) and she got in trouble at 17 and at 18 she stopped Meds: Outpatient Medications Prior to Visit Medication Sig Dispense Refill busPIRone (BUSPAR) 10 mg tablet Take 1 Tablet by mouth 2 (two) times daily 60 Tablet 1 lamoTRIgine (LAMICTAL) 150 mg tablet Take 1 Tablet by mouth once daily 30 Tablet 1 risperiDONE (RISPERDAL) 0.5 mg tablet Take 1 Tablet by mouth nightly at bedtime 30 Tablet 1 risperiDONE (RISPERDAL) 1 mg tablet Take 1 Tablet by mouth nightly at bedtime 30 Tablet 1 methylcellulose, laxative, (CITRUCEL) 500 mg tab tab Take 1,000 mg by mouth every 8 (eight) hours as needed omeprazole (PRILOSEC) [address] capsule Take 20 mg by mouth once daily amoxicillin (AMOXIL) 875 mg tablet TAKE 1 TABLET BY MOUTH TWICE DAILY FOR 7 DAYS rimegepant (NURTEC ODT) 75 mg TbDi Take 75 mg by mouth ibuprofen 600 mg tablet Take 600 mg by mouth every 6 (six) hours as needed for pain penicillin V potassium (VEETID) 250 mg tablet Take 500 mg by mouth 4 (four) times daily acetaminophen (TYLENOL) 500 mg tablet ONETOUCH VERIO TEST STRIPS strips No facility-administered medications prior to visit. Objective 05/07/2021 11:05 AM Height 5' 2" (157.5 cm) There is no height or weight on file to calculate BMI. Mental Status Exam Appearance is appropriate for circumstance and neat. as able to visualize on videoconference General Health is generally good. as able to visualize on videoconference Eye Contact is good. as able to visualize on video Motor Activity is unremarkable. as able to visualize on video Speech is unremarkable. Affect is full range and mood-congruent. Reported Mood is neutral/euthymic. Thought Content is unremarkable does not have suicidal ideations, does not have homicidal ideations and does not have delusions. Thought Process is unremarkable. Perception is unremarkable does not have hallucinations. Attention is alert. Demeanor is appropriate for situation. Insight is fair. Judgement is appropriate. Orientation is fully oriented. Memory is grossly intact. MSE Comments: Videoconferencing limited full visualization of facial expressions. Unable to assess gait as pt was seated for session. Data Reviewed (labs, BASIS-24, [facility]IMS, outside records, etc): Lab Results Component Value Date HGBA1C 5.2 06/03/2022 BASIS-24 Clinical Severity - Most Recent Administration Date Administered: 07/15/2023 Domain Subscore & Severity Depression/Functioning 1.33 - Moderate Interpersonal Relationships 1.38 - Moderate Self-Harm 0 - Low Emotional Lability 1.5 - Moderate Psychosis 0 - Low Alcohol/Drug Use 0 - Low BASIS-24 Overall Score 1.07 - Moderate Reference: BASIS-24 Behavior and Symptom Identification Scale: Clinical Cut Scores. Jama Patel (2018). Other: n/a Assessment Safety Risk Assessment: Acute risk for harm to self/others: Low Chronic risk for harm to self/others: Low Plan Risks, benefits, and alternatives were discussed. Patient/guardian understood and agreed with the plan. Reviewed Safety Plan: Call 911 or go to ED if in crisis. Advised of availability of after hours RN by calling main number for [facility]. 1. Generalized anxiety disorder Overview: The intrusive thoughts and obsessions appear to be more consistent with anxiety/OCD presentation than Bipolar Disorder but will continue to monitor these overlapping symptoms and response to medication changes. Given h/o mood switching/poor rxn to SSRI, will plan to maximize mood stabilizing dose of Risperdal if decision is made for trial of SSRI. Orders: - busPIRone (BUSPAR) 10 mg tablet; Take 1 Tablet by mouth 2 (two) times daily, Disp-60 Tablet, R-1 e-Prescribing, Long-term Dispense: 60 Tablet; Refill: 1 2. Bipolar disorder in partial remission, most recent episode unspecified type ([facility]) - lamoTRIgine (LAMICTAL) 150 mg tablet; Take 1 Tablet by mouth once daily, Disp-30 Tablet, R-1 e-Prescribing, Long-term Dispense: 30 Tablet; Refill: 1 - risperiDONE (RISPERDAL) 0.5 mg tablet; Take 1 Tablet by mouth nightly at bedtime, Disp-30 Tablet, R-1 e-Prescribing, Long-term Dispense: 30 Tablet; Refill: 1 - risperiDONE (RISPERDAL) 1 mg tablet; Take 1 Tablet by mouth nightly at bedtime, Disp-30 Tablet, R-1 e-Prescribing, Long-term Dispense: 30 Tablet; Refill: 1 Follow-up: No follow-ups on file. Upcoming Appointments: Appointments for the next 13 months 07/24/2023 12:00 PM COUNSELING [facility] Angela Dinh, MANAGER OF PROGRAM 45 min 07/31/2023 12:00 PM COUNSELING [facility] Crystal Allegra, MANAGER OF PROGRAM 45 min 08/07/2023 12:00 PM COUNSELING [facility]TENDED [facility] Crystal Allegra, MANAGER OF PROGRAM 60 min 08/14/2023 12:00 PM COUNSELING [facility] Angela Dinh, MANAGER OF PROGRAM 60 min 08/24/2023 3:00 PM MEDICATION MANAGEMENT [facility] [id number] NURSE LUCI MON[place]NA 20 min 08/24/2023 3:20 PM MEDICATION MANAGEMENT [facility] Herberth Montana DO 20 min documented in this encounter [facility] Work Phone: 07-06-2023 History of Presen t illness Narrative Reason for visit: Follow Up (Client to speak with nurse and provider for follow up appointment and medication management. ) Rosalva presents prior to their psychiatry provider visit to evaluate medication effectiveness, update medical history, and review overall treatment status. Telephone visit. Patient identity confirmed via name and date of . Potential risks and benefits discussed with patient/guardian, who verbalized consent for telehealth encounter. Patient location: home. Subjective Interval history and patient concerns: Patient reports compliance with medications and denies any side effects. Patient endorses anxiety and denies any depression symptoms. Patient denies any mood swings and irritability and reports no issues related to sleep and appetite. Patient denies any suicidal / homicidal ideations. Current Outpatient Medications Medication Instructions acetaminophen (TYLENOL) 500 mg tablet No dose, route, or frequency recorded. amoxicillin (AMOXIL) 875 mg tablet TAKE 1 TABLET BY MOUTH TWICE DAILY FOR 7 DAYS busPIRone (BUSPAR) 10 mg, oral, 2 TIMES DAILY CitruceL 1,000 mg, oral, Every 8 hours PRN ibuprofen 600 mg, oral, Every 6 hours PRN, for pain lamoTRIgine (LAMICTAL) 150 mg, oral, Daily Nurtec ODT 75 mg, oral omeprazole (PRILOSEC) 20 mg, oral, Daily ONETOUCH VERIO TEST STRIPS strips No dose, route, or frequency recorded. penicillin V (VEETID) 500 mg, oral, 4 times daily risperiDONE (RISPERDAL) 0.5 mg, oral, NIGHTLY risperiDONE (RISPERDAL) 1 mg, oral, NIGHTLY Reported medication adherence: Full Reported medication side effects: None Reported New medical problems or history: None Reported Objective Vitals not currently . Mental Status Exam: Behavior: generally relaxed and engaged, cooperative Speech: unremarkable Mood: happy Thought content: unremarkable Perception: unremarkable Additional objective data: Patient is calm and cooperative. Assessment Provider diagnosis and treatment plan reviewed. F41.1 Generalized anxiety disorder (primary encounter diagnosis) F31.61 Bipolar disorder, current episode mixed, mild ([facility]) F42.9 Obsessive-compulsive disorder, unspecified type Risk Assessment: Acute risk for harm to self/others: Low Plan Verified patient medications and allergies; updated patient medical history in medical record. Provided report to Dr. Montana regarding patient concerns and status. Maintain follow up appointments as scheduled. Upcoming appointments: Appointments for the next 13 months 07/06/2023 1:20 PM MEDICATION MANAGEMENT [facility] Herberth Montana, DO 20 min 07/10/2023 1:00 PM COUNSELING [facility] Angela Dinh, MANAGER OF PROGRAM 45 min 07/17/2023 12:00 PM COUNSELING [facility] Angela Dinh, MANAGER OF PROGRAM 45 min 07/24/2023 12:00 PM COUNSELING [facility] Angela Dinh, MANAGER OF PROGRAM 45 min 07/31/2023 12:00 PM COUNSELING [facility] Angela Dinh, MANAGER OF PROGRAM 45 min documented in this encounter [facility] Work Phone: 07-02-2023 History of Presen t illness Narrative Reason for visit: Individual Counseling Video conference visit (Leia.). Patient identity confirmed via name and date of . Potential risks and benefits discussed with patient/guardian, who verbalized consent for telehealth encounter. Patient location: other: CL was in car at [employer] [facility] . Subjective CL stated having constant headache and not feeling well recently. CL stated being referred to ENT. Cl expressed having concerns about son;s health and chronic kidney disease. CL stated deciding wanting to home school children and looking for resources. CL expressed having internal conflict about dynamics of relationship and not feeling happy most days. Objective CL was engaged and alert. CL reflected on parental skills and role in home. Mental Status Exam: Appearance: appropriate Behavior: generally relaxed and engaged, cooperative Speech: unremarkable Mood: neutral Affect: appropriate for circumstance Thought content: unremarkable Perception: unremarkable Insight: appropriate Judgment: appropriate Assessment TH asked open ended questions about recent symptoms and being able to manage symptoms by attending all dr oswaldo. TH validated CL feelings and provided support. TH affirmed cL ability to start applying boundaries with children and being able to see difference in behaviors. TH educated and normalized children's behaviors. TH explored being mindful about own experiences with trauma and projecting unhealthy feelings. TH explored using compassionate thinking when negative thoughts are present about parental role. TH explored internal conflict within relationship and feelings of having limited options. The following goals were addressed today: "I know it will never go away but I want to get better coping skills to manage" and "I want to resolve my own trauma and not project my feelings" Next Care Plan Review Date: 05/15/2024 F42.9 Obsessive-compulsive disorder, unspecified type (primary encounter diagnosis) F43.10 Post traumatic stress disorder Functional Status: Moderate Improvement Therapeutic Intervention(s) Applied: Reflective listening and reassurance and Psychoeducation Acute risk for harm to self/others: Low C-SSRS Plan CL will work on self care and using compassionate thinking. CL will complete "are you self compassionate" and explore at next appt. Next appointment with this provider: 07/10/23 documented in this encounter [facility] Work Phone: 07-01-2023 History of Presen t illness Narrative Chief Complaint Patient presents with: Sinus Problem I have communicated my name and active licensure. The patient's identity and physical location were verified at the time of this visit. Either the patient or their legal community health program representative has been informed of the risks and benefits of -- and alternatives to -- treatment through a remote evaluation and consents to proceed with the evaluation remotely. KIANNA Huang is a 33 year old female who presents here today for Evaluation of possible sinus infection. Patient complaining of 1 week of nasal congestion, sneezing, maxillary sinus pain, headache, dry cough, chest pain with cough or deep inspiration, sore throat. Treating symptoms with cough drops, drinking tea, lemon/honey remedy OTC. Denies fever, lymphadenopathy, myalgias, fatigue, new loss of taste/smell, nausea, vomiting, diarrhea. No recent sick contacts and has not tested for COVID. Symptoms worsening over the last week. Denies possibility of , has IUD in place. Past medical history, appointments, medications, allergies reviewed. Previous Medical History PAST MEDICAL HISTORY Diagnosis Date Endometriosis 10/26/2014 never had diagnostic lap to confirm, patient did not want surgery Gestational diabetes mellitus (GDM) affecting second 05/25/2022 Infertility, female Migraine without aura and without status migrainosus, not intractable 07/18/2019 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HCC) 08/27/2015 Panic disorder without agoraphobia PMH - PAST MEDICAL HISTORY OF color vision normal PMH - PAST MEDICAL HISTORY OF "vascular disease" 01/2002 PMH - PAST MEDICAL HISTORY OF wearing glasses and broke ankle at age 3, wrist fracture depression Previous Surgical History PAST SURGICAL HISTORY Procedure Laterality Date 2D ECHO COMPLETE INP 01/03/2015 EF=67%, WNL SNGL 07/22/2022 Family History FAMILY HISTORY Problem Relation Age of Onset Asthma Mother Psychiatry Mother Bi-Polar Hypertension Maternal Grandmother Heart Maternal Grandfather triple by pass heart diagnosed in Stroke Paternal Grandmother Cancer Paternal Grandmother Heart Paternal Grandfather heart attack. . Emphysema Paternal Grandfather Diabetes Other maternal side Patient Allergies ALLERGIES Allergen Reactions Onion GI Upset Adhesive Tape (Rita* Rash, Itching Patient reports unable to tolerate band-aids after a procedure. She noted redness and itching at site of band aid. Mosquitos Swelling Phenergan [Prometha* GI Upset Sunscreen Rash Tingle tanning lotion Zyrtec [Cetirizine * Mental Status Change Made her very drowsy, Current Medications Current Outpatient Medications on File Prior to Visit Medication Sig busPIRone (BUSPAR) 5 mg tablet Take 1 tablet by mouth every 12 hours 6am/6pm. rimegepant (NURTEC ODT) 75 mg disintegrating tablet Take 1 tablet by mouth once daily as needed (migraine). Methylcellulose, Laxative, (CITRUCEL) 500 mg tab Take 2 tablets by mouth three times daily as needed. lamoTRIgine (LAMICTAL) 150 mg tablet Take 1 tablet by mouth once daily. risperiDONE (RISPERDAL) 1 mg tablet Take 1 tablet by mouth daily at bedtime. No current facility-administered medications on file prior to visit. Social History Social History Tobacco Use Smoking status: Never Smokeless tobacco: Never Tobacco comments: Pt denies Vaping Use Vaping Use: Never used Substance Use Topics Alcohol use: No Drug use: No Comment: Pt denies Review of Symptoms REVIEW OF SYSTEMS See HPI EXAM: LMP (LMP Unknown) General Appearance: Well appearing, alert, in no acute distress, well-hydrated, well nourished. Skin: Skin color, texture, turgor normal, no suspicious rashes or lesions. Nose/Sinuses: Patient reports maxillary sinus TTP, right worse than left. Oropharynx: Negative findings: lips normal without lesions, teeth intact, non-carious, tongue midline and normal, soft palate, uvula, and tonsils normal. Lungs: Able to talk in complete sentences without cough or audible wheezing. Health Maintenance List HPV VACCINE(3 - 3-dose series) due on 03/25/2008 HPV TESTING Never done DEPRESSION ASSESSMENT Never done COVID-19 VACCINE(1) due on 01/28/2024 INFLUENZA(1) due on 07/24/2023 PAP TESTING due on 09/17/2025 DTAP,TDAP,TD(9 - Td or Tdap) due on 06/03/2032 HEPATITIS B Completed HEPATITIS C SCREENING Completed HIV SCREENING Completed ASSESSMENT/PLAN: 1. Bacterial sinusitis - ICD9: 473.9, 041.9, ICD10: J32.9, B96.89 - Will begin treatment with Augmentin 875 mg PO BID for 10 days - Supportive care with plenty of fluids, rest, and analgesia prn. - Follow up in one week if symptoms persist or worsen. - AMOXICILLIN 875 MG-POTASSIUM CLAVULANATE 125 MG TABLET I spent a total of 15 minutes on the date of the service which included preparing to see the patient, [id number] patient care, completing clinical documentation, obtaining and/or reviewing separately obtained history, performing a medically appropriate examination, counseling and educating the patient/family/caregiver, and ordering medications, tests, or procedures. Sabina Barrientos MD documented in this encounter [facility] 06-25-2023 History of Presen t illness Narrative Reason for visit: Individual Counseling Video conference visit (Leia.). Patient identity confirmed via name and date of . Potential risks and benefits discussed with patient/guardian, who verbalized consent for telehealth encounter. Patient location: other: Cl was at Aunt's house out of town during session. Subjective CL expressed things have been going well since last visit. CL reports feeling down about weight gain after last . CL stated wanting to work on creating healthier lifestyle options and had been coordinating with a friend to develop better options for self. CL stated having concerns for toddlers behaviors with younger child due to scratching face and hitting. 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 Objective CL was engaged and alert. Mental Status Exam: Appearance: appropriate Behavior: generally relaxed and engaged, cooperative Speech: unremarkable Mood: neutral Affect: appropriate for circumstance Thought content: unremarkable Perception: unremarkable Insight: appropriate Judgment: appropriate Assessment TH and cl explored concerns about daughters behaviors. TH normalized toddler behaviors and eduacted about developmental normalcies. TH suggested to talk to undercover agent for further concerns. TH validated CL feelings about home schooling and wanting to provide safe environment. TH asked CL to explore making personal boundaries with self to create healthy parent/child relationship. TH educated about unhealthy co-dependencies and effects into adulthood. TH and CL explored pro's of developing structured environment using comfortable boundaries. TH discussed importance of using professional medical information and being mindful of using social media for information. The following goals were addressed today: "I know it will never go away but I want to get better coping skills to manage" and I will practice self-care daily to decrease and prevent anxiety. Next Care Plan Review Date: 05/15/2024 F41.1 Generalized anxiety disorder (primary encounter diagnosis) F31.63 Bipolar disorder, current episode mixed, severe, without psychotic features ([facility]) Functional Status: Minimal Improvement Therapeutic Intervention(s) Applied: Reflective listening and reassurance and Psychoeducation Acute risk for harm to self/others: Low C-SSRS Plan CL will limit social media outlets for information and refer to professional medical resources for information. Next appointment with this provider: 07/02/2023 documented in this encounter [facility] Work Phone: 06-09-2023 Instructions Jaja Moss APRN.[place] - 06/09/2023 1:31 PM EDT - we will apply for Botox for Chronic Migraine - continue nurtec as needed - to break current headache cycle: toradol 1 tablet four times a day for 5 days OR if the headache breaks for 24 hours you can stop it documented in this encounter [facility] 06-09-2023 History of Presen t illness Narrative [facility] - Follow up Visit Last Visit: 10/28/2022, Jaja Moss APRN.[employer]ER OPERATOR Accompanied by: Self Primary Problem List: ACTIVE PROBLEM LIST Mild Mixed Bipolar I Disorder (Hcc) Migraine Without Aura and Without Status Migrainosus, Not Intractable History of Drug Use Panic Disorder Without Agoraphobia Anxiety State Adjustment Disorder With Mixed Anxiety and Depressed Mood Uti (Urinary Tract Infection) During , Third Trimester Gestational Diabetes Mellitus (Gdm) Affecting Second Pyelectasis of Fetus On Ultrasound Delivery By Section for Breech Presentation Chief Complaint: Headache Impression and Plan from last visit: Rosalva Huang is a 32 year old year old female, with a history significant of vertigo/disequilibrium, BPD, panic disorder, + CHATO/anti-centromere AB, and migraine without aura presenting today to discuss ongoing migraine headaches now that she is no longer and not . She has an IUD for contraceptive. She has headaches that are long in duration and has not tolerated triptans in the past. We will trial nurtec as a rescue to see if this will decrease headaches lasting multiple days prior to starting a new preventative medication. I suspect if headaches are treatable she will have less overall headache days. We will also break her current migraine cycle. Deferred nerve blocks and TPIs since they were not effective last time. We did discuss lightheadedness and confusion and we will complete an autonomic workup since she does have issues with presyncope. She has never had a TILT test and this was ordered today. She had a previous MRI and MRA brain in 2020 in response to exertional headaches which were unremarkable. I suspect worsening migraines is playing a role in lightheadedness as well - if no improvement will complete further neuro-imaging. Her neurological examination is essentially normal at this visit. ICHD-3 Diagnosis: Episodic Migraine We will get a precert for an Oral Calcitonin Gene-Related Peptide Receptor Antagonist (GEPANT) Rimegepant for the rescue treatment of episodic migraine. This patient meets AHS criteria for treatment of migraine with an oral small molecule CGRP antagonist GEPANT. The FDA has approved GEPANTS for the treatment of migraine. Specifically, the patient has 12 headaches per month, lasting 4 or more hours/day associated with photophobia, phonophobia, nausea, vomiting, lightheaded for three or more months. Medication overuse headache has been ruled out.Patient will not use with another GEPANT. The patient has tried and failed the following : Anti-Migraine Rizatriptan (Maxalt) Sumatriptan (Imitrex, Sumavel) Analgesic Diclofenac (Voltaren, Cataflam, Cambia) Hydrocodone/Acetaminophen (Vicodin, [employer]) PLAN: HEADACHE MANAGEMENT: (You are the primary guardian of your health and headache. Keep track of all medications: This includes the reason for use, side effects and benefits.) - TILT table test - if no improvement in lightheadedness will do further neuro-imaging MEDICATION TREATMENT: Medications to Start Taking rimegepant (NURTEC ODT) 75 mg disintegrating tablet Take 1 tablet by mouth once daily as needed (migraine). keTORolac (TORADOL) 10 mg tablet Take 1 tablet by mouth four times daily for 5 days. Take with food Interval Headache Hx: Headaches have been horrible over the last few months. She will have some days that she feels a light headache but then will normally become a migraine. Had another eye exam due to eye pain: saw some slightly elevated blood vessels, but nothing of concern and said it was her normal anatomy. Migraines tend to come when she increases her blood pressure/exertion (sex, running, yoga) Has a feeling when she feels like she gets hit in the head which jars her. She plans to have another baby in December of 2024, currently has an IUD for control. Has had cosmetic Botox before and tolerated the medication without any side effects besides some bruising. Is interesting in trying for chronic migraines. Headache 1 Location: frontal and retro-orbital (R > L) Quality/Description: throbbing Associated Symptoms: Photophobia: yes Phonophobia: yes Nausea: yes Vomiting: yes Other symptoms: lightheadedness (seeing spots/vision went black) Worse with activity: yes Number of migraine headache days/month: 28 Migraine Severity: 4 - 8.5/10. Number of NON-migraine headache days/month: 0 Total Number of headache days/month: 28 Duration of headaches with treatment: Duration of attacks with treatment: without medication up to 5 days, with medication instantly to a few hours. Current preventive treatment: Lamictal (from psychiatry for bipolar) Current abortive treatment: nurtec - works 80% of the time (can take a while to work) Triggers: sex and exertion/exercise Onset of headache to peak: gradual Relieving factors: wet sock across her forehead - not working as well, cold water (hydration), eating, sleep, laying in the bath tub Most common time of day for headache to begin: Most common time of day for headache to begin: noonish. Headache status since the last visit: worse Issues and questions to be addressed: - patient update Medications tried: Prior Therapies Duration of Use Dose Reason for Discontinuation Other Therapies Nerve blocks Analgesic Diclofenac (Voltaren, Cataflam, [place]) Hydrocodone/Acetaminophen (Vicodin, [employer]) Anti-Anxiety Alprazolam (Xanax, Niravam) Diazepam (Valium) Anti-Convulsant Lamotrigine (Lamictal) Topiramate (Topamax, Trokendi XL, Qudexy) Anti-Depressant and Antipsychotic Quetiapine (Seroquel) Antiemetics Ondansetron Promethazine Anti-Migraine Rizatriptan (Maxalt) Sumatriptan (Imitrex, Sumavel) GEPANTS Rimegepant (Nurtec) Supplements CoQ10 Magnesium Riboflavin Other Medications Dexamethasone (Decadron) Methylprednisolone (Medrol) Prednisone Over the Counter Medications Acetaminophen (Tylenol) Ibuprofen (Advil, Motrin) ALLERGIES Allergen Reactions Onion GI Upset Adhesive Tape (Rita* Rash, Itching Patient reports unable to tolerate band-aids after a procedure. She noted redness and itching at site of band aid. Mosquitos Swelling Phenergan [Prometha* GI Upset Sunscreen Rash Tingle tanning lotion Zyrtec [Cetirizine * Mental Status Change Made her very drowsy, HEADACHE SCORES: Headache Questions 12/03/2020 Initial improvement of headache after botox injection at last visit: Not applicable, I did not have a botox injection at my last visit PRN medication usage in the last month: 0 Patient impression of improvement since last visit: Not applicable, this is my first visit HIT-6 12/03/2020 HIT-6 63 (Severe impact) NIKKIE - 2/7 SCORES 12/03/2020 NIKKIE-2 Score 1 PHQ-9 12/03/2020 Score 4 MRI Head/Brain - Last 2 Impressions MRI BRAIN WO IVCON Exam End: 01/22/2021 8:11 PM (Final result) Impression: IMPRESSION: 1. No acute intracranial findings. No discrete etiology for headaches is identified. 2. Patent intracranial circulation. No aneurysm is identified.... MRI BRAIN WO CONTRAST Collected: 01/16/2015 2:29 PM (Final result) MRA Head and/or Neck - Last 2 Impressions MRA BRAIN WO IVCON Exam End: 01/22/2021 8:11 PM (Final result) Impression: IMPRESSION: 1. No acute intracranial findings. No discrete etiology for headaches is identified. 2. Patent intracranial circulation. No aneurysm is identified. Beauty School Instructor: ZACHARY Transcribe Date/Time: Jan 22 2021 8:29P Dictated by : MARY ARELLANO MD This examination was interpreted and the report reviewed and electronically signed by: MARY ARELLANO MD on Jan 22 2021 8:37PM EST REVIEW OF SYSTEMS: Review of system : unchanged from the previous visit (sleep patterns, mood, energy, appetite, stress, exercising). PHYSICAL EXAMINATION: Vital Signs: BP 117/70 (BP Site: Right Arm, BP Position: Sitting, BP Cuff Size: Regular Adult) Pulse 73 Temp 36 C (96.8 F) (Skin) LMP (LMP Unknown) OBJECTIVE: General:awake/easily arousable and no acute distress. CV: RRR, normal S1, S2 auscultated, and no murmurs. Lungs: clear to auscultation. Musculoskeletal: No gross joint deformities. , Suboccipital tenderness: Yes L. , Muscle spasms: Yes bilateral . , Trigger Points: cervical paraspinous muscles L>R and trapezius muscles L>R Neurological: Mental Status: Alert, oriented to person, place and time, Follows commands, and Speech fluent and appropriate. Cranial Nerves: PERRL, face symmetric, no facial droop or ptosis, hearing intact to finger rub bilaterally, no dysarthria, palate elevate symmetrically, tongue protrudes midline, and shoulder shrug intact and symmetric. Motor: muscle strength 5/5 both upper and lower extremities, no drift, normal tone. Reflexes: UE and LE reflexes are equal and reactive. Sensation: intact. Gait: normal-based. IMPRESSION: Rosalva Huang is a 33 year old year old female, with a history significant of vertigo/disequilibrium, BPD, panic disorder, + CHATO/anti-centromere AB, and migraine without aura presenting today with continued migraines that are now meeting criteria for chronic migraine. She continues to have worsening triggers with exertion - imaging has been negative. Nurtec is an effective rescue medication. We discussed options for treatmenta nd she has a baseline low BP and cannot use anti-hypertensive medications. She has bipolar disorder and cannot use anti-seizure/anti-anxiety medications. We will proceed with PREEMPT Botox. Her neurological examination is essentially normal at this visit. Diagnosis: Intractable chronic migraine without aura and without status migrainosus (primary encounter diagnosis) We will get a precert for Onabotulinum Toxin A using the PREEMPT protocol. This patient meets FDA criteria for Chronic Migraine without aura, without mention of intractable migraine without mention of status migrainosus. The migraine lasts for greater than 4 hours and has been chronic for more than three months. Onabotulinum Toxin A is FDA approved for chronic migraine. Her headaches are associated with photophobia, phonophobia, nausea, vomiting, lightheaded, worse with movement, relieved in supine position for three or more months. Patient will not use in conjunction with CGRP preventive medications. Medication overuse, alternate diagnosis, confounding psychiatric or social stresses have been ruled out as the cause of headaches. Severity: moderate to severe Quality: throbbing Migraine days a month: 28 Headache days a month: 2 Total Headache days a month: 28 Headache free days a month: 8 The following preventative medications have been tried for at least three months without benefit or discontinued due to side effects: Anti-Convulsant Lamotrigine (Lamictal) Topiramate (Topamax, Trokendi XL, Qudexy) Anti-Depressant and Antipsychotic Quetiapine (Seroquel) Supplements CoQ10 Magnesium Riboflavin The following abortive medications have been tried but require high frequency use which can lead to Medication Overuse Headache: Analgesic Diclofenac (Voltaren, Cataflam, [place]) Hydrocodone/Acetaminophen (Vicodin, [employer]) Anti-Anxiety Alprazolam (Xanax, Niravam) Diazepam (Valium) Anti-Migraine Rizatriptan (Maxalt) Sumatriptan (Imitrex, Sumavel) GEPANTS Rimegepant (Nurtec) Over the Counter Medications Acetaminophen (Tylenol) Ibuprofen (Advil, Motrin) The patient has been assessed for disorders which could contribute to breathing or swallowing difficulty, and there is no contraindication with PREEMPT Botox. There is no documented allergic reaction/hypersensitivity to any botulinum toxin and there is no active infection at proposed injection site Rosalva A Reina has been previously approved for an Oral Calcitonin Gene-Related Peptide Receptor Antagonist (GEPANT) Rimegepant for the treatment of acute migraine. The patient has demonstrated the following: Provider attests patient has had a positive clinical response: Yes Patient will not use with another Oral Calcitonin Gene-Related Peptide Receptor Antagonist (GEPANT): Yes Patient's quality of life and ability to perform ADLs has improved: Yes We suggest the patient continue treatment with GEPANT Rimegepant. The following preventative medications have been tried for three or more months without benefit: Anti-Convulsant Lamotrigine (Lamictal) Topiramate (Topamax, Trokendi XL, Qudexy) Anti-Depressant and Antipsychotic Quetiapine (Seroquel) Supplements CoQ10 Magnesium Riboflavin The following abortive medications have been tried but require high frequency use which can lead to Medication Overuse Headache: Analgesic Diclofenac (Voltaren, Cataflam, [place]) Hydrocodone/Acetaminophen (Vicodin, [employer]) Anti-Anxiety Alprazolam (Xanax, Niravam) Diazepam (Valium) Anti-Migraine Rizatriptan (Maxalt) Sumatriptan (Imitrex, Sumavel) GEPANTS Rimegepant (Nurtec) Over the Counter Medications Acetaminophen (Tylenol) Ibuprofen (Advil, Motrin) PLAN: - apply for Botox for chronic migraine - continue nurtec PRN - for current headache cycle: try toradol 10 mg QID x 5 days with food - next steps: consider CGRP MAB Headache education was done. Discussed lifestyle modification including increased oral hydration, decreased caffeine, exercise and stress management. Discussed treatment options including preventive and acute medications, natural supplements, and infusion therapy. Discussed medication overuse headache and to limit use of acute treatments to no more than 2 days/week or 10 days/month. Discussed medication side effects, adverse reactions and drug interactions. Written educational materials and patient instructions outlining all of the above were given. RESEARCH: None at this time Follow-up: PRN, for BOTOX Level of service: Est level 5 (40-54 min). Time spent 45 min on the day of service, which included preparing to see the patient, [id number] patient care, completing clinical documentation, obtaining and/or reviewing separately obtained history, performing a medically appropriate examination, counseling and educating the patient/family/caregiver, and ordering medications, tests, or procedures. All questions answered. The patient has my contact information and my chart sign up information. Jaja Moss APRN.LOUIS documented in this encounter [facility] 06-02-2023 History of Presen t illness Narrative Reason for visit: Individual Counseling Subjective CL expressed feeling better since last session and feeling decrease in physical symptoms since lowering med dose and not feeling nauseous and being able to eat more. CL stated feeling no depressive symptoms and no abigail. CL stated feeling anxious about starting anti-depressant due to having history of adverse effects. CL stated accepting having OCD and anxiety but wanting to control intrusive thoughts and manage panic attacks. CL stated feeling confident about intrusive thoughts and knowing that "I would never hurt the babies". Objective CL was 20 minutes late to session. CL was engaged and alert. CL shared having no supports and feeling anxious about getting new meds due to childcare options. Mental Status Exam: Appearance: appropriate Behavior: generally relaxed and engaged, cooperative Speech: unremarkable Mood: neutral Affect: appropriate for circumstance Thought content: unremarkable Perception: unremarkable Insight: appropriate Judgment: appropriate Assessment TH asked open ended questions about symptoms and history of meds. TH encouraged CL to discuss meds with psych. TH and CL explored being able to control and manage intrusive thoughts by making appropriate responses and behaviors. TH discussed being comfortable using own pareneting style and not feel obligated to follow cycle of negative parental roles or peer suggestions. The following goals were addressed today: "I know it will never go away but I want to get better coping skills to manage" and "I want to take my medication everday and monitoring symptoms" Next Care Plan Review Date: 05/15/2024 F31.63 Bipolar disorder, current episode mixed, severe, without psychotic features ([facility]) (primary encounter diagnosis) Functional Status: Minimal Improvement Therapeutic Intervention(s) Applied: Symptom management, skill building and Enhancing coping skills Acute risk for harm to self/others: Low CSSR-S Plan CL will complete "overcoming self sabotaging thoughts" and explore at next session. Next appointment with this provider: 06/11/2023 documented in this encounter [employer] Work Phone: 05-29-2023 History of Presen t illness Narrative Reason for visit: Individual Counseling Video conference visit (Leia.). Patient identity confirmed via name and date of . Potential risks and benefits discussed with patient/guardian, who verbalized consent for telehealth encounter. Patient location: home. Subjective CL expressed having significant increase in OCD feelings and intrusive thoughts. 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 CL reported watching social media about ADHD and feeling met criteria for diagnosis. Objective CL was late to session and stated not receiving text reminder. CL was engaged and alert. Mental Status Exam: Appearance: appropriate Behavior: generally relaxed and engaged, cooperative Speech: unremarkable Mood: neutral Affect: appropriate for circumstance Thought content: unremarkable Perception: unremarkable Insight: appropriate Judgment: appropriate Assessment TH explored intrusive thoughts and how to manage feelings. TH asked cL to explore past experiences that could be possible triggers for thoughts. TH asked CL to define healthy relationships and explore current dynamics of relationship with childrens father. TH asked CL to assess own needs. TH educated CL about importance of having more than role of "parent" to feel more well rounded overall. TH discussed using grounding techniques to help control intrusive thoughts by focusing being in the present moment. . TH educated cL about criteria for bi-polar ll disorder and how symptoms can overlap with symptoms of other diagnosis including ADHD. The following goals were addressed today: "I know it will never go away but I want to get better coping skills to manage" and I will identify and balance thoughts that trigger my anxiety (see measurable component below): Next Care Plan Review Date: 05/15/2024 F31.81 Bipolar II disorder ([facility]) (primary encounter diagnosis) Functional Status: No Change Therapeutic Intervention(s) Applied: Symptom management, skill building and Psychoeducation Acute risk for harm to self/others: Low CSSR-S Plan CL will work on HW for intrusive thoughts sent via mail. Next appointment with this provider: 06/02/2023 documented in this encounter [facility] Work Phone: 05-29-2023 History of Presen t illness Narrative Registered Nurse Visit 05/29/2023 11:00 AM Telehealth Appointment? Telephone Telephone Consent Telephone visit. Patient identity confirmed via name and date of . Potential risks and benefits discussed with patient/guardian, who verbalized consent for telehealth encounter. Reason For Visit Health maintenance ("care gap") screening, assessment, education, and referral. Interval History and Patient Concerns CLient reports that when she takes a 10mg tab of buspar it makes her lightheaded and nauseated with vomiting. She returned to Buspar 5 mg twice daily and is able to tolerate that dose. Reports she has OCD thoughts that pop into her head and get stuck. They are violent and negative in nature. She is able to visualize good outcomes that help those thoughts subside somewhat, but overall her anxiety is higher with them. Denies thoughts of self harm or harming others. Denies depression or manic symptoms. Reports she feels pretty even now. Denies hallucinations or delusional thoughts. Some triggers of these thoughts seem to relate to news events she sees on tv regarding kids. Reports she is managing all care for the kids currently because her aunt is unavailable to help. Medication Adherence Good Side Effects Reported Yes Yes (Comment) lightheaded, nausea and vomiting from 10mg dose of buspar New Medical Problems or History denies Vitals Taken? No COWS Completed? No AIMS Completed? No Nursing Specialty Psychiatry Patient has Narcan? No Reported Mood Euthymic Reported Sleep good Reported Appetite good Hallucinations or Delusions None Reported General Alert;Cooperative Behavior Cooperative;Relaxed and engaged Insight Appropriate Judgment Appropriate Title X Services Was a Title X service provided? No. Assessment and Plan Risk Assessment Acute risk for harm to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 times Thought Process is unremarkable, is goal-directed and is linear. Perception is unremarkable. Attention is alert. Demeanor is appropriate for situation and cooperative. as able to assess via phone call Insight is appropriate. Judgement is appropriate. Orientation is fully oriented. Memory is grossly intact and not formally tested. Data Previously Reviewed (labs, [facility], [facility], outside records, etc): Care Everywhere, outside records and past provider notes reviewed. URINE SCREEN: 04/24/21 utox and [facility] neg EKG on 01/01/2021: NSR and Qtc= 430 ms Assessment and Plan Pt has recently re-established psychiatric services after giving to her son this past fall. Increased risperdal at last visit, which as been well-tolerated and with good response. She reports recent hypomania, but symptoms are mild. Intrusive thoughts have imporved but her anxiety is still high most days. Pt still does not wish to change meds at this time, since she is functioning well and agrees to monitor for increased mood cycling and/or return of hypomanic symptoms. Defer adding SSRI/SNRI or re-challenge with buspar for now but this remains an option (with plan to maximize mood stabilizing medication first, as she has experienced SSRI-induced abigail in the past). 1. Bipolar disorder in partial remission, most recent episode unspecified type ([facility] (Primary) - lamoTRIgine (LAMICTAL) 150 mg tablet; Take 1 Tablet by mouth once daily, Disp-30 Tablet, R-1 e-Prescribing, Long-term Dispense: 30 Tablet; Refill: 1 - risperiDONE (RISPERDAL) 0.5 mg tablet; Take 1 Tablet by mouth nightly at bedtime, Disp-30 Tablet, R-1 e-Prescribing, Long-term Dispense: 30 Tablet; Refill: 1 - risperiDONE (RISPERDAL) 1 mg tablet; Take 1 Tablet by mouth nightly at bedtime, Disp-30 Tablet, R-1 e-Prescribing, Long-term Dispense: 30 Tablet; Refill: 1 Safety Risk Assessment: Acute risk for harm to self/others: Low Chronic risk for harm to self/others: Low to Moderate No SI/HI. no plan/intent to do harm to self/others. No access to firearms. No substance use. Good insight into mental illness. Plan Risks, benefits, and alternatives were discussed. Patient/guardian understood and agreed with the plan. Reviewed Safety Plan: Call 911 or go to ED if in crisis. Advised of availability of after hours RN by calling main number for [facility]. Psychotherapy here at and will also continue interim RN visits for education, assessment and support. Medications: Orders Placed This Encounter Medications lamoTRIgine (LAMICTAL) 150 mg tablet Sig: Take 1 Tablet by mouth once daily Dispense: 30 Tablet Refill: 1 risperiDONE (RISPERDAL) 0.5 mg tablet Sig: Take 1 Tablet by mouth nightly at bedtime Dispense: 30 Tablet Refill: 1 risperiDONE (RISPERDAL) 1 mg tablet Sig: Take 1 Tablet by mouth nightly at bedtime Dispense: 30 Tablet Refill: 1 Labs: No orders of the defined types were placed in this encounter. Referrals: No orders of the defined types were placed in this encounter. Follow-up: Appointments for the next 13 months 02/20/2023 9:00 AM NURSE VISIT SHORT [facility] Tessa Dill RN 20 min 03/16/2023 3:20 PM MEDICATION MANAGEMENT [facility] Herberth Montana DO 40 min documented in this encounter [employer] Phone: 02-02-2023 History of Presen t illness Narrative Reason for visit: Follow Up Rosalva presents prior to their psychiatry provider visit to evaluate medication effectiveness, update medical history, and review overall treatment status. Telephone visit. Patient identity confirmed via name and date of . Potential risks and benefits discussed with patient/guardian, who verbalized consent for telehealth encounter. Patient location: home. Subjective Interval history and patient concerns: No recent hosp or ER visits. Sleep is good, appetite also. 22 month old and a 7 month old children. 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 Minimal support system support. They lived with aunt, but now aunt lives with her . Aunt comes over 1 day weekly so client can run errands. For the next 3 weeks, client cant have anyone come into the house, prior to scheduled surgery. February 24 is surgery, kidney disorder causes urine backup. Client's anxiety has been off the charts she reports. Her son has been in and out of the hospitals but client did not know that things were as bad as they were regarding his kidney issue. Overwhelmed recently. No s/I, h/I, plan or intent. Not depressed but very anxious. Current Outpatient Medications Medication Instructions acetaminophen (TYLENOL) 500 mg tablet No dose, route, or frequency recorded. amoxicillin (AMOXIL) 875 mg tablet TAKE 1 TABLET BY MOUTH TWICE DAILY FOR 7 DAYS CitruceL 1,000 mg, oral, EVERY 8 HOURS PRN ibuprofen 600 mg, oral, EVERY 6 HOURS PRN, for pain lamoTRIgine (LAMICTAL) 150 mg, oral, DAILY Nurtec ODT 75 mg, oral omeprazole (PRILOSEC) 20 mg, oral, DAILY ONETOUCH VERIO TEST STRIPS strips No dose, route, or frequency recorded. penicillin V (VEETID) 500 mg, oral, 4 TIMES DAILY VITAMIN 27 mg iron- 0.8 mg tab No dose, route, or frequency recorded. risperiDONE (RISPERDAL) 0.5 mg, oral, EVERY EVENING, With 1 mg tablet for total 1.5 mg dose risperiDONE (RISPERDAL) 1 mg, oral, NIGHTLY, With a 0.5 mg tablet for total of 1.5 mg daily dose Reported medication adherence: full Reported medication side effects: none New medical problems or history: none Objective Vitals not currently . Mental Status Exam: Behavior: cooperative Speech: unremarkable Mood: nervous, anxious Affect: appropriate for circumstance Thought content: unremarkable Perception: unremarkable Assessment Provider diagnosis and treatment plan reviewed. F31.63 Bipolar disorder, current episode mixed, severe, without psychotic features ([facility] (primary encounter diagnosis) Risk Assessment: Acute risk for harm to self/others: Low Plan Verified patient medications and allergies; updated patient medical history in medical record. Provided report to Dr Montana regarding patient concerns and status. Upcoming appointments: Appointments for the next 13 months 02/02/2023 3:00 PM MEDICATION MANAGEMENT [facility] Herberth Montana, DO 40 min documented in this encounter [facility] Phone: 01-27-2023 History of Presen t illness Narrative Pt. Tolerated Hepatitis B Vaccine well, no adverse reaction, no swelling,bruising, or redness at the injection site. Images from the original note were not included. Beakh King [facility] Internal Medicine OUTPATIENT VISIT DATE: January 27, 2023 New Patient Visit CC: Establish care Review of history: Mole on back: Presents for ~6 months as far as she knows Getting bigger Started oozing fluid ~3 months ago, sometimes painful Unsure what color it is Sometimes warm to the touch Clear fluid Very very itchy Foot concern: Small bumps on bottom of R foot. Not itchy. Present on base of 1st MTP Not a rash - warts vs something else Chest pain: Patient states that since she had her last baby, she has been having pain in the mid-chest that can last from an hour to half a day. It is worse in the morning and tends to subside by the afternoon. Not associated with exertion, palpitations or shortness of breath. She states she was having the chest pain during ER visit-reviewed EKG from that time which showed normal sinus rhythm. She also has nausea when it happens. She did have severe acid reflux during her pregnancies but had regurgitation of undigested food at that time, and did not have the chest pain. She is unsure if there is any relation of this chest pain to food, she eats very sporadically due to having to to take care of the children. PMH: no chronic medical problems Migraines - takes nurtec daily, follows w/[facility] Bipolar disorder - follows w/psychiatry Surgical hx: x1 Meds: Medications reviewed and updated in [employer]. OTC supplements/herbals: none Allergies: Reviewed and upated Social: Alcohol: none Tobacco/nicotine use: never smoked cigarettes Vaping/E-cigarettes: No Drugs: There is no history of recreational substance use. Sexual History: sexually active w/male partner Occupation: [employer] Family hx: Patient does not know much about her family history, as she was not raised by her biological parents. Diet/exercise: Chasing after two children, aged 7 months and 22 months Health maintenance: Pap smear next due 08/2023 Declines COVID or flu Pap last done 08/2020 - next due 08/2023 Agreeable to hepatitis B booster Health maintenance: COVID-19 VACCINE(1) Never done HEPATITIS B(3 of 3 - 3-dose series) due on 09/15/2007 HPV TESTING Never done INFLUENZA(1) Never done DEPRESSION ASSESSMENT Never done Review of systems: Positives are noted in bold, all else are negative PAIN ASSESSMENT: Negative for pain, history of chronic pain, or current treatment for a chronic pain condition. GENERAL: No weight loss, malaise or fevers RESPIRATORY: Negative for cough or shortness of breath CARDIOVASCULAR: Negative for chest pain, leg swelling, or palpitations GI: No nausea, vomiting, constipation or diarrhea : No history of dysuria, frequency or incontinence MUSCULOSKELETAL: Negative for joint pain or swelling, back pain or muscle pain NEURO: Negative for numbness/tingling, dizziness/lightheadedness Allergies: ALLERGIES Allergen Reactions Chocolate Rash Caffeine Rash Melatonin Shortness of Breath Onion GI Upset Adhesive Tape (Rita* Rash, Itching Patient reports unable to tolerate band-aids after a procedure. She noted redness and itching at site of band aid. Mosquitos Swelling Phenergan [Prometha* GI Upset Sunscreen Rash Tingle tanning lotion Zyrtec [Cetirizine * Other: See Comments Made her very drowsy, Medications: rimegepant (NURTEC ODT) 75 mg disintegrating tablet, Take 1 tablet by mouth once daily as needed (migraine)., Disp: 16 tablet, Rfl: 3 lamoTRIgine (LAMICTAL) 150 mg tablet, Take 1 tablet by mouth once daily., Disp: 30 tablet, Rfl: 0 risperiDONE (RISPERDAL) 1 mg tablet, Take 1 tablet by mouth daily at bedtime., Disp: 30 tablet, Rfl: 0 Social History: Social History Tobacco Use Smoking status: Never Smokeless tobacco: Never Tobacco comments: Pt denies Vaping Use Vaping Use: Never used Substance Use Topics Alcohol use: No Drug use: No Comment: Pt denies Family History: Family History Problem Relation Age of Onset Asthma Mother Psychiatry Mother Bi-Polar Hypertension Maternal Grandmother Heart Maternal Grandfather triple by pass heart diagnosed in ' Stroke Paternal Grandmother Cancer Paternal Grandmother Heart Paternal Grandfather heart attack. . Emphysema Paternal Grandfather Diabetes Other maternal side Past Surgical History: PAST SURGICAL HISTORY Procedure Laterality Date 2D ECHO COMPLETE INP 01/03/2015 EF=67%, WNL SNGL 07/22/2022 Objective: BP 102/63 (BP Site: Left Arm, BP Position: Sitting, BP Cuff Size: Regular Adult) Pulse 72 Resp 18 Wt 70.3 kg (155 lb) LMP (LMP Unknown) SpO2 96% BMI 28.35 kg/m BP w/Orthostatic Vitals Date and Time Orthostatic BP Orthostatic Pulse BP Pulse BP Position BP Site BP Cuff Size 01/27/23 1306 -- -- 102/63 72 Sitting Left Arm Regular Adult Peak Flow Date and Time PF Resp 01/27/23 1306 -- 18 PHYSICAL EXAMINATION: General appearance: Well appearing, alert, in no acute distress, well-hydrated, well nourished. Skin: On the right shoulder, there is a small raised nina papule, with erythema of the surrounding skin. There is no border irregularity or color variegation Head: Normocephalic, no masses, lesions, tenderness or abnormalities Eyes: Anicteric sclera. Pupils are equally round and reactive to light. Extraocular movements are intact. Oropharynx: Lips, mucosa, and tongue normal, teeth and gums normal, oropharynx normal Neck: Supple, no adenopathy; thyroid symmetric, normal size, no bruits Back: no pain to palpation Lungs: Lungs clear to auscultation. No wheezing, rhonchi, rales. Heart: RRR without murmur, gallop, or rubs. No ectopy Abdomen: Abdomen soft, non-tender. Bowel sounds normal. No masses, organomegaly Extremities: No deformities, edema, skin discoloration, clubbing or cyanosis. Good capillary refill. MSK: R foot: On the ball of the right medial forefoot, there are 3 round lesions which are raised with central erosion, consistent with either tinea pedis versus plantar warts. Peripheral pulses: Normal Neuro: Gait normal. Labs: I have reviewed any relevant laboratory data. Relevant lab results as noted in HPI. Imaging: I have reviewed any relevant imaging data. Relevant imaging results as noted in HPI. Assessment/Plan: 1. Wellness examination - ICD9: V70.0, ICD10: Z00.00 (primary diagnosis) Pap smear next due 08/2023 Declines COVID or flu Pap last done 08/2020 - next due 08/2023 Agreeable to hepatitis B booster - HEP B VACCINE, 3-DOSE, AGE 20+ YR (ENGERIX-B, RECOMBIVAX HB) 2. Rash of foot - ICD9: 782.1, ICD10: R21 Tinea pedis moccasin distribution vs. Plantar warts - CONSULT TO PODIATRY 3. Nevus - ICD9: 216.9, ICD10: D22.9 Nevus is benign appearance but given that it is itchy and she has simpson type 1 skin, will refer to dermatology. - CONSULT TO DERMATOLOGY 4. Constipation, unspecified constipation type - ICD9: 564.00, ICD10: K59.00 - CITRUCEL 500 MG TABLET 5. Atypical chest pain - ICD9: 786.59, ICD10: R07.89 Atypical chest pain, symptoms are not consistent with cardiac ischemia due to nonexertional nature of symptom, accompanying GI symptoms, and localization of the pain. possible etiology include GERD and Costochondritis/chest wall pain Trial of omeprazole. Patient will let me know if no improvement. - Electrocardiogram: An ECG on December 20 showed NSR - OMEPRAZOLE 20 MG CAPSULE,DELAYED RELEASE Maile Beaver MD [facility] 01/27/2023 1:10 PM documented in this encounter [facility] 01-27-2023 Instructions Maile Beaver MD - 01/27/2023 1:47 PM EST Images from the original note were not included. Please call to schedule with podiatry and dermatology: Call Appointment Center 15/06 Gastroesophageal Reflux Disease (GERD) Heartburn is a burning sensation in the center of your chest that often occurs after you eat, bend over, exercise, and sometimes at night when you are lying down. Approximately one in 10 adults has heartburn at least once a week and one in three monthly. Some women experience heartburn almost daily as a result of increased pressure on the abdomen and hormonal changes. Despite its name, heartburn has nothing to do with your heart. Heartburn symptoms indicate a condition called gastroesophageal reflux disease, or GERD. This fact sheet offers some tips on how to relieve heartburn caused by this condition. What is GERD? When you swallow, food passes down your throat and through your esophagus to your stomach. A muscle called the lower esophageal sphincter controls the opening between the esophagus and the stomach. The muscle remains tightly closed except when you swallow food. When this muscle fails to close, the acid-containing contents of the stomach can travel back up into the esophagus. This backward movement is called reflux. When stomach acid enters the lower part of the esophagus, it can produce a burning sensation, commonly referred to as heartburn. Several factors might explain why this reflux action occurs and might offer some clues for relief. The most important are: The position of your body after eating (An upright posture helps prevent reflux.) The size of the meal (Smaller meals reduce reflux.) The nature of foods you consume (Certain substances that irritate the esophagus or weaken the sphincter can cause reflux.) How is GERD treated? To treat GERD, we recommend the following: Raise the head of your bed by six inches to allow gravity to help keep the stomach's contents in the stomach. (Do not use piles of pillows because this puts your body into a bent position that actually aggravates the condition by increasing pressure on the abdomen.) Eat meals at least three to four hours before lying down, and avoid bedtime snacks. Eat moderate portions of food and smaller meals. Maintain a healthy weight to eliminate unnecessary intra-abdominal pressure caused by extra pounds. Limit consumption of fatty foods, chocolate, peppermint, coffee, tea, melanie, and alcohol - all of which relax the lower esophageal sphincter. Also, avoid tomatoes and citrus fruits or juices, which contribute additional acid that can irritate the esophagus. Give up smoking, which also relaxes the lower esophageal sphincter. Wear loose belts and clothing. What if my GERD and heartburn persist? Many people will get relief from heartburn, and the pressure that goes with esophageal reflux, by following the tips above. Eudl-qrz-xsznpaq liquid antacids can also help in treating occasional heartburn. If your symptoms persist, do not respond to treatment, or occur often, you need to see a doctor for testing and treatment. A visual examination of the esophagus, known as an endoscopy, might be necessary. Sometimes this test shows that the lining of the esophagus is severely inflamed and irritated by stomach acid. This condition, known as esophagitis, might lead to bleeding and difficulty in swallowing. Medical treatment for this condition might be necessary. This usually involves blocking acid production in the stomach. Qgbs-mjg-xblraop medicines, such as Tums , Rolaids , Maalox , Zantac , Tagamet , Prilosec, ,Pepcid , and Axid , can generally relieve esophageal reflux symptoms. Patients with more severe symptoms or those who have been using antacids for more than two weeks should contact their doctors, who can prescribe medicines to control or eliminate acid, such as H2-receptor antagonists and proton pump inhibitors. Only a few people need surgery to correct the disorder. References [employer] [employer]. Acid Reflux Accessed 06/16/2016. [place] [employer]. Gastroesophageal Reflux Disease (GERD) Accessed 06/16/2016. National [place] [employer] and Digestive and Kidney Diseases. Gastroesophageal Reflux (ANTONIO) and Gastroesophageal Reflux Disease (GERD) Accessed 06/16/2016. Copyright [id number] [facility]. All rights reserved This information is provided by the [facility] and is not intended to replace themedical advice of your doctor or health care provider. Please consult your health care provider for advice about a specific medical condition. For additional health information, please contact the Center for Consumer Health Information at the [facility] or toll-free extension [phone]. If you prefer, you may visit [email or web address] or [email or web address]. This document was last reviewed on: 2016 documented in this encounter [facility] 01-06-2023 Instructions Korina Nina APRN.CAGER OPERATOR - 01/06/2023 3:19 PM EST ASSESSMENT/PLAN: 1. Fluid level behind tympanic membrane of both ears - ICD9: 381.4, ICD10: H65.93 (primary diagnosis) 2. Tinnitus of right ear - ICD9: 388.30, ICD10: H93.11 3. Hearing difficulty, bilateral - ICD9: 389.9, ICD10: H91.93 - Supportive care with plenty of fluids, rest, and analgesia prn. - Finish amoxicillin course. Physical exam unremarkable for persistent AOM. Bilateral TMs without redness/exudate. - Please follow-up with ENT (as we discussed) if your symptoms persist, as at that point, evaluation by their specialty service would be warranted. - PREDNISONE 20 MG TABLET - FLUTICASONE PROPIONATE 50 MCG/ACTUATION NASAL SPRAY,SUSPENSION - CONSULT TO ENT If you were prescribed a medication, PLEASE allow the pharmacy 1-2 hours to prepare your prescription. If symptoms do not improve in 3-5 days, contact your Primary Care Provider. If symptoms progressively worsen, report to ER for evaluation. Patient verbalized understanding of plan. Please follow up with Primary Care Provider or with a Specialist if consulted for current condition. Go to the ER immediately if you have any of the following symptoms: Chest pain, shortness of breath, severe headache, high fever, nausea, vomiting, abdominal pain, dizziness/light headedness, feeling like you are going to pass out, weakness, or for any other new or worsening symptoms. documented in this encounter [facility] 01-06-2023 History of Presen t illness Narrative Images from the original note were not included. [facility] Visit Patient Name: Rosalva Huang Primary Care Physician: No primary care provider on file. Service Date: 01/06/2023 Service Time: 2:58 PM Patient presents with: Ear Pain: Rt ear,still can't hear x5 days,Lt ear x2 days SUBJECTIVE: Rosalva is an pleasant otherwise well 32 year old female who is here today for evaluation of symptom(s)/complaint(s) as above.. Symptoms started 01/02/2023 and have persisted. [facility], treated for right sided AOM with amoxicillin. Has been taking amoxicillin as prescribed. Telling me symptoms are worsening. Still cannot hear out of her right ear. Pain and pressure, muffled hearing has now transferred to her left ear as well. Denies fevers or chills. Denies runny nose, congestion, sore throat. Endorses mild nausea without vomiting, or diarrhea. Denies muscle aches or joint aches. Pain is going from her right ear down the right side of her neck. Everyday it is getting worse. Occasional ringing in the right ear. Patient has been taking amoxicillin and ibuprofen with minimal relief of symptoms. The severity is mild and the symptoms are not improving. The patient did not have a similar problem in the last 3 months. The patient did not take any antibiotics in the last 3 months. Patient has not been exposed to known sick contacts. Patient denies recent travel. Pertinent medical history as below: PAST MEDICAL HISTORY Diagnosis Date Endometriosis 10/26/2014 never had diagnostic lap to confirm, patient did not want surgery Gestational diabetes mellitus (GDM) affecting second 05/25/2022 Infertility, female Migraine without aura and without status migrainosus, not intractable 07/18/2019 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HCC) 08/27/2015 Panic disorder without agoraphobia PMH - PAST MEDICAL HISTORY OF color vision normal PMH - PAST MEDICAL HISTORY OF "vascular disease" 01/2002 PMH - PAST MEDICAL HISTORY OF wearing glasses and broke ankle at age 3, wrist fracture depression ALLERGIES Chocolate, Caffeine, Melatonin, Onion, Adhesive Tape (Rosins), Mosquitos, Phenergan [Promethazine Hcl], Sunscreen, and Zyrtec [Cetirizine Hcl] MEDICATIONS Current Outpatient Medications Medication Sig amoxicillin (AMOXIL) 875 mg tablet Take 1 tablet by mouth twice daily for 7 days. rimegepant (NURTEC ODT) 75 mg disintegrating tablet Take 1 tablet by mouth once daily as needed (migraine). lamoTRIgine (LAMICTAL) 150 mg tablet Take 1 tablet by mouth once daily. risperiDONE (RISPERDAL) 1 mg tablet Take 1 tablet by mouth daily at bedtime. No current facility-administered medications for this visit. SOCIAL HISTORY Social History Tobacco Use Smoking status: Never Smokeless tobacco: Never Tobacco comments: Pt denies Vaping Use Vaping Use: Never used Substance Use Topics Alcohol use: No Drug use: No Comment: Pt denies REVIEW OF SYSTEMS Review of Systems Constitutional: Negative for chills, fatigue and fever. HENT: Positive for ear pain. Negative for congestion, rhinorrhea and sore throat. Eyes: Negative for pain, discharge, redness and itching. Respiratory: Negative for cough and shortness of breath. Cardiovascular: Negative for chest pain. Gastrointestinal: Negative for abdominal pain, diarrhea, nausea and vomiting. Genitourinary: Negative for dysuria. Musculoskeletal: Positive for neck pain. Negative for arthralgias and myalgias. Neurological: Negative for headaches. Hematological: Negative for adenopathy. OBJECTIVE: BP 97/58 (BP Site: Left Arm, BP Position: Sitting) Pulse 69 Temp 36.7 C (98.1 F) (Temporal) Resp 16 Wt 69.9 kg (154 lb) LMP (LMP Unknown) SpO2 98% BMI 28.17 kg/m Physical Exam Vitals and nursing note reviewed. Constitutional: General: She is awake. She is not in acute distress. Appearance: Normal appearance. She is well-developed and well-groomed. She is not ill-appearing, toxic-appearing or diaphoretic. HENT: Head: Normocephalic and atraumatic. Right Ear: Hearing and ear canal normal. A middle ear effusion is present. Tympanic membrane is bulging. Tympanic membrane is not erythematous. Left Ear: Hearing and ear canal normal. A middle ear effusion is present. Tympanic membrane is bulging. Tympanic membrane is not erythematous. Nose: Nose normal. No mucosal edema, congestion or rhinorrhea. Right Sinus: No maxillary sinus tenderness or frontal sinus tenderness. Left Sinus: No maxillary sinus tenderness or frontal sinus tenderness. Mouth/Throat: Lips: [place]. Mouth: Mucous membranes are moist. Pharynx: Oropharynx is clear. Uvula midline. No pharyngeal swelling, oropharyngeal exudate, posterior oropharyngeal erythema or uvula swelling. Eyes: General: Lids are normal. Vision grossly intact. Extraocular Movements: Extraocular movements intact. Conjunctiva/sclera: Conjunctivae normal. Pupils: Pupils are equal, round, and reactive to light. Cardiovascular: Rate and Rhythm: Normal rate and regular rhythm. Heart sounds: Normal heart sounds. Pulmonary: Effort: Pulmonary effort is normal. Breath sounds: Normal breath sounds and air entry. Abdominal: General: Abdomen is flat. Bowel sounds are normal. Palpations: Abdomen is soft. Tenderness: There is no abdominal tenderness. Musculoskeletal: Cervical back: No edema, erythema or torticollis. No pain with movement. Neurological: Mental Status: She is alert. Psychiatric: Behavior: Behavior is cooperative. ASSESSMENT/PLAN: 1. Fluid level behind tympanic membrane of both ears - ICD9: 381.4, ICD10: H65.93 (primary diagnosis) 2. Tinnitus of right ear - ICD9: 388.30, ICD10: H93.11 3. Hearing difficulty, bilateral - ICD9: 389.9, ICD10: H91.93 - Supportive care with plenty of fluids, rest, and analgesia prn. - Finish amoxicillin course. Physical exam unremarkable for persistent AOM. Bilateral TMs without redness/exudate. - Please follow-up with ENT (as we discussed) if your symptoms persist, as at that point, evaluation by their specialty service would be warranted. - PREDNISONE 20 MG TABLET - FLUTICASONE PROPIONATE 50 MCG/ACTUATION NASAL SPRAY,SUSPENSION - CONSULT TO ENT If you were prescribed a medication, PLEASE allow the pharmacy 1-2 hours to prepare your prescription. If symptoms do not improve in 3-5 days, contact your Primary Care Provider. If symptoms progressively worsen, report to ER for evaluation. Patient verbalized understanding of plan. Signature: Korina Nina APRN.CNP Date: 01/06/2023 Time: 2:58 PM documented in this encounter [facility] 01-05-2023 History of Presen t illness Narrative Subjective Telephone visit. Patient identity confirmed via name and date of . Potential risks and benefits discussed with patient/guardian, who verbalized consent for telehealth encounter. Patient location: home. Chief Complaint: Per nursing, "Patient denies depression, reports increased anxiety rated 7/10. Patient reports no issues with sleep/appetite. Denies any issues with focusing/concentrating on tasks. Denies SI/HI, AVH. No recent hospitalizations. Patient reports current medication regimen is effective-patient stopped taking Buspar 10 mg due to it causing increased abigail and racing thoughts . Patient voiced no other concerns during today's visit." KIANNA Rosalva Huang is a 32 year old female here today for follow-up med management visit. Pt started the buspar after last visit and states she noticed she was feeling manic. [place] lots of energy, hyperactive, talking more and faster. No delusions, disinhibition/risk-taking, etc. Had more intrusive thoughts and also noticed that she was feeling "loopy" when she was also taking her migraine medicine with the buspar so she didn't increase her dosage past 5 mg and eventually stopped taking it. She also increased the risperdal as recommended and has felt much better with less intrusive thoughts and ntones her depressive sympotms have seemed to resolve entirely. Was able to feel present and happy when playing with her kids for the first time in weeks. She still feels very anxious, but per review of med trials and options, most are not options d/t possibility of causing sedation or manic switch/mood cycling. Thoughts are less racing. Able to focus a bit better. She does have some OCD-type obsessions and compulsions, but has been easily resist them (such as "don't go near Rosita, what if you hurt her" - she will resist the compulsion easily). No hypomanic/manic/mixed mood symptoms endorsed currently. Denies any AVH, no evidence of delusions. She is able to focus. Sleeping well at night. Energy and appetite are reported to be normal. Is adherent with lamotrigine and risperdal and no adverse effects reported. Denies SI/HI. No issues with caring for self/children. No concerns from family/friends.Her son Alexandre, has had a lot of health issues since his , which has been a major stressor, but she is coping quite well with this and feels hopeful about the future. 12/08/22:It has been several months since pt was last seen by this prescriber. Had Pt reports she had been doing pretty well since having her baby until recent weeks. After delivery, she had some mild post- blues ("Very mild") and then mood had been really stable and her mental health "Was really good, the best it had been since I had Rosita." Has had a lot of intrusive fears/thoughts. Example, what if baby falls or toddler accidentally falls or she stumbles when she is carrying the baby. Feels too anxious to let anyone other than her aunt watch the babies and even that is too difficult. Has had some irritability as well. She doesn't even feel comfortable receiving support from friends to help her with childcare. She won't even contemplate having a nanny for even 1-2 d/wk, as was suggested by her . . Has had periodic panic attacks, but is afraid to take anything that could be habit forming or too sedating since she has to be alert to care for her kids. Sleep is not impaired but she is not getting as much as she probably needs d/t having to wake up in the middle of the night and care for her young ones without any support. Pt reports she has been through a lot with her son, Alexandre, who was born with a congenital kidney disease. Has had multiple bladder and kidney infections. He may need to have surgery.This has been stressful for her. Aunt and are supportive, but she is still the main caregiver and has been increasingly feeling overwhelmed/anxious. Denies manic/mixed/psychotic symptoms. Denies significant depressive symptoms. Denies SI/HI. Interim substance use history: History Smoking Status Never Smokeless Tobacco Never Social History Substance and Sexual Activity Alcohol Use Not Currently Comment: has not drank since she was 18 Social History Substance and Sexual Activity Drug Use Not Currently Types: opioids, marijuana Comment: When she was 17 she had a problem with marijuana and prescription drug abuse (snorted Xanax and abused pain pills) and she got in trouble at 17 and at 18 she stopped Meds: Current Outpatient Medications Medication Sig Dispense Refill amoxicillin (AMOXIL) 875 mg tablet TAKE 1 TABLET BY MOUTH TWICE DAILY FOR 7 DAYS lamoTRIgine (LAMICTAL) 150 mg tablet Take 1 Tablet by mouth once daily 30 Tablet 0 risperiDONE (RISPERDAL) 0.5 mg tablet Take 1 Tablet by mouth every evening With 1 mg tablet for total 1.5 mg dose 30 Tablet 0 risperiDONE (RISPERDAL) 1 mg tablet Take 1 Tablet by mouth nightly at bedtime With a 0.5 mg tablet for total of 1.5 mg daily dose 45 Tablet 0 rimegepant (NURTEC ODT) 75 mg TbDi Take 75 mg by mouth ibuprofen 600 mg tablet Take 600 mg by mouth every 6 (six) hours as needed for pain penicillin V potassium (VEETID) 250 mg tablet Take 500 mg by mouth 4 (four) times daily acetaminophen (TYLENOL) 500 mg tablet ONETOUCH VERIO TEST STRIPS strips VITAMIN 27 mg iron- 0.8 mg tab No current facility-administered medications for this visit. Allergies: Caffeine, Chocolate, Melatonin, Adhesive tape, Adhesive tape (rosins), Cetirizine hcl, and [place] PCP: No primary care provider on file. Seen at [facility] reportedly Objective No vitals taken today No data to display Mental Status Exam Appearance. unable to visualize via phone General Health. unable to visualize; phone call Eye Contact. unable to assess; phone call Motor Activity. unable to assess; phone appt Speech is unremarkable. Affect is full range and mood-congruent. as able to assess via phone call Reported Mood is anxious. Thought Content has ruminations does not have suicidal ideations and does not have homicidal ideations. some intrusive thoughts at times Thought Process is unremarkable, is goal-directed and is linear. Perception is unremarkable. Attention is alert. Demeanor is appropriate for situation and cooperative. as able to assess via phone call Insight is appropriate. Judgement is appropriate. Orientation is fully oriented. Memory is grossly intact and not formally tested. Data Previously Reviewed (labs, [facility], [facility], outside records, etc): Care Everywhere, outside records and past provider notes reviewed. URINE SCREEN: 04/24/21 utox and [facility] neg EKG on 01/01/2021: NSR and Qtc= 430 ms Assessment and Plan Pt has recently re-established psychiatric services after giving to her infant son this past fall. Increased risperdal at last visit, which as been well-tolerated and with good response. She reports having had side-effects and possibly manic switch when starting low dose buspar and has since stopped it with good effects. Intrusive thoughts have imporved but her anxiety is still high most days. Defer adding SSRI/SNRI for now but this remains an option (with plan to maximize mood stabilizing medication first before re-challenge, as she has experienced SSRI-induced abigail in past). 1. Bipolar disorder in partial remission, most recent episode unspecified type ([facility]) - lamoTRIgine (LAMICTAL) 150 mg tablet; Take 1 Tablet by mouth once daily, Disp-30 Tablet, R-0 e-Prescribing, Long-term Dispense: 30 Tablet; Refill: 0 - risperiDONE (RISPERDAL) 0.5 mg tablet; Take 1 Tablet by mouth every evening With 1 mg tablet for total 1.5 mg dose, Disp-30 Tablet, R-0 e-Prescribing, Long-term Dispense: 30 Tablet; Refill: 0 - risperiDONE (RISPERDAL) 1 mg tablet; Take 1 Tablet by mouth nightly at bedtime With a 0.5 mg tablet for total of 1.5 mg daily dose, Disp-45 Tablet, R-0 e-Prescribing, Long-term Dispense: 45 Tablet; Refill: 0 Safety Risk Assessment: Acute risk for harm to self/others: Low Chronic risk for harm to self/others: Low to Moderate No SI/HI. no plan/intent to do harm to self/others. No access to firearms. No substance use. Good insight into mental illness. Plan Risks, benefits, and alternatives were discussed. Patient/guardian understood and agreed with the plan. Reviewed Safety Plan: Call 911 or go to ED if in crisis. Advised of availability of after hours RN by calling main number for [facility]. Psychotherapy here at and will also continue interim RN visits for education, assessment and support. Medications: Orders Placed This Encounter Medications lamoTRIgine (LAMICTAL) 150 mg tablet Sig: Take 1 Tablet by mouth once daily Dispense: 30 Tablet Refill: 0 risperiDONE (RISPERDAL) 0.5 mg tablet Sig: Take 1 Tablet by mouth every evening With 1 mg tablet for total 1.5 mg dose Dispense: 30 Tablet Refill: 0 risperiDONE (RISPERDAL) 1 mg tablet Sig: Take 1 Tablet by mouth nightly at bedtime With a 0.5 mg tablet for total of 1.5 mg daily dose Dispense: 45 Tablet Refill: 0 Labs: No orders of the defined types were placed in this encounter. Referrals: No orders of the defined types were placed in this encounter. Follow-up: Appointments for the next 13 months 02/02/2023 3:00 PM MEDICATION MANAGEMENT [facility] Herberth Montana DO 20 min documented in this encounter [employer] Phone: 01-05-2023 History of Presen t illness Narrative Reason for visit: No chief complaint on file. Rosalva presents prior to their psychiatry provider visit to evaluate medication effectiveness, update medical history, and review overall treatment status. Telephone visit. Patient identity confirmed via name and date of . Potential risks and benefits discussed with patient/guardian, who verbalized consent for telehealth encounter. Patient location: home. Subjective Interval history and patient concerns: Patient denies depression, reports increased anxiety rated 7/10. Patient reports no issues with sleep/appetite. Denies any issues with focusing/concentrating on tasks. Denies SI/HI, AVH. No recent hospitalizations. Patient reports current medication regimen is effective-patient stopped taking Buspar 10 mg due to it causing increased abigail and racing thoughts . Patient voiced no other concerns during today's visit. Current Outpatient Medications Medication Instructions acetaminophen (TYLENOL) 500 mg tablet No dose, route, or frequency recorded. busPIRone (BUSPAR) 10 mg, oral, 2 TIMES DAILY, After completing 5 mg tabs ibuprofen 600 mg, oral, EVERY 6 HOURS PRN, for pain lamoTRIgine (LAMICTAL) 150 mg, oral, DAILY Nurtec ODT 75 mg, oral ONETOUCH VERIO TEST STRIPS strips No dose, route, or frequency recorded. penicillin V potassium (VEETID) 500 mg, oral, 4 TIMES DAILY VITAMIN 27 mg iron- 0.8 mg tab No dose, route, or frequency recorded. risperiDONE (RISPERDAL) 1 mg, oral, NIGHTLY, With a 0.5 mg tablet for total of 1.5 mg daily dose risperiDONE (RISPERDAL) 0.5 mg, oral, EVERY EVENING Reported medication adherence: compliant Reported medication side effects: Buspar- increased abigail and racing thoughts New medical problems or history: denies Objective Vitals not currently . Mental Status Exam: Behavior: generally relaxed and engaged, cooperative Speech: unremarkable Mood: neutral Affect: appropriate for circumstance Thought content: unremarkable Perception: unremarkable Assessment Provider diagnosis and treatment plan reviewed. F31.63 Bipolar disorder, current episode mixed, severe, without psychotic features ([facility] (primary encounter diagnosis) Risk Assessment: Acute risk for harm to self/others: Low Plan Verified patient medications and allergies; updated patient medical history in medical record. Provided report to Dr. Montana regarding patient concerns and status. Reviewed Safety Plan: Call 911 or go to ED if in crisis. Advised of availability of after hours RN by calling main number for [facility]. Upcoming appointments: Appointments for the next 13 months 01/05/2023 2:20 PM MEDICATION MANAGEMENT [facility] Kevin Rubén, DO 40 min documented in this encounter [facility] [employer] Phone: 01-03-2023 Instructions Angelic Gan PA-C - 01/03/2023 12:33 PM EST Push fluids [place] diet Follow up in 3-5 days with PCP if symptoms persist or sooner if worsening of symptoms. If any acute change in illness, severe worsening of symptoms, concerning symptom or red flag symptoms as discussed report to nearest Emergency Department Otitis Media What is otitis media? Otitis media is an infection of the middle ear (the space behind the eardrum), caused by bacteria or a virus. Middle ear infections often occur at the same time as a cold, allergies, nose and throat infection, or enlarged adenoids (glands at the top of the throat). Middle ear infections usually clear up without problems or long-term effects. The ear structure and function There are three main parts of the ear: outer, middle, and inner: The outer ear is the opening outside of the body. The middle ear houses delicate bones that aid in hearing. The inner ear holds organs that control hearing and balance. The Eustachian tube regulates air pressure within the middle ear, connecting it to the back of the nose and throat. What are the symptoms of otitis media (middle ear infection)? Ear infections can be painful. Trapped fluid puts pressure on the eardrum, causing it to bulge. Other symptoms include: Ear pain: This symptom is obvious in older children and adults, but for children who cannot yet speak, you should watch for other signs, like irritability or a great deal of crying. Loss of appetite: This may be most noticeable in young children, especially during bottle feedings. Pressure in the middle ear changes as the child swallows, causing more pain and less desire to eat. Irritability: Any kind of continuing pain may cause irritability in children and adults. Poor sleep: Pain may be worse when the child is lying down, as fluid is shifting. Fever: Ear infections can cause temperatures up to 104 F. Drainage from the ear: Yellow, brown, or white fluid that is not earwax may seep from the ear. This may mean that the eardrum has ruptured (broken). Difficulty hearing: Bones of the middle ear connect to the nerves that send electrical signals (as sound) to the brain. Fluid behind the eardrums slows down movement of these electrical signals through the inner ear bones. Who is most likely to get middle ear infections? Middle ear infection is more common in children and is the most common childhood illness (other than a cold). Ear infections occur most often between age 3 months and 3 years, and are common until age 8 years. One-fourth of all children will have repeated ear infections; five to ten percent will develop a hole on the eardrum from fluid pressure. This hole usually heals in one week. Children usually get more ear infections than adults. They usually get more colds and respiratory infections than adults, and the Eustachian tube is shorter and has less of a slope in children than in adults. Other factors that can lead to middle ear infections include the following: Age: Infants and young children are at greater risk for ear infections. Sex: Boys tend to get ear infections more often than girls. Heredity: The tendency to get ear infections can be hereditary (runs in the family). Colds: Having colds often increases the chances of getting an ear infection. Allergies: Allergies cause inflammation (swelling) of the nasal passages and upper respiratory tract, which can cause blockage of the Eustachian tube or enlargement of the adenoids. Chronic illnesses: People with chronic (long-term) illnesses are more likely to develop ear infections, especially patients with immune deficiency and chronic respiratory disease, such as cystic fibrosis and asthma. What are the causes of middle ear infection? Acute otitis media. Allergies, colds, respiratory infections, and inflamed or enlarged adenoids can block the bottom of the Eustachian tube, allowing normally produced fluids to build up in the middle ear. Trapped fluid can become infected by a virus or bacteria, causing pain and swelling of the eardrum. Otitis media with effusion. Symptoms of acute otitis media will disappear, but the fluid may remain. Trapped fluid may cause temporary and mild hearing loss. This is called otitis media with effusion and may last for up to 3 months. How is otitis media diagnosed? When an ear infection is suspected, the doctor or nurse will examine the ear using an instrument called an otoscope. A healthy eardrum will be pinkish goodman in color and translucent (clear). If infection is present, the eardrum may be inflamed, swollen, or red. The doctor may also check the fluid in the middle ear using a pneumatic otoscope, which blows a small amount of air at the eardrum. This should cause the eardrum to move back and forth. The eardrum will not move as easily if there is fluid inside the ear. Another useful diagnostic tool is tympanometry, a test that uses sound and air pressure to check for fluid in the middle ear. (It cannot test hearing.) If needed, the doctor will order a hearing test (performed by an baker head) for a patient who has persistent ear infections to help determine if there is any hearing loss, and how bad it is. How is otitis media treated? Many middle ear infections will get better on their own, while some ear infections need to be treated with an antibiotic. Your doctor will decide if your child needs to be treated with an antibiotic for an ear infection. Permanent damage to the ear or to the hearing is very rare. Treatments include the following: Observation without antibiotics Your doctor may determine that your child has a middle ear infection but does not need to be treated with antibiotics (depending on the age of your child and how severe the infection is). Many ear infections will get better on their own without antibiotic treatment. Your doctor will tell you how long the symptoms will last. Antibiotics Antibiotics, prescribed by your doctor, may be needed to kill the bacteria that are causing the ear infection. Do not forget to take or give it in regular doses until the bottle is empty, even if the pain and fever are gone. Finishing the medicine will keep the ear infection from flaring up again. Follow the instructions on the prescription about proper storage and the proper dose. Use a measuring spoon for liquid antibiotics to be sure that you give the right amount. Call the doctor if fever and pain are not gone within two days of starting the antibiotics. Antibiotics may cause nausea, diarrhea, rashes, or yeast infections, and may also interact with other medications. Rarely, allergic reactions can occur. There is the potential that bacteria will, over time, develop a resistance to frequently used antibiotics. Be sure to tell your doctor about your medical history and any [id number] and prescription medications that you are currently taking. Pain relief Acetaminophen or ibuprofen can help relieve earache or fever until the antibiotic takes effect. These medications usually control the pain within 1 to 2 hours. Earaches tend to hurt more at bedtime. Using a warm compress on the outside of the ear may also help relieve pain. (This is not recommended for infants.) Restrictions The ears do not need to be covered when going outside. Swimming is okay as long as there is no perforation (tear) in the eardrum or drainage from the ear. Air travel or a trip to the mountains is safe, although temporary pain is possible during takeoff and landing. Swallowing fluids, chewing on gum during descent, or having a child suck on a pacifier will help relieve discomfort during air travel. Children can return to school or day care as soon as the fever is gone. Ear infections are not contagious. Myringotomy If fluid remains in the ear for more than 3 months, your doctor may want to insert small metal or plastic tubes through the eardrum to equalize pressure between the middle and outer ear. This outpatient procedure (myringotomy) is usually performed on children and can be done under general anesthesia. The tubes will remain in from 6 to 12 months and normally fall out on their own. The outer ear will need to be kept dry and free of water until the holes have closed completely. After treatment Ear recheck Children should be scheduled for a return appointment 3 to 4 weeks after an ear infection. At that visit, the doctor will examine the eardrum to be certain that the infection is going away. Your doctor may also want to test the child's hearing. Follow-up exams are very important, especially if the infection has caused a hole in the eardrum. Middle ear infections have few complications or long-term effects. It is especially important that children with middle ear infection have appropriate follow-up with their doctors. Possible long-term effects of middle ear infection include: Inner ear infection Scarring of the eardrum Hearing loss Mastoiditis (infection of the skull behind the ear) Meningitis (infection in the tissues around the brain and spinal cord) Speech development problems in children Facial paralysis Call your child's doctor immediately if: Your child develops a stiff neck. You child acts very lethargic (sluggish), responds poorly, or is inconsolable. Call your child's doctor during office hours if: The fever or pain is not gone after your child is diagnosed with an ear infection. You have any questions or concerns. Preventing middle ear infections in adults and children There are ways to help prevent ear infections in children and adults. Often, changing the environment at home is all that is necessary, but sometimes surgery is needed, too. If some of the following precautions apply to you or your child, follow them or talk to your doctor about them. Avoid contact with second-hand tobacco smoke, also known as passive smoking. Passive smoking brings about more infections, and can cause more severe infections. Be sure no one smokes in your home or at a day care. No one should smoke in the house or car, especially when children are present. Control allergies. Inflammation caused by allergies can cause ear infection, especially if you or your child have other allergies, such as eczema. Reduce your child's exposure to colds during the first year of life. Most ear infections start with a cold. If possible, try to delay the use of large day care centers during the first year. Breastfeed your baby during the first 6 to 12 months of life. Antibodies in breast milk reduce the rate of ear infections. Avoid bottle propping. If you bottle feed, hold your baby at a 45-degree angle. Feeding in the horizontal position can cause formula and other fluids to flow back into the Eustachian tubes. Allowing an to hold his or her own bottle also can cause milk to drain into the middle ear. Weaning your baby from a bottle between 9 and 12 months of age will help stop this problem. Watch for mouth breathing or snoring. Constant snoring or breathing through the mouth may be caused by large adenoids. These may contribute to ear infections. An exam by an postal inspector, and even surgery to remove the adenoids (adenoidectomy), may be necessary. Questions to ask your doctor or your child's doctor Should I give my child or myself medication? If so, for how long and at what times of the day? How should I store the medication? Does it need to be refrigerated? When will my child (or I) start to feel better? Do I need to make a follow-up visit? Should I keep my child home from school or daycare? If so, when can she or he return? Should the child be restricted from any activities? If so, which ones? Are there certain foods or liquids to avoid? Which [id number] medications, such as pain relievers, do you recommend? Which symptoms should I report? References National [place] on Deafness and Other Communication Disorders. Ear Infections in Children Accessed 10/23/2015. Centers for Disease Control and Prevention. Get Smart: Know When Antibiotics Work Accessed 10/23/2015. [place] [employer]. Middle Ear Infection (Chronic Otitis Media) and Hearing Loss Accessed 10/23/2015. Copyright 4380-9073 [employer] [facility] [employer] [facility]. All rights reserved documented in this encounter [facility] 01-03-2023 History of Presen t illness Narrative SUBJECTIVE: Rosalva Huang is an 32 year old female who presents with an illness characterized by ear pain, vomiting. Symptoms began 1 day(s) ago and are constant since that time. Still nauseated. No further vomiting since 6 am. PAST MEDICAL HISTORY Diagnosis Date Endometriosis 10/26/2014 never had diagnostic lap to confirm, patient did not want surgery Gestational diabetes mellitus (GDM) affecting second 05/25/2022 Infertility, female Migraine without aura and without status migrainosus, not intractable 07/18/2019 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HCC) 08/27/2015 Panic disorder without agoraphobia PMH - PAST MEDICAL HISTORY OF color vision normal PMH - PAST MEDICAL HISTORY OF "vascular disease" 01/2002 PMH - PAST MEDICAL HISTORY OF wearing glasses and broke ankle at age 3, wrist fracture depression Current Outpatient Medications on File Prior to Visit Medication Sig rimegepant (NURTEC ODT) 75 mg disintegrating tablet Take 1 tablet by mouth once daily as needed (migraine). lamoTRIgine (LAMICTAL) 150 mg tablet Take 1 tablet by mouth once daily. risperiDONE (RISPERDAL) 1 mg tablet Take 1 tablet by mouth daily at bedtime. No current facility-administered medications on file prior to visit. ALLERGIES Allergen Reactions Chocolate Rash Caffeine Rash Melatonin Shortness of Breath Onion GI Upset Adhesive Tape (Rita* Rash, Itching Patient reports unable to tolerate band-aids after a procedure. She noted redness and itching at site of band aid. Mosquitos Swelling Phenergan [Prometha* GI Upset Sunscreen Rash Tingle tanning lotion Zyrtec [Cetirizine * Other: See Comments Made her very drowsy, Social History Tobacco Use Smoking status: Never Smokeless tobacco: Never Tobacco comments: Pt denies Vaping Use Vaping Use: Never used Substance Use Topics Alcohol use: No Drug use: No Comment: Pt denies OBJECTIVE: Blood Pressure 114/53 Pulse 82 Temperature 36.4 C (97.5 F) (Temporal) Respiration 18 Weight 68 kg (150 lb) Last Menstrual Period (LMP Unknown) Oxygen Saturation 98% No Body Mass Index 27.44 kg/m General appearance: Well appearing, alert, in no acute distress, well-hydrated, well nourished. Ears: R TM - erythematous and air/fluid interface, L TM - normal Nose: no erythema or exudate Oropharynx: normal, no erythema Neck: supple Lungs: clear to auscultation Heart: normal, Regular rate and rhythm, no murmurs, clicks, or gallops. ABD: soft BS present. Non tender. No guarding or masses ASSESSMENT/PLAN: 1. Acute otitis media, right - ICD9: 382.9, ICD10: H66.91 (primary diagnosis) - Supportive care with plenty of fluids, rest, and analgesia prn. - AMOXICILLIN 875 MG TABLET 2. Nausea and vomiting, unspecified vomiting type - ICD9: 787.01, ICD10: R11.2 Advance diet slowly. To the ED if unable to keep anything down or not urinating in 8 hours. Angelic Gan PA-C Discussed medication dosage, usage, goals of therapy, and side effects. documented in this encounter [facility] 01-01-2023 History of Presen t illness Narrative Registered Nurse Visit 01/01/2023 10:00 AM Telehealth Appointment? Telephone Telephone Consent Telephone visit. Patient identity confirmed via name and date of . Potential risks and benefits discussed with patient/guardian, who verbalized consent for telehealth encounter. (client driving) Reason For Visit Health maintenance ("care gap") screening, assessment, education, and referral. Interval History and Patient Concerns Client reports the 10mg dose of Buspar was making her "loopy" with her migraine medicine, so she kept dose at 5mg twice daily. She reports she noticed the Buspar was causing increased abigail, increaced racing thoughts, increased intrusive thoughts. So she stopped the buspar completely yesterday. She noticed improvement today. Decreased intrusive thoughts, decreased abigail, decreased racing thoughts. She reports she feels good and much calmer today. Able to manage care for her babies. Denies feeling overwhelmed. Denies hallucinations or delusional thoughts. Anxiety is still high but reports it is better today than it has been. Slept well last night. Mood is good. Medication Adherence Good Side Effects Reported Yes Yes (Comment) buspar increased manic symptoms, intrusive thoughts. New Medical Problems or History denies Vitals Taken? No COWS Completed? No AIMS Completed? No Nursing Specialty Psychiatry Patient has Narcan? No Reported Mood Euthymic Reported Sleep improved last night Reported Appetite good Hallucinations or Delusions None Reported General Alert;Cooperative Behavior Cooperative;Relaxed and engaged Insight Appropriate Judgment Appropriate Title X Services Was a Title X service provided? No. Assessment and Plan Risk Assessment Acute risk for harm to self/others: Moderate 1. Bipolar disorder, current episode mixed, severe, without psychotic features ([facility]) (Primary) 2. Generalized anxiety disorder Overview: The intrusive thoughts and obsessions appear to be more consistent with anxiety/OCD presentation than Bipolar Disorder but will continue to monitor these overlapping symptoms and response to medication changes. Given h/o mood switching/poor rxn to SSRI, will plan to maximize mood stabilizing dose if decision is made for trial of SSRI. Care Planning Additional Plan: Patient education provided this visit: side effects, medication, symptoms Routed encounter note to Dr. [place] Follow up appt. Thursday Hold Buspar for now Call if symptoms worsen Reviewed upcoming appointments: Appointments for the next 13 months 01/05/2023 2:00 PM [facility]URSE V[facility]IT [id number] NURSE LUCI [place] 20 min 01/05/2023 2:20 PM MEDICATION MANAGEMENT [facility] [place], 40 min documented in this encounter [facility] Work Phone: 10-28-2022 Miscellaneous Notes Addressed during visit today. Jaja Moss APRN.CNP October 28, 2022 3:32 PM Patient last seen 07/16/2022. Follow up scheduled 12/30/2022. documented in this encounter [facility] 10-28-2022 Instructions Jaja Moss APRN.CNP - 10/28/2022 3:11 PM EST -- schedule TILT table test -- Nurtec 75 mg ODT is a calcitonin gene-related peptide receptor antagonist indicated for the use of acute migraine treatment. Nurtec can be taken once daily as needed to treat an acute migraine. Nurtec will disolve on or underneath your tongue and should be taken at the first sign of a migraine attack. -- for your current headache try Toradol 10 mg: Take one(1) tablet four (4) times daily for 5 days WITH FOOD! documented in this encounter [facility] 10-28-2022 History of Presen t illness Narrative [facility] - Follow up Visit Last Visit: 07/16/2022, Jaja Moss APRN.CNP Accompanied by: Self Primary Problem List: ACTIVE PROBLEM LIST Mild Mixed Bipolar I Disorder (Hcc) Migraine Without Aura and Without Status Migrainosus, Not Intractable History of Drug Use Panic Disorder Without Agoraphobia Anxiety State Adjustment Disorder With Mixed Anxiety and Depressed Mood Uti (Urinary Tract Infection) During , Third Trimester Gestational Diabetes Mellitus (Gdm) Affecting Second Pyelectasis of Fetus On Ultrasound Delivery By Section for Breech Presentation Chief Complaint: Headache Impression and Plan from last visit: Rosalva Huang is a 32 year old year old female, with a history of significant of vertigo/disequilibrium, BPD, panic disorder, + CHATO/anti-centromere AB, and migraine without aura presenting today for greater occipital nerve blocks with lidocaine as migraine prevention which has been beneficial for her during . She is aware that lidocaine is category B. She notes that she will feel headaches starting but rarely have become full blown. As she will be having a planned next week - we will do the procedure today as changes in hormone levels following can cause worsening of migraine headaches. She would like to have another child in the future but would like to wait. She is considering contraceptive options we will discuss options for prevention/abortive after she delivers. She is not planning on . Her neurological examination is essentially normal at this visit. ICHD-3 Diagnosis: Episodic Migraine PLAN: HEADACHE MANAGEMENT: (You are the primary guardian of your health and headache. Keep track of all medications: This includes the reason for use, side effects and benefits.) MEDICATION TREATMENT: - bilateral greater occipital nerve blocks today(see procedure note) - can consider adding prevention and abortive after (briefly discussed frovatriptan or eletriptan) Interval Headache Hx: Presents today to discuss ongoing headaches. Her son was born 07/22/2022 via section. She was managing headaches during with the use of lidocaine nerve blocks and trigger point injections. Last was 1 week prior to delivery and was not effective. Immediately following her section she had a severe headache with nausea and vomiting. She was also lightheaded. Was told there was a narcotic in the epidural. She had a significant amount of itching. Since delivery she reports increase in lightheaded/pre-syncope episodes and confusion. She did not have a TILT table test which was recommended when she was with her first child. (Seen by cardiology). She describes confusion as having to take time to think through things. Neither lightheadedness or confusion are related to just worsening migraines. Her headaches tend to last 2 - 4 days and she does not have a rescue medication. Her current headache has lasted 4 days. Headache 1 Diagnosis: Episodic Migraine Onset: - headaches came back immediately following her section July 22. Location: frontal and retro-orbital (R > L) Quality/Description: throbbing Associated Symptoms: Photophobia: yes Phonophobia: yes Nausea: yes Vomiting: yes - vomiting with lightheadedness Other symptoms: lightheadedness (denies improvement of headaches with laying down) Worse with activity: yes Number of migraine headache days/month: 12 Migraine Severity: severe. Number of NON-migraine headache days/month: 0 Number of headache free days/month: 18 Duration of headaches with treatment: Duration of attacks with treatment: 2 days up to 4 days. Current preventive treatment: Lamictal (from psychiatry for bipolar) Current abortive treatment: ibuprofen 600 mg (has not been effective), tylenol (has not helped) Triggers: sex (sex in certain positions (start quickly)) Onset of headache to peak: gradual Relieving factors: wet sock across her forehead, dark room, tries to lay down, cold water (hydration), eating, sleep Positional changes: yes - leaning forward, worse with standing up if she has a headache - will not trigger a headache Headache status since the last visit: worse Lightheaded: - started about 1 month after her second baby was born - has a tendency towards passing out when she sees needles - has been more frequent recently - used to only occur in response to triggers - now occurs randomly without known trigger - can last hours - starts off severe (things will go black and feels like she will pass out) - has not had any episodes of syncope - no association with migraine - has had tinnitus (with current migraine - not typical) - denies neck pain - typically BP is on the lower end of normal, does not wear a heart rate tracker - Had a presyncope episode in the bathtub and more episodes of confusion. - can have associated blurred vision Issues and questions to be addressed: - patient update Medications tried: Prior Therapies Duration of Use Dose Reason for Discontinuation Other Therapies Nerve blocks Analgesic Diclofenac (Voltaren, Cataflam, Cambia) Hydrocodone/Acetaminophen (Vicodin, [employer]) Anti-Anxiety Alprazolam (Xanax, Niravam) Diazepam (Valium) Anti-Convulsant Lamotrigine (Lamictal) Topiramate (Topamax, Trokendi XL, Qudexy) Anti-Depressant and Antipsychotic Quetiapine (Seroquel) Antiemetics Ondansetron Promethazine Anti-Migraine Rizatriptan (Maxalt) Sumatriptan (Imitrex, Sumavel) Supplements CoQ10 Magnesium Riboflavin Other Medications Dexamethasone (Decadron) Methylprednisolone (Medrol) Prednisone Over the Counter Medications Acetaminophen (Tylenol) Ibuprofen (Advil, Motrin) ALLERGIES Allergen Reactions Chocolate Rash Caffeine Rash Melatonin Shortness of Breath Onion GI Upset Adhesive Tape (Rita* Rash, Itching Patient reports unable to tolerate band-aids after a procedure. She noted redness and itching at site of band aid. Mosquitos Swelling Phenergan [Prometha* GI Upset Sunscreen Rash Tingle tanning lotion Zyrtec [Cetirizine * Other: See Comments Made her very drowsy, HEADACHE SCORES: Headache Questions 12/03/2020 Initial improvement of headache after botox injection at last visit: Not applicable, I did not have a botox injection at my last visit PRN medication usage in the last month: 0 Patient impression of improvement since last visit: Not applicable, this is my first visit HIT-6 12/03/2020 HIT-6 63 (Severe impact) NIKKIE - 2/7 SCORES 12/03/2020 NIKKIE-2 Score 1 PHQ-9 12/03/2020 Score 4 REVIEW OF SYSTEMS: Review of system : unchanged from the previous visit (sleep patterns, mood, energy, appetite, stress, exercising). PHYSICAL EXAMINATION: Vital Signs: BP 104/66 Pulse 75 Ht 157.5 cm (5' 2") Wt 70.2 kg (154 lb 11.2 oz) LMP 09/01/2021 (Within Days) BMI 28.30 kg/m OBJECTIVE: General:awake/easily arousable and no acute distress. CV: RRR, normal S1, S2 auscultated, and no murmurs. Lungs: clear to auscultation. Musculoskeletal: No gross joint deformities. , Suboccipital tenderness: Yes no. , Trigger Points: cervical paraspinous muscles bilateral and trapezius muscles bilateral , Cervical ROM: Not tested. Neurological: Mental Status: Speech fluent and appropriate, alert, oriented to person, place and time, and follows commands. Cranial Nerves: PERRL, visual santiago intact to confrontation, extraocular movements intact, face symmetric, no facial droop or ptosis, no dysarthria, palate elevate symmetrically, tongue protrudes midline, and shoulder shrug intact and symmetric. Motor: muscle strength 5/5 both upper and lower extremities, no drift, normal tone. Reflexes: UE and LE reflexes are equal and reactive. Coordination: finger-to- nose-finger intact bilaterally. Gait: normal-based. IMPRESSION: Rosalva Huang is a 32 year old year old female, with a history significant of vertigo/disequilibrium, BPD, panic disorder, + CHATO/anti-centromere AB, and migraine without aura presenting today to discuss ongoing migraine headaches now that she is no longer and not . She has an IUD for contraceptive. She has headaches that are long in duration and has not tolerated triptans in the past. We will trial nurtec as a rescue to see if this will decrease headaches lasting multiple days prior to starting a new preventative medication. I suspect if headaches are treatable she will have less overall headache days. We will also break her current migraine cycle. Deferred nerve blocks and TPIs since they were not effective last time. We did discuss lightheadedness and confusion and we will complete an autonomic workup since she does have issues with presyncope. She has never had a TILT test and this was ordered today. She had a previous MRI and MRA brain in 2020 in response to exertional headaches which were unremarkable. I suspect worsening migraines is playing a role in lightheadedness as well - if no improvement will complete further neuro-imaging. Her neurological examination is essentially normal at this visit. ICHD-3 Diagnosis: Episodic Migraine We will get a precert for an Oral Calcitonin Gene-Related Peptide Receptor Antagonist (GEPANT) Rimegepant for the rescue treatment of episodic migraine. This patient meets AHS criteria for treatment of migraine with an oral small molecule CGRP antagonist GEPANT. The FDA has approved GEPANTS for the treatment of migraine. Specifically, the patient has 12 headaches per month, lasting 4 or more hours/day associated with photophobia, phonophobia, nausea, vomiting, lightheaded for three or more months. Medication overuse headache has been ruled out.Patient will not use with another GEPANT. The patient has tried and failed the following : Anti-Migraine Rizatriptan (Maxalt) Sumatriptan (Imitrex, Sumavel) Analgesic Diclofenac (Voltaren, Cataflam, Cambia) Hydrocodone/Acetaminophen (Vicodin, [employer]) PLAN: HEADACHE MANAGEMENT: (You are the primary guardian of your health and headache. Keep track of all medications: This includes the reason for use, side effects and benefits.) - TILT table test - if no improvement in lightheadedness will do further neuro-imaging MEDICATION TREATMENT: Medications to Start Taking rimegepant (NURTEC ODT) 75 mg disintegrating tablet Take 1 tablet by mouth once daily as needed (migraine). keTORolac (TORADOL) 10 mg tablet Take 1 tablet by mouth four times daily for 5 days. Take with food Headache education was done. Discussed lifestyle modification including increased oral hydration, decreased caffeine, exercise and stress management. Discussed treatment options including preventive and acute medications, natural supplements, and infusion therapy. Discussed medication overuse headache and to limit use of acute treatments to no more than 2 days/week or 10 days/month. Discussed medication side effects, adverse reactions and drug interactions. Written educational materials and patient instructions outlining all of the above were given. RESEARCH: None at this time Follow-up: 2 months, PRN (patient may need to reschedule at which point I will add her on) Level of service: Est level 5 (40-54 min). Time spent 54 min on the day of service, which included preparing to see the patient, [id number] patient care, completing clinical documentation, obtaining and/or reviewing separately obtained history, performing a medically appropriate examination, counseling and educating the patient/family/caregiver, and ordering medications, tests, or procedures. All questions answered. The patient has my contact information and my chart sign up information. Jaja Moss APRN.LOUIS documented in this encounter [facility] 09-19-2022 Miscellaneous Notes IUD inserted 09/05/22 Delivered 07/22/22 c/s documented in this encounter [facility] 09-09-2022 Instructions Chuckie Hall APRN.CNP - 09/09/2022 3:58 PM EDT ASSESSMENT/PLAN: 1. UTI symptoms - ICD9: 788.99, ICD10: R39.9 - URINE CULTURE - NITROFURANTOIN MONOHYDRATE & MACROCRYSTAL 100 MG ORAL CAP Force Fluids Await lab results - urine culture obtained Antibiotic per [facility] orders Additional instructions given to pt in AVS - All questions answered Chuckie Hall CNP BLADDER INFECTION OVERVIEW Bladder infections are one of the most common infections, causing symptoms of burning with urination and needing to urinate frequently. A bladder infection is a type of urinary tract infection (UTI). Bladder infections are more common is women than men. Most women have an uncomplicated bladder infection that is easily treated with a short course of antibiotics. In men, bladder infections may also affect the prostate gland, and a longer course of treatment may be needed. BLADDER INFECTION CAUSES The urinary tract includes the kidneys (which filter urine), ureters (the tube that carries urine from the kidneys to the bladder), the bladder (which stores urine), and urethra (the tube that carries urine out of the bladder). Bacteria do not normally live in these areas. However, bacteria normally live close to the urethra in women and men who are not circumcised. Bladder infections occur when bacteria travel up the urethra into the bladder. Factors that increase the risk of developing a bladder infection include: Vaginal sex Use of spermicides History of past bladder infections Diabetes In men, not being circumcised or having anal sex increase the risk of bladder infections. BLADDER INFECTION SYMPTOMS The typical symptoms of a bladder infection include: Pain or burning when urinating Frequent need to urinate Urgent need to urinate Blood in the urine Fever, back pain, nausea, or vomiting are not common symptoms of a bladder infection, but can occur in people with a kidney infection (pyelonephritis). If you have these symptoms, you should call your doctor or nurse immediately. Is it a bladder infection or something else? -- Burning with urination can also occur in people with vaginitis (eg, yeast infection) or urethritis (inflammation of the urethra). For this reason, it is important to call your healthcare provider before assuming you have a bladder infection. BLADDER INFECTION DIAGNOSIS Simple bladder infections are usually diagnosed based upon your symptoms alone. However, most patients, especially those who have bladder infection symptoms for the first time, should see a healthcare provider for urine testing. Urine culture -- A urine culture is a test that uses a sample of urine to try and grow bacteria in a laboratory. It usually requires about 48 hours to get results. However, a urine culture is not always required to diagnose a bladder infection. Urine culture is often recommended if: You have never had a bladder infection before You have symptoms that are not typical for bladder infection You have had "resistant" bladder infections before You have frequent bladder infections You do not begin to feel better within 24 to 48 hours after starting antibiotics You are BLADDER INFECTION TREATMENT Bladder infection -- In young, healthy adolescents and adults with a bladder infection, the usual treatment includes a three to seven day course of antibiotics. The typical drugs chosen are: trimethoprim-sulfamethoxazole (Bactrim ), nitrofurantoin (Macrobid ), ciprofloxacin (Cipro ) or levofloxacin (Levaquin ). In men, the infection may involve your prostate gland and treatment is usually given for at least 7 days. Your symptoms should begin to resolve within one day after starting treatment. It is important to take the full course of antibiotics to completely eliminate the infection. If your symptoms persist for more than two or three days after starting treatment, call your healthcare provider. If needed, you can take a prescription medication that numbs the bladder and urethra (phenazopyridine [Pyridium ]) to reduce the burning pain of some UTIs. A similar medication is available without a prescription (eg, Uristat). Both medications change the color of the urine (usually blue or orange) and can interfere with laboratory testing. You should not take these medications for more than 48 hours due to the risk of side effects. These medications do not treat the infection and must be taken along with an antibiotic. Some providers recommend drinking more fluids while treating bladder infections to help flush bacteria from the bladder. Others believe that drinking more fluids may dilute the antibiotic in the bladder and make the medication less effective. No studies have been performed to address this issue. There are also no good studies on the effectiveness of cranberry juice for treating a bladder infection; we do not recommend using cranberry juice to treat bladder infections. Follow-up care -- Follow-up testing is not needed in healthy, young men or women with a bladder infection if symptoms resolve. women are usually asked to have a repeat urine culture one to two weeks after treatment has ended to make sure the bacteria are no longer in the urine. RECURRENT BLADDER INFECTIONS Bladder infections versus other causes -- Some adults, especially women, develop bladder infections frequently. In this case, it is important to confirm that your symptoms (eg, pain or burning, frequency, and urgency) are caused by a bladder infection. Symptoms are usually similar from one infection to another. The best way to confirm an infection is to have a urine culture. If your urine culture is negative for infection, other causes of pain, burning, and frequency should be investigated. There is no reason to take antibiotics if your urine culture is negative. Need for further testing -- If you continue to develop bladder infections, you may require further testing. If you continue to notice blood in your urine after your bladder infection has cleared, you should have further testing. Preventing recurrent UTIs -- Women with recurrent urinary tract infections may be advised to take steps to prevent bladder infections, including one or more of the following: Changes in control -- Women who develop frequent bladder infections and use spermicides, particularly those who also use a diaphragm, may be encouraged to use an alternate method of control. Cranberry products -- Taking cranberry juice or cranberry tablets has been promoted as one way to help prevent frequent bladder infections. However, this has not been proven. Drinking more fluid and urinating after intercourse -- Although studies have not proven that drinking more fluids or urinating soon after intercourse can prevent infection, some healthcare providers recommend these measures since they are not harmful. Drinking more fluid may help to wash out bacteria that enter the bladder. Postmenopausal women -- Postmenopausal women who develop recurrent bladder infections may benefit from using vaginal estrogen. Vaginal estrogen is available in a flexible ring that is worn in the vagina for three months (eg, Estring ), a small tablet (Vagifem ), or a cream (eg, Premarin or Estrace ). Vaginal estrogen is discussed in more detail in a separate topic review. Antibiotics -- A preventive antibiotic treatment may be recommended if you repeatedly develop bladder infections and have not responded to other preventive measures. Antibiotics are highly effective in preventing recurrent bladder infections and can be taken in several different ways. Preventive antibiotic -- You can take a low dose of an antibiotic once per day or three times per week for six months to several years. Antibiotics following intercourse -- In women who develop urinary tract infections after sex, taking a single low dose antibiotic after intercourse can help to prevent bladder infections. Self-treatment -- A plan to begin antibiotics at the first sign of a bladder infection may be recommended in some situations. Before starting this regimen, it is important that you have had testing (urine cultures) to confirm that your symptoms are caused by a bladder infection; some people have symptoms of a bladder infection but do not actually have an infection. documented in this encounter [facility] 09-09-2022 History of Presen t illness Narrative cc - urinary symptoms HPI - Pt is a 32 year old female with a history of onset today . Dysuria: Yes Increase in frequency of urination: Yes Urgency: Yes Sense of incomplete void: No Fevers: No Chills: No Sweats: No Vomiting: No Diarrhea: No Abdominal pain: Yes: unsure if pain is from recent c section or UTI Chance of ? No Blood visible in urine: No New onset of back pain: No Any self-treatment attempted? fluids PAST MEDICAL HISTORY Diagnosis Date Endometriosis 10/26/2014 never had diagnostic lap to confirm, patient did not want surgery Gestational diabetes mellitus (GDM) affecting second 05/25/2022 Infertility, female Migraine without aura and without status migrainosus, not intractable 07/18/2019 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HCC) 08/27/2015 Panic disorder without agoraphobia PMH - PAST MEDICAL HISTORY OF color vision normal PMH - PAST MEDICAL HISTORY OF "vascular disease" 01/2002 PMH - PAST MEDICAL HISTORY OF wearing glasses and broke ankle at age 3, wrist fracture depression PAST SURGICAL HISTORY Procedure Laterality Date 2D ECHO COMPLETE INP 01/03/2015 EF=67%, WNL SNGL 07/22/2022 FAMILY HISTORY Problem Relation Age of Onset Asthma Mother Psychiatry Mother Bi-Polar Hypertension Maternal Grandmother Heart Maternal Grandfather triple by pass heart diagnosed in Stroke Paternal Grandmother Cancer Paternal Grandmother Heart Paternal Grandfather heart attack. . Emphysema Paternal Grandfather Diabetes Other maternal side Social History Tobacco Use Smoking status: Never Smokeless tobacco: Never Tobacco comments: Pt denies Vaping Use Vaping Use: Never used Substance Use Topics Alcohol use: No Drug use: No Comment: Pt denies ALLERGIES Allergen Reactions Chocolate Rash Caffeine Rash Melatonin Shortness of Breath Onion GI Upset Adhesive Tape (Rita* Rash, Itching Patient reports unable to tolerate band-aids after a procedure. She noted redness and itching at site of band aid. Mosquitos Swelling Phenergan [Prometha* GI Upset Sunscreen Rash Tingle tanning lotion Zyrtec [Cetirizine * Other: See Comments Made her very drowsy, Current Outpatient Medications Medication Sig lamoTRIgine (LAMICTAL) 150 mg tablet Take 1 tablet by mouth once daily. risperiDONE (RISPERDAL) 1 mg tablet Take 1 tablet by mouth daily at bedtime. acetaminophen (TYLENOL) 500 mg tablet Take 2 tablets by mouth every 6 hours as needed for pain. ibuprofen (MOTRIN) 600 mg tablet Take 1 tablet by mouth every 6 hours as needed for pain. No current facility-administered medications for this visit. PHYSICAL EXAMINATION: BP 110/74 (BP Site: Right Arm, BP Position: Sitting, BP Cuff Size: Regular Adult) Pulse 81 Temp 36.7 C (98 F) Resp 20 LMP 09/01/2021 (Within Days) SpO2 98% General Appearance: 32 yo female in NAD Abdomen: soft, mild lower tenderness CVA Tenderness: No U/A B/O - + leuks ASSESSMENT/PLAN: 1. UTI symptoms - ICD9: 788.99, ICD10: R39.9 - URINE CULTURE - NITROFURANTOIN MONOHYDRATE & MACROCRYSTAL 100 MG ORAL CAP Force Fluids Await lab results - urine culture obtained Antibiotic per EPIC orders Additional instructions given to pt in AVS - All questions answered Chuckie Hall CNP documented in this encounter [facility] 09-05-2022 Procedure note Associated Ord er(s): IUD INSERTION IUD INSERTION PROCEDURE Date/Time: 09/05/2022 4:39 PM Performed by: Shalonda Krause APRN.CNM Authorized by: Shalonda Krause APRN.CNM Indication: contraception Diagnosis: (Z86.32) History of gestational diabetes (primary encounter diagnosis) (Z39.2) care and examination [Z39.2 (ICD-10-CM)] (Z39.2) care and examination (Z30.430) Encounter for insertion of mirena IUD Patient's last menstrual period was 09/01/2021 (within days). Informed Consent Consent Obtained: Written [place] Protocol A moment to CARE was completed. SIGN IN Sign in communication not applicable due to emergent procedure. Personnel directly involved with the procedure wore the appropriate PPE. Special Equipment: N/A Patient/Surrogate Stated/Verified: Patient name, Date of , Relevant allergies and Intended procedure TIME OUT Intended patient and procedure match the source document(s). Consent documented and matches the intended procedure. No relevant labs, photos, and/or imaging studies were applicable for review. No correct side/site applicable for marking and visibility. No medications required for procedure. No fire risk assessment and interventions applicable. No implant(s) inserted. Pre-Procedure Details: Personnel: Personnel directly involved with the procedure wore the appropriate PPE Procedure Details: GC/chlamydia test: negative Urine test: n/a Serum test: n/a Pelvic exam performed. Speculum placed in vagina. Cervix cleaned and prepped. Tenaculum applied to cervix. Uterus sounded. Uterus sound depth (cm): 7 IUD inserted successfully: yes IUD type: Mirena IUD Source: Office provided IUD Lot #: [id number] Expiration Date: 10/22/2024 Strings trimmed. Post-Procedure Details: Patient tolerated the procedure well with no immediate complications SIGN OUT No specimen collected. All instruments, equipment, possible retained foreign bodies accounted for. Post-procedure follow-up management communicated and Plan of Care Visit completed when applicable Shalonda Krause APRN.CNM documented in this encounter [facility] 09-05-2022 History of Presen t illness Narrative VISIT Rosalva Huang is a 32 year old year old here for visit. Delivery Summary: Jo Long [[id number]] Delivery Information: Delivery Date: 07/22/22 Delivery type: , Low Transverse Delivering Clinician: Iris Lora MD [place]: Gender: Male Weight (grams): 3214 g One Minute : 8 Five Minute : 9 ROS/ Recovery: Feeding: Bottle feeding problems: None Menses since delivery: spotting Menstrual pattern prior to : Regular periods Pat[place] since delivery: Not resumed Depression: denies symptoms of depression. OB Depression and Anxiety Screening- This Encounter (since 09/04/2022) None Emotional support: Yes Bowel symptoms: Negative for abdominal discomfort, blood in stools or black stools and change in bowel habits Abdomen: She reports no incisional redness, tenderness, erythema Bladder symptoms: No dysuria, gross hematuria, urinary frequency, urinary urgency, or incontinence Other issues: None Last Pap: 2019 normal HPV: N/A PAST MEDICAL HISTORY Diagnosis Date Endometriosis 10/26/2014 never had diagnostic lap to confirm, patient did not want surgery Gestational diabetes mellitus (GDM) affecting second 05/25/2022 Infertility, female Migraine without aura and without status migrainosus, not intractable 07/18/2019 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HCC) 08/27/2015 Panic disorder without agoraphobia PMH - PAST MEDICAL HISTORY OF color vision normal PMH - PAST MEDICAL HISTORY OF "vascular disease" 01/2002 PMH - PAST MEDICAL HISTORY OF wearing glasses and broke ankle at age 3, wrist fracture depression PAST SURGICAL HISTORY Procedure Laterality Date 2D ECHO COMPLETE INP 01/03/2015 EF=67%, WNL SNGL 07/22/2022 FAMILY HISTORY Problem Relation Age of Onset Asthma Mother Psychiatry Mother Bi-Polar Hypertension Maternal Grandmother Heart Maternal Grandfather triple by pass heart diagnosed in Stroke Paternal Grandmother Cancer Paternal Grandmother Heart Paternal Grandfather heart attack. . Emphysema Paternal Grandfather Diabetes Other maternal side Social History Tobacco Use Smoking status: Never Smokeless tobacco: Never Tobacco comments: Pt denies Vaping Use Vaping Use: Never used Substance Use Topics Alcohol use: No Drug use: No Comment: Pt denies PHYSICAL EXAMINATION: BP 104/66 Ht 5' 2" (1.58m) Wt 144 lb (65.3kg) LMP 09/01/2021 BMI 26.33 kg/(m^2). GENERAL: pleasant, female in no apparent distress HEENT: Normocephalic, atraumatic, mucus membranes moist, and no lesions NECK: Supple, full range of motion, no adenopathy, and thyroid normal DERMATOLOGY: Normal, without lesions, non-icteric, and non-hirsute BREAST: deferred CHEST: Normal inspiratory effort ABDOMEN: soft, non-tender, and no masses. INCISION: No incisional redness, swelling, or drainage PELVIC: external genitalia normal, normal Bartholin's glands, urethra, Inkerman's glands, no vulvar lesions, no cervical lesions, good vaginal support, physiologic discharge present, normal appearing perineal body and perianal region BIMANUAL: deferred NEURO: alert and oriented x3,exam grossly non-focal EXTREMITIES: normal ASSESSMENT AND PLAN: 32 year old status post CS with normal course. Contraception plan: IUD - Mirena Follow up: GDM: Needs 2 hour GTT, RTC for annual exams and PRN, IUD insertion today Shalonda Krause APRN.CNM documented in this encounter [facility] 09-05-2022 Nurse Note Rosalva Huang has been identified by name and birthdate: Yes 32 year old female for exam. Allergies reviewed: Yes Medication- prescribed and OTC reveiwed and updated: Yes Do you need any prescription refills prior to you next visit: No Health Maintenance: Reviewed and up to date. OB History T2 L2 SAB0 IAB0 Ectopic0 Multiple0 Live Births2 Comment: Menarche: age 10 LMP: Patient's last menstrual period was 09/01/2021 (within days). Contraception: none Last mammogram: never Last PAP: 08/2020 normal Smoking: no Latex allergy: No Does this patient have diabetes, hypertension or cardiovascular disease: had gestational diabetes. Does this patient have unintentional weight loss or gain > 10 # due to change in appetite, intake difficulty chewing or swallowing: No Does this patient have any food allergies or intolerances: No Has the patient had a recent problem with pain: Yes: Location #1: pain rated 3 on a scale of 0-10 (0=none, 10=worst). Location: incision. Character: numbness, tingling, and pain, unsure how to describe. Duration: 6 weeks. Frequency: occurs intermittently. Is patient exposed to any physical or emotional abuse: No Concerns about falling or have they fallen in the past year? No Difficulty performing or completing routine daily activities? No Is the patient active on MyChart Yes The delivery date was 07/22/22 at 39 weeks gestation. Outcome: Low transverse incision Sex: M, Wt: 7 lbs 1.4 oz. Baby(s) Name: Aurialis Feeding: Bottle feeding Bladder Problems: no Bleeding: no Discharge: no Pain: no Patillas:Not resumed Would you like a maintenance team leader for your exam today? no Elsa Covington Ma documented in this encounter [facility] 09-04-2022 Miscellaneous Notes I reached out to patient 2x and unable to leave a vm. Unable to reach patient. LVM w/ details to schedule documented in this encounter [facility] 07-16-2022 Miscellaneous Notes Spoke to patient. For some reason her BG monitor is not showing her BG numbers. Offer her to come to our office and we will give her a new monitor. documented in this encounter [facility] 07-16-2022 Instructions Jaja Moss APRN.CNP - 07/16/2022 1:46 PM EDT You received a greater occipital nerve block today. You may feel sore tomorrow at the site of the injection. You may use heat or ice for discomfort. This should resolve in 24-36 hours. documented in this encounter [facility] 07-16-2022 Procedure note Procedure Note: Greater Occipital Nerve Block UNIVERSAL PROTOCOL / SAFETY CHECKLIST Procedure to be Performed: bilateral greater occipital nerve blocks Sign In: A Moment of CARE was completed. Personnel directly involved with the procedure wore the appropriate PPE (Personal Protective Equipment). No special equipment needed. Patient/Surrogate Stated/Verified: PATIENT VERIFIED(optional for EMERGENT procedures): Patient name, Date of , Relevant allergies, and The intended procedure Time Out Communication: Intended patient and procedure match the source documents. Consent documented and matches the intended procedure. Relevant labs, photos, and/or imaging studies have been reviewed. Correct side/site marked and visible. Medications required for procedure verified. No fire risk assessment and interventions applicable. No implant(s) inserted. Sign Out: SIGN OUT (optional for EMERGENT procedures): No specimen collected. No instruments, equipment or retained foreign bodies applicable. Post-procedure follow-up management communicated and Plan of Care Visit completed when applicable. Jaja Moss APRN.CNP The risks, benefits and anticipated outcomes of the procedure, the risks and benefits of the alternatives to the procedure, and the roles and tasks of the personnel to be involved, were discussed with the patient, and the patient consents to the procedure and agrees to proceed. Informed consent signed. 4 cc 1% of lidocaine were injected into the bilateral greater occipital nerves The occipital nerve(s) was injected 3cm caudal and 1.5 cm lateral to the inion where the main trunk of the occipital nerve penetrates the semispinalis muscle. The needle was placed perpendicular and the needle advanced 1.5 cm. After aspiration to ensure no obstruction or presence of blood, the area was injected. The needle was repositioned in a fan-like manner and the entire area was injected. Pressure was held and no hematoma was noted. The patient was told to use heat or cold if there was discomfort later in the day Pre injection pain 0/10 Post injection pain 0/10 Patient tolerated the procedure well. documented in this encounter [facility] 07-16-2022 History of Presen t illness Narrative [facility] - Follow up Visit Last Visit: 05/13/2022, Jaja Moss APRN.CAGER OPERATOR Accompanied by: Self Primary Problem List: ACTIVE PROBLEM LIST Mild Mixed Bipolar I Disorder (Hcc) Migraine Without Aura and Without Status Migrainosus, Not Intractable History of Drug Use Panic Disorder Without Agoraphobia Anxiety State Adjustment Disorder With Mixed Anxiety and Depressed Mood Uti (Urinary Tract Infection) During , Third Trimester Gestational Diabetes Mellitus (Gdm) Affecting Second Pyelectasis of Fetus On Ultrasound Pelvic Pressure in Breech Presentation With Problem Chief Complaint: Headache Impression and Plan from last visit: Rosalva Huang is a 32 year old year old female, with a history significant of vertigo/disequilibrium, BPD, panic disorder, + CHATO/anti-centromere AB, and migraine without aura presenting today for greater occipital nerve blocks with lidocaine for migraine prevention as she is 29 weeks . She has utilized lidocaine nerve blocks during her previous and this as discussed is category B (no known risk to mother or fetus). Risks and benefits of the procedure were discussed with patient and she agreed to proceed with the procedure. She is on Lamictal through psychiatry for bipolar disorder. Her neurological examination is essentially normal at this visit. ICHD-3 Diagnosis: Episodic Migraine PLAN: - occipital nerve blocks today with lidocaine (see procedure note) Interval Headache Hx: Patient having planned on July 22. Has GDM. Was doing well diet controlled, but BS has been elevated. BS has been 130s-140s. Morning readings have been OK. Has been doing well with her headaches. She only had 2 migraines since her last visit! When she gets them they are severe. When she delivered her last baby she did not have a headache after she delivered. Her headaches are better when she I snot . Will have prodrome symptoms but headaches do not break through - thinks this is what the injections help with. Has done well with lidocaine bilateral greater occipital nerve blocks for migraine prevention during without side effects. Would like to have a third baby but is not sure what control method she will be using yet. Considering either having her tubes tied or an IUD placed. Rizatriptan worked well for a while but made her feel high. Headache 1 Diagnosis: Episodic Migraine Location: retro-orbital and bilateral (had 1 headache that started radiating backwards which normally does not happen) Quality/Description: feels like her eyes are going to fall out of her head, pounding, vice like. Associated Symptoms: Photophobia: yes Phonophobia: yes Nausea: yes Vomiting: no Other symptoms: relieved in supine position Worse with activity: yes Migraine Severity: severe. Duration of headaches with treatment: Duration of attacks with treatment: hours through to the next day. Current preventive treatment: none Current abortive treatment: none Triggers: vision strain, sun, squinting with trying to focus, busy days. Onset of headache to peak: gradual Relieving factors: wet sock across her forehead, dark room, tries to lay down, cold water (hydration), eating Headache status since the last visit: better Issues and questions to be addressed: - patient update Medications tried: Prior Therapies Duration of Use Dose Reason for Discontinuation Other Therapies Nerve blocks Analgesic Diclofenac (Voltaren, Cataflam, [place]) Hydrocodone/Acetaminophen (Vicodin, [employer]) Anti-Anxiety Alprazolam (Xanax, Niravam) Diazepam (Valium) Anti-Convulsant Lamotrigine (Lamictal) Topiramate (Topamax, Trokendi XL, Qudexy) Anti-Depressant and Antipsychotic Quetiapine (Seroquel) Antiemetics Ondansetron Promethazine Anti-Migraine Rizatriptan (Maxalt) Sumatriptan (Imitrex, Sumavel) Supplements CoQ10 Magnesium Riboflavin Other Medications Dexamethasone (Decadron) Methylprednisolone (Medrol) Prednisone Over the Counter Medications Acetaminophen (Tylenol) Ibuprofen (Advil, Motrin) ALLERGIES Allergen Reactions Chocolate Rash Caffeine Rash Melatonin Shortness of Breath Onion GI Upset Adhesive Tape (Rita* Rash, Itching Patient reports unable to tolerate band-aids after a procedure. She noted redness and itching at site of band aid. Mosquitos Swelling Phenergan [Prometha* GI Upset Sunscreen Rash Tingle tanning lotion Zyrtec [Cetirizine * Other: See Comments Made her very drowsy, HEADACHE SCORES: Headache Questions 12/03/2020 Initial improvement of headache after botox injection at last visit: Not applicable, I did not have a botox injection at my last visit PRN medication usage in the last month: 0 Patient impression of improvement since last visit: Not applicable, this is my first visit HIT-6 12/03/2020 HIT-6 63 (Severe impact) NIKKIE - 2/7 SCORES 12/03/2020 NIKKIE-2 Score 1 PHQ-9 12/03/2020 Score 4 REVIEW OF SYSTEMS: Review of system : unchanged from the previous visit (sleep patterns, mood, energy, appetite, stress, exercising). PHYSICAL EXAMINATION: Vital Signs: BP 121/74 Pulse 97 Resp 22 Ht 157.5 cm (5' 2") Wt 72.6 kg (160 lb) LMP 09/01/2021 (Within Days) BMI 29.26 kg/m OBJECTIVE: General:awake/easily arousable and no acute distress. Musculoskeletal: Suboccipital tenderness: Yes bilateral. Neurological: Mental Status: Speech fluent and appropriate, alert, oriented to person, place and time, and follows commands. Motor: normal tone. Gait: normal-based. IMPRESSION: Rosalva Huang is a 32 year old year old female, with a history of significant of vertigo/disequilibrium, BPD, panic disorder, + CHATO/anti-centromere AB, and migraine without aura presenting today for greater occipital nerve blocks with lidocaine as migraine prevention which has been beneficial for her during . She is aware that lidocaine is category B. She notes that she will feel headaches starting but rarely have become full blown. As she will be having a planned next week - we will do the procedure today as changes in hormone levels following can cause worsening of migraine headaches. She would like to have another child in the future but would like to wait. She is considering contraceptive options we will discuss options for prevention/abortive after she delivers. She is not planning on . Her neurological examination is essentially normal at this visit. ICHD-3 Diagnosis: Episodic Migraine PLAN: HEADACHE MANAGEMENT: (You are the primary guardian of your health and headache. Keep track of all medications: This includes the reason for use, side effects and benefits.) MEDICATION TREATMENT: - bilateral greater occipital nerve blocks today(see procedure note) - can consider adding prevention and abortive after (briefly discussed frovatriptan or eletriptan) Headache education was done. Discussed lifestyle modification including increased oral hydration, decreased caffeine, exercise and stress management. Discussed treatment options including preventive and acute medications, natural supplements, and infusion therapy. Discussed medication overuse headache and to limit use of acute treatments to no more than 2 days/week or 10 days/month. Discussed medication side effects, adverse reactions and drug interactions. Written educational materials and patient instructions outlining all of the above were given. RESEARCH: None at this time Follow-up: 4 months, PRN Level of service: Est level 3 (20-29 min). Time spent 25 min on the day of service, which included preparing to see the patient, [id number] patient care, completing clinical documentation, obtaining and/or reviewing separately obtained history, performing a medically appropriate examination, counseling and educating the patient/family/caregiver, and ordering medications, tests, or procedures. All questions answered. The patient has my contact information and my chart sign up information. Jaja Froimson, MACHINE WOODWORKING SANDER.CAGER OPERATOR documented in this encounter [facility] 07-10-2022 Miscellaneous Notes Active baby, complaining of some very bad contractions, not happening now. No bleeding or leaking of fluid. Consent signed, but needs consent for LARC--Mirena IUD US confirms breech. Long discussion regarding alternatives to primary csection due to her anxiety. She concurs that is the right choice for her. GBS done today. Instructions for blood work, covid testing given. Will give OR instructions at next visit with Yanelis. Shalonda Krause APRN.CNM Medical Decision Making: Problems: Low: Acute, uncomplicated illness or injury Moderate: New problem with uncertain prognosis Data: Unique test(s) ordered: 3+ Risk: Moderate: Decision on elective major surgery w/o risk factors Medical Decision Making Level: 4 - Moderate documented in this encounter [facility] 07-10-2022 Nurse Note Movement? Active baby Vaginal Bleeding: NO Vaginal fluid leakage of fluid: NO Contractions: possible contractions. After School Counselor offered: Patient declines. documented in this encounter [facility] 07-10-2022 History and physical note OBSTETRICS HISTORY AND PHYSICAL NAME: Rosalva Huang SERVICE DATE: July 10, 2022 SERVICE TIME: 11:57 AM ASSESSMENT & PLAN: 32 year old EGA:37w3d. Plan for delivery in <30 days. POST DELIVERY CONTRACEPTION: Discussed post-delivery contraception options. Patient received written information about post-delivery contraception options. Patient desires post-delivery contraception: Levonorgestrel Intrauterine Device chosen, informed consent obtained. SUBJECTIVE: CHIEF COMPLAINT: Scheduled section HISTORY OF THE PRESENT ILLNESS: The patient is a 32 year old female, , who is at 37w3d with an TRISHA of 07/28/2022, by Ultrasound dating method. Patient has Good movement. Denies vaginal bleeding., Denies contractions., Denies leaking of fluid. . Patient is GBS Pending. Her has been complicated by the following issues: Active Non-Hospital Problems Diagnosis Date Noted Pelvic pressure in 06/25/2022 Breech presentation with problem 06/25/2022 Pyelectasis of fetus on ultrasound 06/03/2022 UTI (urinary tract infection) during , third trimester 05/25/2022 Overview Note: UA shows: large blood and positive for Leuk, Macrobid sent, needs F/U FRANK -Anny He APRN.CNM Gestational diabetes mellitus (GDM) affecting second 05/25/2022 Overview Note: Diet controlled, referral to Dr. Ocampo on 05/25/2022 -Anny He APRN.CNM Panic disorder without agoraphobia 05/28/2021 Anxiety state 05/28/2021 Adjustment disorder with mixed anxiety and depressed mood 04/29/2021 History of drug use 09/17/2020 Migraine without aura and without status migrainosus, not intractable 07/18/2019 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HCC) 08/27/2015 ANESTHESIA COMPLICATIONS: None HISTORY REVIEW PAST MEDICAL HISTORY Diagnosis Date Endometriosis 10/26/2014 never had diagnostic lap to confirm, patient did not want surgery Gestational diabetes mellitus (GDM) affecting second 05/25/2022 Infertility, female Migraine without aura and without status migrainosus, not intractable 07/18/2019 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HCC) 08/27/2015 Panic disorder without agoraphobia PMH - PAST MEDICAL HISTORY OF color vision normal PMH - PAST MEDICAL HISTORY OF "vascular disease" 01/2002 PMH - PAST MEDICAL HISTORY OF wearing glasses and broke ankle at age 3, wrist fracture depression PAST SURGICAL HISTORY Procedure Laterality Date 2D ECHO COMPLETE INP 01/03/2015 EF=67%, WNL FAMILY HISTORY Problem Relation Age of Onset Asthma Mother Psychiatry Mother Bi-Polar Hypertension Maternal Grandmother Heart Maternal Grandfather triple by pass heart diagnosed in 30's Stroke Paternal Grandmother Cancer Paternal Grandmother Heart Paternal Grandfather heart attack. . Emphysema Paternal Grandfather Diabetes Other maternal side Social History Tobacco Use Smoking status: Never Smokeless tobacco: Never Tobacco comments: Pt denies Vaping Use Vaping Use: Never used Substance Use Topics Alcohol use: No Drug use: No Comment: Pt denies Obstetric History T1 L1 SAB0 IAB0 Ectopic0 Multiple0 Live Births1 Comment: Menarche: age 10 Name of Baby 1: ARRON HUANG Date: 04/17/21 GA: 38w6d Delivery: Vaginal, Spontaneous Apgar1: 8 Apgar5: 9 Living: Living Name of Baby 2: Not recorded Date: Not recorded GA: Not recorded Delivery: Not recorded Apgar1: Not recorded Apgar5: Not recorded Living: Not recorded ALLERGIES: ALLERGIES Allergen Reactions Chocolate Rash Caffeine Rash Melatonin Shortness of Breath Onion GI Upset Adhesive Tape (Rita* Rash, Itching Patient reports unable to tolerate band-aids after a procedure. She noted redness and itching at site of band aid. Mosquitos Swelling Phenergan [Prometha* GI Upset Sunscreen Rash Tingle tanning lotion Zyrtec [Cetirizine * Other: See Comments Made her very drowsy, PRIOR TO ADMISSION MEDICATIONS: Prior to Admission medications as of 07/10/22 1156 Medication Sig Last Dose Taking blood sugar diagnostic (BLOOD GLUCOSE TEST) test strip Use five times a day as ACOG guidelines for gestational daibetes Taking Yes Lancets lancets Use five times daily as recommended by ACOG for gestational diabetes Taking Yes alcohol swabs Use five times daily as per protocol by ACOG Taking Yes lamoTRIgine (LAMICTAL) 150 mg tablet Take 150 mg by mouth once daily. Taking Yes Sennosides (SENOKOT EXTRA STRENGTH) 17.2 mg tab Take 1 tablet by mouth once daily. Taking Yes risperiDONE (RISPERDAL) 1 mg tablet Take 1 tablet by mouth daily at bedtime. Taking Yes Ldbeslfm-Sf-Dqo-Fe-FA tab Take 1 tablet by mouth once daily. Taking Yes No medication comments found. REVIEW OF SYSTEMS: The remainder of the review of systems is negative. OBJECTIVE: PHYSICAL EXAM: General: WD, WN HEENT: NC/AT, sclera white, pupils equal, no thyromegaly Lungs: clear, Heart: RR, S1, S2 Abdomen: soft, nontender, no masses Uterus: soft, NT, EFW 6.5# Extremities: no edema DTRs: 2+ Pelvimetry: Pelvimetry clinically assessed as adequate LAST VITALS: Wt 158 lb (71.7 kg) LMP 09/01/2021 (Within Days) BMI 27.99 kg/m Heart Rate: 145 LABS Diagnostic tests reviewed for today's visit: Most recent labs and imaging results. Maternal Results (In Last 9 Months): Hemoglobin (g/dL) Date/Time Value 05/06/2022 1618 12.0 12/03/2021 1220 13.0 Hematocrit (%) Date/Time Value 05/06/2022 1618 36.9 12/03/2021 1220 41.0 Platelet Count (k/uL) Date/Time Value 05/06/2022 1618 247 12/03/2021 1220 315 ABO/RH(D) (no units) Date/Time Value 12/03/2021 1221 A POSITIVE Group B Strep PCR (no units) Date/Time Value 06/25/2022 1346 Negative for Group B Streptococcus by PCR. Hep B Surface Ag (no units) Date/Time Value 12/03/2021 1220 Negative Hep C Antibody IA (no units) Date/Time Value 12/03/2021 1220 Negative HIV 12 Combo (Ag/Ab) (no units) Date/Time Value 12/03/2021 1220 Non Reactive GC Amplification (no units) Date/Time Value 05/25/2022 1352 Negative for Neisseria gonorrhoeae by amplification 12/03/2021 1119 Negative for Neisseria gonorrhoeae by amplification. Chlamydia Amplification (no units) Date/Time Value 05/25/2022 1352 Negative for Chlamydia trachomatis by amplification 12/03/2021 1119 Negative for Chlamydia trachomatis by amplification. Rubella Antibody, IgG (Index Value) Date/Time Value 12/03/2021 1220 0.69 Syphilis Screen Result (no units) Date/Time Value 12/03/2021 1220 Non Reactive Syphilis Total Screen (no units) Date/Time Value 05/06/2022 1618 Nonreactive Glucose Scrn, Preg (mg/dL) Date/Time Value 05/06/2022 1618 135 (H) Delivery Plan: Delivery Plan includes: , Primary Reason for is Breech, and EFW is 6.5. Electronic Informed Consent completed: Yes SIGNATURE: Shalonda Krause APRN.CNM DATE: July 10, 2022 TIME: 11:57 AM documented in this encounter [facility] 07-03-2022 Miscellaneous Notes Call placed to [facility] Pt scheduled for primary on 07/22/22 at 7:30 am at [facility], needs to arrive by 5:30 am Call placed to pt Informed pt Pt agreeable to date and time Informed pt arrive by 5:30 am and not to eat or drink past 11 pm the night before Pt verbalizes understanding ----- Message from Shalonda Krause APRN.CNM sent at 07/03/2022 4:27 PM EDT ----- Can you schedule this patient for a primary csection for Breech presentation on Jun at [facility]? Shalonda Krause APRN.CNM documented in this encounter [facility] 07-03-2022 Miscellaneous Notes Spoke to patient and advised that she should still have refills on file at [facility]. Patient voiced understanding. documented in this encounter [facility] 06-30-2022 History of Presen t illness Narrative Reason for consultation: f/u- gestational diabetes mellitus Referring Physician: Shalonda Krause CNM My final recommendations will be communicated back to the requesting physician by way of shared Medical record or letter via US mail. This Team Access Model visit is a virtual encounter. It required patient-provider interaction for the medical decision making as documented below. HISTORY OF PRESENT ILLNESS; Ms. Huang is a 32 year old presenting at 36+ weeks gestation here for f/u regarding gestational diabetes mellitus. She was diagnosed with GDM after abnormal 3 hour GTT on . POC HbA1c today is 5.2%. She does not have a previous history of gestational diabetes. Has 13 month old daughter- 7lbs 2oz F 03/2021 at 38 weeks gestation () Her prepregnancy weight was 133 lbs and her current weight is 160 lbs. She has no family hx of diabetes that she is aware. She has been forwarding me her BG data weekly - most recently on 06/25- currently being managed with lifestyle modifications alone. Having trouble eating the small frequent meals- early satiety She has been checking her blood glucose 4 times daily- fasting- majority less than 90 mg/dL 2 hour post meal less thank 120 mg/dL (but with occasional outlier 120-140 mg/dL) Hypoglycemia frequency: n/a Hypoglycemia awareness: n/a Hyperglycemia Symptoms: denies blurry vision denies polyuria denies polydipsia reports nocturia denies rapid weight loss Last visit with OB was 06/25- Last u/s was 06/24- EFW 30th centile, AC 26th centile, DAYNA NL- having a boy! She has no acute complaints/concerns at this time- feels ok overall. PAST MEDICAL HISTORY Diagnosis Date Endometriosis 10/26/2014 never had diagnostic lap to confirm, patient did not want surgery Gestational diabetes mellitus (GDM) affecting second 05/25/2022 Infertility, female Migraine without aura and without status migrainosus, not intractable 07/18/2019 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HCC) 08/27/2015 Panic disorder without agoraphobia PMH - PAST MEDICAL HISTORY OF color vision normal PMH - PAST MEDICAL HISTORY OF "vascular disease" 01/2002 PMH - PAST MEDICAL HISTORY OF wearing glasses and broke ankle at age 3, wrist fracture depression PAST SURGICAL HISTORY Procedure Laterality Date 2D ECHO COMPLETE INP 01/03/2015 EF=67%, WNL FAMILY HISTORY Problem Relation Age of Onset Asthma Mother Psychiatry Mother Bi-Polar Hypertension Maternal Grandmother Heart Maternal Grandfather triple by pass heart diagnosed in Stroke Paternal Grandmother Cancer Paternal Grandmother Heart Paternal Grandfather heart attack. . Emphysema Paternal Grandfather Diabetes Other maternal side Social History Tobacco Use Smoking status: Never Smokeless tobacco: Never Tobacco comments: Pt denies Vaping Use Vaping Use: Never used Substance Use Topics Alcohol use: No Drug use: No Comment: Pt denies Current Outpatient Medications Medication Sig Dispense Refill blood sugar diagnostic (BLOOD GLUCOSE TEST) test strip Use five times a day as ACOG guidelines for gestational daibetes 150 Strip 3 Lancets lancets Use five times daily as recommended by ACOG for gestational diabetes 150 Each 3 alcohol swabs Use five times daily as per protocol by ACOG 150 Each 3 lamoTRIgine (LAMICTAL) 150 mg tablet Take 150 mg by mouth once daily. Sennosides (SENOKOT EXTRA STRENGTH) 17.2 mg tab Take 1 tablet by mouth once daily. 20 tablet 3 risperiDONE (RISPERDAL) 1 mg tablet Take 1 tablet by mouth daily at bedtime. Kgydjuuy-Ir-Kkc-Fe-FA tab Take 1 tablet by mouth once daily. 30 tablet 11 No current facility-administered medications for this visit. Allergies As of Date: 06/30/2022 Allergen Noted Reaction CHOCOLATE 11/08/2013 Rash CAFFEINE 09/17/2020 Rash MELATONIN 04/05/2020 Shortness of Breath ONION 05/25/2022 GI Upset ADHESIVE TAPE (ROSINS) 12/28/2018 Rash and Itching MOSQUITOS 02/04/2006 Swelling PHENERGAN [PROMETHAZINE HCL] 05/15/2018 GI Upset SUNSCREEN 11/13/2015 Rash ZYRTEC [CETIRIZINE HCL] 02/16/2019 Other: See Comments Fully Assessed 06/25/2022 REVIEW OF SYSTEMS: General: no fever, chills or acute changes in weight in the last 6 months Skin: no rashes, pruritis or dry skin Eyes: no blurred or double vision or eye pain Cardiac: denies chest pain, heart palpitations or orthopnea Pulmonary: denies wheezing, productive cough or exertional dyspnea GI: still with some issues with morning sickness. Musc: denies history of upper or lower extremity weakness Reproductive: gravid at 36 weeks gestation, Endocrine: complains of nocturia Hematology: Negative for anemia, easy bleeding and bruising. PHYSICAL EXAM: no vitals as this was a virtual visit General - well appearing, no acute Eyes- sclera non-icteric, EOMs intact Abd- gravid at 36 weeks Ext- no edema Neuro- AAO x 3, no focal deficits. DATA: Component Latest Ref Rng & Units 05/06/2022 05/12/2022 Glucose Scrn, Preg 74 - 134 mg/dL 135 (H) Glucose GST, Fasting 74 - 94 mg/dL 87 Glucose GST, 1 Hr 74 - 179 mg/dL 189 (H) Glucose GST, 2 Hr 74 - 154 mg/dL 172 (H) Glucose GST, 3 Hr 74 - 139 mg/dL 152 (H) TSH Date Value Ref Range Status 03/23/2019 1.400 0.400 - 5.500 uU/mL Final Comment: If the patient is , TSH reference range varies by gestational period: First Trimester 0.100-2.500 uU/mL Second Trimester 0.200-3.000 uU/mL Third Trimester 0.300-3.000 uU/mL References: 1. Madrigal, Aleah M, Michelle EK, et al. Management of Thyroid Dysfunction during and : An Endocrine Society Clinical Practice Guideline. J Clin Endocrinol Metab, 2012:97:4896-6835. 2. Jorge Alberto EVANS. Overview of thyroid disease in . UpToDate. 2016. Accessed on May 09, 2016. IMPRESSION: Ms. Huang is a 32 year old female at 32+ weeks gestation here for evaluation of gestational diabetes. RECOMMENDATIONS: 1. The patient was counseled regarding the maternal and risks of hyperglycemia during . risks include, but are not limited to: congenital abnormalities, hypoxia and stillbirth, macrosomia, shoulder dystocia and hypoglycemia. Maternal risks include increased risks of pre-eclampsia and delivery. 2. I recommend the patient check her blood glucose fasting and 2 hour after each meal, we have provided her with a glucometer if she does not have one. The following blood glucose targets were discussed: fasting blood glucose concentration between 60-90 mg/dL, and 2 hour postprandial blood glucose concentration of less than 120 mg/dL. She was encouraged to limit carbohydrate intake, to walk after meals, (if not contraindicated) and will be scheduled with our dietitian, (if not done already). Regarding her blood glucose management, I recommend she do the followin) check your sugars fasting (60-90 mg/dL) and 2 hours post meal (less than 120 mg/dL) 2) forward me your blood glucose data weekly ( ) as you have been doing for the duration of your 3) continue with lifestyle modifications as you are doing for now 4) ok to discontinue BG monitoring (and insulin if applicable) after delivery. 5) you should get 2 hour GTT (glucose tolerance test) 8 weeks after delivery to ensure resolution of the diabetes- I will report these results to you when available. Rosalva will call us with any questions or concerns in the interim. She met with our RN after this visit for insulin instruction. 3. TSH was ordered today, if not done previously during this . 4 Patient will require repeat 2 hr 75g OGTT 8 weeks after delivery to ensure resolution of diabetes. She was counseled that her chances of future pregnancies complicated by diabetes are high, and her 5 year risk of developing diabetes approaches 50%. Adherence to proper diet and exercise regimen will help reduce these risks. I spent a total of 60 minutes on the date of the service which included preparing to see the patient, [id number] patient care, completing clinical documentation, obtaining and/or reviewing separately obtained history, performing a medically appropriate examination, counseling and educating the patient/family/caregiver and ordering medications, tests, or procedures. Vincent Ocampo DO documented in this encounter [facility] 06-30-2022 Nurse Note Called patient on mobile number for intake-no answer left vm with instructions. documented in this encounter [facility] 06-26-2022 Miscellaneous Notes Glucose readings have been entered documented in this encounter [facility] 06-25-2022 Miscellaneous Notes Rosalva was added on for complaints of vaginal bulging and pressure and soreness. Active baby, no bleeding, no leaking of fluid,, no abdominal pain or contractions. Perineum with slight vasocongestion, moderate cystocele noted as well as scarring from previous delivery around clitoral lora. Presenting part is high. ASSESSMENT/PLAN: 1. care in third trimester - ICD9: V22.1, ICD10: Z34.93 (primary diagnosis) - ROUTINE, GROUP B STREP PCR 2. Gestational diabetes mellitus (GDM) affecting second - ICD9: 648.80, ICD10: O24.419 Controlled. - FBS < 90 2 hour pp < 120 Noticing which foods causes spike 3. Pyelectasis of fetus on ultrasound - ICD9: 796.5, ICD10: O35.8XX0 Reviewed plans for after delivery 4. Anxiety state - ICD9: 300.00, ICD10: F41.1 stable 5. Pelvic pressure in - ICD9: 646.83, 625.9, ICD10: O26.899, R10.2 - reassurance and comfort measures discussed 6. Breech presentation: discussed options of EV or primary LTCS. Risks, benefits and protocol for both discussed. She will consider and give us her decision Shalonda Krause APRN.CNM Medical Decision Making: Problems: Low: Acute, uncomplicated illness or injury Moderate: New problem with uncertain prognosis Data: Unique test result(s) reviewed: 1 Unique test(s) ordered: 2 Risk: Moderate: Moderate risk from testing/treatment Medical Decision Making Level: 4 - Moderate documented in this encounter [facility] 06-25-2022 History of Past i llness Narrative Problem Noted Date Resolved Date Pelvic pressure in 06/25/2022 (spontaneous vaginal delivery) 04/17/2021 05/07/2021 Admitted to labor and delivery 04/16/2021 0 05/07/2021 Full-term premature rupture of membranes 021 05/07/2021 Rubella non-immune status, antepartum 10/16/2020 05/07/2021 Encounter for supervision of normal first pregna ncy 09/17/2020 05/07/2021 Peripheral vertigo 07/18/2019 09/17/2020 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/16/2019 CHATO positive 02/16/2019 09/17/2020 Itching 02/16/2019 09/17/2020 Rash 02/16/2019 09/17/2020 Vomiting, persistent, in adult 02/16/2019 1 Routine gynecological examination 10/26/2014 09/17/2020 Endometriosis 10/26/2014 10/16/2020 Other protein-calorie malnutrition 04/06/2006 09/17/2020 documented as of this encounter (statuses as of 09/05/2022) [facility] History of Past illness Narrative* Problem Noted Date Resolved Date Pelvic pressure in 06/25/2022 (spontaneous vaginal delivery) 04/17/2021 05/07/2021 Admitted to labor and delivery 04/16/2021 0 05/07/2021 Full-term premature rupture of membranes 021 05/07/2021 Rubella non-immune status, antepartum 10/16/2020 05/07/2021 Encounter for supervision of normal first pregna ncy 09/17/2020 05/07/2021 Peripheral vertigo 07/18/2019 09/17/2020 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/16/2019 CHATO positive 02/16/2019 09/17/2020 Itching 02/16/2019 09/17/2020 Rash 02/16/2019 09/17/2020 Vomiting, persistent, in adult 02/16/2019 1 Routine gynecological examination 10/26/2014 09/17/2020 Endometriosis 10/26/2014 10/16/2020 Other protein-calorie malnutrition 04/06/2006 09/17/2020 documented as of this encounter (statuses as of 09/09/2022) [facility] History of Past illness Narrative* Problem Noted Date Resolved Date Pelvic pressure in 06/25/2022 (spontaneous vaginal delivery) 04/17/2021 05/07/2021 Admitted to labor and delivery 04/16/2021 0 05/07/2021 Full-term premature rupture of membranes 021 05/07/2021 Rubella non-immune status, antepartum 10/16/2020 05/07/2021 Encounter for supervision of normal first pregna ncy 09/17/2020 05/07/2021 Peripheral vertigo 07/18/2019 09/17/2020 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/16/2019 CHATO positive 02/16/2019 09/17/2020 Itching 02/16/2019 09/17/2020 Rash 02/16/2019 09/17/2020 Vomiting, persistent, in adult 02/16/2019 1 Routine gynecological examination 10/26/2014 09/17/2020 Endometriosis 10/26/2014 10/16/2020 Other protein-calorie malnutrition 04/06/2006 09/17/2020 documented as of this encounter (statuses as of 09/25/2022) [facility] History of Past illness Narrative* Problem Noted Date Resolved Date Pelvic pressure in 06/25/2022 (spontaneous vaginal delivery) 04/17/2021 05/07/2021 Admitted to labor and delivery 04/16/2021 0 05/07/2021 Full-term premature rupture of membranes 021 05/07/2021 Rubella non-immune status, antepartum 10/16/2020 05/07/2021 Encounter for supervision of normal first pregna ncy 09/17/2020 05/07/2021 Peripheral vertigo 07/18/2019 09/17/2020 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/16/2019 CHATO positive 02/16/2019 09/17/2020 Itching 02/16/2019 09/17/2020 Rash 02/16/2019 09/17/2020 Vomiting, persistent, in adult 02/16/2019 1 Routine gynecological examination 10/26/2014 09/17/2020 Endometriosis 10/26/2014 10/16/2020 Other protein-calorie malnutrition 04/06/2006 09/17/2020 documented as of this encounter (statuses as of 10/28/2022) [facility] History of Past illness Narrative* Problem Noted Date Resolved Date Pelvic pressure in 06/25/2022 (spontaneous vaginal delivery) 04/17/2021 05/07/2021 Admitted to labor and delivery 04/16/2021 0 05/07/2021 Full-term premature rupture of membranes 021 05/07/2021 Rubella non-immune status, antepartum 10/16/2020 05/07/2021 Encounter for supervision of normal first pregna ncy 09/17/2020 05/07/2021 Peripheral vertigo 07/18/2019 09/17/2020 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/16/2019 CHATO positive 02/16/2019 09/17/2020 Itching 02/16/2019 09/17/2020 Rash 02/16/2019 09/17/2020 Vomiting, persistent, in adult 02/16/2019 1 Routine gynecological examination 10/26/2014 09/17/2020 Endometriosis 10/26/2014 10/16/2020 Other protein-calorie malnutrition 04/06/2006 09/17/2020 documented as of this encounter (statuses as of 10/28/2022) [facility] History of Past illness Narrative* Problem Noted Date Resolved Date Pelvic pressure in 06/25/2022 (spontaneous vaginal delivery) 04/17/2021 05/07/2021 Admitted to labor and delivery 04/16/2021 0 05/07/2021 Full-term premature rupture of membranes 021 05/07/2021 Rubella non-immune status, antepartum 10/16/2020 05/07/2021 Encounter for supervision of normal first pregna ncy 09/17/2020 05/07/2021 Peripheral vertigo 07/18/2019 09/17/2020 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/16/2019 HCATO positive 02/16/2019 09/17/2020 Itching 02/16/2019 09/17/2020 Rash 02/16/2019 09/17/2020 Vomiting, persistent, in adult 02/16/2019 1 Routine gynecological examination 10/26/2014 09/17/2020 Endometriosis 10/26/2014 10/16/2020 Other protein-calorie malnutrition 04/06/2006 09/17/2020 documented as of this encounter (statuses as of 11/28/2022) [facility] History of Past illness Narrative* Problem Noted Date Resolved Date Pelvic pressure in 06/25/2022 (spontaneous vaginal delivery) 04/17/2021 05/07/2021 Admitted to labor and delivery 04/16/2021 0 05/07/2021 Full-term premature rupture of membranes 021 05/07/2021 Rubella non-immune status, antepartum 10/16/2020 05/07/2021 Encounter for supervision of normal first pregna ncy 09/17/2020 05/07/2021 Peripheral vertigo 07/18/2019 09/17/2020 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/16/2019 CHATO positive 02/16/2019 09/17/2020 Itching 02/16/2019 09/17/2020 Rash 02/16/2019 09/17/2020 Vomiting, persistent, in adult 02/16/2019 1 Routine gynecological examination 10/26/2014 09/17/2020 Endometriosis 10/26/2014 10/16/2020 Other protein-calorie malnutrition 04/06/2006 09/17/2020 documented as of this encounter (statuses as of 01/03/2023) [facility] History of Past illness Narrative* Problem Noted Date Resolved Date Pelvic pressure in 06/25/2022 (spontaneous vaginal delivery) 04/17/2021 05/07/2021 Admitted to labor and delivery 04/16/2021 0 05/07/2021 Full-term premature rupture of membranes 021 05/07/2021 Rubella non-immune status, antepartum 10/16/2020 05/07/2021 Encounter for supervision of normal first pregna ncy 09/17/2020 05/07/2021 Peripheral vertigo 07/18/2019 09/17/2020 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/16/2019 CHATO positive 02/16/2019 09/17/2020 Itching 02/16/2019 09/17/2020 Rash 02/16/2019 09/17/2020 Vomiting, persistent, in adult 02/16/2019 1 Routine gynecological examination 10/26/2014 09/17/2020 Endometriosis 10/26/2014 10/16/2020 Other protein-calorie malnutrition 04/06/2006 09/17/2020 documented as of this encounter (statuses as of 01/05/2023) [facility]08-03-2022 History of Past illness Narrative* Problem Noted Date Resolved Date Pelvic pressure in 06/25/2022 (spontaneous vaginal delivery) 04/17/2021 05/07/2021 Admitted to labor and delivery 04/16/2021 0 05/07/2021 Full-term premature rupture of membranes 021 05/07/2021 Rubella non-immune status, antepartum 10/16/2020 05/07/2021 Encounter for supervision of normal first pregna ncy 09/17/2020 05/07/2021 Peripheral vertigo 07/18/2019 09/17/2020 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/16/2019 CHATO positive 02/16/2019 09/17/2020 Itching 02/16/2019 09/17/2020 Rash 02/16/2019 09/17/2020 Vomiting, persistent, in adult 02/16/2019 1 Routine gynecological examination 10/26/2014 09/17/2020 Endometriosis 10/26/2014 10/16/2020 Other protein-calorie malnutrition 04/06/2006 09/17/2020 documented as of this encounter (statuses as of 2023) [facility]08-[facility]2022 History of Past illness Narrative* Problem Noted Date Resolved Date Pelvic pressure in 06/25/2022 (spontaneous vaginal delivery) 04/17/2021 05/07/2021 Admitted to labor and delivery 04/16/2021 0 05/07/2021 Full-term premature rupture of membranes 021 05/07/2021 Rubella non-immune status, antepartum 10/16/2020 05/07/2021 Encounter for supervision of normal first pregna ncy 09/17/2020 05/07/2021 Peripheral vertigo 07/18/2019 09/17/2020 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/16/2019 CHATO positive 02/16/2019 09/17/2020 Itching 02/16/2019 09/17/2020 Rash 02/16/2019 09/17/2020 Vomiting, persistent, in adult 02/16/2019 1 Routine gynecological examination 10/26/2014 09/17/2020 Endometriosis 10/26/2014 10/16/2020 Other protein-calorie malnutrition 04/06/2006 09/17/2020 documented as of this encounter (statuses as of 01/28/2023) [facility]2022 History of Past illness Narrative* Problem Noted Date Resolved Date Pelvic pressure in 06/25/2022 (spontaneous vaginal delivery) 04/17/2021 05/07/2021 Admitted to labor and delivery 04/16/2021 0 05/07/2021 Full-term premature rupture of membranes 021 05/07/2021 Rubella non-immune status, antepartum 10/16/2020 05/07/2021 Encounter for supervision of normal first pregna ncy 09/17/2020 05/07/2021 Peripheral vertigo 07/18/2019 09/17/2020 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/16/2019 CHATO positive 02/16/2019 09/17/2020 Itching 02/16/2019 09/17/2020 Rash 02/16/2019 09/17/2020 Vomiting, persistent, in adult 02/16/2019 1 Routine gynecological examination 10/26/2014 09/17/2020 Endometriosis 10/26/2014 10/16/2020 Other protein-calorie malnutrition 04/06/2006 09/17/2020 documented as of this encounter (statuses as of 05/25/2023) [facility] History of Past illness Narrative* Problem Noted Date Diagnosed Date Resolved Date Pelvic pressure in 06/25/2022 09/05/2022 (spontaneous vaginal delivery) 04/17/2021 05/07/2021 Admitted to labor and delivery 04/16/2021 05/07/2021 Full-term premature rupture of membranes 04/16/2021 05/07/2021 Rubella non-immune status, antepartum 10/16/2020 05/07/2021 Encounter for supervision of normal first 09/17/2020 05/07/2021 Peripheral vertigo 07/18/2019 0 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/16/2019 09/17/2020 CHATO positive 02/16/2019 09/17/2020 Itching 02/16/2019 09/17/2020 Rash 02/16/2019 09/17/2020 Vomiting, persistent, in adult 02/16/2019 09/17/2020 Routine gynecological examination 10/26/2014 09/17/2020 Endometriosis 10/26/2014 10/16/2020 Other protein-calorie malnutrition 04/06/2006 09/17/2020 documented as of this encounter (statuses as of 06/09/2023) [facility]08[facility]20[facility] History of Past illness Narrative* Problem Noted Date Diagnosed Date Resolved Date Pelvic pressure in 06/25/2022 09/05/2022 (spontaneous vaginal delivery) 04/17/2021 05/07/2021 Admitted to labor and delivery 04/16/2021 05/07/2021 Full-term premature rupture of membranes 04/16/2021 05/07/2021 Rubella non-immune status, antepartum 10/16/2020 05/07/2021 Encounter for supervision of normal first 09/17/2020 05/07/2021 Peripheral vertigo 07/18/2019 0 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/16/2019 09/17/2020 CHATO positive 02/16/2019 09/17/2020 Itching 02/16/2019 09/17/2020 Rash 02/16/2019 09/17/2020 Vomiting, persistent, in adult 02/16/2019 09/17/2020 Routine gynecological examination 10/26/2014 09/17/2020 Endometriosis 10/26/2014 10/16/2020 Other protein-calorie malnutrition 04/06/2006 09/17/2020 documented as of this encounter (statuses as of 07/02/2023) [facility]08[facility]2022 History of Past illness Narrative* Problem Noted Date Diagnosed Date Resolved Date Pelvic pressure in 06/25/2022 09/05/2022 (spontaneous vaginal delivery) 04/17/2021 05/07/2021 Admitted to labor and delivery 04/16/2021 05/07/2021 Full-term premature rupture of membranes 04/16/2021 05/07/2021 Rubella non-immune status, antepartum 10/16/2020 05/07/2021 Encounter for supervision of normal first 09/17/2020 05/07/2021 Peripheral vertigo 07/18/2019 0 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/16/2019 09/17/2020 CHATO positive 02/16/2019 09/17/2020 Itching 02/16/2019 09/17/2020 Rash 02/16/2019 09/17/2020 Vomiting, persistent, in adult 02/16/2019 09/17/2020 Routine gynecological examination 10/26/2014 09/17/2020 Endometriosis 10/26/2014 10/16/2020 Other protein-calorie malnutrition 04/06/2006 09/17/2020 documented as of this encounter (statuses as of 07/14/2023) [facility]08[facility]2022 History of Past illness Narrative* Problem Noted Date Diagnosed Date Resolved Date Pelvic pressure in 06/25/2022 09/05/2022 (spontaneous vaginal delivery) 04/17/2021 05/07/2021 Admitted to labor and delivery 04/16/2021 05/07/2021 Full-term premature rupture of membranes 04/16/2021 05/07/2021 Rubella non-immune status, antepartum 10/16/2020 05/07/2021 Encounter for supervision of normal first 09/17/2020 05/07/2021 Peripheral vertigo 07/18/2019 0 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/16/2019 09/17/2020 CHATO positive 02/16/2019 09/17/2020 Itching 02/16/2019 09/17/2020 Rash 02/16/2019 09/17/2020 Vomiting, persistent, in adult 02/16/2019 09/17/2020 Routine gynecological examination 10/26/2014 09/17/2020 Endometriosis 10/26/2014 10/16/2020 Other protein-calorie malnutrition 04/06/2006 09/17/2020 documented as of this encounter (statuses as of 07/15/2023) [facility]08[facility]2022 History of Past illness Narrative* Problem Noted Date Diagnosed Date Resolved Date Pelvic pressure in 06/25/2022 09/05/2022 (spontaneous vaginal delivery) 04/17/2021 05/07/2021 Admitted to labor and delivery 04/16/2021 05/07/2021 Full-term premature rupture of membranes 04/16/2021 05/07/2021 Rubella non-immune status, antepartum 10/16/2020 05/07/2021 Encounter for supervision of normal first 09/17/2020 05/07/2021 Peripheral vertigo 07/18/2019 0 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/16/2019 09/17/2020 CHATO positive 02/16/2019 09/17/2020 Itching 02/16/2019 09/17/2020 Rash 02/16/2019 09/17/2020 Vomiting, persistent, in adult 02/16/2019 09/17/2020 Routine gynecological examination 10/26/2014 09/17/2020 Endometriosis 10/26/2014 10/16/2020 Other protein-calorie malnutrition 04/06/2006 09/17/2020 documented as of this encounter (statuses as of 09/15/2023) [address]03-2022 History of Past illness Narrative* Problem Noted Date Diagnosed Date Resolved Date Pelvic pressure in 06/25/2022 09/05/2022 (spontaneous vaginal delivery) 04/17/2021 05/07/2021 Admitted to labor and delivery 04/16/2021 05/07/2021 Full-term premature rupture of membranes 04/16/2021 05/07/2021 Rubella non-immune status, antepartum 10/16/2020 05/07/2021 Encounter for supervision of normal first 09/17/2020 05/07/2021 Peripheral vertigo 07/18/2019 0 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/16/2019 09/17/2020 CHATO positive 02/16/2019 09/17/2020 Itching 02/16/2019 09/17/2020 Rash 02/16/2019 09/17/2020 Vomiting, persistent, in adult 02/16/2019 09/17/2020 Routine gynecological examination 10/26/2014 09/17/2020 Endometriosis 10/26/2014 10/16/2020 Other protein-calorie malnutrition 04/06/2006 09/17/2020 documented as of this encounter (statuses as of 09/30/2023) [facility]08-[facility]2022 History of Past illness Narrative* Problem Noted Date Diagnosed Date Resolved Date Pelvic pressure in 06/25/2022 09/05/2022 (spontaneous vaginal delivery) 04/17/2021 05/07/2021 Admitted to labor and delivery 04/16/2021 05/07/2021 Full-term premature rupture of membranes 04/16/2021 05/07/2021 Rubella non-immune status, antepartum 10/16/2020 05/07/2021 Encounter for supervision of normal first 09/17/2020 05/07/2021 Peripheral vertigo 07/18/2019 0 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/16/2019 09/17/2020 CHATO positive 02/16/2019 09/17/2020 Itching 02/16/2019 09/17/2020 Rash 02/16/2019 09/17/2020 Vomiting, persistent, in adult 02/16/2019 09/17/2020 Routine gynecological examination 10/26/2014 09/17/2020 Endometriosis 10/26/2014 10/16/2020 Other protein-calorie malnutrition 04/06/2006 09/17/2020 documented as of this encounter (statuses as of 10/01/2023) [facility]08[facility]2022 History of Past illness Narrative* Problem Noted Date Diagnosed Date Resolved Date Pelvic pressure in 06/25/2022 09/05/2022 (spontaneous vaginal delivery) 04/17/2021 05/07/2021 Admitted to labor and delivery 04/16/2021 05/07/2021 Full-term premature rupture of membranes 04/16/2021 05/07/2021 Rubella non-immune status, antepartum 10/16/2020 05/07/2021 Encounter for supervision of normal first 09/17/2020 05/07/2021 Peripheral vertigo 07/18/2019 0 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/16/2019 09/17/2020 CHATO positive 02/16/2019 09/17/2020 Itching 02/16/2019 09/17/2020 Rash 02/16/2019 09/17/2020 Vomiting, persistent, in adult 02/16/2019 09/17/2020 Routine gynecological examination 10/26/2014 09/17/2020 Endometriosis 10/26/2014 10/16/2020 Other protein-calorie malnutrition 04/06/2006 09/17/2020 documented as of this encounter (statuses as of 10/14/2023) [facility]08[facility]2022 History of Past illness Narrative* Problem Noted Date Diagnosed Date Resolved Date Pelvic pressure in 06/25/2022 09/05/2022 (spontaneous vaginal delivery) 04/17/2021 05/07/2021 Admitted to labor and delivery 04/16/2021 05/07/2021 Full-term premature rupture of membranes 04/16/2021 05/07/2021 Rubella non-immune status, antepartum 10/16/2020 05/07/2021 Encounter for supervision of normal first 09/17/2020 05/07/2021 Peripheral vertigo 07/18/2019 0 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/16/2019 09/17/2020 CHATO positive 02/16/2019 09/17/2020 Itching 02/16/2019 09/17/2020 Rash 02/16/2019 09/17/2020 Vomiting, persistent, in adult 02/16/2019 09/17/2020 Routine gynecological examination 10/26/2014 09/17/2020 Endometriosis 10/26/2014 10/16/2020 Other protein-calorie malnutrition 04/06/2006 09/17/2020 documented as of this encounter (statuses as of 10/23/2023) [facility]08[facility]2022 History of Past illness Narrative* Problem Noted Date Diagnosed Date Resolved Date Pelvic pressure in 06/25/2022 09/05/2022 (spontaneous vaginal delivery) 04/17/2021 05/07/2021 Admitted to labor and delivery 04/16/2021 05/07/2021 Full-term premature rupture of membranes 04/16/2021 05/07/2021 Rubella non-immune status, antepartum 10/16/2020 05/07/2021 Encounter for supervision of normal first 09/17/2020 05/07/2021 Peripheral vertigo 07/18/2019 0 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/16/2019 09/17/2020 CHATO positive 02/16/2019 09/17/2020 Itching 02/16/2019 09/17/2020 Rash 02/16/2019 09/17/2020 Vomiting, persistent, in adult 02/16/2019 09/17/2020 Routine gynecological examination 10/26/2014 09/17/2020 Endometriosis 10/26/2014 10/16/2020 Other protein-calorie malnutrition 04/06/2006 09/17/2020 documented as of this encounter (statuses as of 12/29/2023) [facility]08[facility]2022 History of Past illness Narrative* Problem Noted Date Diagnosed Date Resolved Date Pelvic pressure in 06/25/2022 09/05/2022 (spontaneous vaginal delivery) 04/17/2021 05/07/2021 Admitted to labor and delivery 04/16/2021 05/07/2021 Full-term premature rupture of membranes 04/16/2021 05/07/2021 Rubella non-immune status, antepartum 10/16/2020 05/07/2021 Encounter for supervision of normal first 09/17/2020 05/07/2021 Peripheral vertigo 07/18/2019 0 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/16/2019 09/17/2020 CHATO positive 02/16/2019 09/17/2020 Itching 02/16/2019 09/17/2020 Rash 02/16/2019 09/17/2020 Vomiting, persistent, in adult 02/16/2019 09/17/2020 Routine gynecological examination 10/26/2014 09/17/2020 Endometriosis 10/26/2014 10/16/2020 Other protein-calorie malnutrition 04/06/2006 09/17/2020 documented as of this encounter (statuses as of 12/29/2023) [facility] History of Past illness Narrative* Problem Noted Date Diagnosed Date Resolved Date Pelvic pressure in 06/25/2022 09/05/2022 (spontaneous vaginal delivery) 04/17/2021 05/07/2021 Admitted to labor and delivery 04/16/2021 05/07/2021 Full-term premature rupture of membranes 04/16/2021 05/07/2021 Rubella non-immune status, antepartum 10/16/2020 05/07/2021 Encounter for supervision of normal first 09/17/2020 05/07/2021 Peripheral vertigo 07/18/2019 0 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/16/2019 09/17/2020 CHATO positive 02/16/2019 09/17/2020 Itching 02/16/2019 09/17/2020 Rash 02/16/2019 09/17/2020 Vomiting, persistent, in adult 02/16/2019 09/17/2020 Routine gynecological examination 10/26/2014 09/17/2020 Endometriosis 10/26/2014 10/16/2020 Other protein-calorie malnutrition 04/06/2006 09/17/2020 documented as of this encounter (statuses as of 01/01/2024) [facility]08[facility]2022 History of Past illness Narrative* Problem Noted Date Diagnosed Date Resolved Date Pelvic pressure in 06/25/2022 09/05/2022 (spontaneous vaginal delivery) 04/17/2021 05/07/2021 Admitted to labor and delivery 04/16/2021 05/07/2021 Full-term premature rupture of membranes 04/16/2021 05/07/2021 Rubella non-immune status, antepartum 10/16/2020 05/07/2021 Encounter for supervision of normal first 09/17/2020 05/07/2021 Peripheral vertigo 07/18/2019 0 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/16/2019 09/17/2020 CHATO positive 02/16/2019 09/17/2020 Itching 02/16/2019 09/17/2020 Rash 02/16/2019 09/17/2020 Vomiting, persistent, in adult 02/16/2019 09/17/2020 Routine gynecological examination 10/26/2014 09/17/2020 Endometriosis 10/26/2014 10/16/2020 Other protein-calorie malnutrition 04/06/2006 09/17/2020 documented as of this encounter (statuses as of 01/01/2024) [facility] History of Past illness Narrative* Problem Noted Date Diagnosed Date Resolved Date Pelvic pressure in 06/25/2022 09/05/2022 (spontaneous vaginal delivery) 04/17/2021 05/07/2021 Admitted to labor and delivery 04/16/2021 05/07/2021 Full-term premature rupture of membranes 04/16/2021 05/07/2021 Rubella non-immune status, antepartum 10/16/2020 05/07/2021 Encounter for supervision of normal first 09/17/2020 05/07/2021 Peripheral vertigo 07/18/2019 0 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/16/2019 09/17/2020 CHATO positive 02/16/2019 09/17/2020 Itching 02/16/2019 09/17/2020 Rash 02/16/2019 09/17/2020 Vomiting, persistent, in adult 02/16/2019 09/17/2020 Routine gynecological examination 10/26/2014 09/17/2020 Endometriosis 10/26/2014 10/16/2020 Other protein-calorie malnutrition 04/06/2006 09/17/2020 documented as of this encounter (statuses as of 01/02/2024) [facility] History of Past illness Narrative* Problem Noted Date Diagnosed Date Resolved Date Pelvic pressure in 06/25/2022 09/05/2022 (spontaneous vaginal delivery) 04/17/2021 05/07/2021 Admitted to labor and delivery 04/16/2021 05/07/2021 Full-term premature rupture of membranes 04/16/2021 05/07/2021 Rubella non-immune status, antepartum 10/16/2020 05/07/2021 Encounter for supervision of normal first 09/17/2020 05/07/2021 Peripheral vertigo 07/18/2019 0 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/16/2019 09/17/2020 CHATO positive 02/16/2019 09/17/2020 Itching 02/16/2019 09/17/2020 Rash 02/16/2019 09/17/2020 Vomiting, persistent, in adult 02/16/2019 09/17/2020 Routine gynecological examination 10/26/2014 09/17/2020 Endometriosis 10/26/2014 10/16/2020 Other protein-calorie malnutrition 04/06/2006 09/17/2020 documented as of this encounter (statuses as of 01/06/2024) [facility] History of Past illness Narrative* Problem Noted Date Diagnosed Date Resolved Date Pelvic pressure in 06/25/2022 09/05/2022 (spontaneous vaginal delivery) 04/17/2021 05/07/2021 Admitted to labor and delivery 04/16/2021 05/07/2021 Full-term premature rupture of membranes 04/16/2021 05/07/2021 Rubella non-immune status, antepartum 10/16/2020 05/07/2021 Encounter for supervision of normal first 09/17/2020 05/07/2021 Peripheral vertigo 07/18/2019 0 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/16/2019 09/17/2020 CHATO positive 02/16/2019 09/17/2020 Itching 02/16/2019 09/17/2020 Rash 02/16/2019 09/17/2020 Vomiting, persistent, in adult 02/16/2019 09/17/2020 Routine gynecological examination 10/26/2014 09/17/2020 Endometriosis 10/26/2014 10/16/2020 Other protein-calorie malnutrition 04/06/2006 09/17/2020 documented as of this encounter (statuses as of 01/06/2024) [facility] History of Past illness Narrative* Problem Noted Date Diagnosed Date Resolved Date Pelvic pressure in 06/25/2022 09/05/2022 (spontaneous vaginal delivery) 04/17/2021 05/07/2021 Admitted to labor and delivery 04/16/2021 05/07/2021 Full-term premature rupture of membranes 04/16/2021 05/07/2021 Rubella non-immune status, antepartum 10/16/2020 05/07/2021 Encounter for supervision of normal first 09/17/2020 05/07/2021 Peripheral vertigo 07/18/2019 0 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/16/2019 09/17/2020 CHATO positive 02/16/2019 09/17/2020 Itching 02/16/2019 09/17/2020 Rash 02/16/2019 09/17/2020 Vomiting, persistent, in adult 02/16/2019 09/17/2020 Routine gynecological examination 10/26/2014 09/17/2020 Endometriosis 10/26/2014 10/16/2020 Other protein-calorie malnutrition 04/06/2006 09/17/2020 documented as of this encounter (statuses as of 01/11/2024) [facility] History of Past illness Narrative* Problem Noted Date Diagnosed Date Resolved Date Pelvic pressure in 06/25/2022 09/05/2022 (spontaneous vaginal delivery) 04/17/2021 05/07/2021 Admitted to labor and delivery 04/16/2021 05/07/2021 Full-term premature rupture of membranes 04/16/2021 05/07/2021 Rubella non-immune status, antepartum 10/16/2020 05/07/2021 Encounter for supervision of normal first 09/17/2020 05/07/2021 Peripheral vertigo 07/18/2019 0 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/16/2019 09/17/2020 CHATO positive 02/16/2019 09/17/2020 Itching 02/16/2019 09/17/2020 Rash 02/16/2019 09/17/2020 Vomiting, persistent, in adult 02/16/2019 09/17/2020 Routine gynecological examination 10/26/2014 09/17/2020 Endometriosis 10/26/2014 10/16/2020 Other protein-calorie malnutrition 04/06/2006 09/17/2020 documented as of this encounter (statuses as of 01/15/2024) [facility] History of Past illness Narrative* Problem Noted Date Diagnosed Date Resolved Date Pelvic pressure in 06/25/2022 09/05/2022 (spontaneous vaginal delivery) 04/17/2021 05/07/2021 Admitted to labor and delivery 04/16/2021 05/07/2021 Full-term premature rupture of membranes 04/16/2021 05/07/2021 Rubella non-immune status, antepartum 10/16/2020 05/07/2021 Encounter for supervision of normal first 09/17/2020 05/07/2021 Peripheral vertigo 07/18/2019 0 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/16/2019 09/17/2020 CHATO positive 02/16/2019 09/17/2020 Itching 02/16/2019 09/17/2020 Rash 02/16/2019 09/17/2020 Vomiting, persistent, in adult 02/16/2019 09/17/2020 Routine gynecological examination 10/26/2014 09/17/2020 Endometriosis 10/26/2014 10/16/2020 Other protein-calorie malnutrition 04/06/2006 09/17/2020 documented as of this encounter (statuses as of 01/28/2024) [facility] History of Past illness Narrative* Problem Noted Date Diagnosed Date Resolved Date Pelvic pressure in 06/25/2022 09/05/2022 (spontaneous vaginal delivery) 04/17/2021 05/07/2021 Admitted to labor and delivery 04/16/2021 05/07/2021 Full-term premature rupture of membranes 04/16/2021 05/07/2021 Rubella non-immune status, antepartum 10/16/2020 05/07/2021 Encounter for supervision of normal first 09/17/2020 05/07/2021 Peripheral vertigo 07/18/2019 0 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/16/2019 09/17/2020 CHATO positive 02/16/2019 09/17/2020 Itching 02/16/2019 09/17/2020 Rash 02/16/2019 09/17/2020 Vomiting, persistent, in adult 02/16/2019 09/17/2020 Routine gynecological examination 10/26/2014 09/17/2020 Endometriosis 10/26/2014 10/16/2020 Other protein-calorie malnutrition 04/06/2006 09/17/2020 documented as of this encounter (statuses as of 01/28/2024) [facility] History of Past illness Narrative* Problem Noted Date Diagnosed Date Resolved Date Pelvic pressure in 06/25/2022 09/05/2022 (spontaneous vaginal delivery) 04/17/2021 05/07/2021 Admitted to labor and delivery 04/16/2021 05/07/2021 Full-term premature rupture of membranes 04/16/2021 05/07/2021 Rubella non-immune status, antepartum 10/16/2020 05/07/2021 Encounter for supervision of normal first 09/17/2020 05/07/2021 Peripheral vertigo 07/18/2019 0 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/16/2019 09/17/2020 CHATO positive 02/16/2019 09/17/2020 Itching 02/16/2019 09/17/2020 Rash 02/16/2019 09/17/2020 Vomiting, persistent, in adult 02/16/2019 09/17/2020 Routine gynecological examination 10/26/2014 09/17/2020 Endometriosis 10/26/2014 10/16/2020 Other protein-calorie malnutrition 04/06/2006 09/17/2020 documented as of this encounter (statuses as of 01/29/2024) [facility] History of Past illness Narrative* Problem Noted Date Diagnosed Date Resolved Date Pelvic pressure in 06/25/2022 09/05/2022 (spontaneous vaginal delivery) 04/17/2021 05/07/2021 Admitted to labor and delivery 04/16/2021 05/07/2021 Full-term premature rupture of membranes 04/16/2021 05/07/2021 Rubella non-immune status, antepartum 10/16/2020 05/07/2021 Encounter for supervision of normal first 09/17/2020 05/07/2021 Peripheral vertigo 07/18/2019 0 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/16/2019 09/17/2020 CHATO positive 02/16/2019 09/17/2020 Itching 02/16/2019 09/17/2020 Rash 02/16/2019 09/17/2020 Vomiting, persistent, in adult 02/16/2019 09/17/2020 Routine gynecological examination 10/26/2014 09/17/2020 Endometriosis 10/26/2014 10/16/2020 Other protein-calorie malnutrition 04/06/2006 09/17/2020 documented as of this encounter (statuses as of 01/31/2024) [facility] History of Past illness Narrative* Problem Noted Date Diagnosed Date Resolved Date Pelvic pressure in 06/25/2022 09/05/2022 (spontaneous vaginal delivery) 04/17/2021 05/07/2021 Admitted to labor and delivery 04/16/2021 05/07/2021 Full-term premature rupture of membranes 04/16/2021 05/07/2021 Rubella non-immune status, antepartum 10/16/2020 05/07/2021 Encounter for supervision of normal first 09/17/2020 05/07/2021 Peripheral vertigo 07/18/2019 0 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/16/2019 09/17/2020 CHATO positive 02/16/2019 09/17/2020 Itching 02/16/2019 09/17/2020 Rash 02/16/2019 09/17/2020 Vomiting, persistent, in adult 02/16/2019 09/17/2020 Routine gynecological examination 10/26/2014 09/17/2020 Endometriosis 10/26/2014 10/16/2020 Other protein-calorie malnutrition 04/06/2006 09/17/2020 documented as of this encounter (statuses as of 02/08/2024) [facility] History of Past illness Narrative* Problem Noted Date Diagnosed Date Resolved Date Pelvic pressure in 06/25/2022 09/05/2022 (spontaneous vaginal delivery) 04/17/2021 05/07/2021 Admitted to labor and delivery 04/16/2021 05/07/2021 Full-term premature rupture of membranes 04/16/2021 05/07/2021 Rubella non-immune status, antepartum 10/16/2020 05/07/2021 Encounter for supervision of normal first 09/17/2020 05/07/2021 Peripheral vertigo 07/18/2019 0 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/16/2019 09/17/2020 CHATO positive 02/16/2019 09/17/2020 Itching 02/16/2019 09/17/2020 Rash 02/16/2019 09/17/2020 Vomiting, persistent, in adult 02/16/2019 09/17/2020 Routine gynecological examination 10/26/2014 09/17/2020 Endometriosis 10/26/2014 10/16/2020 Other protein-calorie malnutrition 04/06/2006 09/17/2020 documented as of this encounter (statuses as of 02/17/2024) [facility]08-03-[facility] Nurse Note* Magui Romero Ma - 06/25/2022 1:23 PM EDT Movement? Active baby Vaginal Bleeding: NO Vaginal fluid leakage of fluid: NO Contractions: no contractions After School Counselor offered: Patient declines. documented in this encounter[facility] Miscellaneous Notes* Telephone Encounter - Danica Santana RN - 06/25/2022 9:43 AM EDT Geoffrey Liz Pt was offered and agreed to come in to day at 1 pm to be worked into the schedule * Telephone Encounter - Daniac Santana RN - 06/25/2022 9:15 AM EDT Call to Pt for follow up Pt has more labial swelling and sharp pain located near the urethra Soaks have not helped Pt asking if she can be seen today? Please advise there are no open slots Thanks * Telephone Encounter - Danica Santana RN - 06/20/2022 9:27 AM EDT Call to Pt who has c/o vaginal pain Pt has had re occurring BV States the "Pain" is more of a irritation Stopped intercourse due to this recent vaginal irritation Last 2-3 days vaginal tissue near urethra is swollen No pain with urination, no frequency but has some pressure emptying out due to Occasional Pain in lower abdomen Has some vaginal discharge that Pt feels is normal with and it is increased on some days Has a slight "off odor not fishy" in the vaginal discharge Is clear Reviewed some swelling of the mucous membranes can be considered normal the closer to TRISHA Encouraged cool soaks in the bath tub or sitz bath, cool rinse off after urinating, pillows for positioning when laying down etc Next OB visit scheduled for 07/03/22 Encouraged to keep appointment or to call for a sooner appointment should symptoms not resolve or become worse Please review and advise anything further in Shalonda's absence Thanks * Telephone Encounter - Feli Sanders - 06/20/2022 9:26 AM EDT Patient is having vag. Pain. She is not sure if it is BV related. documented in this encounterPark[facility] History of Present illness Narrative* Lebron Juares RD - 06/11/2022 1:00 PM EDT [facility] Medical Nutrition Therapy Visit Type: In-Person (Face to Face): Patient states reason for visit: GDM Management Initial DEMOGRAPHICS: Co-Morbidities: PAST MEDICAL HISTORY Diagnosis Date Endometriosis 10/26/2014 never had diagnostic lap to confirm, patient did not want surgery Gestational diabetes mellitus (GDM) affecting second 05/25/2022 Infertility, female Migraine without aura and without status migrainosus, not intractable 07/18/2019 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HCC) 08/27/2015 Panic disorder without agoraphobia PMH - PAST MEDICAL HISTORY OF color vision normal PMH - PAST MEDICAL HISTORY OF "vascular disease" 01/2002 PMH - PAST MEDICAL HISTORY OF wearing glasses and broke ankle at age 3, wrist fracture depression Activity: Do you do a regular exercise Yes; how many days per week 5+ How long each day? 30-60 min Type of Exercise: "super active with Nilam" Sometimes walks with Nilam Symptoms: Patient's symptoms are as follows: GDM How many hours of sleep on average? Did not report Diet History:"touble eating-early satiety" Breakfast: 7:30 am protein shake w/ fruit OR PBJ Lunch: salad w/ spinach and salmon Snack: has something Dinner:5-7 pm meat and two veggies (sometimes has a starch) OR meat black beans corn OR homemade chipotle OR crock pot meals Snack: 2 keto cookies Pt eliminated pasta, sweet treats, oranges Fluids Body armour lyte drinks, raspberry tea, milk Caffeine free beverages Cannot tolerate water Hypoglycemia will have little glass of OJ Dining/eating out? Not often Allergies: No Food Allergy Patient / Provider Comments: Pt [id number] weeks gestation. She does not have a PMH of GDM. This isher second . She has a family hx of dm including her none . Fasting 70-80's 2 hr pp 90's low 100's Pt presents with nutrition concerns, she states she wasn't instructed on a GDM meal plan Hemoglobin A1C (POCT) (%) Date Value 06/03/2022 5.2 Medications: Current Outpatient Medications Medication Sig blood sugar diagnostic (BLOOD GLUCOSE TEST) test strip Use five times a day as ACOG guidelines for gestational daibetes Lancets lancets Use five times daily as recommended by ACOG for gestational diabetes alcohol swabs Use five times daily as per protocol by ACOG lamoTRIgine (LAMICTAL) 150 mg tablet Take 150 mg by mouth once daily. Sennosides (SENOKOT EXTRA STRENGTH) 17.2 mg tab Take 1 tablet by mouth once daily. risperiDONE (RISPERDAL) 1 mg tablet Take 1 tablet by mouth daily at bedtime. Fbuzgtrj-Qh-Phq-Fe-FA tab Take 1 tablet by mouth once daily. No current facility-administered medications for this visit. Labs: Glucose (mg/dL) Date Value 04/24/2021 112 Potassium (mmol/L) Date Value 04/24/2021 4.0 Sodium (mmol/L) Date Value 04/24/2021 140 Chloride (mmol/L) Date Value 04/24/2021 104 CO2 (mmol/L) Date Value 04/24/2021 24 Creatinine (mg/dL) Date Value 04/24/2021 0.68 BUN (mg/dL) Date Value 04/24/2021 15 Anion Gap (mmol/L) Date Value 04/24/2021 12 Calcium (mg/dL) Date Value 04/24/2021 9.3 Lab Results Component Value Date HBA1C 5.2 06/03/2022 LDL Chol, [place] Date Value Ref Range Status 06/08/2008 75 0 - 129 mg/dL Final Glucose (mg/dL) Date Value 04/24/2021 112 Potassium (mmol/L) Date Value 04/24/2021 4.0 Sodium (mmol/L) Date Value 04/24/2021 140 Chloride (mmol/L) Date Value 04/24/2021 104 CO2 (mmol/L) Date Value 04/24/2021 24 Creatinine (mg/dL) Date Value 04/24/2021 0.68 BUN (mg/dL) Date Value 04/24/2021 15 Anion Gap (mmol/L) Date Value 04/24/2021 12 Calcium (mg/dL) Date Value 04/24/2021 9.3 Protein, Total (g/dL) Date Value 04/24/2021 7.5 Albumin (g/dL) Date Value 04/24/2021 3.9 Bilirubin, Total (mg/dL) Date Value 04/24/2021 0.2 Alkaline Phosphatase (U/L) Date Value 04/24/2021 137 AST (U/L) Date Value 04/24/2021 19 ALT (U/L) Date Value 04/24/2021 26 ANTHROPOMETRICS Height: Last 1 Encounter Ht Readings: Date: Ht: 05/25/2022 160 cm (5' 3") Current weight: Last 3 Encounter Wt Readings: Date: Wt: 06/03/2022 69.8 kg (153 lb 14.4 oz) 06/03/2022 70 kg (154 lb 4 oz) 05/25/2022 70.8 kg (156 lb) BMI: 27 prepregnancy weight 133 lbs READINESS TO LEARN Cognitive ability: Alert and oriented Motivation to learn: Interested Family support: Unable to assess - Family not present Instruction provided to: Patient Patient learns best by: Multiple Methods Factors affecting learning: None Physical limitations affecting learning: None Stage of Change: Contemplation Nutrition Diagnosis: Food and nutrition related knowledge deficit, related to; lack of prior exposure to information , as evidenced by client has no prior knowledge of need for food and nutrition - related information Calories Needed for Current Weight: Resting Metabolic Rate: 1383 Nutrition Intervention: Diabetes that develops during is called gestational diabetes. It affects 10% of all pregnancies. Gestational diabetes usually goes away after the is over. However, half of all women with gestational diabetes will develop type 2 diabetes within the next 10 years. Gestational Diabetes What Causes Gestational Diabetes? We do not know all the causes of gestational diabetes. However, we do know some risk factors that increase the likelihood of developing gestational diabetes. They include: 1. Having close family members with diabetes 2. Your age: the older you are, the more likely you are to have gestational diabetes. 3. The number of babies you are carrying: patients with multiples are more likely to have gestational diabetes 4. Being overweight before 5. Gaining extra weight during 6. Changing hormones even though they are necessary for a healthy . Discussed BG targets for : Fasting 60-90 1 hour post meals <140 2 hours post meals <120 Instructed pt to test fasting and two hours after the start of each meal. . Stressed risks to fetus and mother with maternal elevated BGs during 1st, 2nd, and 3rd trimesters. Discussed changing insulin needs due to insulin resistance during . Pt learned insulin pen inejction in previous dm ed appointment Discussed DM/ meal planning including impact of carbs on BG, foods containing carbs, reading food labels, importance of a balanced diet, portion sizes and associated carb grams, and carb andfat content in restaurant foods. Recommended the following: At least 90 to 175 grams of carbohydrates per day. During , women generally need to consume: 15 to 30 grams of carbohydrates for breakfast 30 to 45 grams for lunch 45 to 60 grams for dinner 15 to 30 grams per snack I educated the pt on the importance of eating enough carbohydrates. Without proper carbohydrate intake, the body will draw on stored fat for energy. Fat that is turned into energy is known as ketones. Ketones cross the placenta and can cause harm to the baby is Strongly Recommended! Mothers on insulin who breastfeed have lower insulin requirements Your glucose levels and weight will return to prepregnancy levels faster. Mothers with gestational diabetes are less likely to develop type 2 diabetes if they breastfeed their baby. Children born to mothers who had diabetes before or developed gestational diabetes are less likely to develop diabetes themselves if they are breastfed. GDM pp emailed to pt Nutrition Monitoring & Evaluation: Dietitian Goals: Maintained OR Improved Blood Glucose Control by next A1C test Criteria: Blood Glucose Values Patient Stated Goals at today's visit: Follow my meal plan Adherence Potential to Goals: Good Need for Follow up: as needed Referred by: Vincent Ocampo, DO Lebron Juares RD Consult Billing Type/Increments: Initial Assessment/15 minutes, 3 increment(s), 45 minutes Start time: 12:45 End time: 1:30 pm My final report will be communicated back to the requesting physician by way of shared medical record. Signed by: Lebron Juares RD documented in this encounterPark[facility] Miscellaneous Notes* Quick Notes - Shalonda Krause APRN.CNM - 06/03/2022 3:37 PM EDT Active baby. C/O random shooting pains of urethra. ASSESSMENT/PLAN: 1. care in third trimester - ICD9: V22.1, ICD10: Z34.93 (primary diagnosis) - URINE OB DIP B/O 2. 32 weeks gestation of - ICD9: V22.2, ICD10: Z3A.32 - URINE OB DIP B/O 3. Gestational diabetes mellitus (GDM) affecting second - ICD9: 648.80, ICD10: O24.419 - Saw Dr Ocampo today. Has much better understanding of ADA diet. Glucose mostly normal range. US for growth ordered 4. Pyelectasis of fetus on ultrasound - ICD9: 796.5, ICD10: O35.8XX0 Explained implications in Shalonda Krause APRN.CNM Medical Decision Making: Problems: Moderate: New problem with uncertain prognosis Data: Unique source(s) for external note(s) reviewed: 1 Risk: Moderate: Moderate risk from testing/treatment and Drug management Medical Decision Making Level: 4 - Moderate documented in this encounterPark[facility] Nurse Note* Elsa Covington Ma - 06/03/2022 2:50 PM EDT Movement? Active baby Vaginal Bleeding: YES/MD NOTIFIED Vaginal fluid leakage of fluid: NO Contractions: no contractions After School Counselor offered: Patient declines. documented in this encounterPark[facility]07[facility] Instructions* Patient Instructions* Vincent Ocampo DO - 06/03/2022 10:08 AM EDT 1) check your sugars fasting (60-90 mg/dL) and 2 hours post meal (less than 120 mg/dL) 2) forward me your blood glucose data weekly ( ) 3) see DM education (virtual visit) Lebron Juares 4) see me in 4 weeks (virtual visit) documented in this encounterPark[facility] History of Present illness Narrative* Vincent Ocampo DO - 06/03/2022 9:40 AM EDT Reason for consultation: Evaluation of gestational diabetes mellitus Referring Physician: Shalonda Kraues CNM My final recommendations will be communicated back to the requesting physician by way of shared Medical record or letter via US mail. HISTORY OF PRESENT ILLNESS; Ms. Huang is a 32 year old presenting at 32+ weeks gestation for consultation regarding her recent diagnosis of gestational diabetes. She was diagnosed with GDM after abnormal 3 hour GTT on . POC HbA1c today is 5.2%. She does not have a previous history of gestational diabetes. Has13 month old daughter- 7lbs 2oz F 03/2021 at 38 weeks gestation () Her prepregnancy weight was 133 lbs and her current weight is 153 lbs. She has no family hx of diabetes that she is aware. Having trouble eating the small frequent meals- early satiety She has been checking her blood glucose 4 times daily- fasting- less than 90 mg/dL 2 hour post meal less thank 120 mg/dL (but with occasional outlier 120-140 mg/dL) Hypoglycemia frequency: n/a Hypoglycemia awareness: n/a Hyperglycemia Symptoms: denies blurry vision denies polyuria denies polydipsia reports nocturia denies rapid weight loss Last visit with OB was 05/06- Last u/s was 05/29- EFW 50th centile, AC 57th centile, DAYNA NL- having a boy! She has no acute complaints/concerns at this time- feels ok overall. PAST MEDICAL HISTORY Diagnosis Date Endometriosis 10/26/2014 never had diagnostic lap to confirm, patient did not want surgery Gestational diabetes mellitus (GDM) affecting second 05/25/2022 Infertility, female Migraine without aura and without status migrainosus, not intractable 07/18/2019 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HCC) 08/27/2015 Panic disorder without agoraphobia PMH - PAST MEDICAL HISTORY OF color vision normal PMH - PAST MEDICAL HISTORY OF "vascular disease" 01/2002 PMH - PAST MEDICAL HISTORY OF wearing glasses and broke ankle at age 3, wrist fracture depression PAST SURGICAL HISTORY Procedure Laterality Date 2D ECHO COMPLETE IN 01/03/2015 EF=67%, WNL FAMILY HISTORY Problem Relation Age of Onset Asthma Mother Psychiatry Mother Bi-Polar Hypertension Maternal Grandmother Heart Maternal Grandfather triple by pass heart diagnosed in Stroke Paternal Grandmother Cancer Paternal Grandmother Heart Paternal Grandfather heart attack. . Emphysema Paternal Grandfather Diabetes Other maternal side Social History Tobacco Use Smoking status: Never Smoker Smokeless tobacco: Never Used Tobacco comment: Pt denies Vaping Use Vaping Use: Never used Substance Use Topics Alcohol use: No Drug use: No Comment: Pt denies Current Outpatient Medications Medication Sig Dispense Refill phenazopyridine (PYRIDIUM) 100 mg tablet Take 2 tablets by mouth twice daily as needed. 6 tablet 0 blood sugar diagnostic (BLOOD GLUCOSE TEST) test strip Use five times a day as ACOG guidelines for gestational daibetes 150 Strip 3 Lancets lancets Use five times daily as recommended by ACOG for gestational diabetes 150 Each 3 alcohol swabs Use five times daily as per protocol by ACOG 150 Each 3 lamoTRIgine (LAMICTAL) 150 mg tablet Take 150 mg by mouth once daily. Sennosides (SENOKOT EXTRA STRENGTH) 17.2 mg tab Take 1 tablet by mouth once daily. 20 tablet 3 risperiDONE (RISPERDAL) 1 mg tablet Take 1 tablet by mouth daily at bedtime. Xztyoogi-Ib-Ypy-Fe-FA tab Take 1 tablet by mouth once daily. 30 tablet 11 lamoTRIgine (LAMICTAL) 25 mg tablet Take 150 mg by mouth daily at bedtime. No current facility-administered medications for this visit. Allergies As of Date: 06/03/2022 Allergen Noted Reaction CHOCOLATE 11/08/2013 Rash CAFFEINE 09/17/2020 Rash MELATONIN 04/05/2020 Shortness of Breath ONION 05/25/2022 GI Upset ADHESIVE TAPE (ROSINS) 12/28/2018 Rash and Itching MOSQUITOS 02/04/2006 Swelling PHENERGAN [PROMETHAZINE HCL] 05/15/2018 GI Upset SUNSCREEN 11/13/2015 Rash ZYRTEC [CETIRIZINE HCL] 02/16/2019 Other: See Comments Fully Assessed 05/25/2022 REVIEW OF SYSTEMS: General: no fever, chills or acute changes in weight in the last 6 months Skin: no rashes, pruritis or dry skin Eyes: no blurred or double vision or eye pain Cardiac: denies chest pain, heart palpitations or orthopnea Pulmonary: denies wheezing, productive cough or exertional dyspnea GI: still with some issues with morning sickness. Musc: denies history of upper or lower extremity weakness Reproductive: gravid at 32 weeks gestation, Endocrine: complains of nocturia Hematology: Negative for anemia, easy bleeding and bruising. PHYSICAL EXAM: BP 100/67 Pulse 91 Wt 69.8 kg (153 lb 14.4 oz) LMP 09/01/2021 (Within Days) BMI 27.26 kg/m GENERAL: Alert, no distress, cooperative SKIN: Skin color, texture, turgor normal. No rashes or lesions. HEAD/SINUSES: No significant findings EYES: sclera non-icteirc, EOMs intact, no lid lag or stare ABDOMEN: gravid at 32 weeks EXTREMITIES: Normal exam of the extremities NEURO: AAO x 3, no focal deficits. The remainder of the physical exam is noncontributory. DATA: Component Latest Ref Rng & Units 05/06/2022 05/12/2022 Glucose Scrn, Preg 74 - 134 mg/dL 135 (H) Glucose GST, Fasting 74 - 94 mg/dL 87 Glucose GST, 1 Hr 74 - 179 mg/dL 189 (H) Glucose GST, 2 Hr 74 - 154 mg/dL 172 (H) Glucose GST, 3 Hr 74 - 139 mg/dL 152 (H) TSH Date Value Ref Range Status 03/23/2019 1.400 0.400 - 5.500 uU/mL Final Comment: If the patient is , TSH reference range varies by gestational period: First Trimester 0.100-2.500 uU/mL Second Trimester 0.200-3.000 uU/mL Third Trimester 0.300-3.000 uU/mL References: 1. Madrigal, Aleah M, Michelle EK, et al. Management of Thyroid Dysfunction during and : An Endocrine Society Clinical Practice Guideline. J Clin Endocrinol Metab, 2012:97:4622-2829. 2. Jorge Alberto EVANS. Overview of thyroid disease in . UpToDate. 2016. Accessed on May 09, 2016. IMPRESSION: Ms. Huang is a 32 year old female at 32+ weeks gestation here for evaluation of gestational diabetes. RECOMMENDATIONS: 1. The patient was counseled regarding the maternal and risks of hyperglycemia during . risks include, but are not limited to: congenital abnormalities, hypoxia and stillbirth, macrosomia, shoulder dystocia and neunatal hypoglycemia. Maternal risks include increased risks of pre-eclampsia and delivery. 2. I recommend the patient check her blood glucose fasting and 2 hour after each meal, we have provided her with a glucometer if she does not have one. The following blood glucose targets were discussed: fasting blood glucose concentration between 60-90 mg/dL, and 2 hour postprandial blood glucose c oncentration of less than 120 mg/dL. She was encouraged to limit carbohydrate intake, to walk aftermeals, (if not contraindicated) and will be scheduled with our dietitian, (if not done already). Regarding her blood glucose management, I recommend she do the followin) check your sugars fasting (60-90 mg/dL) and 2 hours post meal (less than 120 mg/dL) 2) forward me your blood glucose data weekly ([email or web address]) 3) see DM education (virtual visit) Lebron Juares 4) see me in 4 weeks (virtual visit) Rosalva will call us with any questions or concerns in the interim. She met with our RN after this visit for insulin instruction. 3. TSH was ordered today, if not done previously during this . 4 Patient will require repeat 2 hr 75g OGTT 8 weeks after delivery to ensure resolution of diabetes. She was counseled that her chances of future pregnancies complicated by diabetes are high, and her5 year risk of developing diabetes approaches 50%. Adherence to proper diet and exercise regimen will help reduce these risks. I spent a total of 60 minutes on the date of the service which included preparing to see the patient, [id number] patient care, completing clinical documentation, obtaining and/or reviewing separately obtained history, performing a medically appropriate examination, counseling and educating the pat ient/family/caregiver and ordering medications, tests, or procedures. Vincent Ocampo DO documented in this [facility]07-12-[facility]22 Miscellaneous Notes* Telephone Encounter - Shalonda Krause APRN.CNM - 06/03/2022 9:01 AM EDT Overall numbers are great. Keep up the good work and keep recording. Shalonda Krause APRN.CNM * Telephone Encounter - Nargis Guerin RN - 06/03/2022 7:51 AM EDT All values entered documented in this encounterPark[facility] Miscellaneous Notes* Telephone Encounter - Shalonda Krause APRN.CNM - 05/27/2022 12:08 PM EDT The following approved medication requests have been transmitted electronically. Signed Prescriptions Disp Refills metroNIDAZOLE (METROGEL VAGINAL) 0.75 % Vaginal Gel 70 g 0 Sig: Use 1 Applicator vaginally daily at bedtime for 5 days. Shalonda Krause APRN.CNM * Telephone Encounter - Nargis Guerin RN - 05/27/2022 10:59 AM EDT Order pended if agreeable documented in this [facility]06-23-[facility] History of Present illness Narrative* Ham Ozuna RN - 05/15/2022 3:17 PM EDT DIABETES SELF-MANAGEMENT EDUCATION AND SUPPORT Location: [place] Type of visit: In person individual Types of DSMES: Initial/Comprehensive (add to or update ADA spreadsheet) PATIENT'S MAIN CONCERN TODAY: GDM Support person present for education today: none Cognitive ability: Alert and oriented Motivation to learn: Interested Learning barriers identified by educator: none Method of instruction: written, verbal and demonstration INTERVENTIONS/TOPICS COVERED: -Diabetes Pathophysiology: role of insulin in the body, role of glucose in the body, relationship of glucose and insulin in the body, hepatic glucose release and gestational diabetes basics -Monitoring: BG targets, rationale for HGM, using a home glucose monitor and testing frequency -Healthy Eating: foods with carbs, reading food labels and carb counting tools (books, Internet, smartphone apps) -Medications: discussed insulin as usual first line agent due to not crossing the placenta -Physical Activity: benefits of exercise and impact of exercise on BG -Acute Complications: pattern management -Chronic Complications: risks to mom and baby with elevated blood sugars during -Healthy Coping and Support: impact of stress on BG DIABETES ASSESSMENT: Referring Physician: Shalonda Krause Previous Diabetes Education? No What are you hoping to gain from this visit? asked/not answered In your words, what is gestational diabetes? Sugar was up when we did the test What concerns you about having gestational diabetes? asked/not answered Diabetes History: Type of Diabetes: Gestational ( diabetes in ) How far along is your ? Weeks: 29 Does anyone in your family have diabetes? yes Aunt How do you learn best?asked/not answered Demographics: Highest level of education: Not addressed Race/Ethnic Origin: White/ Does you culture or roman catholic require any of the following: No cultural/lutheran practices affecting DM Do you have problems with: No difficulty seeing/hearing/reading/writing/speaking Support System: How often does someone help you read hospital materials? rarely How often does someone help you read your pill bottles? rarely How often does someone have to help you take care of your diabetes? rarely Major stressors:asked/not answered How do you manage stress? asked/not answered Do any of the following things get in the way of managing your diabetes? No self-identified issues Health History: Do you use tobacco? No Do you use alcohol? No In the past 12 months have you had any: Hospital Admissions: No ER Visits: Yes, Number of Times? 1 Primary Care Visits: Asked/not answered What are your general feelings about you overall health? Good Medical Issues/Complications: To whom are you reporting your blood sugar levels? [employer] PAST MEDICAL HISTORY Diagnosis Date Endometriosis 10/26/2014 never had diagnostic lap to confirm, patient did not want surgery Infertility, female Migraine without aura and without status migrainosus, not intractable 07/18/2019 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HCC) 08/27/2015 Panic disorder without agoraphobia PMH - PAST MEDICAL HISTORY OF color vision normal PMH - PAST MEDICAL HISTORY OF "vascular disease" 01/2002 PMH - PAST MEDICAL HISTORY OF wearing glasses and broke ankle at age 3, wrist fracture depression Most recent A1C No results found for: HBA1C Physical Activity: Do you do a regular exercise? Yes; how many days per week 5+ How long each day? 30-60 min Type of Exercise: walking Sleep: Do you get at least 7 hrs of sleep most nights? yes Current Outpatient Medications Medication Sig blood sugar diagnostic (BLOOD GLUCOSE TEST) test strip Use five times a day as ACOG guidelines for gestational daibetes Lancets lancets Use five times daily as recommended by ACOG for gestational diabetes alcohol swabs Use five times daily as per protocol by ACOG lamoTRIgine (LAMICTAL) 150 mg tablet Take 150 mg by mouth once daily. metroNIDAZOLE (FLAGYL) 500 mg tablet Take 1 tablet by mouth twice daily. for vaginosis. Do not drink alcohol while taking this medication Sennosides (SENOKOT EXTRA STRENGTH) 17.2 mg tab Take 1 tablet by mouth once daily. risperiDONE (RISPERDAL) 1 mg tablet Take 1 tablet by mouth daily at bedtime. Uwujwglk-Re-Lpj-Fe-FA tab Take 1 tablet by mouth once daily. lamoTRIgine (LAMICTAL) 25 mg tablet Take 150 mg by mouth daily at bedtime. No current facility-administered medications for this visit. Blood Sugar Monitoring: Do you have a blood sugar monitor? Yes, received today, did not bring with her Meal Planning: Are you currently following any meal plan? None Who does the cooking in your house? Self Who does the grocery shopping? Self How often do you eat out? 0-1x/week How many meals do you eat per day? Two Which meals do you tend to skip? Asked/not answered Beverages: water EDUCATION HANDOUTS: Healthy You: Diabetes and LEARNING RESPONSE: Diabetes pathophysiology: Demonstrated understanding/competency today or at previous visit Healthy eating: Demonstrated understanding/competency today or at previous visit Being active: Demonstrated understanding/competency today or at previous visit Taking medications: Not applicable for this patient Monitoring glucose: Demonstrated understanding/competency today or at previous visit Acute complications: Demonstrated understanding/competency today or at previous visit Chronic complications: Not applicable for this patient Healthy coping: Not assessed at the visit Diabetes distress and support: Not assessed at the visit PATIENT SELECTED THE FOLLOWING GOALS: -Monitoring goal: start checking blood sugar 3: I have a plan to start POSSIBLE FUTURE TOPICS: 1. The following topics were not assessed due to time limitations, but should be assessed at the next visit: . 2. The following topics should be taught or reinforced at the next visit: . DIABETES EDUCATION PLAN: Individual follow-up Time Spent (Minutes): 45 This visit note will be communicated to the healthcare provider via access to shared medical record. SIGNATURE: Ham Ozuna RN PATIENT NAME: Rosalva Huang DATE: May 15, 2022 TIME: 3:19 PM PAGER: documented in this encounterPark[facility] Miscellaneous Notes* Telephone Encounter - Danica Santana RN - 05/13/2022 9:35 AM EDT Pt returned a call Reviewed all below in detail Reviewed supplies, timing of testing, to call and schedule a diabetic education class etc Pt asking for the phone numbers to call to schedule diabetic education be recent to her My Chart This was done Pharmacy has already called Pt to inform the supplies are ready * Telephone Encounter - Shalonda Krause APRN.CNM - 05/13/2022 8:58 AM EDT Rosalva's three hour glucose test indicates she has gestational diabetes which is usually controlledwell by diet and exercise. I placed order for testing supplies and referral to diabetic education. Shalonda Krause APRN.CNM documented in this encounterPark[facility]06-15-2022 Miscellaneous Notes* Telephone Encounter - Diane Page RN - 05/07/2022 8:17 AM EDT Pt returning call Informed pt of elevated one hr and the need for 3hr, order is placed can call any [facility] lab and schedule Reviewed fasting protocol with pt Pt verbalizes understanding * Telephone Encounter - Diane Page RN - 05/07/2022 8:08 AM EDT Call placed to pt Left message to call the office ----- Message from Shalonda Krause APRN.CNM sent at 05/06/2022 11:23 PM EDT ----- One hour was elevated. Probably due to the cupcake you confessed to, but we will need to do the 3 hour. I placed order. Shalonda Krause APRN.CNM documented in this encounterPark[facility]06-14-2022 Miscellaneous Notes* Quick Notes - Shalonda Krause APRN.CNM - 05/06/2022 3:08 PM EDT Treated for UTI at --doing better. Did not get Senokot due to pharmacy. 28 week labs today. US ordered for medication use during . RTC 2 weeks. Medical Decision Making: Problems: Low: Acute, uncomplicated illness or injury and Stable chronic illness Data: Unique source(s) for external note(s) reviewed: 1 Unique test result(s) reviewed: 1 Unique test(s) ordered: 1 Risk: Moderate: Moderate risk from testing/treatment Medical Decision Making Level: 4 - Moderate documented in this encounterPark[facility]06-14-2022 Nurse Note* Sarita Walls Ma - 05/06/2022 2:36 PM EDT Movement? Decreased movement Vaginal Bleeding: NO Vaginal fluid leakage of fluid: NO Contractions: no contractions After School Counselor offered: Patient declines. documented in this encounterPark[facility]05-28-2022 Miscellaneous Notes* Quick Notes - Shalonda Krause APRN.CNM - 04/19/2022 4:45 PM EDT Complaining of discharge which is consistent with BV. RX flagyl. Also having issues with constipation: Reviewed diet, relief measures, rx senokot to take if no BM in 2-3 days. Reviewed 28 week labs. Active baby, no unusual abdominal pain, no bleeding, no leaking of fluid. RTC 2 weeks. Shalonda Krause APRN.CNM Medical Decision Making: Problems: Low: 2+ self-limited or minor problems and Acute, uncomplicated illness or injury Data: Unique test result(s) reviewed: 1 Unique test(s) ordered: 3+ Risk: Moderate: Drug management Medical Decision Making Level: 4 - Moderate documented in this encounterParkview [facility]05-18-2022 History of Present illness Narrative* Kelsey Giraldo MD - 04/09/2022 2:52 PM EDT Shalonda Krause APN NAME: Rosalva Huang [facility] Number.: [id number] Date of : 1990 Date of Visit: April 09, 2022 Dear Ms. Krause: Ms. Rosalva Huang was seen for echocardiogram and pediatric cardiology consultation on April 09, 2022. She is a 32 year old woman, referred due to maternal medication use (lithium, for bipolar disorder). She says she took this for 2 weeks in first trimester and stopped once shefound out she was . There is no family history of congenital heart disease. echocardiogram on April 09, 2022 at 24 weeks 2 days gestation shows atrial situs solitus with levocardia. SVC and IVC return normally to the right atrium. One right and one left pulmonary vein were seen returning normally into the left atrium. The atria were normal in size and there was normal right to left shunting at the atrial level. The left and right ventricles were normal in size and shortening. No ventricular hypertrophy. The ventricular septum appeared intact. Normal mitral and tricuspid valves without significant regurgitation. The left and right ventricular outflow tracts were widely patent. The aortic and ductal arches were widely patent. heart rate and rhythm were regular and no pericardial effusion was seen. Normal Doppler of umbilical artery, umbilical vein, ductusvenosus. In summary, the echocardiogram today showed normal intracardiac anatomy with normal ventricular function and normal heart rate and rhythm. We discussed these findings with . Rosalva Huang. In addition, the limitations of the echocardiogram and echocardiography in general, including the inability to exclude ASDs, some VSDs, minor valvar abnormalities, partial anomalous pulmonary venous return, persistent patent ductus arteriosus, and coarctation of the aorta, were explained. Based on these data we did not recommend any specific further or cardiac evaluation, though we would be happy to see her back should new concerns arise. Thank you for allowing me to participate in the care of your patient and please do not hesitate to contact me if I can be any further assistance. During this patient visit I have reviewed prior notes and imaging including from referring maternalfetal medicine specialists, devoted time to counseling/coordination of care regarding results of the echocardiogram, clincal manifestations of the identified disease, prognosis, test results and treatment options, formulated and provided my recommendations to other caregivers by verbal and written communication as appropriate and assisted in coordination of care as needed. During this patient visit I have spent 40 minutes with more than 50% of the time devoted to counseling/coordination of care regarding the results of the echocardiogram, clincal manifestations of the identified disease, prognosis, test results and treatment options, as discussed. Sincerely, Dr. Kelsey Giraldo documented in this encounterPark[facility]04-25-2022 Miscellaneous Notes* Telephone Encounter - Nargis Guerin RN - 03/17/2022 11:51 AM EDT Call to pt I called in last night, yesterday I was having really bad pain in my tailbone The doctor manager completions told me to rest and take tylenol, and if the pain doesn't go away I should go [facility] be seen Reviewed no available appt in the office today so the recommendation to be seen should be followed,recommended urgent care Pt verbalized understanding, will go to be seen. * Telephone Encounter - Feli Tommy - 03/17/2022 11:42 AM EDT Patient is calling regarding lower back pain. See telephone encounter from yesterday documented in this encounterPark[facility]04-24-2022 Miscellaneous Notes* Telephone Encounter - Jimmy Edwards MD - 03/16/2022 8:20 PM EDT Received a telephone call from the patient regarding low back pain in . She reports its worsening over time. Symptoms exacerbated by movement and urinating. She denies dysuria or hematuria. She is unsure if she is having any cramping. Discussed taking Tylenol and hydrating and if the pain worsens then I would recommend hospital evaluation. She verbalized understanding. Jimmy Edwards MD documented in this encounterPark[facility]04-14-2022 Miscellaneous Notes* Quick Notes - Serene Madison - 03/06/2022 10:23 AM EDT Pt doing well, experiencing flutters. No abnormal pain, bleeding, leaking, or discharge. C/o acid reflux not resolved by Tums, no N/V associated; recommended Pepcid. Declined genetic testing at this time. RTC in 4 weeks. Serene Madison, RN, [employer]-student Reviewed [employer] student's interview and physical. Agree with assessment ASSESSMENT/PLAN: 1. care in second trimester - ICD9: V22.1, ICD10: Z34.92 (primary diagnosis) - URINE OB DIP B/O - OB/GYN DOCTOR Requesting more information regarding care and when to call with pain or concerns. I ordered PCC for her with guidelines for when to call. 2. 19 weeks gestation of - ICD9: V22.2, ICD10: Z3A.19 - URINE OB DIP B/O Reviewed ultrasound report. Discussed normal aches and pains associated with this time of 3. 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HCC) - ICD9: 296.61, ICD10: F31.61 Stable on meds,, consult with Dr Bustos - echo-scheduled. Third trimester growth at 32 weeks 4. Migraine without aura and without status migrainosus, not intractable - ICD9: 346.10, ICD10: G43.009 No headaches 5. Panic disorder without agoraphobia - ICD9: 300.01, ICD10: F41.0 Stable meds 6. History of drug use - ICD9: 305.93, ICD10: Z87.898 Denies use--consider drug screen later in 7. Adjustment disorder with mixed anxiety and depressed mood - ICD9: 309.28, ICD10: F43.23 Shalonda Krause APRN.CNM Medical Decision Making: Problems: Low: Acute, uncomplicated illness or injury Moderate: 1+ chronic illnesses with change Data: Unique test result(s) reviewed: 1 Unique test(s) ordered: 1 Medical Decision Making Level: 3 - Low documented in this encounterPark[facility]04-14-2022 Nurse Note* Elsa Covington Ma - 03/06/2022 10:09 AM EDT Movement? Flutters Vaginal Bleeding: NO Vaginal fluid leakage of fluid: NO Contractions: no contractions After School Counselor offered: Patient declines. documented in this encounterPark[facility]04-01-2022 Miscellaneous Notes* Telephone Encounter - Diane Page RN - 02/21/2022 12:20 PM EDT Call placed to pt Informed pt Dr. Silvino Whitaker recommends increase hydration, wearing a maternity support belt and taking tylenol as needed Pt states pain is getting a little worse, now on both sides and going into her rib cage Pt denies headache, changes in vision or swelling of hands or face Pt states 2 days ago she went to the zoo with her daughter and was "very active" Informed patient she may have over done it and encouraged rest and monitoring for any further symptoms Pt states her aunt is staying with her right now but only for a short amount of time Instructed the pt to refrain from lifting anything heavy when possible and rest and wear a maternity support belt Instructed pt to call the office or on-call doctor if its after hours if the pain worsens or she experiences other concerning symptoms such as bleeding, LOF, changes in vision, headache that won't goaway or SOB Pt asks if she needs to be concerned about miscarriage Informed pt at this time the symptoms that she has described do not indicate a miscarriage, reiterated the importance of resting and hydrating and calling if she experiences anything that we've discussed Pt verbalizes understanding * Telephone Encounter - Juliette Whitaker MD - 02/21/2022 12:17 PM EDT Appropriate recommendations. Increase PO hydration. Maternity support belt. Tylenol PRN. * Telephone Encounter - Diane Page RN - 02/21/2022 11:35 AM EDT Pt calling back Pt states she is having a lot of lower abdominal pain starting this morning Pt states it's painful on the left side but more "crampy on the right side" Pain is worse when standing or when picks up other child, 10 months weighs 23 lbs Denies bleeding and LOF Encouraged wearing a maternity support belt Pt states she belly is really small and not really gaining weight but Dr. Silvino Whitaker was not concernedat this time due to her having a young child at home and being more active Eating and drinking ok Urine's "pretty yellow" Encouraged pt to drink 16 ounces of water now and then at least 8 ounces for every hour she's awakemoving forward Please review and advise * Telephone Encounter - Nargis Guerin RN - 02/21/2022 10:41 AM EDT Call to patient VM box is full unable to leave VM, sent SMS * Telephone Encounter - Feli Rameytimi - 02/21/2022 10:32 AM EDT Patient is calling with concern of bad stomach pain. This started this morning. Started with a little pain but it is progressing. She states she is not having any bleeding. documented in this encounterPark[facility]01-24-2022 History of Past illness Narrative* Problem Noted Date Resolved Date Acute cystitis 12/16/2021 01/15/2022 Adjustment disorder with mixed anxiety and depre ssed mood 04/29/2021 08/26/2021 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HCC-CMS) 08/27/20 15 08/26/2021 Anxiety state 08/26/2021 documented as of this encounter (statuses as of 01/01/2023) [facility] Work Phone: 1(777) 809-833301-24-2022 History of Past illness Narrative* Problem Noted Date Resolved Date Acute cystitis 12/16/2021 01/15/2022 Adjustment disorder with mixed anxiety and depre ssed mood 04/29/2021 08/26/2021 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HCC-CMS) 08/27/20 15 08/26/2021 Anxiety state 08/26/2021 documented as of this encounter (statuses as of 01/05/2023) [facility] Work Phone: 1(678) 921-941101-24-2022 History of Past illness Narrative* Problem Noted Date Resolved Date Acute cystitis 12/16/2021 01/15/2022 Adjustment disorder with mixed anxiety and depre ssed mood 04/29/2021 08/26/2021 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HCC-CMS) 08/27/20 15 08/26/2021 Anxiety state 08/26/2021 documented as of this encounter (statuses as of 01/05/2023) [facility] Work Phone: 1([phone]) 362-547501-24-2022 History of Past illness Narrative* Problem Noted Date Resolved Date Acute cystitis 12/16/2021 01/15/2022 Adjustment disorder with mixed anxiety and depre ssed mood 04/29/2021 08/26/2021 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[facility]) 08/27/2008/26/2021 Anxiety state 08/26/2021 documented as of this encounter (statuses as of 02/02/2023) [facility] Work Phone: 1(907) 474-443301-24-2022 History of Past illness Narrative* Problem Noted Date Diagnosed Date Resolved Date Acute cystitis 12/16/2021 01/15/2022 Adjustment disorder with mix ed anxiety and depressed mood 04/29/2021 08/26/2021 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[facility]) 08/27/2015 08/26/2021 Anxiety state 08/26/2021 documented as of this encounter (statuses as of 02/12/2023) [facility] Work Phone: 1(847) 817-777001-24-2022 History of Past illness Narrative* Problem Noted Date Diagnosed Date Resolved Date Acute cystitis 12/16/2021 01/15/2022 Adjustment disorder with mix ed anxiety and depressed mood 04/29/2021 08/26/2021 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[facility]) 08/27/2015 08/26/2021 Anxiety state 08/26/2021 documented as of this encounter (statuses as of 02/19/2023) [facility] Work Phone: 1(377) 408-426801-24-2022 History of Past illness Narrative* Problem Noted Date Diagnosed Date Resolved Date Acute cystitis 12/16/2021 01/15/2022 Adjustment disorder with mix ed anxiety and depressed mood 04/29/2021 08/26/2021 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[facility]) 08/27/2015 08/26/2021 Anxiety state 08/26/2021 documented as of this encounter (statuses as of 02/20/2023) [facility] Work Phone: 1(834) 964-488001-24-2022 History of Past illness Narrative* Problem Noted Date Diagnosed Date Resolved Date Acute cystitis 12/16/2021 01/15/2022 Adjustment disorder with mix ed anxiety and depressed mood 04/29/2021 08/26/2021 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HCC-CMS) 08/27/2015 08/26/2021 Anxiety state 08/26/2021 documented as of this encounter (statuses as of 02/27/2023) [facility] Work Phone: 1(237) 305-821901-24-2022 History of Past illness Narrative* Problem Noted Date Diagnosed Date Resolved Date Acute cystitis 12/16/2021 01/15/2022 Adjustment disorder with mix ed anxiety and depressed mood 04/29/2021 08/26/2021 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HCC-CMS) 08/27/2015 08/26/2021 Anxiety state 08/26/2021 documented as of this encounter (statuses as of 03/23/2023) [facility] Work Phone: 1(876) 407-491701-24-2022 History of Past illness Narrative* Problem Noted Date Diagnosed Date Resolved Date Acute cystitis 12/16/2021 01/15/2022 Adjustment disorder with mix ed anxiety and depressed mood 04/29/2021 08/26/2021 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[facility]) 08/27/2015 08/26/2021 Anxiety state 08/26/2021 documented as of this encounter (statuses as of 04/03/2023) [facility] Work Phone: 1(937) 212-610901-24-2022 History of Past illness Narrative* Problem Noted Date Diagnosed Date Resolved Date Acute cystitis 12/16/2021 01/15/2022 Adjustment disorder with mix ed anxiety and depressed mood 04/29/2021 08/26/2021 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[facility]) 08/27/2015 08/26/2021 Anxiety state 08/26/2021 documented as of this encounter (statuses as of 04/23/2023) [facility] Work Phone: 1(809) 703-274101-24-2022 History of Past illness Narrative* Problem Noted Date Diagnosed Date Resolved Date Acute cystitis 12/16/2021 01/15/2022 Adjustment disorder with mix ed anxiety and depressed mood 04/29/2021 08/26/2021 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HCC-CMS) 08/27/2015 08/26/2021 Anxiety state 08/26/2021 documented as of this encounter (statuses as of 04/27/2023) [facility] Work Phone: 1(860) 653-542701-24-2022 History of Past illness Narrative* Problem Noted Date Diagnosed Date Resolved Date Acute cystitis 12/16/2021 01/15/2022 Adjustment disorder with mix ed anxiety and depressed mood 04/29/2021 08/26/2021 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[facility]) 08/27/2015 08/26/2021 Anxiety state 08/26/2021 documented as of this encounter (statuses as of 04/27/2023) [facility] Work Phone: 1(415) 971-374001-24-2022 History of Past illness Narrative* Problem Noted Date Diagnosed Date Resolved Date Acute cystitis 12/16/2021 01/15/2022 Adjustment disorder with mix ed anxiety and depressed mood 04/29/2021 08/26/2021 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[facility]) 08/27/2015 08/26/2021 Anxiety state 08/26/2021 documented as of this encounter (statuses as of 05/15/2023) [facility] Work Phone: 1(491) 826-838701-24-2022 History of Past illness Narrative* Problem Noted Date Diagnosed Date Resolved Date Acute cystitis 12/16/2021 01/15/2022 Adjustment disorder with mix ed anxiety and depressed mood 04/29/2021 08/26/2021 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[facility]) 08/27/2015 08/26/2021 Anxiety state 08/26/2021 documented as of this encounter (statuses as of 05/18/2023) [facility] Work Phone: 1(737) 749-101101-24-2022 History of Past illness Narrative* Problem Noted Date Diagnosed Date Resolved Date Acute cystitis 12/16/2021 01/15/2022 Adjustment disorder with mix ed anxiety and depressed mood 04/29/2021 08/26/2021 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[facility]) 08/27/2015 08/26/2021 Anxiety state 08/26/2021 documented as of this encounter (statuses as of 05/26/2023) [facility] Work Phone: 1([phone]) 559-729901-24-2022 History of Past illness Narrative* Problem Noted Date Diagnosed Date Resolved Date Acute cystitis 12/16/2021 01/15/2022 Adjustment disorder with mix ed anxiety and depressed mood 04/29/2021 08/26/2021 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[facility]) 08/27/2015 08/26/2021 Anxiety state 08/26/2021 documented as of this encounter (statuses as of 05/29/2023) [facility] Work Phone: 1(749) 273-614201-24-2022 History of Past illness Narrative* Problem Noted Date Diagnosed Date Resolved Date Acute cystitis 12/16/2021 01/15/2022 Adjustment disorder with mix ed anxiety and depressed mood 04/29/2021 08/26/2021 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[facility]) 08/27/2015 08/26/2021 Anxiety state 08/26/2021 documented as of this encounter (statuses as of 05/29/2023) [facility] Work Phone: 1(369) 699-266801-24-2022 History of Past illness Narrative* Problem Noted Date Diagnosed Date Resolved Date Acute cystitis 12/16/2021 01/15/2022 Adjustment disorder with mix ed anxiety and depressed mood 04/29/2021 08/26/2021 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[facility]) 08/27/2015 08/26/2021 Anxiety state 08/26/2021 documented as of this encounter (statuses as of 06/02/2023) [facility] Work Phone: 1(146) [phone] History of Past illness Narrative* Problem Noted Date Diagnosed Date Resolved Date Acute cystitis 12/16/2021 01/15/2022 Adjustment disorder with mix ed anxiety and depressed mood 04/29/2021 08/26/2021 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[facility]) 08/27/2015 08/26/2021 Anxiety state 08/26/2021 documented as of this encounter (statuses as of 06/26/2023) [facility] Work Phone: 1(915) 100-935101-24-2022 History of Past illness Narrative* Problem Noted Date Diagnosed Date Resolved Date Acute cystitis 12/16/2021 01/15/2022 Adjustment disorder with mix ed anxiety and depressed mood 04/29/2021 08/26/2021 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 [facility] 08/27/2015 08/26/2021 Anxiety state 08/26/2021 documented as of this encounter (statuses as of 07/03/2023) [facility] Work Phone: 1(472) 108-627701-24-2022 History of Past illness Narrative* Problem Noted Date Diagnosed Date Resolved Date Acute cystitis 12/16/2021 01/15/2022 Adjustment disorder with mix ed anxiety and depressed mood 04/29/2021 08/26/2021 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[facility]) 08/27/2015 08/26/2021 Anxiety state 08/26/2021 documented as of this encounter (statuses as of 07/06/2023) [employer] Work Phone: 1(691) 699-718701-24-2022 History of Past illness Narrative* Problem Noted Date Diagnosed Date Resolved Date Acute cystitis 12/16/2021 01/15/2022 Adjustment disorder with mix ed anxiety and depressed mood 04/29/2021 08/26/2021 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[facility]) 08/27/2015 08/26/2021 Anxiety state 08/26/2021 documented as of this encounter (statuses as of 07/10/2023) [employer] Work Phone: 1(922) 402-583301-24-2022 History of Past illness Narrative* Problem Noted Date Diagnosed Date Resolved Date Acute cystitis 12/16/2021 01/15/2022 Adjustment disorder with mix ed anxiety and depressed mood 04/29/2021 08/26/2021 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[facility]) 08/27/2015 08/26/2021 Anxiety state 08/26/2021 documented as of this encounter (statuses as of 07/15/2023) [employer] Work Phone: 1(128) [phone] History of Past illness Narrative* Problem Noted Date Diagnosed Date Resolved Date Acute cystitis 12/16/2021 01/15/2022 Adjustment disorder with mix ed anxiety and depressed mood 04/29/2021 08/26/2021 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[facility]) 08/27/2015 08/26/2021 Anxiety state 08/26/2021 documented as of this encounter (statuses as of 07/19/2023) [facility] Work Phone: 1(339) 552-933101-24-2022 History of Past illness Narrative* Problem Noted Date Diagnosed Date Resolved Date Acute cystitis 12/16/2021 01/15/2022 Adjustment disorder with mix ed anxiety and depressed mood 04/29/2021 08/26/2021 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[facility]) 08/27/2015 08/26/2021 Anxiety state 08/26/2021 documented as of this encounter (statuses as of 08/07/2023) [employer] Work Phone: 1(914) 134-497101-24-2022 History of Past illness Narrative* Problem Noted Date Diagnosed Date Resolved Date Acute cystitis 12/16/2021 01/15/2022 Adjustment disorder with mix ed anxiety and depressed mood 04/29/2021 08/26/2021 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[facility]) 08/27/2015 08/26/2021 Anxiety state 08/26/2021 documented as of this encounter (statuses as of 08/14/2023) [employer] Work Phone: 1([phone]) 230-766601-24-2022 History of Past illness Narrative* Problem Noted Date Diagnosed Date Resolved Date Acute cystitis 12/16/2021 01/15/2022 Adjustment disorder with mix ed anxiety and depressed mood 04/29/2021 08/26/2021 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[facility]) 08/27/2015 08/26/2021 Anxiety state 08/26/2021 documented as of this encounter (statuses as of 09/04/2023) [employer] Work Phone: 1(574) 430-576301-24-2022 History of Past illness Narrative* Problem Noted Date Diagnosed Date Resolved Date Acute cystitis 12/16/2021 01/15/2022 Adjustment disorder with mix ed anxiety and depressed mood 04/29/2021 08/26/2021 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[facility]) 08/27/2015 08/26/2021 Anxiety state 08/26/2021 documented as of this encounter (statuses as of 09/07/2023) [employer] Work Phone: 1(614) 798-520101-24-2022 History of Past illness Narrative* Problem Noted Date Diagnosed Date Resolved Date Acute cystitis 12/16/2021 01/15/2022 Adjustment disorder with mix ed anxiety and depressed mood 04/29/2021 08/26/2021 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[facility]) 08/27/2015 08/26/2021 Anxiety state 08/26/2021 documented as of this encounter (statuses as of 09/24/2023) [facility] Work Phone: 1(691) 361-374501-24-2022 History of Past illness Narrative* Problem Noted Date Diagnosed Date Resolved Date Acute cystitis 12/16/2021 01/15/2022 Adjustment disorder with mix ed anxiety and depressed mood 04/29/2021 08/26/2021 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[facility]) 08/27/2015 08/26/2021 Anxiety state 08/26/2021 documented as of this encounter (statuses as of 10/09/2023) [employer] Work Phone: 1(604) 998-405701-24-2022 History of Past illness Narrative* Problem Noted Date Diagnosed Date Resolved Date Acute cystitis 12/16/2021 01/15/2022 Adjustment disorder with mix ed anxiety and depressed mood 04/29/2021 08/26/2021 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[facility]) 08/27/2015 08/26/2021 Anxiety state 08/26/2021 documented as of this encounter (statuses as of 10/09/2023) [facility] Work Phone: 1(538) 153-705601-24-2022 History of Past illness Narrative* Problem Noted Date Diagnosed Date Resolved Date Acute cystitis 12/16/2021 01/15/2022 Adjustment disorder with mix ed anxiety and depressed mood 04/29/2021 08/26/2021 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[facility]) 08/27/2015 08/26/2021 Anxiety state 08/26/2021 documented as of this encounter (statuses as of 10/30/2023) [facility] Work Phone: 1(443) 606-276501-24-2022 History of Past illness Narrative* Problem Noted Date Diagnosed Date Resolved Date Acute cystitis 12/16/2021 01/15/2022 Adjustment disorder with mix ed anxiety and depressed mood 04/29/2021 08/26/2021 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[facility]) 08/27/2015 08/26/2021 Anxiety state 08/26/2021 documented as of this encounter (statuses as of 11/13/2023) [facility] Work Phone: 1(485) 732-968901-24-2022 History of Past illness Narrative* Problem Noted Date Diagnosed Date Resolved Date Acute cystitis 12/16/2021 01/15/2022 Adjustment disorder with mix ed anxiety and depressed mood 04/29/2021 08/26/2021 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[facility]) 08/27/2015 08/26/2021 Anxiety state 08/26/2021 documented as of this encounter (statuses as of 12/11/2023) [employer] Work Phone: 1(565) 491-109501-24-2022 History of Past illness Narrative* Problem Noted Date Diagnosed Date Resolved Date Acute cystitis 12/16/2021 01/15/2022 Adjustment disorder with mix ed anxiety and depressed mood 04/29/2021 08/26/2021 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[facility]) 08/27/2015 08/26/2021 Anxiety state 08/26/2021 documented as of this encounter (statuses as of 12/13/2023) [employer] Work Phone: [phone]) [phone] History of Past illness Narrative* Problem Noted Date Diagnosed Date Resolved Date Acute cystitis 12/16/2021 01/15/2022 Adjustment disorder with mix ed anxiety and depressed mood 04/29/2021 08/26/2021 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[facility]) 08/27/2015 08/26/2021 Anxiety state 08/26/2021 documented as of this encounter (statuses as of 12/17/2023) [employer] Work Phone: 1(609) 768-280201-24-2022 History of Past illness Narrative* Problem Noted Date Diagnosed Date Resolved Date Acute cystitis 12/16/2021 01/15/2022 Adjustment disorder with mix ed anxiety and depressed mood 04/29/2021 08/26/2021 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[facility]) 08/27/2015 08/26/2021 Anxiety state 08/26/2021 documented as of this encounter (statuses as of 12/25/2023) [facility] Work Phone: 1(453) 140-635601-24-2022 History of Past illness Narrative* Problem Noted Date Diagnosed Date Resolved Date Acute cystitis 12/16/2021 01/15/2022 Adjustment disorder with mix ed anxiety and depressed mood 04/29/2021 08/26/2021 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[facility]) 08/27/2015 08/26/2021 Anxiety state 08/26/2021 documented as of this encounter (statuses as of 01/01/2024) [facility] Work Phone: 1(632) 131-127201-24-2022 History of Past illness Narrative* Problem Noted Date Diagnosed Date Resolved Date Acute cystitis 12/16/2021 01/15/2022 Adjustment disorder with mix ed anxiety and depressed mood 04/29/2021 08/26/2021 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[facility]) 08/27/2015 08/26/2021 Anxiety state 08/26/2021 documented as of this encounter (statuses as of 01/08/2024) [employer] Work Phone: 1([phone]) 942-702301-24-2022 History of Past illness Narrative* Problem Noted Date Diagnosed Date Resolved Date Acute cystitis 12/16/2021 01/15/2022 Adjustment disorder with mix ed anxiety and depressed mood 04/29/2021 08/26/2021 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[facility]) 08/27/2015 08/26/2021 Anxiety state 08/26/2021 documented as of this encounter (statuses as of 01/15/2024) [employer] Work Phone: 1(893) 430-663901-24-2022 History of Past illness Narrative* Problem Noted Date Diagnosed Date Resolved Date Acute cystitis 12/16/2021 01/15/2022 Adjustment disorder with mix ed anxiety and depressed mood 04/29/2021 08/26/2021 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[facility]) 08/27/2015 08/26/2021 Anxiety state 08/26/2021 documented as of this encounter (statuses as of 01/15/2024) [facility] Work Phone: 1(888) 493-504501-24-2022 History of Past illness Narrative* Problem Noted Date Diagnosed Date Resolved Date Acute cystitis 12/16/2021 01/15/2022 Adjustment disorder with mix ed anxiety and depressed mood 04/29/2021 08/26/2021 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[facility]) 08/27/2015 08/26/2021 Anxiety state 08/26/2021 documented as of this encounter (statuses as of 01/22/2024) [facility] Work Phone: 1(888) 119-382101-24-2022 History of Past illness Narrative* Problem Noted Date Diagnosed Date Resolved Date Acute cystitis 12/16/2021 01/15/2022 Adjustment disorder with mix ed anxiety and depressed mood 04/29/2021 08/26/2021 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[facility]) 08/27/2015 08/26/2021 Anxiety state 08/26/2021 documented as of this encounter (statuses as of 01/29/2024) [facility] Work Phone: 1(658) 707-459301-24-2022 History of Past illness Narrative* Problem Noted Date Diagnosed Date Resolved Date Acute cystitis 12/16/2021 01/15/2022 Adjustment disorder with mix ed anxiety and depressed mood 04/29/2021 08/26/2021 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[facility]) 08/27/2015 08/26/2021 Anxiety state 08/26/2021 documented as of this encounter (statuses as of 01/29/2024) [facility] Work Phone: 1([phone]) [phone] History of Past illness Narrative* Problem Noted Date Diagnosed Date Resolved Date Acute cystitis 12/16/2021 01/15/2022 Adjustment disorder with mix ed anxiety and depressed mood 04/29/2021 08/26/2021 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[facility]) 08/27/2015 08/26/2021 Anxiety state 08/26/2021 documented as of this encounter (statuses as of 02/05/2024) [facility] Work Phone: [phone] 294-144301-24-2022 History of Past illness Narrative* Problem Noted Date Diagnosed Date Resolved Date Acute cystitis 12/16/2021 01/15/2022 Adjustment disorder with mix ed anxiety and depressed mood 04/29/2021 08/26/2021 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[facility]) 08/27/2015 08/26/2021 Anxiety state 08/26/2021 documented as of this encounter (statuses as of 02/18/2024) [facility] Work Phone: 1(492) [phone] History of Past illness Narrative* Problem Noted Date Diagnosed Date Resolved Date Acute cystitis 12/16/2021 01/15/2022 Adjustment disorder with mix ed anxiety and depressed mood 04/29/2021 08/26/2021 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[facility]) 08/27/2015 08/26/2021 Anxiety state 08/26/2021 documented as of this encounter (statuses as of 02/22/2024) [employer] Work Phone: 1([phone]) 170-549301-24-2022 History of Past illness Narrative* Problem Noted Date Diagnosed Date Resolved Date Acute cystitis 12/16/2021 01/15/2022 Adjustment disorder with mix ed anxiety and depressed mood 04/29/2021 08/26/2021 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[facility]) 08/27/2015 08/26/2021 Anxiety state 08/26/2021 documented as of this encounter (statuses as of 03/10/2024) [employer] Work Phone: [phone] 800-715701-24-2022 History of Past illness Narrative* Problem Noted Date Diagnosed Date Resolved Date Acute cystitis 12/16/2021 01/15/2022 Adjustment disorder with mix ed anxiety and depressed mood 04/29/2021 08/26/2021 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[facility]) 08/27/2015 08/26/2021 Anxiety state 08/26/2021 documented as of this encounter (statuses as of 03/11/2024) [employer] Work Phone: 1([phone]) [phone] History of Past illness Narrative* Problem Noted Date Diagnosed Date Resolved Date Acute cystitis 12/16/2021 01/15/2022 Adjustment disorder with mix ed anxiety and depressed mood 04/29/2021 08/26/2021 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[facility]) 08/27/2015 08/26/2021 Anxiety state 08/26/2021 documented as of this encounter (statuses as of 03/16/2024) [facility] Work Phone: 1(286) 243-163701-24-2022 History of Past illness Narrative* Problem Noted Date Diagnosed Date Resolved Date Acute cystitis 12/16/2021 01/15/2022 Adjustment disorder with mix ed anxiety and depressed mood 04/29/2021 08/26/2021 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[facility]) 08/27/2015 08/26/2021 Anxiety state 08/26/2021 documented as of this encounter (statuses as of 04/04/2024) [facility] Work Phone: 1(894) 528-294801-24-2022 History of Past illness Narrative* Problem Noted Date Diagnosed Date Resolved Date Acute cystitis 12/16/2021 01/15/2022 Adjustment disorder with mix ed anxiety and depressed mood 04/29/2021 08/26/2021 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[facility]) 08/27/2015 08/26/2021 Anxiety state 08/26/2021 documented as of this encounter (statuses as of 04/05/2024) [employer] Work Phone: 1([phone]) 802-494801-24-2022 History of Past illness Narrative* Problem Noted Date Diagnosed Date Resolved Date Acute cystitis 12/16/2021 01/15/2022 Adjustment disorder with mix ed anxiety and depressed mood 04/29/2021 08/26/2021 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[facility]) 08/27/2015 08/26/2021 Anxiety state 08/26/2021 documented as of this encounter (statuses as of 04/07/2024) [employer] Work Phone: [phone]) [phone] History of Past illness Narrative* Problem Noted Date Diagnosed Date Resolved Date Acute cystitis 12/16/2021 01/15/2022 Adjustment disorder with mix ed anxiety and depressed mood 04/29/2021 08/26/2021 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[facility]) 08/27/2015 08/26/2021 Anxiety state 08/26/2021 documented as of this encounter (statuses as of 04/16/2024) [facility] Work Phone: 1([phone]) 399-547801-24-2022 History of Past illness Narrative* Problem Noted Date Diagnosed Date Resolved Date Acute cystitis 12/16/2021 01/15/2022 Adjustment disorder with mix ed anxiety and depressed mood 04/29/2021 08/26/2021 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[facility]) 08/27/2015 08/26/2021 Anxiety state 08/26/2021 documented as of this encounter (statuses as of 04/22/2024) [facility] Work Phone: [phone] History of Past illness Narrative* Problem Noted Date Diagnosed Date Resolved Date Acute cystitis 12/16/2021 01/15/2022 Adjustment disorder with mix ed anxiety and depressed mood 04/29/2021 08/26/2021 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[facility]) 08/27/2015 08/26/2021 Anxiety state 08/26/2021 documented as of this encounter (statuses as of 04/25/2024) [facility] Work Phone: [phone]) [phone] History of Past illness Narrative* Problem Noted Date Diagnosed Date Resolved Date Acute cystitis 12/16/2021 01/15/2022 Adjustment disorder with mix ed anxiety and depressed mood 04/29/2021 08/26/2021 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[facility]) 08/27/2015 08/26/2021 Anxiety state 08/26/2021 documented as of this encounter (statuses as of 05/09/2024) [facility] Work Phone: [phone] 203-381601-24-2022 History of Past illness Narrative* Problem Noted Date Diagnosed Date Resolved Date Acute cystitis 12/16/2021 01/15/2022 Adjustment disorder with mix ed anxiety and depressed mood 04/29/2021 08/26/2021 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[facility]) 08/27/2015 08/26/2021 Anxiety state 08/26/2021 documented as of this encounter (statuses as of 05/15/2024) [facility] Work Phone: 1(424) 344-797901-24-2022 History of Past illness Narrative* Problem Noted Date Diagnosed Date Resolved Date Acute cystitis 12/16/2021 01/15/2022 Adjustment disorder with mix ed anxiety and depressed mood 04/29/2021 08/26/2021 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[facility]) 08/27/2015 08/26/2021 Anxiety state 08/26/2021 documented as of this encounter (statuses as of 06/01/2024) [facility] Work Phone: [phone]) [phone] History of Past illness Narrative* Problem Noted Date Diagnosed Date Resolved Date Acute cystitis 12/16/2021 01/15/2022 Adjustment disorder with mix ed anxiety and depressed mood 04/29/2021 08/26/2021 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[facility]) 08/27/2015 08/26/2021 Anxiety state 08/26/2021 documented as of this encounter (statuses as of 06/17/2024) [facility] Work Phone: [phone] History of Past illness Narrative* Problem Noted Date Diagnosed Date Resolved Date Acute cystitis 12/16/2021 01/15/2022 Adjustment disorder with mix ed anxiety and depressed mood 04/29/2021 08/26/2021 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[facility]) 08/27/2015 08/26/2021 Anxiety state 08/26/2021 documented as of this encounter (statuses as of 06/21/2024) [facility] Work Phone: 1([phone]) [phone] History of Past illness Narrative* Problem Noted Date Diagnosed Date Resolved Date Acute cystitis 12/16/2021 01/15/2022 Adjustment disorder with mix ed anxiety and depressed mood 04/29/2021 08/26/2021 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[facility]) 08/27/2015 08/26/2021 Anxiety state 08/26/2021 documented as of this encounter (statuses as of 07/22/2024) [employer] Work Phone: [phone]) [phone] History of Past illness Narrative* Problem Noted Date Diagnosed Date Resolved Date Acute cystitis 12/16/2021 01/15/2022 Adjustment disorder with mix ed anxiety and depressed mood 04/29/2021 08/26/2021 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[facility]) 08/27/2015 08/26/2021 Anxiety state 08/26/2021 documented as of this encounter (statuses as of 07/31/2024) [facility] Work Phone: 1([phone]) 453-299101-24-2022 History of Past illness Narrative* Problem Noted Date Diagnosed Date Resolved Date Acute cystitis 12/16/2021 01/15/2022 Adjustment disorder with mix ed anxiety and depressed mood 04/29/2021 08/26/2021 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[facility]) 08/27/2015 08/26/2021 Anxiety state 08/26/2021 documented as of this encounter (statuses as of 08/14/2024) [facility] Work Phone: [phone]) 162-884901-24-2022 History of Past illness Narrative* Problem Noted Date Diagnosed Date Resolved Date Acute cystitis 12/16/2021 01/15/2022 Adjustment disorder with mix ed anxiety and depressed mood 04/29/2021 08/26/2021 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[facility]) 08/27/2015 08/26/2021 Anxiety state 08/26/2021 documented as of this encounter (statuses as of 09/11/2024) [facility] Work Phone: 1([phone]) 100-424401-24-2022 History of Past illness Narrative* Problem Noted Date Diagnosed Date Resolved Date Acute cystitis 12/16/2021 01/15/2022 Adjustment disorder with mix ed anxiety and depressed mood 04/29/2021 08/26/2021 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[facility]) 08/27/2015 08/26/2021 Anxiety state 08/26/2021 documented as of this encounter (statuses as of 09/26/2024) [facility] Work Phone: 1([phone] 402-772601-24-2022 History of Past illness Narrative* Problem Noted Date Diagnosed Date Resolved Date Acute cystitis 12/16/2021 01/15/2022 Adjustment disorder with mix ed anxiety and depressed mood 04/29/2021 08/26/2021 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[facility]) 08/27/2015 08/26/2021 Anxiety state 08/26/2021 documented as of this encounter (statuses as of 10/03/2024) [facility] Work Phone: 1(481) 406-973001-24-2022 History of Past illness Narrative* Problem Noted Date Diagnosed Date Resolved Date Acute cystitis 12/16/2021 01/15/2022 Adjustment disorder with mix ed anxiety and depressed mood 04/29/2021 08/26/2021 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[facility]) 08/27/2015 08/26/2021 Anxiety state 08/26/2021 documented as of this encounter (statuses as of 10/06/2024) [facility] Work Phone: 1(358) 152-732201-24-2022 History of Past illness Narrative* Problem Noted Date Diagnosed Date Resolved Date Acute cystitis 12/16/2021 01/15/2022 Adjustment disorder with mix ed anxiety and depressed mood 04/29/2021 08/26/2021 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[facility]) 08/27/2015 08/26/2021 Anxiety state 08/26/2021 documented as of this encounter (statuses as of 10/11/2024) [facility] Work Phone: [phone]) [phone] History of Past illness Narrative* Problem Noted Date Diagnosed Date Resolved Date Acute cystitis 12/16/2021 01/15/2022 Adjustment disorder with mix ed anxiety and depressed mood 04/29/2021 08/26/2021 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[facility]) 08/27/2015 08/26/2021 Anxiety state 08/26/2021 documented as of this encounter (statuses as of 10/14/2024) [facility] Work Phone: 1([phone]) [phone] History of Past illness Narrative* Problem Noted Date Diagnosed Date Resolved Date Acute cystitis 12/16/2021 01/15/2022 Adjustment disorder with mix ed anxiety and depressed mood 04/29/2021 08/26/2021 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[facility]) 08/27/2015 08/26/2021 Anxiety state 08/26/2021 documented as of this encounter (statuses as of 10/31/2024) [facility] Work Phone: 1(558) 500-965401-24-2022 History of Past illness Narrative* Problem Noted Date Diagnosed Date Resolved Date Acute cystitis 12/16/2021 01/15/2022 Adjustment disorder with mix ed anxiety and depressed mood 04/29/2021 08/26/2021 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[facility]) 08/27/2015 08/26/2021 Anxiety state 08/26/2021 documented as of this encounter (statuses as of 11/27/2024) [facility] Work Phone: 1([phone]) 593-755001-24-2022 History of Past illness Narrative* Problem Noted Date Diagnosed Date Resolved Date Acute cystitis 12/16/2021 01/15/2022 Adjustment disorder with mix ed anxiety and depressed mood 04/29/2021 08/26/2021 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[facility]) 08/27/2015 08/26/2021 Anxiety state 08/26/2021 documented as of this encounter (statuses as of 11/28/2024) [facility] Work Phone: 1([phone]) 425-808801-24-2022 History of Past illness Narrative* Problem Noted Date Diagnosed Date Resolved Date Acute cystitis 12/16/2021 01/15/2022 Adjustment disorder with mix ed anxiety and depressed mood 04/29/2021 08/26/2021 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[facility]) 08/27/2015 08/26/2021 Anxiety state 08/26/2021 documented as of this encounter (statuses as of 12/22/2024) [facility] Work Phone: 1([phone]) 168-456101-24-2022 History of Past illness Narrative* Problem Noted Date Diagnosed Date Resolved Date Acute cystitis 12/16/2021 01/15/2022 Adjustment disorder with mix ed anxiety and depressed mood 04/29/2021 08/26/2021 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[facility]) 08/27/2015 08/26/2021 Anxiety state 08/26/2021 documented as of this encounter (statuses as of 12/30/2024) [employer]: 1([phone]) 832-453301-24-2022 History of Past illness Narrative* Problem Noted Date Diagnosed Date Resolved Date Acute cystitis 12/16/2021 01/15/2022 Adjustment disorder with mix ed anxiety and depressed mood 04/29/2021 08/26/2021 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[facility]) 08/27/2015 08/26/2021 Anxiety state 08/26/2021 documented as of this encounter (statuses as of 12/30/2024) [employer]: 1(878) 956-990901-24-2022 History of Past illness Narrative* Problem Noted Date Diagnosed Date Resolved Date Acute cystitis 12/16/2021 01/15/2022 Adjustment disorder with mix ed anxiety and depressed mood 04/29/2021 08/26/2021 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[facility]) 08/27/2015 08/26/2021 Anxiety state 08/26/2021 documented as of this encounter (statuses as of 01/06/2025) [employer] [facility] Work Phone: 1(157) 229-786701-24-2022 History of Past illness Narrative* Problem Noted Date Diagnosed Date Resolved Date Acute cystitis 12/16/2021 01/15/2022 Adjustment disorder with mix ed anxiety and depressed mood 04/29/2021 08/26/2021 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[facility]) 08/27/2015 08/26/2021 Anxiety state 08/26/2021 documented as of this encounter (statuses as of 01/13/2025) [employer]: 1(190) 244-864301-24-2022 History of Past illness Narrative* Problem Noted Date Diagnosed Date Resolved Date Acute cystitis 12/16/2021 01/15/2022 Adjustment disorder with mix ed anxiety and depressed mood 04/29/2021 08/26/2021 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[facility]) 08/27/2015 08/26/2021 Anxiety state 08/26/2021 documented as of this encounter (statuses as of 01/19/2025) [employer]: 1(763) 560-319901-24-2022 History of Past illness Narrative* Problem Noted Date Diagnosed Date Resolved Date Acute cystitis 12/16/2021 01/15/2022 Adjustment disorder with mix ed anxiety and depressed mood 04/29/2021 08/26/2021 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[facility]) 08/27/2015 08/26/2021 Anxiety state 08/26/2021 documented as of this encounter (statuses as of 01/26/2025) [facility] Work Phone: 1(704) 533-131801-24-2022 History of Past illness Narrative* Problem Noted Date Diagnosed Date Resolved Date Acute cystitis 12/16/2021 01/15/2022 Adjustment disorder with mix ed anxiety and depressed mood 04/29/2021 08/26/2021 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[facility]) 08/27/2015 08/26/2021 Anxiety state 08/26/2021 documented as of this encounter (statuses as of 02/09/2025) [facility] Work Phone: 1(997) 717-222101-24-2022 History of Past illness Narrative* Problem Noted Date Diagnosed Date Resolved Date Acute cystitis 12/16/2021 01/15/2022 Adjustment disorder with mix ed anxiety and depressed mood 04/29/2021 08/26/2021 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[facility]) 08/27/2015 08/26/2021 Anxiety state 08/26/2021 documented as of this encounter (statuses as of 02/10/2025) [facility] Work Phone: 1([phone]) 851-131601-24-2022 History of Past illness Narrative* Problem Noted Date Diagnosed Date Resolved Date Acute cystitis 12/16/2021 01/15/2022 Adjustment disorder with mix ed anxiety and depressed mood 04/29/2021 08/26/2021 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[facility]) 08/27/2015 08/26/2021 Anxiety state 08/26/2021 documented as of this encounter (statuses as of 02/13/2025) [facility] Work Phone: 1(940) 589-663601-24-2022 History of Past illness Narrative* Problem Noted Date Diagnosed Date Resolved Date Acute cystitis 12/16/2021 01/15/2022 Adjustment disorder with mix ed anxiety and depressed mood 04/29/2021 08/26/2021 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[facility]) 08/27/2015 08/26/2021 Anxiety state 08/26/2021 documented as of this encounter (statuses as of 02/16/2025) [facility] Work Phone: 1(999) 999-376301-24-2022 History of Past illness Narrative* Problem Noted Date Diagnosed Date Resolved Date Acute cystitis 12/16/2021 01/15/2022 Adjustment disorder with mix ed anxiety and depressed mood 04/29/2021 08/26/2021 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[facility]) 08/27/2015 08/26/2021 Anxiety state 08/26/2021 documented as of this encounter (statuses as of 02/21/2025) [facility] Work Phone: [phone] 176-391701-24-2022 History of Past illness Narrative* Problem Noted Date Diagnosed Date Resolved Date Acute cystitis 12/16/2021 01/15/2022 Adjustment disorder with mix ed anxiety and depressed mood 04/29/2021 08/26/2021 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[facility]) 08/27/2015 08/26/2021 Anxiety state 08/26/2021 documented as of this encounter (statuses as of 03/02/2025) [employer] Phone: [phone]) 145-396101-24-2022 History of Past illness Narrative* Problem Noted Date Diagnosed Date Resolved Date Acute cystitis 12/16/2021 01/15/2022 Adjustment disorder with mix ed anxiety and depressed mood 04/29/2021 08/26/2021 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[facility]) 08/27/2015 08/26/2021 Anxiety state 08/26/2021 documented as of this encounter (statuses as of 03/03/2025) [employer]: 1(114) 277-727501-24-2022 History of Past illness Narrative* Problem Noted Date Diagnosed Date Resolved Date Acute cystitis 12/16/2021 01/15/2022 Adjustment disorder with mix ed anxiety and depressed mood 04/29/2021 08/26/2021 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[facility]) 08/27/2015 08/26/2021 Anxiety state 08/26/2021 documented as of this encounter (statuses as of 03/04/2025) [employer]: 1([phone]) 542-934001-24-2022 History of Past illness Narrative* Problem Noted Date Diagnosed Date Resolved Date Acute cystitis 12/16/2021 01/15/2022 Adjustment disorder with mix ed anxiety and depressed mood 04/29/2021 08/26/2021 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[facility]) 08/27/2015 08/26/2021 Anxiety state 08/26/2021 documented as of this encounter (statuses as of 03/13/2025) [facility] Work Phone: 1(421) 339-675701-24-2022 History of Past illness Narrative* Problem Noted Date Diagnosed Date Resolved Date Acute cystitis 12/16/2021 01/15/2022 Adjustment disorder with mix ed anxiety and depressed mood 04/29/2021 08/26/2021 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[facility]) 08/27/2015 08/26/2021 Anxiety state 08/26/2021 documented as of this encounter (statuses as of 03/13/2025) [facility] Work Phone: 1(468) 218-178401-24-2022 History of Past illness Narrative* Problem Noted Date Diagnosed Date Resolved Date Acute cystitis 12/16/2021 01/15/2022 Adjustment disorder with mix ed anxiety and depressed mood 04/29/2021 08/26/2021 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[facility]) 08/27/2015 08/26/2021 Anxiety state 08/26/2021 documented as of this encounter (statuses as of 03/15/2025) [facility] Work Phone: 1(612) 348-657401-24-2022 History of Past illness Narrative* Problem Noted Date Diagnosed Date Resolved Date Acute cystitis 12/16/2021 01/15/2022 Adjustment disorder with mix ed anxiety and depressed mood 04/29/2021 08/26/2021 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[facility]) 08/27/2015 08/26/2021 Anxiety state 08/26/2021 documented as of this encounter (statuses as of 03/20/2025) [facility] Work Phone: 1(754) 549-168701-24-2022 History of Past illness Narrative* Problem Noted Date Diagnosed Date Resolved Date Acute cystitis 12/16/2021 01/15/2022 Adjustment disorder with mix ed anxiety and depressed mood 04/29/2021 08/26/2021 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[facility]) 08/27/2015 08/26/2021 Anxiety state 08/26/2021 documented as of this encounter (statuses as of 03/25/2025) [facility] [employer] Phone: 1(809) 496-372201-24-2022 History of Past illness Narrative* Problem Noted Date Diagnosed Date Resolved Date Acute cystitis 12/16/2021 01/15/2022 Adjustment disorder with mix ed anxiety and depressed mood 04/29/2021 08/26/2021 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[facility]) 08/27/2015 08/26/2021 Anxiety state 08/26/2021 documented as of this encounter (statuses as of 04/24/2025) [facility] Work Phone: 1([phone]) 757-438501-24-2022 History of Past illness Narrative* Problem Noted Date Diagnosed Date Resolved Date Acute cystitis 12/16/2021 01/15/2022 Adjustment disorder with mix ed anxiety and depressed mood 04/29/2021 08/26/2021 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[facility]) 08/27/2015 08/26/2021 Anxiety state 08/26/2021 documented as of this encounter (statuses as of 05/02/2025) [facility] Work Phone: 1([phone]) 866-595401-24-2022 History of Past illness Narrative* Problem Noted Date Diagnosed Date Resolved Date Acute cystitis 12/16/2021 01/15/2022 Adjustment disorder with mix ed anxiety and depressed mood 04/29/2021 08/26/2021 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[facility]) 08/27/2015 08/26/2021 Anxiety state 08/26/2021 documented as of this encounter (statuses as of 05/09/2025) [facility] Work Phone: 1([phone]) 155-762301-24-2022 History of Past illness Narrative* Problem Noted Date Diagnosed Date Resolved Date Acute cystitis 12/16/2021 01/15/2022 Adjustment disorder with mix ed anxiety and depressed mood 04/29/2021 08/26/2021 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[facility]) 08/27/2015 08/26/2021 Anxiety state 08/26/2021 documented as of this encounter (statuses as of 05/11/2025) [facility] Work Phone: [phone]) 872-592501-24-2022 History of Past illness Narrative* Problem Noted Date Diagnosed Date Resolved Date Acute cystitis 12/16/2021 01/15/2022 Adjustment disorder with mix ed anxiety and depressed mood 04/29/2021 08/26/2021 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[facility]) 08/27/2015 08/26/2021 Anxiety state 08/26/2021 documented as of this encounter (statuses as of 05/11/2025) [facility] Work Phone: [phone]) 471-820801-24-2022 History of Past illness Narrative* Problem Noted Date Diagnosed Date Resolved Date Acute cystitis 12/16/2021 01/15/2022 Adjustment disorder with mix ed anxiety and depressed mood 04/29/2021 08/26/2021 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[facility]) 08/27/2015 08/26/2021 Anxiety state 08/26/2021 documented as of this encounter (statuses as of 05/15/2025) [employer] Phone: 1(751) 656-383001-24-2022 History of Past illness Narrative* Problem Noted Date Diagnosed Date Resolved Date Acute cystitis 12/16/2021 01/15/2022 Adjustment disorder with mix ed anxiety and depressed mood 04/29/2021 08/26/2021 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[facility]) 08/27/2015 08/26/2021 Anxiety state 08/26/2021 documented as of this encounter (statuses as of 05/16/2025) [employer]: 1(398) 402-849801-24-2022 History of Past illness Narrative* Problem Noted Date Diagnosed Date Resolved Date Acute cystitis 12/16/2021 01/15/2022 Adjustment disorder with mix ed anxiety and depressed mood 04/29/2021 08/26/2021 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[facility]) 08/27/20 15 08/26/2021 Anxiety state 08/26/2021 documented as of this encounter (statuses as of 05/18/2025) [employer]: [phone] 212-896601-24-2022 History of Past illness Narrative* Problem Noted Date Diagnosed Date Resolved Date Acute cystitis 12/16/2021 01/15/2022 Adjustment disorder with mix ed anxiety and depressed mood 04/29/2021 08/26/2021 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[facility]) 08/27/20 15 08/26/2021 Anxiety state 08/26/2021 documented as of this encounter (statuses as of 05/18/2025) [facility] Work Phone: [phone] History of Past illness Narrative* Problem Noted Date Diagnosed Date Resolved Date Acute cystitis 12/16/2021 01/15/2022 Adjustment disorder with mix ed anxiety and depressed mood 04/29/2021 08/26/2021 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[facility]) 08/27/20 15 08/26/2021 Anxiety state 08/26/2021 documented as of this encounter (statuses as of 05/24/2025) [facility] Work Phone: 1(771) 319-358701-24-2022 History of Past illness Narrative* Problem Noted Date Diagnosed Date Resolved Date Acute cystitis 12/16/2021 01/15/2022 Adjustment disorder with mix ed anxiety and depressed mood 04/29/2021 08/26/2021 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[facility]) 08/27/20 15 08/26/2021 Anxiety state 08/26/2021 documented as of this encounter (statuses as of 05/29/2025) [facility] Work Phone: [phone] 213-165501-24-2022 History of Past illness Narrative* Problem Noted Date Diagnosed Date Resolved Date Acute cystitis 12/16/2021 01/15/2022 Adjustment disorder with mix ed anxiety and depressed mood 04/29/2021 08/26/2021 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[facility]) 08/27/20 15 08/26/2021 Anxiety state 08/26/2021 documented as of this encounter (statuses as of 06/25/2025) [facility] Work Phone: 1([phone]) [phone] History of Past illness Narrative* Problem Noted Date Diagnosed Date Resolved Date Acute cystitis 12/16/2021 01/15/2022 Adjustment disorder with mix ed anxiety and depressed mood 04/29/2021 08/26/2021 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[facility]) 08/27/20 15 08/26/2021 Anxiety state 08/26/2021 documented as of this encounter (statuses as of 07/04/2025) [facility] Work Phone: 1(940) 770-961101-24-2022 History of Past illness Narrative* Problem Noted Date Diagnosed Date Resolved Date Acute cystitis 12/16/2021 01/15/2022 Adjustment disorder with mix ed anxiety and depressed mood 04/29/2021 08/26/2021 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[facility]) 08/27/20 15 08/26/2021 Anxiety state 08/26/2021 documented as of this encounter (statuses as of 07/05/2025) [facility] Work Phone: [phone] 193-214301-24-2022 History of Past illness Narrative* Problem Noted Date Diagnosed Date Resolved Date Acute cystitis 12/16/2021 01/15/2022 Adjustment disorder with mix ed anxiety and depressed mood 04/29/2021 08/26/2021 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[facility]) 08/27/20 15 08/26/2021 Anxiety state 08/26/2021 documented as of this encounter (statuses as of 07/10/2025) [facility] Work Phone: 1(774) 469-333101-24-2022 History of Past illness Narrative* Problem Noted Date Diagnosed Date Resolved Date Acute cystitis 12/16/2021 01/15/2022 Adjustment disorder with mix ed anxiety and depressed mood 04/29/2021 08/26/2021 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[facility]) 08/27/20 15 08/26/2021 Anxiety state 08/26/2021 documented as of this encounter (statuses as of 07/16/2025) [facility] Work Phone: 1(486) [phone] History of Past illness Narrative* Problem Noted Date Diagnosed Date Resolved Date Acute cystitis 12/16/2021 01/15/2022 Adjustment disorder with mix ed anxiety and depressed mood 04/29/2021 08/26/2021 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[facility]) 08/27/20 15 08/26/2021 Anxiety state 08/26/2021 documented as of this encounter (statuses as of 07/30/2025) [facility] Work Phone: [phone]) [phone] History of Past illness Narrative* Problem Noted Date Diagnosed Date Resolved Date Acute cystitis 12/16/2021 01/15/2022 Adjustment disorder with mix ed anxiety and depressed mood 04/29/2021 08/26/2021 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[facility]) 08/27/20 15 08/26/2021 Anxiety state 08/26/2021 documented as of this encounter (statuses as of 08/04/2025) [facility] Work Phone: 1(641) [phone] History of Past illness Narrative* Problem Noted Date Diagnosed Date Resolved Date Acute cystitis 12/16/2021 01/15/2022 Adjustment disorder with mix ed anxiety and depressed mood 04/29/2021 08/26/2021 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[facility]) 08/27/20 15 08/26/2021 Anxiety state 08/26/2021 documented as of this encounter (statuses as of 08/11/2025) [employer]: 1(751) 103-856601-24-2022 History of Past illness Narrative* Problem Noted Date Diagnosed Date Resolved Date Acute cystitis 12/16/2021 01/15/2022 Adjustment disorder with mix ed anxiety and depressed mood 04/29/2021 08/26/2021 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[facility]) 08/27/20 15 08/26/2021 Anxiety state 08/26/2021 documented as of this encounter (statuses as of 08/20/2025) [employer]: [phone] History of Past illness Narrative* Problem Noted Date Diagnosed Date Resolved Date Acute cystitis 12/16/2021 01/15/2022 Adjustment disorder with mix ed anxiety and depressed mood 04/29/2021 08/26/2021 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[facility]) 08/27/20 15 08/26/2021 Anxiety state 08/26/2021 documented as of this encounter (statuses as of 08/20/2025) [employer]: 1(135) [phone] History of Past illness Narrative* Problem Noted Date Diagnosed Date Resolved Date Acute cystitis 12/16/2021 01/15/2022 Adjustment disorder with mix ed anxiety and depressed mood 04/29/2021 08/26/2021 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[facility]) 08/27/20 15 08/26/2021 Anxiety state 08/26/2021 documented as of this encounter (statuses as of 08/25/2025) [facility] Work Phone: 1(118) 387-223901-24-2022 History of Past illness Narrative* Problem Noted Date Diagnosed Date Resolved Date Acute cystitis 12/16/2021 01/15/2022 Adjustment disorder with mix ed anxiety and depressed mood 04/29/2021 08/26/2021 Mild mixed bipolar I disorder 08/27/2015 08/26/2021 Anxiety state 08/26/2021 documented as of this encounter (statuses as of 08/31/2025) [employer]: 1(418) 208-976201-24-2022 History of Past illness Narrative* Problem Noted Date Diagnosed Date Resolved Date Acute cystitis 12/16/2021 01/15/2022 Adjustment disorder with mix ed anxiety and depressed mood 04/29/2021 08/26/2021 Mild mixed bipolar I disorder 08/27/2015 08/26/2021 Anxiety state 08/26/2021 documented as of this encounter (statuses as of 09/07/2025) [employer]: 1([phone]) 136-324001-24-2022 History of Past illness Narrative* Problem Noted Date Diagnosed Date Resolved Date Acute cystitis 12/16/2021 01/15/2022 Adjustment disorder with mix ed anxiety and depressed mood 04/29/2021 08/26/2021 Mild mixed bipolar I disorder 08/27/2015 08/26/2021 Anxiety state 08/26/2021 documented as of this encounter (statuses as of 09/14/2025) [employer]: 1(286) 373-418201-24-2022 History of Past illness Narrative* Problem Noted Date Diagnosed Date Resolved Date Acute cystitis 12/16/2021 01/15/2022 Adjustment disorder with mix ed anxiety and depressed mood 04/29/2021 08/26/2021 Mild mixed bipolar I disorder 08/27/2015 08/26/2021 Anxiety state 08/26/2021 documented as of this encounter (statuses as of 09/24/2025) [employer]: 1(275) 579-601505-26-2021 History of Past illness Narrative* Problem Noted Date Resolved Date (spontaneous vaginal delivery) 04/17/2021 05/07/2021 Admitted to labor and delivery 04/16/2021 0 05/07/2021 Full-term premature rupture of membranes 021 05/07/2021 Rubella non-immune status, antepartum 10/16/2020 05/07/2021 Encounter for supervision of normal first pregna ncy 09/17/2020 05/07/2021 Peripheral vertigo 07/18/2019 09/17/2020 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/16/2019 CHATO positive 02/16/2019 09/17/2020 Itching 02/16/2019 09/17/2020 Rash 02/16/2019 09/17/2020 Vomiting, persistent, in adult 02/16/2019 1 Routine gynecological examination 10/26/2014 09/17/2020 Endometriosis 10/26/2014 10/16/2020 Other protein-calorie malnutrition 04/06/2006 09/17/2020 documented as of this encounter (statuses as of 03/04/2022) [facility]21 History of Past illness Narrative* Problem Noted Date Resolved Date (spontaneous vaginal delivery) 04/17/2021 05/07/2021 Admitted to labor and delivery 04/16/2021 0 05/07/2021 Full-term premature rupture of membranes 021 05/07/2021 Rubella non-immune status, antepartum 10/16/2020 05/07/2021 Encounter for supervision of normal first pregna ncy 09/17/2020 05/07/2021 Peripheral vertigo 07/18/2019 09/17/2020 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/16/2019 CHATO positive 02/16/2019 09/17/2020 Itching 02/16/2019 09/17/2020 Rash 02/16/2019 09/17/2020 Vomiting, persistent, in adult 02/16/2019 1 Routine gynecological examination 10/26/2014 09/17/2020 Endometriosis 10/26/2014 10/16/2020 Other protein-calorie malnutrition 04/06/2006 09/17/2020 documented as of this encounter (statuses as of 03/06/2022) [facility] History of Past illness Narrative* Problem Noted Date Resolved Date (spontaneous vaginal delivery) 04/17/2021 05/07/2021 Admitted to labor and delivery 04/16/2021 0 05/07/2021 Full-term premature rupture of membranes 021 05/07/2021 Rubella non-immune status, antepartum 10/16/2020 05/07/2021 Encounter for supervision of normal first pregna ncy 09/17/2020 05/07/2021 Peripheral vertigo 07/18/2019 09/17/2020 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/16/2019 CHATO positive 02/16/2019 09/17/2020 Itching 02/16/2019 09/17/2020 Rash 02/16/2019 09/17/2020 Vomiting, persistent, in adult 02/16/2019 1 Routine gynecological examination 10/26/2014 09/17/2020 Endometriosis 10/26/2014 10/16/2020 Other protein-calorie malnutrition 04/06/2006 09/17/2020 documented as of this encounter (statuses as of 03/12/2022) [facility] History of Past illness Narrative* Problem Noted Date Resolved Date (spontaneous vaginal delivery) 04/17/2021 05/07/2021 Admitted to labor and delivery 04/16/2021 0 05/07/2021 Full-term premature rupture of membranes 021 05/07/2021 Rubella non-immune status, antepartum 10/16/2020 05/07/2021 Encounter for supervision of normal first pregna ncy 09/17/2020 05/07/2021 Peripheral vertigo 07/18/2019 09/17/2020 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/16/2019 CHATO positive 02/16/2019 09/17/2020 Itching 02/16/2019 09/17/2020 Rash 02/16/2019 09/17/2020 Vomiting, persistent, in adult 02/16/2019 1 Routine gynecological examination 10/26/2014 09/17/2020 Endometriosis 10/26/2014 10/16/2020 Other protein-calorie malnutrition 04/06/2006 09/17/2020 documented as of this encounter (statuses as of 03/17/2022) [facility] History of Past illness Narrative* Problem Noted Date Resolved Date (spontaneous vaginal delivery) 04/17/2021 05/07/2021 Admitted to labor and delivery 04/16/2021 0 05/07/2021 Full-term premature rupture of membranes 021 05/07/2021 Rubella non-immune status, antepartum 10/16/2020 05/07/2021 Encounter for supervision of normal first pregna ncy 09/17/2020 05/07/2021 Peripheral vertigo 07/18/2019 09/17/2020 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/16/2019 CHATO positive 02/16/2019 09/17/2020 Itching 02/16/2019 09/17/2020 Rash 02/16/2019 09/17/2020 Vomiting, persistent, in adult 02/16/2019 1 Routine gynecological examination 10/26/2014 09/17/2020 Endometriosis 10/26/2014 10/16/2020 Other protein-calorie malnutrition 04/06/2006 09/17/2020 documented as of this encounter (statuses as of 04/09/2022) [facility] History of Past illness Narrative* Problem Noted Date Resolved Date (spontaneous vaginal delivery) 04/17/2021 05/07/2021 Admitted to labor and delivery 04/16/2021 0 05/07/2021 Full-term premature rupture of membranes 021 05/07/2021 Rubella non-immune status, antepartum 10/16/2020 05/07/2021 Encounter for supervision of normal first pregna ncy 09/17/2020 05/07/2021 Peripheral vertigo 07/18/2019 09/17/2020 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/16/2019 CHATO positive 02/16/2019 09/17/2020 Itching 02/16/2019 09/17/2020 Rash 02/16/2019 09/17/2020 Vomiting, persistent, in adult 02/16/2019 1 Routine gynecological examination 10/26/2014 09/17/2020 Endometriosis 10/26/2014 10/16/2020 Other protein-calorie malnutrition 04/06/2006 09/17/2020 documented as of this encounter (statuses as of 04/19/2022) [facility]21 History of Past illness Narrative* Problem Noted Date Resolved Date (spontaneous vaginal delivery) 04/17/2021 05/07/2021 Admitted to labor and delivery 04/16/2021 0 05/07/2021 Full-term premature rupture of membranes 021 05/07/2021 Rubella non-immune status, antepartum 10/16/2020 05/07/2021 Encounter for supervision of normal first pregna ncy 09/17/2020 05/07/2021 Peripheral vertigo 07/18/2019 09/17/2020 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/16/2019 CHATO positive 02/16/2019 09/17/2020 Itching 02/16/2019 09/17/2020 Rash 02/16/2019 09/17/2020 Vomiting, persistent, in adult 02/16/2019 1 Routine gynecological examination 10/26/2014 09/17/2020 Endometriosis 10/26/2014 10/16/2020 Other protein-calorie malnutrition 04/06/2006 09/17/2020 documented as of this encounter (statuses as of 05/06/2022) [facility] History of Past illness Narrative* Problem Noted Date Resolved Date (spontaneous vaginal delivery) 04/17/2021 05/07/2021 Admitted to labor and delivery 04/16/2021 0 05/07/2021 Full-term premature rupture of membranes 021 05/07/2021 Rubella non-immune status, antepartum 10/16/2020 05/07/2021 Encounter for supervision of normal first pregna ncy 09/17/2020 05/07/2021 Peripheral vertigo 07/18/2019 09/17/2020 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/16/2019 CHATO positive 02/16/2019 09/17/2020 Itching 02/16/2019 09/17/2020 Rash 02/16/2019 09/17/2020 Vomiting, persistent, in adult 02/16/2019 1 Routine gynecological examination 10/26/2014 09/17/2020 Endometriosis 10/26/2014 10/16/2020 Other protein-calorie malnutrition 04/06/2006 09/17/2020 documented as of this encounter (statuses as of 05/07/2022) [facility] History of Past illness Narrative* Problem Noted Date Resolved Date (spontaneous vaginal delivery) 04/17/2021 05/07/2021 Admitted to labor and delivery 04/16/2021 0 05/07/2021 Full-term premature rupture of membranes 021 05/07/2021 Rubella non-immune status, antepartum 10/16/2020 05/07/2021 Encounter for supervision of normal first pregna ncy 09/17/2020 05/07/2021 Peripheral vertigo 07/18/2019 09/17/2020 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/16/2019 CHATO positive 02/16/2019 09/17/2020 Itching 02/16/2019 09/17/2020 Rash 02/16/2019 09/17/2020 Vomiting, persistent, in adult 02/16/2019 1 Routine gynecological examination 10/26/2014 09/17/2020 Endometriosis 10/26/2014 10/16/2020 Other protein-calorie malnutrition 04/06/2006 09/17/2020 documented as of this encounter (statuses as of 05/13/2022) [facility] History of Past illness Narrative* Problem Noted Date Resolved Date (spontaneous vaginal delivery) 04/17/2021 05/07/2021 Admitted to labor and delivery 04/16/2021 0 05/07/2021 Full-term premature rupture of membranes 021 05/07/2021 Rubella non-immune status, antepartum 10/16/2020 05/07/2021 Encounter for supervision of normal first pregna ncy 09/17/2020 05/07/2021 Peripheral vertigo 07/18/2019 09/17/2020 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/16/2019 CHATO positive 02/16/2019 09/17/2020 Itching 02/16/2019 09/17/2020 Rash 02/16/2019 09/17/2020 Vomiting, persistent, in adult 02/16/2019 1 Routine gynecological examination 10/26/2014 09/17/2020 Endometriosis 10/26/2014 10/16/2020 Other protein-calorie malnutrition 04/06/2006 09/17/2020 documented as of this encounter (statuses as of 05/15/2022) [facility] History of Past illness Narrative* Problem Noted Date Resolved Date (spontaneous vaginal delivery) 04/17/2021 05/07/2021 Admitted to labor and delivery 04/16/2021 0 05/07/2021 Full-term premature rupture of membranes 021 05/07/2021 Rubella non-immune status, antepartum 10/16/2020 05/07/2021 Encounter for supervision of normal first pregna ncy 09/17/2020 05/07/2021 Peripheral vertigo 07/18/2019 09/17/2020 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/16/2019 CHATO positive 02/16/2019 09/17/2020 Itching 02/16/2019 09/17/2020 Rash 02/16/2019 09/17/2020 Vomiting, persistent, in adult 02/16/2019 1 Routine gynecological examination 10/26/2014 09/17/2020 Endometriosis 10/26/2014 10/16/2020 Other protein-calorie malnutrition 04/06/2006 09/17/2020 documented as of this encounter (statuses as of 05/27/2022) [facility] History of Past illness Narrative* Problem Noted Date Resolved Date (spontaneous vaginal delivery) 04/17/2021 05/07/2021 Admitted to labor and delivery 04/16/2021 0 05/07/2021 Full-term premature rupture of membranes 021 05/07/2021 Rubella non-immune status, antepartum 10/16/2020 05/07/2021 Encounter for supervision of normal first pregna ncy 09/17/2020 05/07/2021 Peripheral vertigo 07/18/2019 09/17/2020 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/16/2019 CHATO positive 02/16/2019 09/17/2020 Itching 02/16/2019 09/17/2020 Rash 02/16/2019 09/17/2020 Vomiting, persistent, in adult 02/16/2019 1 Routine gynecological examination 10/26/2014 09/17/2020 Endometriosis 10/26/2014 10/16/2020 Other protein-calorie malnutrition 04/06/2006 09/17/2020 documented as of this encounter (statuses as of 06/03/2022) [facility] History of Past illness Narrative* Problem Noted Date Resolved Date (spontaneous vaginal delivery) 04/17/2021 05/07/2021 Admitted to labor and delivery 04/16/2021 0 05/07/2021 Full-term premature rupture of membranes 021 05/07/2021 Rubella non-immune status, antepartum 10/16/2020 05/07/2021 Encounter for supervision of normal first pregna ncy 09/17/2020 05/07/2021 Peripheral vertigo 07/18/2019 09/17/2020 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/16/2019 CHATO positive 02/16/2019 09/17/2020 Itching 02/16/2019 09/17/2020 Rash 02/16/2019 09/17/2020 Vomiting, persistent, in adult 02/16/2019 1 Routine gynecological examination 10/26/2014 09/17/2020 Endometriosis 10/26/2014 10/16/2020 Other protein-calorie malnutrition 04/06/2006 09/17/2020 documented as of this encounter (statuses as of 06/03/2022) [facility] History of Past illness Narrative* Problem Noted Date Resolved Date (spontaneous vaginal delivery) 04/17/2021 05/07/2021 Admitted to labor and delivery 04/16/2021 0 05/07/2021 Full-term premature rupture of membranes 021 05/07/2021 Rubella non-immune status, antepartum 10/16/2020 05/07/2021 Encounter for supervision of normal first pregna ncy 09/17/2020 05/07/2021 Peripheral vertigo 07/18/2019 09/17/2020 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/16/2019 CHATO positive 02/16/2019 09/17/2020 Itching 02/16/2019 09/17/2020 Rash 02/16/2019 09/17/2020 Vomiting, persistent, in adult 02/16/2019 1 Routine gynecological examination 10/26/2014 09/17/2020 Endometriosis 10/26/2014 10/16/2020 Other protein-calorie malnutrition 04/06/2006 09/17/2020 documented as of this encounter (statuses as of 06/03/2022) [facility] History of Past illness Narrative* Problem Noted Date Resolved Date (spontaneous vaginal delivery) 04/17/2021 05/07/2021 Admitted to labor and delivery 04/16/2021 0 05/07/2021 Full-term premature rupture of membranes 021 05/07/2021 Rubella non-immune status, antepartum 10/16/2020 05/07/2021 Encounter for supervision of normal first pregna ncy 09/17/2020 05/07/2021 Peripheral vertigo 07/18/2019 09/17/2020 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/16/2019 CHATO positive 02/16/2019 09/17/2020 Itching 02/16/2019 09/17/2020 Rash 02/16/2019 09/17/2020 Vomiting, persistent, in adult 02/16/2019 1 Routine gynecological examination 10/26/2014 09/17/2020 Endometriosis 10/26/2014 10/16/2020 Other protein-calorie malnutrition 04/06/2006 09/17/2020 documented as of this encounter (statuses as of 06/11/2022) [facility] History of Past illness Narrative* Problem Noted Date Resolved Date (spontaneous vaginal delivery) 04/17/2021 05/07/2021 Admitted to labor and delivery 04/16/2021 0 05/07/2021 Full-term premature rupture of membranes 021 05/07/2021 Rubella non-immune status, antepartum 10/16/2020 05/07/2021 Encounter for supervision of normal first pregna ncy 09/17/2020 05/07/2021 Peripheral vertigo 07/18/2019 09/17/2020 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/16/2019 CHATO positive 02/16/2019 09/17/2020 Itching 02/16/2019 09/17/2020 Rash 02/16/2019 09/17/2020 Vomiting, persistent, in adult 02/16/2019 1 Routine gynecological examination 10/26/2014 09/17/2020 Endometriosis 10/26/2014 10/16/2020 Other protein-calorie malnutrition 04/06/2006 09/17/2020 documented as of this encounter (statuses as of 06/12/2022) [facility] History of Past illness Narrative* Problem Noted Date Resolved Date (spontaneous vaginal delivery) 04/17/2021 05/07/2021 Admitted to labor and delivery 04/16/2021 0 05/07/2021 Full-term premature rupture of membranes 021 05/07/2021 Rubella non-immune status, antepartum 10/16/2020 05/07/2021 Encounter for supervision of normal first pregna ncy 09/17/2020 05/07/2021 Peripheral vertigo 07/18/2019 09/17/2020 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/16/2019 CHATO positive 02/16/2019 09/17/2020 Itching 02/16/2019 09/17/2020 Rash 02/16/2019 09/17/2020 Vomiting, persistent, in adult 02/16/2019 1 Routine gynecological examination 10/26/2014 09/17/2020 Endometriosis 10/26/2014 10/16/2020 Other protein-calorie malnutrition 04/06/2006 09/17/2020 documented as of this encounter (statuses as of 06/24/2022) [facility] History of Past illness Narrative* Problem Noted Date Resolved Date (spontaneous vaginal delivery) 04/17/2021 05/07/2021 Admitted to labor and delivery 04/16/2021 0 05/07/2021 Full-term premature rupture of membranes 021 05/07/2021 Rubella non-immune status, antepartum 10/16/2020 05/07/2021 Encounter for supervision of normal first pregna ncy 09/17/2020 05/07/2021 Peripheral vertigo 07/18/2019 09/17/2020 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/16/2019 CHATO positive 02/16/2019 09/17/2020 Itching 02/16/2019 09/17/2020 Rash 02/16/2019 09/17/2020 Vomiting, persistent, in adult 02/16/2019 1 Routine gynecological examination 10/26/2014 09/17/2020 Endometriosis 10/26/2014 10/16/2020 Other protein-calorie malnutrition 04/06/2006 09/17/2020 documented as of this encounter (statuses as of 06/25/2022) [facility] History of Past illness Narrative* Problem Noted Date Resolved Date (spontaneous vaginal delivery) 04/17/2021 05/07/2021 Admitted to labor and delivery 04/16/2021 0 05/07/2021 Full-term premature rupture of membranes 021 05/07/2021 Rubella non-immune status, antepartum 10/16/2020 05/07/2021 Encounter for supervision of normal first pregna ncy 09/17/2020 05/07/2021 Peripheral vertigo 07/18/2019 09/17/2020 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/16/2019 CHATO positive 02/16/2019 09/17/2020 Itching 02/16/2019 09/17/2020 Rash 02/16/2019 09/17/2020 Vomiting, persistent, in adult 02/16/2019 1 Routine gynecological examination 10/26/2014 09/17/2020 Endometriosis 10/26/2014 10/16/2020 Other protein-calorie malnutrition 04/06/2006 09/17/2020 documented as of this encounter (statuses as of 06/25/2022) [facility] History of Past illness Narrative* Problem Noted Date Resolved Date (spontaneous vaginal delivery) 04/17/2021 05/07/2021 Admitted to labor and delivery 04/16/2021 0 05/07/2021 Full-term premature rupture of membranes 021 05/07/2021 Rubella non-immune status, antepartum 10/16/2020 05/07/2021 Encounter for supervision of normal first pregna ncy 09/17/2020 05/07/2021 Peripheral vertigo 07/18/2019 09/17/2020 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/16/2019 CHATO positive 02/16/2019 09/17/2020 Itching 02/16/2019 09/17/2020 Rash 02/16/2019 09/17/2020 Vomiting, persistent, in adult 02/16/2019 1 Routine gynecological examination 10/26/2014 09/17/2020 Endometriosis 10/26/2014 10/16/2020 Other protein-calorie malnutrition 04/06/2006 09/17/2020 documented as of this encounter (statuses as of 06/26/2022) [facility] History of Past illness Narrative* Problem Noted Date Resolved Date (spontaneous vaginal delivery) 04/17/2021 05/07/2021 Admitted to labor and delivery 04/16/2021 0 05/07/2021 Full-term premature rupture of membranes 021 05/07/2021 Rubella non-immune status, antepartum 10/16/2020 05/07/2021 Encounter for supervision of normal first pregna ncy 09/17/2020 05/07/2021 Peripheral vertigo 07/18/2019 09/17/2020 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/16/2019 CHATO positive 02/16/2019 09/17/2020 Itching 02/16/2019 09/17/2020 Rash 02/16/2019 09/17/2020 Vomiting, persistent, in adult 02/16/2019 1 Routine gynecological examination 10/26/2014 09/17/2020 Endometriosis 10/26/2014 10/16/2020 Other protein-calorie malnutrition 04/06/2006 09/17/2020 documented as of this encounter (statuses as of 06/27/2022) [facility] History of Past illness Narrative* Problem Noted Date Resolved Date (spontaneous vaginal delivery) 04/17/2021 05/07/2021 Admitted to labor and delivery 04/16/2021 0 05/07/2021 Full-term premature rupture of membranes 021 05/07/2021 Rubella non-immune status, antepartum 10/16/2020 05/07/2021 Encounter for supervision of normal first pregna ncy 09/17/2020 05/07/2021 Peripheral vertigo 07/18/2019 09/17/2020 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/16/2019 CHATO positive 02/16/2019 09/17/2020 Itching 02/16/2019 09/17/2020 Rash 02/16/2019 09/17/2020 Vomiting, persistent, in adult 02/16/2019 1 Routine gynecological examination 10/26/2014 09/17/2020 Endometriosis 10/26/2014 10/16/2020 Other protein-calorie malnutrition 04/06/2006 09/17/2020 documented as of this encounter (statuses as of 06/30/2022) [facility] History of Past illness Narrative* Problem Noted Date Resolved Date (spontaneous vaginal delivery) 04/17/2021 05/07/2021 Admitted to labor and delivery 04/16/2021 0 05/07/2021 Full-term premature rupture of membranes 021 05/07/2021 Rubella non-immune status, antepartum 10/16/2020 05/07/2021 Encounter for supervision of normal first pregna ncy 09/17/2020 05/07/2021 Peripheral vertigo 07/18/2019 09/17/2020 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/16/2019 CHATO positive 02/16/2019 09/17/2020 Itching 02/16/2019 09/17/2020 Rash 02/16/2019 09/17/2020 Vomiting, persistent, in adult 02/16/2019 1 Routine gynecological examination 10/26/2014 09/17/2020 Endometriosis 10/26/2014 10/16/2020 Other protein-calorie malnutrition 04/06/2006 09/17/2020 documented as of this encounter (statuses as of 07/03/2022) [facility] History of Past illness Narrative* Problem Noted Date Resolved Date (spontaneous vaginal delivery) 04/17/2021 05/07/2021 Admitted to labor and delivery 04/16/2021 0 05/07/2021 Full-term premature rupture of membranes 021 05/07/2021 Rubella non-immune status, antepartum 10/16/2020 05/07/2021 Encounter for supervision of normal first pregna ncy 09/17/2020 05/07/2021 Peripheral vertigo 07/18/2019 09/17/2020 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/16/2019 CHATO positive 02/16/2019 09/17/2020 Itching 02/16/2019 09/17/2020 Rash 02/16/2019 09/17/2020 Vomiting, persistent, in adult 02/16/2019 1 Routine gynecological examination 10/26/2014 09/17/2020 Endometriosis 10/26/2014 10/16/2020 Other protein-calorie malnutrition 04/06/2006 09/17/2020 documented as of this encounter (statuses as of 07/03/2022) [facility] of Past illness Narrative* Problem Noted Date Resolved Date (spontaneous vaginal delivery) 04/17/2021 05/07/2021 Admitted to labor and delivery 04/16/2021 0 05/07/2021 Full-term premature rupture of membranes 021 05/07/2021 Rubella non-immune status, antepartum 10/16/2020 05/07/2021 Encounter for supervision of normal first pregna ncy 09/17/2020 05/07/2021 Peripheral vertigo 07/18/2019 09/17/2020 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/16/2019 CHATO positive 02/16/2019 09/17/2020 Itching 02/16/2019 09/17/2020 Rash 02/16/2019 09/17/2020 Vomiting, persistent, in adult 02/16/2019 1 Routine gynecological examination 10/26/2014 09/17/2020 Endometriosis 10/26/2014 10/16/2020 Other protein-calorie malnutrition 04/06/2006 09/17/2020 documented as of this encounter (statuses as of 07/10/2022) [facility] of Past illness Narrative* Problem Noted Date Resolved Date (spontaneous vaginal delivery) 04/17/2021 05/07/2021 Admitted to labor and delivery 04/16/2021 0 05/07/2021 Full-term premature rupture of membranes 021 05/07/2021 Rubella non-immune status, antepartum 10/16/2020 05/07/2021 Encounter for supervision of normal first pregna ncy 09/17/2020 05/07/2021 Peripheral vertigo 07/18/2019 09/17/2020 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/16/2019 CHATO positive 02/16/2019 09/17/2020 Itching 02/16/2019 09/17/2020 Rash 02/16/2019 09/17/2020 Vomiting, persistent, in adult 02/16/2019 1 Routine gynecological examination 10/26/2014 09/17/2020 Endometriosis 10/26/2014 10/16/2020 Other protein-calorie malnutrition 04/06/2006 09/17/2020 documented as of this encounter (statuses as of 07/16/2022) [facility] of Past illness Narrative* Problem Noted Date Resolved Date (spontaneous vaginal delivery) 04/17/2021 05/07/2021 Admitted to labor and delivery 04/16/2021 0 05/07/2021 Full-term premature rupture of membranes 021 05/07/2021 Rubella non-immune status, antepartum 10/16/2020 05/07/2021 Encounter for supervision of normal first pregna ncy 09/17/2020 05/07/2021 Peripheral vertigo 07/18/2019 09/17/2020 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/16/2019 CHATO positive 02/16/2019 09/17/2020 Itching 02/16/2019 09/17/2020 Rash 02/16/2019 09/17/2020 Vomiting, persistent, in adult 02/16/2019 1 Routine gynecological examination 10/26/2014 09/17/2020 Endometriosis 10/26/2014 10/16/2020 Other protein-calorie malnutrition 04/06/2006 09/17/2020 documented as of this encounter (statuses as of 07/21/2022) [facility] History of Past illness Narrative* Problem Noted Date Resolved Date (spontaneous vaginal delivery) 04/17/2021 05/07/2021 Admitted to labor and delivery 04/16/2021 0 05/07/2021 Full-term premature rupture of membranes 021 05/07/2021 Rubella non-immune status, antepartum 10/16/2020 05/07/2021 Encounter for supervision of normal first pregna ncy 09/17/2020 05/07/2021 Peripheral vertigo 07/18/2019 09/17/2020 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/16/2019 CHATO positive 02/16/2019 09/17/2020 Itching 02/16/2019 09/17/2020 Rash 02/16/2019 09/17/2020 Vomiting, persistent, in adult 02/16/2019 1 Routine gynecological examination 10/26/2014 09/17/2020 Endometriosis 10/26/2014 10/16/2020 Other protein-calorie malnutrition 04/06/2006 09/17/2020 documented as of this encounter (statuses as of 09/04/2022) [facility] Araseli Babb [facility] Note Date/Time March 10, 2025 9:2 7am [facility] Medical Records Department [address] [place] [address] Emergency Department Summary 03/10/25 MR#: [id number] Acct: [id number] Name: ROSALVA HUANG Rep #:[id number] : 1990 35 From: Araseli Lobo PCP: Care Physician,No Primary Status :REG ER Location: ED HPI History of Present Illness Chief Complaint: Lower Extremity Injury Informant: patient Narrative Narrative: Patient is a 35-year-old female with 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 Patient states she woke up and was having severe pain in her bilateral legs. She woke up at 3 AM. She states she could not walk and fell because the pain was so bad. She was the left leg is worse than the right. She denies any trauma or injury. She describes the pain as severe and crushing. She states it seems to start in her mid thighs bilaterallyand work its way down. She is not sure if she has any swelling of her legs. She denies associated numbness. Denies any bowel or bladder incontinence. She denies any fever or chills. She states she moved to [place] yesterday the family. She is never any like this before. Did not take anything for symptoms prior arrival. No other complaints or concerns at this time. [facility] Medical History Bipolar disorder Gestational diabetes delivery delivered Breast abscess Home Medications ?Medication ?Instructions ?Recorded ?Last Taken ?Type albuterol sulfate 90 mcg/actuation 2 puff inhalation Q 4H PRN PRN 07/29/18 Unknown Rx aerosol inhaler (Ventolin HFA) Wheezing ##1 clonazepam 1 mg tablet 1 mg PO DAILY PRN anxiety Unknown History epinephrine 0.3 mg/0.3 mL ml IM 03/10/25 Unknown Histo ry injection, auto-injector escitalopram oxalate 20 mg tablet 20 mg PO DAILY 03/10 Unknown History famotidine 20 mg tablet 20 mg PO BID 03/10/25 Unknow n History lamotrigine 200 mg tablet 200 mg PO DAILY 03/10/25 Unk nown History risperidone 0.5 mg tablet 0.5 mg PO QHS 03/10/25 Unkno wn History Allergy/AdvReac Type Severity Reaction Status Date / Time cephalexin AdvReac Rash Verified 03/10/25 06:15 clindamycin AdvReac Rash Verified 03/10/25 06:15 doxycycline AdvReac Rash Verified 03/10/25 06:15 vancomycin AdvReac Rash Verified 03/10/25 06:15 Social History household members: children Smoking Status: Never smoker substance use type: does not use ROS ROS ED Constitutional Constitutional ED: Denies chills or fever(s) Respiratory/Chest Respiratory/Chest: Denies cough or dyspnea Gastrointestinal Gastrointestinal: Denies nausea or vomiting Musculoskeletal Musculoskeletal: Reports myalgias and other Details: Bilateral lower leg pain Integumentary Denies rash Neurologic Neurologic: Denies paresthesias or weakness Hematologic/Lymphatic Hematologic/Lymphatic: Denies easy bleeding or easy bruising EXAM Physical Exam Const Vital Signs: 03/10/25 06:13 Temperature 98 F Temperature Source Temporal Pulse Rate 77 Respiratory Rate 17 Blood Pressure 121/76 H Blood Pressure Mean 91 Pulse Ox 99 Oxygen Delivery Method Room Air Positive well nourished and well developed General Appearance ED: well developed and NAD HEENT Reports moist mucous membranes HEENT Narrative: No facial swelling present normocephalic and atraumatic Neck supple Chest Wall inspection of chest normal Resp normal respiratory effort and clear to auscultation bilaterally Cardio regular rate and regular rhythm GI non-tender and non-distended Extremity normal to inspection Extremity Narrative: Patient is no obvious deformity of the extremities. No swelling. 2+ DP pulses present. Able to wiggle her toes. Has difficulty with movement of the legs butstates is because it is too painful. No rash appreciated. No palpable cords. No edema. Neuro oriented x3, moves all extremities and no sensory deficits noted Sensorium / Orientation: alert Deep Tendon Reflexes: Rt Patellar (L4): 2+ and Lt Patellar (L4): 1+ Deep Tendon Reflexes Back: Rt Patellar (L4): 2+ and Lt Patellar (L4): 1+ Plantar Reflex: Downgoing: bilateral Psych mental status grossly normal Mood & Affect: anxious Skin no wounds Skin Narrative: Multiple bruises on the upper arms consistent with prior IVs MDM MDM MDM Narrative Medical decision making narrative: Patient evaluated for severe lower extremity pain without any trauma. Her physical exam is relatively benign. She has had multiple frequent ER visits and hospitalizations at [facility] however they have been for allergic reactions (at this point it seems that there is suspicion that this is more chronic idiopathic urticaria and not true allergic reactions). Differential includes muscle skeletal pain, DVT, Electrolyte abnormality, rhabdomyolysis. Patient is given Toradol for pain as she has not take anything prior to arrival. Compartments are soft suspicion for compartment syndrome. She has good distal pulses and suspicion for acute vascular abnormality. She does not claim any associate abdominal pain or back pain. No cauda equina syndromes. She does nothave any numbness or weakness low suspicion for Gull[place] syndrome. On repeat evaluation patient states she still having pain but she does seem a bit more comfortable and is moving her legs more freely after the Toradol. Willgive Tylenol. Given that she does not have an obvious cause of her pain I do not think opioids are indicated at this time. Will obtain venous duplex. Anticipate this is normal will ambulation trial the patient to be discharged home. Patiently signed out to oncoming physician pending ultrasound results and final disposition. Lab Data Attestation: I reviewed the patient's lab results. Labs: Laboratory Results - last 24 hr 03/10/25 06:20 WBC 11.2 H RBC 4.72 Hgb 14.0 Hct 41.3 MCV 87.5 MCH 29.7 MCHC 33.9 RDW Std Deviation 42.8 RDW Coeff of Lance 13.3 Plt Count 299 MPV 9.8 Neut % (Auto) Not Reportable Absolute Neuts (auto) 6.4 Absolute Lymphs (auto) 3.92 Total Counted 100 Neutrophils % (Manual) 54 Band Neutrophils % 3 Lymphocytes % (Manual) 35 Monocytes % (Manual) 6 Eosinophils % (Manual) 2 Platelet Estimate ADEQUATE RBC Morphology NORM C+C Sodium 139 Potassium 3.5 Chloride 103 Carbon Dioxide 24.6 Anion Gap 11 BUN 16 Creatinine 0.90 Estim Creat Clear Calc 92.74 Est GFR (MDRD) Non-Af 86 BUN/Creatinine Ratio 17.6 Glucose 114 H Calcium 8.4 Magnesium 2.4 H Total Creatine Kinase 127 Discharge Plan Triage Chief Complaint: Lower Extremity Injury ED Provider: Araseli Babb Dx/Rx/DC Orders Clinical Impression: Bilateral lower extremity pain Prescriptions: No Action albuterol sulfate [Ventolin HFA] 1 INHALER inhaler 2 puff inhalation Q4H PRN PRN (Reason: Wheezing) Qty: 1 0RF lamotrigine 200 mg tablet 200 mg PO DAILY clonazepam 1 mg tablet 1 mg PO DAILY PRN (Reason: anxiety) famotidine 20 mg tablet 20 mg PO BID epinephrine 0.3 mg/0.3 mL auto-injector IM risperidone 0.5 mg tablet 0.5 mg PO QHS escitalopram oxalate 20 mg tablet 20 mg PO DAILY Primary Care Provider: Care Physician,No Primary Referrals: Care Physician,No Primary [Primary Care Provider] - Print Language: Citizen Of [place] What to do if you have Problems For any increased pain, shortness of breath, bleeding, nausea or vomiting, chestpain, or any unexpected problems, contact your Primary Care Provider. Call [facility] ([phone]) or report to the closest Emergency Room. Call 911 if necessary. 03/10/25 0725 <Electronically signed by Araseli Babb DO> Cosigner Signature (if applicable): CC: No Primary Care Physician ~ Signed ADDENDUM by Dr. Delano Zuniga MD on 03/10/25 at 0927 Patient turned over to me from the overnight physician Dr. Babb. Her bilateral lower extremity ultrasounds of her legs were negative. There is no DVT. I did add a sed rate which was normal at 8. And her CRP was mildly elevated at 5.98. Patient's exam of the lower extremities is unremarkable. Shecan move her legs. She has dorsi and plantarflexion. She has sensation. She has equal and symmetrical DP pulses. Calves are nontender. There is no cords. There is no edema. She has normal range of motion. Strength is hard to assess due to her effort. Differential would include like a myositis which is unlikely given her labs. Transverse myelitis again very unlikely. It is not a blood clot. There is no signs of acute infection. Is not a circulatory problem. Explained to the patient has not been admitted to the hospital for. We would not treat this with narcotic pain medication. And she was given a local primary care physician to follow-up with for further evaluation. Clinically it also does not come across as a [place]? syndrome. She has normal sensation. 03/10/25 0927<Electronically signed by Delano Zuniga MD> Cosigner Signature (if applicable): cc: No Primary Care Physician ~* Signed [facility] Work Phone: Evaluation note* Diagnosis care in second trimester- Primary 19 weeks gestation of state, incidental 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HCC) Bipolar I disorder, most recent episode (or current) mixed, mild Migraine without aura and without status migrainosus, not intractable Migraine without aura, without mention of intractable migraine without mention of status migrainosus Panic disorder without agoraphobia History of drug use Adjustment disorder with mixed anxiety and depressed mood [facility] Encounter for follow-up ultrasound of anatomy- Primary Medication exposure during first trimester of Supervision of other high-risk 20 weeks gestation of state, incidental [facility] Diagnosis Maternal care for (suspected) abnormality and damage, unspecified, [facility] 1 [facility] care in second trimester- Primary 25 weeks gestation of state, incidental [facility] Diagnosis care, subsequent , third trimester- Primary Encounter for long-term (current) use of medications Encounter for long-term (current) use of other medications [facility] Diagnosis Gestational diabetes mellitus, class A1- Primary Abnormal maternal glucose tolerance, complicating , childbirth, or the puerperium, unspecified as to episode of care [facility] Diagnosis Gestational diabetes mellitus, class A1 Abnormal maternal glucose tolerance, complicating , childbirth, or the puerperium, unspecified as to episode of care [facility] Diagnosis care in third trimester- Primary Diet controlled gestational diabetes mellitus (GDM) in third trimester- Primary Gestational diabetes mellitus (GDM) affecting second [facility] Diagnosis care in third trimester- Primary 32 weeks gestation of state, incidental Gestational diabetes mellitus (GDM) affecting second Pyelectasis of fetus on ultrasound Abnormal findings on screening [facility] Diagnosis Diet controlled gestational diabetes mellitus (GDM) in third trimester [facility] Diagnosis Suspected problem with growth not found- Primary 35 weeks gestation of state, incidental Pyelectasis of fetus on ultrasound Abnormal findings on screening Gestational diabetes mellitus, class A1 Abnormal maternal glucose tolerance, complicating , childbirth, or the puerperium, unspecified as to episode of care [facility] Diagnosis care in third trimester- Primary Gestational diabetes mellitus (GDM) affecting second Pyelectasis of fetus on ultrasound Abnormal findings on screening Anxiety state Anxiety state, unspecified Pelvic pressure in Other specified complication, antepartum Breech presentation with problem, single or unspecified fetus [facility]* Diagnosis Diet controlled gestational diabetes mellitus (GDM) in third trimester- Primary [facility]* Diagnosis care in third trimester- Primary 37 weeks gestation of state, incidental care in third trimester 36 weeks gestation of state, incidental Breech presentation, single or unspecified fetus [facility] Diagnosis Bilateral occipital neuralgia- Primary Other syndromes affecting cervical region Migraine without aura and without status migrainosus, not intractable Migraine without aura, without mention of intractable migraine without mention of status migrainosus 38 weeks gestation of state, incidental care in third trimester 36 weeks gestation of state, incidental Breech presentation, single or unspecified fetus [facility] Diagnosis Encounter for insertion of mirena IUD- Primary Encounter for insertion of intrauterine contraceptive device History of gestational diabetes Personal history of gestational diabetes care and examination [Z39.2 (ICD-10-CM)] Routine follow-up [facility]* Diagnosis UTI symptoms- Primary Other symptoms involving urinary system [facility]* Diagnosis Intractable migraine without aura and without status migrainosus- Primary Migraine without aura, with intractable migraine, so stated, without mention of status migrainosus Lightheadedness Dizziness and giddiness Exertional headache Headache [facility] noteNo assessment information availableWMercy [facility] Work Phone: Evaluation note* Diagnosis Bipolar disorder, current episode mixed, severe, without psychotic features (HCC-CMS)- Primary Bipolar I disorder, most recent episode (or current) mixed, severe, without mention of psychotic behavior Generalized anxiety disorder documented in this encounter [employer] Phone: Evaluation note* Diagnosis Acute otitis media, right- Primary Unspecified otitis media Nausea and vomiting, unspecified vomiting type documented in this encounter [facility] note* Diagnosis Bipolar disorder, current episode mixed, severe, without psychotic features (HCC-CMS)- Primary Bipolar I disorder, most recent episode (or current) mixed, severe, without mention of psychotic behavior documented in this encounter [employer] Phone: Evaluation note* Diagnosis Bipolar disorder in partial remission, most recent episode unspecified type (HCC-CMS) documented in this encounter [employer] Phone: Evaluation note* Diagnosis Fluid level behind tympanic membrane of both ears- Primary Tinnitus of right ear Unspecified tinnitus Hearing difficulty, bilateral documented in this encounter [facility] note* Diagnosis Wellness examination- Primary Rash of foot Nevus Benign neoplasm of skin, site unspecified Constipation, unspecified constipation type Atypical chest pain Other chest pain documented in this encounter [facility] note* Diagnosis Bipolar disorder, current episode mixed, severe, without psychotic features (HCC-CMS)- Primary Bipolar I disorder, most recent episode (or current) mixed, severe, without mention of psychotic behavior documented in this encounter [employer] Phone: Evaluation note* Diagnosis Bipolar disorder in partial remission, most recent episode unspecified type (HCC-CMS)- Primary documented in this encounter [employer] Phone: Evaluation note* Diagnosis Bipolar disorder, current episode mixed, severe, without psychotic features (HCC-CMS)- Primary Bipolar I disorder, most recent episode (or current) mixed, severe, without mention of psychotic behavior Generalized anxiety disorder documented in this encounter [employer] Phone: Evaluation note* Diagnosis Bipolar disorder, current episode mixed, severe, without psychotic features (HCC-CMS)- Primary Bipolar I disorder, most recent episode (or current) mixed, severe, without mention of psychotic behavior documented in this encounter [employer] Phone: evaluation note* Diagnosis Bipolar disorder in partial remission, most recent episode unspecified type (HCC-CMS)- Primary Generalized anxiety disorder documented in this encounter [employer] Phone: evaluation note* Diagnosis Bipolar disorder, current episode mixed, severe, without psychotic features (HCC-CMS)- Primary Bipolar I disorder, most recent episode (or current) mixed, severe, without mention of psychotic behavior Generalized anxiety disorder documented in this encounter [employer] Phone: evaluation note* Diagnosis Generalized anxiety disorder- Primary Post traumatic stress disorder Posttraumatic stress disorder Bipolar disorder, current episode mixed, severe, without psychotic features (HCC-CMS)- Primary Bipolar I disorder, most recent episode (or current) mixed, severe, without mention of psychotic behavior Generalized anxiety disorder documented in this encounter [employer] Phone: evaluation note* Diagnosis Bipolar disorder, current episode mixed, severe, without psychotic features (HCC-CMS)- Primary Bipolar I disorder, most recent episode (or current) mixed, severe, without mention of psychotic behavior Generalized anxiety disorder documented in this encounter [employer] Phone: evaluation note* Diagnosis Bipolar disorder, current episode mixed, severe, without psychotic features (HCC-CMS)- Primary Bipolar I disorder, most recent episode (or current) mixed, severe, without mention of psychotic behavior Generalized anxiety disorder documented in this encounter [employer] Phone: Evaluation note* Diagnosis Generalized anxiety disorder- Primary Post traumatic stress disorder Posttraumatic stress disorder documented in this encounter [employer] Phone: Evaluation note* Diagnosis Bipolar disorder, current episode mixed, severe, without psychotic features (HCC-CMS)- Primary Bipolar I disorder, most recent episode (or current) mixed, severe, without mention of psychotic behavior documented in this encounter [employer] Phone: Evaluation note* Diagnosis Generalized anxiety disorder Bipolar disorder in partial remission, most recent episode unspecified type (HCC-CMS) documented in this encounter [employer] Phone: Evaluation note* Diagnosis Bipolar disorder, current episode mixed, severe, without psychotic features (HCC-CMS)- Primary Bipolar I disorder, most recent episode (or current) mixed, severe, without mention of psychotic behavior Generalized anxiety disorder documented in this encounter [facility] Work Phone: evaluation note* Diagnosis Bipolar II disorder (HCC-CMS)- Primary Other bipolar disorders documented in this encounter [facility] Work Phone: Evaluation note* Diagnosis Bipolar disorder, current episode mixed, severe, without psychotic features ([facility]-CMS)- Primary Bipolar I disorder, most recent episode (or current) mixed, severe, without mention of psychotic behavior documented in this encounter [facility] Work Phone: Evaluation note* Diagnosis Intractable chronic migraine without aura and without status migrainosus- Primary Chronic migraine without aura, with intractable migraine, so stated, without mention of status migrainosus [facility]* Diagnosis Generalized anxiety disorder- Primary Obsessive-compulsive disorder, unspecified type documented in this encounter [facility] Work Phone: Evaluation note* Diagnosis Bacterial sinusitis- Primary Unspecified sinusitis (chronic) [facility]* Diagnosis Obsessive-compulsive disorder, unspecified type- Primary Post traumatic stress disorder Posttraumatic stress disorder documented in this encounter [facility] Work Phone: Evaluation note* Diagnosis Generalized anxiety disorder- Primary Bipolar disorder, current episode mixed, mild ([facility]-CMS) Bipolar I disorder, most recent episode (or current) mixed, mild Obsessive-compulsive disorder, unspecified type documented in this encounter [facility] Work Phone: Evaluation note* Diagnosis Post traumatic stress disorder- Primary Posttraumatic stress disorder Generalized anxiety disorder documented in this encounter [facility] Work Phone: Evaluation note* Diagnosis Dysuria- Primary documented in this encounter [facility] note* Diagnosis Generalized anxiety disorder- Primary Obsessive-compulsive disorder, unspecified type documented in this encounter [facility] [employer] Phone: Evaluation note* Diagnosis Intractable chronic migraine without aura and without status migrainosus- Primary Chronic migraine without aura, with intractable migraine, so stated, without mention of status migrainosus documented in this encounter [facility] note* Diagnosis Generalized anxiety disorder Bipolar disorder in partial remission, most recent episode unspecified type (HCC-CMS) documented in this encounter [facility] Work Phone: evaluation note* Diagnosis Obsessive-compulsive disorder, unspecified type- Primary Generalized anxiety disorder documented in this encounter [facility] Work Phone: Evaluation note* Diagnosis Bipolar disorder, current episode mixed, severe, without psychotic features (HCC-CMS)- Primary Bipolar I disorder, most recent episode (or current) mixed, severe, without mention of psychotic behavior Generalized anxiety disorder documented in this encounter [facility] Work Phone: Evaluation note* Diagnosis Bipolar disorder, current episode mixed, severe, without psychotic features (HCC-CMS)- Primary Bipolar I disorder, most recent episode (or current) mixed, severe, without mention of psychotic behavior Generalized anxiety disorder Bipolar disorder in partial remission, most recent episode unspecified type (HCC-CMS) documented in this encounter [facility] [employer] Phone: Evaluation note* Diagnosis Acute otitis externa of both ears, unspecified type- Primary documented in this encounter [facility] note* Diagnosis Recurrent UTI- Primary Urinary tract infection, site not specified Acute otitis externa of right ear, unspecified type documented in this encounter [facility] note* Diagnosis Generalized anxiety disorder- Primary documented in this encounter [facility] Work Phone: Evaluation note* Diagnosis Bipolar disorder, current episode mixed, severe, without psychotic features (HCC-CMS)- Primary Bipolar I disorder, most recent episode (or current) mixed, severe, without mention of psychotic behavior Bipolar disorder in partial remission, most recent episode unspecified type ([facility]-CMS) Generalized anxiety disorder documented in this encounter [facility] [place] Phone: Evaluation note* Diagnosis Intractable chronic migraine without aura and without status migrainosus- Primary Chronic migraine without aura, with intractable migraine, so stated, without mention of status migrainosus documented in this encounter [facility] note* Diagnosis Mixed obsessional thoughts and acts- Primary Generalized anxiety disorder documented in this encounter [facility] Work Phone: Evaluation note* Diagnosis Mixed obsessional thoughts and acts- Primary documented in this encounter [facility] Work Phone: evaluation note* Diagnosis Bipolar disorder, in partial remission, most recent episode depressed ([facility]-CMS)- Primary Bipolar I disorder, most recent episode (or current) depressed, in partial or unspecified remission documented in this encounter [facility] Work Phone: evaluation note* Diagnosis Generalized anxiety disorder- Primary documented in this encounter [facility] Work Phone: evaluation note* Diagnosis Bipolar disorder in partial remission, most recent episode unspecified type ([facility]-CMS)- Primary Generalized anxiety disorder Mixed obsessional thoughts and acts Bipolar disorder, in partial remission, most recent episode depressed ([facility]) Bipolar I disorder, most recent episode (or current) depressed, in partial or unspecified remission documented in this encounter [facility] Work Phone: evaluation note* Diagnosis Mixed obsessional thoughts and acts- Primary documented in this encounter [facility] Work Phone: evaluation note* Diagnosis Generalized anxiety disorder- Primary Mixed obsessional thoughts and acts documented in this encounter [facility] Work Phone: evaluation note* Diagnosis Injury of left hand, initial encounter- Primary Closed nondisplaced fracture of shaft of fifth metacarpal bone of left hand, initial encounter [facility]* Diagnosis Closed nondisplaced fracture of shaft of fifth metacarpal bone of left hand, initial encounter [facility]* Diagnosis Closed nondisplaced fracture of shaft of fifth metacarpal bone of left hand, initial encounter- Primary [facility]* Diagnosis Pain- Primary Generalized pain [facility]* Diagnosis Closed nondisplaced fracture of shaft of fifth metacarpal bone of left hand, initial encounter- Primary [facility]* Diagnosis Intractable chronic migraine without aura and without status migrainosus- Primary Chronic migraine without aura, with intractable migraine, so stated, without mention of status migrainosus [facility]* Diagnosis Bipolar disorder, in partial remission, most recent episode depressed ([facility]-CMS)- Primary Bipolar I disorder, most recent episode (or current) depressed, in partial or unspecified remission documented in this encounter [facility] Work Phone: Evaluation note* Diagnosis Closed nondisplaced fracture of shaft of fifth metacarpal bone of left hand, initial encounter- Primary documented in this encounter [facility] note* Diagnosis Mixed obsessional thoughts and acts- Primary Generalized anxiety disorder documented in this encounter [facility] Work Phone: Evaluation note* Diagnosis Generalized anxiety disorder- Primary Mixed obsessional thoughts and acts documented in this encounter [facility] Work Phone: Evaluation note* Diagnosis Closed nondisplaced fracture of shaft of fifth metacarpal bone of left hand with routine healing, subsequent encounter- Primary documented in this encounter [facility] note* Diagnosis Closed nondisplaced fracture of shaft of fifth metacarpal bone of left hand with routine healing, subsequent encounter- Primary documented in this encounter [facility] note* Diagnosis Pain Generalized pain documented in this encounter [facility] note* Diagnosis Bipolar disorder, in partial remission, most recent episode depressed (HCC-CMS)- Primary Bipolar I disorder, most recent episode (or current) depressed, in partial or unspecified remission documented in this encounter [facility] [employer] Work Phone: evaluation note* Diagnosis Bipolar disorder, in partial remission, most recent episode depressed (HCC-CMS)- Primary Bipolar I disorder, most recent episode (or current) depressed, in partial or unspecified remission Generalized anxiety disorder documented in this encounter [facility] Work Phone: Evaluation note* Diagnosis Closed nondisplaced fracture of shaft of fifth metacarpal bone of left hand with routine healing, subsequent encounter- Primary documented in this encounter [facility] note* Diagnosis Generalized anxiety disorder- Primary Bipolar disorder, in partial remission, most recent episode depressed (HCC-CMS)- Primary Bipolar I disorder, most recent episode (or current) depressed, in partial or unspecified remission documented in this encounter [facility] [employer] Phone: Evaluation note* Diagnosis Bipolar disorder, in partial remission, most recent episode depressed ([facility])- Primary Bipolar I disorder, most recent episode (or current) depressed, in partial or unspecified remission Bipolar disorder in partial remission, most recent episode unspecified type ([facility]) Generalized anxiety disorder documented in this encounter [facility] [employer] Work Phone: Evaluation note* Diagnosis Generalized anxiety disorder- Primary Bipolar disorder, in partial remission, most recent episode depressed (HCC-CMS)- Primary Bipolar I disorder, most recent episode (or current) depressed, in partial or unspecified remission documented in this encounter [employer] Phone: Evaluation note* Diagnosis Bipolar disorder, in partial remission, most recent episode depressed (HCC-CMS)- Primary Bipolar I disorder, most recent episode (or current) depressed, in partial or unspecified remission Bipolar disorder, in partial remission, most recent episode depressed ([facility])- Primary Bipolar I disorder, most recent episode (or current) depressed, in partial or unspecified remission documented in this encounter [employer] Phone: Evaluation note* Diagnosis Sprain of left ankle, unspecified ligament, initial encounter- Primary documented in this encounter [facility] note* Diagnosis Sprain of left ankle, unspecified ligament, initial encounter- Primary Pain in left foot Pain in limb documented in this encounter [facility] note* Diagnosis Generalized anxiety disorder- Primary documented in this encounter [facility] [employer] Work Phone: Evaluation note* Diagnosis Chronic migraine without aura, intractable, without status migrainosus- Primary documented in this encounter [facility] note* Diagnosis Sprain of left ankle, unspecified ligament, subsequent encounter- Primary documented in this encounter [facility] note* Diagnosis Bipolar disorder, in partial remission, most recent episode depressed ([facility])- Primary Bipolar I disorder, most recent episode (or current) depressed, in partial or unspecified remission Generalized anxiety disorder Bipolar disorder in partial remission, most recent episode unspecified type ([facility]) documented in this encounter [facility] [employer] Phone: Evaluation note* Diagnosis Bipolar disorder, in partial remission, most recent episode depressed ([facility])- Primary Bipolar I disorder, most recent episode (or current) depressed, in partial or unspecified remission Generalized anxiety disorder documented in this encounter [facility] [employer] Phone: Evaluation note* Diagnosis Mixed obsessional thoughts and acts- Primary Bipolar disorder, in partial remission, most recent episode depressed (HCC-CMS)- Primary Bipolar I disorder, most recent episode (or current) depressed, in partial or unspecified remission documented in this encounter [employer] Phone: Evaluation note* Diagnosis Bipolar disorder, in partial remission, most recent episode depressed (HCC-CMS)- Primary Bipolar I disorder, most recent episode (or current) depressed, in partial or unspecified remission Generalized anxiety disorder Bipolar disorder, in partial remission, most recent episode depressed (HCC-CMS)- Primary Bipolar I disorder, most recent episode (or current) depressed, in partial or unspecified remission documented in this encounter [employer] Phone: Evaluation note* Diagnosis Bipolar disorder, in partial remission, most recent episode depressed (HCC-CMS)- Primary Bipolar I disorder, most recent episode (or current) depressed, in partial or unspecified remission Bipolar disorder, in partial remission, most recent episode depressed ([facility])- Primary Bipolar I disorder, most recent episode (or current) depressed, in partial or unspecified remission documented in this encounter [employer] Phone: Evaluation note* Diagnosis Bipolar disorder in partial remission, most recent episode unspecified type ([facility])- Primary Generalized anxiety disorder Mixed obsessional thoughts and acts Long-term use of high-risk medication Screening for endocrine, metabolic and immunity disorder documented in this encounter [employer] Phone: Evaluation note* Diagnosis Bipolar disorder, current episode mixed, mild ([facility]) Bipolar I disorder, most recent episode (or current) mixed, mild Generalized anxiety disorder Obsessive-compulsive disorder, unspecified type Generalized anxiety disorder- Primary Bipolar affective disorder, current episode mixed, current episode severity unspecified ([facility]) Generalized anxiety disorder- Primary Bipolar disorder in partial remission, most recent episode unspecified type ([facility]) Generalized anxiety disorder Bipolar disorder in partial remission, most recent episode unspecified type ([facility]) Bipolar disorder, current episode mixed, severe, without psychotic features ([facility])- Primary Bipolar I disorder, most recent episode (or current) mixed, severe, without mention of psychotic behavior Generalized anxiety disorder Bipolar disorder in partial remission, most recent episode unspecified type (HCC-CMS) Bipolar disorder in partial remission, most recent episode unspecified type (HCC-CMS)- Primary Generalized anxiety disorder Mixed obsessional thoughts and acts Bipolar disorder, in partial remission, most recent episode depressed (HCC-CMS) Bipolar I disorder, most recent episode (or current) depressed, in partial or unspecified remission Bipolar disorder, in partial remission, most recent episode depressed (HCC-CMS)- Primary Bipolar I disorder, most recent episode (or current) depressed, in partial or unspecified remission Bipolar disorder in partial remission, most recent episode unspecified type (HCC-CMS) Generalized anxiety disorder Bipolar disorder, in partial remission, most recent episode depressed (HCC-CMS)- Primary Bipolar I disorder, most recent episode (or current) depressed, in partial or unspecified remission Generalized anxiety disorder Bipolar disorder in partial remission, most recent episode unspecified type (HCC-CMS) Bipolar disorder in partial remission, most recent episode unspecified type (HCC-CMS)- Primary Generalized anxiety disorder Mixed obsessional thoughts and acts Long-term use of high-risk medication Screening for endocrine, metabolic and immunity disorder Bipolar disorder, in partial remission, most recent episode depressed (HCC-CMS)- Primary Bipolar I disorder, most recent episode (or current) depressed, in partial or unspecified remission Mixed obsessional thoughts and acts Bipolar disorder, in partial remission, most recent episode depressed (HCC-CMS)- Primary Bipolar I disorder, most recent episode (or current) depressed, in partial or unspecified remission documented in this encounter [facility] [employer] Phone: Evaluation note* Diagnosis Migraine without aura and without status migrainosus, not intractable- Primary Migraine without aura, without mention of intractable migraine without mention of status migrainosus Left ear pain Otalgia, unspecified Eustachian tube disorder, [facility] Bipolar disorder, current episode mixed, mild (HCC-[facility]) Bipolar I disorder, most recent episode (or current) mixed, mild Generalized anxiety disorder Obsessive-compulsive disorder, unspecified type Generalized anxiety disorder- Primary Bipolar affective disorder, current episode mixed, current episode severity unspecified ([facility]) Generalized anxiety disorder- Primary Bipolar disorder in partial remission, most recent episode unspecified type ([facility]) Generalized anxiety disorder Bipolar disorder in partial remission, most recent episode unspecified type ([facility]) Bipolar disorder, current episode mixed, severe, without psychotic features (HCC-CMS)- Primary Bipolar I disorder, most recent episode (or current) mixed, severe, without mention of psychotic behavior Generalized anxiety disorder Bipolar disorder in partial remission, most recent episode unspecified type (HCC-CMS) Bipolar disorder in partial remission, most recent episode unspecified type (HCC-CMS)- Primary Generalized anxiety disorder Mixed obsessional thoughts and acts Bipolar disorder, in partial remission, most recent episode depressed (HCC-CMS) Bipolar I disorder, most recent episode (or current) depressed, in partial or unspecified remission Bipolar disorder, in partial remission, most recent episode depressed (HCC-CMS)- Primary Bipolar I disorder, most recent episode (or current) depressed, in partial or unspecified remission Bipolar disorder in partial remission, most recent episode unspecified type (HCC-CMS) Generalized anxiety disorder Bipolar disorder, in partial remission, most recent episode depressed (HCC-CMS)- Primary Bipolar I disorder, most recent episode (or current) depressed, in partial or unspecified remission Generalized anxiety disorder Bipolar disorder in partial remission, most recent episode unspecified type (HCC-CMS) Bipolar disorder in partial remission, most recent episode unspecified type (HCC-CMS)- Primary Generalized anxiety disorder Mixed obsessional thoughts and acts Long-term use of high-risk medication Screening for endocrine, metabolic and immunity disorder Mixed obsessional thoughts and acts- Primary Bipolar disorder, in partial remission, most recent episode depressed (HCC-CMS)- Primary Bipolar I disorder, most recent episode (or current) depressed, in partial or unspecified remission documented in this encounter [employer] Phone: Evaluation note* Diagnosis Sprain of left ankle, unspecified ligament, initial encounter Pain in left foot Pain in limb [facility] Diagnosis Closed nondisplaced fracture of shaft of fifth metacarpal bone of left hand with routine healing, subsequent encounter [facility] Diagnosis Acute maxillary sinusitis, recurrence not specified- Primary [facility]* Diagnosis Bipolar disorder, current episode mixed, mild (HCC-CMS) Bipolar I disorder, most recent episode (or current) mixed, mild Generalized anxiety disorder Obsessive-compulsive disorder, unspecified type Generalized anxiety disorder- Primary Bipolar affective disorder, current episode mixed, current episode severity unspecified (HCC-CMS) Generalized anxiety disorder- Primary Bipolar disorder in partial remission, most recent episode unspecified type (HCC-CMS) Generalized anxiety disorder Bipolar disorder in partial remission, most recent episode unspecified type (HCC-CMS) Bipolar disorder, current episode mixed, severe, without psychotic features (HCC-CMS)- Primary Bipolar I disorder, most recent episode (or current) mixed, severe, without mention of psychotic behavior Generalized anxiety disorder Bipolar disorder in partial remission, most recent episode unspecified type (HCC-CMS) Bipolar disorder in partial remission, most recent episode unspecified type (HCC-CMS)- Primary Generalized anxiety disorder Mixed obsessional thoughts and acts Bipolar disorder, in partial remission, most recent episode depressed (HCC-CMS) Bipolar I disorder, most recent episode (or current) depressed, in partial or unspecified remission Bipolar disorder, in partial remission, most recent episode depressed (HCC-CMS)- Primary Bipolar I disorder, most recent episode (or current) depressed, in partial or unspecified remission Bipolar disorder in partial remission, most recent episode unspecified type ([facility]) Generalized anxiety disorder Bipolar disorder, in partial remission, most recent episode depressed ([facility])- Primary Bipolar I disorder, most recent episode (or current) depressed, in partial or unspecified remission Generalized anxiety disorder Bipolar disorder in partial remission, most recent episode unspecified type (HCC-CMS) Bipolar disorder in partial remission, most recent episode unspecified type ([facility])- Primary Generalized anxiety disorder Mixed obsessional thoughts and acts Long-term use of high-risk medication Screening for endocrine, metabolic and immunity disorder Generalized anxiety disorder- Primary documented in this encounter [facility] [employer] Phone: Evaluation note* Diagnosis Vaginal irritation- Primary Unspecified noninflammatory disorder of vagina [facility] Diagnosis Itching in the vaginal area- Primary Pruritus of genital organs [facility]* Diagnosis BV (bacterial vaginosis)- Primary Vaginitis and vulvovaginitis, unspecified Candidal vaginitis Candidiasis of vulva and vagina [facility]* Diagnosis Bipolar disorder, current episode mixed, mild ([facility]) Bipolar I disorder, most recent episode (or current) mixed, mild Generalized anxiety disorder Obsessive-compulsive disorder, unspecified type Generalized anxiety disorder- Primary Bipolar affective disorder, current episode mixed, current episode severity unspecified (HCC-CMS) Generalized anxiety disorder- Primary Bipolar disorder in partial remission, most recent episode unspecified type (HCC-CMS) Generalized anxiety disorder Bipolar disorder in partial remission, most recent episode unspecified type (HCC-CMS) Bipolar disorder, current episode mixed, severe, without psychotic features (HCC-CMS)- Primary Bipolar I disorder, most recent episode (or current) mixed, severe, without mention of psychotic behavior Generalized anxiety disorder Bipolar disorder in partial remission, most recent episode unspecified type (HCC-CMS) Bipolar disorder in partial remission, most recent episode unspecified type (HCC-CMS)- Primary Generalized anxiety disorder Mixed obsessional thoughts and acts Bipolar disorder, in partial remission, most recent episode depressed (HCC-CMS) Bipolar I disorder, most recent episode (or current) depressed, in partial or unspecified remission Bipolar disorder, in partial remission, most recent episode depressed (HCC-CMS)- Primary Bipolar I disorder, most recent episode (or current) depressed, in partial or unspecified remission Bipolar disorder in partial remission, most recent episode unspecified type (HCC-CMS) Generalized anxiety disorder Bipolar disorder, in partial remission, most recent episode depressed (HCC-CMS)- Primary Bipolar I disorder, most recent episode (or current) depressed, in partial or unspecified remission Generalized anxiety disorder Bipolar disorder in partial remission, most recent episode unspecified type (HCC-CMS) Bipolar disorder in partial remission, most recent episode unspecified type (HCC-CMS)- Primary Generalized anxiety disorder Mixed obsessional thoughts and acts Long-term use of high-risk medication Screening for endocrine, metabolic and immunity disorder Generalized anxiety disorder- Primary Bipolar disorder, in partial remission, most recent episode depressed (HCC-CMS)- Primary Bipolar I disorder, most recent episode (or current) depressed, in partial or unspecified remission documented in this encounter [employer] Phone: Evaluation note* Diagnosis Hand injury, left, initial encounter- Primary [facility]* Diagnosis Chronic migraine without aura, intractable, without status migrainosus- Primary [facility]* Diagnosis Bipolar disorder, current episode mixed, mild (HCC-CMS) Bipolar I disorder, most recent episode (or current) mixed, mild Generalized anxiety disorder Obsessive-compulsive disorder, unspecified type Generalized anxiety disorder- Primary Bipolar affective disorder, current episode mixed, current episode severity unspecified (HCC-CMS) Generalized anxiety disorder- Primary Bipolar disorder in partial remission, most recent episode unspecified type (HCC-CMS) Generalized anxiety disorder Bipolar disorder in partial remission, most recent episode unspecified type (HCC-CMS) Bipolar disorder, current episode mixed, severe, without psychotic features (HCC-CMS)- Primary Bipolar I disorder, most recent episode (or current) mixed, severe, without mention of psychotic behavior Generalized anxiety disorder Bipolar disorder in partial remission, most recent episode unspecified type (HCC-CMS) Bipolar disorder in partial remission, most recent episode unspecified type (HCC-CMS)- Primary Generalized anxiety disorder Mixed obsessional thoughts and acts Bipolar disorder, in partial remission, most recent episode depressed (HCC-CMS) Bipolar I disorder, most recent episode (or current) depressed, in partial or unspecified remission Bipolar disorder, in partial remission, most recent episode depressed (HCC-CMS)- Primary Bipolar I disorder, most recent episode (or current) depressed, in partial or unspecified remission Bipolar disorder in partial remission, most recent episode unspecified type (HCC-CMS) Generalized anxiety disorder Bipolar disorder, in partial remission, most recent episode depressed (HCC-CMS)- Primary Bipolar I disorder, most recent episode (or current) depressed, in partial or unspecified remission Generalized anxiety disorder Bipolar disorder in partial remission, most recent episode unspecified type (HCC-CMS) Bipolar disorder in partial remission, most recent episode unspecified type (HCC-CMS)- Primary Generalized anxiety disorder Mixed obsessional thoughts and acts Long-term use of high-risk medication Screening for endocrine, metabolic and immunity disorder Bipolar disorder in partial remission, most recent episode unspecified type (HCC-CMS)- Primary Generalized anxiety disorder documented in this encounter [facility] [employer] Work Phone: Evaluation note* Diagnosis Bipolar disorder, current episode mixed, mild (HCC-CMS) Bipolar I disorder, most recent episode (or current) mixed, mild Generalized anxiety disorder Obsessive-compulsive disorder, unspecified type Generalized anxiety disorder- Primary Bipolar affective disorder, current episode mixed, current episode severity unspecified (HCC-CMS) Generalized anxiety disorder- Primary Bipolar disorder in partial remission, most recent episode unspecified type (HCC-CMS) Generalized anxiety disorder Bipolar disorder in partial remission, most recent episode unspecified type (HCC-CMS) Bipolar disorder, current episode mixed, severe, without psychotic features (HCC-CMS)- Primary Bipolar I disorder, most recent episode (or current) mixed, severe, without mention of psychotic behavior Generalized anxiety disorder Bipolar disorder in partial remission, most recent episode unspecified type (HCC-CMS) Bipolar disorder in partial remission, most recent episode unspecified type (HCC-CMS)- Primary Generalized anxiety disorder Mixed obsessional thoughts and acts Bipolar disorder, in partial remission, most recent episode depressed (HCC-CMS) Bipolar I disorder, most recent episode (or current) depressed, in partial or unspecified remission Bipolar disorder, in partial remission, most recent episode depressed (HCC-CMS)- Primary Bipolar I disorder, most recent episode (or current) depressed, in partial or unspecified remission Bipolar disorder in partial remission, most recent episode unspecified type (HCC-CMS) Generalized anxiety disorder Bipolar disorder, in partial remission, most recent episode depressed (HCC-CMS)- Primary Bipolar I disorder, most recent episode (or current) depressed, in partial or unspecified remission Generalized anxiety disorder Bipolar disorder in partial remission, most recent episode unspecified type (HCC-CMS) Bipolar disorder in partial remission, most recent episode unspecified type (HCC-CMS)- Primary Generalized anxiety disorder Mixed obsessional thoughts and acts Long-term use of high-risk medication Screening for endocrine, metabolic and immunity disorder Mixed obsessional thoughts and acts- Primary documented in this encounter [employer] Phone: Evaluation note* Diagnosis Vaginal discharge- Primary Leukorrhea, not specified as infective [facility] Diagnosis Bipolar disorder, current episode mixed, mild (HCC-CMS) Bipolar I disorder, most recent episode (or current) mixed, mild Generalized anxiety disorder Obsessive-compulsive disorder, unspecified type Generalized anxiety disorder- Primary Bipolar affective disorder, current episode mixed, current episode severity unspecified (HCC-CMS) Generalized anxiety disorder- Primary Bipolar disorder in partial remission, most recent episode unspecified type (HCC-CMS) Generalized anxiety disorder Bipolar disorder in partial remission, most recent episode unspecified type (HCC-CMS) Bipolar disorder, current episode mixed, severe, without psychotic features (HCC-CMS)- Primary Bipolar I disorder, most recent episode (or current) mixed, severe, without mention of psychotic behavior Generalized anxiety disorder Bipolar disorder in partial remission, most recent episode unspecified type (HCC-CMS) Bipolar disorder in partial remission, most recent episode unspecified type (HCC-CMS)- Primary Generalized anxiety disorder Mixed obsessional thoughts and acts Bipolar disorder, in partial remission, most recent episode depressed (HCC-CMS) Bipolar I disorder, most recent episode (or current) depressed, in partial or unspecified remission Bipolar disorder, in partial remission, most recent episode depressed (HCC-CMS)- Primary Bipolar I disorder, most recent episode (or current) depressed, in partial or unspecified remission Bipolar disorder in partial remission, most recent episode unspecified type (HCC-CMS) Generalized anxiety disorder Bipolar disorder, in partial remission, most recent episode depressed (HCC-CMS)- Primary Bipolar I disorder, most recent episode (or current) depressed, in partial or unspecified remission Generalized anxiety disorder Bipolar disorder in partial remission, most recent episode unspecified type (HCC-CMS) Bipolar disorder in partial remission, most recent episode unspecified type (HCC-CMS)- Primary Generalized anxiety disorder Mixed obsessional thoughts and acts Long-term use of high-risk medication Screening for endocrine, metabolic and immunity disorder Mixed obsessional thoughts and acts- Primary Bipolar disorder, in partial remission, most recent episode depressed (HCC-CMS)- Primary Bipolar I disorder, most recent episode (or current) depressed, in partial or unspecified remission documented in this encounter [facility] [employer] Phone: Evaluation note* Diagnosis Bipolar disorder, current episode mixed, mild (HCC-CMS) Bipolar I disorder, most recent episode (or current) mixed, mild Generalized anxiety disorder Obsessive-compulsive disorder, unspecified type Generalized anxiety disorder- Primary Bipolar affective disorder, current episode mixed, current episode severity unspecified (HCC-CMS) Generalized anxiety disorder- Primary Bipolar disorder in partial remission, most recent episode unspecified type (HCC-CMS) Generalized anxiety disorder Bipolar disorder in partial remission, most recent episode unspecified type (HCC-CMS) Bipolar disorder, current episode mixed, severe, without psychotic features (HCC-CMS)- Primary Bipolar I disorder, most recent episode (or current) mixed, severe, without mention of psychotic behavior Generalized anxiety disorder Bipolar disorder in partial remission, most recent episode unspecified type (HCC-CMS) Bipolar disorder in partial remission, most recent episode unspecified type (HCC-CMS)- Primary Generalized anxiety disorder Mixed obsessional thoughts and acts Bipolar disorder, in partial remission, most recent episode depressed (HCC-CMS) Bipolar I disorder, most recent episode (or current) depressed, in partial or unspecified remission Bipolar disorder, in partial remission, most recent episode depressed (HCC-CMS)- Primary Bipolar I disorder, most recent episode (or current) depressed, in partial or unspecified remission Bipolar disorder in partial remission, most recent episode unspecified type (HCC-CMS) Generalized anxiety disorder Bipolar disorder, in partial remission, most recent episode depressed (HCC-CMS)- Primary Bipolar I disorder, most recent episode (or current) depressed, in partial or unspecified remission Generalized anxiety disorder Bipolar disorder in partial remission, most recent episode unspecified type (HCC-CMS) Bipolar disorder in partial remission, most recent episode unspecified type (HCC-CMS)- Primary Generalized anxiety disorder Mixed obsessional thoughts and acts Long-term use of high-risk medication Screening for endocrine, metabolic and immunity disorder Generalized anxiety disorder- Primary Bipolar disorder, in partial remission, most recent episode depressed (HCC-CMS)- Primary Bipolar I disorder, most recent episode (or current) depressed, in partial or unspecified remission documented in this encounter [employer] Phone: Evaluation note* Diagnosis Chronic migraine without aura, intractable, without status migrainosus- [facility] Bipolar disorder, current episode mixed, mild (HCC-CMS) Bipolar I disorder, most recent episode (or current) mixed, mild Generalized anxiety disorder Obsessive-compulsive disorder, unspecified type Generalized anxiety disorder- Primary Bipolar affective disorder, current episode mixed, current episode severity unspecified (HCC-CMS) Generalized anxiety disorder- Primary Bipolar disorder in partial remission, most recent episode unspecified type (HCC-CMS) Generalized anxiety disorder Bipolar disorder in partial remission, most recent episode unspecified type (HCC-CMS) Bipolar disorder, current episode mixed, severe, without psychotic features (HCC-CMS)- Primary Bipolar I disorder, most recent episode (or current) mixed, severe, without mention of psychotic behavior Generalized anxiety disorder Bipolar disorder in partial remission, most recent episode unspecified type (HCC-CMS) Bipolar disorder in partial remission, most recent episode unspecified type (HCC-CMS)- Primary Generalized anxiety disorder Mixed obsessional thoughts and acts Bipolar disorder, in partial remission, most recent episode depressed (HCC-CMS) Bipolar I disorder, most recent episode (or current) depressed, in partial or unspecified remission Bipolar disorder, in partial remission, most recent episode depressed (HCC-CMS)- Primary Bipolar I disorder, most recent episode (or current) depressed, in partial or unspecified remission Bipolar disorder in partial remission, most recent episode unspecified type (HCC-CMS) Generalized anxiety disorder Bipolar disorder, in partial remission, most recent episode depressed (HCC-CMS)- Primary Bipolar I disorder, most recent episode (or current) depressed, in partial or unspecified remission Generalized anxiety disorder Bipolar disorder in partial remission, most recent episode unspecified type (HCC-CMS) Bipolar disorder in partial remission, most recent episode unspecified type (HCC-CMS)- Primary Generalized anxiety disorder Mixed obsessional thoughts and acts Long-term use of high-risk medication Screening for endocrine, metabolic and immunity disorder Bipolar disorder in full remission, most recent episode unspecified type (HCC-CMS)- Primary Generalized anxiety disorder Other obsessive-compulsive disorders documented in this encounter [facility] [employer] Phone: Evaluation note* Diagnosis Bipolar disorder, current episode mixed, mild (HCC-CMS) Bipolar I disorder, most recent episode (or current) mixed, mild Generalized anxiety disorder Obsessive-compulsive disorder, unspecified type Generalized anxiety disorder- Primary Bipolar affective disorder, current episode mixed, current episode severity unspecified (HCC-CMS) Generalized anxiety disorder- Primary Bipolar disorder in partial remission, most recent episode unspecified type (HCC-CMS) Generalized anxiety disorder Bipolar disorder in partial remission, most recent episode unspecified type (HCC-CMS) Bipolar disorder, current episode mixed, severe, without psychotic features (HCC-CMS)- Primary Bipolar I disorder, most recent episode (or current) mixed, severe, without mention of psychotic behavior Generalized anxiety disorder Bipolar disorder in partial remission, most recent episode unspecified type (HCC-CMS) Bipolar disorder in partial remission, most recent episode unspecified type (HCC-CMS)- Primary Generalized anxiety disorder Mixed obsessional thoughts and acts Bipolar disorder, in partial remission, most recent episode depressed (HCC-CMS) Bipolar I disorder, most recent episode (or current) depressed, in partial or unspecified remission Bipolar disorder, in partial remission, most recent episode depressed (HCC-CMS)- Primary Bipolar I disorder, most recent episode (or current) depressed, in partial or unspecified remission Bipolar disorder in partial remission, most recent episode unspecified type (HCC-CMS) Generalized anxiety disorder Bipolar disorder, in partial remission, most recent episode depressed (HCC-CMS)- Primary Bipolar I disorder, most recent episode (or current) depressed, in partial or unspecified remission Generalized anxiety disorder Bipolar disorder in partial remission, most recent episode unspecified type (HCC-CMS) Bipolar disorder in partial remission, most recent episode unspecified type (HCC-CMS)- Primary Generalized anxiety disorder Mixed obsessional thoughts and acts Long-term use of high-risk medication Screening for endocrine, metabolic and immunity disorder Bipolar disorder in full remission, most recent episode unspecified type (HCC-CMS)- Primary Generalized anxiety disorder Other obsessive-compulsive disorders Bipolar disorder in full remission, most recent episode unspecified type (HCC-CMS)- Primary documented in this encounter [facility] [employer] Phone: Evaluation note* Diagnosis Bipolar disorder, current episode mixed, mild (HCC-CMS) Bipolar I disorder, most recent episode (or current) mixed, mild Generalized anxiety disorder Obsessive-compulsive disorder, unspecified type Generalized anxiety disorder- Primary Bipolar affective disorder, current episode mixed, current episode severity unspecified (HCC-CMS) Generalized anxiety disorder- Primary Bipolar disorder in partial remission, most recent episode unspecified type (HCC-CMS) Generalized anxiety disorder Bipolar disorder in partial remission, most recent episode unspecified type (HCC-CMS) Bipolar disorder, current episode mixed, severe, without psychotic features (HCC-CMS)- Primary Bipolar I disorder, most recent episode (or current) mixed, severe, without mention of psychotic behavior Generalized anxiety disorder Bipolar disorder in partial remission, most recent episode unspecified type (HCC-CMS) Bipolar disorder in partial remission, most recent episode unspecified type (HCC-CMS)- Primary Generalized anxiety disorder Mixed obsessional thoughts and acts Bipolar disorder, in partial remission, most recent episode depressed (HCC-CMS) Bipolar I disorder, most recent episode (or current) depressed, in partial or unspecified remission Bipolar disorder, in partial remission, most recent episode depressed (HCC-CMS)- Primary Bipolar I disorder, most recent episode (or current) depressed, in partial or unspecified remission Bipolar disorder in partial remission, most recent episode unspecified type (HCC-CMS) Generalized anxiety disorder Bipolar disorder, in partial remission, most recent episode depressed (HCC-CMS)- Primary Bipolar I disorder, most recent episode (or current) depressed, in partial or unspecified remission Generalized anxiety disorder Bipolar disorder in partial remission, most recent episode unspecified type (HCC-CMS) Bipolar disorder in partial remission, most recent episode unspecified type (HCC-CMS)- Primary Generalized anxiety disorder Mixed obsessional thoughts and acts Long-term use of high-risk medication Screening for endocrine, metabolic and immunity disorder Bipolar disorder in full remission, most recent episode unspecified type (HCC-CMS)- Primary Generalized anxiety disorder Other obsessive-compulsive disorders Generalized anxiety disorder- Primary Bipolar disorder in full remission, most recent episode unspecified type (HCC-CMS) documented in this encounter [facility] [employer] Phone: Evaluation note* Diagnosis Bipolar disorder, current episode mixed, mild (HCC-CMS) Bipolar I disorder, most recent episode (or current) mixed, mild Generalized anxiety disorder Obsessive-compulsive disorder, unspecified type Generalized anxiety disorder- Primary Bipolar affective disorder, current episode mixed, current episode severity unspecified (HCC-CMS) Generalized anxiety disorder- Primary Bipolar disorder in partial remission, most recent episode unspecified type (HCC-CMS) Generalized anxiety disorder Bipolar disorder in partial remission, most recent episode unspecified type (HCC-CMS) Bipolar disorder, current episode mixed, severe, without psychotic features (HCC-CMS)- Primary Bipolar I disorder, most recent episode (or current) mixed, severe, without mention of psychotic behavior Generalized anxiety disorder Bipolar disorder in partial remission, most recent episode unspecified type (HCC-CMS) Bipolar disorder in partial remission, most recent episode unspecified type (HCC-CMS)- Primary Generalized anxiety disorder Mixed obsessional thoughts and acts Bipolar disorder, in partial remission, most recent episode depressed (HCC-CMS) Bipolar I disorder, most recent episode (or current) depressed, in partial or unspecified remission Bipolar disorder, in partial remission, most recent episode depressed (HCC-CMS)- Primary Bipolar I disorder, most recent episode (or current) depressed, in partial or unspecified remission Bipolar disorder in partial remission, most recent episode unspecified type (HCC-CMS) Generalized anxiety disorder Bipolar disorder, in partial remission, most recent episode depressed (HCC-CMS)- Primary Bipolar I disorder, most recent episode (or current) depressed, in partial or unspecified remission Generalized anxiety disorder Bipolar disorder in partial remission, most recent episode unspecified type (HCC-CMS) Bipolar disorder in partial remission, most recent episode unspecified type (HCC-CMS)- Primary Generalized anxiety disorder Mixed obsessional thoughts and acts Long-term use of high-risk medication Screening for endocrine, metabolic and immunity disorder Bipolar disorder in full remission, most recent episode unspecified type (HCC-CMS)- Primary Generalized anxiety disorder Other obsessive-compulsive disorders Generalized anxiety disorder- Primary Mixed obsessional thoughts and acts documented in this encounter [facility] [employer] Phone: Evaluation note* Diagnosis Bipolar disorder, current episode mixed, mild (HCC-CMS) Bipolar I disorder, most recent episode (or current) mixed, mild Generalized anxiety disorder Obsessive-compulsive disorder, unspecified type Generalized anxiety disorder- Primary Bipolar affective disorder, current episode mixed, current episode severity unspecified (HCC-CMS) Generalized anxiety disorder- Primary Bipolar disorder in partial remission, most recent episode unspecified type (HCC-CMS) Generalized anxiety disorder Bipolar disorder in partial remission, most recent episode unspecified type (HCC-CMS) Bipolar disorder, current episode mixed, severe, without psychotic features (HCC-CMS)- Primary Bipolar I disorder, most recent episode (or current) mixed, severe, without mention of psychotic behavior Generalized anxiety disorder Bipolar disorder in partial remission, most recent episode unspecified type (HCC-CMS) Bipolar disorder in partial remission, most recent episode unspecified type (HCC-CMS)- Primary Generalized anxiety disorder Mixed obsessional thoughts and acts Bipolar disorder, in partial remission, most recent episode depressed (HCC-CMS) Bipolar I disorder, most recent episode (or current) depressed, in partial or unspecified remission Bipolar disorder, in partial remission, most recent episode depressed (HCC-CMS)- Primary Bipolar I disorder, most recent episode (or current) depressed, in partial or unspecified remission Bipolar disorder in partial remission, most recent episode unspecified type (HCC-CMS) Generalized anxiety disorder Bipolar disorder, in partial remission, most recent episode depressed (HCC-CMS)- Primary Bipolar I disorder, most recent episode (or current) depressed, in partial or unspecified remission Generalized anxiety disorder Bipolar disorder in partial remission, most recent episode unspecified type (HCC-CMS) Bipolar disorder in partial remission, most recent episode unspecified type (HCC-CMS)- Primary Generalized anxiety disorder Mixed obsessional thoughts and acts Long-term use of high-risk medication Screening for endocrine, metabolic and immunity disorder Bipolar disorder in full remission, most recent episode unspecified type ([facility]-CMS)- Primary Generalized anxiety disorder Other obsessive-compulsive disorders Generalized anxiety disorder- Primary documented in this encounter [employer] Phone: Evaluation note* Diagnosis Nausea Nausea alone [facility] Diagnosis Bipolar disorder, current episode mixed, mild (HCC-CMS) Bipolar I disorder, most recent episode (or current) mixed, mild Generalized anxiety disorder Obsessive-compulsive disorder, unspecified type Generalized anxiety disorder- Primary Bipolar affective disorder, current episode mixed, current episode severity unspecified (HCC-CMS) Generalized anxiety disorder- Primary Bipolar disorder in partial remission, most recent episode unspecified type (HCC-CMS) Generalized anxiety disorder Bipolar disorder in partial remission, most recent episode unspecified type (HCC-CMS) Bipolar disorder, current episode mixed, severe, without psychotic features (HCC-CMS)- Primary Bipolar I disorder, most recent episode (or current) mixed, severe, without mention of psychotic behavior Generalized anxiety disorder Bipolar disorder in partial remission, most recent episode unspecified type (HCC-CMS) Bipolar disorder in partial remission, most recent episode unspecified type (HCC-CMS)- Primary Generalized anxiety disorder Mixed obsessional thoughts and acts Bipolar disorder, in partial remission, most recent episode depressed (HCC-CMS) Bipolar I disorder, most recent episode (or current) depressed, in partial or unspecified remission Bipolar disorder, in partial remission, most recent episode depressed (HCC-CMS)- Primary Bipolar I disorder, most recent episode (or current) depressed, in partial or unspecified remission Bipolar disorder in partial remission, most recent episode unspecified type ([facility]-CMS) Generalized anxiety disorder Bipolar disorder, in partial remission, most recent episode depressed ([facility]-CMS)- Primary Bipolar I disorder, most recent episode (or current) depressed, in partial or unspecified remission Generalized anxiety disorder Bipolar disorder in partial remission, most recent episode unspecified type (HCC-CMS) Bipolar disorder in partial remission, most recent episode unspecified type ([facility]-CMS)- Primary Generalized anxiety disorder Mixed obsessional thoughts and acts Long-term use of high-risk medication Screening for endocrine, metabolic and immunity disorder Bipolar disorder in full remission, most recent episode unspecified type ([facility]-CMS)- Primary Generalized anxiety disorder Other obsessive-compulsive disorders Generalized anxiety disorder- Primary documented in this encounter [facility] [employer] Phone: Evaluation note* Diagnosis Breast lesion- Primary Unspecified breast disorder Breast abscess Inflammatory disease of breast [facility]* Diagnosis Breast lesion- Primary Unspecified breast disorder documented in this encounter [facility] note* Diagnosis Nipple discharge- Primary Other sign and symptom in breast Family history of breast cancer Family history of malignant neoplasm of breast Family history of ovarian cancer Family history of malignant neoplasm of ovary [facility] Diagnosis Cellulitis of breast- Primary Inflammatory disease of breast [facility]* Diagnosis Breast lesion Unspecified breast disorder [facility]* Diagnosis Bipolar disorder, current episode mixed, mild (HCC-CMS) Bipolar I disorder, most recent episode (or current) mixed, mild Generalized anxiety disorder Obsessive-compulsive disorder, unspecified type Generalized anxiety disorder- Primary Bipolar affective disorder, current episode mixed, current episode severity unspecified (HCC-CMS) Generalized anxiety disorder- Primary Bipolar disorder in partial remission, most recent episode unspecified type (HCC-CMS) Generalized anxiety disorder Bipolar disorder in partial remission, most recent episode unspecified type (HCC-CMS) Bipolar disorder, current episode mixed, severe, without psychotic features (HCC-CMS)- Primary Bipolar I disorder, most recent episode (or current) mixed, severe, without mention of psychotic behavior Generalized anxiety disorder Bipolar disorder in partial remission, most recent episode unspecified type (HCC-CMS) Bipolar disorder in partial remission, most recent episode unspecified type (HCC-CMS)- Primary Generalized anxiety disorder Mixed obsessional thoughts and acts Bipolar disorder, in partial remission, most recent episode depressed (HCC-CMS) Bipolar I disorder, most recent episode (or current) depressed, in partial or unspecified remission Bipolar disorder, in partial remission, most recent episode depressed (HCC-CMS)- Primary Bipolar I disorder, most recent episode (or current) depressed, in partial or unspecified remission Bipolar disorder in partial remission, most recent episode unspecified type ([facility]-CMS) Generalized anxiety disorder Bipolar disorder, in partial remission, most recent episode depressed (HCC-CMS)- Primary Bipolar I disorder, most recent episode (or current) depressed, in partial or unspecified remission Generalized anxiety disorder Bipolar disorder in partial remission, most recent episode unspecified type (HCC-CMS) Bipolar disorder in partial remission, most recent episode unspecified type (HCC-CMS)- Primary Generalized anxiety disorder Mixed obsessional thoughts and acts Long-term use of high-risk medication Screening for endocrine, metabolic and immunity disorder Bipolar disorder in full remission, most recent episode unspecified type (HCC-CMS)- Primary Generalized anxiety disorder Other obsessive-compulsive disorders Bipolar disorder in full remission, most recent episode unspecified type (HCC-CMS)- Primary Generalized anxiety disorder with panic attacks documented in this encounter [employer] Phone: Evaluation note* Diagnosis Bipolar disorder, current episode mixed, mild (HCC-CMS) Bipolar I disorder, most recent episode (or current) mixed, mild Generalized anxiety disorder Obsessive-compulsive disorder, unspecified type Generalized anxiety disorder- Primary Bipolar affective disorder, current episode mixed, current episode severity unspecified (HCC-CMS) Generalized anxiety disorder- Primary Bipolar disorder in partial remission, most recent episode unspecified type (HCC-CMS) Generalized anxiety disorder Bipolar disorder in partial remission, most recent episode unspecified type (HCC-CMS) Bipolar disorder, current episode mixed, severe, without psychotic features (HCC-CMS)- Primary Bipolar I disorder, most recent episode (or current) mixed, severe, without mention of psychotic behavior Generalized anxiety disorder Bipolar disorder in partial remission, most recent episode unspecified type (HCC-CMS) Bipolar disorder in partial remission, most recent episode unspecified type (HCC-CMS)- Primary Generalized anxiety disorder Mixed obsessional thoughts and acts Bipolar disorder, in partial remission, most recent episode depressed (HCC-CMS) Bipolar I disorder, most recent episode (or current) depressed, in partial or unspecified remission Bipolar disorder, in partial remission, most recent episode depressed (HCC-CMS)- Primary Bipolar I disorder, most recent episode (or current) depressed, in partial or unspecified remission Bipolar disorder in partial remission, most recent episode unspecified type (HCC-CMS) Generalized anxiety disorder Bipolar disorder, in partial remission, most recent episode depressed (HCC-CMS)- Primary Bipolar I disorder, most recent episode (or current) depressed, in partial or unspecified remission Generalized anxiety disorder Bipolar disorder in partial remission, most recent episode unspecified type (HCC-CMS) Bipolar disorder in partial remission, most recent episode unspecified type (HCC-CMS)- Primary Generalized anxiety disorder Mixed obsessional thoughts and acts Long-term use of high-risk medication Screening for endocrine, metabolic and immunity disorder Bipolar disorder in full remission, most recent episode unspecified type (HCC-CMS)- Primary Generalized anxiety disorder Other obsessive-compulsive disorders Bipolar disorder in full remission, most recent episode unspecified type (HCC-CMS)- Primary Generalized anxiety disorder with panic attacks Post traumatic stress disorder- Primary Posttraumatic stress disorder documented in this encounter [employer] Phone: Evaluation note* Diagnosis Bipolar disorder, current episode mixed, mild (HCC-CMS) Bipolar I disorder, most recent episode (or current) mixed, mild Generalized anxiety disorder Obsessive-compulsive disorder, unspecified type Generalized anxiety disorder- Primary Bipolar affective disorder, current episode mixed, current episode severity unspecified (HCC-CMS) Generalized anxiety disorder- Primary Bipolar disorder in partial remission, most recent episode unspecified type (HCC-CMS) Generalized anxiety disorder Bipolar disorder in partial remission, most recent episode unspecified type (HCC-CMS) Bipolar disorder, current episode mixed, severe, without psychotic features (HCC-CMS)- Primary Bipolar I disorder, most recent episode (or current) mixed, severe, without mention of psychotic behavior Generalized anxiety disorder Bipolar disorder in partial remission, most recent episode unspecified type (HCC-CMS) Bipolar disorder in partial remission, most recent episode unspecified type (HCC-CMS)- Primary Generalized anxiety disorder Mixed obsessional thoughts and acts Bipolar disorder, in partial remission, most recent episode depressed (HCC-CMS) Bipolar I disorder, most recent episode (or current) depressed, in partial or unspecified remission Bipolar disorder, in partial remission, most recent episode depressed (HCC-CMS)- Primary Bipolar I disorder, most recent episode (or current) depressed, in partial or unspecified remission Bipolar disorder in partial remission, most recent episode unspecified type (HCC-CMS) Generalized anxiety disorder Bipolar disorder, in partial remission, most recent episode depressed (HCC-CMS)- Primary Bipolar I disorder, most recent episode (or current) depressed, in partial or unspecified remission Generalized anxiety disorder Bipolar disorder in partial remission, most recent episode unspecified type (HCC-CMS) Bipolar disorder in partial remission, most recent episode unspecified type (HCC-CMS)- Primary Generalized anxiety disorder Mixed obsessional thoughts and acts Long-term use of high-risk medication Screening for endocrine, metabolic and immunity disorder Bipolar disorder in full remission, most recent episode unspecified type (HCC-CMS)- Primary Generalized anxiety disorder Other obsessive-compulsive disorders Bipolar disorder in full remission, most recent episode unspecified type (HCC-CMS)- Primary Generalized anxiety disorder with panic attacks Bipolar disorder in full remission, most recent episode unspecified type (HCC-CMS)- Primary documented in this encounter [facility] [employer] Work Phone: Evaluation note* Diagnosis Bipolar disorder, current episode mixed, mild (HCC-CMS) Bipolar I disorder, most recent episode (or current) mixed, mild Generalized anxiety disorder Obsessive-compulsive disorder, unspecified type Generalized anxiety disorder- Primary Bipolar affective disorder, current episode mixed, current episode severity unspecified (HCC-CMS) Generalized anxiety disorder- Primary Bipolar disorder in partial remission, most recent episode unspecified type (HCC-CMS) Generalized anxiety disorder Bipolar disorder in partial remission, most recent episode unspecified type (HCC-CMS) Bipolar disorder, current episode mixed, severe, without psychotic features (HCC-CMS)- Primary Bipolar I disorder, most recent episode (or current) mixed, severe, without mention of psychotic behavior Generalized anxiety disorder Bipolar disorder in partial remission, most recent episode unspecified type (HCC-CMS) Bipolar disorder in partial remission, most recent episode unspecified type (HCC-CMS)- Primary Generalized anxiety disorder Mixed obsessional thoughts and acts Bipolar disorder, in partial remission, most recent episode depressed (HCC-CMS) Bipolar I disorder, most recent episode (or current) depressed, in partial or unspecified remission Bipolar disorder, in partial remission, most recent episode depressed (HCC-CMS)- Primary Bipolar I disorder, most recent episode (or current) depressed, in partial or unspecified remission Bipolar disorder in partial remission, most recent episode unspecified type (HCC-CMS) Generalized anxiety disorder Bipolar disorder, in partial remission, most recent episode depressed (HCC-CMS)- Primary Bipolar I disorder, most recent episode (or current) depressed, in partial or unspecified remission Generalized anxiety disorder Bipolar disorder in partial remission, most recent episode unspecified type (HCC-CMS) Bipolar disorder in partial remission, most recent episode unspecified type (HCC-CMS)- Primary Generalized anxiety disorder Mixed obsessional thoughts and acts Long-term use of high-risk medication Screening for endocrine, metabolic and immunity disorder Bipolar disorder in full remission, most recent episode unspecified type (HCC-CMS)- Primary Generalized anxiety disorder Other obsessive-compulsive disorders Bipolar disorder in full remission, most recent episode unspecified type (HCC-CMS)- Primary Generalized anxiety disorder with panic attacks Mixed obsessional thoughts and acts- Primary Bipolar disorder in full remission, most recent episode unspecified type (HCC-CMS)- Primary Bipolar disorder in full remission, most recent episode unspecified type (HCC-CMS)- Primary documented in this encounter [facility] [employer] Work Phone: Evaluation note* Diagnosis Bipolar disorder, current episode mixed, mild (HCC-CMS) Bipolar I disorder, most recent episode (or current) mixed, mild Generalized anxiety disorder Obsessive-compulsive disorder, unspecified type Generalized anxiety disorder- Primary Bipolar affective disorder, current episode mixed, current episode severity unspecified (HCC-CMS) Generalized anxiety disorder- Primary Bipolar disorder in partial remission, most recent episode unspecified type (HCC-CMS) Generalized anxiety disorder Bipolar disorder in partial remission, most recent episode unspecified type (HCC-CMS) Bipolar disorder, current episode mixed, severe, without psychotic features (HCC-CMS)- Primary Bipolar I disorder, most recent episode (or current) mixed, severe, without mention of psychotic behavior Generalized anxiety disorder Bipolar disorder in partial remission, most recent episode unspecified type (HCC-CMS) Bipolar disorder in partial remission, most recent episode unspecified type (HCC-CMS)- Primary Generalized anxiety disorder Mixed obsessional thoughts and acts Bipolar disorder, in partial remission, most recent episode depressed (HCC-CMS) Bipolar I disorder, most recent episode (or current) depressed, in partial or unspecified remission Bipolar disorder, in partial remission, most recent episode depressed (HCC-CMS)- Primary Bipolar I disorder, most recent episode (or current) depressed, in partial or unspecified remission Bipolar disorder in partial remission, most recent episode unspecified type (HCC-CMS) Generalized anxiety disorder Bipolar disorder, in partial remission, most recent episode depressed (HCC-CMS)- Primary Bipolar I disorder, most recent episode (or current) depressed, in partial or unspecified remission Generalized anxiety disorder Bipolar disorder in partial remission, most recent episode unspecified type (HCC-CMS) Bipolar disorder in partial remission, most recent episode unspecified type (HCC-CMS)- Primary Generalized anxiety disorder Mixed obsessional thoughts and acts Long-term use of high-risk medication Screening for endocrine, metabolic and immunity disorder Bipolar disorder in full remission, most recent episode unspecified type (HCC-CMS)- Primary Generalized anxiety disorder Other obsessive-compulsive disorders Bipolar disorder in full remission, most recent episode unspecified type (HCC-CMS)- Primary Generalized anxiety disorder with panic attacks Generalized anxiety disorder with panic attacks- Primary Bipolar disorder in full remission, most recent episode unspecified type (HCC-CMS)- Primary documented in this encounter [facility] [employer] Work Phone: Evaluation note* Diagnosis Bipolar disorder, current episode mixed, mild (HCC-CMS) Bipolar I disorder, most recent episode (or current) mixed, mild Generalized anxiety disorder Obsessive-compulsive disorder, unspecified type Generalized anxiety disorder- Primary Bipolar affective disorder, current episode mixed, current episode severity unspecified (HCC-CMS) Generalized anxiety disorder- Primary Bipolar disorder in partial remission, most recent episode unspecified type (HCC-CMS) Generalized anxiety disorder Bipolar disorder in partial remission, most recent episode unspecified type (HCC-CMS) Bipolar disorder, current episode mixed, severe, without psychotic features (HCC-CMS)- Primary Bipolar I disorder, most recent episode (or current) mixed, severe, without mention of psychotic behavior Generalized anxiety disorder Bipolar disorder in partial remission, most recent episode unspecified type (HCC-CMS) Bipolar disorder in partial remission, most recent episode unspecified type (HCC-CMS)- Primary Generalized anxiety disorder Mixed obsessional thoughts and acts Bipolar disorder, in partial remission, most recent episode depressed (HCC-CMS) Bipolar I disorder, most recent episode (or current) depressed, in partial or unspecified remission Bipolar disorder, in partial remission, most recent episode depressed (HCC-CMS)- Primary Bipolar I disorder, most recent episode (or current) depressed, in partial or unspecified remission Bipolar disorder in partial remission, most recent episode unspecified type (HCC-CMS) Generalized anxiety disorder Bipolar disorder, in partial remission, most recent episode depressed (HCC-CMS)- Primary Bipolar I disorder, most recent episode (or current) depressed, in partial or unspecified remission Generalized anxiety disorder Bipolar disorder in partial remission, most recent episode unspecified type (HCC-CMS) Bipolar disorder in partial remission, most recent episode unspecified type (HCC-CMS)- Primary Generalized anxiety disorder Mixed obsessional thoughts and acts Long-term use of high-risk medication Screening for endocrine, metabolic and immunity disorder Bipolar disorder in full remission, most recent episode unspecified type (HCC-CMS)- Primary Generalized anxiety disorder Other obsessive-compulsive disorders Bipolar disorder in full remission, most recent episode unspecified type (HCC-CMS)- Primary Generalized anxiety disorder with panic attacks Bipolar disorder in full remission, most recent episode unspecified type (HCC-CMS)- Primary Panic attack Panic disorder without agoraphobia Generalized anxiety disorder with panic attacks Mixed obsessional thoughts and acts Bipolar disorder in full remission, most recent episode unspecified type (HCC-CMS)- Primary Generalized anxiety disorder with panic attacks Bipolar disorder in full remission, most recent episode unspecified type (HCC-CMS)- Primary documented in this encounter [facility] [employer] Work Phone: Evaluation note* Diagnosis Bipolar disorder, current episode mixed, mild (HCC-CMS) Bipolar I disorder, most recent episode (or current) mixed, mild Generalized anxiety disorder Obsessive-compulsive disorder, unspecified type Generalized anxiety disorder- Primary Bipolar affective disorder, current episode mixed, current episode severity unspecified (HCC-CMS) Generalized anxiety disorder- Primary Bipolar disorder in partial remission, most recent episode unspecified type (HCC-CMS) Generalized anxiety disorder Bipolar disorder in partial remission, most recent episode unspecified type (HCC-CMS) Bipolar disorder, current episode mixed, severe, without psychotic features ([facility]-CMS)- Primary Bipolar I disorder, most recent episode (or current) mixed, severe, without mention of psychotic behavior Generalized anxiety disorder Bipolar disorder in partial remission, most recent episode unspecified type (HCC-CMS) Bipolar disorder in partial remission, most recent episode unspecified type (HCC-CMS)- Primary Generalized anxiety disorder Mixed obsessional thoughts and acts Bipolar disorder, in partial remission, most recent episode depressed ([facility]-CMS) Bipolar I disorder, most recent episode (or current) depressed, in partial or unspecified remission Bipolar disorder, in partial remission, most recent episode depressed ([facility]-CMS)- Primary Bipolar I disorder, most recent episode (or current) depressed, in partial or unspecified remission Bipolar disorder in partial remission, most recent episode unspecified type ([facility]-CMS) Generalized anxiety disorder Bipolar disorder, in partial remission, most recent episode depressed ([facility]-CMS)- Primary Bipolar I disorder, most recent episode (or current) depressed, in partial or unspecified remission Generalized anxiety disorder Bipolar disorder in partial remission, most recent episode unspecified type ([facility]-CMS) Bipolar disorder in partial remission, most recent episode unspecified type ([facility]-CMS)- Primary Generalized anxiety disorder Mixed obsessional thoughts and acts Long-term use of high-risk medication Screening for endocrine, metabolic and immunity disorder Bipolar disorder in full remission, most recent episode unspecified type ([facility]-CMS)- Primary Generalized anxiety disorder Other obsessive-compulsive disorders Bipolar disorder in full remission, most recent episode unspecified type (HCC-CMS)- Primary Generalized anxiety disorder with panic attacks Bipolar disorder in full remission, most recent episode unspecified type (HCC-CMS)- Primary Panic attack Panic disorder without agoraphobia Generalized anxiety disorder with panic attacks Mixed obsessional thoughts and acts Bipolar disorder in full remission, most recent episode unspecified type (HCC-CMS)- Primary Generalized anxiety disorder with panic attacks Generalized anxiety disorder with panic attacks- Primary Bipolar disorder in full remission, most recent episode unspecified type (HCC-CMS)- Primary documented in this encounter [facility] [employer] Work Phone: Evaluation note* Diagnosis Bipolar disorder, current episode mixed, mild (HCC-CMS) Bipolar I disorder, most recent episode (or current) mixed, mild Generalized anxiety disorder Obsessive-compulsive disorder, unspecified type Generalized anxiety disorder- Primary Bipolar affective disorder, current episode mixed, current episode severity unspecified (HCC-CMS) Generalized anxiety disorder- Primary Bipolar disorder in partial remission, most recent episode unspecified type (HCC-CMS) Generalized anxiety disorder Bipolar disorder in partial remission, most recent episode unspecified type (HCC-CMS) Bipolar disorder, current episode mixed, severe, without psychotic features (HCC-CMS)- Primary Bipolar I disorder, most recent episode (or current) mixed, severe, without mention of psychotic behavior Generalized anxiety disorder Bipolar disorder in partial remission, most recent episode unspecified type (HCC-CMS) Bipolar disorder in partial remission, most recent episode unspecified type (HCC-CMS)- Primary Generalized anxiety disorder Mixed obsessional thoughts and acts Bipolar disorder, in partial remission, most recent episode depressed (HCC-CMS) Bipolar I disorder, most recent episode (or current) depressed, in partial or unspecified remission Bipolar disorder, in partial remission, most recent episode depressed (HCC-CMS)- Primary Bipolar I disorder, most recent episode (or current) depressed, in partial or unspecified remission Bipolar disorder in partial remission, most recent episode unspecified type (HCC-CMS) Generalized anxiety disorder Bipolar disorder, in partial remission, most recent episode depressed (HCC-CMS)- Primary Bipolar I disorder, most recent episode (or current) depressed, in partial or unspecified remission Generalized anxiety disorder Bipolar disorder in partial remission, most recent episode unspecified type (HCC-CMS) Bipolar disorder in partial remission, most recent episode unspecified type (HCC-CMS)- Primary Generalized anxiety disorder Mixed obsessional thoughts and acts Long-term use of high-risk medication Screening for endocrine, metabolic and immunity disorder Bipolar disorder in full remission, most recent episode unspecified type (HCC-CMS)- Primary Generalized anxiety disorder Other obsessive-compulsive disorders Bipolar disorder in full remission, most recent episode unspecified type (HCC-CMS)- Primary Generalized anxiety disorder with panic attacks Bipolar disorder in full remission, most recent episode unspecified type (HCC-CMS)- Primary Panic attack Panic disorder without agoraphobia Generalized anxiety disorder with panic attacks Mixed obsessional thoughts and acts Bipolar disorder in full remission, most recent episode unspecified type (HCC-CMS)- Primary Generalized anxiety disorder with panic attacks Post traumatic stress disorder- Primary Posttraumatic stress disorder Bipolar disorder in full remission, most recent episode unspecified type (HCC-CMS)- Primary documented in this encounter [facility] Work Phone: Evaluation note* Diagnosis Bipolar disorder, current episode mixed, mild (HCC-CMS) Bipolar I disorder, most recent episode (or current) mixed, mild Generalized anxiety disorder Obsessive-compulsive disorder, unspecified type Generalized anxiety disorder- Primary Bipolar affective disorder, current episode mixed, current episode severity unspecified (HCC-CMS) Generalized anxiety disorder- Primary Bipolar disorder in partial remission, most recent episode unspecified type (HCC-CMS) Generalized anxiety disorder Bipolar disorder in partial remission, most recent episode unspecified type (HCC-CMS) Bipolar disorder, current episode mixed, severe, without psychotic features (HCC-CMS)- Primary Bipolar I disorder, most recent episode (or current) mixed, severe, without mention of psychotic behavior Generalized anxiety disorder Bipolar disorder in partial remission, most recent episode unspecified type (HCC-CMS) Bipolar disorder in partial remission, most recent episode unspecified type (HCC-CMS)- Primary Generalized anxiety disorder Mixed obsessional thoughts and acts Bipolar disorder, in partial remission, most recent episode depressed (HCC-CMS) Bipolar I disorder, most recent episode (or current) depressed, in partial or unspecified remission Bipolar disorder, in partial remission, most recent episode depressed (HCC-CMS)- Primary Bipolar I disorder, most recent episode (or current) depressed, in partial or unspecified remission Bipolar disorder in partial remission, most recent episode unspecified type (HCC-CMS) Generalized anxiety disorder Bipolar disorder, in partial remission, most recent episode depressed (HCC-CMS)- Primary Bipolar I disorder, most recent episode (or current) depressed, in partial or unspecified remission Generalized anxiety disorder Bipolar disorder in partial remission, most recent episode unspecified type (HCC-CMS) Bipolar disorder in partial remission, most recent episode unspecified type (HCC-CMS)- Primary Generalized anxiety disorder Mixed obsessional thoughts and acts Long-term use of high-risk medication Screening for endocrine, metabolic and immunity disorder Bipolar disorder in full remission, most recent episode unspecified type (HCC-CMS)- Primary Generalized anxiety disorder Other obsessive-compulsive disorders Bipolar disorder in full remission, most recent episode unspecified type (HCC-CMS)- Primary Generalized anxiety disorder with panic attacks Bipolar disorder in full remission, most recent episode unspecified type (HCC-CMS)- Primary Panic attack Panic disorder without agoraphobia Generalized anxiety disorder with panic attacks Mixed obsessional thoughts and acts Bipolar disorder in full remission, most recent episode unspecified type (HCC-CMS)- Primary Generalized anxiety disorder with panic attacks Generalized anxiety disorder with panic attacks- Primary Bipolar disorder in full remission, most recent episode unspecified type (HCC-CMS) documented in this encounter [facility] [employer] Work Phone: Evaluation note* Diagnosis Bipolar disorder, current episode mixed, mild (HCC-CMS) Bipolar I disorder, most recent episode (or current) mixed, mild Generalized anxiety disorder Obsessive-compulsive disorder, unspecified type Generalized anxiety disorder- Primary Bipolar affective disorder, current episode mixed, current episode severity unspecified (HCC-CMS) Generalized anxiety disorder- Primary Bipolar disorder in partial remission, most recent episode unspecified type (HCC-CMS) Generalized anxiety disorder Bipolar disorder in partial remission, most recent episode unspecified type (HCC-CMS) Bipolar disorder, current episode mixed, severe, without psychotic features (HCC-CMS)- Primary Bipolar I disorder, most recent episode (or current) mixed, severe, without mention of psychotic behavior Generalized anxiety disorder Bipolar disorder in partial remission, most recent episode unspecified type (HCC-CMS) Bipolar disorder in partial remission, most recent episode unspecified type (HCC-CMS)- Primary Generalized anxiety disorder Mixed obsessional thoughts and acts Bipolar disorder, in partial remission, most recent episode depressed (HCC-CMS) Bipolar I disorder, most recent episode (or current) depressed, in partial or unspecified remission Bipolar disorder, in partial remission, most recent episode depressed (HCC-CMS)- Primary Bipolar I disorder, most recent episode (or current) depressed, in partial or unspecified remission Bipolar disorder in partial remission, most recent episode unspecified type (HCC-CMS) Generalized anxiety disorder Bipolar disorder, in partial remission, most recent episode depressed (HCC-CMS)- Primary Bipolar I disorder, most recent episode (or current) depressed, in partial or unspecified remission Generalized anxiety disorder Bipolar disorder in partial remission, most recent episode unspecified type (HCC-CMS) Bipolar disorder in partial remission, most recent episode unspecified type (HCC-CMS)- Primary Generalized anxiety disorder Mixed obsessional thoughts and acts Long-term use of high-risk medication Screening for endocrine, metabolic and immunity disorder Bipolar disorder in full remission, most recent episode unspecified type (HCC-CMS)- Primary Generalized anxiety disorder Other obsessive-compulsive disorders Bipolar disorder in full remission, most recent episode unspecified type (HCC-CMS)- Primary Generalized anxiety disorder with panic attacks Bipolar disorder in full remission, most recent episode unspecified type (HCC-CMS)- Primary Panic attack Panic disorder without agoraphobia Generalized anxiety disorder with panic attacks Mixed obsessional thoughts and acts Bipolar disorder in full remission, most recent episode unspecified type (HCC-CMS)- Primary Generalized anxiety disorder with panic attacks Mixed obsessional thoughts and acts- Primary Generalized anxiety disorder with panic attacks- Primary Bipolar disorder in full remission, most recent episode unspecified type (HCC-CMS) documented in this encounter [facility] [employer] Work Phone: Evaluation note* Diagnosis Bipolar disorder, current episode mixed, mild (HCC-CMS) Bipolar I disorder, most recent episode (or current) mixed, mild Generalized anxiety disorder Obsessive-compulsive disorder, unspecified type Generalized anxiety disorder- Primary Bipolar affective disorder, current episode mixed, current episode severity unspecified (HCC-CMS) Generalized anxiety disorder- Primary Bipolar disorder in partial remission, most recent episode unspecified type (HCC-CMS) Generalized anxiety disorder Bipolar disorder in partial remission, most recent episode unspecified type (HCC-CMS) Bipolar disorder, current episode mixed, severe, without psychotic features (HCC-CMS)- Primary Bipolar I disorder, most recent episode (or current) mixed, severe, without mention of psychotic behavior Generalized anxiety disorder Bipolar disorder in partial remission, most recent episode unspecified type (HCC-CMS) Bipolar disorder in partial remission, most recent episode unspecified type (HCC-CMS)- Primary Generalized anxiety disorder Mixed obsessional thoughts and acts Bipolar disorder, in partial remission, most recent episode depressed (HCC-CMS) Bipolar I disorder, most recent episode (or current) depressed, in partial or unspecified remission Bipolar disorder, in partial remission, most recent episode depressed (HCC-CMS)- Primary Bipolar I disorder, most recent episode (or current) depressed, in partial or unspecified remission Bipolar disorder in partial remission, most recent episode unspecified type (HCC-CMS) Generalized anxiety disorder Bipolar disorder, in partial remission, most recent episode depressed (HCC-CMS)- Primary Bipolar I disorder, most recent episode (or current) depressed, in partial or unspecified remission Generalized anxiety disorder Bipolar disorder in partial remission, most recent episode unspecified type (HCC-CMS) Bipolar disorder in partial remission, most recent episode unspecified type (HCC-CMS)- Primary Generalized anxiety disorder Mixed obsessional thoughts and acts Long-term use of high-risk medication Screening for endocrine, metabolic and immunity disorder Bipolar disorder in full remission, most recent episode unspecified type (HCC-CMS)- Primary Generalized anxiety disorder Other obsessive-compulsive disorders Bipolar disorder in full remission, most recent episode unspecified type (HCC-CMS)- Primary Generalized anxiety disorder with panic attacks Bipolar disorder in full remission, most recent episode unspecified type (HCC-CMS)- Primary Panic attack Panic disorder without agoraphobia Generalized anxiety disorder with panic attacks Mixed obsessional thoughts and acts Bipolar disorder in full remission, most recent episode unspecified type (HCC-CMS)- Primary Generalized anxiety disorder with panic attacks Generalized anxiety disorder with panic attacks- Primary Bipolar disorder in full remission, most recent episode unspecified type (HCC-CMS) Obsessive-compulsive disorder, unspecified type documented in this encounter [facility] [employer] Work Phone: Evaluation note* Diagnosis Bipolar disorder, current episode mixed, mild (HCC-CMS) Bipolar I disorder, most recent episode (or current) mixed, mild Generalized anxiety disorder Obsessive-compulsive disorder, unspecified type Generalized anxiety disorder- Primary Bipolar affective disorder, current episode mixed, current episode severity unspecified (HCC-CMS) Generalized anxiety disorder- Primary Bipolar disorder in partial remission, most recent episode unspecified type (HCC-CMS) Generalized anxiety disorder Bipolar disorder in partial remission, most recent episode unspecified type (HCC-CMS) Bipolar disorder, current episode mixed, severe, without psychotic features (HCC-CMS)- Primary Bipolar I disorder, most recent episode (or current) mixed, severe, without mention of psychotic behavior Generalized anxiety disorder Bipolar disorder in partial remission, most recent episode unspecified type (HCC-CMS) Bipolar disorder in partial remission, most recent episode unspecified type (HCC-CMS)- Primary Generalized anxiety disorder Mixed obsessional thoughts and acts Bipolar disorder, in partial remission, most recent episode depressed (HCC-CMS) Bipolar I disorder, most recent episode (or current) depressed, in partial or unspecified remission Bipolar disorder, in partial remission, most recent episode depressed (HCC-CMS)- Primary Bipolar I disorder, most recent episode (or current) depressed, in partial or unspecified remission Bipolar disorder in partial remission, most recent episode unspecified type (HCC-CMS) Generalized anxiety disorder Bipolar disorder, in partial remission, most recent episode depressed (HCC-CMS)- Primary Bipolar I disorder, most recent episode (or current) depressed, in partial or unspecified remission Generalized anxiety disorder Bipolar disorder in partial remission, most recent episode unspecified type (HCC-CMS) Bipolar disorder in partial remission, most recent episode unspecified type (HCC-CMS)- Primary Generalized anxiety disorder Mixed obsessional thoughts and acts Long-term use of high-risk medication Screening for endocrine, metabolic and immunity disorder Bipolar disorder in full remission, most recent episode unspecified type (HCC-CMS)- Primary Generalized anxiety disorder Other obsessive-compulsive disorders Bipolar disorder in full remission, most recent episode unspecified type (HCC-CMS)- Primary Generalized anxiety disorder with panic attacks Bipolar disorder in full remission, most recent episode unspecified type (HCC-CMS)- Primary Panic attack Panic disorder without agoraphobia Generalized anxiety disorder with panic attacks Mixed obsessional thoughts and acts Bipolar disorder in full remission, most recent episode unspecified type (HCC-CMS)- Primary Generalized anxiety disorder with panic attacks Generalized anxiety disorder with panic attacks- Primary Bipolar disorder in full remission, most recent episode unspecified type (HCC-CMS) Obsessive-compulsive disorder, unspecified type Generalized anxiety disorder with panic attacks- Primary documented in this encounter [employer] Phone: Evaluation note* Diagnosis Antibiotic causing adverse effect- Primary Adverse effect of drug, initial encounter Angioedema, initial encounter Lip swelling Diseases of lips Pruritus Unspecified pruritic disorder Anxiety state Anxiety state, unspecified Obesity, Class I, BMI 30-34.9 Obesity, unspecified Mastitis Inflammatory disease of breast Angio-edema Angioneurotic edema not elsewhere classified Chronic migraine without aura, intractable, without status migrainosus- [facility] Diagnosis Antibiotic causing adverse effect- Primary Adverse effect of drug, initial encounter Angioedema, initial encounter Lip swelling Diseases of lips Pruritus Unspecified pruritic disorder Anxiety state Anxiety state, unspecified Obesity, Class I, BMI 30-34.9 Obesity, unspecified Mastitis Inflammatory disease of breast Angio-edema Angioneurotic edema not elsewhere classified Dysuria- Primary Acute vaginitis Vaginitis and vulvovaginitis, unspecified [facility]* Diagnosis Bipolar disorder, current episode mixed, mild (HCC-CMS) Bipolar I disorder, most recent episode (or current) mixed, mild Generalized anxiety disorder Obsessive-compulsive disorder, unspecified type Generalized anxiety disorder- Primary Bipolar affective disorder, current episode mixed, current episode severity unspecified ([facility]) Generalized anxiety disorder- Primary Bipolar disorder in partial remission, most recent episode unspecified type ([facility]) Generalized anxiety disorder Bipolar disorder in partial remission, most recent episode unspecified type ([facility]) Bipolar disorder, current episode mixed, severe, without psychotic features ([facility])- Primary Bipolar I disorder, most recent episode (or current) mixed, severe, without mention of psychotic behavior Generalized anxiety disorder Bipolar disorder in partial remission, most recent episode unspecified type ([facility]) Bipolar disorder in partial remission, most recent episode unspecified type ([facility])- Primary Generalized anxiety disorder Mixed obsessional thoughts and acts Bipolar disorder, in partial remission, most recent episode depressed ([facility]) Bipolar I disorder, most recent episode (or current) depressed, in partial or unspecified remission Bipolar disorder, in partial remission, most recent episode depressed ([facility])- Primary Bipolar I disorder, most recent episode (or current) depressed, in partial or unspecified remission Bipolar disorder in partial remission, most recent episode unspecified type ([facility]) Generalized anxiety disorder Bipolar disorder, in partial remission, most recent episode depressed ([facility])- Primary Bipolar I disorder, most recent episode (or current) depressed, in partial or unspecified remission Generalized anxiety disorder Bipolar disorder in partial remission, most recent episode unspecified type ([facility]) Bipolar disorder in partial remission, most recent episode unspecified type ([facility])- Primary Generalized anxiety disorder Mixed obsessional thoughts and acts Long-term use of high-risk medication Screening for endocrine, metabolic and immunity disorder Bipolar disorder in full remission, most recent episode unspecified type ([facility])- Primary Generalized anxiety disorder Other obsessive-compulsive disorders Bipolar disorder in full remission, most recent episode unspecified type ([facility])- Primary Generalized anxiety disorder with panic attacks Bipolar disorder in full remission, most recent episode unspecified type ([facility])- Primary Panic attack Panic disorder without agoraphobia Generalized anxiety disorder with panic attacks Mixed obsessional thoughts and acts Bipolar disorder in full remission, most recent episode unspecified type (HCC-CMS)- Primary Generalized anxiety disorder with panic attacks Generalized anxiety disorder with panic attacks- Primary Bipolar disorder in full remission, most recent episode unspecified type (HCC-CMS) Obsessive-compulsive disorder, unspecified type Generalized anxiety disorder with panic attacks- Primary Bipolar disorder in full remission, most recent episode unspecified type (HCC-CMS) Therapeutic drug monitoring Encounter for therapeutic drug monitoring Screening for endocrine, metabolic and immunity disorder Long-term use of high-risk medication Obsessive-compulsive disorder, unspecified type Encounter for observation for other suspected diseases and conditions ruled out documented in this encounter [facility] Work Phone: Evaluation note* Diagnosis Bipolar disorder, current episode mixed, mild (HCC-CMS) Bipolar I disorder, most recent episode (or current) mixed, mild Generalized anxiety disorder Obsessive-compulsive disorder, unspecified type Generalized anxiety disorder- Primary Bipolar affective disorder, current episode mixed, current episode severity unspecified (HCC-CMS) Generalized anxiety disorder- Primary Bipolar disorder in partial remission, most recent episode unspecified type (HCC-CMS) Generalized anxiety disorder Bipolar disorder in partial remission, most recent episode unspecified type (HCC-CMS) Bipolar disorder, current episode mixed, severe, without psychotic features (HCC-CMS)- Primary Bipolar I disorder, most recent episode (or current) mixed, severe, without mention of psychotic behavior Generalized anxiety disorder Bipolar disorder in partial remission, most recent episode unspecified type (HCC-CMS) Bipolar disorder in partial remission, most recent episode unspecified type (HCC-CMS)- Primary Generalized anxiety disorder Mixed obsessional thoughts and acts Bipolar disorder, in partial remission, most recent episode depressed (HCC-CMS) Bipolar I disorder, most recent episode (or current) depressed, in partial or unspecified remission Bipolar disorder, in partial remission, most recent episode depressed (HCC-CMS)- Primary Bipolar I disorder, most recent episode (or current) depressed, in partial or unspecified remission Bipolar disorder in partial remission, most recent episode unspecified type (HCC-CMS) Generalized anxiety disorder Bipolar disorder, in partial remission, most recent episode depressed (HCC-CMS)- Primary Bipolar I disorder, most recent episode (or current) depressed, in partial or unspecified remission Generalized anxiety disorder Bipolar disorder in partial remission, most recent episode unspecified type (HCC-CMS) Bipolar disorder in partial remission, most recent episode unspecified type (HCC-CMS)- Primary Generalized anxiety disorder Mixed obsessional thoughts and acts Long-term use of high-risk medication Screening for endocrine, metabolic and immunity disorder Bipolar disorder in full remission, most recent episode unspecified type (HCC-CMS)- Primary Generalized anxiety disorder Other obsessive-compulsive disorders Bipolar disorder in full remission, most recent episode unspecified type (HCC-CMS)- Primary Generalized anxiety disorder with panic attacks Bipolar disorder in full remission, most recent episode unspecified type (HCC-CMS)- Primary Panic attack Panic disorder without agoraphobia Generalized anxiety disorder with panic attacks Mixed obsessional thoughts and acts Bipolar disorder in full remission, most recent episode unspecified type (HCC-CMS)- Primary Generalized anxiety disorder with panic attacks Generalized anxiety disorder with panic attacks- Primary Bipolar disorder in full remission, most recent episode unspecified type (HCC-CMS) Obsessive-compulsive disorder, unspecified type Generalized anxiety disorder with panic attacks- Primary Bipolar disorder in full remission, most recent episode unspecified type (HCC-CMS) Therapeutic drug monitoring Encounter for therapeutic drug monitoring Screening for endocrine, metabolic and immunity disorder Long-term use of high-risk medication Obsessive-compulsive disorder, unspecified type Encounter for observation for other suspected diseases and conditions ruled out Bipolar disorder, rapid cycling (HCC-CMS)- Primary Bipolar disorder, unspecified Obsessive-compulsive disorder, unspecified type Generalized anxiety disorder with panic attacks Bipolar disorder in full remission, most recent episode unspecified type (HCC-CMS)- Primary Bipolar disorder in full remission, most recent episode unspecified type (HCC-CMS)- Primary documented in this encounter [facility] [employer] Phone: Evaluation note* Diagnosis Bipolar disorder, current episode mixed, mild (HCC-CMS) Bipolar I disorder, most recent episode (or current) mixed, mild Generalized anxiety disorder Obsessive-compulsive disorder, unspecified type Generalized anxiety disorder- Primary Bipolar affective disorder, current episode mixed, current episode severity unspecified (HCC-CMS) Generalized anxiety disorder- Primary Bipolar disorder in partial remission, most recent episode unspecified type (HCC-CMS) Generalized anxiety disorder Bipolar disorder in partial remission, most recent episode unspecified type (HCC-CMS) Bipolar disorder, current episode mixed, severe, without psychotic features (HCC-CMS)- Primary Bipolar I disorder, most recent episode (or current) mixed, severe, without mention of psychotic behavior Generalized anxiety disorder Bipolar disorder in partial remission, most recent episode unspecified type (HCC-CMS) Bipolar disorder in partial remission, most recent episode unspecified type (HCC-CMS)- Primary Generalized anxiety disorder Mixed obsessional thoughts and acts Bipolar disorder, in partial remission, most recent episode depressed (HCC-CMS) Bipolar I disorder, most recent episode (or current) depressed, in partial or unspecified remission Bipolar disorder, in partial remission, most recent episode depressed (HCC-CMS)- Primary Bipolar I disorder, most recent episode (or current) depressed, in partial or unspecified remission Bipolar disorder in partial remission, most recent episode unspecified type (HCC-CMS) Generalized anxiety disorder Bipolar disorder, in partial remission, most recent episode depressed ([facility])- Primary Bipolar I disorder, most recent episode (or current) depressed, in partial or unspecified remission Generalized anxiety disorder Bipolar disorder in partial remission, most recent episode unspecified type (HCC-CMS) Bipolar disorder in partial remission, most recent episode unspecified type ([facility])- Primary Generalized anxiety disorder Mixed obsessional thoughts and acts Long-term use of high-risk medication Screening for endocrine, metabolic and immunity disorder Bipolar disorder in full remission, most recent episode unspecified type (HCC-CMS)- Primary Generalized anxiety disorder Other obsessive-compulsive disorders Bipolar disorder in full remission, most recent episode unspecified type (HCC-CMS)- Primary Generalized anxiety disorder with panic attacks Bipolar disorder in full remission, most recent episode unspecified type (HCC-CMS)- Primary Panic attack Panic disorder without agoraphobia Generalized anxiety disorder with panic attacks Mixed obsessional thoughts and acts Bipolar disorder in full remission, most recent episode unspecified type (HCC-CMS)- Primary Generalized anxiety disorder with panic attacks Generalized anxiety disorder with panic attacks- Primary Bipolar disorder in full remission, most recent episode unspecified type (HCC-CMS) Obsessive-compulsive disorder, unspecified type Generalized anxiety disorder with panic attacks- Primary Bipolar disorder in full remission, most recent episode unspecified type (HCC-CMS) Therapeutic drug monitoring Encounter for therapeutic drug monitoring Screening for endocrine, metabolic and immunity disorder Long-term use of high-risk medication Obsessive-compulsive disorder, unspecified type Encounter for observation for other suspected diseases and conditions ruled out Bipolar disorder, rapid cycling (HCC-CMS)- Primary Bipolar disorder, unspecified Obsessive-compulsive disorder, unspecified type Generalized anxiety disorder with panic attacks Bipolar disorder, rapid cycling (HCC-CMS)- Primary Bipolar disorder, unspecified Bipolar disorder in full remission, most recent episode unspecified type (HCC-CMS)- Primary documented in this encounter [facility] Work Phone: Evaluation note* Diagnosis Bipolar disorder, current episode mixed, mild (HCC-CMS) Bipolar I disorder, most recent episode (or current) mixed, mild Generalized anxiety disorder Obsessive-compulsive disorder, unspecified type Generalized anxiety disorder- Primary Bipolar affective disorder, current episode mixed, current episode severity unspecified (HCC-CMS) Generalized anxiety disorder- Primary Bipolar disorder in partial remission, most recent episode unspecified type (HCC-CMS) Generalized anxiety disorder Bipolar disorder in partial remission, most recent episode unspecified type (HCC-CMS) Bipolar disorder, current episode mixed, severe, without psychotic features (HCC-CMS)- Primary Bipolar I disorder, most recent episode (or current) mixed, severe, without mention of psychotic behavior Generalized anxiety disorder Bipolar disorder in partial remission, most recent episode unspecified type (HCC-CMS) Bipolar disorder in partial remission, most recent episode unspecified type (HCC-CMS)- Primary Generalized anxiety disorder Mixed obsessional thoughts and acts Bipolar disorder, in partial remission, most recent episode depressed (HCC-CMS) Bipolar I disorder, most recent episode (or current) depressed, in partial or unspecified remission Bipolar disorder, in partial remission, most recent episode depressed (HCC-CMS)- Primary Bipolar I disorder, most recent episode (or current) depressed, in partial or unspecified remission Bipolar disorder in partial remission, most recent episode unspecified type (HCC-CMS) Generalized anxiety disorder Bipolar disorder, in partial remission, most recent episode depressed (HCC-CMS)- Primary Bipolar I disorder, most recent episode (or current) depressed, in partial or unspecified remission Generalized anxiety disorder Bipolar disorder in partial remission, most recent episode unspecified type (HCC-CMS) Bipolar disorder in partial remission, most recent episode unspecified type (HCC-CMS)- Primary Generalized anxiety disorder Mixed obsessional thoughts and acts Long-term use of high-risk medication Screening for endocrine, metabolic and immunity disorder Bipolar disorder in full remission, most recent episode unspecified type (HCC-CMS)- Primary Generalized anxiety disorder Other obsessive-compulsive disorders Bipolar disorder in full remission, most recent episode unspecified type (HCC-CMS)- Primary Generalized anxiety disorder with panic attacks Bipolar disorder in full remission, most recent episode unspecified type (HCC-CMS)- Primary Panic attack Panic disorder without agoraphobia Generalized anxiety disorder with panic attacks Mixed obsessional thoughts and acts Bipolar disorder in full remission, most recent episode unspecified type (HCC-CMS)- Primary Generalized anxiety disorder with panic attacks Generalized anxiety disorder with panic attacks- Primary Bipolar disorder in full remission, most recent episode unspecified type (HCC-CMS) Obsessive-compulsive disorder, unspecified type Generalized anxiety disorder with panic attacks- Primary Bipolar disorder in full remission, most recent episode unspecified type (HCC-CMS) Therapeutic drug monitoring Encounter for therapeutic drug monitoring Screening for endocrine, metabolic and immunity disorder Long-term use of high-risk medication Obsessive-compulsive disorder, unspecified type Encounter for observation for other suspected diseases and conditions ruled out Bipolar disorder, rapid cycling (HCC-CMS)- Primary Bipolar disorder, unspecified Obsessive-compulsive disorder, unspecified type Generalized anxiety disorder with panic attacks Bipolar disorder, rapid cycling (HCC-CMS)- Primary Bipolar disorder, unspecified Long-term use of high-risk medication Therapeutic drug monitoring Encounter for therapeutic drug monitoring Bipolar disorder in full remission, most recent episode unspecified type (HCC-CMS)- Primary documented in this encounter [facility] [employer] Phone: Evaluation note* Diagnosis Bipolar disorder, current episode mixed, mild (HCC-CMS) Bipolar I disorder, most recent episode (or current) mixed, mild Generalized anxiety disorder Obsessive-compulsive disorder, unspecified type Generalized anxiety disorder- Primary Bipolar affective disorder, current episode mixed, current episode severity unspecified (HCC-CMS) Generalized anxiety disorder- Primary Bipolar disorder in partial remission, most recent episode unspecified type (HCC-CMS) Generalized anxiety disorder Bipolar disorder in partial remission, most recent episode unspecified type (HCC-CMS) Bipolar disorder, current episode mixed, severe, without psychotic features (HCC-CMS)- Primary Bipolar I disorder, most recent episode (or current) mixed, severe, without mention of psychotic behavior Generalized anxiety disorder Bipolar disorder in partial remission, most recent episode unspecified type (HCC-CMS) Bipolar disorder in partial remission, most recent episode unspecified type (HCC-CMS)- Primary Generalized anxiety disorder Mixed obsessional thoughts and acts Bipolar disorder, in partial remission, most recent episode depressed (HCC-CMS) Bipolar I disorder, most recent episode (or current) depressed, in partial or unspecified remission Bipolar disorder, in partial remission, most recent episode depressed (HCC-CMS)- Primary Bipolar I disorder, most recent episode (or current) depressed, in partial or unspecified remission Bipolar disorder in partial remission, most recent episode unspecified type (HCC-CMS) Generalized anxiety disorder Bipolar disorder, in partial remission, most recent episode depressed (HCC-CMS)- Primary Bipolar I disorder, most recent episode (or current) depressed, in partial or unspecified remission Generalized anxiety disorder Bipolar disorder in partial remission, most recent episode unspecified type (HCC-CMS) Bipolar disorder in partial remission, most recent episode unspecified type (HCC-CMS)- Primary Generalized anxiety disorder Mixed obsessional thoughts and acts Long-term use of high-risk medication Screening for endocrine, metabolic and immunity disorder Bipolar disorder in full remission, most recent episode unspecified type (HCC-CMS)- Primary Generalized anxiety disorder Other obsessive-compulsive disorders Bipolar disorder in full remission, most recent episode unspecified type (HCC-CMS)- Primary Generalized anxiety disorder with panic attacks Bipolar disorder in full remission, most recent episode unspecified type (HCC-CMS)- Primary Panic attack Panic disorder without agoraphobia Generalized anxiety disorder with panic attacks Mixed obsessional thoughts and acts Bipolar disorder in full remission, most recent episode unspecified type (HCC-CMS)- Primary Generalized anxiety disorder with panic attacks Generalized anxiety disorder with panic attacks- Primary Bipolar disorder in full remission, most recent episode unspecified type (HCC-CMS) Obsessive-compulsive disorder, unspecified type Generalized anxiety disorder with panic attacks- Primary Bipolar disorder in full remission, most recent episode unspecified type (HCC-CMS) Therapeutic drug monitoring Encounter for therapeutic drug monitoring Screening for endocrine, metabolic and immunity disorder Long-term use of high-risk medication Obsessive-compulsive disorder, unspecified type Encounter for observation for other suspected diseases and conditions ruled out Bipolar disorder, rapid cycling (HCC-CMS)- Primary Bipolar disorder, unspecified Obsessive-compulsive disorder, unspecified type Generalized anxiety disorder with panic attacks Bipolar disorder in full remission, most recent episode unspecified type (HCC-CMS)- Primary documented in this encounter [facility] [employer] Work Phone: Evaluation note* Diagnosis Bipolar disorder, current episode mixed, mild (CMS & HHS-HCC) Bipolar I disorder, most recent episode (or current) mixed, mild Generalized anxiety disorder Obsessive-compulsive disorder, unspecified type Generalized anxiety disorder- Primary Bipolar affective disorder, current episode mixed, current episode severity unspecified ([facility]) Generalized anxiety disorder- Primary Bipolar disorder in partial remission, most recent episode unspecified type ([facility]) Generalized anxiety disorder Bipolar disorder in partial remission, most recent episode unspecified type ([facility]) Bipolar disorder, current episode mixed, severe, without psychotic features ([facility])- Primary Bipolar I disorder, most recent episode (or current) mixed, severe, without mention of psychotic behavior Generalized anxiety disorder Bipolar disorder in partial remission, most recent episode unspecified type ([facility]) Bipolar disorder in partial remission, most recent episode unspecified type ([facility])- Primary Generalized anxiety disorder Mixed obsessional thoughts and acts Bipolar disorder, in partial remission, most recent episode depressed ([facility]) Bipolar I disorder, most recent episode (or current) depressed, in partial or unspecified remission Bipolar disorder, in partial remission, most recent episode depressed ([facility])- Primary Bipolar I disorder, most recent episode (or current) depressed, in partial or unspecified remission Bipolar disorder in partial remission, most recent episode unspecified type ([facility]) Generalized anxiety disorder Bipolar disorder, in partial remission, most recent episode depressed ([facility])- Primary Bipolar I disorder, most recent episode (or current) depressed, in partial or unspecified remission Generalized anxiety disorder Bipolar disorder in partial remission, most recent episode unspecified type ([facility]) Bipolar disorder in partial remission, most recent episode unspecified type ([facility])- Primary Generalized anxiety disorder Mixed obsessional thoughts and acts Long-term use of high-risk medication Screening for endocrine, metabolic and immunity disorder Bipolar disorder in full remission, most recent episode unspecified type ([facility])- Primary Generalized anxiety disorder Other obsessive-compulsive disorders Bipolar disorder in full remission, most recent episode unspecified type ([facility])- Primary Generalized anxiety disorder with panic attacks Bipolar disorder in full remission, most recent episode unspecified type ([facility])- Primary Panic attack Panic disorder without agoraphobia Generalized anxiety disorder with panic attacks Mixed obsessional thoughts and acts Bipolar disorder in full remission, most recent episode unspecified type ([facility])- Primary Generalized anxiety disorder with panic attacks Generalized anxiety disorder with panic attacks- Primary Bipolar disorder in full remission, most recent episode unspecified type ([facility]) Obsessive-compulsive disorder, unspecified type Generalized anxiety disorder with panic attacks- Primary Bipolar disorder in full remission, most recent episode unspecified type ([facility]) Therapeutic drug monitoring Encounter for therapeutic drug monitoring Screening for endocrine, metabolic and immunity disorder Long-term use of high-risk medication Obsessive-compulsive disorder, unspecified type Encounter for observation for other suspected diseases and conditions ruled out Bipolar disorder, rapid cycling (CMS & [facility])- Primary Bipolar disorder, unspecified Obsessive-compulsive disorder, unspecified type Generalized anxiety disorder with panic attacks Borderline personality disorder (CMS & HHS-HCC)- Primary Borderline personality disorder Bipolar disorder in full remission, most recent episode unspecified type ([facility])- Primary documented in this encounter [facility] [employer] Phone: Evaluation note* Diagnosis Bipolar disorder, current episode mixed, mild (CMS & [facility]) Bipolar I disorder, most recent episode (or current) mixed, mild Generalized anxiety disorder Obsessive-compulsive disorder, unspecified type Generalized anxiety disorder- Primary Bipolar affective disorder, current episode mixed, current episode severity unspecified (CMS & [facility]) Generalized anxiety disorder- Primary Bipolar disorder in partial remission, most recent episode unspecified type ([facility]) Generalized anxiety disorder Bipolar disorder in partial remission, most recent episode unspecified type (CMS & [facility]) Bipolar disorder, current episode mixed, severe, without psychotic features (CMS & [facility])- Primary Bipolar I disorder, most recent episode (or current) mixed, severe, without mention of psychotic behavior Generalized anxiety disorder Bipolar disorder in partial remission, most recent episode unspecified type (CMS & [facility]) Bipolar disorder in partial remission, most recent episode unspecified type (CMS & [facility])- Primary Generalized anxiety disorder Mixed obsessional thoughts and acts Bipolar disorder, in partial remission, most recent episode depressed (CMS & [facility]) Bipolar I disorder, most recent episode (or current) depressed, in partial or unspecified remission Bipolar disorder, in partial remission, most recent episode depressed (CMS & [facility])- Primary Bipolar I disorder, most recent episode (or current) depressed, in partial or unspecified remission Bipolar disorder in partial remission, most recent episode unspecified type (CMS & [facility]) Generalized anxiety disorder Bipolar disorder, in partial remission, most recent episode depressed (CMS & HHS-HCC)- Primary Bipolar I disorder, most recent episode (or current) depressed, in partial or unspecified remission Generalized anxiety disorder Bipolar disorder in partial remission, most recent episode unspecified type (CMS & HHS-HCC) Bipolar disorder in partial remission, most recent episode unspecified type (CMS & HHS-HCC)- Primary Generalized anxiety disorder Mixed obsessional thoughts and acts Long-term use of high-risk medication Screening for endocrine, metabolic and immunity disorder Bipolar disorder in full remission, most recent episode unspecified type (CMS & [facility]-HCC)- Primary Generalized anxiety disorder Other obsessive-compulsive disorders Bipolar disorder in full remission, most recent episode unspecified type (CMS & HHS-HCC)- Primary Generalized anxiety disorder with panic attacks Bipolar disorder in full remission, most recent episode unspecified type (CMS & [facility]-HCC)- Primary Panic attack Panic disorder without agoraphobia Generalized anxiety disorder with panic attacks Mixed obsessional thoughts and acts Bipolar disorder in full remission, most recent episode unspecified type (CMS & HHS-HCC)- Primary Generalized anxiety disorder with panic attacks Generalized anxiety disorder with panic attacks- Primary Bipolar disorder in full remission, most recent episode unspecified type (CMS & [facility]-HCC) Obsessive-compulsive disorder, unspecified type Generalized anxiety disorder with panic attacks- Primary Bipolar disorder in full remission, most recent episode unspecified type ([facility]-HCC) Therapeutic drug monitoring Encounter for therapeutic drug monitoring Screening for endocrine, metabolic and immunity disorder Long-term use of high-risk medication Obsessive-compulsive disorder, unspecified type Encounter for observation for other suspected diseases and conditions ruled out Bipolar disorder, rapid cycling ([facility])- Primary Bipolar disorder, unspecified Obsessive-compulsive disorder, unspecified type Generalized anxiety disorder with panic attacks Bipolar disorder, rapid cycling ([facility])- Primary Bipolar disorder, unspecified Obsessive-compulsive disorder, unspecified type Generalized anxiety disorder with panic attacks documented in this encounter [employer] Phone: Evaluation note* Diagnosis Adverse effect of drug, initial encounter Angioedema, initial encounter Lip swelling Diseases of lips Pruritus Unspecified pruritic disorder Obesity, Class I, BMI 30-34.9 Obesity, unspecified Mastitis Inflammatory disease of breast Angio-edema Angioneurotic edema not elsewhere classified Chronic migraine without aura, intractable, without status migrainosus- [facility] B[facility] disorder, current episode mixed, mild ([facility]) Bipolar I disorder, most recent episode (or current) mixed, mild Generalized anxiety disorder Obsessive-compulsive disorder, unspecified type Generalized anxiety disorder- Primary Bipolar affective disorder, current episode mixed, current episode severity unspecified ([facility]) Generalized anxiety disorder- Primary Bipolar disorder in partial remission, most recent episode unspecified type ([facility]) Generalized anxiety disorder Bipolar disorder in partial remission, most recent episode unspecified type ([facility]) Bipolar disorder, current episode mixed, severe, without psychotic features ([facility])- Primary Bipolar I disorder, most recent episode (or current) mixed, severe, without mention of psychotic behavior Generalized anxiety disorder Bipolar disorder in partial remission, most recent episode unspecified type ([facility]) Bipolar disorder in partial remission, most recent episode unspecified type ([facility])- Primary Generalized anxiety disorder Mixed obsessional thoughts and acts Bipolar disorder, in partial remission, most recent episode depressed ([facility]) Bipolar I disorder, most recent episode (or current) depressed, in partial or unspecified remission Bipolar disorder, in partial remission, most recent episode depressed ([facility])- Primary Bipolar I disorder, most recent episode (or current) depressed, in partial or unspecified remission Bipolar disorder in partial remission, most recent episode unspecified type ([facility]) Generalized anxiety disorder Bipolar disorder, in partial remission, most recent episode depressed ([facility])- Primary Bipolar I disorder, most recent episode (or current) depressed, in partial or unspecified remission Generalized anxiety disorder Bipolar disorder in partial remission, most recent episode unspecified type ([facility]) Bipolar disorder in partial remission, most recent episode unspecified type ([facility])- Primary Generalized anxiety disorder Mixed obsessional thoughts and acts Long-term use of high-risk medication Screening for endocrine, metabolic and immunity disorder Bipolar disorder in full remission, most recent episode unspecified type ([facility])- Primary Generalized anxiety disorder Other obsessive-compulsive disorders Bipolar disorder in full remission, most recent episode unspecified type ([facility])- Primary Generalized anxiety disorder with panic attacks Bipolar disorder in full remission, most recent episode unspecified type ([facility])- Primary Panic attack Panic disorder without agoraphobia Generalized anxiety disorder with panic attacks Mixed obsessional thoughts and acts Bipolar disorder in full remission, most recent episode unspecified type (CMS & HHS-HCC)- Primary Generalized anxiety disorder with panic attacks Generalized anxiety disorder with panic attacks- Primary Bipolar disorder in full remission, most recent episode unspecified type (CMS & HHS-HCC) Obsessive-compulsive disorder, unspecified type Generalized anxiety disorder with panic attacks- Primary Bipolar disorder in full remission, most recent episode unspecified type (CMS & HHS-HCC) Therapeutic drug monitoring Encounter for therapeutic drug monitoring Screening for endocrine, metabolic and immunity disorder Long-term use of high-risk medication Obsessive-compulsive disorder, unspecified type Encounter for observation for other suspected diseases and conditions ruled out Bipolar disorder, rapid cycling (CMS & HHS-HCC)- Primary Bipolar disorder, unspecified Obsessive-compulsive disorder, unspecified type Generalized anxiety disorder with panic attacks Bipolar disorder, rapid cycling (CMS & HHS-HCC)- Primary Bipolar disorder, unspecified Obsessive-compulsive disorder, unspecified type Generalized anxiety disorder with panic attacks Obsessive-compulsive disorder, unspecified type- Primary Generalized anxiety disorder with panic attacks Bipolar disorder, in partial remission, most recent episode hypomanic (CMS & HHS-HCC) Bipolar disorder, unspecified Screening for endocrine, metabolic and immunity disorder Long-term use of high-risk medication Bipolar disorder, in partial remission, most recent episode hypomanic (CMS & HHS-HCC)- Primary Bipolar disorder, unspecified documented in this encounter [facility] [employer] Phone: Evaluation note* Diagnosis Bipolar disorder, current episode mixed, mild (CMS & HHS-HCC) Bipolar I disorder, most recent episode (or current) mixed, mild Generalized anxiety disorder Obsessive-compulsive disorder, unspecified type Generalized anxiety disorder- Primary Bipolar affective disorder, current episode mixed, current episode severity unspecified (CMS & HHS-HCC) Generalized anxiety disorder- Primary Bipolar disorder in partial remission, most recent episode unspecified type (CMS & HHS-HCC) Generalized anxiety disorder Bipolar disorder in partial remission, most recent episode unspecified type (CMS & HHS-HCC) Bipolar disorder, current episode mixed, severe, without psychotic features (CMS & HHS-HCC)- Primary Bipolar I disorder, most recent episode (or current) mixed, severe, without mention of psychotic behavior Generalized anxiety disorder Bipolar disorder in partial remission, most recent episode unspecified type (CMS & HHS-HCC) Bipolar disorder in partial remission, most recent episode unspecified type (CMS & HHS-HCC)- Primary Generalized anxiety disorder Mixed obsessional thoughts and acts Bipolar disorder, in partial remission, most recent episode depressed ([facility]) Bipolar I disorder, most recent episode (or current) depressed, in partial or unspecified remission Bipolar disorder, in partial remission, most recent episode depressed ([facility])- Primary Bipolar I disorder, most recent episode (or current) depressed, in partial or unspecified remission Bipolar disorder in partial remission, most recent episode unspecified type ([facility]) Generalized anxiety disorder Bipolar disorder, in partial remission, most recent episode depressed ([facility])- Primary Bipolar I disorder, most recent episode (or current) depressed, in partial or unspecified remission Generalized anxiety disorder Bipolar disorder in partial remission, most recent episode unspecified type ([facility]) Bipolar disorder in partial remission, most recent episode unspecified type ([facility])- Primary Generalized anxiety disorder Mixed obsessional thoughts and acts Long-term use of high-risk medication Screening for endocrine, metabolic and immunity disorder Bipolar disorder in full remission, most recent episode unspecified type ([facility])- Primary Generalized anxiety disorder Other obsessive-compulsive disorders Bipolar disorder in full remission, most recent episode unspecified type ([facility])- Primary Generalized anxiety disorder with panic attacks Bipolar disorder in full remission, most recent episode unspecified type ([facility])- Primary Panic attack Panic disorder without agoraphobia Generalized anxiety disorder with panic attacks Mixed obsessional thoughts and acts Bipolar disorder in full remission, most recent episode unspecified type ([facility])- Primary Generalized anxiety disorder with panic attacks Generalized anxiety disorder with panic attacks- Primary Bipolar disorder in full remission, most recent episode unspecified type ([facility]) Obsessive-compulsive disorder, unspecified type Generalized anxiety disorder with panic attacks- Primary Bipolar disorder in full remission, most recent episode unspecified type ([facility]) Therapeutic drug monitoring Encounter for therapeutic drug monitoring Screening for endocrine, metabolic and immunity disorder Long-term use of high-risk medication Obsessive-compulsive disorder, unspecified type Encounter for observation for other suspected diseases and conditions ruled out Bipolar disorder, rapid cycling ([facility])- Primary Bipolar disorder, unspecified Obsessive-compulsive disorder, unspecified type Generalized anxiety disorder with panic attacks Bipolar disorder, rapid cycling ([facility])- Primary Bipolar disorder, unspecified Obsessive-compulsive disorder, unspecified type Generalized anxiety disorder with panic attacks Obsessive-compulsive disorder, unspecified type- Primary Generalized anxiety disorder with panic attacks Bipolar disorder, in partial remission, most recent episode hypomanic (CMS & [facility]-HCC) Bipolar disorder, unspecified Screening for endocrine, metabolic and immunity disorder Long-term use of high-risk medication documented in this encounter [facility] [employer] Phone: Evaluation note* Diagnosis Bipolar disorder, current episode mixed, mild (CMS & HHS-HCC) Bipolar I disorder, most recent episode (or current) mixed, mild Generalized anxiety disorder Obsessive-compulsive disorder, unspecified type Generalized anxiety disorder- Primary Bipolar affective disorder, current episode mixed, current episode severity unspecified (CMS & HHS-HCC) Generalized anxiety disorder- Primary Bipolar disorder in partial remission, most recent episode unspecified type (CMS & HHS-HCC) Generalized anxiety disorder Bipolar disorder in partial remission, most recent episode unspecified type (CMS & HHS-HCC) Bipolar disorder, current episode mixed, severe, without psychotic features (CMS & HHS-HCC)- Primary Bipolar I disorder, most recent episode (or current) mixed, severe, without mention of psychotic behavior Generalized anxiety disorder Bipolar disorder in partial remission, most recent episode unspecified type (CMS & HHS-HCC) Bipolar disorder in partial remission, most recent episode unspecified type (CMS & HHS-HCC)- Primary Generalized anxiety disorder Mixed obsessional thoughts and acts Bipolar disorder, in partial remission, most recent episode depressed (CMS & HHS-HCC) Bipolar I disorder, most recent episode (or current) depressed, in partial or unspecified remission Bipolar disorder, in partial remission, most recent episode depressed (CMS & HHS-HCC)- Primary Bipolar I disorder, most recent episode (or current) depressed, in partial or unspecified remission Bipolar disorder in partial remission, most recent episode unspecified type (CMS & HHS-HCC) Generalized anxiety disorder Bipolar disorder, in partial remission, most recent episode depressed (CMS & HHS-HCC)- Primary Bipolar I disorder, most recent episode (or current) depressed, in partial or unspecified remission Generalized anxiety disorder Bipolar disorder in partial remission, most recent episode unspecified type (CMS & HHS-HCC) Bipolar disorder in partial remission, most recent episode unspecified type (CMS & HHS-HCC)- Primary Generalized anxiety disorder Mixed obsessional thoughts and acts Long-term use of high-risk medication Screening for endocrine, metabolic and immunity disorder Bipolar disorder in full remission, most recent episode unspecified type (CMS & HHS-HCC)- Primary Generalized anxiety disorder Other obsessive-compulsive disorders Bipolar disorder in full remission, most recent episode unspecified type (CMS & HHS-HCC)- Primary Generalized anxiety disorder with panic attacks Bipolar disorder in full remission, most recent episode unspecified type (CMS & HHS-HCC)- Primary Panic attack Panic disorder without agoraphobia Generalized anxiety disorder with panic attacks Mixed obsessional thoughts and acts Bipolar disorder in full remission, most recent episode unspecified type (CMS & HHS-HCC)- Primary Generalized anxiety disorder with panic attacks Generalized anxiety disorder with panic attacks- Primary Bipolar disorder in full remission, most recent episode unspecified type (CMS & HHS-HCC) Obsessive-compulsive disorder, unspecified type Generalized anxiety disorder with panic attacks- Primary Bipolar disorder in full remission, most recent episode unspecified type (CMS & HHS-HCC) Therapeutic drug monitoring Encounter for therapeutic drug monitoring Screening for endocrine, metabolic and immunity disorder Long-term use of high-risk medication Obsessive-compulsive disorder, unspecified type Encounter for observation for other suspected diseases and conditions ruled out Bipolar disorder, rapid cycling (CMS & HHS-HCC)- Primary Bipolar disorder, unspecified Obsessive-compulsive disorder, unspecified type Generalized anxiety disorder with panic attacks Bipolar disorder, rapid cycling (CMS & HHS-HCC)- Primary Bipolar disorder, unspecified Obsessive-compulsive disorder, unspecified type Generalized anxiety disorder with panic attacks Obsessive-compulsive disorder, unspecified type- Primary Generalized anxiety disorder with panic attacks Bipolar disorder, in partial remission, most recent episode hypomanic (CMS & HHS-HCC) Bipolar disorder, unspecified Screening for endocrine, metabolic and immunity disorder Long-term use of high-risk medication Bipolar disorder, in partial remission, most recent episode hypomanic (CMS & HHS-HCC)- Primary Bipolar disorder, unspecified Bipolar disorder, in partial remission, most recent episode hypomanic (CMS & HHS-HCC)- Primary Bipolar disorder, unspecified documented in this encounter [facility] [employer] Work Phone: Evaluation note* Diagnosis Bipolar disorder, current episode mixed, mild (CMS & HHS-HCC) Bipolar I disorder, most recent episode (or current) mixed, mild Generalized anxiety disorder Obsessive-compulsive disorder, unspecified type Generalized anxiety disorder- Primary Bipolar affective disorder, current episode mixed, current episode severity unspecified (CMS & HHS-HCC) Generalized anxiety disorder- Primary Bipolar disorder in partial remission, most recent episode unspecified type ([facility]) Generalized anxiety disorder Bipolar disorder in partial remission, most recent episode unspecified type ([facility]) Bipolar disorder, current episode mixed, severe, without psychotic features ([facility])- Primary Bipolar I disorder, most recent episode (or current) mixed, severe, without mention of psychotic behavior Generalized anxiety disorder Bipolar disorder in partial remission, most recent episode unspecified type ([facility] [facility]) Bipolar disorder in partial remission, most recent episode unspecified type ([facility])- Primary Generalized anxiety disorder Mixed obsessional thoughts and acts Bipolar disorder, in partial remission, most recent episode depressed ([facility]) Bipolar I disorder, most recent episode (or current) depressed, in partial or unspecified remission Bipolar disorder, in partial remission, most recent episode depressed ([facility])- Primary Bipolar I disorder, most recent episode (or current) depressed, in partial or unspecified remission Bipolar disorder in partial remission, most recent episode unspecified type ([facility]) Generalized anxiety disorder Bipolar disorder, in partial remission, most recent episode depressed ([facility])- Primary Bipolar I disorder, most recent episode (or current) depressed, in partial or unspecified remission Generalized anxiety disorder Bipolar disorder in partial remission, most recent episode unspecified type ([facility]) Bipolar disorder in partial remission, most recent episode unspecified type ([facility])- Primary Generalized anxiety disorder Mixed obsessional thoughts and acts Long-term use of high-risk medication Screening for endocrine, metabolic and immunity disorder Bipolar disorder in full remission, most recent episode unspecified type ([facility])- Primary Generalized anxiety disorder Other obsessive-compulsive disorders Bipolar disorder in full remission, most recent episode unspecified type ([facility] [facility])- Primary Generalized anxiety disorder with panic attacks Bipolar disorder in full remission, most recent episode unspecified type ([facility])- Primary Panic attack Panic disorder without agoraphobia Generalized anxiety disorder with panic attacks Mixed obsessional thoughts and acts Bipolar disorder in full remission, most recent episode unspecified type ([facility])- Primary Generalized anxiety disorder with panic attacks Generalized anxiety disorder with panic attacks- Primary Bipolar disorder in full remission, most recent episode unspecified type ([facility] & HHS-HCC) Obsessive-compulsive disorder, unspecified type Generalized anxiety disorder with panic attacks- Primary Bipolar disorder in full remission, most recent episode unspecified type ([facility] & [facility]) Therapeutic drug monitoring Encounter for therapeutic drug monitoring Screening for endocrine, metabolic and immunity disorder Long-term use of high-risk medication Obsessive-compulsive disorder, unspecified type Encounter for observation for other suspected diseases and conditions ruled out Bipolar disorder, rapid cycling (CMS & HHS-HCC)- Primary Bipolar disorder, unspecified Obsessive-compulsive disorder, unspecified type Generalized anxiety disorder with panic attacks Bipolar disorder, rapid cycling (CMS & HHS-HCC)- Primary Bipolar disorder, unspecified Obsessive-compulsive disorder, unspecified type Generalized anxiety disorder with panic attacks Obsessive-compulsive disorder, unspecified type- Primary Generalized anxiety disorder with panic attacks Bipolar disorder, in partial remission, most recent episode hypomanic (CMS & HHS-HCC) Bipolar disorder, unspecified Screening for endocrine, metabolic and immunity disorder Long-term use of high-risk medication Obsessive-compulsive disorder, unspecified type- Primary Bipolar disorder, in partial remission, most recent episode hypomanic (CMS & [facility]-HCC)- Primary Bipolar disorder, unspecified documented in this encounter [employer] Phone: Evaluation note* Diagnosis Bipolar disorder, current episode mixed, mild (CMS & HHS-HCC) Bipolar I disorder, most recent episode (or current) mixed, mild Generalized anxiety disorder Obsessive-compulsive disorder, unspecified type Generalized anxiety disorder- Primary Bipolar affective disorder, current episode mixed, current episode severity unspecified (CMS & [facility]) Generalized anxiety disorder- Primary Bipolar disorder in partial remission, most recent episode unspecified type (CMS & [facility]) Generalized anxiety disorder Bipolar disorder in partial remission, most recent episode unspecified type (CMS & [facility]) Bipolar disorder, current episode mixed, severe, without psychotic features (CMS & [facility])- Primary Bipolar I disorder, most recent episode (or current) mixed, severe, without mention of psychotic behavior Generalized anxiety disorder Bipolar disorder in partial remission, most recent episode unspecified type (CMS & HHS-HCC) Bipolar disorder in partial remission, most recent episode unspecified type (CMS & HHS-HCC)- Primary Generalized anxiety disorder Mixed obsessional thoughts and acts Bipolar disorder, in partial remission, most recent episode depressed (CMS & [facility]) Bipolar I disorder, most recent episode (or current) depressed, in partial or unspecified remission Bipolar disorder, in partial remission, most recent episode depressed ([facility])- Primary Bipolar I disorder, most recent episode (or current) depressed, in partial or unspecified remission Bipolar disorder in partial remission, most recent episode unspecified type ([facility]) Generalized anxiety disorder Bipolar disorder, in partial remission, most recent episode depressed ([facility])- Primary Bipolar I disorder, most recent episode (or current) depressed, in partial or unspecified remission Generalized anxiety disorder Bipolar disorder in partial remission, most recent episode unspecified type ([facility]) Bipolar disorder in partial remission, most recent episode unspecified type ([facility])- Primary Generalized anxiety disorder Mixed obsessional thoughts and acts Long-term use of high-risk medication Screening for endocrine, metabolic and immunity disorder Bipolar disorder in full remission, most recent episode unspecified type ([facility])- Primary Generalized anxiety disorder Other obsessive-compulsive disorders Bipolar disorder in full remission, most recent episode unspecified type ([facility])- Primary Generalized anxiety disorder with panic attacks Bipolar disorder in full remission, most recent episode unspecified type ([facility])- Primary Panic attack Panic disorder without agoraphobia Generalized anxiety disorder with panic attacks Mixed obsessional thoughts and acts Bipolar disorder in full remission, most recent episode unspecified type ([facility])- Primary Generalized anxiety disorder with panic attacks Generalized anxiety disorder with panic attacks- Primary Bipolar disorder in full remission, most recent episode unspecified type ([facility]) Obsessive-compulsive disorder, unspecified type Generalized anxiety disorder with panic attacks- Primary Bipolar disorder in full remission, most recent episode unspecified type ([facility]) Therapeutic drug monitoring Encounter for therapeutic drug monitoring Screening for endocrine, metabolic and immunity disorder Long-term use of high-risk medication Obsessive-compulsive disorder, unspecified type Encounter for observation for other suspected diseases and conditions ruled out Bipolar disorder, rapid cycling ([facility])- Primary Bipolar disorder, unspecified Obsessive-compulsive disorder, unspecified type Generalized anxiety disorder with panic attacks Bipolar disorder, rapid cycling ([facility])- Primary Bipolar disorder, unspecified Obsessive-compulsive disorder, unspecified type Generalized anxiety disorder with panic attacks Obsessive-compulsive disorder, unspecified type- Primary Generalized anxiety disorder with panic attacks Bipolar disorder, in partial remission, most recent episode hypomanic ([facility]) Bipolar disorder, unspecified Screening for endocrine, metabolic and immunity disorder Long-term use of high-risk medication Obsessive-compulsive disorder, unspecified type- Primary documented in this encounter [facility] [employer] Work Phone: Evaluation note* Diagnosis Bipolar disorder, current episode mixed, mild (CMS & [facility]) Bipolar I disorder, most recent episode (or current) mixed, mild Generalized anxiety disorder Obsessive-compulsive disorder, unspecified type Generalized anxiety disorder- Primary Bipolar affective disorder, current episode mixed, current episode severity unspecified (CMS & [facility]) Generalized anxiety disorder- Primary Bipolar disorder in partial remission, most recent episode unspecified type ([facility]) Generalized anxiety disorder Bipolar disorder in partial remission, most recent episode unspecified type ([facility]) Bipolar disorder, current episode mixed, severe, without psychotic features (CMS & [facility])- Primary Bipolar I disorder, most recent episode (or current) mixed, severe, without mention of psychotic behavior Generalized anxiety disorder Bipolar disorder in partial remission, most recent episode unspecified type (CMS & [facility]) Bipolar disorder in partial remission, most recent episode unspecified type (CMS & HHS-HCC)- Primary Generalized anxiety disorder Mixed obsessional thoughts and acts Bipolar disorder, in partial remission, most recent episode depressed (CMS & [facility]) Bipolar I disorder, most recent episode (or current) depressed, in partial or unspecified remission Bipolar disorder, in partial remission, most recent episode depressed (CMS & [facility])- Primary Bipolar I disorder, most recent episode (or current) depressed, in partial or unspecified remission Bipolar disorder in partial remission, most recent episode unspecified type (CMS & [facility]) Generalized anxiety disorder Bipolar disorder, in partial remission, most recent episode depressed (CMS & [facility])- Primary Bipolar I disorder, most recent episode (or current) depressed, in partial or unspecified remission Generalized anxiety disorder Bipolar disorder in partial remission, most recent episode unspecified type (CMS & [facility]) Bipolar disorder in partial remission, most recent episode unspecified type (CMS & [facility])- Primary Generalized anxiety disorder Mixed obsessional thoughts and acts Long-term use of high-risk medication Screening for endocrine, metabolic and immunity disorder Bipolar disorder in full remission, most recent episode unspecified type (CMS & [facility])- Primary Generalized anxiety disorder Other obsessive-compulsive disorders Bipolar disorder in full remission, most recent episode unspecified type (CMS & HHS-HCC)- Primary Generalized anxiety disorder with panic attacks Bipolar disorder in full remission, most recent episode unspecified type (CMS & HHS-HCC)- Primary Panic attack Panic disorder without agoraphobia Generalized anxiety disorder with panic attacks Mixed obsessional thoughts and acts Bipolar disorder in full remission, most recent episode unspecified type (CMS & HHS-HCC)- Primary Generalized anxiety disorder with panic attacks Generalized anxiety disorder with panic attacks- Primary Bipolar disorder in full remission, most recent episode unspecified type (CMS & HHS-HCC) Obsessive-compulsive disorder, unspecified type Generalized anxiety disorder with panic attacks- Primary Bipolar disorder in full remission, most recent episode unspecified type (CMS & HHS-HCC) Therapeutic drug monitoring Encounter for therapeutic drug monitoring Screening for endocrine, metabolic and immunity disorder Long-term use of high-risk medication Obsessive-compulsive disorder, unspecified type Encounter for observation for other suspected diseases and conditions ruled out Bipolar disorder, rapid cycling (CMS & HHS-HCC)- Primary Bipolar disorder, unspecified Obsessive-compulsive disorder, unspecified type Generalized anxiety disorder with panic attacks Bipolar disorder, rapid cycling (CMS & HHS-HCC)- Primary Bipolar disorder, unspecified Obsessive-compulsive disorder, unspecified type Generalized anxiety disorder with panic attacks Obsessive-compulsive disorder, unspecified type- Primary Generalized anxiety disorder with panic attacks Bipolar disorder, in partial remission, most recent episode hypomanic (CMS & HHS-HCC) Bipolar disorder, unspecified Screening for endocrine, metabolic and immunity disorder Long-term use of high-risk medication Post traumatic stress disorder- Primary Posttraumatic stress disorder Bipolar disorder, in partial remission, most recent episode hypomanic (CMS & HHS-HCC)- Primary Bipolar disorder, unspecified documented in this encounter [facility] [employer] Phone: Evaluation note* Diagnosis Bipolar disorder, current episode mixed, mild (CMS & HHS-HCC) Bipolar I disorder, most recent episode (or current) mixed, mild Generalized anxiety disorder Obsessive-compulsive disorder, unspecified type Generalized anxiety disorder- Primary Bipolar affective disorder, current episode mixed, current episode severity unspecified (CMS & HHS-HCC) Generalized anxiety disorder- Primary Bipolar disorder in partial remission, most recent episode unspecified type (CMS & HHS-HCC) Generalized anxiety disorder Bipolar disorder in partial remission, most recent episode unspecified type (CMS & HHS-HCC) Bipolar disorder, current episode mixed, severe, without psychotic features ([facility])- Primary Bipolar I disorder, most recent episode (or current) mixed, severe, without mention of psychotic behavior Generalized anxiety disorder Bipolar disorder in partial remission, most recent episode unspecified type ([facility]) Bipolar disorder in partial remission, most recent episode unspecified type ([facility])- Primary Generalized anxiety disorder Mixed obsessional thoughts and acts Bipolar disorder, in partial remission, most recent episode depressed ([facility] [facility] [place] [facility] Bipolar I disorder, most recent episode (or current) depressed, in partial or unspecified remission Bipolar disorder, in partial remission, most recent episode depressed ([facility] [place] [facility] Primary Bipolar I disorder, most recent episode (or current) depressed, in partial or unspecified remission Bipolar disorder in partial remission, most recent episode unspecified type ([facility] [place] [facility]) Generalized anxiety disorder Bipolar disorder, in partial remission, most recent episode depressed ([facility] [place] [facility] Primary Bipolar I disorder, most recent episode (or current) depressed, in partial or unspecified remission Generalized anxiety disorder Bipolar disorder in partial remission, most recent episode unspecified type ([facility] [place] [facility]) Bipolar disorder in partial remission, most recent episode unspecified type ([facility] [place])- Primary Generalized anxiety disorder Mixed obsessional thoughts and acts Long-term use of high-risk medication Screening for endocrine, metabolic and immunity disorder Bipolar disorder in full remission, most recent episode unspecified type ([facility] [place] Primary Generalized anxiety disorder Other obsessive-compulsive disorders Bipolar disorder in full remission, most recent episode unspecified type ([facility] [place] [facility])- Primary Generalized anxiety disorder with panic attacks Bipolar disorder in full remission, most recent episode unspecified type ([facility] [place] [facility] Primary Panic attack Panic disorder without agoraphobia Generalized anxiety disorder with panic attacks Mixed obsessional thoughts and acts Bipolar disorder in full remission, most recent episode unspecified type ([facility] [place])- Primary Generalized anxiety disorder with panic attacks Generalized anxiety disorder with panic attacks- Primary Bipolar disorder in full remission, most recent episode unspecified type ([facility] [place] [facility]) Obsessive-compulsive disorder, unspecified type Generalized anxiety disorder with panic attacks- Primary Bipolar disorder in full remission, most recent episode unspecified type ([facility] [place]) Therapeutic drug monitoring Encounter for therapeutic drug monitoring Screening for endocrine, metabolic and immunity disorder Long-term use of high-risk medication Obsessive-compulsive disorder, unspecified type Encounter for observation for other suspected diseases and conditions ruled out Bipolar disorder, rapid cycling ([facility] & [facility])- Primary Bipolar disorder, unspecified Obsessive-compulsive disorder, unspecified type Generalized anxiety disorder with panic attacks Bipolar disorder, rapid cycling ([facility] & [facility])- Primary Bipolar disorder, unspecified Obsessive-compulsive disorder, unspecified type Generalized anxiety disorder with panic attacks Obsessive-compulsive disorder, unspecified type- Primary Generalized anxiety disorder with panic attacks Bipolar disorder, in partial remission, most recent episode hypomanic ([facility]) Bipolar disorder, unspecified Screening for endocrine, metabolic and immunity disorder Long-term use of high-risk medication Bipolar disorder, in partial remission, most recent episode hypomanic ([facility] & [facility])- Primary Bipolar disorder, unspecified Obsessive-compulsive disorder, unspecified type Generalized anxiety disorder with panic attacks Alcohol use Reserved for inherently not codable concepts WITHOUT codable children documented in this encounter [employer] Phone: Evaluation note* Diagnosis Bipolar disorder, current episode mixed, mild (CMS & [facility]) Bipolar I disorder, most recent episode (or current) mixed, mild Generalized anxiety disorder Obsessive-compulsive disorder, unspecified type Generalized anxiety disorder- Primary Bipolar affective disorder, current episode mixed, current episode severity unspecified ([facility]) Generalized anxiety disorder- Primary Bipolar disorder in partial remission, most recent episode unspecified type ([facility] & [facility]) Generalized anxiety disorder Bipolar disorder in partial remission, most recent episode unspecified type ([facility]) Bipolar disorder, current episode mixed, severe, without psychotic features ([facility])- Primary Bipolar I disorder, most recent episode (or current) mixed, severe, without mention of psychotic behavior Generalized anxiety disorder Bipolar disorder in partial remission, most recent episode unspecified type ([facility] & [facility]) Bipolar disorder in partial remission, most recent episode unspecified type ([facility] & [facility])- Primary Generalized anxiety disorder Mixed obsessional thoughts and acts Bipolar disorder, in partial remission, most recent episode depressed ([facility]) Bipolar I disorder, most recent episode (or current) depressed, in partial or unspecified remission Bipolar disorder, in partial remission, most recent episode depressed ([facility])- Primary Bipolar I disorder, most recent episode (or current) depressed, in partial or unspecified remission Bipolar disorder in partial remission, most recent episode unspecified type ([facility]) Generalized anxiety disorder Bipolar disorder, in partial remission, most recent episode depressed ([facility])- Primary Bipolar I disorder, most recent episode (or current) depressed, in partial or unspecified remission Generalized anxiety disorder Bipolar disorder in partial remission, most recent episode unspecified type ([facility]) Bipolar disorder in partial remission, most recent episode unspecified type ([facility])- Primary Generalized anxiety disorder Mixed obsessional thoughts and acts Long-term use of high-risk medication Screening for endocrine, metabolic and immunity disorder Bipolar disorder in full remission, most recent episode unspecified type ([facility])- Primary Generalized anxiety disorder Other obsessive-compulsive disorders Bipolar disorder in full remission, most recent episode unspecified type ([facility])- Primary Generalized anxiety disorder with panic attacks Bipolar disorder in full remission, most recent episode unspecified type ([facility])- Primary Panic attack Panic disorder without agoraphobia Generalized anxiety disorder with panic attacks Mixed obsessional thoughts and acts Bipolar disorder in full remission, most recent episode unspecified type (CMS & [facility])- Primary Generalized anxiety disorder with panic attacks Generalized anxiety disorder with panic attacks- Primary Bipolar disorder in full remission, most recent episode unspecified type ([facility]) Obsessive-compulsive disorder, unspecified type Generalized anxiety disorder with panic attacks- Primary Bipolar disorder in full remission, most recent episode unspecified type ([facility]) Therapeutic drug monitoring Encounter for therapeutic drug monitoring Screening for endocrine, metabolic and immunity disorder Long-term use of high-risk medication Obsessive-compulsive disorder, unspecified type Encounter for observation for other suspected diseases and conditions ruled out Bipolar disorder, rapid cycling ([facility])- Primary Bipolar disorder, unspecified Obsessive-compulsive disorder, unspecified type Generalized anxiety disorder with panic attacks Bipolar disorder, rapid cycling ([facility] [place])- Primary Bipolar disorder, unspecified Obsessive-compulsive disorder, unspecified type Generalized anxiety disorder with panic attacks Obsessive-compulsive disorder, unspecified type- Primary Generalized anxiety disorder with panic attacks Bipolar disorder, in partial remission, most recent episode hypomanic ([facility] [place]) Bipolar disorder, unspecified Screening for endocrine, metabolic and immunity disorder Long-term use of high-risk medication Bipolar disorder, in partial remission, most recent episode hypomanic (CMS & [facility])- Primary Bipolar disorder, unspecified Obsessive-compulsive disorder, unspecified type Generalized anxiety disorder with panic attacks Alcohol use Reserved for inherently not codable concepts WITHOUT codable children Bipolar disorder, in partial remission, most recent episode hypomanic (CMS & [facility])- Primary Bipolar disorder, unspecified documented in this encounter [facility] [employer] Work Phone: Evaluation note* Diagnosis Bipolar disorder, current episode mixed, mild Bipolar I disorder, most recent episode (or current) mixed, mild Generalized anxiety disorder Obsessive-compulsive disorder, unspecified type Generalized anxiety disorder- Primary Bipolar affective disorder, current episode mixed, current episode severity unspecified Generalized anxiety disorder- Primary Bipolar disorder in partial remission, most recent episode unspecified type Generalized anxiety disorder Bipolar disorder in partial remission, most recent episode unspecified type Bipolar disorder, current episode mixed, severe, without psychotic features- Primary Bipolar I disorder, most recent episode (or current) mixed, severe, without mention of psychotic behavior Generalized anxiety disorder Bipolar disorder in partial remission, most recent episode unspecified type Bipolar disorder in partial remission, most recent episode unspecified type- Primary Generalized anxiety disorder Mixed obsessional thoughts and acts Bipolar disorder, in partial remission, most recent episode depressed Bipolar I disorder, most recent episode (or current) depressed, in partial or unspecified remission Bipolar disorder, in partial remission, most recent episode depressed- Primary Bipolar I disorder, most recent episode (or current) depressed, in partial or unspecified remission Bipolar disorder in partial remission, most recent episode unspecified type Generalized anxiety disorder Bipolar disorder, in partial remission, most recent episode depressed- Primary Bipolar I disorder, most recent episode (or current) depressed, in partial or unspecified remission Generalized anxiety disorder Bipolar disorder in partial remission, most recent episode unspecified type Bipolar disorder in partial remission, most recent episode unspecified type- Primary Generalized anxiety disorder Mixed obsessional thoughts and acts Long-term use of high-risk medication Screening for endocrine, metabolic and immunity disorder Bipolar disorder in full remission, most recent episode unspecified type- Primary Generalized anxiety disorder Other obsessive-compulsive disorders Bipolar disorder in full remission, most recent episode unspecified type- Primary Generalized anxiety disorder with panic attacks Bipolar disorder in full remission, most recent episode unspecified type- Primary Panic attack Panic disorder without agoraphobia Generalized anxiety disorder with panic attacks Mixed obsessional thoughts and acts Bipolar disorder in full remission, most recent episode unspecified type- Primary Generalized anxiety disorder with panic attacks Generalized anxiety disorder with panic attacks- Primary Bipolar disorder in full remission, most recent episode unspecified type Obsessive-compulsive disorder, unspecified type Generalized anxiety disorder with panic attacks- Primary Bipolar disorder in full remission, most recent episode unspecified type Therapeutic drug monitoring Encounter for therapeutic drug monitoring Screening for endocrine, metabolic and immunity disorder Long-term use of high-risk medication Obsessive-compulsive disorder, unspecified type Encounter for observation for other suspected diseases and conditions ruled out Bipolar disorder, rapid cycling- Primary Bipolar disorder, unspecified Obsessive-compulsive disorder, unspecified type Generalized anxiety disorder with panic attacks Bipolar disorder, rapid cycling- Primary Bipolar disorder, unspecified Obsessive-compulsive disorder, unspecified type Generalized anxiety disorder with panic attacks Obsessive-compulsive disorder, unspecified type- Primary Generalized anxiety disorder with panic attacks Bipolar disorder, in partial remission, most recent episode hypomanic Bipolar disorder, unspecified Screening for endocrine, metabolic and immunity disorder Long-term use of high-risk medication Bipolar disorder, in partial remission, most recent episode hypomanic- Primary Bipolar disorder, unspecified Obsessive-compulsive disorder, unspecified type Generalized anxiety disorder with panic attacks Alcohol use Reserved for inherently not codable concepts WITHOUT codable children Bipolar disorder, in partial remission, most recent episode hypomanic- Primary Bipolar disorder, unspecified documented in this encounter [facility] [employer] Work Phone: Evaluation note* Diagnosis Bipolar disorder, current episode mixed, mild Bipolar I disorder, most recent episode (or current) mixed, mild Generalized anxiety disorder Obsessive-compulsive disorder, unspecified type Generalized anxiety disorder- Primary Bipolar affective disorder, current episode mixed, current episode severity unspecified Generalized anxiety disorder- Primary Bipolar disorder in partial remission, most recent episode unspecified type Generalized anxiety disorder Bipolar disorder in partial remission, most recent episode unspecified type Bipolar disorder, current episode mixed, severe, without psychotic features- Primary Bipolar I disorder, most recent episode (or current) mixed, severe, without mention of psychotic behavior Generalized anxiety disorder Bipolar disorder in partial remission, most recent episode unspecified type Bipolar disorder in partial remission, most recent episode unspecified type- Primary Generalized anxiety disorder Mixed obsessional thoughts and acts Bipolar disorder, in partial remission, most recent episode depressed Bipolar I disorder, most recent episode (or current) depressed, in partial or unspecified remission Bipolar disorder, in partial remission, most recent episode depressed- Primary Bipolar I disorder, most recent episode (or current) depressed, in partial or unspecified remission Bipolar disorder in partial remission, most recent episode unspecified type Generalized anxiety disorder Bipolar disorder, in partial remission, most recent episode depressed- Primary Bipolar I disorder, most recent episode (or current) depressed, in partial or unspecified remission Generalized anxiety disorder Bipolar disorder in partial remission, most recent episode unspecified type Bipolar disorder in partial remission, most recent episode unspecified type- Primary Generalized anxiety disorder Mixed obsessional thoughts and acts Long-term use of high-risk medication Screening for endocrine, metabolic and immunity disorder Bipolar disorder in full remission, most recent episode unspecified type- Primary Generalized anxiety disorder Other obsessive-compulsive disorders Bipolar disorder in full remission, most recent episode unspecified type- Primary Generalized anxiety disorder with panic attacks Bipolar disorder in full remission, most recent episode unspecified type- Primary Panic attack Panic disorder without agoraphobia Generalized anxiety disorder with panic attacks Mixed obsessional thoughts and acts Bipolar disorder in full remission, most recent episode unspecified type- Primary Generalized anxiety disorder with panic attacks Generalized anxiety disorder with panic attacks- Primary Bipolar disorder in full remission, most recent episode unspecified type Obsessive-compulsive disorder, unspecified type Generalized anxiety disorder with panic attacks- Primary Bipolar disorder in full remission, most recent episode unspecified type Therapeutic drug monitoring Encounter for therapeutic drug monitoring Screening for endocrine, metabolic and immunity disorder Long-term use of high-risk medication Obsessive-compulsive disorder, unspecified type Encounter for observation for other suspected diseases and conditions ruled out Bipolar disorder, rapid cycling- Primary Bipolar disorder, unspecified Obsessive-compulsive disorder, unspecified type Generalized anxiety disorder with panic attacks Bipolar disorder, rapid cycling- Primary Bipolar disorder, unspecified Obsessive-compulsive disorder, unspecified type Generalized anxiety disorder with panic attacks Obsessive-compulsive disorder, unspecified type- Primary Generalized anxiety disorder with panic attacks Bipolar disorder, in partial remission, most recent episode hypomanic Bipolar disorder, unspecified Screening for endocrine, metabolic and immunity disorder Long-term use of high-risk medication Bipolar disorder, in partial remission, most recent episode hypomanic- Primary Bipolar disorder, unspecified Obsessive-compulsive disorder, unspecified type Generalized anxiety disorder with panic attacks Alcohol use Reserved for inherently not codable concepts WITHOUT codable children Bipolar disorder, in partial remission, most recent episode hypomanic- Primary Bipolar disorder, unspecified documented in this encounter [facility] [employer] Work Phone: Evaluation note* Diagnosis Bipolar disorder, current episode mixed, mild Bipolar I disorder, most recent episode (or current) mixed, mild Generalized anxiety disorder Obsessive-compulsive disorder, unspecified type Generalized anxiety disorder- Primary Bipolar affective disorder, current episode mixed, current episode severity unspecified Generalized anxiety disorder- Primary Bipolar disorder in partial remission, most recent episode unspecified type Generalized anxiety disorder Bipolar disorder in partial remission, most recent episode unspecified type Bipolar disorder, current episode mixed, severe, without psychotic features- Primary Bipolar I disorder, most recent episode (or current) mixed, severe, without mention of psychotic behavior Generalized anxiety disorder Bipolar disorder in partial remission, most recent episode unspecified type Bipolar disorder in partial remission, most recent episode unspecified type- Primary Generalized anxiety disorder Mixed obsessional thoughts and acts Bipolar disorder, in partial remission, most recent episode depressed Bipolar I disorder, most recent episode (or current) depressed, in partial or unspecified remission Bipolar disorder, in partial remission, most recent episode depressed- Primary Bipolar I disorder, most recent episode (or current) depressed, in partial or unspecified remission Bipolar disorder in partial remission, most recent episode unspecified type Generalized anxiety disorder Bipolar disorder, in partial remission, most recent episode depressed- Primary Bipolar I disorder, most recent episode (or current) depressed, in partial or unspecified remission Generalized anxiety disorder Bipolar disorder in partial remission, most recent episode unspecified type Bipolar disorder in partial remission, most recent episode unspecified type- Primary Generalized anxiety disorder Mixed obsessional thoughts and acts Long-term use of high-risk medication Screening for endocrine, metabolic and immunity disorder Bipolar disorder in full remission, most recent episode unspecified type- Primary Generalized anxiety disorder Other obsessive-compulsive disorders Bipolar disorder in full remission, most recent episode unspecified type- Primary Generalized anxiety disorder with panic attacks Bipolar disorder in full remission, most recent episode unspecified type- Primary Panic attack Panic disorder without agoraphobia Generalized anxiety disorder with panic attacks Mixed obsessional thoughts and acts Bipolar disorder in full remission, most recent episode unspecified type- Primary Generalized anxiety disorder with panic attacks Generalized anxiety disorder with panic attacks- Primary Bipolar disorder in full remission, most recent episode unspecified type Obsessive-compulsive disorder, unspecified type Generalized anxiety disorder with panic attacks- Primary Bipolar disorder in full remission, most recent episode unspecified type Therapeutic drug monitoring Encounter for therapeutic drug monitoring Screening for endocrine, metabolic and immunity disorder Long-term use of high-risk medication Obsessive-compulsive disorder, unspecified type Encounter for observation for other suspected diseases and conditions ruled out Bipolar disorder, rapid cycling- Primary Bipolar disorder, unspecified Obsessive-compulsive disorder, unspecified type Generalized anxiety disorder with panic attacks Bipolar disorder, rapid cycling- Primary Bipolar disorder, unspecified Obsessive-compulsive disorder, unspecified type Generalized anxiety disorder with panic attacks Obsessive-compulsive disorder, unspecified type- Primary Generalized anxiety disorder with panic attacks Bipolar disorder, in partial remission, most recent episode hypomanic Bipolar disorder, unspecified Screening for endocrine, metabolic and immunity disorder Long-term use of high-risk medication Bipolar disorder, in partial remission, most recent episode hypomanic- Primary Bipolar disorder, unspecified Obsessive-compulsive disorder, unspecified type Generalized anxiety disorder with panic attacks Alcohol use Reserved for inherently not codable concepts WITHOUT codable children Generalized anxiety disorder with panic attacks- Primary documented in this encounter [facility] Work Phone: Evaluation note* Diagnosis Bipolar disorder, current episode mixed, mild Bipolar I disorder, most recent episode (or current) mixed, mild Generalized anxiety disorder Obsessive-compulsive disorder, unspecified type Generalized anxiety disorder- Primary Bipolar affective disorder, current episode mixed, current episode severity unspecified Generalized anxiety disorder- Primary Bipolar disorder in partial remission, most recent episode unspecified type Generalized anxiety disorder Bipolar disorder in partial remission, most recent episode unspecified type Bipolar disorder, current episode mixed, severe, without psychotic features- Primary Bipolar I disorder, most recent episode (or current) mixed, severe, without mention of psychotic behavior Generalized anxiety disorder Bipolar disorder in partial remission, most recent episode unspecified type Bipolar disorder in partial remission, most recent episode unspecified type- Primary Generalized anxiety disorder Mixed obsessional thoughts and acts Bipolar disorder, in partial remission, most recent episode depressed Bipolar I disorder, most recent episode (or current) depressed, in partial or unspecified remission Bipolar disorder, in partial remission, most recent episode depressed- Primary Bipolar I disorder, most recent episode (or current) depressed, in partial or unspecified remission Bipolar disorder in partial remission, most recent episode unspecified type Generalized anxiety disorder Bipolar disorder, in partial remission, most recent episode depressed- Primary Bipolar I disorder, most recent episode (or current) depressed, in partial or unspecified remission Generalized anxiety disorder Bipolar disorder in partial remission, most recent episode unspecified type Bipolar disorder in partial remission, most recent episode unspecified type- Primary Generalized anxiety disorder Mixed obsessional thoughts and acts Long-term use of high-risk medication Screening for endocrine, metabolic and immunity disorder Bipolar disorder in full remission, most recent episode unspecified type- Primary Generalized anxiety disorder Other obsessive-compulsive disorders Bipolar disorder in full remission, most recent episode unspecified type- Primary Generalized anxiety disorder with panic attacks Bipolar disorder in full remission, most recent episode unspecified type- Primary Panic attack Panic disorder without agoraphobia Generalized anxiety disorder with panic attacks Mixed obsessional thoughts and acts Bipolar disorder in full remission, most recent episode unspecified type- Primary Generalized anxiety disorder with panic attacks Generalized anxiety disorder with panic attacks- Primary Bipolar disorder in full remission, most recent episode unspecified type Obsessive-compulsive disorder, unspecified type Generalized anxiety disorder with panic attacks- Primary Bipolar disorder in full remission, most recent episode unspecified type Therapeutic drug monitoring Encounter for therapeutic drug monitoring Screening for endocrine, metabolic and immunity disorder Long-term use of high-risk medication Obsessive-compulsive disorder, unspecified type Encounter for observation for other suspected diseases and conditions ruled out Bipolar disorder, rapid cycling- Primary Bipolar disorder, unspecified Obsessive-compulsive disorder, unspecified type Generalized anxiety disorder with panic attacks Bipolar disorder, rapid cycling- Primary Bipolar disorder, unspecified Obsessive-compulsive disorder, unspecified type Generalized anxiety disorder with panic attacks Obsessive-compulsive disorder, unspecified type- Primary Generalized anxiety disorder with panic attacks Bipolar disorder, in partial remission, most recent episode hypomanic Bipolar disorder, unspecified Screening for endocrine, metabolic and immunity disorder Long-term use of high-risk medication Bipolar disorder, in partial remission, most recent episode hypomanic- Primary Bipolar disorder, unspecified Obsessive-compulsive disorder, unspecified type Generalized anxiety disorder with panic attacks Alcohol use Reserved for inherently not codable concepts WITHOUT codable children Obsessive-compulsive disorder, unspecified type- Primary documented in this encounter [facility] Work Phone: Hospital Discharge instructions Additional Instructions If you have drooling, difficulty breathing return [facility] the [facility]: Hospital Discharge instructions Additional Instructions Follow-up with a local primary care physician for further evaluation. The ultrasound today was normal. No blood clots. Your labs were unremarkable. Motrin and Tylenol for pain. Return if getting a lot worse but at this time there is no specific diagnosis and this can be followed up and further evaluated as an outpatient.[facility] Work Phone: Reason for referral (narrative)* Diagnostic Procedure Only (Routine) - Authorized Specialty Diagnoses / Procedures Referred By Contac t Referred To Contact [facility] Diagnoses Encounter for long-term (current) use of medications Procedures OBSTETRIC ULTRASOUND WHI US PREG UTERUS AFTER 1ST TRIMEST GESTATION Shalonda Krause APRN.CNM [address] [place] [address] [facility] [address] [place] [address] Referral ID Status Reason Start Date Expiration Date Visits Requested Visits Authorized [id number] Authorized Auto-Generat ed Referral 05/06/2022 05/06/2023 [address] [facility] for referral (narrative)* Diagnostic Procedure Only (Routine) - Closed Specialty Diagnoses / Procedures Referred By Contac t Referred To Contact XR IMAGING Diagnoses Closed nondisplaced fracture of shaft of fifth metacarpal bone of left hand, initial encounter Procedures XR HAND GENERAL 3V PA/LAT/OBL LEFT RADEX HAND MINIMUM 3 VIEWS Gabriela Andrade PA-C [address] [place] [address] [place] [address] Referral ID Status Reason Start Date Expiration Date V isits Requested Visits Authorized [id number] Closed Auto-Generate d Referral 01/01/2024 01/30/2025 [address] [facility] for referral (narrative)* Diagnostic Procedure Only (Routine) - Authorized Specialty Diagnoses / Procedures Referred By Contac t Referred To Contact XR IMAGING Diagnoses Pain Procedures XR HAND GENERAL 3V PA/LAT/OBL LEFT RADEX HAND MINIMUM 3 VIEWS Gabriela Andrade PA-C [id number] [place] [address] [place] [address] Referral ID Status Reason Start Date Expiration Date Visits Requested Visits Authorized [id number] Authorized Auto-Generat ed Referral 01/01/2024 01/30/2025 1 1 [facility] for referral (narrative)* Diagnostic Procedure Only (Routine) - Closed Specialty Diagnoses / Procedures Referred By Contac t Referred To Contact XR IMAGING Diagnoses Closed nondisplaced fracture of shaft of fifth metacarpal bone of left hand, initial encounter Procedures XR HAND GENERAL 3V PA/LAT/OBL LEFT RADEX HAND MINIMUM 3 VIEWS Gabriela Andrade PA-C [address] [place] [address] [place] [address] Referral ID Status Reason Start Date Expiration Date V isits Requested Visits Authorized [id number] Closed Auto-Generate d Referral 01/01/2024 01/30/2025 1 1 [facility] for referral (narrative)* Diagnostic Procedure Only (Routine) - Authorized Specialty Diagnoses / Procedures Referred By Contac t Referred To Contact XR IMAGING Diagnoses Closed nondisplaced fracture of shaft of fifth metacarpal bone of left hand with routine healing, subsequent encounter Procedures XR HAND GENERAL 3V PA/LAT/OBL LEFT RADEX HAND MINIMUM 3 VIEWS Gabriela Andrade PA-C [address] [place] [address] [place] [address] Referral ID Status Reason Start Date Expiration Date Visits Requested Visits Authorized [id number] Authorized Auto-Generat ed Referral 01/28/2024 02/26/2025 1 1 [facility] for referral (narrative)* Diagnostic Procedure Only (Routine) - Closed Specialty Diagnoses / Procedures Referred By Contac t Referred To Contact XR IMAGING Diagnoses Pain Procedures XR HAND GENERAL 3V PA/LAT/OBL LEFT RADEX HAND MINIMUM 3 VIEWS Gabriela Andrade PA-C [address] [place] [address] [place] [address] Referral ID Status Reason Start Date Expiration Date V isits Requested Visits Authorized [id number] Closed Auto-Generate d Referral 01/01/2024 01/30/2025 [address] [facility] for referral (narrative)* Diagnostic Procedure Only (Routine) - Authorized Specialty Diagnoses / Procedures Referred By Contac t Referred To Contact XR IMAGING Diagnoses Pain in left foot Procedures XR FOOT GENERAL 3V AP/LAT/OBL LEFT RADEX FOOT COMPLETE MINIMUM 3 VIEWS Serene Higginbotham MD [address] [place] [address] [place] [address] Referral ID Status Reason Start Date Expiration Date Visits Requested Visits Authorized [id number] Authorized Auto-Generat ed Referral 04/03/2024 05/01/2025 1 1 * Diagnostic Procedure Only (Routine) - Authorized Specialty Diagnoses / Procedures Referred By Contac t Referred To Contact XR IMAGING Diagnoses Sprain of left ankle, unspecified ligament, initial encounter Procedures XR ANKLE GENERAL 3V AP/LAT/OBL LEFT RADEX ANKLE COMPLETE MINIMUM 3 VIEWS Serene Higginbotham MD [address] [place] [address] [place] [address] Referral ID Status Reason Start Date Expiration Date Visits Requested Visits Authorized [id number] Authorized Auto-Generat ed Referral 04/03/2024 05/01/2025 [address] [facility] for referral (narrative)* Diagnostic Procedure Only (Routine) - Closed Specialty Diagnoses / Procedures Referred By Contac t Referred To Contact XR IMAGING Diagnoses Pain in left foot Procedures XR FOOT GENERAL 3V AP/LAT/OBL LEFT RADEX FOOT COMPLETE MINIMUM 3 VIEWS Serene Higginbotham MD [address] [place] [address] [place] [address] Referral ID Status Reason Start Date Expiration Date V isits Requested Visits Authorized [id number] Closed Auto-Generate d Referral 04/03/2024 05/01/2025 1 1 * Diagnostic Procedure Only (Routine) - Closed Specialty Diagnoses / Procedures Referred By Contac t Referred To Contact XR IMAGING Diagnoses Sprain of left ankle, unspecified ligament, initial encounter Procedures XR ANKLE GENERAL 3V AP/LAT/OBL LEFT RADEX ANKLE COMPLETE MINIMUM 3 VIEWS Serene Higginbotham MD [address] [place] [address] [place] [address] Referral ID Status Reason Start Date Expiration Date V isits Requested Visits Authorized [id number] Closed Auto-Generate d Referral 04/03/2024 05/01/2025 [address] [facility] for referral (narrative)* Diagnostic Procedure Only (Routine) - Closed Specialty Diagnoses / Procedures Referred By Contac t Referred To Contact XR IMAGING Diagnoses Closed nondisplaced fracture of shaft of fifth metacarpal bone of left hand with routine healing, subsequent encounter Procedures XR HAND GENERAL 3V PA/LAT/OBL LEFT RADEX HAND MINIMUM 3 VIEWS Gabriela Andrade PA-C [address] [place] [address] [place] [address] Referral ID Status Reason Start Date Expiration Date V isits Requested Visits Authorized [id number] Closed Auto-Generate d Referral 01/28/2024 02/26/2025 [address] [facility] for referral (narrative)* Diagnostic Procedure Only (Urgent) - New Request Specialty Diagnoses / Procedures Referred By Contac t Referred To Contact XR IMAGING Diagnoses Hand injury, left, initial encounter Procedures XR HAND GENERAL 3V PA/LAT/OBL LEFT RADEX HAND MINIMUM 3 VIEWS Alize Alonso, MACHINE WOODWORKING SANDER.CAGER OPERATOR [address] [facility] [place] [address] [place] [address] Referral ID Status Reason Start Date Expiration Date Visits Requested Visits Authorized [id number] New Request Auto-Generat ed Referral 4 10/20/2025 1 [facility]No reason for referral information availableWMercy [facility] Work Phone: Reason for referral (narrative)* General Medicine (Routine) - New Request Specialty Diagnoses / Procedures Referred By Eduardo garcia Referred To Contact Primary Care Diagnoses Bipolar disorder, in partial remission, most recent episode hypomanic ([facility] Angela Dinh LISW [address] [place] [address] Phone: tel: fax: [facility] [address] [place] [address] Phone: tel: fax: Referral ID Status Reason Start Date Expiration Date Visits Requested Visits Authorized [id number] New Request Primary Care 07/16/2025 07/12/2030 1 1 Question Answer Primary Care Subcategory Primary Care General [facility] [employer] Work Phone: Reason for visit Narrative* Diagnostic Procedure Only (Routine) - Closed Specialty Diagnoses / Procedures Referred By Eduardo garcia Referred To Contact [facility] Diagnoses 31 weeks gestation of Bipolar affective disorder, current episode mixed, current episode severity unspecified (HCC) Diet controlled gestational diabetes mellitus (GDM) in third trimester Procedures OBSTETRIC ULTRASOUND WHI US PREG UTERUS AFTER 1ST TRIMEST GESTATION Chitra Nava MD [address] [address] Referral ID Status Reason Start Date Expiration Date V isits Requested Visits Authorized [id number] Closed Auto-Generate d Referral 06/01/2022 06/01/2023 2 1 [facility] N[facility]* Diagnostic Procedure Only (Routine) - Closed Specialty Diagnoses / Procedures Referred By Contac t Referred To Contact XR IMAGING Diagnoses Sprain of left ankle, unspecified ligament, initial encounter Procedures XR ANKLE GENERAL 3V AP/LAT/OBL LEFT RADEX ANKLE COMPLETE MINIMUM 3 VIEWS Serene Higginbotham MD [address] [place] [address] [place] [address] Referral ID Status Reason Start Date Expiration Date V isits Requested Visits Authorized [id number] Closed Auto-Generate d Referral 04/03/2024 05/01/2025 [address] [facility] for visit Narrative* Diagnostic Procedure Only (Routine) - Closed Specialty Diagnoses / Procedures Referred By Contac t Referred To Contact XR IMAGING Diagnoses Closed nondisplaced fracture of shaft of fifth metacarpal bone of left hand with routine healing, subsequent encounter Procedures XR HAND GENERAL 3V PA/LAT/OBL LEFT RADEX HAND MINIMUM 3 VIEWS Gabriela Andrade PA-C [address] [place] [address] [place] [address] Referral ID Status Reason Start Date Expiration Date V isits Requested Visits Authorized [id number] Closed Auto-Generate d Referral 01/28/2024 02/26/2025 1 1 [facility] Summary Purpose Family History No Family History Records FoundNo Family History Records FoundNo Family History Records FoundNo Family History Records FoundNo Family History Records FoundNo Family History Records FoundNo Family History Records FoundNo Family History Records FoundNo Family History Records FoundNo Family History Records FoundNo Family History Records FoundNo Family History Records FoundNo Family History Records Found Advance Directives No Advanced Directives Records Found Date Activated Date Inactivated Comments 05/18/2025 11:11 PM 05/22/2025 7:07 PM Question Answer Comments Full Code Order Discussed With: Patient Date Activated Date Inactivated Comments 05/11/2025 10:28 PM 05/17/2025 8:28 PM Question Answer Comments Full Code Order Discussed With: Discussion Not M edically Appropriate Date Activated Date Inactivated Comments 03/07/2025 3:30 PM 03/08/2025 5:37 PM Question Answer Comments Full Code Order Discussed With: Patient Date Activated Date Inactivated Comments 03/05/2025 1:43 AM 03/06/2025 7:51 PM Question Answer Comments Full Code Order Discussed With: Patient Date Activated Date Inactivated Comments 03/01/2025 4:31 PM 03/03/2025 7:23 PM Question Answer Comments Full Code Order Discussed With: Patient Date Activated Date Inactivated Comments 05/11/2025 10:28 PM 05/17/2025 8:28 PM Question Answer Comments Full Code Order Discussed With: Discussion Not M edically Appropriate Date Activated Date Inactivated Comments 03/07/2025 3:30 PM 03/08/2025 5:37 PM Question Answer Comments Full Code Order Discussed With: Patient Date Activated Date Inactivated Comments 03/05/2025 1:43 AM 03/06/2025 7:51 PM Date Activated Date Inactivated Comments 03/01/2025 4:31 PM 03/03/2025 7:23 PM Date Activated Date Inactivated Comments 01/09/2025 11:18 PM 01/13/2025 3:37 PM Date Activated Date Inactivated Comments 03/07/2025 3:30 PM 03/08/2025 5:37 PM Date Activated Date Inactivated Comments 03/05/2025 1:43 AM 03/06/2025 7:51 PM Date Activated Date Inactivated Comments 03/01/2025 4:31 PM 03/03/2025 7:23 PM Date Activated Date Inactivated Comments 01/09/2025 11:18 PM 01/13/2025 3:37 PM Date Activated Date Inactivated Comments 01/02/2025 6:07 AM 2025 5:59 PM Date Activated Date Inactivated Comments 03/05/2025 1:43 AM 03/06/2025 7:51 PM Date Activated Date Inactivated Comments 03/01/2025 4:31 PM 03/03/2025 7:23 PM Date Activated Date Inactivated Comments 01/09/2025 11:18 PM 01/13/2025 3:37 PM Date Activated Date Inactivated Comments 01/02/2025 6:07 AM 2025 5:59 PM Date Activated Date Inactivated Comments 01/09/2025 11:18 PM 01/13/2025 3:37 PM Date Activated Date Inactivated Comments 01/02/2025 6:07 AM 2025 5:59 PM Documents on File Type Date Recorded Patient Helpdesk Manager Expl anation Advance Directive(s) 09/24/2021 8:36 PM Advance Directive(s) 04/24/2021 8:48 PM Advance Directive(s) 04/04/2021 11:11 AM Advance Directive(s) 01/02/2021 1:14 PM Advance Directive(s) 11/20/2020 5:55 AM Advance Directive(s) 11/03/2020 3:54 PM Advance Directive(s) 06/08/2020 2:01 PM Advance Directive(s) 09/30/2019 2:39 AM Advance Directive(s) 09/06/2019 4:01 PM Advance Directive(s) 09/14/2018 4:32 PM Advance Directive(s) 07/11/2018 8:16 PM Advance Directive(s) 05/15/2018 12:13 PM Advance Directive(s) 03/09/2018 6:36 PM Advance Directive(s) 11/18/2017 11:15 PM Documents on File Type Date Recorded Patient Helpdesk Manager Expl anation Advance Directive(s) 09/24/2021 8:36 PM Advance Directive(s) 04/24/2021 8:48 PM Advance Directive(s) 04/04/2021 11:11 AM Advance Directive(s) 01/02/2021 1:14 PM Advance Directive(s) 11/20/2020 5:55 AM Advance Directive(s) 11/03/2020 3:54 PM Advance Directive(s) 06/08/2020 2:01 PM Advance Directive(s) 09/30/2019 2:39 AM Advance Directive(s) 09/06/2019 4:01 PM Advance Directive(s) 09/14/2018 4:32 PM Advance Directive(s) 07/11/2018 8:16 PM Advance Directive(s) 05/15/2018 12:13 PM Advance Directive(s) 03/09/2018 6:36 PM Advance Directive(s) 11/18/2017 11:15 PM Documents on File Type Date Recorded Patient Helpdesk Manager Expl anation Advance Directive(s) 05/30/2022 11:20 AM Advance Directive(s) 09/24/2021 8:36 PM Advance Directive(s) 04/24/2021 8:48 PM Advance Directive(s) 04/04/2021 11:11 AM Advance Directive(s) 01/02/2021 1:14 PM Advance Directive(s) 11/20/2020 5:55 AM Advance Directive(s) 11/03/2020 3:54 PM Advance Directive(s) 06/08/2020 2:01 PM Advance Directive(s) 09/30/2019 2:39 AM Advance Directive(s) 09/06/2019 4:01 PM Advance Directive(s) 09/14/2018 4:32 PM Advance Directive(s) 07/11/2018 8:16 PM Advance Directive(s) 05/15/2018 12:13 PM Advance Directive(s) 03/09/2018 6:36 PM Advance Directive(s) 11/18/2017 11:15 PM Documents on File Type Date Recorded Patient Helpdesk Manager Expl anation Advance Directive(s) 05/30/2022 11:20 AM Advance Directive(s) 09/24/2021 8:36 PM Advance Directive(s) 04/24/2021 8:48 PM Advance Directive(s) 04/04/2021 11:11 AM Advance Directive(s) 01/02/2021 1:14 PM Advance Directive(s) 11/20/2020 5:55 AM Advance Directive(s) 11/03/2020 3:54 PM Advance Directive(s) 06/08/2020 2:01 PM Advance Directive(s) 09/30/2019 2:39 AM Advance Directive(s) 09/06/2019 4:01 PM Advance Directive(s) 09/14/2018 4:32 PM Advance Directive(s) 07/11/2018 8:16 PM Advance Directive(s) 05/15/2018 12:13 PM Advance Directive(s) 03/09/2018 6:36 PM Advance Directive(s) 11/18/2017 11:15 PM Advance Directive Response Recorded Date/ Time Living Will No December 06 12:56pm Power of Forestry Contractor No December 06, 2022 12:56pm Date Activated Date Inactivated Comments 01/02/2025 6:07 AM 2025 5:59 PM Date Activated Date Inactivated Comments 01/09/2025 11:18 PM 01/13/2025 3:37 PM Question Answer Comments Full Code Order Discussed With: Patient Date Activated Date Inactivated Comments 01/02/2025 6:07 AM 2025 5:59 PM Question Answer Comments Full Code Order Discussed With: Patient Advance Directive Response Recorded Date/ Time Living Will No March 10, 2025 6:13am Do you have a Healthcare Power of Forestry Contractor? No March 10, 2025 6:13am Date Activated Date Inactivated Comments 05/11/2025 10:28 PM Health Concerns Problem Noted Date OB Reminders 03/06/2022 Problem Noted Date OB Reminders 03/06/2022 Problem Noted Date OB Reminders 03/06/2022 Problem Noted Date OB Reminders 03/06/2022 Problem Noted Date OB Reminders 03/06/2022 Problem Noted Date OB Reminders 03/06/2022 Problem Noted Date OB Reminders 03/06/2022 Problem Noted Date OB Reminders 03/06/2022 Problem Noted Date OB Reminders 03/06/2022 Problem Noted Date OB Reminders 03/06/2022 Problem Noted Date OB Reminders 03/06/2022 Problem Noted Date OB Reminders 03/06/2022 Problem Noted Date OB Reminders 03/06/2022 Problem Noted Date OB Reminders 03/06/2022 Problem Noted Date OB Reminders 03/06/2022 Problem Noted Date OB Reminders 03/06/2022 Problem Noted Date OB Reminders 03/06/2022 Problem Noted Date Security Tester 07/24/2022 Problem Noted Date Security Tester 07/24/2022 Problem Noted Date Security Tester 07/24/2022 Problem Noted Date Security Tester 07/24/2022 Problem Noted Date Security Tester 07/24/2022 Problem Noted Date Security Tester 07/24/2022 Problem Noted Date Bipolar Disorder 12/25/2021 PTSD 12/25/2021 Problem Noted Date Security Tester 07/24/2022 Problem Noted Date Bipolar Disorder 12/25/2021 PTSD 12/25/2021 Problem Noted Date Bipolar Disorder 12/25/2021 PTSD 12/25/2021 Problem Noted Date Security Tester 07/24/2022 Problem Noted Date Security Tester 07/24/2022 Problem Noted Date Bipolar Disorder 12/25/2021 PTSD 12/25/2021 Problem Noted Date Diagnosed Date Bipolar Disorder 12/25/2021 PTSD 12/25/2021 Problem Noted Date Diagnosed Date Bipolar Disorder 12/25/2021 PTSD 12/25/2021 Problem Noted Date Diagnosed Date Bipolar Disorder 12/25/2021 PTSD 12/25/2021 Problem Noted Date Diagnosed Date Bipolar Disorder 12/25/2021 PTSD 12/25/2021 Problem Noted Date Diagnosed Date Bipolar Disorder 12/25/2021 PTSD 12/25/2021 Problem Noted Date Diagnosed Date Bipolar Disorder 12/25/2021 PTSD 12/25/2021 Problem Noted Date Diagnosed Date Bipolar Disorder 12/25/2021 PTSD 12/25/2021 Problem Noted Date Diagnosed Date Bipolar Disorder 12/25/2021 PTSD 12/25/2021 Problem Noted Date Diagnosed Date ANXIETY 05/15/2023 PSYCHIATRIC MEDICATION MANAGEMENT 05/15/2023 TRAUMA/STRESSOR DISORDER 05/15/2023 Problem Noted Date Diagnosed Date ANXIETY 05/15/2023 PSYCHIATRIC MEDICATION MANAGEMENT 05/15/2023 TRAUMA/STRESSOR DISORDER 05/15/2023 Problem Noted Date Diagnosed Date ANXIETY 05/15/2023 PSYCHIATRIC MEDICATION MANAGEMENT 05/15/2023 TRAUMA/STRESSOR DISORDER 05/15/2023 Problem Noted Date Diagnosed Date ANXIETY 05/15/2023 PSYCHIATRIC MEDICATION MANAGEMENT 05/15/2023 TRAUMA/STRESSOR DISORDER 05/15/2023 Problem Noted Date Diagnosed Date Security Tester 07/24/2022 Problem Noted Date Diagnosed Date ANXIETY 05/15/2023 PSYCHIATRIC MEDICATION MANAGEMENT 05/15/2023 TRAUMA/STRESSOR DISORDER 05/15/2023 Problem Noted Date Diagnosed Date ANXIETY 05/15/2023 PSYCHIATRIC MEDICATION MANAGEMENT 05/15/2023 TRAUMA/STRESSOR DISORDER 05/15/2023 Problem Noted Date Diagnosed Date Security Tester 07/24/2022 Problem Noted Date Diagnosed Date ANXIETY 05/15/2023 PSYCHIATRIC MEDICATION MANAGEMENT 05/15/2023 TRAUMA/STRESSOR DISORDER 05/15/2023 Problem Noted Date Diagnosed Date Security Tester 07/24/2022 Problem Noted Date Diagnosed Date ANXIETY 05/15/2023 PSYCHIATRIC MEDICATION MANAGEMENT 05/15/2023 TRAUMA/STRESSOR DISORDER 05/15/2023 Problem Noted Date Diagnosed Date ANXIETY 05/15/2023 PSYCHIATRIC MEDICATION MANAGEMENT 05/15/2023 TRAUMA/STRESSOR DISORDER 05/15/2023 Problem Noted Date Diagnosed Date ANXIETY 05/15/2023 PSYCHIATRIC MEDICATION MANAGEMENT 05/15/2023 TRAUMA/STRESSOR DISORDER 05/15/2023 Problem Noted Date Diagnosed Date ANXIETY 05/15/2023 PSYCHIATRIC MEDICATION MANAGEMENT 05/15/2023 TRAUMA/STRESSOR DISORDER 05/15/2023 Problem Noted Date Diagnosed Date ANXIETY 05/15/2023 PSYCHIATRIC MEDICATION MANAGEMENT 05/15/2023 TRAUMA/STRESSOR DISORDER 05/15/2023 Active Problems Noted Date Diagnosed Date ANXIETY 05/15/2023 PSYCHIATRIC MEDICATION MANAGEMENT 05/15/2023 TRAUMA/STRESSOR DISORDER 05/15/2023 Active Problems Noted Date Diagnosed Date ANXIETY 05/15/2023 PSYCHIATRIC MEDICATION MANAGEMENT 05/15/2023 TRAUMA/STRESSOR DISORDER 05/15/2023 Active Problems Noted Date Diagnosed Date ANXIETY 05/15/2023 PSYCHIATRIC MEDICATION MANAGEMENT 05/15/2023 TRAUMA/STRESSOR DISORDER 05/15/2023 Active Problems Noted Date Diagnosed Date ANXIETY 05/15/2023 PSYCHIATRIC MEDICATION MANAGEMENT 05/15/2023 TRAUMA/STRESSOR DISORDER 05/15/2023 Active Problems Noted Date Diagnosed Date ANXIETY 05/15/2023 PSYCHIATRIC MEDICATION MANAGEMENT 05/15/2023 TRAUMA/STRESSOR DISORDER 05/15/2023 Active Problems Noted Date Diagnosed Date ANXIETY 05/15/2023 PSYCHIATRIC MEDICATION MANAGEMENT 05/15/2023 TRAUMA/STRESSOR DISORDER 05/15/2023 Active Problems Noted Date Diagnosed Date ANXIETY 05/15/2023 PSYCHIATRIC MEDICATION MANAGEMENT 05/15/2023 TRAUMA/STRESSOR DISORDER 05/15/2023 Active Problems Noted Date Diagnosed Date ANXIETY 05/15/2023 PSYCHIATRIC MEDICATION MANAGEMENT 05/15/2023 TRAUMA/STRESSOR DISORDER 05/15/2023 Active Problems Noted Date Diagnosed Date ANXIETY 05/15/2023 PSYCHIATRIC MEDICATION MANAGEMENT 05/15/2023 TRAUMA/STRESSOR DISORDER 05/15/2023 Active Problems Noted Date Diagnosed Date ANXIETY 05/15/2023 PSYCHIATRIC MEDICATION MANAGEMENT 05/15/2023 TRAUMA/STRESSOR DISORDER 05/15/2023 Active Problems Noted Date Diagnosed Date ANXIETY 05/15/2023 PSYCHIATRIC MEDICATION MANAGEMENT 05/15/2023 TRAUMA/STRESSOR DISORDER 05/15/2023 Active Problems Noted Date Diagnosed Date ANXIETY 05/15/2023 PSYCHIATRIC MEDICATION MANAGEMENT 05/15/2023 TRAUMA/STRESSOR DISORDER 05/15/2023 OBSESSIVE/COMPULSIVE 07/19/2024 Active Problems Noted Date Diagnosed Date ANXIETY 05/15/2023 PSYCHIATRIC MEDICATION MANAGEMENT 05/15/2023 TRAUMA/STRESSOR DISORDER 05/15/2023 OBSESSIVE/COMPULSIVE 07/19/2024 Active Problems Noted Date Diagnosed Date ANXIETY 05/15/2023 PSYCHIATRIC MEDICATION MANAGEMENT 05/15/2023 TRAUMA/STRESSOR DISORDER 05/15/2023 OBSESSIVE/COMPULSIVE 07/19/2024 Active Problems Noted Date Diagnosed Date ANXIETY 05/15/2023 PSYCHIATRIC MEDICATION MANAGEMENT 05/15/2023 TRAUMA/STRESSOR DISORDER 05/15/2023 OBSESSIVE/COMPULSIVE 07/19/2024 Active Problems Noted Date Diagnosed Date ANXIETY 05/15/2023 PSYCHIATRIC MEDICATION MANAGEMENT 05/15/2023 TRAUMA/STRESSOR DISORDER 05/15/2023 OBSESSIVE/COMPULSIVE 07/19/2024 Reason for Referral Specialty Diagnoses / Procedures Referred By Contac t Referred To Contact Diagnoses Gestational diabetes mellitus, class A1 Procedures CONSULT TO GESTATIONAL/ SKILLED LABOR OFFICE/OUTPATIENT [facility] 60-74 MINUTES Shalonda Krause APRN.CNM [address] [place] [address] Referral ID Status Reason Start Date Expiration Date Visits Requested Visits Authorized [id number] Authorized PCP Requested Referral Auto-Generate d Referral 05/13/2022 05/13/2023 1 1 Specialty Diagnoses / Procedures Referred By Contac t Referred To Contact Diagnoses Diet controlled gestational diabetes mellitus (GDM) in third trimester Procedures CONSULT TO DIABETES EDUCATION OFFICE/OUTPATIENT [facility] 60-74 MINUTES Vincent Ocampo, DO [address] [place] [address] Referral ID Status Reason Start Date Expiration Date Visits Requested Visits Authorized [id number] Authorized PCP Requested Referral 06/03/2022 06/03/2023 1 1 Specialty Diagnoses / Procedures Referred By Contac t Referred To Contact Jaja Moss APRN.CAGER OPERATOR [address] [place] [address] Referral ID Status Reason Start Date Expiration Date Visits Re quested Visits Authorized [id number] Closed 1 1 Specialty Diagnoses / Procedures Referred By Contac t Referred To Contact Ent - Otolaryngology Diagnoses Tinnitus of right ear Hearing difficulty, bilateral Fluid level behind tympanic membrane of both ears Procedures CONSULT TO ENT OFFICE/OUTPATIENT [facility] 60-74 MINUTES Korina Nina APRN.CAGER OPERATOR [address] [facility] [place] [address] Referral ID Status Reason Start Date Expiration Date Visits Requested Visits Authorized [id number] Authorized PCP Requested Referral 01/06/2023 01/06/2024 1 1 Specialty Diagnoses / Procedures Referred By Contac t Referred To Contact Dermatology Diagnoses Nevus Procedures CONSULT TO DERMATOLOGY OFFICE/OUTPATIENT [facility] 60-74 MINUTES Maile Beaver MD [address] [facility] [address] [place] [id number] Referral ID Status Reason Start Date Expiration Date Visits Requested Visits Authorized [id number] Authorized PCP Requested Referral 01/27/2023 01/27/2024 1 1 Specialty Diagnoses / Procedures Referred By Contac t Referred To Contact Podiatry Diagnoses Rash of foot Procedures CONSULT TO PODIATRY OFFICE/OUTPATIENT [facility] 60-74 MINUTES Maile Beaver MD [address] [facility] [address] [place] [address] Referral ID Status Reason Start Date Expiration Date Visits Requested Visits Authorized [id number] Authorized PCP Requested Referral 01/27/2023 01/27/2024 1 1 Specialty Diagnoses / Procedures Referred By Contac t Referred To Contact Urology Diagnoses Recurrent UTI Procedures CONSULT TO UROLOGY OFFICE/OUTPATIENT [facility] 60-74 MINUTES Jcarlos Murguia, MACHINE WOODWORKING SANDER.CAGER OPERATOR [address] [place] [address] Referral ID Status Reason Start Date Expiration Date Visits Requested Visits Authorized [id number] Authorized PCP Requested Referral 09/29/2023 09/28/2024 1 1 Specialty Diagnoses / Procedures Referred By Contac t Referred To Contact Orthopedics Diagnoses Closed nondisplaced fracture of shaft of fifth metacarpal bone of left hand, initial encounter Procedures CONSULT PANEL TO ORTHOPAEDICS OFFICE/OUTPATIENT [facility] 60 MINUTES Tia Bowen, MACHINE WOODWORKING SANDER.CAGER OPERATOR [address] [facility] [place] [address] Referral ID Status Reason Start Date Expiration Date Visits Requested Visits Authorized [id number] Authorized PCP Requested Referral 12/28/2023 12/27/2024 1 1 Specialty Diagnoses / Procedures Referred By Contac t Referred To Contact XR IMAGING Diagnoses Injury of left hand, initial encounter Procedures XR HAND GENERAL 3V PA/LAT/OBL LEFT RADEX HAND MINIMUM 3 VIEWS Tia Bowen, MACHINE WOODWORKING SANDER.CAGER OPERATOR [address] [place] [address] [facility] [address] Referral ID Status Reason Start Date Expiration Date V isits Requested Visits Authorized [id number] Closed Auto-Generate d Referral 12/28/2023 01/26/2025 1 1 Referral ID Status Reason Start Date Expiration Date V isits Requested Visits Authorized [id number] Pending Review 1 1 Specialty Diagnoses / Procedures Referred By Eduardo garcia Referred To Contact Pharmacy Diagnoses Bipolar disorder, in partial remission, most recent episode depressed ([facility] [place] [address] [place] [address] [facility] [address] [place] [address] Referral ID Status Reason Start Date Expiration Date Visits Requested Visits Authorized [id number] New Request Medication Reconciliation 02/22/2024 02/21/2025 1 1 Scheduling Instructions Agreeable Comments Patient is prescribed 10 or more medications and has not had a pharmacist completed comprehensive medication review during the past 6 months. Specialty Diagnoses / Procedures Referred By Eduardo t Referred To Contact [facility] Diagnoses Sprain of left ankle, unspecified ligament, subsequent encounter Procedures CONSULT TO PHYSICAL THERAPY PHYSICAL THERAPY EVALUATION HIGH COMPLEX 45 MINS Serene Higginbotham MD [address] [place] [address] [facility] [address] [place] [address] Referral ID Status Reason Start Date Expiration Date Visits Requested Visits Authorized [id number] Pending Review Auto-Generat ed Referral 04/04/2024 04/04/2025 1 1 Specialty Diagnoses / Procedures Referred By Eduardo garcia Referred To Contact Diagnoses Chronic migraine without aura, intractable, without status migrainosus Jaja Moss, MACHINE WOODWORKING SANDER.CAGER OPERATOR [address] [place] [address] Referral ID Status Reason Start Date Expiration Date Visits Re quested Visits Authorized [id number] Closed 1 1 Medications Administered Section Inactive Administered Medications - up to 3 most recent administrations Medication Order MAR Action Action Date Dose Rate Site lidocaine 10 mg/mL (1 %) 200 mg injection (XYLOCAINE) 200 mg (20 mL), OTHER, ONCE, 1 dose, On Thu07/16/22 at 1300 Given 07/16/2022 1:36 PM EDT 200 mg Inactive Administered Medications - up to 3 most recent administrations Medication Order MAR Action Action Date Dose Rate Site levonorgestrel 20 mcg/24 hours (8 yrs) 52 mg 1 Each intrauterine device (MIRENA) 1 Each, INTRAUTERINE, ONCE (UP TO 30 DAYS AMB), 1 dose, On Thu09/05/22 at 1700, Hazardous Potential Reproductive Risk Drug: Use appropriate PPE. Given 09/05/2022 4:41 PM EDT 1 Each Inactive Administered Medications - up to 3 most recent administrations Medication Order MAR Action Action Date Dose Rate Site onabotulinum toxin type A 200 Units injection (BOTOX) 200 Units, INTRAMUSCULAR, ONCE, 1 dose, On Thu07/15/23 at 0800, This record documents the total dose provided to patient. See progress note for specific locations and amounts administered. Given 07/15/2023 1:56 PM EDT 200 Units Othe r Inactive Administered Medications - up to 3 most recent administrations Medication Order MAR Action Action Date Dose Rate Site onabotulinum toxin type A 200 Units injection (BOTOX) 200 Units, INTRAMUSCULAR, ONCE, 1 dose, On Thu10/14/23 at 0800, This record documents the total dose provided to patient. See progress note for specific locations and amounts administered. Given 10/14/2023 11:13 AM EST 200 Units Oth er Chief Complaint and Reason for Visit Chief Complaint DENTAL Chief Complaint Admit Date AMMON March 10, 2025 6:1 2am Additional Source Comments INFORMATION SOURCE (unrecogn ized section and content) DATE CREATED AUTHOR 09/06/2019 [facility] DATE CREATED AUTHOR AUTHOR'S ORGANIZ ATION 09/30/2019 [facility] DATE CREATED AUTHOR AUTHOR'S ORGANIZ ATION 06/16/2020 [facility] DATE CREATED AUTHOR AUTHOR'S ORGANIZ ATION 11/04/2020 [facility] DATE CREATED AUTHOR AUTHOR'S ORGANIZ ATION 01/04/2021 [facility] DATE CREATED AUTHOR AUTHOR'S ORGANIZ ATION 04/25/2021 [facility] DATE CREATED AUTHOR AUTHOR'S ORGANIZ ATION 09/25/2021 [facility] DATE CREATED AUTHOR AUTHOR'S ORGANIZ ATION 04/24/2022 [facility] DATE CREATED AUTHOR AUTHOR'S ORGANIZ ATION 03/18/2025 [facility] DATE CREATED AUTHOR AUTHOR'S ORGANIZ ATION 05/28/2025 [facility] DATE CREATED AUTHOR AUTHOR'S ORGANIZ ATION 07/06/2025 [facility] DATE CREATED AUTHOR AUTHOR'S ORGANIZ ATION 09/28/2025 [facility] DATE CREATED AUTHOR AUTHOR'S ORGANIZ ATION 10/03/2025 [facility] <item> Privacy Markings (unrecogniz ed section and content) Section Author: Ana Vang PROHIBITION ON REDISCLOSURE OF CONFIDENTIAL INFORMATION This notice accompanies a disclosure of information concerning a client made to you with the consent of such client. Source Comments (unrecognize d section and content) In the event this informatio n is protected by the Federal Confidentiality of Alcohol and Drug Abuse Patient Records regulations: The Federal rules restrict any use of the information to criminally investigate or prosecute any alcohol or drug abuse patient.[facility] the event this information is protected by the Federal Confidentiality of Alcohol and Drug Abuse Patient Records regulations: The Federal rules restrict any use of the information to criminally investigate or prosecute any alcohol or drug abuse patient.[facility] HospitalIn the event this information is protected by the Federal Confidentiality of Alcohol and Drug Abuse Patient Records regulations: The Federal rules restrict any use of the information to criminally investigate or prosecute any alcohol or drug abuse patient.[facility] HospitalIn the event this information is protected by the Federal Confidentiality of Alcohol and Drug Abuse Patient Records regulations: The Federal rules restrict any use of the information to criminally investigate or prosecute any alcohol or drug abuse patient.[facility] HospitalIn the event this information is protected by the Federal Confidentiality of Alcohol and Drug Abuse Patient Records regulations: The Federal rules restrict any use of the information to criminally investigate or prosecute any alcohol or drug abuse patient.[facility] HospitalIn the event this information is protected by the Federal Confidentiality of Alcohol and Drug Abuse Patient Records regulations: The Federal rules restrict any use of the information to criminally investigate or prosecute any alcohol or drug abuse patient.[facility] HospitalIn the event this information is protected by the Federal Confidentiality of Alcohol and Drug Abuse Patient Records regulations: The Federal rules restrict any use of the information to criminally investigate or prosecute any alcohol or drug abuse patient.[facility] HospitalIn the event this information is protected by the Federal Confidentiality of Alcohol and Drug Abuse Patient Records regulations: The Federal rules restrict any use of the information to criminally investigate or prosecute any alcohol or drug abuse patient.[facility] HospitalIn the event this information is protected by the Federal Confidentiality of Alcohol and Drug Abuse Patient Records regulations: The Federal rules restrict any use of the information to criminally investigate or prosecute any alcohol or drug abuse patient.[facility] HospitalIn the event this information is protected by the Federal Confidentiality of Alcohol and Drug Abuse Patient Records regulations: The Federal rules restrict any use of the information to criminally investigate or prosecute any alcohol or drug abuse patient.[facility] HospitalIn the event this information is protected by the Federal Confidentiality of Alcohol and Drug Abuse Patient Records regulations: The Federal rules restrict any use of the information to criminally investigate or prosecute any alcohol or drug abuse patient.[facility] HospitalIn the event this information is protected by the Federal Confidentiality of Alcohol and Drug Abuse Patient Records regulations: The Federal rules restrict any use of the information to criminally investigate or prosecute any alcohol or drug abuse patient.[facility] HospitalIn the event this information is protected by the Federal Confidentiality of Alcohol and Drug Abuse Patient Records regulations: The Federal rules restrict any use of the information to criminally investigate or prosecute any alcohol or drug abuse patient.[facility] HospitalIn the event this information is protected by the Federal Confidentiality of Alcohol and Drug Abuse Patient Records regulations: The Federal rules restrict any use of the information to criminally investigate or prosecute any alcohol or drug abuse patient.[facility] HospitalIn the event this information is protected by the Federal Confidentiality of Alcohol and Drug Abuse Patient Records regulations: The Federal rules restrict any use of the information to criminally investigate or prosecute any alcohol or drug abuse patient.[facility] HospitalIn the event this information is protected by the Federal Confidentiality of Alcohol and Drug Abuse Patient Records regulations: The Federal rules restrict any use of the information to criminally investigate or prosecute any alcohol or drug abuse patient.[facility] HospitalIn the event this information is protected by the Federal Confidentiality of Alcohol and Drug Abuse Patient Records regulations: The Federal rules restrict any use of the information to criminally investigate or prosecute any alcohol or drug abuse patient.[facility] HospitalIn the event this information is protected by the Federal Confidentiality of Alcohol and Drug Abuse Patient Records regulations: The Federal rules restrict any use of the information to criminally investigate or prosecute any alcohol or drug abuse patient.[facility] HospitalIn the event this information is protected by the Federal Confidentiality of Alcohol and Drug Abuse Patient Records regulations: The Federal rules restrict any use of the information to criminally investigate or prosecute any alcohol or drug abuse patient.[facility] HospitalIn the event this information is protected by the Federal Confidentiality of Alcohol and Drug Abuse Patient Records regulations: The Federal rules restrict any use of the information to criminally investigate or prosecute any alcohol or drug abuse patient.[facility] HospitalIn the event this information is protected by the Federal Confidentiality of Alcohol and Drug Abuse Patient Records regulations: The Federal rules restrict any use of the information to criminally investigate or prosecute any alcohol or drug abuse patient.[facility] HospitalIn the event this information is protected by the Federal Confidentiality of Alcohol and Drug Abuse Patient Records regulations: The Federal rules restrict any use of the information to criminally investigate or prosecute any alcohol or drug abuse patient.[facility] HospitalIn the event this information is protected by the Federal Confidentiality of Alcohol and Drug Abuse Patient Records regulations: The Federal rules restrict any use of the information to criminally investigate or prosecute any alcohol or drug abuse patient.[facility] HospitalIn the event this information is protected by the Federal Confidentiality of Alcohol and Drug Abuse Patient Records regulations: The Federal rules restrict any use of the information to criminally investigate or prosecute any alcohol or drug abuse patient.[facility] HospitalIn the event this information is protected by the Federal Confidentiality of Alcohol and Drug Abuse Patient Records regulations: The Federal rules restrict any use of the information to criminally investigate or prosecute any alcohol or drug abuse patient.[facility] HospitalIn the event this information is protected by the Federal Confidentiality of Alcohol and Drug Abuse Patient Records regulations: The Federal rules restrict any use of the information to criminally investigate or prosecute any alcohol or drug abuse patient.[facility] HospitalIn the event this information is protected by the Federal Confidentiality of Alcohol and Drug Abuse Patient Records regulations: The Federal rules restrict any use of the information to criminally investigate or prosecute any alcohol or drug abuse patient.[facility] HospitalIn the event this information is protected by the Federal Confidentiality of Alcohol and Drug Abuse Patient Records regulations: The Federal rules restrict any use of the information to criminally investigate or prosecute any alcohol or drug abuse patient.[facility] HospitalIn the event this information is protected by the Federal Confidentiality of Alcohol and Drug Abuse Patient Records regulations: The Federal rules restrict any use of the information to criminally investigate or prosecute any alcohol or drug abuse patient.[facility] HospitalIn the event this information is protected by the Federal Confidentiality of Alcohol and Drug Abuse Patient Records regulations: The Federal rules restrict any use of the information to criminally investigate or prosecute any alcohol or drug abuse patient.[facility] HospitalIn the event this information is protected by the Federal Confidentiality of Alcohol and Drug Abuse Patient Records regulations: The Federal rules restrict any use of the information to criminally investigate or prosecute any alcohol or drug abuse patient.[facility] HospitalIn the event this information is protected by the Federal Confidentiality of Alcohol and Drug Abuse Patient Records regulations: The Federal rules restrict any use of the information to criminally investigate or prosecute any alcohol or drug abuse patient.[facility] HospitalIn the event this information is protected by the Federal Confidentiality of Alcohol and Drug Abuse Patient Records regulations: The Federal rules restrict any use of the information to criminally investigate or prosecute any alcohol or drug abuse patient.[facility] HospitalIn the event this information is protected by the Federal Confidentiality of Alcohol and Drug Abuse Patient Records regulations: The Federal rules restrict any use of the information to criminally investigate or prosecute any alcohol or drug abuse patient.[facility] HospitalIn the event this information is protected by the Federal Confidentiality of Alcohol and Drug Abuse Patient Records regulations: The Federal rules restrict any use of the information to criminally investigate or prosecute any alcohol or drug abuse patient.[facility] HospitalIn the event this information is protected by the Federal Confidentiality of Alcohol and Drug Abuse Patient Records regulations: The Federal rules restrict any use of the information to criminally investigate or prosecute any alcohol or drug abuse patient.[facility] HospitalIn the event this information is protected by the Federal Confidentiality of Alcohol and Drug Abuse Patient Records regulations: The Federal rules restrict any use of the information to criminally investigate or prosecute any alcohol or drug abuse patient.[facility] HospitalIn the event this information is protected by the Federal Confidentiality of Alcohol and Drug Abuse Patient Records regulations: The Federal rules restrict any use of the information to criminally investigate or prosecute any alcohol or drug abuse patient.[facility] HospitalIn the event this information is protected by the Federal Confidentiality of Alcohol and Drug Abuse Patient Records regulations: The Federal rules restrict any use of the information to criminally investigate or prosecute any alcohol or drug abuse patient.[facility] HospitalIn the event this information is protected by the Federal Confidentiality of Alcohol and Drug Abuse Patient Records regulations: The Federal rules restrict any use of the information to criminally investigate or prosecute any alcohol or drug abuse patient.[facility] HospitalIn the event this information is protected by the Federal Confidentiality of Alcohol and Drug Abuse Patient Records regulations: The Federal rules restrict any use of the information to criminally investigate or prosecute any alcohol or drug abuse patient.[facility] HospitalIn the event this information is protected by the Federal Confidentiality of Alcohol and Drug Abuse Patient Records regulations: The Federal rules restrict any use of the information to criminally investigate or prosecute any alcohol or drug abuse patient.[facility] HospitalIn the event this information is protected by the Federal Confidentiality of Alcohol and Drug Abuse Patient Records regulations: The Federal rules restrict any use of the information to criminally investigate or prosecute any alcohol or drug abuse patient.[facility] HospitalIn the event this information is protected by the Federal Confidentiality of Alcohol and Drug Abuse Patient Records regulations: The Federal rules restrict any use of the information to criminally investigate or prosecute any alcohol or drug abuse patient.[facility] HospitalIn the event this information is protected by the Federal Confidentiality of Alcohol and Drug Abuse Patient Records regulations: The Federal rules restrict any use of the information to criminally investigate or prosecute any alcohol or drug abuse patient.[facility] HospitalIn the event this information is protected by the Federal Confidentiality of Alcohol and Drug Abuse Patient Records regulations: The Federal rules restrict any use of the information to criminally investigate or prosecute any alcohol or drug abuse patient.[facility] HospitalIn the event this information is protected by the Federal Confidentiality of Alcohol and Drug Abuse Patient Records regulations: The Federal rules restrict any use of the information to criminally investigate or prosecute any alcohol or drug abuse patient.[facility] HospitalIn the event this information is protected by the Federal Confidentiality of Alcohol and Drug Abuse Patient Records regulations: The Federal rules restrict any use of the information to criminally investigate or prosecute any alcohol or drug abuse patient.[facility] HospitalIn the event this information is protected by the Federal Confidentiality of Alcohol and Drug Abuse Patient Records regulations: The Federal rules restrict any use of the information to criminally investigate or prosecute any alcohol or drug abuse patient.[facility] HospitalIn the event this information is protected by the Federal Confidentiality of Alcohol and Drug Abuse Patient Records regulations: The Federal rules restrict any use of the information to criminally investigate or prosecute any alcohol or drug abuse patient.[facility] HospitalIn the event this information is protected by the Federal Confidentiality of Alcohol and Drug Abuse Patient Records regulations: The Federal rules restrict any use of the information to criminally investigate or prosecute any alcohol or drug abuse patient.[facility] HospitalIn the event this information is protected by the Federal Confidentiality of Alcohol and Drug Abuse Patient Records regulations: The Federal rules restrict any use of the information to criminally investigate or prosecute any alcohol or drug abuse patient.[facility] HospitalIn the event this information is protected by the Federal Confidentiality of Alcohol and Drug Abuse Patient Records regulations: The Federal rules restrict any use of the information to criminally investigate or prosecute any alcohol or drug abuse patient.[facility] HospitalIn the event this information is protected by the Federal Confidentiality of Alcohol and Drug Abuse Patient Records regulations: The Federal rules restrict any use of the information to criminally investigate or prosecute any alcohol or drug abuse patient.[facility] HospitalIn the event this information is protected by the Federal Confidentiality of Alcohol and Drug Abuse Patient Records regulations: The Federal rules restrict any use of the information to criminally investigate or prosecute any alcohol or drug abuse patient.[facility] HospitalIn the event this information is protected by the Federal Confidentiality of Alcohol and Drug Abuse Patient Records regulations: The Federal rules restrict any use of the information to criminally investigate or prosecute any alcohol or drug abuse patient.[facility] HospitalIn the event this information is protected by the Federal Confidentiality of Alcohol and Drug Abuse Patient Records regulations: The Federal rules restrict any use of the information to criminally investigate or prosecute any alcohol or drug abuse patient.[facility] HospitalIn the event this information is protected by the Federal Confidentiality of Alcohol and Drug Abuse Patient Records regulations: The Federal rules restrict any use of the information to criminally investigate or prosecute any alcohol or drug abuse patient.[facility] HospitalIn the event this information is protected by the Federal Confidentiality of Alcohol and Drug Abuse Patient Records regulations: The Federal rules restrict any use of the information to criminally investigate or prosecute any alcohol or drug abuse patient.[facility] HospitalIn the event this information is protected by the Federal Confidentiality of Alcohol and Drug Abuse Patient Records regulations: The Federal rules restrict any use of the information to criminally investigate or prosecute any alcohol or drug abuse patient.[facility] HospitalIn the event this information is protected by the Federal Confidentiality of Alcohol and Drug Abuse Patient Records regulations: The Federal rules restrict any use of the information to criminally investigate or prosecute any alcohol or drug abuse patient.[facility] HospitalIn the event this information is protected by the Federal Confidentiality of Alcohol and Drug Abuse Patient Records regulations: The Federal rules restrict any use of the information to criminally investigate or prosecute any alcohol or drug abuse patient.[facility] HospitalIn the event this information is protected by the Federal Confidentiality of Alcohol and Drug Abuse Patient Records regulations: The Federal rules restrict any use of the information to criminally investigate or prosecute any alcohol or drug abuse patient.[facility] HospitalIn the event this information is protected by the Federal Confidentiality of Alcohol and Drug Abuse Patient Records regulations: The Federal rules restrict any use of the information to criminally investigate or prosecute any alcohol or drug abuse patient.[facility] HospitalIn the event this information is protected by the Federal Confidentiality of Alcohol and Drug Abuse Patient Records regulations: The Federal rules restrict any use of the information to criminally investigate or prosecute any alcohol or drug abuse patient.[facility] HospitalIn the event this information is protected by the Federal Confidentiality of Alcohol and Drug Abuse Patient Records regulations: The Federal rules restrict any use of the information to criminally investigate or prosecute any alcohol or drug abuse patient.[facility] HospitalIn the event this information is protected by the Federal Confidentiality of Alcohol and Drug Abuse Patient Records regulations: The Federal rules restrict any use of the information to criminally investigate or prosecute any alcohol or drug abuse patient.[facility] HospitalIn the event this information is protected by the Federal Confidentiality of Alcohol and Drug Abuse Patient Records regulations: The Federal rules restrict any use of the information to criminally investigate or prosecute any alcohol or drug abuse patient.[facility] HospitalIn the event this information is protected by the Federal Confidentiality of Alcohol and Drug Abuse Patient Records regulations: The Federal rules restrict any use of the information to criminally investigate or prosecute any alcohol or drug abuse patient.[facility] HospitalIn the event this information is protected by the Federal Confidentiality of Alcohol and Drug Abuse Patient Records regulations: The Federal rules restrict any use of the information to criminally investigate or prosecute any alcohol or drug abuse patient.[facility] HospitalIn the event this information is protected by the Federal Confidentiality of Alcohol and Drug Abuse Patient Records regulations: The Federal rules restrict any use of the information to criminally investigate or prosecute any alcohol or drug abuse patient.[facility] HospitalIn the event this information is protected by the Federal Confidentiality of Alcohol and Drug Abuse Patient Records regulations: The Federal rules restrict any use of the information to criminally investigate or prosecute any alcohol or drug abuse patient.[facility] HospitalIn the event this information is protected by the Federal Confidentiality of Alcohol and Drug Abuse Patient Records regulations: The Federal rules restrict any use of the information to criminally investigate or prosecute any alcohol or drug abuse patient.[facility] HospitalIn the event this information is protected by the Federal Confidentiality of Alcohol and Drug Abuse Patient Records regulations: The Federal rules restrict any use of the information to criminally investigate or prosecute any alcohol or drug abuse patient.[facility] HospitalIn the event this information is protected by the Federal Confidentiality of Alcohol and Drug Abuse Patient Records regulations: The Federal rules restrict any use of the information to criminally investigate or prosecute any alcohol or drug abuse patient.[facility] HospitalIn the event this information is protected by the Federal Confidentiality of Alcohol and Drug Abuse Patient Records regulations: The Federal rules restrict any use of the information to criminally investigate or prosecute any alcohol or drug abuse patient.[facility] HospitalIn the event this information is protected by the Federal Confidentiality of Alcohol and Drug Abuse Patient Records regulations: The Federal rules restrict any use of the information to criminally investigate or prosecute any alcohol or drug abuse patient.[facility] HospitalIn the event this information is protected by the Federal Confidentiality of Alcohol and Drug Abuse Patient Records regulations: The Federal rules restrict any use of the information to criminally investigate or prosecute any alcohol or drug abuse patient.[facility] HospitalIn the event this information is protected by the Federal Confidentiality of Alcohol and Drug Abuse Patient Records regulations: The Federal rules restrict any use of the information to criminally investigate or prosecute any alcohol or drug abuse patient.[facility] HospitalIn the event this information is protected by the Federal Confidentiality of Alcohol and Drug Abuse Patient Records regulations: The Federal rules restrict any use of the information to criminally investigate or prosecute any alcohol or drug abuse patient.[facility] HospitalIn the event this information is protected by the Federal Confidentiality of Alcohol and Drug Abuse Patient Records regulations: The Federal rules restrict any use of the information to criminally investigate or prosecute any alcohol or drug abuse patient.[facility] HospitalIn the event this information is protected by the Federal Confidentiality of Alcohol and Drug Abuse Patient Records regulations: The Federal rules restrict any use of the information to criminally investigate or prosecute any alcohol or drug abuse patient.[facility] HospitalIn the event this information is protected by the Federal Confidentiality of Alcohol and Drug Abuse Patient Records regulations: The Federal rules restrict any use of the information to criminally investigate or prosecute any alcohol or drug abuse patient.[facility] HospitalIn the event this information is protected by the Federal Confidentiality of Alcohol and Drug Abuse Patient Records regulations: The Federal rules restrict any use of the information to criminally investigate or prosecute any alcohol or drug abuse patient.[facility] HospitalIn the event this information is protected by the Federal Confidentiality of Alcohol and Drug Abuse Patient Records regulations: The Federal rules restrict any use of the information to criminally investigate or prosecute any alcohol or drug abuse patient.[facility] HospitalIn the event this information is protected by the Federal Confidentiality of Alcohol and Drug Abuse Patient Records regulations: The Federal rules restrict any use of the information to criminally investigate or prosecute any alcohol or drug abuse patient.[facility] HospitalIn the event this information is protected by the Federal Confidentiality of Alcohol and Drug Abuse Patient Records regulations: The Federal rules restrict any use of the information to criminally investigate or prosecute any alcohol or drug abuse patient.[facility] HospitalIn the event this information is protected by the Federal Confidentiality of Alcohol and Drug Abuse Patient Records regulations: The Federal rules restrict any use of the information to criminally investigate or prosecute any alcohol or drug abuse patient.[facility] HospitalIn the event this information is protected by the Federal Confidentiality of Alcohol and Drug Abuse Patient Records regulations: The Federal rules restrict any use of the information to criminally investigate or prosecute any alcohol or drug abuse patient.[facility] HospitalIn the event this information is protected by the Federal Confidentiality of Alcohol and Drug Abuse Patient Records regulations: The Federal rules restrict any use of the information to criminally investigate or prosecute any alcohol or drug abuse patient.[facility] HospitalIn the event this information is protected by the Federal Confidentiality of Alcohol and Drug Abuse Patient Records regulations: The Federal rules restrict any use of the information to criminally investigate or prosecute any alcohol or drug abuse patient.[facility] HospitalIn the event this information is protected by the Federal Confidentiality of Alcohol and Drug Abuse Patient Records regulations: The Federal rules restrict any use of the information to criminally investigate or prosecute any alcohol or drug abuse patient.[facility] HospitalIn the event this information is protected by the Federal Confidentiality of Alcohol and Drug Abuse Patient Records regulations: The Federal rules restrict any use of the information to criminally investigate or prosecute any alcohol or drug abuse patient.[facility] HospitalIn the event this information is protected by the Federal Confidentiality of Alcohol and Drug Abuse Patient Records regulations: The Federal rules restrict any use of the information to criminally investigate or prosecute any alcohol or drug abuse patient.[facility] HospitalIn the event this information is protected by the Federal Confidentiality of Alcohol and Drug Abuse Patient Records regulations: The Federal rules restrict any use of the information to criminally investigate or prosecute any alcohol or drug abuse patient.[facility] HospitalIn the event this information is protected by the Federal Confidentiality of Alcohol and Drug Abuse Patient Records regulations: The Federal rules restrict any use of the information to criminally investigate or prosecute any alcohol or drug abuse patient.[facility] HospitalIn the event this information is protected by the Federal Confidentiality of Alcohol and Drug Abuse Patient Records regulations: The Federal rules restrict any use of the information to criminally investigate or prosecute any alcohol or drug abuse patient.[facility] HospitalIn the event this information is protected by the Federal Confidentiality of Alcohol and Drug Abuse Patient Records regulations: The Federal rules restrict any use of the information to criminally investigate or prosecute any alcohol or drug abuse patient.[facility] HospitalIn the event this information is protected by the Federal Confidentiality of Alcohol and Drug Abuse Patient Records regulations: The Federal rules restrict any use of the information to criminally investigate or prosecute any alcohol or drug abuse patient.[facility] HospitalIn the event this information is protected by the Federal Confidentiality of Alcohol and Drug Abuse Patient Records regulations: The Federal rules restrict any use of the information to criminally investigate or prosecute any alcohol or drug abuse patient.[facility] HospitalIn the event this information is protected by the Federal Confidentiality of Alcohol and Drug Abuse Patient Records regulations: The Federal rules restrict any use of the information to criminally investigate or prosecute any alcohol or drug abuse patient.[facility] HospitalIn the event this information is protected by the Federal Confidentiality of Alcohol and Drug Abuse Patient Records regulations: The Federal rules restrict any use of the information to criminally investigate or prosecute any alcohol or drug abuse patient.[facility] HospitalIn the event this information is protected by the Federal Confidentiality of Alcohol and Drug Abuse Patient Records regulations: The Federal rules restrict any use of the information to criminally investigate or prosecute any alcohol or drug abuse patient.[facility] HospitalIn the event this information is protected by the Federal Confidentiality of Alcohol and Drug Abuse Patient Records regulations: The Federal rules restrict any use of the information to criminally investigate or prosecute any alcohol or drug abuse patient.[facility] HospitalIn the event this information is protected by the Federal Confidentiality of Alcohol and Drug Abuse Patient Records regulations: The Federal rules restrict any use of the information to criminally investigate or prosecute any alcohol or drug abuse patient.[facility] HospitalIn the event this information is protected by the Federal Confidentiality of Alcohol and Drug Abuse Patient Records regulations: The Federal rules restrict any use of the information to criminally investigate or prosecute any alcohol or drug abuse patient.[facility] HospitalIn the event this information is protected by the Federal Confidentiality of Alcohol and Drug Abuse Patient Records regulations: The Federal rules restrict any use of the information to criminally investigate or prosecute any alcohol or drug abuse patient.[facility] HospitalIn the event this information is protected by the Federal Confidentiality of Alcohol and Drug Abuse Patient Records regulations: The Federal rules restrict any use of the information to criminally investigate or prosecute any alcohol or drug abuse patient.[facility] HospitalIn the event this information is protected by the Federal Confidentiality of Alcohol and Drug Abuse Patient Records regulations: The Federal rules restrict any use of the information to criminally investigate or prosecute any alcohol or drug abuse patient.[facility] HospitalIn the event this information is protected by the Federal Confidentiality of Alcohol and Drug Abuse Patient Records regulations: The Federal rules restrict any use of the information to criminally investigate or prosecute any alcohol or drug abuse patient.[facility] HospitalIn the event this information is protected by the Federal Confidentiality of Alcohol and Drug Abuse Patient Records regulations: The Federal rules restrict any use of the information to criminally investigate or prosecute any alcohol or drug abuse patient.[facility] HospitalIn the event this information is protected by the Federal Confidentiality of Alcohol and Drug Abuse Patient Records regulations: The Federal rules restrict any use of the information to criminally investigate or prosecute any alcohol or drug abuse patient.[facility] HospitalIn the event this information is protected by the Federal Confidentiality of Alcohol and Drug Abuse Patient Records regulations: The Federal rules restrict any use of the information to criminally investigate or prosecute any alcohol or drug abuse patient.[facility] HospitalIn the event this information is protected by the Federal Confidentiality of Alcohol and Drug Abuse Patient Records regulations: The Federal rules restrict any use of the information to criminally investigate or prosecute any alcohol or drug abuse patient.[facility] Reason for Visit (unrecogniz ed section and content) Reason Comments pain of concern Reason Comments Care Reason Comments US Specialty Diagnoses / Procedures Referred By Contac t Referred To Contact [facility] Diagnoses Encounter for anatomic survey 16 weeks gestation of Medication exposure during first trimester of Procedures OBSTETRIC ULTRASOUND WHI US PREG UTERUS AFTER 1ST [place] [address] [facility] [address] [place] [id number] [facility] [address] [place] [address] Referral ID Status Reason Start Date Expiration Date V isits Requested Visits Authorized [id number] Closed Auto-Generate d Referral 02/11/2022 02/11/2023 1 1 Reason Onset Date Comments Returning Patient's Call 03/16/2022 Reason Comments Pain, Back Reason Comments Care Reason Comments Results Reason Comments Results Specialty Diagnoses / Procedures Referred By Contac t Referred To Contact Diagnoses Gestational diabetes mellitus, class A1 Procedures CONSULT TO GESTATIONAL/ SKILLED LABOR OFFICE/OUTPATIENT [facility] 60-74 MINUTES Shalonda Krause APRN.CNM [address] [place] [address] Referral ID Status Reason Start Date Expiration Date V isits Requested Visits Authorized [id number] Closed PCP Requested Referral Auto-Generated Referral 05/13/2022 05/13/2023 1 1 Reason Comments New GDM Specialty Diagnoses / Procedures Referred By Contac t Referred To Contact Endocrinology Diagnoses Gestational diabetes mellitus (GDM) affecting second Procedures CONSULT TO ENDOCRINOLOGY OFFICE/OUTPATIENT [facility] 60-74 MINUTES Anny He APRN.CNCaleb [address] [place] [address] Referral ID Status Reason Start Date Expiration Date V isits Requested Visits Authorized [id number] Closed PCP Requested Referral 05/25/2022 05/25/2023 1 1 Reason Comments Medical Nutrition Therapy GDM Specialty Diagnoses / Procedures Referred By Contac t Referred To Contact Diagnoses Diet controlled gestational diabetes mellitus (GDM) in third trimester Procedures CONSULT TO DIABETES EDUCATION OFFICE/OUTPATIENT NEW HIGH MDM 60-74 MINUTES Vincent Ocampo, [address] [place] [address] Referral ID Status Reason Start Date Expiration Date V isits Requested Visits Authorized [id number] Closed PCP Requested Referral 06/03/2022 06/03/2023 1 1 Reason Comments vag pain Reason Comments Care Vaginal Problem Reason Comments Follow Up Reason Comments Appointment Reason Comments Migraine Reason Comments Routine Patient is here for her 6 week post visit. Reason Comments UTI Reason Comments Follow Up Reason Onset Date Comments Refill Request 11/27/2022 Reason Comments Follow Up Reason Comments Ear Pain Cant hear, hurts renetta n to jaw, right ear x 6 hrs, projectile vomited x 2 this AM Reason Comments Bipolar Disorder Anxiety Follow Up Reason Comments Ear Pain Rt ear,still can't h ear x5 days,Lt ear x2 days Reason Comments Establish Care Mole on upper back/c ouple month,fluid ozzing out/painful/level 5 Reason Onset Date Comments Behavioral Health Outreach 02/19/2023 Reason Comments Individual Counseling Reason Onset Date Comments Refill Request 05/23/2023 Reason Comments Bipolar Disorder Follow Up Reason Comments Sinus Problem Reason Comments Follow Up Client to speak with nurse and provider for follow up appointment and medication management. Reason Comments UTI Hurts and stearns whil e urinating x 1 day Reason Comments Botox Injection Specialty Diagnoses / Procedures Referred By Contac t Referred To Contact [facility] Diagnoses Chronic migraine without aura, intractable, without status migrainosus Procedures BOTULINUM TOXIN A PER 1 UNIT CHEMODERVATE FACIAL/TRIGEM/CERV MUSC MIGRAINE Initial due 06/09/2023 Botox 200 units every 12 weeks for 1 year through [facility] buy and bill Preempt protocol [id number] Procedure -[id number] chemodervate facial/trigem/cerv musc migraine Jaja Moss, [employer] OPERATOR [address] [place] [address] Neur Headache Main [address] [place] [address] Referral ID Status Reason Start Date Expiration Date V isits Requested Visits Authorized [id number] Authorized 06/11/2023 06/10/2024 5 5 Reason Comments Psychiatric Med Management Reason Comments Ear Pain R ear pain X 2-3 day s Reason Onset Date Comments Missed Appointment 09/24/2023 Reason Comments UTI Bloody urine, burnin g x 12 hrs Ear Pain Right ear, here 08/24 3 drops didn't help Reason Onset Date Comments Population Health Navigation Outreach 10/23/2023 Maile Beaver MD offboarding Reason Comments Medication Management Bipolar Disorder Follow Up Reason Comments Radiology XR Specialty Diagnoses / Procedures Referred By Contac t Referred To Contact XR IMAGING Diagnoses Injury of left hand, initial encounter Procedures XR HAND GENERAL 3V PA/LAT/OBL LEFT RADEX HAND MINIMUM 3 VIEWS Tia Bowen, MACHINE WOODWORKING SANDER.CAGER OPERATOR [address] [place] [address] [place] [address] Referral ID Status Reason Start Date Expiration Date V isits Requested Visits Authorized [id number] Closed Auto-Generate d Referral 12/28/2023 01/26/2025 1 1 Reason Comments Hand Injury Left hand injury. Pa tient fell the stairs and injured left hand its bruised and swollen from the side next to the pinky and pain goes up to wrist. Reason Comments Follow Up 5th met fx 2/5 XR Fracture 5th met fx 2/5 XR Specialty Diagnoses / Procedures Referred By Contac t Referred To Contact Orthopedics Diagnoses Closed nondisplaced fracture of shaft of fifth metacarpal bone of left hand, initial encounter Procedures CONSULT PANEL TO ORTHOPAEDICS OFFICE/OUTPATIENT [facility] 60 MINUTES Tia Bowen, MACHINE WOODWORKING SANDER.CAGER OPERATOR [address] [place] [address] Referral ID Status Reason Start Date Expiration Date V isits Requested Visits Authorized [id number] Closed PCP Requested Referral 12/28/2023 12/27/2024 1 1 Reason Comments Radio Gen RMP Specialty Diagnoses / Procedures Referred By Contac t Referred To Contact XR IMAGING Diagnoses Closed nondisplaced fracture of shaft of fifth metacarpal bone of left hand, initial encounter Procedures XR HAND GENERAL 3V PA/LAT/OBL LEFT RADEX HAND MINIMUM 3 VIEWS Gabriela Andrade PA-C [id number] [place] [address] [place] [address] Referral ID Status Reason Start Date Expiration Date V isits Requested Visits Authorized [id number] Closed Auto-Generate d Referral 01/01/2024 01/30/2025 1 1 Reason Comments Botox Injection Specialty Diagnoses / Procedures Referred By Contac t Referred To Contact HEADACHE Diagnoses Chronic migraine without aura, intractable, without status migrainosus Procedures BOTULINUM TOXIN A PER 1 UNIT CHEMODERVATE FACIAL/TRIGEM/CERV MUSC MIGRAINE Initial due 06/09/2023 Botox 200 units every 12 weeks for 1 year through [facility] buy and bill Preempt protocol [id number] Procedure -28402 chemodervate facial/trigem/cerv musc migraine Jaja Moss, MACHINE WOODWORKING SANDER.CAGER OPERATOR [address] [id number] Neur Headache [address] [place] [address] Reason Comments Missed Appointment Missed scheduled RN visit Reason Comments Established Patient Follow Up Fracture Pain Reason Comments Radiology XR Specialty Diagnoses / Procedures Referred By Eduardo t Referred To Contact XR IMAGING Diagnoses Pain Procedures XR HAND GENERAL 3V PA/LAT/OBL LEFT RADEX HAND MINIMUM 3 VIEWS Gabriela Andrade PA-C [address] [place] [address] [place] [address] Referral ID Status Reason Start Date Expiration Date V isits Requested Visits Authorized [id number] Closed Auto-Generate d Referral 01/01/2024 01/30/2025 1 1 Reason Comments Follow Up Interim visit Reason Comments Opened In Error Reason Comments Insurance Authorization [facility] Reason Comments Psychiatric Med Management Reason Comments Missed Appointment Reason Comments New Pain Swelling Reason Comments Referral Request Reason Comments Established Patient Follow Up Pain Swelling Reason Onset Date Comments Behavioral Health Outreach 06/01/2024 Reason Comments Medication Management Reason Onset Date Comments Missed Appointment 06/21/2024 Specialty Diagnoses / Procedures Referred By Contac t Referred To Contact HEADACHE Diagnoses Chronic migraine without aura, intractable, without status migrainosus Procedures BOTULINUM TOXIN A PER 1 UNIT CHEMODERVATE FACIAL/TRIGEM/CERV MUSC MIGRAINE Botox renewal due 06/04/24 Botox 200 units every 12 weeks for 1 year through [facility] buy and bill Preempt protocol [id number] Procedure -[id number] chemodervate facial/trigem/cerv musc migraine Dakota Guzman, MACHINE WOODWORKING SANDER.CAGER OPERATOR [address] [place] [address] Neur Headache Main [address] [id number] Referral ID Status Reason Start Date Expiration Date V isits Requested Visits Authorized [id number] Authorized 06/08/2024 06/07/2025 4 4 Reason Comments Ear Pain Left ear pain x 2 da ys Reason Comments Sinus Problem X 1 week Facial/sinu s area feels congested, feels occasionally light headed and dizzy. No cough or fever Reason Comments Vaginal Problem Was here 08/19/2024 a nd was better from medications now back itchy and painful with white discharge no odor Reason Comments Vaginal Problem Swelling, pain and i tching x 2 days, no odor Reason Comments Pain Left hand pain, slam med hand inside car door x 30 mins Specialty Diagnoses / Procedures Referred By Contac t Referred To Contact HEADACHE Diagnoses Chronic migraine without aura, intractable, without status migrainosus Procedures BOTULINUM TOXIN A PER 1 UNIT CHEMODERVATE FACIAL/TRIGEM/CERV MUSC MIGRAINE Botox renewal due 06/04/24 Botox 200 units every 12 weeks for 1 year through [facility] buy and bill Preempt protocol [id number] Procedure -[id number] chemodervate facial/trigem/cerv musc migraine Dakota Guzman, MACHINE WOODWORKING SANDER.CAGER OPERATOR [address] [place] [address] Neur Headache Main [address] [id number] Reason Comments Insurance Authorization Ubrelvy 100MG ta blets Ubrelvy 100MG tablets Reason Onset Date Comments Behavioral Health Outreach 10/06/2024 Reason Onset Date Comments Behavioral Health Outreach 10/11/2024 Reason Comments Vaginal Problem Concerns with possib le yeast infection and BV, vaginal itching with discharge Reason Comments ED Follow-up Reason Comments Mass Reason Comments Breast Problem Reason Comments Cellulitis Reason Comments Rash Reason Comments New Patient Reason Comments Radiology Mammogram Specialty Diagnoses / Procedures Referred By Eduardo garcia Referred To Contact BR IMAGING Diagnoses Breast lesion Procedures US BREAST LTD LEFT US BREAST UNI REAL TIME WITH IMAGE LIMITED Everett Cruz MD [address] [place] [address] Phone: tel: fax: [facility] [address] [place] [address] Referral ID Status Reason Start Date Expiration Date V isits Requested Visits Authorized [id number] Closed Auto-Generate d Referral 01/31/2025 03/02/2026 1 1 Reason Comments Case Management Reason Comments Follow Up Client needs to sign JATINDER for [facility] Reason Comments Radiology US Reason Comments Student Support Counselor - Other Reason Comments Difficulty Swallowing Reason Comments Botox Injection Patient presents say ing, "My rescue medication doesn't work." Specialty Diagnoses / Procedures Referred By Eduardo garcia Referred To Contact HEADACHE Diagnoses Chronic migraine without aura, intractable, without status migrainosus Procedures BOTULINUM TOXIN A PER 1 UNIT CHEMODERVATE FACIAL/TRIGEM/CERV MUSC MIGRAINE Botox renewal due 06/04/24 Botox 200 units every 12 weeks for 1 year through [facility] buy and bill Preempt protocol [id number] Procedure -16998 chemodervate facial/trigem/cerv musc migraine Dakota Guzman, MACHINE WOODWORKING SANDER.CAGER OPERATOR [address] [place] [address] Phone: tel: fax: Neurology [address] [place] [address] Phone: tel: fax: Referral ID Status Reason Start Date Expiration Date Visits Re quested Visits Authorized [id number] Closed 06/08/2024 06/07/2025 4 4 Reason Comments UTI Dysuria, vaginal itc adan and discharge, hematuria x4 days, BV/yeast Reason Onset Date Comments Results 04/20/2025 Reason Onset Date Comments Behavioral Health Outreach 05/02/2025 Reason Onset Date Comments 05/18/2025 Specialty Diagnoses / Procedures Referred By Eduardo garcia Referred To Contact HEADACHE Diagnoses Chronic migraine without aura, intractable, without status migrainosus Procedures CHEMODERVATE FACIAL/TRIGEM/CERV MUSC MIGRAINE BOTULINUM TOXIN A PER 1 UNIT Initial Botox 200u every 12 weeks x 1 year preempt protocol Jaja Moss APRN.CAGER OPERATOR [address] [place] [address] Phone: tel: fax: Neurology [address] [place] [address] Phone: tel: fax: Referral ID Status Reason Start Date Expiration Date V isits Requested Visits Authorized [id number] Authorized 06/14/2025 06/14/2026 2 2 Reason Comments Individual Counseling Reason Comments Case Management Discharge Goals (unrecognized section and content) Goals may be documented in a n alternate sectionGoals may be documented in an alternate section Care Teams (unrecognized sec tion and content) Space Buyer Relationship Specialty Start Date End Date Maile Beaver MD [address] [place] [address] PCP - General Internal Medicine 01/27/23 Space Buyer Relationship Specialty Start Date End Date Maile Beaver MD [address] [phone] PCP - General Internal Medicine 01/27/23 Space Buyer Relationship Specialty Start Date End Date Maile Beaver MD [address] [phone] PCP - General Internal Medicine 01/27/23 Space Buyer Relationship Specialty Start Date End Date Maile Beaver MD [address] [place], [place] [id number] PCP - General Internal Medicine 01/27/23 Space Buyer Relationship Specialty Start Date End Date Maile Beaver MD [address] [place] [address] PCP - General Internal Medicine 01/27/23 Space Buyer Relationship Specialty Start Date End Date Maile Beaver MD [address] [facility] [place] [address] PCP - General Internal Medicine 01/27/23 Space Buyer Relationship Specialty Start Date End Date Maile Beaver MD [address] [facility] [place] [address] PCP - General Internal Medicine 01/27/23 Space Buyer Relationship Specialty Start Date End Date Maile Beaver MD [address] [place] [address] PCP - General Internal Medicine 01/27/23 Space Buyer Relationship Specialty Start Date End Date Maile Beaver MD [address] [place] [address] PCP - General Internal Medicine 01/27/23 Space Buyer Relationship Specialty Start Date End Date Maile Beaver MD [address] [place] [address] PCP - General Internal Medicine 01/27/23 Space Buyer Relationship Specialty Start Date End Date Maile Beaver MD [address] [place] [address] PCP - General Internal Medicine 01/27/23 Space Buyer Relationship Specialty Start Date End Date Maile Beaver MD [address] [place] [address] PCP - General Internal Medicine 01/27/23 Space Buyer Relationship Specialty Start Date End Date Maile Beaver MD [address] [facility] [place] [address] PCP - General Internal Medicine 01/27/23 Space Buyer Relationship Specialty Start Date End Date Maile Beaver MD [address] [place] [address] PCP - General Internal Medicine 01/27/23 Space Buyer Relationship Specialty Start Date End Date Maile Beaver MD [address] [place] [address] PCP - General Internal Medicine 01/27/23 Space Buyer Relationship Specialty Start Date End Date Maile Beaver MD [address] [place] [address] PCP - General Internal Medicine 01/27/23 Space Buyer Relationship Specialty Start Date End Date Maile Beaver MD [address] [place] [address] PCP - General Internal Medicine 01/27/23 Space Buyer Relationship Specialty Start Date End Date Maile Beaver MD [address] [place] [address] PCP - General Internal Medicine 01/27/23 Space Buyer Relationship Specialty Start Date End Date Maile Beaver MD [address] [place] [address] PCP - General Internal Medicine 01/27/23 Space Buyer Relationship Specialty Start Date End Date Maile Beaver MD [address] [place] [address] PCP - General Internal Medicine 01/27/23 Space Buyer Relationship Specialty Start Date End Date Maile Beaver MD [address] [place] [address] PCP - General Internal Medicine 01/27/23 Space Buyer Relationship Specialty Start Date End Date Maile Beaver MD [address] [place] [address] PCP - General Internal Medicine 01/27/23 Space Buyer Relationship Specialty Start Date End Date Maile Beaver MD [address] [place] [address] PCP - General Internal Medicine 01/27/23 Space Buyer Relationship Specialty Start Date End Date Maile Beaver MD [address] [place] [address] PCP - General Internal Medicine 01/27/23 Space Buyer Relationship Specialty Start Date End Date Maile Beaver MD [address] [place] [address] PCP - General Internal Medicine 01/27/23 Team Status: Active Member Role Status Dates No Primary Care Physician Primary Care Provider Active Team Status: Inactive Member Role Status Dates No Primary Care Physician Primary Care Provider Active Start: March 10, 2025 End: March 10, 2025 Dr. Araseli Babb , Emergency Provider Active Start: March 10, 2025 End: March 10, 2025 FOR RECORDS PERTAINING TO PATIENTS WHO ARE OR HAVE BEEN ENROLLED IN A CHEMICAL DEPENDENCY/SUBSTANCEABUSE PROGRAM, SOME INFORMATION MAY BE OMITTED. This clinical summary was aggregated from multiple sources. Caution should be exercised in using it in the provision of clinical care. This summary normalizes information from multiple sources, and as a consequence, information in this document may materially change the coding, format and clinical context of patient data. In addition, data may be omitted in some cases. CLINICAL DECISIONS SHOULD BE BASED ON THE PRIMARY CLINICAL RECORDS. [facility] [employer] provides no warranty or guarantee of the accuracy or completeness of information in this document.
[2025-10-03 19:53] VITALS: RESP 17; O2SAT 98
== END 2025-10-03 19:53 | disposition home or self-care (01) ==
LOC: ED 19:38
PROVIDERS: Emergency Provider Emergency Medicine; Visit Provider Emergency Medicine
DX: K08.89 Other specified disorders of teeth and supporting structures (principal)
CPT/HCPCS: 99283

== ENCOUNTER 2025-11-11 13:01 | Emergency (ER) | payer MEDICAID, SELFPAY ==
[2025-11-11 13:02] VITALS: BP 135/86; PULSE 84; RESP 18; TEMP 36.6; O2SAT 98; BMI 37.7
--- NOTE | 2025-11-11 13:20 | ED.VIS.FEGU ---
HPI HPI - Female History of Present Illness Chief Complaint: Female C/O Detail of Chief Complaint: Concern for breast infection Informant: patient Narrative Narrative: Patient presents with concern for infection to her left breast. Patient states that she had nipple rings placed about a year ago and since then she has had infections to her breast. She started with blood from her left nipple 3 days ago. She removed the nipple ring. Over last 2 days she has had fever up to 102. She is concerned about some redness to the breast. [facility] Medical History Bipolar disorder Gestational diabetes delivery delivered Breast abscess Home Medications ?Medication ?Instructions ?Recorded ?Last Taken ?Type epinephrine 0.3 mg/0.3 mL 0.3 ml IM PRN anaphylaxis 03/10/25 Unknown History injection, auto-injector escitalopram oxalate 20 mg tablet 20 mg PO DAILY 03/10/25 Unknown History lamotrigine 200 mg tablet 200 mg PO DAILY 03/10/25 Unknown History risperidone 0.5 mg tablet 0.5 mg PO QHS 03/10/25 Unknown History amoxicillin 875 mg-potassium 1 tab PO BID 7 days #14 tabs 09/27/25 Unknown Rx clavulanate 125 mg tablet divalproex 500 mg tablet,extended 2,000 mg PO QPM 09/27/25 Unknown History release 24 hr oxycodone-acetaminophen 5 mg-325 1 tab PO Q6H PRN pain 3 days #12 09/27/25 Unknown Rx mg tablet (Percocet) tabs hydrocodone-acetaminophen 5-325mg 1 tab PO Q4H PRN PRN Pain 2 days 10/03/25 Unknown Rx 5mg-325mg #14 TABLETS amoxicillin 875 mg-potassium 875 mg (0.875 x 875-125 mg) PO 11/11/25 Unknown Rx clavulanate 125 mg tablet Q12H #20 TABLETS hydrocodone-acetaminophen 5-325mg 1 tab PO Q4H PRN PRN Pain 2 days 11/11/25 Unknown Rx 5mg-325mg #10 TABLETS Allergy/AdvReac Type Severity Reaction Status Date / Time cephalexin AdvReac Rash Verified 11/11/25 13:05 clindamycin AdvReac Rash Verified 11/11/25 13:05 doxycycline AdvReac Rash Verified 11/11/25 13:05 vancomycin AdvReac Rash Verified 11/11/25 13:05 Social History household members: children Smoking Status: Never smoker substance use type: does not use ROS ROS ED Review of Systems ROS Unobtainable: other Constitutional Constitutional ED: Reports lethargy; Denies chills, fever(s), sweats or weight loss Eyes Eyes: Denies blurry vision, change in vision or diplopia ENT ENT ED: Denies rhinorrhea or sore throat Cardiovascular Cardiovascular: Denies chest pain, orthopnea or racing heartbeat Respiratory/Chest Respiratory/Chest: Denies cough, dyspnea, dyspnea on exertion, orthopnea or sputum Gastrointestinal Gastrointestinal: Denies abdominal pain, diarrhea, nausea or vomiting Genitourinary Genitourinary ED: Denies dysuria, hematuria or urinary frequency Musculoskeletal Musculoskeletal: Reports other Details: Left breast redness and swelling and pain ; Denies arthralgias, back pain, myalgias or neck pain Integumentary Denies abscess, Abrasions or rash Neurologic Neurologic: Denies headache(s) or weakness Psychiatric Psychiatric: Denies anxiety, depression or suicidal thoughts Endocrine Endocrinology: Denies polydipsia, polyphagia or polyuria Hematologic/Lymphatic Hematologic/Lymphatic: Denies easy bleeding, easy bruising or lymphadenopathy Allergic/Immunologic Allergic/Immunologic ED: Denies mouth swelling, tongue swelling or urticaria EXAM Physical Exam Const Vital Signs: 11/11/25 13:02 11/11/25 13:48 Temperature 97.8 F 97.9 F Temperature Source Oral Oral Pulse Rate 84 82 Respiratory Rate 18 18 Blood Pressure 135/86 H 123/83 H Blood Pressure Mean 102 96 Pulse Ox 98 97 Oxygen Delivery Method Room Air Room Air Positive well nourished and well developed General Appearance ED: well developed and NAD HEENT Reports TM's clear and moist mucous membranes normocephalic and atraumatic; Negative for trauma or tenderness Tympanic Membrane ED: Yes TM's clear Eyes PERRL and EOMs intact bilaterally General Eye ED: Negative for pale conjunctiva or scleral icterus Neck no lymphadenopathy, supple and no JVD General: Negative for tenderness Chest Wall inspection of chest normal and palpation of chest normal Chest Narrative: Left breast-she does have some erythema that almost looks like scratches to the medial upper quadrant of the left breast. It does not appear cellulitic. There is no drainage from the nipple. No fluctuance or obvious abscess formation noted. Chest: Negative for tenderness Resp normal respiratory effort and clear to auscultation bilaterally Effort and Inspection: Negative for respiratory distress or pain with movement Auscultation: Negative for rhonchi, wheezes or diminished lung sounds Cardio regular rate, regular rhythm, S1 normal heart sound, S2 normal heart sound and no murmurs Peripheral Pulses: pulses 2+ throughout GI normal to inspection, nondistended, normoactive bowel sounds, soft to palpation, non-tender, non-distended and no masses Back/Spine no CVA tenderness and no thoracic nor lumbar tenderness Extremity normal to inspection General Extremety ED: Negative for edema General Extremity: Negative for edema Neuro oriented x3, CN's II-XII intact bilaterally, no sensory deficits noted and gait normal Sensorium / Orientation: awake, alert, oriented to person, oriented to place and oriented to time Motor Exam: strength 5/5 throughout and strength abnormal Psych mental status grossly normal Skin no rashes or lesions noted and no wounds MDM MDM MDM Narrative Medical decision making narrative: Patient presents with concern for breast infection. Clinically looks well. She does not look ill. The rash on her left breast appears almost like a scratch [place] and not at all consistent with cellulitis. No abscess is noted. There is no drainage from the nipple. CBC with differential obtained showed a white count of 6.2 with hemoglobin 14 and platelet count of 252. Chemistries are unremarkable. This point she will be treated with Augmentin as she has multiple drug allergies but has had Augmentin in the past. Will write her prescription for a few [place] for pain. She will be referred to NEUROPSYCHOLOGIST on-call for follow-up and advised return if fever, worsening pain or redness or condition should worsen anyway. She is advised to keep the nipple ring out of the nipple until she follows up. Lab Data Attestation: I reviewed the patient's lab results. Labs: Laboratory Results - last 24 hr 11/11/25 13:40 WBC 6.2 RBC 4.74 Hgb 14.1 Hct 42.5 MCV 89.7 MCH 29.7 MCHC 33.2 RDW Std Deviation 41.1 RDW Coeff of Lance 12.5 Plt Count 252 MPV 9.7 Immature Gran % (Auto) 1.900 H Neut % (Auto) 46.1 L Lymph % (Auto) 40.5 Steele % (Auto) 8.7 Eos % (Auto) 1.8 Baso % (Auto) 1.0 Absolute Neuts (auto) 2.9 Absolute Lymphs (auto) 2.50 Nucleated RBC % 0 Sodium 140 Potassium 4.2 Chloride 103 Carbon Dioxide 22.9 Anion Gap 14 BUN 11 Creatinine 0.71 Estim Creat Clear Calc 128.17 Est GFR (MDRD) Non-Af 115 BUN/Creatinine Ratio 16.1 Glucose 96 Calcium 9.4 Discharge Plan Triage Chief Complaint: Female C/O ED Provider: Tamir Leon Dx/Rx/DC Orders Clinical Impression: Breast pain, left Instructions: Cellulitis Prescriptions: New hydrocodone-acetaminophen 5-325 mg tablet 1 tab PO Q4H PRN PRN (Reason: Pain) 2 Days Qty: 10 0RF amoxicillin-pot clavulanate 875-125 mg tablet 875 mg PO Q12H Qty: 20 0RF No Action lamotrigine 200 mg tablet 200 mg PO DAILY epinephrine 0.3 mg/0.3 mL auto-injector 0.3 ml IM PRN (Reason: anaphylaxis) risperidone 0.5 mg tablet 0.5 mg PO QHS escitalopram oxalate 20 mg tablet 20 mg PO DAILY divalproex 500 mg tablet extended release 24 hr 2,000 mg PO QPM amoxicillin-pot clavulanate 875-125 mg tablet 1 tab PO BID 7 Days Qty: 14 0RF oxycodone-acetaminophen [Percocet] 5-325 mg tablet 1 tab PO Q6H PRN (Reason: pain) 3 Days Qty: 12 0RF hydrocodone-acetaminophen 5-325 mg tablet 1 tab PO Q4H PRN PRN (Reason: Pain) 2 Days Qty: 14 0RF Primary Care Provider: Care Physician,No Primary Referrals: Beti Allen MD [Med Staff - Active Staff, Obstetrics-Gynecology (OBGYN)] - 3-5 Days Care Physician,No Primary [Primary Care Provider, Medical] Print Language: Korean Disposition Disposition: Home, Self Care
[2025-11-11 13:48] VITALS: BP 123/83; PULSE 82; RESP 18; TEMP 36.6; O2SAT 97
[2025-11-11 13:48] LABS: Hematocrit 42.5 % (37-47); Hemoglobin 14.1 g/dL (12.0-15.0); Immature Granulocytes Count 0.120 X10^3/uL (0.0-0.0); Mean Corp Hgb Conc 33.2 g/dL (32-36); Mean Corpuscular Volume 89.7 fL (81-99); Mean Platelet Vol. 9.7 fl (6.2-12.0); NRBC Flagged by Analyzer 0 % (0-5); Platelet Count 252 K/mm3 (150-450); RBC Distribution Width CV 12.5 % (11.6-14.6); RBC Distribution Width SD 41.1 fl (35.1-43.9); Red Blood Count 4.74 M/mm3 (4.2-5.4); White Blood Count 6.2 K/mm3 (4.4-11.0)
--- OUTSIDE RECORDS SUMMARY | 2025-11-11 14:07 | XMS RPT_ITS | CCD ---
Author Organization [facility] Care Team Providers Care Engineering Mathematician Name Role Phone Required, No Pcp Unavailable [...] Provider Unavailable Primary Care Provider Unavailabl e Care Physician, No Primary Primary Care Provider Unavailable Dr. Araseli Babb DO Emergency Provider HANNAH THOMPSONRIA Referring Unavailable LUCAS, YAJAIRA Admitting Unavailable LUCAS, YAJAIRA Attending Unavailable PAVEL VAZQUEZINO Referring Unavailable GWENDOLYN, MOHANNAD Admitting Unavailable ABBEY, DURAN Consulting Unavailable [...] e EDWARD, YO K Attending Unavailable ARASELI BBAB Attending Unavailable CHUCKIE WATT Attending Unavailable SABINA SKINNER Attending UnavailDAKOTA Martinez Referring Unavailable JAJA MOSS Attending Unavailable JOSIE MEADOWS Attending Unavailable ADELFO VAZQUEZ Attending Unavailable SISSY FELTON Attending Unavailable TRINITY KUMAR Referring Unavailable 091-5 #### [facility] CLIA [id number] [place] [facility] Urea nitrogen [Mass/Vol] 16 mg/dL Normal 7-21 [facility] Comment on above: Order Comment: Speci men Type: BLOOD SPECIMEN Ordering Facility: [facility] Address: [address] [place] [address] Performed By: #### 4 0911-27 #### [facility] CLIA [id number] [place] MRI BRAIN WO IVCONon 025 MRI BRAIN WO IVCON * * *Final Report* * * DATE OF EXAM: May 21 2025 3:36PM FV 0294 - MRI BRAIN WO IVCON / [...] or findings to explain the reported symptoms. Padder Cushion: PSCB Transcribe Date/Time: May 21 2025 3:38P Dictated by : DWAYNE WALDROP MD This examination was interpreted and the report reviewed and electronically signed by: DWAYNE WALDROP MD on May 21 2025 3:39PM EST [id number] Normal [facility] CBC panel Auto (Bld)on 05-20 Erythrocyte distribution width (RBC) [Ratio] 13.3 % Normal 11.5-15.0 [facility] Comment on above: Order Comment: Speci men Type: BLOOD SPECIMENOrdering Facility: [facility] Address: [address] [place] [address] Performed By: #### 5 8410-2 ####[facility] [id number] [address] [place] Hematocrit (Bld) [Volume fraction] 38.2 % Normal 36.0-46.0 [facility] Comment on above: Order Comment: Speci men Type: BLOOD SPECIMENOrdering Facility: [facility] Address: [address] [place] [address] Performed By: #### 5 8410-2 ####[facility]ORYCLIA [id number] [place] [address] [place] Hemoglobin (Bld) [Mass/Vol] 12.9 g/dL Normal 11.5-15.5 [facility] Comment on above: Order Comment: Speci men Type: BLOOD SPECIMENOrdering Facility: [facility] Address: [address] [place] [address] Performed By: #### 5 8410-2 ####[facility]ORYCLIA [id number] [place] [id number] [place] MCH (RBC) [Entitic mass] 30.1 pg Normal 26.0-34.0 [facility] Comment on above: Order Comment: Speci men Type: BLOOD SPECIMENOrdering Facility: [facility] Address: [address] [place] [address] Performed By: #### 5 8410-2 ####[facility]ORYCLIA [id number] [place] [address] [place] MCHC (RBC) [Mass/Vol] 33.8 g/dL Normal 30.5-36.0 [facility] Comment on above: Order Comment: Speci men Type: BLOOD SPECIMENOrdering Facility: [facility] Address: [address] [place] [address] Performed By: #### 5 8410-2 ####[facility]ORY[facility]IA [id number] [place] [id number] [place] MCV (RBC) [Entitic vol] 89.0 fL Normal 80.0-100.0 [facility] Comment on above: Order Comment: Speci men Type: BLOOD SPECIMENOrdering Facility: [facility] Address: [address] [place] [address] Performed By: #### 5 8410-2 ####[facility]ORYCLIA [id number] [place] [address] [place] Nucleated RBC (Bld) [#/Vol] 10*3/uL Normal <0.01 [facility] Comment on above: Order Comment: Speci men Type: BLOOD SPECIMENOrdering Facility: [facility] Address: [address] [place] [address] Performed By: #### 5 8410-2 ####[facility]ORYCLIA [id number] [place] [address] [place] Platelet mean volume (Bld) [Entitic vol] 9.9 fL Normal 9.0-12.7 [facility] Comment on above: Order Comment: Speci men Type: BLOOD SPECIMENOrdering Facility: [facility] Address: [address] [place] [address] Performed By: #### 5 8410-2 ####[facility]ORYCLIA [id number] [place] [address] [place] Platelets (Bld) [#/Vol] 248 10*3/uL Normal 150-400 [facility] Comment on above: Order Comment: Speci men Type: BLOOD SPECIMENOrdering Facility: [facility] Address: [address] [place] [address] Performed By: #### 5 8410-2 ####[facility] [id number] [place] [id number] [place] RBC (Bld) [#/Vol] 4.29 10*6/uL Normal 3.90-5.20 [facility] Comment on above: Order Comment: Speci men Type: BLOOD SPECIMENOrdering Facility: [facility] Address: [address] [place] [address] Performed By: #### 5 8410-2 ####[facility]ORYCLIA [id number] [place] [id number] [facility] WBC (Bld) [#/Vol] 6.95 10*3/uL Normal 3.70-11.00 [facility] Comment on above: Order Comment: Speci men Type: BLOOD SPECIMENOrdering Facility: [facility] Address: [address] [place] [address] Performed By: #### 5 8410-2 ####[facility]ORYCLIA [id number] [place] [id number] [facility] CONSULT PROGon 05-20-2025 CONSULT PROG HNO ID: [id number] Author: DURAN KERN MD Service: Infectious Disease Author Type: Physician Type: Consult Progress Note Filed: 05/21/2025 05:53 Note Text: INFECTIOUS DISEASE CONSULT PROGRESS NOTES PATIENT NAME: Matthew Huang SERVICE DATE: 05/20/2025 ASSESSMENT AND PLAN: [...] and meropenem. d/w pt to go to [facility] after d/s for desensitization for pcn atleast [...] and meropenem. d/w pt to go to [facility] after d/s for desensitization for pcn atleast [...] (Src) 97.7 (Oral) Resp 16 Ht 5' 4 (1.63m) Wt 189 lb (85.7kg) SpO2 95% [...] 8.5 8.7 9.2 CRP <0.3 05/19/2025 Duran Kren MD 05/20/2025 8:47 PM Normal [facility] CONSULT PROG HNO ID: [id number] Author: LIZETH TIWARI RPh Service: Pharmacy Author Type: Pharmacist Type: Consult Progress Note Filed: 05/20/2025 16:43 Note Text: PHARMACY VANCOMYCIN DOSING NOTE Patient Name: Matthew Huang Admission Date: 05/18/2025 Date of Consult: 05/20/2025 Time of Consult: 4:42 PM Indication: Skin/soft tissue infection Goal Range: 10-20 mcg/mL RECOMMENDATIONS/PLAN: Pharmacy consulted for vancomycin dosing for Matthew Huang, a 35 year old female. 1. [...] have any questions, [place] [phone]. Age: [age] year old Allergies: ALLERGIES Allergen [...] Readings: Date: Ht: 05/18/2025 162.6 cm (5' 4) CrCl: 112 mL/min Temp (24hrs), Av.6 ?C [...] Date/Time Value 05/20/2025 1602 12.1 Lizeth Tiwari [facility] Normal [facility] Comprehensive metabolic 2000 panelon 05-20-2025 Albumin [Mass/Vol] 3.6 g/dL Low 3.9-4.9 [facility] Comment on above: Order Comment: Speci men Type: BLOOD SPECIMENOrdering Facility: [facility] Address: [address] [place] [address] Performed By: #### 2 4323-8 ####[facility]ORYCLIA [id number] [place] [id number] [place] ALP [Catalytic activity/Vol] 104 U/L Normal 34-123 [facility] Comment on above: Order Comment: Speci men Type: BLOOD SPECIMENOrdering Facility: [facility] Address: [address] [place] [address] Performed By: #### 2 4323-8 ####[facility]ORYCLIA [id number] [place] [id number] [place] ALT [Catalytic activity/Vol] 64 U/L High 7-38 [facility] Comment on above: Order Comment: Speci men Type: BLOOD SPECIMENOrdering Facility: [facility] Address: [address] [place] [address] Performed By: #### 2 4323-8 ####[facility]ORYCLIA [id number] [place] [id number] [place] Anion gap [Moles/Vol] 14 mmol/L Normal 8-15 [facility] Comment on above: Order Comment: Speci men Type: BLOOD SPECIMENOrdering Facility: [facility] Address: [address] [place] [address] Performed By: #### 2 4323-8 ####[facility]ORYCLIA [id number] [place] [id number] [place] AST [Catalytic activity/Vol] 32 U/L Normal 13-35 [facility] Comment on above: Order Comment: Speci men Type: BLOOD SPECIMENOrdering Facility: [facility] Address: [address] [place] [address] Performed By: #### 2 4323-8 ####[facility]ORYCLIA [id number] [place] [address] [place] Bilirubin [Mass/Vol] 0.4 mg/dL Normal 0.2-1.3 [facility] Comment on above: Order Comment: Speci men Type: BLOOD SPECIMENOrdering Facility: [facility] Address: [address] [place] [address] Performed By: #### 2 4323-8 ####[facility]ORYCLIA [id number] [place] [address] [place] Calcium [Mass/Vol] 8.5 mg/dL Normal 8.5-10.2 [facility] Comment on above: Order Comment: Speci men Type: BLOOD SPECIMENOrdering Facility: [facility] Address: [address] [place] [address] Performed By: #### 2 4323-8 ####[facility]ORYCLIA [id number] [place] [id number] [place] Chloride [Moles/Vol] 103 mmol/L Normal 98-107 [facility] Comment on above: Order Comment: Speci men Type: BLOOD SPECIMENOrdering Facility: [facility] Address: [address] [place] [address] Performed By: #### 2 4323-8 ####[facility]ORYCLIA [id number] [place] [id number] [place] CO2 [Moles/Vol] 23 mmol/L Normal 22-30 [facility] Comment on above: Order Comment: Speci men Type: BLOOD SPECIMENOrdering Facility: [facility] Address: [address] [place] [address] Performed By: #### 2 4323-8 ####[facility]ORYCLIA [id number] [place] [id number] [place] Creatinine [Mass/Vol] 0.75 mg/dL Normal 0.58-0.96 [facility] Comment on above: Order Comment: Speci men Type: BLOOD SPECIMENOrdering Facility: [facility] Address: [address] [place] [address] Performed By: #### 2 4323-8 ####[facility]ORYCLIA [id number] [place] [id number] [place] Creatinine and Glomerular filtration rate.predicted panel (S/P/Bld) 107 mL/min/1.73m??? Normal >=60 [facility] Comment on above: Order Comment: Speci men Type: BLOOD SPECIMENOrdering Facility: [facility] Address: [address] [place] [address] Result Comment: Anne-Marie mated Glomerular Filtration Rate [...] actual GFR. Performed By: #### 2 4323-8 ####[facility]ORYCLIA [id number] [place] [id number] [place] Glucose [Mass/Vol] 89 mg/dL Normal 74-99 [facility] Comment on above: Order Comment: Speci men Type: BLOOD SPECIMENOrdering Facility: [facility] Address: [address] [place] [address] Result Comment: The [place] [employer] (ADA) provides guidance for cutoff [...] Standards of Medical Care in Diabetes 2016, [place] [employer]. Diabetes Care. 2016.39(Suppl 1). Performed By: #### 2 4323-8 ####[facility]ORYCLIA [id number] [place] [id number] [place] Potassium [Moles/Vol] 4.3 mmol/L Normal 3.7-5.1 [facility] Comment on above: Order Comment: Speci men Type: BLOOD SPECIMENOrdering Facility: [facility] Address: [address] [place] [address] Performed By: #### 2 4323-8 ####[facility]ORYCLIA [id number] [place] [id number] [place] Protein [Mass/Vol] 6.0 g/dL Low 6.3-8.0 [facility] Comment on above: Order Comment: Speci men Type: BLOOD SPECIMENOrdering Facility: [facility] Address: [address] [place] [address] Performed By: #### 2 4323-8 ####[facility]ORYCLIA [id number] [place] [id number] [place] Sodium [Moles/Vol] 140 mmol/L Normal 136-144 [facility] Comment on above: Order Comment: Speci men Type: BLOOD SPECIMENOrdering Facility: [facility] Address: [address] [place] [address] Performed By: #### 2 4323-8 ####[facility]ORYCLIA [id number] [place] [id number] [place] Urea nitrogen [Mass/Vol] 13 mg/dL Normal 7-21 [facility] Comment on above: Order Comment: Speci men Type: BLOOD SPECIMENOrdering Facility: [facility] Address: [address] [place] [address] Performed By: #### 2 4323-8 ####[facility]CLIA [id number] [place] [id number] [place] HCG Preg Ur Qlon 05-20-2025 HCG ( test) Ql (U) Negative Normal Negative [facility] Comment on above: Order Comment: Mookie roberts Type: URINE SPECIMEN Order[facility] Facility: [facility] Address: [address] [place] [address] Result Comment: This test is intended to aid in the early detection of . Very dilute urine samples, as indicated by a low specific gravity, may not contain customer service representative levels of hCG. This test detects [...] . Performed By: #### 2 106-3 #### [facility] CLIA [id number] [address] [place] [address] [place] NURSING PROGon 05-20-2025 NURSING PROG HNO ID: [id number] Author: BETSEY MCKEE RN Service: PICC Team Author Type: Registered Nurse Type: Nursing Progress Note Filed: 05/20/2025 17:43 Note Text: Called to room by bedside RN for difficult IV access. Placed 22g and 1in catheter in right forearm Pt tolerated well. Brisk blood return and flushed with 10cc of normal saline. RN made aware. Normal [facility] Prolactin SerPl-mCncon 05-20 Prolactin [Mass/Vol] 110.9 ng/mL High 4.4-33.8 [facility] Comment on above: Order Comment: Mookie roberts Type: BLOOD SPECIMEN [facility] Address: [address] [place] [address] Result Comment: Prol actin test is performed using the [employer] Electrochemiluminescence Immunoassay method. Results obtained with different methods or kits cannot be used interchangeably. Performed By: #### 2 842-3 #### [facility] CLIA [id number] [address] [facility] [id number] [place] [address] [place] Vancomycin Thorndike SerPl-mCncon 05-20-2025 Vancomycin random [Mass/Vol] 12.1 ug/mL Normal 10.0-20.0 [facility] Comment on above: Order Comment: Speci men Type: BLOOD SPECIMEN Order[facility] Facility: [facility] Address: [address] [place] [address] Result Comment: Refe rence ranges and high/low indicator flags are provided as general guidelines only. The treating physician must determine appropriate target levels/dosing based on the specific clinical situation. Performed By: #### 4 091-5 #### [facility] CLIA [id number] [place] [address] [place] CASE MGT INIT ASSESon 2024 CASE MGT INIT ASSES HNO ID: [id number] Author: ANABELLE LE, ? Service: Care Management Author Type: Shipbuilding Draftsperson Type: Care Mgt Initial Assessment Filed: 05/19/2025 [...] Current Advance Directive: Health Care Power of Manager Sas In Chart: Yes Up To Date and [...] Plan to treat infection and medical clearance [place] of Choice Explained: [place] of Choice Given: No Reason Not Given: [...] Antibiotics Post-Acute Discharge Plan: Pt is a 89-mblx-iqi-female, with PMHx bipolar disorder, hepatic steatosis, extensive allergies to multiple antibiotics, NIKKIE, and OCD. She presents with fever and right breast pain, and is admitted with mastitis. Pt readmitted after DC on 05/17/25, reports feeling better at this time. Pt displays flat affect, denies feeling depressed, reports that she is just tired. Pt lives with her aunt, Zeynep, and [...] as needed. SIGNATURE: Anabelle Le PATIENT NAME: Matthew Huang DATE: May 19, 2025 TIME: 11:14 AM Normal [facility] CBC panel Auto (Bld)on 05-19 Erythrocyte distribution width (RBC) [Ratio] 13.4 % Normal 11.5-15.0 [facility] Comment on above: Order Comment: Speci men Type: BLOOD SPECIMENOrdering Facility: [facility] Address: [address] [place] [address] Performed By: #### 5 8410-2 ####[facility]ORYCLIA [id number] [address] [place] Hematocrit (Bld) [Volume fraction] 38.7 % Normal 36.0-46.0 [facility] Comment on above: Order Comment: Speci men Type: BLOOD SPECIMENOrdering Facility: [facility] Address: [address] [place] [address] Performed By: #### 5 8410-2 ####[facility]ORYCLIA [id number] [place] [address] [place] Hemoglobin (Bld) [Mass/Vol] 13.0 g/dL Normal 11.5-15.5 [facility] Comment on above: Order Comment: Speci men Type: BLOOD SPECIMENOrdering Facility: [facility] Address: [address] [place] [address] Performed By: #### 5 8410-2 ####[facility]ORYCLIA [id number] [place] [address] [place] MCH (RBC) [Entitic mass] 29.5 pg Normal 26.0-34.0 [facility] Comment on above: Order Comment: Speci men Type: BLOOD SPECIMENOrdering Facility: [facility] Address: [address] [place] [address] Performed By: #### 5 8410-2 ####[facility]ORYCLIA [id number] [place] [address] [place] MCHC (RBC) [Mass/Vol] 33.6 g/dL Normal 30.5-36.0 [facility] Comment on above: Order Comment: Speci men Type: BLOOD SPECIMENOrdering Facility: [facility] Address: [address] [place] [address] Performed By: #### 5 8410-2 ####[facility]ORYCLIA [id number] [place] [id number] [place] MCV (RBC) [Entitic vol] 88.0 fL Normal 80.0-100.0 [facility] Comment on above: Order Comment: Speci men Type: BLOOD SPECIMENOrdering Facility: [facility] Address: [address] [place] [address] Performed By: #### 5 8410-2 ####[facility]ORYCLIA [id number] [place] [id number] [place] Nucleated RBC (Bld) [#/Vol] 10*3/uL Normal <0.01 [facility] Comment on above: Order Comment: Speci men Type: BLOOD SPECIMENOrdering Facility: [facility] Address: [address] [place] [address] Performed By: #### 5 8410-2 ####[facility]ORYCLIA [id number] [place] [address] [place] Platelet mean volume (Bld) [Entitic vol] 9.9 fL Normal 9.0-12.7 [facility] Comment on above: Order Comment: Speci men Type: BLOOD SPECIMENOrdering Facility: [facility] Address: [address] [place] [address] Performed By: #### 5 8410-2 ####[facility]ORYCLIA [id number] [place] [address] [place] Platelets (Bld) [#/Vol] 244 10*3/uL Normal 150-400 [facility] Comment on above: Order Comment: Speci men Type: BLOOD SPECIMENOrdering Facility: [facility] Address: [address] [place] [address] Performed By: #### 5 8410-2 ####[facility]ORYCLIA [id number] [place] [address] [place] RBC (Bld) [#/Vol] 4.40 10*6/uL Normal 3.90-5.20 [facility] Comment on above: Order Comment: Speci men Type: BLOOD SPECIMENOrdering Facility: [facility] Address: [address] [place] [address] Performed By: #### 5 8410-2 ####[facility]ORYCLIA [id number] [place] [id number] [place] WBC (Bld) [#/Vol] 8.73 10*3/uL Normal 3.70-11.00 [facility] Comment on above: Order Comment: Speci men Type: BLOOD SPECIMENOrdering Facility: [facility] Address: [address] [place] [address] Performed By: #### 5 8410-2 ####[facility]ORYCLIA [id number] [place] [address] [place] CONSULT PROGon 05-19-2025 CONSULT PROG HNO ID: [id number] Author: DURAN KERN MD Service: Infectious Disease Author Type: Physician Type: Consult Progress Note Filed: 05/20/2025 03:54 Note Text: INFECTIOUS DISEASE CONSULT PROGRESS NOTES PATIENT NAME: Matthew Huang SERVICE DATE: 05/19/2025 ASSESSMENT AND PLAN: [...] and meropenem. d/w pt to go to [facility] after d/s for desensitization for pcn atleast [...] and meropenem. d/w pt to go to [facility] after d/s for desensitization for pcn atleast [...] (Src) 98.1 (Oral) Resp 18 Ht 5' 4 (1.63m) Wt 189 lb (85.7kg) SpO2 99% [...] Duran Kern MD 05/19/2025 8:58 PM Normal [facility] CRP SerPl-mCncon 05-19-2025 CRP [Mass/Vol] mg/L Normal <0.9 [facility] Comment on above: Order Comment: Speci men Type: BLOOD SPECIMEN [facility] Address: [address] [place] [address] Performed By: #### 2 4328, 1988-03 #### [facility] CLIA [id number] [place] [address] [place] Comprehensive metabolic 2000 panelon 05-19-2025 Albumin [Mass/Vol] 3.8 g/dL Low 3.9-4.9 [facility] Comment on above: Order Comment: Speci men Type: BLOOD SPECIMEN [facility] Address: [address] [place] [address] Performed By: #### 2 4328, 1988-03 #### [facility] CLIA [id number] [address] [place] [address] [place] ALP [Catalytic activity/Vol] 100 U/L Normal 34-123 [facility] Comment on above: Order Comment: Speci men Type: BLOOD SPECIMEN [facility] Address: [address] [place] [address] Performed By: #### 2 43201-28, 1988-03 #### [facility] CLIA [id number] [address] [place] [address] [place] ALT [Catalytic activity/Vol] 58 U/L High 7-38 [facility] Comment on above: Order Comment: Speci men Type: BLOOD SPECIMEN [facility] Address: [address] [place] [address] Performed By: #### 2 4328, 1988-03 #### [facility] CLIA [id number] [address] [place] [address] [place] Anion gap [Moles/Vol] 13 mmol/L Normal 8-15 [facility] Comment on above: Order Comment: Speci men Type: BLOOD SPECIMEN [facility] Address: [address] [place] [address] Performed By: #### 2 4323-06, 1988-03 #### [facility] CLIA [id number] [address] [place] [address] [place] AST [Catalytic activity/Vol] 27 U/L Normal 13-35 [facility] Comment on above: Order Comment: Speci men Type: BLOOD SPECIMEN [facility] Address: [address] [place] [address] Performed By: #### 2 4323-06, 1988-03 #### [facility] CLIA [id number] [address] [place] [address] [place] Bilirubin [Mass/Vol] 0.3 mg/dL Normal 0.2-1.3 [facility] Comment on above: Order Comment: Speci men Type: BLOOD SPECIMEN [facility] Address: [address] [place] [address] Performed By: #### 2 4323-06, 1988-03 #### [facility] CLIA [id number] [address] [place] [address] [place] Calcium [Mass/Vol] 8.7 mg/dL Normal 8.5-10.2 [facility] Comment on above: Order Comment: Speci men Type: BLOOD SPECIMEN [facility] Address: [address] [place] [address] Performed By: #### 2 4323-06, 1988-03 #### [facility] CLIA [id number] [address] [place] [address] [place] Chloride [Moles/Vol] 106 mmol/L Normal 98-107 [facility] [place] Comment on above: Order Comment: Speci men Type: BLOOD SPECIMEN Ordering Facility: [facility] Address: [address] [place] [address] Performed By: #### 2 4323-06, 1988-03 #### [facility] CLIA [id number] [address] [place] [address] [place] CO2 [Moles/Vol] 23 mmol/L Normal 22-30 [facility] Comment on above: Order Comment: Speci men Type: BLOOD SPECIMEN Ordering Facility: [facility] Address: [address] [place] [id number] Performed By: #### 2 43238, 1988-03 #### [facility] CLIA [id number] [address] [place] [id number] [place] Creatinine [Mass/Vol] 0.68 mg/dL Normal 0.58-0.96 [facility] Comment on above: Order Comment: Mookie roberts Type: BLOOD SPECIMEN Ordering Facility: [facility] Address: [address] [place] [address] Performed By: #### 2 43238, 1988-03 #### [facility] CLIA [id number] [address] [place] [id number] [place] Creatinine and Glomerular filtration rate.predicted panel (S/P/Bld) 117 mL/min/1.73m??? Normal >=60 [facility] Comment on above: Order Comment: Mookie roberts Type: BLOOD SPECIMEN Ordering Facility: [facility] Address: [address] [place] [address] Result Comment: Anne-Marie mated Glomerular Filtration Rate [...] reflect actual GFR. Performed By: #### 2 43238, 1988-03 #### [facility] CLIA [id number] [address] [place] [address] [place] Glucose [Mass/Vol] 88 mg/dL Normal 74-99 [facility] Comment on above: Order Comment: Mookie roberts Type: BLOOD SPECIMEN Ordering Facility: [facility] Address: [address] [place] [address] Result Comment: The [place] [employer] (ADA) provides guidance for cutoff [...] Standards of Medical Care in Diabetes 2016, [place] [employer]. Diabetes Care. 2016.39(Suppl 1). Performed By: #### 2 4323-06, 1988-03 #### [facility] CLIA [id number] [address] [place] [address] [place] Potassium [Moles/Vol] 3.9 mmol/L Normal 3.7-5.1 [facility] Comment on above: Order Comment: Mookie roberts Type: BLOOD SPECIMEN Ordering Facility: [facility] Address: [address] [place] [address] Performed By: #### 2 4323-06, 1988-03 #### [facility] CLIA [id number] [address] [place] [address] [place] Protein [Mass/Vol] 6.2 g/dL Low 6.3-8.0 [facility] Comment on above: Order Comment: Mookie roberts Type: BLOOD SPECIMEN Ordering Facility: [facility] Address: [address] [place] [address] Performed By: #### 2 4323-06, 1988-03 #### [facility] CLIA [id number] [address] [place] [address] [place] Sodium [Moles/Vol] 142 mmol/L Normal 136-144 [facility] Comment on above: Order Comment: Darvini alejandra Type: BLOOD SPECIMEN Ordering Facility: [facility] Address: [address] [place] [address] Performed By: #### 2 4323-06, 1988-03 #### [facility] CLIA [id number] [address] [place] [address] [place] Urea nitrogen [Mass/Vol] 16 mg/dL Normal 7-21 [facility] Comment on above: Order Comment: Mookie roberts Type: BLOOD SPECIMEN Ordering Facility: [facility] Address: [address] [place] [address] Performed By: #### 2 4323-8, 1988-03 #### [facility] CLIA [id number] [address] [place] [address] [place] Gas and Carbon monoxide pane l (BldV)on 05-19-2025 Base excess Calc (BldV) [Moles/Vol] 1 mmol/L Normal 0-2 [facility] Comment on above: Order Comment: Speci men Type: BLOOD SPECIMEN Ordering Facility: [facility] Address: [address] [place] [address] Performed By: #### 4 091-5 #### [facility] CLIA [id number] [address] [place] [address] [place] Body temperature 97.88 [degF] Normal [facility] Comment on above: Order Comment: Speci men Type: BLOOD SPECIMEN Ordering Facility: [facility] Address: [address] [place] [address] Performed By: #### 4 09-5 #### [facility] CLIA [id number] [address] [place] [address] [place] Calcium.ionized (Bld) [Mass/Vol] 1.15 mmol/L Normal 1.08-1.30 [facility] Comment on above: Order Comment: Speci men Type: BLOOD SPECIMEN Ordering Facility: [facility] Address: [address] [place] [address] Performed By: #### 4 091-5 #### [facility] CLIA [id number] [address] [place] [address] [place] Calcium.ionized adjusted to pH 7.4 (BldA) [Moles/Vol] 1.16 mmol/L Normal 1.08-1.30 [facility] Comment on above: Order Comment: Speci men Type: BLOOD SPECIMEN Ordering Facility: [facility] Address: [address] [place] [address] Performed By: #### 4 091-5 #### [facility] CLIA [id number] [address] [place] [address] [place] Carboxyhemoglobin (BldV) [Mass fraction] 1.8 % Normal 0.0-2.0 [facility] Comment on above: Order Comment: Speci men Type: BLOOD SPECIMEN Ordering Facility: [facility] Address: [address] [place] [address] Result Comment: Carb oxyhemoglobin Reference Range for Smokers: 2.0-8.0% Performed By: #### 4 091-5 #### [facility] CLIA [id number] [address] [place] [address] [place] Chloride [Moles/Vol] 108 mmol/L High 97-105 [facility] [place] [place] Comment on above: Order Comment: Speci men Type: BLOOD SPECIMEN Ordering Facility: [facility] Address: [address] [place] [address] Performed By: #### 4 091-5 #### [facility] CLIA [id number] [address] [place] [address] [place] CO2 (BldV) [Partial pressure] 40 mm[Hg] Low 42-55 [facility] Comment on above: Order Comment: Speci men Type: BLOOD SPECIMEN Ordering Facility: [facility] Address: [address] [place] [address] Performed By: #### 4 091-5 #### [facility] CLIA [id number] [address] [place] [address] [place] CO2 adjusted to patient's actual temperature (BldV) [Partial pressure] Normal [facility] Comment on above: Order Comment: Speci men Type: BLOOD SPECIMEN Ordering Facility: [facility] Address: [address] [place] [address] Performed By: #### 4 091-5 #### [facility] CLIA [id number] [address] [place] [address] [place] Glucose [Mass/Vol] 82 mg/dL Normal 60-105 [facility] Comment on above: Order Comment: Speci men Type: BLOOD SPECIMEN Ordering Facility: [facility] Address: [address] [place] [address] Performed By: #### 4 091-5 #### [facility] CLIA [id number] [address] [place] [address] [place] HCO3 (Bld) [Moles/Vol] 25 mmol/L Normal 24-28 [facility] Comment on above: Order Comment: Speci men Type: BLOOD SPECIMEN Ordering Facility: [facility] Address: [address] [place] [address] Performed By: #### 4 091-5 #### [facility] CLIA [id number] [address] [place] [address] [place] Hematocrit (Bld) [Volume fraction] 39.7 % Normal 36.0-46.0 [facility] Comment on above: Order Comment: Speci men Type: BLOOD SPECIMEN Ordering Facility: [facility] Address: [address] [place] [address] Performed By: #### 4 091-5 #### [facility] CLIA [id number] [address] [place] [address] [place] Hemoglobin (Bld) [Mass/Vol] 12.9 g/dL Normal 11.5-15.5 [facility] Comment on above: Order Comment: Speci men Type: BLOOD SPECIMEN Ordering Facility: [facility] Address: [address] [place] [address] Performed By: #### 4 091-5 #### [facility] CLIA [id number] [address] [place] [address] [place] Lactate [Moles/Vol] 1.0 mmol/L Normal 0.5-2.2 [facility] Comment on above: Order Comment: Speci men Type: BLOOD SPECIMEN Ordering Facility: [facility] Address: [address] [place] [address] Performed By: #### 4 091-5 #### [facility] CLIA [id number] [address] [place] [address] [place] Methemoglobin (Bld) [Mass fraction] 0.6 % Normal 0.0-1.5 [facility] Comment on above: Order Comment: Speci men Type: BLOOD SPECIMEN Ordering Facility: [facility] Address: [address] [place] [address] Performed By: #### 4 091-5 #### [facility] CLIA [id number] [address] [place] [address] [place] O2 THERAPY RA=Room Air Normal [facility] Comment on above: Order Comment: Speci men Type: BLOOD SPECIMEN Ordering Facility: [facility] Address: [address] [place] [address] Performed By: #### 4 091-5 #### [facility] CLIA [id number] [address] [place] [address] [place] Oxygen (BldV) [Partial pressure] 193 mm[Hg] High 35-45 [facility] Comment on above: Order Comment: Speci men Type: BLOOD SPECIMEN Ordering Facility: [facility] Address: [address] [place] [address] Performed By: #### 4 091-5 #### [facility] CLIA [id number] [address] [place] [address] [place] Oxygen adjusted to patient's actual temperature (BldV) [Partial pressure] Normal [facility] Comment on above: Order Comment: Speci men Type: BLOOD SPECIMEN Ordering Facility: [facility] Address: [address] [place] [address] Performed By: #### 4 091-5 #### [facility] CLIA [id number] [address] [place] [address] [place] Oxygen saturation in Venous blood 100 % High 60-85 [facility] Comment on above: Order Comment: Speci men Type: BLOOD SPECIMEN Ordering Facility: [facility] Address: [address] [place] [address] Performed By: #### 4 091-5 #### [facility] CLIA [id number] [address] [place] [address] [place] Oxyhemoglobin (BldV) [Mass fraction] 97 % High 60-85 [facility] Comment on above: Order Comment: Speci men Type: BLOOD SPECIMEN Ordering Facility: [facility] Address: [address] [place] [address] Performed By: #### 4 091-5 #### [facility] CLIA [id number] [address] [place] [address] [place] pH (BldV) 7.42 [pH] Normal 7.32-7.42 [facility] Comment on above: Order Comment: Speci men Type: BLOOD SPECIMEN Ordering Facility: [facility] Address: [address] [place] [address] Performed By: #### 4 091-5 #### [facility] CLIA [id number] [address] [place] [address] [place] pH adjusted to patient's actual temperature (BldV) Normal [facility] Comment on above: Order Comment: Speci men Type: BLOOD SPECIMEN Ordering Facility: [facility] Address: [address] [place] [address] Performed By: #### 4 091-5 #### [facility] CLIA [id number] [address] [place] [address] [place] Potassium [Moles/Vol] 3.9 mmol/L Normal 3.5-5.0 [facility] Comment on above: Order Comment: Speci men Type: BLOOD SPECIMEN Ordering Facility: [facility] Address: [address] [place] [address] Performed By: #### 4 091-5 #### [facility] CLIA [id number] [address] [place] [address] [place] Sodium [Moles/Vol] 140 mmol/L Normal 136-144 [facility] Comment on above: Order Comment: Speci men Type: BLOOD SPECIMEN Ordering Facility: [facility] Address: [address] [place] [address] Performed By: #### 4 091-5 #### [facility] CLIA [id number] [address] [place] [address] [place] STAPHYLOCOCCUS AUREUS AND MR SA SCREEN, PCR, NASALon 05-19-2025 S. aureus and MRSA panel LAURA+probe (Nose) Not detected Normal Not Detected [facility] Comment on above: Order Comment: Speci men Type: SWAB Ordering Facility: [facility] Address: [address] [place] [address] Performed By: #### S APCR #### [facility] CLIA [id number] [address] [facility] [address] [place] Bacteria Bld Culton 05-18-20 25 Bacteria identified Cx Nom (Bld) CULTURE, BLOOD: No growth 5 days Normal [facility] Comment on above: Performed By: #### 6 00-7 ####[facility] [id number] [facility] [place] [address] [place] CBC W Auto Differential pane l (Bld)on 05-18-2025 Basophils (Bld) [#/Vol] 0.06 10*3/uL Normal <0.11 [facility] Comment on above: Order Comment: Speci men Type: BLOOD SPECIMENOrdering Facility: [facility] Address: [address] [place] [address] Performed By: #### 5 7021-8 ####[facility] LWCLIA [id number] [place] [address] [place] Basophils/100 WBC (Bld) 0.5 % Normal [facility] Comment on above: Order Comment: Speci men Type: BLOOD SPECIMENOrdering Facility: [facility] Address: [address] [place] [address] Performed By: #### 5 7021-8 ####[facility] LWCLIA [id number] [place] [address] [place] Differential cell count method Nom (Bld) Auto Normal [facility] Comment on above: Order Comment: Speci men Type: BLOOD SPECIMENOrdering Facility: [facility] Address: [address] [place] [address] Performed By: #### 5 7021-8 ####[facility] LWCLIA [id number] [place] [id number] [place] Eosinophils (Bld) [#/Vol] 0.06 10*3/uL Normal <0.46 [facility] Comment on above: Order Comment: Speci men Type: BLOOD SPECIMENOrdering Facility: [facility] Address: [address] [place] [address] Performed By: #### 5 7021-8 ####[facility] LWCLIA [id number] [place] [id number] [place] Eosinophils/100 WBC (Bld) 0.5 % Normal [facility] Comment on above: Order Comment: Speci men Type: BLOOD SPECIMENOrdering Facility: [facility] Address: [address] [place] [address] Performed By: #### 5 7021-8 ####[facility] LWIA [id number] [place] [address] [place] Erythrocyte distribution width (RBC) [Ratio] 13.6 % Normal 11.5-15.0 [facility] Comment on above: Order Comment: Speci men Type: BLOOD SPECIMENOrdering Facility: [facility] Address: [address] [place] [address] Performed By: #### 5 7021-8 ####[facility] LWIA [id number] [place] [id number] [place] Hematocrit (Bld) [Volume fraction] 43.7 % Normal 36.0-46.0 [facility] Comment on above: Order Comment: Speci men Type: BLOOD SPECIMENOrdering Facility: [facility] Address: [address] [place] [address] Performed By: #### 5 7021-8 ####[facility] LWCLIA [id number] [place] [id number] [place] Hemoglobin (Bld) [Mass/Vol] 14.4 g/dL Normal 11.5-15.5 [facility] Comment on above: Order Comment: Speci men Type: BLOOD SPECIMENOrdering Facility: [facility] Address: [address] [place] [address] Performed By: #### 5 7021-8 ####[facility] LWCLIA [id number] [place] [id number] [place] Immature granulocytes (Bld) [#/Vol] 0.24 10*3/uL High <0.10 [facility] Comment on above: Order Comment: Speci men Type: BLOOD SPECIMENOrdering Facility: [facility] Address: [address] [place] [address] Performed By: #### 5 7021-8 ####[facility] LWCLIA [id number] [place] [id number] [facility] Immature granulocytes/100 WBC (Bld) 2.1 % Normal [facility] Comment on above: Order Comment: Speci men Type: BLOOD SPECIMENOrdering Facility: [facility] Address: [address] [place] [address] Performed By: #### 5 7021-8 ####[facility] LWIA [id number] [place] [id number] [place] Lymphocytes (Bld) [#/Vol] 4.45 10*3/uL High 1.00-4.00 [facility] Comment on above: Order Comment: Speci men Type: BLOOD SPECIMENOrdering Facility: [facility] Address: [address] [place] [address] Performed By: #### 5 7021-8 ####[facility] LWIA [id number] [address] [place] [facility] Lymphocytes/100 WBC (Bld) 38.2 % Normal [facility] Comment on above: Order Comment: Speci men Type: BLOOD SPECIMENOrdering Facility: [facility] Address: [address] [place] [address] Performed By: #### 5 7021-8 ####[facility] LWCLIA [id number] [place] [id number] [place] MCH (RBC) [Entitic mass] 29.9 pg Normal 26.0-34.0 [facility] Comment on above: Order Comment: Speci men Type: BLOOD SPECIMENOrdering Facility: [facility] Address: [address] [place] [address] Performed By: #### 5 7021-8 ####[facility] LWCLIA [id number] [place] [id number] [place] MCHC (RBC) [Mass/Vol] 33.0 g/dL Normal 30.5-36.0 [facility] Comment on above: Order Comment: Speci men Type: BLOOD SPECIMENOrdering Facility: [facility] Address: [address] [place] [address] Performed By: #### 5 7021-8 ####[facility] LWCLIA [id number] [place] [id number] [place] MCV (RBC) [Entitic vol] 90.9 fL Normal 80.0-100.0 [facility] Comment on above: Order Comment: Speci men Type: BLOOD SPECIMENOrdering Facility: [facility] Address: [address] [place] [address] Performed By: #### 5 7021-8 ####[facility] LWCLIA [id number] [place] [id number] [place] Monocytes (Bld) [#/Vol] 0.91 10*3/uL High <0.87 [facility] Comment on above: Order Comment: Speci men Type: BLOOD SPECIMENOrdering Facility: [facility] Address: [address] [place] [address] Performed By: #### 5 7021-8 ####[facility] LWCLIA [id number] [place] [id number] [place] Monocytes/100 WBC (Bld) 7.8 % Normal [facility] Comment on above: Order Comment: Speci men Type: BLOOD SPECIMENOrdering Facility: [facility] Address: [address] [place] [address] Performed By: #### 5 7021-8 ####[facility] LWCLIA [id number] [place] [id number] [place] Neutrophils (Bld) [#/Vol] 5.93 10*3/uL Normal 1.45-7.50 [facility] Comment on above: Order Comment: Speci men Type: BLOOD SPECIMENOrdering Facility: [facility] Address: [address] [place] [address] Performed By: #### 5 7021-8 ####[facility] LWCLIA [id number] [place] [id number] [place] Neutrophils/100 WBC (Bld) 50.9 % Normal [facility] Comment on above: Order Comment: Speci men Type: BLOOD SPECIMENOrdering Facility: [facility] Address: [address] [place] [address] Performed By: #### 5 7021-8 ####[facility] LWCLIA [id number] [place] [address] [place] Nucleated RBC (Bld) [#/Vol] 10*3/uL Normal <0.01 [facility] Comment on above: Order Comment: Speci men Type: BLOOD SPECIMENOrdering Facility: [facility] Address: [address] [place] [address] Performed By: #### 5 7021-8 ####[facility] LWCLIA [id number] [address] [place] Nucleated RBC/100 WBC (Bld) [Ratio] 0.0 /100 WBC Normal [facility] Comment on above: Order Comment: Speci men Type: BLOOD SPECIMENOrdering Facility: [facility] Address: [address] [place] [address] Performed By: #### 5 7021-8 ####[facility] LWCLIA [id number] [place] [id number] [place] Platelet mean volume (Bld) [Entitic vol] 9.8 fL Normal 9.0-12.7 [facility] Comment on above: Order Comment: Speci men Type: BLOOD SPECIMENOrdering Facility: [facility] Address: [address] [place] [address] Performed By: #### 5 7021-8 ####[facility] LWCLIA [id number] [place] [id number] [place] Platelets (Bld) [#/Vol] 261 10*3/uL Normal 150-400 [facility] Comment on above: Order Comment: Speci men Type: BLOOD SPECIMENOrdering Facility: [facility] Address: [address] [place] [address] Performed By: #### 5 7021-8 ####[facility] LWCLIA [id number] [place] [id number] [place] RBC (Bld) [#/Vol] 4.81 10*6/uL Normal 3.90-5.20 [facility] Comment on above: Order Comment: Speci men Type: BLOOD SPECIMENOrdering Facility: [facility] Address: [address] [place] [address] Performed By: #### 5 7021-8 ####[facility] LWCLIA [id number] [place] [id number] [place] WBC (Bld) [#/Vol] 11.65 10*3/uL High 3.70-11.00 [facility] Comment on above: Order Comment: Speci men Type: BLOOD SPECIMENOrdering Facility: [facility] Address: [address] [place] [address] Performed By: #### 5 7021-8 ####[facility] LWCLIA [id number] [place] [id number] [facility] CNPDesirae 05-18-2025 CNPN Telephone (FVPRAD) ----- MATTHEW HUANG ([id number]) 1990 F [facility] Date Time Provider Department 05/18/25 BETHANY LEE [...] Assessed Reason for Visit: Hospital To Hospital [[id number]] Prescriptions as of 05/18/2025 - polyethylene glycol [...] and del (more content not included)... Normal [facility] CONSULTon 05-18-2025 CONSULT HNO ID: [id number] Author: DURAN KERN MD Service: Infectious Disease Author Type: Physician Type: Consults Filed: 05/20/2025 00:58 Note Text: [facility] - Consultation MATTHEW HUANG : 1990 AGE: 35 SEX: F CSN: [id number] [facility]: Medical LOCATION: [facility] ATTENDING PHYSICIAN: DENA SNOW DATE OF SERVICE: [...] Cherie Chao MD 17 g at 05/19/25 1035 senna-docusate 8.6-50 mg 1 tablet (SENNA-S) 1 tablet ORAL BID Marisa, Cherie Chao MD 1 tablet at 05/19/252044 bisacodyl 10 mg suppository (DULCOLAX) 10 mg RECTAL DAILY PRN Cherie Cunningham MD 10 mg at 05/19/25 1035 oxyCODONE IR 5 mg tab(s) (ROXICODONE) 5 mg ORAL q 6 H PRN Cherie Cunningham MD 5 mg at 05/20/25 003 keTORolac 15 mg injection (Toradol) 15 mg INTRAVENOUS q 6 H PRN Cherie Cunningham MD 15 mg at 05/19/252045 acetaminophen 1,000 mg tab(s) (TYLENOL) 1,000 mg [...] IV diph (more content not included)... Normal [facility] CONSULT PROGon 05-18-2025 CONSULT PROG HNO ID: [id number] Author: TORREY LEMUS RPh Service: Pharmacy Author Type: Pharmacist Type: Consult Progress Note Filed: 05/18/2025 23:32 Note Text: PHARMACY VANCOMYCIN DOSING NOTE Patient Name: Matthew Huang Admission Date: 05/18/2025 Date of Consult: 05/18/2025 Time of Consult: 11:31 PM Indication: Skin/soft tissue infection Goal Range: 10-20 mcg/mL RECOMMENDATIONS/PLAN: Pharmacy consulted for vancomycin dosing for Matthew Huang, a 35 year old female. 1. Patient is currently ordered Vancomycin 1.25 g IV q12h. Today is day 1 of therapy. Received initial dose @1600 05/18 from [facility] 2. No vancomycin level has been [...] have any questions, [place] [phone]. Age: [age] year old Allergies: ALLERGIES Allergen [...] Readings: Date: Ht: 05/18/2025 162.6 cm (5' 4) Estimated Creatinine Clearance: 113.5 mL/min (based on [...] No results found for: MARY KAY [facility] CONSULT PROG HNO ID: [id number] Author: DURAN KERN MD Service: Infectious Disease Author Type: Physician Type: Consult Progress Note Filed: 05/19/2025 01:53 Note Text: chart reviewed pt known to me. unresolved infection b/al mastitis nipple infection plan-- iv Vanc[facility] with joseryl Duran Kern MD 05/18/2025 ph:[phone] Normal [facility] Comprehensive metabolic 2000 panelon 05-18-2025 Albumin [Mass/Vol] 4.4 g/dL Normal 3.9-4.9 [facility] Comment on above: Order Comment: Speci men Type: BLOOD SPECIMENOrdering Facility: [facility] Address: [address] [place] [address] Performed By: #### 2 4323-8 ####[facility] LWIA [id number] [place] [address] [place] ALP [Catalytic activity/Vol] 111 U/L Normal 34-123 [facility] Comment on above: Order Comment: Speci men Type: BLOOD SPECIMENOrdering Facility: [facility] Address: [address] [place] [address] Performed By: #### 2 4323-8 ####[facility] LWCLIA [id number] [place] [id number] [place] ALT [Catalytic activity/Vol] 68 U/L High 7-38 [facility] Comment on above: Order Comment: Speci men Type: BLOOD SPECIMENOrdering Facility: [facility] Address: [address] [place] [address] Performed By: #### 2 4323-8 ####[facility] LWCLIA [id number] [place] [address] [place] Anion gap [Moles/Vol] 12 mmol/L Normal 8-15 [facility] Comment on above: Order Comment: Speci men Type: BLOOD SPECIMENOrdering Facility: [facility] Address: [address] [place] [address] Performed By: #### 2 4323-8 ####[facility] LWCLIA [id number] [place] [id number] [place] AST [Catalytic activity/Vol] 29 U/L Normal 13-35 [facility] Comment on above: Order Comment: Speci men Type: BLOOD SPECIMENOrdering Facility: [facility] Address: [address] [place] [address] Performed By: #### 2 4323-8 ####[facility] LWCLIA [id number] [place] [address] [place] Bilirubin [Mass/Vol] 0.2 mg/dL Normal 0.2-1.3 [facility] Comment on above: Order Comment: Speci men Type: BLOOD SPECIMENOrdering Facility: [facility] Address: [address] [place] [address] Performed By: #### 2 4323-8 ####[facility] LWCLIA [id number] [place] [address] [place] Calcium [Mass/Vol] 9.2 mg/dL Normal 8.5-10.2 [facility] Comment on above: Order Comment: Speci men Type: BLOOD SPECIMENOrdering Facility: [facility] Address: [address] [place] [address] Performed By: #### 2 4323-8 ####[facility] LWCLIA [id number] [place] [address] [place] Chloride [Moles/Vol] 104 mmol/L Normal 98-107 [facility] Comment on above: Order Comment: Speci men Type: BLOOD SPECIMENOrdering Facility: [facility] Address: [address] [place] [address] Performed By: #### 2 4323-8 ####[facility] LWCLIA [id number] [place] [address] [place] CO2 [Moles/Vol] 24 mmol/L Normal 22-30 [facility] Comment on above: Order Comment: Speci men Type: BLOOD SPECIMENOrdering Facility: [facility] Address: [address] [place] [address] Performed By: #### 2 4323-8 ####[facility] LWCLIA [id number] [place] [address] [place] Creatinine [Mass/Vol] 0.74 mg/dL Normal 0.58-0.96 [facility] Comment on above: Order Comment: Mookie roberts Type: BLOOD SPECIMENOrdering Facility: [facility] Address: [address] [place] [address] Performed By: #### 2 4323-8 ####[facility] LWCLIA [id number] [place] [address] [place] [facility] [place] Creatinine and Glomerular filtration rate.predicted panel (S/P/Bld) 109 mL/min/1.73m??? Normal >=60 [facility] Comment on above: Order Comment: Mookie roberts Type: BLOOD SPECIMENOrdering Facility: [facility] Address: [address] [place] [address] Result Comment: Anne-Marie mated Glomerular Filtration Rate [...] actual GFR. Performed By: #### 2 4323-8 ####[facility] LWCLIA [id number] [place] [address] [place] Glucose [Mass/Vol] 76 mg/dL Normal 74-99 [facility] Comment on above: Order Comment: Mookie roberts Type: BLOOD SPECIMENOrdering Facility: [facility] Address: [address] [place] [address] Result Comment: The [place] Diabetes [employer] (ADA) provides guidance for cutoff [...] Standards of Medical Care in Diabetes 2016, [place] [employer]. Diabetes Care. 2016.39(Suppl 1). Performed By: #### 2 4323-8 ####[facility] [id number] [place] [address] [place] Potassium [Moles/Vol] 3.8 mmol/L Normal 3.7-5.1 [facility] Comment on above: Order Comment: Speci men Type: BLOOD SPECIMENOrdering Facility: [facility] Address: [address] [place] [address] Performed By: #### 2 4323-8 ####[facility] [id number] [place] [address] [place] Protein [Mass/Vol] 7.2 g/dL Normal 6.3-8.0 [facility] Comment on above: Order Comment: Speci men Type: BLOOD SPECIMENOrdering Facility: [facility] Address: [address] [place] [address] Performed By: #### 2 4323-8 ####[facility] [id number] [place] [id number] [place] Sodium [Moles/Vol] 140 mmol/L Normal 136-144 [facility] Comment on above: Order Comment: Speci men Type: BLOOD SPECIMENOrdering Facility: [facility] Address: [address] [place] [address] Performed By: #### 2 4323-8 ####[facility] LWIA [id number] [place] [id number] [place] Urea nitrogen [Mass/Vol] 18 mg/dL Normal 7-21 [facility] Comment on above: Order Comment: Speci men Type: BLOOD SPECIMENOrdering Facility: [facility] Address: [address] [place] [address] Performed By: #### 2 4323-8 ####[facility] LWCLIA [id number] [address] OF [facility] ED NOTEon 05-18-2025 ED NOTE HNO ID: [id number] Author: CHITRA SOLORIO RN Service: Emergency Medicine Author Type: Registered Nurse Type: ED Notes Filed: 05/18/2025 20:44 Note Text: Report given MMT Normal [facility] ED NOTE HNO ID: [id number] Author: CHITRA SOLORIO RN Service: Emergency Medicine Author Type: Registered Nurse Type: ED Notes Filed: 05/18/2025 20:35 Note Text: Report given to MIRNA Cordova [facility] PK1A Normal [facility] ED NOTE HNO ID: [id number] Author: CHITRA SOLORIO RN Service: Emergency Medicine Author Type: Registered Nurse Type: ED Notes Filed: 05/18/2025 20:10 Note Text: Attempted Report to [facility]- PK1A : No answer. Will try again Normal [facility] ED NOTE Normal [facility] ED PROV NOTEon 05-18-2025 ED PROV NOTE Normal [facility] HISTORY PHYSICALon HISTORY PHYSICAL HNO ID: [id number] Author: DENA SNOW MD Service: Hospital Medicine Author Type: Physician Type: H&P Filed: 05/19/2025 00:31 Note Text: DEPARTMENT OF HOSPITAL MEDICINE HISTORY AND PHYSICAL EXAM SERVICE DATE: 05/18/2025 SERVICE TIME: 10:50 PM Primary Care Physician: No primary care provider on file. NIGHT AND WEEKEND COVERAGE: [facility] COVERAGE:Page [phone] Subjective CHIEF COMPLAINT: fever and right breast pain HPI: This is a 29-rflo[age]-female patient, PMHx bipolar disorder, hepatic steatosis, extensive allergies to multiple antibiotics, NIKKIE, and OCD. She presents with fever and right breast pain. The patient was just here at [facility] from 05/11 till 05/17, meaning she was discharged 1 night ago. She was here in the hospital with bilateral mastitis following nipple piercing. Her stay was complicated by developing allergies against daptomycin anaphylactic reaction and meropenem. She also had suspected red man syndrome with vancomycin. Her blood cultures remain [...] diphenhydramine. The patient was then transferred to [facility] and and admitted to [facility] for further evaluation and management. On arrival to [facility], the patient is hemodynamically stable, afebrile, and [...] day a (more content not included)... Normal [facility] SEPSIS LACTATE W/ REFLEX (IN ITIAL)on 05-18-2025 Lactate [Moles/Vol] 2.2 mmol/L High <=2.0 [facility] Comment on above: Order Comment: Speci men Type: BLOOD SPECIMENOrdering Facility: [facility] Address: [address] [place] [address] Performed By: #### S LACTR ####[facility] LWCLIA [id number] [place] [address] [place] SEPSIS LACTATE W/ REFLEX (SE COND)on 05-18-2025 Lactate [Moles/Vol] 3.4 mmol/L High <=2.0 [facility] Comment on above: Order Comment: Speci men Type: BLOOD SPECIMENOrdering Facility: [facility] Address: [address] [place] [address] Performed By: #### S LACT2 ####[facility] LWCLIA [id number] [place] [id number] [place] US CHEST WALL/SOFT TISSUEon 05-18-2025 US CHEST WALL/SOFT TISSUE Normal [facility] CBC panel Auto (Bld)on 05-17 Erythrocyte distribution width (RBC) [Ratio] 13.2 % Normal 11.5-15.0 [facility] Comment on above: Order Comment: Speci men Type: BLOOD SPECIMEN [facility] Address: [address] [place] [address] Performed By: #### 5 8410-2 #### [facility] CLIA [id number] [address] [place] [address] [place] Hematocrit (Bld) [Volume fraction] 41.9 % Normal 36.0-46.0 [facility] Comment on above: Order Comment: Speci men Type: BLOOD SPECIMEN [facility] Address: [address] [place] [address] Performed By: #### 5 8410-2 #### [facility] CLIA [id number] [address] [place] [address] [place] Hemoglobin (Bld) [Mass/Vol] 14.2 g/dL Normal 11.5-15.5 [facility] Comment on above: Order Comment: Speci men Type: BLOOD SPECIMEN [facility] Address: [address] [place] [address] Performed By: #### 5 8410-2 #### [facility] CLIA [id number] [address] [place] [address] [place] MCH (RBC) [Entitic mass] 29.5 pg Normal 26.0-34.0 [facility] Comment on above: Order Comment: Speci men Type: BLOOD SPECIMEN [facility] Address: [address] [place] [address] Performed By: #### 5 8410-2 #### [facility] CLIA [id number] [address] [place] [address] [place] MCHC (RBC) [Mass/Vol] 33.9 g/dL Normal 30.5-36.0 [facility] Comment on above: Order Comment: Speci men Type: BLOOD SPECIMEN [facility] Address: [address] [place] [address] Performed By: #### 5 8410-2 #### [facility] CLIA [id number] [address] [place] [address] [place] MCV (RBC) [Entitic vol] 87.1 fL Normal 80.0-100.0 [facility] Comment on above: Order Comment: Speci men Type: BLOOD SPECIMEN [facility] Address: [address] [place] [address] Performed By: #### 5 8410-2 #### [facility] CLIA [id number] [address] [place] [address] [place] Nucleated RBC (Bld) [#/Vol] 10*3/uL Normal <0.01 [facility] Comment on above: Order Comment: Speci men Type: BLOOD SPECIMEN [facility] Address: [address] [place] [address] Performed By: #### 5 8410-2 #### [facility] CLIA [id number] [address] [place] [address] [place] Platelet mean volume (Bld) [Entitic vol] 9.7 fL Normal 9.0-12.7 [facility] Comment on above: Order Comment: Speci men Type: BLOOD SPECIMEN [facility] Address: [address] [place] [address] Performed By: #### 5 8410-2 #### [facility] CLIA [id number] [address] [place] [address] [place] Platelets (Bld) [#/Vol] 270 10*3/uL Normal 150-400 [facility] Comment on above: Order Comment: Speci men Type: BLOOD SPECIMEN [facility] Address: [address] [place] [address] Performed By: #### 5 8410-2 #### [facility] CLIA [id number] [address] [place] [address] [place] RBC (Bld) [#/Vol] 4.81 10*6/uL Normal 3.90-5.20 [facility] Comment on above: Order Comment: Speci men Type: BLOOD SPECIMEN [facility] Address: [address] [place] [address] Performed By: #### 5 8410-2 #### [facility] CLIA [id number] [place] [address] [place] WBC (Bld) [#/Vol] 8.30 10*3/uL Normal 3.70-11.00 [facility] Comment on above: Order Comment: Speci men Type: BLOOD SPECIMEN [facility] Address: [address] [place] [address] Performed By: #### 5 8410-2 #### [facility] CLIA [id number] [address] [place], [place] [address] [facility] [place] CNDSon 05-17-2025 CNDS HNO ID: [id number] Author: SUAD AGNLIN MD Service: Hospital Medicine Author Type: Resident [...] with resident, RN AND patient. I performed fuxd-[id number] and all relevant services for > 30 mins. Signature: Suad Anglin MD Staff Physician, [facility] Date: 05/18/2025 Time: 5:26 AM ----- DISCHARGE SUMMARY PATIENT NAME: Matthew Huang ADMISSION DATE: 05/11/2025 DISCHARGE DATE: 05/17/2025 [...] resolved problems to display. HOSPITAL COURSE: Ms Matthew Huang is a 35-year-old female with a [...] Consulting: Duran Kern MD Primary Service: 3, [facility] PATIENT CONDITION AT DISCHARGE: Stable DISCHARGE DISPOSITION: Home with Self Care Discharge Physical Exam: VITAL SIGNS: BP 112/71 Pulse 79 Temp 36.6 ?C (97.9 ?F) (Oral) Resp 16 Ht 162.6 cm (5' 4) Wt 88.5 kg (195 lb) LMP (LMP [...] and symmetric (more content not included)... Normal [facility] CONSULT PROGon 05-17-2025 CONSULT PROG HNO ID: [id number] Author: DURAN KERN MD Service: Infectious Disease Author Type: Physician Type: Consult Progress Note Filed: 05/21/2025 04:08 Note Text: INFECTIOUS DISEASE CONSULT PROGRESS NOTES PATIENT NAME: Matthew Huang SERVICE DATE: 05/17/2025 ASSESSMENT AND PLAN: Left nipple infection due to piercing, has ring in place. Advised TO patient- may need ring removal. Discharge is purulent yellow, 05/12--CULTURE---culture-r jarett The patient has multiple drug allergies including [...] to d/s advised pt to see immunology/ triage register nurse for desensitization atleast to n . pt [...] (Src) 97.9 (Oral) Resp 16 Ht 5' 4 (1.63m) Wt 195 lb (88.5kg) SpO2 95% [...] 03/04/2025 Duran Kern MD 05/17/2025 5:01 PM [facility] CONSULT PROG HNO ID: [id number] Author: RENEE UGALDE RPh Service: Pharmacy Author Type: Pharmacist Type: Consult Progress Note Filed: 05/17/2025 10:42 Note Text: PHARMACY VANCOMYCIN DOSING NOTE Patient Name: Matthew Huang Admission Date: 05/11/2025 Date of Consult: 05/17/2025 Time of Consult: 10:41 AM RECOMMENDATIONS/PLAN: Pharmacy consulted for vancomycin dosing for Matthew Huang, a 35 year old female. Vancomycin therapy has been discontinued. Vancomycin level(s) have been discontinued: Not Applicable. The pharmacy vancomycin dosing service will sign off. Thank you for allowing us to participate in this patient's care. Please contact pharmacy if there are questions. Renee Ugalde RPh [facility] CONSULT PROG HNO ID: [id number] Author: MICHELLE MARES RPh Service: Pharmacy Author Type: Pharmacist Type: Consult Progress Note Filed: 05/17/2025 03:19 Note Text: PHARMACY VANCOMYCIN DOSING NOTE Patient Name: Matthew Huang Admission Date: 05/11/2025 Date of Consult: 05/17/2025 Time of Consult: 3:16 AM Indication: Skin/soft tissue infection Goal Range: 10-20 mcg/mL RECOMMENDATIONS/PLAN: Pharmacy consulted for vancomycin dosing for Matthew Huang, a 35 year old female. 1. [...] please contact Michelle Mares RPh at or [facility] [place] [facility] at [phone]. Age: [age] year old Allergies: ALLERGIES Allergen [...] Readings: Date: Ht: 05/11/2025 162.6 cm (5' 4) CrCl: 158 mL/min Temp (24hrs), Av.6 ?C [...] Levels: No results found for: MARY KAY Lord Vishnu, [facility] Normal [facility] Comprehensive metabolic 2000 panelon 05-17-2025 Albumin [Mass/Vol] 4.2 g/dL Normal 3.9-4.9 [facility] Comment on above: Order Comment: Speci men Type: BLOOD SPECIMEN [facility] Address: [address] [place] [address] Performed By: #### 4 091-5 #### [facility] CLIA [id number] [address] [place] [address] [place] ALP [Catalytic activity/Vol] 112 U/L Normal 34-123 [facility] Comment on above: Order Comment: Speci men Type: BLOOD SPECIMEN [facility] Address: [address] [place] [address] Performed By: #### 4 091-5 #### [facility] CLIA [id number] [address] [place] [address] [place] ALT [Catalytic activity/Vol] 76 U/L High 7-38 [facility] Comment on above: Order Comment: Speci men Type: BLOOD SPECIMEN [facility] Address: [address] [place] [address] Performed By: #### 4 091-5 #### [facility] CLIA [id number] [address] [place] [address] [place] Anion gap [Moles/Vol] 13 mmol/L Normal 8-15 [facility] Comment on above: Order Comment: Speci men Type: BLOOD SPECIMEN [facility] Address: [address] [place] [address] Performed By: #### 4 091-5 #### [facility] CLIA [id number] [address] [place] [address] [place] AST [Catalytic activity/Vol] 38 U/L High 13-35 [facility] Comment on above: Order Comment: Speci men Type: BLOOD SPECIMEN [facility] Address: [address] [place] [address] Performed By: #### 4 091-5 #### [facility] CLIA [id number] [address] [place] [address] [place] Bilirubin [Mass/Vol] 0.2 mg/dL Normal 0.2-1.3 [facility] Comment on above: Order Comment: Speci men Type: BLOOD SPECIMEN [facility] Address: [address] [place] [address] Performed By: #### 4 091-5 #### [facility] CLIA [id number] [address] [place] [address] [place] Calcium [Mass/Vol] 9.1 mg/dL Normal 8.5-10.2 [facility] Comment on above: Order Comment: Speci men Type: BLOOD SPECIMEN [facility] Address: [address] [place] [address] Performed By: #### 4 091-5 #### [facility] CLIA [id number] [address] [place] [address] [place] Chloride [Moles/Vol] 105 mmol/L Normal 98-107 [facility] Comment on above: Order Comment: Speci men Type: BLOOD SPECIMEN [facility] Address: [address] [place] [address] Performed By: #### 4 091-5 #### [facility] CLIA [id number] [address] [place] [address] [place] CO2 [Moles/Vol] 19 mmol/L Low 22-30 [facility] Comment on above: Order Comment: Speci men Type: BLOOD SPECIMEN [facility] Address: [address] [place] [address] Performed By: #### 4 091-5 #### [facility] CLIA [id number] [address] [place] [address] [place] Creatinine [Mass/Vol] 0.52 mg/dL Low 0.58-0.96 [facility] Comment on above: Order Comment: Darvinmanisha roberts Type: BLOOD SPECIMEN [facility] Address: [address] [place] [address] Performed By: #### 4 091-5 #### [facility] CLIA [id number] [address] [place] [address] [place] Creatinine and Glomerular filtration rate.predicted panel (S/P/Bld) 125 mL/min/1.73m??? Normal >=60 [facility] Comment on above: Order Comment: [facility] Type: BLOOD SPECIMEN [facility] Address: [address] [place] [address] Result Comment: Anne-Marie mated Glomerular Filtration Rate [...] GFR. Performed By: #### 4 091-5 #### [facility] CLIA [id number] [place] [address] [place] Glucose [Mass/Vol] 131 mg/dL High 74-99 [facility] Comment on above: Order Comment: Mookie roberts Type: BLOOD SPECIMEN [facility] Address: [address] [place] [address] Result Comment: The [place] [employer] (ADA) provides guidance for cutoff [...] Standards of Medical Care in Diabetes 2016, [place] [employer]. Diabetes Care. 2016.39(Suppl 1). Performed By: #### 4 091-5 #### [facility] CLIA [id number] [address] [place] [address] [place] Potassium [Moles/Vol] 4.7 mmol/L Normal 3.7-5.1 [facility] Comment on above: Order Comment: Speci men Type: BLOOD SPECIMEN [facility] Address: [address] [place] [address] Performed By: #### 4 091-5 #### [facility] CLIA [id number] [address] [place] [address] [place] Protein [Mass/Vol] 7.1 g/dL Normal 6.3-8.0 [facility] Comment on above: Order Comment: Speci men Type: BLOOD SPECIMEN [facility] Address: [address] [place] [address] Performed By: #### 4 091-5 #### [facility] CLIA [id number] [address] [place] [address] [place] Sodium [Moles/Vol] 137 mmol/L Normal 136-144 [facility] Comment on above: Order Comment: Speci men Type: BLOOD SPECIMEN [facility] Address: [address] [place] [address] Performed By: #### 4 091-5 #### [facility] CLIA [id number] [address] [place] [address] [place] Urea nitrogen [Mass/Vol] 13 mg/dL Normal 7-21 [facility] Comment on above: Order Comment: Speci men Type: BLOOD SPECIMEN [facility] Address: [address] [place] [address] Performed By: #### 4 091-5 #### [facility] CLIA [id number] [address] [place] [address] [place] MEDICAL EMERon 05-17-2025 MEDICAL RAQUEL HNO ID: [id number] Author: JOSE FERRERA MD Service: Critical Care [...] (Oral) Resp 16 Ht 162.6 cm (5' 4) Wt 88.5 kg (195 lb) LMP (LMP Unknown) SpO2 93% BMI 33.47 kg/m? SIGNATURE: Jose Ferrera MD PATIENT NAME: Matthew Huang DATE: May 17, 2025 TIME: 4:35 PM Normal [facility] NURSING PROGon 05-17-2025 NURSING PROG HNO ID: [id number] Author: LORETA PARKINSON, MIRNA Service: Nursing Author Type: Registered Nurse Type: Nursing Progress Note Filed: 05/17/2025 17:20 Note Text: Other: 1032 Checked on pt since this was her first dose of Vancomycin today. She stated I'm red all over. Slight redness noted on back with some [...] asked how she is feeling she stated I'm fine. 1225 Upon checking up on pt, she stated that I just don't feel good. She stated that she still feels itchy, [...] papers will be sent to her home. Normal [facility] NURSING PROG HNO ID: [id number] Author: PERRI GROVES, RN Service: Nursing Author Type: Registered Nurse Type: Nursing Progress Note Filed: 05/17/2025 01:35 Note Text: Other: Nursing Intervention Note 2239: Meropenem antibiotic started 2244: Patient called at 2245 with complaints of rash and itching. 2246: [...] is significantly reduced on patient's neck. Normal [facility] CBC W Auto Differential pane l (Bld)on 05-16-2025 Basophils (Bld) [#/Vol] 10*3/uL Normal <0.11 [facility] Comment on above: Order Comment: Speci men Type: BLOOD SPECIMEN Ordering Facility: [facility] Address: [address] [place] [address] Performed By: #### 5 7021-8 #### [facility] CLIA [id number] [address] [place] [address] [place] Basophils/100 WBC (Bld) 0.2 % Normal [facility] Comment on above: Order Comment: Speci men Type: BLOOD SPECIMEN Ordering Facility: [facility] Address: [address] [place] [address] Performed By: #### 5 7021-8 #### [facility] CLIA [id number] [address] [place] [address] [place] Differential cell count method Nom (Bld) Auto Normal [facility] Comment on above: Order Comment: Speci men Type: BLOOD SPECIMEN Ordering Facility: [facility] Address: [address] [place] [address] Performed By: #### 5 7021-8 #### [facility] CLIA [id number] [address] [place] [address] [place] Eosinophils (Bld) [#/Vol] 10*3/uL Normal <0.46 [facility] Comment on above: Order Comment: Speci men Type: BLOOD SPECIMEN Ordering Facility: [facility] Address: [address] [place] [address] Performed By: #### 5 7021-8 #### [facility] CLIA [id number] [address] [place] [address] [place] Eosinophils/100 WBC (Bld) 0.0 % Normal [facility] Comment on above: Order Comment: Speci men Type: BLOOD SPECIMEN Ordering Facility: [facility] Address: [address] [place] [address] Performed By: #### 5 7021-8 #### [facility] CLIA [id number] [address] [place] [address] [place] Erythrocyte distribution width (RBC) [Ratio] 13.2 % Normal 11.5-15.0 [facility] Comment on above: Order Comment: Speci men Type: BLOOD SPECIMEN Ordering Facility: [facility] Address: [address] [place] [address] Performed By: #### 5 7021-8 #### [facility] CLIA [id number] [address] [place] [address] [place] Hematocrit (Bld) [Volume fraction] 39.7 % Normal 36.0-46.0 [facility] Comment on above: Order Comment: Speci men Type: BLOOD SPECIMEN Ordering Facility: [facility] Address: [address] [place] [address] Performed By: #### 5 7021-8 #### [facility] CLIA [id number] [address] [place] [address] [place] Hemoglobin (Bld) [Mass/Vol] 13.4 g/dL Normal 11.5-15.5 [facility] Comment on above: Order Comment: Speci men Type: BLOOD SPECIMEN Ordering Facility: [facility] Address: [address] [place] [address] Performed By: #### 5 7021-8 #### [facility] CLIA [id number] [address] [place] [address] [place] Immature granulocytes (Bld) [#/Vol] 0.18 10*3/uL High <0.10 [facility] Comment on above: Order Comment: Speci men Type: BLOOD SPECIMEN Ordering Facility: [facility] Address: [address] [place] [address] Performed By: #### 5 7021-8 #### [facility] CLIA [id number] [address] [place] [address] [place] Immature granulocytes/100 WBC (Bld) 1.9 % Normal [facility] Comment on above: Order Comment: Speci men Type: BLOOD SPECIMEN Ordering Facility: [facility] Address: [address] [place] [address] Performed By: #### 5 7021-8 #### [facility] CLIA [id number] [address] [place] [address] [place] Lymphocytes (Bld) [#/Vol] 1.18 10*3/uL Normal 1.00-4.00 [facility] Comment on above: Order Comment: Speci men Type: BLOOD SPECIMEN Ordering Facility: [facility] Address: [address] [place] [address] Performed By: #### 5 7021-8 #### [facility] CLIA [id number] [address] [place] [address] [place] Lymphocytes/100 WBC (Bld) 12.5 % Normal [facility] Comment on above: Order Comment: Speci men Type: BLOOD SPECIMEN Ordering Facility: [facility] Address: [address] [place] [address] Performed By: #### 5 7021-8 #### [facility] CLIA [id number] [address] [place] [address] [place] MCH (RBC) [Entitic mass] 29.5 pg Normal 26.0-34.0 [facility] Comment on above: Order Comment: Speci men Type: BLOOD SPECIMEN Ordering Facility: [facility] Address: [address] [place] [address] Performed By: #### 5 7021-8 #### [facility] CLIA [id number] [address] [place] [address] [place] MCHC (RBC) [Mass/Vol] 33.8 g/dL Normal 30.5-36.0 [facility] Comment on above: Order Comment: Speci men Type: BLOOD SPECIMEN Ordering Facility: [facility] Address: [address] [place] [address] Performed By: #### 5 7021-8 #### [facility] CLIA [id number] [address] [place] [address] [place] MCV (RBC) [Entitic vol] 87.4 fL Normal 80.0-100.0 [facility] Comment on above: Order Comment: Speci men Type: BLOOD SPECIMEN Ordering Facility: [facility] Address: [address] [place] [address] Performed By: #### 5 7021-8 #### [facility] CLIA [id number] [address] [place] [address] [place] Monocytes (Bld) [#/Vol] 0.72 10*3/uL Normal <0.87 [facility] Comment on above: Order Comment: Speci men Type: BLOOD SPECIMEN Ordering Facility: [facility] Address: [address] [place] [address] Performed By: #### 5 7021-8 #### [facility] CLIA [id number] [address] [place] [address] [place] Monocytes/100 WBC (Bld) 7.6 % Normal [facility] Comment on above: Order Comment: Speci men Type: BLOOD SPECIMEN Ordering Facility: [facility] Address: [address] [place] [address] Performed By: #### 5 7021-8 #### [facility] CLIA [id number] [address] [place] [address] [place] Neutrophils (Bld) [#/Vol] 7.33 10*3/uL Normal 1.45-7.50 [facility] Comment on above: Order Comment: Speci men Type: BLOOD SPECIMEN Ordering Facility: [facility] Address: [address] [place] [address] Performed By: #### 5 7021-8 #### [facility] CLIA [id number] [address] [place] [address] [place] Neutrophils/100 WBC (Bld) 77.8 % Normal [facility] Comment on above: Order Comment: Speci men Type: BLOOD SPECIMEN Ordering Facility: [facility] Address: [address] [place] [address] Performed By: #### 5 7021-8 #### [facility] CLIA [id number] [address] [place] [address] [place] Nucleated RBC (Bld) [#/Vol] 10*3/uL Normal <0.01 [facility] Comment on above: Order Comment: Speci men Type: BLOOD SPECIMEN Ordering Facility: [facility] Address: [address] [place] [address] Performed By: #### 5 7021-8 #### [facility] CLIA [id number] [address] [place] [address] [place] Nucleated RBC/100 WBC (Bld) [Ratio] 0.0 /100 WBC Normal [facility] Comment on above: Order Comment: Speci men Type: BLOOD SPECIMEN Ordering Facility: [facility] Address: [address] [place] [address] Performed By: #### 5 7021-8 #### [facility] CLIA [id number] [address] [place] [address] [place] Platelet mean volume (Bld) [Entitic vol] 9.6 fL Normal 9.0-12.7 [facility] Comment on above: Order Comment: Speci men Type: BLOOD SPECIMEN Ordering Facility: [facility] Address: [address] [place] [address] Performed By: #### 5 7021-8 #### [facility] CLIA [id number] [place] [address] [place] Platelets (Bld) [#/Vol] 265 10*3/uL Normal 150-400 [facility] Comment on above: Order Comment: Speci men Type: BLOOD SPECIMEN Ordering Facility: [facility] Address: [address] [place] [address] Performed By: #### 5 7021-8 #### [facility] CLIA [id number] [address] [place] [address] [place] RBC (Bld) [#/Vol] 4.54 10*6/uL Normal 3.90-5.20 [facility] Comment on above: Order Comment: Speci men Type: BLOOD SPECIMEN Ordering Facility: [facility] Address: [address] [place] [address] Performed By: #### 5 7021-8 #### [facility] CLIA [id number] [address] [place] [address] [place] WBC (Bld) [#/Vol] 9.43 10*3/uL Normal 3.70-11.00 [facility] Comment on above: Order Comment: Speci men Type: BLOOD SPECIMEN Ordering Facility: [facility] Address: [address] [place] [address] Performed By: #### 5 7021-8 #### [facility] CLIA [id number] [address] [place] [address] OF [facility] CONSULT PROGon 05-16-2025 CONSULT PROG HNO ID: [id number] Author: DURAN KERN MD Service: Infectious Disease Author Type: Physician Type: Consult Progress Note Filed: 05/17/2025 03:04 Note Text: INFECTIOUS DISEASE CONSULT PROGRESS NOTES PATIENT NAME: Matthew Huang SERVICE DATE: 05/16/2025 ASSESSMENT AND PLAN: [...] anaphylactic reaction advised pt to see immunology/ triage register nurse for desensitization atleast to n . pt [...] (Src) 97.5 (Oral) Resp 18 Ht 5' 4 (1.63m) Wt 195 lb (88.5kg) SpO2 94% [...] Duran Kern MD 05/16/2025 10:49 PM Normal [facility] Comprehensive metabolic 2000 panelon 05-16-2025 Albumin [Mass/Vol] 4.0 g/dL Normal 3.9-4.9 [facility] Comment on above: Order Comment: Speci men Type: SWAB Ordering Facility: [facility] Address: [address] [place], [place] [address] Performed By: #### S APCR #### [facility] CLIA [id number] [address] [place] [address] [place] ALP [Catalytic activity/Vol] Normal [facility] Comment on above: Order Comment: Speci men Type: SWAB Ordering Facility: [facility] Address: [address] [place] [address] Result Comment: Unab le to assay due to interference from hemolysis. Suggest reorder as clinically indicated. Performed By: #### S APCR #### [facility] CLIA [id number] [address] [place] [address] [place] ALT [Catalytic activity/Vol] Normal [facility] Comment on above: Order Comment: Speci men Type: SWAB Ordering Facility: [facility] Address: [address] [place] [address] Result Comment: Unab le to assay due to interference from hemolysis. Suggest reorder as clinically indicated. Performed By: #### S APCR #### [facility] CLIA [id number] [address] [place] [address] [place] Anion gap [Moles/Vol] 13 mmol/L Normal 8-15 [facility] Comment on above: Order Comment: Speci men Type: SWAB Ordering Facility: [facility] Address: [address] [place] [address] Performed By: #### S APCR #### [facility] CLIA [id number] [address] [place] [address] [place] AST [Catalytic activity/Vol] Normal [facility] Comment on above: Order Comment: Speci men Type: SWAB Ordering Facility: [facility] Address: [address] [place] [address] Result Comment: Unab le to assay due to interference from hemolysis. Suggest reorder as clinically indicated. Performed By: #### S APCR #### [facility] CLIA [id number] [address] [place] [address] [place] Bilirubin [Mass/Vol] 0.2 mg/dL Normal 0.2-1.3 [facility] Comment on above: Order Comment: Speci men Type: SWAB Ordering Facility: [facility] Address: [address] [place] [address] Performed By: #### S APCR #### [facility] CLIA [id number] [address] [place] [address] [place] Calcium [Mass/Vol] 9.0 mg/dL Normal 8.5-10.2 [facility] Comment on above: Order Comment: Speci men Type: SWAB Ordering Facility: [facility] Address: [address] [place] [address] Performed By: #### S APCR #### [facility] CLIA [id number] [address] [place] [address] [place] Chloride [Moles/Vol] 104 mmol/L Normal 98-107 [facility] Comment on above: Order Comment: Speci men Type: SWAB Ordering Facility: [facility] Address: [address] [place] [address] Performed By: #### S APCR #### [facility] CLIA [id number] [address] [place] [address] [place] CO2 [Moles/Vol] 19 mmol/L Low 22-30 [facility] Comment on above: Order Comment: Speci men Type: SWAB Ordering Facility: [facility] Address: [address] [place] [address] Performed By: #### S APCR #### [facility] CLIA [id number] [address] [place] [address] [place] Creatinine [Mass/Vol] 0.54 mg/dL Low 0.58-0.96 [facility] Comment on above: Order Comment: Speci men Type: SWAB Ordering Facility: [facility] Address: [address] [place] [address] Performed By: #### S APCR #### [facility] CLIA [id number] [address] [id number] [address] [place] Creatinine and Glomerular filtration rate.predicted panel (S/P/Bld) 124 mL/min/1.73m??? Normal >=60 [facility] Comment on above: Order Comment: Mookie roberts Type: SWAB Ordering Facility: [facility] Address: [address] [place] [address] Result Comment: Anne-Marie mated Glomerular Filtration Rate [...] GFR. Performed By: #### S APCR #### [facility] CLIA [id number] [address] [place] [address] [place] Glucose [Mass/Vol] 120 mg/dL High 74-99 [facility] Comment on above: Order Comment: Mookie roberts Type: SWAB Ordering Facility: [facility] Address: [address] [place] [address] Result Comment: The [place] [employer] (ADA) provides guidance for cutoff [...] Standards of Medical Care in Diabetes 2016, [place] [employer]. Diabetes Care. 2016.39(Suppl 1). Performed By: #### S APCR #### [facility] CLIA [id number] [address] [place] [address] [place] Potassium [Moles/Vol] Normal [facility] Comment on above: Order Comment: Mookie roberts Type: SWAB Ordering Facility: [facility] Address: [address] [place] [address] Result Comment: Unab le to assay due to interference from hemolysis. Suggest reorder as clinically indicated. Performed By: #### S APCR #### [facility] CLIA [id number] [address] [place] [address] [place] Protein [Mass/Vol] 6.9 g/dL Normal 6.3-8.0 [facility] Comment on above: Order Comment: Speci men Type: SWAB Ordering Facility: [facility] Address: [address] [place] [address] Performed By: #### S APCR #### [facility] CLIA [id number] [address] [place] [address] [place] Sodium [Moles/Vol] 136 mmol/L Normal 136-144 [facility] Comment on above: Order Comment: Speci men Type: SWAB Ordering Facility: [facility] Address: [address] [place] [address] Performed By: #### S APCR #### [facility] CLIA [id number] [address] [place] [address] [place] Urea nitrogen [Mass/Vol] 13 mg/dL Normal 7-21 [facility] Comment on above: Order Comment: Speci men Type: SWAB Ordering Facility: [facility] Address: [address] [place] [address] Performed By: #### S APCR #### [facility] CLIA [id number] [address] [place] [address] [place] NURSING PROGon 05-16-2025 NURSING PROG HNO ID: [id number] Author: LORETA PARKINSON, MIRNA Service: Nursing Author Type: Registered Nurse Type: [...] Benadryl ordered. [address] Cunningham up to see pt. Head itching much improved and scalp is no longer red. Pinpoint rash much improved on her back. 1517 IV Pepcid given per order. 1530 Pt remains the same. Lips still swollen on the left side but slightly improved. Normal [facility] CBC panel Auto (Bld)on 05-15 Erythrocyte distribution width (RBC) [Ratio] 13.4 % Normal 11.5-15.0 [facility] Comment on above: Order Comment: Speci men Type: SWAB Ordering Facility: [facility] Address: [address] [place] [address] Performed By: #### S APCR #### [facility] CLIA [id number] [address] [place] [address] [place] Hematocrit (Bld) [Volume fraction] 38.3 % Normal 36.0-46.0 [facility] Comment on above: Order Comment: Speci men Type: SWAB Ordering Facility: [facility] Address: [address] [place] [address] Performed By: #### S APCR #### [facility] CLIA [id number] [address] [place] [address] [place] Hemoglobin (Bld) [Mass/Vol] 12.5 g/dL Normal 11.5-15.5 [facility] Comment on above: Order Comment: Speci men Type: SWAB Ordering Facility: [facility] Address: [address] [place] [address] Performed By: #### S APCR #### [facility] CLIA [id number] [address] [place] [address] [place] MCH (RBC) [Entitic mass] 29.3 pg Normal 26.0-34.0 [facility] Comment on above: Order Comment: Speci men Type: SWAB Ordering Facility: [facility] Address: [address] [place] [address] Performed By: #### S APCR #### [facility] CLIA [id number] [address] [place] [address] [place] MCHC (RBC) [Mass/Vol] 32.6 g/dL Normal 30.5-36.0 [facility] Comment on above: Order Comment: Speci men Type: SWAB Ordering Facility: [facility] Address: [address] [place] [address] Performed By: #### S APCR #### [facility] CLIA [id number] [address] [place] [address] [place] MCV (RBC) [Entitic vol] 89.7 fL Normal 80.0-100.0 [facility] Comment on above: Order Comment: Speci men Type: SWAB Ordering Facility: [facility] Address: [address] [place] [address] Performed By: #### S APCR #### [facility] CLIA [id number] [address] [place] [address] [place] Nucleated RBC (Bld) [#/Vol] 10*3/uL Normal <0.01 [facility] Comment on above: Order Comment: Speci men Type: SWAB Ordering Facility: [facility] Address: [address] [place] [address] Performed By: #### S APCR #### [facility] CLIA [id number] [address] [place] [address] [place] Platelet mean volume (Bld) [Entitic vol] 10.1 fL Normal 9.0-12.7 [facility] Comment on above: Order Comment: Speci men Type: SWAB Ordering Facility: [facility] Address: [address] [place] [address] Performed By: #### S APCR #### [facility] CLIA [id number] [address] [place] [address] [place] Platelets (Bld) [#/Vol] 235 10*3/uL Normal 150-400 [facility] Comment on above: Order Comment: Speci men Type: SWAB Ordering Facility: [facility] Address: [address] [place] [address] Performed By: #### S APCR #### [facility] CLIA [id number] [address] [place] [address] [place] RBC (Bld) [#/Vol] 4.27 10*6/uL Normal 3.90-5.20 [facility] Comment on above: Order Comment: Speci men Type: SWAB Ordering Facility: [facility] Address: [address] [place] [address] Performed By: #### S APCR #### [facility] CLIA [id number] [address] [place] [address] [place] WBC (Bld) [#/Vol] 6.35 10*3/uL Normal 3.70-11.00 [facility] Comment on above: Order Comment: Speci men Type: SWAB Ordering Facility: [facility] Address: [address] [place] [address] Performed By: #### S APCR #### [facility] CLIA [id number] [address] [place] [address] OF [place] CONSULT PROGon 05-15-2025 CONSULT PROG HNO ID: [id number] Author: DURAN KERN MD Service: Infectious Disease Author Type: Physician Type: Consult Progress Note Filed: 05/16/2025 03:33 Note Text: INFECTIOUS DISEASE CONSULT PROGRESS NOTES PATIENT NAME: Matthew Huang ASSESSMENT AND PLAN: Left nipple infection [...] of meropenem advised pt to see immunology/ triage register nurse for desensitization atleast to n . pt [...] (Src) 98.1 (Oral) Resp 16 Ht 5' 4 (1.63m) Wt 195 lb (88.5kg) SpO2 93% [...] Duran Kern MD 05/15/2025 8:46 PM Normal [facility] Comprehensive metabolic 2000 panelon 05-15-2025 Albumin [Mass/Vol] 3.7 g/dL Low 3.9-4.9 [facility] Comment on above: Order Comment: Speci men Type: BLOOD SPECIMEN Ordering Facility: [facility] Address: [address] [place] [address] Performed By: #### 4 091-5 #### [facility] CLIA [id number] [address] [place] [address] [place] ALP [Catalytic activity/Vol] 95 U/L Normal 34-123 [facility] Comment on above: Order Comment: Speci men Type: BLOOD SPECIMEN Ordering Facility: [facility] Address: [address] [place] [address] Performed By: #### 4 091-5 #### [facility] CLIA [id number] [address] [place] [address] [place] ALT [Catalytic activity/Vol] 39 U/L High 7-38 [facility] Comment on above: Order Comment: Speci men Type: BLOOD SPECIMEN Ordering Facility: [facility] Address: [address] [place] [address] Performed By: #### 4 091-5 #### [facility] CLIA [id number] [address] [place] [address] [place] Anion gap [Moles/Vol] 11 mmol/L Normal 8-15 [facility] Comment on above: Order Comment: Speci men Type: BLOOD SPECIMEN Ordering Facility: [facility] Address: [address] [place] [address] Performed By: #### 4 091-5 #### [facility] CLIA [id number] [address] [place] [address] [place] AST [Catalytic activity/Vol] 21 U/L Normal 13-35 [facility] Comment on above: Order Comment: Speci men Type: BLOOD SPECIMEN Ordering Facility: [facility] Address: [address] [place] [address] Performed By: #### 4 091-5 #### [facility] CLIA [id number] [address] [place] [address] [place] Bilirubin [Mass/Vol] 0.3 mg/dL Normal 0.2-1.3 [facility] Comment on above: Order Comment: Speci men Type: BLOOD SPECIMEN Ordering Facility: [facility] Address: [address] [place] [address] Performed By: #### 4 091-5 #### [facility] CLIA [id number] [address] [place] [address] [place] Calcium [Mass/Vol] 8.8 mg/dL Normal 8.5-10.2 [facility] Comment on above: Order Comment: Speci men Type: BLOOD SPECIMEN Ordering Facility: [facility] Address: [address] [place] [address] Performed By: #### 4 091-5 #### [facility] CLIA [id number] [place] [address] [place] Chloride [Moles/Vol] 103 mmol/L Normal 98-107 [facility] Comment on above: Order Comment: Speci men Type: BLOOD SPECIMEN Ordering Facility: [facility] Address: [address] [place] [address] Performed By: #### 4 091-5 #### [facility] CLIA [id number] [address] [place] [address] [place] CO2 [Moles/Vol] 26 mmol/L Normal 22-30 [facility] Comment on above: Order Comment: Speci men Type: BLOOD SPECIMEN Ordering Facility: [facility] Address: [address] [place] [address] Performed By: #### 4 091-5 #### [facility] CLIA [id number] [address] [place] [address] [place] Creatinine [Mass/Vol] 0.78 mg/dL Normal 0.58-0.96 [facility] Comment on above: Order Comment: Speci men Type: BLOOD SPECIMEN Ordering Facility: [facility] Address: [address] [place] [address] Performed By: #### 4 091-5 #### [facility] CLIA [id number] [address] [place] [address] [place] Creatinine and Glomerular filtration rate.predicted panel (S/P/Bld) 102 mL/min/1.73m??? Normal >=60 [facility] Comment on above: Order Comment: Speci men Type: BLOOD SPECIMEN Ordering Facility: [facility] Address: [address] [place] [address] Result Comment: Anne-Marie mated Glomerular Filtration Rate [...] GFR. Performed By: #### 4 091-5 #### [facility] CLIA [id number] [place] [address] [place] Glucose [Mass/Vol] 99 mg/dL Normal 74-99 [facility] Comment on above: Order Comment: Mookie roberts Type: BLOOD SPECIMEN Ordering Facility: [facility] Address: [address] [place] [address] Result Comment: The [place] [employer] (ADA) provides guidance for cutoff [...] Standards of Medical Care in Diabetes 2016, [place] [employer]. Diabetes Care. 2016.39(Suppl 1). Performed By: #### 4 091-5 #### [facility] CLIA [id number] [address] [place] [address] [place] Potassium [Moles/Vol] 4.4 mmol/L Normal 3.7-5.1 [facility] Comment on above: Order Comment: Mookie roberts Type: BLOOD SPECIMEN Ordering Facility: [facility] Address: [address] [place] [address] Performed By: #### 4 091-5 #### [facility] CLIA [id number] [address] [place] [address] [place] Protein [Mass/Vol] 6.0 g/dL Low 6.3-8.0 [facility] Comment on above: Order Comment: Mookie roberts Type: BLOOD SPECIMEN Ordering Facility: [facility] Address: [address] [place] [address] Performed By: #### 4 091-5 #### [facility] CLIA [id number] [address] [place] [address] [place] Sodium [Moles/Vol] 140 mmol/L Normal 136-144 [facility] Comment on above: Order Comment: Speci men Type: BLOOD SPECIMEN Ordering Facility: [facility] Address: [address] [place] [address] Performed By: #### 4 091-5 #### [facility] CLIA [id number] [address] [place] [address] [place] Urea nitrogen [Mass/Vol] 14 mg/dL Normal 7-21 [facility] Comment on above: Order Comment: Speci men Type: BLOOD SPECIMEN Ordering Facility: [facility] Address: [address] [place] [address] Performed By: #### 4 091-5 #### [facility] CLIA [id number] [address] [place] [address] [place] MEDICAL EMERon 05-15-2025 MEDICAL RAQUEL HNO ID: [id number] Author: JOSE FERRERA MD Service: Critical Care [...] her lips and tongue. 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 SIGNATURE: Jose Ferrera MD PATIENT NAME: Matthew Huang DATE: May 15, 2025 TIME: 1:53 PM Normal [facility] NURSING PROGon 05-15-2025 NURSING PROG HNO ID: [id number] Author: TAYLOR MONTANA RN Service: Nursing Author Type: Registered Nurse Type: Nursing Progress Note Filed: 05/15/2025 14:36 Note Text: Event(s) / Intervention Note: PATIENT NAME: Matthew Huang Patient Location: [place] [address] Room: [place] [address] The patient was observed having the following [...] in throat. 96% on room air. Normal [facility] Basic metabolic 2000 panelon 05-14-2025 Anion gap [Moles/Vol] 12 mmol/L Normal 8-15 [facility] Comment on above: Order Comment: Speci men Type: BLOOD SPECIMEN Ordering Facility: [facility] Address: [address] [place] [address] Performed By: #### 4 091-5 #### [facility] CLIA [id number] [address] [place] [address] [place] Calcium [Mass/Vol] 8.7 mg/dL Normal 8.5-10.2 [facility] Comment on above: Order Comment: Speci men Type: BLOOD SPECIMEN Ordering Facility: [facility] Address: [address] [place] [address] Performed By: #### 4 091-5 #### [facility] CLIA [id number] [address] [place] [address] [place] Chloride [Moles/Vol] 104 mmol/L Normal 98-107 [facility] Comment on above: Order Comment: Speci men Type: BLOOD SPECIMEN Ordering Facility: [facility] Address: [address] [place] [address] Performed By: #### 4 091-5 #### [facility] CLIA [id number] [address] [place] [address] [place] CO2 [Moles/Vol] 24 mmol/L Normal 22-30 [facility] Comment on above: Order Comment: Speci men Type: BLOOD SPECIMEN Ordering Facility: [facility] Address: [address] [place] [address] Performed By: #### 4 091-5 #### [facility] CLIA [id number] [address] [place] [address] [place] Creatinine [Mass/Vol] 0.83 mg/dL Normal 0.58-0.96 [facility] Comment on above: Order Comment: Speci men Type: BLOOD SPECIMEN Ordering Facility: [facility] Address: [address] [place] [address] Performed By: #### 4 091-5 #### [facility] CLIA [id number] [place] [address] [place] Creatinine and Glomerular filtration rate.predicted panel (S/P/Bld) 95 mL/min/1.73m??? Normal >=60 [facility] Comment on above: Order Comment: Mookie roberts Type: BLOOD SPECIMEN Ordering Facility: [facility] Address: [address] [place] [address] Result Comment: Anne-Marie mated Glomerular Filtration Rate [...] GFR. Performed By: #### 4 091-5 #### [facility] CLIA [id number] [place] [address] [place] Glucose [Mass/Vol] 92 mg/dL Normal 74-99 [facility] Comment on above: Order Comment: Mookie roberts Type: BLOOD SPECIMEN Ordering Facility: [facility] Address: [address] [place] [address] Result Comment: The [place] Diabetes Association (ADA) provides guidance for cutoff [...] Standards of Medical Care in Diabetes 2016, [place] [employer]. Diabetes Care. 2016.39(Suppl 1). Performed By: #### 4 091-5 #### [facility] CLIA [id number] [address] [place] [address] [place] Potassium [Moles/Vol] 4.0 mmol/L Normal 3.7-5.1 [facility] Comment on above: Order Comment: Speci men Type: BLOOD SPECIMEN Ordering Facility: [facility] Address: [address] [place] [address] Performed By: #### 4 091-5 #### [facility] CLIA [id number] [address] [place] [address] [place] Sodium [Moles/Vol] 140 mmol/L Normal 136-144 [facility] Comment on above: Order Comment: Speci men Type: BLOOD SPECIMEN Ordering Facility: [facility] Address: [address] [place] [address] Performed By: #### 4 091-5 #### [facility] CLIA [id number] [address] [place] [address] [place] Urea nitrogen [Mass/Vol] 11 mg/dL Normal 7-21 [facility] Comment on above: Order Comment: Speci men Type: BLOOD SPECIMEN Ordering Facility: [facility] Address: [address] [place] [address] Performed By: #### 4 091-5 #### [facility] CLIA [id number] [address] [place] [address] [place] CBC panel Auto (Bld)on 05-14 Erythrocyte distribution width (RBC) [Ratio] 13.4 % Normal 11.5-15.0 [facility] Comment on above: Order Comment: Speci men Type: SWAB Ordering Facility: [facility] Address: [address] [place] [address] Performed By: #### S APCR #### [facility] CLIA [id number] [address] [place] [address] [place] Hematocrit (Bld) [Volume fraction] 38.7 % Normal 36.0-46.0 [facility] Comment on above: Order Comment: Speci men Type: SWAB Ordering Facility: [facility] Address: [address] [place] [address] Performed By: #### S APCR #### [facility] CLIA [id number] [address] [place] [address] [place] Hemoglobin (Bld) [Mass/Vol] 13.1 g/dL Normal 11.5-15.5 [facility] Comment on above: Order Comment: Speci men Type: SWAB Ordering Facility: [facility] Address: [address] [place] [address] Performed By: #### S APCR #### [facility] CLIA [id number] [address] [place] [address] [place] MCH (RBC) [Entitic mass] 29.8 pg Normal 26.0-34.0 [facility] Comment on above: Order Comment: Speci men Type: SWAB Ordering Facility: [facility] Address: [address] [place] [address] Performed By: #### S APCR #### [facility] CLIA [id number] [address] [place] [address] [place] MCHC (RBC) [Mass/Vol] 33.9 g/dL Normal 30.5-36.0 [facility] Comment on above: Order Comment: Speci men Type: SWAB Ordering Facility: [facility] Address: [address] [place] [address] Performed By: #### S APCR #### [facility] CLIA [id number] [address] [place] [address] [place] MCV (RBC) [Entitic vol] 88.2 fL Normal 80.0-100.0 [facility] Comment on above: Order Comment: Speci men Type: SWAB Ordering Facility: [facility] Address: [address] [place] [address] Performed By: #### S APCR #### [facility] CLIA [id number] [address] [place] [address] [place] Nucleated RBC (Bld) [#/Vol] 10*3/uL Normal <0.01 [facility] Comment on above: Order Comment: Speci men Type: SWAB Ordering Facility: [facility] Address: [address] [place] [address] Performed By: #### S APCR #### [facility] CLIA [id number] [address] [place] [address] [place] Platelet mean volume (Bld) [Entitic vol] 9.8 fL Normal 9.0-12.7 [facility] Comment on above: Order Comment: Speci men Type: SWAB Ordering Facility: [facility] Address: [address] [place] [address] Performed By: #### S APCR #### [facility] CLIA [id number] [address] [place] [address] [place] Platelets (Bld) [#/Vol] 231 10*3/uL Normal 150-400 [facility] Comment on above: Order Comment: Speci men Type: SWAB Ordering Facility: [facility] Address: [address] [place] [address] Performed By: #### S APCR #### [facility] CLIA [id number] [address] [place] [address] [place] RBC (Bld) [#/Vol] 4.39 10*6/uL Normal 3.90-5.20 [facility] Comment on above: Order Comment: Speci men Type: SWAB Ordering Facility: [facility] Address: [address] [place] [address] Performed By: #### S APCR #### [facility] CLIA [id number] [address] [place] [address] [place] WBC (Bld) [#/Vol] 6.94 10*3/uL Normal 3.70-11.00 [facility] Comment on above: Order Comment: Speci men Type: SWAB Ordering Facility: [facility] Address: [address] [place] [address] Performed By: #### S APCR #### [facility] CLIA [id number] [address] [place] [address] [place] CONSULT PROGon 05-14-2025 CONSULT PROG HNO ID: [id number] Author: DURAN KERN MD Service: Infectious Disease Author Type: Physician Type: Consult Progress Note Filed: 05/15/2025 02:17 Note Text: INFECTIOUS DISEASE CONSULT PROGRESS NOTES PATIENT NAME: Matthew Huang SERVICE DATE: 05/14/2025 ASSESSMENT AND PLAN: [...] (Src) 98.1 (Oral) Resp 16 Ht 5' 4 (1.63m) Wt 195 lb (88.5kg) SpO2 94% [...] Duran Kern MD 05/14/2025 8:55 PM Normal [facility] ECG COMPLETEon 05-14-2025 ECG COMPLETE Ventricular Rate : 7 1 BPM Atrial Rate : 71 BPM P-R Interval : 144 ms QRS Duration : 79 ms Q-T Interval : 385 ms QTC Calculation(Bazett) : 419 ms Calculated P [place] : 1 degrees Calculated R [place] : 31 degrees Calculated T [place] : 35 degrees Sinus rhythm Normal ECG Confirmed by JANESSA STRICKLAND MD ([id number]) on 05/15/2025 11:43:38 AM NAME : MATTHEW HUANG PID : [id number] : 1990 Gender : Female Race : ORD : [id number] Procedure Date : May 14 2025 01:15:33 Edit Date : May 15 2025 11:43:39 Diagnosis: Sinus rhythm Normal ECG Confirmed by JANESSA STRICKLAND MD (79) on 05/15/2025 11:43:38 AM Test Reason : Check QT Location : 400 : FVEKG PK1B Overread By : JANESSA STRICKLAND MD Edited By : JANESSA STRICKLAND MD Referred By : LEBRON GUDINO Acquired by : [id number], Normal [facility] Basic metabolic 2000 panelon 05-13-2025 Anion gap [Moles/Vol] 10 mmol/L Normal 8-15 [facility] Comment on above: Order Comment: Speci men Type: BLOOD SPECIMENOrdering Facility: [facility] Address: [address] [place] [address] Performed By: #### 2 4321-2 ####[facility] [id number] [place] [address] [place] Calcium [Mass/Vol] 8.6 mg/dL Normal 8.5-10.2 [facility] Comment on above: Order Comment: Speci men Type: BLOOD SPECIMENOrdering Facility: [facility] Address: [address] [place] [address] Performed By: #### 2 4321-2 ####[facility] [id number] [place] [address] [place] Chloride [Moles/Vol] 109 mmol/L High 98-107 [facility] Comment on above: Order Comment: Speci men Type: BLOOD SPECIMENOrdering Facility: [facility] Address: [address] [place] [address] Performed By: #### 2 4321-2 ####[facility] [id number] [place] [address] [place] CO2 [Moles/Vol] 22 mmol/L Normal 22-30 [facility] Comment on above: Order Comment: Speci men Type: BLOOD SPECIMENOrdering Facility: [facility] Address: [address] [place] [address] Performed By: #### 2 4321-2 ####[facility] [id number] [place] [id number] [place] Creatinine [Mass/Vol] 0.85 mg/dL Normal 0.58-0.96 [facility] Comment on above: Order Comment: Mookie [facility] Type: BLOOD SPECIMENOrdering Facility: [facility] Address: [address] [place] [address] Performed By: #### 2 4321-2 ####[facility] [id number] [place] [id number] [place] Creatinine and Glomerular filtration rate.predicted panel (S/P/Bld) 92 mL/min/1.73m??? Normal >=60 [facility] Comment on above: Order Comment: [facility] Type: BLOOD SPECIMENOrdering Facility: [facility] Address: [address] [place] [address] Result Comment: Anne-Marie mated Glomerular Filtration Rate [...] actual GFR. Performed By: #### 2 4321-2 ####[facility] [id number] [place] [id number] [place] Glucose [Mass/Vol] 84 mg/dL Normal 74-99 [facility] Comment on above: Order Comment: Mookie [facility] Type: BLOOD SPECIMENOrdering Facility: [facility] Address: [address] [place] [address] Result Comment: The [place] [employer] (ADA) provides guidance for cutoff [...] Standards of Medical Care in Diabetes 2016, [place] [employer]. Diabetes Care. 2016.39(Suppl 1). Performed By: #### 2 4321-2 ####[facility] [id number] [place] [id number] [place] Potassium [Moles/Vol] 4.7 mmol/L Normal 3.7-5.1 [facility] Comment on above: Order Comment: Speci men Type: BLOOD SPECIMENOrdering Facility: [facility] Address: [address] [place] [address] Performed By: #### 2 4321-2 ####[facility] [id number] [place] [id number] [place] Sodium [Moles/Vol] 141 mmol/L Normal 136-144 [facility] Comment on above: Order Comment: Speci men Type: BLOOD SPECIMENOrdering Facility: [facility] Address: [address] [place] [address] Performed By: #### 2 4321-2 ####[facility] [id number] [place] [id number] [place] Urea nitrogen [Mass/Vol] 16 mg/dL Normal 7-21 [facility] Comment on above: Order Comment: Darvini alejandra Type: BLOOD SPECIMENOrdering Facility: [facility] Address: [address] [place] [address] Performed By: #### 2 4321-2 ####[facility] [id number] [place] [id number] [place] CBC panel Auto (Bld)on 05-13 Erythrocyte distribution width (RBC) [Ratio] 13.7 % Normal 11.5-15.0 [facility] Comment on above: Order Comment: Speci men Type: BLOOD SPECIMENOrdering Facility: [facility] Address: [address] [place] [address] Performed By: #### 5 8410-2 ####[facility] [id number] [place] [address] [place] Hematocrit (Bld) [Volume fraction] 38.1 % Normal 36.0-46.0 [facility] Comment on above: Order Comment: Speci men Type: BLOOD SPECIMENOrdering Facility: [facility] Address: [address] [place] [address] Performed By: #### 5 8410-2 ####[facility] [id number] [place] [address] [place] Hemoglobin (Bld) [Mass/Vol] 12.8 g/dL Normal 11.5-15.5 [facility] Comment on above: Order Comment: Speci men Type: BLOOD SPECIMENOrdering Facility: [facility] Address: [address] [place] [address] Performed By: #### 5 8410-2 ####[facility] [id number] [place] [address] [place] MCH (RBC) [Entitic mass] 30.3 pg Normal 26.0-34.0 [facility] Comment on above: Order Comment: Speci men Type: BLOOD SPECIMENOrdering Facility: [facility] Address: [address] [place] [address] Performed By: #### 5 8410-2 ####[facility] [id number] [place] [address] [place] MCHC (RBC) [Mass/Vol] 33.6 g/dL Normal 30.5-36.0 [facility] Comment on above: Order Comment: Speci men Type: BLOOD SPECIMENOrdering Facility: [facility] Address: [address] [place] [address] Performed By: #### 5 8410-2 ####[facility] [id number] [address] [place] MCV (RBC) [Entitic vol] 90.1 fL Normal 80.0-100.0 [facility] Comment on above: Order Comment: Speci men Type: BLOOD SPECIMENOrdering Facility: [facility] Address: [address] [place] [address] Performed By: #### 5 8410-2 ####[facility] [id number] [place] [id number] [place] Nucleated RBC (Bld) [#/Vol] 10*3/uL Normal <0.01 [facility] Comment on above: Order Comment: Speci men Type: BLOOD SPECIMENOrdering Facility: [facility] Address: [address] [place] [address] Performed By: #### 5 8410-2 ####[facility] [id number] [place] [id number] [place] Platelet mean volume (Bld) [Entitic vol] 10.4 fL Normal 9.0-12.7 [facility] Comment on above: Order Comment: Speci men Type: BLOOD SPECIMENOrdering Facility: [facility] Address: [address] [place] [address] Performed By: #### 5 8410-2 ####[facility] [id number] [place] [address] [place] Platelets (Bld) [#/Vol] 241 10*3/uL Normal 150-400 [facility] Comment on above: Order Comment: Speci men Type: BLOOD SPECIMENOrdering Facility: [facility] Address: [address] [place] [address] Performed By: #### 5 8410-2 ####[facility] [id number] [place] [id number] [place] RBC (Bld) [#/Vol] 4.23 10*6/uL Normal 3.90-5.20 [facility] Comment on above: Order Comment: Speci men Type: BLOOD SPECIMENOrdering Facility: [facility] Address: [address] [place] [address] Performed By: #### 5 8410-2 ####[facility] [id number] [place] [id number] [place] WBC (Bld) [#/Vol] 8.55 10*3/uL Normal 3.70-11.00 [facility] Comment on above: Order Comment: Speci men Type: BLOOD SPECIMENOrdering Facility: [facility] Address: [address] [place] [address] Performed By: #### 5 8410-2 ####[facility] [id number] [place] [address] [place] CONSULT PROGon 05-13-2025 CONSULT PROG HNO ID: [id number] Author: DURAN KERN MD Service: Infectious Disease Author Type: Physician Type: Consult Progress Note Filed: 05/14/2025 03:51 Note Text: INFECTIOUS DISEASE CONSULT PROGRESS NOTES PATIENT NAME: Matthew Huang SERVICE DATE: 05/13/2025 ASSESSMENT AND PLAN: [...] (Src) 97.8 (Oral) Resp 18 Ht 5' 4 (1.63m) Wt 195 lb (88.5kg) SpO2 97% [...] 03/04/2025 Duran Kern MD 05/13/2025 8:44 PM [facility] NURSING PROGon 05-13-2025 NURSING PROG HNO ID: [id number] Author: CHEVY NUÑEZ RN Service: PICC Team [...] complication. SIGNATURE: Chevy Nuñez RN PATIENT NAME: Matthew Huang DATE: May 13, 2025 TIME: 1:06 PM PAGER/CONTACT #: [phone] [facility] [place] ALLIED HEALTHon 05-12-2025 ALLIED HEALTH HNO ID: [id number] Author: CLYDE ALANIS RT(R) Service: ? Author Type: Speech Coach Type: Allied Health Filed: 05/12/2025 12:17 Note Text: Radiology Service Progress Note PATIENT NAME: Matthew Huang DATE OF SERVICE: May 12, 2025 [...] PATIENT PRESENTS WITH AN IMPLANTABLE OR ATTACHED TECHNICAL TRAINING MANAGER: No RADIOLOGY DEPARTMENT: Ultrasound PERIPHERAL IV DATA: Not applicable SIGNED BY: RT Nissa(R) May 12, 2025 12:16 PM [facility] [place] ALLIED HEALTH HNO ID: [id number] Author: CRISTOPHER AGUIAR RDMS Service: ? Author Type: Technologist Type: Allied Health Filed: 05/12/2025 12:09 Note Text: Radiology Service Progress Note PATIENT NAME: Matthew Huang DATE OF SERVICE: May 12, 2025 [...] PATIENT PRESENTS WITH AN IMPLANTABLE OR ATTACHED TECHNICAL TRAINING MANAGER: No RADIOLOGY DEPARTMENT: Ultrasound PERIPHERAL IV DATA: Not applicable SIGNED BY: CRISTOPHER AGUIAR RDMS May 12, 2025 12:09 PM [facility] [place] Bacteria Wnd Culton 05-12-20 25 Bacteria identified Cx Nom (Wound) ORGANISM ID: 1 Rare skin nia GRAM STAIN: No organisms seen No Polymorphonuclear Leukocytes Normal [facility] Comment on above: Performed By: #### 6 462-6 ####[facility] [id number] [place] [address] [place] Basic metabolic 2000 panelon 05-12-2025 Anion gap [Moles/Vol] 11 mmol/L Normal 8-15 [facility] Comment on above: Order Comment: Speci men Type: SWAB [facility] Address: [address] [place] [address] Performed By: #### S APCR #### [facility] CLIA [id number] [address] [place] [address] [place] Calcium [Mass/Vol] 8.9 mg/dL Normal 8.5-10.2 [facility] Comment on above: Order Comment: Speci men Type: SWAB Ordering Facility: [facility] Address: [address] [place] [address] Performed By: #### S APCR #### [facility] CLIA [id number] [address] [place] [address] [place] Chloride [Moles/Vol] 109 mmol/L High 98-107 [facility] Comment on above: Order Comment: Speci men Type: SWAB Ordering Facility: [facility] Address: [address] [place] [address] Performed By: #### S APCR #### [facility] CLIA [id number] [address] [place] [address] [place] CO2 [Moles/Vol] 20 mmol/L Low 22-30 [facility] Comment on above: Order Comment: Speci men Type: SWAB Ordering Facility: [facility] Address: [address] [place] [address] Performed By: #### S APCR #### [facility] CLIA [id number] [address] [place] [address] [place] Creatinine [Mass/Vol] 0.62 mg/dL Normal 0.58-0.96 [facility] Comment on above: Order Comment: Speci men Type: SWAB Ordering Facility: [facility] Address: [address] [place] [address] Performed By: #### S APCR #### [facility] CLIA [id number] [address] [place] [address] [place] Creatinine and Glomerular filtration rate.predicted panel (S/P/Bld) 120 mL/min/1.73m??? Normal >=60 [facility] Comment on above: Order Comment: Speci men Type: SWAB Ordering Facility: [facility] Address: [address] [place] [address] Result Comment: Anne-Marie mated Glomerular Filtration Rate [...] GFR. Performed By: #### S APCR #### [facility] CLIA [id number] [address] [place] [address] [place] Glucose [Mass/Vol] 170 mg/dL High 74-99 [facility] Comment on above: Order Comment: Speci men Type: SWAB Ordering Facility: [facility] Address: [address] [place] [address] Result Comment: The [place] [employer] (ADA) provides guidance for cutoff [...] Standards of Medical Care in Diabetes 2016, [place] [employer]. Diabetes Care. 2016.39(Suppl 1). Performed By: #### S APCR #### [facility] CLIA [id number] [address] [place] [address] [place] Potassium [Moles/Vol] 4.4 mmol/L Normal 3.7-5.1 [facility] Comment on above: Order Comment: Speci men Type: SWAB Ordering Facility: [facility] Address: [address] [place] [address] Performed By: #### S APCR #### [facility] CLIA [id number] [address] [place], [place] [address] [place] Sodium [Moles/Vol] 140 mmol/L Normal 136-144 [facility] Comment on above: Order Comment: Speci men Type: SWAB Ordering Facility: [facility] Address: [address] [place] [address] Performed By: #### S APCR #### [facility] CLIA [id number] [address] [place] [address] [place] Urea nitrogen [Mass/Vol] 15 mg/dL Normal 7-21 [facility] Comment on above: Order Comment: Speci men Type: SWAB Ordering Facility: [facility] Address: [address] [place] [address] Performed By: #### S APCR #### [facility] CLIA [id number] [address] [place] [address] [place] CBC panel Auto (Bld)on 05-12 Erythrocyte distribution width (RBC) [Ratio] 13.2 % Normal 11.5-15.0 [facility] Comment on above: Order Comment: Speci men Type: SWAB Ordering Facility: [facility] Address: [address] [place] [address] Performed By: #### S APCR #### [facility] CLIA [id number] [address] [place] [address] [place] Hematocrit (Bld) [Volume fraction] 41.0 % Normal 36.0-46.0 [facility] Comment on above: Order Comment: Speci men Type: SWAB Ordering Facility: [facility] Address: [address] [place] [address] Performed By: #### S APCR #### [facility] CLIA [id number] [address] [place] [address] [place] Hemoglobin (Bld) [Mass/Vol] 13.9 g/dL Normal 11.5-15.5 [facility] Comment on above: Order Comment: Speci men Type: SWAB Ordering Facility: [facility] Address: [address] [place] [address] Performed By: #### S APCR #### [facility] CLIA [id number] [address] [place] [address] [place] MCH (RBC) [Entitic mass] 29.5 pg Normal 26.0-34.0 [facility] Comment on above: Order Comment: Speci men Type: SWAB Ordering Facility: [facility] Address: [address] [place] [address] Performed By: #### S APCR #### [facility] CLIA [id number] [address] [place] [address] [place] MCHC (RBC) [Mass/Vol] 33.9 g/dL Normal 30.5-36.0 [facility] Comment on above: Order Comment: Speci men Type: SWAB Ordering Facility: [facility] Address: [address] [place] [address] Performed By: #### S APCR #### [facility] CLIA [id number] [address] [place] [address] [place] MCV (RBC) [Entitic vol] 87.0 fL Normal 80.0-100.0 [facility] Comment on above: Order Comment: Speci men Type: SWAB Ordering Facility: [facility] Address: [address] [place] [address] Performed By: #### S APCR #### [facility] CLIA [id number] [address] [place] [address] [place] Nucleated RBC (Bld) [#/Vol] 10*3/uL Normal <0.01 [facility] Comment on above: Order Comment: Speci men Type: SWAB Ordering Facility: [facility] Address: [address] [place] [address] Performed By: #### S APCR #### [facility] CLIA [id number] [address] [place] [address] [place] Platelet mean volume (Bld) [Entitic vol] 9.7 fL Normal 9.0-12.7 [facility] Comment on above: Order Comment: Speci men Type: SWAB Ordering Facility: [facility] Address: [address] [place] [address] Performed By: #### S APCR #### [facility] CLIA [id number] [address] [place] [address] [place] Platelets (Bld) [#/Vol] 263 10*3/uL Normal 150-400 [facility] Comment on above: Order Comment: Speci men Type: SWAB Ordering Facility: [facility] Address: [address] [place] [address] Performed By: #### S APCR #### [facility] CLIA [id number] [address] [place] [address] [place] RBC (Bld) [#/Vol] 4.71 10*6/uL Normal 3.90-5.20 [facility] Comment on above: Order Comment: Speci men Type: SWAB Ordering Facility: [facility] Address: [address] [place] [address] Performed By: #### S APCR #### [facility] CLIA [id number] [address] [place] [address] [place] WBC (Bld) [#/Vol] 5.90 10*3/uL Normal 3.70-11.00 [facility] Comment on above: Order Comment: Speci men Type: SWAB Ordering Facility: [facility] Address: [address] [place] [address] Performed By: #### S APCR #### [facility] CLIA [id number] [address] [place] [address] [place] CK SerPl-cCncon 05-12-2025 CK [Catalytic activity/Vol] 106 U/L Normal 42-196 [facility] Comment on above: Order Comment: Speci men Type: SWAB Ordering Facility: [facility] Address: [address] [place] [address] Performed By: #### S APCR #### [facility] CLIA [id number] [address] [place] [address] OF [facility] CONSULT PROGon 05-12-2025 CONSULT PROG HNO ID: [id number] Author: DURAN KERN MD Service: Infectious Disease Author Type: Physician Type: Consult Progress Note Filed: 05/13/2025 04:03 Note Text: INFECTIOUS DISEASE CONSULT PROGRESS NOTES PATIENT NAME: Matthew Huang SERVICE DATE: 05/12/2025 ASSESSMENT AND PLAN: [...] (Src) 97.7 (Oral) Resp 17 Ht 5' 4 (1.63m) Wt 195 lb (88.5kg) SpO2 95% [...] Duran Kern MD 05/12/2025 8:45 PM Normal [facility] HAV IgM Ser Qlon 05-12-2025 HAV IgM Ql (S) Negative Normal Negative [facility] Comment on above: Order Comment: Speci men Type: SWAB Ordering Facility: [facility] Address: [address] [place] [address] Result Comment: No e vidence of recent infection with Hepatitis A virus. Performed By: #### S APCR #### [facility] CLIA [id number] [address] [place] [address] [place] HBV core IgM Ser Qlon 2024 HBV core IgM Ql (S) Negative Normal Negative [facility] Comment on above: Order Comment: Speci men Type: SWAB Ordering Facility: [facility] Address: [address] [place] [address] Result Comment: No e vidence of recent infection with Hepatitis B virus. Should recent infection be suspected, repeat testing may be considered 3-4 weeks after this draw. Performed By: #### S APCR #### [facility] CLIA [id number] [address] [place] [address] [place] HBV surface Ag Ser Qlon 04-24 HBV surface Ag Ql (S) Negative Normal Negative [facility] Comment on above: Order Comment: Speci men Type: BLOOD SPECIMENOrdering Facility: [facility] Address: [address] [place] [address] Performed By: #### 5 195-3 ####[facility] [id number] [place] [address] [place] HCV RNA LAURA+probe Qnon 05-12 HCV RNA LAURA+probe Ql Not detected Normal Not detected [facility] Comment on above: Order Comment: Speci [facility] Type: BLOOD SPECIMENOrdering Facility: [facility] Address: [address] [place] [address] Performed By: #### 1 1011-4 ####[facility]IA [id number] [place] [address] [place] Hepatic function 2000 panelo n 05-12-2025 Albumin [Mass/Vol] 4.4 g/dL Normal 3.9-4.9 [facility] Comment on above: Order Comment: Speci men Type: SWAB Ordering Facility: [facility] Address: [address] [place] [address] Performed By: #### S APCR #### [facility] CLIA [id number] [address] [place] [address] [place] ALP [Catalytic activity/Vol] 109 U/L Normal 34-123 [facility] Comment on above: Order Comment: Speci men Type: SWAB Ordering Facility: [facility] Address: [address] [place] [address] Performed By: #### S APCR #### [facility] CLIA [id number] [address] [place] [address] [place] ALT [Catalytic activity/Vol] 44 U/L High 7-38 [facility] Comment on above: Order Comment: Speci men Type: SWAB Ordering Facility: [facility] Address: [address] [place] [address] Performed By: #### S APCR #### [facility] CLIA [id number] [address] [place] [address] [place] AST [Catalytic activity/Vol] 31 U/L Normal 13-35 [facility] Comment on above: Order Comment: Speci men Type: SWAB Ordering Facility: [facility] Address: [address] [place] [address] Performed By: #### S APCR #### [facility] CLIA [id number] [address] [place] [address] [place] Bilirubin [Mass/Vol] 0.3 mg/dL Normal 0.2-1.3 [facility] Comment on above: Order Comment: Speci men Type: SWAB Ordering Facility: [facility] Address: [address] [place] [address] Performed By: #### S APCR #### [facility] CLIA [id number] [address] [place] [address] [place] Bilirubin.conjugated [Mass/Vol] 0.1 mg/dL Normal <0.3 [facility] Comment on above: Order Comment: Speci men Type: SWAB Ordering Facility: [facility] Address: [address] [place] [address] Performed By: #### S APCR #### [facility] CLIA [id number] [address] [place] [address] [place] Protein [Mass/Vol] 7.1 g/dL Normal 6.3-8.0 [facility] Comment on above: Order Comment: Speci men Type: SWAB Ordering Facility: [facility] Address: [address] [place] [address] Performed By: #### S APCR #### [facility] CLIA [id number] [address] [place] [address] [place] STAPHYLOCOCCUS AUREUS AND MR SA SCREEN, PCR, NASALon 05-12-2025 S. aureus and MRSA panel LAURA+probe (Nose) Not detected Normal Not Detected [facility] Comment on above: Order Comment: Speci men Type: BLOOD SPECIMEN Ordering Facility: [facility] Address: [address] [place] [address] Performed By: #### 4 091-5 #### [facility] CLIA [id number] [address] [place] [address] [place] US ABD RIGHT [...] IMPRESSION: Hepatic steatosis. No other acute process Padder Cushion: [facility] Transcribe Date/Time: May 12 2025 12:20P Dictated by : CATRACHITA SCHWARTZ MD This examination was interpreted and the report reviewed and electronically signed by: CATRACHITA SCHWARTZ MD on May 12 2025 12:25PM EST [id number] Normal [facility] US CHEST WALL/SOFT TISSUEon 05-12-2025 US CHEST WALL/SOFT TISSUE * * *Final Report* * * DATE OF EXAM: May 12 2025 12:13PM [facility] 1047 - US CHEST WALL/SOFT TISSUE / [...] which was present on prior ultrasound. Nonspecific. Padder Cushion: [facility] Transcribe Date/Time: May 12 2025 12:25P Dictated by : CATRACHITA SCHWARTZ MD This examination was interpreted and the report reviewed and electronically signed by: CATRACHITA SCHWARTZ MD on May 12 2025 12:29PM EST [id number] [facility] Bacteria Bld Culton 05-11-20 25 Bacteria identified Cx Nom (Bld) CULTURE, BLOOD: No growth 5 days Normal [facility] Comment on above: Performed By: #### 6 00-7 ####[facility] [id number] [place] [address] [place] Bacteria identified Cx Nom (Bld) CULTURE, BLOOD: No growth 5 days Normal [facility] Comment on above: Performed By: #### 6 00-7 ####[facility]IA [id number] [address] [place] [address] [place] Bacteria Wnd Culton 05-11-20 25 Bacteria identified Cx Nom (Wound) ORGANISM ID: 1 Few skin nia GRAM STAIN: Rare Gram positive cocci Rare Polymorphonuclear leukocytes Abnormal [facility] Comment on above: Performed By: #### 6 462-6 ####[facility] [id number] [place] [address] [place] CBC W Auto Differential pane l (Bld)on 05-11-2025 Basophils (Bld) [#/Vol] 0.05 10*3/uL Normal <0.11 [facility] Comment on above: Order Comment: Speci men Type: BLOOD SPECIMENOrdering Facility: [facility] Address: [address] [place] [address] Performed By: #### 5 7021-8 ####[facility] LWCLIA [id number] [place] [address] [place] Basophils/100 WBC (Bld) 0.7 % Normal [facility] Comment on above: Order Comment: Speci men Type: BLOOD SPECIMENOrdering Facility: [facility] Address: [address] [place] [address] Performed By: #### 5 7021-8 ####[facility] LWCLIA [id number] [place] [id number] [place] Differential cell count method Nom (Bld) Auto Normal [facility] Comment on above: Order Comment: Speci men Type: BLOOD SPECIMENOrdering Facility: [facility] Address: [address] [place] [address] Performed By: #### 5 7021-8 ####[facility] LWCLIA [id number] [place] [address] [place] Eosinophils (Bld) [#/Vol] 0.07 10*3/uL Normal <0.46 [facility] Comment on above: Order Comment: Speci men Type: BLOOD SPECIMENOrdering Facility: [facility] Address: [address] [place] [address] Performed By: #### 5 7021-8 ####[facility] LWCLIA [id number] [place] [id number] [place] Eosinophils/100 WBC (Bld) 0.9 % Normal [facility] Comment on above: Order Comment: Speci men Type: BLOOD SPECIMENOrdering Facility: [facility] Address: [address] [place] [address] Performed By: #### 5 7021-8 ####[facility] LWCLIA [id number] [place] [id number] [place] Erythrocyte distribution width (RBC) [Ratio] 13.5 % Normal 11.5-15.0 [facility] Comment on above: Order Comment: Speci men Type: BLOOD SPECIMENOrdering Facility: [facility] Address: [address] [place] [address] Performed By: #### 5 7021-8 ####[facility] LWCLIA [id number] [address] STATES OF [facility] Hematocrit (Bld) [Volume fraction] 44.4 % Normal 36.0-46.0 [facility] Comment on above: Order Comment: Speci men Type: BLOOD SPECIMENOrdering Facility: [facility] Address: [address] [place] [address] Performed By: #### 5 7021-8 ####[facility] LWCLIA [id number] [place] [id number] [place] Hemoglobin (Bld) [Mass/Vol] 14.7 g/dL Normal 11.5-15.5 [facility] Comment on above: Order Comment: Speci men Type: BLOOD SPECIMENOrdering Facility: [facility] Address: [address] [place] [address] Performed By: #### 5 7021-8 ####[facility] LWCLIA [id number] [place] [id number] [place] Immature granulocytes (Bld) [#/Vol] 0.08 10*3/uL Normal <0.10 [facility] Comment on above: Order Comment: Speci men Type: BLOOD SPECIMENOrdering Facility: [facility] Address: [address] [place] [address] Performed By: #### 5 7021-8 ####[facility] LWCLIA [id number] [place] [id number] [facility] Immature granulocytes/100 WBC (Bld) 1.1 % Normal [facility] Comment on above: Order Comment: Speci men Type: BLOOD SPECIMENOrdering Facility: [facility] Address: [address] [place] [address] Performed By: #### 5 7021-8 ####[facility] LWIA [id number] [place] [address] [place] [facility] Lymphocytes (Bld) [#/Vol] 2.37 10*3/uL Normal 1.00-4.00 [facility] Comment on above: Order Comment: Speci men Type: BLOOD SPECIMENOrdering Facility: [facility] Address: [address] [place] [address] Performed By: #### 5 7021-8 ####[facility] LWCLIA [id number] [address] Lymphocytes/100 WBC (Bld) 31.5 % Normal [facility] Comment on above: Order Comment: Speci men Type: BLOOD SPECIMENOrdering Facility: [facility] Address: [address] [place] [address] Performed By: #### 5 7021-8 ####[facility] LWCLIA [id number] [place] [id number] [place] MCH (RBC) [Entitic mass] 29.6 pg Normal 26.0-34.0 [facility] Comment on above: Order Comment: Speci men Type: BLOOD SPECIMENOrdering Facility: [facility] Address: [address] [place] [address] Performed By: #### 5 7021-8 ####[facility] LWCLIA [id number] [place] [address] [place] MCHC (RBC) [Mass/Vol] 33.1 g/dL Normal 30.5-36.0 [facility] Comment on above: Order Comment: Speci men Type: BLOOD SPECIMENOrdering Facility: [facility] Address: [address] [place] [address] Performed By: #### 5 7021-8 ####[facility] LWIA [id number] [place] [id number] [place] MCV (RBC) [Entitic vol] 89.5 fL Normal 80.0-100.0 [facility] Comment on above: Order Comment: Speci men Type: BLOOD SPECIMENOrdering Facility: [facility] Address: [address] [place] [address] Performed By: #### 5 7021-8 ####[facility] [id number] [place] [id number] [place] Monocytes (Bld) [#/Vol] 0.49 10*3/uL Normal <0.87 [facility] Comment on above: Order Comment: Speci men Type: BLOOD SPECIMENOrdering Facility: [facility] Address: [address] [place] [address] Performed By: #### 5 7021-8 ####[facility] LWCLIA [id number] [place] [id number] [place] Monocytes/100 WBC (Bld) 6.5 % Normal [facility] Comment on above: Order Comment: Speci men Type: BLOOD SPECIMENOrdering Facility: [facility] Address: [address] [place] [address] Performed By: #### 5 7021-8 ####[facility] LWCLIA [id number] [place] [id number] [place] Neutrophils (Bld) [#/Vol] 4.47 10*3/uL Normal 1.45-7.50 [facility] Comment on above: Order Comment: Speci men Type: BLOOD SPECIMENOrdering Facility: [facility] Address: [address] [place] [address] Performed By: #### 5 7021-8 ####[facility] LWIA [id number] [place] [id number] [facility] Neutrophils/100 WBC (Bld) 59.3 % Normal [facility] Comment on above: Order Comment: Speci men Type: BLOOD SPECIMENOrdering Facility: [facility] Address: [address] [place] [address] Performed By: #### 5 7021-8 ####[facility] LWIA [id number] [address] Nucleated RBC (Bld) [#/Vol] 10*3/uL Normal <0.01 [facility] Comment on above: Order Comment: Speci men Type: BLOOD SPECIMENOrdering Facility: [facility] Address: [address] [place] [address] Performed By: #### 5 7021-8 ####[facility] LWCLIA [id number] [address] [place] [facility] Nucleated RBC/100 WBC (Bld) [Ratio] 0.0 /100 WBC Normal [facility] Comment on above: Order Comment: Speci men Type: BLOOD SPECIMENOrdering Facility: [facility] Address: [address] [place] [address] Performed By: #### 5 7021-8 ####[facility] LWCLIA [id number] [place] [id number] [place] Platelet mean volume (Bld) [Entitic vol] 10.1 fL Normal 9.0-12.7 [facility] Comment on above: Order Comment: Speci men Type: BLOOD SPECIMENOrdering Facility: [facility] Address: [address] [place] [address] Performed By: #### 5 7021-8 ####[facility] LWCLIA [id number] [place] [id number] [place] Platelets (Bld) [#/Vol] 281 10*3/uL Normal 150-400 [facility] Comment on above: Order Comment: Speci men Type: BLOOD SPECIMENOrdering Facility: [facility] Address: [address] [place] [address] Performed By: #### 5 7021-8 ####[facility] LWCLIA [id number] [place] [id number] [place] [facility] [place] RBC (Bld) [#/Vol] 4.96 10*6/uL Normal 3.90-5.20 [facility] Comment on above: Order Comment: Speci men Type: BLOOD SPECIMENOrdering Facility: [facility] Address: [address] [place] [address] Performed By: #### 5 7021-8 ####[facility] LWCLIA [id number] [place] [id number] [facility] WBC (Bld) [#/Vol] 7.53 10*3/uL Normal 3.70-11.00 [facility] Comment on above: Order Comment: Speci men Type: BLOOD SPECIMENOrdering Facility: [facility] Address: [address] [place] [address] Performed By: #### 5 7021-8 ####[facility] LWCLIA [id number] [place] [id number] [facility] CNPDesirae 05-11-2025 [facility] Telephone (FVPRAD) ----- MATTHEW HUANG ([id number]) 1990 F [facility] Date Time Provider Department 05/11/25 [facility] During your visit today, we recorded the following information about you: Kendell Ring MD 05/11/2025 6:44 PM Signed 35 year-old female with history of significant multiple allergies to many antibiotics presenting to [facility] ED with infected breast due to infected [...] Claritin. Date Reviewed: 05/11/2025 Reviewed by: Winnie Ocampo, MIRNA - Fully Assessed Prescriptions as of 05/11/2025 [...] diabetes mellitus (more content not included)... Normal [facility] CONSULTon 05-11-2025 CONSULT HNO ID: [id number] Author: DURAN KERN MD Service: Infectious Disease Author Type: Physician Type: Consults Filed: 05/12/2025 04:31 Note Text: [facility] - Consultation MATTHEW HUANG : 1990 AGE: 35 SEX: F CSN: [id number] [facility] SVC: Medical LOCATION: [facility] ATTENDING PHYSICIAN: GABRIELA BOOTHE DATE OF SERVICE: [...] DAILY Sixto Kapadia MD 1,000 mg at 05/12/25 004 escitalopram oxalate 20 mg tab(s) (LEXAPRO) 20 mg ORAL DAILY Sixto Kapadia MD 20 mg at 05/12/2539 lamoTRIgine 100 mg tab(s) (LaMICtal) 100 mg ORAL AT BEDTIME Sixto Kapadia MD 100 mg at 05/12/25118 meropenem 1 g in NaCl 0.9% 100 mL Vial-Bag (MERREM) 1 g INTRAVENOUS q 8 H Duran Kern MD Stopped at 05/12/25 011 risperiDONE (RisperDAL) tab(s) 3 mg 3 mg ORAL AT BEDTIME Sixto Kapadia MD 3 mg at 05/12/25 004 diphenhydrAMINE 50 mg injection (BENADRYL) 50 mg [...] of t (more content not included)... Normal [facility] CONSULT PROGon 05-11-2025 CONSULT PROG HNO ID: [id number] Author: DURAN KERN MD Service: Infectious Disease [...] cultures cul obtained Duran Kern MD 05/11/2025 ph:[phone] Normal [facility] Comprehensive metabolic 2000 panelon 05-11-2025 Albumin [Mass/Vol] 4.7 g/dL Normal 3.9-4.9 [facility] Comment on above: Order Comment: Speci men Type: BLOOD SPECIMENOrdering Facility: [facility] Address: [address] [place] [address] Performed By: #### 2 4328, ####[facility] LWCLIA [id number] [place] [address] [place] ALP [Catalytic activity/Vol] 120 U/L Normal 34-123 [facility] Comment on above: Order Comment: Speci men Type: BLOOD SPECIMENOrdering Facility: [facility] Address: [address] [place] [address] Performed By: #### 2 4323, ####[facility] LWCLIA [id number] [place] [id number] [place] ALT [Catalytic activity/Vol] 53 U/L High 7-38 [facility] Comment on above: Order Comment: Speci men Type: BLOOD SPECIMENOrdering Facility: [facility] Address: [address] [place] [id number] Performed By: #### 2 4323-8, ####[facility] LWCLIA [id number] [place] [address] [place] Anion gap [Moles/Vol] 13 mmol/L Normal 8-15 [facility] Comment on above: Order Comment: Speci men Type: BLOOD SPECIMENOrdering Facility: [facility] Address: [address] [place], [place] [address] Performed By: #### 2 4323-8, ####[facility] LWCLIA [id number] [place] [address] [place] AST [Catalytic activity/Vol] 37 U/L High 13-35 [facility] Comment on above: Order Comment: Speci men Type: BLOOD SPECIMENOrdering Facility: [facility] Address: [address] [place], [place] [address] Performed By: #### 2 4323-8, ####[facility] LWCLIA [id number] [place] [id number] [place] Bilirubin [Mass/Vol] 0.3 mg/dL Normal 0.2-1.3 [facility] Comment on above: Order Comment: Speci men Type: BLOOD SPECIMENOrdering Facility: [facility] Address: [address] [place], [place] [address] Performed By: #### 2 4323-8, ####[facility] LWCLIA [id number] [place] [id number] [place] Calcium [Mass/Vol] 9.2 mg/dL Normal 8.5-10.2 [facility] Comment on above: Order Comment: Speci men Type: BLOOD SPECIMENOrdering Facility: [facility] Address: [address] [place], [place] [address] Performed By: #### 2 4323-8, ####[facility] LWCLIA [id number] [place] [id number] [place] Chloride [Moles/Vol] 100 mmol/L Normal 98-107 [facility] Comment on above: Order Comment: Speci men Type: BLOOD SPECIMENOrdering Facility: [facility] Address: [address] [place] [address] Performed By: #### 2 4323-8, ####[facility] LWCLIA [id number] [place] [id number] [place] CO2 [Moles/Vol] 24 mmol/L Normal 22-30 [facility] Comment on above: Order Comment: Speci men Type: BLOOD SPECIMENOrdering Facility: [facility] Address: [address] [place] [address] Performed By: #### 2 4323-8, ####[facility] LWCLIA [id number] [place] [id number] [place] Creatinine [Mass/Vol] 0.80 mg/dL Normal 0.58-0.96 [facility] Comment on above: Order Comment: Speci men Type: BLOOD SPECIMENOrdering Facility: [facility] Address: [address] [place] [address] Performed By: #### 2 4323-8, ####[facility] LWCLIA [id number] [address] Creatinine and Glomerular filtration rate.predicted panel (S/P/Bld) 99 mL/min/1.73m??? Normal >=60 [facility] Comment on above: Order Comment: Speci men Type: BLOOD SPECIMENOrdering Facility: [facility] Address: [address] [place] [address] Result Comment: Anne-Marie mated Glomerular Filtration Rate [...] actual GFR. Performed By: #### 2 4323-8, ####[facility] LWCLIA [id number] [place] [address] [place] Glucose [Mass/Vol] 90 mg/dL Normal 74-99 [facility] Comment on above: Order Comment: Mookie roberts Type: BLOOD SPECIMENOrdering Facility: [facility] Address: [address] [place] [address] Result Comment: The [place] [employer] Association (ADA) provides guidance for cutoff [...] Standards of Medical Care in Diabetes 2016, [place] [employer]. Diabetes Care. 2016.39(Suppl 1). Performed By: #### 2 4323-8, ####[facility] LWCLIA [id number] [place] [id number] [place] Potassium [Moles/Vol] 3.9 mmol/L Normal 3.7-5.1 [facility] Comment on above: Order Comment: Mookie roberts Type: BLOOD SPECIMENOrdering Facility: [facility] Address: [address] [place] [address] Performed By: #### 2 4323-8, ####[facility] LWCLIA [id number] [place] [address] [place] Protein [Mass/Vol] 7.6 g/dL Normal 6.3-8.0 [facility] Comment on above: Order Comment: Speci men Type: BLOOD SPECIMENOrdering Facility: [facility] Address: [address] [place], [place] [address] Performed By: #### 2 4323-8, ####[facility] LWCLIA [id number] [place] [address] [facility] Sodium [Moles/Vol] 137 mmol/L Normal 136-144 [facility] Comment on above: Order Comment: Speci men Type: BLOOD SPECIMENOrdering Facility: [facility] Address: [address] [place] [address] Performed By: #### 2 4323-8, ####[facility] LWCLIA [id number] [place] [address] [facility] Urea nitrogen [Mass/Vol] 20 mg/dL Normal 7-21 [facility] Comment on above: Order Comment: Speci men Type: BLOOD SPECIMENOrdering Facility: [facility] Address: [address] [place] [address] Performed By: #### 2 4323-8, ####[facility] LWCLIA [id number] [place] [address] [facility] ED NOTEon 05-11-2025 ED NOTE HNO ID: [id number] Author: JAJA NOE RN Service: ? Author Type: Registered Nurse Type: ED Notes Filed: 05/11/2025 21:58 Note Text: Report to MMT at bedside, pt transferred to [facility] with belongings in stable condition. Normal [facility] ED NOTE HNO ID: [id number] Author: JAJA NOE RN Service: ? Author Type: Registered Nurse Type: ED Notes Filed: 05/11/2025 21:31 Note Text: Report taken from Lebron BRADLEY. Pt waiting for transport. Normal [facility] ED NOTE HNO ID: [id number] Author: ABE ALCALA RN Service: Nursing Author Type: Registered Nurse Type: ED Notes Filed: 05/11/2025 21:17 Note Text: Report given to Brandon BRADLEY at [facility]. Pt awaiting MMT. Normal [facility] ED NOTE HNO ID: [id number] Author: ABE ALCALA RN Service: Nursing Author Type: Registered Nurse Type: ED Notes Filed: 05/11/2025 20:53 Note Text: Pt called staff to notify of red rash now on right breast. Normal [facility] ED NOTE Normal [facility] ED NOTE HNO ID: [id number] Author: ABE ALCALA RN Service: Nursing Author Type: Registered Nurse Type: ED Notes Filed: 05/11/2025 19:25 Note Text: Pt reports slight itching to head. Provider notified. Normal [facility] ED PROV NOTEon 05-11-2025 ED PROV NOTE Normal [facility] HISTORY PHYSICALon HISTORY PHYSICAL HNO ID: [id number] Author: SIXTO KAPADIA MD Service: Hospital Medicine Author Type: Physician Type: H&P Filed: 05/11/2025 23:22 Note Text: HOSPITAL MEDICINE HISTORY AND PHYSICAL EXAM PATIENT NAME: Matthew Huang SERVICE DATE: 05/11/2025 SERVICE TIME: 11:16 PM Primary Care Physician: No primary care provider on file. NIGHT COVERAGE [phone] ASSESSMENT AND PLAN This is a 35 [...] on her scalp but no evidence of red man syndrome. She has no leukocytosis on labs. Mild transaminitis noted otherwise lab work is unremarkable. PAST MEDICAL HISTORY: PAST MEDICAL HISTORY Diagnosis Date Endometriosis 10/26/2014 never had diagnostic lap to confirm, patient did not want surgery NIKKIE (generalized anxiety disorder) Gestational diabetes mellitus (GDM) affecting second ([facility]) 05/25/2022 Infertility, female Migraine without aura and without status migrainosus, not intractable 07/18/2019 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[facility]) 08/27/2015 Panic disorder without agoraphobia PMH - [...] other a (more content not included)... Normal [facility] Magnesium SerPl-mCncon 05-11 Magnesium [Mass/Vol] 2.4 mg/dL High 1.7-2.3 [facility] Comment on above: Order Comment: Speci men Type: BLOOD SPECIMENOrdering Facility: [facility] Address: [address] [place] [address] Performed By: #### 2 4323-8, 20019-0 ####[facility] LWCLIA [id number] [place] [address] [place] SEPSIS LACTATE W/ REFLEX (IN ITIAL)on 05-11-2025 Lactate [Moles/Vol] 0.9 mmol/L Normal <=2.0 [facility] Comment on above: Order Comment: Speci men Type: BLOOD SPECIMENOrdering Facility: [facility] Address: [address] [place] [address] Performed By: #### S LACTR ####[facility] LWCLIA [id number] [place] [id number] [place] TRYPTASE BLOODon 05-11-2025 Tryptase [Mass/Vol] 3.0 ug/L Normal <8.4 [facility] Comment on above: Order Comment: Speci men Type: BLOOD SPECIMENOrdering Facility: [facility] Address: [address] [place] [address] Performed By: #### T RYPT ####[facility] LABCLIA [id number] [place] [address] [place] BACTERIAL VAGINOSIS NAATon 0 04-19-2025 Lactobacillus crispatus+gasseri+analia senii + Gardnerella vaginalis + Atopobium vaginae rRNA LAURA+probe Ql (Vag fld) Detected Abnormal Not detected [facility] Comment on above: Order Comment: Speci men Type: SWABOrdering Facility: [facility] Address: [address] [place] [address] Performed By: #### B VAMP, CVTV ####[facility] LABCLIA [id number] [place] [address] [place] Bacteria Ur Culton Bacteria identified Cx Nom (U) Abnormal [facility] Comment on above: Performed By: #### 6 30-4 ####[facility] LABCLIA [id number] [place] [address] [place] ALESSANDRA/TRICHOMONAS NAATon 0 04-19-2025 C. glabrata RNA LAURA+probe Ql (Vag fld) Not detected Normal Not detected [facility] Comment on above: Order Comment: Speci men Type: SWABOrdering Facility: [facility] Address: [address] [place] [address] Performed By: #### B VAMP, CVTV ####[facility] LABCLIA [id number] [place] [address] [place] Alessandra sp DNA LAURA+probe Ql (Vag fld) Detected Abnormal Not detected [facility] Comment on above: Order Comment: Speci men Type: SWABOrdering Facility: [facility] Address: [address] [place] [address] Result Comment: The Alessandra species group target includes C. albicans, C. tropicalis, C. parapsilosis, and C. dubliniensis. Performed By: #### B VAMP, CVTV ####[facility] LABCLIA [id number] [address] [place] T. vaginalis DNA LAURA+probe Ql (Unsp spec) Not detected Normal Not detected [facility] Comment on above: Order Comment: Speci men Type: SWABOrdering Facility: [facility] Address: [address] [place] [address] Performed By: #### B VAMP, CVTV ####[facility] LABCLIA [id number] [address] [place] CNOVon 04-19-2025 CNOV Normal [facility] UA DIP, URINE (POC)on 2024 BILIRUBIN UA (POCT) Negative Negative [facility] CLARITY UA (POCT) Slightly Cloudy Cl [facility] COLOR UA (POCT) Yellow [facility] GLUCOSE UA (POCT) Negative Negative mg/dL [facility] Hemoglobin Ql (U) Trace-lysed Abnormal Negative [facility] Interpretation and review of laboratory results Abnormal [facility] KETONE UA (POCT) Negative Negative mg/dL [facility] LEUKOCYTES UA (POCT) Large Abnormal Negative [facility] NITRITE UA (POCT) Negative Negative [facility] PH UA (POCT) 6 4.5 - 8.0 [facility] Protein Ql (U) Negative Negative mg/dL [facility] SPECIFIC GRAVITY UA (POCT) 1.02 1.005 - 1.030 [facility] UROBILINOGEN UA (POCT) 0.2 Normal E.U./dL [facility] Location:[facility], [address], [place], [address] [facility] POINT OF CARE [facility] CNOVon 03-29-2025 CNOV Normal [facility] Bacteria Ur Culton Bacteria identified Cx Nom (U) Normal [facility] Comment on above: Performed By: #### 2 4356-8 ####[facility] LWCLIA [id number] [place] [address] [place]#### 630-4 ####[facility] LABCLIA [id number] [place] [address] [place] CBC W Auto Differential pane l (Bld)on 03-28-2025 Basophils (Bld) [#/Vol] 0.04 10*3/uL Normal <0.11 [facility] Comment on above: Order Comment: Speci men Type: BLOOD SPECIMENOrdering Facility: [facility] Address: [address] [place] [address] Performed By: #### 5 7021-8 ####[facility] LWCLIA [id number] [address] [place] [facility] Basophils/100 WBC (Bld) 0.4 % Normal [facility] Comment on above: Order Comment: Speci men Type: BLOOD SPECIMENOrdering Facility: [facility] Address: [address] [place] [address] Performed By: #### 5 7021-8 ####[facility] LWCLIA [id number] [place] [address] [place] Differential cell count method Nom (Bld) Auto Normal [facility] Comment on above: Order Comment: Speci men Type: BLOOD SPECIMENOrdering Facility: [facility] Address: [address] [place] [address] Performed By: #### 5 7021-8 ####[facility] LWCLIA [id number] [address] [place] Eosinophils (Bld) [#/Vol] 0.25 10*3/uL Normal <0.46 [facility] Comment on above: Order Comment: Speci men Type: BLOOD SPECIMENOrdering Facility: [facility] Address: [address] [place] [address] Performed By: #### 5 7021-8 ####[facility] LWCLIA [id number] [address] [place] [facility] Eosinophils/100 WBC (Bld) 2.8 % Normal [facility] Comment on above: Order Comment: Speci men Type: BLOOD SPECIMENOrdering Facility: [facility] Address: [address] [place] [address] Performed By: #### 5 7021-8 ####[facility] LWCLIA [id number] [place] [address] [place] Erythrocyte distribution width (RBC) [Ratio] 13.8 % Normal 11.5-15.0 [facility] Comment on above: Order Comment: Speci men Type: BLOOD SPECIMENOrdering Facility: [facility] Address: [address] [place] [address] Performed By: #### 5 7021-8 ####[facility] LWIA [id number] [address] [place] Hematocrit (Bld) [Volume fraction] 42.9 % Normal 36.0-46.0 [facility] Comment on above: Order Comment: Speci men Type: BLOOD SPECIMENOrdering Facility: [facility] Address: [address] [place] [address] Performed By: #### 5 7021-8 ####[facility] LWIA [id number] [address] [place] Hemoglobin (Bld) [Mass/Vol] 14.1 g/dL Normal 11.5-15.5 [facility] Comment on above: Order Comment: Speci men Type: BLOOD SPECIMENOrdering Facility: [facility] Address: [address] [place] [address] Performed By: #### 5 7021-8 ####[facility] LWCLIA [id number] [place] [id number] [place] Immature granulocytes (Bld) [#/Vol] 0.15 10*3/uL High <0.10 [facility] Comment on above: Order Comment: Speci men Type: BLOOD SPECIMENOrdering Facility: [facility] Address: [address] [place] [address] Performed By: #### 5 7021-8 ####[facility] LWCLIA [id number] [place] [id number] [place] Immature granulocytes/100 WBC (Bld) 1.7 % Normal [facility] Comment on above: Order Comment: Speci men Type: BLOOD SPECIMENOrdering Facility: [facility] Address: [address] [place] [address] Performed By: #### 5 7021-8 ####[facility] LWIA [id number] [place] [id number] [place] Lymphocytes (Bld) [#/Vol] 2.55 10*3/uL Normal 1.00-4.00 [facility] Comment on above: Order Comment: Speci men Type: BLOOD SPECIMENOrdering Facility: [facility] Address: [address] [place] [address] Performed By: #### 5 7021-8 ####[facility] LWIA [id number] [place] [address] [place] Lymphocytes/100 WBC (Bld) 28.1 % Normal [facility] Comment on above: Order Comment: Speci men Type: BLOOD SPECIMENOrdering Facility: [facility] Address: [address] [place] [address] Performed By: #### 5 7021-8 ####[facility] LWIA [id number] [place] [id number] [place] MCH (RBC) [Entitic mass] 29.6 pg Normal 26.0-34.0 [facility] Comment on above: Order Comment: Speci men Type: BLOOD SPECIMENOrdering Facility: [facility] Address: [address] [place] [address] Performed By: #### 5 7021-8 ####[facility] LWCLIA [id number] [place] [id number] [place] MCHC (RBC) [Mass/Vol] 32.9 g/dL Normal 30.5-36.0 [facility] Comment on above: Order Comment: Speci men Type: BLOOD SPECIMENOrdering Facility: [facility] Address: [address] [place] [address] Performed By: #### 5 7021-8 ####[facility] LWCLIA [id number] [place] [id number] [place] MCV (RBC) [Entitic vol] 90.1 fL Normal 80.0-100.0 [facility] Comment on above: Order Comment: Speci men Type: BLOOD SPECIMENOrdering Facility: [facility] Address: [address] [place] [address] Performed By: #### 5 7021-8 ####[facility] LWIA [id number] [place] [address] [place] Monocytes (Bld) [#/Vol] 0.76 10*3/uL Normal <0.87 [facility] Comment on above: Order Comment: Speci men Type: BLOOD SPECIMENOrdering Facility: [facility] Address: [address] [place] [address] Performed By: #### 5 7021-8 ####[facility] LWCLIA [id number] [place] [address] [place] Monocytes/100 WBC (Bld) 8.4 % Normal [facility] Comment on above: Order Comment: Speci men Type: BLOOD SPECIMENOrdering Facility: [facility] Address: [address] [place] [address] Performed By: #### 5 7021-8 ####[facility] LWCLIA [id number] [place] [address] [place] Neutrophils (Bld) [#/Vol] 5.31 10*3/uL Normal 1.45-7.50 [facility] Comment on above: Order Comment: Speci men Type: BLOOD SPECIMENOrdering Facility: [facility] Address: [address] [place] [address] Performed By: #### 5 7021-8 ####[facility] LWCLIA [id number] [place] [address] [place] Neutrophils/100 WBC (Bld) 58.6 % Normal [facility] Comment on above: Order Comment: Speci men Type: BLOOD SPECIMENOrdering Facility: [facility] Address: [address] [place] [address] Performed By: #### 5 7021-8 ####[facility] LWCLIA [id number] [place] [id number] [place] Nucleated RBC (Bld) [#/Vol] 10*3/uL Normal <0.01 [facility] Comment on above: Order Comment: Speci men Type: BLOOD SPECIMENOrdering Facility: [facility] Address: [address] [place] [address] Performed By: #### 5 7021-8 ####[facility] LWCLIA [id number] [place] [id number] [place] Nucleated RBC/100 WBC (Bld) [Ratio] 0.0 /100 WBC Normal [facility] Comment on above: Order Comment: Speci men Type: BLOOD SPECIMENOrdering Facility: [facility] Address: [address] [place] [address] Performed By: #### 5 7021-8 ####[facility] LWCLIA [id number] [place] [id number] [place] Platelet mean volume (Bld) [Entitic vol] 9.9 fL Normal 9.0-12.7 [facility] Comment on above: Order Comment: Speci men Type: BLOOD SPECIMENOrdering Facility: [facility] Address: [address] [place] [address] Performed By: #### 5 7021-8 ####[facility] LWCLIA [id number] [place] [id number] [place] Platelets (Bld) [#/Vol] 273 10*3/uL Normal 150-400 [facility] Comment on above: Order Comment: Speci men Type: BLOOD SPECIMENOrdering Facility: [facility] Address: [address] [place] [address] Performed By: #### 5 7021-8 ####[facility] LWCLIA [id number] [place] [id number] [place] [facility] RBC (Bld) [#/Vol] 4.76 10*6/uL Normal 3.90-5.20 [facility] Comment on above: Order Comment: Speci men Type: BLOOD SPECIMENOrdering Facility: [facility] Address: [address] [place] [address] Performed By: #### 5 7021-8 ####[facility] LWCLIA [id number] [place] [id number] [place] [facility] WBC (Bld) [#/Vol] 9.06 10*3/uL Normal 3.70-11.00 [facility] Comment on above: Order Comment: Speci men Type: BLOOD SPECIMENOrdering Facility: [facility] Address: [address] [place] [address] Performed By: #### 5 7021-8 ####[facility] LWCLIA [id number] [place] [id number] [place] CT ABD/PEL W IVCONon 025 CT ABD/PEL W IVCON Normal [facility] Comprehensive metabolic 2000 panelon 03-28-2025 Albumin [Mass/Vol] 4.5 g/dL Normal 3.9-4.9 [facility] Comment on above: Order Comment: Speci men Type: BLOOD SPECIMENOrdering Facility: [facility] Address: [address] [place] [address] Performed By: #### 2 4323-8, 85829-9 ####[facility] LWCLIA [id number] [address] [place] [facility] ALP [Catalytic activity/Vol] 127 U/L High 34-123 [facility] Comment on above: Order Comment: Speci men Type: BLOOD SPECIMENOrdering Facility: [facility] Address: [address] [place] [address] Performed By: #### 2 4323-8, ####[facility] LWCLIA [id number] [place] [id number] [place] ALT [Catalytic activity/Vol] 49 U/L High 7-38 [facility] Comment on above: Order Comment: Speci men Type: BLOOD SPECIMENOrdering Facility: [facility] Address: [address] [place] [address] Performed By: #### 2 432-8, ####[facility] LWCLIA [id number] [address] STATES OF [facility] Anion gap [Moles/Vol] 11 mmol/L Normal 8-15 [facility] Comment on above: Order Comment: Speci men Type: BLOOD SPECIMENOrdering Facility: [facility] Address: [address] [place] [address] Performed By: #### 2 8, ####[facility] LWCLIA [id number] [address] [place] [facility] AST [Catalytic activity/Vol] 27 U/L Normal 13-35 [facility] Comment on above: Order Comment: Speci men Type: BLOOD SPECIMENOrdering Facility: [facility] Address: [address] [place] [address] Performed By: #### 2 4328, ####[facility] LWCLIA [id number] [place] [id number] [place] Bilirubin [Mass/Vol] 0.4 mg/dL Normal 0.2-1.3 [facility] Comment on above: Order Comment: Speci men Type: BLOOD SPECIMENOrdering Facility: [facility] Address: [address] [place] [address] Performed By: #### 2 4323-8, ####[facility] LWCLIA [id number] [place] [id number] [place] Calcium [Mass/Vol] 9.0 mg/dL Normal 8.5-10.2 [facility] Comment on above: Order Comment: Speci men Type: BLOOD SPECIMENOrdering Facility: [facility] Address: [address] [place] [address] Performed By: #### 2 4323-8, ####[facility] LWCLIA [id number] [place] [address] [place] Chloride [Moles/Vol] 102 mmol/L Normal 98-107 [facility] Comment on above: Order Comment: Speci men Type: BLOOD SPECIMENOrdering Facility: [facility] Address: [address] [place] [address] Performed By: #### 2 432-8, ####[facility] LWCLIA [id number] [place] [address] [place] CO2 [Moles/Vol] 26 mmol/L Normal 22-30 [facility] Comment on above: Order Comment: Speci men Type: BLOOD SPECIMENOrdering Facility: [facility] Address: [address] [place] [address] Performed By: #### 2 4328, ####[facility] LWCLIA [id number] [place] [address] [place] Creatinine [Mass/Vol] 0.84 mg/dL Normal 0.58-0.96 [facility] Comment on above: Order Comment: Speci men Type: BLOOD SPECIMENOrdering Facility: [facility] Address: [address] [place] [address] Performed By: #### 2 4323-8, ####[facility] LWCLIA [id number] [place] [address] [place] Creatinine and Glomerular filtration rate.predicted panel (S/P/Bld) 94 mL/min/1.73m??? Normal >=60 [facility] Comment on above: Order Comment: Speci men Type: BLOOD SPECIMENOrdering Facility: [facility] Address: [address] [place] [address] Result Comment: Anne-Marie mated Glomerular Filtration Rate [...] actual GFR. Performed By: #### 2 4323-8, ####[facility] LWCLIA [id number] [place] [id number] [place] Glucose [Mass/Vol] 89 mg/dL Normal 74-99 [facility] Comment on above: Order Comment: Mookie roberts Type: BLOOD SPECIMENOrdering Facility: [facility] Address: [address] [place] [address] Result Comment: The [place] [employer] (ADA) provides guidance for cutoff [...] Standards of Medical Care in Diabetes 2016, [place] [employer]. Diabetes Care. 2016.39(Suppl 1). Performed By: #### 2 4323-8, ####[facility] LWCLIA [id number] [place] [id number] [place] Potassium [Moles/Vol] 4.0 mmol/L Normal 3.7-5.1 [facility] Comment on above: Order Comment: Mookie roberts Type: BLOOD SPECIMENOrdering Facility: [facility] Address: [address] [place] [address] Performed By: #### 2 4323-8, ####[facility] LWCLIA [id number] [place] [address] [place] [facility] Protein [Mass/Vol] 7.2 g/dL Normal 6.3-8.0 [facility] Comment on above: Order Comment: Speci men Type: BLOOD SPECIMENOrdering Facility: [facility] Address: [address] [place] [address] Performed By: #### 2 4323-8, ####[facility] LWCLIA [id number] [place] [id number] [place] Sodium [Moles/Vol] 139 mmol/L Normal 136-144 [facility] Comment on above: Order Comment: Speci men Type: BLOOD SPECIMENOrdering Facility: [facility] Address: [address] [place] [address] Performed By: #### 2 4323-8, ####[facility] LWCLIA [id number] [address] [place] Urea nitrogen [Mass/Vol] 14 mg/dL Normal 7-21 [facility] Comment on above: Order Comment: Speci men Type: BLOOD SPECIMENOrdering Facility: [facility] Address: [address] [place] [address] Performed By: #### 2 4323-8, ####[facility] LWCLIA [id number] [place] [address] [place] ED NOTEon 03-28-2025 ED NOTE Normal [facility] ED NOTE HNO ID: [id number] Author: AINSLEY ROBERTS RN Service: Nursing Author Type: Registered Nurse Type: ED Notes Filed: 03/28/2025 16:03 Note Text: Patient requesting IV benadryl, BANDAR Coppola and Dr. Skinner aware. Normal [facility] ED PROV NOTEon 03-28-2025 ED PROV NOTE Normal [facility] Magnesium SerPl-mCncon 03-28 Magnesium [Mass/Vol] 2.3 mg/dL Normal 1.7-2.3 [facility] Comment on above: Order Comment: Speci men Type: BLOOD SPECIMENOrdering Facility: [facility] Address: [address] [place] [address] Performed By: #### 2 4323-8, 11691-2 ####[facility] LWCLIA [id number] [place] [address] [place] Urinalysis complete panel (U )on 03-28-2025 Bacteria LM.HPF (Urine sed) [#/Area] Moderate Abnormal None Seen [facility] Comment on above: Order Comment: Speci men Type: URINE SPECIMENOrdering Facility: [facility] Address: [address] [place] [address] Performed By: #### 2 4356-8 ####[facility] LWCLIA [id number] [place] [address] [place]#### 630-4 ####[facility] LABCLIA [id number] [place] [address] [place] Bilirubin Ql (U) Negative Normal Negative [facility] Comment on above: Order Comment: Speci men Type: URINE SPECIMENOrdering Facility: [facility] Address: [address] [place] [address] Performed By: #### 2 4356-8 ####[facility] LWCLIA [id number] [place] [address] [place]#### 630-4 ####[facility] LABCLIA [id number] [place] [address] [place] Clarity (Unsp spec) Cloudy Abnormal Clear [facility] Comment on above: Order Comment: Speci men Type: URINE SPECIMENOrdering Facility: [facility] Address: [address] [place] [address] Performed By: #### 2 4356-8 ####[facility] LWCLIA [id number] [place] [id number] [place]#### 630-4 ####[facility] LABCLIA [id number] [place] [address] [place] Color (U) Yellow Normal Yellow [facility] Comment on above: Order Comment: Speci men Type: URINE SPECIMENOrdering Facility: [facility] Address: [address] [place] [address] Performed By: #### 2 4356-8 ####[facility] LWCLIA [id number] [place] [address] [place]#### 630-4 ####[facility] LABCLIA [id number] [place] [address] [place] Epithelial cells LM.HPF (Urine sed) [#/Area] Few Normal [facility] Comment on above: Order Comment: Speci men Type: URINE SPECIMENOrdering Facility: [facility] Address: [address] [place] [address] Performed By: #### 2 4356-8 ####[facility] LWCLIA [id number] [place] [address] [place]#### 630-4 ####[facility] LABCLIA [id number] [facility] [place] [id number] [place] Glucose Test strip (U) [Mass/Vol] Negative Normal Negative [facility] Comment on above: Order Comment: Speci men Type: URINE SPECIMENOrdering Facility: [facility] Address: [address] [place], [place] [address] Performed By: #### 2 4356-8 ####[facility] LWCLIA [id number] [place] [id number] [place]#### 630-4 ####[facility] LABCLIA [id number] [facility] [place] [id number] [place] Hemoglobin Ql (U) 3+ Abnormal Negative [facility] Comment on above: Order Comment: Speci men Type: URINE SPECIMENOrdering Facility: [facility] Address: [address] [place] [address] Performed By: #### 2 4356-8 ####[facility] LWCLIA [id number] [place] [address] [place]#### 630-4 ####[facility] LABCLIA [id number] [place] [address] [place] Ketones Ql (U) Negative Normal Negative [facility] Comment on above: Order Comment: Speci men Type: URINE SPECIMENOrdering Facility: [facility] Address: [address] [place] [address] Performed By: #### 2 4356-8 ####[facility] LWCLIA [id number] [place] [address] [place]#### 630-4 ####[facility] LABCLIA [id number] [place] [address] [place] Leukocyte esterase Test strip Ql (U) 1+ Abnormal Negative [facility] Comment on above: Order Comment: Speci men Type: URINE SPECIMENOrdering Facility: [facility] Address: [address] [place] [address] Performed By: #### 2 4356-8 ####[facility] LWCLIA [id number] [place] [address] [place]#### 630-4 ####[facility] LABCLIA [id number] [place] [address] [place] Nitrite Ql (U) Negative Normal Negative [facility] Comment on above: Order Comment: Speci men Type: URINE SPECIMENOrdering Facility: [facility] Address: [address] [place] [address] Performed By: #### 2 4356-8 ####[facility] LWCLIA [id number] [place] [address] [place]#### 630-4 ####[facility] LABCLIA [id number] [place] [address] [place] pH (U) 6.0 [pH] Normal 5.0-8.0 [facility] Comment on above: Order Comment: Speci men Type: URINE SPECIMENOrdering Facility: [facility] Address: [address] [place] [address] Performed By: #### 2 4356-8 ####[facility] LWCLIA [id number] [place] [address] [place]#### 630-4 ####[facility] LABCLIA [id number] [place] [address] [place] Protein (U) [Mass/Vol] 2+ Abnormal Negative [facility] Comment on above: Order Comment: Speci men Type: URINE SPECIMENOrdering Facility: [facility] Address: [address] [place] [address] Performed By: #### 2 4356-8 ####[facility] LWCLIA [id number] [address] [place]#### 630-4 ####[facility] LABCLIA [id number] [place] [address] [place] RBC LM.HPF (Urine sed) [#/Area] /[HPF] Abnormal 0-3 /HPF [facility] Comment on above: Order Comment: Speci men Type: URINE SPECIMENOrdering Facility: [facility] Address: [address] [place] [address] Performed By: #### 2 4356-8 ####[facility] LWCLIA [id number] [place] [address] [place]#### 630-4 ####[facility] LABCLIA [id number] [place] [address] [place] Specific gravity (U) [Rel density] 1.025 Normal 1.005-1.030 [facility] Comment on above: Order Comment: Speci men Type: URINE SPECIMENOrdering Facility: [facility] Address: [address] [place] [address] Performed By: #### 2 4356-8 ####[facility] LWCLIA [id number] [place] [address] [place]#### 630-4 ####[facility] LABCLIA [id number] [place] [address] [place] Urobilinogen Ql (U) 0.2 EU/dL Normal 0.2-1.0 EU/dL [facility] Comment on above: Order Comment: Speci men Type: URINE SPECIMENOrdering Facility: [facility] Address: [address] [place] [address] Performed By: #### 2 4356-8 ####[facility] LWIA [id number] [place] [address] [place]#### 630-4 ####[facility] LABIA [id number] [place] [address] [place] WBC LM.HPF (Urine sed) [#/Area] /[HPF] Abnormal 0-5 /HPF [facility] Comment on above: Order Comment: Speci men Type: URINE SPECIMENOrdering Facility: [facility] Address: [address] [place] [address] Performed By: #### 2 4356-8 ####[facility] LWCLIA [id number] [place] [address] [place]#### 630-4 ####[facility] LABCLIA [id number] [place] [address] [place] ED NOTEon 03-20-2025 ED NOTE HNO ID: [id number] Author: JAJA NOE RN Service: ? Author Type: Registered Nurse Type: ED Notes Filed: 03/20/2025 20:20 Note Text: Normal [facility] ED NOTE Normal [facility] ED NOTE HNO ID: [id number] Author: JAJA NOE RN Service: ? Author Type: Registered Nurse Type: ED Notes Filed: 03/20/2025 20:18 Note Text: Normal [facility] ED NOTE Normal [facility] ED NOTE Normal [facility] ED PROV NOTEon 03-20-2025 ED PROV NOTE Normal [facility] CNPNon 03-17-2025 CNPN Telephone ([facility]) ----- MATTHEW HUANG ([id number]) 1990 [facility] Date Time Provider Department 03/17/25 JÚNIOR PRICE During your visit today, we recorded the following information about you: Rosa Issa 03/17/2025 11:32 AM Signed [employer] No-Show Documentation Matthew A Reina no showed for an appointment on 03/17/2025 with Júnior Price MD. at 10:00. The patient was was scheduled for a [facility] follow up. I called and spoke [...] only Is this the Third or Fourth No Show? Ledy Issa March 17, 2025 11:31 AM [...] Date Reviewed: 03/13/2025 Reviewed by: Sissy Felton APRN.MICROBIOLOGY TECHNICIAN - Fully Assessed Prescriptions as of 03/17/2025 [...] disorder with (more content not included)... Normal [facility] CNOVon 03-13-2025 CNOV Normal [facility] Absolute neutrophil countOrd ered By: Araseli Babb on 03-10-2025 Neutrophils (Bld) [#/Vol] 6.4 10*3/uL 2.0-7.7 [facility] Anion gap in Serum or Plasma Ordered By: Araseli Babb on 03-10-2025 Anion gap [Moles/Vol] 11 mmol/L 04-06 [facility] BUN/creatinine ratioOrdered By: Araseli Babb on 03-10-2025 Urea nitrogen/Creatinine [Mass ratio] 17.6 mg/mg - [facility] Basic Metabolic Profile (BMP )on 03-10-2025 BUN/CRE 17.6 RATIO Normal - [facility] Comment on above: Performed By: #### L 500.2500, L100.0100, L501.5200, L501.3620 #### [facility] [address] [place], [address] Calcium [Mass/Vol] 8.4 mg/dL Normal 7.6-11.0 [facility] Comment on above: Performed By: #### L 500.2500, L100.0100, L501.5200, L501.3620 #### [facility] [address] [place], [address] Chloride [Moles/Vol] 103 mmol/L Normal 98-108 [facility] Comment on above: Performed By: #### L 500.2500, L100.0100, L501.5200, L501.3620 #### [facility] [address] [place], [address] CO2 [Moles/Vol] 24.6 mmol/L Normal 21.0-32.0 [facility] Comment on above: Performed By: #### L 500.2500, L100.0100, L501.5200, L501.3620 #### [facility] [address] [place], [address] Creatinine [Mass/Vol] 0.90 mg/dL Normal 0.70-1.20 [facility] Comment on above: Performed By: #### L 500.2500, L100.0100, L501.5200, L501.3620 #### [facility] [address] [place], [address] ECRCL 92.74 ml/min Normal 50-250 [facility] Comment on above: Performed By: #### L 500.2500, L100.0100, L501.5200, L501.3620 #### [facility] [address] [place], [address] GAP 11 Normal 5-15 [facility] Comment on above: Performed By: #### L 500.2500, L100.0100, L501.5200, L501.3620 #### [facility] [address] [place], [address] GFR/1.73 sq M.predicted among non-blacks MDRD (S/P/Bld) [Vol rate/Area] 86 mL/min/{1.73_m2} Normal >60 [facility] Comment on above: Result Comment: mL/m in/1.73m2 CKD-EPI Creatinine Equation (2020) Performed By: #### L 500.2500, L100.0100, L501.5200, L501.3620 #### [facility] [address] [place], [address] Glucose [Mass/Vol] 114 mg/dL High 70-99 [facility] Comment on above: Performed By: #### L 500.2500, L100.0100, L501.5200, L501.3620 #### [facility] [address] [place], [address] Potassium [Moles/Vol] 3.5 mmol/L Normal 3.3-5.1 [facility] Comment on above: Performed By: #### L 500.2500, L100.0100, L501.5200, L501.3620 #### [facility] [address] [place], [address] Sodium [Moles/Vol] 139 mmol/L Normal 133-145 [facility] Comment on above: Performed By: #### L 500.2500, L100.0100, L501.5200, L501.3620 #### [facility] [address] [place], [address] Urea nitrogen [Mass/Vol] 16 mg/dL Normal 4-19 [facility] Comment on above: Performed By: #### L 500.2500, L100.0100, L501.5200, L501.3620 #### [facility] [address] [place], [address] Blood band neutrophil count as percentage of total leukocytesOrdered By: Araseli Babb on 03-10-2025 Band form neutrophils/100 WBC (Bld) 3 % 0-5 [facility] Blood eosinophils/100 leukoc ytesOrdered By: Araseli Babb on 03-10-2025 Eosinophils/100 WBC (Bld) 2 % 0-5 [facility] Blood lymphocytes/100 leukoc ytesOrdered By: Araseli Babb on 03-10-2025 Lymphocytes/100 WBC (Bld) 35 % 19-41 [facility] Blood monocytes/100 leukocyt esOrdered By: Araseli Babb on 03-10-2025 Monocytes/100 WBC (Bld) 6 % 0-10 [facility] CBC W/Diff, Automatedon 02-21 Absolute Lymph 3.92 X10 3/uL Normal 0.83-4.51 [facility] Comment on above: Performed By: #### L 500.2500, L100.0100, L501.5200, L501.3620 #### [facility] [address] [place], [address] Absolute Neut 6.4 X10 3/uL Normal 2.0-7.7 [facility] Comment on above: Performed By: #### L 500.2500, L100.0100, L501.5200, L501.3620 #### [facility] [address] [place], [address] PLT EST ADEQUATE Normal ADEQ [facility] Comment on above: Performed By: #### L 500.2500, L100.0100, L501.5200, L501.3620 #### [facility] [address] [place], [address] RED CELL MORPH NORM C+C Normal NORM C C [facility] Comment on above: Performed By: #### L 500.2500, L100.0100, L501.5200, L501.3620 #### [facility] [address] [place], [address] BAND 3 Normal 0-5 [facility] Comment on above: Performed By: #### L 500.2500, L100.0100, L501.5200, L501.3620 #### [facility] [address] [place], [address] Eosinophils/100 WBC (Bld) 2 % Normal 0-5 [facility] Comment on above: Performed By: #### L 500.2500, L100.0100, L501.5200, L501.3620 #### [facility] [address] [place], [address] Lymphocytes (Bld) [#/Vol] 35 10*3/uL Normal 19-41 [facility] Comment on above: Performed By: #### L 500.2500, L100.0100, L501.5200, L501.3620 #### [facility] [address] [place], [address] MONOCYTE 6 Normal 0-10 [facility] Comment on above: Performed By: #### L 500.2500, L100.0100, L501.5200, L501.3620 #### [facility] [address] [place], [address] SEGS 54 Normal 47-70 [facility] Comment on above: Performed By: #### L 500.2500, L100.0100, L501.5200, L501.3620 #### [facility] [address] [place], [address] TOTAL CELLS 100 Normal MANUAL DIFF [facility] Comment on above: Performed By: #### L 500.2500, L100.0100, L501.5200, L501.3620 #### [facility] [address] [place], [address] CPK Total, Creatine Kinaseon 03-10-2025 CPK TOTAL 127 U/L Normal 24-195 [facility] Comment on above: Performed By: #### L 500.2500, L100.0100, L501.5200, L501.3620 #### [facility] [address] [place], [address] CRPon 03-10-2025 C-REACTIVE PROT 5.98 mg/L High 0.0-3.0 [facility] Comment on above: Performed By: #### L 501.6710, L101.9900 #### [facility] [address] [place], [address] CRP [Mass/Vol]Ordered By: Stephen Zuniga on 03-10-2025 C-Reactive Protein Extended Range 5.98 mg/L High 0.0-3.0 [facility] Carbon dioxide, total [Moles /volume] in Central venous bloodOrdered By: Araseli Babb on 03-10-2025 CO2 [Moles/Vol] 24.6 mmol/L 21.0-32.0 [facility] Cells counted Molgen (Bld/Ti ss) [#]Ordered By: Araseli Babb on 03-10-2025 Differential Total Cells Counted 100 MANUAL DIFF [facility] Chloride assayOrdered By: Eamon Babb on 03-10-2025 Chloride [Moles/Vol] 103 mmol/L 98-108 [facility] Emergency Department Summary on 03-10-2025 Emergency Department Summary [facility] Medical Records Department [address] [place] [address] Emergency Department Summary 03/10/25 MR#: [id number] Acct: [id number] Name: MATTHEW HUANG Rep #: [id number] : 1990 35 From: Araseli Babb DO [...] or chills. She states she moved to [place] yesterday the family. She is never any like this before. Did not take anything for symptoms prior arrival. No other complaints or concerns at this time. [facility] Medical History Bipolar disorder Gestational diabetes delivery [...] multiple frequent ER visits and hospitalizations at [facility] however they have been for allergi (more content not included)... Normal [facility] Erythrocyte Sed Rateon 03-10 SED RATE 8 mm/hr Normal 0-30 [facility] Comment on above: Performed By: #### L 501.6710, L101.9900 #### [facility] Laboratory [facility] [place], [address] Erythrocyte distribution wid th (RBC) [Ratio]Ordered By: Araseli Babb on 03-10-2025 Erythrocyte distribution width (RBC) [Entitic vol] 42.8 fL 35.1-43.9 [facility] Erythrocyte distribution wid th ratioOrdered By: Araseli Babb on 03-10-2025 Erythrocyte distribution width (RBC) [Ratio] 13.3 % 11.6-14.6 [facility] Erythrocyte sedimentation ra teOrdered By: Delano Zuniga on 03-10-2025 ESR (Bld) [Velocity] 8 mm/h 0-30 [facility] Estimation of creatinine franklyn aranceOrdered By: Araseli Babb on 03-10-2025 Estimated Creatinine Clearance Calc 92.74 ml/min 50-250 [facility] GFR/1.73 sq M.predicted boyd g non-blacks MDRD (S/P/Bld) [Vol rate/Area]Ordered By: Araseli Babb on 03-10-2025 Estimated GFR (MDRD) Non-Af Amer 86 >60 [facility] Comment on above: mL/min/1.73m2 CKD-EP I Creatinine Equation (2020) Hematocrit Auto (Bld) [Volum e fraction]Ordered By: Araseli Babb on 03-10-2025 Hematocrit (Bld) [Volume fraction] 41.3 % 37-47 [facility] Hemoglobin measurementOrdere d By: Araseli Babb on 03-10-2025 Hemoglobin (Bld) [Mass/Vol] 14.0 g/dL 12.0-15.0 [facility] Lymphocytes Auto (Unsp spec) [#/Vol]Ordered By: Araseli Babb on 03-10-2025 Lymphocytes (Bld) [#/Vol] 3.92 10*3/uL 0.83-4.51 [facility] MCV (mean corpuscular volume ) determinationOrdered By: Araseli Babb on 03-10-2025 MCV (RBC) [Entitic vol] 87.5 fL 81-99 [facility] Magnesiumon 03-10-2025 Magnesium [Mass/Vol] 2.4 mg/dL High 1.5-2.2 [facility] Comment on above: Performed By: #### L 500.2500, L100.0100, L501.5200, L501.3620 #### [facility] [address] [place] [address], [address] Magnesium (Unsp spec) [Mass/ Vol]Ordered By: Araseli Babb on 03-10-2025 Magnesium [Mass/Vol] 2.4 mg/dL High 1.5-2.2 [facility] Mean corpuscular hemoglobin (MCH) determinationOrdered By: Araseli Babb on 03-10-2025 MCH (RBC) [Entitic mass] 29.7 pg 27.0-32.0 [facility] Mean corpuscular hemoglobin concentration (MCHC) determinationOrdered By: Araseli Babb on 03-10-2025 MCHC (RBC) [Mass/Vol] 33.9 g/dL 32-36 [facility] Mean platelet volume determi nationOrdered By: Araseli Babb on 03-10-2025 Platelet mean volume (Bld) [Entitic vol] 9.8 fL 6.2-12.0 [facility] Neutrophil percentageOrdered By: Araseli Babb on 03-10-2025 Neutrophils (%) (Auto) Not Reportable [facility] Platelet countOrdered By: Eamon Babb on 03-10-2025 Platelets (Bld) [#/Vol] 299 10*3/uL 150-450 [facility] Platelets LM Ql (Bld)Ordered By: Araseli Babb on 03-10-2025 Platelet Estimate ADEQUATE ADEQ [facility] Potassium (Unsp spec) [Mass/ Vol]Ordered By: Araseli Babb on 03-10-2025 Potassium [Moles/Vol] 3.5 mmol/L 3.3-5.1 [facility] RBC Auto (Bld) [#/Vol]Ordere d By: Araseli Babb on 03-10-2025 RBC (Bld) [#/Vol] 4.72 10*6/uL 4.2-5.4 [facility] RBC morphology finding Nom ( Bld)Ordered By: Araseli Babb on 03-10-2025 Red Blood Cell Morphology NORM C+C NORMAL NORM C&C [facility] Segmented neutrophils/100 WB C (Bld)Ordered By: Araseli Babb on 03-10-2025 Neutrophils/100 WBC (Bld) 54 % 47-70 [facility] Serum creatinine measurement (mass/volume)Ordered By: Araseli Babb on 03-10-2025 Creatinine [Mass/Vol] 0.90 mg/dL 0.70-1.20 [facility] Serum glucose measurement (m ass/volume)Ordered By: Araseli Babb on 03-10-2025 Glucose [Mass/Vol] 114 mg/dL High 70-99 [facility] Serum or plasma calcium donte urement (mass/volume)Ordered By: Araseli Babb on 03-10-2025 Calcium [Mass/Vol] 8.4 mg/dL 7.6-11.0 [facility] Serum or plasma creatine kin ase activityOrdered By: Araseli Babb on 03-10-2025 CK [Catalytic activity/Vol] 127 U/L 24-195 [facility] Serum or plasma urea nitroge n measurement (mass/volume)Ordered By: Araseli Babb on 03-10-2025 Urea nitrogen [Mass/Vol] 16 mg/dL 4-19 [facility] Sodium levelOrdered By: Zaire Babb on 03-10-2025 Sodium [Moles/Vol] 139 mmol/L 133-145 [facility] Venous Duplex US - Ammon Extre mon 03-10-2025 Venous Duplex US - Ammon Extrem [facility] Cardiovascular Services [address] [place] [address] Venous Duplex US - Ammon Extrem 03/10/25 0808 MR#: [id number] Acct: [id number] Name: MATTHEW HUANG Rep #: [id number] : 1990 35 From: Melvin Ruiz MD [...] patent and compressible segmentally. ___ Ordering Physician: Araseli Babb Performed By: Korina Jain RVT 03/10/252009 Date Melvin Ruiz MD CC: Dr. Araseli Babb, DO; No Primary Care Physician Date Dictated: 03/10/25807 Date Transcribed: 03/10/252009 Padder Cushion: Signed Normal [facility] White blood cell (WBC) count Ordered By: Araseli Babb on 03-10-2025 WBC (Bld) [#/Vol] 11.2 10*3/uL High 4.4-11.0 [facility] ED PROV NOTEon 03-09-2025 ED PROV NOTE Normal [facility] ED PROV NOTE Normal [facility] CNDSon 03-08-2025 CNDS HNO ID: [id number] Author: ANTONY SALTER MD Service: Hospital Medicine [...] of today's encounter. I have performed the [id number] and relevant services for a total of < 30 minutes. Yajaira Mcclain MD ----- DISCHARGE SUMMARY PATIENT NAME: Matthew Huang ADMISSION DATE: 03/07/2025 DISCHARGE DATE: 03/08/2025 [...] Attending Provider: Yajaira Mcclain MD Primary Service: , [facility] PATIENT CONDITION AT DISCHARGE: Stable DISCHARGE DISPOSITION: Home with Self Care Discharge Physical Exam: VITAL SIGNS: BP 139/83 Pulse 71 Temp 36.7 ?C (98.1 ?F) (Oral) Resp 16 Ht 162.6 cm (5' 4) Wt 81.7 kg (180 lb 1.9 oz) [...] Department Center 03/13/2025 10:00 AM Sissy Felton APRN.MICROBIOLOGY TECHNICIAN [facility] [place] POB 03/17/2025 10:00 AM Júnior Price MD [facility] J 03/17/2025 2:30 PM Jaja Moss APRN.PATIENT SERVICES REPRESENTATIVE [facility] ALLERGIES Allergen Reactions Clindamycin Hives [...] these medications (more content not included)... Normal [facility] ED NOTEon 03-08-2025 ED NOTE HNO ID: [id number] Author: KIM ESCOBAR CT Service: ? Author Type: Clinical Speech Coach Type: ED Notes Filed: 03/08/2025 21:40 Note Text: Pt declined updating vs Normal [facility] ED NOTE Normal [facility] ED NOTE Normal [facility] ED NOTE HNO ID: [id number] Author: SEUN WAITE, MIRNA Service: ? Author Type: Registered Nurse Type: [...] discharge. Ambulated at discharge without difficulty. Normal [facility] ED NOTE HNO ID: [id number] Author: JSOSELIN OSORIO RN Service: ? Author Type: Registered Nurse Type: ED Notes Filed: 03/08/2025 17:37 Note Text: Bed: 23-ED Expected date: Expected time: Means of arrival: [facility] (42) Comments: 35F allergic reaction Benadryl 50 mcg given 116/72, 102, 96% Normal [facility] ED PROV NOTEon 03-08-2025 ED PROV NOTE HNO ID: [id number] Author: ADELFO VAZQUEZ MD Service: ? 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 Normal [facility] ED Triage Noteon 03-08-2025 ED Triage Note Normal [facility] CBC panel Auto (Bld)on 03-07 Erythrocyte distribution width (RBC) [Ratio] 13.6 % Normal 11.5-15.0 [facility] Comment on above: Order Comment: Speci men Type: BLOOD SPECIMEN Ordering Facility: [facility] Address: [address] [place] [address] Performed By: #### 4 091-5 #### [facility] CLIA [id number] [address] [place] [address] [place] Hematocrit (Bld) [Volume fraction] 44.3 % Normal 36.0-46.0 [facility] Comment on above: Order Comment: Speci men Type: BLOOD SPECIMEN Ordering Facility: [facility] Address: [address] [place] [address] Performed By: #### 4 091-5 #### [facility] CLIA [id number] [address] [place] [address] [place] Hemoglobin (Bld) [Mass/Vol] 14.8 g/dL Normal 11.5-15.5 [facility] Comment on above: Order Comment: Speci men Type: BLOOD SPECIMEN Ordering Facility: [facility] Address: [address] [place] [address] Performed By: #### 4 091-5 #### [facility] CLIA [id number] [address] [place] [address] [place] MCH (RBC) [Entitic mass] 29.2 pg Normal 26.0-34.0 [facility] Comment on above: Order Comment: Speci men Type: BLOOD SPECIMEN Ordering Facility: [facility] Address: [address] [place] [address] Performed By: #### 4 091-5 #### [facility] CLIA [id number] [address] [place] [address] [place] MCHC (RBC) [Mass/Vol] 33.4 g/dL Normal 30.5-36.0 [facility] Comment on above: Order Comment: Speci men Type: BLOOD SPECIMEN Ordering Facility: [facility] Address: [address] [place] [address] Performed By: #### 4 091-5 #### [facility] CLIA [id number] [address] [place] [address] [place] MCV (RBC) [Entitic vol] 87.4 fL Normal 80.0-100.0 [facility] Comment on above: Order Comment: Speci men Type: BLOOD SPECIMEN Ordering Facility: [facility] Address: [address] [place] [address] Performed By: #### 4 091-5 #### [facility] CLIA [id number] [address] [place] [address] [place] Nucleated RBC (Bld) [#/Vol] 10*3/uL Normal <0.01 [facility] Comment on above: Order Comment: Speci men Type: BLOOD SPECIMEN Ordering Facility: [facility] Address: [address] [place] [address] Performed By: #### 4 091-5 #### [facility] CLIA [id number] [address] [place] [address] [place] Platelet mean volume (Bld) [Entitic vol] 9.9 fL Normal 9.0-12.7 [facility] Comment on above: Order Comment: Speci men Type: BLOOD SPECIMEN Ordering Facility: [facility] Address: [address] [place] [address] Performed By: #### 4 091-5 #### [facility] CLIA [id number] [address] [place] [address] [place] Platelets (Bld) [#/Vol] 346 10*3/uL Normal 150-400 [facility] Comment on above: Order Comment: Speci men Type: BLOOD SPECIMEN Ordering Facility: [facility] Address: [address] [place] [address] Performed By: #### 4 091-5 #### [facility] CLIA [id number] [address] [place] [address] [place] RBC (Bld) [#/Vol] 5.07 10*6/uL Normal 3.90-5.20 [facility] Comment on above: Order Comment: Speci men Type: BLOOD SPECIMEN Ordering Facility: [facility] Address: [address] [place] [address] Performed By: #### 4 091-5 #### [facility] CLIA [id number] [address] [place] [address] [place] WBC (Bld) [#/Vol] 14.01 10*3/uL High 3.70-11.00 [facility] Comment on above: Order Comment: Mookie roberts Type: BLOOD SPECIMEN Ordering Facility: [facility] Address: [address] [place] [address] Performed By: #### 4 091-5 #### [facility] CLIA [id number] [address] [place] [id number] [facility] [place] CNPNon 03-07-2025 CNPN Telephone (FVPRAD) ----- MATTHEW HUANG ([id number]) 1990 F Date Time Provider Department 03/07/25 SHELLY ROTH FVPRAD During your visit today, we recorded the following information about you: Shelly Roth 03/07/2025 7:30 AM Signed Accepted transfer from [facility] to [facility]: Briefly, 35 years old female with prior Hx of anaphylaxis with recurrent angioedema (recent admission at [facility]) who presented to [facility] ED for evaluation of an allergic reaction concerning for anaphylaxis after taking Keflex (Hx of allergy) at home by mistake per patient. She was seen earlier at [facility] and received EpiPen and Pepcid. However, she left AMA after she was not given IV Benadryl. She then presented to [facility] ED for evaluation of similar symptoms including rash, lip swelling and oropharyngeal discomfort. Patient was assessed by ED provider and had no concerns for airway compromise or hemodynamic instability. She was given EpiPen, antihistamines and steroids with some improvement. Given recent admission and concerns for allergic reaction, ED provider requested admission to [facility] for observation. Case was discussed with CDU and they deferred the transfer to hospital medicine service. Patient has been accepted to [facility] for observation and further management. Per ED provider, there is also a concern for secondary gain and falsifying symptoms as patient is making frequent requests for IV Benadryl. Please see hands of section for further signout. Shelly Roth MD [facility] Medicine Allergies As of Date: 03/07/2025 Noted [...] Date Reviewed: 03/07/2025 Reviewed by: Lisa Preciado, RN - Fully Assessed Prescriptions as of 03/07/2025 [...] 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HCC) [F31.61] 10 (more content not included)... Normal [facility] Comprehensive metabolic 2000 panelon 03-07-2025 Albumin [Mass/Vol] 4.6 g/dL Normal 3.9-4.9 [facility] Comment on above: Order Comment: Speci men Type: SWAB Ordering Facility: [facility] Address: [address] [place] [address] Performed By: #### S APCR #### [facility] CLIA [id number] [address] [place] [address] [place] ALP [Catalytic activity/Vol] 146 U/L High 34-123 [facility] Comment on above: Order Comment: Speci men Type: SWAB Ordering Facility: [facility] Address: [address] [place] [address] Performed By: #### S APCR #### [facility] CLIA [id number] [address] [place] [address] [place] ALT [Catalytic activity/Vol] 43 U/L High 7-38 [facility] Comment on above: Order Comment: Speci men Type: SWAB Ordering Facility: [facility] Address: [address] [place] [address] Performed By: #### S APCR #### [facility] CLIA [id number] [address] [place] [address] [place] Anion gap [Moles/Vol] 12 mmol/L Normal 8-15 [facility] Comment on above: Order Comment: Speci men Type: SWAB Ordering Facility: [facility] Address: [address] [place] [address] Performed By: #### S APCR #### [facility] CLIA [id number] [address] [place] [address] [place] AST [Catalytic activity/Vol] 18 U/L Normal 13-35 [facility] Comment on above: Order Comment: Speci men Type: SWAB Ordering Facility: [facility] Address: [address] [place] [address] Performed By: #### S APCR #### [facility] CLIA [id number] [address] [place] [address] [place] Bilirubin [Mass/Vol] 0.3 mg/dL Normal 0.2-1.3 [facility] Comment on above: Order Comment: Speci men Type: SWAB Ordering Facility: [facility] Address: [address] [place] [address] Performed By: #### S APCR #### [facility] CLIA [id number] [address] [place] [address] [place] Calcium [Mass/Vol] 9.2 mg/dL Normal 8.5-10.2 [facility] Comment on above: Order Comment: Speci men Type: SWAB Ordering Facility: [facility] Address: [address] [place] [address] Performed By: #### S APCR #### [facility] CLIA [id number] [address] [place] [address] [place] Chloride [Moles/Vol] 104 mmol/L Normal 98-107 [facility] Comment on above: Order Comment: Speci men Type: SWAB Ordering Facility: [facility] Address: [address] [place] [address] Performed By: #### S APCR #### [facility] CLIA [id number] [address] [place] [address] [place] CO2 [Moles/Vol] 22 mmol/L Normal 22-30 [facility] Comment on above: Order Comment: Speci men Type: SWAB Ordering Facility: [facility] Address: [address] [place] [address] Performed By: #### S APCR #### [facility] CLIA [id number] [address] [place], [place] [id number] [place] Creatinine [Mass/Vol] 0.57 mg/dL Low 0.58-0.96 [facility] Comment on above: Order Comment: Speci men Type: SWAB Ordering Facility: [facility] Address: [address] [place] [address] Performed By: #### S APCR #### [facility] CLIA [id number] [address] [place] [address] [place] Creatinine and Glomerular filtration rate.predicted panel (S/P/Bld) 122 mL/min/1.73m??? Normal >=60 [facility] Comment on above: Order Comment: Mookie roberts Type: SWAB Ordering Facility: [facility] Address: [address] [place] [address] Result Comment: Anne-Marie mated Glomerular Filtration Rate [...] GFR. Performed By: #### S APCR #### [facility] CLIA [id number] [address] [place] [address] [place] Glucose [Mass/Vol] 94 mg/dL Normal 74-99 [facility] Comment on above: Order Comment: Mookie roberts Type: SWAB Ordering Facility: [facility] Address: [address] [place] [address] Result Comment: The [place] [employer] (ADA) provides guidance for cutoff [...] Standards of Medical Care in Diabetes 2016, [place] [employer]. Diabetes Care. 2016.39(Suppl 1). Performed By: #### S APCR #### [facility] CLIA [id number] [address] [place] [address] [place] Potassium [Moles/Vol] 4.1 mmol/L Normal 3.7-5.1 [facility] Comment on above: Order Comment: Speci men Type: SWAB Ordering Facility: [facility] Address: [address] [place] [address] Performed By: #### S APCR #### [facility] CLIA [id number] [address] [place] [address] [place] Protein [Mass/Vol] 8.0 g/dL Normal 6.3-8.0 [facility] Comment on above: Order Comment: Speci men Type: SWAB Ordering Facility: [facility] Address: [address] [place] [address] Performed By: #### S APCR #### [facility] CLIA [id number] [address] [place] [address] [place] Sodium [Moles/Vol] 138 mmol/L Normal 136-144 [facility] Comment on above: Order Comment: Speci men Type: SWAB Ordering Facility: [facility] Address: [address] [place] [address] Performed By: #### S APCR #### [facility] CLIA [id number] [address] [place] [address] [place] Urea nitrogen [Mass/Vol] 13 mg/dL Normal 7-21 [facility] Comment on above: Order Comment: Speci men Type: SWAB Ordering Facility: [facility] Address: [address] [place] [address] Performed By: #### S APCR #### [facility] CLIA [id number] [address] [place] [address] [place] ECG COMPLETEon 03-07-2025 ECG COMPLETE Ventricular Rate : 7 5 BPM Atrial Rate : 75 BPM P-R Interval : 143 ms QRS Duration : 78 ms Q-T Interval : 379 ms QTC Calculation(Bazett) : 424 ms Calculated P [place] : 3 degrees Calculated R [place] : 29 degrees Calculated T [place] : 3 degrees Sinus rhythm Normal ECG Confirmed by LARISSA HUNG MD ([id number]) on 03/08/2025 12:59:32 PM NAME : REINAMATTHEW PID : [id number] : 1990 Gender : Female Race : ORD : [id number] Procedure Date : Mar 07 2025 13:24:33 Edit Date : Mar 08 2025 12:59:32 Diagnosis: Sinus rhythm Normal ECG Confirmed by LARISSA HUNG MD ([id number]) on 03/08/2025 12:59:32 PM Test Reason : Chest Pain Location : 400 : FVEKG 0508 Overread By : LARISSA HUNG MD Edited By : LARISSA HUNG MD Referred By : EM THOMPSON Acquired by : MICHELLE LOZADA Normal [facility] ED NOTEon 03-07-2025 ED NOTE Normal [facility] ED NOTE Normal [facility] ED NOTE HNO ID: [id number] Author: RICHARD MATAMOROS, MIRNA Service: Nursing Author Type: Registered Nurse Type: ED Notes Filed: 03/07/2025 08:12 Note Text: Pt report received from MIRNA Dennison. PT is in stable condition. Pt assessed. No s/s distress. Normal [facility] ED NOTE HNO ID: [id number] Author: TINO BARBOSA RN Service: ? Author Type: Registered Nurse Type: ED Notes Filed: 03/07/2025 03:38 Note Text: LIP at bedside Normal [facility] ED NOTE Normal [facility] ED PROV NOTEon 03-07-2025 ED PROV NOTE Normal [facility] ED PROV NOTE Normal [facility] HISTORY PHYSICALon HISTORY PHYSICAL HNO ID: [id number] Author: YAJAIRA MCCLAIN MD Service: Hospital Medicine [...] encounter. Yajaira Mcclain MD ----- [facility] MEDICINE HISTORY AND PHYSICAL EXAM SERVICE DATE: 03/07/2025 SERVICE TIME: 2:45 PM Primary Care Physician: No primary care provider on file. NIGHT AND WEEKEND COVERAGE: [facility] COVERAGE:TEAM 4-7: Days [phone] please secure chat or page Antony Salter MD for patient issues. Nights [phone] please page [phone]. Subjective Matthew Huang is a 35 year old female with past medical history significant for endometriosis, migraine headaches, bipolar disorder and anxiety who presented initially to [facility] emergency department for concerns of allergic reaction. Patient has a known allergy to Keflex that causes diffuse rash and lip swelling. She has been on it previously for breast infection. Patient states that yesterday, she accidentally took Keflex instead of Clonazepam (as both pills have the same color). She then started to feel uncomfortable and has some itching thus she went to the emergency department for evaluation Patient was recently admitted to [facility] on 03/04/2025 to 03/06/2025 for concerns of [...] IV Benadryl. This morning patient went to [facility] ED for the same concern. As per [...] IV Benadryl. Patient was then transferred to [facility] for further evaluation. Upon transfer, patient was [...] COMPLETE INP (more content not included)... Normal [facility] CASE MGT INIT ASSESon 2024 CASE MGT INIT ASSES Normal [facility] CNDSon 03-06-2025 CNDS Normal [facility] ED NOTEon 03-06-2025 ED NOTE Normal [facility] ED NOTE HNO ID: [id number] Author: JOSIE PERAZA, RN Service: ? Author Type: Registered Nurse Type: ED Notes Filed: 03/06/2025 21:58 Note Text: Pt disputed the recommendation to receive PO benadryl. Pt requesting IV benadryl. When educated on reasons for PO benadryl as opposed to IV, pt became angry and requested to leave AMA. Pt stated I'm going to leave and go to a hospital that will actually treat me and give me what I want. Pt signed AMA form prior to discharge. Risks of leaving AMA provided to patient. Patient understands risks. IV removed prior to departure. Pt left with steady gait. Normal [facility] ED NOTE HNO ID: [id number] Author: JOSSELIN OSORIO, MIRNA Service: ? Author Type: Registered Nurse Type: ED Notes Filed: 03/06/2025 19:51 Note Text: Bed: 15-ED Expected date: Expected time: Means of arrival: [facility] (33) Comments: 35F allergic reaction Seen at main 2 days ago for same Used own epi pen +hives to chest Benadryl 50 mcg given by ems 124/82, 104, 24, 100%, BGL 151 Normal [facility] ED PROV NOTEon 03-06-2025 ED PROV NOTE HNO ID: [id number] Author: ADELFO VAZQUEZ MD Service: ? Author Type: Physician Type: ED Provider Notes Filed: 03/06/2025 22:22 Note Text: ED Provider Note Patient Name: Matthew Huang : 1990 SERVICE DATE: 03/06/25 History [...] Per chart review, she was discharge from [facility] today for possible allergic reaction. States she went home and took what she thought was her home Klonopin, but was instead the antibiotic that caused her to have an allergic reaction. When I ask her what antibiotic she took, she states the blue one. States that she took her EpiPen at home. For EMS, she was given 50 mg of IV Benadryl. EMS reports that she had urticarial rash on her chest that reportedly improved. On [...] she needs Benadryl. 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 HENT: Head: Atraumatic. Mouth/Throat: Mouth: Mucous membranes are moist. Comments: No obvious ezio (more content not included)... Normal [facility] EKGon 03-06-2025 Electrocardiogram Ventricular Rate : 1 00 BPM Atrial Rate : 100 BPM P-R Interval : 140 ms QRS Duration : 72 ms Q-T Interval : 320 ms QTC Calculation(Bazett) : 413 ms Calculated P [place] : 23 degrees Calculated R [place] : 88 degrees Calculated T [place] : -1 degrees Sinus tachycardia Low voltage, precordial leads Borderline T abnormalities, anterior leads No Stemi Confirmed by ADELFO VAZQUEZ MD () on 03/06/2025 8:48:33 PM NAME : MATTHEW HUANG PID : [id number] : 1990 Gender : Female Race : ORD : Procedure Date : Mar 06 2025 20:46:04 Edit Date : Mar 06 2025 20:48:34 Diagnosis: Sinus tachycardia Low voltage, precordial leads Borderline T abnormalities, anterior leads No Stemi Confirmed by ADELFO VAZQUEZ MD () on 03/06/2025 8:48:33 PM Test Reason : Location : 402 : FVED fved15 Overread By : ADELFO VAZQUEZ MD Edited By : ADELFO VAZQUEZ MD Referred By : , Acquired by : [id number], [facility] [place] Electrocardiogram Ventricular Rate : 1 01 BPM Atrial Rate : 101 BPM P-R Interval : 135 ms QRS Duration : 71 ms Q-T Interval : 350 ms QTC Calculation(Bazett) : 454 ms Calculated P [place] : 27 degrees Calculated R [place] : 90 degrees Calculated T [place] : -9 degrees Sinus tachycardia Borderline right axis deviation Borderline T abnormalities, diffuse leads No Stemi Confirmed by ADELFO VAZQUEZ MD () on 03/06/2025 8:27:08 PM NAME : MATTHEW HUANG PID : [id number] : 1990 Gender : Female Race : ORD : Procedure Date : Mar 06 2025 20:05:57 Edit Date : Mar 06 2025 20:27:10 Diagnosis: Sinus tachycardia Borderline right axis deviation Borderline T abnormalities, diffuse leads No Stemi Confirmed by ADELFO VAZQUEZ MD () on 03/06/2025 8:27:08 PM Test Reason : Location : 402 : FVED fved15 Overread By : ADELFO VAZQUEZ MD Edited By : ADELFO VAZQUEZ MD Referred By : , Acquired by : [id number], [facility] [place] NUTRITIONon 03-06-2025 NUTRITION Normal [facility] US ARM VEIN DVT [facility] LABo n 03-06-2025 US ARM VEIN DVT [facility] LAB Normal [facility] B-HCG SerPl-aCncon HCG.beta subunit Qn m[IU]/mL Normal <5.0 [facility] Comment on above: Order Comment: Speci men Type: BLOOD SPECIMENOrdering Facility: [facility] Address: [address] [place] [address] Result Comment: Jeffery haile Performed By: #### 2 1198-7 ####[facility] LABCLIA [id number] [place] [address] [place] CBC W Auto Differential pane l (Bld)on 03-05-2025 Basophils (Bld) [#/Vol] 0.04 10*3/uL Normal <0.11 [facility] Comment on above: Order Comment: Speci men Type: BLOOD SPECIMENOrdering Facility: [facility] Address: [address] [place] [address] Performed By: #### 5 7021-8, 453-7 ####[facility] LABCLIA [id number] [place] [address] [place] Basophils/100 WBC (Bld) 0.3 % Normal [facility] Comment on above: Order Comment: Speci men Type: BLOOD SPECIMENOrdering Facility: [facility] Address: [address] [place] [address] Performed By: #### 5 7021-8, 4536-7 ####[facility] LABCLIA [id number] [place] [address] [place] Differential cell count method Nom (Bld) Auto Normal [facility] Comment on above: Order Comment: Speci men Type: BLOOD SPECIMENOrdering Facility: [facility] Address: [address] [place] [address] Performed By: #### 5 7021-8, 4536-7 ####[facility] LABCLIA [id number] [place] [address] [place] Eosinophils (Bld) [#/Vol] 10*3/uL Normal <0.46 [facility] Comment on above: Order Comment: Speci men Type: BLOOD SPECIMENOrdering Facility: [facility] Address: [address] [place] [address] Performed By: #### 5 7021-8, 4536-7 ####[facility] LABCLIA [id number] [place] [address] [place] Eosinophils/100 WBC (Bld) 0.0 % Normal [facility] Comment on above: Order Comment: Speci men Type: BLOOD SPECIMENOrdering Facility: [facility] Address: [address] [place] [address] Performed By: #### 5 7021-8, 7 ####[facility] LABCLIA [id number] [place] [address] [place] Erythrocyte distribution width (RBC) [Ratio] 13.5 % Normal 11.5-15.0 [facility] Comment on above: Order Comment: Speci men Type: BLOOD SPECIMENOrdering Facility: [facility] Address: [address] [place] [address] Performed By: #### 5 7021-8, 7 ####[facility] LABCLIA [id number] [place] [address] [place] Hematocrit (Bld) [Volume fraction] 41.3 % Normal 36.0-46.0 [facility] Comment on above: Order Comment: Speci men Type: BLOOD SPECIMENOrdering Facility: [facility] Address: [address] [place] [address] Performed By: #### 5 7021-8, 7 ####[facility] LABCLIA [id number] [place] [id number] [place] Hemoglobin (Bld) [Mass/Vol] 13.4 g/dL Normal 11.5-15.5 [facility] Comment on above: Order Comment: Speci men Type: BLOOD SPECIMENOrdering Facility: [facility] Address: [address] [place] [address] Performed By: #### 5 7021-8, 4536-7 ####[facility] LABCLIA [id number] [place] [address] [place] Immature granulocytes (Bld) [#/Vol] 0.42 10*3/uL High <0.10 [facility] Comment on above: Order Comment: Speci men Type: BLOOD SPECIMENOrdering Facility: [facility] Address: [address] [place] [address] Performed By: #### 5 7021-8, 7 ####[facility] LABCLIA [id number] [place] [address] [place] Immature granulocytes/100 WBC (Bld) 2.8 % Normal [facility] Comment on above: Order Comment: Speci men Type: BLOOD SPECIMENOrdering Facility: [facility] Address: [address] [place] [address] Performed By: #### 5 7021-8, 7 ####[facility] LABCLIA [id number] [place] [address] [place] Lymphocytes (Bld) [#/Vol] 1.27 10*3/uL Normal 1.00-4.00 [facility] Comment on above: Order Comment: Speci men Type: BLOOD SPECIMENOrdering Facility: [facility] Address: [address] [place] [address] Performed By: #### 5 7021-8, 7 ####[facility] LABCLIA [id number] [place] [address] [place] Lymphocytes/100 WBC (Bld) 8.5 % Normal [facility] Comment on above: Order Comment: Speci men Type: BLOOD SPECIMENOrdering Facility: [facility] Address: [address] [place] [address] Performed By: #### 5 7021-8, 4536-7 ####[facility] LABCLIA [id number] [place] [address] [place] MCH (RBC) [Entitic mass] 29.2 pg Normal 26.0-34.0 [facility] Comment on above: Order Comment: Speci men Type: BLOOD SPECIMENOrdering Facility: [facility] Address: [address] [place] [address] Performed By: #### 5 7021-8, 4536-7 ####[facility] LABCLIA [id number] [place] [address] [place] MCHC (RBC) [Mass/Vol] 32.4 g/dL Normal 30.5-36.0 [facility] Comment on above: Order Comment: Speci men Type: BLOOD SPECIMENOrdering Facility: [facility] Address: [address] [place] [address] Performed By: #### 5 7021-8, 4536-7 ####[facility] LABCLIA [id number] [place] [address] [place] MCV (RBC) [Entitic vol] 90.0 fL Normal 80.0-100.0 [facility] Comment on above: Order Comment: Speci men Type: BLOOD SPECIMENOrdering Facility: [facility] Address: [address] [place] [address] Performed By: #### 5 7021-8, 7 ####[facility] LABIA [id number] [place] [address] [place] Monocytes (Bld) [#/Vol] 0.24 10*3/uL Normal <0.87 [facility] Comment on above: Order Comment: Speci men Type: BLOOD SPECIMENOrdering Facility: [facility] Address: [address] [place] [address] Performed By: #### 5 7021-8, 7 ####[facility] LABCLIA [id number] [place] [id number] [place] Monocytes/100 WBC (Bld) 1.6 % Normal [facility] Comment on above: Order Comment: Speci men Type: BLOOD SPECIMENOrdering Facility: [facility] Address: [address] [place] [address] Performed By: #### 5 7021-8, 4537-7 ####[facility] LABCLIA [id number] [place] [address] [place] Neutrophils (Bld) [#/Vol] 13.04 10*3/uL High 1.45-7.50 [facility] Comment on above: Order Comment: Speci men Type: BLOOD SPECIMENOrdering Facility: [facility] Address: [address] [place] [address] Performed By: #### 5 7021-8, 4536-7 ####[facility] LABCLIA [id number] [place] [address] [place] Neutrophils/100 WBC (Bld) 86.8 % Normal [facility] Comment on above: Order Comment: Speci men Type: BLOOD SPECIMENOrdering Facility: [facility] Address: [address] [place] [address] Performed By: #### 5 7021-8, 4536-7 ####[facility] LABCLIA [id number] [place] [address] [place] Nucleated RBC (Bld) [#/Vol] 10*3/uL Normal <0.01 [facility] Comment on above: Order Comment: Speci men Type: BLOOD SPECIMENOrdering Facility: [facility] Address: [address] [place] [address] Performed By: #### 5 7021-8, 7-7 ####[facility] LABCLIA [id number] [place] [address] [place] Nucleated RBC/100 WBC (Bld) [Ratio] 0.0 /100 WBC Normal [facility] Comment on above: Order Comment: Speci men Type: BLOOD SPECIMENOrdering Facility: [facility] Address: [address] [place] [address] Performed By: #### 5 7021-8, 4537-7 ####[facility] LABIA [id number] [place] [id number] [place] Platelet mean volume (Bld) [Entitic vol] 9.9 fL Normal 9.0-12.7 [facility] Comment on above: Order Comment: Speci men Type: BLOOD SPECIMENOrdering Facility: [facility] Address: [address] [place] [address] Performed By: #### 5 7021-8, 4537-7 ####[facility] [id number] [place] [address] [place] Platelets (Bld) [#/Vol] 302 10*3/uL Normal 150-400 [facility] Comment on above: Order Comment: Speci men Type: BLOOD SPECIMENOrdering Facility: [facility] Address: [address] [place] [address] Performed By: #### 5 7021-8, 4537-7 ####[facility] [id number] [place] [id number] [place] RBC (Bld) [#/Vol] 4.59 10*6/uL Normal 3.90-5.20 [facility] Comment on above: Order Comment: Speci men Type: BLOOD SPECIMENOrdering Facility: [facility] Address: [address] [place] [address] Performed By: #### 5 7021-8, 7-7 ####[facility] [id number] [place] [id number] [place] WBC (Bld) [#/Vol] 15.01 10*3/uL High 3.70-11.00 [facility] Comment on above: Order Comment: Speci men Type: BLOOD SPECIMENOrdering Facility: [facility] Address: [address] [place] [address] Performed By: #### 5 7021-8, 4537-7 ####[facility] LABIA [id number] [place] [address] [place] CONSULTon 03-05-2025 CONSULT Normal [facility] ESR Westergren method (Bld) [Velocity]on 03-05-2025 ESR (Bld) [Velocity] 8 mm/h Normal 0-20 [facility] Comment on above: Order Comment: Speci men Type: BLOOD SPECIMENOrdering Facility: [facility] Address: [address] [place] [address] Performed By: #### 5 7021-8, 4537-7 ####[facility] [id number] [place] [address] [place] HCG Preg Ur Qlon 03-05-2025 HCG ( test) Ql (U) Negative Normal Negative [facility] Comment on above: Order Comment: Speci men Type: URINE SPECIMENOrdering Facility: [facility] Address: [address] [place] [address] Result Comment: This test is intended to aid in the early detection of . Very dilute urine samples, as indicated by a low specific gravity, may not contain customer service representative levels of hCG. This test detects [...] for . Performed By: #### 2 106-3 ####[facility] [id number] [place] [address] [place] Heteroph Ab Ser Ql LAon 02-21 Heterophile Ab LA Ql (S) Negative Normal Negative [facility] Comment on above: Order Comment: Speci men Type: BLOOD SPECIMENOrdering Facility: [facility] Address: [address] [place] [address] Result Comment: Infe ctious Mononucleosis rapid test [...] is required. Performed By: #### 5 213-4 ####[facility] LABIA [id number] [place] [address] [place] NURSING PROGon 03-05-2025 NURSING PROG Normal [facility] Resp path 12b Pnl Spec LAURA+p robeon 03-05-2025 Respiratory pathogens DNA and RNA 12b panel LAURA+probe (Unsp spec) Normal [facility] Comment on above: Performed By: #### 6 0566-7 ####[facility] LABIA [id number] [place] [address] [place] C4 SerPl-mCncon 03-04-2025 Complement C4 [Mass/Vol] 17 mg/dL Normal 13-46 [facility] Comment on above: Order Comment: Speci men Type: BLOOD SPECIMENOrdering Facility: [facility] Address: [address] [place] [address] Performed By: #### 2 4362-6, 4498-2, 2157-6, 1988-5, 90892-3 ####[facility] LABIA [id number] [place] [id number] [place] CBC Pnl Bld Autoon 5 Erythrocyte distribution width (RBC) [Ratio] 13.3 % Normal 11.5-15.0 [facility] Comment on above: Order Comment: Speci men Type: BLOOD SPECIMENOrdering Facility: [facility] Address: [address] [place] [address] Performed By: #### 5 8410-2, 27239-9 ####[facility] LABCLIA [id number] [place] [address] [place] Hematocrit (Bld) [Volume fraction] 40.0 % Normal 36.0-46.0 [facility] Comment on above: Order Comment: Speci men Type: BLOOD SPECIMENOrdering Facility: [facility] Address: [address] [place] [address] Performed By: #### 5 8410-2, 41184-3 ####[facility] LABCLIA [id number] [place] [address] [place] Hemoglobin (Bld) [Mass/Vol] 13.6 g/dL Normal 11.5-15.5 [facility] Comment on above: Order Comment: Speci men Type: BLOOD SPECIMENOrdering Facility: [facility] Address: [address] [place] [address] Performed By: #### 5 8410-2, 26913-3 ####[facility] LABIA [id number] [place] [address] [place] MCH (RBC) [Entitic mass] 29.4 pg Normal 26.0-34.0 [facility] Comment on above: Order Comment: Speci men Type: BLOOD SPECIMENOrdering Facility: [facility] Address: [address] [place] [address] Performed By: #### 5 8410-2, 51636-5 ####[facility] LABCLIA [id number] [place] [id number] [place] MCHC (RBC) [Mass/Vol] 34.0 g/dL Normal 30.5-36.0 [facility] Comment on above: Order Comment: Speci men Type: BLOOD SPECIMENOrdering Facility: [facility] Address: [address] [place] [address] Performed By: #### 5 8410-2, 18641-1 ####[facility] LABCLIA [id number] [place] [address] [place] MCV (RBC) [Entitic vol] 86.6 fL Normal 80.0-100.0 [facility] Comment on above: Order Comment: Speci men Type: BLOOD SPECIMENOrdering Facility: [facility] Address: [address] [place] [address] Performed By: #### 5 8410-2, 29974-5 ####[facility] LABIA [id number] [place] [address] [place] Nucleated RBC (Bld) [#/Vol] 10*3/uL Normal <0.01 [facility] Comment on above: Order Comment: Speci men Type: BLOOD SPECIMENOrdering Facility: [facility] Address: [address] [place] [address] Performed By: #### 5 8410-2, 20377-3 ####[facility] [id number] [place] [address] [place] Platelet mean volume (Bld) [Entitic vol] 9.9 fL Normal 9.0-12.7 [facility] Comment on above: Order Comment: Speci men Type: BLOOD SPECIMENOrdering Facility: [facility] Address: [address] [place] [address] Performed By: #### 5 8410-2, 55855-4 ####[facility] LABIA [id number] [place] [address] [place] Platelets (Bld) [#/Vol] 310 10*3/uL Normal 150-400 [facility] Comment on above: Order Comment: Speci men Type: BLOOD SPECIMENOrdering Facility: [facility] Address: [address] [place] [address] Performed By: #### 5 8410-2, 22270-5 ####[facility] LABIA [id number] [address] [id number] [address] [place] RBC (Bld) [#/Vol] 4.62 10*6/uL Normal 3.90-5.20 [facility] Comment on above: Order Comment: Speci men Type: BLOOD SPECIMENOrdering Facility: [facility] Address: [address] [place] [address] Performed By: #### 5 8410-2, 98258-4 ####[facility] LABCLIA [id number] [place] [address] [place] WBC (Bld) [#/Vol] 16.93 10*3/uL High 3.70-11.00 [facility] Comment on above: Order Comment: Speci men Type: BLOOD SPECIMENOrdering Facility: [facility] Address: [address] [place] [address] Performed By: #### 5 8410-2, 67837-5 ####[facility] LABIA [id number] [place] [address] [place] CBC W Auto Differential pane l (Bld)on 03-04-2025 Basophils (Bld) [#/Vol] 0.06 10*3/uL Normal <0.11 [facility] Comment on above: Order Comment: Speci men Type: BLOOD SPECIMENOrdering Facility: [facility] Address: [address] [place] [address] Performed By: #### 5 8410-2, 46070-3 ####[facility] LABIA [id number] [place] [address] [place] Basophils/100 WBC (Bld) 0.3 % Normal [facility] Comment on above: Order Comment: Speci men Type: BLOOD SPECIMENOrdering Facility: [facility] Address: [address] [place] [address] Performed By: #### 5 8410-2, 01880-0 ####[facility] LABIA [id number] [place] [address] [place] Differential cell count method Nom (Bld) Auto Normal [facility] Comment on above: Order Comment: Speci men Type: BLOOD SPECIMENOrdering Facility: [facility] Address: [address] [place] [address] Performed By: #### 5 8410-2, 03510-0 ####[facility] LABCLIA [id number] [place] [address] [place] Eosinophils (Bld) [#/Vol] 0.12 10*3/uL Normal <0.46 [facility] Comment on above: Order Comment: Speci men Type: BLOOD SPECIMENOrdering Facility: [facility] Address: [address] [place] [address] Performed By: #### 5 8410-2, 99063-7 ####[facility] LABCLIA [id number] [place] [address] [place] Eosinophils/100 WBC (Bld) 0.7 % Normal [facility] Comment on above: Order Comment: Speci men Type: BLOOD SPECIMENOrdering Facility: [facility] Address: [address] [place] [address] Performed By: #### 5 8410-2, 94940-1 ####[facility] LABCLIA [id number] [place] [address] [place] Immature granulocytes (Bld) [#/Vol] 0.45 10*3/uL High <0.10 [facility] Comment on above: Order Comment: Speci men Type: BLOOD SPECIMENOrdering Facility: [facility] Address: [address] [place] [address] Performed By: #### 5 8410-2, 85304-5 ####[facility] LABCLIA [id number] [place] [address] [place] Immature granulocytes/100 WBC (Bld) 2.6 % Normal [facility] Comment on above: Order Comment: Speci men Type: BLOOD SPECIMENOrdering Facility: [facility] Address: [address] [place] [address] Performed By: #### 5 8410-2, 63364-9 ####[facility] LABCLIA [id number] [place] [address] [place] Lymphocytes (Bld) [#/Vol] 3.44 10*3/uL Normal 1.00-4.00 [facility] Comment on above: Order Comment: Speci men Type: BLOOD SPECIMENOrdering Facility: [facility] Address: [address] [place] [address] Performed By: #### 5 8410-2, 38113-7 ####[facility] LABCLIA [id number] [place] [address] [place] Lymphocytes/100 WBC (Bld) 19.9 % Normal [facility] [facility] Comment on above: Order Comment: Speci men Type: BLOOD SPECIMENOrdering Facility: [facility] Address: [address] [place] [address] Performed By: #### 5 8410-2, 00173-0 ####[facility] LABCLIA [id number] [place] [address] [place] Monocytes (Bld) [#/Vol] 1.16 10*3/uL High <0.87 [facility] Comment on above: Order Comment: Speci men Type: BLOOD SPECIMENOrdering Facility: [facility] Address: [address] [place] [address] Performed By: #### 5 8410-2, 67653-6 ####[facility] LABCLIA [id number] [place] [address] [place] Monocytes/100 WBC (Bld) 6.7 % Normal [facility] Comment on above: Order Comment: Speci men Type: BLOOD SPECIMENOrdering Facility: [facility] Address: [address] [place] [address] Performed By: #### 5 8410-2, 73313-7 ####[facility] LABCLIA [id number] [place] [address] [place] Neutrophils (Bld) [#/Vol] 12.04 10*3/uL High 1.45-7.50 [facility] Comment on above: Order Comment: Speci men Type: BLOOD SPECIMENOrdering Facility: [facility] Address: [address] [place] [address] Performed By: #### 5 8410-2, 77813-1 ####[facility] LABCLIA [id number] [place] [address] [place] Neutrophils/100 WBC (Bld) 69.8 % Normal [facility] Comment on above: Order Comment: Speci men Type: BLOOD SPECIMENOrdering Facility: [facility] Address: [address] [place] [address] Performed By: #### 5 8410-2, 23219-4 ####[facility] LABIA [id number] [place] [address] [place] Nucleated RBC/100 WBC (Bld) [Ratio] 0.0 /100 WBC Normal [facility] Comment on above: Order Comment: Speci men Type: BLOOD SPECIMENOrdering Facility: [facility] Address: [address] [place] [address] Performed By: #### 5 8410-2, 44881-5 ####[facility] LABCLIA [id number] [place] [address] [place] CK SerPl-cCncon 03-04-2025 CK [Catalytic activity/Vol] 103 U/L Normal 42-196 [facility] Comment on above: Order Comment: Speci men Type: BLOOD SPECIMENOrdering Facility: [facility] Address: [address] [place] [address] Performed By: #### 2 4362-6, 4498-2, 2157-6, 1988-5, 63220-7 ####[facility] LABCLIA [id number] [address] [address] [place] CONSULTon 03-04-2025 CONSULT Normal [facility] CRP SerPl-mCncon 03-04-2025 CRP [Mass/Vol] 0.8 mg/dL Normal <0.9 [facility] Comment on above: Order Comment: Speci men Type: BLOOD SPECIMENOrdering Facility: [facility] Address: [address] [place], [place] [address] Performed By: #### 2 4362-6, 4498-2, 6, 1988-03, ####[facility] LABCLIA [id number] [address] [address] [place] ED NOTEon 03-04-2025 ED NOTE Normal [facility] ED NOTE HNO ID: [id number] Author: JAILENE MCKEON RN Service: Emergency Medicine Author Type: Registered Nurse Type: ED Notes Filed: 03/04/2025 19:09 Note Text: Assumed care of pt at this time Normal [facility] ED PROV NOTEon 03-04-2025 ED PROV NOTE Normal [facility] ED PROV NOTE Normal [facility] HISTORY PHYSICALon HISTORY PHYSICAL Normal [facility] IgE SerPl-aCncon 03-04-2025 IgE Qn 4.9 kU/l Normal <114.0 [facility] Comment on above: Order Comment: Speci men Type: BLOOD SPECIMENOrdering Facility: [facility] Address: [address] [place] [address] Performed By: #### 2 4362-6, 4498-2, 6, 1988-03, ####[facility] LABCLIA [id number] [address] [address] [place] Renal function 2000 panelon 03-04-2025 Albumin [Mass/Vol] 4.4 g/dL Normal 3.9-4.9 [facility] Comment on above: Order Comment: Speci men Type: BLOOD SPECIMENOrdering Facility: [facility] Address: [address] [place], [place] [address] Performed By: #### 2 4362-6, 4498-2, 2157-04, 1988-03, ####[facility] LABCLIA [id number] [address] [address] [place] Anion gap [Moles/Vol] 12 mmol/L Normal 8-15 [facility] Comment on above: Order Comment: Speci men Type: BLOOD SPECIMENOrdering Facility: [facility] Address: [address] [place], [place] [address] Performed By: #### 2 4362-6, 4498-2, 2157-04, 1988-03, ####[facility] LABIA [id number] [address] [address] [place] Calcium [Mass/Vol] 9.2 mg/dL Normal 8.5-10.2 [facility] Comment on above: Order Comment: Speci men Type: BLOOD SPECIMENOrdering Facility: [facility] Address: [address] [place], [place] [address] Performed By: #### 2 4362-6, 4498-2, 2157-04, 1988-03, ####[facility] LABIA [id number] [address] [address] [place] Chloride [Moles/Vol] 104 mmol/L Normal 98-107 [facility] Comment on above: Order Comment: Speci men Type: BLOOD SPECIMENOrdering Facility: [facility] Address: [address] [place] [address] Performed By: #### 2 4362-6, 4498-2, 2157-04, 1988-03, ####[facility] LABIA [id number] [address] [address] [place] CO2 [Moles/Vol] 23 mmol/L Normal 22-30 [facility] Comment on above: Order Comment: Speci men Type: BLOOD SPECIMENOrdering Facility: [facility] Address: [address] [place] [address] Performed By: #### 2 4362-6, 4498-2, 2157-04, ####[facility] LABCLIA [id number] [address] [address] [place] Creatinine [Mass/Vol] 0.70 mg/dL Normal 0.58-0.96 [facility] Comment on above: Order Comment: Speci men Type: BLOOD SPECIMENOrdering Facility: [facility] Address: [address] [place], [place] [address] Performed By: #### 2 4362-6, 4498-2, 2157-04, 1988-03, ####[facility] LABIA [id number] [address] [address] [place] Creatinine and Glomerular filtration rate.predicted panel (S/P/Bld) 117 mL/min/1.73m??? Normal >=60 [facility] Comment on above: Order Comment: Speci men Type: BLOOD SPECIMENOrdering Facility: [facility] Address: [address] [place], [place] [address] Result Comment: Anne-Marie mated Glomerular Filtration Rate [...] Performed By: #### 2 4362-6, 4498-2, 2157-04, ####[facility] LABIA [id number] [address] [address] [place] Glucose [Mass/Vol] 117 mg/dL High 74-99 [facility] Comment on above: Order Comment: Speci men Type: BLOOD SPECIMENOrdering Facility: [facility] Address: [address] [place], [place] [address] [id number] Result Comment: The [place] [employer] (ADA) provides guidance for cutoff [...] Standards of Medical Care in Diabetes 2016, [place] [employer]. Diabetes Care. 2016.39(Suppl 1). Performed By: #### 2 4362-6, 4498-2, 2157-04, 1988-03, ####[facility] LABCLIA [id number] [place] [address] [place] Phosphate [Mass/Vol] 2.9 mg/dL Normal 2.7-4.8 [facility] Comment on above: Order Comment: Speci men Type: BLOOD SPECIMENOrdering Facility: [facility] Address: [address] [place], [place] [address] [address] Performed By: #### 2 4362-6, 4498-2, 2157-04, 1988-03, ####[facility] LABCLIA [id number] [place] [id number] [place] Potassium [Moles/Vol] 3.8 mmol/L Normal 3.7-5.1 [facility] Comment on above: Order Comment: Speci men Type: BLOOD SPECIMENOrdering Facility: [facility] Address: [address] [place], [place] [address] [id number] Performed By: #### 2 4362-6, 4498-2, 2157-04, ####[facility] LABCLIA [id number] [place] [id number] [place] Sodium [Moles/Vol] 139 mmol/L Normal 136-144 [facility] Comment on above: Order Comment: Speci men Type: BLOOD SPECIMENOrdering Facility: [facility] Address: [address] [place] [address] Performed By: #### 2 4362-6, 4498-2, 6, 1988-03, ####[facility] LABIA [id number] [place] [address] [place] Urea nitrogen [Mass/Vol] 16 mg/dL Normal 7-21 [facility] Comment on above: Order Comment: Speci men Type: BLOOD SPECIMENOrdering Facility: [facility] Address: [address] [place] [address] Performed By: #### 2 4362-6, 4498-2, 2157-04, 1988-03, ####[facility] [id number] [place] [address] [place] S pyo DNA Throat Ql LAURA+prob eloise 03-04-2025 S. pyogenes DNA LAURA+probe Ql (Throat) Not detected Normal Not detected [facility] Comment on above: Order Comment: Speci men Type: SWABOrdering Facility: [facility] Address: [address] [place] [address] Performed By: #### 6 0489-2 ####[facility] LABIA [id number] [place] [address] [place] TOXICOLOGY SCREEN, ROUTINE U RINEon 03-04-2025 Amphetamines Confirm (U) [Mass/Vol] Negative Normal Negative [facility] Comment on above: Order Comment: Speci men Type: URINE SPECIMENOrdering Facility: [facility] Address: [address] [place] [address] Result Comment: Cuto ff threshold at 1000 ng/mL. Performed By: #### U TOX2 ####[facility] LABCLIA [id number] [place] [address] [place] BARBITURATES, URINE Negative Normal Negative [facility] Comment on above: Order Comment: Speci men Type: URINE SPECIMENOrdering Facility: [facility] Address: [address] [place] [address] Result Comment: Cuto ff threshold at 200 ng/mL. Performed By: #### U TOX2 ####[facility] LABCLIA [id number] [place] [address] [place] BENZODIAZEPINES, UR Positive Abnormal Negative [facility] Comment on above: Order Comment: Speci men Type: URINE SPECIMENOrdering Facility: [facility] Address: [address] [place] [address] Result Comment: Cuto ff threshold at 200 ng/mL. Performed By: #### U TOX2 ####[facility] LABCLIA [id number] [place] [address] [place] Cannabinoids Screen Ql (U) Negative Normal Negative [facility] Comment on above: Order Comment: Speci men Type: URINE SPECIMENOrdering Facility: [facility] Address: [address] [place] [address] Result Comment: Cuto ff threshold at 50 ng/mL. Performed By: #### U TOX2 ####[facility] LABCLIA [id number] [place] [address] [place] Cocaine Ql (U) Negative Normal Negative [facility] Comment on above: Order Comment: Speci men Type: URINE SPECIMENOrdering Facility: [facility] Address: [address] [place] [address] Result Comment: Cuto ff threshold at 300 ng/mL. Performed By: #### U TOX2 ####[facility] LABCLIA [id number] [place] [address] [place] Ethanol (U) [Mass/Vol] <11 Normal <11 [facility] Comment on above: Order Comment: Speci men Type: URINE SPECIMENOrdering Facility: [facility] Address: [address] [place] [address] Performed By: #### U TOX2 ####[facility] LABCLIA [id number] [place] [address] [place] Opiates Screen Ql (U) Negative Normal Negative [facility] Comment on above: Order Comment: Speci men Type: URINE SPECIMENOrdering Facility: [facility] Address: [address] [place] [address] Result Comment: Cuto ff threshold at 300 ng/mL. Performed By: #### U TOX2 ####[facility] LABCLIA [id number] [place] [address] [place] oxyCODONE cutoff Screen (U) [Mass/Vol] Negative Normal Negative [facility] Comment on above: Order Comment: Speci men Type: URINE SPECIMENOrdering Facility: [facility] Address: [address] [place] [address] Result Comment: Cuto ff threshold at 100 ng/mL. Performed By: #### U TOX2 ####[facility] LABIA [id number] [place] [address] [place] Phencyclidine Ql (U) Negative Normal Negative [facility] Comment on above: Order Comment: Speci men Type: URINE SPECIMENOrdering Facility: [facility] Address: [address] [place] [address] Result Comment: Cuto ff threshold at 25 ng/mL. Performed By: #### U TOX2 ####[facility] LABCLIA [id number] [place] [address] [place] TRYPTASE BLOODon 03-04-2025 Tryptase [Mass/Vol] 2.5 ug/L Normal <8.4 [facility] Comment on above: Order Comment: Speci men Type: BLOOD SPECIMENOrdering Facility: [facility] Address: [address] [place] [address] Performed By: #### T RYPT ####[facility] LABCLIA [id number] [address] [address] [place] CNDSon 03-03-2025 CNDS Normal [facility] CASE MANAGEMon 03-02-2025 CASE MANAGEM Normal [facility] CONSULTon 03-02-2025 CONSULT Normal [facility] CHAOT BY IFA WITH REFLEXon Nuclear Ab pattern (S) [Interp] Nuclear homogeneous Normal [facility] Comment on above: Order Comment: Speci men Type: BLOOD SPECIMENOrdering Facility: [facility] Address: [address] [place] [address] Performed By: #### A NAIFR, 84689-7, 66682-9, 83850-4, 60934-9, 74753-0, 43206-0, 08996-6, 83047-8, 77058-4 ####[facility] LABIA [id number] [place] [id number] [place] Nuclear Ab Ql (S) Positive Abnormal Negative [facility] Comment on above: Order Comment: Speci men Type: BLOOD SPECIMENOrdering Facility: [facility] Address: [address] [place] [address] Result Comment: Anti -nuclear antibody test is used as an aid in diagnosis of systemic autoimmune diseases. Where positive and clinically warranted, follow-up using disease-specific testing is recommended. Low positive titers are not uncommon with advanced age, certain chronic infections, and malignancies among others.Test methodology: Indirect fluorescence immunoassay (IFA) using HEp-2 cells.1:80 Performed By: #### A NAIFR, 02867-3, 26998-0, 83487-4, 91389-2, 96563-1, 91377-4, 61085-1, 32155-9, 10141-5 ####[facility] LABIA [id number] [address] [address] [place] CASE MGT INIT ASSESon 2024 CASE MGT INIT ASSES Normal [facility] CONSULT PROGon 03-01-2025 CONSULT PROG Normal [facility] Centromere Ab IF Ql (S)on Centromere Ab Qn (S) 0.7 AI Normal <1.0 [facility] Comment on above: Order Comment: Speci men Type: BLOOD SPECIMENOrdering Facility: [facility] Address: [address] [place] [address] Result Comment: Anti -centromere antibody is used as in aid in diagnosis of systemic sclerosis. Clinical correlation is required.Test Methodology: Multiplex flow immunoassay. Performed By: #### A NAIFR, 21877-0, 01741-7, 50826-3, 65393-2, 40697-4, 16895-9, 25539-5, 30399-1, 44681-8 ####[facility] LABCLIA [id number] [address] [address] [place] CENTROMERE AB QUAL Negative Normal Negative [facility] Comment on above: Order Comment: Speci men Type: BLOOD SPECIMENOrdering Facility: [facility] Address: [address] [place] [address] Performed By: #### A NAIFR, 94509-2, 42471-6, 43731-6, 63261-7, 63845-1, 71682-7, 01367-8, 16753-7, 66184-4 ####[facility] LABCLIA [id number] [address] [address] [place] Chromatin Ab Qnon 03-01-2025 CHROMATIN AB QUAL Negative Normal Negative [facility] Comment on above: Order Comment: Speci men Type: BLOOD SPECIMENOrdering Facility: [facility] Address: [address] [place] [address] Performed By: #### A NAIFR, 09045-4, 58810-5, 51227-5, 86371-8, 01048-3, 72009-6, 15527-0, 30633-0, 98716-6 ####[facility] LABCLIA [id number] [address] [address] [place] Chromatin Ab SerPl-aCncon Chromatin Ab Qn 0.3 AI Normal <1.0 [facility] Comment on above: Order Comment: Speci men Type: BLOOD SPECIMENOrdering Facility: [facility] Address: [address] [place] [address] Result Comment: Test Methodology: Multiplex flow immunoassay. Performed By: #### A CHARLIER, 00111-1, 04394-9, 90251-2, 76928-3, 86680-1, 25690-0, 02233-5, 41226-6, 63199-3 ####[facility] LABCLIA [id number] [address] [place] DNA double strand Ab IA Qn ( S)on 03-01-2025 DNA ANTIBODY 5 IU/mL Normal <=200 [facility] Comment on above: Order Comment: Speci men Type: BLOOD SPECIMENOrdering Facility: [facility] Address: [address] [place] [address] Result Comment: Nega tive: <200 IU/mLEquivocal: 201-300 IU/mLModerate Positive: 301-800 IU/mLStrong Positive: >801 IU/mL Performed By: #### A NAJEANER, 11986-0, 53060-0, 32384-0, 32483-6, 46919-0, 00878-4, 63461-0, 02180-0, 75658-8 ####[facility] LABCLIA [id number] [address] [place] DNA ANTIBODY QUALITATIVE INTERPRETATION Negative Normal Negative [facility] Comment on above: Order Comment: Speci men Type: BLOOD SPECIMENOrdering Facility: [facility] Address: [address] [place] [address] Performed By: #### A NAIFR, 58349-1, 32123-9, 19096-3, 95287-9, 71580-4, 98099-5, 83080-7, 10118-3, 93234-7 ####[facility] LABCLIA [id number] [address] [place] JUICE Jo1 Ab Ser-aCncon 2024 Marisela-1 extractable nuclear Ab Qn (S) <0.2 Normal <1.0 [facility] Comment on above: Order Comment: Speci men Type: BLOOD SPECIMENOrdering Facility: [facility] Address: [address] [place] [address] Performed By: #### A NAIFR, 00300-8, 86010-6, 98926-1, 41809-5, 29294-7, 46581-7, 78501-8, 71255-2, 80552-3 ####[facility] LABCLIA [id number] [address] [place] [employer] Ab Ser-aCncon 2024 Ribonucleoprotein extractable nuclear Ab Qn (S) <0.2 Normal <1.0 [facility] Comment on above: Order Comment: Speci men Type: BLOOD SPECIMENOrdering Facility: [facility] Address: [address] [place] [address] Performed By: #### A NAIFR, 26020-9, 96331-3, 01524-9, 56283-5, 09938-8, 65025-7, 17287-2, 64874-5, 21284-7 ####[facility] LABCLIA [id number] [place] [address] [place] JUICE SM IgG Ser-aCncon 2024 Hawthorne extractable nuclear IgG Qn (S) <0.2 Normal <1.0 [facility] Comment on above: Order Comment: Speci men Type: BLOOD SPECIMENOrdering Facility: [facility] Address: [address] [place] [address] Performed By: #### A NAIFR, 06723-4, 59642-9, 25160-2, 67008-7, 63074-2, 33415-5, 45420-1, 64504-6, 85767-6 ####[facility] LABCLIA [id number] [place] [address] [place] JUICE SS-A Ab Ser-aCncon 03-01 Sjogrens syndrome-A extractable nuclear Ab Qn (S) <0.2 Normal <1.0 [facility] Comment on above: Order Comment: Speci men Type: BLOOD SPECIMENOrdering Facility: [facility] Address: [address] [place] [address] Result Comment: Test Methodology: Multiplex flow immunoassay. Performed By: #### A NAIFR, 71620-9, 57756-5, 97235-5, 88634-4, 33014-3, 65092-9, 97399-9, 59657-8, 74290-3 ####[facility] [id number] [place] [address] [place] JUICE SS-B Ab Ser-aCncon 03-01 Sjogrens syndrome-B extractable nuclear Ab Qn (S) <0.2 Normal <1.0 [facility] Comment on above: Order Comment: Speci men Type: BLOOD SPECIMENOrdering Facility: [facility] Address: [address] [place] [address] Result Comment: Anti -SSB (anti-La) antibody is used as an aid in diagnosis of a variety of systemic autoimmune diseases, especially for Sjogren's syndrome and systemic lupus erythematosus. Clinical correlation is required.Test Methodology: Multiplex flow immunoassay. Performed By: #### A NAIFR, 43156-6, 70364-9, 93314-6, 55533-1, 67490-1, 59597-6, 69789-5, 94101-5, 77625-4 ####[facility] LABIA [id number] [place] [address] [place] Marisela-1 extractable nuclear Ab Qn (S)on 03-01-2025 MARISELA 1 ANTIBODY QUAL Negative Normal Negative [facility] Comment on above: Order Comment: Speci men Type: BLOOD SPECIMENOrdering Facility: [facility] Address: [address] [place] [address] Result Comment: Anti -MARISELA-1 antibody is used as an aid in diagnosis of polymyositis and dermatomyositis especially with pulmonary involvement. A negative result cannot rule out polymyositis or dermatomyositis. Clinical correlation is required.Test Methodology: Multiplex flow immunoassay. Performed By: #### A NAIFR, 04263-4, 36401-8, 66062-9, 83175-3, 94757-7, 21783-0, 22888-1, 36251-9, 54132-2 ####[facility] LABCLIA [id number] [address] [address] [place] JUDITH US BREAST LTD RTon 03-01 JUDITH US BREAST LTD RT Normal [facility] MEDICAL EMERon 03-01-2025 MEDICAL RAQUEL Normal [facility] NURSING PROGon 03-01-2025 NURSING PROG Normal [facility] Ribonucleoprotein extractabl e nuclear Ab Qn (S)on 03-01-2025 [employer] QUAL Negative Normal Negative [facility] Comment on above: Order Comment: Speci men Type: BLOOD SPECIMENOrdering Facility: [facility] Address: [address] [place] [address] Performed By: #### A NAIFR, 67240-6, 87275-7, 52301-9, 29826-9, 75411-7, 07967-6, 76094-3, 52916-5, 66842-7 ####[facility] LABCLIA [id number] [address] [address] [place] [employer] QUAL Negative Normal Negative [facility] Comment on above: Order Comment: Speci men Type: BLOOD SPECIMENOrdering Facility: [facility] Address: [address] [place] [address] Result Comment: Anti -Ribosomal RNA (Ribosomal P) antibody is used as an aid in diagnosis of systemic autoimmune diseases especially systemic lupus erythematosus and mixed connective tissue disease. Cross-reactivity with Anti-hawthorne antibody is not uncommon. Clinical correlation is required.Test Methodology: Multiplex flow immunoassay. Performed By: #### A NAIFR, 23072-7, 56491-0, 62352-0, 30764-0, 87001-2, 36127-4, 63280-9, 29879-5, 33232-3 ####[facility] LABCLIA [id number] [place] [address] [place] SCL-70 extractable nuclear I gG IA Qn (S)on 03-01-2025 SCLERODERMA AB QUAL Negative Normal Negative [facility] Comment on above: Order Comment: Speci men Type: BLOOD SPECIMENOrdering Facility: [facility] Address: [address] [place] [address] Performed By: #### A NAIFR, 66970-6, 17197-4, 97387-1, 78828-9, 33928-1, 86236-6, 62082-6, 16249-7, 73155-9 ####[facility] LABIA [id number] [address] [place] SCLERODERMA IGG AB <0.2 Normal <1.0 [facility] Comment on above: Order Comment: Speci men Type: BLOOD SPECIMENOrdering Facility: [facility] Address: [address] [place] [address] Result Comment: Scl- 70/Scleroderma antibody test is used as an aid in diagnosis of systemic sclerosis especially the diffuse cutaneous form. A negative result cannot rule out systemic sclerosis. The final interpretation should consider clinical picture and other test results such as anti-centromere antibody. Test Methodology: Multiplex flow immunoassay. Performed By: #### A NAIFR, 35865-4, 02055-8, 68232-7, 65473-2, 82754-9, 54430-3, 03397-2, 95883-0, 14634-5 ####[facility] LABIA [id number] [place] [address] [place] Sjogrens syndrome-A extracta ble nuclear Ab Qn (S)on 03-01-2025 SSA ANTIBODY QUAL Negative Normal Negative [facility] Comment on above: Order Comment: Speci men Type: BLOOD SPECIMENOrdering Facility: [facility] Address: [address] [place] [address] Performed By: #### A NAIFR, 45135-4, 06985-6, 67689-7, 86677-1, 51047-4, 18283-7, 64638-1, 15750-1, 83104-7 ####[facility] LABCLIA [id number] [place] [address] [place] Sjogrens syndrome-B extracta ble nuclear Ab Qn (S)on 03-01-2025 SSB ANTIBODY QUAL Negative Normal Negative [facility] Comment on above: Order Comment: Speci men Type: BLOOD SPECIMENOrdering Facility: [facility] Address: [address] [place] [address] Performed By: #### A NAIFR, 80001-5, 57495-1, 37546-1, 84782-7, 34133-1, 91142-7, 78939-9, 39440-7, 28378-7 ####[facility] LABIA [id number] [place] [address] [place] Hawthorne extractable nuclear Ig G Qn (S)on 03-01-2025 SM ANTIBODY QUAL Negative Normal Negative [facility] Comment on above: Order Comment: Speci [facility] Type: BLOOD SPECIMENOrdering Facility: [facility] Address: [address] [place] [address] Result Comment: Anti -Sm (Hawthorne) antibody is used as an aid in diagnosis of systemic lupus erythematosus and its presence is associated with renal disease. A negative result cannot rule out systemic lupus erythematosus. Clinical correlation is required.Test Methodology: Multiplex flow immunoassay. Performed By: #### A NAIFR, 77845-9, 44387-2, 53550-3, 66688-9, 80454-7, 53215-0, 76598-2, 62290-8, 77640-4 ####[facility] LABCLIA [id number] [place] [address] [place] TRYPTASE BLOODon 03-01-2025 Tryptase [Mass/Vol] 2.3 ug/L Normal <8.4 [facility] Comment on above: Order Comment: Speci men Type: BLOOD SPECIMENOrdering Facility: [facility] Address: [address] [place] [address] Performed By: #### T RYPT ####[facility] LABCLIA [id number] [place] [address] [place] Tryptase [Mass/Vol] 2.1 ug/L Normal <8.4 [facility] Comment on above: Order Comment: Speci men Type: BLOOD SPECIMENOrdering Facility: [facility] Address: [address] [place] [address] Performed By: #### T RYPT ####[facility] LABCLIA [id number] [place] [address] [place] CONSULTon 02-28-2025 CONSULT Normal [facility] CONSULT Normal [facility] Basic metabolic 2000 panelon 02-27-2025 Anion gap [Moles/Vol] 12 mmol/L Normal 8-15 [facility] Comment on above: Order Comment: Speci men Type: BLOOD SPECIMENOrdering Facility: [facility] Address: [address] [place] [address] Performed By: #### 2 4321-2 ####[facility] LABCLIA [id number] [place] [address] [place] Calcium [Mass/Vol] 8.8 mg/dL Normal 8.5-10.2 [facility] Comment on above: Order Comment: Speci men Type: BLOOD SPECIMENOrdering Facility: [facility] Address: [address] [place] [address] Performed By: #### 2 4321-2 ####[facility] LABCLIA [id number] [place] [address] [place] Chloride [Moles/Vol] 105 mmol/L Normal 98-107 [facility] Comment on above: Order Comment: Speci men Type: BLOOD SPECIMENOrdering Facility: [facility] Address: [address] [id number] Performed By: #### 2 4321-2 ####[facility] LABCLIA [id number] [place] [address] [place] CO2 [Moles/Vol] 22 mmol/L Normal 22-30 [facility] Comment on above: Order Comment: Speci men Type: BLOOD SPECIMENOrdering Facility: [facility] Address: [address] [place] [address] Performed By: #### 2 4321-2 ####[facility] LABIA [id number] [place] [address] [place] Creatinine [Mass/Vol] 0.72 mg/dL Normal 0.58-0.96 [facility] Comment on above: Order Comment: Speci men Type: BLOOD SPECIMENOrdering Facility: [facility] Address: [address] [place] [address] Performed By: #### 2 4321-2 ####[facility] LABIA [id number] [place] [address] [place] Creatinine and Glomerular filtration rate.predicted panel (S/P/Bld) 113 mL/min/1.73m??? Normal >=60 [facility] Comment on above: Order Comment: Speci men Type: BLOOD SPECIMENOrdering Facility: [facility] Address: [address] [place] [address] Result Comment: Anne-Marie mated Glomerular Filtration Rate [...] actual GFR. Performed By: #### 2 4321-2 ####[facility] LABCLIA [id number] [place] [id number] [place] Glucose [Mass/Vol] 115 mg/dL High 74-99 [facility] Comment on above: Order Comment: Speci men Type: BLOOD SPECIMENOrdering Facility: [facility] Address: [address] [place] [address] Result Comment: The [place] [employer] (ADA) provides guidance for cutoff [...] Standards of Medical Care in Diabetes 2016, [place] [employer]. Diabetes Care. 2016.39(Suppl 1). Performed By: #### 2 4321-2 ####[facility] LABCLIA [id number] [place] [address] [place] Potassium [Moles/Vol] 3.6 mmol/L Low 3.7-5.1 [facility] Comment on above: Order Comment: Speci men Type: BLOOD SPECIMENOrdering Facility: [facility] Address: [address] [place] [address] Performed By: #### 2 4321-2 ####[facility] LABCLIA [id number] [place] [id number] [place] Sodium [Moles/Vol] 139 mmol/L Normal 136-144 [facility] Comment on above: Order Comment: Speci men Type: BLOOD SPECIMENOrdering Facility: [facility] Address: [address] [place] [address] Performed By: #### 2 4321-2 ####[facility] LABCLIA [id number] [place] [address] [place] Urea nitrogen [Mass/Vol] 11 mg/dL Normal 7-21 [facility] Comment on above: Order Comment: Speci men Type: BLOOD SPECIMENOrdering Facility: [facility] Address: [address] [place] [address] Performed By: #### 2 4321-2 ####[facility] LABCLIA [id number] [place] [address] [place] CBC W Auto Differential pane l (Bld)on 02-27-2025 Basophils (Bld) [#/Vol] 0.03 10*3/uL Normal <0.11 [facility] Comment on above: Order Comment: Speci men Type: BLOOD SPECIMENOrdering Facility: [facility] Address: [address] [place] [address] Performed By: #### 5 7021-8 ####[facility] LABCLIA [id number] [place] [address] [place] Basophils/100 WBC (Bld) 0.4 % Normal [facility] Comment on above: Order Comment: Speci men Type: BLOOD SPECIMENOrdering Facility: [facility] Address: [address] [place] [address] Performed By: #### 5 7021-8 ####[facility] LABCLIA [id number] [place] [address] [place] Differential cell count method Nom (Bld) Auto Normal [facility] Comment on above: Order Comment: Speci men Type: BLOOD SPECIMENOrdering Facility: [facility] Address: [address] [place] [address] Performed By: #### 5 7021-8 ####[facility] LABCLIA [id number] [place] [address] [place] Eosinophils (Bld) [#/Vol] 0.13 10*3/uL Normal <0.46 [facility] Comment on above: Order Comment: Speci men Type: BLOOD SPECIMENOrdering Facility: [facility] Address: [address] [place] [address] Performed By: #### 5 7021-8 ####[facility] LABCLIA [id number] [address] [address] [place] Eosinophils/100 WBC (Bld) 1.7 % Normal [facility] Comment on above: Order Comment: Speci men Type: BLOOD SPECIMENOrdering Facility: [facility] Address: [address] [place] [address] Performed By: #### 5 7021-8 ####[facility] LABCLIA [id number] [place] [address] [place] Erythrocyte distribution width (RBC) [Ratio] 13.6 % Normal 11.5-15.0 [facility] Comment on above: Order Comment: Speci men Type: BLOOD SPECIMENOrdering Facility: [facility] Address: [address] [place] [address] Performed By: #### 5 7021-8 ####[facility] LABCLIA [id number] [place] [address] [place] Hematocrit (Bld) [Volume fraction] 38.5 % Normal 36.0-46.0 [facility] Comment on above: Order Comment: Speci men Type: BLOOD SPECIMENOrdering Facility: [facility] Address: [address] [place] [address] Performed By: #### 5 7021-8 ####[facility] LABCLIA [id number] [place] [id number] [place] Hemoglobin (Bld) [Mass/Vol] 12.9 g/dL Normal 11.5-15.5 [facility] Comment on above: Order Comment: Speci men Type: BLOOD SPECIMENOrdering Facility: [facility] Address: [address] [place] [address] Performed By: #### 5 7021-8 ####[facility] LABCLIA [id number] [address] [address] [place] Immature granulocytes (Bld) [#/Vol] 0.07 10*3/uL Normal <0.10 [facility] Comment on above: Order Comment: Speci men Type: BLOOD SPECIMENOrdering Facility: [facility] Address: [address] [place] [address] Performed By: #### 5 7021-8 ####[facility] LABCLIA [id number] [place] [address] [place] Immature granulocytes/100 WBC (Bld) 0.9 % Normal [facility] Comment on above: Order Comment: Speci men Type: BLOOD SPECIMENOrdering Facility: [facility] Address: [address] [place] [address] Performed By: #### 5 7021-8 ####[facility] LABCLIA [id number] [place] [address] [place] Lymphocytes (Bld) [#/Vol] 2.34 10*3/uL Normal 1.00-4.00 [facility] Comment on above: Order Comment: Speci men Type: BLOOD SPECIMENOrdering Facility: [facility] Address: [address] [place] [address] Performed By: #### 5 7021-8 ####[facility] LABCLIA [id number] [place] [address] [place] Lymphocytes/100 WBC (Bld) 30.1 % Normal [facility] Comment on above: Order Comment: Speci men Type: BLOOD SPECIMENOrdering Facility: [facility] Address: [address] [place] [address] Performed By: #### 5 7021-8 ####[facility] LABCLIA [id number] [address] [place] [address] [place] MCH (RBC) [Entitic mass] 29.1 pg Normal 26.0-34.0 [facility] Comment on above: Order Comment: Speci men Type: BLOOD SPECIMENOrdering Facility: [facility] Address: [address] [place] [address] Performed By: #### 5 7021-8 ####[facility] LABCLIA [id number] [place] [address] [place] MCHC (RBC) [Mass/Vol] 33.5 g/dL Normal 30.5-36.0 [facility] Comment on above: Order Comment: Speci men Type: BLOOD SPECIMENOrdering Facility: [facility] Address: [address] [place] [address] Performed By: #### 5 7021-8 ####[facility] LABIA [id number] [place] [address] [place] MCV (RBC) [Entitic vol] 86.7 fL Normal 80.0-100.0 [facility] Comment on above: Order Comment: Speci men Type: BLOOD SPECIMENOrdering Facility: [facility] Address: [address] [place] [address] Performed By: #### 5 7021-8 ####[facility] LABIA [id number] [place] [address] [place] Monocytes (Bld) [#/Vol] 0.37 10*3/uL Normal <0.87 [facility] Comment on above: Order Comment: Speci men Type: BLOOD SPECIMENOrdering Facility: [facility] Address: [address] [place] [address] Performed By: #### 5 7021-8 ####[facility] LABIA [id number] [place] [address] [place] Monocytes/100 WBC (Bld) 4.8 % Normal [facility] Comment on above: Order Comment: Speci men Type: BLOOD SPECIMENOrdering Facility: [facility] Address: [address] [place] [address] Performed By: #### 5 7021-8 ####[facility] LABCLIA [id number] [address] [address] [place] Neutrophils (Bld) [#/Vol] 4.83 10*3/uL Normal 1.45-7.50 [facility] Comment on above: Order Comment: Speci men Type: BLOOD SPECIMENOrdering Facility: [facility] Address: [address] [place] [address] Performed By: #### 5 7021-8 ####[facility] LABCLIA [id number] [address], [place] [address] [place] Neutrophils/100 WBC (Bld) 62.1 % Normal [facility] Comment on above: Order Comment: Speci men Type: BLOOD SPECIMENOrdering Facility: [facility] Address: [address] [place] [address] Performed By: #### 5 7021-8 ####[facility] LABCLIA [id number] [place] [address] [place] Nucleated RBC (Bld) [#/Vol] 10*3/uL Normal <0.01 [facility] Comment on above: Order Comment: Speci men Type: BLOOD SPECIMENOrdering Facility: [facility] Address: [address] [place] [address] Performed By: #### 5 7021-8 ####[facility] LABCLIA [id number] [place] [address] [place] Nucleated RBC/100 WBC (Bld) [Ratio] 0.0 /100 WBC Normal [facility] Comment on above: Order Comment: Speci men Type: BLOOD SPECIMENOrdering Facility: [facility] Address: [address] [place] [address] Performed By: #### 5 7021-8 ####[facility] LABCLIA [id number] [place] [id number] [place] Platelet mean volume (Bld) [Entitic vol] 9.9 fL Normal 9.0-12.7 [facility] Comment on above: Order Comment: Speci men Type: BLOOD SPECIMENOrdering Facility: [facility] Address: [address] [place] [address] Performed By: #### 5 7021-8 ####[facility] LABCLIA [id number] [address] [address] [place] Platelets (Bld) [#/Vol] 259 10*3/uL Normal 150-400 [facility] Comment on above: Order Comment: Speci men Type: BLOOD SPECIMENOrdering Facility: [facility] Address: [address] [place] [address] Performed By: #### 5 7021-8 ####[facility] LABCLIA [id number] [address] [address] [place] RBC (Bld) [#/Vol] 4.44 10*6/uL Normal 3.90-5.20 [facility] Comment on above: Order Comment: Speci men Type: BLOOD SPECIMENOrdering Facility: [facility] Address: [address] [place] [address] Performed By: #### 5 7021-8 ####[facility] LABCLIA [id number] [address] [address] [place] WBC (Bld) [#/Vol] 7.77 10*3/uL Normal 3.70-11.00 [facility] Comment on above: Order Comment: Speci men Type: BLOOD SPECIMENOrdering Facility: [facility] Address: [address] [place] [address] Performed By: #### 5 7021-8 ####[facility] LABIA [id number] [address] [address] [place] CONSULTon 02-27-2025 CONSULT Normal [facility] ED NOTEon 02-27-2025 ED NOTE HNO ID: [id number] Author: CARMEN DARDEN RN Service: ? Author Type: Registered Nurse Type: ED Notes Filed: 02/27/2025 16:44 Note Text: Bed: E18-11 Expected date: Expected time: Means of arrival: Comments: ems Normal [facility] ED PROV NOTEon 02-27-2025 ED PROV NOTE Normal [facility] ED Triage Noteon 02-27-2025 ED Triage Note Normal [facility] HISTORY PHYSICALon HISTORY PHYSICAL Normal [facility] CNPNon 02-15-2025 CNPN Normal [facility] Bacteria Bld Culton 02-15-20 25 Bacteria identified Cx Nom (Bld) CULTURE, BLOOD: No growth 5 days Normal [facility] Comment on above: Performed By: #### 6 00-7 ####[facility] LABCLIA [id number] [place] [address] [place] Bacteria identified Cx Nom (Bld) CULTURE, BLOOD: No growth 5 days Normal [facility] Comment on above: Performed By: #### 6 00-7 ####[facility] LABCLIA [id number] [place] [address] [place] Bacteria Wnd Culton 02-15-20 25 Bacteria identified Cx Nom (Wound) CULTURE, WOUND: No growth GRAM STAIN: No organisms seen No Polymorphonuclear Leukocytes Normal [facility] Comment on above: Performed By: #### 6 462-6 ####[facility] LABCLIA [id number] [place] [address] [place] CBC W Auto Differential pane l (Bld)on 02-14-2025 Basophils (Bld) [#/Vol] 0.04 10*3/uL Normal <0.11 [facility] Comment on above: Order Comment: Speci men Type: BLOOD SPECIMENOrdering Facility: [facility] Address: [address] [place] [address] Performed By: #### 5 7021-8 ####[facility] LWCLIA [id number] [place] [address] [place] Basophils/100 WBC (Bld) 0.4 % Normal [facility] Comment on above: Order Comment: Speci men Type: BLOOD SPECIMENOrdering Facility: [facility] Address: [address] [place] [address] Performed By: #### 5 7021-8 ####[facility] LWCLIA [id number] [place] [id number] [place] Differential cell count method Nom (Bld) Auto Normal [facility] Comment on above: Order Comment: Speci men Type: BLOOD SPECIMENOrdering Facility: [facility] Address: [address] [place] [address] Performed By: #### 5 7021-8 ####[facility] LWCLIA [id number] [place] [address] [place] Eosinophils (Bld) [#/Vol] 0.14 10*3/uL Normal <0.46 [facility] Comment on above: Order Comment: Speci men Type: BLOOD SPECIMENOrdering Facility: [facility] Address: [address] [place] [address] Performed By: #### 5 7021-8 ####[facility] LWCLIA [id number] [place] [address] [place] [facility] Eosinophils/100 WBC (Bld) 1.6 % Normal [facility] Comment on above: Order Comment: Speci men Type: BLOOD SPECIMENOrdering Facility: [facility] Address: [address] [place] [address] Performed By: #### 5 7021-8 ####[facility] LWCLIA [id number] [place] [id number] [place] Erythrocyte distribution width (RBC) [Ratio] 13.4 % Normal 11.5-15.0 [facility] Comment on above: Order Comment: Speci men Type: BLOOD SPECIMENOrdering Facility: [facility] Address: [address] [place] [address] Performed By: #### 5 7021-8 ####[facility] LWCLIA [id number] [place] [address] [place] Hematocrit (Bld) [Volume fraction] 42.3 % Normal 36.0-46.0 [facility] Comment on above: Order Comment: Speci men Type: BLOOD SPECIMENOrdering Facility: [facility] Address: [address] [place] [address] Performed By: #### 5 7021-8 ####[facility] LWIA [id number] [place] [address] [place] Hemoglobin (Bld) [Mass/Vol] 14.1 g/dL Normal 11.5-15.5 [facility] Comment on above: Order Comment: Speci men Type: BLOOD SPECIMENOrdering Facility: [facility] Address: [address] [place] [address] Performed By: #### 5 7021-8 ####[facility] [id number] [place] [address] [place] Immature granulocytes (Bld) [#/Vol] 0.10 10*3/uL High <0.10 [facility] Comment on above: Order Comment: Speci men Type: BLOOD SPECIMENOrdering Facility: [facility] Address: [address] [place] [address] Performed By: #### 5 7021-8 ####[facility] LWIA [id number] [place] [id number] [place] Immature granulocytes/100 WBC (Bld) 1.1 % Normal [facility] Comment on above: Order Comment: Speci men Type: BLOOD SPECIMENOrdering Facility: [facility] Address: [address] [place] [address] Performed By: #### 5 7021-8 ####[facility] LWIA [id number] [place] [id number] [place] Lymphocytes (Bld) [#/Vol] 3.63 10*3/uL Normal 1.00-4.00 [facility] Comment on above: Order Comment: Speci men Type: BLOOD SPECIMENOrdering Facility: [facility] Address: [address] [place] [address] Performed By: #### 5 7021-8 ####[facility] LWCLIA [id number] [address] [place] OF [facility] Lymphocytes/100 WBC (Bld) 40.2 % Normal [facility] Comment on above: Order Comment: Speci men Type: BLOOD SPECIMENOrdering Facility: [facility] Address: [address] [place] [address] Performed By: #### 5 7021-8 ####[facility] LWCLIA [id number] [place] [address] [place] MCH (RBC) [Entitic mass] 29.3 pg Normal 26.0-34.0 [facility] Comment on above: Order Comment: Speci men Type: BLOOD SPECIMENOrdering Facility: [facility] Address: [address] [place] [address] Performed By: #### 5 7021-8 ####[facility] LWCLIA [id number] [place] [address] [place] MCHC (RBC) [Mass/Vol] 33.3 g/dL Normal 30.5-36.0 [facility] Comment on above: Order Comment: Speci men Type: BLOOD SPECIMENOrdering Facility: [facility] Address: [address] [place] [address] Performed By: #### 5 7021-8 ####[facility] LWCLIA [id number] [address] [place] MCV (RBC) [Entitic vol] 87.8 fL Normal 80.0-100.0 [facility] Comment on above: Order Comment: Speci men Type: BLOOD SPECIMENOrdering Facility: [facility] Address: [address] [place] [address] Performed By: #### 5 7021-8 ####[facility] LWCLIA [id number] [place] [address] [place] Monocytes (Bld) [#/Vol] 0.57 10*3/uL Normal <0.87 [facility] Comment on above: Order Comment: Speci men Type: BLOOD SPECIMENOrdering Facility: [facility] Address: [address] [place] [address] Performed By: #### 5 7021-8 ####[facility] LWCLIA [id number] [place] [address] [place] Monocytes/100 WBC (Bld) 6.3 % Normal [facility] Comment on above: Order Comment: Speci men Type: BLOOD SPECIMENOrdering Facility: [facility] Address: [address] [place] [address] Performed By: #### 5 7021-8 ####[facility] LWCLIA [id number] [place] [address] [place] Neutrophils (Bld) [#/Vol] 4.55 10*3/uL Normal 1.45-7.50 [facility] Comment on above: Order Comment: Speci men Type: BLOOD SPECIMENOrdering Facility: [facility] Address: [address] [place] [address] Performed By: #### 5 7021-8 ####[facility] LWCLIA [id number] [place] [address] [place] Neutrophils/100 WBC (Bld) 50.4 % Normal [facility] Comment on above: Order Comment: Speci men Type: BLOOD SPECIMENOrdering Facility: [facility] Address: [address] [place] [address] Performed By: #### 5 7021-8 ####[facility] LWCLIA [id number] [place] [id number] [place] Nucleated RBC (Bld) [#/Vol] 10*3/uL Normal <0.01 [facility] Comment on above: Order Comment: Speci men Type: BLOOD SPECIMENOrdering Facility: [facility] Address: [address] [place] [address] Performed By: #### 5 7021-8 ####[facility] LWCLIA [id number] [place] [address] [place] Nucleated RBC/100 WBC (Bld) [Ratio] 0.0 /100 WBC Normal [facility] Comment on above: Order Comment: Speci men Type: BLOOD SPECIMENOrdering Facility: [facility] Address: [address] [place] [address] Performed By: #### 5 7021-8 ####[facility] LWCLIA [id number] [place] [address] [place] Platelet mean volume (Bld) [Entitic vol] 10.1 fL Normal 9.0-12.7 [facility] Comment on above: Order Comment: Speci men Type: BLOOD SPECIMENOrdering Facility: [facility] Address: [address] [place] [address] Performed By: #### 5 7021-8 ####[facility] LWCLIA [id number] [place] [address] [place] Platelets (Bld) [#/Vol] 299 10*3/uL Normal 150-400 [facility] Comment on above: Order Comment: Speci men Type: BLOOD SPECIMENOrdering Facility: [facility] Address: [address] [place] [address] Performed By: #### 5 7021-8 ####[facility] LWCLIA [id number] [place] [address] [place] RBC (Bld) [#/Vol] 4.82 10*6/uL Normal 3.90-5.20 [facility] Comment on above: Order Comment: Speci men Type: BLOOD SPECIMENOrdering Facility: [facility] Address: [address] [place] [address] Performed By: #### 5 7021-8 ####[facility] LWCLIA [id number] [place] [id number] [place] WBC (Bld) [#/Vol] 9.03 10*3/uL Normal 3.70-11.00 [facility] Comment on above: Order Comment: Speci men Type: BLOOD SPECIMENOrdering Facility: [facility] Address: [address] [place] [address] Performed By: #### 5 7021-8 ####[facility] LWCLIA [id number] [place] [address] [place] CNPNon 02-14-2025 CNPN Normal [facility] metabolic 2000 panelon 02-14-2025 Albumin [Mass/Vol] 4.7 g/dL Normal 3.9-4.9 [facility] Comment on above: Order Comment: Speci men Type: BLOOD SPECIMENOrdering Facility: [facility] Address: [address] [place] [address] Performed By: #### 2 4323-8 ####[facility] LWCLIA [id number] [place] [address] [place] ALP [Catalytic activity/Vol] 133 U/L High 34-123 [facility] Comment on above: Order Comment: Speci men Type: BLOOD SPECIMENOrdering Facility: [facility] Address: [address] [place] [address] Performed By: #### 2 4323-8 ####[facility] LWCLIA [id number] [place] [address] [place] ALT [Catalytic activity/Vol] 40 U/L High 7-38 [facility] Comment on above: Order Comment: Speci men Type: BLOOD SPECIMENOrdering Facility: [facility] Address: [address] [place] [address] Performed By: #### 2 4323-8 ####[facility] LWCLIA [id number] [place] [address] [place] Anion gap [Moles/Vol] 12 mmol/L Normal 8-15 [facility] Comment on above: Order Comment: Speci men Type: BLOOD SPECIMENOrdering Facility: [facility] Address: [address] [place] [address] Performed By: #### 2 4323-8 ####[facility] LWCLIA [id number] [place] [id number] [place] AST [Catalytic activity/Vol] 22 U/L Normal 13-35 [facility] Comment on above: Order Comment: Speci men Type: BLOOD SPECIMENOrdering Facility: [facility] Address: [address] [place] [address] Performed By: #### 2 4323-8 ####[facility] LWCLIA [id number] [place] [address] [place] Bilirubin [Mass/Vol] 0.2 mg/dL Normal 0.2-1.3 [facility] Comment on above: Order Comment: Speci men Type: BLOOD SPECIMENOrdering Facility: [facility] Address: [address] [place] [address] Performed By: #### 2 4323-8 ####[facility] LWCLIA [id number] [place] [address] [place] Calcium [Mass/Vol] 9.5 mg/dL Normal 8.5-10.2 [facility] Comment on above: Order Comment: Speci men Type: BLOOD SPECIMENOrdering Facility: [facility] Address: [address] [place] [address] Performed By: #### 2 4323-8 ####[facility] LWCLIA [id number] [place] [address] [place] Chloride [Moles/Vol] 102 mmol/L Normal 98-107 [facility] Comment on above: Order Comment: Speci men Type: BLOOD SPECIMENOrdering Facility: [facility] Address: [address] [place] [address] Performed By: #### 2 4323-8 ####[facility] LWCLIA [id number] [place] [id number] [place] CO2 [Moles/Vol] 26 mmol/L Normal 22-30 [facility] Comment on above: Order Comment: Speci men Type: BLOOD SPECIMENOrdering Facility: [facility] Address: [address] [place] [address] Performed By: #### 2 4323-8 ####[facility] LWCLIA [id number] [place] [address] [place] Creatinine [Mass/Vol] 0.75 mg/dL Normal 0.58-0.96 [facility] Comment on above: Order Comment: Speci men Type: BLOOD SPECIMENOrdering Facility: [facility] Address: [address] [place] [address] Performed By: #### 2 4323-8 ####[facility] LWCLIA [id number] [address] [place] [facility] Creatinine and Glomerular filtration rate.predicted panel (S/P/Bld) 107 mL/min/1.73m??? Normal >=60 [facility] Comment on above: Order Comment: Speci men Type: BLOOD SPECIMENOrdering Facility: [facility] Address: [address] [place] [address] Result Comment: Anne-Marie mated Glomerular Filtration Rate [...] actual GFR. Performed By: #### 2 4323-8 ####[facility] LWCLIA [id number] [place] [id number] [place] Glucose [Mass/Vol] 92 mg/dL Normal 74-99 [facility] Comment on above: Order Comment: Speci men Type: BLOOD SPECIMENOrdering Facility: [facility] Address: [address] [place] [address] Result Comment: The [place] [employer] (ADA) provides guidance for cutoff [...] Standards of Medical Care in Diabetes 2016, [place] [employer]. Diabetes Care. 2016.39(Suppl 1). Performed By: #### 2 4323-8 ####[facility] [id number] [place] [address] [place] Potassium [Moles/Vol] 4.0 mmol/L Normal 3.7-5.1 [facility] Comment on above: Order Comment: Speci men Type: BLOOD SPECIMENOrdering Facility: [facility] Address: [address] [place] [address] Performed By: #### 2 4323-8 ####[facility] [id number] [place] [address] [place] Protein [Mass/Vol] 7.3 g/dL Normal 6.3-8.0 [facility] Comment on above: Order Comment: Speci men Type: BLOOD SPECIMENOrdering Facility: [facility] Address: [address] [place] [address] Performed By: #### 2 4323-8 ####[facility] [id number] [place] [id number] [place] Sodium [Moles/Vol] 140 mmol/L Normal 136-144 [facility] Comment on above: Order Comment: Speci men Type: BLOOD SPECIMENOrdering Facility: [facility] Address: [address] [place] [address] Performed By: #### 2 4323-8 ####[facility] LWCLIA [id number] [place] [id number] [place] Urea nitrogen [Mass/Vol] 15 mg/dL Normal 7-21 [facility] Comment on above: Order Comment: Speci men Type: BLOOD SPECIMENOrdering Facility: [facility] Address: [facility] [place][note 2] [place] [address] Performed By: #### 2 4323-8 ####[facility] LWCLIA [id number] [place] [address] [facility] ED NOTEon 02-14-2025 ED NOTE Normal [facility] ED NOTE Normal [facility] ED NOTE HNO ID: [id number] Author: TINO BARBOSA RN Service: ? Author Type: Registered Nurse Type: ED Notes Filed: 02/14/2025 20:54 Note Text: US at bedside Normal [facility] ED NOTE Normal [facility] ED PROV NOTEon 02-14-2025 ED PROV NOTE Normal [facility] ED Triage Noteon 02-14-2025 ED Triage Note Normal [facility] US CHEST WALL/SOFT TISSUEon 02-14-2025 US CHEST WALL/SOFT TISSUE Invalid Interpretation Code [facility] CNOVon 02-01-2025 CNOV Normal [facility] DBT Breast - bilateral diagn ostic for [...] the following is a link to the [facility] care path [email or web address] =[email or web address]. Additionally, a referral to the [facility] is also appropriate. Interpreting Radiologist: James Daniel M.D. Resident/Fellow: Ken Sandoval D.O. Electronically signed on: 02/01/2025 Padder Cushion: MILLA Transcrierich Date/Time: Feb 01 2025 10:58A Dictated by : KEN SANDOVAL, This examination was interpreted and the report reviewed and electronically signed by: JAMES DANIEL MD on Feb 01 2025 12:40PM [facility] DIVISION OF RADIOLOGY * * *Final Report* * * Comments: FINDINGS/RESULT: Targeted ultrasound of medial left breast mul Diagnosis: Breast lesion [facility] Page: 1 Name: MATTHEW HUANG MR#: [id number] Printed: 02/01/2025 12:45:34 * * *Final Report* * * DATE OF EXAM: Feb 01 2025 11:29AM [facility] 0627 - [facility] DIAG W TORIN AMMON / PROCEDURE REASON: Breast lesion * * * * Physician Interpretation * * * * RESULT: [place] [address] #[id number] - [facility]AG W TORIN AMMON #[id number] - [facility] BREAST LTD RT #[id number] - [facility] BREAST LTD LT HISTORY: 35 year-old patient [...] ultrasound of the indicated area was performed. Goomdan scale images were saved. ULTRASOUND FINDINGS: Finding [...] or other abnormality. DIVISION OF RADIOLOGY Provider, [facility] - 02/01/2025 * * *Final Report* * * Comments: FINDINGS/RESULT: Targeted ultrasound of medial left breast mul Diagnosis: Breast lesion [facility] - Page: 1 Name: MATTHEW HUANG MR#: [id number] Printed: 02/01/2025 12:45:34 * * *Final Report* * * DATE OF EXAM: Feb 01 2025 11:29AM [facility] [place] [facility] [place] W TORIN AMMON / PROCEDURE REASON: Breast lesion * * * * Physician Interpretation * * * * RESULT: [place] [address] #[id number] - [facility] DIAG W TORIN AMMON #[id number] - [facility] US BREAST LTD RT #[id number] - [facility] BREAST LTD LT HISTORY: 35 year-old patient [...] the following is a link to the [facility] care path [email or web address] =[email or web address]. Additionally, a referral to the [facility] Breast Clinic is also appropriate. Interpreting Radiologist: James Daniel M.D. Resident/Fellow: Ken Sandoval D.O. Electronically signed on: 02/01/2025 Padder Cushion: MILLA Transcribe Date/Time: Feb 01 2025 10:58A Dictated by : KEN SANDOVAL DO This examination was interpreted and the report reviewed and electronically signed by: JAMES DANIEL MD on Feb 01 2025 12:40PM EST [facility] DIAG W TORIN BILon 2024 [facility] W TORIN AMMON Normal [facility] US BREAST LTD LTon 02-01 [facility] US BREAST LTD LT Normal [facility] JUDITH US BREAST LTD RTon 02-01 [facility] US BREAST LTD RT Normal [facility] No Panel InformationOrdered By: [facility] Provider on 02-01-2025 [facility] No Panel Informationon 02-01 Radiology Study observation (narrative) [facility] US Breast - left limitedon 0 [...] the following is a link to the [facility] care path [email or web address] =[email or web address]. Additionally, a referral to the [facility] is also appropriate. Interpreting Radiologist: James Daniel M.D. Resident/Fellow: Ken Sandoval D.O. Electronically signed on: 02/01/2025 Padder Cushion: MILLA Transcribe Date/Time: Feb 01 2025 12:03P Dictated by : KEN SANDOVAL DO This examination was interpreted and the report reviewed and electronically signed by: JAMES DANIEL MD on Feb 01 2025 12:40PM [facility] DIVISION OF RADIOLOGY * * *Final Report* * * DATE OF EXAM: Feb 01 2025 12:06PM [facility] [place] [facility] OPPRTUNITY BREAST LTD LT / PROCEDURE REASON: Breast lesion * * * * Physician Interpretation * * * * RESULT: [place] [address] #[id number] - [facility] DIAG W TORIN AMMON #[id number] - [facility] OPPRTUNITY BREAST LTD RT #[id number] - [facility] US BREAST LTD LT HISTORY: 35 [...] or other abnormality. DIVISION OF RADIOLOGY Provider, [facility] - 02/01/2025 * * *Final Report* * * DATE OF EXAM: Feb 01 2025 12:06PM [facility] 0593 - [facility] OPPRTUNITY BREAST LTD LT / PROCEDURE REASON: Breast lesion * * * * Physician Interpretation * * * * RESULT: [place] [address] #[id number] - [facility] DIAG W TORIN AMMON #[id number] - [facility] OPPRTUNITY BREAST LTD RT #[id number] - [facility] OPPRTUNITY BREAST LTD LT HISTORY: 35 year-old patient [...] the following is a link to the [facility] care path [email or web address] =[email or web address]. Additionally, a referral to the [facility] is also appropriate. Interpreting Radiologist: James Daniel M.D. Resident/Fellow: Ken Sandoval D.O. Electronically signed on: 02/01/2025 Padder Cushion: MILLA Transcrierich Date/Time: Feb 01 2025 12:03P Dictated by : KEN SANDOVAL, DO This examination was interpreted and the report reviewed and electronically signed by: JAMES DANIEL MD on Feb 01 2025 12:40PM [facility] Breast - right limitedon 02-01-2025 IMPRESSION: Finding [...] the following is a link to the [facility] care path [email or web address] =[id number]. Additionally, a referral to the [facility] is also appropriate. Interpreting Radiologist: James Daniel M.D. Resident/Fellow: Ken Sandoval D.O. Electronically signed on: 02/01/2025 Padder Cushion: MILLA Khanrierich Date/Time: Feb 01 2025 12:06P Dictated by : KEN SANDOVAL, DO This examination was interpreted and the report reviewed and electronically signed by: JAMES DANIEL MD on Feb 01 2025 12:40PM [facility] DIVISION OF RADIOLOGY * * *Final Report* * * DATE OF EXAM: Feb 01 2025 12:06PM [facility] [place] [facility] US BREAST LTD RT / PROCEDURE REASON: Breast lesion * * * * Physician Interpretation * * * * RESULT: [address] [place] [address] #[id number] - [facility] LAMONT HARKINS AMMON #[id number] - [facility] US BREAST LTD RT #[id number] - [facility] US BREAST LTD LT HISTORY: 35 [...] or other abnormality. DIVISION OF RADIOLOGY Provider, [facility] - 02/01/2025 * * *Final Report* * * DATE OF EXAM: Feb 01 2025 12:06PM [facility] 0594 - [facility] OPPRTUNITY BREAST LTD RT / PROCEDURE REASON: Breast lesion * * * * Physician Interpretation * * * * RESULT: [address] [place] [address] #[id number] - [facility] LAMONT HARKINS AMMON #[id number] - [facility] US BREAST LTD RT #[id number] - [facility] US BREAST LTD LT HISTORY: 35 [...] the following is a link to the [facility] care path [email or web address] =[id number]. Additionally, a referral to the [facility] is also appropriate. Interpreting Radiologist: James Daniel M.D. Resident/Fellow: Ken Sandoval D.O. Electronically signed on: 02/01/2025 Padder Cushion: MILLA Transcribe Date/Time: Feb 01 2025 12:06P Dictated by : KEN SANDOVAL DO This examination was interpreted and the report reviewed and electronically signed by: JAMES DANIEL MD on Feb 01 2025 12:40PM EST [facility] Radiology Study observation (narrative) [facility] Basic metabolic 2000 panelon 01-20-2025 Anion gap [Moles/Vol] 11 mmol/L Normal 8-15 [facility] Comment on above: Order Comment: Speci men Type: BLOOD SPECIMENOrdering Facility: [facility] Address: [address] [place] [address] Performed By: #### 2 4321-2, ####[facility] LWCLIA [id number] [place] [id number] [place] Calcium [Mass/Vol] 9.2 mg/dL Normal 8.5-10.2 [facility] Comment on above: Order Comment: Speci men Type: BLOOD SPECIMENOrdering Facility: [facility] Address: [address] [place] [address] Performed By: #### 2 4321-2, ####[facility] LWCLIA [id number] [place] [id number] [place] Chloride [Moles/Vol] 106 mmol/L Normal 98-107 [facility] Comment on above: Order Comment: Speci men Type: BLOOD SPECIMENOrdering Facility: [facility] Address: [address] [place] [address] Performed By: #### 2 43211-24, ####[facility] LWCLIA [id number] [place] [id number] [place] CO2 [Moles/Vol] 23 mmol/L Normal 22-30 [facility] Comment on above: Order Comment: Speci men Type: BLOOD SPECIMENOrdering Facility: [facility] Address: [address] [place] [address] Performed By: #### 2 4320-12, ####[facility] LWCLIA [id number] [place] [id number] [place] Creatinine [Mass/Vol] 0.76 mg/dL Normal 0.58-0.96 [facility] Comment on above: Order Comment: Speci men Type: BLOOD SPECIMENOrdering Facility: [facility] Address: [address] [place] [address] Performed By: #### 2 4320-12, ####[facility] LWCLIA [id number] [place] [id number] [place] Creatinine and Glomerular filtration rate.predicted panel (S/P/Bld) 106 mL/min/1.73m??? Normal >=60 [facility] Comment on above: Order Comment: Speci men Type: BLOOD SPECIMENOrdering Facility: [facility] Address: [address] [place] [address] Result Comment: Anne-Marie mated Glomerular Filtration Rate [...] reflect actual GFR. Performed By: #### 2 43211-24, ####[facility] LWCLIA [id number] [place] [id number] [place] Glucose [Mass/Vol] 100 mg/dL High 74-99 [facility] Comment on above: Order Comment: Speci men Type: BLOOD SPECIMENOrdering Facility: [facility] Address: [address] [place] [address] Result Comment: The [place] [employer] (ADA) provides guidance for cutoff [...] Standards of Medical Care in Diabetes 2016, [place] [employer]. Diabetes Care. 2016.39(Suppl 1). Performed By: #### 2 432-, ####[facility] LWCLIA [id number] [place] [id number] [place] Potassium [Moles/Vol] 4.2 mmol/L Normal 3.7-5.1 [facility] Comment on above: Order Comment: Speci men Type: BLOOD SPECIMENOrdering Facility: [facility] Address: [address] [place] [address] Performed By: #### 2 4320-12, ####[facility] LWCLIA [id number] [place] [id number] [place] Sodium [Moles/Vol] 140 mmol/L Normal 136-144 [facility] Comment on above: Order Comment: Speci men Type: BLOOD SPECIMENOrdering Facility: [facility] Address: [address] [place] [address] Performed By: #### 2 4320-12, ####[facility] LWCLIA [id number] [place] [address] [place] Urea nitrogen [Mass/Vol] 11 mg/dL Normal 7-21 [facility] Comment on above: Order Comment: Speci men Type: BLOOD SPECIMENOrdering Facility: [facility] Address: [address] [place] [address] Performed By: #### 2 4321-2, 34361-7 ####[facility] LWCLIA [id number] [place] [address] [place] [facility] CBC W Auto Differential pane l (Bld)on 01-20-2025 Basophils (Bld) [#/Vol] 0.05 10*3/uL Normal <0.11 [facility] Comment on above: Order Comment: Speci men Type: BLOOD SPECIMENOrdering Facility: [facility] Address: [address] [place] [address] Performed By: #### 5 7021-8 ####[facility] LWCLIA [id number] [place] [address] [place] Basophils/100 WBC (Bld) 0.5 % Normal [facility] Comment on above: Order Comment: Speci men Type: BLOOD SPECIMENOrdering Facility: [facility] Address: [address] [place] [address] Performed By: #### 5 7021-8 ####[facility] LWCLIA [id number] [place] [address] [place] Differential cell count method Nom (Bld) Auto Normal [facility] Comment on above: Order Comment: Speci men Type: BLOOD SPECIMENOrdering Facility: [facility] Address: [address] [place] [address] Performed By: #### 5 7021-8 ####[facility] LWCLIA [id number] [place] [address] [place] Eosinophils (Bld) [#/Vol] 0.17 10*3/uL Normal <0.46 [facility] Comment on above: Order Comment: Speci men Type: BLOOD SPECIMENOrdering Facility: [facility] Address: [address] [place] [address] Performed By: #### 5 7021-8 ####[facility] LWCLIA [id number] [place] [id number] [place] Eosinophils/100 WBC (Bld) 1.9 % Normal [facility] Comment on above: Order Comment: Speci men Type: BLOOD SPECIMENOrdering Facility: [facility] Address: [address] [place] [address] Performed By: #### 5 7021-8 ####[facility] LWCLIA [id number] [place] [id number] [place] Erythrocyte distribution width (RBC) [Ratio] 13.5 % Normal 11.5-15.0 [facility] Comment on above: Order Comment: Speci men Type: BLOOD SPECIMENOrdering Facility: [facility] Address: [address] [place] [address] Performed By: #### 5 7021-8 ####[facility] LWCLIA [id number] [address] [place] Hematocrit (Bld) [Volume fraction] 39.7 % Normal 36.0-46.0 [facility] Comment on above: Order Comment: Speci men Type: BLOOD SPECIMENOrdering Facility: [facility] Address: [address] [place] [address] Performed By: #### 5 7021-8 ####[facility] LWCLIA [id number] [place] [id number] [place] Hemoglobin (Bld) [Mass/Vol] 13.0 g/dL Normal 11.5-15.5 [facility] Comment on above: Order Comment: Speci men Type: BLOOD SPECIMENOrdering Facility: [facility] Address: [address] [place] [address] Performed By: #### 5 7021-8 ####[facility] LWCLIA [id number] [place] [address] [place] Immature granulocytes (Bld) [#/Vol] 0.20 10*3/uL High <0.10 [facility] Comment on above: Order Comment: Speci men Type: BLOOD SPECIMENOrdering Facility: [facility] Address: [address] [place] [address] Performed By: #### 5 7021-8 ####[facility] LWCLIA [id number] [place] [address] [place] [facility] Immature granulocytes/100 WBC (Bld) 2.2 % Normal [facility] Comment on above: Order Comment: Speci men Type: BLOOD SPECIMENOrdering Facility: [facility] Address: [address] [place] [address] Performed By: #### 5 7021-8 ####[facility] LWIA [id number] [place] [address] [place] Lymphocytes (Bld) [#/Vol] 2.68 10*3/uL Normal 1.00-4.00 [facility] Comment on above: Order Comment: Speci men Type: BLOOD SPECIMENOrdering Facility: [facility] Address: [address] [place] [address] Performed By: #### 5 7021-8 ####[facility] LWIA [id number] [address] [place] [facility] Lymphocytes/100 WBC (Bld) 29.2 % Normal [facility] Comment on above: Order Comment: Speci men Type: BLOOD SPECIMENOrdering Facility: [facility] Address: [address] [place] [address] Performed By: #### 5 7021-8 ####[facility] LWCLIA [id number] [place] [id number] [place] MCH (RBC) [Entitic mass] 29.1 pg Normal 26.0-34.0 [facility] Comment on above: Order Comment: Speci men Type: BLOOD SPECIMENOrdering Facility: [facility] Address: [address] [place] [address] Performed By: #### 5 7021-8 ####[facility] LWCLIA [id number] [place] [address] [place] MCHC (RBC) [Mass/Vol] 32.7 g/dL Normal 30.5-36.0 [facility] Comment on above: Order Comment: Speci men Type: BLOOD SPECIMENOrdering Facility: [facility] Address: [address] [place] [address] Performed By: #### 5 7021-8 ####[facility] LWCLIA [id number] [place] [id number] [place] MCV (RBC) [Entitic vol] 88.8 fL Normal 80.0-100.0 [facility] Comment on above: Order Comment: Speci men Type: BLOOD SPECIMENOrdering Facility: [facility] Address: [address] [place] [address] Performed By: #### 5 7021-8 ####[facility] LWCLIA [id number] [place] [address] [place] Monocytes (Bld) [#/Vol] 0.52 10*3/uL Normal <0.87 [facility] Comment on above: Order Comment: Speci men Type: BLOOD SPECIMENOrdering Facility: [facility] Address: [address] [place] [address] Performed By: #### 5 7021-8 ####[facility] LWCLIA [id number] [place] [id number] [place] Monocytes/100 WBC (Bld) 5.7 % Normal [facility] Comment on above: Order Comment: Speci men Type: BLOOD SPECIMENOrdering Facility: [facility] Address: [address] [place] [address] Performed By: #### 5 7021-8 ####[facility] LWCLIA [id number] [place] [address] [place] Neutrophils (Bld) [#/Vol] 5.55 10*3/uL Normal 1.45-7.50 [facility] Comment on above: Order Comment: Speci men Type: BLOOD SPECIMENOrdering Facility: [facility] Address: [address] [place] [address] Performed By: #### 5 7021-8 ####[facility] LWCLIA [id number] [place] [id number] [place] Neutrophils/100 WBC (Bld) 60.5 % Normal [facility] Comment on above: Order Comment: Speci men Type: BLOOD SPECIMENOrdering Facility: [facility] Address: [address] [place] [address] Performed By: #### 5 7021-8 ####[facility] LWCLIA [id number] [place] [address] [place] Nucleated RBC (Bld) [#/Vol] 10*3/uL Normal <0.01 [facility] Comment on above: Order Comment: Speci men Type: BLOOD SPECIMENOrdering Facility: [facility] Address: [address] [place] [address] Performed By: #### 5 7021-8 ####[facility] LWIA [id number] [place] [address] [place] Nucleated RBC/100 WBC (Bld) [Ratio] 0.0 /100 WBC Normal [facility] Comment on above: Order Comment: Speci men Type: BLOOD SPECIMENOrdering Facility: [facility] Address: [address] [place] [address] Performed By: #### 5 7021-8 ####[facility] LWCLIA [id number] [place] [id number] [place] Platelet mean volume (Bld) [Entitic vol] 9.8 fL Normal 9.0-12.7 [facility] Comment on above: Order Comment: Speci men Type: BLOOD SPECIMENOrdering Facility: [facility] Address: [address] [place] [address] Performed By: #### 5 7021-8 ####[facility] LWCLIA [id number] [place] [id number] [place] Platelets (Bld) [#/Vol] 289 10*3/uL Normal 150-400 [facility] Comment on above: Order Comment: Speci men Type: BLOOD SPECIMENOrdering Facility: [facility] Address: [address] [place] [address] Performed By: #### 5 7021-8 ####[facility] LWCLIA [id number] [place] [id number] [place] RBC (Bld) [#/Vol] 4.47 10*6/uL Normal 3.90-5.20 [facility] Comment on above: Order Comment: Speci men Type: BLOOD SPECIMENOrdering Facility: [facility] Address: [address] [place] [address] Performed By: #### 5 7021-8 ####[facility] LWCLIA [id number] [place] [id number] [facility] [place] WBC (Bld) [#/Vol] 9.17 10*3/uL Normal 3.70-11.00 [facility] Comment on above: Order Comment: Speci men Type: BLOOD SPECIMENOrdering Facility: [facility] Address: [address] [place] [address] Performed By: #### 5 7021-8 ####[facility] LWCLIA [id number] [place] [id number] [facility] ED NOTEon 01-20-2025 ED NOTE Normal [facility] ED NOTE HNO ID: [id number] Author: RICHELLE RANGEL RN Service: Nursing Author Type: Registered Nurse Type: ED Notes Filed: 01/20/2025 14:46 Note Text: Patient able to tolerate oral challenge. IV fluids almost done. Normal [facility] ED NOTE HNO ID: [id number] Author: RICHELLE RANGEL RN Service: Nursing Author Type: Registered Nurse Type: ED Notes Filed: 01/20/2025 14:19 Note Text: Oral challenge for patient. Apple juice and pretzels provided. Normal [facility] ED NOTE Normal [facility] ED NOTE Normal [facility] ED PROV NOTEon 01-20-2025 ED PROV NOTE Normal [facility] Magnesium SerPl-mCncon 01-20 Magnesium [Mass/Vol] 2.1 mg/dL Normal 1.7-2.3 [facility] Comment on above: Order Comment: Speci men Type: BLOOD SPECIMENOrdering Facility: [facility] Address: [address] [place] [address] Performed By: #### 2 4321-2, 94779-4 ####[facility] LWCLIA [id number] [place] [address] [place] ALLIED HEALTHon 01-13-2025 ALLIED HEALTH Normal [facility] Basic metabolic 2000 panelon 01-13-2025 Anion gap [Moles/Vol] 14 mmol/L Normal 8-15 [facility] Comment on above: Order Comment: Speci men Type: BLOOD SPECIMENOrdering Facility: [facility] Address: [address] [place] [address] Performed By: #### 2 4321-2 ####[facility] LABCLIA [id number] [place] [address] [place] Calcium [Mass/Vol] 9.2 mg/dL Normal 8.5-10.2 [facility] Comment on above: Order Comment: Speci men Type: BLOOD SPECIMENOrdering Facility: [facility] Address: [address] [place] [address] Performed By: #### 2 4321-2 ####[facility] LABCLIA [id number] [place] [id number] [place] Chloride [Moles/Vol] 106 mmol/L Normal 98-107 [facility] Comment on above: Order Comment: Speci men Type: BLOOD SPECIMENOrdering Facility: [facility] Address: [address] [place] [address] Performed By: #### 2 4321-2 ####[facility] LABCLIA [id number] [place] [address] [place] CO2 [Moles/Vol] 21 mmol/L Low 22-30 [facility] Comment on above: Order Comment: Speci men Type: BLOOD SPECIMENOrdering Facility: [facility] Address: [address] [place] [address] Performed By: #### 2 4321-2 ####[facility] LABCLIA [id number] [place] [address] [place] Creatinine [Mass/Vol] 0.71 mg/dL Normal 0.58-0.96 [facility] Comment on above: Order Comment: Speci men Type: BLOOD SPECIMENOrdering Facility: [facility] Address: [address] [place] [address] Performed By: #### 2 4321-2 ####[facility] LABIA [id number] [address] STATES OF [facility] Creatinine and Glomerular filtration rate.predicted panel (S/P/Bld) 115 mL/min/1.73m??? Normal >=60 [facility] Comment on above: Order Comment: Speci men Type: BLOOD SPECIMENOrdering Facility: [facility] Address: [address] [place] [address] Result Comment: Anne-Marie mated Glomerular Filtration Rate [...] actual GFR. Performed By: #### 2 4321-2 ####[facility] LABCLIA [id number] [place] [address] [place] Glucose [Mass/Vol] 98 mg/dL Normal 74-99 [facility] Comment on above: Order Comment: Speci men Type: BLOOD SPECIMENOrdering Facility: [facility] Address: [address], [place] [address] Result Comment: The [place] [employer] (ADA) provides guidance for cutoff [...] Standards of Medical Care in Diabetes 2016, [employer]. Diabetes Care. 2016.39(Suppl 1). Performed By: #### 2 4321-2 ####[facility] LABCLIA [id number] [place] [address] [place] Potassium [Moles/Vol] 4.6 mmol/L Normal 3.7-5.1 [facility] Comment on above: Order Comment: Speci men Type: BLOOD SPECIMENOrdering Facility: [facility] Address: [address] [place] [address] Performed By: #### 2 432-2 ####[facility] LABCLIA [id number] [place] [address] [place] Sodium [Moles/Vol] 141 mmol/L Normal 136-144 [facility] Comment on above: Order Comment: Speci men Type: BLOOD SPECIMENOrdering Facility: [facility] Address: [address] [place] [address] Performed By: #### 2 4321-2 ####[facility] LABCLIA [id number] [place] [address] [place] Urea nitrogen [Mass/Vol] 19 mg/dL Normal 7-21 [facility] Comment on above: Order Comment: Speci men Type: BLOOD SPECIMENOrdering Facility: [facility] Address: [address] [place] [address] Performed By: #### 2 4321-2 ####[facility] LABCLIA [id number] [address] [address] [place] CNDSon 01-13-2025 CNDS Normal [facility] CONSULT PROGon 01-13-2025 CONSULT PROG Normal [facility] CONSULT PROG Normal [facility] Basic metabolic 2000 panelon 01-12-2025 Anion gap [Moles/Vol] 10 mmol/L Normal 8-15 [facility] Comment on above: Order Comment: Speci men Type: BLOOD SPECIMENOrdering Facility: [facility] Address: [address] [place], [place] [address] Performed By: #### 2 4321-2 ####[facility] LABCLIA [id number] [place] [address] [place] Calcium [Mass/Vol] 9.1 mg/dL Normal 8.5-10.2 [facility] Comment on above: Order Comment: Speci men Type: BLOOD SPECIMENOrdering Facility: [facility] Address: [address] [place], [place] [address] Performed By: #### 2 4321-2 ####[facility] LABCLIA [id number] [place] [address] [place] Chloride [Moles/Vol] 106 mmol/L Normal 98-107 [facility] Comment on above: Order Comment: Speci men Type: BLOOD SPECIMENOrdering Facility: [facility] Address: [address] [place], [place] [address] Performed By: #### 2 4321-2 ####[facility] LABCLIA [id number] [place] [id number] [place] CO2 [Moles/Vol] 24 mmol/L Normal 22-30 [facility] Comment on above: Order Comment: Speci men Type: BLOOD SPECIMENOrdering Facility: [facility] Address: [address] [place] [address] Performed By: #### 2 4321-2 ####[facility] LABCLIA [id number] [place] [address] [place] Creatinine [Mass/Vol] 0.76 mg/dL Normal 0.58-0.96 [facility] Comment on above: Order Comment: Mookie roberts Type: BLOOD SPECIMENOrdering Facility: [facility] Address: [address] [place] [address] Performed By: #### 2 4321-2 ####[facility] [id number] [place] [address] [place] Creatinine and Glomerular filtration rate.predicted panel (S/P/Bld) 106 mL/min/1.73m??? Normal >=60 [facility] Comment on above: Order Comment: Mookie roberts Type: BLOOD SPECIMENOrdering Facility: [facility] Address: [address] [place] [address] Result Comment: Anne-Marie mated Glomerular Filtration Rate [...] actual GFR. Performed By: #### 2 4321-2 ####[facility] LABIA [id number] [place] [address] [place] Glucose [Mass/Vol] 91 mg/dL Normal 74-99 [facility] Comment on above: Order Comment: Mookie roberts Type: BLOOD SPECIMENOrdering Facility: [facility] Address: [address] [place] [address] Result Comment: The [place] Diabetes [employer] (ADA) provides guidance for cutoff [...] Standards of Medical Care in Diabetes 2016, [place] [employer]. Diabetes Care. 2016.39(Suppl 1). Performed By: #### 2 4321-2 ####[facility] LABCLIA [id number] [place] [address] [place] Potassium [Moles/Vol] 4.1 mmol/L Normal 3.7-5.1 [facility] Comment on above: Order Comment: Speci men Type: BLOOD SPECIMENOrdering Facility: [facility] Address: [address] [place] [address] Performed By: #### 2 4321-2 ####[facility] LABIA [id number] [place] [address] [place] Sodium [Moles/Vol] 140 mmol/L Normal 136-144 [facility] Comment on above: Order Comment: Speci men Type: BLOOD SPECIMENOrdering Facility: [facility] Address: [address] [place] [address] Performed By: #### 2 4321-2 ####[facility] LABIA [id number] [place] [address] [place] Urea nitrogen [Mass/Vol] 20 mg/dL Normal 7-21 [facility] Comment on above: Order Comment: Speci men Type: BLOOD SPECIMENOrdering Facility: [facility] Address: [address] [place] [address] Performed By: #### 2 4321-2 ####[facility] LABIA [id number] [place] [id number] [place] CONSULT PROGon 01-12-2025 CONSULT PROG Normal [facility] Basic metabolic 2000 panelon 01-11-2025 Anion gap [Moles/Vol] 3 mmol/L Low 8-15 [facility] Comment on above: Order Comment: Speci men Type: BLOOD SPECIMENOrdering Facility: [facility] Address: [address] [place] [address] Result Comment: Siddharth ected result: Previously reported as 8 mmol/L on 01/11/2025 at 9:38 AM EST. Performed By: #### 2 4321-2 ####[facility] LABCLIA [id number] [place] [address] [place] Calcium [Mass/Vol] 8.4 mg/dL Low 8.5-10.2 [facility] Comment on above: Order Comment: Speci men Type: BLOOD SPECIMENOrdering Facility: [facility] Address: [address] [place] [address] Performed By: #### 2 4321-2 ####[facility] LABCLIA [id number] [place] [address] [place] Chloride [Moles/Vol] 109 mmol/L High 98-107 [facility] Comment on above: Order Comment: Speci men Type: BLOOD SPECIMENOrdering Facility: [facility] Address: [address] [place] [address] Performed By: #### 2 4321-2 ####[facility] LABCLIA [id number] [place] [address] [place] CO2 [Moles/Vol] 28 mmol/L Normal 22-30 [facility] Comment on above: Order Comment: Speci men Type: BLOOD SPECIMENOrdering Facility: [facility] Address: [address] [place] [address] Performed By: #### 2 4321-2 ####[facility] LABCLIA [id number] [place] [address] [place] Creatinine [Mass/Vol] 0.90 mg/dL Normal 0.58-0.96 [facility] Comment on above: Order Comment: Speci men Type: BLOOD SPECIMENOrdering Facility: [facility] Address: [address] [place] [address] Performed By: #### 2 4321-2 ####[facility] LABCLIA [id number] [place] [address] [place] Creatinine and Glomerular filtration rate.predicted panel (S/P/Bld) 86 mL/min/1.73m??? Normal >=60 [facility] Comment on above: Order Comment: Mookie roberts Type: BLOOD SPECIMENOrdering Facility: [facility] Address: [address] [place] [address] Result Comment: Anne-Marie mated Glomerular Filtration Rate [...] actual GFR. Performed By: #### 2 4321-2 ####[facility] LABCLIA [id number] [place] [address] [place] Glucose [Mass/Vol] 80 mg/dL Normal 74-99 [facility] Comment on above: Order Comment: Mookie roberts Type: BLOOD SPECIMENOrdering Facility: [facility] Address: [address] [place] [address] Result Comment: The [place] Diabetes [employer] (ADA) provides guidance for cutoff [...] Standards of Medical Care in Diabetes 2016, [place] [employer]. Diabetes Care. 2016.39(Suppl 1). Performed By: #### 2 4321-2 ####[facility] LABCLIA [id number] [place] [address] [place] Potassium [Moles/Vol] 4.5 mmol/L Normal 3.7-5.1 [facility] Comment on above: Order Comment: Speci men Type: BLOOD SPECIMENOrdering Facility: [facility] Address: [address] [place] [address] Performed By: #### 2 4321-2 ####[facility] LABIA [id number] [place] [address] [place] Sodium [Moles/Vol] 140 mmol/L Normal 136-144 [facility] Comment on above: Order Comment: Speci men Type: BLOOD SPECIMENOrdering Facility: [facility] Address: [address] [place] [address] Result Comment: Siddharth ected result: Previously reported as 145 mmol/L on 01/11/2025 at 9:38 AM EST. Performed By: #### 2 4321-2 ####[facility] LABIA [id number] [place] [address] [place] Urea nitrogen [Mass/Vol] 21 mg/dL Normal 7-21 [facility] Comment on above: Order Comment: Speci men Type: BLOOD SPECIMENOrdering Facility: [facility] Address: [address] [place] [address] Performed By: #### 2 4321-2 ####[facility] [id number] [place] [address] [place] CASE MANAGEMon 01-11-2025 CASE MANAGEM Normal [facility] CASE MGT INIT ASSESon 2024 CASE MGT INIT ASSES Normal [facility] CBC panel Auto (Bld)on 01-11 Erythrocyte distribution width (RBC) [Ratio] 14.0 % Normal 11.5-15.0 [facility] Comment on above: Order Comment: Speci men Type: BLOOD SPECIMENOrdering Facility: [facility] Address: [address] [place] [address] Performed By: #### 5 8410-2 ####[facility] LABCLIA [id number] [place] [address] [place] Hematocrit (Bld) [Volume fraction] 40.7 % Normal 36.0-46.0 [facility] Comment on above: Order Comment: Speci men Type: BLOOD SPECIMENOrdering Facility: [facility] Address: [address] [place] [address] Performed By: #### 5 8410-2 ####[facility] LABIA [id number] [place] [address] [place] Hemoglobin (Bld) [Mass/Vol] 13.2 g/dL Normal 11.5-15.5 [facility] Comment on above: Order Comment: Speci men Type: BLOOD SPECIMENOrdering Facility: [facility] Address: [address] [place] [address] Performed By: #### 5 8410-2 ####[facility] LABIA [id number] [place] [address] [place] MCH (RBC) [Entitic mass] 29.2 pg Normal 26.0-34.0 [facility] Comment on above: Order Comment: Speci men Type: BLOOD SPECIMENOrdering Facility: [facility] Address: [address] [place] [address] Performed By: #### 5 8410-2 ####[facility] LABIA [id number] [place] [address] [place] MCHC (RBC) [Mass/Vol] 32.4 g/dL Normal 30.5-36.0 [facility] Comment on above: Order Comment: Speci men Type: BLOOD SPECIMENOrdering Facility: [facility] Address: [address] [place] [address] Performed By: #### 5 8410-2 ####[facility] LABIA [id number] [place] [address] [place] MCV (RBC) [Entitic vol] 90.0 fL Normal 80.0-100.0 [facility] Comment on above: Order Comment: Speci men Type: BLOOD SPECIMENOrdering Facility: [facility] Address: [address] [place] [address] Performed By: #### 5 8410-2 ####[facility] LABCLIA [id number] [place] [address] [place] Nucleated RBC (Bld) [#/Vol] 10*3/uL Normal <0.01 [facility] Comment on above: Order Comment: Speci men Type: BLOOD SPECIMENOrdering Facility: [facility] Address: [address] [place] [address] Performed By: #### 5 8410-2 ####[facility] LABCLIA [id number] [place] [address] [place] Platelet mean volume (Bld) [Entitic vol] 9.6 fL Normal 9.0-12.7 [facility] Comment on above: Order Comment: Speci men Type: BLOOD SPECIMENOrdering Facility: [facility] Address: [address] [place] [address] Performed By: #### 5 8410-2 ####[facility] LABIA [id number] [place] [address] [place] Platelets (Bld) [#/Vol] 281 10*3/uL Normal 150-400 [facility] Comment on above: Order Comment: Speci men Type: BLOOD SPECIMENOrdering Facility: [facility] Address: [address] [place] [address] Performed By: #### 5 8410-2 ####[facility] LABCLIA [id number] [place] [address] [place] RBC (Bld) [#/Vol] 4.52 10*6/uL Normal 3.90-5.20 [facility] Comment on above: Order Comment: Speci men Type: BLOOD SPECIMENOrdering Facility: [facility] Address: [address] [place] [address] Performed By: #### 5 8410-2 ####[facility] LABCLIA [id number] [place] [address] [place] WBC (Bld) [#/Vol] 9.09 10*3/uL Normal 3.70-11.00 [facility] Comment on above: Order Comment: Speci men Type: BLOOD SPECIMENOrdering Facility: [facility] Address: [address] [place] [address] Performed By: #### 5 8410-2 ####[facility] LABCLIA [id number] [place] [address] [place] CONSULT PROGon 01-11-2025 CONSULT PROG Normal [facility] NURSING PROGon 01-11-2025 NURSING PROG Normal [facility] PT EDon 01-11-2025 PT ED Normal [facility] Basic metabolic 2000 panelon 01-10-2025 Anion gap [Moles/Vol] 11 mmol/L Normal 8-15 [facility] Comment on above: Order Comment: Speci men Type: BLOOD SPECIMENOrdering Facility: [facility] Address: [address] [place] [address] Performed By: #### 2 4321-2 ####[facility] LABCLIA [id number] [place] [address] [place] Calcium [Mass/Vol] 9.3 mg/dL Normal 8.5-10.2 [facility] Comment on above: Order Comment: Speci men Type: BLOOD SPECIMENOrdering Facility: [facility] Address: [address] [place] [address] Performed By: #### 2 4321-2 ####[facility] LABCLIA [id number] [place] [address] [place] Chloride [Moles/Vol] 102 mmol/L Normal 98-107 [facility] Comment on above: Order Comment: Speci men Type: BLOOD SPECIMENOrdering Facility: [facility] Address: [address] [place] [address] Performed By: #### 2 4321-2 ####[facility] LABCLIA [id number] [place] [id number] [place] CO2 [Moles/Vol] 23 mmol/L Normal 22-30 [facility] Comment on above: Order Comment: Speci men Type: BLOOD SPECIMENOrdering Facility: [facility] Address: [address] [place] [address] Performed By: #### 2 4321-2 ####[facility] LABCLIA [id number] [address] STATES OF [facility] Creatinine [Mass/Vol] 0.59 mg/dL Normal 0.58-0.96 [facility] Comment on above: Order Comment: Speci men Type: BLOOD SPECIMENOrdering Facility: [facility] Address: [address] [place] [address] Performed By: #### 2 4321-2 ####[facility] LABCLIA [id number] [address] Creatinine and Glomerular filtration rate.predicted panel (S/P/Bld) 121 mL/min/1.73m??? Normal >=60 [facility] Comment on above: Order Comment: Speci men Type: BLOOD SPECIMENOrdering Facility: [facility] Address: [address] [place] [address] Result Comment: Anne-Marie mated Glomerular Filtration Rate [...] actual GFR. Performed By: #### 2 4321-2 ####[facility] LABCLIA [id number] [place] [address] [place] Glucose [Mass/Vol] 143 mg/dL High 74-99 [facility] Comment on above: Order Comment: Speci men Type: BLOOD SPECIMENOrdering Facility: [facility] Address: [address] [place] [address] Result Comment: The [place] [employer] (ADA) provides guidance for cutoff [...] Standards of Medical Care in Diabetes 2016, [employer]. Diabetes Care. 2016.39(Suppl 1). Performed By: #### 2 4321-2 ####[facility] LABCLIA [id number] [place] [address] [place] Potassium [Moles/Vol] 4.4 mmol/L Normal 3.7-5.1 [facility] Comment on above: Order Comment: Speci men Type: BLOOD SPECIMENOrdering Facility: [facility] Address: [address] [place] [address] Performed By: #### 2 4321-2 ####[facility] LABIA [id number] [place] [address] [place] Sodium [Moles/Vol] 136 mmol/L Normal 136-144 [facility] Comment on above: Order Comment: Speci men Type: BLOOD SPECIMENOrdering Facility: [facility] Address: [address] [place] [address] Performed By: #### 2 4321-2 ####[facility] LABIA [id number] [place] [address] [place] Urea nitrogen [Mass/Vol] 11 mg/dL Normal 7-21 [facility] Comment on above: Order Comment: Speci men Type: BLOOD SPECIMENOrdering Facility: [facility] Address: [address] [place] [address] Performed By: #### 2 4321-2 ####[facility] LABCLIA [id number] [place] [address] [place] CBC panel Auto (Bld)on 01-10 Erythrocyte distribution width (RBC) [Ratio] 13.6 % Normal 11.5-15.0 [facility] Comment on above: Order Comment: Speci men Type: BLOOD SPECIMENOrdering Facility: [facility] Address: [address] [place] [address] Performed By: #### 5 8410-2 ####[facility] LABCLIA [id number] [place] [address] [place] Hematocrit (Bld) [Volume fraction] 38.9 % Normal 36.0-46.0 [facility] Comment on above: Order Comment: Speci men Type: BLOOD SPECIMENOrdering Facility: [facility] Address: [address] [place] [address] Performed By: #### 5 8410-2 ####[facility] LABCLIA [id number] [place] [address] [place] Hemoglobin (Bld) [Mass/Vol] 13.1 g/dL Normal 11.5-15.5 [facility] Comment on above: Order Comment: Speci men Type: BLOOD SPECIMENOrdering Facility: [facility] Address: [address] [place] [address] Performed By: #### 5 8410-2 ####[facility] LABCLIA [id number] [place] [address] [place] MCH (RBC) [Entitic mass] 29.0 pg Normal 26.0-34.0 [facility] Comment on above: Order Comment: Speci men Type: BLOOD SPECIMENOrdering Facility: [facility] Address: [address] [place] [address] Performed By: #### 5 8410-2 ####[facility] LABCLIA [id number] [place] [address] [place] MCHC (RBC) [Mass/Vol] 33.7 g/dL Normal 30.5-36.0 [facility] Comment on above: Order Comment: Speci men Type: BLOOD SPECIMENOrdering Facility: [facility] Address: [address] [place] [address] Performed By: #### 5 8410-2 ####[facility] LABIA [id number] [place] [address] [place] MCV (RBC) [Entitic vol] 86.1 fL Normal 80.0-100.0 [facility] Comment on above: Order Comment: Speci men Type: BLOOD SPECIMENOrdering Facility: [facility] Address: [address] [place] [address] Performed By: #### 5 8410-2 ####[facility] LABIA [id number] [place] [address] [place] Nucleated RBC (Bld) [#/Vol] 10*3/uL Normal <0.01 [facility] Comment on above: Order Comment: Speci men Type: BLOOD SPECIMENOrdering Facility: [facility] Address: [address] [place] [address] Performed By: #### 5 8410-2 ####[facility] LABIA [id number] [place] [address] [place] Platelet mean volume (Bld) [Entitic vol] 9.6 fL Normal 9.0-12.7 [facility] Comment on above: Order Comment: Speci men Type: BLOOD SPECIMENOrdering Facility: [facility] Address: [address] [place] [address] Performed By: #### 5 8410-2 ####[facility] LABIA [id number] [place] [address] [place] Platelets (Bld) [#/Vol] 306 10*3/uL Normal 150-400 [facility] Comment on above: Order Comment: Speci men Type: BLOOD SPECIMENOrdering Facility: [facility] Address: [address] [place] [address] Performed By: #### 5 8410-2 ####[facility] LABIA [id number] [place] [address] [place] RBC (Bld) [#/Vol] 4.52 10*6/uL Normal 3.90-5.20 [facility] Comment on above: Order Comment: Speci men Type: BLOOD SPECIMENOrdering Facility: [facility] Address: [address] [place] [address] Performed By: #### 5 8410-2 ####[facility] [id number] [place] [address] [place] WBC (Bld) [#/Vol] 10.68 10*3/uL Normal 3.70-11.00 [facility] Comment on above: Order Comment: Speci men Type: BLOOD SPECIMENOrdering Facility: [facility] Address: [address] [place] [address] Performed By: #### 5 8410-2 ####[facility] [id number] [place] [id number] [place] CONSULTon 01-10-2025 CONSULT Normal [facility] CONSULT Normal [facility] CONSULT PROGon 01-10-2025 CONSULT PROG Normal [facility] HISTORY PHYSICALon 5 HISTORY PHYSICAL Normal [facility] Bacteria Bld Culton 01-09-20 25 Bacteria identified Cx Nom (Bld) CULTURE, BLOOD: No growth 5 days Normal [facility] Comment on above: Performed By: #### 6 00-7 ####[facility] LABCLIA [id number] [address] [address] [place] Bacteria identified Cx Nom (Bld) CULTURE, BLOOD: No growth 5 days Normal [facility] Comment on above: Performed By: #### 6 00-7 ####[facility] LABCLIA [id number] [place] [id number] [place] Basic metabolic 2000 panelon 01-09-2025 Anion gap [Moles/Vol] 12 mmol/L Normal 8-15 [facility] Comment on above: Order Comment: Speci men Type: BLOOD SPECIMENOrdering Facility: [facility] Address: [address] [place] [address] Performed By: #### 2 4320-12, 1988-03 ####[facility] LABCLIA [id number] [place] [address] [place] Calcium [Mass/Vol] 8.9 mg/dL Normal 8.5-10.2 [facility] Comment on above: Order Comment: Speci men Type: BLOOD SPECIMENOrdering Facility: [facility] Address: [address] [place] [address] Performed By: #### 2 4320-12, 1988-03 ####[facility] LABCLIA [id number] [place] [address] [place] Chloride [Moles/Vol] 105 mmol/L Normal 98-107 [facility] Comment on above: Order Comment: Speci men Type: BLOOD SPECIMENOrdering Facility: [facility] Address: [address] [place], [place] [address] Performed By: #### 2 4320-12, 1988-03 ####[facility] LABCLIA [id number] [place] [id number] [place] CO2 [Moles/Vol] 23 mmol/L Normal 22-30 [facility] Comment on above: Order Comment: Speci men Type: BLOOD SPECIMENOrdering Facility: [facility] Address: [address] [place] [id number] Performed By: #### 2 4320-12, 1988-03 ####[facility] LABIA [id number] [address] [address] [place] Creatinine [Mass/Vol] 0.78 mg/dL Normal 0.58-0.96 [facility] Comment on above: Order Comment: Speci men Type: BLOOD SPECIMENOrdering Facility: [facility] Address: [address] [place] [address] Performed By: #### 2 4320-12, 1988-03 ####[facility] LABIA [id number] [place] [address] [place] Creatinine and Glomerular filtration rate.predicted panel (S/P/Bld) 102 mL/min/1.73m??? Normal >=60 [facility] Comment on above: Order Comment: Darvinmanisha men Type: BLOOD SPECIMENOrdering Facility: [facility] Address: [address] [place] [address] Result Comment: Anne-Marie mated Glomerular Filtration Rate [...] GFR. Performed By: #### 2 4320-12, 1988-03 ####[facility] LABIA [id number] [place] [id number] [place] Glucose [Mass/Vol] 104 mg/dL High 74-99 [facility] Comment on above: Order Comment: Mookie roberts Type: BLOOD SPECIMENOrdering Facility: [facility] Address: [address] [place] [address] Result Comment: The [place] [employer] (ADA) provides guidance for cutoff [...] Standards of Medical Care in Diabetes 2016, [place] [employer]. Diabetes Care. 2016.39(Suppl 1). Performed By: #### 2 4320-12, 1988-03 ####[facility] LABCLIA [id number] [place] [address] [place] Potassium [Moles/Vol] 4.5 mmol/L Normal 3.7-5.1 [facility] Comment on above: Order Comment: Speci men Type: BLOOD SPECIMENOrdering Facility: [facility] Address: [address] [place] [address] Performed By: #### 2 4320-12, 1988-03 ####[facility] LABCLIA [id number] [place] [address] [place] Sodium [Moles/Vol] 140 mmol/L Normal 136-144 [facility] Comment on above: Order Comment: Speci men Type: BLOOD SPECIMENOrdering Facility: [facility] Address: [address] [place] [address] Performed By: #### 2 4320-12, 1988-03 ####[facility] LABCLIA [id number] [facility] [place] [id number] [place] Urea nitrogen [Mass/Vol] 17 mg/dL Normal 7-21 [facility] Comment on above: Order Comment: Speci men Type: BLOOD SPECIMENOrdering Facility: [facility] Address: [address] [place] [address] Performed By: #### 2 4320-12, 1988-03 ####[facility] LABCLIA [id number] [place] [address] [place] CBC W Auto Differential pane l (Bld)on 01-09-2025 Basophils (Bld) [#/Vol] 0.08 10*3/uL Normal <0.11 [facility] Comment on above: Order Comment: Speci men Type: BLOOD SPECIMENOrdering Facility: [facility] Address: [address] [place] [address] Performed By: #### 5 7021-8, 7-7 ####[facility] LABCLIA [id number] [place] [address] [place] Basophils/100 WBC (Bld) 0.8 % Normal [facility] Comment on above: Order Comment: Speci men Type: BLOOD SPECIMENOrdering Facility: [facility] Address: [address] [place] [address] Performed By: #### 5 7021-8, 4536-7 ####[facility] LABCLIA [id number] [place] [address] [place] Differential cell count method Nom (Bld) Auto Normal [facility] Comment on above: Order Comment: Speci men Type: BLOOD SPECIMENOrdering Facility: [facility] Address: [address] [place] [address] Performed By: #### 5 7021-8, 4536-7 ####[facility] LABCLIA [id number] [place] [address] [place] Eosinophils (Bld) [#/Vol] 0.13 10*3/uL Normal <0.46 [facility] Comment on above: Order Comment: Speci men Type: BLOOD SPECIMENOrdering Facility: [facility] Address: [address] [place] [address] Performed By: #### 5 7021-8, 7-7 ####[facility] LABCLIA [id number] [place] [address] [place] Eosinophils/100 WBC (Bld) 1.2 % Normal [facility] Comment on above: Order Comment: Speci men Type: BLOOD SPECIMENOrdering Facility: [facility] Address: [address] [place] [address] Performed By: #### 5 7021-8, 7-7 ####[facility] LABCLIA [id number] [place] [address] [place] Erythrocyte distribution width (RBC) [Ratio] 13.6 % Normal 11.5-15.0 [facility] Comment on above: Order Comment: Speci men Type: BLOOD SPECIMENOrdering Facility: [facility] Address: [address] [place] [address] Performed By: #### 5 7021-8, 4537-7 ####[facility] LABCLIA [id number] [place] [address] [place] Hematocrit (Bld) [Volume fraction] 41.6 % Normal 36.0-46.0 [facility] Comment on above: Order Comment: Speci men Type: BLOOD SPECIMENOrdering Facility: [facility] Address: [address] [place] [address] Performed By: #### 5 7021-8, 7-7 ####[facility] LABIA [id number] [place] [address] [place] Hemoglobin (Bld) [Mass/Vol] 13.9 g/dL Normal 11.5-15.5 [facility] Comment on above: Order Comment: Speci men Type: BLOOD SPECIMENOrdering Facility: [facility] Address: [address] [place] [address] Performed By: #### 5 7021-8, 7-7 ####[facility] LABCLIA [id number] [place] [address] [place] Immature granulocytes (Bld) [#/Vol] 0.31 10*3/uL High <0.10 [facility] Comment on above: Order Comment: Speci men Type: BLOOD SPECIMENOrdering Facility: [facility] Address: [address] [place] [address] Performed By: #### 5 7021-8, 4536-7 ####[facility] LABCLIA [id number] [place] [address] [place] Immature granulocytes/100 WBC (Bld) 3.0 % Normal [facility] Comment on above: Order Comment: Speci men Type: BLOOD SPECIMENOrdering Facility: [facility] Address: [address] [place] [address] Performed By: #### 5 7021-8, 4536-7 ####[facility] LABCLIA [id number] [place] [address] [place] Lymphocytes (Bld) [#/Vol] 3.66 10*3/uL Normal 1.00-4.00 [facility] Comment on above: Order Comment: Speci men Type: BLOOD SPECIMENOrdering Facility: [facility] Address: [address] [place] [address] Performed By: #### 5 7021-8, 4536-7 ####[facility] LABCLIA [id number] [place] [address] [place] Lymphocytes/100 WBC (Bld) 35.1 % Normal [facility] Comment on above: Order Comment: Speci men Type: BLOOD SPECIMENOrdering Facility: [facility] Address: [address] [place] [address] Performed By: #### 5 7021-8, 4536-7 ####[facility] LABCLIA [id number] [place] [address] [place] MCH (RBC) [Entitic mass] 28.8 pg Normal 26.0-34.0 [facility] Comment on above: Order Comment: Speci men Type: BLOOD SPECIMENOrdering Facility: [facility] Address: [address] [place] [address] Performed By: #### 5 7021-8, 7 ####[facility] LABCLIA [id number] [place] [address] [place] MCHC (RBC) [Mass/Vol] 33.4 g/dL Normal 30.5-36.0 [facility] Comment on above: Order Comment: Speci men Type: BLOOD SPECIMENOrdering Facility: [facility] Address: [address] [place] [address] Performed By: #### 5 7021-8, 7 ####[facility] LABIA [id number] [place] [address] [place] MCV (RBC) [Entitic vol] 86.3 fL Normal 80.0-100.0 [facility] Comment on above: Order Comment: Speci men Type: BLOOD SPECIMENOrdering Facility: [facility] Address: [address] [place] [address] Performed By: #### 5 7021-8, 7 ####[facility] LABIA [id number] [place] [address] [place] Monocytes (Bld) [#/Vol] 0.70 10*3/uL Normal <0.87 [facility] Comment on above: Order Comment: Speci men Type: BLOOD SPECIMENOrdering Facility: [facility] Address: [address] [place] [address] Performed By: #### 5 7021-8, 7 ####[facility] LABIA [id number] [place] [address] [place] Monocytes/100 WBC (Bld) 6.7 % Normal [facility] Comment on above: Order Comment: Speci men Type: BLOOD SPECIMENOrdering Facility: [facility] Address: [address] [place] [address] Performed By: #### 5 7021-8, 4536-7 ####[facility] LABIA [id number] [place] [address] [place] Neutrophils (Bld) [#/Vol] 5.56 10*3/uL Normal 1.45-7.50 [facility] Comment on above: Order Comment: Speci men Type: BLOOD SPECIMENOrdering Facility: [facility] Address: [address] [place] [address] Performed By: #### 5 7021-8, 7-7 ####[facility] LABCLIA [id number] [place] [address] [place] Neutrophils/100 WBC (Bld) 53.2 % Normal [facility] Comment on above: Order Comment: Speci men Type: BLOOD SPECIMENOrdering Facility: [facility] Address: [address] [place] [address] Performed By: #### 5 7021-8, 4536-7 ####[facility] LABCLIA [id number] [place] [address] [place] Nucleated RBC (Bld) [#/Vol] 10*3/uL Normal <0.01 [facility] Comment on above: Order Comment: Speci men Type: BLOOD SPECIMENOrdering Facility: [facility] Address: [address] [place] [address] Performed By: #### 5 7021-8, 4536-7 ####[facility] LABCLIA [id number] [place] [address] [place] Nucleated RBC/100 WBC (Bld) [Ratio] 0.0 /100 WBC Normal [facility] Comment on above: Order Comment: Speci men Type: BLOOD SPECIMENOrdering Facility: [facility] Address: [address] [place] [address] Performed By: #### 5 7021-8, 4536-7 ####[facility] LABCLIA [id number] [place] [address] [place] Platelet mean volume (Bld) [Entitic vol] 9.6 fL Normal 9.0-12.7 [facility] Comment on above: Order Comment: Speci men Type: BLOOD SPECIMENOrdering Facility: [facility] Address: [address] [place] [address] Performed By: #### 5 7021-8, 7-7 ####[facility] LABCLIA [id number] [place] [address] [place] Platelets (Bld) [#/Vol] 331 10*3/uL Normal 150-400 [facility] Comment on above: Order Comment: Speci men Type: BLOOD SPECIMENOrdering Facility: [facility] Address: [address] [place] [address] Performed By: #### 5 7021-8, 7-7 ####[facility] LABCLIA [id number] [place] [address] [place] RBC (Bld) [#/Vol] 4.82 10*6/uL Normal 3.90-5.20 [facility] Comment on above: Order Comment: Speci men Type: BLOOD SPECIMENOrdering Facility: [facility] Address: [address] [place] [address] Performed By: #### 5 7021-8, 4536-7 ####[facility] LABCLIA [id number] [place] [address] [place] WBC (Bld) [#/Vol] 10.44 10*3/uL Normal 3.70-11.00 [facility] Comment on above: Order Comment: Speci men Type: BLOOD SPECIMENOrdering Facility: [facility] Address: [address] [place] [address] Performed By: #### 5 7021-8, 7-7 ####[facility] LABCLIA [id number] [place] [address] [place] CRP SerPl-mCncon 01-09-2025 CRP [Mass/Vol] 0.4 mg/dL Normal <0.9 [facility] Comment on above: Order Comment: Speci men Type: BLOOD SPECIMENOrdering Facility: [facility] Address: [address] [place], [place] [address] Performed By: #### 2 4321-2, 1988-03 ####[facility] LABCLIA [id number] [address] [address] [place] ED NOTEon 01-09-2025 ED NOTE Normal [facility] ED PROV NOTEon 01-09-2025 ED PROV NOTE Normal [facility] ED Triage Noteon 01-09-2025 ED Triage Note Normal [facility] ESR Westergren method (Bld) [Velocity]on 01-09-2025 ESR (Bld) [Velocity] 12 mm/h Normal 0-20 [facility] Comment on above: Order Comment: Speci men Type: BLOOD SPECIMENOrdering Facility: [facility] Address: [address] [place] [address] Performed By: #### 5 7021-8, 4537-7 ####[facility] LABCLIA [id number] [place] [id number] [place] NURSING PROGon 01-09-2025 NURSING PROG Normal [facility] CNDSon 2025 CNDS Normal [facility] CONSULT PROGon 2025 CONSULT PROG Normal [facility] NURSING PROGon 2025 NURSING PROG Normal [facility] Basic metabolic 2000 panelon 01-06-2025 Anion gap [Moles/Vol] 10 mmol/L Normal 8-15 [facility] Comment on above: Order Comment: Speci men Type: BLOOD SPECIMENOrdering Facility: [facility] Address: [address] [place] [address] Performed By: #### 2 4321-2 ####[facility] LABCLIA [id number] [address] [address] [place] Calcium [Mass/Vol] 9.0 mg/dL Normal 8.5-10.2 [facility] Comment on above: Order Comment: Speci men Type: BLOOD SPECIMENOrdering Facility: [facility] Address: [address] [place] [address] Performed By: #### 2 4321-2 ####[facility] LABCLIA [id number] [place] [id number] [place] Chloride [Moles/Vol] 107 mmol/L Normal 98-107 [facility] Comment on above: Order Comment: Speci men Type: BLOOD SPECIMENOrdering Facility: [facility] Address: [address] [place] [address] Performed By: #### 2 4321-2 ####[facility] LABCLIA [id number] [place] [address] [place] CO2 [Moles/Vol] 24 mmol/L Normal 22-30 [facility] Comment on above: Order Comment: Speci men Type: BLOOD SPECIMENOrdering Facility: [facility] Address: [address] [place] [address] Performed By: #### 2 4321-2 ####[facility] LABCLIA [id number] [place] [address] [place] Creatinine [Mass/Vol] 0.66 mg/dL Normal 0.58-0.96 [facility] Comment on above: Order Comment: Speci men Type: BLOOD SPECIMENOrdering Facility: [facility] Address: [address] [place] [address] Performed By: #### 2 4321-2 ####[facility] LABCLIA [id number] [place] [address] [place] Creatinine and Glomerular filtration rate.predicted panel (S/P/Bld) 119 mL/min/1.73m??? Normal >=60 [facility] Comment on above: Order Comment: Speci men Type: BLOOD SPECIMENOrdering Facility: [facility] Address: [address] [place] [address] Result Comment: Anne-Marie mated Glomerular Filtration Rate [...] actual GFR. Performed By: #### 2 4321-2 ####[facility] LABIA [id number] [place] [address] [place] Glucose [Mass/Vol] 98 mg/dL Normal 74-99 [facility] Comment on above: Order Comment: Mookie roberts Type: BLOOD SPECIMENOrdering Facility: [facility] Address: [address] [place] [address] Result Comment: The [place] [employer] (ADA) provides guidance for cutoff [...] Standards of Medical Care in Diabetes 2016, [place] [employer]. Diabetes Care. 2016.39(Suppl 1). Performed By: #### 2 4321-2 ####[facility] LABIA [id number] [place] [id number] [place] Potassium [Moles/Vol] 4.3 mmol/L Normal 3.7-5.1 [facility] Comment on above: Order Comment: Mookie roberts Type: BLOOD SPECIMENOrdering Facility: [facility] Address: [address] [place] [address] Performed By: #### 2 4321-2 ####[facility] LABIA [id number] [place] [id number] [place] Sodium [Moles/Vol] 141 mmol/L Normal 136-144 [facility] Comment on above: Order Comment: Speci men Type: BLOOD SPECIMENOrdering Facility: [facility] Address: [address] [place] [address] Performed By: #### 2 4321-2 ####[facility] LABCLIA [id number] [place] [address] [place] Urea nitrogen [Mass/Vol] 14 mg/dL Normal 7-21 [facility] Comment on above: Order Comment: Speci men Type: BLOOD SPECIMENOrdering Facility: [facility] Address: [address] [place] [address] Performed By: #### 2 4321-2 ####[facility] LABCLIA [id number] [place] [address] [place] CBC W Auto Differential pane l (Bld)on 01-06-2025 Basophils (Bld) [#/Vol] 0.06 10*3/uL Normal <0.11 [facility] Comment on above: Order Comment: Speci men Type: BLOOD SPECIMENOrdering Facility: [facility] Address: [address] [place] [address] Performed By: #### 5 7021-8 ####[facility] LABCLIA [id number] [place] [address] [place] Basophils/100 WBC (Bld) 0.4 % Normal [facility] Comment on above: Order Comment: Speci men Type: BLOOD SPECIMENOrdering Facility: [facility] Address: [address] [place] [address] Performed By: #### 5 7021-8 ####[facility] LABCLIA [id number] [place] [address] [place] Differential cell count method Nom (Bld) Auto Normal [facility] Comment on above: Order Comment: Speci men Type: BLOOD SPECIMENOrdering Facility: [facility] Address: [address] [place] [address] Performed By: #### 5 7021-8 ####[facility] LABCLIA [id number] [place] [address] [place] Eosinophils (Bld) [#/Vol] 10*3/uL Normal <0.46 [facility] Comment on above: Order Comment: Speci men Type: BLOOD SPECIMENOrdering Facility: [facility] Address: [address] [place] [address] Performed By: #### 5 7021-8 ####[facility] LABCLIA [id number] [place] [address] [place] Eosinophils/100 WBC (Bld) 0.0 % Normal [facility] Comment on above: Order Comment: Speci men Type: BLOOD SPECIMENOrdering Facility: [facility] Address: [address] [place] [address] Performed By: #### 5 7021-8 ####[facility] LABCLIA [id number] [place] [address] [place] Erythrocyte distribution width (RBC) [Ratio] 13.5 % Normal 11.5-15.0 [facility] Comment on above: Order Comment: Speci men Type: BLOOD SPECIMENOrdering Facility: [facility] Address: [address] [place] [address] Performed By: #### 5 7021-8 ####[facility] LABCLIA [id number] [place] [address] [place] Hematocrit (Bld) [Volume fraction] 39.3 % Normal 36.0-46.0 [facility] Comment on above: Order Comment: Speci men Type: BLOOD SPECIMENOrdering Facility: [facility] Address: [address] [place] [address] Performed By: #### 5 7021-8 ####[facility] LABCLIA [id number] [place] [address] [place] Hemoglobin (Bld) [Mass/Vol] 12.7 g/dL Normal 11.5-15.5 [facility] Comment on above: Order Comment: Speci men Type: BLOOD SPECIMENOrdering Facility: [facility] Address: [address] [place] [address] Performed By: #### 5 7021-8 ####[facility] LABCLIA [id number] [place] [address] [place] Immature granulocytes (Bld) [#/Vol] 0.44 10*3/uL High <0.10 [facility] Comment on above: Order Comment: Speci men Type: BLOOD SPECIMENOrdering Facility: [facility] Address: [address] [place] [address] Performed By: #### 5 7021-8 ####[facility] LABCLIA [id number] [place] [address] [place] Immature granulocytes/100 WBC (Bld) 3.2 % Normal [facility] Comment on above: Order Comment: Speci men Type: BLOOD SPECIMENOrdering Facility: [facility] Address: [address] [place] [address] Performed By: #### 5 7021-8 ####[facility] LABCLIA [id number] [place] [address] [place] Lymphocytes (Bld) [#/Vol] 1.87 10*3/uL Normal 1.00-4.00 [facility] Comment on above: Order Comment: Speci men Type: BLOOD SPECIMENOrdering Facility: [facility] Address: [address] [place] [address] Performed By: #### 5 7021-8 ####[facility] LABCLIA [id number] [place] [address] [place] Lymphocytes/100 WBC (Bld) 13.5 % Normal [facility] Comment on above: Order Comment: Speci men Type: BLOOD SPECIMENOrdering Facility: [facility] Address: [address] [place] [address] Performed By: #### 5 7021-8 ####[facility] LABIA [id number] [place] [address] [place] MCH (RBC) [Entitic mass] 28.6 pg Normal 26.0-34.0 [facility] Comment on above: Order Comment: Speci men Type: BLOOD SPECIMENOrdering Facility: [facility] Address: [address] [place] [address] Performed By: #### 5 7021-8 ####[facility] [id number] [place] [address] [place] MCHC (RBC) [Mass/Vol] 32.3 g/dL Normal 30.5-36.0 [facility] Comment on above: Order Comment: Speci men Type: BLOOD SPECIMENOrdering Facility: [facility] Address: [address] [place] [address] Performed By: #### 5 7021-8 ####[facility] [id number] [place] [address] [place] MCV (RBC) [Entitic vol] 88.5 fL Normal 80.0-100.0 [facility] Comment on above: Order Comment: Speci men Type: BLOOD SPECIMENOrdering Facility: [facility] Address: [address] [place] [address] Performed By: #### 5 7021-8 ####[facility] LABIA [id number] [place] [address] [place] Monocytes (Bld) [#/Vol] 0.45 10*3/uL Normal <0.87 [facility] Comment on above: Order Comment: Speci men Type: BLOOD SPECIMENOrdering Facility: [facility] Address: [address] [place] [address] Performed By: #### 5 7021-8 ####[facility] LABIA [id number] [place] [address] [place] Monocytes/100 WBC (Bld) 3.3 % Normal [facility] Comment on above: Order Comment: Speci men Type: BLOOD SPECIMENOrdering Facility: [facility] Address: [address] [place] [address] Performed By: #### 5 7021-8 ####[facility] LABCLIA [id number] [place] [address] [place] Neutrophils (Bld) [#/Vol] 11.02 10*3/uL High 1.45-7.50 [facility] Comment on above: Order Comment: Speci men Type: BLOOD SPECIMENOrdering Facility: [facility] Address: [address] [place] [address] Performed By: #### 5 7021-8 ####[facility] LABCLIA [id number] [place] [address] [place] Neutrophils/100 WBC (Bld) 79.6 % Normal [facility] Comment on above: Order Comment: Speci men Type: BLOOD SPECIMENOrdering Facility: [facility] Address: [address] [place] [address] Performed By: #### 5 7021-8 ####[facility] LABCLIA [id number] [place] [address] [place] Nucleated RBC (Bld) [#/Vol] 10*3/uL Normal <0.01 [facility] Comment on above: Order Comment: Speci men Type: BLOOD SPECIMENOrdering Facility: [facility] Address: [address] [place] [address] Performed By: #### 5 7021-8 ####[facility] LABCLIA [id number] [place] [address] [place] Nucleated RBC/100 WBC (Bld) [Ratio] 0.0 /100 WBC Normal [facility] Comment on above: Order Comment: Speci men Type: BLOOD SPECIMENOrdering Facility: [facility] Address: [address] [place] [address] Performed By: #### 5 7021-8 ####[facility] LABCLIA [id number] [place] [address] [place] Platelet mean volume (Bld) [Entitic vol] 10.0 fL Normal 9.0-12.7 [facility] Comment on above: Order Comment: Speci men Type: BLOOD SPECIMENOrdering Facility: [facility] Address: [address] [place] [address] Performed By: #### 5 7021-8 ####[facility] LABIA [id number] [place] [address] [place] Platelets (Bld) [#/Vol] 302 10*3/uL Normal 150-400 [facility] Comment on above: Order Comment: Speci men Type: BLOOD SPECIMENOrdering Facility: [facility] Address: [address] [place] [address] Performed By: #### 5 7021-8 ####[facility] LABIA [id number] [place] [address] [place] RBC (Bld) [#/Vol] 4.44 10*6/uL Normal 3.90-5.20 [facility] Comment on above: Order Comment: Speci men Type: BLOOD SPECIMENOrdering Facility: [facility] Address: [address] [place] [address] Performed By: #### 5 7021-8 ####[facility] LABCLIA [id number] [place] [address] [place] WBC (Bld) [#/Vol] 13.84 10*3/uL High 3.70-11.00 [facility] Comment on above: Order Comment: Speci men Type: BLOOD SPECIMENOrdering Facility: [facility] Address: [address] [place] [address] Performed By: #### 5 7021-8 ####[facility] LABCLIA [id number] [address] [address] [place] CONSULT PROGon 01-06-2025 CONSULT PROG Normal [facility] CONSULT PROG Normal [facility] NURSING PROGon 01-06-2025 NURSING PROG Normal [facility] Basic metabolic 2000 panelon 01-05-2025 Anion gap [Moles/Vol] 15 mmol/L Normal 8-15 [facility] Comment on above: Order Comment: Speci men Type: BLOOD SPECIMENOrdering Facility: [facility] Address: [address] [place] [address] Performed By: #### 2 4321-2 ####[facility] LABCLIA [id number] [place] [address] [place] Calcium [Mass/Vol] 9.1 mg/dL Normal 8.5-10.2 [facility] Comment on above: Order Comment: Speci men Type: BLOOD SPECIMENOrdering Facility: [facility] Address: [address] [place] [address] Performed By: #### 2 4321-2 ####[facility] LABCLIA [id number] [place] [address] [place] Chloride [Moles/Vol] 105 mmol/L Normal 98-107 [facility] Comment on above: Order Comment: Speci men Type: BLOOD SPECIMENOrdering Facility: [facility] Address: [address] [place] [address] Performed By: #### 2 4321-2 ####[facility] LABCLIA [id number] [place] [id number] [place] CO2 [Moles/Vol] 20 mmol/L Low 22-30 [facility] Comment on above: Order Comment: Speci men Type: BLOOD SPECIMENOrdering Facility: [facility] Address: [address] [place], [place] [address] Performed By: #### 2 4321-2 ####[facility] LABIA [id number] [place] [id number] [place] Creatinine [Mass/Vol] 0.81 mg/dL Normal 0.58-0.96 [facility] Comment on above: Order Comment: Mookie roberts Type: BLOOD SPECIMENOrdering Facility: [facility] Address: [address] [place] [address] Performed By: #### 2 4321-2 ####[facility] LABIA [id number] [place] [address] [place] Creatinine and Glomerular filtration rate.predicted panel (S/P/Bld) 98 mL/min/1.73m??? Normal >=60 [facility] Comment on above: Order Comment: Mookie roberts Type: BLOOD SPECIMENOrdering Facility: [facility] Address: [address] [place] [address] Result Comment: Anne-Marie mated Glomerular Filtration Rate [...] actual GFR. Performed By: #### 2 4321-2 ####[facility] LABIA [id number] [place] [address] [place] Glucose [Mass/Vol] 117 mg/dL High 74-99 [facility] Comment on above: Order Comment: Mookie roberts Type: BLOOD SPECIMENOrdering Facility: [facility] Address: [address] [place] [address] Result Comment: The [place] [employer] (ADA) provides guidance for cutoff [...] Standards of Medical Care in Diabetes 2016, [place] [employer]. Diabetes Care. 2016.39(Suppl 1). Performed By: #### 2 4321-2 ####[facility] LABCLIA [id number] [place] [address] [place] Potassium [Moles/Vol] 4.1 mmol/L Normal 3.7-5.1 [facility] Comment on above: Order Comment: Speci men Type: BLOOD SPECIMENOrdering Facility: [facility] Address: [address] [place] [address] Performed By: #### 2 4321-2 ####[facility] LABIA [id number] [place] [address] [place] Sodium [Moles/Vol] 140 mmol/L Normal 136-144 [facility] Comment on above: Order Comment: Speci men Type: BLOOD SPECIMENOrdering Facility: [facility] Address: [address] [place] [address] Performed By: #### 2 4321-2 ####[facility] LABIA [id number] [place] [address] [place] Urea nitrogen [Mass/Vol] 15 mg/dL Normal 7-21 [facility] Comment on above: Order Comment: Speci men Type: BLOOD SPECIMENOrdering Facility: [facility] Address: [address] [place] [address] Performed By: #### 2 4321-2 ####[facility] LABIA [id number] [place] [address] [place] CASE MANAGEMon 01-05-2025 CASE MANAGEM Normal [facility] CBC W Auto Differential pane l (Bld)on 01-05-2025 Basophils (Bld) [#/Vol] 0.04 10*3/uL Normal <0.11 [facility] Comment on above: Order Comment: Speci men Type: BLOOD SPECIMENOrdering Facility: [facility] Address: [address] [place] [address] Performed By: #### 5 7021-8 ####[facility] LABCLIA [id number] [address] [address] [place] Basophils/100 WBC (Bld) 0.3 % Normal [facility] Comment on above: Order Comment: Speci men Type: BLOOD SPECIMENOrdering Facility: [facility] Address: [address] [place] [address] Performed By: #### 5 7021-8 ####[facility] LABCLIA [id number] [place] [address] [place] Differential cell count method Nom (Bld) Auto Normal [facility] Comment on above: Order Comment: Speci men Type: BLOOD SPECIMENOrdering Facility: [facility] Address: [address] [place] [address] Performed By: #### 5 7021-8 ####[facility] LABCLIA [id number] [place] [address] [place] Eosinophils (Bld) [#/Vol] 10*3/uL Normal <0.46 [facility] Comment on above: Order Comment: Speci men Type: BLOOD SPECIMENOrdering Facility: [facility] Address: [address] [place] [address] Performed By: #### 5 7021-8 ####[facility] LABCLIA [id number] [place] [address] [place] Eosinophils/100 WBC (Bld) 0.2 % Normal [facility] Comment on above: Order Comment: Speci men Type: BLOOD SPECIMENOrdering Facility: [facility] Address: [address] [place] [address] Performed By: #### 5 7021-8 ####[facility] LABCLIA [id number] [place] [address] [place] Erythrocyte distribution width (RBC) [Ratio] 13.2 % Normal 11.5-15.0 [facility] Comment on above: Order Comment: Speci men Type: BLOOD SPECIMENOrdering Facility: [facility] Address: [address] [place] [address] Performed By: #### 5 7021-8 ####[facility] LABIA [id number] [place] [address] [place] Hematocrit (Bld) [Volume fraction] 38.7 % Normal 36.0-46.0 [facility] Comment on above: Order Comment: Speci men Type: BLOOD SPECIMENOrdering Facility: [facility] Address: [address] [place] [address] Performed By: #### 5 7021-8 ####[facility] LABIA [id number] [place] [address] [place] Hemoglobin (Bld) [Mass/Vol] 13.0 g/dL Normal 11.5-15.5 [facility] Comment on above: Order Comment: Speci men Type: BLOOD SPECIMENOrdering Facility: [facility] Address: [address] [place] [address] Performed By: #### 5 7021-8 ####[facility] LABIA [id number] [place] [address] [place] Immature granulocytes (Bld) [#/Vol] 0.25 10*3/uL High <0.10 [facility] Comment on above: Order Comment: Speci men Type: BLOOD SPECIMENOrdering Facility: [facility] Address: [address] [place] [address] Performed By: #### 5 7021-8 ####[facility] LABCLIA [id number] [place] [address] [place] Immature granulocytes/100 WBC (Bld) 2.1 % Normal [facility] Comment on above: Order Comment: Speci men Type: BLOOD SPECIMENOrdering Facility: [facility] Address: [address] [place] [address] Performed By: #### 5 7021-8 ####[facility] LABCLIA [id number] [place] [address] [place] Lymphocytes (Bld) [#/Vol] 1.44 10*3/uL Normal 1.00-4.00 [facility] Comment on above: Order Comment: Speci men Type: BLOOD SPECIMENOrdering Facility: [facility] Address: [address] [place] [address] Performed By: #### 5 7021-8 ####[facility] LABCLIA [id number] [place] [address] [place] [place] Lymphocytes/100 WBC (Bld) 12.2 % Normal [facility] Comment on above: Order Comment: Speci men Type: BLOOD SPECIMENOrdering Facility: [facility] Address: [address] [place] [address] Performed By: #### 5 7021-8 ####[facility] LABCLIA [id number] [place] [address] [place] MCH (RBC) [Entitic mass] 29.3 pg Normal 26.0-34.0 [facility] Comment on above: Order Comment: Speci men Type: BLOOD SPECIMENOrdering Facility: [facility] Address: [address] [place] [address] Performed By: #### 5 7021-8 ####[facility] LABIA [id number] [place] [address] [place] MCHC (RBC) [Mass/Vol] 33.6 g/dL Normal 30.5-36.0 [facility] Comment on above: Order Comment: Speci men Type: BLOOD SPECIMENOrdering Facility: [facility] Address: [address] [place] [address] Performed By: #### 5 7021-8 ####[facility] LABCLIA [id number] [place] [address] [place] MCV (RBC) [Entitic vol] 87.2 fL Normal 80.0-100.0 [facility] Comment on above: Order Comment: Speci men Type: BLOOD SPECIMENOrdering Facility: [facility] Address: [address] [place] [address] Performed By: #### 5 7021-8 ####[facility] LABCLIA [id number] [place] [address] [place] Monocytes (Bld) [#/Vol] 0.66 10*3/uL Normal <0.87 [facility] Comment on above: Order Comment: Speci men Type: BLOOD SPECIMENOrdering Facility: [facility] Address: [address] [place] [address] Performed By: #### 5 7021-8 ####[facility] LABIA [id number] [place] [address] [place] Monocytes/100 WBC (Bld) 5.6 % Normal [facility] Comment on above: Order Comment: Speci men Type: BLOOD SPECIMENOrdering Facility: [facility] Address: [address] [place] [address] Performed By: #### 5 7021-8 ####[facility] LABIA [id number] [place] [address] [place] Neutrophils (Bld) [#/Vol] 9.36 10*3/uL High 1.45-7.50 [facility] Comment on above: Order Comment: Speci men Type: BLOOD SPECIMENOrdering Facility: [facility] Address: [address] [place] [address] Performed By: #### 5 7021-8 ####[facility] LABCLIA [id number] [place] [address] [place] Neutrophils/100 WBC (Bld) 79.6 % Normal [facility] Comment on above: Order Comment: Speci men Type: BLOOD SPECIMENOrdering Facility: [facility] Address: [address] [place] [address] Performed By: #### 5 7021-8 ####[facility] LABCLIA [id number] [place] [address] [place] Nucleated RBC (Bld) [#/Vol] 10*3/uL Normal <0.01 [facility] Comment on above: Order Comment: Speci men Type: BLOOD SPECIMENOrdering Facility: [facility] Address: [address] [place] [address] Performed By: #### 5 7021-8 ####[facility] LABIA [id number] [place] [address] [place] Nucleated RBC/100 WBC (Bld) [Ratio] 0.0 /100 WBC Normal [facility] Comment on above: Order Comment: Speci men Type: BLOOD SPECIMENOrdering Facility: [facility] Address: [address] [place] [address] Performed By: #### 5 7021-8 ####[facility] LABIA [id number] [place] [address] [place] Platelet mean volume (Bld) [Entitic vol] 10.3 fL Normal 9.0-12.7 [facility] Comment on above: Order Comment: Speci men Type: BLOOD SPECIMENOrdering Facility: [facility] Address: [address] [place] [address] Performed By: #### 5 7021-8 ####[facility] LABIA [id number] [place] [address] [place] Platelets (Bld) [#/Vol] 322 10*3/uL Normal 150-400 [facility] Comment on above: Order Comment: Speci men Type: BLOOD SPECIMENOrdering Facility: [facility] Address: [address] [place] [address] Performed By: #### 5 7021-8 ####[facility] LABCLIA [id number] [place] [id number] [place] RBC (Bld) [#/Vol] 4.44 10*6/uL Normal 3.90-5.20 [facility] Comment on above: Order Comment: Speci men Type: BLOOD SPECIMENOrdering Facility: [facility] Address: [address] [place] [address] Performed By: #### 5 7021-8 ####[facility] LABCLIA [id number] [place] [address] [place] WBC (Bld) [#/Vol] 11.77 10*3/uL High 3.70-11.00 [facility] Comment on above: Order Comment: Speci men Type: BLOOD SPECIMENOrdering Facility: [facility] Address: [address] [place] [address] Performed By: #### 5 7021-8 ####[facility] LABCLIA [id number] [place] [id number] [place] CONSULTon 01-05-2025 CONSULT Normal [facility] CONSULT PROGon 01-05-2025 CONSULT PROG Normal [facility] CONSULT PROG Normal [facility] MEDICAL EMERon 01-05-2025 MEDICAL RAQUEL Normal [facility] NURSING PROGon 01-05-2025 NURSING PROG Normal [facility] TRYPTASE BLOODon 01-05-2025 Tryptase [Mass/Vol] 3.6 ug/L Normal <8.4 [facility] Comment on above: Order Comment: Speci men Type: BLOOD SPECIMENOrdering Facility: [facility] Address: [address] [place] [address] Performed By: #### T RYPT ####[facility] LABCLIA [id number] [place] [id number] [place] Basic metabolic 2000 panelon 01-04-2025 Anion gap [Moles/Vol] 12 mmol/L Normal 8-15 [facility] Comment on above: Order Comment: Speci men Type: BLOOD SPECIMENOrdering Facility: [facility] Address: [address] [place], [place] [address] Performed By: #### 2 4320-12, 1988-03 ####[facility] LABCLIA [id number] [facility] [address] [address] [place] Calcium [Mass/Vol] 9.0 mg/dL Normal 8.5-10.2 [facility] Comment on above: Order Comment: Speci men Type: BLOOD SPECIMENOrdering Facility: [facility] Address: [address] [place], [place] [address] Performed By: #### 2 4320-12, 1988-03 ####[facility] LABCLIA [id number] [place] [address] [place] Chloride [Moles/Vol] 104 mmol/L Normal 98-107 [facility] Comment on above: Order Comment: Speci men Type: BLOOD SPECIMENOrdering Facility: [facility] Address: [address] [place], [place] [address] Performed By: #### 2 4320-12, 1988-03 ####[facility] LABCLIA [id number] [place] [address] [place] CO2 [Moles/Vol] 23 mmol/L Normal 22-30 [facility] Comment on above: Order Comment: Speci men Type: BLOOD SPECIMENOrdering Facility: [facility] Address: [address] [place] [address] Performed By: #### 2 4320-12, 1988-03 ####[facility] LABCLIA [id number] [place] [id number] [place] Creatinine [Mass/Vol] 0.80 mg/dL Normal 0.58-0.96 [facility] Comment on above: Order Comment: Speci men Type: BLOOD SPECIMENOrdering Facility: [facility] Address: [address] [place] [address] Performed By: #### 2 43211-24, 1988-03 ####[facility] [id number] [place] [address] [place] Creatinine and Glomerular filtration rate.predicted panel (S/P/Bld) 100 mL/min/1.73m??? Normal >=60 [facility] Comment on above: Order Comment: Mookie roberts Type: BLOOD SPECIMENOrdering Facility: [facility] Address: [address] [place] [address] Result Comment: Anne-Marie mated Glomerular Filtration Rate [...] GFR. Performed By: #### 2 4320-12, 1988-03 ####[facility] LABIA [id number] [place] [address] [place] Glucose [Mass/Vol] 84 mg/dL Normal 74-99 [facility] Comment on above: Order Comment: Mookie roberts Type: BLOOD SPECIMENOrdering Facility: [facility] Address: [address] [place] [address] Result Comment: The [place] [employer] (ADA) provides guidance for cutoff [...] Standards of Medical Care in Diabetes 2016, [employer]. Diabetes Care. 2016.39(Suppl 1). Performed By: #### 2 4320-12, 1988-03 ####[facility] LABCLIA [id number] [place] [address] [place] Potassium [Moles/Vol] 4.5 mmol/L Normal 3.7-5.1 [facility] Comment on above: Order Comment: Speci men Type: BLOOD SPECIMENOrdering Facility: [facility] Address: [address] [place] [address] Performed By: #### 2 4320-12, 1988-03 ####[facility] LABCLIA [id number] [place] [address] [place] Sodium [Moles/Vol] 139 mmol/L Normal 136-144 [facility] Comment on above: Order Comment: Speci men Type: BLOOD SPECIMENOrdering Facility: [facility] Address: [address] [place] [address] Performed By: #### 2 4320-12, 1988-03 ####[facility] LABIA [id number] [place] [address] [place] Urea nitrogen [Mass/Vol] 16 mg/dL Normal 7-21 [facility] Comment on above: Order Comment: Speci men Type: BLOOD SPECIMENOrdering Facility: [facility] Address: [address] [place] [address] Performed By: #### 2 4320-12, 1988-03 ####[facility] LABIA [id number] [place] [address] [place] CBC W Auto Differential pane l (Bld)on 01-04-2025 Basophils (Bld) [#/Vol] 0.05 10*3/uL Normal <0.11 [facility] Comment on above: Order Comment: Speci men Type: BLOOD SPECIMENOrdering Facility: [facility] Address: [address] [place] [address] Performed By: #### 5 7021-8 ####[facility] LABCLIA [id number] [place] [address] [place] Basophils/100 WBC (Bld) 0.7 % Normal [facility] Comment on above: Order Comment: Speci men Type: BLOOD SPECIMENOrdering Facility: [facility] Address: [address] [place] [address] Performed By: #### 5 7021-8 ####[facility] LABCLIA [id number] [place] [address] [place] Differential cell count method Nom (Bld) Auto Normal [facility] Comment on above: Order Comment: Speci men Type: BLOOD SPECIMENOrdering Facility: [facility] Address: [address] [place] [address] Performed By: #### 5 7021-8 ####[facility] LABCLIA [id number] [place] [address] [place] Eosinophils (Bld) [#/Vol] 0.15 10*3/uL Normal <0.46 [facility] Comment on above: Order Comment: Speci men Type: BLOOD SPECIMENOrdering Facility: [facility] Address: [address] [place] [address] Performed By: #### 5 7021-8 ####[facility] LABCLIA [id number] [place] [address] [place] Eosinophils/100 WBC (Bld) 2.1 % Normal [facility] Comment on above: Order Comment: Speci men Type: BLOOD SPECIMENOrdering Facility: [facility] Address: [address] [place] [address] Performed By: #### 5 7021-8 ####[facility] LABCLIA [id number] [place] [address] [place] Erythrocyte distribution width (RBC) [Ratio] 13.3 % Normal 11.5-15.0 [facility] Comment on above: Order Comment: Speci men Type: BLOOD SPECIMENOrdering Facility: [facility] Address: [address] [place] [address] Performed By: #### 5 7021-8 ####[facility] LABCLIA [id number] [place] [address] [place] Hematocrit (Bld) [Volume fraction] 38.3 % Normal 36.0-46.0 [facility] Comment on above: Order Comment: Speci men Type: BLOOD SPECIMENOrdering Facility: [facility] Address: [address] [place] [address] Performed By: #### 5 7021-8 ####[facility] LABIA [id number] [place] [address] [place] Hemoglobin (Bld) [Mass/Vol] 12.7 g/dL Normal 11.5-15.5 [facility] Comment on above: Order Comment: Speci men Type: BLOOD SPECIMENOrdering Facility: [facility] Address: [address] [place] [address] Performed By: #### 5 7021-8 ####[facility] LABIA [id number] [place] [address] [place] Immature granulocytes (Bld) [#/Vol] 0.15 10*3/uL High <0.10 [facility] Comment on above: Order Comment: Speci men Type: BLOOD SPECIMENOrdering Facility: [facility] Address: [address] [place] [address] Performed By: #### 5 7021-8 ####[facility] LABIA [id number] [place] [address] [place] Immature granulocytes/100 WBC (Bld) 2.1 % Normal [facility] Comment on above: Order Comment: Speci men Type: BLOOD SPECIMENOrdering Facility: [facility] Address: [address] [place] [address] Performed By: #### 5 7021-8 ####[facility] LABIA [id number] [place] [address] [place] Lymphocytes (Bld) [#/Vol] 3.70 10*3/uL Normal 1.00-4.00 [facility] Comment on above: Order Comment: Speci men Type: BLOOD SPECIMENOrdering Facility: [facility] Address: [address] [place] [address] Performed By: #### 5 7021-8 ####[facility] LABCLIA [id number] [place] [address] [place] Lymphocytes/100 WBC (Bld) 52.9 % Normal [facility] Comment on above: Order Comment: Speci men Type: BLOOD SPECIMENOrdering Facility: [facility] Address: [address] [place] [address] Performed By: #### 5 7021-8 ####[facility] LABIA [id number] [place] [address] [place] MCH (RBC) [Entitic mass] 29.4 pg Normal 26.0-34.0 [facility] Comment on above: Order Comment: Speci men Type: BLOOD SPECIMENOrdering Facility: [facility] Address: [address] [place] [address] Performed By: #### 5 7021-8 ####[facility] LABCLIA [id number] [place] [address] [place] MCHC (RBC) [Mass/Vol] 33.2 g/dL Normal 30.5-36.0 [facility] Comment on above: Order Comment: Speci men Type: BLOOD SPECIMENOrdering Facility: [facility] Address: [address] [place] [address] Performed By: #### 5 7021-8 ####[facility] LABCLIA [id number] [place] [address] [place] MCV (RBC) [Entitic vol] 88.7 fL Normal 80.0-100.0 [facility] Comment on above: Order Comment: Speci men Type: BLOOD SPECIMENOrdering Facility: [facility] Address: [address] [place] [address] Performed By: #### 5 7021-8 ####[facility] LABCLIA [id number] [place] [address] [place] Monocytes (Bld) [#/Vol] 0.48 10*3/uL Normal <0.87 [facility] Comment on above: Order Comment: Speci men Type: BLOOD SPECIMENOrdering Facility: [facility] Address: [address] [place] [address] Performed By: #### 5 7021-8 ####[facility] LABCLIA [id number] [place] [address] [place] Monocytes/100 WBC (Bld) 6.9 % Normal [facility] Comment on above: Order Comment: Speci men Type: BLOOD SPECIMENOrdering Facility: [facility] Address: [address] [place] [address] Performed By: #### 5 7021-8 ####[facility] LABCLIA [id number] [place] [address] [place] Neutrophils (Bld) [#/Vol] 2.47 10*3/uL Normal 1.45-7.50 [facility] Comment on above: Order Comment: Speci men Type: BLOOD SPECIMENOrdering Facility: [facility] Address: [address] [place] [address] Performed By: #### 5 7021-8 ####[facility] LABCLIA [id number] [place] [address] [place] Neutrophils/100 WBC (Bld) 35.3 % Normal [facility] Comment on above: Order Comment: Speci men Type: BLOOD SPECIMENOrdering Facility: [facility] Address: [address] [place] [address] Performed By: #### 5 7021-8 ####[facility] LABCLIA [id number] [place] [address] [place] Nucleated RBC (Bld) [#/Vol] 10*3/uL Normal <0.01 [facility] Comment on above: Order Comment: Speci men Type: BLOOD SPECIMENOrdering Facility: [facility] Address: [address] [place] [address] Performed By: #### 5 7021-8 ####[facility] LABCLIA [id number] [place] [address] [place] Nucleated RBC/100 WBC (Bld) [Ratio] 0.0 /100 WBC Normal [facility] Comment on above: Order Comment: Speci men Type: BLOOD SPECIMENOrdering Facility: [facility] Address: [address] [place] [address] Performed By: #### 5 7021-8 ####[facility] LABCLIA [id number] [place] [address] [place] Platelet mean volume (Bld) [Entitic vol] 9.8 fL Normal 9.0-12.7 [facility] Comment on above: Order Comment: Speci men Type: BLOOD SPECIMENOrdering Facility: [facility] Address: [address] [place] [address] Performed By: #### 5 7021-8 ####[facility] LABIA [id number] [place] [address] [place] Platelets (Bld) [#/Vol] 260 10*3/uL Normal 150-400 [facility] Comment on above: Order Comment: Speci men Type: BLOOD SPECIMENOrdering Facility: [facility] Address: [address] [place] [address] Performed By: #### 5 7021-8 ####[facility] LABCLIA [id number] [place] [address] [place] RBC (Bld) [#/Vol] 4.32 10*6/uL Normal 3.90-5.20 [facility] Comment on above: Order Comment: Speci men Type: BLOOD SPECIMENOrdering Facility: [facility] Address: [address] [place] [address] Performed By: #### 5 7021-8 ####[facility] LABCLIA [id number] [place] [address] [place] WBC (Bld) [#/Vol] 7.00 10*3/uL Normal 3.70-11.00 [facility] Comment on above: Order Comment: Speci men Type: BLOOD SPECIMENOrdering Facility: [facility] Address: [address] [place] [address] Performed By: #### 5 7021-8 ####[facility] LABCLIA [id number] [place] [address] [place] CONSULTon 01-04-2025 CONSULT Normal [facility] CONSULT PROGon 01-04-2025 CONSULT PROG Normal [facility] CONSULT PROG Normal [facility] CRP SerPl-mCncon 01-04-2025 CRP [Mass/Vol] 1.3 mg/dL High <0.9 [facility] Comment on above: Order Comment: Speci men Type: BLOOD SPECIMENOrdering Facility: [facility] Address: [address] [place] [address] Performed By: #### 2 4321-2, 1988-03 ####[facility] LABCLIA [id number] [place] [address] [place] [id number] 01-04-2025 ECG01 Normal [facility] Basic metabolic 2000 panelon 01-03-2025 Anion gap [Moles/Vol] 9 mmol/L Normal 8-15 [facility] Comment on above: Order Comment: Speci men Type: BLOOD SPECIMENOrdering Facility: [facility] Address: [address] [place] [address] Performed By: #### 1 988-5, 51593-2 ####[facility] LABCLIA [id number] [place] [address] [place] Calcium [Mass/Vol] 9.3 mg/dL Normal 8.5-10.2 [facility] Comment on above: Order Comment: Speci men Type: BLOOD SPECIMENOrdering Facility: [facility] Address: [address] [place] [address] Performed By: #### 1 988-5, 22756-7 ####[facility] LABCLIA [id number] [place] [address] [place] Chloride [Moles/Vol] 106 mmol/L Normal 98-107 [facility] Comment on above: Order Comment: Speci men Type: BLOOD SPECIMENOrdering Facility: [facility] Address: [address] [place] [address] Performed By: #### 1 988-5, 50678-5 ####[facility] LABCLIA [id number] [place] [address] [place] CO2 [Moles/Vol] 27 mmol/L Normal 22-30 [facility] Comment on above: Order Comment: Speci men Type: BLOOD SPECIMENOrdering Facility: [facility] Address: [address] [place] [address] Performed By: #### 1 988-5, 13244-4 ####[facility] LABCLIA [id number] [place] [address] [place] Creatinine [Mass/Vol] 0.88 mg/dL Normal 0.58-0.96 [facility] Comment on above: Order Comment: Speci men Type: BLOOD SPECIMENOrdering Facility: [facility] Address: [address] [place] [address] Performed By: #### 1 988-5, 83183-5 ####[facility] LABCLIA [id number] [place] [address] [place] Creatinine and Glomerular filtration rate.predicted panel (S/P/Bld) 89 mL/min/1.73m??? Normal >=60 [facility] Comment on above: Order Comment: Mookie roberts Type: BLOOD SPECIMENOrdering Facility: [facility] Address: [address] [place] [address] Result Comment: Anne-Marie mated Glomerular Filtration Rate [...] actual GFR. Performed By: #### 1 988-5, 28244-6 ####[facility] LABCLIA [id number] [place] [address] [place] Glucose [Mass/Vol] 96 mg/dL Normal 74-99 [facility] Comment on above: Order Comment: Mookie roberts Type: BLOOD SPECIMENOrdering Facility: [facility] Address: [address] [place] [address] Result Comment: The [place] [employer] (ADA) provides guidance for cutoff [...] Standards of Medical Care in Diabetes 2016, [place] [employer]. Diabetes Care. 2016.39(Suppl 1). Performed By: #### 1 988-5, 86086-6 ####[facility] LABCLIA [id number] [place] [address] [place] Potassium [Moles/Vol] 4.0 mmol/L Normal 3.7-5.1 [facility] Comment on above: Order Comment: Speci men Type: BLOOD SPECIMENOrdering Facility: [facility] Address: [address] [place] [address] Performed By: #### 1 988-5, 75682-3 ####[facility] LABCLIA [id number] [place] [address] [place] Sodium [Moles/Vol] 142 mmol/L Normal 136-144 [facility] Comment on above: Order Comment: Speci men Type: BLOOD SPECIMENOrdering Facility: [facility] Address: [address] [place] [address] Performed By: #### 1 988-5, 92483-2 ####[facility] LABCLIA [id number] [place] [address] [place] Urea nitrogen [Mass/Vol] 19 mg/dL Normal 7-21 [facility] Comment on above: Order Comment: Speci men Type: BLOOD SPECIMENOrdering Facility: [facility] Address: [address] [place] [address] Performed By: #### 1 988-5, 89609-8 ####[facility] LABIA [id number] [place] [address] [place] CASE MGT INIT ASSESon 2024 CASE MGT INIT ASSES Normal [facility] [facility] CBC W Auto Differential pane l (Bld)on 01-03-2025 Basophils (Bld) [#/Vol] 0.04 10*3/uL Normal <0.11 [facility] Comment on above: Order Comment: Speci men Type: BLOOD SPECIMENOrdering Facility: [facility] Address: [address] [place] [address] Performed By: #### 5 7021-8 ####[facility] LABCLIA [id number] [place] [address] [place] Basophils/100 WBC (Bld) 0.6 % Normal [facility] Comment on above: Order Comment: Speci men Type: BLOOD SPECIMENOrdering Facility: [facility] Address: [address] [place] [address] Performed By: #### 5 7021-8 ####[facility] LABCLIA [id number] [place] [address] [place] Differential cell count method Nom (Bld) Auto Normal [facility] Comment on above: Order Comment: Speci men Type: BLOOD SPECIMENOrdering Facility: [facility] Address: [address] [place] [address] Performed By: #### 5 7021-8 ####[facility] LABCLIA [id number] [place] [address] [place] Eosinophils (Bld) [#/Vol] 0.13 10*3/uL Normal <0.46 [facility] Comment on above: Order Comment: Speci men Type: BLOOD SPECIMENOrdering Facility: [facility] Address: [address] [place] [address] Performed By: #### 5 7021-8 ####[facility] LABCLIA [id number] [place] [address] [place] Eosinophils/100 WBC (Bld) 2.0 % Normal [facility] Comment on above: Order Comment: Speci men Type: BLOOD SPECIMENOrdering Facility: [facility] Address: [address] [place] [address] Performed By: #### 5 7021-8 ####[facility] LABCLIA [id number] [place] [address] [place] Erythrocyte distribution width (RBC) [Ratio] 13.6 % Normal 11.5-15.0 [facility] Comment on above: Order Comment: Speci men Type: BLOOD SPECIMENOrdering Facility: [facility] Address: [address] [place] [address] Performed By: #### 5 7021-8 ####[facility] LABCLIA [id number] [place] [address] [place] Hematocrit (Bld) [Volume fraction] 39.0 % Normal 36.0-46.0 [facility] Comment on above: Order Comment: Speci men Type: BLOOD SPECIMENOrdering Facility: [facility] Address: [address] [place] [address] Performed By: #### 5 7021-8 ####[facility] LABCLIA [id number] [place] [address] [place] Hemoglobin (Bld) [Mass/Vol] 12.6 g/dL Normal 11.5-15.5 [facility] Comment on above: Order Comment: Speci men Type: BLOOD SPECIMENOrdering Facility: [facility] Address: [address] [place] [address] Performed By: #### 5 7021-8 ####[facility] LABCLIA [id number] [place] [address] [place] Immature granulocytes (Bld) [#/Vol] 0.08 10*3/uL Normal <0.10 [facility] Comment on above: Order Comment: Speci men Type: BLOOD SPECIMENOrdering Facility: [facility] Address: [address] [place] [address] Performed By: #### 5 7021-8 ####[facility] LABCLIA [id number] [place] [address] [place] Immature granulocytes/100 WBC (Bld) 1.3 % Normal [facility] Comment on above: Order Comment: Speci men Type: BLOOD SPECIMENOrdering Facility: [facility] Address: [address] [place] [address] Performed By: #### 5 7021-8 ####[facility] LABCLIA [id number] [place] [address] [place] Lymphocytes (Bld) [#/Vol] 3.30 10*3/uL Normal 1.00-4.00 [facility] Comment on above: Order Comment: Speci men Type: BLOOD SPECIMENOrdering Facility: [facility] Address: [address] [place] [address] Performed By: #### 5 7021-8 ####[facility] LABCLIA [id number] [place] [address] [place] Lymphocytes/100 WBC (Bld) 51.9 % Normal [facility] Comment on above: Order Comment: Speci men Type: BLOOD SPECIMENOrdering Facility: [facility] Address: [address] [place] [address] Performed By: #### 5 7021-8 ####[facility] LABCLIA [id number] [place] [address] [place] MCH (RBC) [Entitic mass] 29.2 pg Normal 26.0-34.0 [facility] Comment on above: Order Comment: Speci men Type: BLOOD SPECIMENOrdering Facility: [facility] Address: [address] [place] [address] Performed By: #### 5 7021-8 ####[facility] LABIA [id number] [place] [address] [place] MCHC (RBC) [Mass/Vol] 32.3 g/dL Normal 30.5-36.0 [facility] Comment on above: Order Comment: Speci men Type: BLOOD SPECIMENOrdering Facility: [facility] Address: [address] [place] [address] Performed By: #### 5 7021-8 ####[facility] LABCLIA [id number] [place] [address] [place] MCV (RBC) [Entitic vol] 90.5 fL Normal 80.0-100.0 [facility] Comment on above: Order Comment: Speci men Type: BLOOD SPECIMENOrdering Facility: [facility] Address: [address] [place] [address] Performed By: #### 5 7021-8 ####[facility] LABCLIA [id number] [place] [address] [place] Monocytes (Bld) [#/Vol] 0.46 10*3/uL Normal <0.87 [facility] Comment on above: Order Comment: Speci men Type: BLOOD SPECIMENOrdering Facility: [facility] Address: [address] [place] [address] Performed By: #### 5 7021-8 ####[facility] LABCLIA [id number] [place] [address] [place] Monocytes/100 WBC (Bld) 7.2 % Normal [facility] Comment on above: Order Comment: Speci men Type: BLOOD SPECIMENOrdering Facility: [facility] Address: [address] [place] [address] Performed By: #### 5 7021-8 ####[facility] LABCLIA [id number] [place] [address] [place] Neutrophils (Bld) [#/Vol] 2.35 10*3/uL Normal 1.45-7.50 [facility] Comment on above: Order Comment: Speci men Type: BLOOD SPECIMENOrdering Facility: [facility] Address: [address] [place] [address] Performed By: #### 5 7021-8 ####[facility] LABCLIA [id number] [place] [address] [place] Neutrophils/100 WBC (Bld) 37.0 % Normal [facility] Comment on above: Order Comment: Speci men Type: BLOOD SPECIMENOrdering Facility: [facility] Address: [address] [place] [address] Performed By: #### 5 7021-8 ####[facility] LABCLIA [id number] [place] [address] [place] Nucleated RBC (Bld) [#/Vol] 10*3/uL Normal <0.01 [facility] Comment on above: Order Comment: Speci men Type: BLOOD SPECIMENOrdering Facility: [facility] Address: [address] [place] [address] Performed By: #### 5 7021-8 ####[facility] [id number] [place] [address] [place] Nucleated RBC/100 WBC (Bld) [Ratio] 0.0 /100 WBC Normal [facility] Comment on above: Order Comment: Speci men Type: BLOOD SPECIMENOrdering Facility: [facility] Address: [address] [place] [address] Performed By: #### 5 7021-8 ####[facility] [id number] [place] [address] [place] Platelet mean volume (Bld) [Entitic vol] 10.3 fL Normal 9.0-12.7 [facility] Comment on above: Order Comment: Speci men Type: BLOOD SPECIMENOrdering Facility: [facility] Address: [address] [place] [address] Performed By: #### 5 7021-8 ####[facility] [id number] [place] [address] [place] Platelets (Bld) [#/Vol] 273 10*3/uL Normal 150-400 [facility] Comment on above: Order Comment: Speci men Type: BLOOD SPECIMENOrdering Facility: [facility] Address: [address] [place] [address] Performed By: #### 5 7021-8 ####[facility] LABIA [id number] [place] [address] [place] RBC (Bld) [#/Vol] 4.31 10*6/uL Normal 3.90-5.20 [facility] Comment on above: Order Comment: Speci men Type: BLOOD SPECIMENOrdering Facility: [facility] Address: [address] [place] [address] Performed By: #### 5 7021-8 ####[facility] LABCLIA [id number] [place] [address] [place] WBC (Bld) [#/Vol] 6.36 10*3/uL Normal 3.70-11.00 [facility] Comment on above: Order Comment: Speci men Type: BLOOD SPECIMENOrdering Facility: [facility] Address: [address] [place] [address] Performed By: #### 5 7021-8 ####[facility] LABCLIA [id number] [place] [address] [place] CONSULT PROGon 01-03-2025 CONSULT PROG Normal [facility] CRP SerPl-mCncon 01-03-2025 CRP [Mass/Vol] 2.5 mg/dL High <0.9 [facility] Comment on above: Order Comment: Speci men Type: BLOOD SPECIMENOrdering Facility: [facility] Address: [address] [place] [address] Performed By: #### 1 988-5, 35603-1 ####[facility] LABCLIA [id number] [place] [address] [place] Bacteria Bld Culton 01-02-20 25 Bacteria identified Cx Nom (Bld) CULTURE, BLOOD: No growth 5 days Normal [facility] Comment on above: Performed By: #### 6 00-7 ####[facility] LABCLIA [id number] [place] [address] [place] Bacteria identified Cx Nom (Bld) Normal [facility] Comment on above: Performed By: #### I DBCGP, 600-7 ####[facility] LABCLIA [id number] [place] [address] [place] Bacteria Wnd Culton 01-02-20 25 Bacteria identified Cx Nom (Wound) Abnormal [facility] Comment on above: Performed By: #### 6 462-6 ####[facility] LABCLIA [id number] [place] [address] [place] CONSULTon 01-02-2025 CONSULT Normal [facility] CONSULT PROGon 01-02-2025 CONSULT PROG Normal [facility] CT CHEST W IVCONon 5 CT CHEST W IVCON Invalid Interpretation Code [facility] ED NOTEon 01-02-2025 ED NOTE HNO ID: [id number] Author: KILLIAN RUIZ,, RN Service: Nursing Author Type: Registered Nurse Type: ED Notes Filed: 01/02/2025 12:42 Note Text: Infectious disease consult MD at bedside. Obtaining culture from L breast. Normal [facility] ED NOTE Normal [facility] ED NOTE Normal [facility] ED NOTE Normal [facility] GRAM POSITIVE ORGANISM ID BY [employer])on 01-02-2025 GRAM POSITIVE ORGANISM ID BY [employer]) Abnormal [facility] Comment on above: Performed By: #### I DBC, 600-7 ####[facility] LABCLIA [id number] [place] [address] [place] HISTORY PHYSICALon HISTORY PHYSICAL Normal [facility] STAPHYLOCOCCUS AUREUS AND MR SA SCREEN, PCR, NASALon 01-02-2025 S. aureus and MRSA panel LAURA+probe (Nose) Not detected Normal Not Detected [facility] Comment on above: Order Comment: Speci men Type: SWABOrdering Facility: [facility] Address: [address] [place] [address] Performed By: #### S APCR ####[facility] LABIA [id number] [place] [address] [place] CBC W Auto Differential pane l (Bld)on 01-01-2025 Basophils (Bld) [#/Vol] 0.05 10*3/uL Normal <0.11 [facility] Comment on above: Order Comment: Speci men Type: BLOOD SPECIMENOrdering Facility: [facility] Address: [address] [place] [address] Performed By: #### 5 7021-8, 4536-7 ####[facility] LABCLIA [id number] [place] [address] [place] Basophils/100 WBC (Bld) 0.6 % Normal [facility] Comment on above: Order Comment: Speci men Type: BLOOD SPECIMENOrdering Facility: [facility] Address: [address] [place] [address] Performed By: #### 5 7021-8, 7 ####[facility] LABCLIA [id number] [place] [address] [place] Differential cell count method Nom (Bld) Auto Normal [facility] Comment on above: Order Comment: Speci men Type: BLOOD SPECIMENOrdering Facility: [facility] Address: [address] [place] [address] Performed By: #### 5 7021-8, 7 ####[facility] LABCLIA [id number] [place] [address] [place] Eosinophils (Bld) [#/Vol] 0.14 10*3/uL Normal <0.46 [facility] Comment on above: Order Comment: Speci men Type: BLOOD SPECIMENOrdering Facility: [facility] Address: [address] [place] [address] Performed By: #### 5 7021-8, 7 ####[facility] LABCLIA [id number] [place] [address] [place] Eosinophils/100 WBC (Bld) 1.7 % Normal [facility] Comment on above: Order Comment: Speci men Type: BLOOD SPECIMENOrdering Facility: [facility] Address: [address] [place] [address] Performed By: #### 5 7021-8, 4536-7 ####[facility] LABCLIA [id number] [place] [address] [place] Erythrocyte distribution width (RBC) [Ratio] 13.6 % Normal 11.5-15.0 [facility] Comment on above: Order Comment: Speci men Type: BLOOD SPECIMENOrdering Facility: [facility] Address: [address] [place] [address] Performed By: #### 5 7021-8, 4537-7 ####[facility] LABCLIA [id number] [place] [address] [place] Hematocrit (Bld) [Volume fraction] 38.0 % Normal 36.0-46.0 [facility] Comment on above: Order Comment: Speci men Type: BLOOD SPECIMENOrdering Facility: [facility] Address: [address] [place] [address] Performed By: #### 5 7021-8, 4537-7 ####[facility] LABCLIA [id number] [place] [address] [place] Hemoglobin (Bld) [Mass/Vol] 13.1 g/dL Normal 11.5-15.5 [facility] Comment on above: Order Comment: Speci men Type: BLOOD SPECIMENOrdering Facility: [facility] Address: [address] [place] [address] Performed By: #### 5 7021-8, 7-7 ####[facility] LABIA [id number] [place] [address] [place] Immature granulocytes (Bld) [#/Vol] 0.07 10*3/uL Normal <0.10 [facility] Comment on above: Order Comment: Speci men Type: BLOOD SPECIMENOrdering Facility: [facility] Address: [address] [place] [address] Performed By: #### 5 7021-8, 4537-7 ####[facility] LABCLIA [id number] [place] [address] [place] Immature granulocytes/100 WBC (Bld) 0.8 % Normal [facility] Comment on above: Order Comment: Speci men Type: BLOOD SPECIMENOrdering Facility: [facility] Address: [address] [place] [address] Performed By: #### 5 7021-8, 4536-7 ####[facility] LABCLIA [id number] [place] [address] [place] Lymphocytes (Bld) [#/Vol] 3.25 10*3/uL Normal 1.00-4.00 [facility] Comment on above: Order Comment: Speci men Type: BLOOD SPECIMENOrdering Facility: [facility] Address: [address] [place] [address] Performed By: #### 5 7021-8, 4536-7 ####[facility] LABCLIA [id number] [place] [address] [place] Lymphocytes/100 WBC (Bld) 38.3 % Normal [facility] Comment on above: Order Comment: Speci men Type: BLOOD SPECIMENOrdering Facility: [facility] Address: [address] [place] [address] Performed By: #### 5 7021-8, 4536-7 ####[facility] LABCLIA [id number] [place] [address] [place] MCH (RBC) [Entitic mass] 29.6 pg Normal 26.0-34.0 [facility] Comment on above: Order Comment: Speci men Type: BLOOD SPECIMENOrdering Facility: [facility] Address: [address] [place] [address] Performed By: #### 5 7021-8, 4536-7 ####[facility] LABCLIA [id number] [place] [address] [place] MCHC (RBC) [Mass/Vol] 34.5 g/dL Normal 30.5-36.0 [facility] Comment on above: Order Comment: Speci men Type: BLOOD SPECIMENOrdering Facility: [facility] Address: [address] [place] [address] Performed By: #### 5 7021-8, 4536-7 ####[facility] LABCLIA [id number] [place] [address] [place] MCV (RBC) [Entitic vol] 86.0 fL Normal 80.0-100.0 [facility] Comment on above: Order Comment: Speci men Type: BLOOD SPECIMENOrdering Facility: [facility] Address: [address] [place] [address] Performed By: #### 5 7021-8, 7 ####[facility] LABCLIA [id number] [place] [address] [place] Monocytes (Bld) [#/Vol] 0.55 10*3/uL Normal <0.87 [facility] Comment on above: Order Comment: Speci men Type: BLOOD SPECIMENOrdering Facility: [facility] Address: [address] [place] [address] Performed By: #### 5 7021-8, 7 ####[facility] LABCLIA [id number] [place] [address] [place] Monocytes/100 WBC (Bld) 6.5 % Normal [facility] Comment on above: Order Comment: Speci men Type: BLOOD SPECIMENOrdering Facility: [facility] Address: [address] [place] [address] Performed By: #### 5 7021-8, 7 ####[facility] LABCLIA [id number] [place] [address] [place] Neutrophils (Bld) [#/Vol] 4.42 10*3/uL Normal 1.45-7.50 [facility] Comment on above: Order Comment: Speci men Type: BLOOD SPECIMENOrdering Facility: [facility] Address: [address] [place] [address] Performed By: #### 5 7021-8, 7-7 ####[facility] LABCLIA [id number] [place] [address] [place] Neutrophils/100 WBC (Bld) 52.1 % Normal [facility] Comment on above: Order Comment: Speci men Type: BLOOD SPECIMENOrdering Facility: [facility] Address: [address] [place] [address] Performed By: #### 5 7021-8, 4536-7 ####[facility] LABCLIA [id number] [place] [address] [place] Nucleated RBC (Bld) [#/Vol] 10*3/uL Normal <0.01 [facility] Comment on above: Order Comment: Speci men Type: BLOOD SPECIMENOrdering Facility: [facility] Address: [address] [place] [address] Performed By: #### 5 7021-8, 4536-7 ####[facility] LABIA [id number] [place] [address] [place] Nucleated RBC/100 WBC (Bld) [Ratio] 0.0 /100 WBC Normal [facility] Comment on above: Order Comment: Speci men Type: BLOOD SPECIMENOrdering Facility: [facility] Address: [address] [place] [address] Performed By: #### 5 7021-8, 4536-7 ####[facility] LABCLIA [id number] [place] [address] [place] Platelet mean volume (Bld) [Entitic vol] 10.0 fL Normal 9.0-12.7 [facility] Comment on above: Order Comment: Speci men Type: BLOOD SPECIMENOrdering Facility: [facility] Address: [address] [place] [address] Performed By: #### 5 7021-8, 7-7 ####[facility] LABIA [id number] [place] [address] [place] Platelets (Bld) [#/Vol] 252 10*3/uL Normal 150-400 [facility] Comment on above: Order Comment: Speci men Type: BLOOD SPECIMENOrdering Facility: [facility] Address: [address] [place] [address] Performed By: #### 5 7021-8, 4537-7 ####[facility] LABCLIA [id number] [place] [address] [place] RBC (Bld) [#/Vol] 4.42 10*6/uL Normal 3.90-5.20 [facility] Comment on above: Order Comment: Speci men Type: BLOOD SPECIMENOrdering Facility: [facility] Address: [address] [place] [address] Performed By: #### 5 7021-8, 4537-7 ####[facility] LABCLIA [id number] [place] [address] [place] WBC (Bld) [#/Vol] 8.48 10*3/uL Normal 3.70-11.00 [facility] Comment on above: Order Comment: Speci men Type: BLOOD SPECIMENOrdering Facility: [facility] Address: [address] [place] [address] Performed By: #### 5 7021-8, 4537-7 ####[facility] LABCLIA [id number] [place] [address] [place] CONSULT PROGon 01-01-2025 CONSULT PROG Normal [facility] CRP SerPl-mCncon 01-01-2025 CRP [Mass/Vol] 5.9 mg/dL High <0.9 [facility] Comment on above: Order Comment: Speci men Type: BLOOD SPECIMENOrdering Facility: [facility] Address: [address] [place] [address] Performed By: #### 2 4323-8, 1987-5, 46290-6, 12390-6 ####[facility] LABCLIA [id number] [address] [address] [place] Comprehensive metabolic 2000 panelon 01-01-2025 Albumin [Mass/Vol] 4.3 g/dL Normal 3.9-4.9 [facility] Comment on above: Order Comment: Speci men Type: BLOOD SPECIMENOrdering Facility: [facility] Address: [address] [place] [address] Performed By: #### 2 4323-8, 1988-03, , ####[facility] LABIA [id number] [place] [address] [place] ALP [Catalytic activity/Vol] 129 U/L High 34-123 [facility] Comment on above: Order Comment: Speci men Type: BLOOD SPECIMENOrdering Facility: [facility] Address: [address] [place] [address] Performed By: #### 2 4323-8, 1988-03, , ####[facility] [id number] [place] [id number] [place] ALT [Catalytic activity/Vol] 28 U/L Normal 7-38 [facility] Comment on above: Order Comment: Speci men Type: BLOOD SPECIMENOrdering Facility: [facility] Address: [address] [place] [address] Performed By: #### 2 4323-8, 1988-03, , ####[facility] [id number] [address] [address] [place] Anion gap [Moles/Vol] 13 mmol/L Normal 8-15 [facility] Comment on above: Order Comment: Speci men Type: BLOOD SPECIMENOrdering Facility: [facility] Address: [address] [place] [address] Performed By: #### 2 4323-8, 1988-03, , ####[facility] LABCLIA [id number] [address] [address] [place] AST [Catalytic activity/Vol] 21 U/L Normal 13-35 [facility] Comment on above: Order Comment: Speci men Type: BLOOD SPECIMENOrdering Facility: [facility] Address: [address] [place] [address] Performed By: #### 2 4323-8, 1988-03, , 44778-3 ####[facility] LABIA [id number] [address] [address] [place] Bilirubin [Mass/Vol] 0.3 mg/dL Normal 0.2-1.3 [facility] Center Comment on above: Order Comment: Speci men Type: BLOOD SPECIMENOrdering Facility: [facility] Address: [address] [place] [address] Performed By: #### 2 43238, 1988-03, , ####[facility] LABIA [id number] [address] [address] [place] Calcium [Mass/Vol] 9.4 mg/dL Normal 8.5-10.2 [facility] Comment on above: Order Comment: Speci men Type: BLOOD SPECIMENOrdering Facility: [facility] Address: [address] [place] [address] Performed By: #### 2 43238, 1988-03, , ####[facility] LABIA [id number] [address] [address] [place] Chloride [Moles/Vol] 105 mmol/L Normal 98-107 [facility] Comment on above: Order Comment: Speci men Type: BLOOD SPECIMENOrdering Facility: [facility] Address: [address] [place] [address] Performed By: #### 2 4323-8, 1988-03, , ####[facility] LABCLIA [id number] [address] [address] [place] CO2 [Moles/Vol] 22 mmol/L Normal 22-30 [facility] Comment on above: Order Comment: Speci men Type: BLOOD SPECIMENOrdering Facility: [facility] Address: [address] [place] [address] Performed By: #### 2 4323-8, 1988-03, , ####[facility] LABIA [id number] [address] [address] [place] Creatinine [Mass/Vol] 0.82 mg/dL Normal 0.58-0.96 [facility] Comment on above: Order Comment: Speci men Type: BLOOD SPECIMENOrdering Facility: [facility] Address: [address] [place] [address] Performed By: #### 2 43238, 1988-03, , ####[facility] [id number] [place] [id number] [place] Creatinine and Glomerular filtration rate.predicted panel (S/P/Bld) 97 mL/min/1.73m??? Normal >=60 [facility] Comment on above: Order Comment: Speci men Type: BLOOD SPECIMENOrdering Facility: [facility] Address: [address] [place] [address] Result Comment: Anne-Marie mated Glomerular Filtration Rate [...] Performed By: #### 2 4323-8, 1988-03, , ####[facility] LABIA [id number] [address] [address] [place] Glucose [Mass/Vol] 94 mg/dL Normal 74-99 [facility] Comment on above: Order Comment: Speci men Type: BLOOD SPECIMENOrdering Facility: [facility] Address: [address] [place] [address] Result Comment: The [place] [employer] (ADA) provides guidance for cutoff [...] Standards of Medical Care in Diabetes 2016, [employer]. Diabetes Care. 2016.39(Suppl 1). Performed By: #### 2 4328, , ####[facility] LABCLIA [id number] [place] [address] [place] Potassium [Moles/Vol] 3.8 mmol/L Normal 3.7-5.1 [facility] Comment on above: Order Comment: Speci men Type: BLOOD SPECIMENOrdering Facility: [facility] Address: [address] [place] [address] Performed By: #### 2 4328, , ####[facility] LABCLIA [id number] [place] [id number] [place] Protein [Mass/Vol] 6.9 g/dL Normal 6.3-8.0 [facility] Comment on above: Order Comment: Speci men Type: BLOOD SPECIMENOrdering Facility: [facility] Address: [address] [place] [address] Performed By: #### 2 4323-8, 1988-03, , ####[facility] LABCLIA [id number] [address] [address] [place] Sodium [Moles/Vol] 140 mmol/L Normal 136-144 [facility] Comment on above: Order Comment: Speci men Type: BLOOD SPECIMENOrdering Facility: [facility] Address: [address] [place] [address] Performed By: #### 2 4323-8, 1988-03, , 01066-5 ####[facility] LABCLIA [id number] [address] [address] [place] Urea nitrogen [Mass/Vol] 11 mg/dL Normal 7-21 [facility] Comment on above: Order Comment: Speci men Type: BLOOD SPECIMENOrdering Facility: [facility] Address: [address] [place] [address] Performed By: #### 2 4323-8, 1988-03, , 97053-0 ####[facility] LABCLIA [id number] [address] [address] [place] ED NOTEon 01-01-2025 ED NOTE HNO ID: [id number] Author: KIM ESCOBAR CT Service: Emergency Medicine Author Type: Clinical Speech Coach Type: ED Notes Filed: 01/01/2025 21:49 Note Text: Taking pt vs allergy band placed on pt wrist Normal [facility] ED PROV NOTEon 01-01-2025 ED PROV NOTE Normal [facility] ED Triage Noteon 01-01-2025 ED Triage Note Normal [facility] ESR Westergren method (Bld) [Velocity]on 01-01-2025 ESR (Bld) [Velocity] 25 mm/h High 0-20 [facility] Comment on above: Order Comment: Speci men Type: BLOOD SPECIMENOrdering Facility: [facility] Address: [address] [place] [address] Performed By: #### 5 7021-8, 4537-7 ####[facility] LABCLIA [id number] [place] [id number] [place] Magnesium SerPl-mCncon 01-01 Magnesium [Mass/Vol] 2.3 mg/dL Normal 1.7-2.3 [facility] Comment on above: Order Comment: Speci men Type: BLOOD SPECIMENOrdering Facility: [facility] Address: [address] [place] [address] Performed By: #### 2 4323-8, 1988-03, , ####[facility] LABCLIA [id number] [place] [address] [place] Procalcitonin SerPl-mCncon 0 01-01-2025 Procalcitonin [Mass/Vol] ng/mL Normal <0.09 [facility] Comment on above: Order Comment: Speci men Type: BLOOD SPECIMENOrdering Facility: [facility] Address: [address] [place] [address] Result Comment: For a guided interpretation of test results, please visit the Change in Procalcitonin Calculator, [email or web address]. Performed By: #### 2 4323-8, 1988-03, , 93450-2 ####[facility] LABCLIA [id number] [place] [id number] [place] SEPSIS LACTATE W/ REFLEX (IN ITIAL)on 01-01-2025 Lactate [Moles/Vol] 1.0 mmol/L Normal <=2.0 [facility] Comment on above: Order Comment: Speci men Type: BLOOD SPECIMENOrdering Facility: [facility] Address: [address] [place] [address] Performed By: #### S LACTR ####[facility] LABCLIA [id number] [place] [id number] [place] CBC W Auto Differential pane l (Bld)on 12-31-2024 Basophils (Bld) [#/Vol] 0.03 10*3/uL Normal <0.11 [facility] Comment on above: Order Comment: Speci men Type: BLOOD SPECIMENOrdering Facility: [facility] Address: [address] [place] [address] Performed By: #### 5 7021-8 ####[facility] LWCLIA [id number] [place] [id number] [place] Basophils/100 WBC (Bld) 0.2 % Normal [facility] Comment on above: Order Comment: Speci men Type: BLOOD SPECIMENOrdering Facility: [facility] Address: [address] [place] [address] Performed By: #### 5 7021-8 ####[facility] LWCLIA [id number] [place] [address] [place] Differential cell count method Nom (Bld) Auto Normal [facility] Comment on above: Order Comment: Speci men Type: BLOOD SPECIMENOrdering Facility: [facility] Address: [address] [place] [address] Performed By: #### 5 7021-8 ####[facility] LWCLIA [id number] [place] [address] [place] Eosinophils (Bld) [#/Vol] 0.07 10*3/uL Normal <0.46 [facility] Comment on above: Order Comment: Speci men Type: BLOOD SPECIMENOrdering Facility: [facility] Address: [address] [place] [address] Performed By: #### 5 7021-8 ####[facility] LWCLIA [id number] [place] [id number] [place] Eosinophils/100 WBC (Bld) 0.5 % Normal [facility] Comment on above: Order Comment: Speci men Type: BLOOD SPECIMENOrdering Facility: [facility] Address: [address] [place] [address] Performed By: #### 5 7021-8 ####[facility] LWCLIA [id number] [place] [id number] [place] Erythrocyte distribution width (RBC) [Ratio] 13.8 % Normal 11.5-15.0 [facility] Comment on above: Order Comment: Speci men Type: BLOOD SPECIMENOrdering Facility: [facility] Address: [address] [place] [address] Performed By: #### 5 7021-8 ####[facility] LWIA [id number] [place] [address] [place] Hematocrit (Bld) [Volume fraction] 39.6 % Normal 36.0-46.0 [facility] Comment on above: Order Comment: Speci men Type: BLOOD SPECIMENOrdering Facility: [facility] Address: [address] [place] [address] Performed By: #### 5 7021-8 ####[facility] [id number] [place] [address] [place] Hemoglobin (Bld) [Mass/Vol] 13.3 g/dL Normal 11.5-15.5 [facility] Comment on above: Order Comment: Speci men Type: BLOOD SPECIMENOrdering Facility: [facility] Address: [address] [place] [address] Performed By: #### 5 7021-8 ####[facility] LWCLIA [id number] [place] [id number] [place] Immature granulocytes (Bld) [#/Vol] 0.09 10*3/uL Normal <0.10 [facility] Comment on above: Order Comment: Speci men Type: BLOOD SPECIMENOrdering Facility: [facility] Address: [address] [place] [address] Performed By: #### 5 7021-8 ####[facility] LWCLIA [id number] [place] [address] [place] Immature granulocytes/100 WBC (Bld) 0.7 % Normal [facility] Comment on above: Order Comment: Speci men Type: BLOOD SPECIMENOrdering Facility: [facility] Address: [address] [place] [address] Performed By: #### 5 7021-8 ####[facility] LWCLIA [id number] [place] [id number] [place] [facility] Lymphocytes (Bld) [#/Vol] 3.17 10*3/uL Normal 1.00-4.00 [facility] Comment on above: Order Comment: Speci men Type: BLOOD SPECIMENOrdering Facility: [facility] Address: [address] [place] [address] Performed By: #### 5 7021-8 ####[facility] LWCLIA [id number] [place] [address] [facility] Lymphocytes/100 WBC (Bld) 24.7 % Normal [facility] Comment on above: Order Comment: Speci men Type: BLOOD SPECIMENOrdering Facility: [facility] Address: [address] [place] [address] Performed By: #### 5 7021-8 ####[facility] LWCLIA [id number] [place] [id number] [place] MCH (RBC) [Entitic mass] 29.8 pg Normal 26.0-34.0 [facility] Comment on above: Order Comment: Speci men Type: BLOOD SPECIMENOrdering Facility: [facility] Address: [address] [place] [address] Performed By: #### 5 7021-8 ####[facility] LWCLIA [id number] [place] [id number] [place] MCHC (RBC) [Mass/Vol] 33.6 g/dL Normal 30.5-36.0 [facility] Comment on above: Order Comment: Speci men Type: BLOOD SPECIMENOrdering Facility: [facility] Address: [address] [place] [address] Performed By: #### 5 7021-8 ####[facility] LWCLIA [id number] [place] [id number] [place] MCV (RBC) [Entitic vol] 88.6 fL Normal 80.0-100.0 [facility] Comment on above: Order Comment: Speci men Type: BLOOD SPECIMENOrdering Facility: [facility] Address: [address] [place] [address] Performed By: #### 5 7021-8 ####[facility] LWCLIA [id number] [place] [id number] [place] Monocytes (Bld) [#/Vol] 0.76 10*3/uL Normal <0.87 [facility] Comment on above: Order Comment: Speci men Type: BLOOD SPECIMENOrdering Facility: [facility] Address: [address] [place] [address] Performed By: #### 5 7021-8 ####[facility] LWCLIA [id number] [address] [place] Monocytes/100 WBC (Bld) 5.9 % Normal [facility] Comment on above: Order Comment: Speci men Type: BLOOD SPECIMENOrdering Facility: [facility] Address: [address] [place] [address] Performed By: #### 5 7021-8 ####[facility] LWCLIA [id number] [place] [id number] [place] Neutrophils (Bld) [#/Vol] 8.72 10*3/uL High 1.45-7.50 [facility] Comment on above: Order Comment: Speci men Type: BLOOD SPECIMENOrdering Facility: [facility] Address: [address] [place] [address] Performed By: #### 5 7021-8 ####[facility] LWCLIA [id number] [place] [id number] [place] Neutrophils/100 WBC (Bld) 68.0 % Normal [facility] Comment on above: Order Comment: Speci men Type: BLOOD SPECIMENOrdering Facility: [facility] Address: [address] [place] [address] Performed By: #### 5 7021-8 ####[facility] LWCLIA [id number] [place] [id number] [place] [facility] [place] Nucleated RBC (Bld) [#/Vol] 10*3/uL Normal <0.01 [facility] Comment on above: Order Comment: Speci men Type: BLOOD SPECIMENOrdering Facility: [facility] Address: [address] [place] [address] Performed By: #### 5 7021-8 ####[facility] LWCLIA [id number] [address] [place] Nucleated RBC/100 WBC (Bld) [Ratio] 0.0 /100 WBC Normal [facility] Comment on above: Order Comment: Speci men Type: BLOOD SPECIMENOrdering Facility: [facility] Address: [address] [place] [address] Performed By: #### 5 7021-8 ####[facility] LWCLIA [id number] [place] [id number] [place] Platelet mean volume (Bld) [Entitic vol] 9.7 fL Normal 9.0-12.7 [facility] Comment on above: Order Comment: Speci men Type: BLOOD SPECIMENOrdering Facility: [facility] Address: [address] [place] [address] Performed By: #### 5 7021-8 ####[facility] LWCLIA [id number] [place] [id number] [place] Platelets (Bld) [#/Vol] 259 10*3/uL Normal 150-400 [facility] Comment on above: Order Comment: Speci men Type: BLOOD SPECIMENOrdering Facility: [facility] Address: [address] [place] [address] Performed By: #### 5 7021-8 ####[facility] LWCLIA [id number] [place] [id number] [place] RBC (Bld) [#/Vol] 4.47 10*6/uL Normal 3.90-5.20 [facility] Comment on above: Order Comment: Speci men Type: BLOOD SPECIMENOrdering Facility: [facility] Address: [address] [place] [address] Performed By: #### 5 7021-8 ####[facility] LWCLIA [id number] [place] [address] [place] WBC (Bld) [#/Vol] 12.84 10*3/uL High 3.70-11.00 [facility] Comment on above: Order Comment: Speci men Type: BLOOD SPECIMENOrdering Facility: [facility] Address: [address] [place] [address] Performed By: #### 5 7021-8 ####[facility] [id number] [place] [id number] [place] Comprehensive metabolic 2000 panelon 12-31-2024 Albumin [Mass/Vol] 4.4 g/dL Normal 3.9-4.9 [facility] Comment on above: Order Comment: Speci men Type: BLOOD SPECIMENOrdering Facility: [facility] Address: [address] [place] [address] Performed By: #### 2 4323-8, 50094-5 ####[facility] LWCLIA [id number] [place] [id number] [place] ALP [Catalytic activity/Vol] 145 U/L High 34-123 [facility] Comment on above: Order Comment: Speci men Type: BLOOD SPECIMENOrdering Facility: [facility] Address: [address] [place] [address] Performed By: #### 2 4323-8, 68265-7 ####[facility] LWCLIA [id number] [place] [id number] [place] ALT [Catalytic activity/Vol] 27 U/L Normal 7-38 [facility] Comment on above: Order Comment: Speci men Type: BLOOD SPECIMENOrdering Facility: [facility] Address: [address] [place] [address] Performed By: #### 2 4323-8, ####[facility] LWCLIA [id number] [place] [address] [place] Anion gap [Moles/Vol] 13 mmol/L Normal 8-15 [facility] Comment on above: Order Comment: Speci men Type: BLOOD SPECIMENOrdering Facility: [facility] Address: [address] [place] [id number] Performed By: #### 2 4322-8, ####[facility] LWCLIA [id number] [place] [address] [place] AST [Catalytic activity/Vol] 18 U/L Normal 13-35 [facility] Comment on above: Order Comment: Speci men Type: BLOOD SPECIMENOrdering Facility: [facility] Address: [address] [place], [place] [address] Performed By: #### 2 4323-06, ####[facility] LWCLIA [id number] [place] [address] [place] Bilirubin [Mass/Vol] 0.5 mg/dL Normal 0.2-1.3 [facility] Comment on above: Order Comment: Speci men Type: BLOOD SPECIMENOrdering Facility: [facility] Address: [address] [place] [address] Performed By: #### 2 4328, ####[facility] LWCLIA [id number] [place] [id number] [place] Calcium [Mass/Vol] 9.2 mg/dL Normal 8.5-10.2 [facility] Comment on above: Order Comment: Speci men Type: BLOOD SPECIMENOrdering Facility: [facility] Address: [address] [place] [address] Performed By: #### 2 4323-8, ####[facility] LWCLIA [id number] [place] [address] [place] Chloride [Moles/Vol] 99 mmol/L Normal 98-107 [facility] Comment on above: Order Comment: Speci men Type: BLOOD SPECIMENOrdering Facility: [facility] Address: [address] [place] [address] Performed By: #### 2 4323-8, ####[facility] LWCLIA [id number] [place] [id number] [place] CO2 [Moles/Vol] 26 mmol/L Normal 22-30 [facility] Comment on above: Order Comment: Speci men Type: BLOOD SPECIMENOrdering Facility: [facility] Address: [address] [place] [address] Performed By: #### 2 4323-8, ####[facility] LWCLIA [id number] [place] [address] [place] Creatinine [Mass/Vol] 0.86 mg/dL Normal 0.58-0.96 [facility] Comment on above: Order Comment: Speci men Type: BLOOD SPECIMENOrdering Facility: [facility] Address: [address] [place] [address] Performed By: #### 2 4323-8, ####[facility] LWCLIA [id number] [place] [phone] [facility] Creatinine and Glomerular filtration rate.predicted panel (S/P/Bld) 92 mL/min/1.73m??? Normal >=60 [facility] Comment on above: Order Comment: Speci men Type: BLOOD SPECIMENOrdering Facility: [facility] Address: [address] [place] [address] Result Comment: Anne-Marie mated Glomerular Filtration Rate [...] actual GFR. Performed By: #### 2 4323-8, ####[facility] LWCLIA [id number] [place] [address] [place] Glucose [Mass/Vol] 116 mg/dL High 74-99 [facility] Comment on above: Order Comment: Speci men Type: BLOOD SPECIMENOrdering Facility: [facility] Address: [address] [place] [address] Result Comment: The [place] [employer] (ADA) provides guidance for cutoff [...] Standards of Medical Care in Diabetes 2016, [place] [employer]. Diabetes Care. 2016.39(Suppl 1). Performed By: #### 2 4323-8, ####[facility] LWCLIA [id number] [place] [address] [place] Potassium [Moles/Vol] 3.8 mmol/L Normal 3.7-5.1 [facility] Comment on above: Order Comment: Speci men Type: BLOOD SPECIMENOrdering Facility: [facility] Address: [address] [place] [address] Performed By: #### 2 4323-8, ####[facility] LWCLIA [id number] [place] [address] [place] Protein [Mass/Vol] 7.2 g/dL Normal 6.3-8.0 [facility] Comment on above: Order Comment: Speci men Type: BLOOD SPECIMENOrdering Facility: [facility] Address: [address] [place] [address] Performed By: #### 2 4323-8, ####[facility] LWCLIA [id number] [place] [address] [place] Sodium [Moles/Vol] 138 mmol/L Normal 136-144 [facility] Comment on above: Order Comment: Speci men Type: BLOOD SPECIMENOrdering Facility: [facility] Address: [address] [place], [place] [address] Performed By: #### 2 4323-8, ####[facility] LWCLIA [id number] [place] [address] [place] Urea nitrogen [Mass/Vol] 10 mg/dL Normal 7-21 [facility] Comment on above: Order Comment: Speci men Type: BLOOD SPECIMENOrdering Facility: [facility] Address: [address] [place], [place] [address] Performed By: #### 2 4323-8, ####[facility] LWCLIA [id number] [place] [id number] [place] ED NOTEon 12-31-2024 ED NOTE HNO ID: [id number] Author: PILO FREGOSO RN Service: Emergency Medicine Author Type: Registered Nurse Type: ED Notes Filed: 12/31/2024 19:45 Note Text: Ultrasound at bedside. Normal [facility] ED PROV NOTEon 12-31-2024 ED PROV NOTE Normal [facility] Magnesium SerPl-mCncon 12-31 Magnesium [Mass/Vol] 2.3 mg/dL Normal 1.7-2.3 [facility] Comment on above: Order Comment: Speci men Type: BLOOD SPECIMENOrdering Facility: [facility] Address: [address] [place] [address] Performed By: #### 2 4323-8, ####[facility] LWCLIA [id number] [place] [address] [place] US CHEST WALL/SOFT TISSUEon 12-31-2024 US CHEST WALL/SOFT TISSUE Invalid Interpretation Code [facility] CNOVon 12-20-2024 CNOV Normal [facility] ED NOTEon 11-30-2024 ED NOTE Normal [facility] ED Triage Noteon 11-30-2024 ED Triage Note Normal [facility] CBC W Auto Differential pane l (Bld)on 11-09-2024 Basophils (Bld) [#/Vol] 0.03 10*3/uL Normal <0.11 [facility] Comment on above: Order Comment: Speci men Type: BLOOD SPECIMENOrdering Facility: [facility] Address: [address] [place] [address] Performed By: #### 5 7021-8 ####[facility] LWCLIA [id number] [place] [address] [place] Basophils/100 WBC (Bld) 0.4 % Normal [facility] Comment on above: Order Comment: Speci men Type: BLOOD SPECIMENOrdering Facility: [facility] Address: [address] [place] [address] Performed By: #### 5 7021-8 ####[facility] LWCLIA [id number] [place] [address] [place] Differential cell count method Nom (Bld) Auto Normal [facility] Comment on above: Order Comment: Speci men Type: BLOOD SPECIMENOrdering Facility: [facility] Address: [address] [place] [address] Performed By: #### 5 7021-8 ####[facility] [facility] LWCLIA [id number] [place] [address] [place] Eosinophils (Bld) [#/Vol] 0.11 10*3/uL Normal <0.46 [facility] Comment on above: Order Comment: Speci men Type: BLOOD SPECIMENOrdering Facility: [facility] Address: [address] [place] [address] Performed By: #### 5 7021-8 ####[facility] LWCLIA [id number] [address] [place] Eosinophils/100 WBC (Bld) 1.6 % Normal [facility] Comment on above: Order Comment: Speci men Type: BLOOD SPECIMENOrdering Facility: [facility] Address: [address] [place] [address] Performed By: #### 5 7021-8 ####[facility] LWCLIA [id number] [place] [address] [place] Erythrocyte distribution width (RBC) [Ratio] 13.3 % Normal 11.5-15.0 [facility] Comment on above: Order Comment: Speci men Type: BLOOD SPECIMENOrdering Facility: [facility] Address: [address] [place] [address] Performed By: #### 5 7021-8 ####[facility] LWIA [id number] [address] [place] Hematocrit (Bld) [Volume fraction] 42.5 % Normal 36.0-46.0 [facility] Comment on above: Order Comment: Speci men Type: BLOOD SPECIMENOrdering Facility: [facility] Address: [address] [place] [address] Performed By: #### 5 7021-8 ####[facility] LWIA [id number] [address] [place] Hemoglobin (Bld) [Mass/Vol] 14.1 g/dL Normal 11.5-15.5 [facility] Comment on above: Order Comment: Speci men Type: BLOOD SPECIMENOrdering Facility: [facility] Address: [address] [place] [address] Performed By: #### 5 7021-8 ####[facility] LWIA [id number] [place] [address] [place] Immature granulocytes (Bld) [#/Vol] 0.05 10*3/uL Normal <0.10 [facility] Comment on above: Order Comment: Speci men Type: BLOOD SPECIMENOrdering Facility: [facility] Address: [address] [place] [address] Performed By: #### 5 7021-8 ####[facility] LWCLIA [id number] [place] [address] [facility] Immature granulocytes/100 WBC (Bld) 0.7 % Normal [facility] Comment on above: Order Comment: Speci men Type: BLOOD SPECIMENOrdering Facility: [facility] Address: [address] [place] [address] Performed By: #### 5 7021-8 ####[facility] LWCLIA [id number] [place] [address] [place] Lymphocytes (Bld) [#/Vol] 2.61 10*3/uL Normal 1.00-4.00 [facility] Comment on above: Order Comment: Speci men Type: BLOOD SPECIMENOrdering Facility: [facility] Address: [address] [place] [address] Performed By: #### 5 7021-8 ####[facility] LWIA [id number] [address] [place] [facility] Lymphocytes/100 WBC (Bld) 37.3 % Normal [facility] Comment on above: Order Comment: Speci men Type: BLOOD SPECIMENOrdering Facility: [facility] Address: [address] [place] [address] Performed By: #### 5 7021-8 ####[facility] LWCLIA [id number] [place] [id number] [place] MCH (RBC) [Entitic mass] 28.7 pg Normal 26.0-34.0 [facility] Comment on above: Order Comment: Speci men Type: BLOOD SPECIMENOrdering Facility: [facility] Address: [address] [place] [address] Performed By: #### 5 7021-8 ####[facility] LWCLIA [id number] [place] [address] [place] MCHC (RBC) [Mass/Vol] 33.2 g/dL Normal 30.5-36.0 [facility] Comment on above: Order Comment: Speci men Type: BLOOD SPECIMENOrdering Facility: [facility] Address: [address] [place] [address] Performed By: #### 5 7021-8 ####[facility] LWCLIA [id number] [place] [address] [place] MCV (RBC) [Entitic vol] 86.6 fL Normal 80.0-100.0 [facility] Comment on above: Order Comment: Speci men Type: BLOOD SPECIMENOrdering Facility: [facility] Address: [address] [place] [address] Performed By: #### 5 7021-8 ####[facility] LWCLIA [id number] [place] [address] [place] Monocytes (Bld) [#/Vol] 0.58 10*3/uL Normal <0.87 [facility] Comment on above: Order Comment: Speci men Type: BLOOD SPECIMENOrdering Facility: [facility] Address: [address] [place] [address] Performed By: #### 5 7021-8 ####[facility] LWCLIA [id number] [place] [id number] [place] Monocytes/100 WBC (Bld) 8.3 % Normal [facility] Comment on above: Order Comment: Speci men Type: BLOOD SPECIMENOrdering Facility: [facility] Address: [address] [place] [address] Performed By: #### 5 7021-8 ####[facility] LWCLIA [id number] [place] [address] [place] Neutrophils (Bld) [#/Vol] 3.62 10*3/uL Normal 1.45-7.50 [facility] Comment on above: Order Comment: Speci men Type: BLOOD SPECIMENOrdering Facility: [facility] Address: [address] [place] [address] Performed By: #### 5 7021-8 ####[facility] LWCLIA [id number] [place] [id number] [place] Neutrophils/100 WBC (Bld) 51.7 % Normal [facility] Comment on above: Order Comment: Speci men Type: BLOOD SPECIMENOrdering Facility: [facility] Address: [address] [place] [address] Performed By: #### 5 7021-8 ####[facility] LWCLIA [id number] [place] [phone] [place] Nucleated RBC (Bld) [#/Vol] 10*3/uL Normal <0.01 [facility] Comment on above: Order Comment: Speci men Type: BLOOD SPECIMENOrdering Facility: [facility] Address: [address] [place] [address] Performed By: #### 5 7021-8 ####[facility] LWCLIA [id number] [place] [address] [place] Nucleated RBC/100 WBC (Bld) [Ratio] 0.0 /100 WBC Normal [facility] Comment on above: Order Comment: Speci men Type: BLOOD SPECIMENOrdering Facility: [facility] Address: [address] [place] [address] Performed By: #### 5 7021-8 ####[facility] LWCLIA [id number] [place] [address] [place] Platelet mean volume (Bld) [Entitic vol] 9.9 fL Normal 9.0-12.7 [facility] Comment on above: Order Comment: Speci men Type: BLOOD SPECIMENOrdering Facility: [facility] Address: [address] [place] [address] Performed By: #### 5 7021-8 ####[facility] LWCLIA [id number] [place] [phone] [place] Platelets (Bld) [#/Vol] 257 10*3/uL Normal 150-400 [facility] Comment on above: Order Comment: Speci men Type: BLOOD SPECIMENOrdering Facility: [facility] Address: [address] [place] [address] Performed By: #### 5 7021-8 ####[facility] LWCLIA [id number] [place] [phone] [place] [facility] RBC (Bld) [#/Vol] 4.91 10*6/uL Normal 3.90-5.20 [facility] Comment on above: Order Comment: Speci men Type: BLOOD SPECIMENOrdering Facility: [facility] Address: [address] [place] [address] Performed By: #### 5 7021-8 ####[facility] LWCLIA [id number] [place] [address] [facility] OF [facility] WBC (Bld) [#/Vol] 7.00 10*3/uL Normal 3.70-11.00 [facility] Comment on above: Order Comment: Speci men Type: BLOOD SPECIMENOrdering Facility: [facility] Address: [address] [place] [address] Performed By: #### 5 7021-8 ####[facility] LWCLIA [id number] [place] [phone] [place] [facility] Comprehensive metabolic 2000 panelon 11-09-2024 Albumin [Mass/Vol] 4.4 g/dL Normal 3.9-4.9 [facility] Comment on above: Order Comment: Speci men Type: BLOOD SPECIMENOrdering Facility: [facility] Address: [address] [place] [address] Performed By: #### L [id number], 98626-4, 66422-6 ####[facility] LWCLIA [id number] [place] [address] [facility] ALP [Catalytic activity/Vol] 132 U/L High 34-123 [facility] Comment on above: Order Comment: Speci men Type: BLOOD SPECIMENOrdering Facility: [facility] Address: [address] [place] [address] Performed By: #### L [id number], , ####[facility] LWCLIA [id number] [place] [phone] [place] [facility] ALT [Catalytic activity/Vol] 34 U/L Normal 7-38 [facility] Comment on above: Order Comment: Speci men Type: BLOOD SPECIMENOrdering Facility: [facility] Address: [address] [place] [address] Performed By: #### L [id number], , ####[facility] LWCLIA [id number] [address] [place] Anion gap [Moles/Vol] 11 mmol/L Normal 8-15 [facility] Comment on above: Order Comment: Speci men Type: BLOOD SPECIMENOrdering Facility: [facility] Address: [address] [place] [address] Performed By: #### L [id number], , ####[facility] LWCLIA [id number] [address] [place] AST [Catalytic activity/Vol] 21 U/L Normal 13-35 [facility] Comment on above: Order Comment: Speci men Type: BLOOD SPECIMENOrdering Facility: [facility] Address: [address] [place] [address] Performed By: #### L [id number], , ####[facility] LWCLIA [id number] [place] [address] [place] Bilirubin [Mass/Vol] 0.3 mg/dL Normal 0.2-1.3 [facility] Comment on above: Order Comment: Speci men Type: BLOOD SPECIMENOrdering Facility: [facility] Address: [address] [place] [address] Performed By: #### L [id number], , ####[facility] LWCLIA [id number] [place] [id number] [place] Calcium [Mass/Vol] 9.5 mg/dL Normal 8.5-10.2 [facility] Comment on above: Order Comment: Speci men Type: BLOOD SPECIMENOrdering Facility: [facility] Address: [address] [place] [address] Performed By: #### L [id number], , ####[facility] LWCLIA [id number] [place] [phone] [place] Chloride [Moles/Vol] 106 mmol/L Normal 98-107 [facility] Comment on above: Order Comment: Speci men Type: BLOOD SPECIMENOrdering Facility: [facility] Address: [address] [place] [address] Performed By: #### L [id number], , ####[facility] LWCLIA [id number] [place] [id number] [place] CO2 [Moles/Vol] 22 mmol/L Normal 22-30 [facility] Comment on above: Order Comment: Speci men Type: BLOOD SPECIMENOrdering Facility: [facility] Address: [address] [place] [address] Performed By: #### L [id number], , ####[facility] LWCLIA [id number] [place] [id number] [place] Creatinine [Mass/Vol] 0.64 mg/dL Normal 0.58-0.96 [facility] Comment on above: Order Comment: Speci men Type: BLOOD SPECIMENOrdering Facility: [facility] Address: [address] [place] [address] Performed By: #### L [id number], , ####[facility] LWCLIA [id number] [place] [id number] [place] Creatinine and Glomerular filtration rate.predicted panel (S/P/Bld) 120 mL/min/1.73m??? Normal >=60 [facility] Comment on above: Order Comment: Mookie roberts Type: BLOOD SPECIMENOrdering Facility: [facility] Address: [address] [place] [address] Result Comment: Anne-Marie mated Glomerular Filtration Rate [...] reflect actual GFR. Performed By: #### L [id number], 69663-0, 22150-6 ####[facility] LWCLIA [id number] [place] [address] [place] Glucose [Mass/Vol] 87 mg/dL Normal 74-99 [facility] Comment on above: Order Comment: Mookie roberts Type: BLOOD SPECIMENOrdering Facility: [facility] Address: [address] [place] [address] Result Comment: The [place] [employer] (ADA) provides guidance for cutoff [...] Standards of Medical Care in Diabetes 2016, [place] [employer]. Diabetes Care. 2016.39(Suppl 1). Performed By: #### L UP2069, 24901-8, ####[facility] LWCLIA [id number] [place] [id number] [place] Potassium [Moles/Vol] 4.2 mmol/L Normal 3.7-5.1 [facility] Comment on above: Order Comment: Speci men Type: BLOOD SPECIMENOrdering Facility: [facility] Address: [address] [place] [address] Performed By: #### L [id number], , ####[facility] LWCLIA [id number] [place] [address] [place] Protein [Mass/Vol] 7.5 g/dL Normal 6.3-8.0 [facility] Comment on above: Order Comment: Speci men Type: BLOOD SPECIMENOrdering Facility: [facility] Address: [address] [place] [address] Performed By: #### L [id number], , ####[facility] LWCLIA [id number] [place] [id number] [place] Sodium [Moles/Vol] 139 mmol/L Normal 136-144 [facility] Comment on above: Order Comment: Speci men Type: BLOOD SPECIMENOrdering Facility: [facility] Address: [address] [place] [address] Performed By: #### L [id number], , ####[facility] LWCLIA [id number] [place] [id number] [place] Urea nitrogen [Mass/Vol] 10 mg/dL Normal 7-21 [facility] Comment on above: Order Comment: Speci men Type: BLOOD SPECIMENOrdering Facility: [facility] Address: [address] [place] [address] Performed By: #### L [id number], , ####[facility] LWCLIA [id number] [place] [address] [place] [id number] 11-09-2024 ECG01 Normal [facility] ED NOTEon 11-09-2024 ED NOTE Normal [facility] ED NOTE HNO ID: [id number] Author: RICHARD MATAMOROS RN Service: Nursing Author Type: Registered Nurse Type: ED Notes Filed: 11/09/2024 13:43 Note Text: Normal [facility] ED NOTE Normal [facility] ED PROV NOTEon 11-09-2024 ED PROV NOTE Normal [facility] HIGH SENSITIVITY TROPONIN T (INITIAL)on 11-09-2024 Troponin T.cardiac High sensitivity method [Mass/Vol] <6 Normal <12 [facility] Comment on above: Order Comment: Speci men Type: BLOOD SPECIMENOrdering Facility: [facility] Address: [address] [place] [address] Performed By: #### L [id number], , ####[facility] LWCLIA [id number] [address] [place] OF [facility] HIGH SENSITIVITY TROPONIN T (SECOND)on 11-09-2024 Troponin T.cardiac High sensitivity method [Mass/Vol] <6 Normal <12 [facility] Comment on above: Order Comment: Speci men Type: BLOOD SPECIMENOrdering Facility: [facility] Address: [address] [place] [address] Performed By: #### L [id number] ####[facility] LWCLIA [id number] [place] [id number] [place] Magnesium SerPl-mCncon 11-09 Magnesium [Mass/Vol] 2.2 mg/dL Normal 1.7-2.3 [facility] Comment on above: Order Comment: Speci men Type: BLOOD SPECIMENOrdering Facility: [facility] Address: [address] [place] [address] Performed By: #### L [id number], , 81600-0 ####[facility] LWCLIA [id number] [place] [id number] [place] XR CHEST 1V FRONTAL PORTon 1 01-10-2024 XR CHEST 1V FRONTAL PORT Normal [facility] BACTERIAL VAGINOSIS NAATon 1 12-25-2023 Lactobacillus crispatus+gasseri+analia senii + Gardnerella vaginalis + Atopobium vaginae rRNA LAURA+probe Ql (Vag fld) Not detected Normal Not detected [facility] Comment on above: Order Comment: Speci men Type: SWABOrdering Facility: [facility] Address: [address] [place] [address] Performed By: #### B VAMP, 36009-5 ####[facility] LABCLIA [id number] [place] [address] [place] C. trachomatis+N. gonorrhoea e DNA LAURA+probe Ql (Unsp spec)on 10-24-2024 C. trachomatis rRNA LAURA+probe Ql (Unsp spec) Not detected Normal Not detected [facility] Comment on above: Order Comment: Speci men Type: SWABOrdering Facility: [facility] Address: [address] [place] [address] Performed By: #### B VAMP, 38814-1 ####[facility] LABCLIA [id number] [place] [address] [place] N. gonorrhoeae rRNA LAURA+probe Ql (Unsp spec) Not detected Normal Not detected [facility] Comment on above: Order Comment: Speci men Type: SWABOrdering Facility: [facility] Address: [address] [place] [address] Performed By: #### B VAMP, 82357-4 ####[facility] LABCLIA [id number] [place] [address] [place] ALESSANDRA/TRICHOMONAS NAATon 1 12-25-2023 C. glabrata RNA LAURA+probe Ql (Vag fld) Not detected Normal Not detected [facility] Comment on above: Order Comment: Speci men Type: SWABOrdering Facility: [facility] Address: [address] [place] [address] Performed By: #### C VTV ####[facility] LABCLIA [id number] [place] [address] [place] Alessandra sp DNA LAURA+probe Ql (Vag fld) Detected Abnormal Not detected [facility] Comment on above: Order Comment: Speci men Type: SWABOrdering Facility: [facility] Address: [address] [place] [address] Result Comment: The Alessandra species group target includes C. albicans, C. tropicalis, C. parapsilosis, and C. dubliniensis. Performed By: #### C VTV ####[facility] LABIA [id number] [place] [address] [place] T. vaginalis DNA LAURA+probe Ql (Unsp spec) Not detected Normal Not detected [facility] Comment on above: Order Comment: Speci men Type: SWABOrdering Facility: [facility] Address: [address] [place] [address] Performed By: #### C VTV ####[facility] LABIA [id number] [place] [address] [place] CNOVon 10-24-2024 CNOV Normal [facility] CNPNon 10-03-2024 CNPN Normal [facility] CNOVon 09-27-2024 CNOV Normal [facility] CNOVon 09-20-2024 CNOV Normal [facility] ED NOTEon 09-20-2024 ED NOTE Normal [facility] ED NOTE Normal [facility] ED PROV NOTEon 09-20-2024 ED PROV NOTE Normal [facility] XR HAND 3V PA/LAT/OBL LTon 1 XR HAND 3V PA/LAT/OBL LT Normal [facility] XR WRIST 4V PA/LAT/OBL/SCAPH LTon 09-20-2024 XR WRIST 4V PA/LAT/OBL/SCAPH LT Normal [facility] CNPNon 09-08-2024 CNPN Normal [facility] BACTERIAL VAGINOSIS NAATon 1 Lactobacillus crispatus+gasseri+analia senii + Gardnerella vaginalis + Atopobium vaginae rRNA LAURA+probe Ql (Vag fld) Positive Abnormal Negative for bacterial vaginosis [facility] Comment on above: Order Comment: Speci men Type: SWABOrdering Facility: [facility] Address: [address] [place] [address] Performed By: #### C VTV, BVAMP ####[facility] LABCLIA [id number] [place] [address] [place] ALESSANDRA/TRICHOMONAS NAATon 1 C. glabrata RNA LAURA+probe Ql (Vag fld) Negative Normal Negative for Alessandra glabrata [facility] Comment on above: Order Comment: Speci men Type: SWABOrdering Facility: [facility] Address: [address] [place] [address] Performed By: #### C VTV, BVAMP ####[facility] LABCLIA [id number] [place] [address] [place] Alessandra sp DNA LAURA+probe Ql (Vag fld) Positive Abnormal Negative for Alessandra species [facility] Comment on above: Order Comment: Speci men Type: SWABOrdering Facility: [facility] Address: [address] [place] [address] Performed By: #### C VTV, BVAMP ####[facility] LABCLIA [id number] [place] [address] [place] T. vaginalis DNA LAURA+probe Ql (Unsp spec) Negative Normal Negative for Trichomonas vaginalis by amplification [facility] Comment on above: Order Comment: Speci men Type: SWABOrdering Facility: [facility] Address: [address] [place] [address] Performed By: #### C VTV, BVAMP ####[facility] LABCLIA [id number] [place] [address] [place] CNOVon 09-07-2024 CNOV Normal [facility] CNOVon 08-19-2024 CNOV Normal [facility] CNOVon 08-11-2024 CNOV Normal [facility] CNOVon 07-31-2024 CNOV Normal [facility] HEMOGLOBIN GLYCOSYLATED A1Co n 06-14-2024 HbA1c (Bld) [Mass fraction] 5.4 % 4.8 - 5.6 % [facility] Work Phone: [phone] LIPID PANEL WITH REFLEXon Cholesterol [Mass/Vol] 207 mg/dL High 100 - 199 mg/dL [facility] Work Phone: [phone] Cholesterol in HDL [Mass/Vol] 48 mg/dL >39 mg/dL [facility] Work Phone: [phone] Cholesterol in LDL [Mass/Vol] 135 mg/dL High 0 - 99 mg/dL [facility] Work Phone: [phone] Cholesterol in VLDL [Mass/Vol] 24 mg/dL 5 - 40 mg/dL [facility] Work Phone: [phone] Triglyceride [Mass/Vol] 135 mg/dL 0 - 149 mg/dL [facility] Work Phone: [phone] XR Ankle - left AP and Later al and obliqueon 04-08-2024 IMPRESSION: No acute fractures seen Padder Cushion: [facility] Transcribe Date/Time: Apr 08 2024 10:00A Dictated by : KINSEY CAVANAUGH MD This examination was interpreted and the report reviewed and electronically signed by: KINSEY CAVANAUGH MD on Apr 08 2024 10:01AM [facility] DIVISION OF RADIOLOGY * * *Final [...] bodies are visualized. DIVISION OF RADIOLOGY Provider, [facility] Colleen [facility] - 04/08/2024 * * *Final Report* [...] visualized. IMPRESSION IMPRESSION: No acute fractures seen Padder Cushion: [facility] Transcribe Date/Time: Apr 08 2024 10:00A Dictated by : KINSEY CAVANAUGH MD This examination was interpreted and the report reviewed and electronically signed by: KINSEY CAVANAUGH MD on Apr 08 2024 10:01AM EST [facility] XR Ankle - left AP and Later al and obliqueOrdered By: [facility] Provider on 04-08-2024 [facility] XR Foot - left AP and Latera l and obliqueon 04-08-2024 IMPRESSION: No acute fractures seen Padder Cushion: [facility] Transcribe Date/Time: Apr 08 2024 10:03A Dictated [...] acute fractures seen. DIVISION OF RADIOLOGY Provider, [facility] - 04/08/2024 * * *Final Report* [...] seen. IMPRESSION IMPRESSION: No acute fractures seen Padder Cushion: [facility] Transcribe Date/Time: Apr 08 2024 10:03A Dictated by : KINESY CAVANAUGH MD This examination was interpreted and the report reviewed and electronically signed by: KINSEY CAVANAUGH MD on Apr 08 2024 10:03AM EST [facility] No Panel Informationon 04-04 Radiology Study observation (narrative) [facility] XR Hand - left PA and Latera l and Obliqueon 02-08-2024 Radiology Study observation (narrative) [facility] IMPRESSION: Healing small finger metacarpal fracture with unchanged alignment. [facility] Transcribe Date/Time: Feb 08 2024 12:58P Dictated by : YOSELIN WOODARD MD This examination was interpreted and the report reviewed and electronically signed by: YOSELIN WOODARD MD on Feb 08 2024 12:58PM [facility] DIVISION OF RADIOLOGY * * *Final [...] abnormality is identified. DIVISION OF RADIOLOGY Provider, [facility] - 02/08/2024 * * *Final Report* [...] small finger metacarpal fracture with unchanged alignment. Padder Cushion: ZACHARY Transcribe Date/Time: Feb 08 2024 12:58P Dictated by : YOSELIN WOODARD MD This examination was interpreted and the report reviewed and electronically signed by: YOSELIN WOODARD MD on Feb 08 2024 12:58PM EST [facility] XR Hand - left PA and Latera l and ObliqueOrdered By: Ccf Provider on 02-08-2024 [facility] XR Hand - left PA and Latera l and Obliqueon 01-28-2024 [facility] XR Hand - left PA and Latera l and Obliqueon 01-01-2024 [facility] No Panel Informationon 12-28 [facility] URINE CULTUREon 09-30-2023 Bacteria identified Cx Nom (U) 10,000 -<50,000 CFU/ml Normal urogenital nia [facility] UA DIP, URINE (POC)on 2022 BILIRUBIN UA (POCT) Negative Negative [facility] CLARITY UA (POCT) Cloudy [facility] COLOR UA (POCT) Yellow [facility] GLUCOSE UA (POCT) Negative Negative mg/dL [facility] Hemoglobin Ql (U) Negative Negative [facility] KETONE UA (POCT) Negative Negative mg/dL [facility] LEUKOCYTES UA (POCT) Moderate Abnormal Negative [facility] NITRITE UA (POCT) Negative Negative [facility] PH UA (POCT) 6.5 4.5 - 8.0 [facility] Protein Ql (U) Negative Negative mg/dL [facility] SPECIFIC GRAVITY UA (POCT) 1.015 1.005 - 1.030 [facility] UROBILINOGEN UA (POCT) 0.2 E.U./dL Normal E.U./dL [facility] UA DIP, URINE (POC)on 2022 BILIRUBIN UA (POCT) Negative Negative [facility] CLARITY UA (POCT) Clear [facility] COLOR UA (POCT) Yellow [facility] GLUCOSE UA (POCT) Negative Negative mg/dL [facility] Hemoglobin Ql (U) Moderate Abnormal Negative [facility] KETONE UA (POCT) Negative Negative mg/dL [facility] LEUKOCYTES UA (POCT) Small Abnormal Negative [facility] NITRITE UA (POCT) Negative Negative [facility] PH UA (POCT) 7.0 4.5 - 8.0 [facility] Protein Ql (U) Negative Negative mg/dL [facility] SPECIFIC GRAVITY UA (POCT) 1.010 1.005 - 1.030 [facility] UROBILINOGEN UA (POCT) 0.2 E.U./dL Normal E.U./dL [facility] Absolute lymphocyte counton 12-06-2022 Lymphocytes Auto (Unsp spec) [#/Vol] 1.62 10*3/uL 0.83-4.51 [facility] Work Phone: Basophil percentageon 2022 Basophils/100 WBC (Bld) 0.1 % 0-1 [facility] Work Phone: Eosinophils/100 WBC (Bld) 0.3 % 0-5 [facility] Work Phone: Neutrophils (Bld) [#/Vol] 6.5 10*3/uL 2.0-7.7 [facility] Work Phone: Neutrophils/100 WBC (Bld) 74.7 % 47-70 [facility] Work Phone: WBC (Bld) [#/Vol] 8.7 10*3/uL 4.4-11.0 [facility] Work Phone: Blood erythrocytes count (nu mber/volume)on 12-06-2022 RBC (Bld) [#/Vol] 5.14 10*6/uL 4.2-5.4 [facility] Work Phone: Blood hemoglobin measurement (mass/volume)on 12-06-2022 Hemoglobin (Bld) [Mass/Vol] 14.7 g/dL 12.0-15.0 [facility] Work Phone: Blood lymphocytes/100 leukoc yteson 12-06-2022 Lymphocytes/100 WBC (Bld) 18.6 % 19-41 [facility] Work Phone: Blood monocytes/100 leukocyt eson 12-06-2022 Monocytes/100 WBC (Bld) 5.7 % 0-10 [facility] Work Phone: Blood platelet mean volumeon 12-06-2022 Platelet mean volume (Bld) [Entitic vol] 9.9 fL 6.2-12.0 [facility] Work Phone: Determination of erythrocyte mean corpuscular volume (MCV)on 12-06-2022 MCV (RBC) [Entitic vol] 86.8 fL 81-99 [facility] Work Phone: Hematocrit Auto (Bld) [Volum e fraction]on 12-06-2022 Hematocrit (Bld) [Volume fraction] 44.6 % 37-47 [facility] Work Phone: Laboratory - Hematology and Cell countson 12-06-2022 Erythrocyte distribution width (RBC) [Entitic vol] 41.2 fL 35.1-43.9 [facility] Work Phone: Erythrocyte distribution width (RBC) [Ratio] 13.1 % 11.6-14.6 [facility] Work Phone: Immature granulocytes/100 WBC (Bld) 0.600 % 0.0-0.9 [facility] Work Phone: Comment on above: IG% - Immature Granu locytes (promyelocytes, myelocytes and metamyelocytes) > 1% indicates that a LEFT SHIFT is Present. MCH (RBC) [Entitic mass] 28.6 pg 27.0-32.0 [facility] Work Phone: Nucleated RBC/100 WBC (Bld) [Ratio] 0 % 0-5 [facility] Work Phone: MCHC Auto (RBC) [Mass/Vol]on 12-06-2022 MCHC (RBC) [Mass/Vol] 33.0 g/dL 32-36 [facility] Work Phone: Platelets bldon 01-14-2023 Platelets (Bld) [#/Vol] 324 10*3/uL 150-450 [facility] Work Phone: UA DIP, URINE (POC)on 2021 BILIRUBIN UA (POCT) Negative Negative [facility] CLARITY UA (POCT) Clear [facility] COLOR UA (POCT) Yellow [facility] GLUCOSE UA (POCT) Negative Negative mg/dL [facility] HEMOGLOBIN/BLOOD UA (POCT) Large Abnormal Negative [facility] KETONE UA (POCT) Negative Negative mg/dL [facility] LEUKOCYTES UA (POCT) Small Abnormal Negative [facility] NITRITE UA (POCT) Negative Negative [facility] PH UA (POCT) 6.0 4.5 - 8.0 [facility] Protein Ql (U) 30 mg/dL Abnormal Negative mg/dL [facility] SPECIFIC GRAVITY UA (POCT) >=1.030 1.005 - 1.030 [facility] UROBILINOGEN UA (POCT) 0.2 E.U./dL Normal E.U./dL [facility] URINE OB DIP B/Oon 2 Glucose Ql (U) Negative Neg mg/dL [facility] Protein.monoclonal (U) [Mass/Vol] trace Neg mg/dL [facility] OBSTETRIC ULTRASOUND WHIon 0 06-24-2022 [facility] HEMOGLOBIN A1C (POC)on 06-03 HbA1c (Bld) [Mass fraction] 5.2 % 4.2 - 5.6 % [facility] URINE OB DIP B/Oon 2 Glucose Ql (U) 100 mg/dL Neg mg/dL [facility] Protein.monoclonal (U) [Mass/Vol] trace Neg mg/dL [facility] GC + CHLAMYDIA BY AMPLIFIED DETECTIONon 04-22-2022 CHLAMYDIA TRACH.,AMPLIFIED Negative Normal Negative [facility] Comment on above: Result Comment: The APTIMA Combo 2 assay is FDA-approved for Chlamydia trachomatis and Neisseria gonorrhoeae testing on female endocervical and vaginal swabs, ThinPrep liquid pap samples, male urine samples and urethral swabs. Performance characteristics for Chlamydia trachomatis and Neisseria gonorrhoeae testing on specific crh-BLL-ilacwnge sample types (female urine samples) have been validated by [facility]. This laboratory is certified by CLIA to perform high complexity testing. Samples from all other sites are not validated for this method. Performed By: #### G [facility] #### [facility] [address] [place] [address] N.GONORRHEA,AMPLIFIED Negative Normal Negative [facility] Comment on above: Result Comment: The APTIMA Combo 2 assay is FDA-approved for Chlamydia trachomatis and Neisseria gonorrhoeae testing on female endocervical and vaginal swabs, ThinPrep liquid pap samples, male urine samples and urethral swabs. Performance characteristics for Chlamydia trachomatis and Neisseria gonorrhoeae testing on specific spp-DWI-tqeishte sample types (female urine samples) have been validated by [facility]. This laboratory is certified by CLIA to perform high complexity testing. Samples from all other sites are not validated for this method. Performed By: #### G [facility] #### [facility] [address] [place] [address] TRICHOMONAS,NUCLEIC ACID DET ECTIONon 04-22-2022 TRICHOMONAS VAGINALIS Negative Normal Negative [facility] Comment on above: Result Comment: The APTIMA Trichomonas vaginalis assay is FDA-approved for testing on female endocervical swabs, vaginal swabs, and ThinPrep liquid pap samples. Performance characteristics for Trichomonas vaginalis on specific nei-CFY-jigjhiub sample types (female and male urine and male urethral swabs) have been validated by [facility]. This laboratory is certified by CLIA to perform high complexity testing. Samples from all other sites are not validated for this method. Performance characteristics for Trichomonas Vaginalis testing on urine samples has been validated by [facility]. Testing on this sample type is not FDA-approved, but such approval is not necessary. This laboratory is certified by CLIA to perform high complexity testing. Performed By: #### T [facility] #### [facility] [address] [place] [address] Daily Progress Note - OB-Tri ageon 04-21-2022 [...] noted. Objective Information: Objective Information: T PRBPMAPSpO2 [id number]% Date/Time04/21 16: 16: 16: 16: 16:56 Range (82 - 85 ) (17 - 17 ) (116 - 116 )/ (67 - 67 ) (86 - 86 ) (93% - 95% ) Pain reported at 04/21 16:56: 3 = Mild; burning with urination T PRBPMAPSpO2 [id number]/941063% Date/Time04/21 16: 17: 16: 17: 17: 17:37 [...] Reference Range: STRAW,YELLOW Appearance, Urine HAZY Specific [place], Urine 1.019 pH, Urine 7.0 Protein, Urine [...] Updated: 21-Apr-2022 17:54 by Jaya Kaur) Normal [facility] Discharge [id number] 022 Discharge Profile2 Discharge Orders: DNAR: Code [...] FINAL REVIEW of Orders, Gold Form - Veterinary Surgeon Summary Last Updated: 21-Apr-2022 17:03 by Jaya Kaur) Normal [facility] Order Reconciliationon 04-21 Order Reconciliation Page 1 Discharge Reconciliation Document Reconciliation Type: Discharge requested on behalf of Jaya Kaur (Physician) done by Jaya Kaur) Discharge - Reconciliation: 21-Apr-2022 17:01 by: Jaya [...] 1 milligram(s) orally once a day Normal [facility] Risk Screen - OB Triageon Risk Screen [...] Learning Preferencesverbal instruction Cultural Considerationsnone Developmental Considerationsnone Sabianist Considerationsnone Learning Assessment (Other Learner): Other learner availableno Depression/Suicide: Depression Screen: During the past month, have you often been bothered by feeling down, depressed or hopelessno During the past month, have you often had little interest or pleasure in doing thingsno Have you had any thoughts of harming anyone elseno [place] Suicide: Risk Screen Not Applicable/Able to Answerable to be screened In the Past Month: Have you wished you were or could go to sleep and not wake upno In the Past Month: Have you had any actual thoughts of killing yourselfno Lifetime: Have you ever done, started to do, or prepared to do anything to end your lifeno [place] Suicide Risknegative Family Violence: Abuse Screen: Are you or have you been threatened or abused physically, emotionally, or sexually by anyoneno Do you feel UNSAFE going back to the place where you are livingno Clinical assessment: Are there any apparent signs of injuries/behaviors that could be related to abuse/neglectno Electronic Signatures: Johana Murphy (MIRNA) (Signed 21-Apr-2022 16:47) Authored: Allergies, Patient Verification, Travel History, Advance Directives, [place] Fall Screen, Learning Assessment (Patient), Learning Assessment (Other Learner), Depression/Suicide, Family Violence Last Updated: 21-Apr-2022 16:47 by Johana Murphy (MIRNA) Normal [facility] TRICHOMONAS,NUCLEIC ACID DET ECTIONon 04-21-2022 Lab Specimen Source Urine Normal [facility] Comment on above: Performed By: #### Radha LONDON #### [facility] [address] [place] [address] Performed By: #### G [facility] #### [facility] [address] [place] [address] Triage Note - OB v4on 2021 Triage Note - OB v4 Triage: General Info: Time of Arrival on [id number] 16:35 [facility] Ac[facility] Level3 Time Acuity Level [id number]-8403 16:48 Modified Acuity Level5 Time Modified Acuity Level Bcxiddyb90-Hsf-9524 16:55 Chief Complaintpain on urination Spoken Language PreferredEnglish (1) Source of Informationpatient Weight in kg70 kilogram(s) Weight in phv757.3 pound(s) Weight Methodactual (measured) Scale Typestanding Height in feet5 feet Height in inches3.98 inch(es) Height in cm162.5 centimeter(s) Height Methodstated BMI (kg/m2)26.508 square meter Blood Avoidance/Restrictionsnon e(1) Previous Transfusion Reactionno(1) Patient Belongingsremains with patient Patient Belongings Remaining with Patientcell phone/electronics; clothing Home Meds have been Reviewed and Verified with Patient/Familyno Info: Gravida2 Term Deliveries1 Deliveries0 Abortions0 Living Children1 Patient stated [id number] Calculation of EGA based on patient stated EDD26 Substance: Smoking Statusnever smoker Alcohol Usedenies Drug Usedenies Drug 2 Usedenies Disposition/Disch: Dispositiondischarged from facility, home with own care Discharge/Transfer Summary NotePatient d/c with self care. Orders to follow up with provider and to take antibiotics as prescribed for uti. No questions at this time. Patient Meets Criteria for Home Blood Pressure Monitorno Admission/Observation/Dis charge/Transfer Date/Fatr63-Anp-6312 17:45 Discharge Modeambulatory Transportation Methodprivate car Travel [...] Phenergan: Drug, Unknown, Active Electronic Signatures: Johana Murphy) (Signed 21-Apr-2022 17:46) Authored: General Info, Info, Substance, Disposition/Disch, Travel History, Additional Information Last Updated: 21-Apr-2022 17:46 by Johana Murphy (RN) References: 1. Data Referenced From Triage Note - OB v4 17-Mar-2022 13:39 Normal [facility] UA MICROSCOPICon 04-21-2022 RBC 21-50 Abnormal 0-5 [facility] Comment on above: Performed By: #### U AMIC #### [address] [place] [address] SQUAMOUS EPITH. CELLS 3 /HPF Normal [facility] Comment on above: Performed By: #### U AMIC #### [address] [place] [address] WBC 21-50 Abnormal 0-5 [facility] Comment on above: Performed By: #### U AMIC #### [address] [place] [address] URINALYSISon 04-21-2022 Appearance (U) HAZY Normal CLEAR [facility] Comment on above: Performed By: #### U A #### [address] [place] [address] Bilirubin Ql (U) Negative Normal NEGATIVE [facility] Comment on above: Performed By: #### U A #### [address] [place] [address] Color (U) YELLOW Normal STRAW,YELLOW [facility] Comment on above: Performed By: #### U A #### [address] [place] [address] Glucose Ql (U) 50(TRACE) Abnormal NEGATIVE [facility] Comment on above: Performed By: #### U A #### [address] [place] [address] Hemoglobin Ql (U) SMALL(1+) Abnormal NEGATIVE [facility] Comment on above: Performed By: #### U A #### [address] [place] [address] Ketones Ql (U) Negative Normal NEGATIVE [facility] Comment on above: Performed By: #### U A #### [address] [place] [address] Leukocyte esterase Test strip Ql (U) MODERATE(2+) Abnormal NEGATIVE [facility] Comment on above: Performed By: #### U A #### [address] [place] [address] Nitrite Ql (U) Negative Normal NEGATIVE [facility] Comment on above: Performed By: #### U A #### [address] [place] [address] pH (U) 7.0 [pH] Normal 5.0 - 8.0 [facility] Comment on above: Performed By: #### U A #### [address] [address] Protein Ql (U) Negative Normal NEGATIVE [facility] Comment on above: Performed By: #### U A #### [address] [address] Specific gravity (U) [Rel density] 1.019 Normal 1.005 - 1.035 [facility] Comment on above: Performed By: #### U A #### [address] [address] Urobilinogen (U) [Mass/Vol] mg/dL Normal 0.0 - 1.9 [facility] Comment on above: Performed By: #### U A #### [address] [address] URINE OB DIP B/Oon 2 Glucose Ql (U) 250 mg/dL Neg mg/dL [facility] Protein.monoclonal (U) [Mass/Vol] Negative Neg mg/dL [facility] OBSTETRIC ULTRASOUND WHIon 0 03-11-2022 [facility] URINE OB DIP B/Oon 2 Glucose Ql (U) Negative Neg mg/dL [facility] Protein.monoclonal (U) [Mass/Vol] Negative Neg mg/dL [facility] Provider Note - ED v2on 10-3 [...] MDM: Patient is seen and examined. Nurse nieves Kilgore is present as a law professor. Appears to be an abscess, however no [...] with discharge plan HISTORY OF PRESENTING ILLNESS MATTHEW is a 31 year old Female and [...] documented data. SIGNIFICANT EVENTS: No documented data. 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 Data Referenced From Triage - ED 21-Sep-2021 16:21 Normal [facility] Risk Screen - Adult Emergenc yon 09-21-2021 Risk Screen - Adult Emergency Preferred Language: Preferred Language: Preferred Language for Discussing Health Care (patient/designee)Niuean Advanced Directives: Advance Directive/DNRno Family Violence Adult: Abuse Screen: Are you or have you been threatened or abused physically, emotionally, or sexually by anyoneno Learning Assessment (Patient): Learning Assessment (Patient): Patient is Able to be Assessed for Learningyes Factors Influencing Readiness to Learnacuteness of illness Factors that Impact Ability to Learnnone Devices/Methods Used to Communicatenone Learning Preferencesindividual instruction Cultural Considerationsnone Developmental Considerationsnone Sabianist Considerationsnone Learning Assessment (Other Learner): Learning Assessment (Other Learner): Other learner availableno Pressure Injury/TB/Substance: Pressure Injury: Do you have a coughno Smoking Statusnever smoker Admission Risk Screen: Significant IndicatorsComplete CAGE: CAGE: Is this an injured patient at a Trauma Center ([facility]/[place]/ [place]): no Electronic Signatures: Sharda Celeste (RN) (Signed 21-Sep-2021 16:35) Authored: Preferred Language, Advanced Directives, Family Violence Adult, Learning Assessment (Patient), Learning Assessment (Other Learner), Pressure Injury/TB/Substance, Pressure Injury, CAGE Last Updated: 21-Sep-2021 16:35 by Sharda Celeste (RN) Normal [facility] Triage - EDon 09-21-2021 Triage - ED [...] Accompanied By: self Language: Spoken Language Preferred: Niuean Reading Language Preferred: Niuean Yarn Wrapper Requested: no 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 MDRO: History of MDRO: no [...] obeys commands Best Verbal Response: (V5) oriented Siobhan Score: 15 Cough lasting greater than 3 [...] History: Past Medical History Reviewedyes Electronic Signatures: Rcihard Melgoza (MIRNA) (Signed 21-Sep-2021 16:25) Entered: Risk Screens, Pain, Arrival, ABCD, Travel History, Chart Review, Scores, Past Medical History Authored: Quick Triage, Risk Screens, Pain, Arrival, ABCD, Travel History, Chart Review, Scores, Past Medical History Last Updated: 21-Sep-2021 16:25 by Richard Melgoza (MIRNA) [facility] ED NOTEon 04-24-2021 ED NOTE HNO ID: [id number] Author: Salma Hager RN Service: ? Author Type: Registered Nurse Type: ED Notes Filed: 04/24/2021 4:27 PM Note Text: Patient is being sent in by OBGYN for c/o post depression. She delivered a week ago and called the office crying uncontrollably stating she was having horrible thoughts and was going to drop the baby. She is also off her bipolar medications. Normal [facility] APTTon 11-03-2020 aPTT Coag (Bld) [Time] 24.5 s Normal 23.0-32.4 [facility] Comment on above: Result Comment: Unfr actionated [...] laboratory APTT reagent in use throughout the [facility]. Performed By: #### P T, PTT, LIPA, CMP, MG1, CBCDIF #### [facility] [address] [facility] [phone] CBC and Differentialon 11-03 Abs Baso 0.03 k/uL Normal <0.11 [facility] Comment on above: Performed By: #### P T, PTT, LIPA, CMP, MG1, CBCDIF #### [facility] [address] [phone] Abs [place] 0.55 k/uL Normal <0.87 [facility] Comment on above: Performed By: #### P T, PTT, LIPA, CMP, MG1, CBCDIF #### [facility] [address] [phone] Abs Neut 9.67 k/uL High 1.45-7.50 [facility] Comment on above: Performed By: #### P T, PTT, LIPA, CMP, MG1, CBCDIF #### [facility] [address] [place] [address] Absolute nRBC <0.01 Normal <0.01 [facility] Comment on above: Performed By: #### P T, PTT, LIPA, CMP, MG1, CBCDIF #### [facility] [address] [phone] Basophils/100 WBC (Bld) 0.3 % Normal [facility] Comment on above: Performed By: #### P T, PTT, LIPA, CMP, MG1, CBCDIF #### [facility] [address] [phone] DTYPE Auto Diff Normal [facility] Comment on above: Performed By: #### P T, PTT, LIPA, CMP, MG1, CBCDIF #### [facility] [address] [phone] Eosinophils (Bld) [#/Vol] 10*3/uL Normal <0.46 [facility] Comment on above: Performed By: #### P T, PTT, LIPA, CMP, MG1, CBCDIF #### [facility] [address] [place] [phone] Eosinophils/100 WBC (Bld) 0.2 % Normal [facility] Comment on above: Performed By: #### P T, PTT, LIPA, CMP, MG1, CBCDIF #### [facility] [address] [place] [phone] Erythrocyte distribution width (RBC) [Ratio] 12.7 % Normal 11.5-15.0 [facility] Comment on above: Performed By: #### P T, PTT, LIPA, CMP, MG1, CBCDIF #### [facility] [address] [place] [address] Hematocrit (Bld) [Volume fraction] 39.9 % Normal 36.0-46.0 [facility] Comment on above: Performed By: #### P T, PTT, LIPA, CMP, MG1, CBCDIF #### [facility] [address] [place] [address] Hemoglobin (Bld) [Mass/Vol] 13.4 g/dL Normal 11.5-15.5 [facility] Comment on above: Performed By: #### P T, PTT, LIPA, CMP, MG1, CBCDIF #### [facility] [address] [place] [phone] Lymphocytes (Bld) [#/Vol] 1.56 10*3/uL Normal 1.00-4.00 [facility] Comment on above: Performed By: #### P T, PTT, LIPA, CMP, MG1, CBCDIF #### [facility] [address] [facility] [phone] Lymphocytes/100 WBC (Bld) 13.2 % Normal [facility] Comment on above: Performed By: #### P T, PTT, LIPA, CMP, MG1, CBCDIF #### [facility] [address] [facility] [phone] MCH (RBC) [Entitic mass] 29.7 pG Normal 26.0-34.0 [facility] Comment on above: Performed By: #### P T, PTT, LIPA, CMP, MG1, CBCDIF #### [facility] [address] [place] [address] MCHC (RBC) [Mass/Vol] 33.6 g/dL Normal 30.5-36.0 [facility] Comment on above: Performed By: #### P T, PTT, LIPA, CMP, MG1, CBCDIF #### [facility] [address] [place] [address] MCV (RBC) [Entitic vol] 88.5 fL Normal 80.0-100.0 [facility] Comment on above: Performed By: #### P T, PTT, LIPA, CMP, MG1, CBCDIF #### [facility] [address] [place] [address] Monocytes/100 WBC (Bld) 4.6 % Normal [facility] Comment on above: Performed By: #### P T, PTT, LIPA, CMP, MG1, CBCDIF #### [facility] [address] [place] [address] Neutrophils/100 WBC (Bld) 81.7 % Normal [facility] Comment on above: Performed By: #### P T, PTT, LIPA, CMP, MG1, CBCDIF #### [facility] [address] [place] [phone] NRBCs 0.0 /100 WBC Normal 0 [facility] Comment on above: Performed By: #### P T, PTT, LIPA, CMP, MG1, CBCDIF #### [facility] [address] Platelet mean volume (Bld) [Entitic vol] 10.6 fL Normal 9.0-12.7 [facility] Comment on above: Performed By: #### P T, PTT, LIPA, CMP, MG1, CBCDIF #### [facility] [address] [place] [address] Platelets (Bld) [#/Vol] 223 10*3/uL Normal 150-400 [facility] Comment on above: Performed By: #### P T, PTT, LIPA, CMP, MG1, CBCDIF #### [facility] [address] [place] [address] RBC (Bld) [#/Vol] 4.51 10*6/uL Normal 3.90-5.20 [facility] Comment on above: Performed By: #### P T, PTT, LIPA, CMP, MG1, CBCDIF #### [facility] [address] [place] [address] WBC (Bld) [#/Vol] 11.83 10*3/uL High 3.70-11.00 [facility] Comment on above: Performed By: #### P T, PTT, LIPA, CMP, MG1, CBCDIF #### [facility] [address] [place] [address] Comp Metabolic Panelon 11-03 Albumin [Mass/Vol] 4.0 g/dL Normal 3.9-4.9 [facility] Comment on above: Performed By: #### P T, PTT, LIPA, CMP, MG1, CBCDIF #### [facility] [address] [place], [place] [phone] ALP [Catalytic activity/Vol] 66 U/L Normal 34-123 [facility] Comment on above: Performed By: #### P T, PTT, LIPA, CMP, MG1, CBCDIF #### [facility] [address] [place], [place] [phone] ALT [Catalytic activity/Vol] 27 U/L Normal 7-38 [facility] Comment on above: Performed By: #### P T, PTT, LIPA, CMP, MG1, CBCDIF #### [facility] [address] [facility] [phone] Anion gap [Moles/Vol] 10 mmol/L Normal 9-18 [facility] Comment on above: Performed By: #### P T, PTT, LIPA, CMP, MG1, CBCDIF #### [facility] [address] [facility] [phone] AST [Catalytic activity/Vol] 23 U/L Normal 13-35 [facility] Comment on above: Performed By: #### P T, PTT, LIPA, CMP, MG1, CBCDIF #### [facility] [address] [facility] [phone] Bilirubin [Mass/Vol] 0.3 mg/dL Normal 0.2-1.3 [facility] Comment on above: Performed By: #### P T, PTT, LIPA, CMP, MG1, CBCDIF #### [facility] [address] [place] [phone] Calcium [Mass/Vol] 9.0 mg/dL Normal 8.5-10.2 [facility] Comment on above: Performed By: #### P T, PTT, LIPA, CMP, MG1, CBCDIF #### [facility] [address] [facility] [phone] Chloride [Moles/Vol] 103 mmol/L Normal 97-105 [facility] Comment on above: Performed By: #### P T, PTT, LIPA, CMP, MG1, CBCDIF #### [facility] [address] [facility] [phone] CO2 [Moles/Vol] 23 mmol/L Normal 22-30 [facility] Comment on above: Performed By: #### P T, PTT, LIPA, CMP, MG1, CBCDIF #### [facility] [address] [facility] [phone] Creatinine [Mass/Vol] 0.53 mg/dL Low 0.58-0.96 [facility] Comment on above: Performed By: #### P T, PTT, LIPA, CMP, MG1, CBCDIF #### [facility] [address] [facility] [phone] eGFR- Amer. >60 Normal [facility] Comment on above: Performed By: #### P T, PTT, LIPA, CMP, MG1, CBCDIF #### [facility] [address] [facility] [phone] GFR/1.73 sq M predicted among non-blacks MDRD (S/P/Bld) [Vol rate/Area] mL/min/{1.73_m2} Normal [facility] Comment on above: Result Comment: eGFR (Estimated [...] T, PTT, LIPA, CMP, MG1, CBCDIF #### [facility] [address] [facility] [phone] Glucose [Mass/Vol] 81 mg/dL Normal 74-99 [facility] Comment on above: Result Comment: The [place] [employer] (ADA) provides guidance for cutoff [...] Standards of Medical Care in Diabetes 2016, [place] [employer]. Diabetes Care. 2016.39(Suppl 1). Performed By: #### P T, PTT, LIPA, CMP, MG1, CBCDIF #### [facility] [address] [facility] [phone] Potassium [Moles/Vol] 4.4 mmol/L Normal 3.7-5.1 [facility] Comment on above: Performed By: #### P T, PTT, LIPA, CMP, MG1, CBCDIF #### [facility] [address] [facility] [phone] Protein [Mass/Vol] 7.0 g/dL Normal 6.3-8.0 [facility] Comment on above: Performed By: #### P T, PTT, LIPA, CMP, MG1, CBCDIF #### [facility] [address] [place] [phone] Sodium [Moles/Vol] 136 mmol/L Normal 136-144 [facility] Comment on above: Performed By: #### P T, PTT, LIPA, CMP, MG1, CBCDIF #### [facility] [address] [place] [phone] Urea nitrogen [Mass/Vol] 7 mg/dL Normal 7-21 [facility] Comment on above: Performed By: #### P T, PTT, LIPA, CMP, MG1, CBCDIF #### [facility] [address] [place] [phone] ED NOTEon 11-03-2020 ED NOTE HNO ID: [id number] Author: Ainsley GaytanRn) MIRNA Asif Service: ? Author Type: Registered Nurse Type: ED Notes Filed: 11/03/2020 5:33 PM Note Text: Discharge instructions reviewed with patient via teachback. Pt awake and alert, respirations regular and unlabored. Pt verbalizes understanding. No further questions for this RN. [facility] ED NOTE HNO ID: [id number] Author: Ainsley GaytanRn) MIRNA Asif Service: ? Author Type: Registered Nurse Type: ED Notes Filed: 11/03/2020 3:56 PM Note Text: Dr. Asif at bedside to speak with pt. Pt states she does not like how she feels after the IV benadryl and she does not want the Reglan. [facility] ED NOTE HNO ID: [id number] Author: Essence GaytanRn) MIRNA Talbert Service: Nursing Author Type: Registered Nurse Type: ED Notes Filed: 11/03/2020 3:14 PM Note Text: Pt presents to ED with c/o syncopal episode and vomiting. Pt states she was with her aunt and passed out. She woke up and has been constantly vomiting. States she doesn't feel well. She is 15-16 weeks Normal [facility] ED PROV NOTEon 11-03-2020 ED PROV NOTE HNO ID: [id number] Author: Claudio Asif MD Service: ? Author Type: Physician Type: ED Provider Notes Filed: 11/03/2020 5:28 PM Note Text: ED Provider Note Patient Name: Matthew Huang SERVICE DATE: 11/03/20 History Patient presents with: Syncope Vomiting HPI Ms. 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 Josselin Culver out of [facility]. PAST MEDICAL HISTORY Diagnosis Date - [...] asked her to return if worse, f/u closley otherwise. The attending who evaluated and managed this patient was Claudio Asif . Plan: The patient was discharged home with verbal and written instructions. They were instructed to return as needed for persistent or worsening symptoms or any new concerns. Consent: A procedure or transfusion was performed - No Claudio Asif MD SIGNATURE: MD Claudio Shah MD 11/03/20 1728 Normal [facility] Lipaseon 11-03-2020 Lipase [Catalytic activity/Vol] 29 U/L Normal 16-61 [facility] Comment on above: Performed By: #### P T, PTT, LIPA, CMP, MG1, CBCDIF #### [facility] [address] [facility] [phone] Magnesiumon 11-03-2020 Magnesium [Mass/Vol] 2.0 mg/dL Normal 1.7-2.3 [facility] Comment on above: Performed By: #### P T, PTT, LIPA, CMP, MG1, CBCDIF #### [facility] [address] [facility] [phone] NT Pro BNPon 11-03-2020 PRO B Natr Peptide 39 pg/mL Normal <125 [facility] Comment on above: Performed By: #### N TBNP ####[facility] [phone] Protimeon 11-03-2020 PT Coag (PPP) [Time] 10.1 s Normal 9.7-13.0 [facility] Comment on above: Performed By: #### P T, PTT, LIPA, CMP, MG1, CBCDIF #### [facility] [address] [facility] [phone] PT Coag (PPP) [Time] 1.0 s Normal 0.9-1.3 [facility] Comment on above: Result Comment: Em min K Antagonist (VKA) Therapeutic Range: INR 2 to 3 (Target INR of 2.5) Note: For patients treated with VKA drugs, such as warfarin, the [place] [employer] 2012 Guideline recommends [...] GH, et al. Chest 2012, 141:7S-47S Tomer RA et al. [facility] 2017, 70: 252-289 Performed By: #### P T, PTT, LIPA, CMP, MG1, CBCDIF #### [facility] [address] [place] [address] Troponin Ton 11-03-2020 Troponin T.cardiac [Mass/Vol] ug/L Normal 0.000-0.029 [facility] Comment on above: Performed By: #### T NT #### [facility] [address] [place] [address] Urinalysison 11-03-2020 Bilirubin, Urine Negative Normal Negative [facility] Comment on above: Performed By: #### U A #### [facility] [address] [place] [address] Clarity (U) Clear Normal Clear [facility] Comment on above: Performed By: #### U A #### [facility] [address] [place] [address] Color (U) Yellow Normal Yellow [facility] Comment on above: Performed By: #### U A #### [facility] [address] [place] [address] Glucose Ql (U) Negative Normal Negative [facility] Comment on above: Performed By: #### U A #### [facility] [address] [place] [address] Hemoglobin/Blood,Ur Negative Normal Negative [facility] Comment on above: Performed By: #### U A #### [facility] [address] [place] [address] Ketones Ql (U) 3+ Critically abnormal Negative [facility] Comment on above: Performed By: #### U A #### [facility] [address] [place] [phone] Leukest Negative Normal Negative [facility] Comment on above: Performed By: #### U A #### [facility] [address] [place] [phone] Nitrite Ql (U) Negative Normal Negative [facility] Comment on above: Performed By: #### U A #### [facility] [address] [place] [phone] pH (Bld) 6.0 Normal 5.0-8.0 [facility] Comment on above: Performed By: #### U A #### [facility] [address] Protein (U) [Mass/Vol] Negative Normal Negative [facility] Comment on above: Performed By: #### U A #### [facility] [address] Specific [place], Ur 1.020 Normal 1.005-1.030 [facility] Comment on above: Performed By: #### U A #### [facility] [address] Urobilinogen Qn (U) 0.2 E.U./dL Normal 0.2-1.0 [facility] Comment on above: Performed By: #### U A #### [facility] [address] C URINEon 06-12-2020 C URINE [facility] [address] [place] [phone] Name: MATTHEW HUANG : 1990 Admitting Provider: Gender: Female Financial [phone] Number: Location: [facility]; IN06; 1 Admit 06/10/2020 Date: Discharge [...] Abnormal, C=Critical, f=Footnote, c=Corrected, i=Interp Data Name: MATTHEW HUANG Print Date/ 06/12/2020 09:05 EDT Time: Normal [facility] Comment on above: Performed By: #### 1 [id number] #### [facility] [address] [place], [place] [phone] Vest Baster: Zach Jung MD GP CHLAMon 06-11-2020 Genprobe Chlamydia Negative Normal [facility] Comment on above: Result Comment: This Chlamydia assay is being performed via a second generation NAAT that utilizes target capture, matzo forming machine operator mediated amplification and dual kenetic assay technologies. Performed By: #### 1 [id number], [id number] #### [facility] [address] [place], [place] [phone] Vest Baster: Zach Jung MD GP GCon 06-11-2020 Genprobe GC Negative [facility] Comment on above: Result Comment: This Gonorrhoea assay is being performed via a second generation NAAT that utilizes target capture, matzo forming machine operator mediated amplification and dual kenetic assay technologies. Performed By: #### 1 [id number], [id number] #### [facility] [address] [place], [place] [id number] Vest Baster: Zach Jung MD ED Physician Reporton 2019 [...] week. She reports that she saw her molecular biology scientist at the onset of her symptoms and [...] Yasmin 06/10/20 Appearance, U Clear 06/10/20 Specific [place], U 1.026 06/10/20 pH, U 5.0 06/10/20 [...] antibiotic course for UTI prescribed by her molecular biology scientist and is applying metronidazole gel for bacterial [...] Patient is advised to follow-up with her molecular biology scientist to ensure resolution. She is advised to return to the emergency department if she develops any new or worsening symptoms. She agrees with this plan. Reexamination/ Reevaluation Course: improving. Notes: The patient was reassesed prior to dispostion and is stable. . Impression and Plan Diagnosis Vaginal discharge (QZF50-DP N89.8, Working, Medical) Dysuria (ILP41-RH R30.0, Working, Medical) Acute UTI (MZZ00-UT N39.0, Working, Medical) Plan Condition: Improved, Stable. Disposition: Discharged: Time 06/10/2020 19:14:00, to home. Prescriptions: Launch prescriptions Pharmacy: [facility] 800 mg-160 mg oral tablet (Prescribe): 1 tabs, ORAL, [id number], for 10 days, Dosage expressed as trimethoprim, 20 tabs, 0 Refill(s). Patient was given the following educational materials: Urinary Tract Infection, Adult, Urinary Tract Infection, Adult. Follow up with: ; Your [employer] Within 3 to 5 days. Counseled: Patient, [...] accurately records my words and actions. Normal [facility] ED Progress Noteon 0 ED Progress [...] noted at this time. Pt discharged Normal [facility] U TESTon 0 Test, U Negative Normal [facility] Comment on above: Performed By: #### 1 [id number] #### [facility] [address] [place] [address] Vest Baster: Zach Jung MD U Preg Internal QC Present Normal [facility] Comment on above: Performed By: #### 1 [id number] #### [facility] [address] [place] [address] Vest Baster: Zach Jung MD UAon 06-10-2020 U MICRO Indicated Normal [facility] Comment on above: Performed By: #### 1 74954 #### [facility] [address] [place] [address] Vest Baster: Zach Jung MD Appearance, U Clear Normal [facility] Comment on above: Performed By: #### 1 74245 #### [facility] [address] [place] [address] Vest Baster: Zach Jung MD Bacteria, U Few Normal [facility] Comment on above: Performed By: #### 1 97319 #### [facility] [address] [place] [address] Vest Baster: Zach Jung MD Bilirubin, U Negative Normal Negative [facility] Comment on above: Performed By: #### 1 36254 #### [facility] [address] [place] [address] Vest Baster: Zach Jung MD Blood, U Negative Normal Negative [facility] Comment on above: Performed By: #### 1 04099 #### [facility] [address] [place] [address] Vest Baster: Zach Jung MD Color, U Yasmin Normal [facility] Comment on above: Performed By: #### 1 00446 #### [facility] [address] [place] [address] Vest Baster: Zach Jung MD Glucose Qual, U Negative Normal Negative [facility] Comment on above: Performed By: #### 1 02154 #### [facility] [address] [place] [address] Vest Baster: Zach Jung MD Ketones, U Trace Abnormal Negative [facility] Comment on above: Performed By: #### 1 65504 #### [facility] [address] [place] [address] Vest Baster: Zach Jung MD Leukocyte Esterase, U Negative Normal Negative [facility] Comment on above: Performed By: #### 1 45580 #### [facility] [address] [place] [address] Vest Baster: Zach Jung MD Mucous, U Many Normal [facility] Comment on above: Performed By: #### 1 37645 #### [facility] [address] [place] [address] Vest Baster: Zach Jung MD Nitrite, U Positive Abnormal Negative [facility] Comment on above: Performed By: #### 1 76600 #### [facility] [address] [place] [address] Vest Baster: Zach Jung MD pH, U 5.0 Normal 4.5-8.0 [facility] Comment on above: Performed By: #### 1 37525 #### [facility] [address] [place] [address] Vest Baster: Zach Jung MD Protein, U 30 mg/dl Abnormal Negative [facility] Comment on above: Performed By: #### 1 12270 #### [facility] [address] [place] [address] Vest Baster: Zach Jung MD RBC/HPF, U 6 #/HPF High 0-3 [facility] Comment on above: Performed By: #### 1 30093 #### [facility] [address] [place] [address] Vest Baster: Zach Jung MD Specific [place], U 1.026 Normal 1.001-1.035 [facility] Comment on above: Performed By: #### 1 26534 #### [facility] [address] [place] [address] Vest Baster: Zach Jung MD Squamous Epithelial Cells, U 1 #/HPF Normal [facility] Comment on above: Performed By: #### 1 04030 #### [facility] [address] [place] [address] Vest Baster: Zach Jung MD Urobilinogen Qual, U 4.0 mg/dl Abnormal <2.0 mg/dl [facility] Comment on above: Result Comment: EU/d l and mg/dl are equivalent units. Performed By: #### 1 18598 #### [facility] [address] [place] [address] Vest Baster: Zach Jung MD WBC/HPF, U 11 #/HPF High 0-5 [facility] Comment on above: Performed By: #### 1 65881 #### [facility] [address] [place] [address] Vest Baster: Zach Jung MD ALLIED HEALTHon 06-08-2020 [facility] HNO ID: [id number] Author: Sophie Juares (Rt) Service: Radiology Author Type: Speech Coach Type: [facility] Filed: 06/08/2020 3:34 PM Note Text: Radiology Service Progress Note PATIENT NAME: Matthew Huang DATE OF SERVICE: June 08, 2020 [...] Juares RDMS June 08, 2020 3:33 PM [facility] CBC and Differentialon 06-08 Abs Baso <0.03 Normal <0.11 [facility] Comment on above: Performed By: #### C BCDIF, CMP #### [place] [address] Abs Lasalle 0.58 k/uL Normal <0.87 [facility] Comment on above: Performed By: #### C BCDIF, CMP #### [place] [address] Abs Neut 2.61 k/uL Normal 1.45-7.50 [facility] Comment on above: Performed By: #### C BCDIF, CMP #### [place] [address] Absolute nRBC <0.01 Normal <0.01 [facility] Comment on above: Performed By: #### C BCDIF, CMP #### [place] [address] Basophils/100 WBC (Bld) 0.5 % [facility] Comment on above: Performed By: #### C BCDIF, CMP #### [place] [address] DTYPE Auto Diff [facility] Comment on above: Performed By: #### C BCDIF, CMP #### [place] [address] Eosinophils (Bld) [#/Vol] 10*3/uL Normal <0.46 [facility] Comment on above: Performed By: #### C BCDIF, CMP #### [place] [address] Eosinophils/100 WBC (Bld) 0.5 % Normal [facility] Comment on above: Performed By: #### C BCDIF, CMP #### [place] [address] Erythrocyte distribution width (RBC) [Ratio] 12.9 % Normal 11.5-15.0 [facility] Comment on above: Performed By: #### C BCDIF, CMP #### [place] [address] Hematocrit (Bld) [Volume fraction] 44.5 % Normal 36.0-46.0 [facility] Comment on above: Performed By: #### C BCDIF, CMP #### [place] [address] Hemoglobin (Bld) [Mass/Vol] 14.8 g/dL Normal 11.5-15.5 [facility] Comment on above: Performed By: #### C BCDIF, CMP #### [place] [address] Lymphocytes (Bld) [#/Vol] 1.07 10*3/uL Normal 1.00-4.00 [facility] Comment on above: Performed By: #### C BCDIF, CMP #### [place] [address] Lymphocytes/100 WBC (Bld) 24.8 % Normal [facility] Comment on above: Performed By: #### C BCDIF, CMP #### [place] [address] MCH (RBC) [Entitic mass] 30.3 pG Normal 26.0-34.0 [facility] Comment on above: Performed By: #### C BCDIF, CMP #### [place] [address] MCHC (RBC) [Mass/Vol] 33.3 g/dL Normal 30.5-36.0 [facility] Comment on above: Performed By: #### C BCDIF, CMP #### [place] [address] MCV (RBC) [Entitic vol] 91.0 fL Normal 80.0-100.0 [facility] Comment on above: Performed By: #### C BCDIF, CMP #### [place] [address] Monocytes/100 WBC (Bld) 13.4 % Normal [facility] Comment on above: Performed By: #### C BCDIF, CMP #### [place] [address] Neutrophils/100 WBC (Bld) 60.8 % Normal [facility] Comment on above: Performed By: #### C BCDIF, CMP #### [place] [address] NRBCs 0.0 /100 WBC Normal 0 [facility] Comment on above: Performed By: #### C BCDIF, CMP #### [place] [address] Platelet mean volume (Bld) [Entitic vol] 10.4 fL Normal 9.0-12.7 [facility] Comment on above: Performed By: #### C BCDIF, CMP #### [place] [address] Platelets (Bld) [#/Vol] 219 10*3/uL Normal 150-400 [facility] Comment on above: Performed By: #### C BCDIF, CMP #### [place] [address] RBC (Bld) [#/Vol] 4.89 10*6/uL Normal 3.90-5.20 [facility] Comment on above: Performed By: #### C BCDIF, CMP #### [place] [address] WBC (Bld) [#/Vol] 4.32 10*3/uL Normal 3.70-11.00 [facility] Comment on above: Performed By: #### C BCDIF, CMP #### [place] [address] Comp Metabolic Panelon 06-08 Albumin [Mass/Vol] 4.5 g/dL Normal 3.9-4.9 [facility] Comment on above: Performed By: #### C BCDIF, CMP #### [place] [address] ALP [Catalytic activity/Vol] 73 U/L Normal 34-123 [facility] Comment on above: Performed By: #### C BCDIF, CMP #### [place] [address] ALT [Catalytic activity/Vol] 19 U/L Normal 7-38 [facility] Comment on above: Performed By: #### C BCDIF, CMP #### [place] [address] Anion gap [Moles/Vol] 11 mmol/L Normal 9-18 [facility] Comment on above: Performed By: #### C BCDIF, CMP #### [place] [address] AST [Catalytic activity/Vol] 24 U/L Normal 13-35 [facility] Comment on above: Performed By: #### C BCDIF, CMP #### [place] [address] Bilirubin [Mass/Vol] 0.2 mg/dL Normal 0.2-1.3 [facility] Comment on above: Performed By: #### C BCDIF, CMP #### [place] [address] Calcium [Mass/Vol] 9.1 mg/dL Normal 8.5-10.2 [facility] Comment on above: Performed By: #### C PATTI, CMP #### [place] [address] Chloride [Moles/Vol] 102 mmol/L Normal 97-105 [facility] Comment on above: Performed By: #### C PATTI, CMP #### [place] [address] CO2 [Moles/Vol] 23 mmol/L Normal 22-30 [facility] Comment on above: Performed By: #### C PATTI, CMP #### [place] [address] Creatinine [Mass/Vol] 0.98 mg/dL High 0.58-0.96 [facility] Comment on above: Performed By: #### C PATTI, CMP #### [place] [address] eGFR- Amer. >60 Normal >60 [facility] Comment on above: Performed By: #### C PATTI, CMP #### [place] [address] GFR/1.73 sq M predicted among non-blacks MDRD (S/P/Bld) [Vol rate/Area] mL/min/{1.73_m2} Normal >60 [facility] Comment on above: Result Comment: eGFR [...] Performed By: #### C BCDIF, CMP #### [place] [address] Glucose [Mass/Vol] 85 mg/dL Normal 74-99 [facility] Comment on above: Performed By: #### C BCDIF, CMP #### [place] [address] Potassium [Moles/Vol] 3.8 mmol/L Normal 3.7-5.1 [facility] Comment on above: Performed By: #### C BCDIF, CMP #### [place] [address] Protein [Mass/Vol] 7.4 g/dL Normal 6.3-8.0 [facility] Comment on above: Performed By: #### C BCDIF, CMP #### [place] [address] Sodium [Moles/Vol] 136 mmol/L Normal 136-144 [facility] Comment on above: Performed By: #### C BCDIF, CMP #### [place] [address] Urea nitrogen [Mass/Vol] 12 mg/dL Normal 7-21 [facility] Comment on above: Performed By: #### C BCDIF, CMP #### [place] [address] ED NOTEon 06-08-2020 ED NOTE HNO ID: [id number] Author: Cassi (Rn) Wendy RN Service: Nursing Author Type: Registered Nurse Type: ED Notes Filed: 06/08/2020 4:18 PM Note Text: Reviewed all discharge instructions with patient including medications and the need for follow up. Pt verbalized understanding. [facility] ED NOTE HNO ID: [id number] Author: Wong GaytanRn) Andrea, MIRNA Service: ? Author Type: Registered Nurse Type: ED Notes Filed: 06/08/2020 3:31 PM Note Text: Patient resting in bed, rise and fall of chest observed. Safety maintained and will continue to monitor [facility] ED NOTE HNO ID: [id number] Author: Dallas (Rn) MIRNA Engle Service: ? Author Type: Registered [...] NOTEon 06-08-2020 ED PROV NOTE HNO ID: [id number] Author: Josie Rossi MD Service: Emergency Medicine Author Type: Physician Type: ED Provider Notes Filed: 06/08/2020 3:57 PM Note Text: ED Provider Note Patient Name: Matthew Huang SERVICE DATE: 06/08/20 History No chief [...] because of the discomfort. 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 Padder Cushion: ZACHARY Transcribe Date/Time: Jun 08 2020 3:35P Dictated by : Diana STEARNS MD This examination was interpreted and the report reviewed and electronically signed by: Diana STEARNS MD on Jun 08 2020 3:46PM EST US FEMALE PELVIS TRANSVAG Final Result IMPRESSION: No findings to indicate ovarian torsion. Benign 2.3 cm unilocular right ovarian cyst. Small amount of fluid in the endocervical canal. Padder Cushion: ZACHARY Transcribe Date/Time: Jun 08 2020 3:35P Dictated by : Diana STEARNS MD This examination was interpreted and the report reviewed and electronically signed by: Diana STEARNS MD on Jun 08 2020 3:46PM EST US DOPPLER COMPLETE Final Result IMPRESSION: No findings to indicate ovarian torsion. Benign 2.3 cm unilocular right ovarian cyst. Small amount of fluid in the endocervical canal. Padder Cushion: [facility] Transcribe Date/Time: Jun 08 2020 3:35P Dictated [...] her pain Rx Toradol, Pyridium Follow-up with [employer] OFFBEARER SIGNATURE: MD Josie Bautista MD 06/08/20 1557 Normal [facility] HCG Qual, Urineon 06-08-2020 Beta HCG ( test) Ql (U) Negative Normal Negative [facility] Comment on above: Performed By: #### U HCG, UAWMIC #### [facility] [address] [address] US DOPPLER COMPLETEon 2019 US DOPPLER COMPLETE [...] amount of fluid in the endocervical canal. Padder Cushion: ZACHARY Transcribe Date/Time: Jun 08 2020 3:35P Dictated by : Diana STEARNS MD This examination was interpreted and the report reviewed and electronically signed by: Diana STEARNS MD on Jun 08 2020 3:46PM EST [id number] [facility] FEMALE PELVIS TRANSABD LT Don 06-08-2020 FEMALE PELVIS TRANSABD LTD * * *Final [...] amount of fluid in the endocervical canal. Padder Cushion: ZACHARY Transcribe Date/Time: Jun 08 2020 3:35P Dictated by : Diana STEARNS MD This examination was interpreted and the report reviewed and electronically signed by: Diana STEARNS MD on Jun 08 2020 3:46PM EST [id number] [facility] FEMALE PELVIS TRANSVAGon 06-08-2020 FEMALE PELVIS TRANSVAG * * *Final Report* [...] amount of fluid in the endocervical canal. Padder Cushion: ZACHARY Transcribe Date/Time: Jun 08 2020 3:35P Dictated by : Diana STEARNS MD This examination was interpreted and the report reviewed and electronically signed by: Diana STEARNS MD on Jun 08 2020 3:46PM EST [id number] Normal [facility] Urinalysis with Microscopico n 06-08-2020 Bilirubin, Urine 1+ Critically abnormal Negative [facility] Comment on above: Result Comment: Sugg est correlation with clinical findings and serum bilirubin if clinically indicated. Performed By: #### U HCG, UAWMIC #### [facility] [address] [address] Cast SEE COMMENT Normal 0 [facility] Comment on above: Result Comment: 0 Performed By: #### U HCG, UAWMIC #### [place] [address] Clarity (U) Clear Normal Clear [facility] Comment on above: Performed By: #### U HCG, UAWMIC #### [place] [address] Color (U) Yellow Normal Yellow [facility] Comment on above: Performed By: #### U HCG, UAWMIC #### [place] [address] Epithelial cells LM.HPF (Urine sed) [#/Area] SEE COMMENT Normal [facility] Comment on above: Result Comment: 5-10 [facility] Performed By: #### U HCG, UAWMIC #### [place] [address] Glucose Ql (U) Negative Normal Negative [facility] Comment on above: Performed By: #### U HCG, UAWMIC #### [place] [address] Hemoglobin/Blood,Ur Trace Critically abnormal Negative [facility] Comment on above: Performed By: #### U HCG, UAWMIC #### [place] [address] Ketones Ql (U) Negative Normal Negative [facility] Comment on above: Performed By: #### U HCG, UAWMIC #### [place] [address] Leukest Negative Normal Negative [facility] Comment on above: Performed By: #### U HCG, UAWMIC #### [place] [address] Nitrite Ql (U) Negative Normal Negative [facility] Comment on above: Performed By: #### U HCG, UAWMIC #### [place] [address] pH (Bld) 6.0 Normal 5.0-8.0 [facility] Comment on above: Performed By: #### U HCG, UAWMIC #### [place] [address] Protein (U) [Mass/Vol] Trace Critically abnormal Negative [facility] Comment on above: Performed By: #### U HCG, UAWMIC #### [place] [address] RBC (U) [#/Vol] 3-5 Critically abnormal 0-3 [facility] Comment on above: Performed By: #### U HCG, UAWMIC #### [place] [address] Specific [place], Ur >=1.030 Normal 1.005-1.030 [facility] Comment on above: Performed By: #### U HCG, UAWMIC #### [place] [address] Urobilinogen Qn (U) 0.2 E.U./dL Normal 0.2-1.0 [facility] Comment on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 98 % Korina Castañedas STONE POLISHER.PATIENT SERVICES REPRESENTATIVE Work Phone: [facility] 01-06-2023 14:36-0500 Systolic blood pressure 97 mm[Hg] Korina Castañedas STONE POLISHER.PATIENT SERVICES REPRESENTATIVE Work Phone: [facility] 01-03-2023 12:20-0500 Body temperature 97.5 [degF] Angelic Torsney PA-C Work Phone: [facility] 01-03-2023 12:20-0500 Body weight 68.04 kg Angelic Torsney PA-C Work Phone: [facility] 01-03-2023 12:20-0500 Diastolic blood pressure 53 mm[Hg] Angelic Torsney PA-C Work Phone: [facility] 01-03-2023 12:20-0500 Heart rate 82 /min Angelic Torsney PA-C Work Phone: [facility] 01-03-2023 12:20-0500 Respiratory rate 18 /min Angelic Torsney PA-C Work Phone: [facility] 01-03-2023 12:20-0500 SaO2% (BldA) [Mass fraction] 98 % Angelic Torsney PA-C Work Phone: [facility] 01-03-2023 12:20-0500 Systolic blood pressure 114 mm[Hg] Angelic Torsney PA-C Work Phone: [facility] 12-06-2022 14:18-0500 Respiratory rate 14 /min [facility] Work Phone: 12-06-2022 12:08-0500 Body height 157.48 cm [facility] [place] Work Phone: 12-06-2022 12:08-0500 Body mass index (BMI) [Ratio] 26.5 kg/m2 [facility] Work Phone: 12-06-2022 12:08-0500 Body temperature 97.3 [degF] [facility] Work Phone: 12-06-2022 12:08-0500 Body weight 65.77 kg [facility] [place] Work Phone: 12-06-2022 12:08-0500 Diastolic blood pressure 79 mm[Hg] [facility] Work Phone: 12-06-2022 12:08-0500 Heart rate 101 /min [facility] Work Phone: 12-06-2022 12:08-0500 SaO2% (BldA) [Mass fraction] 95 % [facility] Work Phone: 12-06-2022 12:08-0500 Systolic blood pressure 128 mm[Hg] [facility] Work Phone: 10-28-2022 14:28-0500 Body height 157.5 cm Jaja Froimson STONE POLISHER.PATIENT SERVICES REPRESENTATIVE Work Phone: [facility] 10-28-2022 14:28-0500 Body weight 70.17 kg Jaja Froimson STONE POLISHER.PATIENT SERVICES REPRESENTATIVE Work Phone: [facility] 10-28-2022 14:28-0500 Diastolic blood pressure 66 mm[Hg] Jaja Froimson STONE POLISHER.PATIENT SERVICES REPRESENTATIVE Work Phone: [facility] 10-28-2022 14:28-0500 Heart rate 75 /min Jaja Froimson STONE POLISHER.PATIENT SERVICES REPRESENTATIVE Work Phone: [facility] 10-28-2022 14:28-0500 Systolic blood pressure 104 mm[Hg] Jaja Froimson STONE POLISHER.PATIENT SERVICES REPRESENTATIVE Work Phone: [facility] 09-09-2022 15:45-0400 Body temperature 98.01 [degF] Chuckie Hall STONE POLISHER.PATIENT SERVICES REPRESENTATIVE Work Phone: [facility] 09-09-2022 15:45-0400 Diastolic blood pressure 74 mm[Hg] Chuckie Hall STONE POLISHER.PATIENT SERVICES REPRESENTATIVE Work Phone: [facility] 09-09-2022 15:45-0400 Heart rate 81 /min Chuckie Hall STONE POLISHER.PATIENT SERVICES REPRESENTATIVE Work Phone: [facility] 09-09-2022 15:45-0400 Respiratory rate 20 /min Chuckie Hall STONE POLISHER.PATIENT SERVICES REPRESENTATIVE Work Phone: [facility] 09-09-2022 15:45-0400 SaO2% (BldA) [Mass fraction] 98 % Chuckie Hall STONE POLISHER.PATIENT SERVICES REPRESENTATIVE Work Phone: [facility] 09-09-2022 15:45-0400 Systolic blood pressure 110 mm[Hg] Chuckie Hall STONE POLISHER.PATIENT SERVICES REPRESENTATIVE Work Phone: [facility] 09-05-2022 15:28-0400 Body height 157.5 cm Shalonda Krause STONE POLISHER.CNM Work Phone: [facility] 09-05-2022 15:28-0400 Body weight 65.32 kg Shalonda Krause STONE POLISHER.CNM Work Phone: [facility] 09-05-2022 15:28-0400 Diastolic blood pressure 66 mm[Hg] Shalonda Krause STONE POLISHER.CNM Work Phone: [facility] 09-05-2022 15:28-0400 Systolic blood pressure 104 mm[Hg] Shalonda Krause STONE POLISHER.CNM Work Phone: [facility] 07-16-2022 12:56-0400 Body height 157.5 cm Jaja Moss STONE POLISHER.PATIENT SERVICES REPRESENTATIVE Work Phone: [facility] 07-16-2022 12:56-0400 Body weight 72.58 kg Jaja Froimson STONE POLISHER.PATIENT SERVICES REPRESENTATIVE Work Phone: [facility] 07-16-2022 12:56-0400 Diastolic blood pressure 74 mm[Hg] Jaja Froimson STONE POLISHER.PATIENT SERVICES REPRESENTATIVE Work Phone: [facility] 07-16-2022 12:56-0400 Heart rate 97 /min Jaja Froimson STONE POLISHER.PATIENT SERVICES REPRESENTATIVE Work Phone: [facility] 07-16-2022 12:56-0400 Respiratory rate 22 /min Jaja Froimson STONE POLISHER.PATIENT SERVICES REPRESENTATIVE Work Phone: [facility] 07-16-2022 12:56-0400 Systolic blood pressure 121 mm[Hg] Jaja Froimson STONE POLISHER.PATIENT SERVICES REPRESENTATIVE Work Phone: [facility] 07-10-2022 11:48-0400 Body weight 71.67 kg Shalonda Krause STONE POLISHER.CNM Work Phone: [facility] 07-10-2022 11:48-0400 Diastolic blood pressure 60 mm[Hg] Shalonda Krause STONE POLISHER.CNM Work Phone: [facility] 07-10-2022 11:48-0400 Heart rate 88 /min Shalonda Krause STONE POLISHER.CNM Work Phone: [facility] 07-10-2022 11:48-0400 Systolic blood pressure 100 mm[Hg] Shalonda Krause STONE POLISHER.CNM Work Phone: [facility] 06-25-2022 13:23-0400 Body weight 72.69 kg Shalonda Krause STONE POLISHER.CNM Work Phone: [facility] 06-25-2022 13:23-0400 Diastolic blood pressure 60 mm[Hg] Shalonda Krause STONE POLISHER.CNM Work Phone: [facility] 06-25-2022 13:23-0400 Systolic blood pressure 100 mm[Hg] Shalonda Krause STONE POLISHER.CNM Work Phone: [facility] 06-24-2022 13:53-0400 Body weight 72.12 kg Gregorio Connelly MD Work Phone: [facility] 06-24-2022 13:53-0400 Diastolic blood pressure 60 mm[Hg] Gregorio Connelly MD Work Phone: [facility] 06-24-2022 13:53-0400 Systolic blood pressure 104 mm[Hg] Gregorio Connelly MD Work Phone: [facility] 06-03-2022 14:43-0400 Body weight 69.97 kg Shalonda Krause STONE POLISHER.CNM Work Phone: [facility] 06-03-2022 14:43-0400 Diastolic blood pressure 60 mm[Hg] Shalonda Krause STONE POLISHER.CNM Work Phone: [facility] 06-03-2022 14:43-0400 Heart rate 92 /min Shalonda Krause STONE POLISHER.CNM Work Phone: [facility] 06-03-2022 14:43-0400 Systolic blood pressure 100 mm[Hg] Shalonda Krause STONE POLISHER.CNM Work Phone: [facility] 06-03-2022 09:53-0400 Body weight 69.81 kg Vincent Terrence DO Work Phone: [facility] 06-03-2022 09:53-0400 Diastolic blood pressure 67 mm[Hg] Vincent Terrence DO Work Phone: [facility] 06-03-2022 09:53-0400 Heart rate 91 /min Vincent Terrence DO Work Phone: [facility] 06-03-2022 09:53-0400 Systolic blood pressure 100 mm[Hg] Vincent Terrence DO Work Phone: [facility] 05-06-2022 14:33-0400 Body height 160 cm Shalonda Krause STONE POLISHER.CNM Work Phone: [facility] 05-06-2022 14:33-0400 Body weight 70.76 kg Shalonda Krause STONE POLISHER.CNM Work Phone: [facility] 05-06-2022 14:33-0400 Diastolic blood pressure 58 mm[Hg] Shalonda Krause STONE POLISHER.CNM Work Phone: [facility] 05-06-2022 14:33-0400 Systolic blood pressure 94 mm[Hg] Shalonda Krause STONE POLISHER.CNM Work Phone: [facility] 04-17-2022 18:11-0400 Body weight 69.17 kg Shalonda Krause STONE POLISHER.CNM Work Phone: [facility] 04-17-2022 18:11-0400 Diastolic blood pressure 62 mm[Hg] Shalonda Krause STONE POLISHER.CNM Work Phone: [facility] 04-17-2022 18:11-0400 Heart rate 76 /min Shalonda Krause STONE POLISHER.CNM Work Phone: [facility] 04-17-2022 18:11-0400 Systolic blood pressure 102 mm[Hg] Shalonda Krause STONE POLISHER.CNM Work Phone: [facility] 03-06-2022 10:09-0400 Body weight 64.52 kg Shalonda Krause STONE POLISHER.CNM Work Phone: [facility] 03-06-2022 10:09-0400 Diastolic blood pressure 60 mm[Hg] Shalonda Krause STONE POLISHER.CNM Work Phone: [facility] 03-06-2022 10:09-0400 Heart rate 88 /min Shalonda Krause STONE POLISHER.CNM Work Phone: [facility] 03-06-2022 10:09-0400 Systolic blood pressure 104 mm[Hg] Shalonda Krause STONE POLISHER.CNM Work Phone: [facility] 09-21-2021 18:21-0400 Body height 157.4 cm No Pcp Required [facility] 09-21-2021 18:21-0400 Body temperature 98.78 [degF] No Pcp Required [facility] 09-21-2021 18:21-0400 Body weight 60.4 kg No Pcp Required [facility] 09-21-2021 18:21-0400 Diastolic blood pressure 66 mm[Hg] No Pcp Required [facility] 09-21-2021 18:21-0400 Heart rate 112 /min No Pcp Required [facility] 09-21-2021 18:21-0400 Respiratory rate 18 /min No Pcp Required [facility] 09-21-2021 18:21-0400 SaO2% (BldA) [Mass fraction] 98 % No Pcp Required [facility] 09-21-2021 18:21-0400 Systolic blood pressure 110 mm[Hg] No Pcp Required [facility] Encounters Encounter Date Encounter Type Care Provider Facility Start: 10-03-2025 End: 10-03-2025 Emergency department patient visit No Primary Care Physician Facility:[facility] Start: 10-02-2025 End: 10-02-2025 Office outpatient visit 25 minutes Gunter Rubén DO Work Phone: [facility] Comment on above: Arrived Start: 09-27-2025 End: 09-27-2025 Emergency department patient visit Kam Andlivan Facility:[facility] Start: 09-14-2025 End: 09-14-2025 Telephone encounter Angela OVALLE Work Phone: [facility] Start: 08-21-2025 End: 08-21-2025 ambulatory Sivakumar Diaz [email or web address] Work Phone: [facility] Start: 08-21-2025 End: 08-21-2025 Chart abstracting Sivakumar Diaz [facility] [[email or web address] Work Phone: [facility] Start: 08-14-2025 End: 08-14-2025 Office outpatient visit 25 minutes Gunter Rubén DO Work Phone: [facility] Start: 07-10-2025 End: 07-10-2025 ambulatory Tessa Dill RN Work Phone: [facility] Start: 07-10-2025 End: 07-10-2025 Chart abstracting Tessa Dill RN Work Phone: [facility] Start: 07-04-2025 End: 07-04-2025 Emergency department patient visit CHUCKIE WATT Facility:[facility] Start: 07-04-2025 End: 07-04-2025 ambulatory Angela OVALLE Work Phone: [facility] Comment on above: Radiology US Start: 07-04-2025 End: 07-04-2025 Chart abstracting Angela Dinh VASQUEZ Work Phone: [facility] Start: 07-04-2025 End: 07-04-2025 Patient encounter procedure Kathy Parchem RDMS Radiology Start: 06-21-2025 End: 06-21-2025 Patient encounter procedure Jaja Newmanlucila [employer]ONE POLISHER.PATIENT SERVICES REPRESENTATIVE Work Phone: Neurology Comment on above: Chronic migraine wit hout aura, intractable, without status migrainosus (Primary Dx) Start: 06-21-2025 End: 06-21-2025 ambulatory JAJA MOSS Facility:[facility] Start: 06-19-2025 End: 06-19-2025 Office outpatient visit 25 minutes Gunter Rubén DO Work Phone: [facility] Start: 05-29-2025 End: 05-29-2025 Office outpatient visit 25 minutes Gunter Rubén DO Work Phone: [facility] Comment on above: Arrived Start: 05-18-2025 End: 05-22-2025 Evaluation and management of inpatient [facility] Facility:[facility] Start: 05-18-2025 End: 05-18-2025 Emergency department patient visit [facility] Facility:[facility] Start: 05-18-2025 End: 05-18-2025 ambulatory Kathy Parchem RDMS Radiology Comment on above: Radiology US Start: 05-18-2025 End: 05-18-2025 Patient encounter procedure Kathy Parchem RDMS Radiology Start: 05-18-2025 End: 05-18-2025 Telephone encounter Bethany Lee MD Work Phone: [facility] Comment on above: [facility] Start: 05-17-2025 End: 05-18-2025 Telephone encounter Sivakumar Colonjamil HS/CMS Work Phone: [facility] Start: 05-15-2025 End: 05-15-2025 ambulatory Tessa Dill RN Work Phone: [facility] Start: 05-15-2025 End: 05-15-2025 Chart abstracting Tessa Dill RN Work Phone: [facility] Start: 05-11-2025 End: 05-17-2025 Evaluation and management of inpatient LEBRON GUDINO Facility:[facility] Start: 05-11-2025 End: 05-11-2025 Emergency department patient visit JOSIE MEADOWS Facility:[facility] Start: 05-11-2025 End: 05-11-2025 Telephone encounter Kendell Ring MD Work Phone: [facility] Start: 05-11-2025 End: 05-11-2025 Patient encounter procedure Tessa Dill RN Work Phone: [facility] Comment on above: Bipolar disorder, ra pid cycling (HCC-CMS) (Primary Dx) Bipolar disorder, ra pid cycling (HCC-CMS) (Primary Dx); Long-term use of high-risk medication; Therapeutic drug monitoring Start: 05-02-2025 End: 05-02-2025 Telephone encounter Angela OVALLE Work Phone: [facility] Start: 05-01-2025 End: 05-01-2025 Office outpatient visit 25 minutes Gunter Rubén DO Work Phone: [facility] Start: 04-24-2025 End: 04-24-2025 Office outpatient visit 25 minutes Gunter Rubén DO Work Phone: [facility] Comment on above: Generalized anxiety disorder with panic attacks (Primary Dx); Bipolar disorder in full remission, most recent episode unspecified type (HCC-CMS); Therapeutic drug monitoring; Screening for endocrine, metabolic and immunity disorder; Long-term use of high-risk medication; Obsessive-compulsive disorder, unspecified type; Encounter for observation for other suspected diseases and conditions ruled out Start: 04-24-2025 End: 12-04-2025 ambulatory HERBERTH MON[place]NA [facility] Start: 04-20-2025 End: 04-20-2025 Follow-up encounter Hollie Islas PA-C Work Phone: [facility] Comment on above: Results Start: 04-19-2025 End: 04-19-2025 Office outpatient visit 25 minutes Tessa Guerrero [employer]ER.PATIENT SERVICES REPRESENTATIVE Work Phone: [facility] Comment on above: Dysuria (Primary Dx) ; Acute vaginitis Start: 04-19-2025 End: 04-19-2025 ambulatory TESSA GUERRERO Facility:[facility] Start: 04-06-2025 End: 05-18-2025 Telephone encounter Sivakumar Diaz [facility] [[email or web address] Work Phone: [facility] Start: 03-29-2025 End: 03-29-2025 Patient encounter procedure Jaja Moss [employer] POLISHER.PATIENT SERVICES REPRESENTATIVE Work Phone: Neurology Comment on above: Chronic migraine wit hout aura, intractable, without status migrainosus (Primary Dx) Start: 03-29-2025 End: 05-29-2025 Follow-up encounter Nargis [facility] Start: 03-29-2025 End: 03-29-2025 ambulatory DAKOTA GUZMNA Facility:[facility] Start: 03-28-2025 End: 03-28-2025 Emergency department patient visit SABINA SKINNER Facility:[facility] Start: 03-20-2025 End: 03-20-2025 Emergency department patient visit TRINITY KUMAR Facility:[facility] Start: 03-20-2025 End: 03-20-2025 ambulatory Speedy White RN NURSE CEREAL [facility]PER Comment on above: Difficulty Swallowin g Start: 03-20-2025 End: 03-20-2025 Office outpatient visit 25 minutes Herberth Montana DO Work Phone: [facility] Comment on above: Generalized anxiety disorder with panic attacks (Primary Dx); Bipolar disorder in full remission, most recent episode unspecified type ([facility]); Obsessive-compulsive disorder, unspecified type Start: 03-13-2025 End: 03-13-2025 Chart abstracting Tessa Dill RN Work Phone: [facility] Start: 03-13-2025 End: 03-13-2025 ambulatory Tessa Dill RN Work Phone: [facility] Start: 03-10-2025 End: 03-10-2025 Emergency department patient visit No Primary Care Physician -Emergency Department Work Phone: Start: 03-08-2025 End: 03-09-2025 Emergency department patient visit JOSIE JACK Facility:[facility] Start: 03-08-2025 End: 03-08-2025 [facility] Start: 03-07-2025 End: 05-18-2025 Telephone encounter Shelly Roth Work Phone: [facility] Start: 03-07-2025 End: 03-08-2025 ambulatory EM THOMPSON Facility:[facility] Start: 03-07-2025 End: 03-07-2025 Emergency department patient visit TERENCE JOHNSON Facility:[facility] Start: 03-06-2025 End: 03-07-2025 Emergency department patient visit TRINITY KUMAR Facility:[facility] Start: 03-06-2025 End: 03-06-2025 Emergency department patient visit ADELFO VAZQUEZ Facility:[facility] Start: 03-04-2025 End: 03-06-2025 Evaluation and management of inpatient VINCENT SMITH Facility:[facility] Start: 03-03-2025 End: 03-03-2025 BH/MH Visits Sivakumar Diaz [facility] [[email or web address] Work Phone: [facility] Comment on above: Generalized anxiety disorder with panic attacks (Primary Dx) Start: 02-27-2025 End: 03-03-2025 Evaluation and management of inpatient TRINITY KUMAR Facility:[facility] Start: 02-27-2025 End: 02-27-2025 Office outpatient visit 25 minutes Herberth Shethir DO Work Phone: [facility] Comment on above: Bipolar disorder in full remission, most recent episode unspecified type (HCC-CMS) (Primary Dx); Generalized anxiety disorder with panic attacks Start: 02-20-2025 End: 02-20-2025 Office outpatient visit 25 minutes Gunter Rubén DO Work Phone: [facility] Comment on above: Bipolar disorder in full remission, most recent episode unspecified type (HCC-CMS) (Primary Dx); Panic attack; Generalized anxiety disorder with panic attacks; Mixed obsessional thoughts and acts Start: 02-15-2025 End: 02-15-2025 Telephone encounter Danica Lou RN Work Phone: [facility] Comment on above: Equine Dentist - O ther Start: 02-14-2025 End: 02-14-2025 Emergency department patient visit ARASELI BABB Facility:[facility] Start: 02-14-2025 End: 02-14-2025 Emergency department patient visit TRINITY KUMAR Facility:[facility] Start: 02-14-2025 End: 02-14-2025 ambulatory Kathy Parchem RDMS Radiology Comment on above: Radiology US Start: 02-14-2025 End: 02-14-2025 Patient encounter procedure Kathy Parchem RDMS Radiology Start: 02-14-2025 End: 02-14-2025 Telephone encounter Everett Grimes MD Work Phone: [facility] Comment on above: Breast Problem Start: 02-13-2025 End: 02-13-2025 ambulatory Tessa Dill RN Work Phone: [facility] Start: 02-13-2025 End: 02-13-2025 Chart abstracting Tessa Dill RN Work Phone: [facility] Start: 02-08-2025 End: 02-11-2025 BH/MH Visits Sivakumar Diaz [facility] [[email or web address]CMS Work Phone: [facility] Comment on above: Bipolar disorder in full remission, most recent episode unspecified type ([facility]) (Primary Dx) Start: 02-01-2025 End: 02-01-2025 Orders Only Everett Grimes MD Work Phone: [facility] Comment on above: Nipple discharge (Pr imary Dx); Family history of breast cancer; Family history of ovarian cancer Cellulitis of breast (Primary Dx) Breast lesion [N64.9 ] Start: 01-31-2025 End: 01-31-2025 Orders Only Everett Grimes MD Work Phone: Hematology/Oncology Comment on above: Breast lesion (Prima ry Dx); Breast abscess Breast lesion (Prima ry Dx) Start: 01-30-2025 End: 01-30-2025 Office outpatient visit 25 minutes Gunter Rubén HO Work Phone: [facility] Comment on above: Bipolar disorder in full remission, most recent episode unspecified type ([facility]) (Primary Dx); Generalized anxiety disorder with panic attacks Start: 01-26-2025 End: 01-26-2025 ambulatory Sivakumar Diaz [facility] Work Phone: [facility] Start: 01-26-2025 End: 01-26-2025 Chart abstracting Sivakumar Diaz [facility] Work Phone: [facility] Start: 01-22-2025 End: 01-22-2025 ambulatory Bekah Aguilera RN NURSE [facility]EREAL [facility]PER Comment on above: Breast Problem Start: 01-20-2025 End: 01-20-2025 Emergency department patient visit TRINITYYA KUMAR Facility:[facility] Start: 01-15-2025 End: 01-15-2025 Orders Only Bere Roque MD Work Phone: Infectious Disease Comment on above: Nausea Start: 01-09-2025 Emergency department patient visit TRINITYYA KUMAR Facility:[facility] Start: 01-09-2025 End: 01-09-2025 ambulatory Katie Powell RN NURSE [facility] Comment on above: Breast Problem Start: 01-08-2025 End: 01-08-2025 ambulatory Lulu Omalley RN NURSE [facility] Comment on above: Rash Start: 01-01-2025 Emergency department patient visit TRINITY KUMAR Facility:[facility] Start: 01-01-2025 End: 01-01-2025 ambulatory Nicole Santiago RN NURSE [facility] Comment on above: Cellulitis Start: 12-31-2024 End: 12-31-2024 Emergency department patient visit YO LEON Facility:[facility] Start: 12-31-2024 End: 12-31-2024 ambulatory Gabriella Batres RN NURSE [facility] Comment on above: Mass Breast Problem Start: 12-30-2024 End: 12-30-2024 Office outpatient visit 5 minutes Tessa Dill RN Work Phone: [facility] Comment on above: Bipolar disorder in full remission, most recent episode unspecified type (HCC-CMS) (Primary Dx) Start: 12-20-2024 End: 12-20-2024 ambulatory DAKOTA GUZMAN Facility:[facility] Start: 12-20-2024 End: 12-20-2024 Patient encounter procedure Jaja Moss [employer]ER.PATIENT SERVICES REPRESENTATIVE Work Phone: Neurology Comment on above: Chronic migraine wit hout aura, intractable, without status migrainosus (Primary Dx) Start: 12-05-2024 End: 12-05-2024 Office outpatient visit 25 minutes Herberth Montana DO Work Phone: [facility] Comment on above: Bipolar disorder in full remission, most recent episode unspecified type (HCC-CMS) (Primary Dx); Generalized anxiety disorder; Other obsessive-compulsive disorders Start: 11-28-2024 End: 11-28-2024 ambulatory Tessa Dill RN Work Phone: [facility] Start: 11-28-2024 End: 11-28-2024 Chart abstracting Tessa Dill RN Work Phone: [facility] Start: 11-11-2024 End: 11-11-2024 ambulatory Janneth Barrientos RN NURSE [facility]PER Start: 11-11-2024 End: 11-11-2024 Follow-up encounter Janneth Barrientos RN NURSE [facility]AL [facility]PER Comment on above: ED Follow-up Start: 11-09-2024 End: 11-09-2024 ambulatory Josie Stokes RT(R) Radiology Comment on above: Radiology XR Start: 11-09-2024 End: 11-09-2024 Patient encounter procedure Josie Stokes RT(R) Radiology Start: 11-09-2024 Emergency department patient visit CERSLADE A KLEB Facility:[facility] Start: 10-24-2024 End: 10-24-2024 [facility] Start: 10-24-2024 End: 10-24-2024 Patient encounter procedure Chuckie Hall APRN.PATIENT SERVICES REPRESENTATIVE Work Phone: [facility] Comment on above: Vaginal discharge (P rimary Dx) Start: 10-11-2024 End: 10-11-2024 Telephone encounter Angela OVALLE Work Phone: [facility] Start: 10-06-2024 End: 10-06-2024 Telephone encounter Angela OVALLE Work Phone: [facility] Start: 10-03-2024 End: 10-03-2024 Telephone encounter Meccamaría Harris [facility] Comment on above: Insurance Authorizat ion (Ubrelvy 100MG tablets); Ubrelvy 100MG tablets Start: 10-03-2024 End: 10-03-2024 Office outpatient visit 25 minutes Herberth Montana DO Work Phone: [facility] Comment on above: Bipolar disorder in partial remission, most recent episode unspecified type ([facility]) (Primary Dx); Generalized anxiety disorder Start: 09-27-2024 End: 09-27-2024 ambulatory CERISE A KLEB Facility:[facility] Start: 09-27-2024 End: 09-27-2024 Patient encounter procedure Jaja Moss APRN.PATIENT SERVICES REPRESENTATIVE Work Phone: Neurology Comment on above: Chronic migraine wit hout aura, intractable, without status migrainosus (Primary Dx) Start: 09-26-2024 End: 09-26-2024 ambulatory Tessa Dill RN Work Phone: [facility] Start: 09-26-2024 End: 09-26-2024 Chart abstracting Tessa Dill RN Work Phone: [facility] Start: 09-20-2024 End: 09-20-2024 Emergency department patient visit CERISE A KLEB Facility:[facility] Start: 09-20-2024 End: 09-20-2024 ambulatory CERISE A KLEB Facility:[facility] Start: 09-20-2024 End: 09-20-2024 Patient encounter procedure Alize Alonso APRN.PATIENT SERVICES REPRESENTATIVE Work Phone: [facility] Comment on above: Hand injury, left, i nitial encounter (Primary Dx) Start: 09-08-2024 End: 09-08-2024 Telephone encounter Sol Santos APRN.CNP Work Phone: [facility] Comment on above: Results Start: 09-07-2024 End: 09-07-2024 ambulatory CERISE A KLEB Facility:[facility] Start: 09-07-2024 End: 09-07-2024 Office outpatient visit 25 minutes Sirisha Bulat [employer]ONE POLISHER.PATIENT SERVICES REPRESENTATIVE Work Phone: [facility] Comment on above: Vaginal irritation ( Primary Dx) Start: 08-19-2024 End: 08-19-2024 ambulatory CERISE A KLEB Facility:[facility] Start: 08-19-2024 End: 08-19-2024 Patient encounter procedure Sol Santos APRN.PATIENT SERVICES REPRESENTATIVE Work Phone: [facility] Comment on above: Itching in the vagin al area (Primary Dx) Start: 08-11-2024 End: 08-11-2024 ambulatory SELF Facility:[facility] Start: 08-11-2024 End: 08-11-2024 Office outpatient visit 15 minutes Sirisha Bulat [employer]ONE POLISHER.PATIENT SERVICES REPRESENTATIVE Work Phone: [facility] Comment on above: Acute maxillary sinu sitis, recurrence not specified (Primary Dx) Start: 07-31-2024 End: 07-31-2024 ambulatory CERISE A KLEB Facility:[facility] Start: 07-31-2024 End: 07-31-2024 Patient encounter procedure Kiara Ibarra ERIC.PATIENT SERVICES REPRESENTATIVE Work Phone: [facility] Comment on above: Migraine without aur a and without status migrainosus, not intractable (Primary Dx); Left ear pain; Eustachian tube disorder, left Start: 07-04-2024 End: 07-04-2024 Patient encounter procedure Jajaher Isa REYES.PATIENT SERVICES REPRESENTATIVE Work Phone: Neurology Comment on above: Chronic migraine wit hout aura, intractable, without status migrainosus (Primary Dx) Start: 06-21-2024 End: 06-21-2024 Telephone encounter Angela Dinh VASQUEZ Work Phone: [facility] Start: 06-13-2024 End: 06-13-2024 Office outpatient visit 25 minutes Herberth Montana DO Work Phone: [facility] Comment on above: Bipolar disorder in partial remission, most recent episode unspecified type (HCC-CMS) (Primary Dx); Generalized anxiety disorder; Mixed obsessional thoughts and acts; Long-term use of high-risk medication; Screening for endocrine, metabolic and immunity disorder Start: 06-01-2024 End: 06-01-2024 Telephone encounter Angela Dinh VASQUEZ Work Phone: [facility] Start: 05-18-2024 ambulatory No Pcp [facility] Start: 05-18-2024 Patient encounter procedure No Pcp STONE POLISHER Appointment Center Start: 04-22-2024 End: 04-22-2024 Office outpatient visit 5 minutes Tessa Dill RN Work Phone: [facility] Comment on above: Bipolar disorder, in partial remission, most recent episode depressed (HCC-CMS) (Primary Dx); Generalized anxiety disorder Start: 04-07-2024 End: 04-07-2024 Office outpatient visit 5 minutes Tessa Dill RN Work Phone: [facility] Comment on above: Bipolar disorder, in partial remission, most recent episode depressed (HCC-CMS) (Primary Dx); Generalized anxiety disorder Start: 04-04-2024 ambulatory Chitra Anthony RT(R) R adiology Comment on above: Radiology XR Start: 04-04-2024 End: 04-04-2024 Patient encounter procedure Dakota Guzman APRN.PATIENT SERVICES REPRESENTATIVE Work Phone: Neurology Comment on above: Chronic migraine wit hout aura, intractable, without status migrainosus (Primary Dx) Start: 04-04-2024 Telephone encounter Dakota Dowling APRN.PATIENT SERVICES REPRESENTATIVE Work Phone: Neurology Comment on above: Referral Request Start: 04-04-2024 End: 04-04-2024 Office outpatient visit 15 minutes Serene Higginbotham MD Work Phone: Orthopaedics Comment on above: Sprain of left ankle , unspecified ligament, subsequent encounter (Primary Dx) Start: 04-04-2024 End: 04-04-2024 Subsequent hospital visit by physician Xr [facility] Work Phone: Radiology Comment on above: Sprain [...] End: 03-21-2024 Office outpatient visit 25 minutes Herberth Montana DO Work Phone: [facility] Comment on above: Bipolar disorder, in partial remission, most recent episode depressed ([facility]) (Primary Dx); Generalized anxiety disorder; Bipolar disorder in partial remission, most recent episode unspecified type (HCC-CMS) Start: 03-16-2024 End: 03-16-2024 ambulatory Tessa Dill RN Work Phone: [facility] Start: 03-16-2024 End: 03-16-2024 Chart abstracting Tessa Dill RN Work Phone: [facility] Start: 03-11-2024 End: 03-11-2024 Office outpatient visit 5 minutes Tessa Dill RN Work Phone: [facility] Comment on above: Bipolar disorder, in partial remission, most recent episode depressed (HCC-CMS) (Primary Dx) Start: 02-22-2024 End: 02-22-2024 Office outpatient visit 25 minutes Herberth Montana DO Work Phone: [facility] Comment on above: Bipolar disorder, in partial remission, most recent episode depressed (HCC-CMS) (Primary Dx); Bipolar disorder in partial remission, most recent episode unspecified type (HCC-CMS); Generalized anxiety disorder Start: 02-17-2024 Telephone encounter Jaja anglin APRN.CNP Work Phone: Neurology Comment on above: Insurance Authorizat ion; [employer] renewal-[place] [employer]/[facility] Start: 02-08-2024 End: 02-08-2024 Patient encounter procedure Gabriela Andrade PA-C Work Phone: Orthopedics Comment on above: Closed nondisplaced fracture of shaft of fifth metacarpal bone of left hand with routine healing, subsequent encounter (Primary Dx) Start: 02-08-2024 End: 02-08-2024 Subsequent hospital visit by physician [facility] Work Phone: Radiology Comment on above: Closed nondisplaced fracture of shaft of fifth metacarpal bone of left hand with routine healing, subsequent encounter [S62.357D] Start: 01-31-2024 ambulatory Nicole lewis RN NURSE CEREAL POPPER Comment on above: Opened In Error Start: 01-29-2024 End: 01-29-2024 Office outpatient visit 5 minutes Tessa Dill RN Work Phone: [facility] Comment on above: Bipolar disorder, in partial remission, most recent episode depressed (HCC-CMS) (Primary Dx) Start: 01-28-2024 End: 01-28-2024 Patient encounter procedure Cast Tech Lolis Work Phone: Orthopaedics Comment on above: Closed nondisplaced fracture of shaft of fifth metacarpal bone of left hand with routine healing, subsequent encounter (Primary Dx) Start: 01-28-2024 End: 01-28-2024 Subsequent hospital visit by physician [facility] Work Phone: Radiology Comment on above: Pain [R52] Start: 01-15-2024 ambulatory Tessa Hayden Work Phone: [facility] Comment on above: Closed nondisplaced fracture of shaft of fifth metacarpal bone of left hand, initial encounter (Primary Dx) Start: 01-15-2024 Chart abstracting Tessa Dill RN Work Phone: [facility] Start: 01-11-2024 End: 01-11-2024 Patient encounter procedure [employer] Work Phone: Orthopaedics Comment on above: Closed nondisplaced fracture of shaft of fifth metacarpal bone of left hand, initial encounter (Primary Dx) Start: 01-08-2024 End: 01-08-2024 Office outpatient visit 5 minutes Tessa Dill RN Work Phone: [facility] Comment on above: Bipolar disorder, in partial remission, most recent episode depressed (HCC-CMS) (Primary Dx) Start: 01-06-2024 End: 01-06-2024 Orders Only Gabriela Andrade PA-C Work Phone: Orthopaedics Comment on above: Closed nondisplaced fracture of shaft of fifth metacarpal bone of left hand, initial encounter (Primary Dx) Intractable chronic migraine without aura and without status migrainosus (Primary Dx) Start: 01-01-2024 End: 01-01-2024 Subsequent hospital visit by physician [facility] Work Phone: Radiology Comment on above: Closed nondisplaced fracture of shaft of fifth metacarpal bone of left hand, initial encounter [S62.357A] Start: 01-01-2024 End: 01-01-2024 Patient encounter procedure Gabriela Andrade PA-C Work Phone: Orthopaedics Comment on above: Closed nondisplaced fracture of shaft of fifth metacarpal bone of left hand, initial encounter Closed nondisplaced fracture of shaft of fifth metacarpal bone of left hand, initial encounter (Primary Dx) Pain (Primary Dx) Start: 01-01-2024 End: 01-01-2024 Office outpatient visit 5 minutes Tessa Dill RN Work Phone: [facility] Comment on above: Bipolar disorder, in partial remission, most recent episode depressed (HCC-CMS) (Primary Dx) Start: 12-28-2023 End: 12-28-2023 ambulatory Xr [facility] Comment on above: Radiology XR Start: 12-28-2023 End: 12-28-2023 Patient encounter procedure Xr [facility] Comment on above: Injury of left hand, initial encounter (Primary Dx); Closed nondisplaced fracture of shaft of fifth metacarpal bone of left hand, initial encounter Start: 12-11-2023 End: 12-11-2023 Office outpatient visit 5 minutes Tessa Dill RN Work Phone: [facility] Comment on above: Bipolar disorder, in partial remission, most recent episode depressed (HCC-CMS) (Primary Dx) Start: 11-30-2023 End: 11-30-2023 Office outpatient visit 25 minutes Herberth Montana DO Work Phone: [facility] Comment on above: Bipolar disorder in partial remission, most recent episode unspecified type (HCC-CMS) (Primary Dx); Generalized anxiety disorder; Mixed obsessional thoughts and acts; Bipolar disorder, in partial remission, most recent episode depressed (HCC-CMS) Start: 10-23-2023 ambulatory Peri Osman [facility] [place] Comment on above: Population [facility] (Maile Beaver MD offboarding/) Start: 10-14-2023 End: 10-14-2023 Patient encounter procedure Jaja Moss APRN.PATIENT SERVICES REPRESENTATIVE Work Phone: Neurology Comment on above: Intractable chronic migraine without aura and without status migrainosus (Primary Dx) Start: 10-09-2023 End: 10-09-2023 Office outpatient visit 5 minutes Tessa Dill RN Work Phone: [facility] Comment on above: Generalized anxiety disorder (Primary Dx) Start: 10-01-2023 Telephone encounter Sol mcgovern APRN.PATIENT SERVICES REPRESENTATIVE Work Phone: [facility] Comment on above: Results Start: 09-29-2023 End: 09-29-2023 Patient encounter procedure Robert Lord PA-C Work Phone: [facility] Comment on above: Recurrent UTI (Prima ry Dx); Acute otitis externa of right ear, unspecified type Start: 09-28-2023 End: 09-28-2023 Office outpatient visit 25 minutes Herberth Shethir DO Work Phone: [facility] Comment on above: Bipolar disorder, cu rrent episode mixed, severe, without psychotic features (HCC-CMS) (Primary Dx); Bipolar disorder in partial remission, most recent episode unspecified type (HCC-CMS); Generalized anxiety disorder Start: 09-24-2023 Telephone encounter Angela alvarez VASQUEZ Work Phone: [facility] Start: 09-14-2023 End: 09-14-2023 Patient encounter procedure Janay Anglin APRN.PATIENT SERVICES REPRESENTATIVE Work Phone: [facility] Comment on above: Acute otitis externa of both ears, unspecified type (Primary Dx) Start: 09-04-2023 End: 09-04-2023 Office outpatient visit 5 minutes Tessa Dill RN Work Phone: [facility] Comment on above: Bipolar disorder, cu rrent episode mixed, severe, without psychotic features (HCC-CMS) (Primary Dx); Generalized anxiety disorder Start: 08-24-2023 End: 08-24-2023 Office outpatient visit 25 minutes Herberth Shethir DO Work Phone: [facility] Comment on above: Bipolar disorder, cu rrent episode mixed, severe, without psychotic features (HCC-CMS) (Primary Dx); Generalized anxiety disorder; Bipolar disorder in partial remission, most recent episode unspecified type (HCC-CMS) Start: 07-15-2023 End: 07-15-2023 Patient encounter procedure Jaja Moss APRN.PATIENT SERVICES REPRESENTATIVE Work Phone: Neurology Comment on above: Intractable chronic migraine without aura and without status migrainosus (Primary Dx) Start: 07-14-2023 End: 07-14-2023 Office outpatient visit 15 minutes Huan Liu STONE POLISHER.PATIENT SERVICES REPRESENTATIVE Work Phone: [facility] Comment on above: Dysuria (Primary Dx) Start: 07-06-2023 End: 07-06-2023 Office outpatient visit 25 minutes Gunter Rubén HO Work Phone: [facility] Comment on above: Generalized anxiety disorder; Bipolar disorder in partial remission, most recent episode unspecified type (HCC-CMS) Start: 07-06-2023 End: 07-06-2023 Patient encounter procedure Chitra Berg LPN Work Phone: [facility] Comment on above: Generalized anxiety disorder (Primary Dx); Bipolar disorder, current episode mixed, mild (HCC-CMS); Obsessive-compulsive disorder, unspecified type Start: 07-01-2023 End: 07-01-2023 ambulatory Sabina Barrientos MD Work Phone: [facility] Comment on above: Bacterial sinusitis (Primary Dx) Start: 07-01-2023 End: 07-01-2023 Telemedicine consultation with patient Sabina Barrientos MD Work Phone: [facility] Start: 06-09-2023 End: 06-09-2023 Patient encounter procedure Jaja Moss APRN.PATIENT SERVICES REPRESENTATIVE Work Phone: Neurology Comment on above: Intractable chronic migraine without aura and without status migrainosus (Primary Dx) Start: 05-29-2023 End: 05-29-2023 Office outpatient visit 5 minutes Tessa Dill RN Work Phone: [facility] Comment on above: Bipolar disorder, cu rrent episode mixed, severe, without psychotic features (HCC-CMS) (Primary Dx); Generalized anxiety disorder Start: 05-23-2023 Refill Jaja Froims on [employer].PATIENT SERVICES REPRESENTATIVE Work Phone: Neurology Comment on above: Refill Request Start: 05-18-2023 End: 05-18-2023 Office outpatient visit 25 minutes GunterRefresh.ioir DO Work Phone: [facility] Comment on above: Generalized anxiety disorder; Bipolar disorder in partial remission, most recent episode unspecified type (HCC-CMS) Start: 05-18-2023 End: 05-18-2023 Patient encounter procedure Mayda May RN Work Phone: [facility] Comment on above: Bipolar disorder, cu rrent episode mixed, severe, without psychotic features (HCC-CMS) (Primary Dx) Start: 04-27-2023 End: 04-27-2023 Office outpatient visit 5 minutes Tessa Dill RN Work Phone: [facility] Comment on above: Bipolar disorder, cu rrent episode mixed, severe, without psychotic features (HCC-CMS) (Primary Dx); Generalized anxiety disorder Start: 04-03-2023 End: 04-03-2023 Office outpatient visit 5 minutes Tessa Dill RN Work Phone: [facility] Comment on above: Bipolar disorder, cu rrent episode mixed, severe, without psychotic features (HCC-CMS) (Primary Dx); Generalized anxiety disorder Start: 03-23-2023 End: 03-23-2023 Office outpatient visit 25 minutes Gunter Rubén DO Work Phone: [facility] Comment on above: Bipolar disorder in partial remission, most recent episode unspecified type (HCC-CMS) (Primary Dx); Generalized anxiety disorder Start: 02-27-2023 End: 02-27-2023 Office outpatient visit 5 minutes Tessa Dill RN Work Phone: [facility] Comment on above: Bipolar disorder, cu rrent episode mixed, severe, without psychotic features (HCC-CMS) (Primary Dx) Start: 02-20-2023 End: 02-20-2023 Office outpatient visit 5 minutes Tessa Dill RN Work Phone: [facility] Comment on above: Bipolar disorder, cu rrent episode mixed, severe, without psychotic features (HCC-CMS) (Primary Dx); Generalized anxiety disorder Start: 02-19-2023 Telephone encounter Angela Angel Luis alvarez JUNIOR ASSISTANT MANAGER Work Phone: [facility] Start: 02-02-2023 End: 02-02-2023 Office outpatient visit 25 minutes Cherryir DO Work Phone: [facility] Comment on above: Bipolar disorder in partial remission, most recent episode unspecified type (HCC-CMS) (Primary Dx) Start: 02-02-2023 End: 02-02-2023 Patient encounter procedure Ainsley Kirkland RN Work Phone: [facility] Comment on above: Bipolar disorder, cu rrent episode mixed, severe, without psychotic features (HCC-CMS) (Primary Dx) Start: 01-27-2023 End: 01-27-2023 Patient encounter procedure Maile Beaver MD Work Phone: Internal Medicine Comment on above: Wellness examination (Primary Dx); Rash of foot; Nevus; Constipation, unspecified constipation type; Atypical chest pain Start: 01-27-2023 End: 01-27-2023 Patient encounter status Malie Beaver MD Work Phone: Internal Medicine Start: 01-06-2023 End: 01-06-2023 Office outpatient visit 15 minutes Korina Nina APRN.PATIENT SERVICES REPRESENTATIVE Work Phone: [facility] Comment on above: Fluid level behind t ympanic membrane of both ears (Primary Dx); Tinnitus of right ear; Hearing difficulty, bilateral Start: 01-05-2023 End: 01-05-2023 Office outpatient visit 25 minutes Gunter Rubén DO Work Phone: [facility] Comment on above: Bipolar disorder in partial remission, most recent episode unspecified type (HCC-CMS) Start: 02-13-2023 E-mail encounter fro m caregiver Maile Beaver MD Work Phone: [facility] Start: 01-05-2023 End: 01-05-2023 Patient encounter procedure Chucho Jones RN Work Phone: [facility] Comment on above: Bipolar disorder, cu rrent episode mixed, severe, without psychotic features (HCC-CMS) (Primary Dx) Appointment Time Brooklynn nge Start: 01-03-2023 End: 01-03-2023 Patient encounter procedure Angelic Gan PA-C Work Phone: [facility] Comment on above: Acute otitis media, right (Primary Dx); Nausea and vomiting, unspecified vomiting type Start: 01-01-2023 End: 01-01-2023 Office outpatient visit 5 minutes Tessa Dill RN Work Phone: [facility] Comment on above: Bipolar disorder, cu rrent episode mixed, severe, without psychotic features (HCC-CMS) (Primary Dx); Generalized anxiety disorder Start: 12-06-2022 End: 12-06-2022 Emergency department patient visit [facility] Start: 11-27-2022 Refill Jaja Froims on [employer].PATIENT SERVICES REPRESENTATIVE Work Phone: Neurology Comment on above: Refill Request Start: 10-28-2022 End: 10-28-2022 Patient encounter procedure Jaja Froimson [employer]ONE POLISHER.PATIENT SERVICES REPRESENTATIVE Work Phone: Neurology Comment on above: Intractable migraine without aura and without status migrainosus (Primary Dx); Lightheadedness; Exertional headache Start: 10-27-2022 ambulatory Jaja Froims on [employer].PATIENT SERVICES REPRESENTATIVE Work Phone: Neurology Comment on above: Migraine Start: 09-19-2022 ambulatory Shalonda OJEDA RN.CN Work Phone: OB/Gynecology Comment on above: Bleeding Start: 09-09-2022 End: 09-09-2022 Patient encounter procedure Chuckie Hall STONE POLISHER.PATIENT SERVICES REPRESENTATIVE Work Phone: [facility] Comment on above: UTI symptoms (Primar y Dx) Start: 09-05-2022 End: 09-05-2022 Patient encounter procedure Shalonda Krause APRN.CNM Work Phone: OB/Gynecology Comment on above: Encounter for insert ion of mirena IUD (Primary Dx); History of gestational diabetes; care and examination [Z39.2 (ICD-10-CM)]; care and examination Start: 08-13-2022 ambulatory Jaja gaytan STONE POLISHER.PATIENT SERVICES REPRESENTATIVE Work Phone: [facility] Start: 08-13-2022 Patient encounter procedure Jaja Moss [employer]ONE POLISHER.PATIENT SERVICES REPRESENTATIVE Work Phone: Neurology Comment on above: Appointment Start: 07-16-2022 End: 07-16-2022 Patient encounter procedure Jaja Moss [employer]ONE POLISHER.PATIENT SERVICES REPRESENTATIVE Work Phone: Neurology Comment on above: Bilateral occipital neuralgia (Primary Dx); Migraine without aura and without status migrainosus, not intractable; 38 weeks gestation of Start: 07-15-2022 ambulatory Vincent Watkins Terrence DO Work Phone: Endocrinology Comment on above: High sugars Start: 07-10-2022 End: 07-10-2022 Patient encounter procedure Shalonda Krause APRN.NATACHA Work Phone: OB/Gynecology Comment on above: care in thi rd trimester (Primary Dx); 37 weeks gestation of Start: 07-03-2022 Telephone encounter Shalonda zhang APRN.CNM Work Phone: OB/Gynecology Comment on above: Appointment Start: 07-02-2022 ambulatory Vincent L Terrence DO Work Phone: Endocrinology Comment on above: Lancets Start: 06-30-2022 End: 06-30-2022 ambulatory Vincent L Terrence DO Work Phone: Endocrinology Comment on above: Diet controlled gest ational diabetes mellitus (GDM) in third trimester (Primary Dx) Start: 06-30-2022 End: 06-30-2022 Telemedicine consultation with patient Vincent Fischerst DO Work Phone: [facility] Start: 06-26-2022 Telephone encounter Shalonda zhang APRN.CNM Work Phone: OB/Gynecology Comment on above: Results Start: 06-25-2022 ambulatory Shalonda OJEDA RN.CNM Work Phone: OB/Gynecology Comment on above: Blood Sugar Start: 06-25-2022 End: 06-25-2022 Patient encounter procedure Shalonda Krause APRN.CNCaleb Work [...] pain Start: 06-11-2022 End: 06-11-[address] Work Phone: [facility] Comment on above: Blood Sugar Numbers Start: 06-11-2022 End: 06-11-2022 Nutrition therapy Lebron Juares RD Work Phone: Endocrinology Comment on above: Medical [...] affecting second Start: 06-02-2022 ambulatory Shalonda OJEDA RN.NATACHA Work Phone: OB/Gynecology Comment on above: Blood Sugar Numbers Start: 05-27-2022 ambulatory Shalonda OJEDA RN.CONNORM Work Phone: OB/Gynecology Comment on above: Bv [...] End: 04-17-2022 Patient encounter procedure Shalonda Krause APRN.CNM Work Phone: OB/Gynecology Comment on above: care in sec ond trimester (Primary Dx); 25 weeks gestation of Start: 04-09-2022 End: 04-09-2022 ambulatory Kelsey Giraldo MD Work Phone: Pediatric Cardiology Start: 04-09-2022 End: 04-09-2022 Patient encounter procedure Kelsey Giraldo MD Work Phone: [facility] Start: 03-17-2022 Telephone encounter Shalonda zhang APRN.CNM Work Phone: OB/Gynecology Comment on above: Pain, [...] End: 09-21-2021 Emergency department [facility] Start: 10-26-2014 End: 09-17-2020 Patient encounter status Serene Higginbotham MD Work Phone: [facility] Procedures Date Procedure Procedure Detail Performing Clinician Start: 09-22-2025 End: 09-22-2025 Psychotherapy w/patient 30 minutes Obsessive-compulsive disorder, unspecified type Angela OVALLE Work Phone: Comment on above: Arrived Start: 09-05-2025 End: 09-05-2025 Psychotherapy w/patient 45 minutes Generalized anxiety disorder with panic attacks Angela OVALLE Work Phone: Comment on above: Arrived Start: 08-28-2025 End: 08-28-2025 Psychotherapy w/patient 30 minutes Bipolar disorder, in partial remission, most recent episode hypomanic Angela OVALLE Work Phone: Start: 08-22-2025 End: 08-22-2025 Psychotherapy w/patient 45 minutes Bipolar disorder, in partial remission, most recent episode hypomanic Angela OVALLE Work Phone: Start: 08-11-2025 End: 08-11-2025 Psychotherapy w/patient 30 minutes Post traumatic stress disorder Angela OVALLE Work Phone: Comment on above: Arrived Start: 08-04-2025 End: 08-04-2025 Psychotherapy w/patient 45 minutes Obsessive-compulsive disorder, unspecified type Angela OVALLE Work Phone: Comment on above: Arrived Start: 07-28-2025 End: 07-28-2025 Psychotherapy w/patient 45 minutes Obsessive-compulsive disorder, unspecified type Angela OVALLE Work Phone: Comment on above: Arrived Start: 07-13-2025 End: 07-13-2025 Psychotherapy w/patient 30 minutes Bipolar disorder, in partial remission, most recent episode hypomanic (CMS & HHS-HCC) Angela OVALLE Work Phone: Start: 06-22-2025 End: 06-22-2025 Psychotherapy w/patient 45 minutes Bipolar disorder, in partial remission, most recent episode hypomanic (CMS & HHS-HCC) Angela OVALLE Work Phone: Start: 05-23-2025 End: 05-23-2025 Psychotherapy w/patient 45 minutes Borderline personality disorder (CMS & HHS-HCC) Angela OVALLE Work Phone: Comment on above: Arrived Start: 05-08-2025 End: 05-08-2025 Psychotherapy w/patient 45 minutes Bipolar disorder in full remission, most recent episode unspecified type (HCC-CMS) Angela OVALLE Work Phone: Comment on above: Bipolar disorder in full remission, most recent episode unspecified type (HCC-CMS) (Primary Dx) Start: 04-24-2025 Lipid 1996 panel - S farhan or Plasma Angela OVALLE Work Phone: Start: 05-28-2025 Urnls dip stick/tabl et rgnt auto w/o microscopy Tessa Guerrero [employer]ISHER.PATIENT SERVICES REPRESENTATIVE Work Phone: Start: 03-24-2025 End: 03-24-2025 Psychotherapy [...] real t noelle with image limited Everett Grimes MD Work Phone: Start: 02-01-2025 Digital breast tomosynthesis bilateral Everett Grimes MD Work Phone: Start: 01-17-2025 End: 01-17-2025 [...] full remission, most recent episode unspecified type ([facility]) Start: 11-25-2024 End: 11-25-2024 Psychotherapy w/patient 45 [...] obsessional thoughts and acts Start: 06-13-2024 Lipid [facility] panel - S farhan or Plasma Herberth Montana DO Work Phone: Start: 05-10-2024 End: 05-10-2024 [...] 02-08-2024 Radex hand minimum 3 views Gabriela Stills PA-C Work Phone: Start: 02-05-2024 End: 02-05-2024 [...] Radex hand minimum 3 views Tia Bowen STONE POLISHER.PATIENT SERVICES REPRESENTATIVE Work Phone: Start: 12-24-2023 End: 12-24-2023 Psychotherapy [...] bacterial quanttative colony count urine Jcarlos Murguia STONE POLISHER.PATIENT SERVICES REPRESENTATIVE Work Phone: Start: 09-29-2023 Urnls dip stick/tabl et rgnt auto w/o microscopy Jcarlosblanche Murguia STONE POLISHER.PATIENT SERVICES REPRESENTATIVE Work Phone: Start: 08-14-2023 End: 08-14-2023 Psychotherapy [...] stick/tabl et rgnt auto w/o microscopy Huan Noe STONE POLISHER.PATIENT SERVICES REPRESENTATIVE Work Phone: Start: 07-10-2023 End: 07-10-2023 Psychotherapy w/patient 60 minutes Post traumatic stress disorder Angela SOTOW Work Phone: Comment on above: Post traumatic stres s disorder (Primary Dx); Generalized anxiety disorder Start: 07-02-2023 End: 07-02-2023 Psychotherapy w/patient 60 minutes Obsessive-compulsive disorder, unspecified type Angela SOTOW Work Phone: Comment on above: Obsessive-compulsive disorder, unspecified type (Primary Dx); Post traumatic stress disorder Start: 06-25-2023 End: 06-25-2023 Psychotherapy w/patient 60 minutes Generalized anxiety disorder Angela SOTOW Work Phone: Comment on above: Generalized anxiety disorder (Primary Dx); Obsessive-compulsive disorder, unspecified type Start: 06-02-2023 End: 06-02-2023 Psychotherapy w/patient 30 minutes Bipolar disorder, current episode mixed, severe, without psychotic features (HCC-CMS) Angela SOTOW Work Phone: Comment on above: Bipolar disorder, cu rrent episode mixed, severe, without psychotic features (HCC-CMS) (Primary Dx) Start: 05-29-2023 End: 05-29-2023 Psychotherapy w/patient 30 minutes Bipolar II disorder (HCC-CMS) Angela SOTOW Work Phone: Comment on above: Bipolar II disorder (HCC-CMS) (Primary Dx) Start: 05-15-2023 End: 05-15-2023 Psychotherapy w/patient 60 minutes Generalized anxiety disorder Angela SOTOW Work Phone: Comment on above: Generalized anxiety disorder (Primary Dx); Post traumatic stress disorder Start: 04-23-2023 End: 04-23-2023 Psychotherapy w/patient 60 minutes Generalized anxiety disorder Angela Dinh [facility] Work Phone: Comment on above: Generalized anxiety disorder (Primary Dx); Post traumatic stress disorder Start: 09-09-2022 Urnls dip stick/tabl et rgnt auto w/o microscopy [facility] Start: 09-05-2022 Insertion intrauteri ne device iud Shalonda Krause APRN.CNM Work Phone: Start: 07-10-2022 URINE OB DIP B/O Shalonda P earce [employer] POLISHER.CNM Work Phone: Start: 06-24-2022 Us preg uterus after 1st trimest 11/23 gestation Chitra Nava MD Work Phone: Start: 06-03-2022 URINE OB DIP B/O Shalonda P earce STONE POLISHER.CNM Work Phone: Start: 06-03-2022 Hemoglobin A1c/Hemoglobin.total in Blood Vincent Roland Ocampo DO Work Phone: Start: 04-17-2022 URINE OB DIP B/O Shalonda P earce [employer]ONE POLISHER.CNM Work Phone: Start: 03-11-2022 Us preg uterus after 1st trimest 11/23 gestation Ana Beard MD Work Phone: Start: 03-06-2022 URINE OB DIP B/O Shalonda P earce STONE POLISHER.CNM Work Phone: Start: 12-03-2020 Adult depression screening assessment Shalonda Krause APRN.CNM Work Phone: Plan of Treatment Date Care Activity Detail Author Start: 06-03-2032 Tetanus vaccination Imm-DTaP/Tdap/Td (9 - Td or Tdap) [facility] Start: 06-03-2032 Urine microalbumin profile [facility] Start: 02-18-2031 Urine microalbumin profile DTAP,TDAP,TD (8 - Td or Tdap) [facility] Start: 08-14-2026 Tobacco Screening Tobacco Screening [...] Health Start: 09-17-2025 PAP TESTING PAP TESTING [facility] Start: 09-17-2025 Screening for malignant neoplasm of cervix Pap Testing [facility] Start: 07-24-2025 Khd-[id number]-88 ( season) Hdo-PXEFY-30 () [facility] Start: 07-24-2025 Aov-QSVIB-06 () Zwk-VNXZS-63 ( season) [facility] Start: 07-24-2025 Influenza vaccination [facility] Start: 07-17-2025 End: 07-17-2025 Patient encounter procedure 07/17/2025 2:15 PM EDT Office Visit Gastro[facility] [place] [address] [place] [address] Bekah Ashley PA-C [address] [place] [address] elevated liver enzymes Gastro[facility] [place] Comment on above: elevated liver enzymes Start: 06-21-2025 End: 06-21-2025 Patient encounter procedure 06/21/2025 11:00 AM EDT Office Visit Neurology [address] [facility] [address] [place] [address] Jaja Moss APRN.PATIENT SERVICES REPRESENTATIVE [address] [place] [address] [facility] Neurology Comment on above: Botox Start: 06-13-2025 Diabetes mellitus screening Diabetes Screening [facility] Start: 06-13-2025 Hypertension screening Hypertension Screening (#1) [facility] Start: 06-13-2025 Lipid panel Lipid Screening [facility] Start: 06-13-2025 Tobacco Screening Tobacco Screening [facility] Start: 05-30-2025 End: 05-30-2025 Patient encounter procedure 05/30/2025 2:20 PM EDT Office Visit [facility] [place] [address] [place] [address] [place] [address] [place] [address] Hospital Discharge follow UP [facility] [place] Comment on above: Hospital Discharge follow UP Start: 05-01-2025 End: 10-21-2025 Hemoglobin glycosylated a1c HEMOGLOBIN GLYCOSYLATED A1C Routine Lab Routine Screening for endocrine, metabolic and immunity disorder Long-term use of high-risk medication Expected: 05/01/2025, Expires: 10/21/2025 [facility] Work Phone: Comment on above: Expected: 05/01/2025, Expires: Start: 05-01-2025 End: 10-24-2025 Lipid panel LIPID PANEL WITH REFLEX Routine Lab Routine Screening for endocrine, metabolic and immunity disorder Long-term use of high-risk medication Expected: 05/01/2025, Expires: 10/24/2025 [facility] Work Phone: Comment on above: Expected: 05/01/2025, Expires: Start: 04-26-2025 End: 04-26-2025 Patient encounter procedure 04/26/2025 1:45 PM EDT Office Visit OB/Gynecology [address] [place] [address] Ese Toledo APRN.PATIENT SERVICES REPRESENTATIVE [address] [place] [address] Possibly uti OB/Gynecology Comment on above: Possibly uti Start: 04-22-2025 Tobacco Screening Tobacco Screening [facility] Start: 04-07-2025 Tobacco Screening Tobacco Screening [facility] Start: 03-29-2025 End: 03-29-2025 Patient encounter procedure 03/29/2025 2:30 PM EDT Office Visit Neurology [address] [address] [place] [address] Jaja Moss APRN.PATIENT SERVICES REPRESENTATIVE [address] [place] [address] Botox Neurology Comment on above: Botox Start: 03-23-2025 End: 03-23-2025 Patient encounter procedure 03/23/2025 8:00 AM EDT Office Visit [facility] [address] [place] [address] Júnior Price MD [address] [place] [address] Hospital Follow up [facility] Comment on above: Hospital Follow up Start: 03-21-2025 Tobacco Screening Tobacco Screening [facility] Start: 03-17-2025 End: 03-17-2025 Patient encounter procedure Neurology Comment on above: [address] [facility] follow up Start: 03-13-2025 End: 03-13-2025 Patient encounter procedure 03/13/2025 10:00 AM EDT Office Visit Allergy [address] [place] [address] Sissy Felton APRN.MICROBIOLOGY TECHNICIAN [address] [place] [address] ?NONE/hospital follow up, antibiotic allergy Allergy Comment on above: ?NONE/hospital follow up, antibiotic all ergy Start: 03-11-2025 Tobacco Screening Tobacco Screening [facility] Start: 03-10-2025 [facility] Start: 02-21-2025 Tobacco Screening Tobacco Screening [facility] Start: 02-03-2025 End: 02-03-2025 Patient encounter procedure 02/03/2025 10:00 AM EDT Office Visit Allergy [address] [address] David Gustafson, DO [address] [place] [address] NEW Allergy appt w/[facility] for 1mo or earlier Allergy Comment on above: NEW Allergy appt w/[facility] for 1mo or ea rlier Start: 02-01-2025 End: 05-03-2025 [facility] INVITAE HEREDITARY DIAGNOSTIC CANCER PANEL [facility] INVITAE HEREDITARY DIAGNOSTIC CANCER PANEL Lab Routine Nipple discharge Family history of breast cancer Family history of ovarian cancer Expected: 02/01/2025, Expires: 05/03/2025 [facility] Work Phone: Comment on above: Expected: 02/01/2025, Expires: Start: 02-01-2025 End: 02-01-2025 Patient encounter procedure Mammography Comment on above: breast abscess, lesion imaging 1st// breast abscess, lesion Start: 01-28-2025 Tobacco Screening Tobacco Screening [facility] Start: 01-18-2025 End: 01-18-2025 Patient encounter procedure 01/18/2025 2:20 PM EST Office Visit [facility] [address] [place] [address] [place] [address] [facility] [place] [address] Needs hospital follow up at [facility], or [place] for left breast cellulitis. [facility] Comment on above: Needs hospital follow up at [facility], [facility], or [place] for left breast cellulitis. Start: 01-12-2025 End: 01-12-2025 ambulatory 01/12/2025 3:00 PM EST [facility] Infectious Disease [address] [place] [address] Nargis Nelson MD [address] [place] [address] vv hospital f/u Cellulitis of left breast Infectious Disease Comment on above: hospital f/u Cellulitis of left breas t Start: 01-08-2025 Tobacco Screening Tobacco Screening [facility] Start: 01-01-2025 Tobacco Screening Tobacco Screening [facility] Start: 12-20-2024 End: 12-20-2024 Patient encounter procedure 12/20/2024 9:30 AM EST Office Visit Neurology [address] [place] [address] Jaja Moss APRN.PATIENT SERVICES REPRESENTATIVE [address] [place] [address] Botox Neurology Comment on above: Botox Start: 12-11-2024 Tobacco Screening Tobacco Screening [facility] Start: 11-23-2024 Depression screening Depression Annual Screen [facility] Start: 11-23-2024 Screening for substance abuse Alcohol and Drug Screen [facility] Start: 11-17-2024 End: 11-17-2024 ambulatory 11/17/2024 8:20 AM EST [facility] [address] [place] [address] [place] [address] [place] [address] Bronchitis, ear pain Family Medicine Comment on above: Bronchitis, ear pain Start: 10-09-2024 Tobacco Screening Tobacco Screening [facility] Start: 09-27-2024 End: 09-27-2024 Patient encounter procedure 09/27/2024 10:00 AM EST Office Visit Neurology [address] [place] [address] Jaja Moss, STONE POLISHER.PATIENT SERVICES REPRESENTATIVE [address] [place] [address] Botox Neurology Comment on above: Botox Start: 09-20-2024 End: 10-20-2025 XR Hand - left PA and Lateral and Oblique XR HAND GENERAL 3V PA/LAT/OBL LEFT Radiology STAT Hand injury, left, initial encounter Expected: 09/20/2024, Expires: 10/20/2025 [facility] Work Phone: Comment on above: Expected: 09/20/2024, Expires: Start: 09-04-2024 Tobacco Screening Tobacco Screening [facility] Start: 08-22-2024 End: 08-22-2024 Patient encounter procedure 08/22/2024 11:30 AM EDT Office Visit [facility] [address] [address] Karla Espinoza, STONE POLISHER.PATIENT SERVICES REPRESENTATIVE [address] [place] [address] Vaginl itcing burning and pain [facility] Comment on above: Vaginl itcing burning and pain Start: 07-24-2024 Covid-19 Vaccine () Covid-19 Vaccine () [facility] Start: 07-24-2024 Covid-19 Vaccine () Covid-19 Vaccine () [facility] Start: 07-24-2024 [id number]-32 () [id number]-97 () [facility] Start: 07-24-2024 [id number]-47 ( season) [id number]-[id number]-71 () [facility] Start: 07-24-2024 Influenza vaccination [facility] Start: 07-06-2024 Tobacco Screening Tobacco Screening [facility] Start: 07-04-2024 End: 07-04-2024 Patient encounter procedure 07/04/2024 10:00 AM EDT Office Visit Neurology [address] [place] [id number] Jaja Moss, ERIC.PATIENT SERVICES REPRESENTATIVE [address] [place] [address] Botox Neurology Comment on above: Botox Start: 04-04-2024 End: 04-04-2024 Patient encounter procedure Neurology Comment on above: Botox 200u (06/10/2024) 03/21 SC 10 days follow-up/ L eft Tibia Fibula Pain left ankle and foot, AP/LAT, weight bearing w/ gravity stress view of ankle. Start: 01-28-2024 COVID-19 VACCINE (#1) COVID-19 VACCINE (#1) [facility] Comment on above: Postponed from 1991 (Declined at t his time) Start: 12-20-2023 Diabetes mellitus screening Diabetes Screening [facility] Start: 11-23-2023 Behavioral Health Screening Behavioral Health Screening [facility] Start: 11-23-2023 Depression Assessment Depression Assessment [facility] Start: 11-23-2023 Depression screening Depression Annual Screen [facility] Start: 11-23-2023 Screening for substance abuse Alcohol and Drug Screen [facility] Start: 09-23-2023 Diabetes mellitus screening Diabetes Screening [facility] Start: 09-17-2023 Screening for malignant neoplasm of cervix Cervical Cancer Screening [facility] Start: 07-24-2023 Covid-19 Vaccine ( season) Covid-19 Vaccine () [facility] Start: 07-24-2023 [id number]-14 () [id number]-[id number]-81 () [facility] Start: 07-24-2023 Influenza vaccination [facility] Start: 06-03-2023 Diabetes mellitus screening Diabetes Screening [facility] Start: 05-06-2023 Serologic test for syphilis Syphilis Screening [facility] Start: 11-23-2022 DEPRESSION ASSESSMENT DEPRESSION ASSESSMENT [facility] Start: 11-23-2022 Depression screening Depression Annual Screen [facility] Start: 11-23-2022 Screening for substance abuse Alcohol and Drug Screen [facility] Start: 10-01-2022 End: 12-01-2022 GLUC HALLE, 2-HR NON-GEST, 75 GM, FASTING GLUC HALLE, 2-HR NON-GEST, 75 GM, FASTING Lab Routine Diet controlled gestational diabetes mellitus (GDM) in third trimester Expected: 10/01/2022 (Approximate), Expires: 12/01/2022 [facility] Work Phone: Comment on above: Expected: 10/01/2022 (Approximate), Expi res: 12/01/2022 Start: 09-05-2022 End: 11-05-2022 GLUC HALLE, 2-HR NON-GEST, 75 GM, FASTING GLUC HALLE, 2-HR NON-GEST, 75 GM, FASTING Lab Routine History of gestational diabetes Expected: 09/05/2022, Expires: 11/05/2022 [facility] Work Phone: Comment on above: Expected: 09/05/2022, Expires: 2 Start: 07-24-2022 Influenza vaccination [facility] Start: 07-21-2022 End: 09-20-2022 CBC panel - Blood by Automated count CBC Lab Routine 37 weeks gestation of Expected: 07/21/2022, Expires: 09/20/2022 [facility] Work Phone: Comment on above: Expected: 07/21/2022, Expires: 2 Start: 07-21-2022 End: 09-20-2022 TYPE + SCREEN TYPE + SCREEN Blood Bank Routine 37 weeks gestation of Expected: 07/21/2022, Expires: 09/20/2022 [facility] Work Phone: Comment on above: Expected: 07/21/2022, Expires: 2 Start: 04-17-2022 End: 06-17-2022 CBC panel - Blood by Automated count CBC Lab Routine 25 weeks gestation of Expected: 04/17/2022, Expires: 06/17/2022 [facility] Work Phone: Comment on above: Expected: 04/17/2022, Expires: 2 Start: 04-17-2022 End: 06-17-2022 GEST GLUC SCREEN, 1-HR, 50 GM, NON-FASTING GEST GLUC SCREEN, 1-HR, 50 GM, NON-FASTING Lab Routine 25 weeks gestation of Expected: 04/17/2022, Expires: 06/17/2022 [facility] Work Phone: Comment on above: Expected: 04/17/2022, Expires: 2 Start: 04-17-2022 End: 06-17-2022 SYPHILIS TOTAL W/REFLEX SYPHILIS TOTAL W/REFLEX Lab Routine 25 weeks gestation of Expected: 04/17/2022, Expires: 06/17/2022 [facility] Work Phone: Comment on above: Expected: 04/17/2022, Expires: 2 Start: 12-03-2021 Adult depression screening assessment DEPRESSION SCREENING [facility] Start: 11-23-2021 DEPRESSION ASSESSMENT DEPRESSION ASSESSMENT [facility] Start: 2021 HPV TESTING HPV TESTING [facility] Start: 2021 Screening for malignant neoplasm of cervix HPV Testing [facility] Start: 2012 Screening for malignant neoplasm of cervix [facility] Start: 2009 Annual Preventive Care Visit Annual Preventive Care Visit [facility] Start: 2009 Depression Screening Depression Screening [facility] Start: 2009 Hypertension screening Hypertension Screening (#1) [facility] Start: 03-25-2008 HPV VACCINE (3 - 3-dose series) HPV VACCINE (3 - 3-dose series) [facility] Start: 02-17-2008 HPV Vaccine (3 - 3-dose series) HPV Vaccine (3 - 3-dose series) [facility] Start: 02-17-2008 Vaccination for human papillomavirus Imm-HPV (3 - 3-dose series) [facility] Start: 09-15-2007 HEPATITIS B (3 of 3 - 3-dose series) HEPATITIS B (3 of 3 - 3-dose series) [facility] Start: 09-15-2007 Hepatitis B vaccination Imm-Hepatitis B (3 of 3 - 3-dose series) [facility] Start: 2006 Relationship Safety Screening Relationship Safety Screening [facility] Start: 2006 Relationship Safety Screening/Counseling Relationship Safety Screening/Counseling [facility] Start: 01-08-2005 Serologic test for syphilis Syphilis Screening [facility] Start: 2005 Serologic test for syphilis Syphilis Screening [facility] Start: 2003 Depression screening Depression Annual Screen (#1) [facility] Start: 1996 COVID-19 VACCINE (#1) COVID-19 VACCINE (#1) [facility] Start: 1996 COVID-19 VACCINE (1) COVID-19 VACCINE (1) [facility] Start: 1991 COVID-19 VACCINE (#1) COVID-19 VACCINE (#1) [facility] Start: 1991 [id number] (#1) [id number]-76 (#1) [facility] Start: 1991 Advanced Care Planning Advanced Care Planning [facility] Start: 1991 Anxiety Screening Anxiety Screening [facility] Start: 1991 Hepatitis C screening Hepatitis C Screening [facility] Start: 1991 Lipid panel Lipid Screening [facility] Start: 1991 Screening for malignant neoplasm of cervix [facility] Start: 1991 Tobacco Screening Tobacco Screening [facility] Bacteria identified in Urine by Culture URINE CULTURE Microbiology Routine UTI symptoms Ordered: 09/09/2022 [facility] Work Phone: Comment on above: Ordered: 09/09/2022 Bacteria identified in Urine by Culture URINE CULTURE Microbiology Routine Dysuria 07/14/2023 10:31 AM EDT [facility] Work Phone: Bacteria identified in Urine by Culture BACTERIAL CULTURE, URINE Microbiology Routine Dysuria 04/19/2025 12:21 PM EDT [facility] BACTERIAL VAGINOSIS NAAT BACTERIAL VAGINOSIS NAAT Lab Routine Vaginal irritation Ordered: 09/07/2024 [facility] Comment on above: Ordered: 09/07/2024 BACTERIAL VAGINOSIS NAAT BACTERIAL VAGINOSIS NAAT Lab Routine Vaginal discharge Ordered: 10/24/2024 [facility] Comment on above: Ordered: 10/24/2024 BACTERIAL VAGINOSIS NAAT BACTERIAL VAGINOSIS NAAT Lab Routine Acute vaginitis 04/19/2025 12:21 PM EDT [facility] Work Phone: ALESSANDRA/TRICHOMONAS NAAT ALESSANDRA/TRICHOMONAS NAAT Lab Routine Vaginal irritation Ordered: 09/07/2024 [facility] Work Phone: Comment on above: Ordered: 09/07/2024 ALESSANDRA/TRICHOMONAS NAAT ALESSANDRA/TRICHOMONAS NAAT Lab Routine Vaginal discharge Ordered: 10/24/2024 [facility] Work Phone: Comment on above: Ordered: 10/24/2024 ALESSANDRA/TRICHOMONAS NAAT ALESSANDRA/TRICHOMONAS NAAT Lab Routine Acute vaginitis 04/19/2025 12:21 PM EDT [facility] Chlamydia trachomatis+Neisseria gonorrhoeae DNA [Presence] in Unspecified specimen by LAURA with probe detection GONORRHEA/CHLAMYDIA NAAT Lab Routine Vaginal discharge Ordered: 10/24/2024 [facility] Comment on above: Ordered: 10/24/2024 End: 11-10-2025 Comprehensive metabolic panel COMPREHENSIVE METABOLIC PANEL Routine Lab Routine Long-term use of high-risk medication 1 Occurrences starting 05/11/2025 until 11/10/2025 [employer] Phone: Comment on above: 1 Occurrences starting 05/11/2025 until 11/10/2025 End: 11-10-2025 Drug assay valproic dipropylacetic acid total DRUG ASSAY VALPROIC DIPROPYLACETIC ACID TOTAL Routine Lab Routine Long-term use of high-risk medication 1 Occurrences starting 05/11/2025 until 11/10/2025 [employer] Phone: Comment on above: 1 Occurrences starting 05/11/2025 until 11/10/2025 End: 03-02-2026 MG Breast - bilateral Diagnostic JUDITH DIAGNOSTIC BILATERAL Radiology Routine Breast lesion 1 Occurrences starting 01/31/2025 until 03/02/2026 [facility] Work Phone: Comment on above: 1 Occurrences starting 01/31/2025 until 03/02/2026 NEURO CARDIO AUTONOM IC REFLEX W/WO TILT NEURO CARDIO AUTONOMIC REFLEX W/WO TILT Procedures Routine Lightheadedness Ordered: 10/28/2022 [facility] Work Phone: Comment on above: Ordered: 10/28/2022 OBSTETRIC ULTRASOUND WHI OBSTETRIC ULTRASOUND WHI Anc Imaging Routine Encounter for long-term (current) use of medications Ordered: 05/06/2022 [facility] Work Phone: Comment on above: Ordered: 05/06/2022 Patient Education Dental Abscess [facility] Work Phone: Patient referral [facility] Work Phone: ROUTINE, GROUP B STREP PCR ROUTINE, GROUP B STREP PCR Microbiology Routine care in third trimester 06/25/2022 1:46 PM EDT [facility] Work Phone: ROUTINE, GROUP B STREP PCR ROUTINE, GROUP B STREP PCR Microbiology Routine 37 weeks gestation of Ordered: 07/10/2022 [facility] Work Phone: Comment on above: Ordered: 07/10/2022 SARS-CoV-2 (COVID-19 ) RNA [Presence] in Respiratory specimen by LAURA with probe detection SELF CHECK COVID Microbiology Routine 37 weeks gestation of Ordered: 07/10/2022 [facility] Work Phone: Comment on above: Ordered: 07/10/2022 End: 10-24-2025 URINE DRUG PANEL Urine Routine URINE DRUG PANEL Urine Routine Lab Routine Encounter for observation for other suspected diseases and conditions ruled out 1 Occurrences starting 04/24/2025 until 10/24/2025 [facility] Work Phone: Comment on above: 1 Occurrences starting 04/24/2025 until 10/24/2025 URINE OB DIP B/O URINE OB DIP B/ O Lab Routine care, subsequent , third trimester Ordered: 05/06/2022 [facility] Work Phone: Comment on above: Ordered: 05/06/2022 End: 03-02-2026 US Breast - left limited US BREAST LTD LEFT Radiology Routine Breast lesion 1 Occurrences starting 01/31/2025 until 03/02/2026 [facility] Work Phone: Comment on above: 1 Occurrences starting 01/31/2025 until 03/02/2026 End: 05-01-2025 XR Ankle - left AP and Lateral and oblique XR ANKLE GENERAL 3V AP/LAT/OBL LEFT Radiology Routine Sprain of left ankle, unspecified ligament, initial encounter 1 Occurrences starting 04/03/2024 until 05/01/2025 [facility] Work Phone: Comment on above: 1 Occurrences starting 04/03/2024 until 05/01/2025 End: 05-01-2025 XR Foot - left AP and Lateral and oblique XR FOOT GENERAL 3V AP/LAT/OBL LEFT Radiology Routine Pain in left foot 1 Occurrences starting 04/03/2024 until 05/01/2025 [facility] Comment on above: 1 Occurrences starting 04/03/2024 until 05/01/2025 End: 01-30-2025 XR Hand - left PA and Lateral and Oblique XR HAND GENERAL 3V PA/LAT/OBL LEFT Radiology Routine Pain 1 Occurrences starting 01/01/2024 until 01/30/2025 [facility] Work Phone: Comment on above: 1 Occurrences starting 01/01/2024 until 01/30/2025 End: 02-26-2025 XR Hand - left PA and Lateral and Oblique XR HAND GENERAL 3V PA/LAT/OBL LEFT Radiology Routine Closed nondisplaced fracture of shaft of fifth metacarpal bone of left hand with routine healing, subsequent encounter 1 Occurrences starting 01/28/2024 until 02/26/2025 [facility] Work Phone: Comment on above: 1 Occurrences starting 01/28/2024 until 02/26/2025 [facility] [...] Immunizations Immunization Date Immunization Notes Care Provider [facility] 01-27-2023 hepatitis B vaccine, adult dosage Maile Beaver MD Work Phone: [facility] 07-24-2022 measles, mumps and rubella virus vaccine Jaja Moss APRN.PATIENT SERVICES REPRESENTATIVE Work Phone: [facility] 06-03-2022 tetanus toxoid, reduced diphtheria toxoid, and acellular pertussis vaccine, adsorbed Shalonda Krause STONE POLISHER.CNM Work Phone: [facility] 02-18-2021 tetanus toxoid, reduced diphtheria toxoid, and acellular pertussis vaccine, adsorbed Shalonda Krause STONE POLISHER.CNM Work Phone: [facility] 03-07-2018 tetanus toxoid, reduced diphtheria toxoid, and acellular pertussis vaccine, adsorbed Shalonda Krause STONE POLISHER.CNM Work Phone: [facility] Work Phone: 11-25-2007 human papilloma viru s vaccine, quadrivalent Shalonda Krause STONE POLISHER.CNM Work Phone: [facility] Work Phone: 07-21-2007 hepatitis B vaccine, pediatric or pediatric/adolescent dosage Shalonda Krause STONE POLISHER.CNM Work Phone: [facility] Work Phone: 07-21-2007 human papilloma viru s vaccine, quadrivalent Shalonda Krause STONE POLISHER.CNM Work Phone: [facility] Work Phone: 07-21-2007 Meningococcal, MCV4, unspecified conjugate formulation(groups A, C, Y and W-135) Shalonda Krause STONE POLISHER.CNM Work Phone: [facility] Work Phone: 07-21-2007 tetanus toxoid, reduced diphtheria toxoid, and acellular pertussis vaccine, adsorbed Shalonda Krause STONE POLISHER.CNM Work Phone: [facility] Work Phone: 07-21-2007 hepatitis B vaccine, unspecified formulation Vincent Ocampo DO Work Phone: [facility] 10-30-2006 hepatitis B vaccine, pediatric or pediatric/adolescent dosage Shalonda Krause APRN.CNM Work Phone: [facility] 08-09-1992 diphtheria, tetanus toxoids and pertussis vaccine Shalonda Jimi STONE POLISHER.CNM Work Phone: [facility] Work Phone: 08-09-1992 trivalent poliovirus vaccine, live, oral Shalonda Jimi STONE POLISHER.CNM Work Phone: [facility] Work Phone: 06-07-1992 haemophilus influenz ae type b vaccine, HbOC conjugate Shalonda Jimi STONE POLISHER.CNM Work Phone: [facility] Work Phone: 06-07-1992 measles, mumps and rubella virus vaccine Shalonda Jimi STONE POLISHER.CNM Work Phone: [facility] Work Phone: 02-14-1992 diphtheria, tetanus toxoids and pertussis vaccine Shalonda Krause STONE POLISHER.CNM Work Phone: [facility] Work Phone: 02-14-1992 haemophilus influenz ae type b vaccine, HbOC conjugate Shalonda Krause STONE POLISHER.CNM Work Phone: [facility] Work Phone: 1991 diphtheria, tetanus toxoids and pertussis vaccine Shalonda Krause STONE POLISHER.CNM Work Phone: [facility] Work Phone: 1991 haemophilus influenz ae type b vaccine, HbOC conjugate Shalonda Krause STONE POLISHER.CNM Work Phone: [facility] Work Phone: 1991 trivalent poliovirus vaccine, live, oral Shalonda Jimi ARREOLAN.CNM Work Phone: [facility] Work Phone: 1991 diphtheria, tetanus toxoids and pertussis vaccine Shalonda Jimi REYES.CNM Work Phone: [facility] Work Phone: 1991 haemophilus influenz ae type b vaccine, HbOC conjugate Shalonda Jimi REYES.CNM Work Phone: [facility] Work Phone: 1991 trivalent poliovirus vaccine, live, oral Shalonda Krause APRN.CNM Work Phone: [facility] Work Phone: NEGATED: Highlighted row has not occurred!04-19-2021 measles, mumps and rubella virus vaccine Shalonda Jimi REYES.CNM Work Phone: [facility] Comment on above: Deferred: Patient Re fused - VIS given, patient declined vaccine. Payers Date Payer Category Payer Self-pay [id number] 2021 Medicaid [employer] [employer] [employer] [id number] 2021-Present [phone] [place] [id number] Medicaid [id number] 2021 Medicaid [id number] 2021 Unknown [id number] 1991 Unknown [id number] Unknown Unknown [id number] Unknown [id number] Unknown [id number] Unknown [id number] Social History Date Type Detail Facility [facility] Start: 12-06-2022 Tobacco smokin g consumption unknown [facility] Start: 11-08-2013 End: 03-27-2023 Tobacco smoking status NHIS Never smoked tobacco [facility] Start: 02-04-2022 End: 10-24-2024 Alcohol intake Current non-drinker of alcohol (finding) [facility] Start: 07-05-2008 End: 07-16-2022 Tobacco Comment Pt denies [facility] Start: 11-04-2021 [facility] Start: 1991 Sex Assigned At Female [facility] Start: 02-01-2022 End: 07-15-2023 Exposure to SARS-CoV-2 (event) Not sure [facility] Start: 11-08-2013 End: 03-27-2023 Tobacco use and exposure Smokeless tobacco non-user [facility] Work Phone: Start: 01-01-2023 End: 10-02-2025 Alcohol intake Ex-drinker (finding) [facility] Work Phone: Start: 04-26-2021 Alcohol Comment has not drank since she was 18 [facility] Work Phone: Start: 04-25-2021 End: 08-05-2024 History of Social function [facility] Start: 04-25-2021 End: 08-05-2024 Social Connections [facility] Start: 10-24-2012 Social Connections a nd Isolation 0 [facility] Start: 09-28-2019 Gender identity Identifies as female gender (finding) [facility] Work Phone: Start: 09-28-2019 Sexual orientation Heterosexual (keren chiang) [facility] Work Phone: The thought of junomanisha ang myself has occurred to me Never [facility] Do you belong to any clubs or organizations such as faith groups, unions, fraternal or athletic groups, or school groups? Yes [facility] Are you now , , , , never or living with a partner? [facility] Do you feel stress - tense, restless, nervous, or anxious, or unable to sleep at night because your mind is troubled all the time - these days [OSQ] Only a little [facility] (I/We) worried shawanda er (my/our) food would run out before (I/we) got money to buy more. Never true [facility] In the past 12 month s, was there a time when you were not able to pay the mortgage or rent on time? No [facility] Start: 11-09-2024 End: 08-14-2025 Alcoholic beverage intake Current drinker of alcohol (finding) [facility] Start: 11-09-2024 Alcohol Comment rare [facility] Start: 12-30-2024 Alcohol Comment Started drinki ng again daily in August [employer] Phone: Start: 01-30-2025 Alcohol Comment hasn't had any thing to drink in a couple months. [employer] Phone: Start: 04-25-2021 End: 03-10-2025 Sex Female (finding) [facility] Start: 03-20-2025 Alcohol Comment 2 months ago [employer] Phone: Start: 08-14-2025 Alcohol Comment drinking every day for a month, last drank yesterday [employer] Phone: NEGATED: Highlighted rowStart: NINF History of tobacco use Passive smoker [facility] Medical Equipment Procedure Code Equipment Code [...] the original. By Care Plan review date, Matthew will be able to identify at least [...] difficulty hearing No 05/22/2025 3:12 PM Tessa Flores RN No [facility] 05-22-2025 Are you blind, or do you have serious difficulty seeing, even when wearing glasses No 05/22/2025 3:12 PM Tessa Flores RN No [facility] 05-22-2025 Do you have serious difficulty walking or climbing stairs No 05/22/2025 3:12 PM Tessa Flores RN No [facility] 05-22-2025 Do you have difficul ty dressing or bathing No 05/22/2025 3:12 PM Tessa Flores RN [facility] 05-22-2025 Because of a physica l, mental, or emotional condition, do you have difficulty doing errands alone such as visiting a physician's office or shopping No 05/22/2025 3:12 PM Tessa Flores RN No [facility] 03-08-2025 Are you deaf, or do you have serious difficulty hearing No 03/08/2025 2:25 PM MARCIET Elida Villegas RN No [facility] 03-08-2025 Are you blind, or do you have serious difficulty seeing, even when wearing glasses No 03/08/2025 2:25 PM Elida Robles RN No [facility] 03-08-2025 Do you have serious difficulty walking or climbing stairs No 03/08/2025 2:25 PM Elida Robles RN No [facility] 03-08-2025 Do you have difficul ty dressing or bathing No 03/08/2025 2:25 PM Elida Robles RN No [facility] 03-08-2025 Because of a physica l, mental, or emotional condition, do you have difficulty doing errands alone such as visiting a physician's office or shopping No 03/08/2025 2:25 PM Elida Robles RN No [facility] 03-06-2025 Are you deaf, or do you have serious difficulty hearing No 03/06/2025 4:48 PM Denise Valdez, MIRNA No [facility] 03-06-2025 Are you blind, or do you have serious difficulty seeing, even when wearing glasses No 03/06/2025 4:48 PM Denise Valdez, MIRNA No [facility] 03-06-2025 Do you have serious difficulty walking or climbing stairs No 03/06/2025 4:48 PM EDDenise Peace, MIRNA No [facility] 03-06-2025 Do you have difficul ty dressing or bathing No 03/06/2025 4:48 PM Denise Valdez, MIRNA No [facility] 03-06-2025 Because of a physica l, mental, or emotional condition, do you have difficulty doing errands alone such as visiting a physician's office or shopping No 03/06/2025 4:48 PM Denise Valdez, MIRNA No [facility] 01-13-2025 Are you deaf, or do you have serious difficulty hearing No 01/13/2025 11:38 AM Sneha Potts RN No [facility] 01-13-2025 Are you blind, or do you have serious difficulty seeing, even when wearing glasses No 01/13/2025 11:38 AM Sneha Potts RN No [facility] 01-13-2025 Do you have serious difficulty walking or climbing stairs No 01/13/2025 11:38 AM Sneha Potts RN No [facility] 01-13-2025 Do you have difficul ty dressing or bathing No 01/13/2025 11:38 AM Sneha Potts RN No [facility] 01-13-2025 Because of a physica l, mental, or emotional condition, do you have difficulty doing errands alone such as visiting a physician's office or shopping No 01/13/2025 11:38 AM Sneha Potts RN No [facility] 2025 Are you deaf, or do you have serious difficulty hearing No 2025 2:07 PM Babs Ross RN No [facility] 2025 Are you blind, or do you have serious difficulty seeing, even when wearing glasses No 2025 2:07 PM Babs Ross RN No [facility] 2025 Do you have serious difficulty walking or climbing stairs No 2025 2:07 PM Babs Ross RN No [facility] 2025 Do you have difficul ty dressing or bathing No 2025 2:07 PM Babs Ross RN No [facility] 2025 Because of a physica l, mental, or emotional condition, do you have difficulty doing errands alone such as visiting a physician's office or shopping No 2025 2:07 PM Babs Ross RN No [facility] 07-25-2022 Are you deaf, or do you have serious difficulty hearing No 07/25/2022 12:20 PM EDT Josselin Goldman RN No [facility] 07-25-2022 Are you blind, or do you have serious difficulty seeing, even when wearing glasses No 07/25/2022 12:20 PM EDT Josselin Goldman RN No [facility] 07-25-2022 Do you have serious difficulty walking or climbing stairs No 07/25/2022 12:20 PM EDT Josselin Goldman RN No [facility] 07-25-2022 Because of a physica l, mental, or emotional condition, do you have difficulty doing errands alone such as visiting a physician's office or shopping No 07/25/2022 12:20 PM EDT Josselin Goldman RN No [facility] 07-25-2022 Do you have difficul ty dressing or bathing No 07/25/2022 8:30 AM EDT Danielle Garcia, MIRNA No [facility] Mental Status Date Assessment Result Facility 05-22-2025 Because of a physica l, mental, or emotional condition, do you have serious difficulty concentrating, remembering, or making decisions No 05/22/2025 3:12 PM EDT Tessa Up, MIRNA No [facility] 03-08-2025 Because of a physica l, mental, or emotional condition, do you have serious difficulty concentrating, remembering, or making decisions No 03/08/2025 2:25 PM EDT Elida Villegas, MIRNA No [facility] 03-06-2025 Because of a physica l, mental, or emotional condition, do you have serious difficulty concentrating, remembering, or making decisions No 03/06/2025 4:48 PM EDT Denise Carreno, MIRNA No [facility] 01-13-2025 Because of a physica l, mental, or emotional condition, do you have serious difficulty concentrating, remembering, or making decisions No 01/13/2025 11:38 AM EST Sneha Roque RN No [facility] 2025 Because of a physica l, mental, or emotional condition, do you have serious difficulty concentrating, remembering, or making decisions No 2025 2:07 PM Babs Ross RN No [facility] 07-25-2022 Because of a physica l, mental, or emotional condition, do you have serious difficulty concentrating, remembering, or making decisions No 07/25/2022 12:20 PM EDT Josselin Goldman RN No [facility] Clinical Notes 04-17-2021 to 10-02-2025 Herberth Montana DO - 10/02/2025 4:00 PM Darin Montana, - 10/02/2025 4:00 PM Darin Montana, DO - 10/02/2025 4:[facility] - 10/02/2025 3:39 PM Darin Montana, DO - 08/20/2025 1:51 PM EDT Note Date & Type Note Facility 10-02-2025 History of Present illness Narrative Associated Problem(s): Bipolar disorder, in partial remission, most recent episode hypomanic Stable;continue current med regimen Orders: RN NURSING PER 15 MIN [[id number]] divalproex (DEPAKOTE ER) 500 mg 24 hr tablet; Take 3 Tablets by mouth every evening. risperiDONE (RISPERDAL) 0.5 mg tablet; Take 1 Tablet by mouth once daily as needed for other reason (agitation). Associated Problem(s): Obsessive-compulsive disorder, unspecified Stable; pt reports obsessive/intrusive thoughts are significantly improved; continue current medication regimen Orders: escitalopram (LEXAPRO) 20 mg tablet; Take 1 Tablet by mouth once daily. risperiDONE (RISPERDAL) 3 mg tablet; Take 1 Tablet by mouth nightly at bedtime. Associated Problem(s): Generalized anxiety disorder with panic attacks Stable; continue current medications. Orders: escitalopram (LEXAPRO) 20 mg tablet; Take 1 Tablet by mouth once daily. hydrOXYzine HCL (ATARAX) 25 mg tablet; Take 1 Tablet by mouth 3 (three) times daily as needed for anxiety. Subjective Video conference visit ([employer]). Patient identity confirmed via name and date of . Potential risks and benefits discussed with patient/guardian, who verbalized consent for telehealth encounter. Patient location: home. Chief Complaint: Psychiatric Med Management HPI Matthew Huang is a 35 year old female with h/o bipolar disorder and NIKKIE, presenting for f/u visit. 10/02/25: Pt reports she is doing well for the most part with respect to mood and anxiety symptoms. She reports she still has intermittent panic attacks but has resigned herself that none of the medications have really helped (particularly the benzos/prn meds) so she has been coping through them. They do not interfere with her ability to function day to day. Does admit to having trouble sleeping lately. Difficulty falling asleep and staying asleep. Stopped drinking alcohol a few weeks ago. Denies cravings to drink. Obsessive/intrusive thoughts have resolved. No manic or hypomanic symptoms endorsed. No mixed mood symptoms endorsed. No issues with concentration, appetite or energy level endorsed. Denies psychotic symptoms. Denies SI/HI. Med adherent and denies side-effects. Denies SI/HI. Interim substance use history: Social [...] Sexual Activity Alcohol Use Not Currently Comment: drinking every day for a month, last drank yesterday 01/30/25: Copied forward from [facility] (Dec admission): ALLERGIES Allergen Reactions Clindamycin [...] Prior to Visit Medication Sig Dispense Refill amoxicillin-pot clavulanate (AUGMENTIN) 875-125 mg per tablet Take 1 Tablet by mouth 2 (two) times daily. divalproex (DEPAKOTE ER) 500 mg 24 hr tablet Take 3 Tablets by mouth every evening. 90 Tablet 1 escitalopram (LEXAPRO) 20 mg tablet Take 1 Tablet by mouth once daily. 30 Tablet 1 risperiDONE (RISPERDAL) 3 mg tablet Take 1 Tablet by mouth nightly at bedtime. 30 Tablet 1 rizatriptan (MAXALT) 10 mg tablet Take 10 mg by mouth. hydrOXYzine HCL (ATARAX) 25 mg tablet Take 1 Tablet by mouth 3 (three) times daily as needed for anxiety. 90 Tablet 0 risperiDONE (RISPERDAL) 0.5 mg tablet Take 1 Tablet by mouth once daily as needed for other reason (agitation). 30 Tablet 0 ondansetron ODT (ZOFRAN-ODT) 4 [...] % Change in weight 20.9 Height 5' 4 (162.6 cm) Estimated body mass index is 32.79 kg/m as calculated from the following: Height as of 04/24/25: 5' 4 (1.626 m). Weight as of 04/24/25: 191 [...] access to weapons. Assessment & Plan Bipolar affective disorder in remission Stable;continue current med regimen Orders: RN NURSING PER 15 MIN [[id number]] divalproex (DEPAKOTE ER) 500 mg 24 hr tablet; Take 3 Tablets by mouth every evening. risperiDONE (RISPERDAL) 0.5 mg tablet; Take 1 Tablet by mouth once daily as needed for other reason (agitation). Obsessive-compulsive disorder, unspecified type Stable; pt reports obsessive/intrusive thoughts are significantly improved; continue current medication regimen Orders: escitalopram (LEXAPRO) 20 mg tablet; Take 1 Tablet by mouth once daily. risperiDONE (RISPERDAL) 3 mg tablet; Take 1 Tablet by mouth nightly at bedtime. Generalized anxiety disorder with panic attacks Stable; continue current medications. Orders: escitalopram (LEXAPRO) 20 mg tablet; Take 1 Tablet by mouth once daily. hydrOXYzine HCL (ATARAX) 25 mg tablet; Take 1 Tablet by mouth 3 (three) times daily as needed for anxiety. Insomnia, unspecified type Educated pt about sleep hygiene. Cut down caffeine intake and encouraged pt to try hydroxyzine at HS if OTC melatonin is not effective. She has to get up really early for the kids so does not want to take anything that would make her groggy. Plan Risks, benefits, and alternatives were discussed. Patient/guardian understood and agreed with the plan. Reviewed Safety Plan: Call 911 or go to ED if in crisis. Advised of availability of after hours RN by calling main number for [email or web address]. Follow-up: No follow-ups on file. Upcoming Appointments: Appointments for the next 13 months 10/05/2025 3:30 PM COUNSELING STANDARD [facility] VASQUEZ Whaley 45 min 12/04/2025 2:20 PM MEDICATION MANAGEMENT [facility] [id number] BW NURSE LUCI MONTANA 20 min 12/04/2025 2:40 PM MEDICATION MANAGEMENT [facility] Herberth Montana DO 20 min Reason for visit: Psychiatric Med Management Matthew presents prior to their psychiatry provider visit to evaluate medication effectiveness, update medical history, and review overall treatment status. Video conference visit ([employer]). Patient identity confirmed via name and date of . Potential risks and benefits discussed with patient/guardian, who verbalized consent for telehealth encounter. Patient location: home. Subjective Interval history and patient concerns: Client denies any issues with current medication. Mood is good. No major mood swings. Having trouble getting to sleep at night. Waking up throughout night. Averages 6 hrs of sleep. Appetite is ok. Denies thoughts of self harm or harming others. No manic episodes. Denies hallucinations or delusional thoughts. Depression is good. Energy is good. No hopelessness. Anxiety is ok, manageable. Living at aunts with her kids, the kids go to [employer] 3 days per week. Reports she is getting along ok with SHEEX. Current Outpatient Medications Medication Sig Dispense Refill amoxicillin-pot clavulanate (AUGMENTIN) 875-125 mg per tablet Take 1 Tablet by mouth 2 (two) times daily. divalproex (DEPAKOTE ER) 500 mg 24 hr tablet Take 3 Tablets by mouth every evening. 90 Tablet 1 escitalopram (LEXAPRO) 20 mg tablet Take 1 Tablet by mouth once daily. 30 Tablet 1 risperiDONE (RISPERDAL) 3 mg tablet Take 1 Tablet by mouth nightly at bedtime. 30 Tablet 1 rizatriptan (MAXALT) 10 mg tablet Take 10 mg by mouth. hydrOXYzine HCL (ATARAX) 25 mg tablet Take 1 Tablet by mouth 3 (three) times daily as needed for anxiety. 90 Tablet 0 risperiDONE (RISPERDAL) 0.5 mg tablet Take 1 Tablet by mouth once daily as needed for other reason (agitation). 30 Tablet 0 ondansetron ODT (ZOFRAN-ODT) 4 [...] most recent episode hypomanic (primary encounter diagnosis) Comment: Risk Assessment: Acute risk for harm to self/others: Low Plan Verified patient medications and allergies; updated patient medical history in medical record. Provided report to Dr. Montana regarding patient concerns and status. Follow up as scheduled Upcoming appointments: Appointments for the next 13 months 10/05/2025 3:30 PM [facility]SELING STANDARD [facility] VAS[facility] Whaley 45 min documented in this encounter [facility] Work Phone: 09-22-2025 History of Present illness Narrative Reason for Visit: Individual Counseling Video conference visit (Price.). Patient identity confirmed via name and date of . Potential risks and benefits discussed with patient/guardian, who verbalized consent for telehealth encounter. Patient location: other: CL is at Aunt's. Problem: CL reports meeting someone new and having a connection and stated, we have a ton in common, we both want one more kid, both bipolar and both have traumatic past and looking for a relationship. CL reports starting a new job at [employer] following week. CL reports since being back to Aunt's house having no anxiety but having difficult time getting to bed. CL expressed having some concern due to children's father threats of wanting full custody. F42.9 Obsessive-compulsive disorder, unspecified type (primary encounter diagnosis) Mental Status Exam: Within normal limits. Intervention: The following goals were addressed today: To manage my anxiety and intrusive thoughts better Next Care Plan Review Date: 07/28/2026 Provider addressed Matthew's concerns related to the presenting problem above through the following therapeutic interventions: Active and reflective listening, Enhancing coping skills, Facilitating exploration and naming of emotions, and Symptom management, skill building. Acute risk for harm to self/others: Low C-SSRS Screen Response/Impression: Matthew demonstrated minimal improvement in session today as [...] about goals. TH offered support and encouragement. [facility]-24 Clinical Severity - Most Recent Administration Date [...] Patel (2018). BASIS-24 results were reviewed. Plan: Matthew's follow-up/homework: CL will start incorporating somatic exercises prior to bed to help have better sleep hygiene. Provider's follow-up/referrals/action items: N/A Next appointment with this provider: 09/29/2025 VASQUEZ Whaley documented in this encounter [employer] Phone: 09-14-2025 Nurse Note CL was outreached regarding appt change and left message. CL was asked to call if needing sooner appt than scheduled. documented in this encounter [employer] Phone: 09-05-2025 History of Present illness Narrative Reason for Visit: Individual Counseling Video conference visit ([employer]). Patient identity confirmed via name and date [...] Intervention: The following goals were addressed today: To manage my anxiety and intrusive thoughts better Next Care Plan Review Date: 07/28/2026 Provider addressed Matthew's concerns related to the presenting problem above through the following therapeutic interventions: Active and reflective listening and Enhancing coping skills. Acute risk for harm to self/others: Low C-SSRS Screen Response/Impression: Matthew demonstrated minimal improvement in session today as [...] Patel (2018). BASIS-24 results were reviewed. Plan: Matthew's follow-up/homework: CL will try reading and incorporating somatic exercises prior to bed to help relax prior to bed. Provider's follow-up/referrals/action items: N/A Next appointment with this provider: 09/15/25 documented in this encounter [email or web address] Work Phone: 08-28-2025 History of Present illness Narrative Reason for Visit: Individual Counseling Video conference visit (Price.). Patient identity confirmed via name and date of . Potential risks and benefits discussed with patient/guardian, who verbalized consent for telehealth encounter. Patient location: other: CL was at mother's home in [place] with unknown address during time of call . Problem: CL informed of still living at Aunt's house but has been staying at Mom's for sleep overs. CL expressed still feeling manipulated when dropping kids off and stated, I made him coffee because it was just easier. CL reports increased texts and calls since [...] Intervention: The following goals were addressed today: To manage my anxiety and intrusive thoughts better Next Care Plan Review Date: 07/28/2026 Provider addressed Matthew's concerns related to the presenting problem above through the following therapeutic interventions: Active and reflective listening, Assist in problem solving, Empathetic validation and support, Motivational interviewing, and Symptom management, skill building. Acute risk for harm to self/others: Low C-SSRS Screen Response/Impression: Matthew demonstrated moderate improvement in session today as [...] Patel (2018). BASIS-24 results were reviewed. Plan: Matthew's follow-up/homework: CL was encouraged to continue to [...] and verbal abusive behavior. CL reports feeling calm. CL stated would be staying at Aunt's house for a few days then dropping kids off for [address] order. CL informed of going to court months ago but forgot to disclosing prior. CL reports staying at Mom's house currently, for girl's night. CL expressed having significant guilt about moving out and feeling bad for babies. CL reports children's withheld medication and would not allow client to take any of personal belongings or clothes for self/children. F31.71 Bipolar disorder, in partial remission, most recent episode hypomanic ([facility]) (primary encounter diagnosis) Mental Status Exam: Within normal limits. Intervention: The following goals were addressed today: To manage my anxiety and intrusive thoughts better Next Care Plan Review Date: 07/28/2026 Provider addressed Matthew's concerns related to the presenting problem above through the following therapeutic interventions: Active and reflective listening, Assist in problem solving, Empathetic validation and support, Empowerment and choice, Enhancing coping skills, and Facilitating exploration and naming of emotions. Acute risk for harm to self/others: Low C-SSRS Screen Response/Impression: Matthew demonstrated minimal improvement in session today as [...] (2018). BASIS-24 results were not reviewed. Plan: Matthew's follow-up/homework: CL will connect with police to get items from home. Provider's follow-up/referrals/action items: N/A Next appointment with this provider: 08/28/2025 documented in this encounter [facility] Work Phone: 08-20-2025 History of Present illness Narrative Associated Problem(s): Bipolar disorder, in partial remission, most recent episode hypomanic (CMS & HHS-HCC) Stable;continue current med regimen Orders: RN NURSING PER 15 MIN [[id number]] divalproex (DEPAKOTE ER) 500 mg 24 hr [...] mouth once daily. Subjective Video conference visit (Price.). Patient identity confirmed via name and date of . Potential risks and benefits discussed with patient/guardian, who verbalized consent for telehealth encounter. Patient location: home. Chief Complaint: Psychiatric Med Management HPI Matthew Huang is a 35 year old female [...] last drank yesterday 01/30/25: Copied forward from [facility] (Dec admission): ALLERGIES Allergen Reactions Clindamycin [...] % Change in weight 20.9 Height 5' 4 (162.6 cm) Estimated body mass index is 32.79 kg/m as calculated from the following: Height as of 04/24/25: 5' 4 (1.626 m). Weight as of 04/24/25: 191 [...] regimen Orders: RN NURSING PER 15 MIN [[id number]] divalproex (DEPAKOTE ER) 500 mg 24 hr [...] hours RN by calling main number for [email or web address]. Follow-up: No follow-ups on file. Upcoming Appointments: Appointments for the next 13 months 08/25/2025 10:00 AM COUNSELING STANDARD [facility] VASQUEZ Whaley 45 min 09/01/2025 10:00 AM COUNSELING STANDARD [facility] VASQUEZ Whaley 45 min 09/08/2025 11:00 AM COUNSELING STANDARD [facility] VASQUEZ Whaley 45 min 09/29/2025 10:40 AM NEW PATIENT [facility] Weiss MD 20 min 10/02/2025 3:20 PM MEDICATION MANAGEMENT [facility] SA209 BW NURSE LUCI MONTANA 20 min 10/02/2025 3:40 PM MEDICATION MANAGEMENT [facility] Herberth Montana DO 20 min Reason for visit: Psychiatric Med Management Matthew presents prior to their psychiatry provider visit to evaluate medication effectiveness, update medical history, and review overall treatment status. Video conference visit (Price.vt). Patient identity confirmed via name and date of . Potential risks and benefits discussed with patient/guardian, who verbalized consent for telehealth encounter. Patient location: home. Subjective Interval history and patient concerns: Client reports about a month ago started drinking every day. Drinking Truly or Smirnoffs. Drinking 5-10 drinks per day. Denies blacking out. [place] drunk. Friend came over and she drank [...] at all. Reports she is staying at [employer]. Daughter goes to preschool Thursday thru , [...] in partial remission, most recent episode hypomanic ([facility]) (primary encounter diagnosis) Comment: Risk Assessment: Acute risk for harm to self/others: Low Plan Verified patient medications and allergies; updated patient medical history in medical record. Provided report to Dr. Montana regarding patient concerns and status. Follow up as scheduled Reach out to counselor for extra support. Upcoming appointments: Appointments for the next 13 months 08/25/2025 10:00 AM COUNSELING STANDARD [facility] VASQUEZ Whaley 45 min 09/01/2025 10:00 AM COUNSELING STANDARD [facility] VASQUEZ Whaley 45 min 09/08/2025 11:00 AM COUNSELING STANDARD [facility] VASQUEZ Whaley 45 min 09/29/2025 10:40 AM NEW PATIENT [facility] Everett Weiss MD 20 min documented in this encounter [facility] Work Phone: 08-11-2025 History of Present illness Narrative Reason for Visit: Individual Counseling Video conference visit (Price.). Patient identity confirmed via name and date of . Potential risks and benefits discussed with patient/guardian, who verbalized consent for telehealth encounter. Patient location: home. Problem: CL called in to jimy after appt was initially cancelled and called. CL stated phone was not working and appt was added back to schedule. CL expressed feeling hurt about comments made from partner and reports partner stated, your too fat and not a real women. Cl reports no changes in alcohol use and stated, I want to be sedated when I have to deal with him. CL expressed having internal conflict about leaving and moving to Aunt's house due to financial concerns and having limited support for attendant children's institution. F43.10 Post traumatic stress disorder (primary encounter diagnosis) Mental Status Exam: Within normal limits. Intervention: The following goals were addressed today: To manage my anxiety and intrusive thoughts better Next Care Plan Review Date: 07/28/2026 Provider addressed Matthew's concerns related to the presenting problem above through the following therapeutic interventions: Active and reflective listening, Empathetic validation and support, Empowerment and choice, Enhancing coping skills, Facilitating exploration and naming of emotions, Risk assessment and safety planning, and Symptom management, skill building. Acute risk for harm to self/others: Low C-SSRS Screen Response/Impression: Matthew demonstrated no change in session today as [...] when feeling triggered or feeling comfortable to take breaks to reduce stressors. TH will continue to [...] (2018). BASIS-24 results were not reviewed. Plan: Matthew's follow-up/homework: CL will be mindful about alcohol use and reaching out to support system Provider's follow-up/referrals/action items: CL will discuss alcohol use at upcoming psych appt Next appointment with this provider: 08/25/25 documented in this encounter [email or web address] Work Phone: 08-04-2025 History of Present illness Narrative Reason for Visit: Individual Counseling Video conference visit (Price.). Patient identity confirmed via name and date of . Potential risks and benefits discussed with patient/guardian, who verbalized consent for telehealth encounter. Patient location: home. Problem: CL stated nothing new has gone on and feeling ok. Cl stated, I'm getting out of hand with my drinking. CL reports drinking more and feeling too stressed with two babies and eight dogs. CL reports drinking 8-10 drinks every night. CL stated, I am not good at using coping skills. CL expressed feeling euphoric and manic after drinking. F42.9 Obsessive-compulsive disorder, unspecified type (primary encounter diagnosis) Mental Status Exam: Within normal limits. Intervention: The following goals were addressed today: To manage my anxiety and intrusive thoughts better Next Care Plan Review Date: 07/28/2026 Provider addressed Matthew's concerns related to the presenting problem above through the following therapeutic interventions: Active and reflective listening, Enhancing coping skills, Motivational interviewing, and Symptom management, skill building. Acute risk for harm to self/others: Low C-SSRS Screen Response/Impression: Matthew demonstrated deterioration in session today as evidenced [...] (2018). BASIS-24 results were not reviewed. Plan: Matthew's follow-up/homework: CL was asked to make list of wanted changes, willing changes and identify a positive coping skill Provider's follow-up/referrals/action items: N/A Next appointment with this provider: 08/11/2025 documented in this encounter [facility] Work Phone: 07-28-2025 History of Present illness Narrative Reason for Visit: Individual Counseling Video conference visit (Price.). Patient identity confirmed via name and date of . Potential risks and benefits discussed with patient/guardian, who verbalized consent for telehealth encounter. Patient location: home. Problem: CL expressed feeling ok since last appt and having no significant symptoms. CL informed of having friend over to house and having some alcohols drinks week prior. CL reports since having drinks having cravings to drink more frequently. F42.9 Obsessive-compulsive disorder, unspecified type (primary encounter diagnosis) Mental Status Exam: Within normal limits. Intervention: The following goals were addressed today: To manage my anxiety and intrusive thoughts better Next Care Plan Review Date: 07/28/2026 Provider addressed Matthew's concerns related to the presenting problem above through the following therapeutic interventions: Active and reflective listening, Enhancing coping skills, Symptom management, skill building, and Treatment planning. Acute risk for harm to self/others: Low C-SSRS Screen Response/Impression: Matthew demonstrated minimal improvement in session today as [...] results were reviewed with the patient. Plan: Matthew's follow-up/homework: CL will attend an AA and [...] abilities to reach your treatment plan goals? I won't give up Assessed Needs / LOC Level of Service: Outpatient Active Individual Counseling To manage my anxiety and intrusive thoughts better Start: 07/28/25 Expected End: 07/28/26 By the [...] building [facility] Whaley PSYCHIATRIC MEDICATION MANAGEMENT GOAL: I want to take my medication everday and monitoring symptoms Start: 07/19/24 Expected End: 07/28/26 Objective: I will understand my mental health diagnoses and symptoms that could benefit from medication treatment. Expected End: 07/28/26 Care Engineering Mathematician will complete a psychiatric evaluation to identify and/or clarify psychiatric diagnoses as well as symptoms that are appropriate targets for medication treatment. Services: Psychiatry Frequency: PRN Care Engineering Mathematician will assess my general health, including risk [...] each are prescribed. Expected End: 07/28/26 Care Engineering Mathematician will provide education on each prescribed psychiatric medication, including potential interactions with other medications or drugs/alcohol. Services: Psychiatry Frequency: PRN Objective: I will participate in regular follow-up visits for monitoring my condition s response to psychiatric medication. Expected End: 07/28/26 Care Engineering Mathematician will assess response to medication, including impact on functioning and quality of life, at each follow-up visit. Services: Psychiatry Frequency: PRN Care Engineering Mathematician will administer necessary standardized assessment tools or laboratory monitoring to monitor medication response. Services: Psychiatry Frequency: PRN Care Engineering Mathematician will assess for medication side effects at each follow-up visit. Services: Psychiatry Frequency: PRN Service Conclusion Criteria/Transition/Discharge: What progress have you made towards achieving your goal so far?: I feel like talking about things helps to manage anxiety and having an unbiased person What have you achieved as a result of participating in services?: My mental health as gotten better and feel more stable due to medication and counseling What will you need to continue your recovery and maintain your health? I would like more support with the babies and to continue attending counseling and taking meds If applicable, are you taking your medication as prescribed?: Cl reports medication compliance Referral information (internal and external): NA What will you do if you start to experience a recurrence in symptoms?: I'm gonna call Paulina Nyla for Today s Plan: Patient acknowledges participating, agrees with plan. Participant/guardian/caregiver acknowledges participating, agrees with plan. Copies Provided Today To: Via [employer] / ADMINISTRATIVE: Administrative Information: Document Type: Update Next Review: 07/28/2026 Freq: Yearly documented in this encounter [facility] Work Phone: 07-13-2025 History of Present illness Narrative Reason for Visit: Individual Counseling Video conference visit (Price.). Patient identity confirmed via name and date of . Potential risks and benefits discussed with patient/guardian, who verbalized consent for telehealth encounter. Patient location: home. Problem: Holger reports having another breast infection and having to go to ED but was able to be discharged without any hospital stay. CL reports feeling sick and is contributing to daughter coming home with germs. CL stated feeling that Depakote is working and feeling less symptomatic with anxiety, depression or manic feelings. CL expressed no use of coping skills and is contributing reduced symptoms to medication. CL expressed feeling really busy and with in home tasks after having a migraine for two days. F31.71 Bipolar disorder, in partial remission, most recent episode hypomanic ([facility]) (primary encounter diagnosis) Mental Status Exam: Within normal limits. Intervention: The following goals were addressed today: GOAL: I will identify and balance thoughts that trigger my anxiety (see measurable component below): and GOAL: I want to take my medication everday and monitoring symptoms Next Care Plan Review Date: 07/19/2025 Provider addressed Matthew's concerns related to the presenting problem above through the following therapeutic interventions: Active and reflective listening, Enhancing coping skills, and Symptom management, skill building. Acute risk for harm to self/others: Low C-SSRS Screen Response/Impression: Matthew demonstrated minimal improvement in session today as evidenced by reduce presence of frustration with children and animals during appt. TH explored using emotion regulation techniques and coping skills to help to continue with improvement. HOLGER was in disagreement about use of coping skills and would like to continue to use medication as primary source of regulation. TH discussed positives of being able to see primary care and connect when having physical concerns. HOLGER was receptive to having PCP referral. Overall [...] Patel (2018). BASIS-24 results were reviewed. Plan: Matthew's follow-up/homework: CL was encouraged to try using coping skills in addition to medication to help manage symptoms. Provider's follow-up/referrals/action items: N/A Next appointment with this provider: 07/28/25 documented in this encounter [employer] Phone: 07-10-2025 History of Present illness Narrative Missed scheduled RN visit. No response to texts x2. documented in this encounter [employer] Phone: 07-05-2025 History of Present illness Narrative [...] consistent with hypomanic mood state rather than abigail per se. Repeat depakote level. Continue to monitor mood and consider increasing depakote dosage if trough level is in subtherapeutic range. Pt declined to continue lamotrigine. Orders: RN NURSING PER 15 MIN [[id number]] risperiDONE (RISPERDAL) 0.5 mg tablet; Take 1 Tablet by mouth once daily as needed for other reason (agitation). divalproex (DEPAKOTE ER) 500 mg 24 hr tablet; Take 3 Tablets by mouth every evening. Subjective Video conference visit (Price.). Patient identity confirmed via name and date of . Potential risks and benefits discussed with patient/guardian, who verbalized consent for telehealth encounter. Patient location: home. Chief Complaint: Psychiatric Med Management HPI Matthew Huang is a 35 year old female with h/o bipolar disorder and NIKKIE, presenting for f/u visit. 06/19/25: Reports she is no longer rapid-cycling, but feels she is manic- described symptoms include difficulty falling asleep, feeling hyperactive, cleaning the house. Still getting 7 hours of sleep every night. Denies grandiosity or risk-taking behaviors, no flight of ideas. I just basically feel hyper. Pt stopped taking the lamotrigine about a [...] past infections. 05/29/25: Pt continues to c/o rapid cycling with mood states lasting a few days [...] says she loves it but is on really high dose together with lithium. 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 Weight as of 04/24/25: 191 [...] consistent with hypomanic mood state rather than abigail per se. Repeat depakote level. Continue to monitor mood and consider increasing depakote dosage if trough level is in subtherapeutic range. Pt declined to continue lamotrigine. Orders: RN NURSING PER 15 MIN [[id number]] risperiDONE (RISPERDAL) 0.5 mg tablet; Take 1 [...] hours RN by calling main number for [email or web address]. Follow-up: No follow-ups on file. Upcoming Appointments: Appointments for the next 13 months 07/10/2025 8:00 AM NURSE VISIT SHORT [facility] Tessa Dill RN 20 min 07/13/2025 12:00 PM COUNSELING STANDARD [facility] VASQUEZ Whaley 45 min 07/31/2025 1:00 PM MEDICATION MANAGEMENT [facility] [address] NURSE RUBÉN 20 min 07/31/2025 1:20 PM MEDICATION MANAGEMENT [facility] Herberth Montana DO 20 min Reason for visit: Psychiatric Med Management Matthew presents prior to their psychiatry provider visit to evaluate medication effectiveness, update medical history, and review overall treatment status. Video conference visit (). Patient identity confirmed [...] thoughts. Denies depression symptoms. Reports anxiety is pretty bad. Reports having panic attacks every day. No [...] full remission, most recent episode unspecified type ([facility]) (primary encounter diagnosis) Comment: Risk Assessment: Acute risk for harm to self/others: Low Plan Verified patient medications and allergies; updated patient medical history in medical record. Provided report to Dr. Montana regarding patient concerns and status. Follow up as scheduled Upcoming appointments: Appointments for the next 13 months 06/19/2025 3:40 PM MEDICATION MANAGEMENT [facility] Herberth Montana DO 20 min 06/22/2025 12:30 PM COUNSELING STANDARD [facility] VASQUEZ Whaley 45 min documented in this [...] contact client. documented in this encounter [facility] Work Phone: 07-04-2025 Note [facility] 07-04-2025 History of Present illness Narrative Radiology Service Progress Note PATIENT NAME: Matthew Huang DATE OF SERVICE: July 04, 2025 TIME: [...] PATIENT PRESENTS WITH AN IMPLANTABLE OR ATTACHED TECHNICAL TRAINING MANAGER: N/A RADIOLOGY DEPARTMENT: Ultrasound PERIPHERAL IV DATA: Not applicable SIGNED BY: Kathy Perdomo RDMS, RVRadha July 04, 2025 4:01 PM documented in this encounter [facility] 06-22-2025 History of Present illness Narrative Reason for Visit: Individual Counseling Video conference visit (Price.). Patient identity confirmed via name and date of . Potential risks and benefits discussed with patient/guardian, who verbalized consent for telehealth encounter. Patient location: home. Problem: CL reports feeling upset about weight gain and feeling unhealthy. CL stated medications cause weight gain and stated, getting ready to start better me. CL reports no changes in feeling overwhelmed and kids are a lot. CL stated, I'm not good at relationships because I'm not emotional or affectionate. F31.71 Bipolar disorder, in partial remission, most recent episode hypomanic (CMS & [facility]-H[facility]) (primary encounter diagnosis) Mental Status Exam: Within normal limits. Intervention: The following goals were addressed today: GOAL: I know it will never go away but I want to get better coping skills to manage Next Care Plan Review Date: 07/19/2025 Provider addressed Matthew's concerns related to the presenting problem above through the following therapeutic interventions: Active and reflective listening, Enhancing coping skills, and Motivational interviewing. Acute risk for harm to self/others: Low C-SSRS Screen Response/Impression: Matthew demonstrated no change in session today as [...] Patel (2018). BASIS-24 results were reviewed. Plan: Matthew's follow-up/homework: CL was recommended to engage in self care activity. Provider's follow-up/referrals/action items: N/A Next appointment with this provider: 07/04/25 documented in this encounter [facility] Work Phone: 06-21-2025 Note [facility] 06-21-2025 Procedure note Images from the [...] Pulse 81 LMP (LMP Unknown) Patient name: Matthew Huang : 1990 ALLERGIES Allergen Reactions Meropenem [...] for migraine Informed Consent Consent Obtained: Written [place] Protocol A moment to CARE was completed [...] collected. Written Consent Obtained: Written LOT #: [id number] Expiration Date: Month: Year: 2026 Injection Sites Left (Units) Left (Sites) Right (Units) Right (Sites) TOTAL (Units) Stock Hanger 5 1 5 1 10 Procerus Units: [...] Analgesic Diclofenac (Voltaren, Cataflam, Cambia) Hydrocodone/Acetaminophen (Vicodin, [place]) Anti-Anxiety Alprazolam (Xanax, Niravam) Diazepam (Valium) Anti-Convulsant Lamotrigine (Lamictal) Topiramate (Topamax, Trokendi XL, Qudexy) Anti-Depressant and Antipsychotic Quetiapine (Seroquel) Antiemetics Ondansetron Promethazine Anti-Migraine Rizatriptan (Maxalt) Sumatriptan (Imitrex, Sumavel) GEPANTS Ubrogepant (Ubrelvy) Rimegepant (Nurtec) Supplements CoQ10 Magnesium Riboflavin Other Medications Dexamethasone (Decadron) Methylprednisolone (Medrol) Prednisone Over the Counter Medications Acetaminophen (Tylenol) Ibuprofen (Advil, Motrin) Jaja Moss APRN.[place] [facility] 06-21-2025 Instructions Jaja Moss APRN.CNP - 06/21/2025 11:05 AM EDT Images from the original note were not included. [facility] [place] Frequently Asked Questions about Botox Treatment for [...] Botox to understand your coverage and any rpk-av-ncsynf costs. Botox injections are scheduled every 12-13 [...] If you haven t heard from a wheel press operator within 1-2 weeks, please call our office at [phone] (select option 1 for Botox schedulers). Feel free to contact us with any other questions or concerns about Botox: Senior Mainframe Developer [phone] or Once my appointment is scheduled, how should [...] Botox to understand your coverage and any dly-ap-cneusy costs. Do I need a water tanker driver? No; however, if it is the [...] , or . documented in this encounter [facility] 06-21-2025 Procedure note Images from the [...] Pulse 81 LMP (LMP Unknown) Patient name: Matthew Huang : 1990 ALLERGIES Allergen Reactions Meropenem [...] for migraine Informed Consent Consent Obtained: Written [place] Protocol A moment to CARE was completed [...] collected. Written Consent Obtained: Written LOT #: [id number] Expiration Date: Month: 10 Year: 2026 Injection Sites Left (Units) Left (Sites) Right (Units) Right (Sites) TOTAL (Units) Stock Hanger 5 1 5 1 10 Procerus Units: [...] Analgesic Diclofenac (Voltaren, Cataflam, Cambia) Hydrocodone/Acetaminophen (Vicodin, [place]) Anti-Anxiety Alprazolam (Xanax, Niravam) Diazepam (Valium) Anti-Convulsant Lamotrigine (Lamictal) Topiramate (Topamax, Trokendi XL, Qudexy) Anti-Depressant and Antipsychotic Quetiapine (Seroquel) Antiemetics Ondansetron Promethazine Anti-Migraine Rizatriptan (Maxalt) Sumatriptan (Imitrex, Sumavel) GEPANTS Ubrogepant (Ubrelvy) Rimegepant (Nurtec) Supplements CoQ10 Magnesium Riboflavin Other Medications Dexamethasone (Decadron) Methylprednisolone (Medrol) Prednisone Over the Counter Medications Acetaminophen (Tylenol) Ibuprofen (Advil, Motrin) Jaja Moss APRN.PATIENT SERVICES REPRESENTATIVE documented in this encounter [facility] 05-29-2025 History of Present illness Narrative [...] daily. Associated Problem(s): Bipolar disorder, rapid cycling ([facility]) Increase depakote to 1500 mg po qhs [...] depakote). Orders: RN NURSING PER 15 MIN [[id number]] lamoTRIgine (LAMICTAL) 100 mg tablet; Take 0.5 Tablets by mouth once daily. divalproex (DEPAKOTE ER) 500 mg 24 hr tablet; Take 3 Tablets by mouth every evening. Subjective Video conference visit (Price.). Patient identity confirmed via name and date of . Potential risks and benefits discussed with patient/guardian, who verbalized consent for telehealth encounter. Patient location: home. Chief Complaint: Psychiatric Med Management HPI Matthew Huang is a 35 year old female with h/o bipolar disorder and NIKKIE, presenting for f/u visit. 05/29/25: Pt continues to c/o rapid cycling with mood states lasting a few days [...] says she loves it but is on really high dose together with lithium. 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 Weight as of 04/24/25: 191 [...] mouth once daily. Bipolar disorder, rapid cycling ([facility]) Increase depakote to 1500 mg po qhs [...] depakote). Orders: RN NURSING PER 15 MIN [SX1020] lamoTRIgine (LAMICTAL) 100 mg tablet; Take 0.5 [...] hours RN by calling main number for [email or web address]. Follow-up: No follow-ups on file. Upcoming Appointments: Appointments for the next 13 months 06/14/2025 8:30 AM COUNSELING STANDARD [facility] VASQUEZ Whaley 45 min 06/19/2025 3:20 PM MEDICATION MANAGEMENT [facility] [id number] NURSE LUCI MONTANA 20 min 06/19/2025 3:40 PM MEDICATION MANAGEMENT [facility] Herberth Montana DO 20 min Reason for visit: Psychiatric Med Management Matthew presents prior to their psychiatry provider visit to evaluate medication effectiveness, update medical history, and review overall treatment status. Video conference visit (Price.). Patient identity confirmed via name and date of . Potential risks and benefits discussed with patient/guardian, who verbalized consent for telehealth encounter. Patient location: home. Subjective Interval history and patient concerns: Client reports she is still rapid cycling. Intrusive thoughts are fine, not bothering her. Denies thoughts of self harm or harming others. Mood is a little manic. Feels she is hyper for the past [...] the hospital. Some depression symptoms. Anxiety is pretty bad. States she is managing the kids fine and has a routine with them. Currently staying at her aunt Nicholas house, stating a few weeks to a month, she has been staying there. States she was int hosptial for 14 days. Current Outpatient Medications [...] full remission, most recent episode unspecified type ([facility]) (primary encounter diagnosis) Comment: Risk Assessment: Acute risk for harm to self/others: Low Plan Verified patient medications and allergies; updated patient medical history in medical record. Provided report to Dr. Montana regarding patient concerns and status. Follow up as scheduled Upcoming appointments: Appointments for the next 13 months 05/29/2025 12:40 PM MEDICATION MANAGEMENT [facility] Herberth Montana DO 20 min 06/14/2025 8:30 AM COUNSELING STANDARD [facility] Whaley 45 min documented in this encounter [facility] Work Phone: 05-23-2025 History of Present illness Narrative Reason for Visit: Individual Counseling Video conference visit (Price.). Patient identity confirmed via name and date [...] weeks for up to six months. CL stated,I feel really shitty and have a lot of side effects. CL expressed feeling very overwhelmed with children and stated, I hate this age, I can't wait for them to be older and do things themselves. CL reported having no support in home, no support from Aunt and is expected to clean, cook, and take care kids and dogs. CL stated, I just need to do better. F60.3 Borderline personality disorder ([facility]) (primary encounter diagnosis) Mental Status Exam: Within normal limits. Intervention: The following goals were addressed today: GOAL: I will learn and use 1-3 skills to manage thoughts, feelings, and urges brought on by encounters with trauma-related situations. and GOAL: Identify and discuss unresolved life conflicts (see measurable component below): Next Care Plan Review Date: 07/19/2025 Provider addressed Matthew's concerns related to the presenting problem above through the following therapeutic interventions: Active and reflective listening, Enhancing coping skills, and Symptom management, skill building. Acute risk for harm to self/others: Low C-SSRS Screen Response/Impression: Matthew demonstrated no change in session today as [...] (2018). BASIS-24 results were not reviewed. Plan: Matthew's follow-up/homework: CL was recommended to engage in self care Provider's follow-up/referrals/action items: N/A Next appointment with this provider: 06/14/25 documented in this encounter [email or web address] Work Phone: 05-22-2025 Note HNO ID: [id number] Author: VANESSA CLEMENTS RN Service: Care Management [...] Friday May 30, 2025 2:20 PM Nidhi Tavarez MD [facility]) HIGH RISK READMISSION NOTE: HAS [...] 2025 2:20 PM Office Visit with Nidhi Tavarez MD DISCHARGE PLAN:home with family-f/w appts scheduled SIGNATURE: Vanessa Clements RN PATIENT NAME: Matthew Huang DATE: May 22, 2025 TIME: 2:24 PM [facility] 05-21-2025 Note HNO ID: [id number] Author: DELMI ROSENTHAL MD Service: Hospital Medicine Author Type: Physician Type: Progress Notes Filed: 05/21/2025 12:53 Note Text: [facility] Inpatient PROGRESS NOTE PATIENT NAME: Matthew Huang SERVICE DATE: 05/21/2025 SERVICE TIME: 12:43 PM HOSPITAL DAY: 3 PRIMARY CARE PHYSICIAN: No primary care provider on file. CODE STATUS: Code Status: Full Code Days: [phone], please page Delmi Rosenthal MD for patient issues either through mypaging or Epic/Haiku. Nights: [phone], please page [facility] night coverage pager [phone] for Team 1,2 AND3. Impression: Matthew Huang is a35 year old female with [...] (Oral) Resp 16 Ht 162.6 cm (5' 4) Wt 85.7 kg (189 lb) LMP (LMP Unknown) SpO2 95% BMI 32.44 kg/m? General Appearance: Well developed and Well nourished HEENT: PERRLA and EOM's intact Lungs: Clear Heart: Regular rate AND rhythm, No heaves, No lifts, and No thrills Abdomen: Soft, Firm, Round, and Non-tender Skin: Warm, Breast exam in presence of Program Trainer Nurse purulent drainage from right breast. Musculoskeletal: [...] 0.0 -- COAG: No results for input(s): APTT, INR in the last 168 hours. BMP: Recent Labs 05/21/25 0621 05/20/25 0453 05/19/25 [...] 0.74 0.52* 0.54* 0.78 CHEM: Recent Labs 05/21/25 0605/20/25 0453 05/19/25 0555 05/18/25 1540 05/17/25 0904 05/16/25 0637 05/15/25 0342 ALB 3.7* 3.6* 3.8* 4.4 4.2 4.0 3.7* TPROT 5.9* 6.0* 6.2* 7.2 7.1 6.9 6.0* CA 8.7 8.5 8.7 9.2 9.1 9.0 8.8 HEPATIC: Recent Labs 05/21/25 0621 05/20/25 0453 05/19/25 0555 05/18/25 1540 05/17/25 0904 05/16/25 0637 05/15/25 0342 ALKPHOS 99 104 100 111 112 -- 95 ALT 52* 64* 58* 68* 76* -- 39* AST 21 32 27 29 38* -- 21 TBILI 0.2 0.4 0.3 0.2 0.2 0.2 0.3 CARDIAC: No results for input(s): CKTEST, CKMB, CKMBP, TROPT, PBNP in the last 168 hours. URINALYSIS:No results for input(s): PH, SPGR, UGLUC, UBILI, UKET, UHB, UPROT, UROBIL, UWBC, SSA in the last 168 hours. Invalid input(s): NITR Estimated Creatinine Clearance: 120 mL/min (based on [...] anxiety disorder with (more content not included)... [facility] 05-20-2025 Note HNO ID: [id number] Author: DELMI ROSENTHAL MD Service: Hospital Medicine Author Type: Physician Type: Progress Notes Filed: 05/21/2025 13:00 Note Text: [facility] Internal Medicine Inpatient PROGRESS NOTE PATIENT NAME: Matthew Huang SERVICE DATE: 05/20/2025 SERVICE TIME: 1:53 PM HOSPITAL DAY: 2 PRIMARY CARE PHYSICIAN: No primary care provider on file. CODE STATUS: Code Status: Full Code Days: [phone], please page Delmi Rosenthal MD for patient issues either through mypaging or Fleecs/OfficialVirtualDJ. Nights: [phone], please page [facility] night coverage pager [phone] for Team 1,2 AND3. Impression: Matthew Huang is a35 year old female with [...] (Oral) Resp 16 Ht 162.6 cm (5' 4) Wt 85.7 kg (189 lb) LMP (LMP Unknown) SpO2 93% BMI 32.44 kg/m? General Appearance: Well developed and Well nourished HEENT: PERRLA and EOM's intact Lungs: Clear Heart: Regular rate AND rhythm, No heaves, No lifts, and No thrills Abdomen: Soft, Firm, Round, and Non-tender Skin: Warm, Breast exam in presence of Program Trainer Nurse purulent drainage from right breast. Musculoskeletal: [...] -- -- COAG: No results for input(s): APTT, INR in the last 168 hours. BMP: Recent Labs 05/20/2545205/19/25 0555 05/18/25 1540 05/17/25 0904 05/16/25 0637 [...] 0.52* 0.54* 0.78 0.83 CHEM: Recent Labs 05/20/2545205/19/25 0555 05/18/25 1540 05/17/25 0904 05/16/25 0637 05/15/25 0342 05/14/25 0510 ALB 3.6* 3.8* 4.4 4.2 4.0 3.7* -- TPROT 6.0* 6.2* 7.2 7.1 6.9 6.0* -- CA 8.5 8.7 9.2 9.1 9.0 8.8 8.7 HEPATIC: Recent Labs 05/20/253 05/19/25 0555 05/18/25 1540 05/17/25 0904 05/16/25 0637 05/15/25 0342 ALKPHOS 104 100 111 112 -- 95 ALT 64* 58* 68* 76* -- 39* AST 32 27 29 38* -- 21 TBILI 0.4 0.3 0.2 0.2 0.2 0.3 CARDIAC: No results for input(s): CKTEST, CKMB, CKMBP, TROPT, PBNP in the last 168 hours. URINALYSIS:No results for input(s): PH, SPGR, UGLUC, UBILI, UKET, UHB, UPROT, UROBIL, UWBC, SSA in the last 168 hours. Invalid input(s): NITR Estimated Creatinine Clearance: 112 mL/min (based on [...] with panic at (more content not included)... [facility] 05-20-2025 Note HNO ID: [id number] Author: DELMI ROSENTHAL MD Service: Hospital Medicine Author Type: Physician Type: Progress Notes Filed: 05/21/2025 12:42 Note Text: [facility] Internal [facility] Inpatient PROGRESS NOTE PATIENT NAME: Matthew Huang SERVICE DATE: 05/19/2025 SERVICE TIME: 2:55 PM HOSPITAL DAY: 2 PRIMARY CARE PHYSICIAN: No primary care provider on file. CODE STATUS: Code Status: Full Code Days: [phone], please page Cherie Cunningham MD for patient issues either through Intrinsic-[employer] or Fleecs/OfficialVirtualDJ. Nights: [phone], please page [facility] night coverage pager [phone] for Team 1,2 AND3. Impression: Matthew Huang is a35 year old female with [...] (Oral) Resp 16 Ht 162.6 cm (5' 4) Wt 85.7 kg (189 lb) LMP (LMP Unknown) SpO2 97% BMI 32.44 kg/m? General Appearance: Well developed and Well nourished HEENT: PERRLA and EOM's intact Lungs: Clear Heart: Regular rate AND rhythm, No heaves, No lifts, and No thrills Abdomen: Soft, Firm, Round, and Non-tender Skin: Warm, Breast exam in presence of Program Trainer Nurse purulent drainage from right breast. Musculoskeletal: [...] -- -- COAG: No results for input(s): APTT, INR in the last 168 hours. BMP: Recent Labs 05/20/25 0453 05/19/25 0555 05/18/25 1540 05/17/25 0904 05/16/25 0637 05/15/25 03405/14/25 0510 GLUC 89 88 76 131* 120* [...] 0.2 0.3 CARDIAC: No results for input(s): CKTEST, CKMB, CKMBP, TROPT, PBNP in the last 168 hours. URINALYSIS:No results for input(s): PH, SPGR, UGLUC, UBILI, UKET, UHB, UPROT, UROBIL, UWBC, SSA in the last 168 hours. Invalid input(s): NITR Estimated Creatinine Clearance: 112 mL/min (based on [...] unspecified 05/18/2025 At (more content not included)... [facility] 05-19-2025 Note HNO ID: [id number] Author: SUAD ANGLIN MD Service: Hospital Medicine [...] resident. Signature: Suad Anglin MD Staff Physician, [facility] Date: 05/19/2025 Time: 4:26 PM [facility] Inpatient PROGRESS NOTE PATIENT NAME: Matthew Huang SERVICE DATE: 05/19/2025 SERVICE TIME: 2:55 PM HOSPITAL DAY: 1 PRIMARY CARE PHYSICIAN: No primary care provider on file. CODE STATUS: Code Status: Full Code Days: [phone], please page Cherie Cunningham MD for patient issues either through [employer] or Fleecs/OfficialVirtualDJ. Nights: [phone], please page [facility] night coverage pager [phone] for Team 1,2 AND3. Impression: Matthew Huang is a35 year old female with [...] (Oral) Resp 16 Ht 162.6 cm (5' 4) Wt 85.7 kg (189 lb) LMP (LMP Unknown) SpO2 98% BMI 32.44 kg/m? General Appearance: Well developed and Well nourished HEENT: PERRLA and EOM's intact Lungs: Clear Heart: Regular rate AND rhythm, No heaves, No lifts, and No thrills Abdomen: Soft, Firm, Round, and Non-tender Skin: Warm, Breast exam in presence of Program Trainer Nurse purulent drainage from right breast. Musculoskeletal: [...] -- -- COAG: No results for input(s): APTT, INR in the last 168 hours. BMP: Recent [...] 0.2 0.3 CARDIAC: No results for input(s): CKTEST, CKMB, CKMBP, TROPT, PBNP in the last 168 hours. URINALYSIS:No results for input(s): PH, SPGR, UGLUC, UBILI, UKET, UHB, UPROT, UROBIL, UWBC, SSA in the last 168 hours. Invalid input(s): NITR Estimated Creatinine Clearance: 123.5 mL/min (based on [...] mg RECTAL DAILY (more content not included)... [facility] 05-18-2025 Note [facility] 05-18-2025 History of Present illness Narrative Radiology Service Progress Note PATIENT NAME: Mattehw Huang DATE OF SERVICE: May 18, 2025 [...] PATIENT PRESENTS WITH AN IMPLANTABLE OR ATTACHED TECHNICAL TRAINING MANAGER: N/A RADIOLOGY DEPARTMENT: Ultrasound PERIPHERAL IV DATA: Not applicable SIGNED BY: Kathy Perdomo RDMS, RVT May 18, 2025 4:12 PM documented in this encounter [facility] 05-18-2025 Telephone encounter Note 35 yo F with PMH NIKKIE, PTSD, OCD, Bipolar I and multiple allergies who presented to the ER with breast concern, per their workup and exam there is concern for mastitis. Being tx for further workup and management. Bethany Lee MD [facility] 05-18-2025 Miscellaneous Notes 35 yo F with PMH NIKKIE, PTSD, OCD, Bipolar I and multiple allergies who presented to the ER with breast concern, per their workup and exam there is concern for mastitis. Being tx for further workup and management. Bethany Lee MD documented in this encounter [facility] 05-18-2025 Nurse Note Manager Target left message for call back. documented in this encounter [employer] Phone: 05-18-2025 Nurse Note Manager Target reached out to Matthew to set up appointment and she stated that she is in the hospital. Manager Target mentioned to call caption writer when out to schedule in person appointment. documented in this encounter [employer] Phone: 05-18-2025 Nurse Note Manager Target left voice message for call back. documented in this encounter [employer] Phone: 05-17-2025 Note HNO ID: [id number] Author: WANDA HAWTHORNE RN Service: Care Management [...] (Home self care) Provider Name: Pt to [facility] with [facility] on 05/30/2025 Caregiver Assessment Caregiver [...] on bedside table as well as phone hide cleaner and black leggings.) Date of Trip: 05/17/25 Destination: [place] Handoff Communication: Handoff to: Other Caregiver Other Caregiver Name/Phone: MUSE to care team (Pt to [facility] with PCP) Pt DC on 05/17 after this CM had left for the day. She was medically cleared to DC home. She had no skilled needs for DC. An appt was set up with her to establish with [facility] on 05/30/2025. An order was also placed in [facility] for her to follow up with allergic after DC. She arranged her transportation home. Per nursing note, she was given her DC instructions and verbalized understanding, when RN re entered her room she had left, AVS on bedside table and also noted to have left a phone hide cleaner and black leggings. The AVS was being [...] establish with PCP DC follow up with triage register nurse order was placed in [facility] PCP OR F/U VISIT ARRANGED ? IF YES, DATE AND PROVIDER: Yes Friday May 30, 2025 2:20 PM Office Visit with Nidhi Tavarez MD [facility] Order placed in [facility] to follow up with triage register nurse; POS team to assist DISCHARGE PLAN:Home with family and children, no skilled needs at DC SIGNATURE: Wanda Hawthorne RN PATIENT NAME: Matthew Huang DATE: May 18, 2025 TIME: 7:43 AM [facility] 05-17-2025 Note HNO ID: [id number] Author: WANDA HAWTHORNE RN Service: Care Management [...] 2025 2:20 PM Office Visit with Nidhi Tavarez MD [facility] ID recommends pt follow up with [facility]/triage register nurse after DC, will need order placed in epic. SIGNATURE: Wanda Hawthorne RN PATIENT NAME: Matthew Huang DATE: May 17, 2025 TIME: 11:05 AM [facility] 05-16-2025 History of Present illness Narrative Associated [...] week. Associated Problem(s): Bipolar disorder, rapid cycling ([facility]) Reduce lamotrigine (d/t reduced clearance when used concurrently with depakote) to 100 mg daily and add depakote ER 500 mg po qhs for mood stability/rapid cycling. Plan to check VPA level in 10-14 days. Orders: RN NURSING PER 15 MIN [SY4320] lamoTRIgine (LAMICTAL) 100 mg tablet; Take 1 Tablet by mouth once daily. Subjective Chief Complaint: Psychiatric Med Management HPI Matthew Huang is a 35 year old female [...] last several days. When she is feeling manic notices she talks a lot and is [...] 2 months ago 01/30/25: Copied forward from [facility] (Dec admission): ALLERGIES Allergen Reactions Clindamycin [...] % Change in weight 20.9 Height 5' 4 (162.6 cm) Estimated body mass index is 32.79 kg/m as calculated from the following: Height as of 04/24/25: 5' 4 (1.626 m). Weight as of 04/24/25: 191 [...] EGFR 95 05/14/2025 No results found for: VALPROIC BASIS-24 Clinical Severity - Most Recent Administration [...] Assessment & Plan Bipolar disorder, rapid cycling ([facility]) Reduce lamotrigine (d/t reduced clearance when used concurrently with depakote) to 100 mg daily and add depakote ER 500 mg po qhs for mood stability/rapid cycling. Plan to check VPA level in 10-14 days. Orders: RN NURSING PER 15 MIN [IP0424] lamoTRIgine (LAMICTAL) 100 mg tablet; Take 1 [...] hours RN by calling main number for [email or web address]. Follow-up: No follow-ups on file. Upcoming Appointments: Appointments for the next 13 months 05/23/2025 1:00 PM COUNSELING STANDARD [facility] Whaley 45 min 05/29/2025 12:20 PM MEDICATION MANAGEMENT [facility] Tessa Dill RN 20 min 05/29/2025 12:40 PM MEDICATION MANAGEMENT [facility] Herberth Montana DO 20 min Reason for visit: Psychiatric Med Management Matthew presents prior to their psychiatry provider visit to evaluate medication effectiveness, update medical history, and review overall treatment status. Video conference visit (Price.). Patient identity confirmed via name and date [...] content: unremarkable Perception: unremarkable Additional objective data: -24 Clinical Severity - Most Recent Administration Date [...] full remission, most recent episode unspecified type ([facility]) (primary encounter diagnosis) Comment: Risk Assessment: Acute risk for harm to self/others: Low Plan Verified patient medications and allergies; updated patient medical history in medical record. Provided report to Dr. Montana regarding patient concerns and status. Follow up as scheduled Upcoming appointments: Appointments for the next 13 months 05/01/2025 9:00 AM MEDICATION MANAGEMENT [facility] Herberth Montana, DO 20 min 05/11/2025 10:20 AM NURSE VISIT SHORT [facility] Tessa Dill RN 20 min 05/29/2025 12:20 PM MEDICATION MANAGEMENT [facility] Tessa Dill RN 20 min 05/29/2025 12:40 PM MEDICATION MANAGEMENT [facility] Herberth Montana, DO 20 min documented in this encounter [facility] Work Phone: 05-16-2025 Note HNO ID: [id number] Author: SUAD ANGLIN MD Service: Hospital Medicine [...] resident. Signature: Suad Anglin MD Staff Physician, [facility] Date: 05/16/2025 Time: 3:53 PM DEPARTMENT [facility] MEDICINE PROGRESS NOTE SERVICE DATE: 05/16/2025 SERVICE TIME: 8:38 AM Hospital Medicine/Primary Attending: Suad Anglin MD NIGHT AND WEEKEND COVERAGE: [employer] COVERAGE:TEAM 1-3: [id number], please secure chat or page Suad Anglin MD For patient issues. Nights [phone], please page F Night Coverage pager ([phone]). Subjective INTERVAL HPI: No major overnight events. HDS sat 94% on RA No fever overnight, with no anitpyretics Bcx NG x 4 Morning labs unremarkable Patient still c/o of bilateral breast pain and purulent discharge. Patient examined with MIRNA Barakat present at bedside. On 05/15 patient have a anaphylactic reaction post daptomycin on day 4, with angioedema and difficulty swelling with lip and throat with difficulty swelling MEDICATIONS: Reviewed Objective PHYSICAL EXAM: BP 113/63 Pulse 80 Temp (Src) 97.7 (Oral) Resp 16 Ht 5' 4 (1.63m) Wt 195 lb (88.5kg) SpO2 95% [...] Drains, and Airways Line Duration Peripheral 05/13/21 5191 [facility] Long Left Forearm 22 Gauge 1463 days DATA: Diagnostic tests reviewed for today's visit: Most recent labs and imaging results. Assessment/Plan Matthew Huang is a35 year old female with [...] mg SQ EVERY 24 HOURS Given, 05/15 18105/14/25 1901 -- 05/13/25 0915 pneumatic compression sleeve(s) ([place]) 05/11/25 2230 activity - mobilize patient ([place]) VTE Prophylaxis: VTE prophylaxis appropriate Disposition: To be determined Plan of care discussed with: Provider, RN, Patient SIGNATURE: Cherie Cunningham MD PATIENT NAME: Matthew Huang DATE: May 16, 2025 TIME: 8:40 AM etx [id number] [facility] 05-15-2025 Note HNO ID: [id number] Author: WANDA HAWTHORNE RN Service: Care Management [...] up PCP order has been placed in epic to assist her in establishing with a PCP upon DC. She is agreeable to [facility] [provider or [facility]. Plan: Anticipate home with no skilled needs at DC. Pt will have transport home at DC. SIGNATURE: Wanda Hawthorne RN PATIENT NAME: Matthew Huang DATE: May 15, 2025 TIME: 10:52 AM [facility] 05-15-2025 History of Present illness Narrative Missed scheduled RN visit. Client hospitalized for mastitis. Vm and My Chart message sent documented in this encounter [facility] Work Phone: 05-15-2025 Note HNO ID: [id number] Author: SUAD ANGLIN MD Service: Hospital Medicine [...] resident. Signature: Suad Anglin MD Staff Physician, [facility] Date: 05/15/2025 Time: 5:30 PM DEPARTMENT OF [facility] MEDICINE PROGRESS NOTE SERVICE DATE: 05/15/2025 SERVICE TIME: 8:38 AM Hospital Medicine/Primary Attending: Suad Anglin MD NIGHT AND WEEKEND COVERAGE: [employer] COVERAGE:TEAM 1-3: [phone], please secure chat or page Suad Anglin MD For patient issues. Nights [phone], please page [facility] Night Coverage pager ([phone]). Subjective INTERVAL HPI: No major overnight events. HDS sat 94% on RA No fever overnight, with no anitpyretics Bcx NG x 3 Morning labs unremarkable Patient still c/o of bilateral breast pain and purulent discharge. Patient examined with MIRNA Barakat present at bedside. MEDICATIONS: Reviewed Objective PHYSICAL EXAM: BP 100/62 Pulse 72 Temp (Src) 97.9 (Oral) Resp 16 Ht 5' 4 (1.63m) Wt 195 lb (88.5kg) SpO2 94% [...] Drains, and Airways Line Duration Peripheral 05/13/21 7965 [facility] Long Left Forearm 22 Gauge 1462 days DATA: Diagnostic tests reviewed for today's visit: Most recent labs and imaging results. Assessment/Plan Matthew Huang is a35 year old female with [...] 1901 -- 05/13/25 0915 pneumatic compression sleeve(s) ([place]) 05/11/25 2230 activity - mobilize patient ([place] VTE Prophylaxis: VTE prophylaxis appropriate Disposition: To be determined Plan of care discussed with: Provider, RN, Patient SIGNATURE: Cherie Cunningham MD PATIENT NAME: Matthew Huang DATE: May 15, 2025 TIME: 8:40 AM etx [id number] [facility] 05-14-2025 Note HNO ID: [id number] Author: SUAD ANGLIN MD Service: Hospital Medicine Author Type: Physician Type: Progress Notes Filed: 05/14/2025 19:02 Note Text: DEPARTMENT OF HOSPITAL MEDICINE PROGRESS NOTE SERVICE DATE: 05/14/2025 SERVICE TIME: 8:40 AM Hospital Medicine/Primary Attending: Suad Anglin MD NIGHT AND WEEKEND COVERAGE: [employer] COVERAGE:TEAM 1-3: [id number], please secure chat or page Suad Anglin MD For patient issues. Nights [phone], please page [facility] Night Coverage pager ([phone]). Subjective INTERVAL HPI: No major overnight events. Patient still c/o of bilateral breast pain and purulent discharge. Patient examined with Nolan Chaves RN present at bedside. MEDICATIONS: Reviewed Objective PHYSICAL EXAM: BP 107/63 Pulse 78 Temp (Src) 97.9 (Oral) Resp 16 Ht 5' 4 (1.63m) Wt 195 lb (88.5kg) SpO2 93% [...] and Airways Line Duration Peripheral 05/13/21 2335 [facility] Long Left Forearm 22 Gauge 1461 days DATA: Diagnostic tests reviewed for today's visit: Most recent labs and imaging results. Assessment/Plan Matthew Huang is a35 year old female with [...] VTE Prophylaxis/Anticoagulants 05/13/25 0915 pneumatic compression sleeve(s) ([place]) 05/11/25 2230 activity - mobilize patient ([place], [place]) VTE Prophylaxis: VTE prophylaxis appropriate Disposition: To be determined Plan of care discussed with: Provider, RN, Patient SIGNATURE: Suad Anglin MD PATIENT NAME: Matthew Huang DATE: May 14, 2025 TIME: 8:40 AM etx [id number] [facility] 05-13-2025 Note HNO ID: [id number] Author: SUAD ANGLIN MD Service: Hospital Medicine [...] resident. Signature: Suad Anglin MD Staff Physician, [facility] Date: 05/13/2025 Time: 7:00 PM [facility] Internal Medicine Inpatient PROGRESS NOTE PATIENT NAME: Matthew Huang SERVICE DATE: 05/13/2025 SERVICE TIME: 8:53 AM HOSPITAL DAY: 0 PRIMARY CARE PHYSICIAN: No primary care provider on file. CODE STATUS: Code Status: Full Code Days: [phone], please page Cherie Cunningham MD for patient issues either through Intrinsic-ID or Fleecs/OfficialVirtualDJ. Nights: [phone], please page [facility] night coverage pager [phone] for Team 1,2 AND3. Impression: Matthew Huang is a35 year old female with [...] (Oral) Resp 16 Ht 162.6 cm (5' 4) Wt 88.5 kg (195 lb) LMP (LMP [...] Net 1420 ml Labs/Data: CBC: Recent Labs 05/13/25 0543 05/12/25 0431 05/11/25 1606 WBC 8.55 5.90 7.53 HB 12.8 13.9 14.7 PLT 241 263 281 MCV 90.1 87.0 89.5 RDWCV 13.7 13.2 13.5 NEUTP -- -- 59.3 ABSNEUT -- -- 4.47 LYMPHP -- -- 31.5 MONOP -- -- 6.5 EODINP -- -- 0.9 COAG: No results for input(s): APTT, INR in the last 168 hours. BMP: Recent Labs 05/13/25 0543 05/12/25 0431 05/11/25 1606 GLUC 84 170* 90 NA 141 140 137 K 4.7 4.4 3.9 CHLOR 109* 109* 100 CO2 22 20* 24 ANION 10 11 13 BUN 16 15 20 CREAT 0.85 0.62 0.80 CHEM: Recent Labs 05/13/25 0543 05/12/25 0431 05/11/25 1606 ALB -- 4.4 4.7 TPROT -- 7.1 7.6 CA 8.6 8.9 9.2 MG -- -- 2.4* HEPATIC: Recent Labs 05/12/25 0431 05/11/25 1606 ALKPHOS 109 120 ALT 44* 53* AST 31 37* TBILI 0.3 0.3 CARDIAC: No results for input(s): CKTEST, CKMB, CKMBP, TROPT, PBNP in the last 168 hours. URINALYSIS:No results for input(s): PH, SPGR, UGLUC, UBILI, UKET, UHB, UPROT, UROBIL, UWBC, SSA in the last 168 hours. Invalid input(s): NITR Estimated Creatinine Clearance: 100.4 mL/min (based on [...] Diagnosis Date Noted (more content not included)... [facility] 05-12-2025 Note HNO ID: [id number] Author: RENETTA WAGNER DO Service: Hospital Medicine [...] Pulse: 72 71 74 78 Resp: 17 17 16 16 Temp: 36.5 ?C (97.7 [...] plan. SIGNATURE: Renetta Wagner DO PATIENT NAME: Matthew Huang DATE: May 12, 2025 TIME: 5:23 PM [facility] 05-12-2025 Note HNO ID: [id number] Author: WANDA HAWTHORNE RN Service: Care Management [...] Significant other Secondary Emergency Contact: Zeynep Manzanares [place] [employer] Relation: Aunt Admission Status: Observation Insurance Provider: [employer] MEDICAID Discharge Planning requested by: Per Department Practice Potential Transition Plans Home Advance Directives Current Advance Directive: Health Care Power of Manager Sas In Chart: Yes Up To Date and Valid: Yes Yes HCPOA paperwok on file within [facility] and verified to be current as of date/time of this note Legal Next of Kin Hierarchy per [place] Revised Code: Healthcare Power of Manager Sas Adri Sawyer 1st alternate (SO) minorsParents Majority of Adult [...] Be able to go home, General wellness [place] of Choice Explained: [place] of Choice Given: No Reason Not Given: [...] her aunt Mookie in a home in [place] [address]. They recently moved from the home that her aunt also owns in [place], [place] about 1 month ago. her two [...] with for mental health counseling with a DOT NET DEVELOPER. She does not have a PCP, is agreeable to establish with CCP provide or NFP. Requested epic order from attending for DC follow up PCP order. Her aunt will provide her DC transportation home. Plan: Anticipate home with no skilled needs. Aunt will provide her DC transport home. Weekend CM: See weekend CM assignment,. can be reached by [employer] or [employer]. HIGH RISK READMISSION NOTE: HAS PATIENT BEEN [...] PCP follow up order from attending via [employer]. DISCHARGE PLAN: TBD, anticipate home with no skilled needs but await ID recommendations SIGNATURE: Wanda Hawthorne RN PATIENT NAME: Matthew Huang DATE: May 12, 2025 (more content not included)... [facility] 05-11-2025 Telephone encounter Note 35 year-old female [...] arrival. Kendell Ring MD 05/11/2025 6:44 PM [facility] Work Phone: 05-11-2025 Miscellaneous Notes 35 [...] 05/11/2025 6:44 PM documented in this encounter [facility] 05-11-2025 History of Present illness Narrative [...] 13 months 05/16/2025 3:00 PM [facility] Whaley 45 min 05/23/2025 1:00 PM [facility] Whaley 45 min 05/29/2025 12:20 PM [facility] Tessa Dill RN 20 min 05/29/2025 12:40 PM [facility] Herberth Montana DO 20 min Video conference visit (Price.). Patient identity confirmed via name and date of . Potential risks and benefits discussed with patient/guardian, who verbalized consent for telehealth encounter. Patient location: home. Registered Nurse Visit 05/11/2025 10:00 AM Reason For Visit Health maintenance (care gap) screening, assessment, education, and referral. Interval History and Patient Concerns Matthew reports she notices no difference with the depakote. It feels like a sugar pill. Denies any side effects. Reports she is rapid cycling. On the days she is manic she is up at night and can't sleep. On the days she is depressed she sleeps all night. Client asked if valium could be an option for her anxiety. Reports intrusive thoughts are under control. Anxiety is high. Denies thoughts of self harm or harming others. 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 Reports Adri is upstairs working [...] self/others: Low 1. Bipolar disorder, rapid cycling ([facility]) (Primary) Care Planning Additional Plan: Patient education provided this visit: medication, symptoms, side effects, coping Routed encounter note to Dr. Montana Follow up as scheduled Call sooner if needed Reviewed upcoming appointments: Appointments for the next 13 months 05/16/2025 3:00 PM [facility] Whaley 45 min 05/23/2025 1:00 PM [facility] Whaley 45 min 05/29/2025 12:20 PM [facility] Tessa Dill RN 20 min 05/29/2025 12:40 PM [facility] Herberth Montana DO 20 min documented in this encounter [facility] Work Phone: 05-11-2025 Miscellaneous Notes documented in this encounter [facility] Work Phone: 05-11-2025 Miscellaneous Notes documented in this encounter [employer] Phone: 05-11-2025 History of Present illness Narrative Video conference visit (Price.vt). Patient identity confirmed via name and date of . Potential risks and benefits discussed with patient/guardian, who verbalized consent for telehealth encounter. Patient location: home. Registered Nurse Visit 05/11/2025 10:00 AM Reason For Visit Health maintenance (care gap) screening, assessment, education, and referral. Interval History and Patient Concerns Matthew reports she notices no difference with the depakote. It feels like a sugar pill. Denies any side effects. Reports she is rapid cycling. On the days she is manic she is up at night and can't sleep. On the days she is depressed she sleeps all night. Client asked if valium could be an option for her anxiety. Reports intrusive thoughts are under control. Anxiety is high. Denies thoughts of self harm or harming others. 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 Reports Adri is upstairs working [...] self/others: Low 1. Bipolar disorder, rapid cycling ([facility]) (Primary) Care Planning Additional Plan: Patient education provided this visit: medication, symptoms, side effects, coping Routed encounter note to Dr. Montana Follow up as scheduled Call sooner if needed Reviewed upcoming appointments: Appointments for the next 13 months 05/16/2025 3:00 PM [facility] Whaley 45 min 05/23/2025 1:00 PM [facility] Whaley 45 min 05/29/2025 12:20 PM [facility] Tessa Dill RN 20 min 05/29/2025 12:40 PM [facility] Herberth Montana DO 20 min documented in this encounter [email or web address] Work Phone: 05-08-2025 History of Present illness Narrative Reason for Visit: Individual Counseling Video conference visit (Price.). Patient identity confirmed via name and date of . Potential risks and benefits discussed with patient/guardian, who verbalized consent for telehealth encounter. Patient location: home. Problem: CL reports increase in rapid cycling and medicine isn't working. CL reports feeling really manic for days then depression will get really overwhelming. CL reports feeling OCD and intrusive thoughts are manageable. CL reports feeling very overwhelmed and recent loss of Aunt. CL stated children's father Pure chaos all day long CL informed of feeing good about children's Dad hiring a program trainer to help meal prep and goals to lose weight. F31.70 Bipolar disorder in full remission, most recent episode unspecified type ([facility]) (primary encounter diagnosis) Mental Status Exam: Appearance: appropriate Behavior: irritable, hyperactive Speech: loud Mood: nervous, anxious, angry Affect: labile Thought content: unremarkable Perception: unremarkable Insight: limited - CL recognizes stressors but is pre-contemplative about applying coping skills or making changes. Judgement: appropriate Intervention: The following goals were addressed today: GOAL: I know it will never go away but I want to get better coping skills to manage and GOAL: Identify and discuss unresolved life conflicts (see measurable component below): Next Care Plan Review Date: 07/19/2025 Provider addressed Matthew's concerns related to the presenting problem above through the following therapeutic interventions: Active and reflective listening, Enhancing coping skills, Facilitating exploration and naming of emotions, Motivational interviewing, and Symptom management, skill building. Acute risk for harm to self/others: Low C-SSRS Screen Response/Impression: Matthew demonstrated no change in session today as [...] having children has helped with motivation by forcing to get up and not lay around when feeling depressed. TH asked open ended questions about current [...] (2018). BASIS-24 results were not reviewed. Plan: Matthew's follow-up/homework: CL was recommended to make small changes in home like moving cat food to higher location and putting locks on tops of doors to prevent children from going into unattended rooms to help reduce feeling overwhelmed. Provider's follow-up/referrals/action items: N/A Next appointment with this provider: 05/16/25 documented in this encounter [employer] Phone: 05-02-2025 Nurse Note returned cleint call and left with provided number to call back and schedule follow up appt documented in this encounter [employer] Phone: 04-24-2025 History of Present illness Narrative [...] efficacy. Orders: RN NURSING PER 15 MIN [[id number]] hydrOXYzine HCL (ATARAX) 25 mg tablet; Take 1 Tablet by mouth 3 (three) times daily as needed for anxiety. escitalopram (LEXAPRO) 20 mg tablet; Take 1 Tablet by mouth once daily. Associated Problem(s): Bipolar disorder in full remission ([facility]) Add risperdal 0.5 mg po daily PRN [...] daily. Reason for visit: Psychiatric Med Management Matthew presents prior to their psychiatry provider visit [...] Intrusive thoughts of bad things happening are pretty much non existent. Current Outpatient Medications Medication Instructions acetaminophen (TYLENOL) [...] Blood pressure 118/76, pulse 99, height 5' 4 (1.626 m), weight 191 lb (86.6 kg), [...] full remission, most recent episode unspecified type ([facility]) Z51.81 Therapeutic drug monitoring Comment: Risk Assessment: Acute risk for harm to self/others: Low Plan Verified patient medications and allergies; updated patient medical history in medical record. Provided report to Dr. Montana regarding patient concerns and status. Follow up as scheduled Upcoming appointments: Appointments for the next 13 months 04/25/2025 12:00 PM [facility] Whaley 45 min Subjective In person Chief Complaint: Psychiatric Med Management HPI Matthew Huang is a 35 year old female [...] increase today. Starts her new job at [employer] on March 27. 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 Weight as of this encounter: [...] efficacy. Orders: RN NURSING PER 15 MIN [[id number]] hydrOXYzine HCL (ATARAX) 25 mg tablet; Take 1 Tablet by mouth 3 (three) times daily as needed for anxiety. escitalopram (LEXAPRO) 20 mg tablet; Take 1 Tablet by mouth once daily. Bipolar disorder in full remission, most recent episode unspecified type ([facility]) Add risperdal 0.5 mg po daily PRN [...] hours RN by calling main number for [email or web address]. Follow-up: No follow-ups on file. Upcoming Appointments: Appointments for the next 13 months 04/25/2025 12:00 PM [facility] Whaley 45 min 05/29/2025 12:20 PM [facility]NAGEMENT [facility] SA209 NURSE LUCI MONTANA 20 min 05/29/2025 12:40 PM [facility]NAG[facility] Herberth Montana DO 20 min documented in this encounter [email or web address] Work Phone: 04-20-2025 Telephone encounter Note Contacted patient, identified by Name and Birthday. Relayed message with verbal understanding. No further questions at this time. Patient stated that she would like the pills for 7 days. Verified pharmacy as [facility] [employer] [facility] 04-20-2025 Miscellaneous Notes Contacted patient, identified by Name and Birthday. Relayed message with verbal understanding. No further questions at this time. Patient stated that she would like the pills for [address] days[address] pharmacy as [facility] Left message for patient on voicemail. She [...] And verify pharmacy.Thanks documented in this encounter [facility] 04-20-2025 Telephone encounter Note Left message [...] when she calls back. And verify pharmacy.Thanks [facility] 04-19-2025 Instructions Tessa Guerrero APRN.PATIENT SERVICES REPRESENTATIVE - 04/19/2025 12:08 PM EDT 1. Dysuria - ICD9: 788.1, ICD10: R30.0 (primary diagnosis) acute - Send urine for culture - Patient education for prevention given - UA DIP, URINE (POC) All results will go to MyChart. We will notify you there if there [...] sugar levels and follow up with your teacher of family and consumer science/PCP, if they remain elevated - Follow up with your PCP and/or PROFESSOR OF FOREST PLANNING if you continue to experience symptoms, worsening of symptoms, or if they return shortly after treatment - Encouraged follow up with Urology ([phone]) if you continue to experience recurrent UTIs [...] - do not douche - recommend seeing PROFESSOR OF FOREST PLANNING for recurrent BV - no sexual activity until results have come back and you have completed any treatments and you are symptom-free documented in this encounter [facility] 04-19-2025 Note [facility] 04-19-2025 History of Present illness Narrative [facility] Srinivasan Huang is a 35 year old female. [...] ago. - Managed with medications prescribed by PROFESSOR OF FOREST PLANNING. - Symptoms of UTIs and BV often [...] was able to schedule an appointment with PROFESSOR OF FOREST PLANNING on April 26. Patient is allergic to [...] URINE (POC) [facility] We will notify you there if there [...] sugar levels and follow up with your teacher of family and consumer science/PCP, if they remain elevated - Follow up with your PCP and/or PROFESSOR OF FOREST PLANNING if you continue to experience symptoms, worsening of symptoms, or if they return shortly after treatment - Encouraged follow up with Urology ([phone]) if you continue to experience recurrent UTIs [...] or motrin for discomfort - recommend seeing PROFESSOR OF FOREST PLANNING for recurrent BV - no sexual activity until results have come back and you have completed any treatments and you are symptom-free Tessa Guerrero APRN.CNP History and Record Review External record(s) reviewed: [...] were advised: Analgesia PRN Addendum: Recording using Delectable software for draft documentation of the visit was discussed with the patient/authorized customer service representative; all questions welcomed and answered. Patient/authorized customer service representative agreed to proceed Tessa Guerrero APRN.CNP Procedures documented in this encounter [facility] 03-29-2025 Note [facility] 03-29-2025 Procedure note Images from the [...] migraine prophylaxis during : a case report. [facility] Med. 2014;179(6):e703-4. Longest reported follow-up period for [...] SpO2 95% BMI 31.83 kg/m Patient name: Matthew Huang : 1990 ALLERGIES Allergen Reactions Clindamycin [...] for migraine Informed Consent Consent Obtained: Written [place] Protocol A moment to CARE was completed [...] collected. Written Consent Obtained: Written LOT #: [id number] Expiration Date: Month: 10 Year: 2026 Injection Sites Left (Units) Left (Sites) Right (Units) Right (Sites) TOTAL (Units) Stock Hanger 5 1 5 1 10 Procerus Units: [...] Analgesic Diclofenac (Voltaren, Cataflam, Cambia) Hydrocodone/Acetaminophen (Vicodin, [place]) Anti-Anxiety Alprazolam (Xanax, Niravam) Diazepam (Valium) Anti-Convulsant Lamotrigine (Lamictal) Topiramate (Topamax, Trokendi XL, Qudexy) Anti-Depressant and Antipsychotic Quetiapine (Seroquel) Antiemetics Ondansetron Promethazine Anti-Migraine Rizatriptan (Maxalt) Sumatriptan (Imitrex, Sumavel) GEPANTS Rimegepant (Nurtec) Supplements CoQ10 Magnesium Riboflavin Other Medications Dexamethasone (Decadron) Methylprednisolone (Medrol) Prednisone Over the Counter Medications Acetaminophen (Tylenol) Ibuprofen (Advil, Motrin) Jaja Moss APRN.LOUIS T [facility] 03-29-2025 Procedure note Images from the [...] Leidy MF, Russell RS, Umang A, Deb MA, Michael L, Jose I, Eron H. outcomes [...] SpO2 95% BMI 31.83 kg/m Patient name: Matthew Huang : 1990 ALLERGIES Allergen Reactions Clindamycin [...] for migraine Informed Consent Consent Obtained: Written [place] Protocol A moment to CARE was completed [...] collected. Written Consent Obtained: Written LOT #: [id number] Expiration Date: Month: 10 Year: 2026 Injection Sites Left (Units) Left (Sites) Right (Units) Right (Sites) TOTAL (Units) Stock Hanger 5 1 5 1 10 Procerus Units: [...] Analgesic Diclofenac (Voltaren, Cataflam, Cambia) Hydrocodone/Acetaminophen (Vicodin, Herm[place]) Anti-Anxiety Alprazolam (Xanax, Niravam) Diazepam (Valium) Anti-Convulsant Lamotrigine (Lamictal) Topiramate (Topamax, Trokendi XL, Qudexy) Anti-Depressant and Antipsychotic Quetiapine (Seroquel) Antiemetics Ondansetron Promethazine Anti-Migraine Rizatriptan (Maxalt) Sumatriptan (Imitrex, Sumavel) GEPANTS Rimegepant (Nurtec) Supplements CoQ10 Magnesium Riboflavin Other Medications Dexamethasone (Decadron) Methylprednisolone (Medrol) Prednisone Over the Counter Medications Acetaminophen (Tylenol) Ibuprofen (Advil, Motrin) Jaja Moss APRN.PATIENT SERVICES REPRESENTATIVE documented in this encounter [facility] 03-29-2025 Instructions Jaja Moss APRN.LOUIS - 03/29/2025 2:16 PM EDT Images from the original note were not included. [facility] [place] Frequently Asked Questions about Botox Treatment for [...] Botox to understand your coverage and any fmy-yn-[id number] costs. Botox injections are scheduled every 12-13 [...] If you haven t heard from a wheel press operator within 1-2 weeks, please call our office at [phone] (select option 1 for Botox schedulers). Feel free to contact us with any other questions or concerns about Botox: Senior Mainframe Developer [phone] or Once my appointment is scheduled, how should [...] Botox to understand your coverage and any jgp-ur-[id number] costs. Do I need a water tanker driver? No; however, if it is the [...] , or . documented in this encounter [facility] 03-28-2025 Note [facility] 03-24-2025 History of Present illness Narrative Reason for Visit: Individual Counseling Video conference visit (Price.). Patient identity confirmed via name and date of . Potential risks and benefits discussed with patient/guardian, who verbalized consent for telehealth encounter. Patient location: home. 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 CL reports feeling anxious about starting new job May and working for two weeks from 8-5. CL reports limited use of alcohol since last appt. F41.1,F41.0 Generalized anxiety disorder with panic attacks (primary encounter diagnosis) Mental Status Exam: Within normal limits. Intervention: The following goals were addressed today: GOAL: I want better ccping skills when I have intrusive thoughts and reduce panic and GOAL: Identify and discuss unresolved life conflicts (see measurable component below): Next Care Plan Review Date: 07/19/2025 Provider addressed Matthew's concerns related to the presenting problem above through the following therapeutic interventions: Active and reflective listening, Assist in problem solving, Communication skills, and Symptom management, skill building. Acute risk for harm to self/others: Low C-SSRS Screen Response/Impression: Matthew demonstrated minimal improvement in session today as [...] Patel (2018). BASIS-24 results were reviewed. Plan: Matthew's follow-up/homework: cL will coordinate for any changes to schedule and connect to support system if needed. Provider's follow-up/referrals/action items: N/A Next appointment with this provider: 04/11/25 documented in this encounter [facility] Work Phone: 03-20-2025 Telephone encounter Note Reason for Call: Patient calling to report difficulty swallowing, and bright red color to neck/chest. Patient has a history [...] will call 911 for ambulance transport to [facility]. Reason for Disposition Difficulty swallowing, drooling or slurred speech Protocols used: [id number] [facility] 03-20-2025 Miscellaneous Notes Reason for Call: Patient calling to report difficulty swallowing, and bright red color to neck/chest. Patient has a history [...] will call 911 for ambulance transport to [facility]. Reason for Disposition Difficulty swallowing, drooling or slurred speech Protocols used: [id number] documented in this encounter [facility] 03-20-2025 History of Present illness Narrative [...] Associated Problem(s): Bipolar disorder in full remission ([facility]) Will increase risperdal to 3 mg for [...] mouth once daily Subjective Video conference visit (Price.). Patient identity confirmed via name and date of . Potential risks and benefits discussed with patient/guardian, who verbalized consent for telehealth encounter. Patient location: home. Chief Complaint: Psychiatric Med Management HPI 02/27/25: Matthew Huang is a 35 year old female [...] increase today. Starts her new job at [employer] on March 27. 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 Weight as of 06/13/24: 158 [...] full remission, most recent episode unspecified type ([facility]) Will increase risperdal to 3 mg for [...] hours RN by calling main number for [email or web address]. Reminded pt she is overdue for annual in-person visit. She agrees to come to the office for her next appt and will plan to obtain metabolic screening labs and UDS at that time. Follow-up: No follow-ups on file. Upcoming Appointments: Appointments for the next 13 months 03/24/2025 11:00 AM COUNSELING STANDARD [facility] VASQUEZ Whaley 45 min 04/24/2025 9:20 AM MEDICATION MANAGEMENT [facility] SA209 BW NURSE LUCI MONTANA 20 min 04/24/2025 9:40 AM MEDICATION MANAGEMENT [facility] Herberth Montana DO 20 min Reason for visit: Psychiatric Med Management Matthew presents prior to their psychiatry provider visit to evaluate medication effectiveness, update medical history, and review overall treatment status. Video conference visit (Price.vt). Patient identity confirmed via name and date [...] full remission, most recent episode unspecified type ([facility]) F42.2 Mixed obsessional thoughts and acts Comment: Risk Assessment: Acute risk for harm to self/others: Low Plan Verified patient medications and allergies; updated patient medical history in medical record. Provided report to Dr. Montana regarding patient concerns and status. Follow up as scheduled Upcoming appointments: Appointments for the next 13 months 03/24/2025 11:00 AM COUNSELING STANDARD [facility] VASQUEZ Whaley 45 min 04/24/2025 9:20 AM MEDICATION MANAGEMENT [facility] SA209 SUDHIR NURSE LUCI MONTANA 20 min 04/24/2025 9:40 AM MEDICATION MANAGEMENT [facility] Herberth Montana DO 20 min documented in this encounter [facility] Work Phone: 03-13-2025 History of Present illness Narrative Client missed scheduled follow up with Dr. Montana. Client sent My Chart that she was having video issues. Asked for a phone call. Called x2 but client did not answer and vm was full. Client rescheduled for 03/20/25. My Chart message sent. documented in this encounter [facility] Work Phone: 03-13-2025 Note [facility] 03-13-2025 History of Present illness Narrative Associated Problem(s): Bipolar disorder in full remission ([facility]) Patient reports mood is stable. Continue current [...] mouth once daily Subjective Video conference visit (Price.). Patient identity confirmed via name and date of . Potential risks and benefits discussed with patient/guardian, who verbalized consent for telehealth encounter. Patient location: home. Chief Complaint: Psychiatric Med Management HPI 02/27/25: Matthew María Huang is a 35 year old [...] it didn't help. 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 01/30/25: Copied forward from [facility] (Dec admission): ALLERGIES Allergen Reactions Clindamycin [...] % Change in weight NA Height 5' 2 (157.5 cm) Estimated body mass index is 28.9 kg/m as calculated from the following: Height as of 06/13/24: 5' 2 (1.575 m). Weight as of 06/13/24: 158 [...] full remission, most recent episode unspecified type ([facility]) Patient reports mood is stable. Continue current [...] hours RN by calling main number for [email or web address]. Follow-up: No follow-ups on file. Upcoming Appointments: Appointments for the next 13 months 03/13/2025 3:00 PM MEDICATION MANAGEMENT [facility] Tessa Dill RN 20 min 03/13/2025 3:20 PM MEDICATION MANAGEMENT [facility] Herberth Montana DO 20 min 03/24/2025 11:00 AM COUNSELING STANDARD [facility] VASQUEZ Whaley 45 min Reason for visit: Psychiatric Med Management Matthew presents prior to their psychiatry provider visit [...] full remission, most recent episode unspecified type ([facility]) (primary encounter diagnosis) F41.1,F41.0 Generalized anxiety disorder with panic attacks Comment: Risk Assessment: Acute risk for harm to self/others: Low Plan Verified patient medications and allergies; updated patient medical history in medical record. Provided report to Dr. Montana regarding patient concerns and status. Follow up as scheduled Upcoming appointments: Appointments for the next 13 months 02/27/2025 11:00 AM MEDICATION MANAGEMENT [facility] Herberth Montana, DO 20 min 03/02/2025 12:00 PM COUNSELING STANDARD [facility] Angela AllegraVASQUEZ gregg 45 min 03/03/2025 9:00 AM CASE MANAGEMENT VISIT [facility] Sivakumar Diaz [facility] [[email or web address] 90 min 03/06/2025 1:20 PM MEDICATION MANAGEMENT [facility] Tessa Dill RN 20 min 03/06/2025 1:40 PM MEDICATION MANAGEMENT [facility] Herberth Montana, DO 20 min documented in this encounter [facility] Work Phone: 03-13-2025 Note [facility] 03-13-2025 History of Present illness Narrative Reason for Visit: Individual Counseling Video conference visit (Price.). Patient identity confirmed via name and date [...] house and getting drunk with friend at [employer] and having me time CL reports decreased anxiety since moving and feeling good.CL stated feeling very peaceful and at ease since moving. F42.2 Mixed obsessional thoughts and acts (primary encounter diagnosis) Mental Status Exam: Within normal limits. Intervention: The following goals were addressed today: GOAL: I know it will never go away but I want to get better coping skills to manage Next Care Plan Review Date: 07/19/2025 Provider addressed Matthew's concerns related to the presenting problem above through the following therapeutic interventions: Active and reflective listening, Motivational interviewing, and Reality testing enhancement. Acute risk for harm to self/others: Low C-SSRS Screen Response/Impression: Matthew demonstrated minimal improvement in session today as evidenced by reports of feeling less stress and anxiety since moving. Overall impression of treatment demonstrates minimal improvement as evidenced by continuing to work towards goals of employment and connecting to resources for attendant children's institution and food assistance.TH explored risks if using alcohol with medications and recent multiple hospital visits for allergic reactions. CL reports once off for girls night. TH challenged client self reports of moving to [place] due to conflicting history of self reports of living there since starting services. CL stated had been living in [place] prior and has since moved to [place]. TH asked open ended questions to help [...] Patel (2018). BASIS-24 results were reviewed. Plan: Matthew's follow-up/homework: CL will work on getting kids rooms set up and getting resources. Provider's follow-up/referrals/action items: N/A Next appointment with this provider: 03/24/25 documented in this encounter [facility] Work Phone: 03-10-2025 Discharge summary [facility] 03-08-2025 Note HNO ID: [id number] Author: KATELYN SHIN LSW Service: Care Management Author Type: Shipbuilding Draftsperson Type: Care Mgt Progress Note Filed: 03/08/2025 14:07 Note Text: CARE MANAGEMENT PROGRESS NOTE SERVICE DATE: 03/08/2025 SERVICE TIME: 1402 LOS: 1 day Met with pt this am . Obtained permission to speak with Her significant other Adri and her Aunt Zeynep (who was pts care home mom) Yesterday, Nursing received call from SO; Adri who is concerned that pts multiple admissions is due to possible drug use or interaction. (Pts tox screen Neg besides benzos and pt does see psych and track worker) He is concerned about the care [...] children reside with Adri. When this social organization professor completed assessment pt did not admit to [...] children being taken away. Cps referral made [id number] SIGNATURE: BRITTANIE Rosenthal PATIENT NAME: Matthew Huang DATE: March 08, 2025 TIME: 1:22 PM [facility] 03-07-2025 Note HNO ID: [id number] Author: KATELYN SHIN LSW Service: Care Management Author Type: Shipbuilding Draftsperson Type: Care Mgt Initial Assessment Filed: 03/07/2025 15:50 Note Text: CARE MANAGEMENT: ASSESSMENT AND DISCHARGE PLAN SERVICE DATE: March 07, 2025 SERVICE TIME: 1502 PCP: No primary care provider on file. Primary Contact: Extended Emergency Contact Information Zeynep () [phone] Primary Emergency Contact: JoAdri Mobile Relation: Significant other Admission Status: Inpatient Insurance Provider: [employer] [employer] Discharge Planning requested by: Per Department Practice Potential Transition Plans Advance Directives Current Advance Directive: Health Care Power of Manager Sas In Chart: Yes Up To Date and Valid: Yes Current Living Arrangements and Support Lives with: Children Type of Residence: Private Residence (House) Support: Family members How do you manage to accomplish the following: Independent: Ambulation, Bathe/Shower, Dress, Meals/Meal Prep, Going to the bathroom, Medication Management, Transportation to appointments/community Current Services/Equipment Discharge Planning Patient Goal(s): [place] of Choice Explained: [place] of Choice Given: No Reason Not Given: [...] with SO. SIGNATURE: BRITTANIE Rosenthal PATIENT NAME: Matthew Huang DATE: March 07, 2025 TIME: 3:02 PM [facility] 03-07-2025 Progress note Formatting of t his note might be different from the original. Accepted transfer from [facility] to [facility]: Briefly, 35 years old female with prior Hx of anaphylaxis with recurrent angioedema (recent admission at [facility]) who presented to [place] ED for evaluation of an allergic reaction concerning for anaphylaxis after taking Keflex (Hx of allergy) at home by mistake per patient. She was seen earlier at [place] [facility] and received EpiPen and Pepcid. However, she left AMA after she was not given IV Benadryl. She then presented to [place] ED for evaluation of similar symptoms including rash, lip swelling and oropharyngeal discomfort. Patient was assessed by ED provider and had no concerns for airway compromise or hemodynamic instability. She was given EpiPen, antihistamines and steroids with some improvement. Given recent admission and concerns for allergic reaction, ED provider requested admission to [facility] for observation. Case was discussed with CDU and they deferred the transfer to hospital medicine service. Patient has been accepted to [facility] for observation and further management. Per ED provider, there is also a concern for secondary gain and falsifying symptoms as patient is making frequent requests for IV Benadryl. Please see hands of section for further signout. Shelly Roth MD [facility] Medicine [facility] Work Phone: 03-07-2025 Miscellaneous Notes Accepted transfer from [place] [facility] to [facility]: Briefly, 35 years old female with prior Hx of anaphylaxis with recurrent angioedema (recent admission at [facility]) who presented to [place] ED for evaluation of an allergic reaction concerning for anaphylaxis after taking Keflex (Hx of allergy) at home by mistake per patient. She was seen earlier at [place] [facility] and received EpiPen and Pepcid. However, she left AMA after she was not given IV Benadryl. She then presented to [place] ED for evaluation of similar symptoms including rash, lip swelling and oropharyngeal discomfort. Patient was assessed by ED provider and had no concerns for airway compromise or hemodynamic instability. She was given EpiPen, antihistamines and steroids with some improvement. Given recent admission and concerns for allergic reaction, ED provider requested admission to [facility] for observation. Case was discussed with CDU and they deferred the transfer to hospital medicine service. Patient has been accepted to [facility] for observation and further management. Per ED provider, there is also a concern for secondary gain and falsifying symptoms as patient is making frequent requests for IV Benadryl. Please see hands of section for further signout. Shelly Roth MD [facility] Medicine documented in this encounter [facility] 03-05-2025 Note [facility] 03-05-2025 Note [facility] 03-03-2025 History of Presen t illness Narrative Reason for visit: Case Management Problem: I need beds for my kids and to find a place to live Intervention: Spiritism, rehabilitation, and support of social skills, daily functioning, and self management skills and Crisis prevention and amelioration Comment: Manager Target spoke to Matthew on the phone since she is currently in the hospital. Manager Target provided active listening to her needs and issues. Manager Target offered feedback. C-SSRS The following goals were addressed today: GOAL: I will practice self-care daily to decrease and prevent anxiety. and Objective: Create and use a daily ritual that interrupts the current pattern of compulsions. Next Care Plan Review Date: 07/19/2025 Response: Data gathered to aid in assessment and treatment planning Comment: Matthew mentioned that she needs beds for her kids since she is moving in with her aunt at this time, caption writer provided a resource. She also mentioned that [...] not reviewed. Electronically signed by Sivakumar Diaz [email or web address] at 03/03/2025 2:03 PM PDT documented in this encounter [facility] Work Phone: 03-03-2025 Note [facility] 03-02-2025 History of Presen t illness Narrative Associated Problem(s): Obsessive-compulsive disorder, unspecified Increase lexapro tp 15 mg po daily and consider increasing to 20 mg if tolerated. Continue risperdal for bipolar mood stability as well as intrusive thoughts. Associated Problem(s): Bipolar disorder in full remission ([facility]) Continue risperdal, lamotrigine for mood stability/bipolar disorder. [...] to pharmacy today. Subjective Video conference visit (Price.). Patient identity confirmed via name and date of . Potential risks and benefits discussed with patient/guardian, who verbalized consent for telehealth encounter. Patient location: home. Chief Complaint: Psychiatric Med Management HPI Matthew Huang is a 35 year old female [...] an appt to follow up with an tool specialist. She thought it was her cat [...] incidental finding on ultrasound of possible intraductal papilloma). She had a lump and they initially [...] a couple months. 01/30/25: Copied forward from [facility] (Dec admission): ALLERGIES Allergen Reactions Clindamycin [...] % Change in weight NA Height 5' 2 (157.5 cm) Estimated body mass index is 28.9 kg/m as calculated from the following: Height as of 06/13/24: 5' 2 (1.575 m). Weight as of 06/13/24: 158 [...] hours RN by calling main number for [email or web address]. 1. Bipolar disorder in full remission, most recent episode unspecified type ([facility]) (Primary) Overview: Mood has been sable on [...] months 03/03/2025 9:00 AM CASE MANAGEMENT VISIT [facility] VIJAY Funk/[place] 90 min 03/06/2025 1:20 PM MEDICATION MANAGEMENT [facility] Tessa Dill RN 20 min 03/06/2025 1:40 PM MEDICATION MANAGEMENT [facility] Herberth Montana DO 20 min 03/13/2025 8:30 AM COUNSELING STANDARD [facility] VASQUEZ Whaley 45 min Reason for visit: Psychiatric Med Management Matthew presents prior to their psychiatry provider visit to evaluate medication effectiveness, update medical history, and review overall treatment status. Video conference visit (Price.). Patient identity confirmed via name and date [...] to her aunt's house soon. Mood is good. No depression symptoms. No abigail. Reports her [...] content: unremarkable Perception: unremarkable Additional objective data: [facility]-24 Clinical Severity - Most Recent Administration Date [...] full remission, most recent episode unspecified type ([facility]) (primary encounter diagnosis) Comment: Risk Assessment: Acute risk for harm to self/others: Low Plan Verified patient medications and allergies; updated patient medical history in medical record. Provided report to Dr. Montana regarding patient concerns and status. Follow up as scheduled Upcoming appointments: Appointments for the next 13 months 02/20/2025 2:20 PM MEDICATION MANAGEMENT [facility] Herberth Montana DO 40 min 03/02/2025 12:00 PM COUNSELING STANDARD [facility] VASQUEZ Whaley 45 min 03/03/2025 9:00 AM CASE MANAGEMENT VISIT [facility] Sivakumar Diaz [facility] [[email or web address] 90 min 03/06/2025 1:20 PM MEDICATION MANAGEMENT [facility] Tessa Dill RN 20 min 03/06/2025 1:40 PM MEDICATION MANAGEMENT [facility] Herberth Montana DO 20 min documented in this encounter [email or web address] Work Phone: 03-02-2025 History of Presen t illness Narrative Reason for Visit: Individual Counseling Video conference visit (Price.vt). Patient identity confirmed via name and date of . Potential risks and benefits discussed with patient/guardian, who verbalized consent for telehealth encounter. Patient location: other: CL is currently admitted at [facility]. Problem: CL stated being currently admitted at [facility] to another breast infection and allergic reaction to medicine. CL expressed having increase in panic attacks due to Aunt calling and stated children's father was being mean and yelling and reflecting on recent events. CL informed of taking job offer at [employer] with plans to start 03/27/25. CL stated needing beds for the kids and wanting to move to aunt's house upon discharge from hospital. F43.10 Post traumatic stress disorder (primary encounter diagnosis) Mental Status Exam: Within normal limits. Intervention: The following goals were addressed today: GOAL: I know it will never go away but I want to get better coping skills to manage and GOAL: I will identify and balance thoughts that trigger my anxiety (see measurable component below): Next Care Plan Review Date: 07/19/2025 Provider addressed Matthew's concerns related to the presenting problem above through the following therapeutic interventions: Assist in problem solving and Empathetic validation and support. Acute risk for harm to self/others: Low C-SSRS Screen Response/Impression: Matthew demonstrated deterioration in session today as evidenced by having increase in panic attacks. Overall impression of treatment demonstrates no change as evidenced by being readmitted to hospital and no change in family dynamics.TH validated CL feelings and offered support. TH offered insight about resources and coordinated with CL case coordinator. BASIS-24 Clinical Severity - Most Recent Administration [...] (2018). BASIS-24 results were not reviewed. Plan: Matthew's follow-up/homework: CL will create positive mantra Provider's follow-up/referrals/action items: N/A Next appointment with this provider: 03/13/25 documented in this encounter [facility] Work Phone: 03-02-2025 Note [facility] 03-01-2025 Note [facility] 03-01-2025 Note [facility] 03-01-2025 Note [facility] 02-28-2025 Note [facility] 02-28-2025 Note [facility] 02-28-2025 Note [facility] 02-20-2025 History of Presen t illness Narrative Reason for Visit: Individual Counseling Video conference visit (Price.). Patient identity confirmed via name and date [...] following goals were addressed today: GOAL: I know it will never go away but I want to get better coping skills to manage and GOAL: I will identify and balance thoughts that trigger my anxiety (see measurable component below): Next Care Plan Review Date: 07/19/2025 Provider addressed Matthew's concerns related to the presenting problem above through the following therapeutic interventions: Active and reflective listening, Empathetic validation and support, Enhancing coping skills, and Reframing and positive focus. Acute risk for harm to self/others: Low C-SSRS Screen Response/Impression: Matthew demonstrated minimal improvement in session today as [...] (2018). BASIS-24 results were not reviewed. Plan: Matthew's follow-up/homework: CL will create postive mantra to use when feeling anxious to help ground. Provider's follow-up/referrals/action items: N/A Next appointment with this provider: 03/02/2025 documented in this encounter [facility] Work Phone: 02-15-2025 Telephone encounter Note Attempted to call patient to offer appt today. Unable to leave a voice message. Had told patient yesterday to come today at 1030 prior to her going to talking to Dr Grimes and going to Ed. Will keep trying to reach patient. Danica Lou RN February 15, 2025 9:22 AM [facility] Work Phone: 02-15-2025 Miscellaneous Notes Attempted to call patient to offer appt today. Unable to leave a voice message. Had told patient yesterday to come today at 1030 prior to her going to talking to Dr Grimes and going to Ed. Will keep trying to reach patient. Danica Lou RN February 15, 2025 9:22 AM documented in this encounter [facility] 02-14-2025 Note [facility] 02-14-2025 History of Presen t illness Narrative Radiology Service Progress Note PATIENT NAME: Matthew Huang DATE OF SERVICE: February 14, 2025 [...] PATIENT PRESENTS WITH AN IMPLANTABLE OR ATTACHED TECHNICAL TRAINING MANAGER: N/A RADIOLOGY DEPARTMENT: Ultrasound PERIPHERAL IV DATA: Not applicable SIGNED BY: Kathy Perdomo RDMS, RVT February 14, 2025 9:17 PM documented in this encounter [facility] 02-14-2025 Telephone encounter Note Spoke to [...] Lou RN February 14, 2025 4:59 PM [facility] Work Phone: 02-14-2025 Miscellaneous Notes Spoke [...] to touch. Patient can be reached at [phone]. Patient also advised to go to ER. Thanks documented in this encounter [facility] 02-14-2025 Telephone encounter Note Patient called stating that in December had infection in left breast but today she is experiencing dark blood from right breast, no redness, no pain but warm to touch. Patient can be reached at [phone]. Patient also advised to go to ER. Thanks [facility] 02-13-2025 History of Presen t illness Narrative Reason for Visit: Individual Counseling Video conference visit (). Patient identity confirmed via name and date of . Potential risks and benefits discussed with patient/guardian, who verbalized consent for telehealth encounter. Patient location: home. Problem: CL stated, Huan and I came to a conclusion that I would move to my Aunt's and come back on the weekends with the kids. CL reports no changes in verbal comments from children's father and feeling good about having house to self and with kids all week due to kids father being out of town all week. CL expressed feeing disappointed about wait time for housing. CL stated switching majors in school and has goals to get OIL LEASE BUYER. F42.2 Mixed obsessional thoughts and acts (primary encounter diagnosis) Mental Status Exam: Within normal limits. Intervention: The following goals were addressed today: GOAL: I will identify and balance thoughts that trigger my anxiety (see measurable component below): and GOAL: Identify and discuss unresolved life conflicts (see measurable component below): Next Care Plan Review Date: 07/19/2025 Provider addressed Matthew's concerns related to the presenting problem above through the following therapeutic interventions: Assist in problem solving, Empathetic validation and support, Empowerment and choice, and Enhancing coping skills. Acute risk for harm to self/others: Low C-SSRS Screen Response/Impression: Matthew demonstrated minimal improvement in session today as [...] Patel (2018). BASIS-24 results were reviewed. Plan: Matthew's follow-up/homework: HOLGER will have discussion with kids father about boundaries and co-parenting upon return. Provider's follow-up/referrals/action items: N/A Next appointment with this provider: 02/20/2025 documented in this encounter [email or web address] Work Phone: 02-13-2025 History of Presen t illness Narrative Sent client docusign JATINDER for [facility] documented in this encounter [email or web address] Work Phone: 02-11-2025 History of Presen t illness Narrative Reason for visit: Case Management Problem: Housing resources Intervention: Crisis prevention and amelioration Comment: Manager Target called Matthew to help with answering questions on housing issues. Manager Target provided active listening to her needs. C-SSRS The following goals were addressed today: GOAL: I will identify and balance thoughts that trigger my anxiety (see measurable component below): and GOAL: I will practice self-care daily to decrease and prevent anxiety. Next Care Plan Review Date: 07/19/2025 Response: Data gathered to aid in assessment and treatment planning Comment: Matthew spoke about she needs help with housing anywhere. Manager Target informed her of the resources in [facility] and will look into [place] and [facility] as well. She mentioned her status of her life right now and the need for this. She also mentioned that the counselor or the psychiatrist needs to write a referral letter for [facility] for housing. Plan Manager Target will inform counselor and doctor of the [...] not reviewed. Electronically signed by Sivakumar Diaz [facility] [[email or web address] at 02/10/2025 10:02 PM PDT documented in this encounter [facility] Work Phone: 02-07-2025 History of Presen t illness Narrative Reason for Visit: Individual Counseling Video conference visit (Price.). Patient identity confirmed via name and date [...] Care Plan Review Date: 07/19/2025 Provider addressed Matthew's concerns related to the presenting problem above through the following therapeutic interventions: Active and reflective listening, Assist in problem solving, and Empowerment and choice. Acute risk for harm to self/others: Low C-SSRS Screen Response/Impression: Matthew demonstrated deterioration in session today as evidenced by negative self talk and self blame. Overall impression of treatment demonstrates deterioration as evidenced by increase in stressors within home and reduced confidence. TH validated CL feelings and offered support. TH educated client about what [place] considers mental and psychological abuse and domestic [...] (2018). BASIS-24 results were not reviewed. Plan: Matthew's follow-up/homework: CL will follow up with provided resources Provider's follow-up/referrals/action items: N/A Next appointment with this provider: 02/13/2025 documented in this encounter [facility] Work Phone: 02-01-2025 History of Presen t illness Narrative NEW BREAST- NO CANCER DIAGNOSED SERVICE DATE: 02/01/2025 REASON for TODAY'S VISIT: Patient presents with: New Patient HISTORY of PRESENT ILLNESS: Matthew Huang is a 35 year old female with a history significant for Bipolar I, endometriosis, and migraines, [facility] breast ca (PGM breast ca, Pcousin ovarian ca), who presents for evaluation of the left breast lump and recent infection. Ms. Huang presented to [facility] ED on 12/31/24 with a two day history of left breast redness, pain, and swelling with seropurulent discharge from piercing site and reported temperature off 100.3F. She had her nipples pierced 6 months ago. She was started on a 5 day course of Bactrim DS for left breast cellulitis and advised to remove nipple piercings. Left breast POC US (12/31/24, [facility]): Multiloculated possible fluid collection at 9:00 2 cmFN. Associated 0.9 x 0.6 x 1.5 cm indeterminate hypoechoic lesion which may represent obstructing intraductal lesion such as papilloma. Recommendation for further evaluation with dedicated breast imaging. Additional chest CT 12/31/24 without evidence of discernable fluid collection. Patient returned to [facility] ED on 01/01 for fever of [...] normal PMH - PAST MEDICAL HISTORY OF vascular [...] 30's Stroke Paternal Grandmother Cancer Paternal Grandmother Breast [...] Drug use: No Comment: Pt denies Lives: [place] Never smoked No other drugs ALLERGIES: ALLERGIES [...] No history of dysuria, frequency or incontinence PROFESSOR OF FOREST PLANNING: Negative for abnormal vaginal bleeding, abnormal vaginal [...] skin changes, retraction, pain or nipple discharge. Program Trainer present for exam Participation of a fellow, resident, medical student, or advanced practice provider student in performing the sensitive examination was discussed with the patient or authorized customer service representative. The patient or authorized customer service representative has agreed to proceed with the [...] the following is a link to the [facility] care path [email or web address]. Additionally, a referral to the [facility] is also appropriate. Interpreting Radiologist: James Daniel M.D. Resident/Fellow: Ken Sandoval D.O. Electronically signed on: 02/01/2025 PATHOLOGY: NA ASSESSMENT: (N61.0) Cellulitis of breast (primary encounter diagnosis) Matthew Huang is a 35 year old female [...] which included preparing to see the patient, [id number] patient care, completing clinical documentation, performing a medically appropriate examination, counseling and educating the patient/family/caregiver, ordering medications, tests, or procedures, communicating results to the patient/family/caregiver, and care coordination (not separately reported). Everett Grimes MD documented in this encounter [facility] 02-01-2025 Note [facility] 02-01-2025 History of Presen t illness Narrative Radiology Service Progress Note PATIENT NAME: Matthew Huang DATE OF SERVICE: February 01, 2025 [...] PATIENT PRESENTS WITH AN IMPLANTABLE OR ATTACHED TECHNICAL TRAINING MANAGER: No RADIOLOGY DEPARTMENT: Mammography PERIPHERAL IV DATA: Not applicable SIGNED BY: Akila SethiKanmu Mary Grace February 01, 2025 11:02 AM documented in this encounter [facility] 02-01-2025 Note [facility] 01-30-2025 History of Presen t illness Narrative [...] trial of Clonazepam. Subjective Video conference visit ([email or web address].vt). Patient identity confirmed via name and date of . Potential risks and benefits discussed with patient/guardian, who verbalized consent for telehealth encounter. Patient location: home. Chief Complaint: Psychiatric Med Management HPI 01/30/25: Matthew Huang is a 35 year old female [...] an appt to follow up with an tool specialist. She thought it was her cat [...] incidental finding on ultrasound of possible intraductal papilloma). She had a lump and they initially [...] a couple months. 01/30/25: Copied forward from [facility] (Dec admission): ALLERGIES Allergen Reactions Clindamycin [...] by mouth acetaminophen (TYLENOL) 500 mg tablet [email or web address] TEST STRIPS strips No facility-administered medications prior to visit. Objective 06/13/2024 1:59 PM BP 106/78 BP Site Left Arm BP Position Sitting Pulse 85 Weight 158 lb (71.7 kg) % Change in weight NA Height 5' 2 (157.5 cm) Estimated body mass index is 28.9 kg/m as calculated from the following: Height as of 06/13/24: 5' 2 (1.575 m). Weight as of 06/13/24: 158 [...] hours RN by calling main number for [email or web address]. 1. Bipolar disorder in full remission, most recent episode unspecified type ([facility]) (Primary) Overview: Stable on current medication regimen [...] 13 months 02/13/2025 11:00 AM COUNSELING STANDARD [facility] VASQUEZ Whaley 45 min 02/20/2025 2:00 PM MEDICATION MANAGEMENT [facility] JEAN NURSE RUBÉN 20 min 02/20/2025 2:20 PM MEDICATION MANAGEMENT [facility] Herberth Montana DO 40 min 02/21/2025 11:00 AM COUNSELING STANDARD [facility] VASQUEZ Whaley 45 min 03/03/2025 9:00 AM CASE MANAGEMENT VISIT [facility] Sivakumar Diaz [facility] [email or web address] 90 min 03/06/2025 1:20 PM MEDICATION MANAGEMENT [facility] JEAN NURSE RUBÉN 20 min 03/06/2025 1:40 PM MEDICATION MANAGEMENT [facility] Herberth Montana DO 20 min Reason for visit: Psychiatric Med Management Matthew presents prior to their psychiatry provider visit to evaluate medication effectiveness, update medical history, and review overall treatment status. Video conference visit (Price.vt). Patient identity confirmed via name and date [...] full remission, most recent episode unspecified type ([facility]) (primary encounter diagnosis) Comment: Risk Assessment: Acute risk for harm to self/others: Low Plan Verified patient medications and allergies; updated patient medical history in medical record. Provided report to Dr. Montana regarding patient concerns and status. Follow up as scheduled. Upcoming appointments: Appointments for the next 13 months 02/01/2025 9:00 AM CASE MANAGEMENT VISIT [facility] Sivakumar Diaz [facility] [[email or web address] 60 min 02/02/2025 10:00 AM COUNSELING STANDARD [facility] Angela AllegraVASQUEZ gregg 45 min documented in this encounter [facility] Work Phone: 01-26-2025 History of Presen t illness Narrative Manager [employer] spoke with Matthew to access needs for CM. She needs housing, has no income at this time, 2 children boy and girl, ages 2 & 3. documented in this encounter [employer] Phone: 01-22-2025 Telephone encounter Note Reason for Call: Blood & Pus coming out of nipple Outcome: Advised to See PCP in 3 Days. Patient verbalized understanding and is agreeable to the plan. Reviewed Express Care/Urgent Care Options. Attempted Transfer to [facility] at the appointment center for scheduling. Call disconnected in the process. [facility] will try to call back Reason for Disposition Breast lump Answer Assessment - Initial Assessment Questions 1. SYMPTOM: nipple discharge, pain, 2. LOCATION: - Left nipple 3. ONSET: This morning 4. PRIOR HISTORY: - Just in the hospital 1 week ago for the same problem - Lump in the breast was identified while in the hospital - Mammogram is scheduled with [facility] on 02/01/25 5. CAUSE: - I'm not sure, I'm not sure if it's from the lump or if it's infection - Last time the breast was hot to the touch and red, but this time it is not either 6. OTHER SYMPTOMS: - breast pain 7. -: - Denies - Has an IUD Protocols used: Breast Vgtygjsk-SSITR-CE [facility] 01-22-2025 Miscellaneous Notes Reason for Call: Blood & Pus coming out of nipple Outcome: Advised to See PCP in 3 Days. Patient verbalized understanding and is agreeable to the plan. Reviewed Express Care/Urgent Care Options. Attempted Transfer to [facility] at the appointment center for scheduling. Call disconnected in the process. [facility] will try to call back Reason for Disposition Breast lump Answer Assessment - Initial Assessment Questions 1. SYMPTOM: nipple discharge, pain, 2. LOCATION: - Left nipple 3. ONSET: This morning 4. PRIOR HISTORY: - Just in the hospital 1 week ago for the same problem - Lump in the breast was identified while in the hospital - Mammogram is scheduled with [facility] on 02/01/25 5. CAUSE: - I'm not sure, I'm not sure if it's from the lump or if it's infection - Last time the breast was hot to the touch and red, but this time it is not either 6. OTHER SYMPTOMS: - breast pain 7. -: - Denies - Has an IUD Protocols used: Breast Zprcgbeq-EGFZL-SU documented in this encounter [facility] 01-17-2025 History of Presen t illness Narrative Reason for Visit: Individual Counseling Video conference visit (Price.). Patient identity confirmed via name and date of . Potential risks and benefits discussed with patient/guardian, who verbalized consent for telehealth encounter. Patient location: home. Problem: CL reports having high anxiety about lump in breast. CL stated sleep has been affected and waking up with panic attacks and feeling exhausted all the time with horrible anxiety. CL expressed having difficult time managing parental [...] to decrease and prevent anxiety. and GOAL: I want better ccping skills when I have intrusive thoughts and reduce panic Next Care Plan Review Date: 07/19/2025 Provider addressed Matthew's concerns related to the presenting problem above through the following therapeutic interventions: Empathetic validation and support, Enhancing coping skills, and Symptom management, skill building. Acute risk for harm to self/others: Low C-SSRS Screen Response/Impression: Matthew demonstrated deterioration in session today as evidenced [...] (2018). BASIS-24 results were not reviewed. Plan: Matthew's follow-up/homework: CL will reach out to insurance to discuss options to attend upcoming appt. Provider's follow-up/referrals/action items: N/A Next appointment with this provider: 01/23/25 documented in this encounter [facility] Work Phone: 01-15-2025 Note [facility] 01-15-2025 History of Presen t illness Narrative Received page: FW: [phone] armando harris [birth year], pt. of dr. nelson. pt. was hospitalized for an infection in breast. pt. has since been released from clinic but still vomiting. pt. would like a prescription for anti nausea medication. pls advise. Tem Spoke with patient, states she is unable [...] PGY-4 Infectious Disease documented in this encounter [facility] 01-13-2025 Note [facility] 01-12-2025 Note [facility] 01-12-2025 History of Presen t illness Narrative Reason for Visit: Individual Counseling Video conference visit (Price.). Patient identity confirmed via name and date of . Potential risks and benefits discussed with patient/guardian, who verbalized consent for telehealth encounter. Patient location: other: CL was at [facility]. Problem: CL stated having to come [...] Care Plan Review Date: 07/19/2025 Provider addressed Matthew's concerns related to the presenting problem above through the following therapeutic interventions: Assist in problem solving and Empathetic validation and support. Acute risk for harm to self/others: Low C-SSRS Screen Response/Impression: Matthew demonstrated minimal improvement in session today as [...] TH asked client to reframe thoughts of not feeling smart and highlighted strengths. BASIS-24 Clinical Severity - [...] Patel (2018). BASIS-24 results were reviewed. Plan: Matthew's follow-up/homework: Cl will use compassionate thinking and positve self talk Provider's follow-up/referrals/action items: N/A 01/17/25 Next appointment with this provider: 01/17/25 documented in this encounter [facility] Work Phone: 01-12-2025 Note [facility] 01-11-2025 Note [facility] 01-11-2025 Note [facility] 01-11-2025 Note [facility] 01-10-2025 Note [facility] 01-10-2025 Note [facility] 01-09-2025 Telephone encounter Note Call back to patient to give give alternate options of Express Care online visit, go to Express or Urgent care or return to the Emergency Room, patient verbalized understanding. [facility] 01-09-2025 Miscellaneous Notes Call back to [...] 4. PRIOR HISTORY: Patient was seen at [facility] ED on 01/01/25 for breast infection due to nipple ring 5. CAUSE: Breast infection 6. OTHER SYMPTOMS: Redness and warm 7. -: Not Pain? Location of pain? Left breast Description of pain? N/A Duration of pain? 10 days and taking benadryl due to having a rash Pain relief methods/effectiveness? Not helping Protocols used: Breast Tottxble-GWIMM-GB documented in this encounter [facility] 01-09-2025 Telephone encounter Note Reason for [...] 4. PRIOR HISTORY: Patient was seen at [facility] ED on 01/01/25 for breast infection due to nipple ring 5. CAUSE: Breast infection 6. OTHER SYMPTOMS: Redness and warm 7. -: Not Pain? Location of pain? Left breast Description of pain? N/A Duration of pain? 10 days and taking benadryl due to having a rash Pain relief methods/effectiveness? Not helping Protocols used: Breast Evegqrvq-LVGOC-LE [facility] 01-08-2025 Telephone encounter Note Reason for [...] drug Protocols used: Rash - Widespread On Lrlki-MAZGH-IA [facility] 01-08-2025 Miscellaneous Notes Reason for Call: [...] drug Protocols used: Rash - Widespread On Lgbmh-HQFPO-XM documented in this encounter [facility] 2025 Note [facility] 2025 Note [facility] 2025 Note HNO ID: [id number] Author: YEN OJEDA RN Service: Nursing Author Type: Registered Nurse Type: Progress Notes Filed: 2025 06:07 Note Text: Patient refused am vitals [facility] 01-06-2025 History of Presen t illness Narrative Reason for Visit: Individual Counseling Telephone visit. Patient identity confirmed via name and date of . Potential risks and benefits discussed with patient/guardian, who verbalized consent for telehealth encounter. Reason for Telephone: Other: TH returned CL call. Patient location: other: CL was at [facility] . Problem: Cl expressed having increased anxiety [...] following goals were addressed today: GOAL: I want better ccping skills when I have intrusive thoughts and reduce panic Next Care Plan Review Date: 07/19/2025 Provider addressed Matthew's concerns related to the presenting problem above through the following therapeutic interventions: Empathetic validation and support, Enhancing coping skills, and Symptom management, skill building. Acute risk for harm to self/others: Low C-SSRS Screen Response/Impression: Matthew demonstrated minimal improvement in session today as [...] (2018). BASIS-24 results were not reviewed. Plan: Matthew's follow-up/homework: CL will focus on being the present and reduce anxious thoughts by limiting what-if thinking. Provider's follow-up/referrals/action items: N/A Next appointment with this provider: 01/06/25 documented in this encounter [facility] Work Phone: 01-06-2025 Note [facility] 01-05-2025 Note [facility] 01-05-2025 Note [facility] 01-05-2025 Note [facility] 01-04-2025 Note [facility] 01-03-2025 Note [facility] 01-02-2025 Note [facility] 01-02-2025 Note [facility] 01-01-2025 Telephone encounter Note Patient calling regarding redness spreading, seen at [facility] ED yesterday, 12/31/24.. Conferenced to MIRNA Vazquez at [facility] at [phone] for assistance. Advised GO TO THE EMERGENCY ROOM OR CALL 911 IF: * You develop any new symptoms * Your condition worsens * You are concerned or anxious about your condition for any other reason. [facility] 01-01-2025 Miscellaneous Notes Patient calling regarding redness spreading, seen at [facility] ED yesterday, 12/31/24.. Conferenced to MIRNA Vazquez at [facility] at [phone] for assistance. Advised GO TO THE EMERGENCY ROOM OR CALL 911 IF: * You develop any new symptoms * Your condition worsens * You are concerned or anxious about your condition for any other reason. documented in this encounter [facility] 12-31-2024 Note [facility] 12-31-2024 Miscellaneous Notes Reason for Call: New [...] -: Denies- has IUD Protocols used: Breast Mcnojqeu-YCITK-XJ documented in this encounter [facility] 12-31-2024 Telephone encounter Note Reason for [...] -: Denies- has IUD Protocols used: Breast Taewhkgb-OMWEV-AD [facility] 12-31-2024 Telephone encounter Note Reason for [...] touch 7. -: Denies Protocols used: Breast Pcbbycmw-XPCSN-OM [facility] 12-31-2024 Miscellaneous Notes Reason for Call: [...] touch 7. -: Denies Protocols used: Breast Cwgueehn-KOGTU-MM documented in this encounter [facility] 12-30-2024 History of Presen t illness Narrative Telephone visit. Patient identity confirmed via name and date of . Potential risks and benefits discussed with patient/guardian, who verbalized consent for telehealth encounter. Reason for telephone: Patient unable to access technology/internet to facilitate video appointment Patient location: home Registered Nurse Visit 12/30/2024 12:00 PM Reason For Visit Health maintenance (care gap) screening, assessment, education, and referral. Interval History and Patient Concerns Client reached out to report she is drinking daily since August. She is drinking [employer] [place], approx 6-8 cans, after the kids are [...] full remission, most recent episode unspecified type ([facility]) (Primary) Overview: Stable on current medication regimen Care Planning Additional Plan: Patient education provided this visit: medication, symptoms, coping, resources (AA) Routed encounter note to Dr. Montana Follow up in 1 week with RN Increase counseling sessions Attend AA Remove alcohol from home and refrain from using Door Dash Reviewed upcoming appointments: Appointments for the next 13 months 01/06/2025 12:00 PM COUNSELING STANDARD [facility] VASQUEZ Whaley 45 min 01/30/2025 9:20 AM MEDICATION MANAGEMENT [facility] Tessa Dill RN 20 min 01/30/2025 9:40 AM MEDICATION MANAGEMENT [facility] Herberth Montana DO 20 min documented in this encounter [facility] Work Phone: 12-30-2024 History of Presen t illness Narrative Reason for Visit: Individual Counseling Video conference visit (Price.). Patient identity confirmed via name and date of . Potential risks and benefits discussed with patient/guardian, who verbalized consent for telehealth encounter. Patient location: home. Problem: CL reports no anxiety and depression. CL stated, I have had a problem with drinking lately and reports drinking 3-4 drinks every night and using as a coping skill when feeling stressed from the babies. CL stated, I don't get too drunk but just feel good. CL expressed wanting to stop but having difficult time due to limited supports. F41.1 Generalized anxiety disorder (primary encounter diagnosis) F31.70 Bipolar disorder in full remission, most recent episode unspecified type ([facility]) Mental Status Exam: Within normal limits. Intervention: The following goals were addressed today: GOAL: I will practice self-care daily to decrease and prevent anxiety. and GOAL: I want to take my medication everday and monitoring symptoms Next Care Plan Review Date: 07/19/2025 Provider addressed Matthew's concerns related to the presenting problem above [...] reach out after visit. C-SSRS Screen Response/Impression: Matthew demonstrated minimal improvement in session today as [...] and Symptom Identification Scale: Clinical Cut Scores. Yun eBASIS (2018). BASIS-24 results were reviewed with the patient. Plan: Matthew's follow-up/homework: CL was encouraged to talk to psych about medication interaction with increased drinking and risks of addiction. CL was provided resources to connect to if cravig and triggers are increased. Provider's follow-up/referrals/action items: N/A Next appointment with this provider: 01/06/25 documented in this encounter [facility] Work Phone: 12-20-2024 Note [facility] 12-20-2024 Procedure note Images from the [...] aware of drinking. Joined AA group on [employer]. Did very well with the last round [...] F) (Skin) LMP (LMP Unknown) Patient name: Matthew Huang : 1990 ALLERGIES Allergen Reactions Onion [...] for migraine Informed Consent Consent Obtained: Written [place] Protocol A moment to CARE was completed [...] applicable Written Consent Obtained: Written LOT #: [id number] Expiration Date: Month: 3 Year: 2026 Injection Sites Left (Units) Left (Sites) Right (Units) Right (Sites) TOTAL (Units) Stock Hanger 5 1 5 1 10 Procerus Units: [...] Analgesic Diclofenac (Voltaren, Cataflam, Cambia) Hydrocodone/Acetaminophen (Vicodin, [place]) Anti-Anxiety Alprazolam (Xanax, Niravam) Diazepam (Valium) Anti-Convulsant Lamotrigine (Lamictal) Topiramate (Topamax, Trokendi XL, Qudexy) Anti-Depressant and Antipsychotic Quetiapine (Seroquel) Antiemetics Ondansetron Promethazine Anti-Migraine Rizatriptan (Maxalt) Sumatriptan (Imitrex, Sumavel) GEPANTS Rimegepant (Nurtec) Supplements CoQ10 Magnesium Riboflavin Other Medications Dexamethasone (Decadron) Methylprednisolone (Medrol) Prednisone Over the Counter Medications Acetaminophen (Tylenol) Ibuprofen (Advil, Motrin) Jaja Moss APRN.PATIENT SERVICES REPRESENTATIVE [facility] 12-20-2024 Procedure note Images from the [...] aware of drinking. Joined AA group on [employer]. Did very well with the last round [...] F) (Skin) LMP (LMP Unknown) Patient name: Matthew Huang : 1990 ALLERGIES Allergen Reactions Onion [...] for migraine Informed Consent Consent Obtained: Written [place] Protocol A moment to CARE was completed [...] applicable Written Consent Obtained: Written LOT #: [id number] Expiration Date: Month: 3 Year: 2026 Injection Sites Left (Units) Left (Sites) Right (Units) Right (Sites) TOTAL (Units) Stock Hanger 5 1 5 1 10 Procerus Units: [...] Analgesic Diclofenac (Voltaren, Cataflam, Cambia) Hydrocodone/Acetaminophen (Vicodin, [place]) Anti-Anxiety Alprazolam (Xanax, Niravam) Diazepam (Valium) Anti-Convulsant Lamotrigine (Lamictal) Topiramate (Topamax, Trokendi XL, Qudexy) Anti-Depressant and Antipsychotic Quetiapine (Seroquel) Antiemetics Ondansetron Promethazine Anti-Migraine Rizatriptan (Maxalt) Sumatriptan (Imitrex, Sumavel) GEPANTS Rimegepant (Nurtec) Supplements CoQ10 Magnesium Riboflavin Other Medications Dexamethasone (Decadron) Methylprednisolone (Medrol) Prednisone Over the Counter Medications Acetaminophen (Tylenol) Ibuprofen (Advil, Motrin) Jaja Moss APRN.LOUIS documented in this encounter [facility] 12-20-2024 Instructions Jaja Moss APRN.CNP - [...] it does not, call our office at [phone] for further instructions. documented in this encounter [facility] 12-05-2024 History of Presen t illness Narrative Associated Problem(s): Obsessive-compulsive disorder, unspecified Continue lexapro and Risperdal at current doses Associated Problem(s): Generalized anxiety disorder Continue lexapro 10 mg daily and prn use of ativan for severe panic attacks. No refills on ativan today as pt has plenty to last until her next appt. Associated Problem(s): Bipolar disorder in full remission ([facility]) Continue Lamotrigine and Risperdal for mood stabilization Subjective Video conference visit (Price.). Patient identity confirmed via name and date of . Potential risks and benefits discussed with patient/guardian, who verbalized consent for telehealth encounter. Patient location: home. Chief Complaint: Psychiatric Med Management HPI 12/05/24: Matthew Huang is a 34 year old female [...] delusions noted. Pt denies any SI/HI. 10/03/24: Matthew Huang is a 34 year old female [...] some mood switching briefly after starting lexapro (felt hyper), with some noted depressive and hypomanic symptoms [...] % Change in weight NA Height 5' 2 (157.5 cm) Estimated body mass index is 28.9 kg/m as calculated from the following: Height as of 06/13/24: 5' 2 (1.575 m). Weight as of 06/13/24: 158 [...] hours RN by calling main number for [email or web address]. 1. Bipolar disorder in full remission, most recent episode unspecified type ([facility]) (Primary) Overview: Stable on current medication regimen [...] 13 months 12/30/2024 11:00 AM COUNSELING STANDARD [facility] VASQUEZ Whaley 45 min 01/30/2025 9:20 AM MEDICATION MANAGEMENT [facility] SA209 BW NURSE RUBÉN 20 min 01/30/2025 9:40 AM MEDICATION MANAGEMENT [facility] Herberth Montana DO 20 min Reason for visit: Psychiatric Med Management Matthew presents prior to their psychiatry provider visit to evaluate medication effectiveness, update medical history, and review overall treatment status. Video conference visit (Price.). Patient identity confirmed via name and date [...] occasional intrusive thoughts but reports they are way better with the lexapro. Denies any problems with [...] content: unremarkable Perception: unremarkable Additional objective data: -24 Clinical Severity - Most Recent Administration Date [...] in partial remission, most recent episode depressed ([facility]) (primary encounter diagnosis) Z29.9 Preventive measure Comment: Risk Assessment: Acute risk for harm to self/others: Low Plan Verified patient medications and allergies; updated patient medical history in medical record. Provided report to Dr. Montana regarding patient concerns and status. Follow up as scheduled Upcoming appointments: Appointments for the next 13 months 12/05/2024 9:00 AM MEDICATION MANAGEMENT [facility] Herberth Montana DO 20 min 12/16/2024 10:30 AM COUNSELING STANDARD [facility] VASQUE[facility] Whaley 45 min documented in this encounter [employer] Phone: 11-28-2024 History of Presen t illness Narrative Missed 11/28/24 follow up documented in this encounter [employer] Phone: 11-25-2024 History of Presen t illness Narrative Reason for Visit: Individual Counseling Video conference visit ([employer]). Patient identity confirmed via name and date of . Potential risks and benefits discussed with patient/guardian, who verbalized consent for telehealth encounter. Patient location: home. 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 CL stated having plans [...] Exam: Within normal limits. Intervention: Provider addressed Matthew's concerns related to the presenting problem above through the following therapeutic interventions: Active and reflective listening and Empowerment and choice. Acute risk for harm to self/others: Low C-SSRS Screen Response/Impression: Matthew demonstrated moderate improvement in session today as [...] social drink after Aunts judgements due to gnosticist beliefs BASIS-24 Clinical Severity - Most Recent [...] Patel (2018). BASIS-24 results were reviewed. Plan: Matthew's follow-up/homework: CL will watch injured foot for infection and reach out to doctor if need before upcoming appt following week. Provider's follow-up/referrals/action items: N/A Next appointment with this provider:12/16/24 documented in this encounter [facility] Work Phone: 11-11-2024 Telephone encounter Note Reason for Call: feels like heart is racing Outcome: Based on symptoms and assessment findings at this time, Patient advised to go the Emergency Room now. Patient does not prefer the ER. Patient plans to go to [facility]. Patient encouraged to call back [...] 76 Protocols used: Heart Rate and Heartbeat [id number] [facility] 11-11-2024 Miscellaneous Notes Reason for Call: feels like heart is racing Outcome: Based on symptoms and assessment findings at this time, Patient advised to go the Emergency Room now. Patient does not prefer the ER. Patient plans to go to [facility]. Patient encouraged to call back [...] 76 Protocols used: Heart Rate and Heartbeat [id number] documented in this encounter [facility] 11-09-2024 Note [facility] 11-09-2024 History of Presen t illness Narrative Radiology Service Progress Note PATIENT NAME: Matthew Huang DATE OF SERVICE: November 09, 2024 [...] PATIENT PRESENTS WITH AN IMPLANTABLE OR ATTACHED TECHNICAL TRAINING MANAGER: No RADIOLOGY DEPARTMENT: General X-ray: Exam(s) Completed: Chest X-Ray PERIPHERAL IV DATA: Not applicable SIGNED BY: RT Anette(R) November 09, 2024 1:19 PM documented in this encounter [facility] 11-09-2024 Note SARS-COV-2 (AGENT OF COVID-19) RNA: Not detected INFLUENZA A RNA: Not detected INFLUENZA B RNA: Not detected RESPIRATORY SYNCYTIAL VIRUS (RSV) RNA: Not detected [facility] Comment on above: Performed By: #### 9 [id number] ####[facility] [id number] [place] [id number] [place] 10-28-2024 History of Presen t illness Narrative Reason for Visit: Individual Counseling Problem: CL expressed feeling concerned after daughter having swollen eye and not getting answers from doctors about problem. CL informed of re-homing two dogs through facebook and feeling less stressed in home. CL stated still having two dogs and after rescuing another cat, two cats. CL stated, I've been doing some soul searching. 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 CL stated, I need a challenging job and everything else I've done has been too easy. CL stated feeling great since stating meds and doubling dose of Lexapro. CL stated having minimal intrusive thoughts. CL reports having a few drinks over holidays. F42.2 Mixed obsessional thoughts and acts (primary encounter diagnosis) Mental Status Exam: Within normal limits. Intervention: Provider addressed Matthew's concerns related to the presenting problem above through the following therapeutic interventions: Active and reflective listening and Motivational interviewing. Acute risk for harm to self/others: Low C-SSRS Screen Response/Impression: Matthew demonstrated minimal improvement in session today as evidenced by self reports of feeling physically better and having manageable stressors. Overall impression of treatment demonstrates minimal improvement as evidenced by being able to make choices about re-homing two dos without having intense guilt. TH and CL explored what schooling would like for security system analyst and what types of qualifications would be [...] (2018). BASIS-24 results were not reviewed. Plan: Matthew's follow-up/homework: CL will continue to self assess [...] 150 MG TABLET - Follow up with PCP/PROFESSOR OF FOREST PLANNING service or return to [facility] if symptoms persists or worsens - All questions answered Chuckie Hall CNP [facility] PATIENT INFO VAGINAL YEAST INFECTION INTRODUCTION Vaginal [...] taken by mouth. documented in this encounter [facility] 10-24-2024 Note [facility] 10-24-2024 History of Presen t illness Narrative cc - vaginal discharge HPI - Matthew Huang is an 34 year old woman [...] attempted? No She is going to make [employer] appt for frequent vaginitis PAST MEDICAL HISTORY [...] normal PMH - PAST MEDICAL HISTORY OF vascular [...] 150 MG TABLET - Follow up with PCP/PROFESSOR OF FOREST PLANNING service or return to [facility] if symptoms persists or worsens - All questions answered Chuckie Hall CNP documented in this encounter [facility] 10-11-2024 History of Presen t illness Narrative Reason for Visit: Individual Counseling Telephone visit. Patient identity confirmed via name and date of . Potential risks and benefits discussed with patient/guardian, who verbalized consent for telehealth encounter. 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 F42.2 Mixed obsessional thoughts and acts (primary encounter diagnosis) Mental Status Exam: Appearance: unable to assess Behavior: cooperative Speech: unremarkable Mood: neutral Affect: appropriate for circumstance Thought content: unremarkable Perception: unremarkable Insight: appropriate Judgement: appropriate Intervention: Provider addressed Matthew's concerns related to the presenting problem above through the following therapeutic interventions: Active and reflective listening. Acute risk for harm to self/others: Low C-SSRS Screen Response/Impression: Matthew demonstrated minimal improvement in session today as [...] (2018). BASIS-24 results were not reviewed. Plan: Matthew's follow-up/homework: CL will make conscious effort to get enough sleep, hydrate and monitor physical symptoms. Provider's follow-up/referrals/action items: N/A Next appointment with this provider: 10/28/2024 documented in this encounter [email or web address] Work Phone: 10-11-2024 Nurse Note TH outreached to client and left VM requesting a call back with provided number documented in this encounter [email or web address] Work Phone: 10-06-2024 Nurse Note TH outreachedto CL regardig missed appt. CL children answered phone. Due to age of children therapist was unable to to connect with client after saying hello multiple time. TH will provide follow up call next week. documented in this encounter [employer] Phone: 10-03-2024 Telephone encounter Note Patient informed via [employer]. [facility] 10-03-2024 Miscellaneous Notes Patient informed via [employer]. Ambulatory Pharmacy Prior Authorization Note Provider Intervention Required?: No- Pharmacy completed on your behalf. Rx Plan: Medicaid [facility] ([facility]) Drug: Ubrelvy 100MG tablets Cover My Meds Guido: [id number] Determination: Approved Prior Authorization/Case #: [id number] Prior Authorization Expiration: 03/27/2025 Time to PA [...] refills. Prescriptions will now be processed through [facility] for determination of next steps. For questions relating to this submission, please contact [facility] at [phone] documented in this encounter [facility] 10-03-2024 History of Presen t illness Narrative Subjective Video conference visit ([employer].). Patient identity confirmed via name and date of . Potential risks and benefits discussed with patient/guardian, who verbalized consent for telehealth encounter. Patient location: home. Chief Complaint: Psychiatric Med Management HPI 10/03/24: Matthew Huang is a 34 year old female [...] some mood switching briefly after starting lexapro (felt hyper), with some noted depressive and hypomanic symptoms [...] of risperdal 0.5 mg when she feels manicky - she is also sleep deprived. Notes [...] % Change in weight NA Height 5' 2 (157.5 cm) Estimated body mass index is 28.9 kg/m as calculated from the following: Height as of 06/13/24: 5' 2 (1.575 m). Weight as of 06/13/24: 158 [...] hours RN by calling main number for [email or web address]. 1. Bipolar disorder in partial remission, most recent episode unspecified type ([facility]) (Primary) - RN NURSING PER 15 MIN [...] months 10/27/2024 10:40 AM NURSE VISIT SHORT [facility] Tessa Dill RN 20 min 11/28/2024 3:20 PM MEDICATION MANAGEMENT [facility] SA[address] BW NURSE RUBÉN 20 min 11/28/2024 3:40 PM MEDICATION MANAGEMENT [facility] Herberth Montana DO 20 min Reason for visit: Psychiatric Med Management Matthew presents prior to their psychiatry provider visit to evaluate medication effectiveness, update medical history, and review overall treatment status. Video conference visit (Price.). Patient identity confirmed via name and date [...] in partial remission, most recent episode depressed ([facility]) (primary encounter diagnosis) Comment: Risk Assessment: Acute risk for harm to self/others: Low Plan Verified patient medications and allergies; updated patient medical history in medical record. Provided report to Dr. Montana regarding patient concerns and status. Follow up scheduled Upcoming appointments: Appointments for the next 13 months 10/03/2024 9:40 AM MEDICATION MANAGEMENT [facility] Herberth Montana DO 20 min documented in this encounter [facility] Work Phone: 10-03-2024 Telephone encounter Note Ambulatory Pharmacy Prior Authorization Note Provider Intervention Required?: No- Pharmacy completed on your behalf. Rx Plan: Medicaid [facility] ([facility]) Drug: Ubrelvy 100MG tablets Cover My Meds Guido: [id number] Determination: Approved Prior Authorization/Case #: [id number] Prior Authorization Expiration: 03/27/2025 Time to PA [...] refills. Prescriptions will now be processed through [facility] for determination of next steps. For questions relating to this submission, please contact [facility] at [phone] [facility] 09-27-2024 Instructions Jaja Moss APRN.LOUIS - [...] it does not, call our office at [phone] for further instructions. Ubrelvy is a calcitonin gene-related peptide receptor antagonist indicated for the use of acute migraine treatment. Ubrelvy can be taken as needed to treat an acute migraine. If no relief from symptoms within 2 hours, Ubrelvy can be repeated. Ubrelvy should be taken at the first sign of a migraine attack. documented in this encounter [facility] 09-27-2024 Note [facility] 09-27-2024 Procedure note Images from the [...] Analgesic Diclofenac (Voltaren, Cataflam, Cambia) Hydrocodone/Acetaminophen (Vicodin, [place]) Anti-Anxiety Alprazolam (Xanax, Niravam) Diazepam (Valium) Anti-Migraine [...] (LMP Unknown) BMI 29.99 kg/m Patient name: Matthew Huang : 1990 ALLERGIES Allergen Reactions Onion [...] for migraine Informed Consent Consent Obtained: Written [place] Protocol A moment to CARE was completed [...] applicable Written Consent Obtained: Written LOT #: [id number] Expiration Date: Month: 12 Year: 2025 Injection Sites Left (Units) Left (Sites) Right (Units) Right (Sites) TOTAL (Units) Stock Hanger 5 1 5 1 10 Procerus Units: [...] Analgesic Diclofenac (Voltaren, Cataflam, Cambia) Hydrocodone/Acetaminophen (Vicodin, [place]) Anti-Anxiety Alprazolam (Xanax, Niravam) Diazepam (Valium) Anti-Convulsant Lamotrigine (Lamictal) Topiramate (Topamax, Trokendi XL, Qudexy) Anti-Depressant and Antipsychotic Quetiapine (Seroquel) Antiemetics Ondansetron Promethazine Anti-Migraine Rizatriptan (Maxalt) Sumatriptan (Imitrex, Sumavel) GEPANTS Rimegepant (Nurtec) Supplements CoQ10 Magnesium Riboflavin Other Medications Dexamethasone (Decadron) Methylprednisolone (Medrol) Prednisone Over the Counter Medications Acetaminophen (Tylenol) Ibuprofen (Advil, Motrin) Jaja Moss APRN.PATIENT SERVICES REPRESENTATIVE [facility] 09-27-2024 Procedure note Images from the [...] Analgesic Diclofenac (Voltaren, Cataflam, Cambia) Hydrocodone/Acetaminophen (Vicodin, [place]) Anti-Anxiety Alprazolam (Xanax, Niravam) Diazepam (Valium) Anti-Migraine [...] (LMP Unknown) BMI 29.99 kg/m Patient name: Matthew Huang : 1990 ALLERGIES Allergen Reactions Onion [...] for migraine Informed Consent Consent Obtained: Written [place] Protocol A moment to CARE was completed [...] applicable Written Consent Obtained: Written LOT #: [id number] Expiration Date: Month: 12 Year: 2025 Injection Sites Left (Units) Left (Sites) Right (Units) Right (Sites) TOTAL (Units) Stock Hanger 5 1 5 1 10 Procerus Units: [...] Analgesic Diclofenac (Voltaren, Cataflam, Cambia) Hydrocodone/Acetaminophen (Vicodin, [place]) Anti-Anxiety Alprazolam (Xanax, Niravam) Diazepam (Valium) Anti-Convulsant Lamotrigine (Lamictal) Topiramate (Topamax, Trokendi XL, Qudexy) Anti-Depressant and Antipsychotic Quetiapine (Seroquel) Antiemetics Ondansetron Promethazine Anti-Migraine Rizatriptan (Maxalt) Sumatriptan (Imitrex, Sumavel) GEPANTS Rimegepant (Nurtec) Supplements CoQ10 Magnesium Riboflavin Other Medications Dexamethasone (Decadron) Methylprednisolone (Medrol) Prednisone Over the Counter Medications Acetaminophen (Tylenol) Ibuprofen (Advil, Motrin) Jaja Moss APRN.PATIENT SERVICES REPRESENTATIVE documented in this encounter [facility] 09-26-2024 History of Presen t illness Narrative No show for appt. documented in this encounter [facility] Work Phone: 09-20-2024 Note [facility] 09-20-2024 History of Presen t illness Narrative This note was created using LinkStorm. Subjective Matthew Huang is a 34 year old female. [...] HAND GENERAL 3V PA/LAT/OBL LEFT Alize Alonso APRN.PATIENT SERVICES REPRESENTATIVE documented in this encounter [facility] 09-20-2024 Instructions Alize Alonso APRN.CNP - [...] Alize Alonso APRN.CNP documented in this encounter [facility] 09-08-2024 History of Presen t illness [...] The following goals were addressed today: I want better ccping skills when I have intrusive thoughts and reduce panic Next Care Plan Review Date: 07/19/2025 Provider addressed Matthew's concerns related to the presenting problem above through the following therapeutic interventions: Empathetic validation and support and Symptom management, skill building. Acute risk for harm to self/others: Low C-SSRS Screen Response/Impression: Matthew demonstrated no change in session today as evidenced by limited use of coping skills due to not feeling well. Overall impression of treatment demonstrates no change as evidenced by no progress with goals and use of avoidance when asking direct open ended questions. . TH asked open ended questions about recent and [...] (2018). BASIS-24 results were not reviewed. Plan: Matthew's follow-up/homework: CL will stay connected with providers and openly share feeling about symptoms. Provider's follow-up/referrals/action items: N/A Next appointment with this provider: 09/23/24 documented in this encounter [facility] Work Phone: 09-08-2024 Telephone encounter Note Patient verified by name and Relayed message from provider Sol Santos APRN.CNP on 09/08/2024 at 9:34 am. Patient stated that the provider had already prescribed 2 Diflucan which one was already taken and the 2nd one was to be taken on Thursday and does the provider still want her to take the 2nd diflucan on Thursday? This nurse clarified with the provider that patient is not to take 2nd Diflucan on Thursday to wait until she completes the Flagyl then take the 2nd Diflucan and do not pick out hand diflucan prescription. Relayed clarification to patient. Patient verbalized understanding. Danielle Price LPN [facility] 09-08-2024 Miscellaneous Notes Patient verified by name and Relayed message from provider Sol Santos APRN.CNP on 09/08/2024 at 9:34 am. Patient stated that the provider had already prescribed 2 Diflucan which one was already taken and the 2nd one was to be taken on Thursday and does the provider still want her to take the 2nd diflucan on Thursday? This nurse clarified with the provider that patient is not to take 2nd Diflucan on Thursday to wait until she completes the Flagyl then take the 2nd Diflucan and do not pick out hand diflucan prescription. Relayed clarification to patient. Patient [...] Flagyl. Thank you. documented in this encounter [facility] 09-08-2024 Note Addended by: SOL SANTOS on: 09/08/2024 09:28 AM Modules accepted: Orders [facility] 09-08-2024 Telephone encounter Note Please advise patient that vaginal culture is positive for BV and yeast. Flagyl will treat BV, start it and finish it, avoid alcohol with this medicine. One more Diflucan sent in to pharmacy, to take after she finishes Flagyl. Thank you. [facility] 09-07-2024 Note [facility] 09-07-2024 History of Presen t illness Narrative This note was created using Worksoftriter. Subjective Matthew Huang is a 34 year old female. [...] history is provided by the patient. No speech/language therapist was used. Vaginal Problem This is a [...] NAAT - BACTERIAL VAGINOSIS NAAT Sirisha Shelley APRN.LOUIS documented in this encounter [facility] 08-19-2024 History of Presen t illness Narrative This note was created using NoteWriter. Subjective Matthew Huang is a 34 year old female. [...] concerns - Patient also advised to visit [facility] for AVS, educational material, and test results ASSESSMENT/PLAN: 1. Itching in the vaginal area - ICD9: 698.1, ICD10: N89.8 - FLUCONAZOLE 150 MG TABLET Sol Santos APRN.LOUIS documented in this encounter [facility] 08-19-2024 Note [facility] 08-11-2024 Note [facility] 08-11-2024 History of Presen t illness Narrative This note was created using MideoMeter. Subjective Matthew Huang is a 34 year old female. Patient presents with concern for sinus pain/pressure, nasal congestion, cough and ocassional light headedness/dizziness x 1 week. Patient denies fever or chills. Patient notes that symptoms are worse on the right side. Previously had a cough, but is now resolved. Has been taking Tylenol without relief. The history is provided by the patient. No speech/language therapist was used. Sinus Problem This is a [...] if symptoms persist or worsen. Sirisha Shelley APRN.LOUIS documented in this encounter [facility] 08-11-2024 Instructions Sirisha Shelley APRN.CNP - [...] outside of your nose, take very small sniff. Encouraged to use nightly before going to [...] may need to follow up with an triage register nurse and/or ENT - Go to the ER if you begin to experience any severe symptoms, such as facial, eye, or cheek swelling on one side of your face, labored breathing/difficulty breathing, shortness of breath or chest pain, stiffness in neck, difficulty waking up or lethargy, severe headaches, or a rash that looks like a bruise documented in this encounter [facility] 08-09-2024 History of Presen t illness Narrative Reason for Visit: Individual Counseling Video conference visit (Price.). Patient identity confirmed via name and date [...] with manage anxiety and feeling cat is therapy animal. F41.1 Generalized anxiety disorder (primary encounter diagnosis) Mental Status Exam: Within normal limits. Intervention: The following goals were addressed today: Identify and discuss unresolved life conflicts (see measurable component below): Next Care Plan Review Date: 07/19/2025 Provider addressed Matthew's concerns related to the presenting problem above through the following therapeutic interventions: Active and reflective listening and Symptom management, skill building. Acute risk for harm to self/others: Low C-SSRS Screen Response/Impression: Matthew demonstrated no change in session today as [...] review the patient's BASIS-24 results? Yes Plan: Matthew's follow-up/homework: Cl will re-enagge with healthier lifestyle goals after feeling better. Provider's follow-up/referrals/action items: N/A Next appointment with this provider: 08/23/24 documented in this encounter [email or web address] Work Phone: 07-31-2024 Instructions Kiara Ibarra APRN.CNP - 07/31/2024 9:13 AM EDT Continue tylenol as needed Try flonase and claritin Return to PCP or see ENT if worsening not improving documented in this encounter [facility] 07-31-2024 Note [facility] 07-31-2024 History of Presen t illness Narrative Matthew Huang is a 34 year old female [...] PMH - PAST MEDICAL HISTORY OF Comment: vascular disease 01/2002 No date: PMH - PAST MEDICAL [...] Units INTRADERMAL every 12 weeks Dakota Guzman, STONE POLISHER.PATIENT SERVICES REPRESENTATIVE 200 Units at 07/04/24 1016 ROS: Negative [...] improving Red flag symptoms reviewed. Kiara Ibarra APRN.PATIENT SERVICES REPRESENTATIVE documented in this encounter [facility] 07-28-2024 History of Presen t illness Narrative Reason for Visit: Individual Counseling Video conference visit (Price.). Patient identity confirmed via name and date [...] The following goals were addressed today: I know it will never go away but I want to get better coping skills to manage Next Care Plan Review Date: 07/19/2025 Provider addressed Matthew's concerns related to the presenting problem above through the following therapeutic interventions: Active and reflective listening. Acute risk for harm to self/others: Low C-SSRS Screen Response/Impression: Matthew demonstrated no change in session today as [...] review the patient's BASIS-24 results? No Plan: Matthew's follow-up/homework: CL was encouraged to assess night time routine with kids to help more sturctured bedtime and allow for reduced time spent getting to bed. Provider's follow-up/referrals/action items: N/A Next appointment with this provider: 08/09/24 documented in this encounter [facility] Work Phone: 07-19-2024 History of Presen [...] abilities to reach your treatment plan goals? I am not going to give up since I am very resilient Assessed Needs / LOC Level of Service: Outpatient Service Plan: Integrated Care Plan (SA209) Problem/Assessed Need: ANXIETY Goal: I know it will never go away but I want to get better coping skills to manage Start Date: 07/19/2024 Expected End Date: 07/19/2025 [...] track Note: By Care Plan review date, Matthew will be able to identify at least 2 patterns of thinking that worsen anxiety, and be able to use at least 2 ways to challenge and balance anxious thoughts. Task: Care Engineering Mathematician will explore self-talk, challenge biases, and assist patient in replacing distorted messages with reality-based alternatives and positive self-talk. Priority: High Note: Services: Individual counseling Frequency:Weekly Goal: I will practice self-care daily to decrease and prevent anxiety. Start Date: 07/19/2024 Expected End Date: 07/19/2025 Recent Progress: On track Task: Care Engineering Mathematician will teach and implement relapse prevention strategies for managing possible future anxiety symptoms. Priority: High Note: Services: Individual counseling Frequency:Weekly Task: Care Engineering Mathematician will support the patient in following through with work, family and social activities. Priority: High Note: Services: Individual counseling Frequency:Weekly Problem/Assessed Need: PSYCHIATRIC MEDICATION MANAGEMENT Goal: I want to take my medication everday and monitoring symptoms Start Date: 07/19/2024 Expected End Date: 07/19/2025 Recent Progress: On track Objective: I will understand my mental health diagnoses and symptoms that could benefit from medication treatment. Task: Care Engineering Mathematician will complete a psychiatric evaluation to identify and/or clarify psychiatric diagnoses as well as symptoms that are appropriate targets for medication treatment. Note: Services: Psychiatry Frequency: PRN Task: Care Engineering Mathematician will assess my general health, including risk [...] the reason each are prescribed. Task: Care Engineering Mathematician will provide education on each prescribed psychiatric medication, including potential interactions with other medications or drugs/alcohol. Note: Services: Psychiatry Frequency: PRN Objective: I will participate in regular follow-up visits for monitoring my condition s response to psychiatric medication. Task: Care Engineering Mathematician will assess response to medication, including impact on functioning and quality of life, at each follow-up visit. Note: Services: Psychiatry Frequency: PRN Task: Care Engineering Mathematician will administer necessary standardized assessment tools or laboratory monitoring to monitor medication response. Note: Services: Psychiatry Frequency: PRN Task: Care Engineering Mathematician will assess for medication side effects at each follow-up visit. Note: Services: Psychiatry Frequency: PRN Problem/Assessed Need: TRAUMA/STRESSOR DISORDER Goal: I want to resolve my own trauma and not project my feelings Start Date: 07/19/2024 Expected End Date: 07/19/2025 [...] 07/19/2025 Recent Progress: On track Task: Care Engineering Mathematician will teach the patient a guided self-dialogue in which they learn to recognize and challenge maladaptive self-talk, cope with feelings, and overcome avoidance. Priority: Medium Note: Services: Individual counseling Frequency:Weekly Task: Care Engineering Mathematician will help the patient identify and change self-attacking and personal shaming resulting from the trauma. Due Date: 05/15/2023 Priority: Medium Note: Services: Individual counseling Frequency:Weekly Service Conclusion Criteria/Transition/Discharge: What progress have you made towards achieving your goal so far?: I have learned mindful techniques and using medication to control symptoms. What have you achieved as a result of participating in services?: It feels nice to talk about past and feelings What will you need to continue your recovery and maintain your health? Continue coming to appts If applicable, are you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 Phone: 03-08-2024 History of Presen t illness Narrative Reason for visit: Individual Counseling Video conference visit (Price.). Patient identity confirmed via name and date [...] session. The following goals were addressed today: I know it will never go away but I want to get better coping skills to manage Next Care Plan Review Date: 05/15/2024 F41.1 [...] partial remission, most recent episode depressed ([facility]) Mood has been stable. Continue lamotrigine and Risperdal at current doses. Subjective Video conference visit ([employer].vt). Patient identity confirmed via name and date [...] attacks are related to Alexandre's health issues. [place] the buspar made her manic and that [...] visit. Objective 05/07/2021 11:05 AM Height 5' 2 (157.5 cm) Mental Status Exam Appearance is [...] hours RN by calling main number for [email or web address]. 1. Bipolar disorder, in partial remission, most recent episode depressed ([facility]) (Primary) Assessment & Plan: Mood has been stable. Continue lamotrigine and Risperdal at current doses. Orders: - RN NURSING PER 15 MIN - REFERRAL TO CLINICAL PHARMACY 2. Bipolar disorder in partial remission, most recent episode unspecified type ([facility]) - lamoTRIgine (LAMICTAL) 200 mg tablet; Take [...] 13 months 02/23/2024 11:00 AM COUNSELING EXTENDED [facility] Whaley 60 min 03/11/2024 10:20 AM NURSE VISIT SHORT [facility] Tessa Dill RN 20 min 03/18/2024 12:00 PM COUNSELING EXTENDED [facility] Whaley 60 min 03/21/2024 1:20 PM MEDICATION MANAGEMENT [facility] SA209 NURSE RUBÉN 20 min 03/21/2024 1:40 PM MEDICATION MANAGEMENT [facility] Herberth Montana DO 40 min 03/22/2024 12:00 PM COUNSELING EXTENDED [facility] Whaley 60 min Reason for visit: Psychiatric Med Management Matthew presents via video Subjective Interval history and [...] in partial remission, most recent episode depressed ([facility]) (primary encounter diagnosis) Comment: Risk Assessment: Acute risk for harm to self/others: Low Plan Verified patient medications and allergies; updated patient medical history in medical record. Provided report to Dr. Montana regarding patient concerns and status. Follow up as scheduled. Upcoming appointments: Appointments for the next 13 months 02/22/2024 1:20 PM MEDICATION MANAGEMENT [facility] Herberth Montana DO 20 min 02/23/2024 11:00 AM COUNSELING EXTENDED [facility] Angela Dinh [employer] DEVELOPER 60 min 03/18/2024 12:00 PM COUNSELING EXTENDED [facility] Angela Dinh, [employer] NET DEVELOPER 60 min 03/22/2024 12:00 PM COUNSELING EXTENDED [facility] Angela Dinh [employer] DEVELOPER 60 min documented in this encounter [facility] [place] [facility] Work Phone: 02-17-2024 Miscellaneous Notes Prior authorization has been submitted via CoverMyMeds. Included clinical notes from 01/06/24. Medication: Nurtec (rimegepant) Dosage/frequency: 75 MG Insurance Name: [employer] Guido (if available): [id number] Was authorization approved, denied, or still pending? PENDING If approved, effective dates: n/a documented in this encounter [facility] 02-16-2024 History of Presen t illness Narrative Reason for visit: Individual Counseling Video conference visit (Price.). Patient identity confirmed via name and date of . Potential risks and benefits discussed with patient/guardian, who verbalized consent for telehealth encounter. Patient location: other: CL was at [facility] . Subjective CL expressed feeling significant [...] come to hospital to visit. TH reminded clietn of importance of taking care of self [...] 02-08-2024 History of Presen t illness Narrative Matthew Huang is a patient of Maile Beaver MD. CHIEF COMPLAINT: Matthew Huang is a 34 year old female who presents today for follow up of 5TH METACARPAL FRACTURE. HISTORY OF PRESENT ILLNESS: PAIN EVALUATION 02/08/2024 1336 Pain Level: 4 Pain Location: Hand-Left Description: Shooting Duration Amount of Time: 5 Duration Units: Weeks Frequency: Intermittent Interval history: Matthew Huang is a [id number] 33-year-old [id number] mother who comes in for an injury [...] results and radiologist's interpretation, available in the [facility] health record. Images were reviewed with the patient/family members in the office today. My personal interpretation of the performed imaging is healing 5th metacarpal fracture CLINICAL IMPRESSION / ASSESSMENT: (I96.217S) Closed nondisplaced fracture of shaft of fifth [...] that escaped review. documented in this encounter [facility] 02-08-2024 History of Presen t illness Narrative Radiology Service Progress Note PATIENT NAME: Matthew Huang DATE OF SERVICE: February 08, 2024 [...] PATIENT PRESENTS WITH AN IMPLANTABLE OR ATTACHED TECHNICAL TRAINING MANAGER: No RADIOLOGY DEPARTMENT: General X-ray: Exam(s) Completed: Upper Extremity X-Ray(s): Hand, left PERIPHERAL IV DATA: Not applicable SIGNED BY: RT Savana(R) February 08, 2024 12:56 PM documented in this encounter [facility] 02-05-2024 History of Presen t illness Narrative Reason for visit: No chief complaint on file. Video conference visit (Price.). Patient identity confirmed via name and date of . Potential risks and benefits discussed with patient/guardian, who verbalized consent for telehealth encounter. Patient location: home. Subjective CL expressed feeling frustrated with dogs and being able to keep house clean due to weather. CL stated, I feel like my kids control my life and I can't do anything. CL reports kids throw temper tantrums all [...] from children's father to reduce risk of terminal operations supervisor injury. The following goals were addressed today: I know it will never go away but I want to get better coping skills to manage and I will learn and use 1-3 skills to manage thoughts, feelings, and urges brought on by encounters with trauma-related situations. Next Care Plan Review Date: 05/15/2024 F31.75 Bipolar disorder, in partial remission, most recent episode depressed ([facility]) (primary encounter diagnosis) F41.1 Generalized anxiety disorder [...] Opened in error documented in this encounter [facility] 01-29-2024 History of Presen t illness Narrative Telephone visit. Patient identity confirmed via name and date of . Potential risks and benefits discussed with patient/guardian, who verbalized consent for telehealth encounter. Reason for Telephone: Technology/connectivity failure during appointment . Patient location: home. Registered Nurse Visit 01/29/2024 9:00 AM Reason For Visit Health maintenance (care gap) screening, assessment, education, and referral. Interval History and Patient Concerns Matthew reports that since she increased Risperdal to [...] partial remission, most recent episode depressed ([facility]) (Primary) Overview: Has responded well to risperdal and lamotrigine, with some intermittent cycling between mild depressive/euthymic and hypomanic states. Care Planning Additional Plan: Patient education provided this visit: coping, symptoms, medication Routed encounter note to Dr. Montana Follow up as scheduled Call sooner if needed Reviewed upcoming appointments: Appointments for the next 13 months 02/05/2024 10:30 AM COUNSELING EXTENDED [facility] Whaley 60 min 02/22/2024 1:00 PM MEDICATION MANAGEMENT [facility] SA209 BW NURSE LUCI MONTANA 20 min 02/22/2024 1:20 PM MEDICATION MANAGEMENT [facility] Herberth Montana DO 20 min documented in this encounter [email or web address] Work Phone: 01-28-2024 History of Presen t illness Narrative PT ASSESSMENT - CASTING ROOM Matthew presents for cast removal. SALMA James documented in this encounter [facility] 01-28-2024 History of Presen t illness Narrative Images from the original note were not included. Mathtew Huang is a patient of Maile Beaver MD. CHIEF COMPLAINT: Matthew Huang is a 34 year old female who presents today for follow up of left fifth metacarpal fracture. HISTORY OF PRESENT ILLNESS: PAIN EVALUATION 01/28/2024 1138 Pain Level: 3 Pain Location: Hand-Left Description: Aching Duration Amount of Time: 1 Duration Units: Months Frequency: Intermittent Intervention/Comfort measure: Medication Motrin, cast Comments: pt here for left 5h met fracture follow up. Interval history: Matthew Huang is a [id number] 33-year-old npcj-vj-vgls mother who comes in for an injury [...] results and radiologist's interpretation, available in the [facility] health record. Images were reviewed with the patient/family members in the office today. My personal interpretation of the performed imaging is healing fifth metacarpal fracture CLINICAL IMPRESSION / ASSESSMENT: (S62.878D) Closed nondisplaced fracture of shaft of fifth [...] that escaped review. documented in this encounter [facility] 01-28-2024 History of Presen t illness Narrative Radiology Service Progress Note PATIENT NAME: Matthew Huang DATE OF SERVICE: January 28, 2024 [...] PATIENT PRESENTS WITH AN IMPLANTABLE OR ATTACHED TECHNICAL TRAINING MANAGER: No RADIOLOGY DEPARTMENT: General X-ray: Exam(s) Completed: Upper Extremity X-Ray(s): Hand, right PERIPHERAL IV DATA: Not applicable SIGNED BY: RT Dianne(R) January 28, 2024 11:49 AM documented in this encounter [facility] 01-28-2024 History of Presen t illness Narrative Reason for visit: Individual Counseling Video conference visit (Price.). Patient identity confirmed via name and date [...] coping skills of reading new books from [employer] and feeling inspired. TH and CL explored how to manage [...] behaviors. The following goals were addressed today: I know it will never go away but I want to get better coping skills to manage and I will learn and use 1-3 [...] Jama Patel (2018). documented in this encounter [email or web address] Work Phone: 01-22-2024 History of Presen t illness Narrative Reason for visit: Individual Counseling Video conference visit ([employer]me). Patient identity confirmed via name and date [...] surgery. The following goals were addressed today: I know it will never go away but I want to get better coping skills to manage and I want to take my medication everday and monitoring symptoms Next Care Plan Review Date: 05/15/2024 F41.1 [...] Jama Patel (2018). documented in this encounter [employer] Phone: 01-15-2024 History of Presen t illness Narrative No response to text link. Missed RN visit. documented in this encounter [employer] Phone: 01-13-2024 History of Presen t illness Narrative Reason for visit: Individual Counseling Video conference visit ([employer] Patient identity confirmed via name and date of . Potential risks and benefits discussed with patient/guardian, who verbalized consent for telehealth encounter. Patient location: home. Subjective CL expressed feeling extremely anxious about upcoming surgery for son and verbiage of surgery being major. CL stated mobility has been getting better [...] children. The following goals were addressed today: I know it will never go away but I want to get better coping skills to manage and I want to resolve my own trauma and not project my feelings Next Care Plan Review Date: 05/15/2024 F42.2 [...] illness Narrative PT ASSESSMENT - CASTING ROOM Matthew presents for cast removal and Application of cast. Cast removed because of rubbing. Left arm cleaned with soap and water. Applied waterproof short arm boxer's cast: to Left arm. Patient has been instructed in Care of cast. SALMA James documented in this encounter [facility] 01-08-2024 History of Presen t illness Narrative Telephone visit. Patient identity confirmed via name and date of . Potential risks and benefits discussed with patient/guardian, who verbalized consent for telehealth encounter. Reason for Telephone: Technology/connectivity failure during appointment . Patient location: home. Registered Nurse Visit 01/08/2024 8:00 AM Reason For Visit Health maintenance (care gap) screening, assessment, education, and referral. Interval History [...] partial remission, most recent episode depressed ([facility]) (Primary) Overview: Has responded well to risperdal and lamotrigine, with some intermittent cycling between mild depressive/euthymic and hypomanic states. Care Planning Additional Plan: Patient education provided this visit: coping, medication, symptoms Routed encounter note to Dr. Montana Follow up with RN in one week Call sooner/Blend[employer] message if needed Reviewed upcoming appointments: Appointments for the next 13 months 01/13/2024 9:15 AM COUNSELING EXTENDED [facility] Whaley 60 min 01/15/2024 8:40 AM NURSE VISIT SHORT [facility] Tessa Dill RN 20 min 02/22/2024 1:00 PM MEDICATION MANAGEMENT [facility] SA209 BW NURSE RUBÉN 20 min 02/22/2024 1:20 PM MEDICATION MANAGEMENT [facility] Herberth Rubén, DO 20 min documented in this encounter [email or web address] Work Phone: 01-06-2024 Instructions Jaja Moss APRN.PATIENT SERVICES REPRESENTATIVE - 01/06/2024 1:55 PM EST Instruction after [...] it does not, call our office at [phone] for further instructions. documented in this encounter [facility] 01-06-2024 Procedure note Headache Center Follow-up Visit Current Preventive: botox Change needed for current preventive? No Current Abortive: nurtec- helping better overall Change needed for current abortive? No Miscellaneous Patient Concerns: Headaches worse in September after her injections, but October and November have been better. Impression: Intractable chronic migraine without aura and without status migrainosus (primary encounter diagnosis) Matthew María Reina has been previously approved for [...] Analgesic Diclofenac (Voltaren, Cataflam, Cambia) Hydrocodone/Acetaminophen (Vicodin, [place]) Anti-Anxiety Alprazolam (Xanax, Niravam) Diazepam (Valium) Anti-Migraine [...] Pulse 78 LMP (LMP Unknown) Patient name: Matthew Huang : 1990 ALLERGIES Allergen Reactions Onion [...] for migraine Informed Consent Consent Obtained: Written [place] Protocol A moment to CARE was completed [...] applicable Written Consent Obtained: Written LOT #: [id number] Expiration Date: Month: 6 Year: 2025 Injection Sites Left (Units) Left (Sites) Right (Units) Right (Sites) TOTAL (Units) Stock Hanger 5 1 5 1 10 Procerus Units: [...] Analgesic Diclofenac (Voltaren, Cataflam, Cambia) Hydrocodone/Acetaminophen (Vicodin, [place]) Anti-Anxiety Alprazolam (Xanax, Niravam) Diazepam (Valium) Anti-Convulsant Lamotrigine (Lamictal) Topiramate (Topamax, Trokendi XL, Qudexy) Anti-Depressant and Antipsychotic Quetiapine (Seroquel) Antiemetics Ondansetron Promethazine Anti-Migraine Rizatriptan (Maxalt) Sumatriptan (Imitrex, Sumavel) GEPANTS Rimegepant (Nurtec) Supplements CoQ10 Magnesium Riboflavin Other Medications Dexamethasone (Decadron) Methylprednisolone (Medrol) Prednisone Over the Counter Medications Acetaminophen (Tylenol) Ibuprofen (Advil, Motrin) Jaja Moss APRN.PATIENT SERVICES REPRESENTATIVE documented in this encounter [facility] 01-01-2024 History of Presen t illness Narrative Left hand fx documented in this encounter [facility] 01-01-2024 History of Presen t illness Narrative PT ASSESSMENT - CASTING ROOM Matthew presents for Application of cast. Applied waterproof short arm boxer's cast: to Left arm Patient has been instructed in Care of cast.. SALMA James documented in this encounter [facility] 01-01-2024 History of Presen t illness Narrative Radiology Service Progress Note PATIENT NAME: Matthew Huang DATE OF SERVICE: January 01, 2024 [...] PATIENT PRESENTS WITH AN IMPLANTABLE OR ATTACHED TECHNICAL TRAINING MANAGER: No RADIOLOGY DEPARTMENT: General X-ray: Exam(s) Completed: Upper Extremity X-Ray(s): Hand, left PERIPHERAL IV DATA: Not applicable SIGNED BY: BRANDON COLVIN(RT) AND RT Yohana(R) January 01, 2024 2:10 PM documented in this encounter [facility] 01-01-2024 History of Presen t illness Narrative Matthew Huang is a patient of Maile Beaver MD. CHIEF COMPLAINT: Matthew Huang is a 33 year old female who presents today for ED follow up of L 5th metacarpal fracture. HISTORY OF PRESENT ILLNESS: PAIN EVALUATION 01/01/2024 1418 Pain Level: 6 Pain Location: Hand-Left Description: Throbbing Duration Units: Weeks Frequency: Continuous Intervention/Comfort measure: Medication Comments: worse at night ; lifting kids all day Interval history: Matthew Huang is a stmow-[id number] 33-year-old ysui-lw-jwml mother who comes in for an injury [...] results and radiologist's interpretation, available in the [facility] health record. Images were reviewed with the patient/family members in the office today. My personal interpretation of the performed imaging is nondisplaced fifth metacarpal fracture CLINICAL IMPRESSION / ASSESSMENT: (S62.910V) Closed nondisplaced fracture of shaft of fifth metacarpal bone of left hand, initial encounter PLAN: Patient was placed in a boxers waterproof cast. I will see her back [...] that escaped review. documented in this encounter [facility] 01-01-2024 History of Presen t illness Narrative Telephone visit. Patient identity confirmed via name and date of . Potential risks and benefits discussed with patient/guardian, who verbalized consent for telehealth encounter. Reason for Telephone: Other: client's video was not working, only audio. Patient location: home. Registered Nurse Visit 01/01/2024 9:00 AM Reason For Visit Health maintenance (care gap) screening, assessment, education, and referral. Interval History and Patient Concerns Matthew recently fell down stairs and broke left [...] in partial remission, most recent episode depressed ([facility]) (Primary) Overview: Has responded well to risperdal [...] months 01/08/2024 8:40 AM NURSE VISIT SHORT [facility] Tessa Dill RN 20 min 01/13/2024 9:15 AM COUNSELING EXTENDED [facility] Whaley 60 min 01/25/2024 1:20 PM MEDICATION MANAGEMENT [facility] SA[facility] NURSE LUCI MONTANA 20 min 01/25/2024 1:40 PM MEDICATION MANAGEMENT [facility] Herberth Montana DO 40 min documented in this encounter [facility] Work Phone: 12-28-2023 Instructions Tia Bowen APRN.PATIENT SERVICES REPRESENTATIVE - 12/28/2023 7:29 PM EST 1. Injury [...] follow up with orthopedics for further evaluation [phone] to schedule - XR HAND GENERAL 3V PA/LAT/OBL LEFT Nondisplaced oblique fracture of the mid to distal shaft of the fifth metacarpal. 2. Other bones intact and normally aligned. documented in this encounter [facility] 12-28-2023 History of Presen t illness Narrative Radiology Service Progress Note PATIENT NAME: Matthew Huang DATE OF SERVICE: December 28, 2023 [...] PATIENT PRESENTS WITH AN IMPLANTABLE OR ATTACHED TECHNICAL TRAINING MANAGER: No RADIOLOGY DEPARTMENT: General X-ray: Exam(s) Completed: Upper Extremity X-Ray(s): Hand, left PERIPHERAL IV DATA: Not applicable SIGNED BY: RT Fela(R) December 28, 2023 7:12 PM documented in this encounter [facility] 12-28-2023 History of Presen t illness Narrative Images from the original note were not included. This note was created using NoteWriter. Subjective Matthew Huang is a 33 year old female. HPI left lateral hand injury fell down the stairs indoor basement stairs hit the lateral edge of the left hand as she fell happened prior to coming to [facility] today lateral hand pain and swelling, [...] follow up with orthopedics for further evaluation [phone] to schedule - XR HAND GENERAL 3V PA/LAT/OBL LEFT Nondisplaced oblique fracture of the mid to distal shaft of the fifth metacarpal. 2. Other bones intact and normally aligned. ulnar gutter splint applied in office today per [facility] staff Tia Bowen APRN.PATIENT SERVICES REPRESENTATIVE documented in this encounter [facility] 12-24-2023 History of Presen t illness Narrative Reason for visit: Individual Counseling Video conference visit (Price.). Patient identity confirmed via name and date of . Potential risks and benefits discussed with patient/guardian, who verbalized consent for telehealth encounter. Patient location: home. Subjective CL stated, so much has happened since last week I am not sure where to start. CL reports feeling hurt and upset after [...] triggers. The following goals were addressed today: I know it will never go away but I want to get better coping skills to manage and I will learn and use 1-3 [...] Patel (2018). documented in this encounter [facility] Work Phone: 12-17-2023 History of Presen t illness Narrative Reason for visit: Individual Counseling Video conference visit (Price.). Patient identity confirmed via name and date [...] children. The following goals were addressed today: I know it will never go away but I want to get better coping skills to manage Next Care Plan Review Date: 05/15/2024 F42.2 [...] 9:00 AM Reason For Visit Health maintenance (care gap) screening, assessment, education, and referral. Interval History and Patient Concerns Matthew reports she has been having consistent depression [...] in partial remission, most recent episode depressed ([facility]) (Primary) Overview: Has responded well to risperdal [...] 13 months 12/17/2023 12:00 PM COUNSELING EXTENDED [facility] Whaley 60 min 12/24/2023 12:00 PM COUNSELING EXTENDED [facility] Whaley 60 min 01/01/2024 8:40 AM NURSE VISIT SHORT [facility] Tessa Dill RN 20 min 01/25/2024 1:20 PM MEDICATION MANAGEMENT [facility] SA[facility] NURSE LUCI MONTANA 20 min 01/25/2024 1:40 PM MEDICATION MANAGEMENT [facility] Herberth Montana DO 40 min documented in this encounter [facility] Work Phone: 12-10-2023 History of Presen t illness Narrative Reason for visit: Individual Counseling Video conference visit (Price.). Patient identity confirmed via name and date [...] relationships. The following goals were addressed today: I know it will never go away but I want to get better coping skills to manage Next Care Plan Review Date: 05/15/2024 F41.1 [...] in this encounter [facility] Work Phone: 01-15-2024 History of Presen t illness Narrative Associated [...] partial remission, most recent episode depressed ([facility]) Depressive symptoms were present for a few days but have since improved. Pt will be seenby RN between appts with this provider to monitor mood cycling. Continue current medications. Subjective Video conference visit (Price.). Patient identity confirmed via name and date [...] visit. Objective 05/07/2021 11:05 AM Height 5' 2 (157.5 cm) Mental Status Exam Appearance is [...] hours RN by calling main number for [email or web address]. 1. Bipolar disorder in partial remission, most recent episode unspecified type ([facility]) (Primary) - lamoTRIgine (LAMICTAL) 200 mg tablet; [...] in partial remission, most recent episode depressed ([facility]) Overview: Has responded well to risperdal and [...] 13 months 12/17/2023 12:00 PM COUNSELING EXTENDED [facility] Whaley 60 min 12/24/2023 12:00 PM COUNSELING EXTENDED [facility] Whaley 60 min 01/01/2024 8:40 AM NURSE VISIT SHORT [facility] Tessa Dill RN 20 min 01/25/2024 1:20 PM MEDICATION MANAGEMENT [facility] SA[address] BW NURSE LUCI MONTANA 20 min 01/25/2024 1:40 PM MEDICATION MANAGEMENT [facility] Herberth Montana DO 40 min documented in this encounter [facility] Work Phone: 11-13-2023 History of Presen t illness Narrative Reason for visit: Individual Counseling Video conference visit (Price.). Patient identity confirmed via name and date [...] success. The following goals were addressed today: I know it will never go away but I want to get better coping skills to manage and I will learn and use 1-3 [...] in this encounter [facility] Work Phone: 10-30-2023 History of Presen t illness Narrative Reason for visit: Individual Counseling Video conference visit (Price.). Patient identity confirmed via name and date [...] reports Mom getting arrested and going to long-term for narcotics. CL expressed having a really [...] fully engage but client declined and stated, it's ok. Mental Status Exam: Appearance: appropriate Behavior: generally [...] neglected. The following goals were addressed today: I know it will never go away but I want to get better coping skills to manage Next Care Plan Review Date: 05/15/2024 F42.2 [...] Payer: Payor: [employer] MEDICAID / Plan: [employer] [facility] MEDICAID / Product Type: Medicaid / Care Gap Reviewed:: Annual Wellness visit Flu Vaccine Reminder: Reminder note to check Health Maintenance for items below Health Maintenance items due: HPV Vaccine(3 - 3-dose series) due on 03/25/2008 HPV Testing Never done Depression Assessment Never done Influenza Vaccine(1) Never done Navigation Signature: Peri Osman October 23, 2023 11:41 AM documented in this encounter [facility] 10-14-2023 Instructions Jaja Moss APRN.CNP - [...] it does not, call our office at [phone] for further instructions. documented in this encounter [facility] 10-14-2023 Procedure note Headache Center Follow-up Visit Current Preventive: botox Change needed for current preventive? No Current Abortive: Jobber - not working as well now Miscellaneous Patient Concerns: Rima: 2 headaches. [employer] worked for 1 migraine October: 20 headaches (had an increase in stress). Migraines would last 3 - 4 days, during the month of August Jobber ws not working as well November: 2 headaches - [employer] worked for 1 migraine Impression: Intractable chronic migraine without aura and without status migrainosus (primary encounter diagnosis) Matthew Daniel Reina has been previously approved for [...] Analgesic Diclofenac (Voltaren, Cataflam, Cambia) Hydrocodone/Acetaminophen (Vicodin, [place]) Anti-Anxiety Alprazolam (Xanax, Niravam) Diazepam (Valium) Anti-Migraine [...] Pulse 87 LMP (LMP Unknown) Patient name: Matthew Huang : 1990 ALLERGIES Allergen Reactions Onion [...] for migraine Informed Consent Consent Obtained: Written [place] Protocol A moment to CARE was completed [...] applicable Written Consent Obtained: Written LOT #: [id number] Expiration Date: Month: 2 Year: 2025 Injection Sites Left (Units) Left (Sites) Right (Units) Right (Sites) TOTAL (Units) Stock Hanger 5 1 5 1 10 Procerus Units: [...] Analgesic Diclofenac (Voltaren, Cataflam, Cambia) Hydrocodone/Acetaminophen (Vicodin, [place]) Anti-Anxiety Alprazolam (Xanax, Niravam) Diazepam (Valium) Anti-Convulsant Lamotrigine (Lamictal) Topiramate (Topamax, Trokendi XL, Qudexy) Anti-Depressant and Antipsychotic Quetiapine (Seroquel) Antiemetics Ondansetron Promethazine Anti-Migraine Rizatriptan (Maxalt) Sumatriptan (Imitrex, Sumavel) GEPANTS Rimegepant (Nurtec) Supplements CoQ10 Magnesium Riboflavin Other Medications Dexamethasone (Decadron) Methylprednisolone (Medrol) Prednisone Over the Counter Medications Acetaminophen (Tylenol) Ibuprofen (Advil, Motrin) Jaja Moss APRN.PATIENT SERVICES REPRESENTATIVE documented in this encounter [facility] 10-09-2023 History of Presen t illness Narrative Registered Nurse Visit 10/09/2023 10:00 AM Reason For Visit Health maintenance (care gap) screening, assessment, education, and referral. Interval History [...] to that. She is looking into a faith nearby that has a nursery program to [...] 13 months 10/09/2023 12:00 PM COUNSELING EXTENDED [facility] WhaleyW 60 min 10/23/2023 12:00 PM COUNSELING EXTENDED [facility] WhaleyW 60 min 11/30/2023 1:00 PM MEDICATION MANAGEMENT [facility] SA[facility] BW NURSE RUBÉN 20 min 11/30/2023 1:20 PM MEDICATION MANAGEMENT [facility] Herberth [place], 20 min documented in this encounter [employer] Phone: 10-01-2023 Miscellaneous Notes Patient verified by name and Relayed message from provider Sol Santos APRN.[place]IS on 10/01/2023 at 8:18 am. Patient verbalized understanding. Danielle Price LPN Please advise patient that urine culture has no bacteria growing, she may stop the abx. If her sx persist, advise her to f/u with [employer]OR [employer]EST [employer] or PCP. Thank you. documented in this encounter [facility] 09-29-2023 History of Presen t illness Narrative This note was created using NoteWriter. Subjective Matthew Huang is a 33 year old female [...] normal PMH - PAST MEDICAL HISTORY OF vascular [...] type - ICD9: 380.10, ICD10: H60.501 - [id number] 3.5 MG-10,000 UNIT/ML-1 % EAR DROPS,SUSP - [...] Robert Lord PA-C documented in this encounter [facility] 09-29-2023 Instructions Robert Lord PA-C - 09/29/2023 6:22 PM EST ASSESSMENT/PLAN: 1. Recurrent UTI - ICD9: 599.0, ICD10: N39.0 (primary diagnosis) - UA DIP, URINE (POC) - URINE CULTURE - we will contact you if culture results show that the antibiotic needs to be changed or discontinued. Otherwise results will be released to [employer]. If you do not have an active [employer] account, we will call with positive results [...] type - ICD9: 380.10, ICD10: H60.501 - [id number] 3.5 MG-10,000 UNIT/ML-1 % EAR DROPS,SUSP - [...] clean your ears. documented in this encounter [facility] 09-28-2023 History of Presen t illness Narrative Subjective Video conference visit (Price.). Patient identity confirmed via name and date [...] visit. Objective 05/07/2021 11:05 AM Height 5' 2 (157.5 cm) Mental Status Exam Appearance is [...] hours RN by calling main number for [email or web address]. 1. Bipolar disorder, current episode mixed, severe, [...] 13 months 10/09/2023 12:00 PM COUNSELING EXTENDED [facility] Whaley 60 min 10/23/2023 12:00 PM COUNSELING EXTENDED [facility] Whaley 60 min 11/30/2023 1:00 PM MEDICATION MANAGEMENT [facility] SA[facility] BW NURSE LUCI MONTANA 20 min 11/30/2023 1:20 PM MEDICATION MANAGEMENT [facility] Herberth Montana DO 20 min Reason for visit: Psychiatric Med Management Matthew presents Provider appointment Video conference visit (Price.). Patient identity confirmed via name and date of . Potential risks and benefits discussed with patient/guardian, who verbalized consent for telehealth encounter. Patient location: home. Subjective Interval history and patient concerns: My only problem is my anxiety right now, the OCD is not bad, no manic symptoms or depression. No new concerns currently. Caring for her [...] current episode mixed, severe, without psychotic features ([facility]) (primary encounter diagnosis) Comment: none Risk Assessment: Acute risk for harm to self/others: Low Plan Verified patient medications and allergies; updated patient medical history in medical record. Provided report to Provider regarding patient concerns and status. Safety plan: call office Nurse business hours/call 911/go to ER Upcoming appointments: Appointments for the next 13 months 09/28/2023 3:40 PM MEDICATION MANAGEMENT [facility] Herberth [place], DO 20 min 10/09/2023 12:00 PM COUNSELING EXTENDED [facility] Whaley 60 min 10/23/2023 12:00 PM COUNSELING EXTENDED [facility] Whaley 60 min documented in this encounter [facility] Work Phone: 09-24-2023 Nurse Note TH outreached to client regarding missed appt. CL stated baby was sick and had to go to dr visit. CL was informed of following appt 10/09/23 documented in this encounter [facility] Work Phone: 09-14-2023 Instructions Janay Anglin APRN.CNP [...] or worsening symptoms documented in this encounter [facility] 09-14-2023 History of Presen t illness Narrative Images from the original note were not included. This note was created using NoteWriter. Srinivasan Castro María Reina is a 33 year old female. Pt [...] normal PMH - PAST MEDICAL HISTORY OF vascular [...] for ongoing or worsening symptoms Janay Anglin APRN.PATIENT SERVICES REPRESENTATIVE documented in this encounter [facility] 09-07-2023 History of Presen t illness Narrative Associated Problem(s): Bipolar affective disorder, current episode mixed ([facility]) Increase risperdal to 2 mg po qhs for increased mood stability. Subjective Video conference visit (Price.). Patient identity confirmed via name and date of . Potential risks and benefits discussed with patient/guardian, who verbalized consent for telehealth encounter. Patient location: home. Chief Complaint: Psychiatric Med Management HPI Matthew Huang is a 33 year old Adult [...] a book on overcoming intrusive thoughts from [employer]. Has been finding this helpful in self-management [...] visit. Objective 05/07/2021 11:05 AM Height 5' 2 (157.5 cm) Mental Status Exam Appearance is [...] hours RN by calling main number for [email or web address]. 1. Bipolar disorder, current episode mixed, severe, [...] partial remission, most recent episode unspecified type ([facility]) - lamoTRIgine (LAMICTAL) 150 mg tablet; Take [...] 13 months 09/11/2023 12:00 PM COUNSELING STANDARD [facility] Whaley 45 min 09/18/2023 12:00 PM COUNSELING EXTENDED [facility] Whaley 60 min 09/25/2023 12:30 PM COUNSELING EXTENDED [facility] Whaley 60 min 09/28/2023 3:20 PM MEDICATION MANAGEMENT [facility] SA[facility] NURSE LUCI MONTANA 20 min 09/28/2023 3:40 PM MEDICATION MANAGEMENT [facility] Herberth Montana DO 20 min Reason for visit: Psychiatric Med Management Matthew presents before Provider appointment Video conference visit ([employer]). Patient identity confirmed via name and date of . Potential risks and benefits discussed with patient/guardian, who verbalized consent for telehealth encounter. Patient location: home. Subjective Interval history and patient concerns: I had a traumatic event happen where my child was missing but then she was found, but it scared me and now I am having intrusive thoughts again and panic attacks and nightmares. Reports high anxiety,OCD,intrusive thoughts,panic attacks, no S/I. [...] current episode mixed, severe, without psychotic features ([facility]) (primary encounter diagnosis) Comment: none Risk Assessment: Acute risk for harm to self/others: Plan Verified patient medications and allergies; updated patient medical history in medical record. Provided report to Provider regarding patient concerns and status. Safety plan: can call office Nurse business hours, or call 911/go to ER Upcoming appointments: Appointments for the next 13 months 08/24/2023 3:20 PM MEDICATION MANAGEMENT [facility] Herberth Montana DO 20 min 08/28/2023 12:00 PM COUNSELING STANDARD [facility] Whaley 45 min 09/04/2023 12:00 PM COUNSELING STANDARD [facility] Whaley 45 min 09/11/2023 12:00 PM COUNSELING STANDARD [facility] Dinh 45 min documented in this encounter [facility] [...] 10:00 AM Reason For Visit Health maintenance (care gap) screening, assessment, education, and referral. Interval History [...] 13 months 09/11/2023 12:00 PM COUNSELING STANDARD [facility] Angela Dinh, [employer] 45 min 09/18/2023 12:00 PM COUNSELING EXTENDED [facility] Angela Dinh, [employer] 60 min 09/25/2023 12:30 PM COUNSELING EXTENDED [facility] Angela Dinh [employer] 60 min 09/28/2023 3:20 PM MEDICATION MANAGEMENT [facility] SA[facility] BW NURSE RUBÉN 20 min 09/28/2023 3:40 PM MEDICATION MANAGEMENT [facility] Herberth [place], DO 20 min documented in this encounter [facility] Work Phone: 08-14-2023 History of Presen t illness Narrative Reason for visit: Individual Counseling Video conference visit ([employer]). Patient identity confirmed via name and date [...] behaviors. The following goals were addressed today: I know it will never go away but I want to get better coping skills to manage Next Care Plan Review Date: 05/15/2024 F41.1 Generalized anxiety disorder (primary encounter diagnosis) Functional Status: Minimal Improvement Therapeutic Intervention(s) Applied: Reflective listening and reassurance Acute risk for harm to self/others: Low C-SSRS Plan CL will explore churches/spiritual center within [facility] and youth programs to engage in. Next [...] in this encounter [facility] Work Phone: 08-07-2023 History of Presen t illness Narrative Reason for visit: Individual Counseling Video conference visit (Price.). Patient identity confirmed via name and date [...] not wanting Dad to watch kids because they aren't use to him and not wanting to cause trauma from crying too much or getting upset. [...] transference. The following goals were addressed today: I know it will never go away but I want to get better coping skills to manage and I will practice self-care daily to [...] will reach out to provided resources [facility] and local school districts. [...] Health Work Phone: 07-15-2023 Instructions Jaja Moss APRN.PATIENT SERVICES REPRESENTATIVE - 07/15/2023 1:58 PM EDT AFTER VISIT [...] you to use. documented in this encounter [facility] 07-15-2023 Procedure note New Onabotulinum Toxin [...] Pulse 79 LMP (LMP Unknown) Patient name: Matthew Huang : 1990 ALLERGIES Allergen Reactions Onion [...] for migraine Informed Consent Consent Obtained: Written [place] Protocol A moment to CARE was completed [...] applicable Written Consent Obtained: Written LOT #: [id number] Expiration Date: Month: 2 Year: 2025 Injection Sites Left (Units) Left (Sites) Right (Units) Right (Sites) TOTAL (Units) Stock Hanger 5 1 5 1 10 Procerus Units: [...] Analgesic Diclofenac (Voltaren, Cataflam, Cambia) Hydrocodone/Acetaminophen (Vicodin, [place]) Anti-Anxiety Alprazolam (Xanax, Niravam) Diazepam (Valium) Anti-Convulsant Lamotrigine (Lamictal) Topiramate (Topamax, Trokendi XL, Qudexy) Anti-Depressant and Antipsychotic Quetiapine (Seroquel) Antiemetics Ondansetron Promethazine Anti-Migraine Rizatriptan (Maxalt) Sumatriptan (Imitrex, Sumavel) GEPANTS Rimegepant (Nurtec) Supplements CoQ10 Magnesium Riboflavin Other Medications Dexamethasone (Decadron) Methylprednisolone (Medrol) Prednisone Over the Counter Medications Acetaminophen (Tylenol) Ibuprofen (Advil, Motrin) Jjaa Moss APRN.PATIENT SERVICES REPRESENTATIVE documented in this encounter [facility] 07-15-2023 History of Presen t illness [...] of repeated traits. TH explored role of saw man in relationships and correlation with core values and attachment. TH educated CL about attachment theory and normalizing behaviors that were present in childhood. The following goals were addressed today: I know it will never go away but I want to get better coping skills to manage Next Care Plan Review Date: 05/15/2024 F41.1 Generalized anxiety disorder (primary encounter diagnosis) F42.9 Obsessive-compulsive disorder, unspecified type Functional Status: Moderate Improvement Therapeutic Intervention(s) Applied: Relationship building skills and Reflective listening and reassurance Acute risk for harm to self/others: Low C-SSRS Plan CL will focus on improving self care activities to reduce stressors and reduced feeling of being overwhelmed. CL will work on own your own thoughts and attachment style Next appointment with this [...] or as directed. documented in this encounter [facility] 07-14-2023 History of Presen t illness Narrative This note was created using [employer]. Subjective Matthew Huang is a 33 year old female. [...] other concerning symptoms documented in this encounter [facility] 07-10-2023 History of Presen t illness Narrative Reason for visit: Individual Counseling Video conference visit ([email or web address]). Patient identity confirmed via name and date of . Potential risks and benefits discussed with patient/guardian, who verbalized consent for telehealth encounter. Patient location: home. Subjective CL started conversation with I've done something bad and posted on social media about prior [...] options. The following goals were addressed today: I know it will never go away but I want to get better coping skills to manage and I want to resolve my own trauma and not project my feelings Next Care Plan Review Date: 05/15/2024 F43.10 [...] this provider: 07/17/2023 documented in this encounter [facility] Work Phone: 07-06-2023 History of Presen t illness Narrative Associated Problem(s): Obsessive-compulsive disorder, unspecified Has been able to manage intrusive thoughts better lately. Subjective Video conference visit (Price.). Patient identity confirmed via name and date [...] a book on overcoming intrusive thoughts from [employer]. Has been finding this helpful in self-management of OCD/chronic obsessive and intrusive thoughts. 05/18/23: Pt was seen by RN since [...] visit. Objective 05/07/2021 11:05 AM Height 5' 2 (157.5 cm) There is no height or [...] hours RN by calling main number for [email or web address]. 1. Generalized anxiety disorder Overview: The intrusive [...] partial remission, most recent episode unspecified type ([facility]) - lamoTRIgine (LAMICTAL) 150 mg tablet; Take [...] 13 months 07/24/2023 12:00 PM COUNSELING STANDARD [facility] Crystal Allegra, JUNIOR ASSISTANT MANAGER 45 min 07/31/2023 12:00 PM COUNSELING STANDARD [facility] Crystal Allegra, JUNIOR ASSISTANT MANAGER 45 min 08/07/2023 12:00 PM COUNSELING EXTENDED [facility] Crystal Allegra, JUNIOR ASSISTANT MANAGER 60 min 08/14/2023 12:00 PM COUNSELING EXTENDED [facility] Crystal Allegra, JUNIOR ASSISTANT MANAGER 60 min 08/24/2023 3:00 PM MEDICATION MANAGEMENT [facility] SA209 NURSE LUCI MONTANA 20 min 08/24/2023 3:20 PM MEDICATION MANAGEMENT [facility] Herberth Montana DO 20 min documented in this encounter [facility] Work Phone: 07-06-2023 History of Presen t illness Narrative Reason for visit: Follow Up (Client to speak with nurse and provider for follow up appointment and medication management. ) Matthew presents prior to their psychiatry provider visit [...] F31.61 Bipolar disorder, current episode mixed, mild ([facility]) F42.9 Obsessive-compulsive disorder, unspecified type Risk Assessment: Acute risk for harm to self/others: Low Plan Verified patient medications and allergies; updated patient medical history in medical record. Provided report to Dr. Montana regarding patient concerns and status. Maintain follow up appointments as scheduled. Upcoming appointments: Appointments for the next 13 months 07/06/2023 1:20 PM MEDICATION MANAGEMENT [facility] Herberth Montana, DO 20 min 07/10/2023 1:00 PM COUNSELING STANDARD [facility] Angela Dinh, JUNIOR ASSISTANT MANAGER 45 min 07/17/2023 12:00 PM COUNSELING STANDARD [facility] Angela Dinh, JUNIOR ASSISTANT MANAGER 45 min 07/24/2023 12:00 PM COUNSELING STANDARD [facility] Angela Dinh, JUNIOR ASSISTANT MANAGER 45 min 07/31/2023 12:00 PM COUNSELING STANDARD [facility] Angela Dinh, JUNIOR ASSISTANT MANAGER 45 min documented in this encounter [facility] Work Phone: 07-02-2023 History of Presen t illness Narrative Reason for visit: Individual Counseling Video conference visit (Price.). Patient identity confirmed via name and date of . Potential risks and benefits discussed with patient/guardian, who verbalized consent for telehealth encounter. Patient location: other: CL was in car at [email or web address] . Subjective CL stated having [...] to manage symptoms by attending all dr appts. TH validated CL feelings and provided support. [...] options. The following goals were addressed today: I know it will never go away but I want to get better coping skills to manage and I want to resolve my own trauma and not project my feelings Next Care Plan Review Date: 05/15/2024 F42.9 Obsessive-compulsive disorder, unspecified type (primary encounter diagnosis) F43.10 Post traumatic stress disorder Functional Status: Moderate Improvement Therapeutic Intervention(s) Applied: Reflective listening and reassurance and Psychoeducation Acute risk for harm to self/others: Low C-SSRS Plan CL will work on self care and using compassionate thinking. CL will complete are you self compassionate and explore at next appt. Next appointment with this provider: 07/10/23 documented in this encounter [facility] Work Phone: 07-01-2023 History of Presen t illness Narrative Chief Complaint Patient presents with: Sinus Problem I have communicated my name and active licensure. The patient's identity and physical location were verified at the time of this visit. Either the patient or their legal customer service representative has been informed of the risks [...] normal PMH - PAST MEDICAL HISTORY OF vascular [...] which included preparing to see the patient, [id number] patient care, completing clinical documentation, obtaining and/or reviewing separately obtained history, performing a medically appropriate examination, counseling and educating the patient/family/caregiver, and ordering medications, tests, or procedures. Sabina Barrinetos MD documented in this encounter [facility] 06-25-2023 History of Presen t illness Narrative Reason for visit: Individual Counseling Video conference visit ([email or web address]). Patient [...] and hitting. 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 Objective CL was engaged and alert. Mental Status Exam: Appearance: appropriate Behavior: generally relaxed and engaged, cooperative Speech: unremarkable Mood: neutral Affect: appropriate for circumstance Thought content: unremarkable Perception: unremarkable Insight: appropriate Judgment: appropriate Assessment TH and cl explored concerns about daughters behaviors. TH normalized toddler behaviors and eduacted about developmental normalcies. TH suggested to talk to tenon machine operator for further concerns. TH validated CL feelings [...] information. The following goals were addressed today: I know it will never go away but I want to get better coping skills to manage and I will practice self-care daily to decrease and prevent anxiety. Next Care Plan Review Date: 05/15/2024 F41.1 Generalized anxiety disorder (primary encounter diagnosis) F31.63 Bipolar disorder, current episode mixed, severe, without psychotic features ([facility]) Functional Status: Minimal Improvement Therapeutic Intervention(s) Applied: Reflective listening and reassurance and Psychoeducation Acute risk for harm to self/others: Low C-SSRS Plan CL will limit social media outlets for information and refer to professional medical resources for information. Next appointment with this provider: 07/02/2023 documented in this encounter [email or web address] Work Phone: 06-09-2023 Instructions Jaja Moss APRN.[place] - 06/09/2023 1:31 PM EDT - we will apply for Botox for Chronic Migraine - continue nurtec as needed - to break current headache cycle: toradol 1 tablet four times a day for 5 days OR if the headache breaks for 24 hours you can stop it documented in this encounter [facility] 06-09-2023 History of Presen t illness Narrative [facility] - Follow up Visit Last Visit: 10/28/2022, Jaja Moss APRN.PATIENT SERVICES REPRESENTATIVE Accompanied by: Self Primary Problem List: ACTIVE [...] Headache Impression and Plan from last visit: Matthew Huang is a 32 year old year [...] Analgesic Diclofenac (Voltaren, Cataflam, Cambia) Hydrocodone/Acetaminophen (Vicodin, [place]) PLAN: HEADACHE MANAGEMENT: (You are the primary [...] Analgesic Diclofenac (Voltaren, Cataflam, Cambia) Hydrocodone/Acetaminophen (Vicodin, [place]) Anti-Anxiety Alprazolam (Xanax, Niravam) Diazepam (Valium) Anti-Convulsant [...] Patent intracranial circulation. No aneurysm is identified. Padder Cushion: PSCB Transcribe Date/Time: Jan 22 2021 8:29P Dictated [...] and reactive. Sensation: intact. Gait: normal-based. IMPRESSION: Matthew Huang is a 33 year old year [...] Analgesic Diclofenac (Voltaren, Cataflam, Cambia) Hydrocodone/Acetaminophen (Vicodin, [place]) Anti-Anxiety Alprazolam (Xanax, Niravam) Diazepam (Valium) Anti-Migraine [...] no active infection at proposed injection site Matthew A Reina has been previously approved for [...] Analgesic Diclofenac (Voltaren, Cataflam, Cambia) Hydrocodone/Acetaminophen (Vicodin, [place]) Anti-Anxiety Alprazolam (Xanax, Niravam) Diazepam (Valium) Anti-Migraine [...] which included preparing to see the patient, [id number] patient care, completing clinical documentation, obtaining and/or reviewing separately obtained history, performing a medically appropriate examination, counseling and educating the patient/family/caregiver, and ordering medications, tests, or procedures. All questions answered. The patient has my contact information and my chart sign up information. Jaja Moss APRN.[place] documented in this encounter [facility] 06-02-2023 History of Presen t illness [...] confident about intrusive thoughts and knowing that I would never hurt the babies. Objective CL was 20 minutes late to [...] suggestions. The following goals were addressed today: I know it will never go away but I want to get better coping skills to manage and I want to take my medication everday and monitoring symptoms Next Care Plan Review Date: 05/15/2024 F31.63 Bipolar disorder, current episode mixed, severe, without psychotic features ([facility]) (primary encounter diagnosis) Functional Status: Minimal Improvement Therapeutic Intervention(s) Applied: Symptom management, skill building and Enhancing coping skills Acute risk for harm to self/others: Low CSSR-S Plan CL will complete overcoming self sabotaging thoughts and explore at next session. Next appointment with this provider: 06/11/2023 documented in this encounter [employer] Phone: 05-29-2023 History of Presen t illness Narrative Reason for visit: Individual Counseling Video conference visit (Price.). Patient identity confirmed via name and date of . Potential risks and benefits discussed with patient/guardian, who verbalized consent for telehealth encounter. Patient location: home. Subjective CL expressed having significant increase in OCD feelings and intrusive thoughts. 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 CL reported watching social media about ADHD [...] importance of having more than role of parent to feel more well rounded overall. TH discussed using grounding techniques to help control intrusive thoughts by focusing being in the present moment. . TH educated cL about criteria for bi-polar ll disorder and how symptoms can overlap with symptoms of other diagnosis including ADHD. The following goals were addressed today: I know it will never go away but I want to get better coping skills to manage and I will identify and balance thoughts that trigger my anxiety (see measurable component below): Next Care Plan Review Date: 05/15/2024 F31.81 Bipolar II disorder ([facility]) (primary encounter diagnosis) Functional Status: No Change [...] telehealth encounter. Reason For Visit Health maintenance (care gap) screening, assessment, education, and referral. Interval History [...] 13 months 06/02/2023 11:00 AM COUNSELING EXTENDED [facility] BRITTANIE Whaley 60 min 06/05/2023 9:00 AM NURSE VISIT SHORT [facility] Tessa Dill RN 20 min 06/11/2023 11:00 AM COUNSELING EXTENDED [facility] BRITTANIE Whaley 60 min 07/06/2023 1:20 PM MEDICATION MANAGEMENT [facility] Herberth Montana, 20 min documented in this encounter [employer] Phone: 05-25-2023 Miscellaneous Notes The following approved [...] daily as needed (migraine). [facility] Name: [facility] documented in this encounter [facility] 05-18-2023 History of Presen t illness Narrative Reason for visit: Follow Up Matthew presents prior to their psychiatry provider visit to evaluate medication effectiveness, update medical history, and review overall treatment status. Subjective Interval history and patient concerns: Denies depression,S/I,manic symptoms, AVH, paranoia or delusional thoughts. I still have the same obsessive compulsive behaviors that are listed in my chart. Patient does not elaborate. According to last [...] current episode mixed, severe, without psychotic features ([facility]) (primary encounter diagnosis) Comment: none Risk Assessment: Acute risk for harm to self/others: Low Plan Verified patient medications and allergies; updated patient medical history in medical record. Provided report to Provider regarding patient concerns and status. Crisis instructed to call 911,go to ER,call office Nurse during business hours Upcoming appointments: Appointments for the next 13 months 05/29/2023 11:05 AM COUNSELING EXTENDED BRITT[facility] Calhoun 60 min 06/02/2023 11:00 AM COUNSELING EXTENDED [facility] Angela Dinh, JUNIOR ASSISTANT MANAGER 60 min 06/11/2023 11:00 AM COUNSELING EXTENDED [facility] Angela Dinh, JUNIOR ASSISTANT MANAGER 60 min documented in this encounter [facility] Work Phone: 05-18-2023 History of Presen t [...] partial remission, most recent episode unspecified type ([facility]) - lamoTRIgine (LAMICTAL) 150 mg tablet; Take [...] hours RN by calling main number for [email or web address]. Psychotherapy here at and will also continue [...] months 05/29/2023 10:00 AM NURSE VISIT SHORT [facility] Tessa Dill RN 20 min 05/29/2023 11:05 AM COUNSELING EXTENDED [facility] BRITTANIE Whaley 60 min 06/02/2023 11:00 AM COUNSELING EXTENDED [facility] BRITTANIE Whaley 60 min 06/11/2023 11:00 AM COUNSELING EXTENDED [facility] BRITTANIE Whaley 60 min 07/06/2023 1:20 PM MEDICATION MANAGEMENT [facility] Herberth Montana DO 20 min documented in this encounter [email or web address] Work Phone: 05-15-2023 History of Presen t illness Narrative Reason for visit: Individual Counseling Video conference visit (Price.). Patient identity confirmed via name and date of . Potential risks and benefits discussed with patient/guardian, who verbalized consent for telehealth encounter. Patient location: home. Subjective CL expressed having concerns for daughter recent allergic reaction and not being able to get into an triage register nurse till following month. CL reflected on past few weeks and doctor visits. CL expressed loving children and wanting to good Mom and having difficult time incorporating able ate [...] plan. The following goals were addressed today: I know it will never go away but I want to get better coping skills to manage Next Care Plan Review Date: 05/15/2024 F41.1 Generalized anxiety disorder (primary encounter diagnosis) F43.10 Post traumatic stress disorder Functional Status: Minimal Improvement Therapeutic Intervention(s) Applied: Symptom management, skill building and Challenging core beliefs Acute risk for harm to self/others: Low CSSR-S Plan CL will try to incorporate self care into schedule. CL will complete using compassionate thinking sent via mail. Next appointment with this provider: 05/29/23 documented in this encounter [email or web address] Work Phone: 04-27-2023 History of Presen t [...] not available) Reason For Visit Health maintenance (care gap) screening, assessment, education, and referral. Interval History and Patient Concerns Client needs to cancel provider appt today due to son having dr appt. Able to do visit with RN now [...] current episode mixed, severe, without psychotic features ([facility]) (Primary) 2. Generalized anxiety disorder Overview: The [...] months 04/27/2023 12:40 PM NURSE VISIT SHORT [facility] Tessa Dill RN 20 min 04/27/2023 1:00 PM MEDICATION MANAGEMENT [facility] Herberth Montana DO 20 min 04/30/2023 1:00 PM COUNSELING EXTENDED [facility] BRITTANIE Whaley 60 min 05/07/2023 1:00 PM COUNSELING EXTENDED [facility] BRITTANIE Whaley 60 min 05/15/2023 10:00 AM COUNSELING EXTENDED [facility] Angela Dinh, JUNIOR ASSISTANT MANAGER 60 min 05/18/2023 1:00 PM NURSE VISIT SHORT [facility] SA209 BW NURSE RUBÉN 20 min 05/18/2023 1:20 PM MEDICATION MANAGEMENT [facility] Gunter Rubén, DO 20 min documented in this encounter [facility] Work Phone: 04-27-2023 History of Presen t illness Narrative Registered Nurse Visit 04/27/2023 11:00 AM Telehealth Appointment? Telephone Telephone Consent Telephone visit. Patient identity confirmed via name and date of . Potential risks and benefits discussed with patient/guardian, who verbalized consent for telehealth encounter. (video not available) Reason For Visit Health maintenance (care gap) screening, assessment, education, and referral. Interval History [...] months 04/27/2023 12:40 PM NURSE VISIT SHORT [facility] Tessa Dill RN 20 min 04/27/2023 1:00 PM MEDICATION MANAGEMENT [facility] Herberth Montana, DO 20 min 04/30/2023 1:00 PM COUNSELING EXTENDED [facility] Angela Dinh, JUNIOR ASSISTANT MANAGER 60 min 05/07/2023 1:00 PM COUNSELING EXTENDED [facility] Angeal Dinh, JUNIOR ASSISTANT MANAGER 60 min 05/15/2023 10:00 AM COUNSELING EXTENDED [facility] Angela Dinh, JUNIOR ASSISTANT MANAGER 60 min 05/18/2023 1:00 PM NURSE VISIT SHORT [facility] SA209 BW NURSE RUBÉN 20 min 05/18/2023 1:20 PM MEDICATION MANAGEMENT [facility] Herberth Montana, DO 20 min documented in this encounter [employer] Phone: 04-23-2023 History of Presen t illness Narrative Reason for visit: Individual Counseling Video conference visit ([email or web address]). Patient identity confirmed via name and date [...] TH asked CL to explore statement of I don;t know why new friend wants to be friends. TH and CL explored core beliefs and [...] PTSD symptoms Next Care Plan Review Date: Generalized anxiety disorder (primary encounter diagnosis) Functional [...] Appointment? Telephone Reason For Visit Health maintenance (care gap) screening, assessment, education, and referral. Interval History [...] current episode mixed, severe, without psychotic features ([facility]) (Primary) 2. Generalized anxiety disorder Overview: The [...] 13 months 04/07/2023 1:00 PM COUNSELING EXTENDED [facility] BRITTANIE Whaley 60 min 04/27/2023 12:40 PM NURSE VISIT SHORT [facility] SA209 BW NURSE LUCI [place] 20 min 04/27/2023 1:00 PM MEDICATION MANAGEMENT [facility] Herberth Montana DO 20 min documented in this encounter [facility] Work Phone: 03-23-2023 History of Presen t illness Narrative thSubjective Telephone visit. Patient identity confirmed via name and date of . Potential risks and benefits discussed with patient/guardian, who verbalized consent for telehealth encounter. Patient location: home. Chief Complaint: HPI Matthew Huang is a 33 year old Adult [...] partial remission, most recent episode unspecified type ([facility]) (Primary) - lamoTRIgine (LAMICTAL) 150 mg tablet; [...] hours RN by calling main number for [email or web address]. Psychotherapy here at and will also continue [...] 13 months 03/31/2023 11:00 AM COUNSELING EXTENDED [facility] BRITTANIE Whaley 60 min 04/27/2023 1:00 PM MEDICATION MANAGEMENT [facility] Herberth Montana DO 20 min documented in this encounter [email or web address] Work Phone: 02-27-2023 History of Presen t illness Narrative Registered Nurse Visit 02/27/2023 9:00 AM Telehealth Appointment? Telephone Telephone Consent Telephone visit. Patient identity confirmed via name and date of . Potential risks and benefits discussed with patient/guardian, who verbalized consent for telehealth encounter. (video not available) Reason For Visit Health maintenance (care gap) screening, assessment, education, and referral. Interval History and Patient Concerns Client reports she is happy with her current medication and does not want any changes to it. Her son had kidney surgery and is home now so she is relieved. Anxiety is still high. Reports she danielle has high anxiety since she was 16 yrs. old. Mood is very good. Denies depression symptoms. Denies suicidal thoughts. Reports her intrusive thoughts are passing thoughts and she is able to go about [...] current episode mixed, severe, without psychotic features ([facility] [facility]) (Primary) Care Planning Additional Plan: Patient education provided this visit: medication, symptoms, coping, side effects Routed encounter note to Dr. Montana Follow up as scheduled Call sooner if needed Continue counseling Reviewed upcoming appointments: Appointments for the next 13 months 03/10/2023 1:00 PM COUNSELING EXTENDED [facility] BRITTANIE Whaley 60 min 03/23/2023 10:20 AM NURSE VISIT SHORT [facility] SA209 BW NURSE LUCI MONTANA 20 min 03/23/2023 10:40 AM MEDICATION MANAGEMENT [facility] Herberth Montana DO 40 min documented in this encounter [facility] Work Phone: 02-20-2023 History of Presen t illness Narrative Registered Nurse Visit 02/20/2023 9:00 AM Telehealth Appointment? Telephone Telephone Consent Telephone visit. Patient identity confirmed via name and date of . Potential risks and benefits discussed with patient/guardian, who verbalized consent for telehealth encounter. (video unavailable) Reason For Visit Health maintenance (care gap) screening, assessment, education, and referral. Interval History and Patient Concerns Client reports her anxiety has been up because her son is hospitalized at [facility] awaiting kidney surgery. Client is staying there with him and has had little sleep or time to get meals. Client reports her Risgeoffreydal has been working very well. She is [...] current episode mixed, severe, without psychotic features ([facility]) (Primary) 2. Generalized anxiety disorder Overview: The [...] Encourage client to ask for help with [facility] and while at hospital Follow up 1 week with RN Call sooner if needed Make time for sleep and don't skip meals Reviewed upcoming appointments: Appointments for the next 13 months 02/27/2023 9:00 AM NURSE VISIT SHORT [facility] Tessa Dill RN 20 min 03/06/2023 9:00 AM NURSE VISIT SHORT [facility] Tessa Dill RN 20 min 03/10/2023 1:00 PM COUNSELING EXTENDED [facility] BRITTANIE Whaley 60 min 03/16/2023 3:20 PM MEDICATION MANAGEMENT [facility] Herberth Montana DO 40 min documented in this encounter [facility] Work Phone: 02-02-2023 History of Presen t illness Narrative thSubjective Telephone visit. Patient identity confirmed via name and date of . Potential risks and benefits discussed with patient/guardian, who verbalized consent for telehealth encounter. Patient location: home. Chief Complaint: Per nursing, No recent hosp or ER visits. Sleep [...] recently. No s/I, h/I, plan or intent. HPI Matthew Huang is a 33 year old female [...] states she noticed she was feeling manic. [place] lots of energy, hyperactive, talking more and faster. No delusions, disinhibition/risk-taking, etc. Had more intrusive thoughts and also noticed that she was feeling loopy when she was also taking her migraine [...] has been easily resist them (such as don't go near Ros[place], what if you hurt her - she will resist the compulsion easily). [...] primary care provider on file. Seen at [facility] reportedly Objective No vitals taken today No [...] partial remission, most recent episode unspecified type ([facility]) (Primary) - lamoTRIgine (LAMICTAL) 150 mg tablet; [...] hours RN by calling main number for [email or web address]. Psychotherapy here at and will also continue [...] months 02/20/2023 9:00 AM NURSE VISIT SHORT [facility] Tessa Dill RN 20 min 03/16/2023 3:20 PM MEDICATION MANAGEMENT [facility] Herberth Montana DO 40 min documented in this encounter [email or web address] Work Phone: 02-02-2023 History of Presen t illness Narrative Reason for visit: Follow Up Matthew presents prior to their psychiatry provider visit [...] current episode mixed, severe, without psychotic features ([facility]) (primary encounter diagnosis) Risk Assessment: Acute risk for harm to self/others: Low Plan Verified patient medications and allergies; updated patient medical history in medical record. Provided report to Dr Montana regarding patient concerns and status. Upcoming appointments: Appointments for the next 13 months 02/02/2023 3:00 PM MEDICATION MANAGEMENT [facility] LUCI Montana DO 40 min documented in this encounter [facility] Work Phone: 01-27-2023 History of Presen t illness Narrative Pt. Tolerated Hepatitis B Vaccine well, no adverse reaction, no swelling,bruising, or redness at the injection site. Images from the original note were not included. Bekahmelyssa King [facility] Internal Medicine OUTPATIENT VISIT DATE: [...] x1 Meds: Medications reviewed and updated in [facility]. OTC supplements/herbals: none Allergies: Reviewed and upated Social: Alcohol: none Tobacco/nicotine use: never smoked cigarettes Vaping/E-cigarettes: No Drugs: There is no history of recreational substance use. Sexual History: sexually active w/male partner Occupation: [employer] Family hx: Patient does not [...] 20 MG CAPSULE,DELAYED RELEASE Maile Beaver MD [facility] 01/27/2023 1:10 PM documented in this encounter [facility] 01-27-2023 Instructions Maile Beaver MD - [...] esophageal reflux, by following the tips above. Nxzn-zvb-dqslmxe liquid antacids can also help in treating [...] involves blocking acid production in the stomach. Orwd-lsf-clvrsvy medicines, such as Tums , Rolaids , [...] need surgery to correct the disorder. References [employer]. Acid Reflux Accessed 06/16/2016. [place] [employer] Asthma and Immunology. Gastroesophageal Reflux Disease (GERD) Accessed 06/16/2016. National [place] of Diabetes and Digestive and Kidney Diseases. Gastroesophageal Reflux (ANTONIO) and Gastroesophageal Reflux Disease (GERD) Accessed 06/16/2016. Copyright 6283-5063 The [facility]. All rights reserved This information is provided by the [facility] and is not intended to replace themedical advice of your doctor or health care provider. Please consult your health care provider for advice about a specific medical condition. For additional health information, please contact the Center for Consumer Health Information at the [facility] or toll-free extension [phone]. If you prefer, you may visit [email or web address] or [email or web address]. This document was last reviewed on: 2016 documented in this encounter [facility] 01-06-2023 Instructions oKrina Nina APRN.[facility] - 01/06/2023 3:19 PM EST ASSESSMENT/PLAN: 1. [...] or worsening symptoms. documented in this encounter [facility] 01-06-2023 History of Presen t illness Narrative Images from the original note were not included. [facility] Care Visit Patient Name: Matthew Huang Primary Care Physician: No primary care provider on file. Service Date: 01/06/2023 Service Time: 2:58 PM Patient presents with: Ear Pain: Rt ear,still can't hear x5 days,Lt ear x2 days SUBJECTIVE: Matthew is an pleasant otherwise well 32 year [...] normal PMH - PAST MEDICAL HISTORY OF vascular [...] tenderness or frontal sinus tenderness. Mouth/Throat: Lips: [place]. Mouth: Mucous membranes are moist. Pharynx: Oropharynx [...] Time: 2:58 PM documented in this encounter [facility] 01-05-2023 History of Presen t illness Narrative Subjective Telephone visit. Patient identity confirmed via name and date of . Potential risks and benefits discussed with patient/guardian, who verbalized consent for telehealth encounter. Patient location: home. Chief Complaint: Per nursing, Patient denies depression, reports increased anxiety rated 7/10. Patient reports no issues with sleep/appetite. Denies any issues with focusing/concentrating on tasks. Denies SI/HI, AVH. No recent hospitalizations. Patient reports current medication regimen is effective-patient stopped taking Buspar 10 mg due to it causing increased abigail and racing thoughts . Patient voiced no other concerns during today's visit. KIANNA Matthew Daniel Reina is a 32 year old female here today for follow-up med management visit. Pt started the buspar after last visit and states she noticed she was feeling manic. [place] lots of energy, hyperactive, talking more and faster. No delusions, disinhibition/risk-taking, etc. Had more intrusive thoughts and also noticed that she was feeling loopy when she was also taking her migraine [...] has been easily resist them (such as don't go near [place], what if you hurt her - she will resist the compulsion easily). [...] delivery, she had some mild post- blues (Very mild) and then mood had been really stable and her mental health Was really good, the best it had been since I had Rosita. Has had a lot of intrusive fears/thoughts. [...] partial remission, most recent episode unspecified type ([facility]) - lamoTRIgine (LAMICTAL) 150 mg tablet; Take [...] hours RN by calling main number for [email or web address]. Psychotherapy here at and will also continue [...] 13 months 02/02/2023 3:00 PM MEDICATION MANAGEMENT [facility] Herberth Montana DO 20 min documented in this encounter [employer] Phone: 01-05-2023 History of Presen t illness Narrative Reason for visit: No chief complaint on file. Matthew presents prior to their psychiatry provider visit [...] current episode mixed, severe, without psychotic features ([facility]) (primary encounter diagnosis) Risk Assessment: Acute risk for harm to self/others: Low Plan Verified patient medications and allergies; updated patient medical history in medical record. Provided report to Dr. Montana regarding patient concerns and status. Reviewed Safety Plan: Call 911 or go to ED if in crisis. Advised of availability of after hours RN by calling main number for [email or web address]. Upcoming appointments: Appointments for the next 13 months 01/05/2023 2:20 PM MEDICATION MANAGEMENT [facility] Herberth Montana DO 40 min documented in this encounter [facility] Work Phone: 01-03-2023 Instructions Angelic Gan PA-C - 01/03/2023 12:33 PM EST Push fluids Gaines diet Follow up in 3-5 days with [...] order a hearing test (performed by an electronic warfare technical) for a patient who has persistent ear [...] doctor about your medical history and any vcdz-prh-asnqsds and prescription medications that you are currently [...] back into the Eustachian tubes. Allowing an infant to hold his or her own bottle [...] to ear infections. An exam by an men's designer, and even surgery to remove the adenoids [...] certain foods or liquids to avoid? Which zyqf-tms-obhgrmr medications, such as pain relievers, do you recommend? Which symptoms should I report? References National [place] on Deafness and Other Communication Disorders. Ear Infections in Children Accessed 10/23/2015. Centers for Disease Control and Prevention. Get Smart: Know When Antibiotics Work Accessed 10/23/2015. [place] [employer] Otolaryngology-Head and Neck Surgery. Middle Ear Infection (Chronic Otitis Media) and Hearing Loss Accessed 10/23/2015. Copyright 1044-1862 [facility]. All rights reserved documented in this encounter [facility] 01-03-2023 History of Presen t illness Narrative SUBJECTIVE: Matthew Huang is an 32 year old female [...] normal PMH - PAST MEDICAL HISTORY OF vascular [...] and side effects. documented in this encounter [facility] 01-01-2023 History of Presen t illness Narrative Registered Nurse Visit 01/01/2023 10:00 AM Telehealth Appointment? Telephone Telephone Consent Telephone visit. Patient identity confirmed via name and date of . Potential risks and benefits discussed with patient/guardian, who verbalized consent for telehealth encounter. (client driving) Reason For Visit Health maintenance (care gap) screening, assessment, education, and referral. Interval History and Patient Concerns Client reports the 10mg dose of Buspar was making her loopy with her migraine medicine, so she kept [...] current episode mixed, severe, without psychotic features ([facility]) (Primary) 2. Generalized anxiety disorder Overview: The [...] months 01/05/2023 2:00 PM NURSE VISIT SHORT [facility] SA209 NURSE LUCI MONTANA 20 min 01/05/2023 2:20 PM MEDICATION MANAGEMENT [facility] Herberth Montana DO 40 min documented in this encounter [email or web address] Work Phone: 10-28-2022 Miscellaneous Notes Addressed during visit today. Jaja Moss APRN.CNP October 28, 2022 3:32 PM Patient last seen 07/16/2022. Follow up scheduled 12/30/2022. documented in this encounter [facility] 10-28-2022 Instructions Jaja Moss APRN.PATIENT SERVICES REPRESENTATIVE - 10/28/2022 3:11 PM EST -- schedule [...] days WITH FOOD! documented in this encounter [facility] 10-28-2022 History of Presen t illness Narrative [facility] - Follow up Visit Last Visit: 07/16/2022, Jaja Moss APRN.PATIENT SERVICES REPRESENTATIVE Accompanied by: Self Primary Problem List: ACTIVE [...] Headache Impression and Plan from last visit: Matthew Huang is a 32 year old year [...] Analgesic Diclofenac (Voltaren, Cataflam, Cambia) Hydrocodone/Acetaminophen (Vicodin, [place]) Anti-Anxiety Alprazolam (Xanax, Niravam) Diazepam (Valium) Anti-Convulsant [...] 104/66 Pulse 75 Ht 157.5 cm (5' 2) Wt 70.2 kg (154 lb 11.2 oz) [...] finger-to- nose-finger intact bilaterally. Gait: normal-based. IMPRESSION: Matthew Huang is a 32 year old year [...] Analgesic Diclofenac (Voltaren, Cataflam, Cambia) Hydrocodone/Acetaminophen (Vicodin, [place]) PLAN: HEADACHE MANAGEMENT: (You are the primary [...] which included preparing to see the patient, mjfp-un-ixxt patient care, completing clinical documentation, obtaining and/or reviewing separately obtained history, performing a medically appropriate examination, counseling and educating the patient/family/caregiver, and ordering medications, tests, or procedures. All questions answered. The patient has my contact information and my chart sign up information. Jaja Moss APRN.[place] documented in this encounter [facility] 09-19-2022 Miscellaneous Notes IUD inserted 09/05/22 Delivered 07/22/22 c/s documented in this encounter [facility] 09-09-2022 Instructions Chuckie Hall APRN.[place] - 09/09/2022 3:58 PM EDT ASSESSMENT/PLAN: 1. [...] typical for bladder infection You have had resistant bladder infections before You have frequent bladder [...] have an infection. documented in this encounter [facility] 09-09-2022 History of Presen t illness [...] normal PMH - PAST MEDICAL HISTORY OF vascular [...] Chuckie Hall CNP documented in this encounter [facility] 09-05-2022 Procedure note Associated Ord er(s): [...] (within days). Informed Consent Consent Obtained: Written [place] Protocol A moment to CARE was completed. [...] IUD Source: Office provided IUD Lot #: [id number] Expiration Date: 10/22/2024 Strings trimmed. Post-Procedure Details: Patient tolerated the procedure well with no immediate complications SIGN OUT No specimen collected. All instruments, equipment, possible retained foreign bodies accounted for. Post-procedure follow-up management communicated and Plan of Care Visit completed when applicable Shalonda Krause APRN.CNM documented in this encounter [facility] 09-05-2022 History of Presen t illness Narrative VISIT Matthew Huang is a 32 year old year old here for visit. Delivery Summary: Long Osorio [[id number]] Delivery Information: Delivery Date: 07/22/22 Delivery type: , Low Transverse Delivering Clinician: Iris Lora MD [place]: Gender: Male Weight (grams): 3214 g One Minute : 8 Five Minute : 9 ROS/ Recovery: Feeding: Bottle feeding problems: None Menses since delivery: spotting Menstrual pattern prior to : Regular periods [employer] since delivery: Not resumed Depression: denies symptoms [...] normal PMH - PAST MEDICAL HISTORY OF vascular [...] denies PHYSICAL EXAMINATION: BP 104/66 Ht 5' 2 (1.58m) Wt 144 lb (65.3kg) LMP 09/01/2021 [...] external genitalia normal, normal Bartholin's glands, urethra, [place]'s glands, no vulvar lesions, no cervical lesions, [...] Shalonda Krause APRN.CNM documented in this encounter [facility] 09-05-2022 Nurse Note Matthew Huang has been identified by name and [...] no Bleeding: no Discharge: no Pain: no [employer]:Not resumed Would you like a law professor for your exam today? no Elsa Covington Ma documented in this encounter [facility] 09-04-2022 Miscellaneous Notes I reached out to patient 2x and unable to leave a . Unable to reach patient. LVM w/ details to schedule documented in this encounter [facility] 07-16-2022 Miscellaneous Notes Spoke to patient. For some reason her BG monitor is not showing her BG numbers. Offer her to come to our office and we will give her a new monitor. documented in this encounter [facility] 07-16-2022 Instructions Jaja Moss APRN.CNP - 07/16/2022 1:46 PM EDT You received a greater occipital nerve block today. You may feel sore tomorrow at the site of the injection. You may use heat or ice for discomfort. This should resolve in 24-36 hours. documented in this encounter [facility] 07-16-2022 Procedure note Procedure Note: Greater [...] the procedure well. documented in this encounter [facility] 07-16-2022 History of Presen t illness Narrative [facility] - Follow up Visit Last Visit: 05/13/2022, Jaja Moss APRN.PATIENT SERVICES REPRESENTATIVE Accompanied by: Self Primary Problem List: ACTIVE [...] Headache Impression and Plan from last visit: Matthew Huang is a 32 year old year [...] Analgesic Diclofenac (Voltaren, Cataflam, Cambia) Hydrocodone/Acetaminophen (Vicodin, [place]) Anti-Anxiety Alprazolam (Xanax, Niravam) Diazepam (Valium) Anti-Convulsant [...] 97 Resp 22 Ht 157.5 cm (5' 2) Wt 72.6 kg (160 lb) LMP 09/01/2021 (Within Days) BMI 29.26 kg/m OBJECTIVE: General:awake/easily arousable and no acute distress. Musculoskeletal: Suboccipital tenderness: Yes bilateral. Neurological: Mental Status: Speech fluent and appropriate, alert, oriented to person, place and time, and follows commands. Motor: normal tone. Gait: normal-based. IMPRESSION: Matthew Huang is a 32 year old year [...] which included preparing to see the patient, zwxk-ym-ckro patient care, completing clinical documentation, obtaining and/or reviewing separately obtained history, performing a medically appropriate examination, counseling and educating the patient/family/caregiver, and ordering medications, tests, or procedures. All questions answered. The patient has my contact information and my chart sign up information. Jaja Moss APRN.L[place]IS documented in this encounter [facility] 07-10-2022 Miscellaneous Notes Active baby, complaining [...] 4 - Moderate documented in this encounter [facility] 07-10-2022 Nurse Note Movement? Active baby Vaginal Bleeding: NO Vaginal fluid leakage of fluid: NO Contractions: possible contractions. Program Trainer offered: Patient declines. documented in this encounter [facility] 07-10-2022 History and physical note OBSTETRICS HISTORY AND PHYSICAL NAME: Matthew Huang SERVICE DATE: July 10, 2022 SERVICE [...] normal PMH - PAST MEDICAL HISTORY OF vascular [...] by mouth daily at bedtime. Taking Yes Onalhnbj-Iw-Acj-Fe-FA tab Take 1 tablet by mouth once [...] TIME: 11:57 AM documented in this encounter [facility] 07-03-2022 Miscellaneous Notes Call placed to [facility] Pt scheduled for primary on 07/22/22 at 7:30 am at [place], needs to arrive by 5:30 am Call [...] csection for Breech presentation on Jun at [place]? Shalonda Krause APRN.CNM documented in this encounter [facility] 07-03-2022 Miscellaneous Notes Spoke to patient and advised that she should still have refills on file at [facility]. Patient voiced understanding. documented in this encounter [facility] 06-30-2022 History of Presen t illness [...] normal PMH - PAST MEDICAL HISTORY OF vascular [...] 1 tablet by mouth daily at bedtime. Jzljfxmm-Cb-Zyt-Fe-FA tab Take 1 tablet by mouth once [...] Trimester 0.300-3.000 uU/mL References: 1. Madrigal, Aleah Ellis, Michelle EK, et al. Management of Thyroid Dysfunction during and : An Endocrine Society Clinical Practice Guideline. J Clin Endocrinol Metab, 2012:97:4025-2498. 2. Jorge Alberto EVANS. Overview of thyroid [...] report these results to you when available. Matthew will call us with any questions or [...] which included preparing to see the patient, qmzh-qh-zsiv patient care, completing clinical documentation, obtaining and/or reviewing separately obtained history, performing a medically appropriate examination, counseling and educating the patient/family/caregiver and ordering medications, tests, or procedures. Vincent Ocampo DO documented in this encounter [facility] 06-30-2022 Nurse Note Called patient on mobile number for intake-no answer left vm with instructions. documented in this encounter [facility] 06-26-2022 Miscellaneous Notes Glucose readings have been entered documented in this encounter [facility] 06-25-2022 Miscellaneous Notes Matthew was added on for complaints of vaginal [...] 4 - Moderate documented in this encounter [facility] 06-25-2022 History of Past i llness [...] of this encounter (statuses as of 09/05/2022) [facility] History of Past illness Narrative* Problem [...] of this encounter (statuses as of 09/09/2022) [facility] History of Past illness Narrative* Problem [...] of this encounter (statuses as of 09/25/2022) [facility] History of Past illness Narrative* Problem [...] of this encounter (statuses as of 10/28/2022) [facility] History of Past illness Narrative* Problem [...] of this encounter (statuses as of 10/28/2022) [facility] History of Past illness Narrative* Problem [...] of this encounter (statuses as of 11/28/2022) [facility] History of Past illness Narrative* Problem [...] of this encounter (statuses as of 01/03/2023) [facility] History of Past illness Narrative* Problem [...] of this encounter (statuses as of 01/05/2023) [facility] History of Past illness Narrative* Problem [...] of this encounter (statuses as of 2023) [facility] History of Past illness Narrative* Problem [...] of this encounter (statuses as of 01/28/2023) [facility] History of Past illness Narrative* Problem [...] Rash 02/16/2019 09/17/2020 Vomiting, persistent, in adult 02/16/20192018 Routine gynecological examination 10/26/2014 09/17/2020 Endometriosis 10/26/2014 10/16/2020 Other protein-calorie malnutrition 04/06/2006 09/17/2020 documented as of this encounter (statuses as of 05/25/2023) [facility] History of Past illness Narrative* Problem [...] of this encounter (statuses as of 06/09/2023) [facility] History of Past illness Narrative* Problem [...] of this encounter (statuses as of 07/02/2023) [facility] History of Past illness Narrative* Problem [...] of this encounter (statuses as of 07/14/2023) [facility] History of Past illness Narrative* Problem [...] of this encounter (statuses as of 07/15/2023) [facility] History of Past illness Narrative* Problem [...] of this encounter (statuses as of 09/15/2023) [facility] History of Past illness Narrative* Problem [...] of this encounter (statuses as of 09/30/2023) [facility] History of Past illness Narrative* Problem [...] of this encounter (statuses as of 10/01/2023) [facility] History of Past illness Narrative* Problem [...] of this encounter (statuses as of 10/14/2023) [facility] History of Past illness Narrative* Problem [...] of this encounter (statuses as of 10/23/2023) [facility] History of Past illness Narrative* Problem [...] of this encounter (statuses as of 12/29/2023) [facility] History of Past illness Narrative* Problem [...] of this encounter (statuses as of 12/29/2023) [facility] History of Past illness Narrative* Problem [...] of this encounter (statuses as of 01/01/2024) [facility] History of Past illness Narrative* Problem [...] of this encounter (statuses as of 01/01/2024) [facility] History of Past illness Narrative* Problem [...] of this encounter (statuses as of 01/02/2024) [facility] History of Past illness Narrative* Problem [...] of this encounter (statuses as of 01/06/2024) [facility] History of Past illness Narrative* Problem [...] of this encounter (statuses as of 01/06/2024) [facility] History of Past illness Narrative* Problem [...] of this encounter (statuses as of 01/11/2024) [facility] History of Past illness Narrative* Problem [...] of this encounter (statuses as of 01/15/2024) [facility] History of Past illness Narrative* Problem [...] of this encounter (statuses as of 01/28/2024) [facility] History of Past illness Narrative* Problem [...] of this encounter (statuses as of 01/28/2024) [facility] History of Past illness Narrative* Problem [...] of this encounter (statuses as of 01/29/2024) [facility] History of Past illness Narrative* Problem [...] of this encounter (statuses as of 01/31/2024) [facility] History of Past illness Narrative* Problem [...] of this encounter (statuses as of 02/08/2024) [facility] History of Past illness Narrative* Problem [...] of this encounter (statuses as of 02/17/2024) [facility] Nurse Note* Magui Romero Ma - 06/25/2022 1:23 PM EDT Movement? Active baby Vaginal Bleeding: NO Vaginal fluid leakage of fluid: NO Contractions: no contractions Program Trainer offered: Patient declines. documented in this encounterJoint [facility] Miscellaneous Notes* Telephone Encounter - Danica Santana RN - 06/25/2022 9:43 AM EDT Geoffrey Liz Pt was offered and agreed to come in to day at 1 pm to be worked into the schedule * Telephone Encounter - Danica Santana RN - 06/25/2022 9:15 AM EDT [...] has had re occurring BV States the Pain is more of a irritation Stopped intercourse due to this recent vaginal irritation Last 2-3 days vaginal tissue near urethra is swollen No pain with urination, no frequency but has some pressure emptying out due to Occasional Pain in lower abdomen Has some vaginal discharge that Pt feels is normal with and it is increased on some days Has a slight off odor not fishy in the vaginal discharge Is clear Reviewed [...] it is BV related. documented in this encounterJoint [facility] History of Present illness Narrative* Lebron Juares, RD - 06/11/2022 1:00 PM EDT [facility] Medical Nutrition Therapy Visit Type: In-Person (Face [...] normal PMH - PAST MEDICAL HISTORY OF vascular disease 01/2002 PMH - PAST MEDICAL HISTORY OF wearing glasses and broke ankle at age 3, wrist fracture depression Activity: Do you do a regular exercise Yes; how many days per week 5+ How long each day? 30-60 min Type of Exercise: super active with [employer] Sometimes walks with Nilam Symptoms: Patient's symptoms are as follows: GDM How many hours of sleep on average? Did not report Diet History:touble eating-early satiety Breakfast: 7:30 am protein shake w/ fruit [...] Food Allergy Patient / Provider Comments: Pt [id number] weeks gestation. She does not have a [...] 1 tablet by mouth daily at bedtime. Navgabry-Zy-Ctm-Fe-FA tab Take 1 tablet by mouth once [...] Value Date HBA1C 5.2 06/03/2022 LDL Chol, [place] Date Value Ref Range Status 06/08/2008 75 [...] Readings: Date: Ht: 05/25/2022 160 cm (5' 3) Current weight: Last 3 Encounter Wt Readings: [...] Follow up: as needed Referred by: Vincent Ocampo DO Megan Wolf, RD Consult Billing Type/Increments: Initial Assessment/15 minutes, 3 increment(s), 45 minutes Start time: 12:45 End time: 1:30 pm My final report will be communicated back to the requesting physician by way of shared medical record. Signed by: Lebron Juares RD documented in this encounterJoint [facility] Miscellaneous Notes* Quick Notes - Shalonda [...] Level: 4 - Moderate documented in this encounterJoint [facility]22 Nurse Note* Elsa Covington Ma - 06/03/2022 2:50 PM EDT Movement? Active baby Vaginal Bleeding: YES/MD NOTIFIED Vaginal fluid leakage of fluid: NO Contractions: no contractions Program Trainer offered: Patient declines. documented in this encounterJoint [facility] Instructions* Patient Instructions* Vincent Ocampo DO - 06/03/2022 10:08 AM EDT 1) check your sugars fasting (60-90 mg/dL) and 2 hours post meal (less than 120 mg/dL) 2) forward me your blood glucose data weekly ( ) 3) see DM education (virtual visit) Lebron Juares 4) see me in 4 weeks (virtual visit) documented in this encounterJoint [facility] History of Present illness Narrative* Vincent Ocampo DO - 06/03/2022 9:40 AM EDT Reason for consultation: Evaluation of gestational diabetes mellitus Referring Physician: Shalonda Krause [...] normal PMH - PAST MEDICAL HISTORY OF vascular [...] 1 tablet by mouth daily at bedtime. Dipiowvv-Rc-Ykk-Fe-FA tab Take 1 tablet by mouth once [...] uU/mL Third Trimester 0.300-3.000 uU/mL References: 1. Rushing L, Aleah M, Michelle EK, et al. Management of Thyroid Dysfunction during and : An Endocrine Society Clinical Practice Guideline. J Clin Endocrinol Metab, 2012:97:1155-9311. 2. Jorge Alberto EVANS. Overview of thyroid [...] see me in 4 weeks (virtual visit) Matthew will call us with any questions or [...] which included preparing to see the patient, exqu-qb-deft patient care, completing clinical documentation, obtaining and/or reviewing separately obtained history, performing a medically appropriate examination, counseling and educating the pat ient/family/caregiver and ordering medications, tests, or procedures. Vincent Ocampo DO documented in this encounterJoint [facility]07[facility]22 Miscellaneous Notes* Telephone Encounter - Shalonda Krause APRN.CNM - 06/03/2022 9:01 AM EDT Overall numbers are great. Keep up the good work and keep recording. Shalonda Krause APRN.CNM * Telephone Encounter - Nargis Guerin RN - 06/03/2022 7:51 AM EDT All values entered documented in this encounterJoint [facility]22 Miscellaneous Notes* Telephone Encounter - Shalonda [...] Order pended if agreeable documented in this encounterJoint [facility]06-[facility]22 History of Present illness Narrative* Ham Ozuna RN - 05/15/2022 3:17 PM EDT DIABETES SELF-MANAGEMENT EDUCATION AND SUPPORT Location: [place] Type of visit: In person individual Types [...] Race/Ethnic Origin: White/ Does you culture or hinduism require any of the following: No cultural/gnosticist practices affecting DM Do you have problems [...] are you reporting your blood sugar levels? Coil Taper PAST MEDICAL HISTORY Diagnosis Date Endometriosis 10/26/2014 never had diagnostic lap to confirm, patient did not want surgery Infertility, female Migraine without aura and without status migrainosus, not intractable 07/18/2019 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HCC) 08/27/2015 Panic disorder without agoraphobia PMH - PAST MEDICAL HISTORY OF color vision normal PMH - PAST MEDICAL HISTORY OF vascular [...] 1 tablet by mouth daily at bedtime. Gzyudpuy-Om-Arl-Fe-FA tab Take 1 tablet by mouth once [...] record. SIGNATURE: Ham Ozuna RN PATIENT NAME: Matthew Huang DATE: May 15, 2022 TIME: 3:19 PM PAGER: documented in this encounterJoint [facility]06-21-2022 Miscellaneous Notes* Telephone Encounter - Danica [...] are ready * Telephone Encounter - Shalonda Kruase APRN.CNM - 05/13/2022 8:58 AM EDT Matthew's three hour glucose test indicates she has gestational diabetes which is usually controlledwell by diet and exercise. I placed order for testing supplies and referral to diabetic education. Shalonda Krause APRN.CNM documented in this encounterJoint [facility]06-[facility]-2022 Miscellaneous Notes* Telephone Encounter - Diane [...] order. Shalonda Krause APRN.CNM documented in this encounterJoint [facility]06-14-2022 Miscellaneous Notes* Quick Notes - Shalonda [...] Level: 4 - Moderate documented in this encounterJoint [facility]06-14-2022 Nurse Note* Sarita Walls Ma - 05/06/2022 2:36 PM EDT Movement? Decreased movement Vaginal Bleeding: NO Vaginal fluid leakage of fluid: NO Contractions: no contractions Program Trainer offered: Patient declines. documented in this encounterJoint [facility]05-28-2022 Miscellaneous Notes* Quick Notes - Shalonda Krause APRN.CNM - 04/19/2022 4:45 PM EDT Complaining of discharge which is consistent with BV. RX flagyl. Also having issues with constipation: Reviewed diet, relief measures, rx senokot to take if no BM in 2-3 days. Reviewed 28 week labs. Active baby, no unusual abdominal pain, no bleeding, no leaking of fluid. RTC 2 weeks. Sahlonda Krause APRN.CNM Medical Decision Making: Problems: Low: 2+ self-limited or minor problems and Acute, uncomplicated illness or injury Data: Unique test result(s) reviewed: 1 Unique test(s) ordered: 3+ Risk: Moderate: Drug management Medical Decision Making Level: 4 - Moderate documented in this encounterJoint [facility]05-18-2022 History of Present illness Narrative* Kelsey Giraldo MD - 04/09/2022 2:52 PM EDT Shalonda Krause APN NAME: Matthew Huang [facility] Number.: [id number] Date of : 1990 Date of Visit: April 09, 2022 Dear Ms. Krause: Ms. Matthew Huang was seen for echocardiogram and pediatric [...] and rhythm. We discussed these findings with Ms. Matthew Huang. In addition, the limitations of the [...] Sincerely, Dr. Kelsey Giraldo documented in this encounterJoint [facility]04-25-2022 Miscellaneous Notes* Telephone Encounter - Nargis Guerin RN - 03/17/2022 11:51 AM EDT Call to pt I called in last night, yesterday I was having really bad pain in my tailbone The doctor foundation coordinator told me to rest and take tylenol, and if the pain doesn't go away I should go [facility] to be seen Reviewed no available appt in the office today so the recommendation to be seen should be followed,recommended urgent care Pt verbalized understanding, will go to be seen. * Telephone Encounter - Feli Sanders - 03/17/2022 11:42 AM EDT Patient is calling regarding lower back pain. See telephone encounter from yesterday documented in this encounterJoint [facility]04-24-2022 Miscellaneous Notes* Telephone Encounter - Jimmy [...] understanding. Jimmy Edwards MD documented in this encounterJoint [facility] District [facility]04-14-2022 Miscellaneous Notes* Quick Notes - Serene Madison - 03/06/2022 10:23 AM EDT Pt doing well, experiencing flutters. No abnormal pain, bleeding, leaking, or discharge. C/o acid reflux not resolved by Tums, no N/V associated; recommended Pepcid. Declined genetic testing at this time. RTC in 4 weeks. Serene Madison, RN, [employer]-student Reviewed [employer] student's interview and physical. Agree with assessment ASSESSMENT/PLAN: 1. 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 Flutters Vaginal Bleeding: NO Vaginal fluid leakage of fluid: NO Contractions: no contractions Program Trainer offered: Patient declines. documented in this encounterJoint [facility]04-01-2022 Miscellaneous Notes* Telephone Encounter - Diane [...] the zoo with her daughter and was very active Informed patient she may have over done [...] painful on the left side but more crampy on the right side Pain is worse when standing or when [...] more active Eating and drinking ok Urine's pretty yellow Encouraged pt to drink 16 ounces of water now and then at least 8 ounces for every hour she's awakemoving forward Please review and advise * Telephone Encounter - Nargis Guerin RN - 02/21/2022 10:41 AM EDT Call to patient VM box is full unable to leave , sent SMS * Telephone Encounter - Flei Sanders - 02/21/2022 10:32 AM EDT Patient is calling with concern of bad stomach pain. This started this morning. Started with a little pain but it is progressing. She states she is not having any bleeding. documented [place] encounterSteven [place] [address]-24-2022 History of Past illness Narrative* Problem Noted Date Resolved Date Acute cystitis 12/16/2021 01/15/2022 Adjustment disorder with mixed anxiety and depre ssed mood 04/29/2021 08/26/2021 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HCC-CMS) 08/27/20 15 08/26/2021 Anxiety state 08/26/2021 documented as of this encounter (statuses as of 01/01/2023) [facility] Work Phone: 1(406) 308-569201-24-2022 History of Past illness Narrative* Problem Noted Date Resolved Date Acute cystitis 12/16/2021 01/15/2022 Adjustment disorder with mixed anxiety and depre ssed mood 04/29/2021 08/26/2021 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HCC-CMS) 08/27/20 15 08/26/2021 Anxiety state 08/26/2021 documented as of this encounter (statuses as of 01/05/2023) [facility] Work Phone: 1(617) 323-696701-24-2022 History of Past illness Narrative* Problem Noted Date Resolved Date Acute cystitis 12/16/2021 01/15/2022 Adjustment disorder with mixed anxiety and depre ssed mood 04/29/2021 08/26/2021 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HCC-CMS) 08/27/20 15 08/26/2021 Anxiety state 08/26/2021 documented as of this encounter (statuses as of 01/05/2023) [facility] Work Phone: 1(244) 914-632301-24-2022 History of Past illness Narrative* Problem Noted Date Resolved Date Acute cystitis 12/16/2021 01/15/2022 Adjustment disorder with mixed anxiety and depre ssed mood 04/29/2021 08/26/2021 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HCC-CMS) 08/27/20 15 08/26/2021 Anxiety state 08/26/2021 documented as of this encounter (statuses as of 02/02/2023) [facility] Work Phone: 1(718) 556-500301-24-2022 History of Past illness Narrative* Problem Noted Date Diagnosed Date Resolved Date Acute cystitis 12/16/2021 01/15/2022 Adjustment disorder with mix ed anxiety and depressed mood 04/29/2021 08/26/2021 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[facility]) 08/27/2015 08/26/2021 Anxiety state 08/26/2021 documented as of this encounter (statuses as of 02/12/2023) [facility] Work Phone: 1(930) 251-503001-24-2022 History of Past illness Narrative* Problem Noted Date Diagnosed Date Resolved Date Acute cystitis 12/16/2021 01/15/2022 Adjustment disorder with mix ed anxiety and depressed mood 04/29/2021 08/26/2021 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[facility]) 08/27/2015 08/26/2021 Anxiety state 08/26/2021 documented as of this encounter (statuses as of 02/19/2023) [email or web address] Work Phone: 1(955) 208-779201-24-2022 History of Past illness Narrative* Problem Noted Date Diagnosed Date Resolved Date Acute cystitis 12/16/2021 01/15/2022 Adjustment disorder with mix ed anxiety and depressed mood 04/29/2021 08/26/2021 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[facility]) 08/27/2015 08/26/2021 Anxiety state 08/26/2021 documented as of this encounter (statuses as of 02/20/2023) [email or web address] Work Phone: 1(115) 436-858101-24-2022 History of Past illness Narrative* Problem Noted Date Diagnosed Date Resolved Date Acute cystitis 12/16/2021 01/15/2022 Adjustment disorder with mix ed anxiety and depressed mood 04/29/2021 08/26/2021 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[facility]) 08/27/2015 08/26/2021 Anxiety state 08/26/2021 documented as of this encounter (statuses as of 02/27/2023) [facility] Work Phone: 1(798) 881-755401-24-2022 History of Past illness Narrative* Problem Noted Date Diagnosed Date Resolved Date Acute cystitis 12/16/2021 01/15/2022 Adjustment disorder with mix ed anxiety and depressed mood 04/29/2021 08/26/2021 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[facility]) 08/27/2015 08/26/2021 Anxiety state 08/26/2021 documented as of this encounter (statuses as of 03/23/2023) [facility] Work Phone: 1(782) 650-119901-24-2022 History of Past illness Narrative* Problem Noted Date Diagnosed Date Resolved Date Acute cystitis 12/16/2021 01/15/2022 Adjustment disorder with mix ed anxiety and depressed mood 04/29/2021 08/26/2021 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[facility]) 08/27/2015 08/26/2021 Anxiety state 08/26/2021 documented as of this encounter (statuses as of 04/03/2023) [email or web address] Work Phone: 1(895) 233-987301-24-2022 History of Past illness Narrative* Problem Noted Date Diagnosed Date Resolved Date Acute cystitis 12/16/2021 01/15/2022 Adjustment disorder with mix ed anxiety and depressed mood 04/29/2021 08/26/2021 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[facility]) 08/27/2015 08/26/2021 Anxiety state 08/26/2021 documented as of this encounter (statuses as of 04/23/2023) [email or web address] Work Phone: 1(123) 508-803501-24-2022 History of Past illness Narrative* Problem Noted Date Diagnosed Date Resolved Date Acute cystitis 12/16/2021 01/15/2022 Adjustment disorder with mix ed anxiety and depressed mood 04/29/2021 08/26/2021 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HCC-CMS) 08/27/2015 08/26/2021 Anxiety state 08/26/2021 documented as of this encounter (statuses as of 04/27/2023) [email or web address] Work Phone: 1(989) 346-676101-24-2022 History of Past illness Narrative* Problem Noted Date Diagnosed Date Resolved Date Acute cystitis 12/16/2021 01/15/2022 Adjustment disorder with mix ed anxiety and depressed mood 04/29/2021 08/26/2021 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HCC-CMS) 08/27/2015 08/26/2021 Anxiety state 08/26/2021 documented as of this encounter (statuses as of 04/27/2023) [email or web address] Work Phone: 1(198) 524-657901-24-2022 History of Past illness Narrative* Problem Noted Date Diagnosed Date Resolved Date Acute cystitis 12/16/2021 01/15/2022 Adjustment disorder with mix ed anxiety and depressed mood 04/29/2021 08/26/2021 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[facility]) 08/27/2015 08/26/2021 Anxiety state 08/26/2021 documented as of this encounter (statuses as of 05/15/2023) [facility] Work Phone: 1(574) 515-815601-24-2022 History of Past illness Narrative* Problem Noted Date Diagnosed Date Resolved Date Acute cystitis 12/16/2021 01/15/2022 Adjustment disorder with mix ed anxiety and depressed mood 04/29/2021 08/26/2021 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[facility]) 08/27/2015 08/26/2021 Anxiety state 08/26/2021 documented as of this encounter (statuses as of 05/18/2023) [facility] Work Phone: 1(688) 563-506501-24-2022 History of Past illness Narrative* Problem Noted Date Diagnosed Date Resolved Date Acute cystitis 12/16/2021 01/15/2022 Adjustment disorder with mix ed anxiety and depressed mood 04/29/2021 08/26/2021 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[facility]) 08/27/2015 08/26/2021 Anxiety state 08/26/2021 documented as of this encounter (statuses as of 05/26/2023) [email or web address] Work Phone: 1(498) 293-551401-24-2022 History of Past illness Narrative* Problem Noted Date Diagnosed Date Resolved Date Acute cystitis 12/16/2021 01/15/2022 Adjustment disorder with mix ed anxiety and depressed mood 04/29/2021 08/26/2021 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[facility]) 08/27/2015 08/26/2021 Anxiety state 08/26/2021 documented as of this encounter (statuses as of 05/29/2023) [facility] Work Phone: [phone]) 127-941801-24-2022 History of Past illness Narrative* Problem Noted Date Diagnosed Date Resolved Date Acute cystitis 12/16/2021 01/15/2022 Adjustment disorder with mix ed anxiety and depressed mood 04/29/2021 08/26/2021 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[facility]) 08/27/2015 08/26/2021 Anxiety state 08/26/2021 documented as of this encounter (statuses as of 05/29/2023) [facility] Work Phone: 1(415) 931-616501-24-2022 History of Past illness Narrative* Problem Noted Date Diagnosed Date Resolved Date Acute cystitis 12/16/2021 01/15/2022 Adjustment disorder with mix ed anxiety and depressed mood 04/29/2021 08/26/2021 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[facility]) 08/27/2015 08/26/2021 Anxiety state 08/26/2021 documented as of this encounter (statuses as of 06/02/2023) [facility] Work Phone: 1(460) 729-291601-24-2022 History of Past illness Narrative* Problem Noted Date Diagnosed Date Resolved Date Acute cystitis 12/16/2021 01/15/2022 Adjustment disorder with mix ed anxiety and depressed mood 04/29/2021 08/26/2021 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[facility]) 08/27/2015 08/26/2021 Anxiety state 08/26/2021 documented as of this encounter (statuses as of 06/26/2023) [facility] Work Phone: 1(108) 107-117501-24-2022 History of Past illness Narrative* Problem Noted Date Diagnosed Date Resolved Date Acute cystitis 12/16/2021 01/15/2022 Adjustment disorder with mix ed anxiety and depressed mood 04/29/2021 08/26/2021 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[facility]) 08/27/2015 08/26/2021 Anxiety state 08/26/2021 documented as of this encounter (statuses as of 07/03/2023) [facility] Work Phone: 1(130) 413-108501-24-2022 History of Past illness Narrative* Problem Noted Date Diagnosed Date Resolved Date Acute cystitis 12/16/2021 01/15/2022 Adjustment disorder with mix ed anxiety and depressed mood 04/29/2021 08/26/2021 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[facility]) 08/27/2015 08/26/2021 Anxiety state 08/26/2021 documented as of this encounter (statuses as of 07/06/2023) [facility] Work Phone: [phone] [id number] History of Past illness Narrative* Problem Noted Date Diagnosed Date Resolved Date Acute cystitis 12/16/2021 01/15/2022 Adjustment disorder with mix ed anxiety and depressed mood 04/29/2021 08/26/2021 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FORMERLY [facility]) 08/27/2015 08/26/2021 Anxiety state 08/26/2021 documented as of this encounter (statuses as of 07/10/2023) [email or web address] Work Phone: 1(759) 789-772101-24-2022 History of Past illness Narrative* Problem Noted Date Diagnosed Date Resolved Date Acute cystitis 12/16/2021 01/15/2022 Adjustment disorder with mix ed anxiety and depressed mood 04/29/2021 08/26/2021 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FORM[facility]) 08/27/2015 08/26/2021 Anxiety state 08/26/2021 documented as of this encounter (statuses as of 07/15/2023) [email or web address] Work Phone: 1(450) 160-422101-24-2022 History of Past illness Narrative* Problem Noted Date Diagnosed Date Resolved Date Acute cystitis 12/16/2021 01/15/2022 Adjustment disorder with mix ed anxiety and depressed mood 04/29/2021 08/26/2021 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[facility]) 08/27/2015 08/26/2021 Anxiety state 08/26/2021 documented as of this encounter (statuses as of 07/19/2023) [email or web address] Work Phone: 1([phone]) 756-684701-24-2022 History of Past illness Narrative* Problem Noted Date Diagnosed Date Resolved Date Acute cystitis 12/16/2021 01/15/2022 Adjustment disorder with mix ed anxiety and depressed mood 04/29/2021 08/26/2021 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[facility]) 08/27/2015 08/26/2021 Anxiety state 08/26/2021 documented as of this encounter (statuses as of 08/07/2023) [employer] Work Phone: 1(159) 772-185701-24-2022 History of Past illness Narrative* Problem Noted Date Diagnosed Date Resolved Date Acute cystitis 12/16/2021 01/15/2022 Adjustment disorder with mix ed anxiety and depressed mood 04/29/2021 08/26/2021 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[facility]) 08/27/2015 08/26/2021 Anxiety state 08/26/2021 documented as of this encounter (statuses as of 08/14/2023) [facility] Work Phone: 1(585) 584-377201-24-2022 History of Past illness Narrative* Problem Noted Date Diagnosed Date Resolved Date Acute cystitis 12/16/2021 01/15/2022 Adjustment disorder with mix ed anxiety and depressed mood 04/29/2021 08/26/2021 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[facility]) 08/27/2015 08/26/2021 Anxiety state 08/26/2021 documented as of this encounter (statuses as of 09/04/2023) [email or web address] Work Phone: 1(890) 907-174701-24-2022 History of Past illness Narrative* Problem Noted Date Diagnosed Date Resolved Date Acute cystitis 12/16/2021 01/15/2022 Adjustment disorder with mix ed anxiety and depressed mood 04/29/2021 08/26/2021 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[facility]) 08/27/2015 08/26/2021 Anxiety state 08/26/2021 documented as of this encounter (statuses as of 09/07/2023) [email or web address] Work Phone: 1(535) 985-555701-24-2022 History of Past illness Narrative* Problem Noted Date Diagnosed Date Resolved Date Acute cystitis 12/16/2021 01/15/2022 Adjustment disorder with mix ed anxiety and depressed mood 04/29/2021 08/26/2021 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[facility]) 08/27/2015 08/26/2021 Anxiety state 08/26/2021 documented as of this encounter (statuses as of 09/24/2023) [facility] Work Phone: 1(192) 304-275401-24-2022 History of Past illness Narrative* Problem Noted Date Diagnosed Date Resolved Date Acute cystitis 12/16/2021 01/15/2022 Adjustment disorder with mix ed anxiety and depressed mood 04/29/2021 08/26/2021 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[facility]) 08/27/2015 08/26/2021 Anxiety state 08/26/2021 documented as of this encounter (statuses as of 10/09/2023) [facility] Work Phone: 1(318) 732-331001-24-2022 History of Past illness Narrative* Problem Noted Date Diagnosed Date Resolved Date Acute cystitis 12/16/2021 01/15/2022 Adjustment disorder with mix ed anxiety and depressed mood 04/29/2021 08/26/2021 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[facility]) 08/27/2015 08/26/2021 Anxiety state 08/26/2021 documented as of this encounter (statuses as of 10/09/2023) [facility] Work Phone: 1(797) 255-148101-24-2022 History of Past illness Narrative* Problem Noted Date Diagnosed Date Resolved Date Acute cystitis 12/16/2021 01/15/2022 Adjustment disorder with mix ed anxiety and depressed mood 04/29/2021 08/26/2021 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[facility]) 08/27/2015 08/26/2021 Anxiety state 08/26/2021 documented as of this encounter (statuses as of 10/30/2023) [facility] Work Phone: 1(363) 648-778701-24-2022 History of Past illness Narrative* Problem Noted Date Diagnosed Date Resolved Date Acute cystitis 12/16/2021 01/15/2022 Adjustment disorder with mix ed anxiety and depressed mood 04/29/2021 08/26/2021 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[facility]) 08/27/2015 08/26/2021 Anxiety state 08/26/2021 documented as of this encounter (statuses as of 11/13/2023) [facility] Work Phone: 1(833) 287-654101-24-2022 History of Past illness Narrative* Problem Noted Date Diagnosed Date Resolved Date Acute cystitis 12/16/2021 01/15/2022 Adjustment disorder with mix ed anxiety and depressed mood 04/29/2021 08/26/2021 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[facility]) 08/27/2015 08/26/2021 Anxiety state 08/26/2021 documented as of this encounter (statuses as of 12/11/2023) [facility] Work Phone: 1(808) 194-356901-24-2022 History of Past illness Narrative* Problem Noted Date Diagnosed Date Resolved Date Acute cystitis 12/16/2021 01/15/2022 Adjustment disorder with mix ed anxiety and depressed mood 04/29/2021 08/26/2021 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[facility]) 08/27/2015 08/26/2021 Anxiety state 08/26/2021 documented as of this encounter (statuses as of 12/13/2023) [email or web address] Work Phone: 1(485) 770-774901-24-2022 History of Past illness Narrative* Problem Noted Date Diagnosed Date Resolved Date Acute cystitis 12/16/2021 01/15/2022 Adjustment disorder with mix ed anxiety and depressed mood 04/29/2021 08/26/2021 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[facility]) 08/27/2015 08/26/2021 Anxiety state 08/26/2021 documented as of this encounter (statuses as of 12/17/2023) [email or web address] Work Phone: 1(648) 822-835701-24-2022 History of Past illness Narrative* Problem Noted Date Diagnosed Date Resolved Date Acute cystitis 12/16/2021 01/15/2022 Adjustment disorder with mix ed anxiety and depressed mood 04/29/2021 08/26/2021 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[facility]) 08/27/2015 08/26/2021 Anxiety state 08/26/2021 documented as of this encounter (statuses as of 12/25/2023) [email or web address] Work Phone: 1(908) 723-313201-24-2022 History of Past illness Narrative* Problem Noted Date Diagnosed Date Resolved Date Acute cystitis 12/16/2021 01/15/2022 Adjustment disorder with mix ed anxiety and depressed mood 04/29/2021 08/26/2021 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[facility]) 08/27/2015 08/26/2021 Anxiety state 08/26/2021 documented as of this encounter (statuses as of 01/01/2024) [facility] Work Phone: 1(340) 336-242201-24-2022 History of Past illness Narrative* Problem Noted Date Diagnosed Date Resolved Date Acute cystitis 12/16/2021 01/15/2022 Adjustment disorder with mix ed anxiety and depressed mood 04/29/2021 08/26/2021 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[facility]) 08/27/2015 08/26/2021 Anxiety state 08/26/2021 documented as of this encounter (statuses as of 01/08/2024) [facility] Work Phone: 1(982) 251-629601-24-2022 History of Past illness Narrative* Problem Noted Date Diagnosed Date Resolved Date Acute cystitis 12/16/2021 01/15/2022 Adjustment disorder with mix ed anxiety and depressed mood 04/29/2021 08/26/2021 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[facility]) 08/27/2015 08/26/2021 Anxiety state 08/26/2021 documented as of this encounter (statuses as of 01/15/2024) [email or web address] Work Phone: 1(798) 276-660901-24-2022 History of Past illness Narrative* Problem Noted Date Diagnosed Date Resolved Date Acute cystitis 12/16/2021 01/15/2022 Adjustment disorder with mix ed anxiety and depressed mood 04/29/2021 08/26/2021 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[facility]) 08/27/2015 08/26/2021 Anxiety state 08/26/2021 documented as of this encounter (statuses as of 01/15/2024) [email or web address] Work Phone: 1(191) 837-263701-24-2022 History of Past illness Narrative* Problem Noted Date Diagnosed Date Resolved Date Acute cystitis 12/16/2021 01/15/2022 Adjustment disorder with mix ed anxiety and depressed mood 04/29/2021 08/26/2021 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[facility]) 08/27/2015 08/26/2021 Anxiety state 08/26/2021 documented as of this encounter (statuses as of 01/22/2024) [facility] Work Phone: 1(226) 434-947101-24-2022 History of Past illness Narrative* Problem Noted Date Diagnosed Date Resolved Date Acute cystitis 12/16/2021 01/15/2022 Adjustment disorder with mix ed anxiety and depressed mood 04/29/2021 08/26/2021 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[facility]) 08/27/2015 08/26/2021 Anxiety state 08/26/2021 documented as of this encounter (statuses as of 01/29/2024) [facility] Work Phone: 1(516) 329-359101-24-2022 History of Past illness Narrative* Problem Noted Date Diagnosed Date Resolved Date Acute cystitis 12/16/2021 01/15/2022 Adjustment disorder with mix ed anxiety and depressed mood 04/29/2021 08/26/2021 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[facility]) 08/27/2015 08/26/2021 Anxiety state 08/26/2021 documented as of this encounter (statuses as of 01/29/2024) [email or web address] Work Phone: 1(991) 734-310401-24-2022 History of Past illness Narrative* Problem Noted Date Diagnosed Date Resolved Date Acute cystitis 12/16/2021 01/15/2022 Adjustment disorder with mix ed anxiety and depressed mood 04/29/2021 08/26/2021 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[facility]) 08/27/2015 08/26/2021 Anxiety state 08/26/2021 documented as of this encounter (statuses as of 02/05/2024) [email or web address] Work Phone: 1(476) 715-811001-24-2022 History of Past illness Narrative* Problem Noted Date Diagnosed Date Resolved Date Acute cystitis 12/16/2021 01/15/2022 Adjustment disorder with mix ed anxiety and depressed mood 04/29/2021 08/26/2021 Mild mixed bipolar I disorder ([facility]) 08/27/2015 08/26/2021 Anxiety state 08/26/2021 documented as of this encounter (statuses as of 02/18/2024) [facility] Work Phone: 1(518) 829-858301-24-2022 History of Past illness Narrative* Problem Noted Date Diagnosed Date Resolved Date Acute cystitis 12/16/2021 01/15/2022 Adjustment disorder with mix ed anxiety and depressed mood 04/29/2021 08/26/2021 Mild mixed bipolar I disorder ([facility]) 08/27/2015 08/26/2021 Anxiety state 08/26/2021 documented as of this encounter (statuses as of 02/22/2024) [facility] Work Phone: 1(158) 530-589201-24-2022 History of Past illness Narrative* Problem Noted Date Diagnosed Date Resolved Date Acute cystitis 12/16/2021 01/15/2022 Adjustment disorder with mix ed anxiety and depressed mood 04/29/2021 08/26/2021 Mild mixed bipolar I disorder ([facility]) 08/27/2015 08/26/2021 Anxiety state 08/26/2021 documented as of this encounter (statuses as of 03/10/2024) [email or web address] Work Phone: 1(459) 248-952001-24-2022 History of Past illness Narrative* Problem Noted Date Diagnosed Date Resolved Date Acute cystitis 12/16/2021 01/15/2022 Adjustment disorder with mix ed anxiety and depressed mood 04/29/2021 08/26/2021 Mild mixed bipolar I disorder ([facility]) 08/27/2015 08/26/2021 Anxiety state 08/26/2021 documented as of this encounter (statuses as of 03/11/2024) [email or web address] Work Phone: 1(274) 461-172501-24-2022 History of Past illness Narrative* Problem Noted Date Diagnosed Date Resolved Date Acute cystitis 12/16/2021 01/15/2022 Adjustment disorder with mix ed anxiety and depressed mood 04/29/2021 08/26/2021 Mild mixed bipolar I disorder ([facility]) 08/27/2015 08/26/2021 Anxiety state 08/26/2021 documented as of this encounter (statuses as of 03/16/2024) [facility] Work Phone: 1(388) 203-388901-24-2022 History of Past illness Narrative* Problem Noted Date Diagnosed Date Resolved Date Acute cystitis 12/16/2021 01/15/2022 Adjustment disorder with mix ed anxiety and depressed mood 04/29/2021 08/26/2021 Mild mixed bipolar I disorder ([facility]) 08/27/2015 08/26/2021 Anxiety state 08/26/2021 documented as of this encounter (statuses as of 04/04/2024) [facility] Work Phone: 1([phone]) 770-936501-24-2022 History of Past illness Narrative* Problem Noted Date Diagnosed Date Resolved Date Acute cystitis 12/16/2021 01/15/2022 Adjustment disorder with mix ed anxiety and depressed mood 04/29/2021 08/26/2021 Mild mixed bipolar I disorder ([facility]) 08/27/2015 08/26/2021 Anxiety state 08/26/2021 documented as of this encounter (statuses as of 04/05/2024) [facility] Work Phone: 1(889) 999-161901-24-2022 History of Past illness Narrative* Problem Noted Date Diagnosed Date Resolved Date Acute cystitis 12/16/2021 01/15/2022 Adjustment disorder with mix ed anxiety and depressed mood 04/29/2021 08/26/2021 Mild mixed bipolar I disorder ([facility]) 08/27/2015 08/26/2021 Anxiety state 08/26/2021 documented as of this encounter (statuses as of 04/07/2024) [facility] Work Phone: 1(593) 650-371501-24-2022 History of Past illness Narrative* Problem Noted Date Diagnosed Date Resolved Date Acute cystitis 12/16/2021 01/15/2022 Adjustment disorder with mix ed anxiety and depressed mood 04/29/2021 08/26/2021 Mild mixed bipolar I disorder ([facility]) 08/27/2015 08/26/2021 Anxiety state 08/26/2021 documented as of this encounter (statuses as of 04/16/2024) [facility] Work Phone: 1(630) 344-644001-24-2022 History of Past illness Narrative* Problem Noted Date Diagnosed Date Resolved Date Acute cystitis 12/16/2021 01/15/2022 Adjustment disorder with mix ed anxiety and depressed mood 04/29/2021 08/26/2021 Mild mixed bipolar I disorder ([facility]) 08/27/2015 08/26/2021 Anxiety state 08/26/2021 documented as of this encounter (statuses as of 04/22/2024) [facility] Work Phone: 1(951) [phone] History of Past illness Narrative* Problem Noted Date Diagnosed Date Resolved Date Acute cystitis 12/16/2021 01/15/2022 Adjustment disorder with mix ed anxiety and depressed mood 04/29/2021 08/26/2021 Mild mixed bipolar I disorder ([facility]) 08/27/2015 08/26/2021 Anxiety state 08/26/2021 documented as of this encounter (statuses as of 04/25/2024) [facility] Work Phone: 1(160) 355-867401-24-2022 History of Past illness Narrative* Problem Noted Date Diagnosed Date Resolved Date Acute cystitis 12/16/2021 01/15/2022 Adjustment disorder with mix ed anxiety and depressed mood 04/29/2021 08/26/2021 Mild mixed bipolar I disorder ([facility]) 08/27/2015 08/26/2021 Anxiety state 08/26/2021 documented as of this encounter (statuses as of 05/09/2024) [email or web address] Work Phone: 1(990) 151-140901-24-2022 History of Past illness Narrative* Problem Noted Date Diagnosed Date Resolved Date Acute cystitis 12/16/2021 01/15/2022 Adjustment disorder with mix ed anxiety and depressed mood 04/29/2021 08/26/2021 Mild mixed bipolar I disorder ([facility]) 08/27/2015 08/26/2021 Anxiety state 08/26/2021 documented as of this encounter (statuses as of 05/15/2024) [email or web address] Work Phone: 1(348) 718-752301-24-2022 History of Past illness Narrative* Problem Noted Date Diagnosed Date Resolved Date Acute cystitis 12/16/2021 01/15/2022 Adjustment disorder with mix ed anxiety and depressed mood 04/29/2021 08/26/2021 Mild mixed bipolar I disorder ([facility]) 08/27/2015 08/26/2021 Anxiety state 08/26/2021 documented as of this encounter (statuses as of 06/01/2024) [facility] Work Phone: 1(469) 193-281501-24-2022 History of Past illness Narrative* Problem Noted Date Diagnosed Date Resolved Date Acute cystitis 12/16/2021 01/15/2022 Adjustment disorder with mix ed anxiety and depressed mood 04/29/2021 08/26/2021 Mild mixed bipolar I disorder ([facility]) 08/27/2015 08/26/2021 Anxiety state 08/26/2021 documented as of this encounter (statuses as of 06/17/2024) [facility] Work Phone: 1(456) [phone] History of Past illness Narrative* Problem Noted Date Diagnosed Date Resolved Date Acute cystitis 12/16/2021 01/15/2022 Adjustment disorder with mix ed anxiety and depressed mood 04/29/2021 08/26/2021 Mild mixed bipolar I disorder ([facility]) 08/27/2015 08/26/2021 Anxiety state 08/26/2021 documented as of this encounter (statuses as of 06/21/2024) [facility] Work Phone: 1(254) 889-462101-24-2022 History of Past illness Narrative* Problem Noted Date Diagnosed Date Resolved Date Acute cystitis 12/16/2021 01/15/2022 Adjustment disorder with mix ed anxiety and depressed mood 04/29/2021 08/26/2021 Mild mixed bipolar I disorder ([facility]) 08/27/2015 08/26/2021 Anxiety state 08/26/2021 documented as of this encounter (statuses as of 07/22/2024) [email or web address] Work Phone: 1(560) 544-277201-24-2022 History of Past illness Narrative* Problem Noted Date Diagnosed Date Resolved Date Acute cystitis 12/16/2021 01/15/2022 Adjustment disorder with mix ed anxiety and depressed mood 04/29/2021 08/26/2021 Mild mixed bipolar I disorder ([facility]) 08/27/2015 08/26/2021 Anxiety state 08/26/2021 documented as of this encounter (statuses as of 07/31/2024) [email or web address] Work Phone: 1(576) 157-362701-24-2022 History of Past illness Narrative* Problem Noted Date Diagnosed Date Resolved Date Acute cystitis 12/16/2021 01/15/2022 Adjustment disorder with mix ed anxiety and depressed mood 04/29/2021 08/26/2021 Mild mixed bipolar I disorder ([facility]) 08/27/2015 08/26/2021 Anxiety state 08/26/2021 documented as of this encounter (statuses as of 08/14/2024) [facility] Work Phone: 1(561) 487-524301-24-2022 History of Past illness Narrative* Problem Noted Date Diagnosed Date Resolved Date Acute cystitis 12/16/2021 01/15/2022 Adjustment disorder with mix ed anxiety and depressed mood 04/29/2021 08/26/2021 Mild mixed bipolar I disorder ([facility]) 08/27/2015 08/26/2021 Anxiety state 08/26/2021 documented as of this encounter (statuses as of 09/11/2024) [facility] Work Phone: 1(435) 162-969001-24-2022 History of Past illness Narrative* Problem Noted Date Diagnosed Date Resolved Date Acute cystitis 12/16/2021 01/15/2022 Adjustment disorder with mix ed anxiety and depressed mood 04/29/2021 08/26/2021 Mild mixed bipolar I disorder ([facility]) 08/27/2015 08/26/2021 Anxiety state 08/26/2021 documented as of this encounter (statuses as of 09/26/2024) [email or web address] Work Phone: 1(363) 882-615501-24-2022 History of Past illness Narrative* Problem Noted Date Diagnosed Date Resolved Date Acute cystitis 12/16/2021 01/15/2022 Adjustment disorder with mix ed anxiety and depressed mood 04/29/2021 08/26/2021 Mild mixed bipolar I disorder ([facility]) 08/27/2015 08/26/2021 Anxiety state 08/26/2021 documented as of this encounter (statuses as of 10/03/2024) [email or web address] Work Phone: 1(369) 768-469801-24-2022 History of Past illness Narrative* Problem Noted Date Diagnosed Date Resolved Date Acute cystitis 12/16/2021 01/15/2022 Adjustment disorder with mix ed anxiety and depressed mood 04/29/2021 08/26/2021 Mild mixed bipolar I disorder ([facility]) 08/27/2015 08/26/2021 Anxiety state 08/26/2021 documented as of this encounter (statuses as of 10/06/2024) [facility] Work Phone: 1(951) 732-703301-24-2022 History of Past illness Narrative* Problem Noted Date Diagnosed Date Resolved Date Acute cystitis 12/16/2021 01/15/2022 Adjustment disorder with mix ed anxiety and depressed mood 04/29/2021 08/26/2021 Mild mixed bipolar I disorder ([facility]) 08/27/2015 08/26/2021 Anxiety state 08/26/2021 documented as of this encounter (statuses as of 10/11/2024) [email or web address] Work Phone: 1([phone]) 866-765201-24-2022 History of Past illness Narrative* Problem Noted Date Diagnosed Date Resolved Date Acute cystitis 12/16/2021 01/15/2022 Adjustment disorder with mix ed anxiety and depressed mood 04/29/2021 08/26/2021 Mild mixed bipolar I disorder ([facility]) 08/27/2015 08/26/2021 Anxiety state 08/26/2021 documented as of this encounter (statuses as of 10/14/2024) [email or web address] Work Phone: 1(651) 256-756301-24-2022 History of Past illness Narrative* Problem Noted Date Diagnosed Date Resolved Date Acute cystitis 12/16/2021 01/15/2022 Adjustment disorder with mix ed anxiety and depressed mood 04/29/2021 08/26/2021 Mild mixed bipolar I disorder ([facility]) 08/27/2015 08/26/2021 Anxiety state 08/26/2021 documented as of this encounter (statuses as of 10/31/2024) [employer] Phone: 1(194) 713-370801-24-2022 History of Past illness Narrative* Problem Noted Date Diagnosed Date Resolved Date Acute cystitis 12/16/2021 01/15/2022 Adjustment disorder with mix ed anxiety and depressed mood 04/29/2021 08/26/2021 Mild mixed bipolar I disorder ([facility]) 08/27/2015 08/26/2021 Anxiety state 08/26/2021 documented as of this encounter (statuses as of 11/27/2024) [email or web address] Work Phone: 1(537) 980-504501-24-2022 History of Past illness Narrative* Problem Noted Date Diagnosed Date Resolved Date Acute cystitis 12/16/2021 01/15/2022 Adjustment disorder with mix ed anxiety and depressed mood 04/29/2021 08/26/2021 Mild mixed bipolar I disorder ([facility]) 08/27/2015 08/26/2021 Anxiety state 08/26/2021 documented as of this encounter (statuses as of 11/28/2024) [employer] [facility] Work Phone: 1(374) 503-371901-24-2022 History of Past illness Narrative* Problem Noted Date Diagnosed Date Resolved Date Acute cystitis 12/16/2021 01/15/2022 Adjustment disorder with mix ed anxiety and depressed mood 04/29/2021 08/26/2021 Mild mixed bipolar I disorder ([facility]) 08/27/2015 08/26/2021 Anxiety state 08/26/2021 documented as of this encounter (statuses as of 12/22/2024) [facility] Work Phone: 1([phone]) 937-935601-24-2022 History of Past illness Narrative* Problem Noted Date Diagnosed Date Resolved Date Acute cystitis 12/16/2021 01/15/2022 Adjustment disorder with mix ed anxiety and depressed mood 04/29/2021 08/26/2021 Mild mixed bipolar I disorder ([facility]) 08/27/2015 08/26/2021 Anxiety state 08/26/2021 documented as of this encounter (statuses as of 12/30/2024) [email or web address] Work Phone: 1(144) 272-512601-24-2022 History of Past illness Narrative* Problem Noted Date Diagnosed Date Resolved Date Acute cystitis 12/16/2021 01/15/2022 Adjustment disorder with mix ed anxiety and depressed mood 04/29/2021 08/26/2021 Mild mixed bipolar I disorder ([facility] [facility] 08/27/2015 08/26/2021 Anxiety state 08/26/2021 documented as of this encounter (statuses as of 12/30/2024) [facility] Work Phone: 1(258) 417-562401-24-2022 History of Past illness Narrative* Problem Noted Date Diagnosed Date Resolved Date Acute cystitis 12/16/2021 01/15/2022 Adjustment disorder with mix ed anxiety and depressed mood 04/29/2021 08/26/2021 Mild mixed bipolar I disorder (FORM[facility]LY [facility]) 08/27/2015 08/26/2021 Anxiety state 08/26/2021 documented as of this encounter (statuses as of 01/06/2025) [facility] Work Phone: 1(675) 389-205901-24-2022 History of Past illness Narrative* Problem Noted Date Diagnosed Date Resolved Date Acute cystitis 12/16/2021 01/15/2022 Adjustment disorder with mix ed anxiety and depressed mood 04/29/2021 08/26/2021 Mild mixed bipolar I disorder ([facility]) 08/27/2015 08/26/2021 Anxiety state 08/26/2021 documented as of this encounter (statuses as of 01/13/2025) [facility] Work Phone: 1(595) 248-869901-24-2022 History of Past illness Narrative* Problem Noted Date Diagnosed Date Resolved Date Acute cystitis 12/16/2021 01/15/2022 Adjustment disorder with mix ed anxiety and depressed mood 04/29/2021 08/26/2021 Mild mixed bipolar I disorder ([facility]) 08/27/2015 08/26/2021 Anxiety state 08/26/2021 documented as of this encounter (statuses as of 01/19/2025) [facility] Work Phone: 1(809) 932-338801-24-2022 History of Past illness Narrative* Problem Noted Date Diagnosed Date Resolved Date Acute cystitis 12/16/2021 01/15/2022 Adjustment disorder with mix ed anxiety and depressed mood 04/29/2021 08/26/2021 Mild mixed bipolar I disorder ([facility]) 08/27/2015 08/26/2021 Anxiety state 08/26/2021 documented as of this encounter (statuses as of 01/26/2025) [facility] Work Phone: 1(589) 969-275301-24-2022 History of Past illness Narrative* Problem Noted Date Diagnosed Date Resolved Date Acute cystitis 12/16/2021 01/15/2022 Adjustment disorder with mix ed anxiety and depressed mood 04/29/2021 08/26/2021 Mild mixed bipolar I disorder ([facility]) 08/27/2015 08/26/2021 Anxiety state 08/26/2021 documented as of this encounter (statuses as of 02/09/2025) [facility] Work Phone: 1(921) 668-728101-24-2022 History of Past illness Narrative* Problem Noted Date Diagnosed Date Resolved Date Acute cystitis 12/16/2021 01/15/2022 Adjustment disorder with mix ed anxiety and depressed mood 04/29/2021 08/26/2021 Mild mixed bipolar I disorder ([facility]) 08/27/2015 08/26/2021 Anxiety state 08/26/2021 documented as of this encounter (statuses as of 02/10/2025) [facility] Work Phone: 1(348) 940-153001-24-2022 History of Past illness Narrative* Problem Noted Date Diagnosed Date Resolved Date Acute cystitis 12/16/2021 01/15/2022 Adjustment disorder with mix ed anxiety and depressed mood 04/29/2021 08/26/2021 Mild mixed bipolar I disorder ([facility]) 08/27/2015 08/26/2021 Anxiety state 08/26/2021 documented as of this encounter (statuses as of 02/13/2025) [facility] Work Phone: 1(319) 215-976001-24-2022 History of Past illness Narrative* Problem Noted Date Diagnosed Date Resolved Date Acute cystitis 12/16/2021 01/15/2022 Adjustment disorder with mix ed anxiety and depressed mood 04/29/2021 08/26/2021 Mild mixed bipolar I disorder ([facility]) 08/27/2015 08/26/2021 Anxiety state 08/26/2021 documented as of this encounter (statuses as of 02/16/2025) [facility] Work Phone: 1(597) 431-691701-24-2022 History of Past illness Narrative* Problem Noted Date Diagnosed Date Resolved Date Acute cystitis 12/16/2021 01/15/2022 Adjustment disorder with mix ed anxiety and depressed mood 04/29/2021 08/26/2021 Mild mixed bipolar I disorder ([facility]) 08/27/2015 08/26/2021 Anxiety state 08/26/2021 documented as of this encounter (statuses as of 02/21/2025) [facility] Work Phone: 1(908) 523-675601-24-2022 History of Past illness Narrative* Problem Noted Date Diagnosed Date Resolved Date Acute cystitis 12/16/2021 01/15/2022 Adjustment disorder with mix ed anxiety and depressed mood 04/29/2021 08/26/2021 Mild mixed bipolar I disorder ([facility]) 08/27/2015 08/26/2021 Anxiety state 08/26/2021 documented as of this encounter (statuses as of 03/02/2025) [facility] Work Phone: 1(963) 522-985801-24-2022 History of Past illness Narrative* Problem Noted Date Diagnosed Date Resolved Date Acute cystitis 12/16/2021 01/15/2022 Adjustment disorder with mix ed anxiety and depressed mood 04/29/2021 08/26/2021 Mild mixed bipolar I disorder ([facility]) 08/27/2015 08/26/2021 Anxiety state 08/26/2021 documented as of this encounter (statuses as of 03/03/2025) [email or web address] Work Phone: 1(805) 268-807401-24-2022 History of Past illness Narrative* Problem Noted Date Diagnosed Date Resolved Date Acute cystitis 12/16/2021 01/15/2022 Adjustment disorder with mix ed anxiety and depressed mood 04/29/2021 08/26/2021 Mild mixed bipolar I disorder ([facility]) 08/27/2015 08/26/2021 Anxiety state 08/26/2021 documented as of this encounter (statuses as of 03/04/2025) [email or web address] Work Phone: 1(327) 651-881301-24-2022 History of Past illness Narrative* Problem Noted Date Diagnosed Date Resolved Date Acute cystitis 12/16/2021 01/15/2022 Adjustment disorder with mix ed anxiety and depressed mood 04/29/2021 08/26/2021 Mild mixed bipolar I disorder ([facility]) 08/27/2015 08/26/2021 Anxiety state 08/26/2021 documented as of this encounter (statuses as of 03/13/2025) [email or web address] Work Phone: 1(143) 220-645501-24-2022 History of Past illness Narrative* Problem Noted Date Diagnosed Date Resolved Date Acute cystitis 12/16/2021 01/15/2022 Adjustment disorder with mix ed anxiety and depressed mood 04/29/2021 08/26/2021 Mild mixed bipolar I disorder ([facility]) 08/27/2015 08/26/2021 Anxiety state 08/26/2021 documented as of this encounter (statuses as of 03/13/2025) [facility] Work Phone: 1(592) 217-164501-24-2022 History of Past illness Narrative* Problem Noted Date Diagnosed Date Resolved Date Acute cystitis 12/16/2021 01/15/2022 Adjustment disorder with mix ed anxiety and depressed mood 04/29/2021 08/26/2021 Mild mixed bipolar I disorder ([facility]) 08/27/2015 08/26/2021 Anxiety state 08/26/2021 documented as of this encounter (statuses as of 03/15/2025) [facility] Work Phone: 1(901) 449-735101-24-2022 History of Past illness Narrative* Problem Noted Date Diagnosed Date Resolved Date Acute cystitis 12/16/2021 01/15/2022 Adjustment disorder with mix ed anxiety and depressed mood 04/29/2021 08/26/2021 Mild mixed bipolar I disorder ([facility]) 08/27/2015 08/26/2021 Anxiety state 08/26/2021 documented as of this encounter (statuses as of 03/20/2025) [facility] Work Phone: 1(174) 848-440601-24-2022 History of Past illness Narrative* Problem Noted Date Diagnosed Date Resolved Date Acute cystitis 12/16/2021 01/15/2022 Adjustment disorder with mix ed anxiety and depressed mood 04/29/2021 08/26/2021 Mild mixed bipolar I disorder ([facility]) 08/27/2015 08/26/2021 Anxiety state 08/26/2021 documented as of this encounter (statuses as of 03/25/2025) [facility] Work Phone: 1(217) 941-969901-24-2022 History of Past illness Narrative* Problem Noted Date Diagnosed Date Resolved Date Acute cystitis 12/16/2021 01/15/2022 Adjustment disorder with mix ed anxiety and depressed mood 04/29/2021 08/26/2021 Mild mixed bipolar I disorder ([facility]) 08/27/2015 08/26/2021 Anxiety state 08/26/2021 documented as of this encounter (statuses as of 04/24/2025) [facility] Work Phone: 1(448) 370-649601-24-2022 History of Past illness Narrative* Problem Noted Date Diagnosed Date Resolved Date Acute cystitis 12/16/2021 01/15/2022 Adjustment disorder with mix ed anxiety and depressed mood 04/29/2021 08/26/2021 Mild mixed bipolar I disorder ([facility]) 08/27/2015 08/26/2021 Anxiety state 08/26/2021 documented as of this encounter (statuses as of 05/02/2025) [facility] Work Phone: 1(149) 971-160801-24-2022 History of Past illness Narrative* Problem Noted Date Diagnosed Date Resolved Date Acute cystitis 12/16/2021 01/15/2022 Adjustment disorder with mix ed anxiety and depressed mood 04/29/2021 08/26/2021 Mild mixed bipolar I disorder ([facility]) 08/27/2015 08/26/2021 Anxiety state 08/26/2021 documented as of this encounter (statuses as of 05/09/2025) [email or web address] Work Phone: 1(564) 565-756101-24-2022 History of Past illness Narrative* Problem Noted Date Diagnosed Date Resolved Date Acute cystitis 12/16/2021 01/15/2022 Adjustment disorder with mix ed anxiety and depressed mood 04/29/2021 08/26/2021 Mild mixed bipolar I disorder ([facility]) 08/27/2015 08/26/2021 Anxiety state 08/26/2021 documented as of this encounter (statuses as of 05/11/2025) [email or web address] Work Phone: 1(127) [phone] History of Past illness Narrative* Problem Noted Date Diagnosed Date Resolved Date Acute cystitis 12/16/2021 01/15/2022 Adjustment disorder with mix ed anxiety and depressed mood 04/29/2021 08/26/2021 Mild mixed bipolar I disorder ([facility]) 08/27/2015 08/26/2021 Anxiety state 08/26/2021 documented as of this encounter (statuses as of 05/11/2025) [facility] Work Phone: 1(407) 797-198701-24-2022 History of Past illness Narrative* Problem Noted Date Diagnosed Date Resolved Date Acute cystitis 12/16/2021 01/15/2022 Adjustment disorder with mix ed anxiety and depressed mood 04/29/2021 08/26/2021 Mild mixed bipolar I disorder ([facility]) 08/27/2015 08/26/2021 Anxiety state 08/26/2021 documented as of this encounter (statuses as of 05/15/2025) [facility] Work Phone: 1(568) 383-563701-24-2022 History of Past illness Narrative* Problem Noted Date Diagnosed Date Resolved Date Acute cystitis 12/16/2021 01/15/2022 Adjustment disorder with mix ed anxiety and depressed mood 04/29/2021 08/26/2021 Mild mixed bipolar I disorder ([facility]) 08/27/2015 08/26/2021 Anxiety state 08/26/2021 documented as of this encounter (statuses as of 05/16/2025) [facility] Work Phone: 1(296) 701-314701-24-2022 History of Past illness Narrative* Problem Noted Date Diagnosed Date Resolved Date Acute cystitis 12/16/2021 01/15/2022 Adjustment disorder with mix ed anxiety and depressed mood 04/29/2021 08/26/2021 Mild mixed bipolar I disorder ([facility]) 08/27/20 15 08/26/2021 Anxiety state 08/26/2021 documented as of this encounter (statuses as of 05/18/2025) [email or web address] Work Phone: 1(914) 215-822201-24-2022 History of Past illness Narrative* Problem Noted Date Diagnosed Date Resolved Date Acute cystitis 12/16/2021 01/15/2022 Adjustment disorder with mix ed anxiety and depressed mood 04/29/2021 08/26/2021 Mild mixed bipolar I disorder ([facility]) 08/27/20 15 08/26/2021 Anxiety state 08/26/2021 documented as of this encounter (statuses as of 05/18/2025) [email or web address] Work Phone: 1(729) 434-944201-24-2022 History of Past illness Narrative* Problem Noted Date Diagnosed Date Resolved Date Acute cystitis 12/16/2021 01/15/2022 Adjustment disorder with mix ed anxiety and depressed mood 04/29/2021 08/26/2021 Mild mixed bipolar I disorder ([facility]) 08/27/20 15 08/26/2021 Anxiety state 08/26/2021 documented as of this encounter (statuses as of 05/24/2025) [facility] Work Phone: 1(219) 100-683801-24-2022 History of Past illness Narrative* Problem Noted Date Diagnosed Date Resolved Date Acute cystitis 12/16/2021 01/15/2022 Adjustment disorder with mix ed anxiety and depressed mood 04/29/2021 08/26/2021 Mild mixed bipolar I disorder ([facility]) 08/27/20 15 08/26/2021 Anxiety state 08/26/2021 documented as of this encounter (statuses as of 05/29/2025) [facility] Work Phone: 1(199) [phone] History of Past illness Narrative* Problem Noted Date Diagnosed Date Resolved Date Acute cystitis 12/16/2021 01/15/2022 Adjustment disorder with mix ed anxiety and depressed mood 04/29/2021 08/26/2021 Mild mixed bipolar I disorder ([facility]) 08/27/20 15 08/26/2021 Anxiety state 08/26/2021 documented as of this encounter (statuses as of 06/25/2025) [facility] Work Phone: 1(101) 508-818401-24-2022 History of Past illness Narrative* Problem Noted Date Diagnosed Date Resolved Date Acute cystitis 12/16/2021 01/15/2022 Adjustment disorder with mix ed anxiety and depressed mood 04/29/2021 08/26/2021 Mild mixed bipolar I disorder ([facility]) 08/27/20 15 08/26/2021 Anxiety state 08/26/2021 documented as of this encounter (statuses as of 07/04/2025) [facility] Work Phone: 1(122) 714-452101-24-2022 History of Past illness Narrative* Problem Noted Date Diagnosed Date Resolved Date Acute cystitis 12/16/2021 01/15/2022 Adjustment disorder with mix ed anxiety and depressed mood 04/29/2021 08/26/2021 Mild mixed bipolar I disorder ([facility]) 08/27/20 15 08/26/2021 Anxiety state 08/26/2021 documented as of this encounter (statuses as of 07/05/2025) [facility] Work Phone: 1(988) 435-191601-24-2022 History of Past illness Narrative* Problem Noted Date Diagnosed Date Resolved Date Acute cystitis 12/16/2021 01/15/2022 Adjustment disorder with mix ed anxiety and depressed mood 04/29/2021 08/26/2021 Mild mixed bipolar I disorder ([facility]) 08/27/20 15 08/26/2021 Anxiety state 08/26/2021 documented as of this encounter (statuses as of 07/10/2025) [facility] Work Phone: 1(655) 279-750901-24-2022 History of Past illness Narrative* Problem Noted Date Diagnosed Date Resolved Date Acute cystitis 12/16/2021 01/15/2022 Adjustment disorder with mix ed anxiety and depressed mood 04/29/2021 08/26/2021 Mild mixed bipolar I disorder ([facility]) 08/27/20 15 08/26/2021 Anxiety state 08/26/2021 documented as of this encounter (statuses as of 07/16/2025) [facility] Work Phone: 1(198) 243-614701-24-2022 History of Past illness Narrative* Problem Noted Date Diagnosed Date Resolved Date Acute cystitis 12/16/2021 01/15/2022 Adjustment disorder with mix ed anxiety and depressed mood 04/29/2021 08/26/2021 Mild mixed bipolar I disorder ([facility]) 08/27/20 15 08/26/2021 Anxiety state 08/26/2021 documented as of this encounter (statuses as of 07/30/2025) [email or web address] Work Phone: 1(177) 739-890101-24-2022 History of Past illness Narrative* Problem Noted Date Diagnosed Date Resolved Date Acute cystitis 12/16/2021 01/15/2022 Adjustment disorder with mix ed anxiety and depressed mood 04/29/2021 08/26/2021 Mild mixed bipolar I disorder ([facility]) 08/27/20 15 08/26/2021 Anxiety state 08/26/2021 documented as of this encounter (statuses as of 08/04/2025) [facility] Work Phone: 1(934) 745-497001-24-2022 History of Past illness Narrative* Problem Noted Date Diagnosed Date Resolved Date Acute cystitis 12/16/2021 01/15/2022 Adjustment disorder with mix ed anxiety and depressed mood 04/29/2021 08/26/2021 Mild mixed bipolar I disorder ([facility]) 08/27/20 15 08/26/2021 Anxiety state 08/26/2021 documented as of this encounter (statuses as of 08/11/2025) [facility] Work Phone: 1([phone]) 733-679201-24-2022 History of Past illness Narrative* Problem Noted Date Diagnosed Date Resolved Date Acute cystitis 12/16/2021 01/15/2022 Adjustment disorder with mix ed anxiety and depressed mood 04/29/2021 08/26/2021 Mild mixed bipolar I disorder ([facility]) 08/27/20 15 08/26/2021 Anxiety state 08/26/2021 documented as of this encounter (statuses as of 08/20/2025) [email or web address] Work Phone: 1(293) 455-713501-24-2022 History of Past illness Narrative* Problem Noted Date Diagnosed Date Resolved Date Acute cystitis 12/16/2021 01/15/2022 Adjustment disorder with mix ed anxiety and depressed mood 04/29/2021 08/26/2021 Mild mixed bipolar I disorder ([facility]) 08/27/20 15 08/26/2021 Anxiety state 08/26/2021 documented as of this encounter (statuses as of 08/20/2025) [email or web address] Work Phone: 1(301) 570-124901-24-2022 History of Past illness Narrative* Problem Noted Date Diagnosed Date Resolved Date Acute cystitis 12/16/2021 01/15/2022 Adjustment disorder with mix ed anxiety and depressed mood 04/29/2021 08/26/2021 Mild mixed bipolar I disorder ([facility]) 08/27/20 15 08/26/2021 Anxiety state 08/26/2021 documented as of this encounter (statuses as of 08/25/2025) [email or web address] Work Phone: 1(777) 638-688101-24-2022 History of Past illness Narrative* Problem Noted Date Diagnosed Date Resolved Date Acute cystitis 12/16/2021 01/15/2022 Adjustment disorder with mix ed anxiety and depressed mood 04/29/2021 08/26/2021 Mild mixed bipolar I disorder 08/27/2015 08/26/2021 Anxiety state 08/26/2021 documented as of this encounter (statuses as of 08/31/2025) [facility] Work Phone: 1(482) 664-370201-24-2022 History of Past illness Narrative* Problem Noted Date Diagnosed Date Resolved Date Acute cystitis 12/16/2021 01/15/2022 Adjustment disorder with mix ed anxiety and depressed mood 04/29/2021 08/26/2021 Mild mixed bipolar I disorder 08/27/2015 08/26/2021 Anxiety state 08/26/2021 documented as of this encounter (statuses as of 09/07/2025) [facility] Work Phone: 1([phone]) 416-933601-24-2022 History of Past illness Narrative* Problem Noted Date Diagnosed Date Resolved Date Acute cystitis 12/16/2021 01/15/2022 Adjustment disorder with mix ed anxiety and depressed mood 04/29/2021 08/26/2021 Mild mixed bipolar I disorder 08/27/2015 08/26/2021 Anxiety state 08/26/2021 documented as of this encounter (statuses as of 09/14/2025) [facility] Work Phone: 1(793) 762-856801-24-2022 History of Past illness Narrative* Problem Noted Date Diagnosed Date Resolved Date Acute cystitis 12/16/2021 01/15/2022 Adjustment disorder with mix ed anxiety and depressed mood 04/29/2021 08/26/2021 Mild mixed bipolar I disorder 08/27/2015 08/26/2021 Anxiety state 08/26/2021 documented as of this encounter (statuses as of 09/24/2025) [email or web address] Work Phone: 1(141) 240-157001-24-2022 History of Past illness Narrative* Problem Noted Date Diagnosed Date Resolved Date Acute cystitis 12/16/2021 01/15/2022 Adjustment disorder with mix ed anxiety and depressed mood 04/29/2021 08/26/2021 Mild mixed bipolar I disorder 08/27/2015 08/26/2021 Anxiety state 08/26/2021 documented as of this encounter (statuses as of 10/02/2025) [facility] Work Phone: 1(393) 502-903405-26-2021 History of Past illness Narrative* Problem Noted [...] of this encounter (statuses as of 03/04/2022) [facility] History of Past illness Narrative* Problem [...] of this encounter (statuses as of 03/06/2022) [facility] History of Past illness Narrative* Problem [...] of this encounter (statuses as of 03/12/2022) [facility] History of Past illness Narrative* Problem [...] of this encounter (statuses as of 03/17/2022) [facility] History of Past illness Narrative* Problem [...] of this encounter (statuses as of 04/09/2022) [facility] History of Past illness Narrative* Problem [...] of this encounter (statuses as of 04/19/2022) [facility] History of Past illness Narrative* Problem [...] of this encounter (statuses as of 05/06/2022) [facility] History of Past illness Narrative* Problem [...] of this encounter (statuses as of 05/07/2022) [facility] of Past illness Narrative* Problem [...] of this encounter (statuses as of 05/13/2022) [facility] of Past illness Narrative* Problem [...] of this encounter (statuses as of 05/15/2022) [facility] of Past illness Narrative* Problem [...] of this encounter (statuses as of 05/27/2022) [facility] of Past illness Narrative* Problem [...] of this encounter (statuses as of 06/03/2022) [facility] of Past illness Narrative* Problem [...] of this encounter (statuses as of 06/03/2022) [facility] of Past illness Narrative* Problem [...] of this encounter (statuses as of 06/03/2022) [facility] of Past illness Narrative* Problem [...] of this encounter (statuses as of 06/11/2022) [facility] Past illness Narrative* Problem [...] of this encounter (statuses as of 06/12/2022) [facility] Past illness Narrative* Problem [...] of this encounter (statuses as of 06/24/2022) [facility] of Past illness Narrative* Problem [...] of this encounter (statuses as of 06/25/2022) [facility] Past illness Narrative* Problem [...] of this encounter (statuses as of 06/25/2022) [facility] Past [facility] Narrative* Problem [...] of this encounter (statuses as of 06/26/2022) [facility] Past illness Narrative* Problem [...] of this encounter (statuses as of 06/27/2022) [facility] Past illness Narrative* Problem [...] of this encounter (statuses as of 06/30/2022) [facility] Past illness Narrative* Problem [...] of this encounter (statuses as of 07/03/2022) [facility] Past [facility] Narrative* Problem [...] of this encounter (statuses as of 07/03/2022) [facility] Past [facility] Narrative* Problem [...] of this encounter (statuses as of 07/10/2022) [facility] Past illness Narrative* Problem [...] of this encounter (statuses as of 07/16/2022) [facility] Narrative* Problem [...] of this encounter (statuses as of 07/21/2022) [facility] Narrative* Problem [...] of this encounter (statuses as of 09/04/2022) [facility] Araseli Babb [facility] Note Date/Time March 10, 2025 9:2 7am [facility] Medical Records Department [address] [place] [address] Emergency Department Summary 03/10/25 MR#: [id number] Acct: [id number] Name: MATTHEW HUANG Rep #:[id number] : 1990 35 [...] or chills. She states she moved to [place] yesterday the family. She is never any like this before. Did not take anything for symptoms prior arrival. No other complaints or concerns at this time. [facility] Medical History Bipolar disorder Gestational diabetes delivery [...] mg tablet 200 mg PO DAILY 04/18/25 Unk nown History risperidone 0.5 mg tablet [...] multiple frequent ER visits and hospitalizations at [facility] however they have been for allergic reactions [...] numbness or weakness low suspicion for [place] syndrome. On repeat evaluation patient states she [...] Primary [Primary Care Provider] - Print Language: Niuean What to do if you have Problems For any increased pain, shortness of breath, bleeding, nausea or vomiting, chestpain, or any unexpected problems, contact your Primary Care Provider. Call [facility] ([phone]) or report to the closest Emergency Room. Call 911 if necessary. 03/10/25 07 <Electronically signed by Araseli Babb DO> Cosigner [...] also does not come across as a [place]? syndrome. She has normal sensation. 03/10/25 09<Electronically signed by Delano Zuniga MD> Cosigner Signature (if applicable): cc: No Primary Care Physician ~* Signed [facility] Work Phone: Evaluation note* Diagnosis care in [...] and depressed mood [facility] Diagnosis Encounter for follow-up ultrasound of anatomy- Primary Medication exposure during first trimester of Supervision of other high-risk 20 weeks gestation of state, incidental [facility] Diagnosis Maternal care for (suspected) abnormality and damage, unspecified, fetus 1 [facility] Diagnosis care in second trimester- Primary 25 weeks gestation of state, incidental [facility] Diagnosis care, subsequent , third trimester- Primary Encounter for long-term (current) use of medications Encounter for long-term (current) use of other medications [facility] Diagnosis Gestational diabetes mellitus, class A1- Primary Abnormal maternal glucose tolerance, complicating , childbirth, or the puerperium, unspecified as to episode of care [facility] Diagnosis Gestational diabetes mellitus, class A1 Abnormal maternal glucose tolerance, complicating , childbirth, or the puerperium, unspecified as to episode of care [facility] Diagnosis care in third trimester- Primary Diet controlled gestational diabetes mellitus (GDM) in third trimester- Primary Gestational diabetes mellitus (GDM) affecting second [facility] Diagnosis care in third trimester- Primary 32 weeks gestation of state, incidental Gestational diabetes mellitus (GDM) affecting second Pyelectasis of fetus on ultrasound Abnormal findings on screening [facility]* Diagnosis Diet controlled gestational diabetes mellitus (GDM) in third trimester [facility] Suspected problem with growth not found- Primary 35 weeks gestation of state, incidental Pyelectasis of fetus on ultrasound Abnormal findings on screening Gestational diabetes mellitus, class A1 Abnormal maternal glucose tolerance, complicating , childbirth, or the puerperium, unspecified as to episode of care [facility] Diagnosis care in third trimester- Primary Gestational diabetes mellitus (GDM) affecting second Pyelectasis of fetus on ultrasound Abnormal findings on screening Anxiety state Anxiety state, unspecified Pelvic pressure in Other specified complication, antepartum Breech presentation with problem, single or unspecified fetus documented [facility]* Diagnosis Diet controlled gestational diabetes mellitus (GDM) in third trimester- Primary [facility] Diagnosis care in third trimester- Primary 37 weeks gestation of state, incidental care in third trimester 36 weeks gestation of state, incidental Breech presentation, single or unspecified fetus documented in this encounter [facility] note* Diagnosis Bilateral occipital neuralgia- Primary Other syndromes affecting cervical region Migraine without aura and without status migrainosus, not intractable Migraine without aura, without mention of intractable migraine without mention of status migrainosus 38 weeks gestation of state, incidental care in third trimester 36 weeks gestation of state, incidental Breech presentation, single or unspecified fetus [facility] Diagnosis Encounter for insertion of mirena IUD- Primary Encounter for insertion of intrauterine contraceptive device History of gestational diabetes Personal history of gestational diabetes care and examination [Z39.2 (ICD-10-CM)] Routine follow-up documented [facility] Diagnosis UTI symptoms- Primary Other symptoms involving urinary system documented in this encounter [facility] note* Diagnosis Intractable migraine without aura and without status migrainosus- Primary Migraine without aura, with intractable migraine, so stated, without mention of status migrainosus Lightheadedness Dizziness and giddiness Exertional headache Headache documented in this encounter [facility] noteNo assessment information [facility]WMer[facility] Work Phone: Evaluation [facility]* Diagnosis Bipolar disorder, current episode mixed, severe, without psychotic features (HCC-CMS)- Primary Bipolar I disorder, most recent episode (or current) mixed, severe, without mention of psychotic behavior Generalized anxiety disorder documented in this encounter [facility] Work Phone: Evaluation note* Diagnosis Acute otitis media, right- Primary Unspecified otitis media Nausea and vomiting, unspecified vomiting type documented in this encounter [facility] note* Diagnosis Bipolar disorder, current episode mixed, severe, without psychotic features (HCC-CMS)- Primary Bipolar I disorder, most recent episode (or current) mixed, severe, without mention of psychotic behavior documented in this encounter [facility] Work Phone: Evaluation note* Diagnosis Bipolar disorder in partial remission, most recent episode unspecified type (HCC-CMS) documented in this encounter [facility] Work Phone: Evaluation note* Diagnosis Fluid level behind tympanic membrane of both ears- Primary Tinnitus of right ear Unspecified tinnitus Hearing difficulty, bilateral documented in this encounter [facility] note* Diagnosis Wellness examination- Primary Rash of foot Nevus Benign neoplasm of skin, site unspecified Constipation, unspecified constipation type Atypical chest pain Other chest pain documented in this encounter [facility] note* Diagnosis Bipolar disorder, current episode mixed, severe, without psychotic features (HCC-CMS)- Primary Bipolar I disorder, most recent episode (or current) mixed, severe, without mention of psychotic behavior documented in this encounter [employer] Phone: Evaluation note* Diagnosis Bipolar disorder in partial remission, most recent episode unspecified type (HCC-CMS)- Primary documented in this encounter [facility] Work Phone: Evaluation note* Diagnosis Bipolar disorder, current episode mixed, severe, without psychotic features (HCC-CMS)- Primary Bipolar I disorder, most recent episode (or current) mixed, severe, without mention of psychotic behavior Generalized anxiety disorder documented in this encounter [employer] Phone: Evaluation note* Diagnosis Bipolar disorder, current episode mixed, severe, without psychotic features (HCC-CMS)- Primary Bipolar I disorder, most recent episode (or current) mixed, severe, without mention of psychotic behavior documented in this encounter [employer] Phone: Evaluation note* Diagnosis Bipolar disorder in partial remission, most recent episode unspecified type (HCC-CMS)- Primary Generalized anxiety disorder documented in this encounter [email or web address] Work Phone: Evaluation note* Diagnosis Bipolar disorder, current episode mixed, severe, without psychotic features (HCC-CMS)- Primary Bipolar I disorder, most recent episode (or current) mixed, severe, without mention of psychotic behavior Generalized anxiety disorder documented in this encounter [email or web address] Work Phone: evaluation note* Diagnosis Generalized anxiety disorder- Primary Post traumatic stress disorder Posttraumatic stress disorder Bipolar disorder, current episode mixed, severe, without psychotic features (HCC-CMS)- Primary Bipolar I disorder, most recent episode (or current) mixed, severe, without mention of psychotic behavior Generalized anxiety disorder documented in this encounter [email or web address] Work Phone: Evaluation note* Diagnosis Bipolar disorder, current episode mixed, severe, without psychotic features (HCC-CMS)- Primary Bipolar I disorder, most recent episode (or current) mixed, severe, without mention of psychotic behavior Generalized anxiety disorder documented in this encounter [employer] Phone: Evaluation note* Diagnosis Bipolar disorder, current episode mixed, severe, without psychotic features (HCC-CMS)- Primary Bipolar I disorder, most recent episode (or current) mixed, severe, without mention of psychotic behavior Generalized anxiety disorder documented in this encounter [employer] Phone: Evaluation note* Diagnosis Generalized anxiety disorder- Primary Post traumatic stress disorder Posttraumatic stress disorder documented in this encounter [email or web address] Work Phone: Evaluation note* Diagnosis Bipolar disorder, current episode mixed, severe, without psychotic features (HCC-CMS)- Primary Bipolar I disorder, most recent episode (or current) mixed, severe, without mention of psychotic behavior documented in this encounter [employer] Phone: Evaluation note* Diagnosis Generalized anxiety disorder Bipolar disorder in partial remission, most recent episode unspecified type (HCC-CMS) documented in this encounter [employer] Phone: Evaluation note* Diagnosis Bipolar disorder, current episode mixed, severe, without psychotic features (HCC-CMS)- Primary Bipolar I disorder, most recent episode (or current) mixed, severe, without mention of psychotic behavior Generalized anxiety disorder documented in this encounter [facility] [place] [employer] Phone: Evaluation note* Diagnosis Bipolar II disorder (HCC-CMS)- Primary Other bipolar disorders documented in this encounter [facility] [employer] Phone: Evaluation note* Diagnosis Bipolar disorder, current episode mixed, severe, without psychotic features (HCC-CMS)- Primary Bipolar I disorder, most recent episode (or current) mixed, severe, without mention of psychotic behavior documented in this encounter [facility] [place] [employer] Phone: Evaluation note* Diagnosis Intractable chronic migraine without aura and without status migrainosus- Primary Chronic migraine without aura, with intractable migraine, so stated, without mention of status migrainosus [facility]* Diagnosis Generalized anxiety disorder- Primary Obsessive-compulsive disorder, unspecified type documented in this encounter [facility] [place] [employer] Phone: Evaluation note* Diagnosis Bacterial sinusitis- Primary Unspecified sinusitis (chronic) documented in this encounter [facility] note* Diagnosis Obsessive-compulsive disorder, unspecified type- Primary Post traumatic stress disorder Posttraumatic stress disorder documented in this encounter [facility] [place] [employer] Phone: Evaluation note* Diagnosis Generalized anxiety disorder- Primary Bipolar disorder, current episode mixed, mild ([facility]-CMS) Bipolar I disorder, most recent episode (or current) mixed, mild Obsessive-compulsive disorder, unspecified type documented in this encounter [facility] [place] [employer] Phone: Evaluation note* Diagnosis Post traumatic stress disorder- Primary Posttraumatic stress disorder Generalized anxiety disorder documented in this encounter [facility] [place] [employer] Phone: Evaluation note* Diagnosis Dysuria- Primary [facility] Diagnosis Generalized anxiety disorder- Primary Obsessive-compulsive disorder, unspecified type documented in this encounter [facility] [place] [employer] Phone: Evaluation note* Diagnosis Intractable chronic migraine without aura and without status migrainosus- Primary Chronic migraine without aura, with intractable migraine, so stated, without mention of status migrainosus documented in this encounter [facility] note* Diagnosis Generalized anxiety disorder Bipolar disorder in partial remission, most recent episode unspecified type (HCC-CMS) documented in this encounter [facility] Work Phone: Evaluation note* Diagnosis Obsessive-compulsive disorder, unspecified type- Primary Generalized anxiety disorder documented in this encounter [facility] Work Phone: Evaluation note* Diagnosis Bipolar disorder, current episode mixed, severe, without psychotic features (HCC-CMS)- Primary Bipolar I disorder, most recent episode (or current) mixed, severe, without mention of psychotic behavior Generalized anxiety disorder documented in this encounter [facility] Work Phone: Evaluation note* Diagnosis Bipolar disorder, current episode mixed, severe, without psychotic features (HCC-CMS)- Primary Bipolar I disorder, most recent episode (or current) mixed, severe, without mention of psychotic behavior Generalized anxiety disorder Bipolar disorder in partial remission, most recent episode unspecified type (HCC-CMS) documented in this encounter [facility] [employer] Phone: Evaluation note* Diagnosis Acute otitis externa of both ears, unspecified type- Primary [facility]* Diagnosis Recurrent UTI- Primary Urinary tract infection, site not specified Acute otitis externa of right ear, unspecified type documented in this encounter [facility] note* Diagnosis Generalized anxiety disorder- Primary documented in this encounter [facility] [employer] Phone: Evaluation note* Diagnosis Bipolar disorder, current episode mixed, severe, without psychotic features (HCC-CMS)- Primary Bipolar I disorder, most recent episode (or current) mixed, severe, without mention of psychotic behavior Bipolar disorder in partial remission, most recent episode unspecified type ([facility]-CMS) Generalized anxiety disorder documented in this encounter [facility] [employer] Phone: Evaluation note* Diagnosis Intractable chronic migraine without aura and without status migrainosus- Primary Chronic migraine without aura, with intractable migraine, so stated, without mention of status migrainosus [facility]* Diagnosis Mixed obsessional thoughts and acts- Primary Generalized anxiety disorder documented in this encounter [facility] [employer] Phone: Evaluation note* Diagnosis Mixed obsessional thoughts and acts- Primary documented in this encounter [facility] [employer] Phone: Evaluation note* Diagnosis Bipolar disorder, in partial remission, most recent episode depressed ([facility]-CMS)- Primary Bipolar I disorder, most recent episode (or current) depressed, in partial or unspecified remission documented in this encounter [facility] [place] [facility] Work Phone: Evaluation note* Diagnosis Generalized anxiety disorder- Primary documented in this encounter [facility] [place] [facility] Work Phone: Evaluation note* Diagnosis Bipolar disorder in partial remission, most recent episode unspecified type ([facility]-CMS)- Primary Generalized anxiety disorder Mixed obsessional thoughts and acts Bipolar disorder, in partial remission, most recent episode depressed ([facility]) Bipolar I disorder, most recent episode (or current) depressed, in partial or unspecified remission documented in this encounter [facility] [place] [facility] Work Phone: Evaluation note* Diagnosis Mixed obsessional thoughts and acts- Primary documented in this encounter [facility] [place] [facility] Work Phone: Evaluation note* Diagnosis Generalized anxiety disorder- Primary Mixed obsessional thoughts and acts documented in this encounter [facility] [place] [facility] Work Phone: Evaluation note* Diagnosis Injury of left hand, initial encounter- Primary Closed nondisplaced fracture of shaft of fifth metacarpal bone of left hand, initial encounter [facility] Diagnosis Closed nondisplaced fracture of shaft of fifth metacarpal bone of left hand, initial encounter [facility] Diagnosis Closed nondisplaced fracture of shaft of fifth metacarpal bone of left hand, initial encounter- Primary [facility]* Diagnosis Pain- Primary Generalized pain [facility]* Diagnosis Closed nondisplaced fracture of shaft of fifth metacarpal bone of left hand, initial encounter- Primary [facility]* Diagnosis Intractable chronic migraine without aura and without status migrainosus- Primary Chronic migraine without aura, with intractable migraine, so stated, without mention of status migrainosus documented in this encounter [facility] note* Diagnosis Bipolar disorder, in partial remission, most recent episode depressed ([facility]-CMS)- Primary Bipolar I disorder, most recent episode (or current) depressed, in partial or unspecified remission documented in this encounter [facility] [place] [employer] Work Phone: evaluation note* Diagnosis Closed nondisplaced fracture of shaft of fifth metacarpal bone of left hand, initial encounter- Primary documented in this encounter [facility] note* Diagnosis Mixed obsessional thoughts and acts- Primary Generalized anxiety disorder documented in this encounter [facility] Work Phone: evaluation note* Diagnosis Generalized anxiety disorder- Primary Mixed obsessional thoughts and acts documented in this encounter [facility] [place] [facility] Work Phone: evaluation note* Diagnosis Closed nondisplaced fracture of shaft of fifth metacarpal bone of left hand with routine healing, subsequent encounter- Primary documented in this encounter [facility] note* Diagnosis Closed nondisplaced fracture of shaft of fifth metacarpal bone of left hand with routine healing, subsequent encounter- Primary documented in this encounter [facility] note* Diagnosis Pain Generalized pain documented in this encounter [facility] note* Diagnosis Bipolar disorder, in partial remission, most recent episode depressed ([facility]-CMS)- Primary Bipolar I disorder, most recent episode (or current) depressed, in partial or unspecified remission documented in this encounter [facility] [place] [employer] Work Phone: evaluation note* Diagnosis Bipolar disorder, in partial remission, most recent episode depressed (HCC-CMS)- Primary Bipolar I disorder, most recent episode (or current) depressed, in partial or unspecified remission Generalized anxiety disorder documented in this encounter [facility] [place] [employer] Work Phone: evaluation note* Diagnosis Closed nondisplaced fracture of shaft of fifth metacarpal bone of left hand with routine healing, subsequent encounter- Primary documented in this encounter [facility] note* Diagnosis Generalized anxiety disorder- Primary Bipolar disorder, in partial remission, most recent episode depressed (HCC-CMS)- Primary Bipolar I disorder, most recent episode (or current) depressed, in partial or unspecified remission documented in this encounter [facility] [place] [employer] Work Phone: evaluation note* Diagnosis Bipolar disorder, in partial remission, most recent episode depressed (HCC-CMS)- Primary Bipolar I disorder, most recent episode (or current) depressed, in partial or unspecified remission Bipolar disorder in partial remission, most recent episode unspecified type ([facility]) Generalized anxiety disorder documented in this encounter [employer] Phone: evaluation note* Diagnosis Generalized anxiety disorder- Primary Bipolar disorder, in partial remission, most recent episode depressed (HCC-CMS)- Primary Bipolar I disorder, most recent episode (or current) depressed, in partial or unspecified remission documented in this encounter [facility] [place] [employer] Phone: evaluation note* Diagnosis Bipolar disorder, in partial remission, most recent episode depressed (HCC-CMS)- Primary Bipolar I disorder, most recent episode (or current) depressed, in partial or unspecified remission Bipolar disorder, in partial remission, most recent episode depressed (HCC-CMS)- Primary Bipolar I disorder, most recent episode (or current) depressed, in partial or unspecified remission documented in this encounter [facility] [place] [employer] Phone: evaluation note* Diagnosis Sprain of left ankle, unspecified ligament, initial encounter- Primary documented in this encounter [facility] note* Diagnosis Sprain of left ankle, unspecified ligament, initial encounter- Primary Pain in left foot Pain in limb [facility]* Diagnosis Generalized anxiety disorder- Primary documented in this encounter [facility] [place] [employer] Phone: Evaluation note* Diagnosis Chronic migraine without aura, intractable, without status migrainosus- Primary documented in this encounter [facility] note* Diagnosis Sprain of left ankle, unspecified ligament, subsequent encounter- Primary [facility]* Diagnosis Bipolar disorder, in partial remission, most recent episode depressed ([facility]-CMS)- Primary Bipolar I disorder, most recent episode (or current) depressed, in partial or unspecified remission Generalized anxiety disorder Bipolar disorder in partial remission, most recent episode unspecified type ([facility]-CMS) documented in this encounter [facility] [place] [employer] Phone: Evaluation note* Diagnosis Bipolar disorder, in partial remission, most recent episode depressed (HCC-CMS)- Primary Bipolar I disorder, most recent episode (or current) depressed, in partial or unspecified remission Generalized anxiety disorder documented in this encounter [facility], [place] [employer] Phone: Evaluation note* Diagnosis Mixed obsessional thoughts and acts- Primary Bipolar disorder, in partial remission, most recent episode depressed (HCC-CMS)- Primary Bipolar I disorder, most recent episode (or current) depressed, in partial or unspecified remission documented in this encounter [employer] Phone: Evaluation note* Diagnosis Bipolar disorder, in partial remission, most recent episode depressed (HCC-CMS)- Primary Bipolar I disorder, most recent episode (or current) depressed, in partial or unspecified remission Generalized anxiety disorder Bipolar disorder, in partial remission, most recent episode depressed (HCC-CMS)- Primary Bipolar I disorder, most recent episode (or current) depressed, in partial or unspecified remission documented in this encounter [employer] Phone: Evaluation note* Diagnosis Bipolar disorder, in partial remission, most recent episode depressed ([facility]CMS)- Primary Bipolar I disorder, most recent episode (or current) depressed, in partial or unspecified remission Bipolar disorder, in partial remission, most recent episode depressed (HCC-CMS)- Primary Bipolar I disorder, most recent episode (or current) depressed, in partial or unspecified remission documented in this encounter [employer] Phone: Evaluation note* Diagnosis Bipolar disorder in partial remission, most recent episode unspecified type ([facility])- Primary Generalized anxiety disorder Mixed obsessional thoughts and acts Long-term use of high-risk medication Screening for endocrine, metabolic and immunity disorder documented in this encounter [employer] Phone: Evaluation note* Diagnosis Bipolar disorder, current episode mixed, mild ([facility]-CMS) Bipolar I disorder, most recent episode (or current) mixed, mild Generalized anxiety disorder Obsessive-compulsive disorder, unspecified type Generalized anxiety disorder- Primary Bipolar affective disorder, current episode mixed, current episode severity unspecified ([facility]-CMS) Generalized anxiety disorder- Primary Bipolar disorder in partial remission, most recent episode unspecified type ([facility]-CMS) Generalized anxiety disorder Bipolar disorder in partial remission, most recent episode unspecified type ([facility]-CMS) Bipolar disorder, current episode mixed, severe, without psychotic features ([facility]-CMS)- Primary Bipolar I disorder, most recent episode (or current) mixed, severe, without mention of psychotic behavior Generalized anxiety disorder Bipolar disorder in partial remission, most recent episode unspecified type ([facility]-CMS) Bipolar disorder in partial remission, most recent episode unspecified type ([facility]-CMS)- Primary Generalized anxiety disorder Mixed obsessional thoughts [...] or unspecified remission documented in this encounter [facility], [place] [employer] Phone: Evaluation note* Diagnosis Migraine without aura and without status migrainosus, not intractable- Primary Migraine without aura, without mention of intractable migraine without mention of status migrainosus Left ear pain Otalgia, unspecified Eustachian tube disorder, left [facility] B[facility] disorder, current episode mixed, mild (HCC-CMS) Bipolar I disorder, most recent episode (or current) mixed, mild Generalized anxiety disorder Obsessive-compulsive disorder, unspecified type Generalized anxiety disorder- Primary Bipolar affective disorder, current episode mixed, current episode severity unspecified ([facility]-CMS) Generalized anxiety disorder- Primary Bipolar disorder in [...] or unspecified remission documented in this encounter [facility], [place] [employer] Phone: Evaluation note* Diagnosis Sprain of left ankle, unspecified ligament, initial encounter Pain in left foot Pain in limb [facility] [place] Diagnosis Closed nondisplaced fracture of shaft of fifth metacarpal bone of left hand with routine healing, subsequent encounter [facility] Acute maxillary sinusitis, recurrence not specified- Primary [facility] Diagnosis Bipolar disorder, current episode mixed, [...] partial remission, most recent episode depressed ([facility]-CMS)- Primary Bipolar I disorder, most recent episode (or current) depressed, in partial or unspecified remission Generalized anxiety disorder Bipolar disorder in partial remission, most recent episode unspecified type (HCC-CMS) Bipolar disorder in partial remission, most recent episode unspecified type ([facility]-CMS)- Primary Generalized anxiety disorder Mixed obsessional thoughts and acts Long-term use of high-risk medication Screening for endocrine, metabolic and immunity disorder Generalized anxiety disorder- Primary documented in this encounter [facility], [place] [employer] Phone: Evaluation note* Diagnosis Vaginal irritation- Primary Unspecified noninflammatory disorder of vagina [facility] Diagnosis Itching in the vaginal area- Primary Pruritus of genital organs [facility] Diagnosis BV (bacterial vaginosis)- Primary Vaginitis and vulvovaginitis, unspecified Candidal vaginitis Candidiasis of vulva and vagina [facility] Diagnosis Bipolar disorder, current episode mixed, mild (HCC-CMS) Bipolar I disorder, most recent episode (or current) mixed, mild Generalized anxiety disorder Obsessive-compulsive disorder, unspecified type Generalized anxiety disorder- Primary Bipolar affective disorder, current episode mixed, current episode severity unspecified ([facility]) Generalized anxiety disorder- Primary Bipolar disorder in partial remission, most recent episode unspecified type ([facility]) Generalized anxiety disorder Bipolar disorder in partial [...] or unspecified remission documented in this encounter [facility], [place] [employer] Phone: Evaluation note* Diagnosis Hand injury, left, initial encounter- Primary [facility] Diagnosis Chronic migraine without aura, intractable, without status migrainosus- Primary [facility] Diagnosis Bipolar disorder, current episode mixed, [...] Generalized anxiety disorder documented in this encounter [facility], [place] [employer] Phone: Evaluation note* Diagnosis Bipolar disorder, current [...] and acts- Primary documented in this encounter [facility], [place] [employer] Phone: Evaluation note* Diagnosis Vaginal discharge- Primary Leukorrhea, not specified as infective [facility] Diagnosis Bipolar disorder, current episode [...] or unspecified remission documented in this encounter [facility], [place] [employer] Phone: Evaluation note* Diagnosis Bipolar disorder, [...] or unspecified remission documented in this encounter [employer] Phone: Evaluation note* Diagnosis Chronic migraine without aura, intractable, without status migrainosus- Primary [facility] Diagnosis Bipolar disorder, current episode mixed, [...] Other obsessive-compulsive disorders documented in this encounter [facility], [place] [employer] Phone: Evaluation note* Diagnosis Bipolar disorder, [...] type (HCC-CMS)- Primary documented in this encounter [facility], [place] [employer] Phone: Evaluation note* Diagnosis Bipolar disorder, [...] unspecified type (HCC-CMS) documented in this encounter [facility], [place] [employer] Phone: Evaluation note* Diagnosis Bipolar disorder, current [...] thoughts and acts documented in this encounter [facility], [place] [employer] Phone: Evaluation note* Diagnosis Bipolar disorder, current [...] anxiety disorder- Primary documented in this encounter [facility] [employer] Phone: Evaluation note* Diagnosis Nausea Nausea alone [facility] Diagnosis Bipolar disorder, current episode [...] anxiety disorder- Primary documented in this encounter [employer] Phone: Evaluation note* Diagnosis Breast lesion- Primary Unspecified breast disorder Breast abscess Inflammatory disease of breast [facility] Diagnosis Breast lesion- Primary Unspecified breast disorder [facility] Diagnosis Nipple discharge- Primary Other sign and symptom in breast Family history of breast cancer Family history of malignant neoplasm of breast Family history of ovarian cancer Family history of malignant neoplasm of ovary [facility] Diagnosis Cellulitis of breast- Primary Inflammatory disease of breast [facility] Breast lesion Unspecified breast disorder [facility] [place] Diagnosis Bipolar disorder, current episode mixed, [...] with panic attacks documented in this encounter [facility], [place] [employer] Phone: Evaluation note* Diagnosis Bipolar disorder, current [...] Posttraumatic stress disorder documented in this encounter [facility], [place] [employer] Phone: Evaluation note* Diagnosis Bipolar disorder, [...] type (HCC-CMS)- Primary documented in this encounter [facility], [place] [employer] Phone: Evaluation note* Diagnosis Bipolar disorder, [...] type (HCC-CMS)- Primary documented in this encounter [facility], [place] [employer] Phone: Evaluation note* Diagnosis Bipolar disorder, [...] type (HCC-CMS)- Primary documented in this encounter [facility], [place] [employer] Phone: Evaluation note* Diagnosis Bipolar disorder, [...] type (HCC-CMS)- Primary documented in this encounter [facility], [place] [employer] Phone: Evaluation note* Diagnosis Bipolar disorder, [...] partial remission, most recent episode depressed ([facility]CMS) Bipolar I disorder, most recent episode (or current) depressed, in partial or unspecified remission Bipolar disorder, in partial remission, most recent episode depressed ([facility]-CMS)- Primary Bipolar I disorder, most recent episode (or current) depressed, in partial or unspecified remission Bipolar disorder in partial remission, most recent episode unspecified type ([facility]) Generalized anxiety disorder Bipolar disorder, in partial remission, most recent episode depressed ([facility]-CMS)- Primary Bipolar I disorder, most recent episode (or current) depressed, in partial or unspecified remission Generalized anxiety disorder Bipolar disorder in partial remission, most recent episode unspecified type (HCC-CMS) Bipolar disorder in partial remission, most recent episode unspecified type ([facility]-CMS)- Primary Generalized anxiety disorder Mixed obsessional thoughts [...] type (HCC-CMS)- Primary documented in this encounter [facility], [place] [employer] Phone: Evaluation note* Diagnosis Bipolar disorder, current [...] type (HCC-CMS)- Primary documented in this encounter [facility], [place] [employer] Phone: Evaluation note* Diagnosis Bipolar disorder, current [...] unspecified type (HCC-CMS) documented in this encounter [facility], [place] [employer] Phone: Evaluation note* Diagnosis Bipolar [...] unspecified type (HCC-CMS) documented in this encounter [facility], [place] [facility] [employer] Phone: Evaluation note* Diagnosis Bipolar [...] disorder, unspecified type documented in this encounter [facility], [place] [employer] Phone: Evaluation note* Diagnosis Bipolar disorder, [...] panic attacks- Primary documented in this encounter [facility], [place] [employer] Phone: Evaluation note* Diagnosis Antibiotic causing adverse effect- Primary Adverse effect of drug, initial encounter Angioedema, initial encounter Lip swelling Diseases of lips Pruritus Unspecified pruritic disorder Anxiety state Anxiety state, unspecified Obesity, Class I, BMI 30-34.9 Obesity, unspecified Mastitis Inflammatory disease of breast Angio-edema Angioneurotic edema not elsewhere classified Chronic migraine without aura, intractable, without status migrainosus- Primary [facility] [place]* Diagnosis Antibiotic causing adverse effect- Primary Adverse effect of drug, initial encounter Angioedema, initial encounter Lip swelling Diseases of lips Pruritus Unspecified pruritic disorder Anxiety state Anxiety state, unspecified Obesity, Class I, BMI 30-34.9 Obesity, unspecified Mastitis Inflammatory disease of breast Angio-edema Angioneurotic edema not elsewhere classified Dysuria- Primary Acute vaginitis Vaginitis and vulvovaginitis, unspecified [facility]* Diagnosis Bipolar disorder, current episode mixed, [...] current episode mixed, severe, without psychotic features ([facility]-CMS)- Primary Bipolar I disorder, most recent episode (or current) mixed, severe, without mention of psychotic behavior Generalized anxiety disorder Bipolar disorder in partial remission, most recent episode unspecified type (HCC-CMS) Bipolar disorder in partial remission, most recent episode unspecified type (HCC-CMS)- Primary Generalized anxiety disorder Mixed obsessional thoughts and acts Bipolar disorder, in partial remission, most recent episode depressed ([facility]) Bipolar I disorder, most recent episode (or current) depressed, in partial or unspecified remission Bipolar disorder, in partial remission, most recent episode depressed ([facility])- Primary Bipolar I disorder, most recent episode (or current) depressed, in partial or unspecified remission Bipolar disorder in partial remission, most recent episode unspecified type ([facility]) Generalized anxiety disorder Bipolar disorder, in partial remission, most recent episode depressed ([facility]-CMS)- Primary Bipolar I disorder, most recent episode (or current) depressed, in partial or unspecified remission Generalized anxiety disorder Bipolar disorder in partial remission, most recent episode unspecified type (HCC-CMS) Bipolar disorder in partial remission, most recent episode unspecified type ([facility]-CMS)- Primary Generalized anxiety disorder Mixed obsessional thoughts and acts Long-term use of high-risk medication Screening for endocrine, metabolic and immunity disorder Bipolar disorder in full remission, most recent episode unspecified type ([facility]-CMS)- Primary Generalized anxiety disorder Other obsessive-compulsive disorders [...] conditions ruled out documented in this encounter [facility], [place] [employer] Phone: Evaluation note* Diagnosis Bipolar disorder, [...] type (HCC-CMS)- Primary documented in this encounter [facility], [place] [employer] Phone: Evaluation note* Diagnosis Bipolar disorder, current [...] type (HCC-CMS)- Primary documented in this encounter [facility], [place] [employer] Phone: Evaluation note* Diagnosis Bipolar disorder, [...] type (HCC-CMS)- Primary documented in this encounter [facility], [place] [employer] Phone: Evaluation note* Diagnosis Bipolar disorder, [...] type (HCC-CMS)- Primary documented in this encounter [facility], [place] [employer] Phone: Evaluation note* Diagnosis Bipolar disorder, current episode mixed, mild (CMS & HHS-HCC) Bipolar I disorder, most recent episode (or current) mixed, mild Generalized anxiety disorder Obsessive-compulsive disorder, unspecified type Generalized anxiety disorder- Primary Bipolar affective disorder, current episode mixed, current episode severity unspecified (CMS & HHS-HCC) Generalized anxiety disorder- Primary Bipolar disorder in partial remission, most recent episode unspecified type (CMS & [facility]) Generalized anxiety disorder Bipolar disorder in partial remission, most recent episode unspecified type ([facility]) Bipolar disorder, current episode mixed, severe, without psychotic features ([facility])- Primary Bipolar I disorder, most recent episode (or current) mixed, severe, without mention of psychotic behavior Generalized anxiety disorder Bipolar disorder in partial remission, most recent episode unspecified type ([facility]) Bipolar disorder in partial remission, most recent episode unspecified type ([facility])- Primary Generalized anxiety disorder Mixed obsessional thoughts and acts Bipolar disorder, in partial remission, most recent episode depressed ([facility]) Bipolar I disorder, most recent episode (or current) depressed, in partial or unspecified remission Bipolar disorder, in partial remission, most recent episode depressed ([facility])- Primary Bipolar I disorder, most recent episode (or current) depressed, in partial or unspecified remission Bipolar disorder in partial remission, most recent episode unspecified type ([facility]) Generalized anxiety disorder Bipolar disorder, in partial remission, most recent episode depressed ([facility])- Primary Bipolar I disorder, most recent episode (or current) depressed, in partial or unspecified remission Generalized anxiety disorder Bipolar disorder in partial remission, most recent episode unspecified type ([facility]) Bipolar disorder in partial remission, most recent episode unspecified type ([facility])- Primary Generalized anxiety disorder Mixed obsessional thoughts and acts Long-term use of high-risk medication Screening for endocrine, metabolic and immunity disorder Bipolar disorder in full remission, most recent episode unspecified type ([facility])- Primary Generalized anxiety disorder Other obsessive-compulsive disorders Bipolar disorder in full remission, most recent episode unspecified type ([facility])- Primary Generalized anxiety disorder with panic attacks Bipolar disorder in full remission, most recent episode unspecified type ([facility])- Primary Panic attack Panic disorder without agoraphobia Generalized anxiety disorder with panic attacks Mixed obsessional thoughts and acts Bipolar disorder in full remission, most recent episode unspecified type ([facility])- Primary Generalized anxiety disorder with panic attacks Generalized anxiety disorder with panic attacks- Primary Bipolar disorder in full remission, most recent episode unspecified type ([facility]) Obsessive-compulsive disorder, unspecified type Generalized anxiety disorder with panic attacks- Primary Bipolar disorder in full remission, most recent episode unspecified type ([facility]) Therapeutic drug monitoring Encounter for therapeutic drug monitoring Screening for endocrine, metabolic and immunity disorder Long-term use of high-risk medication Obsessive-compulsive disorder, unspecified type Encounter for observation for other suspected diseases and conditions ruled out Bipolar disorder, rapid cycling ([facility])- Primary Bipolar disorder, unspecified Obsessive-compulsive disorder, unspecified type Generalized anxiety disorder with panic attacks Borderline personality disorder ([facility])- Primary Borderline personality disorder Bipolar disorder in full remission, most recent episode unspecified type (CMS & [facility])- Primary documented in this encounter [facility], [place] [employer] Phone: Evaluation note* Diagnosis Bipolar disorder, current episode mixed, mild (CMS & [facility]) Bipolar I disorder, most recent episode (or current) mixed, mild Generalized anxiety disorder Obsessive-compulsive disorder, unspecified type Generalized anxiety disorder- Primary Bipolar affective disorder, current episode mixed, current episode severity unspecified (CMS & [facility]) Generalized anxiety disorder- Primary Bipolar disorder in partial remission, most recent episode unspecified type (CMS & [facility]) Generalized anxiety disorder Bipolar disorder in partial remission, most recent episode unspecified type ([facility]) Bipolar disorder, current episode mixed, severe, without psychotic features (CMS & [facility])- Primary Bipolar I disorder, most recent episode (or current) mixed, severe, without mention of psychotic behavior Generalized anxiety disorder Bipolar disorder in partial remission, most recent episode unspecified type (CMS & [facility]) Bipolar disorder in partial remission, most recent episode unspecified type ([facility])- Primary Generalized anxiety disorder Mixed obsessional thoughts and acts Bipolar disorder, in partial remission, most recent episode depressed (CMS & [facility]) Bipolar I disorder, most recent episode (or current) depressed, in partial or unspecified remission Bipolar disorder, in partial remission, most recent episode depressed ([facility])- Primary Bipolar I disorder, most recent episode (or current) depressed, in partial or unspecified remission Bipolar disorder in partial remission, most recent episode unspecified type ([facility] & [facility]) Generalized anxiety disorder Bipolar disorder, in partial remission, most recent episode depressed ([facility])- Primary Bipolar I disorder, most recent episode [...] most recent episode unspecified type ([facility])- Primary Generalized anxiety disorder Other obsessive-compulsive [...] most recent episode unspecified type ([facility]) Obsessive-compulsive disorder, unspecified type Generalized anxiety [...] with panic attacks Bipolar disorder, rapid cycling ([facility])- Primary Bipolar disorder, unspecified Obsessive-compulsive disorder, unspecified type Generalized anxiety disorder with panic attacks documented in this encounter [employer] Phone: Evaluation note* Diagnosis Adverse effect of drug, initial encounter Angioedema, initial encounter Lip swelling Diseases of lips Pruritus Unspecified pruritic disorder Obesity, Class I, BMI 30-34.9 Obesity, unspecified Mastitis Inflammatory disease of breast Angio-edema Angioneurotic edema not elsewhere classified Chronic migraine without aura, intractable, without status migrainosus- [facility] B[facility] disorder, current episode mixed, mild ([facility]) Bipolar I disorder, most recent episode (or current) mixed, mild Generalized anxiety disorder Obsessive-compulsive disorder, unspecified type Generalized anxiety disorder- Primary Bipolar affective disorder, current episode mixed, current episode severity unspecified ([facility] & [facility]) Generalized anxiety disorder- Primary Bipolar disorder in partial remission, most recent episode unspecified type ([facility]) Generalized anxiety disorder Bipolar disorder in partial remission, most recent episode unspecified type ([facility]) Bipolar disorder, current episode mixed, severe, without psychotic features ([facility] & [facility])- Primary Bipolar I disorder, most recent episode (or current) mixed, severe, without mention of psychotic behavior Generalized anxiety disorder Bipolar disorder in partial remission, most recent episode unspecified type ([facility]) Bipolar disorder in partial remission, most recent episode unspecified type ([facility])- Primary Generalized anxiety disorder Mixed obsessional thoughts and acts Bipolar disorder, in partial remission, most recent episode depressed ([facility]) Bipolar I disorder, most recent episode (or current) depressed, in partial or unspecified remission Bipolar disorder, in partial remission, most recent episode depressed ([facility])- Primary Bipolar I disorder, most recent episode (or current) depressed, in partial or unspecified remission Bipolar disorder in partial remission, most recent episode unspecified type ([facility]) Generalized anxiety disorder Bipolar disorder, in partial remission, most recent episode depressed ([facility])- Primary Bipolar I disorder, most recent episode (or current) depressed, in partial or unspecified remission Generalized anxiety disorder Bipolar disorder in partial remission, most recent episode unspecified type ([facility]) Bipolar disorder in partial remission, most recent episode unspecified type ([facility])- Primary Generalized anxiety disorder Mixed obsessional thoughts and acts Long-term use of high-risk medication Screening for endocrine, metabolic and immunity disorder Bipolar disorder in full remission, most recent episode unspecified type ([facility])- Primary Generalized anxiety disorder Other obsessive-compulsive disorders Bipolar disorder in full remission, most recent episode unspecified type ([facility])- Primary Generalized anxiety disorder with panic attacks Bipolar disorder in full remission, most recent episode unspecified type ([facility])- Primary Panic attack Panic disorder without agoraphobia Generalized anxiety disorder with panic attacks Mixed obsessional thoughts and acts Bipolar disorder in full remission, most recent episode unspecified type ([facility])- Primary Generalized anxiety disorder with panic attacks [...] remission, most recent episode hypomanic ([facility]) Bipolar disorder, unspecified Screening for endocrine, metabolic and immunity disorder Long-term use of high-risk medication Bipolar disorder, in partial remission, most recent episode hypomanic ([facility])- Primary Bipolar disorder, unspecified documented in this encounter [facility] [place] [employer] Phone: Evaluation note* Diagnosis Bipolar disorder, current [...] remission, most recent episode depressed ([facility]) Bipolar I disorder, most recent episode (or current) depressed, in partial or unspecified remission Bipolar disorder, in partial remission, most recent episode depressed ([facility])- Primary Bipolar I disorder, most recent episode (or current) depressed, in partial or unspecified remission Bipolar disorder in partial remission, most recent episode unspecified type ([facility]) Generalized anxiety disorder Bipolar disorder, in partial remission, most recent episode depressed ([facility])- Primary Bipolar I disorder, most recent episode (or current) depressed, in partial or unspecified remission Generalized anxiety disorder Bipolar disorder in partial remission, most recent episode unspecified type ([facility]) Bipolar disorder in partial remission, most recent episode unspecified type ([facility])- Primary Generalized anxiety disorder Mixed obsessional thoughts and acts Long-term use of high-risk medication Screening for endocrine, metabolic and immunity disorder Bipolar disorder in full remission, most recent episode unspecified type ([facility])- Primary Generalized anxiety disorder Other obsessive-compulsive disorders Bipolar disorder in full remission, most recent episode unspecified type ([facility])- Primary Generalized anxiety disorder with panic attacks Bipolar disorder in full remission, most recent episode unspecified type ([facility])- Primary Panic attack Panic disorder without agoraphobia Generalized anxiety disorder with panic attacks Mixed obsessional thoughts and acts Bipolar disorder in full remission, most recent episode unspecified type ([facility])- Primary Generalized anxiety disorder with panic attacks Generalized anxiety disorder with panic attacks- Primary Bipolar disorder in full remission, most recent episode unspecified type ([facility]) Obsessive-compulsive disorder, unspecified type Generalized anxiety disorder with panic attacks- Primary Bipolar disorder in full remission, most recent episode unspecified type ([facility]) Therapeutic drug monitoring Encounter for therapeutic drug monitoring Screening for endocrine, metabolic and immunity disorder Long-term use of high-risk medication Obsessive-compulsive disorder, unspecified type Encounter for observation for other suspected diseases and conditions ruled out Bipolar disorder, rapid cycling ([facility])- Primary Bipolar disorder, unspecified Obsessive-compulsive disorder, unspecified type Generalized anxiety disorder with panic attacks Bipolar disorder, rapid cycling ([facility])- Primary Bipolar disorder, unspecified Obsessive-compulsive disorder, unspecified type Generalized anxiety disorder with panic attacks Obsessive-compulsive disorder, unspecified type- Primary Generalized anxiety disorder with panic attacks Bipolar disorder, in partial remission, most recent episode hypomanic ([facility]) Bipolar disorder, unspecified Screening for endocrine, metabolic and immunity disorder Long-term use of high-risk medication documented in this encounter [facility], [place] [employer] Phone: Evaluation note* Diagnosis Bipolar disorder, current episode mixed, mild ([facility]) Bipolar I disorder, most recent episode (or current) mixed, mild Generalized anxiety disorder Obsessive-compulsive disorder, unspecified type Generalized anxiety disorder- Primary Bipolar affective disorder, current episode mixed, current episode severity unspecified ([facility]) Generalized anxiety disorder- Primary Bipolar disorder in partial remission, most recent episode unspecified type ([facility]) Generalized anxiety disorder Bipolar disorder in partial remission, most recent episode unspecified type ([facility]) Bipolar disorder, current episode mixed, severe, without psychotic features ([facility])- Primary Bipolar I disorder, most recent episode (or current) mixed, severe, without mention of psychotic behavior Generalized anxiety disorder Bipolar disorder in partial remission, most recent episode unspecified type ([facility]) Bipolar disorder in partial remission, most recent episode unspecified type ([facility])- Primary Generalized anxiety disorder Mixed obsessional thoughts and acts Bipolar disorder, in partial remission, most recent episode depressed ([facility]) Bipolar I disorder, most recent episode (or current) depressed, in partial or unspecified remission Bipolar disorder, in partial remission, most recent episode depressed ([facility])- Primary Bipolar I disorder, most recent episode (or current) depressed, in partial or unspecified remission Bipolar disorder in partial remission, most recent episode unspecified type ([facility]) Generalized anxiety disorder Bipolar disorder, in partial remission, most recent episode depressed ([facility])- Primary Bipolar I disorder, most recent episode (or current) depressed, in partial or unspecified remission Generalized anxiety disorder Bipolar disorder in partial remission, most recent episode unspecified type ([facility]) Bipolar disorder in partial remission, most recent episode unspecified type ([facility])- Primary Generalized anxiety disorder Mixed obsessional thoughts [...] Bipolar disorder, unspecified documented in this encounter [facility] [place] [employer] Phone: Evaluation note* Diagnosis Bipolar disorder, current [...] partial remission, most recent episode unspecified type ([facility]) Bipolar disorder, current episode mixed, severe, without psychotic features ([facility])- Primary Bipolar I disorder, most recent episode (or current) mixed, severe, without mention of psychotic behavior Generalized anxiety disorder Bipolar disorder in partial remission, most recent episode unspecified type ([facility]) Bipolar disorder in partial remission, most recent episode unspecified type ([facility])- Primary Generalized anxiety disorder Mixed obsessional thoughts and acts Bipolar disorder, in partial remission, most recent episode depressed ([facility]) Bipolar I disorder, most recent episode (or current) depressed, in partial or unspecified remission Bipolar disorder, in partial remission, most recent episode depressed ([facility])- Primary Bipolar I disorder, most recent episode (or current) depressed, in partial or unspecified remission Bipolar disorder in partial remission, most recent episode unspecified type ([facility]) Generalized anxiety disorder Bipolar disorder, in partial remission, most recent episode depressed ([facility])- Primary Bipolar I disorder, most recent episode (or current) depressed, in partial or unspecified remission Generalized anxiety disorder Bipolar disorder in partial remission, most recent episode unspecified type ([facility]) Bipolar disorder in partial remission, most recent episode unspecified type ([facility])- Primary Generalized anxiety disorder Mixed obsessional thoughts and acts Long-term use of high-risk medication Screening for endocrine, metabolic and immunity disorder Bipolar disorder in full remission, most recent episode unspecified type ([facility])- Primary Generalized anxiety disorder Other obsessive-compulsive disorders Bipolar disorder in full remission, most recent episode unspecified type ([facility])- Primary Generalized anxiety disorder with panic attacks Bipolar disorder in full remission, most recent episode unspecified type ([facility])- Primary Panic attack Panic disorder without agoraphobia Generalized anxiety disorder with panic attacks Mixed obsessional thoughts and acts Bipolar disorder in full remission, most recent episode unspecified type ([facility])- Primary Generalized anxiety disorder with panic attacks Generalized anxiety disorder with panic attacks- Primary Bipolar disorder in full remission, most recent episode unspecified type ([facility]) Obsessive-compulsive disorder, unspecified type Generalized anxiety disorder [...] attacks Bipolar disorder, rapid cycling ([facility])- Primary Bipolar disorder, unspecified Obsessive-compulsive disorder, [...] remission, most recent episode hypomanic ([facility])- Primary Bipolar disorder, unspecified documented in this encounter [facility] [place] [employer] Phone: Evaluation note* Diagnosis Bipolar disorder, current episode mixed, mild ([facility]) Bipolar I disorder, most recent episode (or current) mixed, mild Generalized anxiety disorder Obsessive-compulsive disorder, unspecified type Generalized anxiety disorder- Primary Bipolar affective disorder, current episode mixed, current episode severity unspecified ([facility]) Generalized anxiety disorder- Primary Bipolar disorder in partial remission, most recent episode unspecified type ([facility]) Generalized anxiety disorder Bipolar disorder in partial remission, most recent episode unspecified type ([facility]) Bipolar disorder, current episode mixed, severe, without psychotic features ([facility])- Primary Bipolar I disorder, most recent episode [...] remission, most recent episode depressed ([facility]) Bipolar I disorder, most recent episode (or current) depressed, in partial or unspecified remission Bipolar disorder, in partial remission, most recent episode depressed ([facility])- Primary Bipolar I disorder, most recent episode [...] most recent episode unspecified type ([facility])- Primary Panic attack Panic disorder without [...] most recent episode unspecified type ([facility]) Therapeutic drug monitoring Encounter for therapeutic drug monitoring Screening for endocrine, metabolic and immunity disorder Long-term use of high-risk medication Obsessive-compulsive disorder, unspecified type Encounter for observation for other suspected diseases and conditions ruled out Bipolar disorder, rapid cycling ([facility])- Primary Bipolar disorder, unspecified Obsessive-compulsive disorder, unspecified type Generalized anxiety disorder with panic attacks Bipolar disorder, rapid cycling ([facility])- Primary Bipolar disorder, unspecified Obsessive-compulsive disorder, unspecified type Generalized anxiety disorder with panic attacks Obsessive-compulsive disorder, unspecified type- Primary Generalized anxiety disorder with panic attacks Bipolar disorder, in partial remission, most recent episode hypomanic ([facility]) Bipolar disorder, unspecified Screening for endocrine, metabolic and immunity disorder Long-term use of high-risk medication Obsessive-compulsive disorder, unspecified type- Primary documented in this encounter [facility] [place] [employer] Phone: Evaluation note* Diagnosis Bipolar disorder, current episode mixed, mild ([facility]) Bipolar I disorder, most recent episode (or current) mixed, mild Generalized anxiety disorder Obsessive-compulsive disorder, unspecified type Generalized anxiety disorder- Primary Bipolar affective disorder, current episode mixed, current episode severity unspecified ([facility]) Generalized anxiety disorder- Primary Bipolar disorder in partial remission, most recent episode unspecified type ([facility]) Generalized anxiety disorder Bipolar disorder in partial remission, most recent episode unspecified type ([facility]) Bipolar disorder, current episode mixed, severe, without psychotic features ([facility])- Primary Bipolar I disorder, most recent episode (or current) mixed, severe, without mention of psychotic behavior Generalized anxiety disorder Bipolar disorder in partial remission, most recent episode unspecified type ([facility]) Bipolar disorder in partial remission, most recent episode unspecified type ([facility])- Primary Generalized anxiety disorder Mixed obsessional thoughts and acts Bipolar disorder, in partial remission, most recent episode depressed ([facility]) Bipolar I disorder, most recent episode (or current) depressed, in partial or unspecified remission Bipolar disorder, in partial remission, most recent episode depressed ([facility])- Primary Bipolar I disorder, most recent episode (or current) depressed, in partial or unspecified remission Bipolar disorder in partial remission, most recent episode unspecified type ([facility]) Generalized anxiety disorder Bipolar disorder, in partial remission, most recent episode depressed ([facility])- Primary Bipolar I disorder, most recent episode (or current) depressed, in partial or unspecified remission Generalized anxiety disorder Bipolar disorder in partial remission, most recent episode unspecified type ([facility]) Bipolar disorder in partial remission, most recent episode unspecified type ([facility])- Primary Generalized anxiety disorder Mixed obsessional thoughts and acts Long-term use of high-risk medication Screening for endocrine, metabolic and immunity disorder Bipolar disorder in full remission, most recent episode unspecified type ([facility])- Primary Generalized anxiety disorder Other obsessive-compulsive disorders Bipolar disorder in full remission, most recent episode unspecified type ([facility])- Primary Generalized anxiety disorder with panic attacks [...] out Bipolar disorder, rapid cycling ([facility])- Primary Bipolar disorder, unspecified Obsessive-compulsive disorder, unspecified type Generalized anxiety disorder with panic attacks Bipolar disorder, rapid cycling ([facility])- Primary Bipolar disorder, unspecified Obsessive-compulsive disorder, unspecified type Generalized anxiety disorder with panic attacks Obsessive-compulsive disorder, unspecified type- Primary Generalized anxiety disorder with panic attacks Bipolar disorder, in partial remission, most recent episode hypomanic ([facility]) Bipolar disorder, unspecified Screening for endocrine, metabolic and immunity disorder Long-term use of high-risk medication Post traumatic stress disorder- Primary Posttraumatic stress disorder Bipolar disorder, in partial remission, most recent episode hypomanic ([facility])- Primary Bipolar disorder, unspecified documented in this encounter [facility] [place] [employer] Phone: Evaluation note* Diagnosis Bipolar disorder, current [...] partial remission, most recent episode unspecified type ([facility] [facility] Bipolar disorder in partial remission, most recent episode unspecified type ([facility])- Primary Generalized anxiety disorder Mixed obsessional thoughts and acts Bipolar disorder, in partial remission, most recent episode depressed ([facility]) Bipolar I disorder, most recent episode (or current) depressed, in partial or unspecified remission Bipolar disorder, in partial remission, most recent episode depressed ([facility])- Primary Bipolar I disorder, most recent episode (or current) depressed, in partial or unspecified remission Bipolar disorder in partial remission, most recent episode unspecified type ([facility]) Generalized anxiety disorder Bipolar disorder, in partial remission, most recent episode depressed ([facility])- Primary Bipolar I disorder, most recent episode (or current) depressed, in partial or unspecified remission Generalized anxiety disorder Bipolar disorder in partial remission, most recent episode unspecified type ([facility]) Bipolar disorder in partial remission, most recent episode unspecified type ([facility])- Primary Generalized anxiety disorder Mixed obsessional thoughts and acts Long-term use of high-risk medication Screening for endocrine, metabolic and immunity disorder Bipolar disorder in full remission, most recent episode unspecified type ([facility])- Primary Generalized anxiety disorder Other obsessive-compulsive disorders Bipolar disorder in full remission, most recent episode unspecified type ([facility])- Primary Generalized anxiety disorder with panic attacks Bipolar disorder in full remission, most recent episode unspecified type ([facility])- Primary Panic attack Panic disorder without agoraphobia Generalized anxiety disorder with panic attacks Mixed obsessional thoughts and acts Bipolar disorder in full remission, most recent episode unspecified type ([facility])- Primary Generalized anxiety disorder with panic attacks Generalized anxiety disorder with panic attacks- Primary Bipolar disorder in full remission, most recent episode unspecified type ([facility]) Obsessive-compulsive disorder, unspecified type Generalized anxiety disorder with panic attacks- Primary Bipolar disorder in full remission, most recent episode unspecified type ([facility]) Therapeutic drug monitoring Encounter for therapeutic drug [...] WITHOUT codable children documented in this encounter [facility] [place] [employer] Work Phone: Evaluation note* Diagnosis Bipolar disorder, [...] in partial remission, most recent episode depressed ([facility])- Primary Bipolar I disorder, most recent episode (or current) depressed, in partial or unspecified remission Generalized anxiety disorder Bipolar disorder in partial remission, most recent episode unspecified type ([facility]) Bipolar disorder in partial remission, most recent episode unspecified type ([facility])- Primary Generalized anxiety disorder Mixed obsessional thoughts and acts Long-term use of high-risk medication Screening for endocrine, metabolic and immunity disorder Bipolar disorder in full remission, most recent episode unspecified type ([facility])- Primary Generalized anxiety disorder Other obsessive-compulsive disorders Bipolar disorder in full remission, most recent episode unspecified type ([facility])- Primary Generalized anxiety disorder with panic attacks Bipolar disorder in full remission, most recent episode unspecified type ([facility])- Primary Panic attack Panic disorder without agoraphobia Generalized anxiety disorder with panic attacks Mixed obsessional thoughts and acts Bipolar disorder in full remission, most recent episode unspecified type ([facility])- Primary Generalized anxiety disorder with panic attacks Generalized anxiety disorder with panic attacks- Primary Bipolar disorder in full remission, most recent episode unspecified type ([facility]) Obsessive-compulsive disorder, unspecified type Generalized anxiety disorder with panic attacks- Primary Bipolar disorder in full remission, most recent episode unspecified type ([facility]) Therapeutic drug monitoring Encounter for therapeutic drug monitoring Screening for endocrine, metabolic and immunity disorder Long-term use of high-risk medication Obsessive-compulsive disorder, unspecified type Encounter for observation for other suspected diseases and conditions ruled out Bipolar disorder, rapid cycling ([facility])- Primary Bipolar disorder, unspecified Obsessive-compulsive disorder, unspecified type Generalized anxiety disorder with panic attacks Bipolar disorder, rapid cycling ([facility])- Primary Bipolar disorder, unspecified Obsessive-compulsive disorder, unspecified type Generalized anxiety disorder with panic attacks Obsessive-compulsive disorder, unspecified type- Primary Generalized anxiety disorder with panic attacks Bipolar disorder, in partial remission, most recent episode hypomanic ([facility]) Bipolar disorder, unspecified Screening for endocrine, metabolic and immunity disorder Long-term use of high-risk medication Bipolar disorder, in partial remission, most recent episode hypomanic ([facility])- Primary Bipolar disorder, unspecified Obsessive-compulsive disorder, unspecified type Generalized anxiety disorder with panic attacks Alcohol use Reserved for inherently not codable concepts WITHOUT codable children Bipolar disorder, in partial remission, most recent episode hypomanic ([facility])- Primary Bipolar disorder, unspecified documented in this encounter [facility] [place] [employer] Work Phone: Evaluation note* Diagnosis Bipolar disorder, [...] Bipolar disorder, unspecified documented in this encounter [facility] [place] [employer] Work Phone: Evaluation note* Diagnosis Bipolar disorder, [...] Bipolar disorder, unspecified documented in this encounter [facility] [place] [employer] Work Phone: Evaluation note* Diagnosis Bipolar disorder, [...] panic attacks- Primary documented in this encounter [facility] [place] [employer] Work Phone: Evaluation note* Diagnosis Bipolar disorder, [...] unspecified type- Primary documented in this encounter [facility] [place] [employer] Work Phone: Evaluation note* Diagnosis Bipolar disorder, [...] not codable concepts WITHOUT codable children Bipolar affective disorder in remission- Primary Obsessive-compulsive disorder, unspecified type Generalized anxiety disorder with panic attacks Insomnia, unspecified type documented in this encounter [facility] Work Phone: Hospital Discharge instructions Additional Instructions If you have drooling, difficulty breathing return [facility] the [facility]: Hospital Discharge instructions Additional Instructions Follow-up with a local primary care physician for further evaluation. The ultrasound today was normal. No blood clots. Your labs were unremarkable. Motrin and Tylenol for pain. Return if getting a lot worse but at this time there is no specific diagnosis and this can be followed up and further evaluated as an outpatient.[facility] Work Phone: Reason for referral (narrative)* Diagnostic Procedure Only (Routine) - Authorized Specialty Diagnoses / Procedures Referred By Eduardo garcia Referred To Contact [facility] Diagnoses Encounter for long-term (current) use of medications Procedures OBSTETRIC ULTRASOUND WHI US PREG UTERUS AFTER 1ST TRIMEST GESTATION Shalonda Krause APRN.CNM [address] [place] [address] [facility] [address] [place] [address] Referral ID Status Reason Start Date Expiration Date Visits Requested Visits Authorized [id number] Authorized Auto-Generat ed Referral 05/06/2022 05/06/2023 1 1 [facility] for referral (narrative)* Diagnostic Procedure Only (Routine) - Closed Specialty Diagnoses / Procedures Referred By Eduardo t Referred To Contact XR IMAGING Diagnoses Closed nondisplaced fracture of shaft of fifth metacarpal bone of left hand, initial encounter Procedures XR HAND GENERAL 3V PA/LAT/OBL LEFT RADEX HAND MINIMUM 3 VIEWS Gabriela Andrade PA-C [address] [place] [address] [place] [address] Referral ID Status Reason Start Date Expiration Date V isits Requested Visits Authorized [id number] Closed Auto-Generate d Referral 01/01/2024 01/30/2025 1 1 [facility] for referral (narrative)* Diagnostic Procedure Only (Routine) - Authorized Specialty Diagnoses / Procedures Referred By Contac t Referred To Contact XR IMAGING Diagnoses Pain Procedures XR HAND GENERAL 3V PA/LAT/OBL LEFT RADEX HAND MINIMUM 3 VIEWS Gabriela Andrade PA-C [address] [place] [address] [place] [address] Referral ID Status Reason Start Date Expiration Date Visits Requested Visits Authorized [id number] Authorized Auto-Generat ed Referral 01/01/2024 01/30/2025 1 1 [facility] for referral (narrative)* Diagnostic Procedure Only (Routine) - Closed Specialty Diagnoses / Procedures Referred By Contac t Referred To Contact XR IMAGING Diagnoses Closed nondisplaced fracture of shaft of fifth metacarpal bone of left hand, initial encounter Procedures XR HAND GENERAL 3V PA/LAT/OBL LEFT RADEX HAND MINIMUM 3 VIEWS Gabriela Andrade PA-C [address] [place] [address] [place] [address] Referral ID Status Reason Start Date Expiration Date V isits Requested Visits Authorized [id number] Closed Auto-Generate d Referral 01/01/2024 01/30/2025 1 1 [facility] for referral (narrative)* Diagnostic Procedure Only (Routine) - Authorized Specialty Diagnoses / Procedures Referred By Contac t Referred To Contact XR IMAGING Diagnoses Closed nondisplaced fracture of shaft of fifth metacarpal bone of left hand with routine healing, subsequent encounter Procedures XR HAND GENERAL 3V PA/LAT/OBL LEFT RADEX HAND MINIMUM 3 VIEWS Gabriela Andrade PA-C [address] [place] [address] [place] [address] Referral ID Status Reason Start Date Expiration Date Visits Requested Visits Authorized [id number] Authorized Auto-Generat ed Referral 01/28/2024 02/26/2025 1 1 [facility] for referral (narrative)* Diagnostic Procedure Only (Routine) - Closed Specialty Diagnoses / Procedures Referred By Contac t Referred To Contact XR IMAGING Diagnoses Pain Procedures XR HAND GENERAL 3V PA/LAT/OBL LEFT RADEX HAND MINIMUM 3 VIEWS Gabriela Andrade PA-C [address] [place] [address] [place] [address] Referral ID Status Reason Start Date Expiration Date V isits Requested Visits Authorized [id number] Closed Auto-Generate d Referral 01/01/2024 01/30/2025 1 1 [facility] for referral (narrative)* Diagnostic Procedure Only (Routine) - Authorized Specialty Diagnoses / Procedures Referred By Contac t Referred To Contact XR IMAGING Diagnoses Pain in left foot Procedures XR FOOT GENERAL 3V AP/LAT/OBL LEFT RADEX FOOT COMPLETE MINIMUM 3 VIEWS Serene Higginbotham MD [address] [place] [address] [place] [address] Referral ID Status Reason Start Date Expiration Date Visits Requested Visits Authorized [id number] Authorized Auto-Generat ed Referral 04/03/2024 05/01/2025 1 1 * Diagnostic Procedure Only (Routine) - Authorized Specialty Diagnoses / Procedures Referred By Contac t Referred To Contact XR IMAGING Diagnoses Sprain of left ankle, unspecified ligament, initial encounter Procedures XR ANKLE GENERAL 3V AP/LAT/OBL LEFT RADEX ANKLE COMPLETE MINIMUM 3 VIEWS Serene Higginbotham MD [address] [place] [address] [place] [address] Referral ID Status Reason Start Date Expiration Date Visits Requested Visits Authorized [id number] Authorized Auto-Generat ed Referral 04/03/2024 05/01/2025 1 1 [facility] for referral (narrative)* Diagnostic Procedure Only (Routine) - Closed Specialty Diagnoses / Procedures Referred By Contac t Referred To Contact XR IMAGING Diagnoses Pain in left foot Procedures XR FOOT GENERAL 3V AP/LAT/OBL LEFT RADEX FOOT COMPLETE MINIMUM 3 VIEWS Serene Higginbotham MD [address] [place] [address] [place] [address] Referral ID Status Reason Start Date Expiration Date V isits Requested Visits Authorized [id number] Closed Auto-Generate d Referral 04/03/2024 05/01/2025 1 1 * Diagnostic Procedure Only (Routine) - Closed Specialty Diagnoses / Procedures Referred By Contac t Referred To Contact XR IMAGING Diagnoses Sprain of left ankle, unspecified ligament, initial encounter Procedures XR ANKLE GENERAL 3V AP/LAT/OBL LEFT RADEX ANKLE COMPLETE MINIMUM 3 VIEWS Serene Higginbotham MD [address] [place] [address] [place] [address] Referral ID Status Reason Start Date Expiration Date V isits Requested Visits Authorized [id number] Closed Auto-Generate d Referral 04/03/2024 05/01/2025 1 1 [facility] for referral (narrative)* Diagnostic Procedure Only (Routine) - Closed Specialty Diagnoses / Procedures Referred By Contac t Referred To Contact XR IMAGING Diagnoses Closed nondisplaced fracture of shaft of fifth metacarpal bone of left hand with routine healing, subsequent encounter Procedures XR HAND GENERAL 3V PA/LAT/OBL LEFT RADEX HAND MINIMUM 3 VIEWS Gabriela Andrade PA-C [address] [place] [address] [place] [address] Referral ID Status Reason Start Date Expiration Date V isits Requested Visits Authorized [id number] Closed Auto-Generate d Referral 01/28/2024 02/26/2025 1 1 [facility] for referral (narrative)* Diagnostic Procedure Only (Urgent) - New Request Specialty Diagnoses / Procedures Referred By Eduardo garcia Referred To Contact XR IMAGING Diagnoses Hand injury, left, initial encounter Procedures XR HAND GENERAL 3V PA/LAT/OBL LEFT RADEX HAND MINIMUM 3 VIEWS Alize Alonso, STONE POLISHER.PATIENT SERVICES REPRESENTATIVE [address] [address] [place] [address] Referral ID Status Reason Start Date Expiration Date Visits Requested Visits Authorized [id number] New Request Auto-Generat ed Referral 10/20/2025 1 1 [facility] for referral (narrative)No reason for referral information [facility] Work Phone: Reason for referral (narrative)* General Medicine (Routine) - New Request Specialty Diagnoses / Procedures Referred By Eduardo garcia Referred To Contact Primary Care Diagnoses Bipolar disorder, in partial remission, most recent episode hypomanic ([facility]) Angela Dinh LISW [address] [place] [address] Phone: tel: fax: [facility] [address] [place] [address] Phone: tel: fax: Referral ID Status Reason Start Date Expiration Date Visits Requested Visits Authorized [id number] New Request Primary Care 07/16/2025 07/12/2030 1 1 Question Answer Primary Care Subcategory Primary Care General [facility] [place] [employer] Work Phone: Reason for visit Narrative* Diagnostic Procedure Only (Routine) - Closed Specialty Diagnoses / Procedures Referred By Contac t Referred To Contact [facility] Diagnoses 31 weeks gestation of Bipolar affective disorder, current episode mixed, current episode severity unspecified (HCC) Diet controlled gestational diabetes mellitus (GDM) in third trimester Procedures OBSTETRIC ULTRASOUND WHI US PREG UTERUS AFTER 1ST TRIMEST GESTATION Chitra Nava MD [address] [place] [address] [facility] [address] [place] [address] Referral ID Status Reason Start Date Expiration Date V isits Requested Visits Authorized [id number] Closed Auto-Generate d Referral 06/01/2022 06/01/2023 2 1 [facility] for visit Narrative* Diagnostic Procedure Only (Routine) - Closed Specialty Diagnoses / Procedures Referred By Eduardo t Referred To Contact XR IMAGING Diagnoses Sprain of left ankle, unspecified ligament, initial encounter Procedures XR ANKLE GENERAL 3V AP/LAT/OBL LEFT RADEX ANKLE COMPLETE MINIMUM 3 VIEWS Serene Higginbotham MD [address] [place] [address] [place] [address] Referral ID Status Reason Start Date Expiration Date V isits Requested Visits Authorized [id number] Closed Auto-Generate d Referral 04/03/2024 05/01/2025 1 1 [facility] for visit Narrative* Diagnostic Procedure Only (Routine) - Closed Specialty Diagnoses / Procedures Referred By Eduardo t Referred To Contact XR IMAGING Diagnoses Closed nondisplaced fracture of shaft of fifth metacarpal bone of left hand with routine healing, subsequent encounter Procedures XR HAND GENERAL 3V PA/LAT/OBL LEFT RADEX HAND MINIMUM 3 VIEWS Gabriela Andrade PA-C [address] [place] [address] [place] [address] Referral ID Status Reason Start Date Expiration Date V isits Requested Visits Authorized [id number] Closed Auto-Generate d Referral 01/28/2024 02/26/2025 1 1 [facility] Summary Purpose Family History No Family [...] Documents on File Type Date Recorded Patient Financial Management Consultant Expl anation Advance Directive(s) 09/24/2021 8:36 PM [...] Documents on File Type Date Recorded Patient Financial Management Consultant Expl anation Advance Directive(s) 09/24/2021 8:36 PM [...] Documents on File Type Date Recorded Patient Financial Management Consultant Expl anation Advance Directive(s) 05/30/2022 11:20 AM [...] Documents on File Type Date Recorded Patient Financial Management Consultant Expl anation Advance Directive(s) 05/30/2022 11:20 AM [...] Will No December 06 12:56pm Power of Manager Sas No December 06, 2022 12:56pm Date Activated [...] Do you have a Healthcare Power of Manager Sas? No March 10, 2025 6:13am Date Activated [...] Date OB Reminders 03/06/2022 Problem Noted Date Pleating Supervisor 07/24/2022 Problem Noted Date Pleating Supervisor 07/24/2022 Problem Noted Date Pleating Supervisor 07/24/2022 Problem Noted Date Pleating Supervisor 07/24/2022 Problem Noted Date Pleating Supervisor 07/24/2022 Problem Noted Date Pleating Supervisor 07/24/2022 Problem Noted Date Bipolar Disorder 12/25/2021 PTSD 12/25/2021 Problem Noted Date Pleating Supervisor 07/24/2022 Problem Noted Date Bipolar Disorder 12/25/2021 PTSD 12/25/2021 Problem Noted Date Bipolar Disorder 12/25/2021 PTSD 12/25/2021 Problem Noted Date Pleating Supervisor 07/24/2022 Problem Noted Date Pleating Supervisor 07/24/2022 Problem Noted Date Bipolar Disorder 12/25/2021 [...] DISORDER 05/15/2023 Problem Noted Date Diagnosed Date Pleating Supervisor 07/24/2022 Problem Noted Date Diagnosed Date ANXIETY 05/15/2023 PSYCHIATRIC MEDICATION MANAGEMENT 05/15/2023 TRAUMA/STRESSOR DISORDER 05/15/2023 Problem Noted Date Diagnosed Date ANXIETY 05/15/2023 PSYCHIATRIC MEDICATION MANAGEMENT 05/15/2023 TRAUMA/STRESSOR DISORDER 05/15/2023 Problem Noted Date Diagnosed Date Pleating Supervisor 07/24/2022 Problem Noted Date Diagnosed Date ANXIETY 05/15/2023 PSYCHIATRIC MEDICATION MANAGEMENT 05/15/2023 TRAUMA/STRESSOR DISORDER 05/15/2023 Problem Noted Date Diagnosed Date Pleating Supervisor 07/24/2022 Problem Noted Date Diagnosed Date ANXIETY [...] mellitus, class A1 Procedures CONSULT TO GESTATIONAL/ ELECTRICIAN OFFICE/OUTPATIENT [facility] 60-74 MINUTES Shalonda Krause, STONE POLISHER.CNM [address] [place] [address] Referral ID Status Reason Start Date Expiration Date Visits Requested Visits Authorized [id number] Authorized PCP Requested Referral Auto-Generate d Referral 05/13/2022 05/13/2023 1 1 Specialty Diagnoses / Procedures Referred By Contac t Referred To Contact Diagnoses Diet controlled gestational diabetes mellitus (GDM) in third trimester Procedures CONSULT TO DIABETES EDUCATION OFFICE/OUTPATIENT [facility] MDM 60-74 MINUTES Vincent Ocampo, DO [address] [place] [address] Referral ID Status Reason Start Date Expiration Date Visits Requested Visits Authorized [id number] Authorized PCP Requested Referral 06/03/2022 06/03/2023 1 1 Specialty Diagnoses / Procedures Referred By Contac t Referred To Contact Jaja Moss, STONE POLISHER.PATIENT SERVICES REPRESENTATIVE [address] [place] [address] Referral ID Status Reason Start Date Expiration Date Visits Re quested Visits Authorized [id number] Closed 1 1 Specialty Diagnoses / Procedures Referred By Contac t Referred To Contact Ent - Otolaryngology Diagnoses Tinnitus of right ear Hearing difficulty, bilateral Fluid level behind tympanic membrane of both ears Procedures CONSULT TO ENT OFFICE/OUTPATIENT [facility] 60-74 MINUTES Korina Nina, STONE POLISHER.PATIENT SERVICES REPRESENTATIVE [address] [place] [address] Referral ID Status Reason Start Date Expiration Date Visits Requested Visits Authorized [id number] Authorized PCP Requested Referral 01/06/2023 01/06/2024 1 1 Specialty Diagnoses / Procedures Referred By Contac t Referred To Contact Dermatology Diagnoses Nevus Procedures CONSULT TO DERMATOLOGY OFFICE/OUTPATIENT [facility] 60-74 MINUTES Maile Beaver MD [address] [place] [address] [address] [place], [place] [id number] Referral ID Status Reason Start Date Expiration Date Visits Requested Visits Authorized [id number] Authorized PCP Requested Referral 01/27/2023 01/27/2024 1 1 Specialty Diagnoses / Procedures Referred By Contac t Referred To Contact Podiatry Diagnoses Rash of foot Procedures CONSULT TO PODIATRY OFFICE/OUTPATIENT [facility] 60-74 MINUTES Maile Beaver MD [address] [place] [address] [address] [place] [address] Referral ID Status Reason Start Date Expiration Date Visits Requested Visits Authorized [id number] Authorized PCP Requested Referral 01/27/2023 01/27/2024 1 1 Specialty Diagnoses / Procedures Referred By Contac t Referred To Contact Urology Diagnoses Recurrent UTI Procedures CONSULT TO UROLOGY OFFICE/OUTPATIENT [facility] 60-74 MINUTES Jcarlos Murguia, STONE POLISHER.PATIENT SERVICES REPRESENTATIVE [id number] [place] [address] Referral ID Status Reason Start Date Expiration Date Visits Requested Visits Authorized [id number] Authorized PCP Requested Referral 09/29/2023 09/28/2024 1 1 Specialty Diagnoses / Procedures Referred By Contac t Referred To Contact Orthopedics Diagnoses Closed nondisplaced fracture of shaft of fifth metacarpal bone of left hand, initial encounter Procedures CONSULT PANEL TO ORTHOPAEDICS OFFICE/OUTPATIENT [facility] MDM 60 MINUTES Tia Bowen, STONE POLISHER.PATIENT SERVICES REPRESENTATIVE [address] [place] [address] Referral ID Status Reason Start Date Expiration Date Visits Requested Visits Authorized [id number] Authorized PCP Requested Referral 12/28/2023 12/27/2024 1 1 Specialty Diagnoses / Procedures Referred By Eduardo t Referred To Contact XR IMAGING Diagnoses Injury of left hand, initial encounter Procedures XR HAND GENERAL 3V PA/LAT/OBL LEFT RADEX HAND MINIMUM 3 VIEWS Tia Bowen, STONE POLISHER.PATIENT SERVICES REPRESENTATIVE [address] [place] [address] [place] [address] Referral ID Status Reason Start Date Expiration Date V isits Requested Visits Authorized [id number] Closed Auto-Generate d Referral 12/28/2023 01/26/2025 1 1 Referral ID Status Reason Start Date Expiration Date V isits Requested Visits Authorized [id number] Pending Review 1 1 Specialty Diagnoses / Procedures Referred By Eduardo t Referred To Contact Pharmacy Diagnoses Bipolar disorder, in partial remission, most recent episode depressed ([facility] [place] [address] [place] [address] [facility] [address] [place] [address] Referral ID Status Reason Start Date Expiration Date Visits Requested Visits Authorized [id number] New Request Medication Reconciliation 02/22/2024 02/21/2025 1 [...] HIGH COMPLEX 45 MINS Serene Higginbotham MD [address] [place] [address] [facility] [address] [place] [address] Referral ID Status Reason Start Date Expiration Date Visits Requested Visits Authorized [id number] Pending Review Auto-Generat ed Referral 04/04/2024 04/04/2025 1 1 Specialty Diagnoses / Procedures Referred By Contralph t Referred To Contact Diagnoses Chronic migraine without aura, intractable, without status migrainosus Jaja Moss, STONE POLISHER.PATIENT SERVICES REPRESENTATIVE [address] [place] [address] Referral ID Status Reason Start Date Expiration Date Visits Re quested Visits Authorized [id number] Closed 1 1 Medications Administered Section Inactive [...] section and content) DATE CREATED AUTHOR 09/06/2019 [facility] DATE CREATED AUTHOR AUTHOR'S ORGANIZ ATION 09/30/2019 [facility] DATE CREATED AUTHOR AUTHOR'S ORGANIZ ATION 06/16/2020 [facility] DATE CREATED AUTHOR AUTHOR'S ORGANIZ ATION 11/04/2020 [facility] DATE CREATED AUTHOR AUTHOR'S ORGANIZ ATION 01/04/2021 [facility] DATE CREATED AUTHOR AUTHOR'S ORGANIZ ATION 04/25/2021 [facility] DATE CREATED AUTHOR AUTHOR'S ORGANIZ ATION 09/25/2021 [facility] DATE CREATED AUTHOR AUTHOR'S ORGANIZ ATION 04/24/2022 [facility] DATE CREATED AUTHOR AUTHOR'S ORGANIZ ATION 03/18/2025 [facility] DATE CREATED AUTHOR AUTHOR'S ORGANIZ ATION 05/28/2025 [facility] DATE CREATED AUTHOR AUTHOR'S ORGANIZ ATION 07/06/2025 [facility] DATE CREATED AUTHOR AUTHOR'S ORGANIZ ATION 10/03/2025 [facility] DATE CREATED AUTHOR AUTHOR'S ORGANIZ ATION 10/05/2025 [facility] <item> Privacy Markings (unrecogniz ed section and [...] or prosecute any alcohol or drug abuse patient.[facility] HospitalIn the event this information is protected by the Federal Confidentiality of Alcohol and Drug Abuse Patient Records regulations: The Federal rules restrict any use of the information to criminally investigate or prosecute any alcohol or drug abuse patient.[facility] HospitalIn the event this information is protected by the Federal Confidentiality of Alcohol and Drug Abuse Patient Records regulations: The Federal rules restrict any use of the information to criminally investigate or prosecute any alcohol or drug abuse patient.[facility] HospitalIn the event this information is protected by the Federal Confidentiality of Alcohol and Drug Abuse Patient Records regulations: The Federal rules restrict any use of the information to criminally investigate or prosecute any alcohol or drug abuse patient.[facility] HospitalIn the event this information is protected by the Federal Confidentiality of Alcohol and Drug Abuse Patient Records regulations: The Federal rules restrict any use of the information to criminally investigate or prosecute any alcohol or drug abuse patient.[facility] HospitalIn the event this information is protected by the Federal Confidentiality of Alcohol and Drug Abuse Patient Records regulations: The Federal rules restrict any use of the information to criminally investigate or prosecute any alcohol or drug abuse patient.[facility] HospitalIn the event this information is protected by the Federal Confidentiality of Alcohol and Drug Abuse Patient Records regulations: The Federal rules restrict any use of the information to criminally investigate or prosecute any alcohol or drug abuse patient.[facility] HospitalIn the event this information is protected by the Federal Confidentiality of Alcohol and Drug Abuse Patient Records regulations: The Federal rules restrict any use of the information to criminally investigate or prosecute any alcohol or drug abuse patient.[facility] HospitalIn the event this information is protected by the Federal Confidentiality of Alcohol and Drug Abuse Patient Records regulations: The Federal rules restrict any use of the information to criminally investigate or prosecute any alcohol or drug abuse patient.[facility] HospitalIn the event this information is protected by the Federal Confidentiality of Alcohol and Drug Abuse Patient Records regulations: The Federal rules restrict any use of the information to criminally investigate or prosecute any alcohol or drug abuse patient.[facility] HospitalIn the event this information is protected by the Federal Confidentiality of Alcohol and Drug Abuse Patient Records regulations: The Federal rules restrict any use of the information to criminally investigate or prosecute any alcohol or drug abuse patient.[facility] HospitalIn the event this information is protected by the Federal Confidentiality of Alcohol and Drug Abuse Patient Records regulations: The Federal rules restrict any use of the information to criminally investigate or prosecute any alcohol or drug abuse patient.[facility] HospitalIn the event this information is protected by the Federal Confidentiality of Alcohol and Drug Abuse Patient Records regulations: The Federal rules restrict any use of the information to criminally investigate or prosecute any alcohol or drug abuse patient.[facility] HospitalIn the event this information is protected by the Federal Confidentiality of Alcohol and Drug Abuse Patient Records regulations: The Federal rules restrict any use of the information to criminally investigate or prosecute any alcohol or drug abuse patient.[facility] HospitalIn the event this information is protected by the Federal Confidentiality of Alcohol and Drug Abuse Patient Records regulations: The Federal rules restrict any use of the information to criminally investigate or prosecute any alcohol or drug abuse patient.[facility] HospitalIn the event this information is protected by the Federal Confidentiality of Alcohol and Drug Abuse Patient Records regulations: The Federal rules restrict any use of the information to criminally investigate or prosecute any alcohol or drug abuse patient.[facility] HospitalIn the event this information is protected by the Federal Confidentiality of Alcohol and Drug Abuse Patient Records regulations: The Federal rules restrict any use of the information to criminally investigate or prosecute any alcohol or drug abuse patient.[facility] HospitalIn the event this information is protected by the Federal Confidentiality of Alcohol and Drug Abuse Patient Records regulations: The Federal rules restrict any use of the information to criminally investigate or prosecute any alcohol or drug abuse patient.[facility] HospitalIn the event this information is protected by the Federal Confidentiality of Alcohol and Drug Abuse Patient Records regulations: The Federal rules restrict any use of the information to criminally investigate or prosecute any alcohol or drug abuse patient.[facility] HospitalIn the event this information is protected by the Federal Confidentiality of Alcohol and Drug Abuse Patient Records regulations: The Federal rules restrict any use of the information to criminally investigate or prosecute any alcohol or drug abuse patient.[facility] HospitalIn the event this information is protected by the Federal Confidentiality of Alcohol and Drug Abuse Patient Records regulations: The Federal rules restrict any use of the information to criminally investigate or prosecute any alcohol or drug abuse patient.[facility] HospitalIn the event this information is protected by the Federal Confidentiality of Alcohol and Drug Abuse Patient Records regulations: The Federal rules restrict any use of the information to criminally investigate or prosecute any alcohol or drug abuse patient.[facility] HospitalIn the event this information is protected by the Federal Confidentiality of Alcohol and Drug Abuse Patient Records regulations: The Federal rules restrict any use of the information to criminally investigate or prosecute any alcohol or drug abuse patient.[facility] HospitalIn the event this information is protected by the Federal Confidentiality of Alcohol and Drug Abuse Patient Records regulations: The Federal rules restrict any use of the information to criminally investigate or prosecute any alcohol or drug abuse patient.[facility] HospitalIn the event this information is protected by the Federal Confidentiality of Alcohol and Drug Abuse Patient Records regulations: The Federal rules restrict any use of the information to criminally investigate or prosecute any alcohol or drug abuse patient.[facility] HospitalIn the event this information is protected by the Federal Confidentiality of Alcohol and Drug Abuse Patient Records regulations: The Federal rules restrict any use of the information to criminally investigate or prosecute any alcohol or drug abuse patient.[facility] HospitalIn the event this information is protected by the Federal Confidentiality of Alcohol and Drug Abuse Patient Records regulations: The Federal rules restrict any use of the information to criminally investigate or prosecute any alcohol or drug abuse patient.[facility] HospitalIn the event this information is protected by the Federal Confidentiality of Alcohol and Drug Abuse Patient Records regulations: The Federal rules restrict any use of the information to criminally investigate or prosecute any alcohol or drug abuse patient.[facility] HospitalIn the event this information is protected by the Federal Confidentiality of Alcohol and Drug Abuse Patient Records regulations: The Federal rules restrict any use of the information to criminally investigate or prosecute any alcohol or drug abuse patient.[facility] HospitalIn the event this information is protected by the Federal Confidentiality of Alcohol and Drug Abuse Patient Records regulations: The Federal rules restrict any use of the information to criminally investigate or prosecute any alcohol or drug abuse patient.[facility] HospitalIn the event this information is protected by the Federal Confidentiality of Alcohol and Drug Abuse Patient Records regulations: The Federal rules restrict any use of the information to criminally investigate or prosecute any alcohol or drug abuse patient.[facility] HospitalIn the event this information is protected by the Federal Confidentiality of Alcohol and Drug Abuse Patient Records regulations: The Federal rules restrict any use of the information to criminally investigate or prosecute any alcohol or drug abuse patient.[facility] HospitalIn the event this information is protected by the Federal Confidentiality of Alcohol and Drug Abuse Patient Records regulations: The Federal rules restrict any use of the information to criminally investigate or prosecute any alcohol or drug abuse patient.[facility] HospitalIn the event this information is protected by the Federal Confidentiality of Alcohol and Drug Abuse Patient Records regulations: The Federal rules restrict any use of the information to criminally investigate or prosecute any alcohol or drug abuse patient.[facility] HospitalIn the event this information is protected by the Federal Confidentiality of Alcohol and Drug Abuse Patient Records regulations: The Federal rules restrict any use of the information to criminally investigate or prosecute any alcohol or drug abuse patient.[facility] HospitalIn the event this information is protected by the Federal Confidentiality of Alcohol and Drug Abuse Patient Records regulations: The Federal rules restrict any use of the information to criminally investigate or prosecute any alcohol or drug abuse patient.[facility] HospitalIn the event this information is protected by the Federal Confidentiality of Alcohol and Drug Abuse Patient Records regulations: The Federal rules restrict any use of the information to criminally investigate or prosecute any alcohol or drug abuse patient.[facility] HospitalIn the event this information is protected by the Federal Confidentiality of Alcohol and Drug Abuse Patient Records regulations: The Federal rules restrict any use of the information to criminally investigate or prosecute any alcohol or drug abuse patient.[facility] HospitalIn the event this information is protected by the Federal Confidentiality of Alcohol and Drug Abuse Patient Records regulations: The Federal rules restrict any use of the information to criminally investigate or prosecute any alcohol or drug abuse patient.[facility] HospitalIn the event this information is protected by the Federal Confidentiality of Alcohol and Drug Abuse Patient Records regulations: The Federal rules restrict any use of the information to criminally investigate or prosecute any alcohol or drug abuse patient.[facility] HospitalIn the event this information is protected by the Federal Confidentiality of Alcohol and Drug Abuse Patient Records regulations: The Federal rules restrict any use of the information to criminally investigate or prosecute any alcohol or drug abuse patient.[facility] HospitalIn the event this information is protected by the Federal Confidentiality of Alcohol and Drug Abuse Patient Records regulations: The Federal rules restrict any use of the information to criminally investigate or prosecute any alcohol or drug abuse patient.[facility] HospitalIn the event this information is protected by the Federal Confidentiality of Alcohol and Drug Abuse Patient Records regulations: The Federal rules restrict any use of the information to criminally investigate or prosecute any alcohol or drug abuse patient.[facility] HospitalIn the event this information is protected by the Federal Confidentiality of Alcohol and Drug Abuse Patient Records regulations: The Federal rules restrict any use of the information to criminally investigate or prosecute any alcohol or drug abuse patient.[facility] HospitalIn the event this information is protected by the Federal Confidentiality of Alcohol and Drug Abuse Patient Records regulations: The Federal rules restrict any use of the information to criminally investigate or prosecute any alcohol or drug abuse patient.[facility] HospitalIn the event this information is protected by the Federal Confidentiality of Alcohol and Drug Abuse Patient Records regulations: The Federal rules restrict any use of the information to criminally investigate or prosecute any alcohol or drug abuse patient.[facility] HospitalIn the event this information is protected by the Federal Confidentiality of Alcohol and Drug Abuse Patient Records regulations: The Federal rules restrict any use of the information to criminally investigate or prosecute any alcohol or drug abuse patient.[facility] HospitalIn the event this information is protected by the Federal Confidentiality of Alcohol and Drug Abuse Patient Records regulations: The Federal rules restrict any use of the information to criminally investigate or prosecute any alcohol or drug abuse patient.[facility] HospitalIn the event this information is protected by the Federal Confidentiality of Alcohol and Drug Abuse Patient Records regulations: The Federal rules restrict any use of the information to criminally investigate or prosecute any alcohol or drug abuse patient.[facility] HospitalIn the event this information is protected by the Federal Confidentiality of Alcohol and Drug Abuse Patient Records regulations: The Federal rules restrict any use of the information to criminally investigate or prosecute any alcohol or drug abuse patient.[facility] HospitalIn the event this information is protected by the Federal Confidentiality of Alcohol and Drug Abuse Patient Records regulations: The Federal rules restrict any use of the information to criminally investigate or prosecute any alcohol or drug abuse patient.[facility] HospitalIn the event this information is protected by the Federal Confidentiality of Alcohol and Drug Abuse Patient Records regulations: The Federal rules restrict any use of the information to criminally investigate or prosecute any alcohol or drug abuse patient.[facility] HospitalIn the event this information is protected by the Federal Confidentiality of Alcohol and Drug Abuse Patient Records regulations: The Federal rules restrict any use of the information to criminally investigate or prosecute any alcohol or drug abuse patient.[facility] HospitalIn the event this information is protected by the Federal Confidentiality of Alcohol and Drug Abuse Patient Records regulations: The Federal rules restrict any use of the information to criminally investigate or prosecute any alcohol or drug abuse patient.[facility] HospitalIn the event this information is protected by the Federal Confidentiality of Alcohol and Drug Abuse Patient Records regulations: The Federal rules restrict any use of the information to criminally investigate or prosecute any alcohol or drug abuse patient.[facility] HospitalIn the event this information is protected by the Federal Confidentiality of Alcohol and Drug Abuse Patient Records regulations: The Federal rules restrict any use of the information to criminally investigate or prosecute any alcohol or drug abuse patient.[facility] HospitalIn the event this information is protected by the Federal Confidentiality of Alcohol and Drug Abuse Patient Records regulations: The Federal rules restrict any use of the information to criminally investigate or prosecute any alcohol or drug abuse patient.[facility] HospitalIn the event this information is protected by the Federal Confidentiality of Alcohol and Drug Abuse Patient Records regulations: The Federal rules restrict any use of the information to criminally investigate or prosecute any alcohol or drug abuse patient.[facility] HospitalIn the event this information is protected by the Federal Confidentiality of Alcohol and Drug Abuse Patient Records regulations: The Federal rules restrict any use of the information to criminally investigate or prosecute any alcohol or drug abuse patient.[facility] HospitalIn the event this information is protected by the Federal Confidentiality of Alcohol and Drug Abuse Patient Records regulations: The Federal rules restrict any use of the information to criminally investigate or prosecute any alcohol or drug abuse patient.[facility] HospitalIn the event this information is protected by the Federal Confidentiality of Alcohol and Drug Abuse Patient Records regulations: The Federal rules restrict any use of the information to criminally investigate or prosecute any alcohol or drug abuse patient.[facility] HospitalIn the event this information is protected by the Federal Confidentiality of Alcohol and Drug Abuse Patient Records regulations: The Federal rules restrict any use of the information to criminally investigate or prosecute any alcohol or drug abuse patient.[facility] HospitalIn the event this information is protected by the Federal Confidentiality of Alcohol and Drug Abuse Patient Records regulations: The Federal rules restrict any use of the information to criminally investigate or prosecute any alcohol or drug abuse patient.[facility] HospitalIn the event this information is protected by the Federal Confidentiality of Alcohol and Drug Abuse Patient Records regulations: The Federal rules restrict any use of the information to criminally investigate or prosecute any alcohol or drug abuse patient.[facility] HospitalIn the event this information is protected by the Federal Confidentiality of Alcohol and Drug Abuse Patient Records regulations: The Federal rules restrict any use of the information to criminally investigate or prosecute any alcohol or drug abuse patient.[facility] HospitalIn the event this information is protected by the Federal Confidentiality of Alcohol and Drug Abuse Patient Records regulations: The Federal rules restrict any use of the information to criminally investigate or prosecute any alcohol or drug abuse patient.[facility] HospitalIn the event this information is protected by the Federal Confidentiality of Alcohol and Drug Abuse Patient Records regulations: The Federal rules restrict any use of the information to criminally investigate or prosecute any alcohol or drug abuse patient.[facility] HospitalIn the event this information is protected by the Federal Confidentiality of Alcohol and Drug Abuse Patient Records regulations: The Federal rules restrict any use of the information to criminally investigate or prosecute any alcohol or drug abuse patient.[facility] HospitalIn the event this information is protected by the Federal Confidentiality of Alcohol and Drug Abuse Patient Records regulations: The Federal rules restrict any use of the information to criminally investigate or prosecute any alcohol or drug abuse patient.[facility] HospitalIn the event this information is protected by the Federal Confidentiality of Alcohol and Drug Abuse Patient Records regulations: The Federal rules restrict any use of the information to criminally investigate or prosecute any alcohol or drug abuse patient.[facility] HospitalIn the event this information is protected by the Federal Confidentiality of Alcohol and Drug Abuse Patient Records regulations: The Federal rules restrict any use of the information to criminally investigate or prosecute any alcohol or drug abuse patient.[facility] HospitalIn the event this information is protected by the Federal Confidentiality of Alcohol and Drug Abuse Patient Records regulations: The Federal rules restrict any use of the information to criminally investigate or prosecute any alcohol or drug abuse patient.[facility] HospitalIn the event this information is protected by the Federal Confidentiality of Alcohol and Drug Abuse Patient Records regulations: The Federal rules restrict any use of the information to criminally investigate or prosecute any alcohol or drug abuse patient.[facility] HospitalIn the event this information is protected by the Federal Confidentiality of Alcohol and Drug Abuse Patient Records regulations: The Federal rules restrict any use of the information to criminally investigate or prosecute any alcohol or drug abuse patient.[facility] HospitalIn the event this information is protected by the Federal Confidentiality of Alcohol and Drug Abuse Patient Records regulations: The Federal rules restrict any use of the information to criminally investigate or prosecute any alcohol or drug abuse patient.[facility] HospitalIn the event this information is protected by the Federal Confidentiality of Alcohol and Drug Abuse Patient Records regulations: The Federal rules restrict any use of the information to criminally investigate or prosecute any alcohol or drug abuse patient.[facility] HospitalIn the event this information is protected by the Federal Confidentiality of Alcohol and Drug Abuse Patient Records regulations: The Federal rules restrict any use of the information to criminally investigate or prosecute any alcohol or drug abuse patient.[facility] HospitalIn the event this information is protected by the Federal Confidentiality of Alcohol and Drug Abuse Patient Records regulations: The Federal rules restrict any use of the information to criminally investigate or prosecute any alcohol or drug abuse patient.[facility] HospitalIn the event this information is protected by the Federal Confidentiality of Alcohol and Drug Abuse Patient Records regulations: The Federal rules restrict any use of the information to criminally investigate or prosecute any alcohol or drug abuse patient.[facility] HospitalIn the event this information is protected by the Federal Confidentiality of Alcohol and Drug Abuse Patient Records regulations: The Federal rules restrict any use of the information to criminally investigate or prosecute any alcohol or drug abuse patient.[facility] HospitalIn the event this information is protected by the Federal Confidentiality of Alcohol and Drug Abuse Patient Records regulations: The Federal rules restrict any use of the information to criminally investigate or prosecute any alcohol or drug abuse patient.[facility] HospitalIn the event this information is protected by the Federal Confidentiality of Alcohol and Drug Abuse Patient Records regulations: The Federal rules restrict any use of the information to criminally investigate or prosecute any alcohol or drug abuse patient.[facility] HospitalIn the event this information is protected by the Federal Confidentiality of Alcohol and Drug Abuse Patient Records regulations: The Federal rules restrict any use of the information to criminally investigate or prosecute any alcohol or drug abuse patient.[facility] HospitalIn the event this information is protected by the Federal Confidentiality of Alcohol and Drug Abuse Patient Records regulations: The Federal rules restrict any use of the information to criminally investigate or prosecute any alcohol or drug abuse patient.[facility] HospitalIn the event this information is protected by the Federal Confidentiality of Alcohol and Drug Abuse Patient Records regulations: The Federal rules restrict any use of the information to criminally investigate or prosecute any alcohol or drug abuse patient.[facility] HospitalIn the event this information is protected by the Federal Confidentiality of Alcohol and Drug Abuse Patient Records regulations: The Federal rules restrict any use of the information to criminally investigate or prosecute any alcohol or drug abuse patient.[facility] HospitalIn the event this information is protected by the Federal Confidentiality of Alcohol and Drug Abuse Patient Records regulations: The Federal rules restrict any use of the information to criminally investigate or prosecute any alcohol or drug abuse patient.[facility] HospitalIn the event this information is protected by the Federal Confidentiality of Alcohol and Drug Abuse Patient Records regulations: The Federal rules restrict any use of the information to criminally investigate or prosecute any alcohol or drug abuse patient.[facility] HospitalIn the event this information is protected by the Federal Confidentiality of Alcohol and Drug Abuse Patient Records regulations: The Federal rules restrict any use of the information to criminally investigate or prosecute any alcohol or drug abuse patient.[facility] HospitalIn the event this information is protected by the Federal Confidentiality of Alcohol and Drug Abuse Patient Records regulations: The Federal rules restrict any use of the information to criminally investigate or prosecute any alcohol or drug abuse patient.[facility] HospitalIn the event this information is protected by the Federal Confidentiality of Alcohol and Drug Abuse Patient Records regulations: The Federal rules restrict any use of the information to criminally investigate or prosecute any alcohol or drug abuse patient.[facility] HospitalIn the event this information is protected by the Federal Confidentiality of Alcohol and Drug Abuse Patient Records regulations: The Federal rules restrict any use of the information to criminally investigate or prosecute any alcohol or drug abuse patient.[facility] HospitalIn the event this information is protected by the Federal Confidentiality of Alcohol and Drug Abuse Patient Records regulations: The Federal rules restrict any use of the information to criminally investigate or prosecute any alcohol or drug abuse patient.[facility] HospitalIn the event this information is protected by the Federal Confidentiality of Alcohol and Drug Abuse Patient Records regulations: The Federal rules restrict any use of the information to criminally investigate or prosecute any alcohol or drug abuse patient.[facility] HospitalIn the event this information is protected by the Federal Confidentiality of Alcohol and Drug Abuse Patient Records regulations: The Federal rules restrict any use of the information to criminally investigate or prosecute any alcohol or drug abuse patient.[facility] HospitalIn the event this information is protected by the Federal Confidentiality of Alcohol and Drug Abuse Patient Records regulations: The Federal rules restrict any use of the information to criminally investigate or prosecute any alcohol or drug abuse patient.[facility] HospitalIn the event this information is protected by the Federal Confidentiality of Alcohol and Drug Abuse Patient Records regulations: The Federal rules restrict any use of the information to criminally investigate or prosecute any alcohol or drug abuse patient.[facility] HospitalIn the event this information is protected by the Federal Confidentiality of Alcohol and Drug Abuse Patient Records regulations: The Federal rules restrict any use of the information to criminally investigate or prosecute any alcohol or drug abuse patient.[facility] HospitalIn the event this information is protected by the Federal Confidentiality of Alcohol and Drug Abuse Patient Records regulations: The Federal rules restrict any use of the information to criminally investigate or prosecute any alcohol or drug abuse patient.[facility] HospitalIn the event this information is protected by the Federal Confidentiality of Alcohol and Drug Abuse Patient Records regulations: The Federal rules restrict any use of the information to criminally investigate or prosecute any alcohol or drug abuse patient.[facility] HospitalIn the event this information is protected by the Federal Confidentiality of Alcohol and Drug Abuse Patient Records regulations: The Federal rules restrict any use of the information to criminally investigate or prosecute any alcohol or drug abuse patient.[facility] HospitalIn the event this information is protected by the Federal Confidentiality of Alcohol and Drug Abuse Patient Records regulations: The Federal rules restrict any use of the information to criminally investigate or prosecute any alcohol or drug abuse patient.[facility] HospitalIn the event this information is protected by the Federal Confidentiality of Alcohol and Drug Abuse Patient Records regulations: The Federal rules restrict any use of the information to criminally investigate or prosecute any alcohol or drug abuse patient.[facility] HospitalIn the event this information is protected by the Federal Confidentiality of Alcohol and Drug Abuse Patient Records regulations: The Federal rules restrict any use of the information to criminally investigate or prosecute any alcohol or drug abuse patient.[facility] HospitalIn the event this information is protected by the Federal Confidentiality of Alcohol and Drug Abuse Patient Records regulations: The Federal rules restrict any use of the information to criminally investigate or prosecute any alcohol or drug abuse patient.[facility] HospitalIn the event this information is protected by the Federal Confidentiality of Alcohol and Drug Abuse Patient Records regulations: The Federal rules restrict any use of the information to criminally investigate or prosecute any alcohol or drug abuse patient.[facility] HospitalIn the event this information is protected by the Federal Confidentiality of Alcohol and Drug Abuse Patient Records regulations: The Federal rules restrict any use of the information to criminally investigate or prosecute any alcohol or drug abuse patient.[facility] HospitalIn the event this information is protected by the Federal Confidentiality of Alcohol and Drug Abuse Patient Records regulations: The Federal rules restrict any use of the information to criminally investigate or prosecute any alcohol or drug abuse patient.[facility] HospitalIn the event this information is protected by the Federal Confidentiality of Alcohol and Drug Abuse Patient Records regulations: The Federal rules restrict any use of the information to criminally investigate or prosecute any alcohol or drug abuse patient.[facility] HospitalIn the event this information is protected by the Federal Confidentiality of Alcohol and Drug Abuse Patient Records regulations: The Federal rules restrict any use of the information to criminally investigate or prosecute any alcohol or drug abuse patient.[facility] HospitalIn the event this information is protected by the Federal Confidentiality of Alcohol and Drug Abuse Patient Records regulations: The Federal rules restrict any use of the information to criminally investigate or prosecute any alcohol or drug abuse patient.[facility] HospitalIn the event this information is protected by the Federal Confidentiality of Alcohol and Drug Abuse Patient Records regulations: The Federal rules restrict any use of the information to criminally investigate or prosecute any alcohol or drug abuse patient.[facility] HospitalIn the event this information is protected by the Federal Confidentiality of Alcohol and Drug Abuse Patient Records regulations: The Federal rules restrict any use of the information to criminally investigate or prosecute any alcohol or drug abuse patient.[facility] HospitalIn the event this information is protected by the Federal Confidentiality of Alcohol and Drug Abuse Patient Records regulations: The Federal rules restrict any use of the information to criminally investigate or prosecute any alcohol or drug abuse patient.[facility] Reason for Visit (unrecogniz ed section and content) Reason Comments pain of concern Reason Comments Care Reason Comments US Specialty Diagnoses / Procedures Referred By Eduardo garcia Referred To Contact [facility] Diagnoses Encounter for anatomic survey 16 weeks gestation of Medication exposure during first trimester of Procedures OBSTETRIC ULTRASOUND WHI US PREG UTERUS AFTER 1ST [place] [address] [facility] [address] [place] [address] [facility] [address] [place] [address] Referral ID Status Reason Start Date Expiration Date V isits Requested Visits Authorized [id number] Closed Auto-Generate d Referral 02/11/2022 02/11/2023 1 1 Reason Onset Date Comments Returning Patient's Call 03/16/2022 Reason Comments Pain, Back Reason Comments Care Reason Comments Results Reason Comments Results Specialty Diagnoses / Procedures Referred By Contac t Referred To Contact Diagnoses Gestational diabetes mellitus, class A1 Procedures CONSULT TO GESTATIONAL/ ELECTRICIAN OFFICE/OUTPATIENT NEW HIGH MDM 60-74 MINUTES Shalonda Krause APRN.CNM [address] [place] [address] Referral ID Status Reason Start Date Expiration Date V isits Requested Visits Authorized [id number] Closed PCP Requested Referral Auto-Generated Referral 05/13/2022 05/13/2023 1 1 Reason Comments New GDM Specialty Diagnoses / Procedures Referred By Contac t Referred To Contact Endocrinology Diagnoses Gestational diabetes mellitus (GDM) affecting second Procedures CONSULT TO ENDOCRINOLOGY OFFICE/OUTPATIENT NEW [facility] MDM 60-74 MINUTES Anny He APRN.CNM [address] [place] [address] Referral ID Status Reason Start Date Expiration Date V isits Requested Visits Authorized [id number] Closed PCP Requested Referral 05/25/2022 05/25/2023 1 1 Reason Comments Medical Nutrition Therapy GDM Specialty Diagnoses / Procedures Referred By Contac t Referred To Contact Diagnoses Diet controlled gestational diabetes mellitus (GDM) in third trimester Procedures CONSULT TO DIABETES EDUCATION OFFICE/OUTPATIENT NEW [facility] MDM 60-74 MINUTES Vincent Ocampo, [address] [place] [address] Referral ID Status Reason Start Date Expiration Date V isits Requested Visits Authorized [id number] Closed PCP Requested Referral 06/03/2022 06/03/2023 1 [...] Injection Specialty Diagnoses / Procedures Referred By Eduardo t Referred To Contact HEADACHE Diagnoses Chronic migraine without aura, intractable, without status migrainosus Procedures BOTULINUM TOXIN A PER 1 UNIT CHEMODERVATE FACIAL/TRIGEM/CERV MUSC MIGRAINE Initial due 06/09/2023 Botox 200 units every 12 weeks for 1 year through [facility] buy and bill Preempt protocol [id number] Procedure -[id number] chemodervate facial/trigem/cerv musc migraine Jaja Moss, STONE POLISHER.PATIENT SERVICES REPRESENTATIVE [address] [place] [address] Neur Headache Main [address] [place] [address] Referral ID Status Reason Start Date Expiration Date V isits Requested Visits Authorized [id number] Authorized 06/11/2023 06/10/2024 5 5 Reason Comments Psychiatric Med Management Reason Comments Ear Pain R ear pain X 2-3 day s Reason Onset Date Comments Missed Appointment 09/24/2023 Reason Comments UTI Bloody urine, burnin g x 12 hrs Ear Pain Right ear, here 10/2 3 drops didn't help Reason Onset Date Comments Population Health Navigation Outreach 10/23/2023 Maile Beaver MD offboarding Reason Comments Medication Management Bipolar Disorder Follow Up Reason Comments Radiology XR Specialty Diagnoses / Procedures Referred By Eduardo t Referred To Contact XR IMAGING Diagnoses Injury of left hand, initial encounter Procedures XR HAND GENERAL 3V PA/LAT/OBL LEFT RADEX HAND MINIMUM 3 VIEWS Tia Bowen, STONE POLISHER.PATIENT SERVICES REPRESENTATIVE [address] [facility] [place] [address] [place] [address] Referral ID Status Reason Start Date Expiration Date V isits Requested Visits Authorized [id number] Closed Auto-Generate d Referral 12/28/2023 01/26/2025 1 [...] encounter Procedures CONSULT PANEL TO ORTHOPAEDICS OFFICE/OUTPATIENT [facility] 60 MINUTES Tia Bowen, STONE POLISHER.PATIENT SERVICES REPRESENTATIVE [address] [place] [address] Referral ID Status Reason Start Date Expiration Date V isits Requested Visits Authorized [id number] Closed PCP Requested Referral 12/28/2023 12/27/2024 1 1 Reason Comments Radio Gen RMP Specialty Diagnoses / Procedures Referred By Contac t Referred To Contact XR IMAGING Diagnoses Closed nondisplaced fracture of shaft of fifth metacarpal bone of left hand, initial encounter Procedures XR HAND GENERAL 3V PA/LAT/OBL LEFT RADEX HAND MINIMUM 3 VIEWS Gabriela Andrade, ANIRUDH-C [address] [place] [address] [place] [address] Referral ID Status Reason Start Date Expiration Date V isits Requested Visits Authorized [id number] Closed Auto-Generate d Referral 01/01/2024 01/30/2025 1 1 Reason Comments Botox Injection Specialty Diagnoses / Procedures Referred By Contac t Referred To Contact HEADACHE Diagnoses Chronic migraine without aura, intractable, without status migrainosus Procedures BOTULINUM TOXIN A PER 1 UNIT CHEMODERVATE FACIAL/TRIGEM/CERV MUSC MIGRAINE Initial due 06/09/2023 Botox 200 units every 12 weeks for 1 year through [facility] buy and bill Preempt protocol [id number] Procedure -[id number] chemodervate facial/trigem/cerv musc migraine Jaja Moss, STONE POLISHER.PATIENT SERVICES REPRESENTATIVE [address] [place] [address] Neur Headache Main [address] [place] [address] Reason Comments Missed Appointment Missed scheduled RN visit Reason Comments Established Patient Follow Up Fracture Pain Reason Comments Radiology XR Specialty Diagnoses / Procedures Referred By Contac t Referred To Contact XR IMAGING Diagnoses Pain Procedures XR HAND GENERAL 3V PA/LAT/OBL LEFT RADEX HAND MINIMUM 3 VIEWS Gabriela Andrade PA-C [address] [place] [address] [place] [address] Referral ID Status Reason Start Date Expiration Date V isits Requested Visits Authorized [id number] Closed Auto-Generate d Referral 01/01/2024 01/30/2025 1 1 Reason Comments Follow Up Interim visit Reason Comments Opened In Error Reason Comments [facility] [facility]/[employer] Reason Comments Psychiatric Med Management Reason Comments [...] every 12 weeks for 1 year through [facility] buy and bill Preempt protocol [id number] Procedure -[id number] chemodervate facial/trigem/cerv musc migraine Dakota Guzman, ST[employer] POLISHER.PATIENT SERVICES REPRESENTATIVE [address] [place] [address] Neur Headache Main [address] [place] [address] Referral ID Status Reason Start Date Expiration Date V isits Requested Visits Authorized [id number] Authorized 06/08/2024 06/07/2025 4 4 Reason Comments [...] every 12 weeks for 1 year through [facility] buy and bill Preempt protocol [id number] Procedure -[id number] chemodervate facial/trigem/cerv musc migraine Dakota Guzman, STONE POLISHER.PATIENT SERVICES REPRESENTATIVE [address] [place] [address] Neur Headache Main [address] [place] [address] Reason Comments Insurance Authorization [employer] [id number] [...] Referred By Eduardo t Referred To Contact BR IMAGING Diagnoses Breast lesion Procedures US BREAST LTD LEFT US BREAST UNI REAL TIME WITH IMAGE LIMITED Everett Grimes MD [address] [place] [address] Phone: tel: fax: [facility] [address] [place] [address] Referral ID Status Reason Start Date Expiration Date V isits Requested Visits Authorized [id number] Closed Auto-Generate d Referral 01/31/2025 03/02/2026 1 1 Reason Comments Case Management Reason Comments Follow Up Client needs to sign JATINDER for [facility] Reason Comments Radiology US Reason Comments Equine Dentist - Other Reason Comments Difficulty Swallowing Reason Comments Botox Injection Patient presents say ing, My rescue medication doesn't work. Specialty Diagnoses / Procedures Referred By Contac t Referred To Contact HEADACHE Diagnoses Chronic migraine without aura, intractable, without status migrainosus Procedures BOTULINUM TOXIN A PER 1 UNIT CHEMODERVATE FACIAL/TRIGEM/CERV MUSC MIGRAINE Botox renewal due 06/04/24 Botox 200 units every 12 weeks for 1 year through [facility] buy and bill Preempt protocol [id number] Procedure -[id number] chemodervate facial/trigem/cerv musc migraine Dakota Guzman APRN.PATIENT SERVICES REPRESENTATIVE [address] [place] [address] Phone: tel: fax: Neurology [address] [place] [address] Phone: tel: fax: Referral ID Status Reason Start Date Expiration Date Visits Re quested Visits Authorized [id number] Closed 06/08/2024 06/07/2025 4 4 Reason Comments UTI Dysuria, vaginal itc adan and discharge, hematuria x4 days, BV/yeast Reason Onset Date Comments Results 04/20/2025 Reason Onset Date Comments Behavioral Health Outreach 05/02/2025 Reason Onset Date Comments 05/18/2025 Specialty Diagnoses / Procedures Referred By Eduardo t Referred To Contact [facility] Diagnoses Chronic migraine without aura, intractable, without status migrainosus Procedures CHEMODERVATE FACIAL/TRIGEM/CERV MUSC MIGRAINE BOTULINUM TOXIN A PER 1 UNIT Initial Botox 200u every 12 weeks x 1 year preempt protocol Jaja Moss, ERIC.PATIENT SERVICES REPRESENTATIVE [address] [place] [address] Phone: tel: fax: Neurology [address] [place] [address] Phone: tel: fax: Referral ID Status Reason Start Date Expiration Date V isits Requested Visits Authorized [id number] Authorized 06/14/2025 06/14/2026 2 2 Reason Comments Individual Counseling Reason Comments Case Management Discharge Goals (unrecognized section and content) Goals may be documented in a n alternate sectionGoals may be documented in an alternate section Care Teams (unrecognized sec tion and content) Engineering Mathematician Relationship Specialty Start Date End Date Maile Beaver MD [address] [place] [id number] PCP - General Internal Medicine 01/27/23 Engineering Mathematician Relationship Specialty Start Date End Date Maile Beaver MD [address] [place] [address] PCP - General Internal Medicine 01/27/23 Engineering Mathematician Relationship Specialty Start Date End Date Maile Beaver MD [address] [place] [address] PCP - General Internal Medicine 01/27/23 Engineering Mathematician Relationship Specialty Start Date End Date Maile Beaver MD [address] [place] [address] PCP - General Internal Medicine 01/27/23 Engineering Mathematician Relationship Specialty Start Date End Date Maile Beaver MD [address] [place] [address] PCP - General Internal Medicine 01/27/23 Engineering Mathematician Relationship Specialty Start Date End Date Maile Beaver MD [address] [place] [address] PCP - General Internal Medicine 01/27/23 Engineering Mathematician Relationship Specialty Start Date End Date Maile Beaver MD [address] [place] [address] PCP - General Internal Medicine 01/27/23 Engineering Mathematician Relationship Specialty Start Date End Date Maile Beaver MD [address] [place] [address] PCP - General Internal Medicine 01/27/23 Engineering Mathematician Relationship Specialty Start Date End Date Maile Beaver MD [address] [place] [address] PCP - General Internal Medicine 01/27/23 Engineering Mathematician Relationship Specialty Start Date End Date Maile Beaver MD [address] [place] [address] PCP - General Internal Medicine 01/27/23 Engineering Mathematician Relationship Specialty Start Date End Date Maile Beaver MD [address] [place] [address] PCP - General Internal Medicine 01/27/23 Engineering Mathematician Relationship Specialty Start Date End Date Maile Beaver MD [address] [place] [address] PCP - General Internal Medicine 01/27/23 Engineering Mathematician Relationship Specialty Start Date End Date Maile Beaver MD [address] [place] [address] PCP - General Internal Medicine 01/27/23 Engineering Mathematician Relationship Specialty Start Date End Date Maile Beaver MD [address] [place] [address] PCP - General Internal Medicine 01/27/23 Engineering Mathematician Relationship Specialty Start Date End Date Maile Beaver MD [address] [place] [address] PCP - General Internal Medicine 01/27/23 Engineering Mathematician Relationship Specialty Start Date End Date Maile Beaver MD [address] [place] [address] PCP - General Internal Medicine 01/27/23 Engineering Mathematician Relationship Specialty Start Date End Date Maile Beaver MD [address] [place] [address] PCP - General Internal Medicine 01/27/23 Engineering Mathematician Relationship Specialty Start Date End Date Maile Beaver MD [address] [place] [address] PCP - General Internal Medicine 01/27/23 Engineering Mathematician Relationship Specialty Start Date End Date Maile Beaver MD [address] [place] [address] PCP - General Internal Medicine 01/27/23 Engineering Mathematician Relationship Specialty Start Date End Date Maile Beaver MD [address] [place] [address] PCP - General Internal Medicine 01/27/23 Engineering Mathematician Relationship Specialty Start Date End Date Maile Beaver MD [address] [place] [address] PCP - General Internal Medicine 01/27/23 Engineering Mathematician Relationship Specialty Start Date End Date Maile Beaver MD [address] [place] [address] PCP - General Internal Medicine 01/27/23 Engineering Mathematician Relationship Specialty Start Date End Date Maile Beaver MD [address] [facility] [place] [address] PCP - General Internal Medicine 01/27/23 Engineering Mathematician Relationship Specialty Start Date End Date Maile Beaver MD [address] [place] [address] PCP - General Internal Medicine 01/27/23 Engineering Mathematician Relationship Specialty Start Date End Date Maile Beaver MD [address] [place] [address] PCP - General Internal Medicine 01/27/23 Team Status: Active Member Role Status Dates No Primary Care Physician Primary Care Provider Active Team Status: Inactive Member Role Status Dates No Primary Care Physician Primary Care Provider Active Start: March 10, 2025 End: March 10, 2025 Dr. Araseli Babb , DO Emergency Provider Active Start: March 10, 2025 [...] BE BASED ON THE PRIMARY CLINICAL RECORDS. [facility] [employer] [facility]. provides no warranty or guarantee of the accuracy or completeness of information in this document.
[2025-11-11 14:13] LABS: Anion Gap 14 (5-15); BUN 11 mg/dL (4-19); BUN/Creat Ratio 16.1 RATIO (10-20); Calcium,Total 9.4 mg/dL (7.6-11.0); Carbon Dioxide 22.9 mmol/L (21.0-32.0); Chloride 103 mmol/L (98-108); Estimated Creatinine Clearance 128.17 ml/min (50-250); Glucose 96 mg/dL (70-99); Potassium 4.2 mmol/L (3.3-5.1)
--- NOTE | 2025-11-11 14:29 | CM.ED ---
Social Work Date of referral: 11/11/25 Reason for referral: Advanced Care Directives (ACD's) not on file. Referred by: Social Work Identification Patient provided consent to social work visit. Senior Nurse Manager requested copy of ACD's which patient agreed to bring in. Cici Stanley, AUTOMOTIVE TIRE TECHNICIAN, COLLECTION MANAGER
[2025-11-11 14:32] VITALS: BP 131/69; PULSE 71; RESP 18; TEMP 36.7; O2SAT 98
== END 2025-11-11 14:38 | disposition home or self-care (01) ==
PROVIDERS: Emergency Provider Emergency Medicine; Visit Provider Emergency Medicine
DX: N64.4 Mastodynia (principal)
CPT/HCPCS: 80048; 85025; 99283

== ENCOUNTER 2025-11-22 12:48 | Emergency (ER) | payer MEDICAID, SELFPAY ==
[2025-11-22 12:49] VITALS: BP 146/85; PULSE 70; RESP 18; TEMP 36.1; O2SAT 96; BMI 37.8
--- NOTE | 2025-11-22 13:02 | RAD_ITS ---
PROCEDURE: CHEST PA AND LATERAL 11/22/2025 REASON FOR EXAM: COUGH TECHNIQUE: Procedure Code: RADCXR Modality: DX Procedure: CHEST PA AND LATERAL COMPARISON: None FINDINGS: Hardware: None Heart: The heart size is normal. Mediastinum: The mediastinal contour is unremarkable. Lungs: The lungs are clear. Bones: The bones are unremarkable. RAD/Chest PA and Lateral IMPRESSION: No acute pulmonary process Reading Location: [id number]
--- NOTE | 2025-11-22 13:03 | ED.VIS.DYS ---
HPI History of Present Illness Chief Complaint: Cold Sx Informant: patient Narrative Narrative: 35-year-old female presenting to the emergency room with about 1011 days of cough. Patient states that she has had a cold that she cannot seem to shake. She notes nasal congestion and cough. Over the past 4 days she has developed nausea and vomiting. She had some Zofran leftover from an old prescription which has not been helpful. She particularly notes vomiting when she coughs. She has not taken her temperature to know if she has had a fever. No rashes. Patient also notes that she may have a yeast infection. She describes vaginal itching and thick white discharge. The patient states that she just moved to [facility] a couple months ago and has not established primary care. She states that she went to urgent care and was referred to emergency. [facility] Medical History Bipolar disorder Gestational diabetes delivery delivered Breast abscess Home Medications ?Medication ?Instructions ?Recorded ?Last Taken ?Type epinephrine 0.3 mg/0.3 mL 0.3 ml IM PRN anaphylaxis 03/10/25 Unknown History injection, auto-injector escitalopram oxalate 20 mg tablet 20 mg PO DAILY 03/10/25 Unknown History lamotrigine 200 mg tablet 200 mg PO DAILY 03/10/25 Unknown History risperidone 0.5 mg tablet 0.5 mg PO QHS 03/10/25 Unknown History amoxicillin 875 mg-potassium 1 tab PO BID 7 days #14 tabs 09/27/25 Unknown Rx clavulanate 125 mg tablet divalproex 500 mg tablet,extended 2,000 mg PO QPM 09/27/25 Unknown History release 24 hr oxycodone-acetaminophen 5 mg-325 1 tab PO Q6H PRN pain 3 days #12 09/27/25 Unknown Rx mg tablet (Percocet) tabs hydrocodone-acetaminophen 5-325mg 1 tab PO Q4H PRN PRN Pain 2 days 10/03/25 Unknown Rx 5mg-325mg #14 TABLETS amoxicillin 875 mg-potassium 875 mg (0.875 x 875-125 mg) PO 11/11/25 Unknown Rx clavulanate 125 mg tablet Q12H #20 TABLETS hydrocodone-acetaminophen 5-325mg 1 tab PO Q4H PRN PRN Pain 2 days 11/11/25 Unknown Rx 5mg-325mg #10 TABLETS fluconazole 150 mg tablet 150 mg PO Q3D 2 doses #2 tabs 11/22/25 Unknown Rx promethazine 25 mg tablet 25 mg PO Q6H PRN PRN Nausea #15 11/22/25 Unknown Rx TABLETS Allergy/AdvReac Type Severity Reaction Status Date / Time cephalexin AdvReac Rash Verified 11/22/25 12:49 clindamycin AdvReac Rash Verified 11/22/25 12:49 doxycycline AdvReac Rash Verified 11/22/25 12:49 vancomycin AdvReac Rash Verified 11/22/25 12:49 Social History household members: children Smoking Status: Never smoker substance use type: does not use ROS ROS ED Constitutional Constitutional ED: Denies chills, fever(s) or weight loss Eyes Eyes: Denies change in vision or diplopia ENT ENT ED: Reports rhinorrhea and sore throat; Denies ear pain Cardiovascular Cardiovascular: Denies chest pain, orthopnea, palpitations or racing heartbeat Respiratory/Chest Respiratory/Chest: Reports cough and sputum; Denies dyspnea or orthopnea Gastrointestinal Gastrointestinal: Reports diarrhea, nausea, vomiting and other Details: See history of present illness ; Denies abdominal pain Genitourinary Genitourinary ED: Denies dysuria, hematuria or urinary frequency Musculoskeletal Musculoskeletal: Denies arthralgias or myalgias Integumentary Denies abscess or rash Neurologic Neurologic: Denies headache(s) or weakness Psychiatric Psychiatric: Denies anxiety, depression, suicidal ideation or suicidal thoughts Endocrine Endocrinology: Denies polydipsia, polyphagia or polyuria Allergic/Immunologic Allergic/Immunologic ED: Denies mouth swelling, tongue swelling or urticaria EXAM Physical Exam Const Vital Signs: 11/22/25 12:49 11/22/25 14:31 11/22/25 14:38 Temperature 97.0 F L 97.8 F Temperature Source Temporal Pulse Rate 70 72 Respiratory Rate 18 18 Respiratory Effort Normal Non-Labored Respiratory Pattern Normal Blood Pressure 146/85 H 123/87 H Blood Pressure Mean 105 99 Pulse Ox 96 98 Oxygen Delivery Method Room Air Positive well nourished and well developed General Appearance ED: well developed and NAD HEENT Reports normocephalic, head/scalp atraumatic and moist mucous membranes HEENT Narrative: Mild oral pharyngeal erythema no exudate abscess or palatal petechiae is noted. Mild turbinate edema with rhinorrhea Eyes PERRL and EOMs intact bilaterally Neck no lymphadenopathy, supple and no JVD Resp normal respiratory effort and clear to auscultation bilaterally Resp Narrative: Dry cough Cardio regular rate, regular rhythm and no murmurs GI normal to inspection, nondistended, normoactive bowel sounds and non-tender Palpation: soft Back/Spine no CVA tenderness and normal ROM Extremity normal to inspection General Extremety ED: Negative for edema General Extremity: Negative for edema Neuro oriented x3 and CN's II-XII intact bilaterally Sensorium / Orientation: alert Motor Exam: strength 5/5 throughout Psych mental status grossly normal Mood & Affect: Negative for depressed or tearful Skin no rashes or lesions noted and no wounds MDM MDM MDM Narrative Medical decision making narrative: Differential diagnosis includes viral syndrome bronchitis dehydration pneumonia bronchospasm yeast vaginitis Patient's not tachycardic she has less than 2-second capillary refill and she is not hypotensive. She has clear lung sounds and is 98% on room air. My independent interpretation of the chest x-ray is no acute process. As she has been sick for longer than a week I do not feel COVID RSV or influenza swab is needed. I initially gave the patient a dose of Diflucan as well as Phenergan. She states that she vomited right afterwards. After I discussed with the patient going home and she to inform nursing that as soon as I left the room she vomited. I do not see significantly filled emesis bags. I will write for Phenergan at home give her additional dose of Zofran here as well as a prescription for Diflucan. History & Record Review Discussion w/independent historian: Patient Radiography Diagnostic Testing: Clinical Impression(s) from Imaging Studies Chest X-Ray 11/22/25 13:02 IMPRESSION: No acute pulmonary process Reading Location: [id number] Discharge Plan Triage Chief Complaint: Cold Sx ED Provider: Paddy Diego Dx/Rx/DC Orders Clinical Impression: Viral respiratory infection, Vomiting Instructions: ED Viral Syndrome (Adult), ED Vomiting (Adult) Prescriptions: New promethazine 25 mg tablet 25 mg PO Q6H PRN PRN (Reason: Nausea) Qty: 15 0RF fluconazole 150 mg tablet 150 mg PO Q3D Qty: 2 0RF No Action lamotrigine 200 mg tablet 200 mg PO DAILY epinephrine 0.3 mg/0.3 mL auto-injector 0.3 ml IM PRN (Reason: anaphylaxis) risperidone 0.5 mg tablet 0.5 mg PO QHS escitalopram oxalate 20 mg tablet 20 mg PO DAILY divalproex 500 mg tablet extended release 24 hr 2,000 mg PO QPM amoxicillin-pot clavulanate 875-125 mg tablet 1 tab PO BID 7 Days Qty: 14 0RF oxycodone-acetaminophen [Percocet] 5-325 mg tablet 1 tab PO Q6H PRN (Reason: pain) 3 Days Qty: 12 0RF hydrocodone-acetaminophen 5-325 mg tablet 1 tab PO Q4H PRN PRN (Reason: Pain) 2 Days Qty: 14 0RF hydrocodone-acetaminophen 5-325 mg tablet 1 tab PO Q4H PRN PRN (Reason: Pain) 2 Days Qty: 10 0RF amoxicillin-pot clavulanate 875-125 mg tablet 875 mg PO Q12H Qty: 20 0RF Primary Care Provider: Care Physician,No Primary Referrals: Neil Henley MD [Med Staff - Lighting Designer, Family Practice] - As Needed Referral Note: for primary care Care Physician,No Primary [Primary Care Provider, Medical] Print Language: Bolivian Disposition Disposition: Home, Self Care Discharge Date/Time: 11/22/25 14:42
[2025-11-22] MEDS: FLUCONAZOLE 150 MG TABLET PO (13:51)
--- NOTE | 2025-11-22 13:59 | CM.ED ---
Social work Reason for referral: no PCP Referral source: case find SW entered patient's room, introducing self and role at [facility]. Patient confirmed lacking a PCP due to recently moving to the area. Patient accepted resources of [facility] Provider Directory and [place] information. Patient denied further needs at this time. Melva Zepeda, NETWORK FIELD ENGINEER, COTTRELL OPERATOR
[2025-11-22 14:31] VITALS: BP 123/87; PULSE 72; RESP 18; TEMP 36.6; O2SAT 98
== END 2025-11-22 14:42 | disposition home or self-care (01) ==
PROVIDERS: Emergency Provider Emergency Medicine; Visit Provider Emergency Medicine
DX: R11.10 Vomiting, unspecified (principal); J06.9 Acute upper respiratory infection, unspecified; B37.31 Acute candidiasis of vulva and vagina
CPT/HCPCS: 71046; 99282